=== PATIENT | female | born 1955 | race Caucasian/White ===

== ENCOUNTER 2017-05-24 12:16 | Emergency (ER) | payer MEDICARE, SELFPAY ==
[2017-05-24 12:18] VITALS: BP 151/58; PULSE 71; RESP 16; TEMP 36.2; O2SAT 100; BMI 34.4
--- NOTE | 2017-05-24 12:22 | RAD_ITS ---
STUDY: X-RAY - RIGHT HAND REASON FOR EXAM: Female, 62 years old. Pain and bruising following a fall. TECHNIQUE: 3 view(s) of the hand. COMPARISON: None. FINDINGS: Nondisplaced, comminuted fracture of the distal radial metaphysis with extension to the articular surface. Normal radiocarpal articulation. Normal distal radioulnar joint. Normal visualized carpal bones. Normal carpal articulations Normal carpometacarpal articulation of the thumb. Normal second through fifth carpometacarpal joints. Normal metacarpi. Normal metacarpophalangeal joint of the thumb. Normal interphalangeal joint of the thumb. Normal proximal and distal phalanges of the thumb. Normal metacarpophalangeal joints of the second through fifth fingers. Normal proximal and distal interphalangeal joints of the second through fifth fingers. Normal phalanges of the second through fifth fingers. Soft tissue swelling. RAD/Hand Min 3 Views IMPRESSION: Nondisplaced comminuted fracture of the distal radius with extension to the articular surface. Soft tissue swelling. Electronically Signed: Cristhian Arreaga MD at 12:45 EST Tel [phone], Service support ,
[2017-05-24 12:55] VITALS: BP 145/70; PULSE 80; RESP 14; O2SAT 99
--- NOTE | 2017-05-24 15:31 | CM.ED ---
CM consulted for home health consideration. Discussed home health, PT/OT with patient. Patient states that she cannot drive at this time. Zaid, from [facility] accepts patient with presumed start of care on 05/27/17. Demographics verified by patient. Patient is agreeable with this plan of care. [id number] completed and faxed to [facility]. Noreen delivered platform attachment for rolling walker. Zaid, from [facility], at bedside to discuss start of care for home health services with the patient.
--- NOTE | 2017-05-24 16:03 | ED.DCSUM_ITS ---
- ER Visit Summary Date of Service: 05/24/17 Chief Complaint: Injury right wrist unable to use cane History of Present Illness: The patient is a 62 F right-hand dominant. She fell yesterday injuring her right wrist. She recently had a total knee arthroplasty of her left knee by Dr. Eric St. She states she needs a cane to walk with. She has had difficulty because of the injury to her right wrist. She denies head trauma. She denies neck pain. She denies paresthesia, anesthesia moderates present time of the injury. She is on no anticoagulant. She denies any cardiac restaurant symptoms. She denies hematemesis, melena hematochezia. Physical Examination: Patient is obese with a BMI of 34.4. Head is atraumatic normocephalic. Pupils are equal round reactive. Extraocular muscles are intact. TMs are pearly white with landmarks noted. Nares patent with no drainage. Posterior pharynx without erythema or exudate. Uvula is midline. There is no dysphonia or dysphasia. Trachea is midline. There is no stridor with auscultation of the neck. Heart is regular without murmur, gallop or rub. S1 and S2 are normal. Lungs are clear to auscultation with good movement of air bilaterally. GCS is 15. Patient is alert and oriented ?3. Motor is 5/5. Sensation is intact. DTRs are symmetric without clonus or Babinski. Cranial nerves II through XII are intact. Finger to nose to finger was performed adequately. There is pain palpation of the right wrist over the distal radius. There is no pain the patient over the phalanges, metacarpal bones or carpal bones. There is no pain the patient over the medial lateral epicondyles, olecranon process or radial head. Radial pulses palpable. Test Results: Per nurse protocol hand x-ray was obtained since she has marked ecchymosis swelling over the dorsum of the hand. X-ray interpreted by me reveals a nondisplaced intra-articular fracture of the distal radius. This is nondisplaced. Emergency Department Course and Treatment: Per nursing protocol. Patient was placed in a plaster sugar tong splint for mobilization. Since this is her dominant hand physical therapy was consulted to assess ability to walk with a platform walker since she cannot apply any pressure using her right upper extremity. 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 Treatment Plan: Patient was successful in ambulating with platform walker and arrangements have been made for home visit. Therefore, patient will be discharged to home Disposition: Discharge to home Impression: Nondisplaced distal intra-articular radial fracture right wrist Recent left total knee arthroplasty History of type 2 diabetes History of lupus History of anemia This note was generated with [employer] dictation software. It may contain incorrect words, spelling, and punctuation that were not noted in review of the chart prior to signing ED Disposition - Plan for ED Patient: Disposition: Home or Assisted Living Chief Complaint: Fall Instructions: ED Fx Colles Wrist No Redu Requ Referrals: Steve Turcios MD [Primary Care Provider] - Eric St MD [STAFF PHYSICIAN] - 5-7 Days
[2017-05-24 16:09] VITALS: BP 112/73; PULSE 73; RESP 16; O2SAT 96
== END 2017-05-24 16:09 | disposition home or self-care (01) ==
PROVIDERS: Emergency Provider Emergency Medicine; Family Provider Family Medicine; PCP Family Medicine
DX: S52.571A Other intraarticular fracture of lower end of right radius, initial encounter for closed fracture (principal); M32.9 Systemic lupus erythematosus, unspecified; M06.9 Rheumatoid arthritis, unspecified; E11.9 Type 2 diabetes mellitus without complications; D64.9 Anemia, unspecified; E66.9 Obesity, unspecified; Z68.34 Body mass index [BMI] 34.0-34.9, adult; Z79.4 Long term (current) use of insulin; Z79.899 Other long term (current) drug therapy; Z96.652 Presence of left artificial knee joint
CPT/HCPCS: 29125; 73130; 99282

== ENCOUNTER 2017-06-14 12:11 | Day surgery (SDC) | payer MEDICARE, SELFPAY ==
[2017-06-14 12:39] VITALS: BP 125/66; PULSE 83; RESP 16; TEMP 36.6; O2SAT 96; BMI 35.8
[2017-06-14 13:11] LABS: Bedside Glucose 136 mg/dL (70-110)
--- NOTE | 2017-06-14 14:00 | RAD_ITS ---
STUDY: X-RAY - RIGHT WRIST REASON FOR EXAM: Female, 62 years old. Status post open reduction internal fixation. TECHNIQUE: 2 view(s) of the wrist were obtained. COMPARISON: None. FINDINGS: 2 views of the right wrist were obtained intraoperatively on a C-arm for open reduction internal fixation of fracture of the distal radius. There is a side plate and screws in the distal radius. The fluoroscopy time was 20.7 seconds. RAD/Wrist 2 Views IMPRESSION: Intraoperative exam as described above. Electronically Signed: Juan Ramon Reynaga MD at 11:08 EST Tel , Service support ,
[2017-06-14] MEDS: Cefazolin 2 GM in 0.9% Normal Saline 100 ML IV (14:06)
--- NOTE | 2017-06-14 15:24 | RAD_ITS ---
STUDY: X-RAY - RIGHT WRIST REASON FOR EXAM: Female, 62 years old. Foreign body assessment after surgery TECHNIQUE: One view of the RIGHT wrist was obtained. COMPARISON: Right hand images dated May 24, 2017 FINDINGS: Bones: Hardware is now present over the distal shaft of the right radius with anatomic alignment of the fracture. Joints: The visualized joints are unremarkable. Soft tissues: There is mild soft tissue swelling. Foreign body: None RAD/Wrist 2 Views IMPRESSION: There are postsurgical changes in the distal right radius. There is no retained sponge visualized. Electronically Signed: Elisa Reid MD at 16:18 EST Tel Direct: [phone], Service support ,
--- NOTE | 2017-06-14 15:24 | PCM.OPRPT ---
Report of Operation Date of Procedure: 06/14/17 Pre-Operative Diagnosis: Right intra-articular distal radius fracture 2 fragments Post-Operative Diagnosis: Right intra-articular distal radius fracture 2 fragments Surgery/Procedure Performed:: Open reduction internal fixation right distal radius fracture 2 fragments intra-articular Description of Surgical Findings:: well Reduced fracture, antiglide plate software test and validation engineer: Pietro Brooks Type of Anesthesia:: General/Regional Anesthesiologist: Aashish Molina Special Medications: 2 g Ancef Specimen's removed: None Estimated Blood Loss (mL): 10 mL Fluids Replaced: 1 L crystalloid Description of Procedure: The physician economist research assistant was vital throughout this case as an economist research assistant. He offered appropriate traction and visualization of soft tissues. He was important position the patient during the procedure and preoperatively. He was important in helping with traction during reduction of the fracture. Is also vital and closure of the wound and a my direct supervision. 32-year-old female who presented to my office 2-1/2 weeks ago initially with a nondisplaced intra-articular fracture on the ulnar side of the wrist in the lunate fossa. After 2 weeks in the cast she showed significant proximal migration of the fracture and at that time we elected to discuss open reduction internal fixation which was recommended by myself. Risks and benefits were discussed the patient including but not limited to blood loss, DVTs, PEs, neurovascular damage, infection and risks of general anesthesia including loss of life. We also discussed nonunion, malunion and failure of hardware. We also discussed risk of residual stiffness and loss of motion of the wrist. Patient demonstrated understanding was able signed informed consent. Surgery: On the date of the procedure patient's right wrist was marked in the preoperative area. Cast is cut off in the preoperative area. Patient was brought back to the operating room after receiving a block for operative pain control. He was transferred to the table in supine position. Anesthesia assumed control of the C-spine airway remained to control remainder of the procedure. Tourniquet was placed on the right upper arm. All bony prominences are identified well-padded in the right arm was prepped in a sterile fashion while the surgeon scrubbed. Upon reentering the room the right upper extremity was draped in a standard orthopedic fashion. Incision was marked out over the FCR. Esmarch bandage was used to examine at the extremity after timeout was called. During the timeout everyone agreed upon side, site, procedure to be performed, patient's identity and antibiotics given. After the tourniquet was placed up to 250 mmHg patient was taken through skin subcu tissue fat on the fascia. Superficial fascia of the FCR was incised in FCR was retracted ulnarly. The fascia was incised and FPL was retracted ulnarly. Pronator quadratus was identified and released from the radial aspect of the radius. Once this was taken down and retracted ulnarly we are able to identify the fracture in the distal ulnar portion of the distal radius. Fracture did have some early fracture callus which was removed and the fracture was re-created. At this time [id number] clamps were used to reduce the fracture bringing it distally and compressing it. Once this was completed, live fluoroscopy was used to verify the fracture reduction and under live fluoroscopy a K wire was placed across the fracture into the ulna to help maintain the reduction. Once this was done the fracture pointed reduction clamp could be removed and live x-ray verified that the fracture reduction was maintained. Once were happy with our fracture reduction a 2 hole 2.4 mm L plate from [employer] was selected. K wires were used to provisionally fix it. Live x-ray was used to verify the placement of the plate. Once we are happy with this the most proximal slotted screw was placed. This help reduce the fracture the distal plate was conformed to the bone with the plate benders. An additional cortex screw was placed proximally. Live x-ray was then used to verify the fracture reduction. Based on the reduction maneuver and technique of antiglide plate no further screws were needed. At this time the wound was copiously irrigated out normal saline. Wound was then closed in a layer bland fashion using 2-0 Vicryl for the subcuticular layer and final skin closure was done with nylon suture. Xeroform dressing was placed, compressive dressing was placed. Tourniquet was let down. At the time of closure 1 Ray-Chitra was not accounted for an x-ray was taken no Ray-chitra were in the wound. After the x-ray was taken we did identify the placement of the final Ray-Chitra which was on the back table. Her splint was placed. Patient was awakened by anesthesia and transferred to PACU for recovery. Operative plan: Patient is nonweightbearing for a total of 6 weeks. She will return to the office in 2 weeks for wound check, suture removal and to begin physical therapy with range of motion. Grafts/Implants Used: [employer] 2.4 mm 2 hole L plate - Complications none - Admit VTE Documentation VTE Present on Admission: No VTE Mechan Device Prophylaxis: SCD's VTE Pharm Prophylaxis ordered?: No Reason prophylaxis not ordered:: Treatment Not Indicated
--- NOTE | 2017-06-14 15:38 | OP.PCM_ITS ---
Report of Operation Date of Procedure: 06/14/17 Pre-Operative Diagnosis: Right intra-articular distal radius fracture 2 fragments Post-Operative Diagnosis: Right intra-articular distal radius fracture 2 fragments Surgery/Procedure Performed:: Open reduction internal fixation right distal radius fracture 2 fragments intra-articular Description of Surgical Findings:: well Reduced fracture, antiglide plate durable medical equipment repairer: Pietro Brooks Type of Anesthesia:: General/Regional Anesthesiologist: Aashish Molina Special Medications: 2 g Ancef Specimen's removed: None Estimated Blood Loss (mL): 10 mL Fluids Replaced: 1 L crystalloid Description of Procedure: The physician investment sales assistant was vital throughout this case as an investment sales assistant. He offered appropriate traction and visualization of soft tissues. He was important position the patient during the procedure and preoperatively. He was important in helping with traction during reduction of the fracture. Is also vital and closure of the wound and a my direct supervision. 32-year-old female who presented to my office 2-1/2 weeks ago initially with a nondisplaced intra-articular fracture on the ulnar side of the wrist in the lunate fossa. After 2 weeks in the cast she showed significant proximal migration of the fracture and at that time we elected to discuss open reduction internal fixation which was recommended by myself. Risks and benefits were discussed the patient including but not limited to blood loss, DVTs, PEs, neurovascular damage, infection and risks of general anesthesia including loss of life. We also discussed nonunion, malunion and failure of hardware. We also discussed risk of residual stiffness and loss of motion of the wrist. Patient demonstrated understanding was able signed informed consent. Surgery: On the date of the procedure patient's right wrist was marked in the preoperative area. Cast is cut off in the preoperative area. Patient was brought back to the operating room after receiving a block for operative pain control. He was transferred to the table in supine position. Anesthesia assumed control of the C-spine airway remained to control remainder of the procedure. Tourniquet was placed on the right upper arm. All bony prominences are identified well-padded in the right arm was prepped in a sterile fashion while the surgeon scrubbed. Upon reentering the room the right upper extremity was draped in a standard orthopedic fashion. Incision was marked out over the FCR. Esmarch bandage was used to examine at the extremity after timeout was called. During the timeout everyone agreed upon side, site, procedure to be performed, patient's identity and antibiotics given. After the tourniquet was placed up to 250 mmHg patient was taken through skin subcu tissue fat on the fascia. Superficial fascia of the FCR was incised in FCR was retracted ulnarly. The fascia was incised and FPL was retracted ulnarly. Pronator quadratus was identified and released from the radial aspect of the radius. Once this was taken down and retracted ulnarly we are able to identify the fracture in the distal ulnar portion of the distal radius. Fracture did have some early fracture callus which was removed and the fracture was re-created. At this time phsft-[id number] clamps were used to reduce the fracture bringing it distally and compressing it. Once this was completed, live fluoroscopy was used to verify the fracture reduction and under live fluoroscopy a K wire was placed across the fracture into the ulna to help maintain the reduction. Once this was done the fracture pointed reduction clamp could be removed and live x-ray verified that the fracture reduction was maintained. Once were happy with our fracture reduction a 2 hole 2.4 mm L plate from [employer] was selected. K wires were used to provisionally fix it. Live x-ray was used to verify the placement of the plate. Once we are happy with this the most proximal slotted screw was placed. This help reduce the fracture the distal plate was conformed to the bone with the plate benders. An additional cortex screw was placed proximally. Live x-ray was then used to verify the fracture reduction. Based on the reduction maneuver and technique of antiglide plate no further screws were needed. At this time the wound was copiously irrigated out normal saline. Wound was then closed in a layer bland fashion using 2-0 Vicryl for the subcuticular layer and final skin closure was done with nylon suture. Xeroform dressing was placed, compressive dressing was placed. Tourniquet was let down. At the time of closure 1 Ray-Chitra was not accounted for an x-ray was taken no Ray-chitra were in the wound. After the x-ray was taken we did identify the placement of the final Ray-Chitra which was on the back table. Her splint was placed. Patient was awakened by anesthesia and transferred to PACU for recovery. Operative plan: Patient is nonweightbearing for a total of 6 weeks. She will return to the office in 2 weeks for wound check, suture removal and to begin physical therapy with range of motion. Grafts/Implants Used: [employer]ynthes 2.4 mm 2 hole L plate - Complications none - Admit VTE Documentation VTE Present on Admission: No VTE Mechan Device Prophylaxis: SCD's VTE Pharm Prophylaxis ordered?: No Reason prophylaxis not ordered:: Treatment Not Indicated
[2017-06-14 15:43] VITALS: BP 125/66; BP 127/51; PULSE 79; RESP 16; O2SAT 94
[2017-06-14] MEDS: Ketorolac 30 MG/ML Syringe IV (15:55)
[2017-06-14 16:00] VITALS: BP 115/46; BP 125/66; PULSE 70; RESP 16; O2SAT 94
[2017-06-14 16:11] LABS: Bedside Glucose 120 mg/dL (70-110)
[2017-06-14 16:17] VITALS: BP 105/81; BP 125/66; PULSE 69; RESP 16; TEMP 36.4; O2SAT 97
[2017-06-14 16:52] VITALS: BP 125/66
== END 2017-06-14 17:05 | disposition home or self-care (01) ==
LOC: SDC 12:11 → AC 12:14
PROVIDERS: Family Provider Family Medicine; PCP Family Medicine; Visit Provider Specialist
PROC: (CPT 25608; principal; 2017-06-14 13:45)
DX: S52.571A Other intraarticular fracture of lower end of right radius, initial encounter for closed fracture (principal); W19.XXXA Unspecified fall, initial encounter; Y93.9 Activity, unspecified; Y92.9 Unspecified place or not applicable; Y99.9 Unspecified external cause status; E11.9 Type 2 diabetes mellitus without complications; M79.7 Fibromyalgia; E78.00 Pure hypercholesterolemia, unspecified; M51.36 Other intervertebral disc degeneration, lumbar region; M19.90 Unspecified osteoarthritis, unspecified site; G25.81 Restless legs syndrome; K21.9 Gastro-esophageal reflux disease without esophagitis; F32.9 Major depressive disorder, single episode, unspecified; F41.9 Anxiety disorder, unspecified; Z78.0 Asymptomatic menopausal state; Z79.4 Long term (current) use of insulin; Z79.891 Long term (current) use of opiate analgesic; Z79.899 Other long term (current) drug therapy; Z87.891 Personal history of nicotine dependence; Z86.2 Personal history of diseases of the blood and blood-forming organs and certain disorders involving the immune mechanism
CPT/HCPCS: 25608; 64417; 73100; 76000; 82962; J3010; J7120; J2405

== ENCOUNTER → 2017-09-16 15:57 | Outpatient (CLI) | payer MEDICARE, SELFPAY ==
--- NOTE | 2017-09-16 15:57 | DT_ITS ---
This patient was seen during an EMR downtime September 09, 2017 - September 16, 2017. This patient may have a combination of paper and electronic documentation or all paper documentation. All documentation is viewable within the e-chart portion of [facility] for each patient visit.
[2017-09-16 16:55] LABS: Amphetamine Urine VISTA NEGATIVE (<1000 ng/mL); Barbiturate Urine VISTA NEGATIVE (< 200 ng/mL); Benzodiazepine Urine VISTA NEGATIVE (< 200 ng/mL); Cocaine Urine VISTA NEGATIVE (< 300 ng/mL); Ecstacy Urine VISTA NEGATIVE (< 500 ng/mL); Methadone Urine VISTA NEGATIVE (< 300 ng/mL); PCP Urine VISTA NEGATIVE (< 25 ng/mL); THC Urine VISTA NEGATIVE (< 50 ng/mL); Vista UDS pH Range 7
== END ==
PROVIDERS: Family Provider Family Medicine; PCP Family Medicine; Visit Provider Anesthesiology Pain Medicine
DX: F11.20 Opioid dependence, uncomplicated (principal)
CPT/HCPCS: 80307

== ENCOUNTER → 2017-10-10 11:39 | Outpatient (CLI) | payer MEDICARE, SELFPAY ==
[2017-10-10 12:51] LABS: Absolute Neutrophil Count 5.1 X10^3/uL (2.0-7.7); Basophil# 0.03 X10^3/uL; Basophil% 0.4 % (0-1); Eosinophil# 0.61 X10^3/uL; Eosinophils% 7.8 % (0-5); Hematocrit 39.5 % (37-47); Hemoglobin 11.5 g/dl (12.0-15.0); Lymphocyte % 20.3 % (19-41); Mean Corp Hgb Conc 29.1 g/gl (32-36); Mean Corpuscular Hgb 26.4 pg (27.0-32.0); Mean Corpuscular Volume 90.8 fL (81-99); Mean Platelet Vol. 10.8 fl (6.2-12.0); Monocyte# 0.53 X10^3/uL; Monocyte% 6.7 % (0-10); Neutrophil # 5.08 X10^3/uL (2.7-7.7); Neutrophil % 64.5 % (47-70); Platelet Count 269 K/mm3 (150-450); RBC Distribution Width CV 19.7 % (11.6-14.6); RBC Distribution Width SD 64.6 fl (35.1-43.9); Red Blood Count 4.35 M/mm3 (4.2-5.4); White Blood Count 7.9 K/mm3 (4.4-11.0)
[2017-10-10 12:53] LABS: POSITIVE COUNT NO; POSITIVE DIFFERENTIAL NO; POSITIVE MORPHOLOGY NO
[2017-10-10 13:26] LABS: AST(SGOT) 31 U/L (15-37); Alanine Aminotransfer ALT/SGPT 32 U/L (13-56); Albumin, Serum 3.7 g/dL (3.2-5.0); Alkaline Phosphatase 177 U/L (45-117); Anion Gap 9 (5-15); BUN 14 mg/dL (7-18); BUN/Creat Ratio 19.1 RATIO (10-20); Bilirubin, Direct 0.14 mg/dL (0.00-0.30); Calcium,Total 8.9 mg/dL (8.5-10.1); Chloride 105 mmol/L (98-107); Cholesterol 176 mg/dL (200); Creatinine, Serum 0.73 mg/dL (0.55-1.02); EST Glomerular Filtration Rate 86 mL/min (>60); Est Glom Filt Rate - Afr Amer 104 mL/min (>60); Glucose 69 mg/dL (74-106); High Density Lipoprotein 48 mg/dL; Protein, Total 7.7 g/dL (6.4-8.2); Sodium Level 142 mmol/L (136-145); T4 Total, Thyroxin 12.5 ug/dL (4.8-13.9); Thyroid Stim Hormone (TSH) 1.08 uIU/mL (0.358-3.74); Triglycerides 162 mg/dL; Very Low Density Lipoprotein 32 mg/dL (5-40)
== END ==
PROVIDERS: Family Provider Family Medicine; PCP Family Medicine; Visit Provider Internal Medicine Cardiovascular Disease
DX: E11.9 Type 2 diabetes mellitus without complications (principal); R06.00 Dyspnea, unspecified; M32.9 Systemic lupus erythematosus, unspecified; I51.9 Heart disease, unspecified; I45.10 Unspecified right bundle-branch block; E78.5 Hyperlipidemia, unspecified; E66.01 Morbid (severe) obesity due to excess calories
CPT/HCPCS: 36415; 80048; 80061; 80076; 84436; 84443; 85025

== ENCOUNTER → 2017-10-24 13:25 | Outpatient (CLI) | payer MEDICARE, MEDICAID, SELFPAY ==
--- NOTE | 2017-10-24 13:27 | STE_ITS ---
Reason For Study: Dyspnea On Exertion; Chest Pain Stress Results Protocol: Dobutamine Stress Echo Maximum Predicted HR: 159 bpm Target HR: 135 bpm% Maximum Pre dicted HR: 84 % DurationHeart Rate Stage (mm:ss) (bpm) BPCom ment Baseline 71 169/68 No Chest Pain DSE 10 MCG 3:39 77 147/67No Chest Pain DSE 20 MCG 3:00 10 7 183/72No Chest Pain DSE 30 MCG 3:00 12 9 185/67No Chest Pain DSE 40 MCG 2:03 13 4 186/70No Chest Pain Recovery 100 153/7 4No Chest Pain Stress Duration: 11:42 mm:ss Maximum Stress HR: 134 bpmME TS: 1 Baseline Echocardiogram Findings The estimated ejection fraction is 65 %. Stress Echo Wall motion Data Resting WMIntermediate WMStress WM Resting Wall Motion Wall Motion Stress No regional wall motion No regional wall motion abnormalities noted. abnormalities noted. EKG Data Normal intervals are noted. The patient was titrated from 10 mcg to a maximum of 40 mcg of dobutamine during the stress. The maximum heart rate attained was 134 beats per minute. This was 84% of maximum predicted heart rate. During dobutamine infusion, there were no ST or T wave changes noted to suggest ischemia. No clinical angina was noted. Interpretation Summary The estimated ejection fraction is 65 %. Normal, adequate, dobutamine echocardiogram. Negative for ischemia by EKG and echocardiographic criteria. No anginal symptoms noted. Rare PACs and PVCs during dobutamine. Hypertensive blood pressure response to dobutamine. Final LVEF is 75%. No complications. Ordering Physician: Davey Ocampo Referring Physician: Davey Ocampo Performed By: Adenike Alonso RDCS
== END ==
PROVIDERS: Family Provider Family Medicine; PCP Family Medicine; Visit Provider Internal Medicine Cardiovascular Disease
DX: R06.09 Other forms of dyspnea (principal); I51.9 Heart disease, unspecified; I45.10 Unspecified right bundle-branch block; E66.01 Morbid (severe) obesity due to excess calories
CPT/HCPCS: 93017; 93350; J7030; A4216

== ENCOUNTER 2017-12-18 08:36 | Inpatient (IN) | payer MEDICARE, MEDICAID, SELFPAY ==
[2017-12-18] VITALS (14 sets, daily range): BP systolic 126–157; BP diastolic 47–76; PULSE 61–80; RESP 10–26; TEMP 36.7–37.8; O2SAT 92–99; BMI 38.2; BMI 38.9; BMI 39.0
--- NOTE | 2017-12-18 08:51 | EKG12_ITS ---
Test Reason : ADMIT EKG STIM OFF Blood Pressure : / mmHG Vent. Rate : 073 BPM Atrial Rate : 073 BPM P-R Int : 196 ms QRS Dur : 140 ms QT Int : 420 ms P-R-T Axes : 062 018 029 degrees QTc Int : 462 ms Normal sinus rhythm Right bundle branch block Abnormal ECG When compared with ECG of 26-MAR-2017 10:01, No significant change was found Confirmed by JEISON YIN, NIKKI ([id number]), purchasing expeditor EDI JONES ([id number]) on 12/23/2017 3:57:15 PM Referred By: DR RODRIGUEZ Confirmed By:NIKKI MCHUGH MD
--- NOTE | 2017-12-18 08:51 | RAD_ITS ---
STUDY: X-RAY CHEST REASON FOR EXAM: Female, 62 years old. Cough. TECHNIQUE: PA and lateral views of the chest. COMPARISON: Comparison is made with prior study dated November 26, 2016. FINDINGS: EKG electrodes are seen. Electrodes from a TENS unit are seen. The tip is at the T7-T8 level. There now is evidence of a consolidation in the right upper lobe and in the superior segment of the right lower lobe. Follow-up is recommended. There is no demonstrated pleural abnormality. Normal size heart. Normal mediastinum and robert. Normal visualized pulmonary arteries. There is atherosclerotic calcification of the aortic arch with tortuosity. Normal visualized thoracic spine. Normal visualized ribs, clavicles, and shoulders. There is no demonstrated abnormality of the visualized soft tissue structures of the upper abdomen. RAD/Chest PA and Lateral IMPRESSION: Consolidation in the right upper lobe and superior segment of the right lower lobe. Follow-up is recommended. Electronically Signed: Cristhian Arreaga MD at 10:30 EDT Tel [phone], Service support ,
--- NOTE | 2017-12-18 08:54 | ED.DCSUM_ITS ---
- ER Visit Summary Date of Service: 12/18/17 Chief Complaint: Cough History of Present Illness: The patient is a [address] Turcios and Dr. Sommers. She reports she has a cough began approximately 1 week ago. Is nonproductive. She has had subjective fever and chills. She reports that she has moderate to severe shortness of breath. This is worsened by exertion. She does not use an inhaler. She does not smoke. She reports she has chest pain with coughing only. Physical Examination: Vitals: Stable. Afebrile. General: Well-nourished and well-developed. Head: Normocephalic atraumatic. Neck: Supple, no lymphadenopathy. No JVD. Nontender. Cardiovascular: Regular rate and rhythm. No murmurs. Respiratory: Mild respiratory distress. Rhonchi bilaterally. Mild end expiratory wheezing with decreased air movement. Abdominal: Soft, nontender, nondistended, normal bowel sounds. No guarding, rebound, or peritoneal signs. Back: Nontender. Extremities: Nontender, no edema. Skin: Normal color, no rash. Neurologic: Alert and oriented ?3. Cranial nerves II through XII are intact. Normal strength and sensation. Psych: Normal affect. Test Results: CBC is remarkable for a white count of 15.7 with 87 neutrophils and 5 lymphocytes. Hemoglobin is 11.3. Chem-7 is more for BUN of 25, creatinine 1.34, glucose 144. Lactic acid is 2.3. Chest x-ray shows right upper and lower lobe infiltrates. Emergency Department Course and Treatment: Patient had an IV placed. She was given albuterol, Atrovent aerosols. She was given Solu-Medrol and morphine IV. Patient had blood cultures obtained. She was given Rocephin and Zithromax IV. Treatment Plan: Patient will be discussed with the hospitalist and admitted for further evaluation and treatment. Disposition: Admitted in improved condition. Impression: 1. Pneumonia, community-acquired. 2. Severe sepsis. 3. Acute renal insufficiency. 4. Critical care time 30 minutes. This note was generated with [employer] dictation software. It may contain incorrect words, spelling, and punctuation that were not noted in review of the chart prior to signing ED Disposition - Plan for ED Patient: Chief Complaint: Shortness of Breath Referrals: Steve Turcois MD [Primary Care Provider] -
[2017-12-18] MEDS: Morphine 4 MG/ML Syringe IV (09:01)
[2017-12-18] MEDS: MethylPREDNISolone 125 MG/2 ML Vial IV (09:01)
[2017-12-18 09:26] LABS: Absolute Lymphocyte Count 0.82 X10^3/ul (0.83-4.51); Absolute Neutrophil Count 13.8 X10^3/uL (2.0-7.7); Basophil# 0.02 X10^3/uL; Basophil% 0.1 % (0-1); Eosinophil# 0.59 X10^3/uL; Eosinophils% 3.8 % (0-5); Hematocrit 38.4 % (37-47); Hemoglobin 11.3 g/dl (12.0-15.0); Lymphocyte # 0.82 X10^3/ul (4.0); Lymphocyte % 5.2 % (19-41); Mean Corp Hgb Conc 29.4 g/gl (32-36); Mean Corpuscular Volume 91.9 fL (81-99); Monocyte# 0.41 X10^3/uL; Monocyte% 2.6 % (0-10); Neutrophil # 13.76 X10^3/uL (2.7-7.7); Platelet Count 235 K/mm3 (150-450); RBC Distribution Width CV 16.7 % (11.6-14.6); RBC Distribution Width SD 56.4 fl (35.1-43.9); Red Blood Count 4.18 M/mm3 (4.2-5.4); White Blood Count 15.7 K/mm3 (4.4-11.0)
[2017-12-18 09:27] LABS: POSITIVE COUNT NO; POSITIVE DIFFERENTIAL NO; POSITIVE MORPHOLOGY NO
[2017-12-18 09:37] LABS: Anion Gap 12 (5-15); BUN 25 mg/dL (7-18); BUN/Creat Ratio 18.7 RATIO (10-20); Calcium,Total 9.3 mg/dL (8.5-10.1); Chloride 103 mmol/L (98-107); Creatinine, Serum 1.34 mg/dL (0.55-1.02); EST Glomerular Filtration Rate 43 mL/min (>60); Est Glom Filt Rate - Afr Amer 52 mL/min (>60); Estimated Creatinine Clearance 39.67 ml/min; Glucose 144 mg/dL (74-106); Potassium 3.7 mmol/L (3.5-5.1); Sodium Level 140 mmol/L (136-145)
[2017-12-18 09:42] LABS: Lactic Acid 2.3 mmol/L (0.4-2.0)
--- NOTE | 2017-12-18 09:42 | ED.RN ---
lactic acid 2.[address] lab[address] lee aware
--- NOTE | 2017-12-18 10:45 | PCM.HP.STD ---
Problem List (1) Severe sepsis Status: Acute (2) CAP (community acquired pneumonia) Status: Acute (3) Dyspnea on exertion Status: Acute (4) Diastolic dysfunction Status: Chronic (5) Right bundle branch block Status: Chronic (6) Obesity, morbid, BMI 40.0-49.9 Status: Chronic (7) Lupus Status: Chronic (8) Hyperlipidemia Status: Chronic (9) Diabetes mellitus, type II Status: Chronic History of Present Illness Date of Admission: 12/18/17 Chief Complaint: Shortness of breath The patient is a 62 year old F past medical history significant for rheumatoid arthritis, SLE who presented with shortness of breath. Patient symptoms started about 10 days prior to her admission with a cough which has remained nonproductive. She did experience episodes of intermittent fever as well as chills. Patient also did not increasing fatigue. On the morning of her admission woke up with significant shortness of breath therefore presented to the emergency department. An assessment of severe sepsis secondary to community-acquired pneumonia was made antibiotics and fluids initiated to call and patient admitted to the stepdown unit for subsequent management Past Medical History Past Medical History (Chronic Problems): Chronic Problems (Last Updated 10/08/17 @ 13:30 by Mary Bustamante) Diastolic dysfunction (Chronic) Right bundle branch block (Chronic) Obesity, morbid, BMI 40.0-49.9 (Chronic) Lupus (Chronic) Hyperlipidemia (Chronic) Diabetes mellitus, type II (Chronic) Medical History: Medical History (Last Updated 10/08/17 @ 13:30 by Mary Bustamante) Diastolic dysfunction (Chronic) I51.9 Right bundle branch block (Chronic) I45.10 Obesity, morbid, BMI 40.0-49.9 (Chronic) E66.01 Lupus (Chronic) M32.9 Hyperlipidemia (Chronic) E78.5 Diabetes mellitus, type II (Chronic) E11.9 Anemia D64.9 Anxiety F41.9 Chronic pain G89.29 DDD (degenerative disc disease) Depression F32.9 Esophagitis K20.9 Fibromyalgia M79.7 GI bleed K92.2 Osteoarthritis M19.90 Peripheral neuropathy G62.9 Rheumatoid arteritis I00 Rheumatoid arthritis M06.9 Allergies No Known Allergies Allergy (Verified 12/18/17 08:38) Home Medications: Ambulatory Orders Medication Instructions Recorded Fluoxetine [Prozac] 60 mg PO DAILY 06/24/17 Furosemide [Lasix] 20 mg PO DAILY 09/29/16 Gabapentin [Neurontin] 300 mg PO TID 09/29/16 Hydroxychloroquine [Plaquenil] 200 mg PO DAILYCM 09/29/16 Insulin Glargine [Lantus SoloStar 64 units SC QHS 09/29/16 Pen] Insulin Lispro [Humalog KwikPen] 5 unit SQ TIDCM 09/29/16 Metformin HCl [Metformin HCl ER] 500 mg PO BID 09/29/16 Omeprazole [Prilosec] 40 mg PO DAILY 09/29/16 Pravastatin [Pravachol] 20 mg PO QHS 09/29/16 buPROPion XL [Wellbutrin Xl] 150 mg PO DAILY 09/29/16 Meloxicam 7.5 mg PO DAILY 03/26/17 cholecalciferol (vitamin D3) 50,000 unit PO QWEEK 10/07/17 50,000 unit capsule morphine ER 15 mg tablet,extended 15 mg PO Q12H tab 10/07/17 release tizanidine 4 mg capsule 4 mg PO BID cap 10/07/17 Surgical History: Surgical History (Last Reviewed 12/18/17 @ 11:31 by Bryan Bowers MD) H/O repair of right rotator cuff Z98.890 History of carpal tunnel surgery Z98.890 History of left heart catheterization Onset Date: 08/01/07 Z98.890 History of lumbar fusion Z98.1 History of open reduction and internal fixation (ORIF) procedure Z98.890 right ankle History of total knee replacement Z96.659 History of tubal ligation Z98.51 Hx of cholecystectomy Z90.49 S/P insertion of spinal cord stimulator Z98.890 Surgical History: cholecystectomy, - - Back surgery (fusion, rods) x 2, R ankle surgery, R shoulder surgery, BL wrist CT release. 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 FORM MAKER history Smoking Status: Former smoker - *Family History Maternal Family History: Family History (Last Reviewed 10/08/17 @ 13:23 by Mary Bustamnate) Father Cancer Mother Hypertension History Items: No pertinent history Review of Systems Constitutional: Reports: Anorexia, Chills, Fever, Fatigue HEENT: Denies: Head Aches, Sinus Congestion, Sinus Drainage Respiratory: Reports: Cough, Pleuritic Pain, Shortness of Breath Gastrointestinal: Denies: Abdominal Pain, Hematemesis, Hematochezia, Nausea, Melena, Vomiting Genitourinary: Denies: Dysuria, Frequency, Hematuria, Urgency Musculoskeletal: Denies: Joint Pain, Joint Tenderness Skin: Denies: Rash Neurological: Denies: Focal weakness, Numbness, Tingling Psychiatric: Denies: Homicidal Ideations, Suicidal Ideations Hematologic/ Lymphatic: Denies: Easy Bruising, Easy Bleeding VTE Information - Inpt Only VTE Present on Admission: No VTE Mechan Device Prophylaxis: Knee High NORAH Hose VTE Pharm Prophylaxis ordered?: Yes Patient Problems: Active and Suspected Problems (Last Updated 10/08/17 @ 13:30 by Mary Bustamante) Severe sepsis (Acute) CAP (community acquired pneumonia) (Acute) Objective: GENERAL: Child appears ill looking HEENT: Clear conjunctiva, NECK; supple, normal thyroid, CHEST: Diminished to auscultation bilaterally, HEART: Regular S1 S2, no audible murmurs ABDOMEN: soft, non-tender, normoactive bowel sounds, RECTAL: deferred EXTREMITIES: No edema, no clubbing, no cyanosis. 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 SKIN: No Rash - Physical Exam Vital Signs Temp Pulse Resp BP Pulse Ox 100.1 F H 78 12 153/64 H 94 12/18/17 08:37 12/18/17 09:07 12/18/17 09:07 12/18/17 08:37 12/18/17 08:37 Oxygen Flow Rate (L/min) 2 Oxygen Delivery Method Nasal Cannula Weight: 104.326 kg Body Mass Index (BMI) 38.2 Finger Stick Blood Glucose 216 Laboratory Tests Past 24 Hrs 12/18/17 12/18/17 12/18/17 09:07 09:07 09:07 WBC 15.7 H RBC 4.18 L Hgb 11.3 L Hct 38.4 MCV 91.9 MCH 27.0 MCHC 29.4 L RDW 16.7 H RDW Differential 56.4 H Plt Count 235 MPV 10.0 Immature Gran % (Auto) 0.300 Neut % (Auto) 88.0 H Lymph % (Auto) 5.2 L Oliver % (Auto) 2.6 Eos % (Auto) 3.8 Baso % (Auto) 0.1 Absolute Neuts (auto) 13.8 H Absolute Lymphs (auto) 0.82 L Total Counted Not Reportable Sodium 140 Potassium 3.7 Chloride 103 Carbon Dioxide 25.0 Anion Gap 12 BUN 25 H Creatinine 1.34 H Estim Creat Clear Calc 39.67 Est GFR (MDRD) Af Amer 52 L Est GFR (MDRD) Non-Af 43 L BUN/Creatinine Ratio 18.7 Glucose 144 H Lactic Acid 2.3 H Calcium 9.3 Assessment/Plan All Active Problems (Last Updated 10/08/17 @ 13:30 by Mary Bustamante) Severe sepsis (Acute) CAP (community acquired pneumonia) (Acute) Dyspnea on exertion (Acute) Patient is a 62-year-old lady with multiple comorbidities presented with shortness of breath; imaging studies on admission demonstrated Consolidation in the right upper lobe and superior segment of the right lower lobe. Assessment of severe sepsis secondary to community-acquired pneumonia made. Patient admitted to stepdown unit for subsequent management 1. Severe sepsis secondary to community-acquired pneumonia. Patient has been admitted to stepdown unit being managed per protocol with broad-spectrum antibiotic therapy with Rocephin as well as Levaquin, cultures have been obtained in the ED. Patient also did receive IV fluid resuscitation 2. Community-acquired pneumonia with suspected streptococcal pneumonia patient was started on Rocephin and Levaquin admitted to the stent dilated management as discussed above 3. Acute kidney injury secondary to suspected ATN from sepsis. On IV fluids with monitoring of electrolyte 4. Systemic lupus patient is on Plaquenil did continue 5. Diabetes mellitus type II: Placed on long acting insulin, Accu-Cheks a.c. and at bedtime and covered with sliding scale insulin 5. Rheumatoid arthritis 6. Chronic pain syndrome secondary to patient's underlying rheumatoid and lupus 7. Degenerative joint disease 8. Morbid obesity with BMI of 30.3 9. Dyslipidemia-patient is on statin therapy, continued at home dose 10. DVT prophylaxis SC Lovenox Clinical Impression(s) from Imaging Studies Chest X-Ray 12/18/17 08:51 IMPRESSION: Consolidation in the right upper lobe and superior segment of the right lower lobe. Follow-up is recommended. Electronically Signed: Cristhian Arreaga MD at 10:30 EDT Tel [phone], Service support , Code Visit Inpatient E&M: [id number] Subs Hosp L3
[2017-12-18] MEDS: Ceftriaxone 1 GM/50 ML BAG IV ×2 (10:56→21:58)
[2017-12-18] MEDS: 0.9% Normal Saline 1,000 ML 999 ML IV (10:57)
[2017-12-18] MEDS: Ipratropium/Albuterol Sulfate 3 ML AMPUL.NEB INHALATION ×3 (11:18→19:53)
[2017-12-18 12:10] LABS: Bedside Glucose 126 mg/dL (70-110)
[2017-12-18] MEDS: Gabapentin 300 MG Capsule PO ×2 (13:02→16:22)
[2017-12-18] MEDS: Insulin Lispro 100 UNIT/ML INSULN.PEN SC ×2 (13:03→16:22)
[2017-12-18 13:12] LABS: Reflex Lactate? Y
[2017-12-18 14:02] LABS: Color, Urine Yellow (Yellow); Glucose, Dipstick Normal (Normal); Ketone-Dipstick Negative (Negative); Leukocyte Esterase-Dipstick Negative /ul (Negative); Nitrite-Dipstick Negative (Negative); Occult Blood-Urine Negative /ul (Negative); Protein-Dipstick 15 mg/dl (Negative); Urine Bilirubin Dipstick Negative (Negative); Urine Clarity Clear (Clear); Urine Urobilinogen Normal (Normal); Urine pH 6.5 (5.0 - 8.0)
[2017-12-18 14:50] LABS: Lactic Acid 3.3 mmol/L (0.4-2.0)
[2017-12-18] MEDS: Insulin Lispro 100 UNIT/ML INSULN.PEN SQ ×2 (16:26→22:07)
[2017-12-18 16:31] LABS: Bedside Glucose 275 mg/dL (70-110)
[2017-12-18] MEDS: Pravastatin 20 MG Tablet PO (22:02)
[2017-12-18] MEDS: tiZANidine HCl 2 MG Tablet 4 MG PO (22:02)
[2017-12-18] MEDS: Docusate Sodium 100 MG Capsule PO (22:02)
[2017-12-18] MEDS: guaiFENesin 1,200 MG Tablet 1200 MG PO (22:03)
[2017-12-18] MEDS: morphine SR 15 MG Tablet PO (22:12)
[2017-12-18 22:56] LABS: Bedside Glucose 222 mg/dL (70-110)
[2017-12-19] VITALS (14 sets, daily range): BP systolic 106–147; BP diastolic 46–69; PULSE 54–72; RESP 16–20; TEMP 36.6–36.8; O2SAT 98–100
[2017-12-19] MEDS: Ipratropium/Albuterol Sulfate 3 ML AMPUL.NEB INHALATION ×4 (02:28→19:16)
[2017-12-19 05:31] LABS: Hematocrit 34.1 % (37-47); Hemoglobin 10.3 g/dl (12.0-15.0); Mean Corp Hgb Conc 30.2 g/gl (32-36); Mean Corpuscular Hgb 27.9 pg (27.0-32.0); Mean Corpuscular Volume 92.4 fL (81-99); Mean Platelet Vol. 10.5 fl (6.2-12.0); Platelet Count 221 K/mm3 (150-450); RBC Distribution Width CV 16.9 % (11.6-14.6); RBC Distribution Width SD 54.3 fl (35.1-43.9); Red Blood Count 3.69 M/mm3 (4.2-5.4); White Blood Count 22.2 K/mm3 (4.4-11.0)
[2017-12-19 05:33] LABS: Scan Indicated on CBC? Y/N NO
[2017-12-19 05:48] LABS: Anion Gap 9 (5-15); BUN 23 mg/dL (7-18); BUN/Creat Ratio 22.5 RATIO (10-20); Calcium,Total 8.9 mg/dL (8.5-10.1); Chloride 111 mmol/L (98-107); Creatinine, Serum 1.02 mg/dL (0.55-1.02); EST Glomerular Filtration Rate 58 mL/min (>60); Est Glom Filt Rate - Afr Amer 71 mL/min (>60); Estimated Creatinine Clearance 52.12 ml/min; Glucose 194 mg/dL (74-106); Potassium 4.5 mmol/L (3.5-5.1); Sodium Level 143 mmol/L (136-145)
[2017-12-19 07:01] LABS: Bedside Glucose 170 mg/dL (70-110)
[2017-12-19] MEDS: tiZANidine HCl 2 MG Tablet 4 MG PO ×2 (08:28→22:25)
[2017-12-19] MEDS: buPROPion (XL) 150 MG TABLET.XL PO (08:28)
[2017-12-19] MEDS: morphine SR 15 MG Tablet PO ×2 (08:28→22:24)
[2017-12-19] MEDS: Ceftriaxone 1 GM/50 ML BAG IV ×2 (08:28→22:28)
[2017-12-19] MEDS: Hydroxychloroquine 200 MG Tablet PO (08:29)
[2017-12-19] MEDS: Famotidine 20 MG Tablet PO (08:29)
[2017-12-19] MEDS: Insulin Lispro 100 UNIT/ML INSULN.PEN SC ×3 (08:29→17:02)
[2017-12-19] MEDS: Enoxaparin 40 MG/0.4 ML Syringe SC (08:29)
[2017-12-19] MEDS: guaiFENesin 1,200 MG Tablet 1200 MG PO ×2 (08:29→22:24)
[2017-12-19] MEDS: Gabapentin 300 MG Capsule PO ×3 (08:29→17:03)
[2017-12-19] MEDS: Insulin Lispro 100 UNIT/ML INSULN.PEN SQ ×2 (08:29→12:17)
[2017-12-19] MEDS: Pantoprazole Sodium 40 MG Tablet PO (08:29)
[2017-12-19] MEDS: Docusate Sodium 100 MG Capsule PO ×2 (08:29→22:21)
--- NOTE | 2017-12-19 10:21 | PCM.PN.HOSP ---
Patient Problems: Active and Suspected Problems (Last Updated 10/08/17 @ 13:30 by Mary Bustamante) Severe sepsis (Acute) CAP (community acquired pneumonia) (Acute) Subjective: Patient is a 62-year-old lady with multiple comorbidities presented with shortness of breath; imaging studies on admission demonstrated Consolidation in the right upper lobe and superior segment of the right lower lobe. Assessment of severe sepsis secondary to community-acquired pneumonia made. Patient admitted to stepdown unit for subsequent management 12/19/2017: Patient seen apparently treated with ambulation with oxygen level dropping to 83. Still has pleuritic chest pain as well as a nonproductive cough Objective: GENERAL: appears ill looking HEENT: Clear conjunctiva, NECK; supple, normal thyroid, CHEST: Diminished to auscultation bilaterally, HEART: Regular S1 S2, no audible murmurs ABDOMEN: soft, non-tender, normoactive bowel sounds, RECTAL: deferred EXTREMITIES: No edema, no clubbing, no cyanosis. 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 SKIN: No Rash Vitals/I&O's: Vital Signs Temp Pulse Resp BP Pulse Ox 98.3 F 56 L 18 123/46 H 98 12/19/17 03:35 12/19/17 07:33 12/19/17 06:46 12/19/17 03:35 12/19/17 06:46 Oxygen Flow Rate (L/min) 1 Oxygen Delivery Method Nasal Cannula Weight: 106.2 kg Body Mass Index (BMI) 38.9 Intake and Output for Last 24 Hours 12/17/17 12/18/17 12/19/17 23:59 23:59 23:59 Intake Total 1618 / 1618 120 / 120 Output Total 1999 / 1999 300 / 300 Balance -382 / -382 -180 / -180 Microbiology Past 72 Hours 12/18/17 13:50 Urine, Clean Catch Legionella Antigen - Final 12/18/17 13:50 Urine, Clean Catch Streptococcus pneumoniae Antigen (M - Final 12/18/17 12:50 Mucosa - Nose Influenza Types A,B Direct FA (BARBARA) - Final Laboratory Results 12/18/17 11:43: POC Glucose 126 H 12/18/17 13:47: Lactic Acid 3.3 H 12/18/17 13:50: Urine Color Yellow, Urine Clarity Clear, Urine pH 6.5, Ur Specific [place] 1.010, Urine Protein 15 H, Urine Glucose (UA) Normal, Urine Ketones Negative, Urine Occult Blood Negative, Urine Nitrite Negative, Urine Bilirubin Negative, Urine Urobilinogen Normal, Ur Leukocyte Esterase Negative 12/18/17 16:26: POC Glucose 275 H 12/18/17 22:06: POC Glucose 222 H 12/19/17 05:10: WBC 22.2 H, RBC 3.69 L, Hgb 10.3 L, Hct 34.1 L, MCV 92.4, MCH 27.9, MCHC 30.2 L, RDW 16.9 H, RDW Differential 54.3 H, Plt Count 221, MPV 10.5 12/19/17 05:10: Sodium 143, Potassium 4.5, Chloride 111 H, Carbon Dioxide 23.0, Anion Gap 9, BUN 23 H, Creatinine 1.02, Estim Creat Clear Calc 52.12, Est GFR (MDRD) Af Amer 71, Est GFR (MDRD) Non-Af 58 L, BUN/Creatinine Ratio 22.5 H, Glucose 194 H, Calcium 8.9 12/19/17 06:45: POC Glucose 170 H Current Medications Acetaminophen (Tylenol) 650 mg PO Q4H PRN PRN PRN Reason: FEVER Albuterol Sulfate (Ventolin Aerosols) 2.5 mg INHALATION Q2H PRN PRN PRN Reason: SHORTNESS OF BREATH Albuterol/Ipratropium (Duoneb) 3 ml INHALATION Q6H.RT [facility] Last Admin: 12/19/17 06:46 Dose: 3 ml Bupropion HCl (Wellbutrin Xl) 150 mg PO DAILY [facility] Last Admin: 12/19/17 08:28 Dose: 150 mg Dextrose (D50w Syringe) 0 gm IV X1 PRN; Protocol PRN Reason: Hypoglycemia Docusate Sodium (Colace) 100 mg PO BID [facility] Last Admin: 12/19/17 08:29 Dose: 100 mg Enoxaparin Sodium (Lovenox) 40 mg SC DAILY@1000 [facility] Last Admin: 12/19/17 08:29 Dose: 40 mg Famotidine (Pepcid) 20 mg PO DAILY [facility] Last Admin: 12/19/17 08:29 Dose: 20 mg Gabapentin (Neurontin) 300 mg PO TIDCM [facility] Last Admin: 12/19/17 08:29 Dose: 300 mg Glucagon () 1 mg IM .X1 PRN PRN Reason: Hypoglycemia Guaifenesin (Mucinex) 1,200 mg PO BID [facility] Last Admin: 12/19/17 08:29 Dose: 1,200 mg Hydroxychloroquine Sulfate (Plaquenil) 200 mg PO DAILYCM [facility] Last Admin: 12/19/17 08:29 Dose: 200 mg Sodium Chloride () 500 mls @ 999 mls/hr IV .Q31M ONE Last Admin: 12/18/17 09:01 Dose: 999 mls/hr Ceftriaxone Sodium (Rocephin) 1 gm in 50 mls @ 100 mls/hr IV Q12 [facility] Last Admin: 12/19/17 08:28 Dose: 100 mls/hr Potassium Chloride/Sodium Chloride () 1,000 mls @ 150 mls/hr IV .Q6H40M [facility] Stop: 12/20/17 00:39 Last Admin: 12/19/17 04:48 Dose: 150 mls/hr Insulin Glargine (Lantus (Bkc)) 64 units SC QHS [facility] Last Admin: 12/18/17 22:11 Dose: 64 u Insulin Human Lispro (Humalog Kwikpen (Bkc)) 5 unit SC TIDCM [facility] Last Admin: 12/19/17 08:29 Dose: 5 u Insulin Human Lispro (Humalog Kwikpen (Bkc)) 0 unit SQ ACHS [facility] PRN Reason: Protocol Last Admin: 12/19/17 08:29 Dose: 2 u Magnesium Hydroxide (Milk Of Magnesia) 30 ml PO DAILY PRN PRN PRN Reason: Constipation Morphine Sulfate () 2 - 4 mg IV Q3H PRN PRN PRN Reason: Severe Pain (pain scale 6-10) Morphine Sulfate (Ms Contin) 15 mg PO Q12 [facility] Last Admin: 12/19/17 08:28 Dose: 15 mg Morphine Sulfate () 2 - 4 mg IV Q3H PRN PRN PRN Reason: Severe Pain (pain scale 6-10) Oxycodone HCl (Oxyir) 5 mg PO Q4H PRN PRN PRN Reason: Moderate Pain (pain scale 4-5) Pantoprazole Sodium (Protonix) 40 mg PO DAILY [facility] Last Admin: 12/19/17 08:29 Dose: 40 mg Pravastatin Sodium (Pravachol) 20 mg PO QHS [facility] Last Admin: 12/18/17 22:02 Dose: 20 mg Psyllium Hydrophilic Mucilloid (Metamucil) 1 packet PO DAILY PRN PRN PRN Reason: Constipation Sodium Chloride () 5 - 30 ml IV UD PRN PRN Reason: SALINE FLUSH Tizanidine HCl (Zanaflex) 4 mg PO BID [facility] Last Admin: 12/19/17 08:28 Dose: 4 mg Zolpidem Tartrate (Ambien (Generic)) 5 mg PO QHS PRN PRN PRN Reason: SLEEP Medical Necessity - Tobacco Use Smoking Status: Former smoker Assessment/Plan All Active Problems (Last Updated 10/08/17 @ 13:30 by Mary Bustamante) Severe sepsis (Acute) CAP (community acquired pneumonia) (Acute) Dyspnea on exertion (Acute) Patient is a 62-year-old lady with multiple comorbidities presented with shortness of breath; imaging studies on admission demonstrated Consolidation in the right upper lobe and superior segment of the right lower lobe. Assessment of severe sepsis secondary to community-acquired pneumonia made. Patient admitted to stepdown unit for subsequent management 1. Severe sepsis secondary to community-acquired pneumonia. Patient has been admitted to stepdown unit being managed per protocol with broad-spectrum antibiotic therapy with Rocephin as well as Levaquin, cultures have been obtained in the ED. Patient also did receive IV fluid resuscitation 2. Community-acquired pneumonia with suspected streptococcal pneumonia patient was started on Rocephin and Levaquin admitted to the stent dilated management as discussed above 3. Acute kidney injury secondary to suspected ATN from sepsis. On IV fluids with monitoring of electrolyte 4. Systemic lupus patient is on Plaquenil did continue 5. Diabetes mellitus type II: Placed on long acting insulin, Accu-Cheks a.c. and at bedtime and covered with sliding scale insulin 5. Rheumatoid arthritis 6. Chronic pain syndrome secondary to patient's underlying rheumatoid and lupus 7. Degenerative joint disease 8. Morbid obesity with BMI of 30.3 9. Dyslipidemia-patient is on statin therapy, continued at home dose 10. DVT prophylaxis SC Lovenox Active Medications Acetaminophen (Tylenol) 650 mg PO Q4H PRN PRN PRN Reason: FEVER Albuterol Sulfate (Ventolin Aerosols) 2.5 mg INHALATION Q2H PRN PRN PRN Reason: SHORTNESS OF BREATH Albuterol/Ipratropium (Duoneb) 3 ml INHALATION Q6H.RT [facility] Last Admin: 12/19/17 06:46 Dose: 3 ml Bupropion HCl (Wellbutrin Xl) 150 mg PO DAILY [facility] Last Admin: 12/19/17 08:28 Dose: 150 mg Dextrose (D50w Syringe) 0 gm IV X1 PRN; Protocol PRN Reason: Hypoglycemia Docusate Sodium (Colace) 100 mg PO BID [facility] Last Admin: 12/19/17 08:29 Dose: 100 mg Enoxaparin Sodium (Lovenox) 40 mg SC DAILY@1000 [facility] Last Admin: 12/19/17 08:29 Dose: 40 mg Famotidine (Pepcid) 20 mg PO DAILY [facility] Last Admin: 12/19/17 08:29 Dose: 20 mg Gabapentin (Neurontin) 300 mg PO TIDCM [facility] Last Admin: 12/19/17 08:29 Dose: 300 mg Glucagon () 1 mg IM .X1 PRN PRN Reason: Hypoglycemia Guaifenesin (Mucinex) 1,200 mg PO BID [facility] Last Admin: 12/19/17 08:29 Dose: 1,200 mg Hydroxychloroquine Sulfate (Plaquenil) 200 mg PO DAILYCM [facility] Last Admin: 12/19/17 08:29 Dose: 200 mg Sodium Chloride () 500 mls @ 999 mls/hr IV .Q31M ONE Last Admin: 12/18/17 09:01 Dose: 999 mls/hr Ceftriaxone Sodium (Rocephin) 1 gm in 50 mls @ 100 mls/hr IV Q12 [facility] Last Admin: 12/19/17 08:28 Dose: 100 mls/hr Potassium Chloride/Sodium Chloride () 1,000 mls @ 150 mls/hr IV .Q6H40M [facility] Stop: 12/20/17 00:39 Last Admin: 12/19/17 04:48 Dose: 150 mls/hr Insulin Glargine (Lantus (Bkc)) 64 units SC QHS [facility] Last Admin: 12/18/17 22:11 Dose: 64 u Insulin Human Lispro (Humalog Kwikpen (Bkc)) 5 unit SC TIDCM [facility] Last Admin: 12/19/17 08:29 Dose: 5 u Insulin Human Lispro (Humalog Kwikpen (Bkc)) 0 unit SQ ACHS [facility] PRN Reason: Protocol Last Admin: 12/19/17 08:29 Dose: 2 u Magnesium Hydroxide (Milk Of Magnesia) 30 ml PO DAILY PRN PRN PRN Reason: Constipation Morphine Sulfate () 2 - 4 mg IV Q3H PRN PRN PRN Reason: Severe Pain (pain scale 6-10) Morphine Sulfate (Ms Contin) 15 mg PO Q12 [facility] Last Admin: 12/19/17 08:28 Dose: 15 mg Morphine Sulfate () 2 - 4 mg IV Q3H PRN PRN PRN Reason: Severe Pain (pain scale 6-10) Oxycodone HCl (Oxyir) 5 mg PO Q4H PRN PRN PRN Reason: Moderate Pain (pain scale 4-5) Pantoprazole Sodium (Protonix) 40 mg PO DAILY [facility] Last Admin: 12/19/17 08:29 Dose: 40 mg Pravastatin Sodium (Pravachol) 20 mg PO QHS [facility] Last Admin: 12/18/17 22:02 Dose: 20 mg Psyllium Hydrophilic Mucilloid (Metamucil) 1 packet PO DAILY PRN PRN PRN Reason: Constipation Sodium Chloride () 5 - 30 ml IV UD PRN PRN Reason: SALINE FLUSH Tizanidine HCl (Zanaflex) 4 mg PO BID [facility] Last Admin: 12/19/17 08:28 Dose: 4 mg Zolpidem Tartrate (Ambien (Generic)) 5 mg PO QHS PRN PRN PRN Reason: SLEEP Clinical Impression(s) from Imaging Studies Chest X-Ray 12/18/17 08:51 IMPRESSION: Consolidation in the right upper lobe and superior segment of the right lower lobe. Follow-up is recommended. Electronically Signed: Cristhian Arreaga MD at 10:30 EDT Tel [phone], Service support , Code Visit Inpatient E&M: [id number] [facility] Hosp L3
--- NOTE | 2017-12-19 10:26 | PN_ITS ---
Patient Problems: Active and Suspected Problems (Last Updated 10/08/17 @ 13:30 by Mary Bustamante) Severe sepsis (Acute) CAP (community acquired pneumonia) (Acute) Subjective: Patient is a 62-year-old lady with multiple comorbidities presented with shortness of breath; imaging studies on admission demonstrated Consolidation in the right upper lobe and superior segment of the right lower lobe. Assessment of severe sepsis secondary to community-acquired pneumonia made. Patient admitted to stepdown unit for subsequent management 12/19/2017: Patient seen apparently treated with ambulation with oxygen level dropping to 83. Still has pleuritic chest pain as well as a nonproductive cough Objective: GENERAL: appears ill looking HEENT: Clear conjunctiva, NECK; supple, normal thyroid, CHEST: Diminished to auscultation bilaterally, HEART: Regular S1 S2, no audible murmurs ABDOMEN: soft, non-tender, normoactive bowel sounds, RECTAL: deferred EXTREMITIES: No edema, no clubbing, no cyanosis. INSPECTOR PLATING: Awake; no lateralizing signs. SKIN: No Rash Vitals/I&O's: Vital Signs Temp Pulse Resp BP Pulse Ox 98.3 F 56 L 18 123/46 H 98 12/19/17 03:35 12/19/17 07:33 12/19/17 06:46 12/19/17 03:35 12/19/17 06:46 Oxygen Flow Rate (L/min) 1 Oxygen Delivery Method Nasal Cannula Weight: 106.2 kg Body Mass Index (BMI) 38.9 Intake and Output for Last 24 Hours 12/17/17 12/18/17 12/19/17 23:59 23:59 23:59 Intake Total 1618 / 1618 120 / 120 Output Total 1999 / 1999 300 / 300 Balance -382 / -382 -180 / -180 Microbiology Past 72 Hours 12/18/17 13:50 Urine, Clean Catch Legionella Antigen - Final 12/18/17 13:50 Urine, Clean Catch Streptococcus pneumoniae Antigen (M - Final 12/18/17 12:50 Mucosa - Nose Influenza Types A,B Direct FA (BARBARA) - Final Laboratory Results 12/18/17 11:43: POC Glucose 126 H 12/18/17 13:47: Lactic Acid 3.3 H 12/18/17 13:50: Urine Color Yellow, Urine Clarity Clear, Urine pH 6.5, Ur Specific [place] 1.010, Urine Protein 15 H, Urine Glucose (UA) Normal, Urine Ketones Negative, Urine Occult Blood Negative, Urine Nitrite Negative, Urine Bilirubin Negative, Urine Urobilinogen Normal, Ur Leukocyte Esterase Negative 12/18/17 16:26: POC Glucose 275 H 12/18/17 22:06: POC Glucose 222 H 12/19/17 05:10: WBC 22.2 H, RBC 3.69 L, Hgb 10.3 L, Hct 34.1 L, MCV 92.4, MCH 27.9, MCHC 30.2 L, RDW 16.9 H, RDW Differential 54.3 H, Plt Count 221, MPV 10.5 12/19/17 05:10: Sodium 143, Potassium 4.5, Chloride 111 H, Carbon Dioxide 23.0, Anion Gap 9, BUN 23 H, Creatinine 1.02, Estim Creat Clear Calc 52.12, Est GFR ( MDRD) Af Amer 71, Est GFR (MDRD) Non-Af 58 L, BUN/Creatinine Ratio 22.5 H, Glucose 194 H, Calcium 8.9 12/19/17 06:45: POC Glucose 170 H Current Medications Acetaminophen (Tylenol) 650 mg PO Q4H PRN PRN PRN Reason: FEVER Albuterol Sulfate (Ventolin Aerosols) 2.5 mg INHALATION Q2H PRN PRN PRN Reason: SHORTNESS OF BREATH Albuterol/Ipratropium (Duoneb) 3 ml INHALATION Q6H.RT [facility] Last Admin: 12/19/17 06:46 Dose: 3 ml Bupropion HCl (Wellbutrin Xl) 150 mg PO DAILY [facility] Last Admin: 12/19/17 08:28 Dose: 150 mg Dextrose (D50w Syringe) 0 gm IV X1 PRN; Protocol PRN Reason: Hypoglycemia Docusate Sodium (Colace) 100 mg PO BID [facility] Last Admin: 12/19/17 08:29 Dose: 100 mg Enoxaparin Sodium (Lovenox) 40 mg SC DAILY@1000 [facility] Last Admin: 12/19/17 08:29 Dose: 40 mg Famotidine (Pepcid) 20 mg PO DAILY [facility] Last Admin: 12/19/17 08:29 Dose: 20 mg Gabapentin (Neurontin) 300 mg PO TIDCM [facility] Last Admin: 12/19/17 08:29 Dose: 300 mg Glucagon () 1 mg IM .X1 PRN PRN Reason: Hypoglycemia Guaifenesin (Mucinex) 1,200 mg PO BID [facility] Last Admin: 12/19/17 08:29 Dose: 1,200 mg Hydroxychloroquine Sulfate (Plaquenil) 200 mg PO DAILYCM [facility] Last Admin: 12/19/17 08:29 Dose: 200 mg Sodium Chloride () 500 mls @ 999 mls/hr IV .Q31M ONE Last Admin: 12/18/17 09:01 Dose: 999 mls/hr Ceftriaxone Sodium (Rocephin) 1 gm in 50 mls @ 100 mls/hr IV Q12 [facility] Last Admin: 12/19/17 08:28 Dose: 100 mls/hr Potassium Chloride/Sodium Chloride () 1,000 mls @ 150 mls/hr IV .Q6H40M [facility] Stop: 12/20/17 00:39 Last Admin: 12/19/17 04:48 Dose: 150 mls/hr Insulin Glargine (Lantus (Bkc)) 64 units SC QHS [facility] Last Admin: 12/18/17 22:11 Dose: 64 u Insulin Human Lispro (Humalog Kwikpen (Bkc)) 5 unit SC TIDCM [facility] Last Admin: 12/19/17 08:29 Dose: 5 u Insulin Human Lispro (Humalog Kwikpen (Bkc)) 0 unit SQ ACHS [facility] PRN Reason: Protocol Last Admin: 12/19/17 08:29 Dose: 2 u Magnesium Hydroxide (Milk Of Magnesia) 30 ml PO DAILY PRN PRN PRN Reason: Constipation Morphine Sulfate () 2 - 4 mg IV Q3H PRN PRN PRN Reason: Severe Pain (pain scale 6-10) Morphine Sulfate (Ms Contin) 15 mg PO Q12 [facility] Last Admin: 12/19/17 08:28 Dose: 15 mg Morphine Sulfate () 2 - 4 mg IV Q3H PRN PRN PRN Reason: Severe Pain (pain scale 6-10) Oxycodone HCl (Oxyir) 5 mg PO Q4H PRN PRN PRN Reason: Moderate Pain (pain scale 4-5) Pantoprazole Sodium (Protonix) 40 mg PO DAILY [facility] Last Admin: 12/19/17 08:29 Dose: 40 mg Pravastatin Sodium (Pravachol) 20 mg PO QHS [facility] Last Admin: 12/18/17 22:02 Dose: 20 mg Psyllium Hydrophilic Mucilloid (Metamucil) 1 packet PO DAILY PRN PRN PRN Reason: Constipation Sodium Chloride () 5 - 30 ml IV UD PRN PRN Reason: SALINE FLUSH Tizanidine HCl (Zanaflex) 4 mg PO BID [facility] Last Admin: 12/19/17 08:28 Dose: 4 mg Zolpidem Tartrate (Ambien (Generic)) 5 mg PO QHS PRN PRN PRN Reason: SLEEP Medical Necessity - Tobacco Use Smoking Status: Former smoker Assessment/Plan All Active Problems (Last Updated 10/08/17 @ 13:30 by Mary Bustamante) Severe sepsis (Acute) CAP (community acquired pneumonia) (Acute) Dyspnea on exertion (Acute) Patient is a 62-year-old lady with multiple comorbidities presented with shortness of breath; imaging studies on admission demonstrated Consolidation in the right upper lobe and superior segment of the right lower lobe. Assessment of severe sepsis secondary to community-acquired pneumonia made. Patient admitted to stepdown unit for subsequent management 1. Severe sepsis secondary to community-acquired pneumonia. Patient has been admitted to stepdown unit being managed per protocol with broad-spectrum antibiotic therapy with Rocephin as well as Levaquin, cultures have been obtained in the ED. Patient also did receive IV fluid resuscitation 2. Community-acquired pneumonia with suspected streptococcal pneumonia patient was started on Rocephin and Levaquin admitted to the stent dilated management as discussed above 3. Acute kidney injury secondary to suspected ATN from sepsis. On IV fluids with monitoring of electrolyte 4. Systemic lupus patient is on Plaquenil did continue 5. Diabetes mellitus type II: Placed on long acting insulin, Accu-Cheks a.c. and at bedtime and covered with sliding scale insulin 5. Rheumatoid arthritis 6. Chronic pain syndrome secondary to patient's underlying rheumatoid and lupus 7. Degenerative joint disease 8. Morbid obesity with BMI of 30.3 9. Dyslipidemia-patient is on statin therapy, continued at home dose 10. DVT prophylaxis SC Lovenox Active Medications Acetaminophen (Tylenol) 650 mg PO Q4H PRN PRN PRN Reason: FEVER Albuterol Sulfate (Ventolin Aerosols) 2.5 mg INHALATION Q2H PRN PRN PRN Reason: SHORTNESS OF BREATH Albuterol/Ipratropium (Duoneb) 3 ml INHALATION Q6H.RT [facility] Last Admin: 12/19/17 06:46 Dose: 3 ml Bupropion HCl (Wellbutrin Xl) 150 mg PO DAILY [facility] Last Admin: 12/19/17 08:28 Dose: 150 mg Dextrose (D50w Syringe) 0 gm IV X1 PRN; Protocol PRN Reason: Hypoglycemia Docusate Sodium (Colace) 100 mg PO BID [facility] Last Admin: 12/19/17 08:29 Dose: 100 mg Enoxaparin Sodium (Lovenox) 40 mg SC DAILY@1000 [facility] Last Admin: 12/19/17 08:29 Dose: 40 mg Famotidine (Pepcid) 20 mg PO DAILY [facility] Last Admin: 12/19/17 08:29 Dose: 20 mg Gabapentin (Neurontin) 300 mg PO TIDCM [facility] Last Admin: 12/19/17 08:29 Dose: 300 mg Glucagon () 1 mg IM .X1 PRN PRN Reason: Hypoglycemia Guaifenesin (Mucinex) 1,200 mg PO BID [facility] Last Admin: 12/19/17 08:29 Dose: 1,200 mg Hydroxychloroquine Sulfate (Plaquenil) 200 mg PO DAILYCM [facility] Last Admin: 12/19/17 08:29 Dose: 200 mg Sodium Chloride () 500 mls @ 999 mls/hr IV .Q31M ONE Last Admin: 12/18/17 09:01 Dose: 999 mls/hr Ceftriaxone Sodium (Rocephin) 1 gm in 50 mls @ 100 mls/hr IV Q12 [facility] Last Admin: 12/19/17 08:28 Dose: 100 mls/hr Potassium Chloride/Sodium Chloride () 1,000 mls @ 150 mls/hr IV .Q6H40M [facility] Stop: 12/20/17 00:39 Last Admin: 12/19/17 04:48 Dose: 150 mls/hr Insulin Glargine (Lantus (Bkc)) 64 units SC QHS [facility] Last Admin: 12/18/17 22:11 Dose: 64 u Insulin Human Lispro (Humalog Kwikpen (Bkc)) 5 unit SC TIDCM [facility] Last Admin: 12/19/17 08:29 Dose: 5 u Insulin Human Lispro (Humalog Kwikpen (Bkc)) 0 unit SQ ACHS [facility] PRN Reason: Protocol Last Admin: 12/19/17 08:29 Dose: 2 u Magnesium Hydroxide (Milk Of Magnesia) 30 ml PO DAILY PRN PRN PRN Reason: Constipation Morphine Sulfate () 2 - 4 mg IV Q3H PRN PRN PRN Reason: Severe Pain (pain scale 6-10) Morphine Sulfate (Ms Contin) 15 mg PO Q12 [facility] Last Admin: 12/19/17 08:28 Dose: 15 mg Morphine Sulfate () 2 - 4 mg IV Q3H PRN PRN PRN Reason: Severe Pain (pain scale 6-10) Oxycodone HCl (Oxyir) 5 mg PO Q4H PRN PRN PRN Reason: Moderate Pain (pain scale 4-5) Pantoprazole Sodium (Protonix) 40 mg PO DAILY [facility] Last Admin: 12/19/17 08:29 Dose: 40 mg Pravastatin Sodium (Pravachol) 20 mg PO QHS [facility] Last Admin: 12/18/17 22:02 Dose: 20 mg Psyllium Hydrophilic Mucilloid (Metamucil) 1 packet PO DAILY PRN PRN PRN Reason: Constipation Sodium Chloride () 5 - 30 ml IV UD PRN PRN Reason: SALINE FLUSH Tizanidine HCl (Zanaflex) 4 mg PO BID [facility] Last Admin: 12/19/17 08:28 Dose: 4 mg Zolpidem Tartrate (Ambien (Generic)) 5 mg PO QHS PRN PRN PRN Reason: SLEEP Clinical Impression(s) from Imaging Studies Chest X-Ray 12/18/17 08:51 IMPRESSION: Consolidation in the right upper lobe and superior segment of the right lower lobe. Follow-up is recommended. Electronically Signed: Cristhian Arreaga MD at 10:30 EDT Tel [phone], Service support , Code Visit Inpatient E&M: 83796 [facility]
--- NOTE | 2017-12-19 11:00 | CASEMGMT ---
SW met with patient, introduced self and role at [facility]. Patient lives with her 83 yo mom. She uses her can or walker occasionally when she is feeling weak. Patient has no preference for home O2 company if she qualifies for it. She plans on returning home at d/c. Plan: At this time home is the plan. ALVIN/REN following. Guillermina VILLA MSW
[2017-12-19 12:06] LABS: Bedside Glucose 192 mg/dL (70-110)
[2017-12-19 16:50] LABS: Bedside Glucose 129 mg/dL (70-110)
[2017-12-19] MEDS: Pravastatin 20 MG Tablet PO (22:25)
[2017-12-20] VITALS (8 sets, daily range): BP systolic 113–131; BP diastolic 46–63; PULSE 60–78; RESP 16–18; TEMP 36.5–37; O2SAT 96–98
[2017-12-20 01:45] LABS: Bedside Glucose 113 mg/dL (70-110)
[2017-12-20 06:24] LABS: Hematocrit 33.9 % (37-47); Hemoglobin 10.1 g/dl (12.0-15.0); Mean Corp Hgb Conc 29.8 g/gl (32-36); Mean Corpuscular Hgb 27.8 pg (27.0-32.0); Mean Corpuscular Volume 93.4 fL (81-99); Mean Platelet Vol. 10.3 fl (6.2-12.0); Platelet Count 232 K/mm3 (150-450); RBC Distribution Width CV 16.9 % (11.6-14.6); RBC Distribution Width SD 55.4 fl (35.1-43.9); Red Blood Count 3.63 M/mm3 (4.2-5.4); White Blood Count 16.3 K/mm3 (4.4-11.0)
[2017-12-20 06:28] LABS: Scan Indicated on CBC? Y/N NO
[2017-12-20 06:39] LABS: Anion Gap 7 (5-15); BUN 22 mg/dL (7-18); BUN/Creat Ratio 24.7 RATIO (10-20); Chloride 113 mmol/L (98-107); Creatinine, Serum 0.89 mg/dL (0.55-1.02); EST Glomerular Filtration Rate 68 mL/min (>60); Est Glom Filt Rate - Afr Amer 83 mL/min (>60); Estimated Creatinine Clearance 59.73 ml/min; Glucose 89 mg/dL (74-106); Potassium 4.8 mmol/L (3.5-5.1); Sodium Level 143 mmol/L (136-145)
[2017-12-20] MEDS: Ipratropium/Albuterol Sulfate 3 ML AMPUL.NEB INHALATION (06:59)
[2017-12-20 07:42] LABS: Bedside Glucose 66 mg/dL (70-110)
[2017-12-20 07:42] LABS: Bedside Glucose 116 mg/dL (70-110)
[2017-12-20] MEDS: guaiFENesin 1,200 MG Tablet 1200 MG PO (08:32)
[2017-12-20] MEDS: Famotidine 20 MG Tablet PO (08:32)
[2017-12-20] MEDS: tiZANidine HCl 2 MG Tablet 4 MG PO (08:32)
[2017-12-20] MEDS: Pantoprazole Sodium 40 MG Tablet PO (08:32)
[2017-12-20] MEDS: buPROPion (XL) 150 MG TABLET.XL PO (08:32)
[2017-12-20] MEDS: morphine SR 15 MG Tablet PO (08:32)
[2017-12-20] MEDS: Enoxaparin 40 MG/0.4 ML Syringe SC (08:33)
[2017-12-20] MEDS: Gabapentin 300 MG Capsule PO ×2 (08:33→11:35)
[2017-12-20] MEDS: Hydroxychloroquine 200 MG Tablet PO (08:33)
[2017-12-20] MEDS: 0.9% NaCl Peripheral Flush Adult/Peds IV (09:05)
[2017-12-20] MEDS: Ceftriaxone 1 GM/50 ML BAG IV (09:05)
[2017-12-20 11:21] LABS: Bedside Glucose 169 mg/dL (70-110)
[2017-12-20] MEDS: Insulin Lispro 100 UNIT/ML INSULN.PEN SC (11:35)
[2017-12-20] MEDS: Insulin Lispro 100 UNIT/ML INSULN.PEN SQ (11:35)
--- NOTE | 2017-12-20 11:46 | DCINST_ITS ---
- Discharge Diagnoses Current Active Problems: Current Active and Chronic Problems (Last Updated 10/08/17 @ 13:30 by Mary Bustamante) Severe sepsis (Acute) CAP (community acquired pneumonia) (Acute) You will use the following diet at home:: Calorie/Carbohydrate Controlled ( specify 1200, 1400, etc) Discharge Activity: Return to Normal Activity Call your doctor if you observe: Fever of 101 or Higher, Shortness of breath, Dizziness, Fainting spells, Chest pain Allergies/Adverse Reactions: Allergies No Known Allergies Allergy (Verified 12/18/17 08:38) Medications to take at Discharge Fluoxetine [Prozac] 60 mg PO DAILY 09/29/16 Furosemide [Lasix] 20 mg PO DAILY 09/29/16 Gabapentin [Neurontin] 300 mg PO TID 09/29/16 Hydroxychloroquine [Plaquenil] 200 mg PO DAILYCM 09/29/16 Insulin Glargine [Lantus SoloStar Pen] 64 units SC QHS 09/29/16 Insulin Lispro [Humalog KwikPen] 5 unit SQ TIDCM 09/29/16 Metformin HCl [Metformin HCl ER] 500 mg PO BID 09/29/16 Omeprazole [Prilosec] 40 mg PO DAILY 09/29/16 Pravastatin [Pravachol] 20 mg PO QHS 09/29/16 buPROPion XL [Wellbutrin Xl] 150 mg PO DAILY 09/29/16 Meloxicam 7.5 mg PO DAILY 03/26/17 cholecalciferol (vitamin D3) 50,000 unit capsule 50,000 unit PO QWEEK 10/07/17 morphine ER 15 mg tablet,extended release 15 mg PO Q12H tab 10/07/17 tizanidine 4 mg capsule 4 mg PO BID cap 10/07/17 Levofloxacin [Levaquin] 750 mg PO DAILY #5 tab 12/20/17 The following prescriptions were given: Levofloxacin [Levaquin] 750 mg PO DAILY #5 tab Primary Care Physician: Steve Turcios MD [Primary Care Provider] - Please follow up with your Primary Care Physician in: 1 Week Test Results: Test results from this visit will be discussed in further detail at your follow- up appointment, if applicable. Please Follow Up With: Steve Turcios MD Proposed Discharge Date: 12/20/17
--- NOTE | 2017-12-20 12:00 | PCM.DC.SUM ---
<Leanna Issa - Last Filed: 12/20/17 12:19> Discharge Date and Diagnosis Date of Admission: 12/18/17 Date of Discharge: 12/20/17 - Primary Discharge Diagnosis Active and Suspected Problems (Last Updated 10/08/17 @ 13:30 by Mary Bustamante) 1. Severe sepsis secondary to community-acquired right lower lobe pneumonia with suspected streptococcal pneumonia 2. Acute hypoxia secondary to #1 3. Acute kidney injury suspected secondary to ATN from sepsis - Secondary Discharge Diagnosis Chronic Problems (Last Updated 10/08/17 @ 13:30 by Mary Bustamante) Diastolic dysfunction (Chronic) Right bundle branch block (Chronic) Obesity, morbid, BMI 40.0-49.9 (Chronic) Lupus (Chronic) Hyperlipidemia (Chronic) Diabetes mellitus, type II (Chronic) Hospital Course and Treatment Imaging Results: Diagnostic Data Chest X-Ray 12/18/17 08:51 IMPRESSION: Consolidation in the right upper lobe and superior segment of the right lower lobe. Follow-up is recommended. Electronically Signed: Cristhian Arreaga MD at 10:30 EDT Tel [phone], Service support , Operations: None Procedures: None Summary of Care Provided: The patient is a 62 year old F admitted 12/18/2017 due to shortness of breath. She has a past medical history of rheumatoid arthritis, SLE, hyperlipidemia, type 2 diabetes mellitus, diastolic dysfunction. Chest x-ray on admission demonstrated right upper lobe and superior segment of the right lower lobe consolidation. Patient treated with IV azithromycin and IV Rocephin. Severe sepsis secondary to acute community-acquired right lower lobe suspected streptococcal pneumonia. Patient noted to have acute hypoxia secondary to acute community-acquired pneumonia. She is also noted to have acute kidney injury secondary to suspected ATN from sepsis. Acute kidney injury resolved. Hypoxia resolved as well. Walking pulse ox completed prior to discharge and patient did not require further supplemental oxygen. She will be discharged on Levaquin 750 mg for 5 days. Denies further shortness of breath. Denies significant cough. Afebrile. Negative for influenza. Urine for strep and Legionella negative. Blood cultures show no growth in 48 hours. Patient is stable for discharge home on further oral antibiotic therapy. Follow-up with primary care physician in 1 week. Patient seen exam prior to discharge. Alert, oriented, no acute distress. Heart rate regular in rate, no murmur. Lungs clear, diminished. Abdomen soft, nontender, obese. Neuro grossly intact. Normal affect. Skin intact. Vital signs stable. This patient was seen by MICKY Mcconnell under the supervision of Dr. Cho. Discharge Diet: 1800 Calorie Control Diet, Carb Control Diet Discharge Activity: Return to Normal Activity Call your doctor if you observe: Fever of 101 or Higher, Shortness of breath, Dizziness, Fainting spells, Chest pain Home Medications: Medications to take at Discharge Fluoxetine [Prozac] 60 mg PO DAILY 09/29/16 Furosemide [Lasix] 20 mg PO DAILY 09/29/16 Gabapentin [Neurontin] 300 mg PO TID 09/29/16 Hydroxychloroquine [Plaquenil] 200 mg PO DAILYCM 09/29/16 Insulin Glargine [Lantus SoloStar Pen] 64 units SC QHS 09/29/16 Insulin Lispro [Humalog KwikPen] 5 unit SQ TIDCM 09/29/16 Metformin HCl [Metformin HCl ER] 500 mg PO BID 09/29/16 Omeprazole [Prilosec] 40 mg PO DAILY 09/29/16 Pravastatin [Pravachol] 20 mg PO QHS 09/29/16 buPROPion XL [Wellbutrin Xl] 150 mg PO DAILY 09/29/16 Meloxicam 7.5 mg PO DAILY 03/26/17 cholecalciferol (vitamin D3) 50,000 unit capsule 50,000 unit PO QWEEK 10/07/17 morphine ER 15 mg tablet,extended release 15 mg PO Q12H tab 10/07/17 tizanidine 4 mg capsule 4 mg PO BID cap 10/07/17 Levofloxacin [Levaquin] 750 mg PO DAILY #5 tab 12/20/17 Following Prescrptions Were Given to Patient: Levofloxacin [Levaquin] 750 mg PO DAILY #5 tab Primary Care Physician: Steve Turcios MD [Primary Care Provider] - Please follow up with your Primary Care Physician in: 1 Week Please Follow Up With: Steve Turcios MD Disposition: Home Minutes spent on discharge:: 35 Patient Condition:: Stable Medical Necessity - Tobacco Use Smoking Status: Former smoker Meaningful Use Info Meaningful Use Diagnoses (Choose all that apply): None applicable <Chris Cho - Last Filed: 12/20/17 16:04> Discharge Date and Diagnosis - Secondary Discharge Diagnosis Chronic Problems (Last Updated 10/08/17 @ 13:30 by Mary Bustamante) Diastolic dysfunction (Chronic) Right bundle branch block (Chronic) Obesity, morbid, BMI 40.0-49.9 (Chronic) Lupus (Chronic) Hyperlipidemia (Chronic) Diabetes mellitus, type II (Chronic) Hospital Course and Treatment Summary of Care Provided: This patient was seen in conjunction with DENTAL AMALGAM PROCESSORLeanna. I have independently interviewed and examined the patient and reviewed pertinent history, examination findings, laboratory and plan of management. I have reviewed the note and agree with the documented findings with the few additional points. In brief, patient is admitted for sepsis secondary to right lower lobe and right upper lobe, multifocal community-acquired pneumonia was probably streptococcal pneumonia. Patient also had acute kidney injury secondary to ATN from sepsis which was treated. The patient is discharged on Levaquin for 5 more days. I have discussed my assessment with Leanna LYNCH and orders have been reviewed. [] Discharge home medication reconciliation done. Discharge follow-up instructions completed. Total time spent, exact 35 minutes on discharge meds reconciliation, examination, review of imaging and blood test and discussion with the patient on follow-up instructions. Code Visit Inpatient E&M: 35992 [facility]
--- NOTE | 2017-12-20 12:13 | DS.PCM_ITS ---
<Leanna Issa - Last Filed: 12/20/17 12:19> Discharge Date and Diagnosis Date of Admission: 12/18/17 Date of Discharge: 12/20/17 - Primary Discharge Diagnosis Active and Suspected Problems (Last Updated 10/08/17 @ 13:30 by Mary Bustamante) 1. Severe sepsis secondary to community-acquired right lower lobe pneumonia with suspected streptococcal pneumonia 2. Acute hypoxia secondary to #1 3. Acute kidney injury suspected secondary to ATN from sepsis - Secondary Discharge Diagnosis Chronic Problems (Last Updated 10/08/17 @ 13:30 by Mary Bustamante) Diastolic dysfunction (Chronic) Right bundle branch block (Chronic) Obesity, morbid, BMI 40.0-49.9 (Chronic) Lupus (Chronic) Hyperlipidemia (Chronic) Diabetes mellitus, type II (Chronic) Hospital Course and Treatment Imaging Results: Diagnostic Data Chest X-Ray 12/18/17 08:51 IMPRESSION: Consolidation in the right upper lobe and superior segment of the right lower lobe. Follow-up is recommended. Electronically Signed: Cristhian Arreaga MD at 10:30 EDT Tel [phone], Service support , Operations: None Procedures: None Summary of Care Provided: The patient is a 62 year old F admitted 12/18/2017 due to shortness of breath. She has a past medical history of rheumatoid arthritis, SLE, hyperlipidemia, type 2 diabetes mellitus, diastolic dysfunction. Chest x-ray on admission demonstrated right upper lobe and superior segment of the right lower lobe consolidation. Patient treated with IV azithromycin and IV Rocephin. Severe sepsis secondary to acute community-acquired right lower lobe suspected streptococcal pneumonia. Patient noted to have acute hypoxia secondary to acute community-acquired pneumonia. She is also noted to have acute kidney injury secondary to suspected ATN from sepsis. Acute kidney injury resolved. Hypoxia resolved as well. Walking pulse ox completed prior to discharge and patient did not require further supplemental oxygen. She will be discharged on Levaquin 750 mg for 5 days. Denies further shortness of breath. Denies significant cough. Afebrile. Negative for influenza. Urine for strep and Legionella negative. Blood cultures show no growth in 48 hours. Patient is stable for discharge home on further oral antibiotic therapy. Follow-up with primary care physician in 1 week. Patient seen exam prior to discharge. Alert, oriented, no acute distress. Heart rate regular in rate, no murmur. Lungs clear, diminished. Abdomen soft, nontender, obese. Neuro grossly intact. Normal affect. Skin intact. Vital signs stable. This patient was seen by MICKY Mcconnell under the supervision of Dr. Cho. Discharge Diet: 1800 Calorie Control Diet, Carb Control Diet Discharge Activity: Return to Normal Activity Call your doctor if you observe: Fever of 101 or Higher, Shortness of breath, Dizziness, Fainting spells, Chest pain Home Medications: Medications to take at Discharge Fluoxetine [Prozac] 60 mg PO DAILY 09/29/16 Furosemide [Lasix] 20 mg PO DAILY 09/29/16 Gabapentin [Neurontin] 300 mg PO TID 09/29/16 Hydroxychloroquine [Plaquenil] 200 mg PO DAILYCM 09/29/16 Insulin Glargine [Lantus SoloStar Pen] 64 units SC QHS 09/29/16 Insulin Lispro [Humalog KwikPen] 5 unit SQ TIDCM 09/29/16 Metformin HCl [Metformin HCl ER] 500 mg PO BID 09/29/16 Omeprazole [Prilosec] 40 mg PO DAILY 09/29/16 Pravastatin [Pravachol] 20 mg PO QHS 09/29/16 buPROPion XL [Wellbutrin Xl] 150 mg PO DAILY 09/29/16 Meloxicam 7.5 mg PO DAILY 03/26/17 cholecalciferol (vitamin D3) 50,000 unit capsule 50,000 unit PO QWEEK 10/07/17 morphine ER 15 mg tablet,extended release 15 mg PO Q12H tab 10/07/17 tizanidine 4 mg capsule 4 mg PO BID cap 10/07/17 Levofloxacin [Levaquin] 750 mg PO DAILY #5 tab 12/20/17 Following Prescrptions Were Given to Patient: Levofloxacin [Levaquin] 750 mg PO DAILY #5 tab Primary Care Physician: Steve Turcios MD [Primary Care Provider] - Please follow up with your Primary Care Physician in: 1 Week Please Follow Up With: Steve Turcios MD Disposition: Home Minutes spent on discharge:: 35 Patient Condition:: Stable Medical Necessity - Tobacco Use Smoking Status: Former smoker Meaningful Use Info Meaningful Use Diagnoses (Choose all that apply): None applicable <Chris Cho - Last Filed: 12/20/17 16:04> Discharge Date and Diagnosis - Secondary Discharge Diagnosis Chronic Problems (Last Updated 10/08/17 @ 13:30 by Mary Bustamante) Diastolic dysfunction (Chronic) Right bundle branch block (Chronic) Obesity, morbid, BMI 40.0-49.9 (Chronic) Lupus (Chronic) Hyperlipidemia (Chronic) Diabetes mellitus, type II (Chronic) Hospital Course and Treatment Summary of Care Provided: This patient was seen in conjunction with BUSINESS MACHINE OPERATORLeanna. I have independently interviewed and examined the patient and reviewed pertinent history, examination findings, laboratory and plan of management. I have reviewed the note and agree with the documented findings with the few additional points. In brief, patient is admitted for sepsis secondary to right lower lobe and right upper lobe, multifocal community-acquired pneumonia was probably streptococcal pneumonia. Patient also had acute kidney injury secondary to ATN from sepsis which was treated. The patient is discharged on Levaquin for 5 more days. I have discussed my assessment with Leanna LYNCH and orders have been reviewed. [] Discharge home medication reconciliation done. Discharge follow-up instructions completed. Total time spent, exact 35 minutes on discharge meds reconciliation, examination , review of imaging and blood test and discussion with the patient on follow-up instructions. Code Visit Inpatient E&M: 49906 Disch Hosp
--- NOTE | 2017-12-25 14:22 | CASEMGMT ---
RN CM Discharge F/U Phone Call LACE: 10 Strata: 3 Discharge date: 12/20/17 Call date: 12/25/17 Call time: 1422 Attempted to reach pt without success at this time, message left for pt to call this RN CM back if able. SStaten RN CM Admission dx: Severe Sepsis
== END 2017-12-20 12:58 | disposition home or self-care (01) | DRG 871 ==
LOC: ED 08:54 → PCU 11:10
PROVIDERS: Admitting Provider Internal Medicine; Emergency Provider Emergency Medicine; Family Provider Family Medicine; PCP Family Medicine; Visit Provider Internal Medicine
DX: A41.9 Sepsis, unspecified organism (principal); J15.4 Pneumonia due to other streptococci; N17.0 Acute kidney failure with tubular necrosis; R65.20 Severe sepsis without septic shock; R09.02 Hypoxemia; M32.9 Systemic lupus erythematosus, unspecified; I45.10 Unspecified right bundle-branch block; E66.01 Morbid (severe) obesity due to excess calories; E78.5 Hyperlipidemia, unspecified; E11.9 Type 2 diabetes mellitus without complications; Z79.4 Long term (current) use of insulin; Z68.38 Body mass index [BMI] 38.0-38.9, adult; Z87.891 Personal history of nicotine dependence
CPT/HCPCS: 36415; 71046; 80048; 81002; 82962; 83605; 85025; 85027; 87040; 87086; 87449; 87804; 93005; 94640; 97116; 97162; 97530; 97802; 99284; J7030; J7040; A4216

== ENCOUNTER 2018-05-03 07:08 | Inpatient (IN) | payer MEDICARE, MEDICAID, SELFPAY ==
[2018-05-03] VITALS (9 sets, daily range): BP systolic 127–144; BP diastolic 53–74; PULSE 63–87; RESP 12–20; TEMP 36.9–38.6; O2SAT 96–100; BMI 36.0; BMI 35.6
--- NOTE | 2018-05-03 07:23 | EKG12_ITS ---
Test Reason : FALL Blood Pressure : / mmHG Vent. Rate : 079 BPM Atrial Rate : 070 BPM P-R Int : 000 ms QRS Dur : 136 ms QT Int : 402 ms P-R-T Axes : 000 070 039 degrees QTc Int : 460 ms Suspect unspecified pacemaker failure Normal sinus rhythm Right bundle branch block Abnormal ECG Confirmed by JEISON YIN, NIKKI ([id number]), non linear editor EDI JONES ([id number]) on 05/06/2018 2:12:59 PM Referred By: ZOHAIB Confirmed By:NIKKI MCHUGH MD
--- NOTE | 2018-05-03 07:23 | CT_ITS ---
STUDY: CT BRAIN WITHOUT CONTRAST REASON FOR EXAM: Female, 63 years old. Difficulty speaking, fall from bed, confusion RADIATION DOSAGE (If Supplied By Facility): CTDIvol = ( 44.99 ) mGy, DLP = ( 745.49 ) mGycm TECHNIQUE: Transaxial CT imaging of the brain was performed without administration of intravenous contrast material. Individualized dose optimization techniques were used for this CT. COMPARISON: None. FINDINGS: Normal soft tissue structures. Normal calvarium. Normal size ventricles and extra-axial spaces for the patient's age. Normal white matter tracts of the cerebral hemispheres. Normal basal ganglia and thalami. Normal brainstem. Normal cerebellum. There is atherosclerosis of the carotid siphons. There is no intracranial hemorrhage. There are no findings of an acute ischemic infarction. Normal visualized paranasal sinuses. CT/Brain/Head without Contrast IMPRESSION: No acute intracranial hemorrhage or mass effect. Electronically Signed: Gary Staples MD at 8:29 EST , Service support ,
--- NOTE | 2018-05-03 07:32 | ED.DCSUM_ITS ---
- ER Visit Summary Date of Service: 05/03/18 Chief Complaint: Fall, confusion History of Present Illness: The patient is a 63 F who reportedly fell getting out of bed this morning. She states she lost her balance. She reports not feeling well all week. She denies nausea, vomiting, or diarrhea. She does report mild cough. She has not noted a fever at home. There was some question about possible overdose. EMS was advised the family was concerned she may have taken too much of her morphine. Patient states she only took 2 tablets. Physical Examination: Blood pressure is 122/60, temperature 101.4, heart rate 81, respiratory rate 16, pulse ox 96% on room air. When I enter the room patient has been placed on nasal cannula as her O2 sats had dropped into the mid upper 80s on room air. Head and neck examination was no obvious sign of trauma. She has dry mucous membranes. Heart is regular rate and rhythm. Lungs sounds are slightly diminished bilaterally. Abdomen is soft and nontender. Extremity examination significant for ecchymoses to both shins. She has ecchymosis around the left knee. Neuro exam reveals patient to rest with her eyes closed but she will open eyes to voice and answer questions appropriately. Test Results: EKG is sinus at 79 with a right bundle branch block. No acute ST change. CBC was a white count of 10 with 88% neutrophils. Hemoglobin is 9.6. Chemistry studies reveal BUN of 28 and a creatinine of 1.35 which is worsened from baseline. LFTs significant only for an alk phos of 128. Urinalysis shows rare bacteria with 0 white cells. Lactate is 2.1. Influenza swab is negative. Blood cultures were obtained. Portable chest x-ray is read by radiology as no airspace consolidation. I have concerned that she is starting to develop early infiltrate in the right lung. CT head shows no acute hemorrhage or mass-effect. Left knee, left tib-fib, right tib-fib x-rays all revealed no fracture. Pelvis x-ray reveals no pelvis ring fracture or malalignment. Emergency Department Course and Treatment: Patient is given IV fluids and rectal Tylenol. Oxygen has been able to be turned down to 2 L nasal cannula and she is currently satting 99% on this. Patient is more awake and alert. Test results of been discussed with the patient as well as the daughter at bedside. There was initial question that her morphine had recently been increased by her pain management doctor and this was causing her falls. I spoke with the pharmacy at [facility] and she has been on the same dosing regimen for at least the last 3 months. I will speak with hospitalist regarding admission. I will give her an initial dose of Rocephin and Zithromax to cover possible lung pathology. Treatment Plan: [] Disposition: Admit Impression: 1. Fever 2. Multiple falls This note was generated with Everwise dictation software. It may contain incorrect words, spelling, and punctuation that were not noted in review of the chart prior to signing ED Disposition - Plan for ED Patient: Chief Complaint: Fall Referrals: Steve Turcios MD [Primary Care Provider] -
[2018-05-03 07:50] LABS: Absolute Neutrophil Count 8.8 X10^3/uL (2.0-7.7); Basophil# 0.02 X10^3/uL; Basophil% 0.2 % (0-1); Eosinophil# 0.15 X10^3/uL; Eosinophils% 1.5 % (0-5); Hemoglobin 9.6 g/dl (12.0-15.0); Mean Corp Hgb Conc 29.1 g/gl (32-36); Mean Corpuscular Hgb 25.9 pg (27.0-32.0); Mean Corpuscular Volume 88.9 fL (81-99); Mean Platelet Vol. 10.5 fl (6.2-12.0); Neutrophil # 8.81 X10^3/uL (2.7-7.7); Neutrophil % 87.9 % (47-70); Platelet Count 255 K/mm3 (150-450); RBC Distribution Width CV 15.6 % (11.6-14.6); RBC Distribution Width SD 50.1 fl (35.1-43.9); Red Blood Count 3.71 M/mm3 (4.2-5.4)
[2018-05-03 07:52] LABS: POSITIVE COUNT NO; POSITIVE DIFFERENTIAL NO; POSITIVE MORPHOLOGY NO
[2018-05-03 08:05] LABS: AST(SGOT) 16 U/L (15-37); Alanine Aminotransfer ALT/SGPT 22 U/L (13-56); Albumin, Serum 3.2 g/dL (3.2-5.0); Alkaline Phosphatase 128 U/L (45-117); Anion Gap 10 (5-15); BUN 28 mg/dL (7-18); BUN/Creat Ratio 20.7 RATIO (10-20); Bilirubin, Direct 0.14 mg/dL (0.00-0.30); Calcium,Total 8.6 mg/dL (8.5-10.1); Chloride 105 mmol/L (98-107); Creatinine, Serum 1.35 mg/dL (0.55-1.02); EST Glomerular Filtration Rate 42 mL/min (>60); Est Glom Filt Rate - Afr Amer 51 mL/min (>60); Estimated Creatinine Clearance 43.59 ml/min; Globulin 3.8 g/dL (2.2-4.2); Glucose 211 mg/dL (74-106); Potassium 4.2 mmol/L (3.5-5.1); Sodium Level 140 mmol/L (136-145)
--- NOTE | 2018-05-03 08:06 | RAD_ITS ---
STUDY: X-RAY CHEST REASON FOR EXAM: Female, 63 years old. Fever TECHNIQUE: AP COMPARISON: 12/18/2017 FINDINGS: Neurostimulator leads extending to the mid thoracic spine level. The lungs are clear but under expanded. The pulmonary infiltrates on the right side evident on the prior study have resolved. There is no demonstrated pleural abnormality. EKG leads project over the chest. Normal size heart. Normal mediastinum and robert. Normal visualized pulmonary arteries. Normal visualized aortic arch and descending thoracic aorta. No acute bony process. There is no demonstrated abnormality of the visualized soft tissue structures of the upper abdomen. RAD/Chest 1 View (Portable) IMPRESSION: 1. No airspace consolidation or pleural effusion. 2. Hypoinflation. Electronically Signed: Gary Staples MD at 8:46 EST , Service support ,
--- NOTE | 2018-05-03 08:11 | RAD_ITS ---
STUDY: X-RAY - LEFT KNEE REASON FOR EXAM: Female, 63 years old. Pain of the left knee after a fall TECHNIQUE: 4 view(s) of the knee. COMPARISON: 03/26/2017 FINDINGS: Normal visualized distal femur. Normal visualized proximal tibia and fibula. Normal proximal tibiofibular articulation. Knee replacement is in radiographic alignment. Small joint effusion although smaller since prior study. The soft tissue structures are unremarkable. RAD/Knee 4 or More Views IMPRESSION: No fracture or malalignment. Small joint effusion. Electronically Signed: Gary Staples MD at 8:45 EST , Service support ,
--- NOTE | 2018-05-03 08:16 | RAD_ITS ---
STUDY: X-RAY - PELVIS REASON FOR EXAM: Female, 63 years old. Pelvis pain following a fall TECHNIQUE: One view of the pelvis was obtained. COMPARISON: None. FINDINGS: There is a non-specific bowel gas pattern. Normal visualized soft tissue structures. Operative changes of the lumbar spine and neurostimulator device noted. Surgical remy project over the left iliac crest. Normal bilateral iliac wings, sacroiliac joints and visualized sacrum. Normal visualized bilateral superior and inferior pubic rami. Normal pubic symphysis. Normal ischial tuberosities. Normal visualized right femoral head. Normal right acetabulum. Normal right hip joint. Normal visualized left femoral head. Normal left acetabulum. Normal left hip joint. RAD/Pelvis 1 or 2 Views IMPRESSION: No pelvic ring fracture or malalignment. Electronically Signed: Gary Staples MD at 8:48 EST , Service support ,
--- NOTE | 2018-05-03 08:21 | RAD_ITS ---
STUDY: X-RAY - LEFT TIBIA AND FIBULA REASON FOR EXAM: Female, 63 years old. Pain of the left lower leg following a fall TECHNIQUE: AP and lateral view(s) of the tibia and fibula were obtained. COMPARISON: None. FINDINGS: Normal visualized tibia. Normal visualized fibula. Knee replacement is in radiographic alignment. The soft tissue structures are unremarkable. RAD/Tibia & Fibula 2 Views IMPRESSION: No fracture or malalignment. Electronically Signed: Gary Staples MD at 8:47 EST , Service support ,
--- NOTE | 2018-05-03 08:26 | RAD_ITS ---
STUDY: X-RAY - RIGHT TIBIA AND FIBULA REASON FOR EXAM: Female, 63 years old. Pain of the right lower leg after fall TECHNIQUE: AP and lateral view(s) of the tibia and fibula were obtained. COMPARISON: None. FINDINGS: Normal visualized tibia. Normal visualized fibula. The soft tissue structures are unremarkable. RAD/Tibia & Fibula 2 Views IMPRESSION: No fracture or malalignment. Electronically Signed: Gary Staples MD at 8:47 EST , Service support ,
[2018-05-03] MEDS: Acetaminophen 650 MG Suppository RECTAL (08:30)
[2018-05-03] MEDS: 0.9% Normal Saline 1,000 ML 150 ML IV (08:30)
[2018-05-03 08:34] LABS: Lactic Acid 2.1 mmol/L (0.4-2.0)
[2018-05-03 09:06] LABS: Mucous, Urine 0 SEEN /hpf (<or=2+); Red Blood Cells-Urine 0 SEEN /hpf (0-5); White Blood Cells 0 SEEN /hpf (0-5)
[2018-05-03 09:10] LABS: Color, Urine Yellow (Yellow); Glucose, Dipstick Normal (Normal); Ketone-Dipstick Negative (Negative); Leukocyte Esterase-Dipstick Negative /ul (Negative); Nitrite-Dipstick Negative (Negative); Occult Blood-Urine Negative /ul (Negative); Protein-Dipstick 30 mg/dl (Negative); Specific Gravity, Urine 1.015 (1.002-1.030); Urine Bilirubin Dipstick Negative (Negative); Urine Clarity Clear (Clear); Urine Urobilinogen Normal (Normal)
[2018-05-03 09:18] LABS: Squamous Epithelial Cells - UA 0-5 SEEN /hpf (5-10)
[2018-05-03 09:19] LABS: Bacteria RARE /hpf (None Seen); Hyaline Cast 5-10 SEEN /lpf (0-5)
--- NOTE | 2018-05-03 09:44 | NURSING ---
DR BERNABE FOR DR EDWARDS
--- NOTE | 2018-05-03 09:52 | NURSING ---
MED SURG CAP WITH SEPSIS SRINIVASA
--- NOTE | 2018-05-03 09:53 | PCM.HP.STD ---
Problem List (1) Sepsis Status: Acute (2) CAP (community acquired pneumonia) Status: Acute (3) Dyspnea on exertion Status: Acute (4) Obesity, morbid, BMI 40.0-49.9 Status: Chronic (5) Lupus Status: Chronic (6) Hyperlipidemia Status: Chronic (7) Diabetes mellitus, type II Status: Chronic History of Present Illness Date of Admission: 05/03/18 Chief Complaint: Weakness The patient is a 63 year old F with a PMH as below who presents from home after falling out of bed this morning. She says that she has been feeling weak all week as well as short of breath and a mild cough. She did have a fever at home. There was some concern from the daughter that this could possibly do be an overdose due to pain meds she is on at home. Also she has had an admission in December for community-acquired pneumonia that she was treated for. In the ER she was found to have a temperature of 101.4 with a respiratory rate of 20. Chest x-ray is hypoinflated and therefore not a great study to determine whether or not she has a consolidation. She does not have a leukocytosis but she does have a left shift as well as a lactate of 2.1 and a creatinine of 1.35 which is elevated for her. Also because of her fall she has had multiple imaging studies and her CT brain was negative and all of the x-rays were negative for fracture. She does appear somnolent and is difficult to get a detailed history from her, and the daughter was not at bedside so most of the history was obtained from chart review. Past Medical History Past Medical History (Chronic Problems): Chronic Problems (Last Updated 10/08/17 @ 13:30 by Mary Bustamante) Diastolic dysfunction (Chronic) Right bundle branch block (Chronic) Obesity, morbid, BMI 40.0-49.9 (Chronic) Lupus (Chronic) Hyperlipidemia (Chronic) Diabetes mellitus, type II (Chronic) Medical History: Medical History (Last Updated 10/08/17 @ 13:30 by Mary Bustamante) Diastolic dysfunction (Chronic) I51.9 Right bundle branch block (Chronic) I45.10 Obesity, morbid, BMI 40.0-49.9 (Chronic) E66.01 Lupus (Chronic) M32.9 Hyperlipidemia (Chronic) E78.5 Diabetes mellitus, type II (Chronic) E11.9 Anemia D64.9 Anxiety F41.9 Chronic pain G89.29 DDD (degenerative disc disease) Depression F32.9 Esophagitis K20.9 Fibromyalgia M79.7 GI bleed K92.2 Osteoarthritis M19.90 Peripheral neuropathy G62.9 Rheumatoid arteritis I00 Rheumatoid arthritis M06.9 Allergies No Known Allergies Allergy (Verified 05/03/18 07:09) Home Medications: Ambulatory Orders Medication Instructions Recorded Fluoxetine [Prozac] 60 mg PO DAILY 09/29/16 Furosemide [Lasix] 20 mg PO DAILY 09/29/16 Gabapentin [Neurontin] 300 mg PO TID 09/29/16 Hydroxychloroquine [Plaquenil] 200 mg PO DAILYCM 09/29/16 Insulin Glargine [Lantus SoloStar 64 units SC QHS 09/29/16 Pen] Insulin Lispro [Humalog KwikPen] 5 unit SQ TIDCM 09/29/16 Metformin HCl [Metformin HCl ER] 500 mg PO BID 09/29/16 Omeprazole [Prilosec] 40 mg PO DAILY 09/29/16 Pravastatin [Pravachol] 20 mg PO QHS 09/29/16 buPROPion XL [Wellbutrin Xl] 150 mg PO DAILY 09/29/16 Meloxicam 7.5 mg PO DAILY 03/26/17 cholecalciferol (vitamin D3) 50,000 unit PO QWEEK 10/07/17 50,000 unit capsule morphine ER 15 mg tablet,extended 15 mg PO Q12H tab 10/07/17 release tizanidine 4 mg capsule 4 mg PO BID cap 10/07/17 Albuterol Inhaler [Ventolin Hfa 2 puff INHALATION Q4H PRN PRN 05/03/18 (SP)] Benzonatate [Tessalon Perle] 100 mg PO TID PRN PRN 05/03/18 Surgical History: Surgical History (Last Reviewed 12/18/17 @ 11:31 by Bryan Bowers MD) H/O repair of right rotator cuff Z98.890 History of carpal tunnel surgery Z98.890 History of left heart catheterization Onset Date: 08/01/07 Z98.890 History of lumbar fusion Z98.1 History of open reduction and internal fixation (ORIF) procedure Z98.890 right ankle History of total knee replacement Z96.659 History of tubal ligation Z98.51 Hx of cholecystectomy Z90.49 S/P insertion of spinal cord stimulator Z98.890 Surgical History: cholecystectomy, - - Back surgery (fusion, rods) x 2, R ankle surgery, R shoulder surgery, BL wrist CT release. 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 Denies: Chills, Weight Change HEENT: Denies: Head Aches, Sinus Congestion, Sinus Drainage Cardiovascular: Denies: Chest Pain, Palpitations Respiratory: Reports: Shortness of Breath. Denies: Cough, Shortness of breath at rest, Sputum production Gastrointestinal: Denies: Abdominal Pain, Nausea, Vomiting Genitourinary: Denies: Dysuria Musculoskeletal: Denies: Joint Pain, Joint Tenderness Skin: Denies: Rash, Wounds Neurological: Denies: Numbness, Tingling, Focal weakness Psychiatric: Denies: Anxiety, Depression Hematologic/ Lymphatic: Denies: Easy Bruising, Easy Bleeding VTE Information - Inpt Only VTE Present on Admission: No Patient Problems: Active and Suspected Problems (Last Updated 10/08/17 @ 13:30 by Mary Bustamante) Sepsis (Acute) - Physical Exam General: Oriented x3, Cooperative, No apparent distress, - - Somnolent HEENT: Atraumatic, EOMI, Normocephalic Oral: Dry Mucosa Neck: Supple, No JVD, Trachea Midline Lungs: Clear to auscultation, Normal air movement, No rhonchi, No wheeze, No rales, Diminished Cardiovascular: Regular rate, Regular Rhythm, Normal S1, Normal S2, No murmurs, No rub noted, No Gallop Abdomen: Soft, Non Tender, Non-Distended, No Hepato-splenomegaly Extremities: No edema, Capillary Refill Less than 3 Seconds Skin: No rashes, No breakdown Neurological: Deep Tendon Reflexes 2+/4 and Symmetrical, Sensory exam intact to light touch and pain - Bilateral lower extremity neuropathy which is chronic, - - Bilateral upper and lower extremity is 3-4 out of 5. Psych/Mental Status: Flat Affect, - - Somnolent Vital Signs Temp Pulse Resp BP Pulse Ox 100.3 F H 74 18 127/74 H 98 05/03/18 09:44 05/03/18 09:44 05/03/18 09:44 05/03/18 09:44 05/03/18 09:44 Oxygen Flow Rate (L/min) 2 Oxygen Delivery Method Nasal Cannula Weight: 236 lb 15.951 oz Body Mass Index (BMI) 36.0 Finger Stick Blood Glucose 216 Microbiology Past 72 Hours 05/03/18 07:50 Influenza Types A,B Direct FA (BARBARA) - Final Mucosa - Nose Laboratory Tests Past 24 Hrs 05/03/18 05/03/18 05/03/18 07:35 07:35 07:35 WBC 10.0 RBC 3.71 L Hgb 9.6 L Hct 33.0 L MCV 88.9 MCH 25.9 L MCHC 29.1 L RDW 15.6 H RDW Differential 50.1 H Plt Count 255 MPV 10.5 Immature Gran % (Auto) 0.400 Neut % (Auto) 87.9 H Lymph % (Auto) 7.0 L Coffee % (Auto) 3.0 Eos % (Auto) 1.5 Baso % (Auto) 0.2 Absolute Neuts (auto) 8.8 H Absolute Lymphs (auto) 0.70 L Total Counted Not Reportable Sodium 140 Potassium 4.2 Chloride 105 Carbon Dioxide 25.0 Anion Gap 10 BUN 28 H Creatinine 1.35 H Estim Creat Clear Calc 43.59 Est GFR (MDRD) Af Amer 51 L Est GFR (MDRD) Non-Af 42 L BUN/Creatinine Ratio 20.7 H Glucose 211 H Lactic Acid 2.1 H Calcium 8.6 Total Bilirubin 0.40 Direct Bilirubin 0.14 AST 16 ALT 22 Alkaline Phosphatase 128 H Total Protein 7.0 Albumin 3.2 Globulin 3.8 Urine Color Urine Clarity Urine pH Ur Specific [place] Urine Protein Urine Glucose (UA) Urine Ketones Urine Occult Blood Urine Nitrite Urine Bilirubin Urine Urobilinogen Ur Leukocyte Esterase Urine RBC Urine WBC Ur Squamous Epith Cells Urine Bacteria Hyaline Casts Urine Mucus 05/03/18 09:00 WBC RBC Hgb Hct MCV MCH MCHC RDW RDW Differential Plt Count MPV Immature Gran % (Auto) Neut % (Auto) Lymph % (Auto) Coffee % (Auto) Eos % (Auto) Baso % (Auto) Absolute Neuts (auto) Absolute Lymphs (auto) Total Counted Sodium Potassium Chloride Carbon Dioxide Anion Gap BUN Creatinine Estim Creat Clear Calc Est GFR (MDRD) Af Amer Est GFR (MDRD) Non-Af BUN/Creatinine Ratio Glucose Lactic Acid Calcium Total Bilirubin Direct Bilirubin AST ALT Alkaline Phosphatase Total Protein Albumin Globulin Urine Color Yellow Urine Clarity Clear Urine pH 6.0 Ur Specific [place] 1.015 Urine Protein 30 H Urine Glucose (UA) Normal Urine Ketones Negative Urine Occult Blood Negative Urine Nitrite Negative Urine Bilirubin Negative Urine Urobilinogen Normal Ur Leukocyte Esterase Negative Urine RBC 0 SEEN Urine WBC 0 SEEN Ur Squamous Epith Cells 0-5 SEEN Urine Bacteria RARE Hyaline Casts 5-10 SEEN Urine Mucus 0 SEEN Assessment/Plan All Active Problems (Last Updated 10/08/17 @ 13:30 by Mary Bustamante) Sepsis (Acute) Severe sepsis (Acute) CAP (community acquired pneumonia) (Acute) Dyspnea on exertion (Acute) 1. Sepsis secondary to possible community-acquired pneumonia on the right/FRANSISCA -She was given a dose of Rocephin and is with her will transition to Unasyn and azithromycin -We will continue with IV fluids and recheck her lactate which on admission was 2.1 -Baseline creatinine is around 0.8, current creatinine is 1.35 will recheck in the morning -IVF at 100 cc/h -Given her somnolence and her poor effort on her chest x-ray we will check an ABG for possible initiation of BiPAP 2. DM 2 -We will start on sliding scale insulin -Hold metformin 3. RA/chronic pain syndrome/lupus -Stable -Continue with her Plaquenil, will hold her narcotics and Mobic given her hypoventilation and her AK I 4. Depression/anxiety -Stable -Continue with her Wellbutrin and her Prozac 5. HTN/HLD -Blood pressure stable -Hold her Lasix but can continue her statin 6. GERD -Stable -Continue with home PPI DVT: Lovenox Code Visit Inpatient E&M: 11347 Init Hosp L3
[2018-05-03] MEDS: Ceftriaxone 1 GM/50 ML BAG IV (10:40)
[2018-05-03 11:45] LABS: Reflex Lactate? Y
--- NOTE | 2018-05-03 11:45 | CASEMGMT ---
ALONA MCCLURE Face to Face with patient for initial transition planning/care coordination assessment. RN CM introduced self and role at [facility]. Patient lying in bed, alert and oriented, daughter at bedside. Patient willing to participate in assessment and is able to answer all questions appropriately. Care providers, pharmacy, and demographics verified. Patient states she is not sure where she wants to go at discharge. Patient states she's willing to go to SNF if needed. Will monitor PT/OT. SW updated regarding potential placement, patient states her first choice is [facility] Patient states he has no further needs or concerns at this time. CM to follow for discharge planning needs that may arise. PCP: Tam Specialists: Tootie, pain specialist. Preferred Pharmacy: [facility] Insurance: [employer] Prescription Benefit: Yes Living Will/HPOA: Yes, daughter Ludmila Albert LNOK: Mother, daughter Living Arrangements: Patient lives with mother and daughter lives across the street. Patient normally independent. Daughter reports patient is falling more frequently Transportation: self/daughter DME/HHC: Patient has cane and walker at home. [facility]. Has been to [facility] previously. Disposition Plan: TBD, pending PT/OT. Brinda FOLEY, RN, CM
[2018-05-03] MEDS: Insulin Lispro 100 UNIT/ML INSULN.PEN SQ (12:21)
[2018-05-03] MEDS: Insulin Lispro 100 UNIT/ML INSULN.PEN SC ×2 (12:21→17:11)
[2018-05-03] MEDS: Enoxaparin 40 MG/0.4 ML Syringe SC (12:22)
[2018-05-03 12:30] LABS: Bedside Glucose 177 mg/dL (70-110)
[2018-05-03 12:35] LABS: Lactic Acid 1.1 mmol/L (0.4-2.0)
[2018-05-03 14:10] LABS: Base Excess 0 mmol/L (-2 to +2); Bicarbonate 25.9 mmol/L (22-26); Blood Gas Specimen Type ART; O2 Delivery Device Nasal Can; PO2 104 mmHG (75-100); SITE R Radial; SO2 97 % (95-99); Time Given 1400; Total Carbon Dioxide 28 mmol/L; pCO2 52.4 mmHg (35-45)
[2018-05-03] MEDS: 0.9% Normal Saline 1,000 ML 100 ML IV (17:12)
[2018-05-03] MEDS: Gabapentin 300 MG Capsule PO (17:13)
[2018-05-03 17:21] LABS: Bedside Glucose 108 mg/dL (70-110)
[2018-05-03] MEDS: Pravastatin 20 MG Tablet PO (22:04)
[2018-05-03 22:11] LABS: Bedside Glucose 117 mg/dL (70-110)
[2018-05-04] VITALS (13 sets, daily range): BP systolic 128–154; BP diastolic 48–86; PULSE 63–75; RESP 12–18; TEMP 36.5–37.3; O2SAT 97–100
[2018-05-04] MEDS: 0.9% Normal Saline 1,000 ML 100 ML IV (03:39)
[2018-05-04 05:56] LABS: Absolute Lymphocyte Count 1.42 X10^3/ul (0.83-4.51); Absolute Neutrophil Count 6.8 X10^3/uL (2.0-7.7); Basophil# 0.03 X10^3/uL; Basophil% 0.3 % (0-1); Eosinophils% 2.2 % (0-5); Hematocrit 32.3 % (37-47); Hemoglobin 9.3 g/dl (12.0-15.0); Lymphocyte # 1.42 X10^3/ul (4.0); Lymphocyte % 15.8 % (19-41); Mean Corp Hgb Conc 28.8 g/gl (32-36); Mean Corpuscular Hgb 26.1 pg (27.0-32.0); Mean Corpuscular Volume 90.5 fL (81-99); Mean Platelet Vol. 10.6 fl (6.2-12.0); Monocyte# 0.59 X10^3/uL; Monocyte% 6.5 % (0-10); Neutrophil # 6.75 X10^3/uL (2.7-7.7); Platelet Count 225 K/mm3 (150-450); RBC Distribution Width CV 15.6 % (11.6-14.6); RBC Distribution Width SD 50.4 fl (35.1-43.9); Red Blood Count 3.57 M/mm3 (4.2-5.4)
[2018-05-04 06:06] LABS: POSITIVE COUNT NO; POSITIVE DIFFERENTIAL NO; POSITIVE MORPHOLOGY NO
[2018-05-04 06:37] LABS: Anion Gap 7 (5-15); BUN 13 mg/dL (7-18); BUN/Creat Ratio 17.6 RATIO (10-20); Calcium,Total 8.3 mg/dL (8.5-10.1); Chloride 113 mmol/L (98-107); Creatinine, Serum 0.74 mg/dL (0.55-1.02); EST Glomerular Filtration Rate 85 mL/min (>60); Est Glom Filt Rate - Afr Amer 103 mL/min (>60); Estimated Creatinine Clearance 73.79 ml/min; Glucose 128 mg/dL (74-106); Potassium 3.7 mmol/L (3.5-5.1); Sodium Level 145 mmol/L (136-145)
--- NOTE | 2018-05-04 08:12 | PCM.PN.HOSP ---
Patient Problems: Active and Suspected Problems (Last Updated 10/08/17 @ 13:30 by Mary Bustamante) Sepsis (Acute) Subjective: She is much more alert today and conversational. She denies any pain at the moment. Vitals/I&O's: Vital Signs Temp Pulse Resp BP Pulse Ox 99.1 F 70 18 154/67 H 98 05/04/18 03:36 05/04/18 04:15 05/04/18 03:36 05/04/18 03:36 05/04/18 07:32 Oxygen Flow Rate (L/min) 1 Oxygen Delivery Method Nasal Cannula Weight: 220 lb 10.923 oz Body Mass Index (BMI) 35.6 Finger Stick Blood Glucose 216 Intake and Output for Last 24 Hours 05/02/18 05/03/18 05/04/18 23:59 23:59 23:59 Intake Total 1675 / 1675 629 / 629 Output Total 875 / 875 800 / 800 Balance 800 / 800 -171 / -171 General: Alert, oriented x3, Cooperative, No apparent distress, HEENT: Atraumatic, EOMI, Normocephalic Oral: Dry Mucosa Neck: Supple, No JVD, Trachea Midline Lungs: Clear to auscultation, Normal air movement, No rhonchi, No wheeze, No rales, Diminished Cardiovascular: Regular rate, Regular Rhythm, Normal S1, Normal S2, No murmurs, No rub noted, No Gallop Abdomen: Soft, Non Tender, Non-Distended, No Hepato-splenomegaly Extremities: No edema, Capillary Refill Less than 3 Seconds Skin: No rashes, No breakdown Neurological: Deep Tendon Reflexes 2+/4 and Symmetrical, Sensory exam intact to light touch and pain - 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 Psych/Mental Status: Flat Affect, appropriate Microbiology Past 72 Hours 05/03/18 07:50 Mucosa - Nose Influenza Types A,B Direct FA (BARBARA) - Final Laboratory Results 05/03/18 07:35: Lactic Acid 2.1 H 05/03/18 09:00: Urine Color Yellow, Urine Clarity Clear, Urine pH 6.0, Ur Specific [place] 1.015, Urine Protein 30 H, Urine Glucose (UA) Normal, Urine Ketones Negative, Urine Occult Blood Negative, Urine Nitrite Negative, Urine Bilirubin Negative, Urine Urobilinogen Normal, Ur Leukocyte Esterase Negative, Urine RBC 0 SEEN, Urine WBC 0 SEEN, Ur Squamous Epith Cells 0-5 SEEN, Urine Bacteria RARE, Hyaline Casts 5-10 SEEN, Urine Mucus 0 SEEN 05/03/18 12:00: Lactic Acid 1.1 05/03/18 12:19: POC Glucose 177 H 05/03/18 14:04: Specimen Type ART, Sample Site R Radial, pH 7.30 L, Bicarbonate Actual 25.9, POC Total CO2 28, Base Excess 0, O2 Saturation 97, ABG pCO2 52.4 H, ABG pO2 104 H, Kenneth Test NA, O2 Delivery Device Nasal Can, Liter Flow 2.0, Blood Gas Notified Whom MARIAMA YIN, Blood Gas Notified Time 1400 05/03/18 17:10: POC Glucose 108 05/03/18 21:44: POC Glucose 117 H 05/04/18 05:30: WBC 9.0, RBC 3.57 L, Hgb 9.3 L, Hct 32.3 L, MCV 90.5, MCH 26.1 L, MCHC 28.8 L, RDW 15.6 H, RDW Differential 50.4 H, Plt Count 225, MPV 10.6, Immature Gran % (Auto) 0.200, Neut % (Auto) 75.0 H, Lymph % (Auto) 15.8 L, [place] % (Auto) 6.5, Eos % (Auto) 2.2, Baso % (Auto) 0.3, Absolute Neuts (auto) 6.8, Absolute Lymphs (auto) 1.42, Total Counted Not Reportable 05/04/18 05:30: Sodium 145, Potassium 3.7, Chloride 113 H, Carbon Dioxide 25.0, Anion Gap 7, BUN 13, Creatinine 0.74, Estim Creat Clear Calc 73.79, Est GFR (MDRD) Af Amer 103, Est GFR (MDRD) Non-Af 85, BUN/Creatinine Ratio 17.6, Glucose 128 H, Calcium 8.3 L Current Medications Albuterol Sulfate (Ventolin Aerosols) 2.5 mg INHALATION Q4H PRN PRN PRN Reason: wheezing/shortness of breath Benzonatate (Tessalon Perle) 100 mg PO TID PRN PRN PRN Reason: COUGH Bupropion HCl (Wellbutrin Xl) 150 mg PO DAILY [facility] Dextrose (D50w Syringe) 0 gm IV X1 PRN; Protocol PRN Reason: Hypoglycemia Enoxaparin Sodium (Lovenox) 40 mg SC DAILY@1000 [facility] Last Admin: 05/03/18 12:22 Dose: 40 mg Fluoxetine HCl (Prozac) 60 mg PO DAILY [facility] Gabapentin (Neurontin) 300 mg PO TIDCM [facility] Last Admin: 05/03/18 17:13 Dose: 300 mg Glucagon () 1 mg IM .X1 PRN PRN Reason: Hypoglycemia [facility] Ampicillin Sodium/Sulbactam (Sodium 3 gm/ Sodium Chloride) 112 mls @ 150 mls/hr IV Q8 [facility] Last Admin: 05/04/18 05:46 Dose: 150 mls/hr Azithromycin 500 mg/ Dextrose 255 mls @ 250 mls/hr IV Q24 [facility] Stop: 05/05/18 11:02 Sodium Chloride () 1,000 mls @ 75 mls/hr IV .[id number] [facility] Insulin Glargine (Lantus (Bkc)) 64 units SC QHS [facility] Last Admin: 05/03/18 22:05 Dose: Not Given Insulin Human Lispro (Humalog Kwikpen (Bkc)) 0 unit SQ ACHS [facility]; Protocol Last Admin: 05/03/18 22:04 Dose: Not Given Insulin Human Lispro (Humalog Kwikpen (Bkc)) 5 unit SC TIDCM [facility] Last Admin: 05/03/18 17:11 Dose: 5 unit Magnesium Hydroxide (Milk Of Magnesia) 30 ml PO DAILY PRN PRN PRN Reason: Constipation Pantoprazole Sodium (Protonix) 40 mg PO DAILY [facility] Pravastatin Sodium (Pravachol) 20 mg PO QHS [facility] Last Admin: 05/03/18 22:04 Dose: 20 mg Sodium Chloride () 5 - 15 ml IV UD PRN PRN Reason: SALINE FLUSH Medical Necessity - Tobacco Use Smoking Status: Never smoker Assessment/Plan All Active Problems (Last Updated 10/08/17 @ 13:30 by Mary Bustamante) Sepsis (Acute) Severe sepsis (Acute) CAP (community acquired pneumonia) (Acute) Dyspnea on exertion (Acute) 1. Sepsis secondary to possible community-acquired pneumonia on the right/FRANSISCA(resolved) -She was given a dose of Rocephin and is with her will transition to Unasyn and azithromycin -Elevation of her lactate to 2.1 has resolved -Baseline creatinine is around 0.8, and creatinine has returned to baseline -IVF at 75 cc/h -She did improve with BiPAP yesterday her PCO2 was 52 on her ABG 2. DM 2 -We will start on sliding scale insulin -Hold metformin 3. RA/chronic pain syndrome/lupus -Stable -Continue with her Plaquenil, will hold her narcotics given her hypoventilation -Can restart Mobic 4. Depression/anxiety -Stable -Continue with her Wellbutrin and her Prozac 5. HTN/HLD -Blood pressure stable -Continue to hold her Lasix, continue with statin 6. GERD -Stable -Continue with home PPI DVT: Lovenox Code Visit Inpatient E&M: 51594 Subs Hosp L2
--- NOTE | 2018-05-04 08:15 | PN_ITS ---
Patient Problems: Active and Suspected Problems (Last Updated 10/08/17 @ 13:30 by Mary Bustamante) Sepsis (Acute) Subjective: She is much more alert today and conversational. She denies any pain at the moment. Vitals/I&O's: Vital Signs Temp Pulse Resp BP Pulse Ox 99.1 F 70 18 154/67 H 98 05/04/18 03:36 05/04/18 04:15 05/04/18 03:36 05/04/18 03:36 05/04/18 07:32 Oxygen Flow Rate (L/min) 1 Oxygen Delivery Method Nasal Cannula Weight: 220 lb 10.923 oz Body Mass Index (BMI) 35.6 Finger Stick Blood Glucose 216 Intake and Output for Last 24 Hours 05/02/18 05/03/18 05/04/18 23:59 23:59 23:59 Intake Total 1675 / 1675 629 / 629 Output Total 875 / 875 800 / 800 Balance 800 / 800 -171 / -171 General: Alert, oriented x3, Cooperative, No apparent distress, HEENT: Atraumatic, EOMI, Normocephalic Oral: Dry Mucosa Neck: Supple, No JVD, Trachea Midline Lungs: Clear to auscultation, Normal air movement, No rhonchi, No wheeze, No rales, Diminished Cardiovascular: Regular rate, Regular Rhythm, Normal S1, Normal S2, No murmurs, No rub noted, No Gallop Abdomen: Soft, Non Tender, Non-Distended, No Hepato-splenomegaly Extremities: No edema, Capillary Refill Less than 3 Seconds Skin: No rashes, No breakdown Neurological: Deep Tendon Reflexes 2+/4 and Symmetrical, Sensory exam intact to light touch and pain - 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 Psych/Mental Status: Flat Affect, appropriate Microbiology Past 72 Hours 05/03/18 07:50 Mucosa - Nose Influenza Types A,B Direct FA (BARBARA) - Final Laboratory Results 05/03/18 07:35: Lactic Acid 2.1 H 05/03/18 09:00: Urine Color Yellow, Urine Clarity Clear, Urine pH 6.0, Ur Specific [place] 1.015, Urine Protein 30 H, Urine Glucose (UA) Normal, Urine Ketones Negative, Urine Occult Blood Negative, Urine Nitrite Negative, Urine Bilirubin Negative, Urine Urobilinogen Normal, Ur Leukocyte Esterase Negative, Urine RBC 0 SEEN, Urine WBC 0 SEEN, Ur Squamous Epith Cells 0-5 SEEN, Urine Bacteria RARE, Hyaline Casts 5-10 SEEN, Urine Mucus 0 SEEN 05/03/18 12:00: Lactic Acid 1.1 05/03/18 12:19: POC Glucose 177 H 05/03/18 14:04: Specimen Type ART, Sample Site R Radial, pH 7.30 L, Bicarbonate Actual 25.9, POC Total CO2 28, Base Excess 0, O2 Saturation 97, ABG pCO2 52.4 H, ABG pO2 104 H, Kenneth Test NA, O2 Delivery Device Nasal Can, Liter Flow 2.0, Blood Gas Notified Whom MARIAMA YIN, Blood Gas Notified Time 1400 05/03/18 17:10: POC Glucose 108 05/03/18 21:44: POC Glucose 117 H 05/04/18 05:30: WBC 9.0, RBC 3.57 L, Hgb 9.3 L, Hct 32.3 L, MCV 90.5, MCH 26.1 L , MCHC 28.8 L, RDW 15.6 H, RDW Differential 50.4 H, Plt Count 225, MPV 10.6, Immature Gran % (Auto) 0.200, Neut % (Auto) 75.0 H, Lymph % (Auto) 15.8 L, [place] % (Auto) 6.5, Eos % (Auto) 2.2, Baso % (Auto) 0.3, Absolute Neuts (auto) 6.8, Absolute Lymphs (auto) 1.42, Total Counted Not Reportable 05/04/18 05:30: Sodium 145, Potassium 3.7, Chloride 113 H, Carbon Dioxide 25.0, Anion Gap 7, BUN 13, Creatinine 0.74, Estim Creat Clear Calc 73.79, Est GFR (MDRD) Af Amer 103, Est GFR (MDRD) Non-Af 85, BUN/Creatinine Ratio 17.6, Glucose 128 H, Calcium 8.3 L Current Medications Albuterol Sulfate (Ventolin Aerosols) 2.5 mg INHALATION Q4H PRN PRN PRN Reason: wheezing/shortness of breath Benzonatate (Tessalon Perle) 100 mg PO TID PRN PRN PRN Reason: COUGH Bupropion HCl (Wellbutrin Xl) 150 mg PO DAILY [facility] Dextrose (D50w Syringe) 0 gm IV X1 PRN; Protocol PRN Reason: Hypoglycemia Enoxaparin Sodium (Lovenox) 40 mg SC DAILY@1000 [facility] Last Admin: 05/03/18 12:22 Dose: 40 mg Fluoxetine HCl (Prozac) 60 mg PO DAILY [facility] Gabapentin (Neurontin) 300 mg PO TIDCM [facility] Last Admin: 05/03/18 17:13 Dose: 300 mg Glucagon () 1 mg IM .X1 PRN PRN Reason: Hypoglycemia [facility] Ampicillin Sodium/Sulbactam (Sodium 3 gm/ Sodium Chloride) 112 mls @ 150 mls/hr IV Q8 [facility] Last Admin: 05/04/18 05:46 Dose: 150 mls/hr Azithromycin 500 mg/ Dextrose 255 mls @ 250 mls/hr IV Q24 [facility] Stop: 05/05/18 11:02 Sodium Chloride () 1,000 mls @ 75 mls/hr IV .[id number] [facility] Insulin Glargine (Lantus (Bkc)) 64 units SC QHS [facility] Last Admin: 05/03/18 22:05 Dose: Not Given Insulin Human Lispro (Humalog Kwikpen (Bkc)) 0 unit SQ ACHS [facility]; Protocol Last Admin: 05/03/18 22:04 Dose: Not Given Insulin Human Lispro (Humalog Kwikpen (Bkc)) 5 unit SC TIDCM [facility] Last Admin: 05/03/18 17:11 Dose: 5 unit Magnesium Hydroxide (Milk Of Magnesia) 30 ml PO DAILY PRN PRN PRN Reason: Constipation Pantoprazole Sodium (Protonix) 40 mg PO DAILY [facility] Pravastatin Sodium (Pravachol) 20 mg PO QHS [facility] Last Admin: 05/03/18 22:04 Dose: 20 mg Sodium Chloride () 5 - 15 ml IV UD PRN PRN Reason: SALINE FLUSH Medical Necessity - Tobacco Use Smoking Status: Never smoker Assessment/Plan All Active Problems (Last Updated 10/08/17 @ 13:30 by Mary Bustamante) Sepsis (Acute) Severe sepsis (Acute) CAP (community acquired pneumonia) (Acute) Dyspnea on exertion (Acute) 1. Sepsis secondary to possible community-acquired pneumonia on the right/FRANSISCA(resolved) -She was given a dose of Rocephin and is with her will transition to Unasyn and azithromycin -Elevation of her lactate to 2.1 has resolved -Baseline creatinine is around 0.8, and creatinine has returned to baseline -IVF at 75 cc/h -She did improve with BiPAP yesterday her PCO2 was 52 on her ABG 2. DM 2 -We will start on sliding scale insulin -Hold metformin 3. RA/chronic pain syndrome/lupus -Stable -Continue with her Plaquenil, will hold her narcotics given her hypoventilation -Can restart Mobic 4. Depression/anxiety -Stable -Continue with her Wellbutrin and her Prozac 5. HTN/HLD -Blood pressure stable -Continue to hold her Lasix, continue with statin 6. GERD -Stable -Continue with home PPI DVT: Lovenox Code Visit Inpatient E&M: 29465 Subs Hosp L2
[2018-05-04 08:16] LABS: Bedside Glucose 140 mg/dL (70-110)
[2018-05-04] MEDS: Enoxaparin 40 MG/0.4 ML Syringe SC (09:04)
[2018-05-04] MEDS: Pantoprazole Sodium 40 MG Tablet PO (09:04)
[2018-05-04] MEDS: buPROPion (XL) 150 MG TABLET.XL PO (09:04)
[2018-05-04] MEDS: Hydroxychloroquine 200 MG Tablet PO (09:04)
[2018-05-04] MEDS: FLUoxetine 20 MG Capsule 60 MG PO (09:04)
[2018-05-04] MEDS: Insulin Lispro 100 UNIT/ML INSULN.PEN SC ×3 (09:04→17:09)
[2018-05-04] MEDS: Gabapentin 300 MG Capsule PO ×3 (09:04→17:09)
[2018-05-04 12:26] LABS: Bedside Glucose 146 mg/dL (70-110)
[2018-05-04 15:14] LABS: Magnesium 1.9 mg/dL (1.6-2.6)
[2018-05-04] MEDS: 0.9% Normal Saline 1,000 ML 75 ML IV (17:10)
[2018-05-04 17:15] LABS: Bedside Glucose 124 mg/dL (70-110)
[2018-05-04] MEDS: Pravastatin 20 MG Tablet PO (21:59)
[2018-05-04 22:06] LABS: Bedside Glucose 106 mg/dL (70-110)
[2018-05-05] VITALS (10 sets, daily range): BP systolic 107–151; BP diastolic 47–85; PULSE 54–72; RESP 16–18; TEMP 36.6–37.3; O2SAT 96–100
[2018-05-05 07:32] LABS: Bedside Glucose 139 mg/dL (70-110)
[2018-05-05] MEDS: Hydroxychloroquine 200 MG Tablet PO (08:13)
[2018-05-05] MEDS: Insulin Lispro 100 UNIT/ML INSULN.PEN SC ×3 (08:13→17:34)
[2018-05-05] MEDS: Gabapentin 300 MG Capsule PO ×3 (08:13→16:54)
[2018-05-05] MEDS: 0.9% Normal Saline 1,000 ML 75 ML IV ×2 (08:16→22:09)
[2018-05-05] MEDS: FLUoxetine 20 MG Capsule 60 MG PO (09:25)
[2018-05-05] MEDS: buPROPion (XL) 150 MG TABLET.XL PO (09:25)
[2018-05-05] MEDS: Pantoprazole Sodium 40 MG Tablet PO (09:25)
[2018-05-05] MEDS: Enoxaparin 40 MG/0.4 ML Syringe SC (09:25)
--- NOTE | 2018-05-05 10:21 | PCM.PN.HOSP ---
Patient Problems: Active and Suspected Problems (Last Updated 10/08/17 @ 13:30 by Mary Bustamante) Sepsis (Acute) Subjective: Patient is a 63-year-old lady with multiple comorbidities admitted with fall with altered mental status Objective: GENERAL: cooperative HEENT: Atraumatic; moist oral mucosa EYES; Anicteric, Normal Conjunctiva NECK; supple, normal thyroid, no distended JVD. RESPIRATORY: Diminished to auscultation bilaterally, CARDIOVASCULAR: Regular S1 S2, no audible murmurs GI: soft, non-tender, normoactive bowel sounds, : No Renal angle tenderness; EXTREMITIES: No edema, no clubbing, no cyanosis. MUSCULOSKELETAL: No Joint Tenderness; no muscle waisting NEURO: Awake; no lateralizing signs. SKIN: No Rash PSYCH; flat affect Vitals/I&O's: Vital Signs Temp Pulse Resp BP Pulse Ox 98.2 F 61 16 107/85 H 100 05/05/18 07:55 05/05/18 07:55 05/05/18 07:55 05/05/18 07:55 05/05/18 07:55 Oxygen Flow Rate (L/min) 2 Oxygen Delivery Method Nasal Cannula Weight: 100.1 kg Body Mass Index (BMI) 35.6 Finger Stick Blood Glucose 216 Intake and Output for Last 24 Hours 05/03/18 05/04/18 05/05/18 23:59 23:59 23:59 Intake Total 1675 / 1675 2323 / 2323 958 / 958 Output Total 875 / 875 1600 / 1600 300 / 300 Balance 800 / 800 723 / 723 658 / 658 Microbiology Past 72 Hours 05/03/18 07:50 Mucosa - Nose Influenza Types A,B Direct FA (BARBARA) - Final Laboratory Results 05/04/18 12:05: POC Glucose 146 H 05/04/18 14:50: Magnesium 1.9 05/04/18 17:08: POC Glucose 124 H 05/04/18 21:55: POC Glucose 106 05/05/18 07:28: POC Glucose 139 H Current Medications Albuterol Sulfate (Ventolin Aerosols) 2.5 mg INHALATION Q4H PRN PRN PRN Reason: wheezing/shortness of breath Benzonatate (Tessalon Perle) 100 mg PO TID PRN PRN PRN Reason: COUGH Bupropion HCl (Wellbutrin Xl) 150 mg PO DAILY [facility] Last Admin: 05/05/18 09:25 Dose: 150 mg Dextrose (D50w Syringe) 0 gm IV X1 PRN; Protocol PRN Reason: Hypoglycemia Enoxaparin Sodium (Lovenox) 40 mg SC DAILY@1000 [facility] Last Admin: 05/05/18 09:25 Dose: 40 mg Fluoxetine HCl (Prozac) 60 mg PO DAILY [facility] Last Admin: 05/05/18 09:25 Dose: 60 mg Gabapentin (Neurontin) 300 mg PO TIDCM [facility] Last Admin: 05/05/18 08:13 Dose: 300 mg Glucagon () 1 mg IM .X1 PRN PRN Reason: Hypoglycemia Hydroxychloroquine Sulfate (Plaquenil) 200 mg PO DAILYCM [facility] Last Admin: 05/05/18 08:13 Dose: 200 mg Ampicillin Sodium/Sulbactam (Sodium 3 gm/ Sodium Chloride) 112 mls @ 150 mls/hr IV Q8 [facility] Last Admin: 05/05/18 05:52 Dose: 150 mls/hr Azithromycin 500 mg/ Dextrose 255 mls @ 250 mls/hr IV Q24 [facility] Stop: 05/05/18 11:02 Last Admin: 05/05/18 09:28 Dose: 250 mls/hr Sodium Chloride () 1,000 mls @ 75 mls/hr IV .[id number] [facility] Last Admin: 05/05/18 08:16 Dose: 75 mls/hr Insulin Glargine (Lantus (Bkc)) 50 units SC QHS [facility] Insulin Human Lispro (Humalog Kwikpen (Bkc)) 0 unit SQ ACHS [facility]; Protocol Last Admin: 05/05/18 08:11 Dose: Not Given Insulin Human Lispro (Humalog Kwikpen (Bkc)) 5 unit SC TIDCM [facility] Last Admin: 05/05/18 08:13 Dose: 5 unit Magnesium Hydroxide (Milk Of Magnesia) 30 ml PO DAILY PRN PRN PRN Reason: Constipation Pantoprazole Sodium (Protonix) 40 mg PO DAILY [facility] Last Admin: 05/05/18 09:25 Dose: 40 mg Pravastatin Sodium (Pravachol) 20 mg PO QHS [facility] Last Admin: 05/04/18 21:59 Dose: 20 mg Sodium Chloride () 5 - 15 ml IV UD PRN PRN Reason: SALINE FLUSH Medical Necessity - Tobacco Use Smoking Status: Never smoker Assessment/Plan All Active Problems (Last Updated 10/08/17 @ 13:30 by Mary Bustamante) Sepsis (Acute) Severe sepsis (Acute) CAP (community acquired pneumonia) (Acute) Dyspnea on exertion (Acute) Patient is a 63-year-old lady with multiple comorbidities admitted with fall with altered mental status 1. Acute metabolic encephalopathy secondary to acute kidney injury as well as hypercarbia 2. Severe sepsis secondary to community-acquired pneumonia with suspected aspiration managed with Unasyn as well as Zithromax to cover for atypicals. Patient was also placed on supplemental oxygen titrated to keep saturation greater than 90 3. Acute hypoxic respiratory failure present on admission patient was managed on BiPAP which has since been weaned off 4. Acute kidney injury secondary to suspected ATN from sepsis. On IV fluids with monitoring of electrolyte 5. Diabetes mellitus type II: Placed on long acting insulin, Accu-Cheks a.c. and at bedtime and covered with sliding scale insulin 5. Systemic lupus patient is on Plaquenil did continue 6. Rheumatoid arthritis 7. Degenerative joint disease 8. Chronic pain syndrome secondary to patient's underlying rheumatoid and lupus and Degenerative joint disease managed by Dr. Sommers as outpatient 9. Dyslipidemia-patient is on statin therapy, continued at home dose 10. Hypertension-blood pressure controlled, home medications continued with dose adjustment as needed 11. Morbid obesity with BMI of 35.6 12. GERD on PPI 13. Depression with anxiety 14. Restless leg syndrome patient started on Requip 15. DVT prophylaxis SC Lovenox Active Medications Albuterol Sulfate (Ventolin Aerosols) 2.5 mg INHALATION Q4H PRN PRN PRN Reason: wheezing/shortness of breath Benzonatate (Tessalon Perle) 100 mg PO TID PRN PRN PRN Reason: COUGH Bupropion HCl (Wellbutrin Xl) 150 mg PO DAILY [facility] Last Admin: 05/05/18 09:25 Dose: 150 mg Dextrose (D50w Syringe) 0 gm IV X1 PRN; Protocol PRN Reason: Hypoglycemia Enoxaparin Sodium (Lovenox) 40 mg SC DAILY@1000 [facility] Last Admin: 05/05/18 09:25 Dose: 40 mg Fluoxetine HCl (Prozac) 60 mg PO DAILY [facility] Last Admin: 05/05/18 09:25 Dose: 60 mg Gabapentin (Neurontin) 300 mg PO TIDCM [facility] Last Admin: 05/05/18 08:13 Dose: 300 mg Glucagon () 1 mg IM .X1 PRN PRN Reason: Hypoglycemia Hydroxychloroquine Sulfate (Plaquenil) 200 mg PO DAILYCM [facility] Last Admin: 05/05/18 08:13 Dose: 200 mg Ampicillin Sodium/Sulbactam (Sodium 3 gm/ Sodium Chloride) 112 mls @ 150 mls/hr IV Q8 [facility] Last Admin: 05/05/18 05:52 Dose: 150 mls/hr Azithromycin 500 mg/ Dextrose 255 mls @ 250 mls/hr IV Q24 [facility] Stop: 05/05/18 11:02 Last Admin: 05/05/18 09:28 Dose: 250 mls/hr Sodium Chloride () 1,000 mls @ 75 mls/hr IV .[id number] [facility] Last Admin: 05/05/18 08:16 Dose: 75 mls/hr Insulin Glargine (Lantus (Bkc)) 50 units SC QHS [facility] Insulin Human Lispro (Humalog Kwikpen (Bkc)) 0 unit SQ ACHS [facility]; Protocol Last Admin: 05/05/18 08:11 Dose: Not Given Insulin Human Lispro (Humalog Kwikpen (Bkc)) 5 unit SC TIDCM [facility] Last Admin: 05/05/18 08:13 Dose: 5 unit Magnesium Hydroxide (Milk Of Magnesia) 30 ml PO DAILY PRN PRN PRN Reason: Constipation Pantoprazole Sodium (Protonix) 40 mg PO DAILY [facility] Last Admin: 05/05/18 09:25 Dose: 40 mg Pravastatin Sodium (Pravachol) 20 mg PO QHS [facility] Last Admin: 05/04/18 21:59 Dose: 20 mg Sodium Chloride () 5 - 15 ml IV UD PRN PRN Reason: SALINE FLUSH Clinical Impression(s) from Imaging Studies Brain CT 05/03/18 07:23 IMPRESSION: No acute intracranial hemorrhage or mass effect. Electronically Signed: Gary Staples MD at 8:29 EST , Service support , Chest X-Ray 05/03/18 08:06 IMPRESSION: 1. No airspace consolidation or pleural effusion. 2. Hypoinflation. Electronically Signed: Gary Staples MD at 8:46 EST , Service support , Knee X-Ray 05/03/18 08:11 IMPRESSION: No fracture or malalignment. Small joint effusion. Electronically Signed: Gary Staples MD at 8:45 EST , Service support , Pelvis X-Ray 05/03/18 08:16 IMPRESSION: No pelvic ring fracture or malalignment. Electronically Signed: Gary Staples MD at 8:48 EST , Service support , Tibia/Fibula X-Ray 05/03/18 08:21 IMPRESSION: No fracture or malalignment. Electronically Signed: Gary Staples MD at 8:47 EST , Service support , Tibia/Fibula X-Ray 05/03/18 08:26 IMPRESSION: No fracture or malalignment. Electronically Signed: Gary Staples MD at 8:47 EST , Service support , Code Visit Inpatient E&M: 14841 Subs Hosp L3
[2018-05-05 11:15] LABS: Bedside Glucose 143 mg/dL (70-110)
[2018-05-05] MEDS: Pramipexole Di-HCl 0.125 MG Tablet PO ×2 (14:41→22:10)
[2018-05-05 17:01] LABS: Bedside Glucose 136 mg/dL (70-110)
[2018-05-05] MEDS: Pravastatin 20 MG Tablet PO (22:10)
[2018-05-05 23:01] LABS: Bedside Glucose 111 mg/dL (70-110)
[2018-05-06] VITALS (11 sets, daily range): BP systolic 142–156; BP diastolic 54–72; PULSE 53–78; RESP 16–18; TEMP 36.6–36.8; O2SAT 94–99
[2018-05-06] MEDS: Pramipexole Di-HCl 0.125 MG Tablet PO ×3 (06:00→21:01)
[2018-05-06 06:51] LABS: Bedside Glucose 131 mg/dL (70-110)
[2018-05-06 07:08] LABS: Hematocrit 31.4 % (37-47); Mean Corp Hgb Conc 28.7 g/gl (32-36); Mean Corpuscular Hgb 26.1 pg (27.0-32.0); Mean Platelet Vol. 10.8 fl (6.2-12.0); Platelet Count 223 K/mm3 (150-450); RBC Distribution Width CV 15.9 % (11.6-14.6); RBC Distribution Width SD 51.4 fl (35.1-43.9); Red Blood Count 3.45 M/mm3 (4.2-5.4); Scan Indicated on CBC? Y/N NO; White Blood Count 9.8 K/mm3 (4.4-11.0)
[2018-05-06 07:26] LABS: Anion Gap 10 (5-15); BUN 9 mg/dL (7-18); BUN/Creat Ratio 12.9 RATIO (10-20); Chloride 115 mmol/L (98-107); EST Glomerular Filtration Rate 91 mL/min (>60); Est Glom Filt Rate - Afr Amer 110 mL/min (>60); Estimated Creatinine Clearance 78.01 ml/min; Glucose 129 mg/dL (74-106); Magnesium 1.9 mg/dL (1.6-2.6); Potassium 3.9 mmol/L (3.5-5.1); Sodium Level 147 mmol/L (136-145)
[2018-05-06] MEDS: Insulin Lispro 100 UNIT/ML INSULN.PEN SC ×3 (08:14→17:09)
[2018-05-06] MEDS: Gabapentin 300 MG Capsule PO ×3 (08:14→17:08)
[2018-05-06] MEDS: Pantoprazole Sodium 40 MG Tablet PO (08:15)
[2018-05-06] MEDS: Enoxaparin 40 MG/0.4 ML Syringe SC (08:15)
[2018-05-06] MEDS: Hydroxychloroquine 200 MG Tablet PO (08:15)
[2018-05-06] MEDS: FLUoxetine 20 MG Capsule 60 MG PO (08:16)
[2018-05-06] MEDS: buPROPion (XL) 150 MG TABLET.XL PO (08:16)
--- NOTE | 2018-05-06 10:01 | PCM.PN.HOSP ---
Patient Problems: Active and Suspected Problems (Last Updated 10/08/17 @ 13:30 by Mary Bustamante) Sepsis (Acute) Subjective: Patient seen complains of profound weakness. Also reports 3 watery stools since last night. Stool for C. difficile ordered after patient was placed in isolation patient hemoglobin down to 9 Objective: GENERAL: cooperative HEENT: Atraumatic; moist oral mucosa EYES; Anicteric, Normal Conjunctiva NECK; supple, normal thyroid, no distended JVD. RESPIRATORY: Diminished to auscultation bilaterally, CARDIOVASCULAR: Regular S1 S2, no audible murmurs GI: soft, non-tender, normoactive bowel sounds, : No Renal angle tenderness; EXTREMITIES: No edema, no clubbing, no cyanosis. MUSCULOSKELETAL: No Joint Tenderness; no muscle waisting NEURO: Awake; no lateralizing signs. SKIN: No Rash PSYCH; flat affect Vitals/I&O's: Vital Signs Temp Pulse Resp BP Pulse Ox 97.8 F 60 18 156/63 H 99 05/06/18 08:30 05/06/18 08:30 05/06/18 08:30 05/06/18 08:30 05/06/18 08:30 Oxygen Flow Rate (L/min) 2 Oxygen Delivery Method Room Air Weight: 100.1 kg Body Mass Index (BMI) 35.6 Finger Stick Blood Glucose 216 Intake and Output for Last 24 Hours 05/04/18 05/05/18 05/06/18 23:59 23:59 23:59 Intake Total 2323 / 2323 958 / 958 2848 / 2848 Output Total 1600 / 1600 300 / 300 Balance 723 / 723 658 / 658 2848 / 2848 Microbiology Past 72 Hours 05/03/18 09:05 Blood Culture (Wb) - Anticubital Left Blood Culture - Preliminary No growth in 48 hours. 05/03/18 07:35 Blood Culture (Wb) - Anticubital Right Blood Culture - Preliminary No growth in 48 hours. 05/03/18 07:50 Mucosa - Nose Influenza Types A,B Direct FA (BARBARA) - Final Laboratory Results 05/05/18 11:12: POC Glucose 143 H 05/05/18 16:51: POC Glucose 136 H 05/05/18 22:14: POC Glucose 111 H 05/06/18 06:30: WBC 9.8, RBC 3.45 L, Hgb 9.0 L, Hct 31.4 L, MCV 91.0, MCH 26.1 L, MCHC 28.7 L, RDW 15.9 H, RDW Differential 51.4 H, Plt Count 223, MPV 10.8 05/06/18 06:30: Sodium 147 H, Potassium 3.9, Chloride 115 H, Carbon Dioxide 22.0, Anion Gap 10, BUN 9, Creatinine 0.70, Estim Creat Clear Calc 78.01, Est GFR (MDRD) Af Amer 110, Est GFR (MDRD) Non-Af 91, BUN/Creatinine Ratio 12.9, Glucose 129 H, Calcium 9.0, Magnesium 1.9 05/06/18 06:44: POC Glucose 131 H Current Medications Albuterol Sulfate (Ventolin Aerosols) 2.5 mg INHALATION Q4H PRN PRN PRN Reason: wheezing/shortness of breath Benzonatate (Tessalon Perle) 100 mg PO TID PRN PRN PRN Reason: COUGH Bupropion HCl (Wellbutrin Xl) 150 mg PO DAILY [facility] Last Admin: 05/06/18 08:16 Dose: 150 mg Dextrose (D50w Syringe) 0 gm IV X1 PRN; Protocol PRN Reason: Hypoglycemia Enoxaparin Sodium (Lovenox) 40 mg SC DAILY@1000 [facility] Last Admin: 05/06/18 08:15 Dose: 40 mg Fluoxetine HCl (Prozac) 60 mg PO DAILY [facility] Last Admin: 05/06/18 08:16 Dose: 60 mg Gabapentin (Neurontin) 300 mg PO TIDCM [facility] Last Admin: 05/06/18 08:14 Dose: 300 mg Glucagon () 1 mg IM .X1 PRN PRN Reason: Hypoglycemia Hydroxychloroquine Sulfate (Plaquenil) 200 mg PO DAILYCM [facility] Last Admin: 05/06/18 08:15 Dose: 200 mg Ampicillin Sodium/Sulbactam (Sodium 3 gm/ Sodium Chloride) 112 mls @ 150 mls/hr IV Q8 [facility] Last Admin: 05/06/18 06:00 Dose: 150 mls/hr Sodium Chloride () 1,000 mls @ 75 mls/hr IV .[id number] [facility] Last Admin: 05/05/18 22:09 Dose: 75 mls/hr Insulin Glargine (Lantus (Bkc)) 50 units SC QHS [facility] Last Admin: 05/05/18 22:15 Dose: Not Given Insulin Human Lispro (Humalog Kwikpen (Bk)) 0 unit SQ ACHS [facility]; Protocol Last Admin: 05/06/18 08:13 Dose: Not Given Insulin Human Lispro (Humalog Kwikpen (Bk)) 5 unit SC TIDCM [facility] Last Admin: 05/06/18 08:14 Dose: 5 unit Magnesium Hydroxide (Milk Of Magnesia) 30 ml PO DAILY PRN PRN PRN Reason: Constipation Pantoprazole Sodium (Protonix) 40 mg PO DAILY [facility] Last Admin: 05/06/18 08:15 Dose: 40 mg Pramipexole Dihydrochloride (Mirapex) 0.125 mg PO TID [facility] Last Admin: 05/06/18 06:00 Dose: 0.1248 mg Pravastatin Sodium (Pravachol) 20 mg PO QHS [facility] Last Admin: 05/05/18 22:10 Dose: 20 mg Sodium Chloride () 5 - 15 ml IV UD PRN PRN Reason: SALINE FLUSH Medical Necessity - Tobacco Use Smoking Status: Never smoker Assessment/Plan All Active Problems (Last Updated 10/08/17 @ 13:30 by Mary Bustamante) Sepsis (Acute) Severe sepsis (Acute) CAP (community acquired pneumonia) (Acute) Dyspnea on exertion (Acute) Patient is a 63-year-old lady with multiple comorbidities admitted with fall with altered mental status 1. Acute metabolic encephalopathy secondary to acute kidney injury as well as hypercarbia 2. Severe sepsis secondary to community-acquired pneumonia with suspected aspiration managed with Unasyn as well as Zithromax to cover for atypicals. Patient was also placed on supplemental oxygen titrated to keep saturation greater than 90 3. Acute hypoxic respiratory failure present on admission patient was managed on BiPAP which has since been weaned off 4. Acute kidney injury secondary to suspected ATN from sepsis. On IV fluids with monitoring of electrolyte 5. Diabetes mellitus type II: Placed on long acting insulin, Accu-Cheks a.c. and at bedtime and covered with sliding scale insulin 5. Systemic lupus patient is on Plaquenil did continue 6. Rheumatoid arthritis 7. Degenerative joint disease 8. Chronic pain syndrome secondary to patient's underlying rheumatoid and lupus and Degenerative joint disease managed by Dr. Sommers as outpatient 9. Dyslipidemia-patient is on statin therapy, continued at home dose 10. Hypertension-blood pressure controlled, home medications continued with dose adjustment as needed 11. Morbid obesity with BMI of 35.6 12. GERD on PPI 13. Depression with anxiety 14. Restless leg syndrome patient started on Requip 15. DVT prophylaxis SC Lovenox 16. Diarrhea possibly antibiotic related diarrhea however did send for stool to rule out C. difficile 17. Physical deconditioning requested for PT OT and social media sr strategy manager to assist with discharge planning 18. Anemia secondary to anemia of chronic disorder monitoring H&H with plans to transfuse if patient becomes symptomatic or hemoglobin falls below 7 Code Visit Inpatient E&M: 35358 Subs Hosp L3
[2018-05-06 11:31] LABS: Bedside Glucose 141 mg/dL (70-110)
[2018-05-06] MEDS: 0.9% Normal Saline 1,000 ML 75 ML IV (11:54)
[2018-05-06] MEDS: Glucerna Shake 120 ML LIQUID PO ×3 (14:40→21:00)
[2018-05-06] MEDS: Amox/Clavulanate 875 MG Tablet PO ×2 (14:45→21:01)
[2018-05-06] MEDS: Insulin Lispro 100 UNIT/ML INSULN.PEN SQ (17:09)
[2018-05-06 17:16] LABS: Bedside Glucose 157 mg/dL (70-110)
[2018-05-06] MEDS: Loperamide 2 MG Capsule 4 MG PO (19:41)
[2018-05-06 21:01] LABS: Bedside Glucose 140 mg/dL (70-110)
[2018-05-06] MEDS: Pravastatin 20 MG Tablet PO (21:01)
[2018-05-06] MEDS: morphine SR 15 MG Tablet PO (21:06)
--- NOTE | 2018-05-06 23:29 | CPS ---
pt refusing bipap for tonight
[2018-05-07 02:45] VITALS: BP 151/56; BP 151/86; PULSE 50; PULSE 56; RESP 18; TEMP 36.8; O2SAT 96
[2018-05-07 03:15] VITALS: PULSE 53
[2018-05-07] MEDS: Pramipexole Di-HCl 0.125 MG Tablet PO ×2 (05:46→08:05)
[2018-05-07 06:33] LABS: Hematocrit 31.4 % (37-47); Hemoglobin 9.1 g/dl (12.0-15.0); Mean Corpuscular Hgb 26.1 pg (27.0-32.0); Mean Corpuscular Volume 90.2 fL (81-99); Mean Platelet Vol. 10.4 fl (6.2-12.0); Platelet Count 234 K/mm3 (150-450); RBC Distribution Width SD 51.2 fl (35.1-43.9); Red Blood Count 3.48 M/mm3 (4.2-5.4); White Blood Count 11.8 K/mm3 (4.4-11.0)
[2018-05-07 06:47] LABS: Anion Gap 10 (5-15); BUN 10 mg/dL (7-18); BUN/Creat Ratio 15.2 RATIO (10-20); Calcium,Total 9.3 mg/dL (8.5-10.1); Chloride 114 mmol/L (98-107); Creatinine, Serum 0.66 mg/dL (0.55-1.02); EST Glomerular Filtration Rate 97 mL/min (>60); Est Glom Filt Rate - Afr Amer 117 mL/min (>60); Estimated Creatinine Clearance 82.74 ml/min; Glucose 124 mg/dL (74-106); Potassium 3.8 mmol/L (3.5-5.1); Scan Indicated on CBC? Y/N NO; Sodium Level 147 mmol/L (136-145)
[2018-05-07 06:51] LABS: Bedside Glucose 130 mg/dL (70-110)
[2018-05-07 07:14] VITALS: PULSE 50
[2018-05-07] MEDS: buPROPion (XL) 150 MG TABLET.XL PO (08:05)
[2018-05-07] MEDS: Gabapentin 300 MG Capsule PO (08:05)
[2018-05-07] MEDS: FLUoxetine 20 MG Capsule 60 MG PO (08:05)
[2018-05-07] MEDS: Insulin Lispro 100 UNIT/ML INSULN.PEN SC (08:06)
[2018-05-07] MEDS: Hydroxychloroquine 200 MG Tablet PO (08:06)
[2018-05-07] MEDS: Enoxaparin 40 MG/0.4 ML Syringe SC (08:07)
[2018-05-07] MEDS: Amox/Clavulanate 875 MG Tablet PO (08:10)
[2018-05-07] MEDS: Pantoprazole Sodium 40 MG Tablet PO (08:10)
[2018-05-07] MEDS: Meloxicam 7.5 MG Tablet PO (08:11)
[2018-05-07] MEDS: Furosemide 20 MG Tablet PO ×2 (08:11)
[2018-05-07] MEDS: morphine SR 15 MG Tablet PO (08:15)
[2018-05-07 08:18] VITALS: BP 129/51; PULSE 64; RESP 18; TEMP 36.7; O2SAT 95
--- NOTE | 2018-05-07 08:22 | DCINST_ITS ---
- Discharge Diagnoses Current Active Problems: Current Active and Chronic Problems (Last Updated 10/08/17 @ 13:30 by Mary Bustamante) Sepsis (Acute) You will use the following diet at home:: Calorie/Carbohydrate Controlled (specify 1200, 1400, etc) - 1800 Your food should be the consistency of: Regular Discharge Activity: Return to Normal Activity, May not drive while taking narcotic pain medications. Allergies/Adverse Reactions: Allergies No Known Allergies Allergy (Verified 05/03/18 07:09) Medications to take at Discharge Fluoxetine [Prozac] 60 mg PO DAILY 09/29/16 Furosemide [Lasix] 20 mg PO DAILY 09/29/16 Gabapentin [Neurontin] 300 mg PO TID 09/29/16 Hydroxychloroquine [Plaquenil] 200 mg PO DAILYCM 09/29/16 Insulin Glargine [Lantus SoloStar Pen] 64 units SC QHS 09/29/16 Insulin Lispro [Humalog KwikPen] 5 unit SQ TIDCM 09/29/16 Metformin HCl [Metformin HCl ER] 500 mg PO BID 09/29/16 Omeprazole [Prilosec] 40 mg PO DAILY 09/29/16 Pravastatin [Pravachol] 20 mg PO QHS 09/29/16 buPROPion XL [Wellbutrin Xl] 150 mg PO DAILY 09/29/16 Meloxicam 7.5 mg PO DAILY 03/26/17 cholecalciferol (vitamin D3) 50,000 unit capsule 50,000 unit PO QWEEK 10/07/17 morphine ER 15 mg tablet,extended release 15 mg PO Q12H tab 10/07/17 Albuterol Inhaler [Ventolin Hfa] 2 puff INHALATION Q4H PRN PRN 05/03/18 Benzonatate [Tessalon Perle] 100 mg PO TID PRN PRN 05/03/18 Amox/Clavulanate Tablet [Augmentin Tablet] 875 mg PO BID #14 tablet 05/07/18 The following prescriptions were given: Amox/Clavulanate Tablet [Augmentin Tablet] 875 mg PO BID #14 tablet Primary Care Physician: Steve Turcios MD [Primary Care Provider] - Please follow up with your Primary Care Physician in: in 5-7 days Test Results: Test results from this visit will be discussed in further detail at your follow- up appointment, if applicable. Proposed Discharge Date: 05/07/18
--- NOTE | 2018-05-07 08:25 | DS.PCM_ITS ---
Discharge Date and Diagnosis - Problem List Patient Problems: Active and Suspected Problems (Last Updated 10/08/17 @ 13:30 by Mary Bustamante) Sepsis (Acute) Date of Admission: 05/03/18 Date of Discharge: 05/07/18 - Primary Discharge Diagnosis Active and Suspected Problems (Last Updated 10/08/17 @ 13:30 by Mary Bsutamante) Sepsis (Acute) - Secondary Discharge Diagnosis Chronic Problems (Last Updated 10/08/17 @ 13:30 by Mary Bustamante) Diastolic dysfunction (Chronic) Right bundle branch block (Chronic) Obesity, morbid, BMI 40.0-49.9 (Chronic) Lupus (Chronic) Hyperlipidemia (Chronic) Diabetes mellitus, type II (Chronic) Hospital Course and Treatment Operations: None Summary of Care Provided: 1. Acute metabolic encephalopathy secondary to acute kidney injury as well as hypercarbia 2. Severe sepsis secondary to community-acquired pneumonia with suspected aspiration managed with Unasyn as well as Zithromax to cover for atypicals. Patient was also placed on supplemental oxygen titrated to keep saturation greater than 90 she was discharged home on Augmentin 3. Acute hypoxic respiratory failure present on admission patient was initially managed on BiPAP 4. Acute kidney injury secondary to suspected ATN from sepsis. On IV fluids with monitoring of electrolyte 5. Diabetes mellitus type II: Placed on long acting insulin, Accu-Cheks a.c. and at bedtime and covered with sliding scale insulin 5. Systemic lupus patient is on Plaquenil did continue 6. Rheumatoid arthritis 7. Degenerative joint disease 8. Chronic pain syndrome secondary to patient's underlying rheumatoid and lupus and Degenerative joint disease managed by Dr. Sommers as outpatient 9. Dyslipidemia-patient is on statin therapy, continued at home dose 10. Hypertension-blood pressure controlled, home medications continued with dose adjustment as needed 11. Morbid obesity with BMI of 35.6 12. GERD on PPI 13. Depression with anxiety 14. Restless leg syndrome patient started on Requip 15. DVT prophylaxis SC Lovenox 16. Diarrhea possibly antibiotic related diarrhea however did send for stool to rule out C. difficile; Stool for C. difficile came back negative 17. Physical deconditioning requested for PT OT and perinatal social worker to assist with discharge planning 18. Anemia secondary to anemia of chronic disorder monitored H&H patient not meeting criteria for blood transfusion Patient Problems: Active and Suspected Problems (Last Updated 10/08/17 @ 13:30 by Mary Bustamante) Sepsis (Acute) - Physical Exam General: Alert HEENT: Atraumatic Neck: Supple Lungs: Diminished Neurological: Neuro grossly intact Psych/Mental Status: Normal Affect Vital Signs Temp Pulse Resp BP Pulse Ox 98.1 F 64 18 129/51 H 95 05/07/18 08:18 05/07/18 08:18 05/07/18 08:18 05/07/18 08:18 05/07/18 08:18 Oxygen Flow Rate (L/min) 2 Oxygen Delivery Method Room Air Weight: 100.1 kg Body Mass Index (BMI) 35.6 Finger Stick Blood Glucose 216 Intake and Output for Last 24 Hours 05/05/18 05/06/18 05/07/18 23:59 23:59 23:59 Intake Total 958 / 958 4626 / 4626 680 / 680 Output Total 300 / 300 2 / 2 600 / 600 Balance 658 / 658 4624 / 4624 80 / 80 Microbiology Past 72 Hours 05/06/18 10:00 C. difficile DNA Amplification - Final Stool 05/03/18 09:05 Blood Culture - Preliminary Blood Culture (Wb) - Anticubital Left No growth in 48 hours. 05/03/18 07:35 Blood Culture - Preliminary Blood Culture (Wb) - Anticubital Right No growth in 48 hours. Laboratory Tests Past 24 Hrs 05/07/18 05/07/18 06:12 06:12 WBC 11.8 H RBC 3.48 L Hgb 9.1 L Hct 31.4 L MCV 90.2 MCH 26.1 L MCHC 29.0 L RDW 16.0 H RDW Differential 51.2 H Plt Count 234 MPV 10.4 Sodium 147 H Potassium 3.8 Chloride 114 H Carbon Dioxide 23.0 Anion Gap 10 BUN 10 Creatinine 0.66 Estim Creat Clear Calc 82.74 Est GFR (MDRD) Af Amer 117 Est GFR (MDRD) Non-Af 97 BUN/Creatinine Ratio 15.2 Glucose 124 H Calcium 9.3 POC Glucose 05/07/18 05/06/18 05/06/18 06:47 20:56 17:07 POC Glucose 130 H 140 H 157 H 05/06/18 11:22 POC Glucose 141 H Discharge Diet: 1800 Calorie Control Diet Discharge Activity: Return to Normal Activity, May not drive while taking narcotic pain medications. Home Medications: Medications to take at Discharge Fluoxetine [Prozac] 60 mg PO DAILY 09/29/16 Furosemide [Lasix] 20 mg PO DAILY 09/29/16 Gabapentin [Neurontin] 300 mg PO TID 09/29/16 Hydroxychloroquine [Plaquenil] 200 mg PO DAILYCM 09/29/16 Insulin Glargine [Lantus SoloStar Pen] 64 units SC QHS 09/29/16 Insulin Lispro [Humalog KwikPen] 5 unit SQ TIDCM 09/29/16 Metformin HCl [Metformin HCl ER] 500 mg PO BID 09/29/16 Omeprazole [Prilosec] 40 mg PO DAILY 09/29/16 Pravastatin [Pravachol] 20 mg PO QHS 09/29/16 buPROPion XL [Wellbutrin Xl] 150 mg PO DAILY 09/29/16 Meloxicam 7.5 mg PO DAILY 03/26/17 cholecalciferol (vitamin D3) 50,000 unit capsule 50,000 unit PO QWEEK 10/07/17 morphine ER 15 mg tablet,extended release 15 mg PO Q12H tab 10/07/17 Albuterol Inhaler [Ventolin Hfa] 2 puff INHALATION Q4H PRN PRN 05/03/18 Benzonatate [Tessalon Perle] 100 mg PO TID PRN PRN 05/03/18 Amox/Clavulanate Tablet [Augmentin Tablet] 875 mg PO BID #14 tablet 05/07/18 Following Prescrptions Were Given to Patient: Amox/Clavulanate Tablet [Augmentin Tablet] 875 mg PO BID #14 tablet Primary Care Physician: Steve Turcios MD [Primary Care Provider] - Please follow up with your Primary Care Physician in: in 5-7 days Disposition: Home Minutes spent on discharge:: 32 Medical Necessity - Tobacco Use Smoking Status: Never smoker Meaningful Use Info Meaningful Use Diagnoses (Choose all that apply): None applicable Code Visit Inpatient E&M: 45922 Disch Hosp
[2018-05-07 08:29] VITALS: O2SAT 95
--- NOTE | 2018-05-07 09:29 | CASEMGMT ---
ALONA MCCLURE discussed discharge plans with patient. Patient is agreeable to [facility] with 1st choice of [facility]. ALONA MCCLURE sent referral to [facility] for mcfp, PT/OT, and SW. Awaiting acceptance. ALONA MCCLURE will continue to follow this patient and plan for a safe discharge.
--- NOTE | 2018-05-07 09:32 | CASEMGMT ---
Social Work Note ALONA Wang updated this worker that pt's daughter is interested in this worker calling her to discuss community resources. ALVIN placed a call to pt's daughter Ludmila and informed her that this worker will include community resources including private duty aides, [facility], and Assisted Livings. ALVIN encouraged Ludmila to call assisted livings to determine costs and determine availability. ALVIN also informed Ludmila that HHC has been set up for pt via [facility] and ALONA MCCLURE is requesting a start date to be tomorrow or Saturday. Ludmila states understanding. Plan: [facility] Community services including private duty aides, [facility] and assisted living provided to pt's daughter via discharge paperwork. Brinda Nelson DESIGN TECH, BARREL STRAIGHTENER
--- NOTE | 2018-05-09 14:36 | CASEMGMT ---
ALONA CM DC PHONE CALL: DC Date: 05/07/18 DC Disposition: Home LACE/STRATA 19/07 Message left on pt's voicemail. Call back information given if questions re: f/u care, instructions or medications. Brendon NICOLEN RN ACM
== END 2018-05-07 10:45 | disposition home health service (06) | DRG 871 ==
LOC: ED 07:56 → MS3 17:58
PROVIDERS: Admitting Provider Family Medicine; Emergency Provider Emergency Medicine; Family Provider Family Medicine; PCP Family Medicine; Visit Provider Internal Medicine
DX: A41.9 Sepsis, unspecified organism (principal); J18.9 Pneumonia, unspecified organism; N17.0 Acute kidney failure with tubular necrosis; G93.41 Metabolic encephalopathy; J96.01 Acute respiratory failure with hypoxia; K52.1 Toxic gastroenteritis and colitis; R65.20 Severe sepsis without septic shock; K21.9 Gastro-esophageal reflux disease without esophagitis; E78.5 Hyperlipidemia, unspecified; I10 Essential (primary) hypertension; M32.9 Systemic lupus erythematosus, unspecified; M06.9 Rheumatoid arthritis, unspecified; G89.4 Chronic pain syndrome; E66.01 Morbid (severe) obesity due to excess calories; Z68.35 Body mass index [BMI] 35.0-35.9, adult; F41.8 Other specified anxiety disorders; G25.81 Restless legs syndrome; I45.10 Unspecified right bundle-branch block; M19.90 Unspecified osteoarthritis, unspecified site; E11.9 Type 2 diabetes mellitus without complications; T36.95XA Adverse effect of unspecified systemic antibiotic, initial encounter; Y92.239 Unspecified place in hospital as the place of occurrence of the external cause; D63.8 Anemia in other chronic diseases classified elsewhere; Z79.4 Long term (current) use of insulin; Z79.899 Other long term (current) drug therapy
CPT/HCPCS: 36415; 36600; 70450; 71045; 72170; 73564; 73590; 80048; 80076; 81001; 82803; 82962; 83605; 83735; 85025; 85027; 87040; 87493; 87506; 87804; 93005; 94002; 94003; 97110; 97116; 97162; 97166; 97530; 97535; 97802; 97803; 99285; J7030; A4216; J0295

== ENCOUNTER → 2018-06-04 10:23 | Outpatient (CLI) | payer MEDICARE, SELFPAY ==
[2018-05-16 13:33] VITALS: BMI 35.8
[2018-06-04 11:18] LABS: Amphetamine Urine VISTA NEGATIVE (<1000 ng/mL); Barbiturate Urine VISTA NEGATIVE (< 200 ng/mL); Benzodiazepine Urine VISTA NEGATIVE (< 200 ng/mL); Cocaine Urine VISTA NEGATIVE (< 300 ng/mL); Ecstacy Urine VISTA POSITIVE (< 500 ng/mL); Methadone Urine VISTA NEGATIVE (< 300 ng/mL); PCP Urine VISTA NEGATIVE (< 25 ng/mL); THC Urine VISTA NEGATIVE (< 50 ng/mL); Vista UDS pH Range 6
[2018-06-04 11:27] LABS: AST(SGOT) 26 U/L (15-37); Alanine Aminotransfer ALT/SGPT 38 U/L (13-56); Albumin, Serum 3.7 g/dL (3.2-5.0); Alkaline Phosphatase 186 U/L (45-117); Bilirubin, Direct 0.21 mg/dL (0.00-0.30); Cholesterol 156 mg/dL (200); High Density Lipoprotein 49 mg/dL; Protein, Total 7.7 g/dL (6.4-8.2); Triglycerides 210 mg/dL; Very Low Density Lipoprotein 42 mg/dL (5-40)
--- NOTE | 2018-06-04 14:48 | ECHOD_ITS ---
Reason For Study: MURMUR, EVAL FOR ENDOCARDITIS Procedure This was a 2D Doppler, Color Flow transthoracic echocardiogram. Exam performed in department. Left Ventricle Normal size and thickness. The estimated ejection fraction is 65 %. Normal diastology for age. No regional wall motion abnormalities noted. Right Ventricle Mildly dilated right ventricle. Normal systolic function. Atria Normal left atrium. Normal right atrium. Normal atrial septum. Mitral Valve The mitral valve is structurally normal. No prolapse or stenosis seen. Tricuspid Valve Normal tricuspid valve. Unable to estimate RV systolic pressure due to inadequate jet, pulmonary artery pressure probably normal. Aortic Valve Trisinus/trileaflet aortic valve. Mild diffuse aortic valve thickening. Mild focal aortic valve thickening. There is no aortic valvular vegetation. There is no aortic stenosis. Pulmonic Valve Normal pulmonic valve. Trivial pulmonic valve insufficiency. Great Vessels Normal aortic root. Normal arch. Normal inferior vena cava. Inferior vena cava collapse with sniff. Pericardium/Pleural No pericardial effusion. MMode/2D Measurements & Calculations LVIDd: 4.7 cm IVSd: 1.1 cm Ao root diam: 3.0 cm LVIDs: 3.1 cm LVPWd: 1.1 cm RVDd: 3.7 cm FS: 35.0 % LAV(MOD-bp): 47.7 ml LVAd ap4: 34.6 cm2 SV(MOD-sp4): 69.1 ml LAV(MOD-bp) Indexed: 23.5 ml/m2 EDV(MOD-sp4): 116.1 ml LAV(MOD-sp2): 43.8 ml EDV(sp4-el): 119.1 ml LAV(MOD-sp4): 48.9 ml LVAs ap4: 20.5 cm2 ESV(MOD-sp4): 47.0 ml ESV(sp4-el): 47.8 ml EF(MOD-sp4): 59.5 % EF(sp4-el): 59.9 % SV(sp4-el): 71.3 ml LA A4 area: 17.9 cm2 LA dimension(2D): 3.5 cm RA A4 area: 16.5 cm2 Time Measurements MV dec time: 0.27 sec Doppler Measurements & Calculations MV E max reggie: 112.0 cm/sec Lat Peak E' Reggie: 7.9 cm/sec Med Peak E' Reggie: 6.9 cm/sec MV A max reggie: 106.4 cm/sec E/E' lat: 14.2 E/E' med: 16.2 MV E/A: 1.1 Ao V2 max: 184.7 cm/sec LV V1 max: 114.9 cm/sec PA V2 max: 126.9 cm/sec Ao max P.6 mmHg LV V1 max P.3 mmHg Interpretation Summary The estimated ejection fraction is 65 %. Normal diastology for age. Mildly dilated right ventricle. Unable to estimate RV systolic pressure due to inadequate jet, pulmonary artery pressure probably normal. There is no aortic valvular vegetation. Compared to echo report dated 04/18/2013, LV function has remained the same. Pt now appears to have mild AV thickening. Ordering Physician: Davey Ocampo Referring Physician: JAKI VERDUGO Performed By: Adenike Alonso RDCS
== END ==
PROVIDERS: Family Provider Family Medicine; PCP Family Medicine; Referring Provider Internal Medicine Cardiovascular Disease; Visit Provider Internal Medicine Cardiovascular Disease
DX: A41.9 Sepsis, unspecified organism (principal); E11.9 Type 2 diabetes mellitus without complications; E78.5 Hyperlipidemia, unspecified; F11.20 Opioid dependence, uncomplicated
CPT/HCPCS: 80061; 80076; 80307; 93306

== ENCOUNTER 2019-03-27 14:49 | Emergency (ER) | payer MEDICARE, MEDICAID, SELFPAY ==
[2018-05-16 13:33] VITALS: BMI 35.8
[2019-03-27 14:51] VITALS: BP 99/49; PULSE 64; RESP 22; TEMP 36.3; O2SAT 92; BMI 36.6
[2019-03-27 15:36] VITALS: PULSE 88; RESP 20
[2019-03-27] MEDS: Ipratropium/Albuterol Sulfate 3 ML AMPUL.NEB INHALATION (15:36)
--- NOTE | 2019-03-27 15:46 | RAD_ITS ---
STUDY: X-RAY CHEST REASON FOR EXAM: Female, 64 years old. COUGH, SOB TECHNIQUE: PA and lateral COMPARISON: May 03, 2018 FINDINGS: Mild chronic interstitial changes more pronounced in the lower lobes. No acute infiltration.. There is no demonstrated pleural abnormality. Normal size heart. Normal mediastinum and robert. Normal visualized pulmonary arteries. Mildly calcified aortic arch and descending thoracic aorta. Spinal stimulator noted within the mid to upper thoracic canal. Normal visualized thoracic spine. Normal visualized ribs, clavicles, and shoulders. Postsurgical changes involving the lumbar spine There is no demonstrated abnormality of the visualized soft tissue structures of the upper abdomen. No significant change since prior exam RAD/Chest PA and Lateral IMPRESSION: Minor chronic interstitial changes. No acute cardiopulmonary pathology Electronically Signed: Raghu Castillo MD at 16:05 EST , Service support ,
--- NOTE | 2019-03-27 16:00 | ED.VISSUMM ---
- ER Visit Summary Date of Service: 03/27/19 Chief Complaint: Cough and shortness of breath History of Present Illness: The patient is a 64 F who presents with cough and shortness of breath that has been getting worse over the past 2 weeks. Patient states her cough and shortness of breath became acutely worse today. Patient denies any sputum production. Patient denies any fevers or chills. Patient denies any chest pain. Patient denies any sore throat, rhinorrhea, or ear pain. Patient states nothing makes her breathing better or worse. Physical Examination: Vital signs are stable. Patient is afebrile. Patient is in no acute distress. Oral mucosa is pink and moist. Neck is supple. Trachea is midline. There is no JVD. Heart was regular rate and rhythm. Lungs are clear and equal bilaterally. Abdomen is soft. Bowel sounds are normal. There is no tenderness. Cranial nerves II through XII are intact. There are no focal motor or sensory deficits noted. Extremities are intact. There is no calf tenderness or swelling. Test Results: PA and lateral chest x-ray was obtained. There are mild chronic changes but no acute cardiopulmonary process. These were interpreted by the radiologist and myself. Emergency Department Course and Treatment: Patient was given a DuoNeb aerosol here. Patient felt better on reevaluation. Patient was given an albuterol inhaler. Patient was instructed to follow-up with her primary care physician in 5 to 7 days. Patient understood and was agreeable with the plan. All questions were answered. Disposition: Discharge home Impression: 1. Acute bronchitis This note was generated with [email or web address] dictation software. It may contain incorrect words, spelling, and punctuation that were not noted in review of the chart prior to signing ED Disposition - Plan for ED Patient: Disposition: Home or Assisted Living Diagnosis: Acute bronchitis Instructions: BRONCHITIS, No Antibiotic (Adult) Prescriptions: Albuterol Inhaler [Ventolin Hfa] 1 - 2 puff INHALATION Q4H PRN PRN #1 inhaler PRN Reason: Wheezing Prescription Printed Referrals: Steve Turcios MD [Primary Care Provider] - 5-7 Days
[2019-03-27 16:06] VITALS: BP 127/47; PULSE 67; RESP 18; TEMP 36.4; O2SAT 97
== END 2019-03-27 16:28 | disposition home or self-care (01) ==
PROVIDERS: Emergency Provider Emergency Medicine; Family Provider Family Medicine; PCP Family Medicine
DX: J20.9 Acute bronchitis, unspecified (principal)
CPT/HCPCS: 71046; 94640; 99282

== ENCOUNTER 2019-03-29 12:22 | Inpatient (IN) | payer MEDICARE, SELFPAY ==
[2019-03-29] VITALS (16 sets, daily range): BP systolic 79–110; BP diastolic 52–91; PULSE 65–87; RESP 14–22; TEMP 36.8–37.6; O2SAT 91–98; BMI 38.5; BMI 37.8; BMI 37.9
--- NOTE | 2019-03-29 12:50 | RAD_ITS ---
STUDY: X-RAY CHEST REASON FOR EXAM: Female, 64 years old. WEAKNESS, SOB/ DYSPNEA TECHNIQUE: Single view of the chest was obtained COMPARISON: March 27, 2019 FINDINGS: Cardiac size is mildly enlarged. Mild pulmonary congestive changes. Patchy infiltrates in the right perihilar region noted. Spinal stenosis device is seen. IMPRESSION: Cardiomegaly with patchy reticulonodular infiltrates in the right perihilar region as well as the right upper lobe since previous examination Electronically Signed: Beau Yusuf, at 13:19 EST Tel , Service support , RAD/Chest 1 View (Portable)
[2019-03-29] MEDS: Ipratropium/Albuterol Sulfate 3 ML AMPUL.NEB INHALATION ×3 (12:58→22:33)
[2019-03-29] MEDS: 0.9% Normal Saline 1,000 ML 150 ML IV (13:13)
[2019-03-29 13:18] LABS: Bacteria 0 SEEN /hpf (None Seen); Mucous, Urine 0 SEEN /hpf (<or=2+); Red Blood Cells-Urine 0 SEEN /hpf (0-5); Squamous Epithelial Cells - UA 0 SEEN /hpf (5-10); White Blood Cells 0 SEEN /hpf (0-5)
[2019-03-29 13:20] LABS: Absolute Lymphocyte Count 0.61 X10^3/uL (0.83-4.51); Absolute Neutrophil Count 16.1 X10^3/uL (2.0-7.7); Basophil# 0.03 X10^3/uL; Basophil% 0.2 % (0-1); Eosinophil# 0.01 X10^3/uL; Eosinophils% 0.1 % (0-5); Hematocrit 35.1 % (37-47); Hemoglobin 10.7 g/dL (12.0-15.0); Lymphocyte # 0.61 X10^3/ul (4.0); Lymphocyte % 3.5 % (19-41); Mean Corp Hgb Conc 30.5 g/dL (32-36); Mean Corpuscular Hgb 29.2 pg (27.0-32.0); Mean Corpuscular Volume 95.6 fL (81-99); Mean Platelet Vol. 10.5 fl (6.2-12.0); Monocyte# 0.61 X10^3/uL; Monocyte% 3.5 % (0-10); NRBC Flagged by Analyzer 0 % (0-5); Neutrophil # 16.06 X10^3/uL (2.7-7.7); Neutrophil % 91.1 % (47-70); Platelet Count 195 K/mm3 (150-450); RBC Distribution Width CV 14.4 % (11.6-14.6); RBC Distribution Width SD 50.3 fl (35.1-43.9); Red Blood Count 3.67 M/mm3 (4.2-5.4); White Blood Count 17.6 K/mm3 (4.4-11.0)
[2019-03-29 13:23] LABS: Color, Urine Yellow (Yellow); Glucose, Dipstick Normal (Normal); Ketone-Dipstick Negative (Negative); Leukocyte Esterase-Dipstick Negative /ul (Negative); Nitrite-Dipstick Negative (Negative); Occult Blood-Urine Negative /ul (Negative); Protein-Dipstick 15 mg/dl (Negative); Urine Bilirubin Dipstick Negative (Negative); Urine Clarity Clear (Clear); Urine Urobilinogen Normal (Normal)
[2019-03-29 13:33] LABS: Anion Gap 5 (5-15); BUN 37 mg/dL (7-18); BUN/Creat Ratio 23.6 RATIO (10-20); Calcium,Total 8.3 mg/dL (8.5-10.1); Chloride 106 mmol/L (98-107); Creatinine, Serum 1.57 mg/dL (0.55-1.02); EST Glomerular Filtration Rate 35 mL/min (>60); Est Glom Filt Rate - Afr Amer 43 mL/min (>60); Glucose 189 mg/dL (74-106); Potassium 4.9 mmol/L (3.5-5.1); Sodium Level 134 mmol/L (136-145)
[2019-03-29 13:43] LABS: Lactic Acid 1.8 mmol/L (0.4-1.9)
[2019-03-29] MEDS: Ceftriaxone 1 GM/50 ML BAG IV (13:43)
--- NOTE | 2019-03-29 13:52 | ED.VISSUMM ---
- ER Visit Summary Date of Service: 03/29/19 Chief Complaint: [Generalized weakness] History of Present Illness: The patient is a 64 F [presents the emergency department generalized weakness for several days. Patient's had a cough for couple weeks. She was seen in the emergency department 2 days ago and had a chest x-ray and was diagnosed with a viral infection. Patient today had a mild fall where she had a fell onto her knees but really did not injure herself and then family could not get her back up. Patient was complaining felt short of breath. Patient's daughter states that she was somewhat confused this morning. Patient has history of diabetes, lupus, and depression.] Physical Examination: [HEENT-PERRLA, EOMI. Cranial nerves II through XII grossly intact. TMs clear. Mucous membranes moist. No adenopathy. No external evidence of trauma. No C-spine tenderness on palpation. Cardiovascular-regular rate and rhythm without murmur or ectopy Lungs-good aeration bilaterally. Patient has some faint expiratory wheezes. No excessive muscle use or retractions. No conversational dyspnea. Abdomen-normoactive bowel sounds, soft, nontender, no rebound or rigidity, no peritoneal signs. Extremities-intact ?4, normal range of motion, normal pulses, atraumatic] Test Results: [CBC with differential obtained showed a white count of 17.6, hemoglobin 10.7, hematocrit 35, platelets 195. Chemistries unremarkable. BUN was 37 and creatinine 1.57. Lactate was 1.8. Urinalysis was unremarkable. Chest x-ray obtained showed right upper lobe and right perihilar infiltrates which are new from 2 days ago.] Emergency Department Course and Treatment: [Patient had a liter normal same fluid bolus ordered. Patient was given Rocephin and Zithromax IV.] Treatment Plan: [Admit] Disposition: [Admit] Impression: [Community-acquired pneumonia Generalized weakness] This note was generated with [employer] dictation software. It may contain incorrect words, spelling, and punctuation that were not noted in review of the chart prior to signing ED Disposition - Plan for ED Patient: Referrals: Steve Turcios MD [Primary Care Provider] -
[2019-03-29] MEDS: 0.9% Normal Saline 1,000 ML 999 ML IV ×3 (13:56→15:52)
--- NOTE | 2019-03-29 14:03 | NURSING ---
DR IVETT JACOBSON
--- NOTE | 2019-03-29 14:04 | PCM.HP.STD ---
Problem List (1) Severe sepsis Status: Acute (2) CAP (community acquired pneumonia) Status: Acute (3) Dyspnea on exertion Status: Acute (4) Diastolic dysfunction Status: Chronic (5) Right bundle branch block Status: Chronic (6) Obesity, morbid, BMI 40.0-49.9 Status: Chronic (7) Lupus Status: Chronic (8) Hyperlipidemia Status: Chronic (9) Diabetes mellitus, type II Status: Chronic History of Present Illness Date of Admission: 03/29/19 Chief Complaint: Cough bronchitis-like symptoms for last 2 days along with shortness of breath The patient is a 64 year old F with history of diabetes mellitus type 2, dyslipidemia morbid obesity and lupus came to ER with worsening of cough, clear sputum along with shortness of breath for 2 days. Prior to that she came to ER on last Saturday for similar symptoms on 03/27 and was discharged home on albuterol inhaler. Patient also feels chest tightness/chest congestion on coughing. Denies fever or chills. As per the patient, for last 2 to 3 years she is frequently getting bronchitis and pneumonia, she was last admitted in May 07, 2018 for sepsis secondary to pneumonia. She worked in [employer] for more than 10 years and also history of intermittently smoking for about 5 to 7 years but less than 10 years. She quit completely 4 years ago. As per EMS note, she was also falling, weakness and struggling with walking. She denies fall to me. Clinically stroke was ruled out. In ED, her blood pressure was found low 82/61, 79/52, no tachycardia, low-grade fever 99.5, pulse ox 91% on room air, respiratory rate 22/min. Chest x-ray shows patchy reticulonodular infiltrate in right perihilar region as well as right upper lobe. Patient has been treated on severe sepsis with 3 L of normal saline bolus and antibiotics. Past Medical History Past Medical History (Chronic Problems): Chronic Problems (Last Reviewed 05/16/18 @ 13:33 by Carol Kennedy) Diastolic dysfunction (Chronic) Right bundle branch block (Chronic) Obesity, morbid, BMI 40.0-49.9 (Chronic) Lupus (Chronic) Hyperlipidemia (Chronic) Diabetes mellitus, type II (Chronic) Medical History: Medical History (Last Reviewed 05/16/18 @ 13:33 by Carol A Marcia) Diastolic dysfunction (Chronic) I51.9 Right bundle branch block (Chronic) I45.10 Obesity, morbid, BMI 40.0-49.9 (Chronic) E66.01 Lupus (Chronic) M32.9 Hyperlipidemia (Chronic) E78.5 Diabetes mellitus, type II (Chronic) E11.9 Anemia D64.9 Anxiety F41.9 Chronic pain G89.29 DDD (degenerative disc disease) Depression F32.9 Esophagitis K20.9 Fibromyalgia M79.7 GI bleed K92.2 Osteoarthritis M19.90 Peripheral neuropathy G62.9 Rheumatoid arteritis I00 Rheumatoid arthritis M06.9 Allergies No Known Allergies Allergy (Verified 03/29/19 12:26) Home Medications: Ambulatory Orders Medication Instructions Recorded Fluoxetine [Prozac] 60 mg PO DAILY 09/29/16 Furosemide [Lasix] 20 mg PO DAILY 09/29/16 Gabapentin [Neurontin] 300 mg PO TID 09/29/16 Hydroxychloroquine [Plaquenil] 200 mg PO DAILYCM 09/29/16 Insulin Glargine [Lantus SoloStar 64 units SC QHS 09/29/16 Pen] Insulin Lispro [Humalog KwikPen] 5 unit SQ TIDCM 09/29/16 Metformin HCl [Metformin HCl ER] 500 mg PO BID 09/29/16 Omeprazole [Prilosec] 40 mg PO DAILY 09/29/16 Pravastatin [Pravachol] 20 mg PO QHS 09/29/16 buPROPion XL [Wellbutrin Xl] 150 mg PO DAILY 09/29/16 Meloxicam 7.5 mg PO DAILY 03/26/17 cholecalciferol (vitamin D3) 50,000 unit PO QWEEK 10/07/17 50,000 unit capsule morphine 15 mg tablet,extended 15 mg PO TID tab 10/07/17 release Albuterol Inhaler [Ventolin Hfa] 1 - 2 puff INHALATION Q4H PRN PRN 03/27/19 #1 inhaler Tizanidine HCl [Zanaflex] 4 mg PO DAILY 03/29/19 Surgical History: Surgical History (Last Reviewed 05/16/18 @ 13:33 by Carol Kennedy) H/O repair of right rotator cuff Z98.890 History of carpal tunnel surgery Z98.890 History of left heart catheterization Onset Date: 08/01/07 Z98.890 History of lumbar fusion Z98.1 History of open reduction and internal fixation (ORIF) procedure Z98.890 right ankle History of total knee replacement Z96.659 History of tubal ligation Z98.51 Hx of cholecystectomy Z90.49 S/P insertion of spinal cord stimulator Z98.890 Surgical History: cholecystectomy, - - Back surgery (fusion, rods) x 2, R ankle surgery, R shoulder surgery, BL wrist CT release. 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 Denies: Head Aches Cardiovascular: Reports: Edema. Denies: Chest Pain, Palpitations Respiratory: Reports: Cough, Shortness of Breath, Sputum production, Wheezing. Denies: Shortness of breath at rest Gastrointestinal: Denies: Abdominal Pain, Nausea, Vomiting Genitourinary: Denies: Dysuria, Frequency, Hesitancy Musculoskeletal: Reports: Joint Pain. Denies: Joint Tenderness Skin: Denies: Rash, Wounds Neurological: Denies: Numbness, Tingling, Focal weakness Psychiatric: Denies: Anxiety, Depression, Homicidal Ideations, Suicidal Ideations Hematologic/ Lymphatic: Denies: Easy Bruising, Easy Bleeding VTE Information - Inpt Only VTE Present on Admission: No VTE Pharm Prophylaxis ordered?: Yes - Physical Exam Vitals/I&O's: Vital Signs Temp Pulse Resp BP Pulse Ox 99.4 F H 73 14 79/52 L 96 03/29/19 13:26 03/29/19 13:26 03/29/19 13:26 03/29/19 13:52 03/29/19 13:26 Oxygen Flow Rate (L/min) 2 Oxygen Delivery Method Nasal Cannula Weight: 231 lb 14.821 oz Body Mass Index (BMI) 38.5 Finger Stick Blood Glucose 216 Intake and Output for Last 24 Hours 03/27/19 03/28/19 03/29/19 23:59 23:59 23:59 Intake Total 2.5 / 2.5 Balance 2.5 / 2.5 General: Alert, Oriented x3, Cooperative HEENT: Atraumatic, PERRLA, EOMI, Normocephalic Oral: No Gingival or Mucosal Lesions/ Ulcerations, Dry Mucosa Neck: Supple, No JVD, Negative Carotid Bruits Lungs: Diminished - Air entry diminished in bilateral lung bases and and right chest anteriorly, Rhonchi, Short of Breath, Tachypneic Cardiovascular: Regular rate, Regular Rhythm, Normal S1, Normal S2, No murmurs Abdomen: Bowel Sounds Present, Soft, Non Tender, Non-Distended, No Hepato-splenomegaly Extremities: Capillary Refill Less than 3 Seconds, Edema Skin: No rashes, No breakdown Musculoskeletal: No Tenderness to Palpation of Joints or Extremities Neurological: Cranial nerves II-XII grossly intact, Deep Tendon Reflexes 2+/4 and Symmetrical, Neuro grossly intact Psych/Mental Status: Normal Affect, Appropriate Laboratory Results 03/29/19 12:55: Urine Color Yellow, Urine Clarity Clear, Urine pH 6.0, Ur Specific [place] 1.020, Urine Protein 15 H, Urine Glucose (UA) Normal, Urine Ketones Negative, Urine Occult Blood Negative, Urine Nitrite Negative, Urine Bilirubin Negative, Urine Urobilinogen Normal, Ur Leukocyte Esterase Negative, Urine RBC 0 SEEN, Urine WBC 0 SEEN, Ur Squamous Epith Cells 0 SEEN, Urine Bacteria 0 SEEN, Urine Mucus 0 SEEN 03/29/19 13:10: WBC 17.6 H, RBC 3.67 L, Hgb 10.7 L, Hct 35.1 L, MCV 95.6, MCH 29.2, MCHC 30.5 L, RDW Std Deviation 50.3 H, RDW Coeff of Vikram 14.4, Plt Count 195, MPV 10.5, Immature Gran % (Auto) 1.600 H, Neut % (Auto) 91.1 H, Lymph % (Auto) 3.5 L, [place] % (Auto) 3.5, Eos % (Auto) 0.1, Baso % (Auto) 0.2, Absolute Neuts (auto) 16.1 H, Absolute Lymphs (auto) 0.61 L, Nucleated RBC % 0 03/29/19 13:10: Sodium 134 L, Potassium 4.9, Chloride 106, Carbon Dioxide 23.0, Anion Gap 5, BUN 37 H, Creatinine 1.57 H, Estim Creat Clear Calc 33.00, Est GFR (MDRD) Af Amer 43 L, Est GFR (MDRD) Non-Af 35 L, BUN/Creatinine Ratio 23.6 H, Glucose 189 H, Calcium 8.3 L 03/29/19 13:10: Lactic Acid 1.8 Current Medications Sodium Chloride () 1,000 mls @ 150 mls/hr IV .Q6H40M SAMARA Last Infusion: 03/29/19 13:14 Dose: 150 mls/hr Documented by: Azithromycin 500 mg/ Dextrose 255 mls @ 250 mls/hr IV X1 ONE Stop: 03/29/19 14:23 Sodium Chloride () 1,000 mls @ 999 mls/hr IV .Q1H1M ONE Stop: 03/29/19 14:55 Last Admin: 03/29/19 13:56 Dose: 999 mls/hr Documented by: Assessment/Plan All Active Problems (Last Reviewed 05/16/18 @ 13:33 by Carol Kennedy) Severe sepsis (Acute) CAP (community acquired pneumonia) (Acute) Dyspnea on exertion (Acute) The patient is a 64 year old F with history of diabetes mellitus type 2, dyslipidemia morbid obesity and lupus came to ER with worsening of cough, clear sputum along with shortness of breath for 2 days. Prior to that she came to ER on last Saturday for similar symptoms on 03/27 and was discharged home on albuterol inhaler. Patient also feels chest tightness/chest congestion on coughing. Denies fever or chills. In ED, her blood pressure was found low 82/61, 79/52, no tachycardia, low-grade fever 99.5, pulse ox 91% on room air, respiratory rate 22/min. Chest x-ray shows patchy reticulonodular infiltrate in right perihilar region as well as right upper lobe. Patient has been treated on severe sepsis with 3 L of normal saline bolus and antibiotics. 1. Severe sepsis (blood pressure was found low 82/61, 79/52, no tachycardia, low-grade fever 99.5, pulse ox 91% on room air, respiratory rate 22/min leukocytosis 17.6 K) secondary to right perihilar/right upper lobe community-acquired pneumonia: Patient is being admitted and monitored bed. IV fluid normal saline at 30 mils per KG in 3 hours as per severe sepsis protocol. LFT PT/INR and PTT ordered. Lactic acid normal. Patient started on Rocephin and Zithromax in ER but because of severity, she has antibiotic to broad-spectrum vancomycin and Zosyn. Pneumonia work-up including urinary antigens, sputum culture, and MRSA nasal screen and blood cultures x2 ordered. 2. History of recurrent pneumonia and bronchitis with possible undiagnosed COPD/emphysema (history of exposure of SAND/FUMES and particulates): Bronchodilator DuoNeb every 4 hourly. Albuterol as needed. Pulmicort inhalation. Patient will need PFT as an outpatient. Currently does not seem patient has COPD severe exacerbation and hold off systemic Solu-Medrol as immunosuppression may worsen pneumonia. 3. Diabetes mellitus type 2: Accu-Chek decisions cover with Humalog sliding scale. Patient baseline long-acting insulin regimen. 4. Mild right-sided right-sided heart failure, right bundle branch block, hypertension, dyslipidemia: There is no EKG done in ER. EKG ordered. Echo in May 2018 reported as The estimated ejection fraction is 65 %. Normal diastology for age. Mildly dilated right ventricle. Unable to estimate RV systolic pressure due to inadequate jet, pulmonary artery pressure probably normal. There is no aortic valvular vegetation. Compared to echo report dated 04/18/2013, LV function has remained the same. Pt now appears to have mild AV thickening. Patient was seen by Dr. Ocampo in the office in May 2018 Lasix is on hold secondary to severe sepsis but can be resumed as she becomes euvolemic. 4. Other comorbidities include lupus, morbid obesity and others DVT prophylaxis: Lovenox 40 MG subcu daily Laboratory Results 03/29/19 12:55: Urine Color Yellow, Urine Clarity Clear, Urine pH 6.0, Ur Specific [place] 1.020, Urine Protein 15 H, Urine Glucose (UA) Normal, Urine Ketones Negative, Urine Occult Blood Negative, Urine Nitrite Negative, Urine Bilirubin Negative, Urine Urobilinogen Normal, Ur Leukocyte Esterase Negative, Urine RBC 0 SEEN, Urine WBC 0 SEEN, Ur Squamous Epith Cells 0 SEEN, Urine Bacteria 0 SEEN, Urine Mucus 0 SEEN 03/29/19 13:10: WBC 17.6 H, RBC 3.67 L, Hgb 10.7 L, Hct 35.1 L, MCV 95.6, MCH 29.2, MCHC 30.5 L, RDW Std Deviation 50.3 H, RDW Coeff of Vikram 14.4, Plt Count 195, MPV 10.5, Immature Gran % (Auto) 1.600 H, Neut % (Auto) 91.1 H, Lymph % (Auto) 3.5 L, [place] % (Auto) 3.5, Eos % (Auto) 0.1, Baso % (Auto) 0.2, Absolute Neuts (auto) 16.1 H, Absolute Lymphs (auto) 0.61 L, Nucleated RBC % 0 03/29/19 13:10: Sodium 134 L, Potassium 4.9, Chloride 106, Carbon Dioxide 23.0, Anion Gap 5, BUN 37 H, Creatinine 1.57 H, Estim Creat Clear Calc 33.00, Est GFR (MDRD) Af Amer 43 L, Est GFR (MDRD) Non-Af 35 L, BUN/Creatinine Ratio 23.6 H, Glucose 189 H, Calcium 8.3 L 03/29/19 13:10: Lactic Acid 1.8 Code Visit Inpatient E&M: 65846 Init Hosp L3
--- NOTE | 2019-03-29 14:20 | NURSING ---
PCU IVETT PNEUMONIA, SEPSIS
--- NOTE | 2019-03-29 15:08 | ED.RN ---
BARNETT PLACED, PT UNABLE TO GET OUT OF BED TO OBTAIN URINE SAMPLE, WEAK, DISORIENTED. DAUGHTER AT BEDSIDE, STATES PT WAS NOT ABLE TO STAND AT HOME. BARNETT PLACED TO OBTAIN URINE SAMPLE AND CONCERNS FOR SEPSIS. WILL NEED TO BE REMOVED IF PT IS NOT CRITICAL SEPSIS PT.
--- NOTE | 2019-03-29 15:17 | EKG12_ITS ---
Test Reason : Blood Pressure : / mmHG Vent. Rate : 069 BPM Atrial Rate : 069 BPM P-R Int : 240 ms QRS Dur : 146 ms QT Int : 446 ms P-R-T Axes : 060 014 015 degrees QTc Int : 477 ms Sinus rhythm with marked sinus arrhythmia with 1st degree A-V block Right bundle branch block Abnormal ECG No previous ECGs available Confirmed by RALPH YIN, CARLYLE ([id number]), editor in chief EDI JONES ([id number] on 04/03/2019 11:16:25 AM Referred By: Chris Cho Confirmed By:ARY ROSAS MD
[2019-03-29 16:08] LABS: Partial Thromboplast Time 31.8 Seconds (24.1-36.2)
[2019-03-29 16:29] LABS: AST(SGOT) 37 U/L (15-37); Alanine Aminotransfer ALT/SGPT 34 U/L (13-56); Albumin, Serum 2.9 g/dL (3.2-5.0); Alkaline Phosphatase 160 U/L (45-117); Bilirubin, Direct 0.23 mg/dL (0.00-0.30); Globulin 3.9 g/dL (2.2-4.2); Magnesium 2.2 mg/dL (1.6-2.6); Protein, Total 6.8 g/dL (6.4-8.2)
[2019-03-29 16:36] LABS: International Normalized Ratio 1.2; Prothrombin Time (Protime)PT. 15.3 SECONDS (11.7-14.9)
[2019-03-29] MEDS: Insulin Lispro 100 UNIT/ML INSULN.PEN SC ×2 (16:44→16:45)
[2019-03-29] MEDS: Enoxaparin 40 MG/0.4 ML Syringe SC (16:44)
[2019-03-29] MEDS: Lactated Ringers 1,000 ML 150 ML IV ×2 (16:49→23:15)
--- NOTE | 2019-03-29 16:51 | PCM.RX.CS ---
Consult Pharmacy has been consulted to manage selected antiobiotic: Vancomycin Type of Consult: New start Suspected Infection: Sepsis, Pneumonia Labs: Sodium 134 mmol/L (136-145) L 03/29/19 13:10 Potassium 4.9 mmol/L (3.5-5.1) 03/29/19 13:10 Chloride 106 mmol/L (98-107) 03/29/19 13:10 Carbon Dioxide 23.0 mmol/L (21.0-32.0) 03/29/19 13:10 Anion Gap 5 (5-15) 03/29/19 13:10 BUN 37 mg/dL (7-18) H 03/29/19 13:10 Creatinine 1.57 mg/dL (0.55-1.02) H 03/29/19 13:10 Est GFR (MDRD) Af Amer 43 mL/min (>60) L 03/29/19 13:10 Est GFR (MDRD) Non-Af 35 mL/min (>60) L 03/29/19 13:10 BUN/Creatinine Ratio 23.6 RATIO (10-20) H 03/29/19 13:10 Glucose 189 mg/dL (74-106) H 03/29/19 13:10 Microbiology: Microbiology 03/29/19 12:55 Urine, Clean Catch Streptococcus pneumoniae Antigen (M - Final 03/29/19 12:55 Urine, Clean Catch Legionella Antigen - Final Weight used for dosin.2 kg Estimated Creatinine Clearance: 43.7ML/MIN Goal Trough: 15-20 mcg/mL Pharmacy Plan for Drug Dosing: Give initial dose of 1500mg IV x1 as ordered, then continue with 750mg IV q12h. Will obtain a trough level before the 4th total dose. Pharmacy Service will continue to monitor and adjust dosing as required. Follow-Up Labs: Trough Vancomycin Labs to be done on [date and time ordered]: 03/31/19 03:30
[2019-03-29] MEDS: Gabapentin 300 MG Capsule PO (17:01)
[2019-03-29] MEDS: Glucerna Shake 120 ML LIQUID PO ×2 (17:01→22:03)
[2019-03-29 17:22] LABS: M R Staph aureus DNA By PCR Negative (Negative); Probe Check PASS; Specimen Processing Control PASS
[2019-03-29 17:30] LABS: Bedside Glucose 188 mg/dL (70-110)
--- NOTE | 2019-03-29 19:44 | CPS ---
pt refused starting bipap at this time
[2019-03-29] MEDS: morphine SR 15 MG Tablet PO (21:58)
[2019-03-29] MEDS: Pravastatin 20 MG Tablet PO (21:59)
[2019-03-29 22:10] LABS: Bedside Glucose 99 mg/dL (70-110)
[2019-03-29] MEDS: guaiFENesin 1,200 MG Tablet 1200 MG PO (23:12)
[2019-03-30] VITALS (13 sets, daily range): BP systolic 97–146; BP diastolic 56–63; PULSE 66–80; RESP 17–20; TEMP 36.9–37.6; O2SAT 94–99
[2019-03-30] MEDS: Ipratropium/Albuterol Sulfate 3 ML AMPUL.NEB INHALATION ×5 (03:20→23:49)
[2019-03-30] MEDS: Lactated Ringers 1,000 ML 150 ML IV ×2 (05:13→12:59)
[2019-03-30] MEDS: morphine SR 15 MG Tablet PO ×2 (05:16→14:05)
--- NOTE | 2019-03-30 05:55 | RAD_ITS ---
STUDY: X-RAY CHEST REASON FOR EXAM: Female, 64 years old. Weakness with cough and shortness of breath. TECHNIQUE: Frontal and lateral views of the chest. COMPARISON: March 29, 2019 FINDINGS: Mild diffuse interstitial pattern with new patchy opacity at the right base peripherally representing atelectasis or early/developing pneumonia. There is no demonstrated pleural abnormality. Stable cardiomegaly. Normal mediastinum and robert. Normal visualized pulmonary arteries. Normal visualized aortic arch and descending thoracic aorta. Normal visualized thoracic spine. Normal visualized ribs, clavicles, and shoulders. Epidural catheter present and unchanged. RAD/Chest PA and Lateral IMPRESSION: Cardiomegaly with diffuse interstitial pattern and new anterior opacity at right base peripherally representing atelectasis or early/developing pneumonia. Electronically Signed: Michael Moreno MD at 14:00 EST , Service support ,
[2019-03-30 06:40] LABS: Absolute Lymphocyte Count 0.92 X10^3/uL (0.83-4.51); Absolute Neutrophil Count 10.5 X10^3/uL (2.0-7.7); Basophil# 0.02 X10^3/uL; Basophil% 0.2 % (0-1); Eosinophil# 0.15 X10^3/uL; Eosinophils% 1.2 % (0-5); Hematocrit 33.8 % (37-47); Lymphocyte # 0.92 X10^3/ul (4.0); Lymphocyte % 7.5 % (19-41); Mean Corp Hgb Conc 29.6 g/dL (32-36); Mean Corpuscular Hgb 29.2 pg (27.0-32.0); Mean Corpuscular Volume 98.5 fL (81-99); Mean Platelet Vol. 10.7 fl (6.2-12.0); Monocyte# 0.62 X10^3/uL; NRBC Flagged by Analyzer 0 % (0-5); Neutrophil # 10.54 X10^3/uL (2.7-7.7); Neutrophil % 85.5 % (47-70); Platelet Count 175 K/mm3 (150-450); RBC Distribution Width CV 14.5 % (11.6-14.6); RBC Distribution Width SD 52.6 fl (35.1-43.9); Red Blood Count 3.43 M/mm3 (4.2-5.4); White Blood Count 12.3 K/mm3 (4.4-11.0)
[2019-03-30 07:10] LABS: Anion Gap 5 (5-15); BUN 27 mg/dL (7-18); BUN/Creat Ratio 24.5 RATIO (10-20); Chloride 111 mmol/L (98-107); EST Glomerular Filtration Rate 53 mL/min (>60); Est Glom Filt Rate - Afr Amer 65 mL/min (>60); Glucose 103 mg/dL (74-106); Potassium 3.8 mmol/L (3.5-5.1); Sodium Level 138 mmol/L (136-145); Thyroid Stim Hormone (TSH) 0.15 uIU/mL (0.358-3.74)
[2019-03-30 08:30] LABS: Bedside Glucose 96 mg/dL (70-110)
[2019-03-30] MEDS: Hydroxychloroquine 200 MG Tablet PO (09:12)
[2019-03-30] MEDS: Gabapentin 300 MG Capsule PO ×3 (09:13→17:24)
[2019-03-30] MEDS: Furosemide 20 MG Tablet PO (09:14)
[2019-03-30] MEDS: buPROPion (XL) 150 MG TABLET.XL PO (09:14)
[2019-03-30] MEDS: FLUoxetine 20 MG Capsule 60 MG PO (09:14)
[2019-03-30] MEDS: Glucerna Shake 120 ML LIQUID PO ×2 (09:14→12:58)
[2019-03-30] MEDS: Enoxaparin 40 MG/0.4 ML Syringe SC (09:15)
[2019-03-30] MEDS: tiZANidine HCl 2 MG Tablet 4 MG PO (09:15)
[2019-03-30] MEDS: Pantoprazole Sodium 40 MG Tablet PO (09:15)
[2019-03-30] MEDS: guaiFENesin 1,200 MG Tablet 1200 MG PO ×2 (10:46→21:16)
[2019-03-30] MEDS: levoFLOXacin 500 MG Tablet PO (10:46)
[2019-03-30 11:51] LABS: Bedside Glucose 111 mg/dL (70-110)
--- NOTE | 2019-03-30 13:30 | CASEMGMT ---
Addendum entered by Brunilda Hirsch 03/30/19 17:21: 1445: Call received from @ [facility]. She states they are able to accept pt. She was made aware anticipate discharge tomorrow 03/31. She states start of care will be 04/02. Original Note: RN CM FISH[employer] DIVISION CHIEF CM to room to meet with patient for initial transition planning/care coordination assessment. RN REN introduced self and role at [facility]. Pt voices understanding and consents to assessment at this time. Pt resting in bed in no distress at this time. Pt is A/O at this time and answers all questions appropriately. Care providers, pharmacy, and demographics verified/updated at this time. PCP: Tam Specialists: [facility], [place]--pain mgmt [facility] Pres[facility] Benefit: Living Will/HPOA: has both LW and HCPOA, who is her daughterLudmila. LNOK: daughter, Ludmial. Mother. Living Arrangements: Lives with her mother in a one-story home. Pt is independent with ADL's. Sponge bathes self. Mother and pt share home mgmt tasks. Daughter, Ludmila, lives nearby. Transportation: Pt's mother drives. States her mom will take her home @ discharge. Denies transportation concerns. DME: has the following DME: cane, walker. Glucometer--states it works well and she has all the needed supplies. Does not have home O2. Pt states no need for further DME at this time. HHC/SNF: Hx of SNF after knee surgery but does not remember the name of it. Hx of [facility]. PT/OT evals reviewed. PT recommending further therapy. Pt made aware. Pt wishes to return home and would like [facility] @ d/c. Given list of local [facility] agencies. Pt states prefers [facility]. CM to follow for home oxygen needs and any further discharge planning/needs. Pt voices no further concerns/needs at this time. Advised pt to ask for CM if any further questions/concerns/needs arise. Voices understanding. Call placed to @ [facility] and message left on her VM with referral. PLAN: Home w/[facility]. Angelo FOLEY RN, CM
[2019-03-30 16:06] LABS: Bedside Glucose 131 mg/dL (70-110)
--- NOTE | 2019-03-30 16:20 | NURSING ---
Patient was lowered to floor while ambulating with staff from bathroom to chair. Fall huddle was called. MD was notified.
[2019-03-30 17:35] LABS: Bedside Glucose 136 mg/dL (70-110)
--- NOTE | 2019-03-30 18:29 | PCM.PROGNOTE ---
Subjective: Patient was seen and examined today, her white blood cell count today is 12.3. Patient had an episode this afternoon where she slumped to the ground while trying to walk, she had no injury. Patient's maximal temperature today was 99.6. - Physical Exam Vitals/I&O's: Vital Signs Temp Pulse Resp BP Pulse Ox 98.7 F 78 18 146/57 H 99 03/30/19 16:00 03/30/19 16:00 03/30/19 16:00 03/30/19 16:00 03/30/19 16:00 Oxygen Flow Rate (L/min) 2 Oxygen Delivery Method Nasal Cannula Weight: 103.1 kg Body Mass Index (BMI) 37.8 Finger Stick Blood Glucose 216 Intake and Output for Last 24 Hours 03/28/19 03/29/19 03/30/19 23:59 23:59 23:59 Intake Total 6040.0 / 6040.0 2756.5 / 2756.5 Output Total 1100 / 1100 300 / 300 Balance 4940.0 / 4940.0 2456.5 / 2456.5 General: Alert, Oriented x3, Cooperative, No apparent distress, Well developed HEENT: Atraumatic, PERRLA, EOMI, Normocephalic Oral: Moist Mucosa Neck: Supple, Trachea Midline, Thyroid Normal Size and Texture Lungs: Clear to auscultation, Normal air movement, No rhonchi, No wheeze Cardiovascular: Regular rate, Regular Rhythm, Normal S1, Normal S2, No murmurs Abdomen: Bowel Sounds Present, Soft, Non Tender, Non-Distended, Obese Extremities: No clubbing, No cyanosis, No edema, Capillary Refill Less than 3 Seconds Skin: No rashes, No breakdown Musculoskeletal: No Tenderness to Palpation of Joints or Extremities Neurological: Cranial nerves II-XII grossly intact, Neuro grossly intact, Sensory exam intact to light touch and pain Psych/Mental Status: Normal Affect, Appropriate, Alert and oriented to time, place, person, mood and affect Microbiology Past 72 Hours 03/29/19 12:57 Mucosa - Nasopharyngeal Respiratory Panel (PCR) - Final 03/29/19 12:55 Urine, Clean Catch Streptococcus pneumoniae Antigen (M - Final 03/29/19 12:55 Urine, Clean Catch Legionella Antigen - Final Laboratory Results 03/29/19 19:08: Troponin I 0.112 H 03/29/19 21:57: Troponin I 0.093 H 03/29/19 22:00: POC Glucose 99 03/30/19 00:46: Troponin I 0.059 H 03/30/19 05:45: Sodium 138, Potassium 3.8, Chloride 111 H, Carbon Dioxide 22.0, Anion Gap 5, BUN 27 H, Creatinine 1.10 H, Estim Creat Clear Calc 47.10, Est GFR (MDRD) Af Amer 65, Est GFR (MDRD) Non-Af 53 L, BUN/Creatinine Ratio 24.5 H, Glucose 103, Calcium 8.0 L, TSH 0.15 L 03/30/19 05:45: WBC 12.3 H, RBC 3.43 L, Hgb 10.0 L, Hct 33.8 L, MCV 98.5, MCH 29.2, MCHC 29.6 L, RDW Std Deviation 52.6 H, RDW Coeff of Vikram 14.5, Plt Count 175, MPV 10.7, Immature Gran % (Auto) 0.600, Neut % (Auto) 85.5 H, Lymph % (Auto) 7.5 L, Noble % (Auto) 5.0, Eos % (Auto) 1.2, Baso % (Auto) 0.2, Absolute Neuts (auto) 10.5 H, Absolute Lymphs (auto) 0.92, Nucleated RBC % 0 03/30/19 08:08: POC Glucose 96 03/30/19 11:14: POC Glucose 111 H 03/30/19 15:58: POC Glucose 131 H 03/30/19 17:20: POC Glucose 136 H Current Medications Acetaminophen (Tylenol) 650 mg PO Q6H PRN PRN PRN Reason: Pain Score 1-3/Temp > 100.7 F Albuterol/Ipratropium (Duoneb) 3 ml INHALATION Q4H.RT [facility] Last Admin: 03/30/19 15:03 Dose: Not Given Documented by: Bupropion HCl (Wellbutrin Xl) 150 mg PO DAILY [facility] Last Admin: 03/30/19 09:14 Dose: 150 mg Documented by: Enoxaparin Sodium (Lovenox) 40 mg SC DAILY [facility] Last Admin: 03/30/19 09:15 Dose: 40 mg Documented by: Fluoxetine HCl (Prozac) 60 mg PO DAILY [facility] Last Admin: 03/30/19 09:14 Dose: 60 mg Documented by: Furosemide (Lasix) 20 mg PO DAILY [facility] Last Admin: 03/30/19 09:14 Dose: 20 mg Documented by: Gabapentin (Neurontin) 300 mg PO TIDCM [facility] Last Admin: 03/30/19 17:24 Dose: 300 mg Documented by: Glucagon () 1 mg IM .X1 PRN PRN Reason: Hypoglycemia Guaifenesin (Mucinex) 1,200 mg PO BID [facility] Last Admin: 03/30/19 10:46 Dose: 1,200 mg Documented by: Hydroxychloroquine Sulfate (Plaquenil) 200 mg PO DAILYCM [facility] Last Admin: 03/30/19 09:12 Dose: 200 mg Documented by: Dextrose (Dextrose 10%-Water) 250 mls @ 999 mls/hr IV .Q16M PRN; Protocol PRN Reason: HYPOGLYCEMIA Sodium Chloride () 250 mls @ 15 mls/hr IV .[id number] PRN PRN Reason: Saline Flush Sodium Chloride () 250 mls @ 15 mls/hr IV .[id number] PRN PRN Reason: Additional IVPB Infusion Last Infusion: 03/30/19 05:16 Dose: 0 mls/hr Documented by: Insulin Glargine (Lantus (Bkc)) 60 units SC QHS [facility] Last Admin: 03/29/19 22:13 Dose: Not Given Documented by: Insulin Human Lispro (Humalog Kwikpen (Bkc)) 0 unit SC ACHS [facility]; Protocol Last Admin: 03/30/19 17:22 Dose: Not Given Documented by: Insulin Human Lispro (Humalog Kwikpen (Bkc)) 5 unit SC TIDCM [facility] Last Admin: 03/30/19 17:24 Dose: Not Given Documented by: Levofloxacin (Levaquin Tablet) 500 mg PO DAILY@0600 [facility] Morphine Sulfate () 2 mg IV Q3H PRN PRN PRN Reason: Pain Score 6-10/10 Morphine Sulfate (Ms Contin) 15 mg PO TID [facility] Last Admin: 03/30/19 14:05 Dose: 15 mg Documented by: Nitroglycerin (Nitrostat) 0.4 mg SUBLINGUAL Q5M PRN PRN Reason: CARDIAC/CHEST PAIN Nutritional Formula (Lactose Free) (Rosalind Duron) 120 ml PO 4X/DAY [facility] Last Admin: 03/30/19 17:24 Dose: Not Given Documented by: Ondansetron HCl (Zofran) 4 mg IV Q8H PRN PRN PRN Reason: NAUSEA/VOMITING Oxycodone HCl (Oxyir) 5 mg PO Q4H PRN PRN PRN Reason: Pain Score 4-5/10 Pantoprazole Sodium (Protonix) 40 mg PO DAILY [facility] Last Admin: 03/30/19 09:15 Dose: 40 mg Documented by: Pravastatin Sodium (Pravachol) 20 mg PO QHS [facility] Last Admin: 03/29/19 21:59 Dose: 20 mg Documented by: Prochlorperazine Edisylate (Compazine Iv) 5 mg IV Q4H PRN PRN PRN Reason: Breakthrough Nausea/Vomiting Senna/Docusate Sodium (Senokot-S, Shaniqua-Colace) 2 tablet PO BID PRN PRN PRN Reason: Constipation Sodium Chloride () 10 - 40 ml IV UD PRN PRN Reason: SALINE FLUSH Tizanidine HCl (Zanaflex) 4 mg PO DAILY [facility] Last Admin: 03/30/19 09:15 Dose: 4 mg Documented by: Medical Necessity - Tobacco Use Smoking Status: Former smoker Assessment/Plan All Active Problems (Last Reviewed 05/16/18 @ 13:33 by Carol Kennedy) Severe sepsis (Acute) CAP (community acquired pneumonia) (Acute) Dyspnea on exertion (Acute) #1 severe sepsis secondary to community-acquired pneumonia-organism unknown #2 community-acquired pneumonia-organism unknown, continue present antibiotics, patient's urine antigens and respiratory panel were unremarkable, blood cultures are pending #3 hypoxia secondary to #2-continue to wean O2 if possible #4 acute debility secondary to severe sepsis-continue PT and OT #4 type 2 diabetes #5 troponin elevation-secondary to severe sepsis #6 dehydration-continue to monitor labs I do not think the patient presently has congestive heart failure or was admitted with congestive heart failure Code Visit Inpatient E&M: 53170 Subs Hosp L2
[2019-03-30] MEDS: Pravastatin 20 MG Tablet PO (21:16)
[2019-03-30 22:10] LABS: Bedside Glucose 121 mg/dL (70-110)
[2019-03-31] VITALS (14 sets, daily range): BP systolic 133–153; BP diastolic 48–68; PULSE 61–85; RESP 14–20; TEMP 36.7–37.1; O2SAT 95–98
[2019-03-31] MEDS: morphine SR 15 MG Tablet PO ×3 (05:36→21:13)
[2019-03-31] MEDS: levoFLOXacin 500 MG Tablet PO (05:37)
[2019-03-31] MEDS: Ipratropium/Albuterol Sulfate 3 ML AMPUL.NEB INHALATION ×5 (07:12→23:13)
[2019-03-31] MEDS: Gabapentin 300 MG Capsule PO ×3 (07:52→16:11)
[2019-03-31] MEDS: Furosemide 20 MG Tablet PO (07:53)
[2019-03-31] MEDS: Hydroxychloroquine 200 MG Tablet PO (07:53)
[2019-03-31] MEDS: Enoxaparin 40 MG/0.4 ML Syringe SC (07:53)
[2019-03-31] MEDS: Glucerna Shake 120 ML LIQUID PO ×2 (07:53→13:07)
[2019-03-31] MEDS: guaiFENesin 1,200 MG Tablet 1200 MG PO ×2 (07:54→21:12)
[2019-03-31] MEDS: Pantoprazole Sodium 40 MG Tablet PO (07:54)
[2019-03-31] MEDS: FLUoxetine 20 MG Capsule 60 MG PO (07:54)
[2019-03-31] MEDS: tiZANidine HCl 2 MG Tablet 4 MG PO (07:55)
[2019-03-31] MEDS: buPROPion (XL) 150 MG TABLET.XL PO (07:55)
[2019-03-31] MEDS: Insulin Lispro 100 UNIT/ML INSULN.PEN SC ×4 (07:59→16:11)
[2019-03-31 08:11] LABS: Bedside Glucose 121 mg/dL (70-110)
[2019-03-31 09:09] LABS: Absolute Lymphocyte Count 0.63 X10^3/uL (0.83-4.51); Absolute Neutrophil Count 8.2 X10^3/uL (2.0-7.7); Basophil# 0.03 X10^3/uL; Basophil% 0.3 % (0-1); Eosinophil# 0.17 X10^3/uL; Eosinophils% 1.7 % (0-5); Hematocrit 31.2 % (37-47); Hemoglobin 9.4 g/dL (12.0-15.0); Lymphocyte # 0.63 X10^3/ul (4.0); Lymphocyte % 6.4 % (19-41); Mean Corp Hgb Conc 30.1 g/dL (32-36); Mean Corpuscular Volume 96.3 fL (81-99); Mean Platelet Vol. 9.7 fl (6.2-12.0); Monocyte# 0.77 X10^3/uL; Monocyte% 7.8 % (0-10); NRBC Flagged by Analyzer 0 % (0-5); Neutrophil % 83.3 % (47-70); Platelet Count 181 K/mm3 (150-450); RBC Distribution Width CV 14.3 % (11.6-14.6); RBC Distribution Width SD 50.6 fl (35.1-43.9); Red Blood Count 3.24 M/mm3 (4.2-5.4); White Blood Count 9.9 K/mm3 (4.4-11.0)
--- NOTE | 2019-03-31 09:48 | CASEMGMT ---
global compensation analyst said that patient's daughter came in last night and said she would be more comfortable if patient went to a [facility]. SW spoke with patient, introduced self and role at [facility]. SW spoke with patient about going somewhere for rehab at discharge. She said she thinks she will be fine going home. She said if SW would have asked her yesterday she would have had a different answer. SW asked if therapy saw her yet today and she said they have not. SW told her we can see how she does and feels with therapy today. Guillermina VILLA DIETITIAN
[2019-03-31 11:25] LABS: Bedside Glucose 167 mg/dL (70-110)
--- NOTE | 2019-03-31 12:07 | CASEMGMT ---
Physician spoke with patient and she agreed to go to [facility] for rehab. SW called [facility] with referral and also faxed information. Plan: [facility] pending their acceptance. Guillermina VILLA MSW
--- NOTE | 2019-03-31 13:43 | CASEMGMT ---
[facility] can accept patient. [facility]VIN completed convalescent on [facility]. ALVIN called patient's daughter and let her know. She said she could transport as long as someone helps patient in and out of the car. ALVIN told her that the staff here will help and she can go inside at [facility] and let them know she needs assist getting her inside. ALVIN told her someone will call her when discharge is in the computer. Plan: [facility] under convalescent stay. Patient's daughter will transport. Guillermina VILLA MSW
[2019-03-31 16:16] LABS: Bedside Glucose 105 mg/dL (70-110)
--- NOTE | 2019-03-31 19:44 | PN_ITS ---
Subjective: Patient was seen and examined today, she appears lethargic but I was able to have a conversation with her this morning. She is agreed to go to a retirement facility short-term if she is accepted. Patient's white cell count today was 9.9, hemoglobin appears stable. Patient remains afebrile. - Physical Exam Vitals/I&O's: Vital Signs Temp Pulse Resp BP Pulse Ox 98.0 F 72 16 133/53 H 98 03/31/19 15:05 03/31/19 18:56 03/31/19 15:08 03/31/19 15:05 03/31/19 15:05 Oxygen Flow Rate (L/min) 2 Oxygen Delivery Method Room Air Weight: 103.8 kg Body Mass Index (BMI) 37.8 Finger Stick Blood Glucose 216 Intake and Output for Last 24 Hours 03/29/19 03/30/19 03/31/19 23:59 23:59 23:59 Intake Total 6040.0 / 6040.0 2876.5 / 2876.5 970 / 970 Output Total 1100 / 1100 300 / 300 Balance 4940.0 / 4940.0 2576.5 / 2576.5 970 / 970 General: Oriented x3, Cooperative, No apparent distress, Well developed, Lethargic HEENT: Atraumatic, PERRLA, EOMI, Normocephalic Oral: Moist Mucosa Neck: Supple, Trachea Midline, Thyroid Normal Size and Texture Lungs: Clear to auscultation, Normal air movement, No rhonchi, No wheeze, No rales Cardiovascular: Regular rate, Regular Rhythm, Normal S1, Normal S2, No murmurs, PMI Normal, No rub noted, No Gallop Abdomen: Bowel Sounds Present, Soft, Non Tender, Non-Distended, No hernias noted Extremities: No clubbing, No edema, Capillary Refill Less than 3 Seconds Skin: No rashes, No breakdown Musculoskeletal: No Tenderness to Palpation of Joints or Extremities Neurological: Cranial nerves II-XII grossly intact, Neuro grossly intact, Sensory exam intact to light touch and pain Psych/Mental Status: Flat Affect, - - Patient is somnolent but responds appropriately to questions Microbiology Past 72 Hours 03/29/19 13:10 Blood Culture (Wb) - Left Forearm Blood Culture - Preliminary No growth in 48 hours. 03/29/19 13:40 Blood Culture (Wb) - Venous Blood Culture - Preliminary No growth in 48 hours. 03/29/19 12:55 Urine, Clean Catch Urine Culture - Preliminary Culture exhibits no growth. 03/29/19 12:57 Mucosa - Nasopharyngeal Respiratory Panel (PCR) - Final 03/29/19 12:55 Urine, Clean Catch Streptococcus pneumoniae Antigen (M - Final 03/29/19 12:55 Urine, Clean Catch Legionella Antigen - Final Laboratory Results 03/30/19 21:15: POC Glucose 121 H 03/31/19 07:59: POC Glucose 121 H 03/31/19 09:02: WBC 9.9, RBC 3.24 L, Hgb 9.4 L, Hct 31.2 L, MCV 96.3, MCH 29.0, MCHC 30.1 L, RDW Std Deviation 50.6 H, RDW Coeff of Vikrma 14.3, Plt Count 181, MPV 9.7, Immature Gran % (Auto) 0.500, Neut % (Auto) 83.3 H, Lymph % (Auto) 6.4 L, [place]cho % (Auto) 7.8, Eos % (Auto) 1.7, Baso % (Auto) 0.3, Absolute Neuts (auto) 8.2 H, Absolute Lymphs (auto) 0.63 L, Nucleated RBC % 0 03/31/19 11:14: POC Glucose 167 H 03/31/19 16:10: POC Glucose 105 Current Medications Acetaminophen (Tylenol) 650 mg PO Q6H PRN PRN PRN Reason: Pain Score 1-3/Temp > 100.7 F Albuterol/Ipratropium (Duoneb) 3 ml INHALATION Q4H.RT [facility] Last Admin: 03/31/19 15:08 Dose: 3 ml Documented by: Bupropion HCl (Wellbutrin Xl) 150 mg PO DAILY [facility] Last Admin: 03/31/19 07:55 Dose: 150 mg Documented by: Enoxaparin Sodium (Lovenox) 40 mg SC DAILY [facility] Last Admin: 03/31/19 07:53 Dose: 40 mg Documented by: Fluoxetine HCl (Prozac) 60 mg PO DAILY [facility] Last Admin: 03/31/19 07:54 Dose: 60 mg Documented by: Furosemide (Lasix) 20 mg PO DAILY [facility] Last Admin: 03/31/19 07:53 Dose: 20 mg Documented by: Gabapentin (Neurontin) 300 mg PO TIDCM [facility] Last Admin: 03/31/19 16:11 Dose: 300 mg Documented by: Glucagon () 1 mg IM .X1 PRN PRN Reason: Hypoglycemia Guaifenesin (Mucinex) 1,200 mg PO BID [facility] Last Admin: 03/31/19 07:54 Dose: 1,200 mg Documented by: Hydroxychloroquine Sulfate (Plaquenil) 200 mg PO DAILYCM [facility] Last Admin: 03/31/19 07:53 Dose: 200 mg Documented by: Dextrose (Dextrose 10%-Water) 250 mls @ 999 mls/hr IV .Q16M PRN; Protocol PRN Reason: HYPOGLYCEMIA Sodium Chloride () 250 mls @ 15 mls/hr IV .[id number] PRN PRN Reason: Saline Flush Sodium Chloride () 250 mls @ 15 mls/hr IV .[id number] PRN PRN Reason: Additional IVPB Infusion Last Infusion: 03/30/19 05:16 Dose: 0 mls/hr Documented by: Insulin Glargine (Lantus (Bkc)) 60 units SC QHS [facility] Last Admin: 03/30/19 21:17 Dose: Not Given Documented by: Insulin Human Lispro (Humalog Kwikpen (Bkc)) 0 unit SC ACHS [facility]; Protocol Last Admin: 03/31/19 16:11 Dose: Not Given Documented by: Insulin Human Lispro (Humalog Kwikpen (Bkc)) 5 unit SC TIDCM [facility] Last Admin: 03/31/19 16:11 Dose: 5 u Documented by: Levofloxacin (Levaquin Tablet) 500 mg PO DAILY@0600 [facility] Last Admin: 03/31/19 05:37 Dose: 500 mg Documented by: Morphine Sulfate () 2 mg IV Q3H PRN PRN PRN Reason: Pain Score 6-10/10 Morphine Sulfate (Ms Contin) 15 mg PO TID [facility] Last Admin: 03/31/19 13:06 Dose: 15 mg Documented by: Nitroglycerin (Nitrostat) 0.4 mg SUBLINGUAL Q5M PRN PRN Reason: CARDIAC/CHEST PAIN Nutritional Formula (Lactose Free) (Glucerna Shake) 120 ml PO 4X/DAY [facility] Last Admin: 03/31/19 17:08 Dose: Not Given Documented by: Ondansetron HCl (Zofran) 4 mg IV Q8H PRN PRN PRN Reason: NAUSEA/VOMITING Oxycodone HCl (Oxyir) 5 mg PO Q4H PRN PRN PRN Reason: Pain Score 4-5/10 Pantoprazole Sodium (Protonix) 40 mg PO DAILY [facility] Last Admin: 03/31/19 07:54 Dose: 40 mg Documented by: Pravastatin Sodium (Pravachol) 20 mg PO QHS [facility] Last Admin: 03/30/19 21:16 Dose: 20 mg Documented by: Prochlorperazine Edisylate (Compazine Iv) 5 mg IV Q4H PRN PRN PRN Reason: Breakthrough Nausea/Vomiting Senna/Docusate Sodium (Senokot-S, Shaniqua-Colace) 2 tablet PO BID PRN PRN PRN Reason: Constipation Sodium Chloride () 10 - 40 ml IV UD PRN PRN Reason: SALINE FLUSH Tizanidine HCl (Zanaflex) 4 mg PO DAILY [facility] Last Admin: 03/31/19 07:55 Dose: 4 mg Documented by: Medical Necessity - Tobacco Use Smoking Status: Former smoker Assessment/Plan All Active Problems (Last Reviewed 05/16/18 @ 13:33 by Carol Kennedy) Severe sepsis (Acute) CAP (community acquired pneumonia) (Acute) Dyspnea on exertion (Acute) #1 severe sepsis secondary to community-acquired pneumonia-organism unknown, continue oral Levaquin #2 community-acquired pneumonia-organism unknown, continue present antibiotics, patient's urine antigens and respiratory panel were unremarkable, blood cultures are pending #3 hypoxia secondary to #2-this has resolved, patient is currently on room air #4 acute debility secondary to severe sepsis-continue PT and OT, patient will require temporary inpatient retirement to return home #4 type 2 diabetes #5 troponin elevation-secondary to severe sepsis #6 dehydration-continue to monitor labs #7 lethargy-etiology unclear, I have decided to adjust the patient's medications, her time-released morphine was increased to 3 times a day during her hospital stay, I have decided to decrease it to twice a day. I have also decided to stop her Zanaflex I do not think the patient presently has congestive heart failure or was admitted with congestive heart failure Code Visit Inpatient E&M: 88230 Subs Hosp L2
[2019-03-31] MEDS: Pravastatin 20 MG Tablet PO (21:12)
[2019-04-01 01:16] LABS: Bedside Glucose 103 mg/dL (70-110)
[2019-04-01 02:58] VITALS: BP 153/55; PULSE 71; RESP 14; TEMP 37.2; O2SAT 92
[2019-04-01 03:01] VITALS: PULSE 68
[2019-04-01] MEDS: levoFLOXacin 500 MG Tablet PO (05:06)
[2019-04-01 07:00] VITALS: PULSE 66
[2019-04-01 07:31] VITALS: PULSE 68; RESP 16; O2SAT 91
[2019-04-01] MEDS: Ipratropium/Albuterol Sulfate 3 ML AMPUL.NEB INHALATION ×2 (07:31→11:25)
[2019-04-01] MEDS: Insulin Lispro 100 UNIT/ML INSULN.PEN SC ×2 (07:56→12:04)
[2019-04-01] MEDS: Gabapentin 300 MG Capsule PO ×2 (07:56→12:04)
[2019-04-01] MEDS: Hydroxychloroquine 200 MG Tablet PO (07:56)
[2019-04-01 08:05] LABS: Bedside Glucose 125 mg/dL (70-110)
[2019-04-01 09:28] VITALS: BP 150/60; PULSE 76; RESP 18; TEMP 37.2; O2SAT 96
--- NOTE | 2019-04-01 09:31 | RAD_ITS ---
STUDY: X-RAY CHEST REASON FOR EXAM: Female, 64 years old. follow up pneumonia TECHNIQUE: Single AP portable view of the chest. COMPARISON: 30 March 2019 FINDINGS: There is continued patchy airspace disease within the right lung and mildly redistributed toward the upper lobes. There is no demonstrated pleural abnormality. Normal size heart. Normal mediastinum and robert. Normal visualized pulmonary arteries. Normal visualized aortic arch and descending thoracic aorta. Normal visualized thoracic spine. Normal visualized ribs, clavicles, and shoulders. There is no demonstrated abnormality of the visualized soft tissue structures of the upper abdomen. RAD/Chest 1 View IMPRESSION: Patchy airspace disease within the right lung concerning for continued infiltrate in the appropriate clinical setting. Electronically Signed: Rom Collado DO at 10:54 EST , Service support ,
[2019-04-01] MEDS: buPROPion (XL) 150 MG TABLET.XL PO (09:32)
[2019-04-01] MEDS: Enoxaparin 40 MG/0.4 ML Syringe SC (09:32)
[2019-04-01] MEDS: FLUoxetine 20 MG Capsule 60 MG PO (09:32)
[2019-04-01] MEDS: Furosemide 20 MG Tablet PO (09:32)
[2019-04-01] MEDS: Pantoprazole Sodium 40 MG Tablet PO (09:32)
[2019-04-01] MEDS: guaiFENesin 1,200 MG Tablet 1200 MG PO (09:32)
[2019-04-01] MEDS: morphine SR 15 MG Tablet PO (09:35)
--- NOTE | 2019-04-01 11:20 | PCM.TXEXTCAR ---
- Diet 03/29/19 15:09 Diet: Cardiac: Calorie-Controlled Food consistency:: Regular Liquid Consistency:: Regular/Thin How many daily calories?: 1800 calorie - Routine Orders/Code Status Routine Lab Work: - - FINGERSTICK BLOOD SUGARS ACQHS-COVER WITH SLIDING SCALE NOVOLOG R PER PROTOCOL: 200-250: 5 UNITS SQ, 251-300: 10 UNITS SQ, 301-350: 12 UNITS SQ, 351-400: 15 UNITS SQ - Wound(s) Right Knee Wound Type: Abrasion Right Second/Third Toes Wound Type: Abrasion - Therapies Weight Bearing: Full weight bearing Physical Therapy: Eval and Treat Occupational Therapy: Eval and Treat - Problem/Diagnosis (1) Chronic pain Status: Chronic Current Visit: Yes (2) Rheumatoid aortitis Status: Chronic Current Visit: Yes (3) Severe sepsis Status: Acute Current Visit: No (4) CAP (community acquired pneumonia) Status: Acute Comment: OEGANISM UNKNOWN Current Visit: No (5) Obesity, morbid, BMI 40.0-49.9 Status: Chronic Current Visit: No (6) Hyperlipidemia Status: Chronic Current Visit: No (7) Diabetes mellitus, type II Status: Chronic Current Visit: No - Allergies/Procedures Done in Hospital Allergies/Adverse Reactions: Allergies No Known Allergies Allergy (Verified 03/29/19 12:26) Procedures: None - Type of Care/Length of Stay Estimated LOS: Convalescent Care Less Than 30 days Type of Care Needed: Skilled Rehab Potential: Good Prognosis: Good - Additional Orders/Day of Discharge Additional Orders: CHEST X-RAY IN ONE WEEK H&P will serve as current which was dated: 03/29/19 Day of Discharge: 04/01/19 - Follow Up Care Primary Care Physician: Steve Turcios MD [Primary Care Provider] -
[2019-04-01 11:25] VITALS: PULSE 68; RESP 16
[2019-04-01 12:10] LABS: Bedside Glucose 135 mg/dL (70-110)
--- NOTE | 2019-04-02 17:57 | PCM.DC.SUM ---
Discharge Date and Diagnosis Date of Admission: 03/29/19 Date of Discharge: 04/01/19 - Primary Discharge Diagnosis #1 severe sepsis secondary to community-acquired pneumonia-organism unknown #2 community-acquired pneumonia-organism unknown #3 hypoxia secondary to #2 #4 acute debility secondary to severe sepsis #5 type 2 diabetes #6 troponin elevation-secondary to severe sepsis #7 dehydration No evidence for congestive heart failure - Secondary Discharge Diagnosis Chronic Problems (Last Reviewed 05/16/18 @ 13:33 by Carol Kennedy) Chronic pain (Chronic) Rheumatoid aortitis (Chronic) Diastolic dysfunction (Chronic) Right bundle branch block (Chronic) Obesity, morbid, BMI 40.0-49.9 (Chronic) Lupus (Chronic) Hyperlipidemia (Chronic) Diabetes mellitus, type II (Chronic) Hospital Course and Treatment Operations: None Procedures: None Summary of Care Provided: The patient is a 64 year old F who was seen in the emergency room at [facility] with a chief complaint of generalized weakness along with a cough. 2 days prior she had been seen in the emergency room and had a chest x-ray was diagnosed with a viral infection. Work-up in the emergency room included a CBC which showed a white blood cell count of 17.6, chemistries were unremarkable, BUN was 37, creatinine was 1.57, chest x-ray obtained showed a right upper lobe and right perihilar infiltrate. Patient's blood pressure was low and she was given IV fluids. Patient was admitted for severe sepsis secondary to community-acquired pneumonia, she received IV fluids and IV antibiotics. Due to generalized debility, it was felt that the patient would benefit from short-term placement in a group home facility for rehab services and the patient agreed. On 04/01/2019, patient was seen and examined: On examination she appeared in good health and spirits. Vital signs as documented. Skin warm and dry and without overt rashes. Neck without JVD. Lungs clear. Heart exam notable for regular rhythm, normal sounds and absence of murmurs, rubs or gallops. Abdomen unremarkable and without evidence of organomegaly, masses, or abdominal aortic enlargement. Extremities nonedematous. Neuro: Cranial nerves II through XII are grossly intact, no focal motor deficits were noted, sensation to light touch and pinprick is intact. Psych: Patient is alert and oriented x3, she does not appear anxious or depressed On 04/01/2019, patient was seen and examined felt to be in stable condition for transfer to an extended care facility for short-term rehab - Physical Exam Vitals/I&O's: Vital Signs Temp Pulse Resp BP Pulse Ox 99.0 F 68 16 150/60 H 96 04/01/19 09:28 04/01/19 11:25 04/01/19 11:25 04/01/19 09:28 04/01/19 09:28 Oxygen Flow Rate (L/min) 2 Oxygen Delivery Method Room Air Weight: 102.3 kg Body Mass Index (BMI) 37.8 Finger Stick Blood Glucose 216 Intake and Output for Last 24 Hours 03/31/19 04/01/19 04/02/19 23:59 23:59 23:59 Intake Total 1245 / 1245 0 / 0 Balance 1245 / 1245 0 / 0 Microbiology Past 72 Hours 03/29/19 12:55 Urine, Clean Catch Urine Culture - Final Culture exhibits no growth. 03/29/19 13:10 Blood Culture (Wb) - Left Forearm Blood Culture - Preliminary No growth in 48 hours. 03/29/19 13:40 Blood Culture (Wb) - Venous Blood Culture - Preliminary No growth in 48 hours. 03/29/19 12:57 Mucosa - Nasopharyngeal Respiratory Panel (PCR) - Final Home Medications: Medications to take at Discharge Fluoxetine [Prozac] 60 mg PO DAILY 09/29/16 Furosemide [Lasix] 20 mg PO DAILY 09/29/16 Gabapentin [Neurontin] 300 mg PO TID 09/29/16 Hydroxychloroquine [Plaquenil] 200 mg PO DAILYCM 09/29/16 Insulin Glargine [Lantus SoloStar Pen] 60 units SC QHS 09/29/16 Insulin Lispro [Humalog KwikPen] 5 unit SQ TIDCM 09/29/16 Metformin HCl [Metformin HCl ER] 500 mg PO BID 09/29/16 Omeprazole [Prilosec] 40 mg PO DAILY 09/29/16 Pravastatin [Pravachol] 20 mg PO QHS 09/29/16 buPROPion XL [Wellbutrin Xl] 150 mg PO DAILY 09/29/16 Meloxicam 7.5 mg PO DAILY 03/26/17 cholecalciferol (vitamin D3) 50,000 unit capsule 50,000 unit PO QWEEK 10/07/17 Acetaminophen [Tylenol Tablet] 650 mg PO Q6H PRN PRN tab 04/01/19 Gabapentin [Neurontin] 300 mg PO TIDCM 10 Days #30 cap 04/01/19 Hydroxychloroquine [Plaquenil] 200 mg PO DAILYCM tab 04/01/19 levoFLOXacin tablet [Levaquin tablet] 500 mg PO DAILY@0600 #3 tab 04/01/19 morphine SR tablet [Ms Contin] 15 mg PO BID 5 Days #10 tab 04/01/19 Following Prescrptions Were Given to Patient: levoFLOXacin tablet [Levaquin tablet] 500 mg PO DAILY@0600 #3 tab morphine SR tablet [Ms Contin] 15 mg PO BID 5 Days #10 tab Prescription Printed Gabapentin [Neurontin] 300 mg PO TIDCM 10 Days #30 cap Prescription Printed Primary Care Physician: Steve Turcios MD [Primary Care Provider] - [facility]position[facility] facility Minutes spent on discharge:: 32 Patient Condition:: Stable Medical Necessity - Tobacco Use Smoking Status: Former smoker Meaningful Use Info Meaningful Use Diagnoses (Choose all that apply): None applicable Code Visit Inpatient E&M: 77422 Disch Hosp
== END 2019-04-01 13:20 | disposition skilled nursing facility (03) | DRG 871 ==
LOC: ED 13:22 → PCU 14:46
PROVIDERS: Admitting Provider Internal Medicine; Emergency Provider Emergency Medicine; Family Provider Family Medicine; PCP Family Medicine; Referring Provider Internal Medicine; Visit Provider Internal Medicine
DX: A41.9 Sepsis, unspecified organism (principal); J18.9 Pneumonia, unspecified organism; R65.20 Severe sepsis without septic shock; E11.9 Type 2 diabetes mellitus without complications; E66.01 Morbid (severe) obesity due to excess calories; E86.0 Dehydration; R09.02 Hypoxemia; J20.9 Acute bronchitis, unspecified; I45.10 Unspecified right bundle-branch block; E78.5 Hyperlipidemia, unspecified; M32.9 Systemic lupus erythematosus, unspecified; G89.29 Other chronic pain; Z87.891 Personal history of nicotine dependence; Z68.37 Body mass index [BMI] 37.0-37.9, adult; I77.6 Arteritis, unspecified; Z23 Encounter for immunization; Z79.4 Long term (current) use of insulin
CPT/HCPCS: 36415; 71045; 71046; 80048; 80076; 81001; 82962; 83605; 83735; 84443; 84484; 85025; 85610; 85730; 87040; 87086; 87449; 87633; 87641; 93005; 94640; 94762; 97110; 97116; 97162; 97166; 97530; 97535; 97802; 99282; 99285; G0008; J7030; J7040; J7050; J7120; 90686; A4216

== ENCOUNTER 2019-04-17 12:39 | Inpatient (IN) | payer MEDICARE, MEDICAID, SELFPAY ==
[2019-03-29 15:23] VITALS: BMI 37.8
[2019-04-17] VITALS (7 sets, daily range): BP systolic 99–127; BP diastolic 45–105; PULSE 79–83; RESP 13–18; TEMP 36.6–37.1; O2SAT 88–99; BMI 36.7; BMI 36.8; BMI 36.4
--- NOTE | 2019-04-17 13:09 | EKG12_ITS ---
Test Reason : SOB Blood Pressure : / mmHG Vent. Rate : 080 BPM Atrial Rate : 076 BPM P-R Int : 000 ms QRS Dur : 098 ms QT Int : 452 ms P-R-T Axes : 000 009 041 degrees QTc Int : 521 ms Accelerated Junctional rhythm with occasional Premature ventricular complexes Incomplete right bundle branch block ST & T wave abnormality, consider anterior ischemia Prolonged QT Abnormal ECG Confirmed by JEISON YIN, NIKKI ([id number]), legal editor MINDI ADAME ([id number]) on 04/21/2019 10:01:36 AM Referred By: Darion Walsh Confirmed By:NIKKI MCHUGH MD
--- NOTE | 2019-04-17 13:10 | RAD_ITS ---
STUDY: X-RAY CHEST REASON FOR EXAM: Female, 64 years old. PRODUCTIVE COUGH, RECENTLY ADMITTED TO FOR PNEUMONIA TECHNIQUE: Single AP portable view of the chest. COMPARISON: Comparison is made with prior study dated April 01, 2019. FINDINGS: EKG electrodes are seen. Mild residual patchy infiltrates in the left upper lobe as well as in the right midlung and left lower lobes. There has been improvement as compared to prior study. There is no demonstrated pleural abnormality. There is borderline cardiomegaly. Normal mediastinum and robert. Normal visualized pulmonary arteries. Normal visualized aortic arch and descending thoracic aorta. Normal visualized thoracic spine. Normal visualized ribs, clavicles, and shoulders. Electrodes from a pain stimulator device are seen. The tip is at the T6-T7 level. There is no demonstrated abnormality of the visualized soft tissue structures of the upper abdomen. RAD/Chest 1 View (Portable) IMPRESSION: Mild residual bilateral infiltrates as described. Electronically Signed: Cristhian Arreaga, at 13:33 EST , Service support ,
--- NOTE | 2019-04-17 13:14 | ED.DCSUM_ITS ---
- ER Visit Summary Date of Service: 04/17/19 Chief Complaint: Weakness and cough History of Present Illness: The patient is a 64 F diabetes, anemia, chronic back pain and is under pain management on morphine. Reportedly was admitted to the [facility] recently for pneumonia was discharged to a halfway and is recently been home in the last week. She lives with her mother. Mother states that she is just been very weak at home and coughing again. They deny any nausea, vomiting, diarrhea or melena. No fever. Physical Examination: Older female no acute distress her pulse ox is only 89% on room air consistent with hypoxia. Blood pressure 126/65 and afebrile. H EENT exam dry mucous membranes. Appears clinically dehydrated. Head and face atraumatic. Neck nontender no lymphadenopathy. Lungs clear to auscultation bilaterally. But diminished in both bases. No rales or rhonchi. Heart regular rhythm rate about 80 no murmur. Abdomen soft nontender normal bowel sounds no peritoneal signs. Moving all 4 extremities. No edema. Nontender. Back nontender. Neurologically she is awake and alert. She seems like she is overutilizing her pain meds. But she does answer questions and follow commands. Test Results: White count elevated at 19,700. Hemoglobin 10 which is her baseline. Negative bands. Electrolytes CO2 18. BUN and creatinine 56 and 3.27. Which is significantly worse than previously were normal on her last admission and discharge. Gap 11. UA negative. Chest x-ray resolving infiltrates from her prior pneumonia. EKG has a lot of artifact from her myoclonic jerking. It appears to be an accelerated junctional rhythm. Very difficult to interpret due to the artifact. No signs of acute SC. Emergency Department Course and Treatment: Patient presents with generalized w eakness and hypoxia. With a recent pneumonia and recently placed in halfway after short hospitalization. Treatment Plan: Repeat exam she is doing well she had a liter of fluid and I ordered a second liter. I explained to her and her mother about all of her test results. I spoke to the hospitalist about admission. Disposition: Admission Impression: Acute generalized weakness Acute dehydration with acute kidney injury Leukocytosis Acute hypoxia Chronic pain management on home pain meds Status post recent pneumonia and hospitalization. This note was generated with [employer] dictation software. It may contain incorrect words, spelling, and punctuation that were not noted in review of the chart prior to signing ED Disposition - Plan for ED Patient: Referrals: Steve Turcios MD [Primary Care Provider] -
[2019-04-17] MEDS: 0.9% Normal Saline 1,000 ML 1000 ML IV (13:15)
[2019-04-17 13:44] LABS: Color, Urine Yellow (Yellow); Glucose, Dipstick Normal (Normal); Ketone-Dipstick Negative (Negative); Leukocyte Esterase-Dipstick Negative /ul (Negative); Nitrite-Dipstick Negative (Negative); Occult Blood-Urine Negative /ul (Negative); Protein-Dipstick Negative (Negative); Urine Bilirubin Dipstick Negative (Negative); Urine Clarity Clear (Clear); Urine Urobilinogen Normal (Normal)
[2019-04-17 13:59] LABS: Red Blood Cells-Urine 0-5 SEEN /hpf (0-5); Squamous Epithelial Cells - UA 0-5 SEEN /hpf (5-10); White Blood Cells 0-5 SEEN /hpf (0-5)
[2019-04-17 14:00] LABS: Bacteria RARE /hpf (None Seen); Hyaline Cast 0-5 SEEN /lpf (0-5); Mucous, Urine RARE /hpf (<or=2+)
[2019-04-17 14:16] LABS: Absolute Lymphocyte Count 0.71 X10^3/uL (0.83-4.51); Absolute Neutrophil Count 17.7 X10^3/uL (2.0-7.7); Basophil# 0.04 X10^3/uL; Basophil% 0.2 % (0-1); Eosinophil# 0.05 X10^3/uL; Eosinophils% 0.3 % (0-5); Hematocrit 36.1 % (37-47); Hemoglobin 10.7 g/dL (12.0-15.0); Lymphocyte # 0.71 X10^3/ul (4.0); Lymphocyte % 3.6 % (19-41); Mean Corp Hgb Conc 29.6 g/dL (32-36); Mean Corpuscular Hgb 28.5 pg (27.0-32.0); Mean Corpuscular Volume 96.3 fL (81-99); Mean Platelet Vol. 10.7 fl (6.2-12.0); Monocyte# 1.03 X10^3/uL; Monocyte% 5.2 % (0-10); NRBC Flagged by Analyzer 0.1 % (0-5); Neutrophil # 17.69 X10^3/uL (2.7-7.7); Platelet Count 325 K/mm3 (150-450); RBC Distribution Width CV 14.2 % (11.6-14.6); RBC Distribution Width SD 50.4 fl (35.1-43.9); Red Blood Count 3.75 M/mm3 (4.2-5.4); White Blood Count 19.7 K/mm3 (4.4-11.0)
[2019-04-17 14:27] LABS: Anion Gap 11 (5-15); BUN 56 mg/dL (7-18); BUN/Creat Ratio 17.1 RATIO (10-20); Calcium,Total 8.5 mg/dL (8.5-10.1); Chloride 105 mmol/L (98-107); Creatinine, Serum 3.27 mg/dL (0.55-1.02); EST Glomerular Filtration Rate 15 mL/min (>60); Est Glom Filt Rate - Afr Amer 18 mL/min (>60); Estimated Creatinine Clearance 15.85 ml/min; Glucose 115 mg/dL (74-106); Potassium 4.8 mmol/L (3.5-5.1); Sodium Level 134 mmol/L (136-145)
--- NOTE | 2019-04-17 15:52 | NURSING ---
MED SURG SUKUMAR DEHYDRATION, KIDNEY INJURY, SP PNEUMONIA
--- NOTE | 2019-04-17 15:58 | PCM.HP.STD ---
<Miguelito Crisostomo - Last Filed: 04/17/19 15:58> Problem List (1) FRANSISCA (acute kidney injury) Status: Acute (2) Acute metabolic encephalopathy Status: Acute (3) Chronic back pain Status: Chronic (4) Lupus Status: Chronic (5) Hyperlipidemia Status: Chronic (6) Diabetes mellitus, type II Status: Chronic History of Present Illness Date of Admission: 04/17/19 Chief Complaint: weakness The patient is a 64 year old F with pmhx of lupus, chronic back pain 2/2 DDD, presence of spinal stimulator, DMt2, depresson, HLD who presents to the ER with c/o weakness. She is also very confused and cannot currently answer any questions appropriately. Her mother is providing most of the history. The patient was admitted to the hospital with pneumonia in march. She was discharged to a group home for several weeks for rehab. She left the group home and was doing well at home. She normally takes care of herself, performs her own ADLs, can walk, and has no confusion. Starting yesterday, she was very week, unable to get out of bed, not eating or drinking, and having muscle spasms throughout her body. Today she was worse, and falling out of bed, although her mother caught her and prevented her from hitting the floor. In the ER she is A/Ox0. She has diffuse muscle spasms. She can make eye contact but not follow commands. Labs are c/w FRANSISCA. Her mother does not report any recent changes in medications, no other acute illness this week. [] Past Medical History Past Medical History (Chronic Problems): Chronic Problems (Last Reviewed 04/17/19 @ 16:18 by Darion Walsh DO) Chronic pain (Chronic) Rheumatoid aortitis (Chronic) Chronic back pain (Chronic) Diastolic dysfunction (Chronic) Right bundle branch block (Chronic) Obesity, morbid, BMI 40.0-49.9 (Chronic) Lupus (Chronic) Hyperlipidemia (Chronic) Diabetes mellitus, type II (Chronic) Medical History: Medical History (Last Reviewed 05/16/18 @ 13:33 by Carol Kennedy) Diastolic dysfunction (Chronic) I51.9 Right bundle branch block (Chronic) I45.10 Obesity, morbid, BMI 40.0-49.9 (Chronic) E66.01 Lupus (Chronic) M32.9 Hyperlipidemia (Chronic) E78.5 Diabetes mellitus, type II (Chronic) E11.9 Anemia D64.9 Anxiety F41.9 Chronic pain G89.29 DDD (degenerative disc disease) Depression F32.9 Esophagitis K20.9 Fibromyalgia M79.7 GI bleed K92.2 Osteoarthritis M19.90 Peripheral neuropathy G62.9 Rheumatoid arteritis I00 Rheumatoid arthritis M06.9 Allergies No Known Allergies Allergy (Verified 04/17/19 12:39) Home Medications: Ambulatory Orders Medication Instructions Recorded Bupropion HCl [Bupropion Xl] 150 mg PO DAILY 04/17/19 Cholecalciferol (Vitamin D3) 50,000 unit PO SA 04/17/19 [Vitamin D3] Fluoxetine [Prozac] 60 mg PO DAILY 04/17/19 Furosemide [Lasix] 20 mg PO DAILY 04/17/19 Gabapentin [Neurontin] 300 mg PO TID 04/17/19 Hydroxychloroquine [Plaquenil] 200 mg PO DAILYCM 04/17/19 Insulin Glargine,Hum.rec.anlog 60 unit SQ QHS 04/17/19 [Lantus Solostar] Insulin Lispro [Humalog KwikPen] 5 unit SQ TIDCM 04/17/19 Meloxicam [Mobic] 7.5 mg PO DAILY 04/17/19 Metformin HCl [Metformin HCl ER] 500 mg PO BIDCM 04/17/19 Morphine Sulfate 15 mg PO TID 04/17/19 Morphine Sulfate [Morphabond ER] 15 mg PO QHS 04/17/19 Morphine Sulfate [Morphabond ER] 30 mg PO DAILY 04/17/19 Omeprazole 40 mg PO DAILY 04/17/19 Pravastatin [Pravachol] 20 mg PO QHS 04/17/19 Tizanidine HCl [Zanaflex] 4 mg PO BID 04/17/19 Surgical History: Surgical History (Last Reviewed 05/16/18 @ 13:33 by Carol Kennedy) H/O repair of right rotator cuff Z98.890 History of carpal tunnel surgery Z98.890 History of left heart catheterization Onset Date: 08/01/07 Z98.890 History of lumbar fusion Z98.1 History of open reduction and internal fixation (ORIF) procedure Z98.890 right ankle History of total knee replacement Z96.659 History of tubal ligation Z98.51 Hx of cholecystectomy Z90.49 S/P insertion of spinal cord stimulator Z98.890 Surgical History: cholecystectomy, - - Back surgery (fusion, rods) x 2, R ankle surgery, R shoulder surgery, BL wrist CT release. Psychiatric History: Anxiety COASTAL TUG MATE History: No pertinent COASTAL TUG MATE history Lives: With Family Smoking Status: Former smoker Tobacco Use: Non-smoker Alcohol: None Drugs: None - *Family History Maternal Family History: Family History (Last Reviewed 04/17/19 @ 16:05 by ANAY Slaughter) Father Cancer Mother Hypertension History Items: No pertinent history Review of Systems Constitutional: Reports: Weakness Unable to obtain accurate/complete ROS d/t: pt A/Ox0 VTE Information - Inpt Only VTE Present on Admission: No VTE Mechan Device Prophylaxis: None VTE Pharm Prophylaxis ordered?: Yes Patient Problems: Active and Suspected Problems (Last Reviewed 04/17/19 @ 16:18 by Darion Walsh DO) Acute metabolic encephalopathy (Acute) FRANSISCA (acute kidney injury) (Acute) - Physical Exam Vitals/I&O's: Vital Signs Temp Pulse Resp BP Pulse Ox 98.4 F 80 14 125/85 H 98 04/17/19 15:22 04/17/19 15:22 04/17/19 15:22 04/17/19 15:22 04/17/19 15:22 Oxygen Flow Rate (L/min) 2 Oxygen Delivery Method Nasal Cannula Weight: 220 lb 14.451 oz Body Mass Index (BMI) 36.7 Finger Stick Blood Glucose 216 Intake and Output for Last 24 Hours 04/15/19 04/16/19 04/17/19 23:59 23:59 23:59 Intake Total 1000 / 1000 Balance 1000 / 1000 General: Alert, Confused, Disoriented, - - Oriented x0 HEENT: Atraumatic, PERRLA, EOMI, Normocephalic, - - erythematous cheeks Neck: Supple, No JVD, Negative Carotid Bruits Lungs: Clear to auscultation, Normal air movement Cardiovascular: Regular rate, No murmurs Abdomen: Bowel Sounds Present, Soft, Non Tender, Obese Extremities: No edema, Capillary Refill Less than 3 Seconds Skin: No rashes, No breakdown Musculoskeletal: No Tenderness to Palpation of Joints or Extremities Neurological: Cranial nerves II-XII grossly intact Laboratory Results 04/17/19 13:35: Urine Color Yellow, Urine Clarity Clear, Urine pH 5.0, Ur Specific [place] 1.020, Urine Protein Negative, Urine Glucose (UA) Normal, Urine Ketones Negative, Urine Occult Blood Negative, Urine Nitrite Negative, Urine Bilirubin Negative, Urine Urobilinogen Normal, Ur Leukocyte Esterase Negative, Urine RBC 0-5 SEEN, Urine WBC 0-5 SEEN, Ur Squamous Epith Cells 0-5 SEEN, Urine Bacteria RARE, Hyaline Casts 0-5 SEEN, Urine Mucus RARE 04/17/19 14:06: WBC 19.7 H, RBC 3.75 L, Hgb 10.7 L, Hct 36.1 L, MCV 96.3, MCH 28.5, MCHC 29.6 L, RDW Std Deviation 50.4 H, RDW Coeff of Vikram 14.2, Plt Count 325, MPV 10.7, Immature Gran % (Auto) 0.700, Neut % (Auto) 90.0 H, Lymph % (Auto) 3.6 L, [place] % (Auto) 5.2, Eos % (Auto) 0.3, Baso % (Auto) 0.2, Absolute Neuts (auto) 17.7 H, Absolute Lymphs (auto) 0.71 L, Nucleated RBC % 0.1 04/17/19 14:06: Sodium 134 L, Potassium 4.8, Chloride 105, Carbon Dioxide 18.0 L, Anion Gap 11, BUN 56 H, Creatinine 3.27 H, Estim Creat Clear Calc 15.85, Est GFR (MDRD) Af Amer 18 L, Est GFR (MDRD) Non-Af 15 L, BUN/Creatinine Ratio 17.1, Glucose 115 H, Calcium 8.5 Current Medications Sodium Chloride () 1,000 mls @ 999 mls/hr IV .Q1H1M ONE Stop: 04/17/19 16:45 Assessment/Plan All Active Problems (Last Reviewed 04/17/19 @ 16:18 by Darion Walsh DO) Acute metabolic encephalopathy (Acute) FRANSISCA (acute kidney injury) (Acute) Severe sepsis (Acute) CAP (community acquired pneumonia) (Acute) Dyspnea on exertion (Acute) 1. FRANSISCA - decreased PO intake over the last two days. Last Creatinine 0.78 today 3.27. Will hydrate with IV NS. Hold Mobic, lasix, metformin. 2. Acute metabolic vs toxic encephalopathy - confusion and tremor 2/2 to either chronic pain medications or FRANSISCA. Hold sedating medications. 3. Recent admission for pna - CXR improved. No significant cough, SOB, or hypoxia. No fever. There is leukocytosis however this may be reactive to dehydration/FRANSISCA 4. DMt2 with obesity - continue lantus, hold orals, continue TID humalog, add SSI. 5. Depression - wellbutrin, prozac 6. Chronic pain syndrome 2/2 back pain 2/2 DDD - spinal stimulator in place - hold zanaflex, morphine, neurontin, mobic. Follows Pain management with Dr. Sommers. 7. HLD - statin 8. GERD - ppi 9. Lupus and fibromyalgia - on plaquenil DVT ppx: heparin DC planning: PTOT evals, may need to go back to SNF depending how well she recovers. This patient was seen by Miguelito Crisostomo PA-C under the supervision of Dr. Walsh. <Darion Walsh - Last Filed: 04/17/19 16:24> History of Present Illness The patient is a 64 year old F presents with weakness. Patient just been progressively weak over the past few days. Patient was recently long-term facility and then eventually returned home. Patient yesterday was noted to be weak not getting out of bed not eating or drinking. Was also noted to have spasms at home. Presents to the emergency room where creatinine was 3. Did receive IV fluids. Asked the mother, as patient is confused, if patient has been taking any illicit substances or taking any of her medications appropriately and she denied that. [] Past Medical History Medical History: Medical History (Last Reviewed 04/17/19 @ 16:18 by Darion Walsh DO) Diastolic dysfunction (Chronic) I51.9 Right bundle branch block (Chronic) I45.10 Obesity, morbid, BMI 40.0-49.9 (Chronic) E66.01 Lupus (Chronic) M32.9 Hyperlipidemia (Chronic) E78.5 Diabetes mellitus, type II (Chronic) E11.9 Anemia D64.9 Anxiety F41.9 Chronic pain G89.29 DDD (degenerative disc disease) Depression F32.9 Esophagitis K20.9 Fibromyalgia M79.7 GI bleed K92.2 Osteoarthritis M19.90 Peripheral neuropathy G62.9 Rheumatoid arteritis I00 Rheumatoid arthritis M06.9 Allergies No Known Allergies Allergy (Verified 04/17/19 12:39) Surgical History: Surgical History (Last Reviewed 04/17/19 @ 16:18 by Darion Walsh DO) H/O repair of right rotator cuff Z98.890 History of carpal tunnel surgery Z98.890 History of left heart catheterization Onset Date: 08/01/07 Z98.890 History of lumbar fusion Z98.1 History of open reduction and internal fixation (ORIF) procedure Z98.890 right ankle History of total knee replacement Z96.659 History of tubal ligation Z98.51 Hx of cholecystectomy Z90.49 S/P insertion of spinal cord stimulator Z98.890 - *Family History Maternal Family History: Family History (Last Reviewed 04/17/19 @ 16:18 by Darion Walsh DO) Father Cancer Mother Hypertension Review of Systems Constitutional: Reports: Weakness Comment: Unable to obtain review of systems as patient is confused. VTE Information - Inpt Only VTE Present on Admission: No VTE Mechan Device Prophylaxis: None VTE Pharm Prophylaxis ordered?: Yes - Physical Exam Vitals/I&O's: Vital Signs Temp Pulse Resp BP Pulse Ox 36.9 C 80 14 125/85 H 98 04/17/19 15:22 04/17/19 15:22 04/17/19 15:22 04/17/19 15:22 04/17/19 15:22 Oxygen Flow Rate (L/min) 2 Oxygen Delivery Method Nasal Cannula Weight: 100.2 kg Body Mass Index (BMI) 36.7 Finger Stick Blood Glucose 216 Intake and Output for Last 24 Hours 04/15/19 04/16/19 04/17/19 23:59 23:59 23:59 Intake Total 1000 / 1000 Balance 1000 / 1000 General: Confused, Disoriented, - - Oriented to self and place. HEENT: Atraumatic, PERRLA, EOMI, Normocephalic Oral: No Gingival or Mucosal Lesions/ Ulcerations, Dry Mucosa Neck: No Nodes, Trachea Midline Lungs: Clear to auscultation, Normal air movement, No rhonchi, No wheeze Cardiovascular: Regular rate, Regular Rhythm, Normal S1, Normal S2, No murmurs Abdomen: Bowel Sounds Present, Soft, Non Tender, Obese Extremities: No edema, No Calf Tenderness Skin: No rashes, No breakdown Musculoskeletal: No Tenderness to Palpation of Joints or Extremities, No Muscle Wasting Neurological: Cranial nerves II-XII grossly intact, - - Noted mild clonus in the lower extremities and upper extremities. Patient is able to follow some commands but drifts off and either asked answers a question I did not ask or asked several questions previously Laboratory Results 04/17/19 13:35: Urine Color Yellow, Urine Clarity Clear, Urine pH 5.0, Ur Specific [place] 1.020, Urine Protein Negative, Urine Glucose (UA) Normal, Urine Ketones Negative, Urine Occult Blood Negative, Urine Nitrite Negative, Urine Bilirubin Negative, Urine Urobilinogen Normal, Ur Leukocyte Esterase Negative, Urine RBC 0-5 SEEN, Urine WBC 0-5 SEEN, Ur Squamous Epith Cells 0-5 SEEN, Urine Bacteria RARE, Hyaline Casts 0-5 SEEN, Urine Mucus RARE 04/17/19 14:06: WBC 19.7 H, RBC 3.75 L, Hgb 10.7 L, Hct 36.1 L, MCV 96.3, MCH 28.5, MCHC 29.6 L, RDW Std Deviation 50.4 H, RDW Coeff of Vikram 14.2, Plt Count 325, MPV 10.7, Immature Gran % (Auto) 0.700, Neut % (Auto) 90.0 H, Lymph % (Auto) 3.6 L, [place] % (Auto) 5.2, Eos % (Auto) 0.3, Baso % (Auto) 0.2, Absolute Neuts (auto) 17.7 H, Absolute Lymphs (auto) 0.71 L, Nucleated RBC % 0.1 04/17/19 14:06: Sodium 134 L, Potassium 4.8, Chloride 105, Carbon Dioxide 18.0 L, Anion Gap 11, BUN 56 H, Creatinine 3.27 H, Estim Creat Clear Calc 15.85, Est GFR (MDRD) Af Amer 18 L, Est GFR (MDRD) Non-Af 15 L, BUN/Creatinine Ratio 17.1, Glucose 115 H, Calcium 8.5 Clinical Impression(s) from Imaging Studies Chest X-Ray 04/17/19 13:10 IMPRESSION: Mild residual bilateral infiltrates as described. Electronically Signed: Cristhian Arreaga, at 13:33 EST , Service support , Current Medications Sodium Chloride () 1,000 mls @ 999 mls/hr IV .Q1H1M ONE Stop: 04/17/19 16:45 Assessment/Plan Patient seen and examined independently. Data reviewed. I agree with the above note by the physician assistant at surgery. 1. Acute kidney injury: Suspect prerenal. Hold furosemide. IV fluids. 2. Toxic encephalopathy: Suspect related with the renal failure and an adequate excretion of metabolites from her numerous medications, including morphine, gabapentin. Will hold any potentiating medications. I did review the patient's OAR[place] and patient had received a prescription for 15 mg of morphine sulfate twice daily on 02 April. But had a prescription filled for Morphabond 50 mg 3 times daily on the seventh. Patient on her med rec looks like she was taking both. Both of those will be held. 3. Mild clonus: Suspect related with toxic metabolites from her medications not being properly excreted with her renal failure. Hold those agents and continue with IV fluids 4. Debility: PT OT evaluate and treat. May require long-term facility again. Code Visit Inpatient E&M: 84107 Init Hosp L3
[2019-04-17] MEDS: 0.9% Normal Saline 1,000 ML 999 ML IV (17:26)
[2019-04-17 17:40] LABS: Bedside Glucose 98 mg/dL (70-110)
[2019-04-17] MEDS: 0.9% Normal Saline 1,000 ML 200 ML IV ×2 (18:39→21:58)
[2019-04-17 21:46] LABS: Bedside Glucose 95 mg/dL (70-110)
[2019-04-17] MEDS: Heparin Injection (Vial) 5,000 UNIT/ML VIAL 5000 UNIT SC (21:52)
[2019-04-17] MEDS: Pravastatin 20 MG Tablet PO (21:54)
[2019-04-18] VITALS (7 sets, daily range): BP systolic 114–139; BP diastolic 40–63; PULSE 74–92; RESP 15–18; TEMP 36.3–37.4; O2SAT 92–100
[2019-04-18] MEDS: 0.9% Normal Saline 1,000 ML 200 ML IV (01:29)
[2019-04-18] MEDS: Heparin Injection (Vial) 5,000 UNIT/ML VIAL 5000 UNIT SC ×3 (05:15→21:07)
[2019-04-18 06:55] LABS: Bedside Glucose 85 mg/dL (70-110)
[2019-04-18 07:59] LABS: Absolute Lymphocyte Count 0.54 X10^3/uL (0.83-4.51); Absolute Neutrophil Count 11.9 X10^3/uL (2.0-7.7); Basophil# 0.04 X10^3/uL; Basophil% 0.3 % (0-1); Eosinophil# 0.04 X10^3/uL; Eosinophils% 0.3 % (0-5); Hematocrit 34.1 % (37-47); Lymphocyte # 0.54 X10^3/ul (4.0); Mean Corp Hgb Conc 29.3 g/dL (32-36); Mean Corpuscular Hgb 27.8 pg (27.0-32.0); Mean Corpuscular Volume 94.7 fL (81-99); Mean Platelet Vol. 10.5 fl (6.2-12.0); Monocyte% 5.2 % (0-10); NRBC Flagged by Analyzer 0.2 % (0-5); Neutrophil % 89.2 % (47-70); POSITIVE DIFFERENTIAL YES; Platelet Count 314 K/mm3 (150-450); RBC Distribution Width CV 14.6 % (11.6-14.6); RBC Distribution Width SD 51.1 fl (35.1-43.9); White Blood Count 13.4 K/mm3 (4.4-11.0)
[2019-04-18 08:00] LABS: Differential Indicated SCAN CRITERIA MET
[2019-04-18 08:14] LABS: ALB/GLOB Ratio 0.6 RATIO (0.9-2.4); AST(SGOT) 45 U/L (15-37); Alanine Aminotransfer ALT/SGPT 63 U/L (13-56); Albumin, Serum 2.4 g/dL (3.2-5.0); Alkaline Phosphatase 337 U/L (45-117); Anion Gap 11 (5-15); BUN 54 mg/dL (7-18); BUN/Creat Ratio 21.3 RATIO (10-20); Calcium,Total 7.6 mg/dL (8.5-10.1); Chloride 112 mmol/L (98-107); Creatinine, Serum 2.53 mg/dL (0.55-1.02); EST Glomerular Filtration Rate 20 mL/min (>60); Est Glom Filt Rate - Afr Amer 25 mL/min (>60); Estimated Creatinine Clearance 20.48 ml/min; Glucose 90 mg/dL (74-106); Potassium 4.1 mmol/L (3.5-5.1); Protein, Total 6.4 g/dL (6.4-8.2); Sodium Level 139 mmol/L (136-145)
[2019-04-18] MEDS: Pantoprazole Sodium 40 MG Tablet PO (08:52)
[2019-04-18] MEDS: Hydroxychloroquine 200 MG Tablet PO (08:52)
[2019-04-18] MEDS: FLUoxetine 20 MG Capsule 60 MG PO (08:57)
[2019-04-18] MEDS: buPROPion (XL) 150 MG TABLET.XL PO (08:58)
[2019-04-18] MEDS: Insulin Lispro 100 UNIT/ML INSULN.PEN SC (09:03)
[2019-04-18 09:09] LABS: Urea Nitrogen, Urine 417 mg/dL (NO RANGE EST.)
[2019-04-18 09:36] LABS: Differential Comment SCANNED
[2019-04-18] MEDS: 0.9% Normal Saline 1,000 ML 100 ML IV ×2 (10:48→21:07)
[2019-04-18 11:36] LABS: Bedside Glucose 112 mg/dL (70-110)
[2019-04-18] MEDS: Albuterol 2.5 MG/3 ML VIAL.NEB. INHALATION ×2 (11:48→19:22)
--- NOTE | 2019-04-18 12:50 | PN_ITS ---
<Miguelito Crisostomo - Last Filed: 04/18/19 12:50> Patient Problems: Active and Suspected Problems (Last Reviewed 04/17/19 @ 16:18 by Darion Walsh DO) Acute metabolic encephalopathy (Acute) FRANSISCA (acute kidney injury) (Acute) Reason for Visit: altered mental status Subjective: Pt remains confused, minimally responsive. Today she opened her eyes and was able to tell me her name. She could not tell me her date of , or answer any other questions. She makes eye contact however does not follow commands. She has occasional muscle spasms. She has mucus secretions in her mouth that required suctioning and a productive cough. Vitals/I&O's: Vital Signs Temp Pulse Resp BP Pulse Ox 99.4 F H 91 16 134/63 H 94 04/18/19 11:31 04/18/19 11:31 04/18/19 11:31 04/18/19 11:31 04/18/19 11:31 Oxygen Flow Rate (L/min) 2 Oxygen Delivery Method Nasal Cannula Weight: 219 lb Body Mass Index (BMI) 36.4 Finger Stick Blood Glucose 216 Intake and Output for Last 24 Hours 04/16/19 04/17/19 04/18/19 23:59 23:59 23:59 Intake Total 2663.33 / 2663.33 1823.33 / 1823.33 Output Total 2059 / 2059 Balance 2663.33 / 2663.33 -236.67 / -236.67 General: Alert, Confused, Disoriented, - - A/Ox1 HEENT: Atraumatic, PERRLA, EOMI, Normocephalic Neck: Supple, No JVD, Negative Carotid Bruits Lungs: Clear to auscultation, Normal air movement Cardiovascular: Regular rate, No murmurs Abdomen: Bowel Sounds Present, Soft, Non Tender Extremities: No edema, Capillary Refill Less than 3 Seconds Skin: No rashes, No breakdown Musculoskeletal: No Tenderness to Palpation of Joints or Extremities Neurological: Cranial nerves II-XII grossly intact Psych/Mental Status: Restless Laboratory Results 04/17/19 13:35: Urine Color Yellow, Urine Clarity Clear, Urine pH 5.0, Ur Specific Brogue 1.020, Urine Protein Negative, Urine Glucose (UA) Normal, Urine Ketones Negative, Urine Occult Blood Negative, Urine Nitrite Negative, Urine Bilirubin Negative, Urine Urobilinogen Normal, Ur Leukocyte Esterase Negative, Urine RBC 0-5 SEEN, Urine WBC 0-5 SEEN, Ur Squamous Epith Cells 0-5 SEEN, Urine Bacteria RARE, Hyaline Casts 0-5 SEEN, Urine Mucus RARE 04/17/19 14:06: WBC 19.7 H, RBC 3.75 L, Hgb 10.7 L, Hct 36.1 L, MCV 96.3, MCH 28.5, MCHC 29.6 L, RDW Std Deviation 50.4 H, RDW Coeff of Vikram 14.2, Plt Count 325, MPV 10.7, Immature Gran % (Auto) 0.700, Neut % (Auto) 90.0 H, Lymph % (Auto) 3.6 L, [place] % (Auto) 5.2, Eos % (Auto) 0.3, Baso % (Auto) 0.2, Absolute Neuts (auto) 17.7 H, Absolute Lymphs (auto) 0.71 L, Nucleated RBC % 0.1 04/17/19 14:06: Sodium 134 L, Potassium 4.8, Chloride 105, Carbon Dioxide 18.0 L , Anion Gap 11, BUN 56 H, Creatinine 3.27 H, Estim Creat Clear Calc 15.85, Est GFR (MDRD) Af Amer 18 L, Est GFR (MDRD) Non-Af 15 L, BUN/Creatinine Ratio 17.1, Glucose 115 H, Calcium 8.5 04/17/19 17:07: Eos Smear Total Cells Pending 04/17/19 17:36: POC Glucose 98 04/17/19 21:39: POC Glucose 95 04/18/19 06:44: POC Glucose 85 04/18/19 07:32: WBC 13.4 H, RBC 3.60 L, Hgb 10.0 L, Hct 34.1 L, MCV 94.7, MCH 27.8, MCHC 29.3 L, RDW Std Deviation 51.1 H, RDW Coeff of Vikram 14.6, Plt Count 314, MPV 10.5, Immature Gran % (Auto) 1.000 H, Neut % (Auto) 89.2 H, Lymph % (Auto) 4.0 L, [place] % (Auto) 5.2, Eos % (Auto) 0.3, Baso % (Auto) 0.3, Absolute Neuts (auto) 11.9 H, Absolute Lymphs (auto) 0.54 L, Nucleated RBC % 0.2, Differential Comment SCANNED 04/18/19 07:32: Sodium 139, Potassium 4.1, Chloride 112 H, Carbon Dioxide 16.0 L , Anion Gap 11, BUN 54 H, Creatinine 2.53 H, Estim Creat Clear Calc 20.48, Est GFR (MDRD) Af Amer 25 L, Est GFR (MDRD) Non-Af 20 L, BUN/Creatinine Ratio 21.3 H , Glucose 90, Calcium 7.6 L, Total Bilirubin 0.50, AST 45 H, ALT 63 H, Alkaline Phosphatase 337 H, Total Protein 6.4, Albumin 2.4 L, Globulin 4.0, Albumin/Globulin Ratio 0.6 L 04/18/19 08:45: Urine Creatinine 54.10 04/18/19 08:45: Urine Urea Nitrogen 417 04/18/19 11:28: POC Glucose 112 H Current Medications Acetaminophen (Tylenol) 650 mg PO Q6H PRN PRN PRN Reason: Pain Score 1-3/Temp > 100.7 F Albuterol Sulfate (Ventolin Aerosols) 2.5 mg INHALATION Q6H.RT [facility] Last Admin: 04/18/19 11:48 Dose: 2.5 mg Documented by: Benzonatate (Tessalon Perle) 100 mg PO TID PRN PRN Reason: COUGH Dextrose (D50w Syringe) 0 gm IV X1 PRN; Protocol PRN Reason: Hypoglycemia Glucagon () 1 mg IM .X1 PRN PRN Reason: Hypoglycemia Heparin Sodium (Porcine) (Heparin Na) 5,000 unit SC Q8 [facility] Last Admin: 04/18/19 05:15 Dose: 5,000 unit Documented by: Hydroxychloroquine Sulfate (Plaquenil) 200 mg PO DAILYCM [facility] Last Admin: 04/18/19 08:52 Dose: 200 mg Documented by: Sodium Chloride () 1,000 mls @ 100 mls/hr IV .Q10H [facility] Last Admin: 04/18/19 10:48 Dose: 100 mls/hr Documented by: Piperacillin Sod/Tazobactam (Sod 3.375 gm/ Sodium Chloride) 50 mls @ 12.5 mls/hr IV Q8 [facility] Insulin Glargine (Lantus (Bkc)) 60 units SC QHS [facility] Last Admin: 04/17/19 21:52 Dose: Not Given Documented by: Insulin Human Lispro (Humalog Kwikpen (Bkc)) 5 unit SC TIDCM [facility] Last Admin: 04/18/19 11:34 Dose: Not Given Documented by: Insulin Human Lispro (Humalog Kwikpen (Bkc)) 0 unit SC TIDCM [facility]; Protocol Last Admin: 04/18/19 11:34 Dose: Not Given Documented by: Ondansetron HCl (Zofran) 4 mg IV Q8H PRN PRN PRN Reason: NAUSEA/VOMITING Pantoprazole Sodium (Protonix) 40 mg PO DAILY [facility] Last Admin: 04/18/19 08:52 Dose: 40 mg Documented by: Pravastatin Sodium (Pravachol) 20 mg PO QHS [facility] Last Admin: 04/17/19 21:54 Dose: 20 mg Documented by: Sodium Chloride () 10 - 40 ml IV UD PRN PRN Reason: SALINE FLUSH STROKE Vital Signs/Narrative: Vital Signs Temp Pulse Resp BP Pulse Ox 04/18/19 11:31 99.4 F H 91 16 134/63 H 94 04/18/19 09:06 99.1 F 92 18 115/40 L 92 Medical Necessity - Tobacco Use Smoking Status: Former smoker Tobacco Use: Non-smoker Assessment/Plan All Active Problems (Last Reviewed 04/17/19 @ 16:18 by Darion Walsh DO) Acute metabolic encephalopathy (Acute) FRANSISCA (acute kidney injury) (Acute) 1. FRANSISCA - decreased PO intake over the last two days. Improving with fluids Continue NS. Hold Mobic, lasix, metformin. 2. Acute metabolic vs toxic encephalopathy - confusion and tremor 2/2 to either chronic pain medications or FRANSISCA. Hold sedating medications. 3. Suspect aspiration pna - increased mucus secretions and cough. Start zosyn. Consult Speech therpay. Xray in AM. Leukocytosis, however this is improved, afebrile. 4. DMt2 with obesity - continue lantus, hold orals, continue TID humalog, add SSI. 5. Depression - wellbutrin, prozac held 6. Chronic pain syndrome 2/2 back pain 2/2 DDD - spinal stimulator in place - hold zanaflex, morphine, neurontin, mobic. Follows Pain management with Dr. Sommers. 7. HLD - statin 8. GERD - ppi 9. Lupus and fibromyalgia - on plaquenil DVT ppx: heparin DC planning: PTOT evals, may need to go back to SNF depending how well she recovers. This patient was seen by Miguelito Crisostomo PA-C under the supervision of Dr. Walsh <JillianJustus E - Last Filed: 04/18/19 14:03> Vitals/I&O's: Vital Signs Temp Pulse Resp BP Pulse Ox 99.4 F H 91 16 134/63 H 94 04/18/19 11:31 04/18/19 11:31 04/18/19 11:31 04/18/19 11:31 04/18/19 11:31 Oxygen Flow Rate (L/min) 2 Oxygen Delivery Method Nasal Cannula Weight: 219 lb Body Mass Index (BMI) 36.4 Finger Stick Blood Glucose 216 Intake and Output for Last 24 Hours 04/16/19 04/17/19 04/18/19 23:59 23:59 23:59 Intake Total 2663.33 / 2663.33 1823.33 / 1823.33 Output Total 2059 / 2059 Balance 2663.33 / 2663.33 -236.67 / -236.67 Laboratory Results 04/17/19 13:35: Urine Color Yellow, Urine Clarity Clear, Urine pH 5.0, Ur Specific [place] 1.020, Urine Protein Negative, Urine Glucose (UA) Normal, Urine Ketones Negative, Urine Occult Blood Negative, Urine Nitrite Negative, Urine Bilirubin Negative, Urine Urobilinogen Normal, Ur Leukocyte Esterase Negative, Urine RBC 0-5 SEEN, Urine WBC 0-5 SEEN, Ur Squamous Epith Cells 0-5 SEEN, Urine Bacteria RARE, Hyaline Casts 0-5 SEEN, Urine Mucus RARE 04/17/19 14:06: WBC 19.7 H, RBC 3.75 L, Hgb 10.7 L, Hct 36.1 L, MCV 96.3, MCH 28.5, MCHC 29.6 L, RDW Std Deviation 50.4 H, RDW Coeff of Vikram 14.2, Plt Count 325, MPV 10.7, Immature Gran % (Auto) 0.700, Neut % (Auto) 90.0 H, Lymph % (Auto) 3.6 L, [place] % (Auto) 5.2, Eos % (Auto) 0.3, Baso % (Auto) 0.2, Absolute Neuts (auto) 17.7 H, Absolute Lymphs (auto) 0.71 L, Nucleated RBC % 0.1 04/17/19 14:06: Sodium 134 L, Potassium 4.8, Chloride 105, Carbon Dioxide 18.0 L , Anion Gap 11, BUN 56 H, Creatinine 3.27 H, Estim Creat Clear Calc 15.85, Est GFR (MDRD) Af Amer 18 L, Est GFR (MDRD) Non-Af 15 L, BUN/Creatinine Ratio 17.1, Glucose 115 H, Calcium 8.5 04/17/19 17:07: Eos Smear Total Cells Pending 04/17/19 17:36: POC Glucose 98 04/17/19 21:39: POC Glucose 95 04/18/19 06:44: POC Glucose 85 04/18/19 07:32: WBC 13.4 H, RBC 3.60 L, Hgb 10.0 L, Hct 34.1 L, MCV 94.7, MCH 27.8, MCHC 29.3 L, RDW Std Deviation 51.1 H, RDW Coeff of Vikram 14.6, Plt Count 314, MPV 10.5, Immature Gran % (Auto) 1.000 H, Neut % (Auto) 89.2 H, Lymph % (Auto) 4.0 L, [place] % (Auto) 5.2, Eos % (Auto) 0.3, Baso % (Auto) 0.3, Absolute Neuts (auto) 11.9 H, Absolute Lymphs (auto) 0.54 L, Nucleated RBC % 0.2, Differential Comment SCANNED 04/18/19 07:32: Sodium 139, Potassium 4.1, Chloride 112 H, Carbon Dioxide 16.0 L , Anion Gap 11, BUN 54 H, Creatinine 2.53 H, Estim Creat Clear Calc 20.48, Est GFR (MDRD) Af Amer 25 L, Est GFR (MDRD) Non-Af 20 L, BUN/Creatinine Ratio 21.3 H , Glucose 90, Calcium 7.6 L, Total Bilirubin 0.50, AST 45 H, ALT 63 H, Alkaline Phosphatase 337 H, Total Protein 6.4, Albumin 2.4 L, Globulin 4.0, Albumin/Globulin Ratio 0.6 L 04/18/19 08:45: Urine Creatinine 54.10 04/18/19 08:45: Urine Urea Nitrogen 417 04/18/19 11:28: POC Glucose 112 H Current Medications Acetaminophen (Tylenol) 650 mg PO Q6H PRN PRN PRN Reason: Pain Score 1-3/Temp > 100.7 F Albuterol Sulfate (Ventolin Aerosols) 2.5 mg INHALATION Q6H.RT [facility] Last Admin: 04/18/19 11:48 Dose: 2.5 mg Documented by: Benzonatate (Tessalon Perle) 100 mg PO TID PRN PRN Reason: COUGH Dextrose (D50w Syringe) 0 gm IV X1 PRN; Protocol PRN Reason: Hypoglycemia Glucagon () 1 mg IM .X1 PRN PRN Reason: Hypoglycemia Heparin Sodium (Porcine) (Heparin Na) 5,000 unit SC Q8 [facility] Last Admin: 04/18/19 05:15 Dose: 5,000 unit Documented by: Hydroxychloroquine Sulfate (Plaquenil) 200 mg PO DAILYCM [facility] Last Admin: 04/18/19 08:52 Dose: 200 mg Documented by: Sodium Chloride () 1,000 mls @ 100 mls/hr IV .Q10H [facility] Last Admin: 04/18/19 10:48 Dose: 100 mls/hr Documented by: Piperacillin Sod/Tazobactam (Sod 3.375 gm/ Sodium Chloride) 50 mls @ 12.5 mls/hr IV Q8 [facility] Last Admin: 04/18/19 12:56 Dose: 12.5 mls/hr Documented by: Insulin Glargine (Lantus (Bkc)) 60 units SC QHS [facility] Last Admin: 04/17/19 21:52 Dose: Not Given Documented by: Insulin Human Lispro (Humalog Kwikpen (Bkc)) 0 unit SC TIDCM [facility]; Protocol Last Admin: 04/18/19 11:34 Dose: Not Given Documented by: Ondansetron HCl (Zofran) 4 mg IV Q8H PRN PRN PRN Reason: NAUSEA/VOMITING Pantoprazole Sodium (Protonix) 40 mg PO DAILY [facility] Last Admin: 04/18/19 08:52 Dose: 40 mg Documented by: Pravastatin Sodium (Pravachol) 20 mg PO QHS [facility] Last Admin: 04/17/19 21:54 Dose: 20 mg Documented by: Sodium Chloride () 10 - 40 ml IV UD PRN PRN Reason: SALINE FLUSH STROKE Vital Signs/Narrative: Vital Signs Temp Pulse Resp BP Pulse Ox 04/18/19 11:31 99.4 F H 91 16 134/63 H 94 Assessment/Plan Hospitalist note: I am seeing this patient in conjunction with Miguelito Crisostomo. I independently seen and examined the patient. Progress note above, laboratory data and imaging studies reviewed and I concur with the above treatment plan. Patient was alert but encephalopathic, lethargic and sleepy, was not able to communicate or answer any questions. She is short of breath with jerky body movements. She was admitted recently for pneumonia. [facility]. She is afebrile, blood pressure and heart rate maintained, pulse ox is 94% on 2 L. - Physical Exam General: Alert, lethargic, confused and disoriented, body tremors. HEENT: Atraumatic, PERRLA, EOMI. Neck: Supple, No JVD, Negative Carotid Bruits, Trachea Midline, Thyroid Normal. Lungs: Diminished breath sounds bilateral, otherwise clear, No rhonchi, No wheeze, No rales. Cardiovascular: Regular rate, Regular Rhythm, Normal S1, Normal S2, PMI Normal. Abdomen: Bowel Sounds Present, Soft, Non Tender, Non-Distended, No Hepato- splenomegaly, obese. Extremities: No clubbing, No cyanosis, No edema Skin: No rashes, No breakdown Neurological: Cranial nerves intact, moving all limbs, neuro grossly intact. Assessment and plan: #1 acute kidney injury: Attributed to dehydration, prerenal. She is on IV fl uids, baseline creatinine is normal. Admission creatinine was 3.27, it came down to 2.52 today, improving. Plan to avoid nephrotoxic drugs, continue IV fluids, aspiration precautions, repeat BMP tomorrow morning. #2 acute metabolic encephalopathy: Unclear etiology, could be medication side effects in the setting of acute kidney injury. She is lethargic, sleepy. Moving all limbs. Plan: CT scan brain, check serum ammonia, aspiration precautions. #3 suspected aspiration pneumonia: Started on IV Zosyn. She does have leukocytosis which is improving. She has been afebrile. Patient had a history of recent pneumonia. Chest x-ray revealed improving lung aeration. Plan to repeat chest x-ray tomorrow, continue IV Zosyn, speech therapy. #4 other chronic medical problems: Stable, continue current medications as above. This note was generated with [employer] dictation software. It may contain incorrect words, spelling, and punctuation that were not noted in checking the note before signing. Code Visit Inpatient E&M: 50854 Subs Hosp L3
--- NOTE | 2019-04-18 14:01 | CT_ITS ---
STUDY: CT ABDOMEN AND PELVIS WITHOUT CONTRAST REASON FOR EXAM: Female, 64 years old. ABNORMAL LFTS,The patient is a 64 year old F presents with weakness. RADIATION DOSAGE (If Supplied By Facility): CTDIvol = ( 31.85 ) mGy, DLP = ( 1631.46 ) mGycm TECHNIQUE: Transaxial images were obtained from the dome of the diaphragm to the symphysis pubis without oral contrast, and without intravenous contrast. Sagittal and coronal images were reconstructed. Individualized dose optimization techniques were used for this CT. COMPARISON: CT abdomen and pelvis from 09/29/2016 FINDINGS: The visualized lung bases demonstrate patchy lower lobe opacities The visualized portions of the heart are within normal limits. Normal liver. There are surgical clips in the gallbladder fossa consistent with a prior cholecystectomy. Normal spleen. Normal pancreas. Normal bilateral adrenal glands. Normal right kidney. Normal left kidney. Normal visualized stomach. Normal small intestine. Normal colon. There is a large amount of retained stool throughout the colon. Correlate for constipation. The appendix is visualized and appears normal. Normal abdominal aorta. Normal inferior vena cava. Normal retroperitoneum. The urinary bladder is drained with a Pierce catheter. There is a small umbilical hernia containing fat. There is posterior fixation of the lower lumbar spine. There is an implanted device with tip tracking in the lower thoracic spinal canal. CT/Abdomen/Pelvis without Cont IMPRESSION: Negative unenhanced CT of the abdomen and pelvis for acute intra-abdominal abnormality. Mild patchy lower lobe lung opacities that is nonspecific and may be due to underlying atelectasis, edema or infectious process not excluded. Electronically Signed: Aroldo Garcia, at 1:18 EST Tel , Service support ,
[2019-04-18 14:41] LABS: CPK Total, Creatine Kinase 33 U/L (26-192)
[2019-04-18 16:26] LABS: Bedside Glucose 118 mg/dL (70-110)
[2019-04-18 23:11] LABS: Bedside Glucose 135 mg/dL (70-110)
[2019-04-19] VITALS (10 sets, daily range): BP systolic 138–161; BP diastolic 55–84; PULSE 68–82; RESP 14–20; TEMP 36.3–37.1; O2SAT 92–95
[2019-04-19] MEDS: Albuterol 2.5 MG/3 ML VIAL.NEB. INHALATION ×4 (00:13→19:33)
[2019-04-19] MEDS: Heparin Injection (Vial) 5,000 UNIT/ML VIAL 5000 UNIT SC ×3 (04:57→21:27)
[2019-04-19] MEDS: Nystatin Powder 15gm Bottle 1 APPLIC TOPICAL ×3 (04:57→21:27)
--- NOTE | 2019-04-19 05:17 | RAD_ITS ---
STUDY: X-RAY CHEST REASON FOR EXAM: Female, 64 years old. SOB -- COUGH TECHNIQUE: PA and lateral views of the chest. COMPARISON: 04/17/2019 FINDINGS: Stable appearance of a neurostimulator catheter over the lower thoracic spine The expanded with worsening patchy opacifications probably in both upper lobes best seen on the lateral film. Follow-up recommended to ensure resolution There is no demonstrated pleural abnormality. Normal size heart. Normal mediastinum and robert. Normal visualized pulmonary arteries. Normal visualized aortic arch and descending thoracic aorta. Normal visualized thoracic spine. Normal visualized ribs, clavicles, and shoulders. There is no demonstrated abnormality of the visualized soft tissue structures of the upper abdomen. RAD/Chest PA and Lateral IMPRESSION: Worsening airspace opacifications in both lung angel since the previous study. Follow-up recommended to ensure resolution Electronically Signed: Noé Stauffer MD at 8:22 EST , Service support ,
[2019-04-19 06:14] LABS: Absolute Lymphocyte Count 0.48 X10^3/uL (0.83-4.51); Absolute Neutrophil Count 8.9 X10^3/uL (2.0-7.7); Basophil# 0.02 X10^3/uL; Basophil% 0.2 % (0-1); Eosinophil# 0.01 X10^3/uL; Eosinophils% 0.1 % (0-5); Hematocrit 32.9 % (37-47); Lymphocyte # 0.48 X10^3/ul (4.0); Lymphocyte % 4.7 % (19-41); Mean Corp Hgb Conc 30.4 g/dL (32-36); Mean Corpuscular Hgb 28.2 pg (27.0-32.0); Mean Corpuscular Volume 92.7 fL (81-99); Mean Platelet Vol. 10.5 fl (6.2-12.0); Monocyte# 0.67 X10^3/uL; Monocyte% 6.6 % (0-10); NRBC Flagged by Analyzer 0.2 % (0-5); Neutrophil # 8.92 X10^3/uL (2.7-7.7); Neutrophil % 87.7 % (47-70); POSITIVE DIFFERENTIAL YES; Platelet Count 328 K/mm3 (150-450); RBC Distribution Width CV 14.4 % (11.6-14.6); RBC Distribution Width SD 49.1 fl (35.1-43.9); Red Blood Count 3.55 M/mm3 (4.2-5.4); White Blood Count 10.2 K/mm3 (4.4-11.0)
[2019-04-19 06:21] LABS: Differential Indicated SCAN CRITERIA MET
[2019-04-19] MEDS: 0.9% Normal Saline 1,000 ML 100 ML IV (06:23)
[2019-04-19 06:31] LABS: Bedside Glucose 182 mg/dL (70-110)
[2019-04-19 06:46] LABS: ALB/GLOB Ratio 0.5 RATIO (0.9-2.4); AST(SGOT) 45 U/L (15-37); Alanine Aminotransfer ALT/SGPT 53 U/L (13-56); Albumin, Serum 2.2 g/dL (3.2-5.0); Alkaline Phosphatase 389 U/L (45-117); Anion Gap 10 (5-15); BUN 40 mg/dL (7-18); BUN/Creat Ratio 34.8 RATIO (10-20); Calcium,Total 8.6 mg/dL (8.5-10.1); Chloride 117 mmol/L (98-107); Creatinine, Serum 1.15 mg/dL (0.55-1.02); EST Glomerular Filtration Rate 51 mL/min (>60); Est Glom Filt Rate - Afr Amer 61 mL/min (>60); Estimated Creatinine Clearance 45.06 ml/min; Globulin 4.2 g/dL (2.2-4.2); Glucose 190 mg/dL (74-106); Potassium 3.3 mmol/L (3.5-5.1); Protein, Total 6.4 g/dL (6.4-8.2); Sodium Level 145 mmol/L (136-145)
[2019-04-19 06:55] LABS: Differential Comment SCANNED
--- NOTE | 2019-04-19 11:35 | PN_ITS ---
<Miguelito Crisostomo - Last Filed: 04/19/19 11:35> Patient Problems: Active and Suspected Problems (Last Reviewed 04/17/19 @ 16:18 by Darion Walsh DO) Acute metabolic encephalopathy (Acute) FRANSISCA (acute kidney injury) (Acute) Reason for Visit: AMS Subjective: more alert and talkative. A/Ox2 (person,place). No SOB or cough today. Denies fever/chills. No nausea/vomiting/diarrhea. Pt wants to eat. Does not normally have cath- voiding trial today. Pt eager for dc. Vitals/I&O's: Vital Signs Temp Pulse Resp BP Pulse Ox 97.3 F L 76 20 H 138/64 H 93 04/19/19 07:54 04/19/19 07:54 04/19/19 09:00 04/19/19 07:54 04/19/19 07:54 Oxygen Flow Rate (L/min) 2 Oxygen Delivery Method Room Air Weight: 218 lb 14.704 oz Body Mass Index (BMI) 36.4 Finger Stick Blood Glucose 216 Intake and Output for Last 24 Hours 04/17/19 04/18/19 04/19/19 23:59 23:59 23:59 Intake Total 2663.33 / 2663.33 2836.91 / 2836.91 986.92 / 986.92 Output Total 4060 / 4060 850 / 850 Balance 2663.33 / 2663.33 -1223.09 / -1223.09 136.92 / 136.92 General: Alert, Cooperative, - - A/Ox2 HEENT: Atraumatic, PERRLA, EOMI, Normocephalic Neck: Supple, No JVD, Negative Carotid Bruits Lungs: Normal air movement, Rales - faint rales BL bases Cardiovascular: Regular rate, No murmurs Abdomen: Bowel Sounds Present, Soft, Non Tender Extremities: No edema, Capillary Refill Less than 3 Seconds Skin: No rashes, No breakdown Musculoskeletal: No Tenderness to Palpation of Joints or Extremities Neurological: Cranial nerves II-XII grossly intact Psych/Mental Status: Normal Affect, Appropriate, Alert and oriented to time, place, person, mood and affect Laboratory Results 04/18/19 11:28: POC Glucose 112 H 04/18/19 14:15: Ammonia 32.0 04/18/19 14:15: Total Creatine Kinase 33 04/18/19 16:19: POC Glucose 118 H 04/18/19 21:12: POC Glucose 135 H 04/19/19 05:49: WBC 10.2, RBC 3.55 L, Hgb 10.0 L, Hct 32.9 L, MCV 92.7, MCH 28.2, MCHC 30.4 L, RDW Std Deviation 49.1 H, RDW Coeff of Vikram 14.4, Plt Count 328, MPV 10.5, Immature Gran % (Auto) 0.700, Neut % (Auto) 87.7 H, Lymph % (Auto) 4.7 L, [place] % (Auto) 6.6, Eos % (Auto) 0.1, Baso % (Auto) 0.2, Absolute Neuts (auto) 8.9 H, Absolute Lymphs (auto) 0.48 L, Nucleated RBC % 0.2, Differential Comment SCANNED 04/19/19 05:49: Sodium 145, Potassium 3.3 L, Chloride 117 H, Carbon Dioxide 18.0 L, Anion Gap 10, BUN 40 H, Creatinine 1.15 H, Estim Creat Clear Calc 45.06, Est GFR (MDRD) Af Amer 61, Est GFR (MDRD) Non-Af 51 L, BUN/Creatinine Ratio 34.8 H, Glucose 190 H, Calcium 8.6, Total Bilirubin 0.70, AST 45 H, ALT 53, Alkaline Phosphatase 389 H, Total Protein 6.4, Albumin 2.2 L, Globulin 4.2, Albumin/Globulin Ratio 0.5 L 04/19/19 06:23: POC Glucose 182 H Current Medications Albuterol Sulfate (Ventolin Aerosols) 2.5 mg INHALATION Q6H.RT [facility] Last Admin: 04/19/19 07:46 Dose: 2.5 mg Documented by: Benzonatate (Tessalon Perle) 100 mg PO TID PRN PRN Reason: COUGH Dextrose (D50w Syringe) 0 gm IV X1 PRN; Protocol PRN Reason: Hypoglycemia Glucagon () 1 mg IM .X1 PRN PRN Reason: Hypoglycemia Heparin Sodium (Porcine) (Heparin Na) 5,000 unit SC Q8 [facility] Last Admin: 04/19/19 04:57 Dose: 5,000 unit Documented by: Hydroxychloroquine Sulfate (Plaquenil) 200 mg PO DAILYCM [facility] Last Admin: 04/18/19 08:52 Dose: 200 mg Documented by: Sodium Chloride () 1,000 mls @ 100 mls/hr IV .Q10H [facility] Last Admin: 04/19/19 06:23 Dose: 100 mls/hr Documented by: Piperacillin Sod/Tazobactam (Sod 3.375 gm/ Sodium Chloride) 50 mls @ 12.5 mls/hr IV Q8 [facility] Last Infusion: 04/19/19 05:40 Dose: 12.5 mls/hr Documented by: Sodium Chloride () 250 mls @ 15 mls/hr IV .[id number] PRN PRN Reason: Saline Flush Last Infusion: 04/19/19 04:58 Dose: 0 mls/hr Documented by: Insulin Glargine (Lantus ([facility])) 60 units SC QHS [facility] Last Admin: 04/18/19 21:21 Dose: Not Given Documented by: Insulin Human Lispro (Humalog Kwikpen ([facility])) 0 unit SC TIDCM [facility]; Protocol Last Admin: 04/19/19 06:25 Dose: Not Given Documented by: Nystatin (Mycostatin Powder) 1 applic TOPICAL TID [facility]; Protocol Last Admin: 04/19/19 04:57 Dose: 1 applicatio Documented by: Ondansetron HCl (Zofran) 4 mg IV Q8H PRN PRN PRN Reason: NAUSEA/VOMITING Pantoprazole Sodium (Protonix) 40 mg PO DAILY [facility] Last Admin: 04/18/19 08:52 Dose: 40 mg Documented by: Pravastatin Sodium (Pravachol) 20 mg PO QHS [facility] Last Admin: 04/18/19 21:08 Dose: Not Given Documented by: Sodium Chloride () 10 - 40 ml IV UD PRN PRN Reason: SALINE FLUSH STROKE Vital Signs/Narrative: Vital Signs Temp Pulse Resp BP Pulse Ox 04/19/19 09:00 20 H 04/19/19 07:54 97.3 F L 76 18 138/64 H 93 04/19/19 07:46 72 18 93 Medical Necessity - Tobacco Use Smoking Status: Former smoker Tobacco Use: Non-smoker Assessment/Plan All Active Problems (Last Reviewed 04/17/19 @ 16:18 by Darion Walsh DO) Acute metabolic encephalopathy (Acute) FRANSISCA (acute kidney injury) (Acute) 1. FRANSISCA - decreased PO intake over the last two days. Improving with fluids Continue NS. Hold Mobic, lasix, metformin. 2. Acute metabolic vs toxic encephalopathy - confusion and tremor 2/2 to either chronic pain medications or FRANSISCA. Hold sedating medications. Ammonia neg. 3. Suspect aspiration pna - WBC improved, breathing improved. No fever. Continue empiric zosyn. Continue speech therapy. CXR with worsening opacities 4. DMt2 with obesity - continue lantus, hold orals, continue TID humalog, add SSI. 5. Depression - wellbutrin, prozac 6. Chronic pain syndrome 2/2 back pain 2/2 DDD - spinal stimulator in place - hold zanaflex, morphine, neurontin, mobic. Follows Pain management with Dr. Sommers. 7. HLD - statin 8. GERD - ppi 9. Lupus and fibromyalgia - on plaquenil DVT ppx: heparin DC planning: PTOT evals, may need to go back to SNF depending how well she recovers. This patient was seen by Miguelito Crisostomo PA-C under the supervision of Dr. Walsh <Justus Walsh E - Last Filed: 04/19/19 12:02> Vitals/I&O's: Vital Signs Temp Pulse Resp BP Pulse Ox 97.3 F L 76 20 H 138/64 H 93 04/19/19 07:54 04/19/19 07:54 04/19/19 09:00 04/19/19 07:54 04/19/19 07:54 Oxygen Flow Rate (L/min) 2 Oxygen Delivery Method Room Air Weight: 218 lb 14.704 oz Body Mass Index (BMI) 36.4 Finger Stick Blood Glucose 216 Intake and Output for Last 24 Hours 04/17/19 04/18/19 04/19/19 23:59 23:59 23:59 Intake Total 2663.33 / 2663.33 2836.91 / 2836.91 986.92 / 986.92 Output Total 4060 / 4060 850 / 850 Balance 2663.33 / 2663.33 -1223.09 / -1223.09 136.92 / 136.92 Laboratory Results 04/18/19 14:15: Ammonia 32.0 04/18/19 14:15: Total Creatine Kinase 33 04/18/19 16:19: POC Glucose 118 H 04/18/19 21:12: POC Glucose 135 H 04/19/19 05:49: WBC 10.2, RBC 3.55 L, Hgb 10.0 L, Hct 32.9 L, MCV 92.7, MCH 28.2, MCHC 30.4 L, RDW Std Deviation 49.1 H, RDW Coeff of Vikram 14.4, Plt Count 328, MPV 10.5, Immature Gran % (Auto) 0.700, Neut % (Auto) 87.7 H, Lymph % (Auto) 4.7 L, [place] % (Auto) 6.6, Eos % (Auto) 0.1, Baso % (Auto) 0.2, Absolute Neuts (auto) 8.9 H, Absolute Lymphs (auto) 0.48 L, Nucleated RBC % 0.2, Differential Comment SCANNED 04/19/19 05:49: Sodium 145, Potassium 3.3 L, Chloride 117 H, Carbon Dioxide 18.0 L, Anion Gap 10, BUN 40 H, Creatinine 1.15 H, Estim Creat Clear Calc 45.06, Est GFR (MDRD) Af Amer 61, Est GFR (MDRD) Non-Af 51 L, BUN/Creatinine Ratio 34.8 H, Glucose 190 H, Calcium 8.6, Total Bilirubin 0.70, AST 45 H, ALT 53, Alkaline Phosphatase 389 H, Total Protein 6.4, Albumin 2.2 L, Globulin 4.2, Albumin/Globulin Ratio 0.5 L 04/19/19 05:49: Phosphorus Pending, Magnesium Pending 04/19/19 06:23: POC Glucose 182 H Current Medications Albuterol Sulfate (Ventolin Aerosols) 2.5 mg INHALATION Q6H.RT [facility] Last Admin: 04/19/19 07:46 Dose: 2.5 mg Documented by: Benzonatate (Tessalon Perle) 100 mg PO TID PRN PRN Reason: COUGH Bupropion HCl (Wellbutrin Xl) 150 mg PO DAILY [facility] Dextrose (D50w Syringe) 0 gm IV X1 PRN; Protocol PRN Reason: Hypoglycemia Fluoxetine HCl (Prozac) 60 mg PO DAILY [facility] Glucagon () 1 mg IM .X1 PRN PRN Reason: Hypoglycemia Heparin Sodium (Porcine) (Heparin Na) 5,000 unit SC Q8 [facility] Last Admin: 04/19/19 04:57 Dose: 5,000 unit Documented by: Hydroxychloroquine Sulfate (Plaquenil) 200 mg PO DAILYCM [facility] Last Admin: 04/18/19 08:52 Dose: 200 mg Documented by: Piperacillin Sod/Tazobactam (Sod 3.375 gm/ Sodium Chloride) 50 mls @ 12.5 mls/hr IV Q8 [facility] Last Infusion: 04/19/19 05:40 Dose: 12.5 mls/hr Documented by: Sodium Chloride () 250 mls @ 15 mls/hr IV .[id number] PRN PRN Reason: Saline Flush Last Infusion: 04/19/19 04:58 Dose: 0 mls/hr Documented by: Insulin Glargine (Lantus ([facility])) 60 units SC QHS [facility] Last Admin: 04/18/19 21:21 Dose: Not Given Documented by: Insulin Human Lispro (Humalog Kwikpen ([facility])) 0 unit SC TIDCM [facility]; Protocol Last Admin: 04/19/19 06:25 Dose: Not Given Documented by: Nystatin (Mycostatin Powder) 1 applic TOPICAL TID [facility]; Protocol Last Admin: 04/19/19 04:57 Dose: 1 applicatio Documented by: Ondansetron HCl (Zofran) 4 mg IV Q8H PRN PRN PRN Reason: NAUSEA/VOMITING Pantoprazole Sodium (Protonix) 40 mg PO DAILY [facility] Last Admin: 04/18/19 08:52 Dose: 40 mg Documented by: Potassium Chloride (K-Dur) 40 meq PO X1 ONE Stop: 04/19/19 12:01 Pravastatin Sodium (Pravachol) 20 mg PO QHS [facility] Last Admin: 04/18/19 21:08 Dose: Not Given Documented by: Sodium Chloride () 10 - 40 ml IV UD PRN PRN Reason: SALINE FLUSH STROKE Vital Signs/Narrative: Vital Signs Resp 04/19/19 09:00 20 H Assessment/Plan Hospitalist note: I am seeing this patient in conjunction with Miguelito Crisostomo. I independently seen and examined the patient. Progress note above, laboratory data and imaging studies reviewed and I concur with the above treatment plan. Today, patient is alert, oriented x2. She is sitting on the chair and she was asking to go home today. She mentioned that her breathing is okay, no cough or sputum production. Her vital signs are stable. - Physical Exam General: Alert, oriented x2, cooperative, no distress. HEENT: Atraumatic, PERRLA, EOMI. Neck: Supple, No JVD, Negative Carotid Bruits, Trachea Midline, Thyroid Normal. Lungs: Diminished breath sounds bilateral, otherwise clear, No rhonchi, No wheeze, No rales. Cardiovascular: Regular rate, Regular Rhythm, Normal S1, Normal S2, PMI Normal. Abdomen: Bowel Sounds Present, Soft, Non Tender, Non-Distended, No Hepato- splenomegaly, obese. Extremities: No clubbing, No cyanosis, No edema Skin: No rashes, No breakdown Neurological: Cranial nerves intact, moving all limbs, neuro grossly intact. Assessment and plan: #1 acute kidney injury: Attributed to dehydration, prerenal. She is on IV fluids, baseline creatinine is normal. Admission creatinine was 3.27, it came down to 1.25, almost back to normal. Plan to avoid nephrotoxic drugs, continue IV fluids, aspiration precautions. #2 acute metabolic encephalopathy: Unclear etiology, could be medication side effects in the setting of acute kidney injury. Today, she is alert and oriented x3, significantly improved. #3 suspected aspiration pneumonia: She is on IV Zosyn. She has been afebrile, leukocytosis resolved.. She has been afebrile. Patient had a history of recent pneumonia. Chest x-ray done today and revealed worsening airspace opacification on both lung angel. Plan to continue IV Zosyn, speech therapy evaluation and treatment. #4 other chronic medical problems: Stable, continue current medications as above. This note was generated with [employer] dictation software. It may contain incorrect words, spelling, and punctuation that were not noted in checking the note before signing. Code Visit Inpatient E&M: 52776 Subs Hosp L2
[2019-04-19 12:13] LABS: Magnesium 2.4 mg/dL (1.6-2.6); Phosphorus 2.4 mg/dL (2.5-4.9)
[2019-04-19] MEDS: Hydroxychloroquine 200 MG Tablet PO (12:30)
[2019-04-19] MEDS: Pantoprazole Sodium 40 MG Tablet PO (12:30)
[2019-04-19 12:31] LABS: Bedside Glucose 228 mg/dL (70-110)
[2019-04-19] MEDS: Insulin Lispro 100 UNIT/ML INSULN.PEN SC ×2 (12:39→16:30)
[2019-04-19 16:11] LABS: Bedside Glucose 151 mg/dL (70-110)
[2019-04-19] MEDS: Benzonatate 100 MG Capsule PO (21:28)
[2019-04-19] MEDS: Pravastatin 20 MG Tablet PO (21:28)
[2019-04-19 21:56] LABS: Bedside Glucose 179 mg/dL (70-110)
[2019-04-20 00:05] VITALS: PULSE 60; RESP 16
[2019-04-20] MEDS: Albuterol 2.5 MG/3 ML VIAL.NEB. INHALATION ×2 (00:05→06:56)
[2019-04-20] MEDS: Gabapentin 100 MG Capsule 200 MG PO (01:01)
[2019-04-20] MEDS: MELATONIN 3 MG TABLET PO (01:01)
[2019-04-20 01:39] VITALS: BP 150/70; PULSE 63; RESP 16; TEMP 37.1; O2SAT 96
[2019-04-20] MEDS: Heparin Injection (Vial) 5,000 UNIT/ML VIAL 5000 UNIT SC ×2 (05:38→14:12)
[2019-04-20] MEDS: Nystatin Powder 15gm Bottle 1 APPLIC TOPICAL ×2 (05:38→14:12)
[2019-04-20 06:30] LABS: Anion Gap 7 (5-15); BUN 30 mg/dL (7-18); BUN/Creat Ratio 37.9 RATIO (10-20); Calcium,Total 9.3 mg/dL (8.5-10.1); Chloride 121 mmol/L (98-107); Creatinine, Serum 0.79 mg/dL (0.55-1.02); EST Glomerular Filtration Rate 78 mL/min (>60); Est Glom Filt Rate - Afr Amer 94 mL/min (>60); Estimated Creatinine Clearance 65.59 ml/min; Glucose 173 mg/dL (74-106); Potassium 3.4 mmol/L (3.5-5.1); Sodium Level 147 mmol/L (136-145)
[2019-04-20] MEDS: Insulin Lispro 100 UNIT/ML INSULN.PEN SC ×2 (06:30→11:08)
[2019-04-20 06:35] LABS: Bedside Glucose 159 mg/dL (70-110)
[2019-04-20 06:56] VITALS: PULSE 64; RESP 18; O2SAT 99
[2019-04-20 07:55] VITALS: BP 121/59; PULSE 62; RESP 12; TEMP 37.5; O2SAT 92
[2019-04-20] MEDS: Hydroxychloroquine 200 MG Tablet PO (08:09)
--- NOTE | 2019-04-20 10:31 | CASEMGMT ---
Social Work Note ALVIN received call from pt's daughter Ludmila stating she spoke with RN yesterday and SNF was discussed. Ludmila states she prefers pt to go to SNF and prefers [facility]. Ludmila states pt lives with her 85 year old mother. SW reviewed PT/OT pt walked 25ft and PT/OT are recommending home with [facility]. SW informed Ludmila that this worker will speak with pt about discharge planning. SW updated Ludmila that if pt is more alert and orientated and able to make decisions and if pt decides to return home then pt is able to return home and this worker can't force pt to go to SNF. ALVIN informed Ludmila that this worker will keep her updated. Ludmila states understanding. ALVIN spoke with PT/OT who states they will work with pt today and make recommendations. Physician updated this worker that pt was wanting to return home and medically pt is ready for discharge. Physician updated that this worker will speak with pt regarding discharge plans. SW will meet with pt once PT/OT works with pt today. If pt needs SNF pt can still discharge today as pt has had qualifying stay under Medicare. Plan: Home vs SNF Brinda Nelson EDUCATION TRAINER, LINK TRAINER TEACHER
[2019-04-20] MEDS: Na Biphos/Potassium Phosphate PACKET 1 PACKET PO ×2 (10:56→14:12)
[2019-04-20] MEDS: Pantoprazole Sodium 40 MG Tablet PO (10:57)
[2019-04-20] MEDS: buPROPion (XL) 150 MG TABLET.XL PO (10:59)
[2019-04-20] MEDS: FLUoxetine 20 MG Capsule 60 MG PO (10:59)
--- NOTE | 2019-04-20 11:36 | CASEMGMT ---
Addendum entered by Brinda Nelson 04/20/19 13:55: ALVIN faxed completed discharge paperwork to [facility] including transfer to extended care facility, signed medication list and any scripts. Original in SNF folder and copy on pt's chart. ALVIN completed convalescent 7000 in [facility]. Original in SNF folder and copy on pt's chart. Addendum entered by Brinda Nelson 04/20/19 13:02: SW received message from Mary at [facility] stating she is able to accept pt today. Physician updated. ALVIN placed a call to pt's daughter Ludmila and updated her that pt is agreeable to [facility] and pt has been accepted to [facility] and will be discharged today. Ludmila states she gets off work at 4:30pm and will come straight to [facility] to transport pt. RN updated. ALVIN placed a call to Mary at [facility] and left her a message that pt will be discharged today and pt's daughter will be transporting pt around 4:30pm. SW to fax completed discharge paperwork once completed. 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 ALVIN met with pt and introduced self and role at [facility]. Pt is alert and orientated x3. Pt states she prefers to return home. ALVIN updated pt that pt's daughter Ludmila called in today and was requesting pt go to [facility] for rehabilitation again. ALVIN informed pt that it is her choice though as to what she feels she needs at discharge. ALVIN did update pt that physician is going to discharge pt today. Pt asked where will I go at discharge. ALVIN provided pt with list of SNF that accept pt's insurance. ALVIN updated pt that she may be close to being in her copay days at SNF but her secondary insurance (medicaid) should olive picker the copays as long as she goes to SNF that accept medicaid. Pt states understanding, states that she is agreeable to returning to [facility]. ALVIN placed a call to [facility] and spoke with Mary. Mary states pt's name sounds familiar and they should be able to accept pt back but will review referral and discuss with her team and let this worker know. ALVIN updated Mary that pt is medically cleared for discharge today. Plan: W today pending acceptance Brinda Nelson PROGRAM PROPOSALS COORDINATOR, FACTORY PROCESS WORKERS
[2019-04-20] MEDS: hydrOXYzine PAM 25 MG Capsule 50 MG PO (12:12)
--- NOTE | 2019-04-20 12:37 | TREXTCA.CO_ITS ---
- Diet 04/19/19 11:40 Diet: Cardiac/Low Cholesterol Food consistency:: Puree Liquid Consistency:: Regular/Thin Is pt able to select menu?: No Diet Comments: DIRECT 1:1 SUPERVISION; ONLY FEED WHEN ALERT - Routine Orders/Code Status Suppository Type: Dulcolax 10mg Suppository Frequency: Daily PRN O2 Frequency: PRN Routine Lab Work: CBC - 5 days, BMP - 5 days Code Status: Full Code - Wound(s) R knee Wound Type: Abrasion rt 2nd toe Wound Type: Abrasion left 3rd toe Wound Type: Abrasion - Therapies Physical Therapy: Eval and Treat Occupational Therapy: Eval and Treat - Problem/Diagnosis (1) Aspiration pneumonia Status: Acute Current Visit: Yes (2) FRANSISCA (acute kidney injury) Status: Acute Current Visit: Yes (3) Toxic encephalopathy Status: Acute Current Visit: Yes (4) Acute metabolic encephalopathy Status: Acute Current Visit: Yes (5) Chronic back pain Status: Chronic Current Visit: Yes (6) Lupus Status: Chronic Current Visit: No (7) Hyperlipidemia Status: Chronic Current Visit: No (8) Diabetes mellitus, type II Status: Chronic Current Visit: No - Allergies/Procedures Done in Hospital Allergies/Adverse Reactions: Allergies No Known Allergies Allergy (Verified 04/17/19 12:39) Procedures: None - Type of Care/Length of Stay Estimated LOS: Convalescent Care Less Than 30 days Type of Care Needed: Skilled Rehab Potential: Fair Prognosis: Fair - Additional Orders/Day of Discharge Day of Discharge: 04/20/19 - Dietary and Speech Recommendations Dietitian Recommendations/Changes: If PO becomes indicated, suggest advance diet as tolerated to 1800 calorie/cardiac; consistency/texture as per [employer] CUT[employer] OFF. If PO remains contraindicated in 24-48 hours, suggest TF support for nutrition. - Follow Up Care Primary Care Physician: Steve Turcios MD [Primary Care Provider] - Please follow up with your Primary Care Physician in: 1-2 weeks Please Follow Up With: Мария Sommers MD When: 3-5 days
--- NOTE | 2019-04-20 12:41 | DS.PCM_ITS ---
<Miguelito Crisostomo - Last Filed: 04/20/19 12:41> Discharge Date and Diagnosis - Problem List Patient Problems: Active and Suspected Problems (Last Reviewed 04/17/19 @ 16:18 by Darion Walsh DO) Aspiration pneumonia (Acute) Toxic encephalopathy (Acute) Acute metabolic encephalopathy (Acute) FRANSISCA (acute kidney injury) (Acute) Date of Admission: 04/17/19 Date of Discharge: 04/20/19 - Primary Discharge Diagnosis Active and Suspected Problems (Last Reviewed 04/17/19 @ 16:18 by Darion Walsh DO) Toxic and metabolic encephalopathy 2/2 sedating medications and FRANSISCA FRANSISCA 2/2 decreased PO intake Aspiration pna 2/2 encephalopathy Chronic back pain Lupus fibromyalgia hypokalemia, hypophosphatemia depression HLD GERD - Secondary Discharge Diagnosis Chronic Problems (Last Reviewed 04/17/19 @ 16:18 by Darion Walsh DO) Rheumatoid aortitis (Chronic) Chronic back pain (Chronic) Diastolic dysfunction (Chronic) Right bundle branch block (Chronic) Obesity, morbid, BMI 40.0-49.9 (Chronic) Lupus (Chronic) Hyperlipidemia (Chronic) Diabetes mellitus, type II (Chronic) Hospital Course and Treatment Imaging Results: RAD/Chest 1 View (Portable) IMPRESSION: Mild residual bilateral infiltrates as described. CT/Abdomen/Pelvis without Cont IMPRESSION: Negative unenhanced CT of the abdomen and pelvis for acute intra-abdominal abnormality. Mild patchy lower lobe lung opacities that is nonspecific and may be due to underlying atelectasis, edema or infectious process not excluded. Operations: None Procedures: None Summary of Care Provided: Hospital Course: The patient is a 64 year old F with pmhx notable for chronic pain 2/2 back pain, lupus, and fibromyalgia in pain management on daily morphine, zanaflex, mobic, gabapentin, who presented to the ER with change in mental status. The patient had been very lethargic at home over two days, not very rousable, not able to get out of bed, and not eating or drinking. Her mother had her brought to the ER where she was A/O x 0. She had evidence of FRANSISCA. She was felt to have both toxic and metabolic encephalopathy 2/2 the above sedating medications and FRANSISCA. She was taken off of all meds and admitted to [facility]. Her nephrotoxic agents were also held and she was given IV fluids. The following day she had overt aspiration of mucus secretions and evidence of pna on CXR with leukocytosis and fever. She was started on zosyn for aspiration pna. She became more alert the following day and passed a speech eval with little difficulty. She remained very weak and SNF was recommended. After being off of her chronic pain meds for several days she did not have evidence of withdrawal and had minimal to no back pain. Her renal function has returned to baseline. At this time she may resume gabapentin, however she should stay off of zanaflex and morphine. She should also stay off of mobic for now with her renal failure. She will need to follow up with her pain management physician within a week to discuss her pain plan. She will also need routine follow up with her PCP in 1-2 weeks. She was transitioned to oral augmentin to complete 7 days total therapy for pna. She was discharged to SNF in stable condition. This patient was seen by Miguelito Crisostomo PA-C under the supervision of Dr. Walsh [] Patient Problems: Active and Suspected Problems (Last Reviewed 04/17/19 @ 16:18 by Darion Walsh DO) Aspiration pneumonia (Acute) Toxic encephalopathy (Acute) Acute metabolic encephalopathy (Acute) FRANSISCA (acute kidney injury) (Acute) - Physical Exam Vitals/I&O's: Vital Signs Temp Pulse Resp BP Pulse Ox 99.5 F H 62 12 121/59 H 92 04/20/19 07:55 04/20/19 07:55 04/20/19 07:55 04/20/19 07:55 04/20/19 07:55 Oxygen Flow Rate (L/min) 2.5 Oxygen Delivery Method Room Air Weight: 218 lb 14.704 oz Body Mass Index (BMI) 36.4 Finger Stick Blood Glucose 216 Intake and Output for Last 24 Hours 04/18/19 04/19/19 04/20/19 23:59 23:59 23:59 Intake Total 2836.91 / 2836.91 2234.42 / 2234.42 100 / 100 Output Total 4060 / 4060 1500 / 1500 Balance -1223.09 / -1223.09 734.42 / 734.42 100 / 100 General: Alert, Oriented x3, Cooperative HEENT: Atraumatic, PERRLA, EOMI, Normocephalic Neck: Supple, No JVD, Negative Carotid Bruits Lungs: Clear to auscultation, Normal air movement Cardiovascular: Regular rate, No murmurs Abdomen: Bowel Sounds Present, Soft, Non Tender Extremities: No edema, Capillary Refill Less than 3 Seconds Skin: No rashes, No breakdown Musculoskeletal: No Tenderness to Palpation of Joints or Extremities Neurological: Cranial nerves II-XII grossly intact Psych/Mental Status: Normal Affect, Appropriate, Alert and oriented to time, place, person, mood and affect Laboratory Results 04/19/19 16:07: POC Glucose 151 H 04/19/19 21:34: POC Glucose 179 H 04/20/19 05:20: Sodium 147 H, Potassium 3.4 L, Chloride 121 H, Carbon Dioxide 19.0 L, Anion Gap 7, BUN 30 H, Creatinine 0.79, Estim Creat Clear Calc 65.59, Est GFR (MDRD) Af Amer 94, Est GFR (MDRD) Non-Af 78, BUN/Creatinine Ratio 37.9 H , Glucose 173 H, Calcium 9.3 04/20/19 06:28: POC Glucose 159 H Current Medications Albuterol Sulfate (Ventolin Aerosols) 2.5 mg INHALATION Q6H.RT [facility] Last Admin: 04/20/19 12:39 Dose: Not Given Documented by: Benzonatate (Tessalon Perle) 100 mg PO TID PRN PRN Reason: COUGH Last Admin: 04/19/19 21:28 Dose: 100 mg Documented by: Bupropion HCl (Wellbutrin Xl) 150 mg PO DAILY [facility] Last Admin: 04/20/19 10:59 Dose: 150 mg Documented by: Dextrose (D50w Syringe) 0 gm IV X1 PRN; Protocol PRN Reason: Hypoglycemia Fluoxetine HCl (Prozac) 60 mg PO DAILY [facility] Last Admin: 04/20/19 10:59 Dose: 60 mg Documented by: Glucagon () 1 mg IM .X1 PRN PRN Reason: Hypoglycemia Heparin Sodium (Porcine) (Heparin Na) 5,000 unit SC Q8 [facility] Last Admin: 04/20/19 05:38 Dose: 5,000 unit Documented by: Hydroxychloroquine Sulfate (Plaquenil) 200 mg PO DAILYCM [facility] Last Admin: 04/20/19 08:09 Dose: 200 mg Documented by: Piperacillin Sod/Tazobactam (Sod 3.375 gm/ Sodium Chloride) 50 mls @ 12.5 mls/hr IV Q8 [facility] Last Infusion: 04/20/19 09:40 Dose: Infused Documented by: Sodium Chloride () 250 mls @ 15 mls/hr IV .[id number] PRN PRN Reason: Saline Flush Last Infusion: 04/20/19 01:26 Dose: 15 mls/hr Documented by: Insulin Glargine (Lantus (Bk)) 60 units SC QHS [facility] Last Admin: 04/19/19 21:47 Dose: 60 units Documented by: Insulin Human Lispro (Humalog Kwikpen ([facility])) 0 unit SC TIDCM [facility]; Protocol Last Admin: 04/20/19 11:08 Dose: 1 units Documented by: Melatonin (Melatonin) 3 mg PO QHS PRN PRN Reason: INSOMNIA Last Admin: 04/20/19 01:01 Dose: 3 mg Documented by: Nystatin (Mycostatin Powder) 1 applic TOPICAL TID [facility]; Protocol Last Admin: 04/20/19 05:38 Dose: 1 applicatio Documented by: Ondansetron HCl (Zofran) 4 mg IV Q8H PRN PRN PRN Reason: NAUSEA/VOMITING Pantoprazole Sodium (Protonix) 40 mg PO DAILY [facility] Last Admin: 04/20/19 10:57 Dose: 40 mg Documented by: Potassium Phos/Sodium Phos (Neutra-Phos Packet) 1 packet PO TID [facility] Last Admin: 04/20/19 10:56 Dose: 1 packet Documented by: Pravastatin Sodium (Pravachol) 20 mg PO QHS [facility] Last Admin: 04/19/19 21:28 Dose: 20 mg Documented by: Sodium Chloride () 10 - 40 ml IV UD PRN PRN Reason: SALINE FLUSH Discharge Diet: Low fat/ Low Cholesterol, 2000 mg Sodium Diet Discharge Activity: Return to Normal Activity Home Medications: Medications to take at Discharge Bupropion HCl [Bupropion Xl] 150 mg PO DAILY 04/17/19 Cholecalciferol (Vitamin D3) [Vitamin D3] 50,000 unit PO SA 04/17/19 Fluoxetine [Prozac] 60 mg PO DAILY 04/17/19 Furosemide [Lasix] 20 mg PO DAILY 04/17/19 Gabapentin [Neurontin] 300 mg PO TID 04/17/19 Hydroxychloroquine [Plaquenil] 200 mg PO DAILYCM 04/17/19 Insulin Glargine,Hum.rec.anlog [Lantus Solostar] 60 unit SQ QHS 04/17/19 Insulin Lispro [Humalog KwikPen] 5 unit SQ TIDCM 04/17/19 Metformin HCl [Metformin HCl ER] 500 mg PO BIDCM 04/17/19 Omeprazole 40 mg PO DAILY 04/17/19 Pravastatin [Pravachol] 20 mg PO QHS 04/17/19 Albuterol Aerosols [Ventolin Aerosols] 2.5 mg INHALATION Q6H.RT vial.neb. 04/20/19 Amoxicillin/Potassium Clav [Augmentin 875-125 Tablet] 1 ea PO BID #9 tab 04/20/19 Benzonatate [Tessalon Perle] 100 mg PO TID PRN cap 04/20/19 Melatonin 3 mg PO QHS PRN tab 04/20/19 Nystatin Powder [Mycostatin Powder] 1 applic TOPICAL TID bottle 04/20/19 Following Prescrptions Were Given to Patient: Amoxicillin/Potassium Clav [Augmentin 875-125 Tablet] 1 ea PO BID #9 tab Primary Care Physician: Steve Turcios MD [Primary Care Provider] - Please follow up with your Primary Care Physician in: 1-2 weeks Please Follow Up With: Мария Sommers MD When: 3-5 days Disposition: [facility] facility Minutes spent on discharge:: 35 Patient Condition:: Stable Medical Necessity - Tobacco Use Smoking Status: Former smoker Tobacco Use: Non-smoker Meaningful Use Info Meaningful Use Diagnoses (Choose all that apply): None applicable <Justus Walsh E - Last Filed: 04/20/19 13:24> Discharge Date and Diagnosis - Primary Discharge Diagnosis Active and Suspected Problems (Last Reviewed 04/17/19 @ 16:18 by Darion Walsh DO) Aspiration pneumonia (Acute) Toxic encephalopathy (Acute) Acute metabolic encephalopathy (Acute) FRANSISCA (acute kidney injury) (Acute) - Secondary Discharge Diagnosis Chronic Problems (Last Reviewed 04/17/19 @ 16:18 by Darion Walsh DO) Rheumatoid aortitis (Chronic) Chronic back pain (Chronic) Diastolic dysfunction (Chronic) Right bundle branch block (Chronic) Obesity, morbid, BMI 40.0-49.9 (Chronic) Lupus (Chronic) Hyperlipidemia (Chronic) Diabetes mellitus, type II (Chronic) Hospital Course and Treatment Summary of Care Provided: Hospitalist note: Discharge summary above reviewed and I concur with the above discharge and treatment plan. Patient presented to the emergency room because of weakness and lethargy and she was found to have acute kidney injury, acute encephalopathy as well as suspected aspiration pneumonia. On admission, patient was very lethargic, not responding appropriately and was difficult to arouse. She was found to have acute kidney injury due to poor oral intake and dehydration. Admission creatinine was 3.27 which was treated with IV fluids and it came down to 0.79 upon discharge. Her kidney function returned back to normal. Patient was very lethargic on the first day of admission, not able to respond to questions appropriately and this is attributed to medication side effects including morphine, Zanaflex, Mobic and gabapentin. Also could be due to suspected aspiration pneumonia. She had a recent history of pneumonia and a chest x-ray revealed residual bilateral infiltrate. Repeat chest x-ray done and revealed worsening airspace consolidation in both lung angel. CT scan abdomen and pelvis without contrast revealed no acute intra-abdominal pathology and revealed mild patchy lower lobe lung opacities consistent with pneumonia. Patient was treated with IV Zosyn for suspected aspiration pneumonia. Second day post admission, patient became alert and oriented x3. She was answering questions appropriately. She remained afebrile for more than 48 hours and leukocytosis resolved. She was seen and evaluated by speech therapy for probable aspiration and recommended pur?ed diet with regular thin liquids under supervision. Patient was evaluated by PT OT and was appropriate for placement to snf facility. Patient discharged to snf facility in a stable medical condition, discharged on Augmentin twice daily, ptosis of her bupropion, Prozac, Neurontin and morphine as well as Zanaflex adjusted to avoid oversedation as above, recommended to follow-up with a pain management doctor in 3 to 5 days, follow-up with PCP in 1 to 2 weeks. - Physical Exam General: Alert, oriented x3, cooperative, no distress. HEENT: Atraumatic, PERRLA, EOMI. Neck: Supple, No JVD, Negative Carotid Bruits, Trachea Midline, Thyroid Normal. Lungs: Diminished breath sounds bilateral, otherwise clear, No rhonchi, No wheeze, No rales. Cardiovascular: Regular rate, Regular Rhythm, Normal S1, Normal S2, PMI Normal. Abdomen: Bowel Sounds Present, Soft, Non Tender, Non-Distended, No Hepato- splenomegaly, obese. Extremities: No clubbing, No cyanosis, No edema Skin: No rashes, No breakdown Neurological: Cranial nerves intact, moving all limbs, neuro grossly intact. This note was generated with [employer] dictation software. It may contain incorrect words, spelling, and punctuation that were not noted in checking the note before signing. - Physical Exam Vitals/I&O's: Vital Signs Temp Pulse Resp BP Pulse Ox 99.5 F H 62 12 121/59 H 92 04/20/19 07:55 04/20/19 07:55 04/20/19 07:55 04/20/19 07:55 04/20/19 07:55 Oxygen Flow Rate (L/min) 2.5 Oxygen Delivery Method Room Air Weight: 218 lb 14.704 oz Body Mass Index (BMI) 36.4 Finger Stick Blood Glucose 216 Intake and Output for Last 24 Hours 04/18/19 04/19/19 04/20/19 23:59 23:59 23:59 Intake Total 2836.91 / 2836.91 2234.42 / 2234.42 100 / 100 Output Total 4060 / 4060 1500 / 1500 Balance -1223.09 / -1223.09 734.42 / 734.42 100 / 100 Laboratory Results 04/19/19 16:07: POC Glucose 151 H 04/19/19 21:34: POC Glucose 179 H 04/20/19 05:20: Sodium 147 H, Potassium 3.4 L, Chloride 121 H, Carbon Dioxide 19.0 L, Anion Gap 7, BUN 30 H, Creatinine 0.79, Estim Creat Clear Calc 65.59, Est GFR (MDRD) Af Amer 94, Est GFR (MDRD) Non-Af 78, BUN/Creatinine Ratio 37.9 H , Glucose 173 H, Calcium 9.3 04/20/19 06:28: POC Glucose 159 H Current Medications Albuterol Sulfate (Ventolin Aerosols) 2.5 mg INHALATION Q6H.RT [facility] Last Admin: 04/20/19 12:39 Dose: Not Given Documented by: Benzonatate (Tessalon Perle) 100 mg PO TID PRN PRN Reason: COUGH Last Admin: 04/19/19 21:28 Dose: 100 mg Documented by: Bupropion HCl (Wellbutrin Xl) 150 mg PO DAILY [facility] Last Admin: 04/20/19 10:59 Dose: 150 mg Documented by: Dextrose (D50w Syringe) 0 gm IV X1 PRN; Protocol PRN Reason: Hypoglycemia Fluoxetine HCl (Prozac) 60 mg PO DAILY [facility] Last Admin: 04/20/19 10:59 Dose: 60 mg Documented by: Glucagon () 1 mg IM .X1 PRN PRN Reason: Hypoglycemia Heparin Sodium (Porcine) (Heparin Na) 5,000 unit SC Q8 [facility] Last Admin: 04/20/19 05:38 Dose: 5,000 unit Documented by: Hydroxychloroquine Sulfate (Plaquenil) 200 mg PO DAILYCM [facility] Last Admin: 04/20/19 08:09 Dose: 200 mg Documented by: Piperacillin Sod/Tazobactam (Sod 3.375 gm/ Sodium Chloride) 50 mls @ 12.5 mls/hr IV Q8 [facility] Last Admin: 04/20/19 13:15 Dose: 12.5 mls/hr Documented by: Sodium Chloride () 250 mls @ 15 mls/hr IV .[id number] PRN PRN Reason: Saline Flush Last Infusion: 04/20/19 01:26 Dose: 15 mls/hr Documented by: Insulin Glargine (Lantus (Bkc)) 60 units SC QHS [facility] Last Admin: 04/19/19 21:47 Dose: 60 units Documented by: Insulin Human Lispro (Humalog Kwikpen (Bk)) 0 unit SC TIDCM [facility]; Protocol Last Admin: 04/20/19 11:08 Dose: 1 units Documented by: Melatonin (Melatonin) 3 mg PO QHS PRN PRN Reason: INSOMNIA Last Admin: 04/20/19 01:01 Dose: 3 mg Documented by: Nystatin (Mycostatin Powder) 1 applic TOPICAL TID [facility]; Protocol Last Admin: 04/20/19 05:38 Dose: 1 applicatio Documented by: Ondansetron HCl (Zofran) 4 mg IV Q8H PRN PRN PRN Reason: NAUSEA/VOMITING Pantoprazole Sodium (Protonix) 40 mg PO DAILY [facility] Last Admin: 04/20/19 10:57 Dose: 40 mg Documented by: Potassium Phos/Sodium Phos (Neutra-Phos Packet) 1 packet PO TID [facility] Last Admin: 04/20/19 10:56 Dose: 1 packet Documented by: Pravastatin Sodium (Pravachol) 20 mg PO QHS [facility] Last Admin: 04/19/19 21:28 Dose: 20 mg Documented by: Sodium Chloride () 10 - 40 ml IV UD PRN PRN Reason: SALINE FLUSH Disposition: [facility] facility Minutes spent on discharge:: 32 Patient Condition:: Stable Meaningful Use Info Meaningful Use Diagnoses (Choose all that apply): None applicable Code Visit Inpatient E&M: 52075 Disch Hosp
[2019-04-20 14:24] VITALS: BP 132/35; PULSE 59; RESP 20; TEMP 37.4; O2SAT 97
--- NOTE | 2019-04-20 15:37 | NURSING ---
Report called to Marsha MCGREGOR at [facility].
[2019-04-20 15:54] VITALS: BP 131/52; PULSE 100; RESP 20; TEMP 36.6
--- NOTE | 2019-04-20 16:40 | CHAPLAIN ---
Type of Pastoral Visit _x__ Initial Visit ___ Follow-up Visit ___ On-call Visit ___ General Patient Visit ___ Spiritual Assessment ___ Family Conference ___ Bereavement ___ Rapid Response ___ Code Blue ___ Other (describe below) Pastoral Care Referral From _x__ Patient ___ Family ___ Nurse ___ Physician ___ Group Leader [employer] ___ Transformer Molder ___ Other (describe below) Sacrament/Intervention _x__ Active listening ___ Anointing ___ Methodist ___ Bereavement ___ Communion ___ Nicki exploration ___ ___ Life review _x__ Prayer ___ Reconciliation ___ Sacrament of Sick _x__ Supportive presence ___ Wedding ___ Other (describe below) Pastoral Comments
[2019-04-20 16:41] LABS: Bedside Glucose 127 mg/dL (70-110)
[2019-04-20] MEDS: Gabapentin 300 MG Capsule PO (17:11)
--- NOTE | 2019-04-20 17:18 | NURSING ---
Daughter was notified pt was given one dose of Neurontin, and Amy [facility] does not desire to order morphine. Pt needs to follow up with Dr. Sommers this week.
[2019-04-20 17:40] LABS: Bedside Glucose 171 mg/dL (70-110)
[2019-04-21 10:34] LABS: Eosinophil Ct. Urine No Eosinophils Seen % (.)
== END 2019-04-20 17:20 | disposition skilled nursing facility (03) | DRG 682 ==
LOC: ED 13:24 → MS3 16:15
PROVIDERS: Physician Assistant; Emergency Provider Emergency Medicine; Family Provider Family Medicine; PCP Family Medicine; Visit Provider Hospitalist
DX: N17.9 Acute kidney failure, unspecified (principal); G92 Toxic encephalopathy; J69.0 Pneumonitis due to inhalation of food and vomit; R09.02 Hypoxemia; E86.0 Dehydration; E87.6 Hypokalemia; E83.39 Other disorders of phosphorus metabolism; E11.42 Type 2 diabetes mellitus with diabetic polyneuropathy; M32.9 Systemic lupus erythematosus, unspecified; M79.7 Fibromyalgia; M06.9 Rheumatoid arthritis, unspecified; E78.5 Hyperlipidemia, unspecified; G89.4 Chronic pain syndrome; M54.9 Dorsalgia, unspecified; K21.9 Gastro-esophageal reflux disease without esophagitis; F32.9 Major depressive disorder, single episode, unspecified; F41.9 Anxiety disorder, unspecified; E66.01 Morbid (severe) obesity due to excess calories; Z68.36 Body mass index [BMI] 36.0-36.9, adult; Z79.891 Long term (current) use of opiate analgesic; Z79.4 Long term (current) use of insulin; Z79.899 Other long term (current) drug therapy; Z87.01 Personal history of pneumonia (recurrent); Z87.891 Personal history of nicotine dependence
CPT/HCPCS: 36415; 71045; 71046; 74176; 80048; 80053; 81001; 82140; 82550; 82570; 82962; 83735; 84100; 84540; 85025; 87205; 92507; 92526; 92610; 93005; 94640; 94667; 94668; 97116; 97162; 97166; 97530; 97535; 99251; 99284; J7030; J7050; P9612; A4216; G0463

== ENCOUNTER → 2019-12-02 16:58 | Outpatient (CLI) | payer MEDICARE, MEDICAID, SELFPAY ==
[2019-04-17 17:11] VITALS: BMI 36.4
[2019-12-02 17:29] LABS: Amphetamine Urine VISTA NEGATIVE (<1000 ng/mL); Barbiturate Urine VISTA NEGATIVE (< 200 ng/mL); Benzodiazepine Urine VISTA NEGATIVE (< 200 ng/mL); Cocaine Urine VISTA NEGATIVE (< 300 ng/mL); Ecstacy Urine VISTA POSITIVE (< 500 ng/mL); Methadone Urine VISTA NEGATIVE (< 300 ng/mL); PCP Urine VISTA NEGATIVE (< 25 ng/mL); THC Urine VISTA NEGATIVE (< 50 ng/mL); Vista UDS pH Range 5
== END ==
PROVIDERS: PCP Family Medicine; Referring Provider Anesthesiology Pain Medicine; Visit Provider Anesthesiology Pain Medicine
DX: F11.20 Opioid dependence, uncomplicated (principal)
CPT/HCPCS: 80307

== ENCOUNTER → 2020-05-09 | Outpatient (CLI) | payer MEDICARE, MEDICAID, SELFPAY ==
[2019-04-17 17:11] VITALS: BMI 36.4
== END | disposition home or self-care (01) ==
PROVIDERS: PCP Family Medicine; Referring Provider Podiatrist Foot & Ankle Surgery; Visit Provider Podiatrist Foot & Ankle Surgery
DX: L97.512 Non-pressure chronic ulcer of other part of right foot with fat layer exposed (principal); L97.521 Non-pressure chronic ulcer of other part of left foot limited to breakdown of skin
CPT/HCPCS: 87070; 87075; 87077; 87186; 87205

== ENCOUNTER 2020-06-01 17:53 | Inpatient (IN) | payer MEDICARE, SELFPAY ==
[2019-04-17 17:11] VITALS: BMI 36.4
[2020-06-01] VITALS (8 sets, daily range): BP systolic 130–143; BP diastolic 58–67; PULSE 66–71; RESP 17–20; TEMP 35.4–36.7; O2SAT 98–100; BMI 38.7; BMI 37.1; BMI 37.2
[2020-06-01 19:41] LABS: Absolute Lymphocyte Count 1.54 X10^3/uL (0.83-4.51); Absolute Neutrophil Count 8.9 X10^3/uL (2.0-7.7); Basophil# 0.07 X10^3/uL; Basophil% 0.6 % (0-1); Eosinophil# 0.53 X10^3/uL; Eosinophils% 4.3 % (0-5); Hematocrit 27.9 % (37-47); Lymphocyte # 1.54 X10^3/ul (4.0); Lymphocyte % 12.5 % (19-41); Mean Corp Hgb Conc 28.7 g/dL (32-36); Mean Corpuscular Hgb 24.1 pg (27.0-32.0); Mean Platelet Vol. 9.3 fl (6.2-12.0); Monocyte# 0.86 X10^3/uL; Neutrophil # 8.87 X10^3/uL (2.7-7.7); Neutrophil % 71.6 % (47-70); Platelet Count 461 K/mm3 (150-450); RBC Distribution Width CV 18.1 % (11.6-14.6); RBC Distribution Width SD 54.5 fl (35.1-43.9); Red Blood Count 3.32 M/mm3 (4.2-5.4); White Blood Count 12.4 K/mm3 (4.4-11.0)
--- NOTE | 2020-06-01 19:42 | EKG12_ITS ---
Test Reason : BLAISE Blood Pressure : / mmHG Vent. Rate : 067 BPM Atrial Rate : 067 BPM P-R Int : 214 ms QRS Dur : 152 ms QT Int : 462 ms P-R-T Axes : 058 038 015 degrees QTc Int : 488 ms Sinus rhythm with 1st degree A-V block Right bundle branch block Abnormal ECG Confirmed by RALPH YIN, CARLYLE ([id number]), features editor BRYANT FELIZ ([id number]) on 06/06/2020 9:38:53 AM Referred By: KIDNEY Confirmed By:ARY ROSAS MD
[2020-06-01 19:49] LABS: Anion Gap 8 (5-15); BUN 48 mg/dL (7-18); BUN/Creat Ratio 28.7 RATIO (10-20); Chloride 111 mmol/L (98-107); Creatinine, Serum 1.67 mg/dL (0.55-1.02); EST Glomerular Filtration Rate 33 mL/min (>60); Est Glom Filt Rate - Afr Amer 40 mL/min (>60); Estimated Creatinine Clearance 30.62 ml/min; Glucose 68 mg/dL (74-106); Potassium 3.3 mmol/L (3.5-5.1); Sodium Level 139 mmol/L (136-145)
--- NOTE | 2020-06-01 19:50 | RAD_ITS ---
STUDY: X-RAY CHEST REASON FOR EXAM: Female, 65 years old. SOB TECHNIQUE: PA and lateral views of the chest. COMPARISON: 04/19/2019 FINDINGS: Cardiac silhouette enlarged. Pulmonary vascularity increased. Aorta unremarkable. Stimulator leads are seen over the midthoracic spine. No focal airspace opacities. No pleural effusions. Upper abdomen unremarkable. Osseous structures intact. No pneumothorax. RAD/Chest 1 View (Portable) IMPRESSION: Findings consistent with CHF/mild pulmonary edema as clinically indicated. Electronically Signed: Dwain Patrick MD at 20:26 EST Tel , Service support ,
[2020-06-01 20:17] LABS: AST(SGOT) 13 U/L (15-37); Alanine Aminotransfer ALT/SGPT 19 U/L (13-56); Alkaline Phosphatase 237 U/L (45-117); Bilirubin, Direct 0.07 mg/dL (0.00-0.30); Globulin 4.4 g/dL (2.2-4.2); Protein, Total 7.4 g/dL (6.4-8.2)
[2020-06-01 20:26] LABS: BNP,B-Type NATRIURETIC PEPTIDE 108.4 pg/mL (0-100)
--- NOTE | 2020-06-01 20:39 | ED.VISSUMM ---
- ER Visit Summary Date of Service: 06/01/20 Chief Complaint: Shortness of breath History of Present Illness: The patient is a [address] Turcios. She reports that she has shortness of breath off and on for quite some time. States that it is worse with exertion or laying down. However, she denies PND orthopnea. She reports a 10 pound weight gain over the past 11 days. Patient also reports she had decreased urine output for the past few days. She denies any dysuria or frequency. No fever or chills. No chest pain or cough. Physical Examination: Vitals: Stable. Afebrile. General: Well-nourished and well-developed. Head: Normocephalic atraumatic. Neck: Supple, no lymphadenopathy. No JVD. Nontender. Cardiovascular: Regular rate and rhythm. No murmurs. Respiratory: No respiratory distress. Clear to auscultation bilaterally. No crackles. Abdominal: Soft, nontender, nondistended, normal bowel sounds. No guarding, rebound, or peritoneal signs. Back: Nontender. Extremities: Nontender, no edema. Skin: Normal color, no rash. Neurologic: Alert and oriented ?3. Cranial nerves II through XII are intact. Normal strength and sensation. Psych: Normal affect. Test Results: EKG is sinus at 67 with right bundle branch block. Is unchanged from March 2019. Troponin is negative. BNP is 108.4. LFTs show an alk phos 237 and AST of 13. Chem-7 shows potassium 3.3, chloride 111, CO2 of 20, glucose of 68, BUN of 48, creatinine 1.67. CBC shows a white count of 12.4 with an H&H of 8.0 27.9, platelets of 461, segmented neutrophils of 72, lymphocytes of 13, immature granulocytes 4%. Clinical Impression(s) from Imaging Studies Chest X-Ray 06/01/20 19:50 IMPRESSION: Findings consistent with CHF/mild pulmonary edema as clinically indicated. Electronically Signed: Dwain Patrick MD at 20:26 EST Tel , Service support , Emergency Department Course and Treatment: Patient is resting comfortably without complaint. Chart review shows that her last hemoglobin on March 19 was 9.7. She ranged between 9.1 and 12 in 2019. Patient did have a type and screen sent. Patient denies any known blood loss. No nosebleeds or trauma. She reports she has had problems with this in the past and has had colonoscopies and they have never been able to find a source. She reports that she is now getting iron infusions and was supposed to get one tomorrow. Treatment Plan: Patient was discussed with Dr. Huynh. She will be admitted the hospital for further evaluation and treatment. Disposition: Admitted in stable condition. Impression: 1. Anemia. 2. Dyspnea. 3. CHF. 4. Renal insufficiency. This note was generated with [employer] dictation software. It may contain incorrect words, spelling, and punctuation that were not noted in review of the chart prior to signing ED Disposition - Plan for ED Patient: Referrals: Steve Turcios MD [Primary Care Provider] -
--- NOTE | 2020-06-01 21:17 | HP.PCM_ITS ---
Problem List (1) CHF (congestive heart failure) Status: Acute Qualifiers: Heart failure type: unspecified Heart failure chronicity: unspecified Qualified Code(s): I50.9 - Heart failure, unspecified (2) FRANSISCA (acute kidney injury) Status: Acute (3) Obesity (BMI 30-39.9) Status: Chronic (4) Rheumatoid aortitis Status: Chronic (5) Chronic back pain Status: Chronic Qualifiers: Back pain location: back pain in unspecified location Back pain laterality: unspecified Qualified Code(s): M54.9 - Dorsalgia, unspecified; G89.29 - Other chronic pain (6) Lupus Status: Chronic Qualifiers: Systemic lupus erythematosus type: unspecified Systemic lupus erythematosus organ involvement: unspecified Qualified Code(s): M32.9 - Systemic lupus erythematosus, unspecified (7) Hyperlipidemia Status: Chronic Qualifiers: Hyperlipidemia type: unspecified Qualified Code(s): E78.5 - Hyperlipidemia, unspecified (8) Diabetes mellitus, type II Status: Chronic Qualifiers: Diabetes mellitus [facility] insulin use: with [facility] use Diabetes mellitus complication status: with other specified complication Qualified Code(s): E11.69 - Type 2 diabetes mellitus with other specified complication; Z79.4 - terminal gauger (current) use of insulin History of Present Illness Date of Admission: 06/01/20 Chief Complaint: Abnormal labs, sent per PCP. The patient is a 65 y/o F w/ PMHx: Obesity, Anxiety and Depression, Diabetes mellitus type II with neuropathy, Rheumatoid arthritis/Lupus, HTN, HLD, Hx GI bleed with chronic anemia with prior upper and lower endoscopies with no source requiring iron transfusions with next planned infusion 06/02/2020 per her report who presents to the [facility] ED on 06/01/20 with history of ongoing intermittent dyspnea, worse with exertion and when laying down with no specific PND orthopnea with a weight gain of approximately 10 pounds over the last 11 days with increased lower extremity swelling as well as decreased urine output prompting referral to the ED for evaluation. She denies any chest pain associated with her dyspnea. Patient has had no bright red blood, dark or maroon stools. She denies any hematemesis. Work-up in the ED included T 97.4, heart rate 69, BP 143/62, respiratory rate 18, other percent on room air, CBC with WC 12.4, hemoglobin 8, platelet 461 with left shift, CMP with potassium 3.3, chloride 111, carbon oxide 20, BUN/creatinine 48/1.67, glucose 68, total bilirubin 0.20, direct bilirubin 0.07, AST/ALT 13/19, alk phos 237, troponin less than 0.015, BNP 108.4, rapid Covid antigen negative, type and screen pending per ED, chest x-ray with questionable vascular congestion, EKG with sinus rhythm with right bundle branch block unchanged from previous. Past Medical History Past Medical History (Chronic Problems): Chronic Problems (Last Reviewed 04/17/19 @ 16:[address] Darion Walsh DO) Obesity (BMI 30-39.9) (Chronic) Rheumatoid aortitis (Chronic) Chronic back pain (Chronic) Diastolic dysfunction (Chronic) Right bundle branch block (Chronic) Obesity, morbid, BMI 40.0-49.9 (Chronic) Lupus (Chronic) Hyperlipidemia (Chronic) Diabetes mellitus, type II (Chronic) Medical History: Medical History (Last Reviewed 04/17/19 @ 16:[address] Darion Walsh DO) Diastolic dysfunction (Chronic) I51.9 Right bundle branch block (Chronic) I45.10 Obesity, morbid, BMI 40.0-49.9 (Chronic) E66.01 Lupus (Chronic) M32.9 Hyperlipidemia (Chronic) E78.5 Diabetes mellitus, type II (Chronic) E11.9 Anemia D64.9 Anxiety F41.9 Chronic pain G89.29 DDD (degenerative disc disease) Depression F32.9 Esophagitis K20.9 Fibromyalgia M79.7 GI bleed K92.2 Osteoarthritis M19.90 Peripheral neuropathy G62.9 Rheumatoid arteritis I00 Rheumatoid arthritis M06.9 Allergies No Known Allergies Allergy (Verified 06/01/20 17:55) Home Medications: Ambulatory Orders Medication Instructions Recorded Bupropion HCl [Bupropion Xl] 150 mg PO DAILY 04/17/19 Cholecalciferol (Vitamin D3) 50,000 unit PO SA 04/17/19 [Vitamin D3] Fluoxetine [Prozac] 60 mg PO DAILY 04/17/19 Furosemide [Lasix] 20 mg PO DAILY 04/17/19 Gabapentin [Neurontin] 300 mg PO TID 04/17/19 Hydroxychloroquine [Plaquenil] 200 mg PO DAILYCM 04/17/19 Insulin Glargine,Hum.rec.anlog 60 unit SQ QHS 04/17/19 [Lantus Solostar] Metformin HCl [Metformin HCl ER] 500 mg PO BIDCM 04/17/19 Omeprazole 40 mg PO DAILY 04/17/19 Pravastatin [Pravachol] 20 mg PO QHS 04/17/19 Melatonin 3 mg PO QHS PRN tab 04/20/19 Nystatin Powder [Mycostatin Powder] 1 applic TOPICAL TID bottle 04/20/19 Oxycodone Myristate [Xtampza ER] 18 mg PO BID 06/01/20 Sucralfate 1 gm PO TID 06/01/20 Surgical History: Surgical History (Last Reviewed 04/17/19 @ 16:[address] Darion Walsh DO) H/O repair of right rotator cuff Z98.890 History of carpal tunnel surgery Z98.890 History of left heart catheterization Onset Date: 08/01/07 Z98.890 History of lumbar fusion Z98.1 History of open reduction and internal fixation (ORIF) procedure Z98.890 right ankle History of total knee replacement Z96.659 History of tubal ligation Z98.51 Hx of cholecystectomy Z90.49 S/P insertion of spinal cord stimulator Z98.890 Surgical History: cholecystectomy, - - Back surgery (fusion, rods) x 2, R ankle surgery, R shoulder surgery, BL wrist CT release, spinal cord stimulator, right rotator cuff repair, total knee replacement, bilateral tubal ligation. Psychiatric History: Anxiety, Depression HANDY MAN History: No pertinent HANDY MAN history Lives: With Family - She notes her mother lives with her whom she cares for. Smoking Status: Former smoker - Patient smoked for less than 1 year proximately 34 years prior to current presentation. Tobacco Use: Non-smoker Alcohol: None Drugs: None - *Family History Maternal Family History: Family History (Last Reviewed 04/17/19 @ 16:[address] Darion Walsh DO) Father Cancer Mother Hypertension History Items: Hypertension Paternal Family History: Family History (Last Reviewed 04/17/19 @ 16:[address] Darion Walsh DO) Father Cancer Mother Hypertension History Items: Cancer - Father with history of pancreatic cancer. Review of Systems Constitutional: Reports: Malaise, Weakness, Weight Change, Fatigue. Denies: Chills, Fever HEENT: Denies: Head Aches, Sinus Congestion, Sinus Drainage Cardiovascular: Reports: Edema. Denies: Chest Pain, Chest Pressure, Chest Tightness, Light Headedness, Palpitations, Paroxysmal Noc. Dyspnea Respiratory: Reports: Shortness of breath upon exertion. Denies: Cough, Shortness of Breath, Shortness of breath at rest, Sputum production Gastrointestinal: Denies: Abdominal Pain, Nausea, Vomiting Genitourinary: Denies: Dysuria Musculoskeletal: Reports: Back Pain, Joint Pain, Leg Pain. Denies: Joint Tenderness Skin: Denies: Rash, Wounds Neurological: Denies: Numbness, Tingling, Focal weakness Psychiatric: Reports: Anxiety, Depression. Denies: Homicidal Ideations, Rosalba cidal Ideations Hematologic/ Lymphatic: Reports: Anemia. Denies: Easy Bruising, Easy Bleeding VTE Information - Inpt Only VTE Present on Admission: No VTE Mechan Device Prophylaxis: SCD's VTE Pharm Prophylaxis ordered?: Yes Patient Problems: Active and Suspected Problems (Last Reviewed 04/17/19 @ 16:[address] Darion Walsh, DO) CHF (congestive heart failure) (Acute) FRANSISCA (acute kidney injury) (Acute) Subjective: Patient seated upright in the ED bed, mildly anxious regarding etiology for presentation, no acute distress from a pulmonary standpoint. Objective: Physical Examination: General: awake, alert, oriented x 3 and cooperative, seated upright in the ED bed, no obvious distress. Skin: normal color, turgor, no icterus, cyanosis except the PVD type changes to bilateral lower extremities. HEENT: AT/NC, EOMI, PERRLA, MMM, no carotid bruits, + JVD although mild. Lungs: Primarily diminished breath sounds, greater bases, decreased effort, no specific rales noted but extremely poor effort and diminished, no obvious rhonchi or wheezing. Heart: Regular rate and rhythm; no gallop, rub audible. Abdomen: soft, obese, NTTP, ND, distant normal BS, unable to discern HSM secondary to habitus. Extremities: no cyanosis or clubbing, bilateral lower extremity ankle to proximal heller edema although not markedly pitting but discomfort bilaterally with palpation and notes it feels tense. Neurological: patient awake, alert, oriented as noted; cognitive function intact; pupils equally reactive to light and accomodation; cranial nerves II-XII grossly normal, moving all 4 extremities, no focal deficits, strength moderately global decrease secondary to acute presentation. Psychiatric: affect appears mildly anxious otherwise normal, no acute evidence of depressive feelings. - Physical Exam Vitals/I&O's: Vital Signs Temp Pulse Resp BP Pulse Ox 97.4 F L 69 20 H 143/62 H 100 06/01/20 20:41 06/01/20 20:41 06/01/20 20:41 06/01/20 20:41 06/01/20 20:41 Oxygen Delivery Method Room Air Weight: 233 lb Body Mass Index (BMI) 38.7 Finger Stick Blood Glucose 216 Microbiology Past 72 Hours 06/01/20 20:25 Mucosa - Nasopharyngeal SARS-CoV-2 Antigen (Rapid) - Final Laboratory Results 06/01/20 19:28: WBC 12.4 H, RBC 3.32 L, Hgb 8.0 L, Hct 27.9 L, MCV 84.0, MCH 24.1 L, MCHC 28.7 L, RDW Std Deviation 54.5 H, RDW Coeff of Vikram 18.1 H, Plt Count 461 H, MPV 9.3, Immature Gran % (Auto) 4.000 H, Neut % (Auto) 71.6 H, Lymph % (Auto) 12.5 L, Hubbard % (Auto) 7.0, Eos % (Auto) 4.3, Baso % (Auto) 0.6, Absolute Neuts (auto) 8.9 H, Absolute Lymphs (auto) 1.54, Nucleated RBC % 1.0 06/01/20 19:28: Sodium 139, Potassium 3.3 L, Chloride 111 H, Carbon Dioxide 20.0 L, Anion Gap 8, BUN 48 H, Creatinine 1.67 H, Estim Creat Clear Calc 30.62, Est GFR (MDRD) Af Amer 40 L, Est GFR (MDRD) Non-Af 33 L, BUN/Creatinine Ratio 28.7 H , Glucose 68 L, Calcium 9.0 06/01/20 19:28: Total Bilirubin 0.20, Direct Bilirubin 0.07, AST 13 L, ALT 19, Alkaline Phosphatase 237 H, Troponin I < 0.015, Total Protein 7.4, Albumin 3.0 L , Globulin 4.4 H 06/01/20 19:28: B-Natriuretic Peptide 108.4 H 06/01/20 20:40: Blood Type Pending, Antibody Screen Pending Assessment/Plan All Active Problems (Last Reviewed 04/17/19 @ 16:[address] Darion Walsh, DO) Aspiration pneumonia (Acute) Toxic encephalopathy (Acute) CHF (congestive heart failure) (Acute) Acute metabolic encephalopathy (Acute) FRANSISCA (acute kidney injury) (Acute) The patient is a 65 y/o F w/ PMHx: Obesity, Anxiety and Depression, Diabetes mellitus type II with neuropathy, Rheumatoid arthritis/Lupus, HTN, HLD, Hx GI bleed with chronic anemia with prior upper and lower endoscopies with no source requiring iron transfusions with next planned infusion 06/02/2020 per her report who presents to the [facility] ED on 06/01/20 with history of ongoing intermittent dyspn ea, worse with exertion and when laying down with no specific PND orthopnea with a weight gain of approximately 10 pounds over the last 11 days with increased lower extremity swelling as well as decreased urine output. 1. Exertional dyspnea suspected secondary to ? Acute CHF, unclear type: BNP not markedly elevated, CXR with questionable congestion, reporting weight gain. Certainly if no marked findings consistent with CHF, may certainly be renal component, ? nephrotic syndrome and more investigation would be necessary. In interim to assure CHF evaluation, will admit to PCU, maintain on cardiac telemetry, obtain cardiac enzyme series, obtain serial EKGs, initiate IV lasix diuresis, monitor I/Os, continue medical therapy, obtain TSH and magnesium level. 06/04/2018 echocardiogram with EF 65%, normal diastolic fx for age, mildly dilated RV, no AV vegetation reported at that time, similar to 2014 with only noted mild AV thickening thus given timeline will repeat. May consider cardiology consultation and/or stress testing. Place CUONG wraps. 2. Acute on chronic normocytic anemia, iron deficient with history of GI bleed we will continue patient sucralfate, PPI regimen.: Admission hemoglobin 8, most recently noted prior 05/01/20192011 but prior to this baseline appears 9-10, will obtain guaiac, iron panel, ferritin, TIBC, vitamin B12 and folic acid levels, continue to trend CMP. Suspect likely with treatment of #1 may require PRBC administration, will initiate IV iron transfusion. 3. Acute kidney injury: Unclear etiology, possibly #1 and #2. Admission BUN/Cr 48/1.67, prior baseline creatinine noted to be 0.7-0.8, most recently 05/01/2019 0.96. Will defer hydration given #1 presentation as noted, cautiously using IV lasix as noted pending further cardiac evaluation, will obtain UA and FeNa. 4. Hypokalemia: Admission K+ 3.3, magnesium level requested, supplementation given, repeat level in AM. 5. Diabetes mellitus type II with Hypoglycemia with neuropathy: Admission inocencia bowman 68, will hold patient oral diabetic regimen, will continue monitor blood sugar and likely hold subcu regimen this evening but continue insulin the following evening if appropriate, will obtain HgbA1c, continue gabapentin regimen with alterations as needed pending further renal function assessment 6. Chronic pain syndrome: Patient with chronic back pain, prior surgery, post- stimulator, we will continue patient home chronic pain regimen although if renal function worsens will necessitate alteration. 7. Rheumatoid arthritis: We will continue patient home Plaquenil regimen. 8. Anxiety and depression: We will continue patient home fluoxetine regimen as well as bupropion. 9. Hyperlipidemia: Continue home statin regimen. AM FLP. 10. Hypertension: Continue home regimen including IV Lasix as noted given #1 but may alter once results return, PRN hydralazine. 11. Obesity: Weight loss and lifestyle changes encouraged, nutrition consulted. 12. DVT prophylaxis: SCDs, hold chemoprophylaxis given unclear specific etiology for acute on chronic anemia as noted. 13. CODE status: Patient FRANKLIN is her daughter Cari who is present and living will is currently in place. Discussed CODE status at length including difference between FULL code, DNR-CCA and DNR-CC status. Following discussions about the differences in these status, requested Full Code status. Advanced Care Planning Face to Face Time: 16 minutes. OBSV E&M: 78945 Initial observation care L3 Procedures: 87557 Advncd Care Plan 30 Min
--- NOTE | 2020-06-01 22:06 | ECHOD_ITS ---
Reason For Study: DYSPNEA Procedure This was a 2D Doppler, Color Flow transthoracic echocardiogram. Exam performed in department. Left Ventricle Normal LV size. The estimated ejection fraction is 70 %. Diastolic function is indeterminate. No regional wall motion abnormalities noted. Right Ventricle Normal RV size. Normal systolic function. Atria Normal left atrium. Normal right atrium. No doppler evidence for ASD. Mitral Valve There is no mitral valve stenosis. No mitral valve insufficiency. Tricuspid Valve There is no tricuspid stenosis. Unable to estimate RV systolic pressure due to insufficient tricuspid regurgitant envelope. Aortic Valve Trisinus/trileaflet aortic valve. Aortic sclerosis, no stenosis. No aortic valve insufficiency. Pulmonic Valve There is no pulmonic valvular stenosis. No pulmonic valve insufficiency. Great Vessels Normal aortic root. Pericardium/Pleural Small pericardial effusion. MMode/2D Measurements & Calculations LVIDd: 5.2 cm IVSd: 0.92 cm LVOT diam: 2.0 cm LVIDs: 3.8 cm LVPWd: 1.1 cm LVOT area: 3.0 cm2 RVDd: 3.6 cm FS: 26.1 % Ao root diam: 3.1 cm LAV(MOD-bp): 63.2 ml LA A4 area: 20.7 cm2 LAV(MOD-bp) Indexed: 30.1 ml/m2 LAV(MOD-sp2): 64.4 ml LAV(MOD-sp4): 61.1 ml LA dimension(2D): 4.0 cm RA A4 area: 16.0 cm2 Time Measurements MV dec time: 0.20 sec Doppler Measurements & Calculations MV E max reggie: 102.6 cm/sec Lat Peak E' Reggie: 5.9 cm/sec Med Peak E' Reggie: 8.8 cm/sec MV A max reggie: 108.3 cm/sec E/E' lat: 17.5 E/E' med: 11.7 MV E/A: 0.95 Ao V2 max: 195.7 cm/sec LV V1 max: 130.8 cm/sec SV(LVOT): 80.9 ml Ao max P.3 mmHg LV V1 max P.8 mmHg Ao V2 mean: 136.7 cm/sec LV V1 mean P.8 mmHg Ao mean P.2 mmHg LV V1 mean: 93.7 cm/sec Ao V2 VTI: 39.0 cm LV V1 VTI: 26.6 cm BELINDA(I,D): 2.1 cm2 BELINDA(V,D): 2.0 cm2 PA V2 max: 130.3 cm/sec Interpretation Summary The estimated ejection fraction is 70 %. Diastolic function is indeterminate. Small pericardial effusion. Aortic sclerosis, no stenosis. Ordering Physician: Melissa Huynh Referring Physician: Steve Turcios Performed By: Paula Chan, ANAI, RVT
--- NOTE | 2020-06-01 22:51 | NURSING ---
Pt. blood glucose 64 at this time. Accepting chicken noodle soup, applesauce, and diet sprite.
[2020-06-01 22:55] LABS: Ferritin 298 ng/mL (8-252); Iron 40 ug/dL (50-170); Iron Binding Capacity,Total 328 ug/dL (250-450); Magnesium 2.5 mg/dL (1.6-2.6); PERCENT IRON SATURATION 12.2 % (15.0-55.0)
[2020-06-01 22:56] LABS: Bedside Glucose 64 mg/dL (70-110)
[2020-06-01] MEDS: Sodium Ferric Gluconat 250 MG in 0.9% Normal Saline 250 ML 135 MG IV (23:19)
[2020-06-01] MEDS: 0.9% Saline Lock 10 ML Syringe IV (23:24)
[2020-06-01] MEDS: Gabapentin 300 MG Capsule PO (23:31)
[2020-06-01] MEDS: Pravastatin 20 MG Tablet PO (23:31)
[2020-06-01] MEDS: Potassium Chloride Oral Tablet 20 MEQ 40 MEQ PO (23:31)
[2020-06-01] MEDS: Sucralfate 1 GM Tablet PO (23:32)
[2020-06-01] MEDS: Nystatin Powder 15gm Bottle 1 APPLIC TOPICAL (23:32)
[2020-06-01] MEDS: Furosemide 40 MG/4 ML Vial IV (23:32)
[2020-06-01 23:54] LABS: Mucous, Urine 0 SEEN /hpf (<or=2+)
[2020-06-01 23:55] LABS: Color, Urine Yellow (Yellow); Glucose, Dipstick Normal (Normal); Ketone-Dipstick Negative (Negative); Leukocyte Esterase-Dipstick 500 /ul (Negative); Nitrite-Dipstick Positive (Negative); Occult Blood-Urine 10 /ul (Negative); Protein-Dipstick 15 mg/dl (Negative); Specific Gravity, Urine 1.015 (1.002-1.030); Urine Bilirubin Dipstick Negative (Negative); Urine Clarity Clear (Clear); Urine Urobilinogen Normal (Normal)
[2020-06-02] VITALS (10 sets, daily range): BP systolic 116–160; BP diastolic 51–90; PULSE 69–78; RESP 16–18; TEMP 36.4–37.2; O2SAT 96–99
[2020-06-02 00:03] LABS: Bacteria 3+ /hpf (None Seen); Red Blood Cells-Urine 0-5 SEEN /hpf (0-5); Squamous Epithelial Cells - UA 0-5 SEEN /hpf (5-10); White Blood Cells 10-25 SEEN /hpf (0-5)
[2020-06-02 00:05] LABS: Urine Sodium 35 mmol/L (Not Establ.)
[2020-06-02 02:22] LABS: Absolute Lymphocyte Count 1.57 X10^3/uL (0.83-4.51); Absolute Neutrophil Count 7.8 X10^3/uL (2.0-7.7); Basophil# 0.07 X10^3/uL; Basophil% 0.6 % (0-1); Eosinophils% 4.5 % (0-5); Hematocrit 25.7 % (37-47); Hemoglobin 7.5 g/dL (12.0-15.0); Lymphocyte # 1.57 X10^3/ul (4.0); Lymphocyte % 14.2 % (19-41); Mean Corp Hgb Conc 29.2 g/dL (32-36); Mean Corpuscular Hgb 24.1 pg (27.0-32.0); Mean Corpuscular Volume 82.6 fL (81-99); Mean Platelet Vol. 9.1 fl (6.2-12.0); Monocyte# 0.73 X10^3/uL; Monocyte% 6.6 % (0-10); NRBC Flagged by Analyzer 0.6 % (0-5); Neutrophil # 7.81 X10^3/uL (2.7-7.7); Neutrophil % 70.6 % (47-70); Platelet Count 422 K/mm3 (150-450); RBC Distribution Width CV 18.3 % (11.6-14.6); RBC Distribution Width SD 53.9 fl (35.1-43.9); Red Blood Count 3.11 M/mm3 (4.2-5.4); White Blood Count 11.1 K/mm3 (4.4-11.0)
[2020-06-02 02:47] LABS: ALB/GLOB Ratio 0.7 RATIO (0.9-2.4); AST(SGOT) 12 U/L (15-37); Alanine Aminotransfer ALT/SGPT 17 U/L (13-56); Albumin, Serum 2.8 g/dL (3.2-5.0); Alkaline Phosphatase 209 U/L (45-117); Anion Gap 10 (5-15); BUN 42 mg/dL (7-18); BUN/Creat Ratio 29.6 RATIO (10-20); Calcium,Total 8.3 mg/dL (8.5-10.1); Chloride 111 mmol/L (98-107); Cholesterol 98 mg/dL (200); Creatinine, Serum 1.42 mg/dL (0.55-1.02); EST Glomerular Filtration Rate 40 mL/min (>60); Est Glom Filt Rate - Afr Amer 48 mL/min (>60); Estimated Creatinine Clearance 37.47 ml/min; Glucose 107 mg/dL (74-106); High Density Lipoprotein 40 mg/dL; Potassium 2.8 mmol/L (3.5-5.1); Protein, Total 6.8 g/dL (6.4-8.2); Sodium Level 140 mmol/L (136-145); T4 Free Direct 0.77 ng/dL (0.76-1.46); Thyroid Stim Hormone (TSH) 0.87 uIU/mL (0.358-3.74); Triglycerides 124 mg/dL; Very Low Density Lipoprotein 25 mg/dL (5-40)
[2020-06-02] MEDS: Potassium Chloride Oral Tablet 20 MEQ 60 MEQ PO (04:24)
--- NOTE | 2020-06-02 05:55 | EKG12_ITS ---
Test Reason : AM EKG Blood Pressure : / mmHG Vent. Rate : 064 BPM Atrial Rate : 064 BPM P-R Int : 214 ms QRS Dur : 156 ms QT Int : 472 ms P-R-T Axes : 060 035 017 degrees QTc Int : 486 ms Sinus rhythm with 1st degree A-V block Right bundle branch block Abnormal ECG When compared with ECG of 01-JUN-2020 19:55, MANUAL COMPARISON REQUIRED, DATA IS UNCONFIRMED Confirmed by JEISON YIN, NIKKI ([id number]), manuscript editor BRYANT FELIZ ([id number]) on 06/07/2020 1:06:16 PM Referred By: DR RODRIGUEZ Confirmed By:NIKKI MCHUGH MD
[2020-06-02] MEDS: Sucralfate 1 GM Tablet PO ×3 (06:41→21:52)
[2020-06-02] MEDS: Gabapentin 300 MG Capsule PO ×3 (06:41→21:51)
[2020-06-02] MEDS: Acetaminophen 325 MG Tablet 650 MG PO ×2 (06:41→16:42)
[2020-06-02] MEDS: Nystatin Powder 15gm Bottle 1 APPLIC TOPICAL ×3 (06:43→21:51)
[2020-06-02 07:00] LABS: Bedside Glucose 85 mg/dL (70-110)
[2020-06-02 07:46] LABS: Hemoglobin A1c 5.7 % (3.8-5.6)
[2020-06-02] MEDS: Glucerna Shake 120 ML LIQUID PO (08:01)
[2020-06-02] MEDS: Hydroxychloroquine 200 MG Tablet PO (08:01)
[2020-06-02] MEDS: Pantoprazole Sodium 40 MG Tablet PO ×2 (10:05→21:52)
[2020-06-02] MEDS: FLUoxetine 20 MG Capsule 60 MG PO (10:06)
[2020-06-02] MEDS: buPROPion (XL) 150 MG TABLET.XL PO (10:07)
[2020-06-02] MEDS: Furosemide 40 MG/4 ML Vial IV ×2 (10:08→16:42)
[2020-06-02] MEDS: Ceftriaxone 1 GM/50 mL Premix Q24 IV (10:32)
--- NOTE | 2020-06-02 10:40 | PN_ITS ---
<Luis ManuelLeanna CARPET TILE LAYER - Last Filed: 06/02/20 11:33> Patient Problems: Active and Suspected Problems (Last Reviewed 04/17/19 @ 16:[address] Darion hull DO) CHF (congestive heart failure) (Acute) FRANSISCA (acute kidney injury) (Acute) Subjective: Patient seen and examined. Reports improvement in shortness of breath. Reports improvement in swelling as well. Hoping to return home soon. Denies other symptoms or complaints. - Physical Exam Vitals/I&O's: Vital Signs Temp Pulse Resp BP Pulse Ox 98.7 F 73 16 160/90 H 99 06/02/20 10:00 06/02/20 10:00 06/02/20 10:00 06/02/20 10:00 06/02/20 10:00 Oxygen Delivery Method Room Air Weight: 231 lb 14.821 oz Body Mass Index (BMI) 37.1 Finger Stick Blood Glucose 216 Intake and Output for Last 24 Hours 05/31/20 06/01/20 06/02/20 23:59 23:59 23:59 Intake Total 240 / 240 390 / 390 Output Total 600 / 600 1100 / 1100 Balance -360 / -360 -710 / -710 General: Alert, Oriented x3, Cooperative HEENT: Atraumatic, PERRLA, EOMI, Normocephalic Neck: Supple, No JVD, Negative Carotid Bruits Lungs: Clear to auscultation, Normal air movement Cardiovascular: Regular rate, No murmurs Abdomen: Bowel Sounds Present, Soft, Non Tender, Non-Distended Extremities: No clubbing, No cyanosis, Edema - Bilateral lower extremities, Yves wraps in place Skin: No rashes, No breakdown, - - L great toe diabetic ulcer- dressing intact Musculoskeletal: No Tenderness to Palpation of Joints or Extremities Lymphatic: No Cervical, Supraclavicular, or Inguinal Adenopathy Neurological: Cranial nerves II-XII grossly intact, Neuro grossly intact Psych/Mental Status: Normal Affect, Appropriate Microbiology Past 72 Hours 06/01/20 20:25 Mucosa - Nasopharyngeal SARS-CoV-2 Antigen (Rapid) - Final Laboratory Results 06/01/20 19:28: WBC 12.4 H, RBC 3.32 L, Hgb 8.0 L, Hct 27.9 L, MCV 84.0, MCH 24.1 L, MCHC 28.7 L, RDW Std Deviation 54.5 H, RDW Coeff of Vikram 18.1 H, Plt Count 461 H, MPV 9.3, Immature Gran % (Auto) 4.000 H, Neut % (Auto) 71.6 H, Lymph % (Auto) 12.5 L, Sunflower % (Auto) 7.0, Eos % (Auto) 4.3, Baso % (Auto) 0.6, Absolute Neuts (auto) 8.9 H, Absolute Lymphs (auto) 1.54, Nucleated RBC % 1.0 06/01/20 19:28: Sodium 139, Potassium 3.3 L, Chloride 111 H, Carbon Dioxide 20.0 L, Anion Gap 8, BUN 48 H, Creatinine 1.67 H, Estim Creat Clear Calc 30.62, Est GFR (MDRD) Af Amer 40 L, Est GFR (MDRD) Non-Af 33 L, BUN/Creatinine Ratio 28.7 H , Glucose 68 L, Calcium 9.0 06/01/20 19:28: Total Bilirubin 0.20, Direct Bilirubin 0.07, AST 13 L, ALT 19, Alkaline Phosphatase 237 H, Troponin I < 0.015, Total Protein 7.4, Albumin 3.0 L , Globulin 4.4 H 06/01/20 19:28: B-Natriuretic Peptide 108.4 H 06/01/20 19:28: Magnesium 2.5, Iron 40 L, TIBC 328, Iron Saturation 12.2 L, Ferritin 298 H, Folate 11.80 06/01/20 19:28: Vitamin B12 Pending 06/01/20 20:40: Blood Type O POSITIVE, Antibody Screen NEGATIVE 06/01/20 22:51: POC Glucose 64 L 06/01/20 22:54: Troponin I < 0.015 06/01/20 23:48: Urine Color Yellow, Urine Clarity Clear, Urine pH 6.0, Ur Specific Trevorton 1.015, Urine Protein 15 H, Urine Glucose (UA) Normal, Urine Ketones Negative, Urine Occult Blood 10 H, Urine Nitrite Positive H, Urine Bilirubin Negative, Urine Urobilinogen Normal, Ur Leukocyte Esterase 500 H, Urine RBC 0-5 SEEN, Urine WBC 10-25 SEEN, Ur Squamous Epith Cells 0-5 SEEN, Urine Bacteria 3+, Urine Mucus 0 SEEN 06/01/20 23:48: Ur Random Sodium 35, Urine Creatinine 42.40 06/02/20 02:15: WBC 11.1 H, RBC 3.11 L, Hgb 7.5 L, Hct 25.7 L, MCV 82.6, MCH 24.1 L, MCHC 29.2 L, RDW Std Deviation 53.9 H, RDW Coeff of Vikram 18.3 H, Plt Count 422, MPV 9.1, Immature Gran % (Auto) 3.500 H, Neut % (Auto) 70.6 H, Lymph % (Auto) 14.2 L, Sunflower % (Auto) 6.6, Eos % (Auto) 4.5, Baso % (Auto) 0.6, Absolute Neuts (auto) 7.8 H, Absolute Lymphs (auto) 1.57, Nucleated RBC % 0.6 06/02/20 02:15: Sodium 140, Potassium 2.8 L, Chloride 111 H, Carbon Dioxide 19.0 L, Anion Gap 10, BUN 42 H, Creatinine 1.42 H, Estim Creat Clear Calc 37.47, Est GFR (MDRD) Af Amer 48 L, Est GFR (MDRD) Non-Af 40 L, BUN/Creatinine Ratio 29.6 H , Glucose 107 H, Calcium 8.3 L, Total Bilirubin 0.30, AST 12 L, ALT 17, Alkaline Phosphatase 209 H, Total Protein 6.8, Albumin 2.8 L, Globulin 4.0, Albumin/Globulin Ratio 0.7 L, Triglycerides 124, Cholesterol 98, LDL Cholesterol 33, VLDL Cholesterol 25, HDL Cholesterol 40, TSH 0.87, Free T4 0.77 06/02/20 02:15: Hemoglobin A1c 5.7 H 06/02/20 02:15: Troponin I < 0.015 06/02/20 06:35: POC Glucose 85 Current Medications Acetaminophen (Acetaminophen 325 Mg Tablet) 650 mg PO Q6H PRN PRN PRN Reason: Pain Score 1-10/Temp > 100.7 F Last Admin: 06/02/20 06:41 Dose: 650 mg Documented by: Al Hydroxide/Mg Hydroxide (Mag Hydrox/Al Hydrox/Simeth 30 Ml Udc) 30 ml PO Q6H PRN PRN PRN Reason: Gastric Burning Albuterol Sulfate (Albuterol 2.5 Mg/3 Ml Vial.Neb.) 2.5 mg INHALATION Q2H PRN PRN PRN Reason: Dyspnea, wheezing Bupropion HCl (Bupropion (Xl) 150 Mg Tablet.Xl) 150 mg PO DAILY [facility] Last Admin: 06/02/20 10:07 Dose: 150 mg Documented by: Fluoxetine HCl (Fluoxetine 20 Mg Capsule) 60 mg PO DAILY [facility] Last Admin: 06/02/20 10:06 Dose: 60 mg Documented by: Furosemide (Furosemide 40 Mg/4 Ml Vial) 40 mg IV BID@1000,1800 [facility] Last Admin: 06/02/20 10:08 Dose: 40 mg Documented by: Gabapentin (Gabapentin 300 Mg Capsule) 300 mg PO TID [facility] Last Admin: 06/02/20 06:41 Dose: 300 mg Documented by: Guaifenesin (Guaifenesin 10 Ml Udc (200mg/10ml)) 20 ml PO Q4H PRN PRN PRN Reason: COUGH Hydralazine HCl (Hydralazine 20 Mg/Ml Vial) 10 mg IV Q4H PRN PRN PRN Reason: SBP > 160 Hydroxychloroquine Sulfate (Hydroxychloroquine 200 Mg Tablet) 200 mg PO DAILYCM [facility] Last Admin: 06/02/20 08:01 Dose: 200 mg Documented by: Ceftriaxone Sodium (Rocephin) 1 gm in 50 mls @ 100 mls/hr IV Q24 [facility] Last Admin: 06/02/20 10:32 Dose: 100 mls/hr Documented by: Insulin Glargine (Insulin Glargine 100 Units/Ml Pen) 60 units SC QHS [facility] Insulin Human Lispro (Insulin Lispro 100 Unit/Ml Insuln.Pen) 0 unit SC [facility]; Protocol Last Admin: 06/02/20 06:38 Dose: Not Given Documented by: Magnesium Hydroxide (Magnesium Hydroxide 30 Ml Udc) 30 ml PO DAILY PRN PRN PRN Reason: Constipation Melatonin (Melatonin 3 Mg Tablet) 3 mg PO QHS PRN PRN PRN Reason: INSOMNIA Nitroglycerin (Nitroglycerin (Inpatient Use) 0.4 Mg Tab.Subl) 0.4 mg SUBLINGUAL Q5M PRN PRN Reason: CARDIAC/CHEST PAIN Nutritional Formula (Lactose Free) (Glucerna Shake 120 Ml Liquid) 120 ml PO TIDCM [facility] Last Admin: 06/02/20 08:01 Dose: 120 ml Documented by: Nystatin (Nystatin Powder 15gm Bottle) 1 applic TOPICAL TID [facility]; Protocol Last Admin: 06/02/20 06:43 Dose: 1 applicatio Documented by: Ondansetron HCl (Ondansetron 4 Mg/2 Ml Vial) 4 mg IV Q8H PRN PRN PRN Reason: NAUSEA/VOMITING Oxycodone HCl (Oxycodone Cr 20 Mg Tablet) 20 mg PO BID [facility] Last Admin: 06/02/20 10:07 Dose: 20 mg Documented by: Pantoprazole Sodium (Pantoprazole Sodium 40 Mg Tablet) 40 mg PO DAILY [facility] Last Admin: 06/02/20 10:05 Dose: 40 mg Documented by: Pravastatin Sodium (Pravastatin 20 Mg Tablet) 20 mg PO QHS [facility] Last Admin: 06/01/20 23:31 Dose: 20 mg Documented by: Prochlorperazine Edisylate (Prochlorperazine 10 Mg/2 Ml Vial) 5 mg IV Q4H PRN PRN PRN Reason: Breakthrough Nausea/Vomiting Psyllium Hydrophilic Mucilloid (Psyllium 1 Packet) 1 packet PO DAILY PRN PRN PRN Reason: Constipation Senna/Docusate Sodium (Senna/Docusate Sodium 1 Tablet) 2 tablet PO BID PRN PRN PRN Reason: Constipation Sodium Chloride (0.9% Saline Lock 10 Ml Syringe) 10 - 40 ml IV UD PRN PRN Reason: SALINE FLUSH Last Admin: 06/01/20 23:24 Dose: 10 ml Documented by: Sucralfate (Sucralfate 1 Gm Tablet) 1 gm PO TID [facility] Last Admin: 06/02/20 06:41 Dose: 1 gm Documented by: Throat Lozenges (Benzocaine/Menthol 1 Lozenge) 1 lozenge MUCOUS MEM Q2H PRN PRN PRN Reason: SORE THROAT Medical Necessity - Tobacco Use Smoking Status: Former smoker - Patient smoked for less than 1 year proximately 34 years prior to current presentation. Tobacco Use: Non-smoker Assessment/Plan All Active Problems (Last Reviewed 04/17/19 @ 16:[address] Darion Walsh DO) Aspiration pneumonia (Acute) Toxic encephalopathy (Acute) CHF (congestive heart failure) (Acute) Acute metabolic encephalopathy (Acute) FRANSISCA (acute kidney injury) (Acute) 1. Presumed acute diastolic CHF- Previous Echocardiogram 06/04/20 demonstrated an EF of 65%. CXR consistent with CHF. BNP 108. Stress echo 2018 negative for ischemia. Troponin negative. IV lasix. Strict I&O. Yves wraps. 2. Acute on chronic anemia/iron deficiency, History of GI bleed- Received routine outpatient iron infusions. IV iron X1. Stool positive for occult blood. Increase PPI. PRBC for hgb <7. Previous endoscopies without source of bleed. 3. Acute kidney injury- improving with diuresis. Trend BMP. 4. Hypokalemia- Replace per protocol. Trend BMP. 5. Acute cystitis- IV rocephin pending cultures. 6. Type 2 Diabetes Mellitus- metformin on hold. Accucheks with SSI, continue lantus regimen. 7. Chronic pain syndrome- continue gabapentin, prn pain regimen. 8. Rheumatoid arthritis- on plaquenil. 9. Anxiety/Depression-on bupropion, fluoxetine. 10. Hypertension-on lasix. If BP remains above goal, consider additional agent. 11. Hyperlipidemia- continue statin. 12. Obesity- encouraged diet and lifestyle modifications. DVT Prophylaxis-SCDs, hold pharmacologic prophylaxis This patient was seen by MICKY Mcconnell under the supervision of Dr. Cho. <Chris Cho - Last Filed: 06/02/20 13:37> Subjective: Seen and examined. Patient has gradual onset of shortness of breath for last 6 months got worse in last 1 week. Patient has exertional dyspnea and orthopnea. Denies any chest pain or pressure. Denies any previous or chronic cardiopulmonary disorder. Bilateral lower extremity swelling/edema. BNP 108.4, nondiagnostic range. Patient is not a smoker. Physical exam General: Alert, Oriented x3, Cooperative, morbid obesity BMI 37.4 kg/m? HEENT: Atraumatic, PERRLA, EOMI, Normocephalic Oral: No Gingival or Mucosal Lesions/ Ulcerations Neck: Supple, No JVD, Negative Carotid Bruits Lungs: Air entry diminished in bilateral lung bases. No crepitation/rhonchi Cardiovascular: consulting actuary shows another rhythm, PVCs and bigeminy. Regular rate, Regular Rhythm, Normal S1, Normal S2, no murmur. Abdomen: Bowel Sounds Present, Soft, Non Tender, Non-Distended : No renal angle tenderness. No suprapubic tenderness. Extremities: Bilateral lower leg edema with Yves wrap bandage, Capillary Refill Less than 3 Seconds Skin: No rashes, No breakdown Musculoskeletal: No Tenderness to Palpation of Joints or Extremities Neurological: Cranial nerves II-XII grossly intact, Deep Tendon Reflexes 2+/4 and Symmetrical, Neuro grossly intact Psych/Mental Status: Normal Affect, Appropriate. - Physical Exam Vitals/I&O's: Vital Signs Temp Pulse Resp BP Pulse Ox 98.7 F 73 16 160/90 H 99 06/02/20 10:00 06/02/20 10:00 06/02/20 10:00 06/02/20 10:00 06/02/20 10:00 Oxygen Delivery Method Room Air Weight: 231 lb 14.821 oz Body Mass Index (BMI) 37.1 Finger Stick Blood Glucose 216 Intake and Output for Last 24 Hours 05/31/20 06/01/20 06/02/20 23:59 23:59 23:59 Intake Total 240 / 240 440 / 440 Output Total 600 / 600 1100 / 1100 Balance -360 / -360 -660 / -660 Microbiology Past 72 Hours 06/02/20 10:12 Stool Stool Occult Blood (BARBARA) - Final Occult Blood Positive 06/01/20 20:25 Mucosa - Nasopharyngeal SARS-CoV-2 Antigen (Rapid) - Final Laboratory Results 06/01/20 19:28: WBC 12.4 H, RBC 3.32 L, Hgb 8.0 L, Hct 27.9 L, MCV 84.0, MCH 24.1 L, MCHC 28.7 L, RDW Std Deviation 54.5 H, RDW Coeff of Vikram 18.1 H, Plt Count 461 H, MPV 9.3, Immature Gran % (Auto) 4.000 H, Neut % (Auto) 71.6 H, Lymph % (Auto) 12.5 L, Sunflower % (Auto) 7.0, Eos % (Auto) 4.3, Baso % (Auto) 0.6, Absolute Neuts (auto) 8.9 H, Absolute Lymphs (auto) 1.54, Nucleated RBC % 1.0 06/01/20 19:28: Sodium 139, Potassium 3.3 L, Chloride 111 H, Carbon Dioxide 20.0 L, Anion Gap 8, BUN 48 H, Creatinine 1.67 H, Estim Creat Clear Calc 30.62, Est GFR (MDRD) Af Amer 40 L, Est GFR (MDRD) Non-Af 33 L, BUN/Creatinine Ratio 28.7 H , Glucose 68 L, Calcium 9.0 06/01/20 19:28: Total Bilirubin 0.20, Direct Bilirubin 0.07, AST 13 L, ALT 19, Alkaline Phosphatase 237 H, Troponin I < 0.015, Total Protein 7.4, Albumin 3.0 L , Globulin 4.4 H 06/01/20 19:28: B-Natriuretic Peptide 108.4 H 06/01/20 19:28: Magnesium 2.5, Iron 40 L, TIBC 328, Iron Saturation 12.2 L, Ferritin 298 H, Folate 11.80 06/01/20 19:28: Vitamin B12 > 2000 H 06/01/20 20:40: Blood Type O POSITIVE, Antibody Screen NEGATIVE 06/01/20 22:51: POC Glucose 64 L 06/01/20 22:54: Troponin I < 0.015 06/01/20 23:48: Urine Color Yellow, Urine Clarity Clear, Urine pH 6.0, Ur Specific Trevorton 1.015, Urine Protein 15 H, Urine Glucose (UA) Normal, Urine Ketones Negative, Urine Occult Blood 10 H, Urine Nitrite Positive H, Urine Bilirubin Negative, Urine Urobilinogen Normal, Ur Leukocyte Esterase 500 H, Urine RBC 0-5 SEEN, Urine WBC 10-25 SEEN, Ur Squamous Epith Cells 0-5 SEEN, Urine Bacteria 3+, Urine Mucus 0 SEEN 06/01/20 23:48: Ur Random Sodium 35, Urine Creatinine 42.40 06/02/20 02:15: WBC 11.1 H, RBC 3.11 L, Hgb 7.5 L, Hct 25.7 L, MCV 82.6, MCH 24.1 L, MCHC 29.2 L, RDW Std Deviation 53.9 H, RDW Coeff of Vikram 18.3 H, Plt Count 422, MPV 9.1, Immature Gran % (Auto) 3.500 H, Neut % (Auto) 70.6 H, Lymph % (Auto) 14.2 L, Sunflower % (Auto) 6.6, Eos % (Auto) 4.5, Baso % (Auto) 0.6, Absolute Neuts (auto) 7.8 H, Absolute Lymphs (auto) 1.57, Nucleated RBC % 0.6 06/02/20 02:15: Sodium 140, Potassium 2.8 L, Chloride 111 H, Carbon Dioxide 19.0 L, Anion Gap 10, BUN 42 H, Creatinine 1.42 H, Estim Creat Clear Calc 37.47, Est GFR (MDRD) Af Amer 48 L, Est GFR (MDRD) Non-Af 40 L, BUN/Creatinine Ratio 29.6 H , Glucose 107 H, Calcium 8.3 L, Total Bilirubin 0.30, AST 12 L, ALT 17, Alkaline Phosphatase 209 H, Total Protein 6.8, Albumin 2.8 L, Globulin 4.0, Albumin/Globulin Ratio 0.7 L, Triglycerides 124, Cholesterol 98, LDL Cholesterol 33, VLDL Cholesterol 25, HDL Cholesterol 40, TSH 0.87, Free T4 0.77 06/02/20 02:15: Hemoglobin A1c 5.7 H 06/02/20 02:15: Troponin I < 0.015 06/02/20 06:35: POC Glucose 85 06/02/20 11:18: POC Glucose 136 H Current Medications Acetaminophen (Acetaminophen 325 Mg Tablet) 650 mg PO Q6H PRN PRN PRN Reason: Pain Score 1-10/Temp > 100.7 F Last Admin: 06/02/20 06:41 Dose: 650 mg Documented by: Al Hydroxide/Mg Hydroxide (Mag Hydrox/Al Hydrox/Simeth 30 Ml Udc) 30 ml PO Q6H PRN PRN PRN Reason: Gastric Burning Albuterol Sulfate (Albuterol 2.5 Mg/3 Ml Vial.Neb.) 2.5 mg INHALATION Q2H PRN P RN PRN Reason: Dyspnea, wheezing Bupropion HCl (Bupropion (Xl) 150 Mg Tablet.Xl) 150 mg PO DAILY [facility] Last Admin: 06/02/20 10:07 Dose: 150 mg Documented by: Fluoxetine HCl (Fluoxetine 20 Mg Capsule) 60 mg PO DAILY [facility] Last Admin: 06/02/20 10:06 Dose: 60 mg Documented by: Furosemide (Furosemide 40 Mg/4 Ml Vial) 40 mg IV BID@1000,1800 [facility] Last Admin: 06/02/20 10:08 Dose: 40 mg Documented by: Gabapentin (Gabapentin 300 Mg Capsule) 300 mg PO TID [facility] Last Admin: 06/02/20 06:41 Dose: 300 mg Documented by: Guaifenesin (Guaifenesin 10 Ml Udc (200mg/10ml)) 20 ml PO Q4H PRN PRN PRN Reason: COUGH Hydralazine HCl (Hydralazine 20 Mg/Ml Vial) 10 mg IV Q4H PRN PRN PRN Reason: SBP > 160 Hydroxychloroquine Sulfate ([facility] 200 Mg Tablet) [facility] Last Admin: 06/02/20 08:01 Dose: 200 mg Documented by: Ceftriaxone Sodium (Rocephin) 1 gm in 50 mls @ 100 mls/hr IV Q24 [facility] Last Infusion: 06/02/20 11:54 Dose: Infused Documented by: Insulin Glargine (Insulin Glargine 100 Units/Ml Pen) 60 units SC QHS [facility] Insulin Human Lispro (Insulin Lispro 100 Unit/Ml Insuln.Pen) 0 unit SC ACHS [facility]; Protocol Last Admin: 06/02/20 11:53 Dose: Not Given Documented by: Magnesium Hydroxide (Magnesium Hydroxide 30 Ml Udc) 30 ml PO DAILY PRN PRN PRN Reason: Constipation Melatonin (Melatonin 3 Mg Tablet) 3 mg PO QHS PRN PRN PRN Reason: INSOMNIA Nitroglycerin (Nitroglycerin (Inpatient Use) 0.4 Mg Tab.Subl) 0.4 mg SUBLINGUAL Q5M PRN PRN Reason: CARDIAC/CHEST PAIN Nystatin (Nystatin Powder 15gm Bottle) 1 applic TOPICAL TID [facility]; Protocol Last Admin: 06/02/20 06:43 Dose: 1 applicatio Documented by: Ondansetron HCl (Ondansetron 4 Mg/2 Ml Vial) 4 mg IV Q8H PRN PRN PRN Reason: NAUSEA/VOMITING Oxycodone HCl (Oxycodone Cr 20 Mg Tablet) 20 mg PO BID [facility] Last Admin: 06/02/20 10:07 Dose: 20 mg Documented by: Pantoprazole Sodium (Pantoprazole Sodium 40 Mg Tablet) 40 mg PO BID [facility] Potassium Chloride (Potassium Chloride Oral Tablet 20 Meq) [facility] Pravastatin Sodium (Pravastatin 20 Mg Tablet) 20 mg PO QHS [facility] Last Admin: 06/01/20 23:31 Dose: 20 mg Documented by: Prochlorperazine Edisylate (Prochlorperazine 10 Mg/2 Ml Vial) 5 mg IV Q4H PRN PRN PRN Reason: Breakthrough Nausea/Vomiting Psyllium Hydrophilic Mucilloid (Psyllium 1 Packet) 1 packet PO DAILY PRN PRN PRN Reason: Constipation Senna/Docusate Sodium (Senna/Docusate Sodium 1 Tablet) 2 tablet PO BID PRN PRN PRN Reason: Constipation Sodium Chloride (0.9% Saline Lock 10 Ml Syringe) 10 - 40 ml IV UD PRN PRN Reason: SALINE FLUSH Last Admin: 06/01/20 23:24 Dose: 10 ml Documented by: Sucralfate (Sucralfate 1 Gm Tablet) 1 gm PO TID [facility] Last Admin: 06/02/20 06:41 Dose: 1 gm Documented by: Throat Lozenges (Benzocaine/Menthol 1 Lozenge) 1 lozenge MUCOUS MEM Q2H PRN PRN PRN Reason: SORE THROAT Assessment/Plan This patient was seen in conjunction with CARPET TILE LAYERLeanna. I have independently interviewed and examined the patient and reviewed pertinent history, examination findings, laboratory and plan of management. I have reviewed the note and agree with the documented findings with the few additional points. In brief, the patient is 65-year-old female admitted for acute on chronic shortness of breath, exertional dyspnea and orthopnea, bilateral lower leg edema consistent with acute on chronic heart failure. 2D echo is done and consistent with acute on chronic diastolic heart failure/HFpEF Interpretation Summary The estimated ejection fraction is 70 %. Diastolic function is indeterminate. Small pericardial effusion. Aortic sclerosis, no stenosis. Patient has acute kidney injury possible due to CHF exacerbation: BUN/creatinine was normal in April 2019. Currently it is 42/1.42 improved with diuresis. Other comorbidities as mentioned above hypokalemia, acute cystitis, type 2 diabetes mellitus, chronic pain syndrome, RA, anxiety and depression, hypertension and dyslipidemia and morbid obesity: UA shows WBC 10-25 cells, 3+ bacteria, positive nitrite. Continue IV Rocephin. I have discussed my assessment with Leanna LYNCH and orders have been reviewed. Inpatient E&M: 91650 Subs Hosp L2
[2020-06-02 11:31] LABS: Bedside Glucose 136 mg/dL (70-110)
--- NOTE | 2020-06-02 11:39 | CASEMGMT ---
RN REN STITCHDOWN TOE FORMER CM to room to meet with patient for initial transition planning/care coordination assessment. ALONA MCCLURE introduced self and role at [facility]. Pt voices understanding and consents to assessment at this time. Pt resting in bed in no distress at this time. Pt is A/O at this time and answers all questions appropriately. Care providers, pharmacy, and demographics verified/updated at this time. PCP: Dr Turcios Specialists: Dr Sommers--pain mgmt. Has been to [facility] in the past, but does not have any f/u appts scheduled. [facility], Goes to in [place] [facility] for Lupus and arthritis, but pt does not remember name of MD. Preferred Pharmacy[facility] Insurance: [facility], [place]DA [facility] Prescription Benefit: Yes LNOK: DaughterLudmila. 2 sons: Melonie Living Arrangements: Lives w/her 86-yr-old mother. Pt is independent with ADL's. Dtr, Ludmila, helps w/medication mgmt and goes to some of her appts with her. Pt/mother share home mgt tasks. Transportation: Pt drives. Mother drives also. Denies transportation concerns. DME: [facility] has the following DME: built-in shower seat, rails/grab bars, hand held shower, quad cane, walker, glucometer Pt states no need for further DME at this time. HHC/SNF: [facility] after knee surgery. [facility] HHC. Pt declines need for HHC or OP therapy. Pt wishes to return home and states has no concerns with going home at time of discharge. Pt states does not smoke or drink ETOH. CM to follow for any further discharge planning/needs. Pt voices no concerns/needs at this time. Advised pt to ask for CM if any questions/concerns/needs arise. Voices understanding. PLAN: Home Angelo FOLEY RN, CM
[2020-06-02 13:13] LABS: Vitamin B12 > 2000 pg/mL (211-911)
[2020-06-02] MEDS: 0.9% Saline Lock 10 ML Syringe IV (16:42)
[2020-06-02] MEDS: Potassium Chloride Oral Tablet 20 MEQ 40 MEQ PO (16:42)
[2020-06-02 17:00] LABS: Bedside Glucose 127 mg/dL (70-110)
[2020-06-02] MEDS: Pravastatin 20 MG Tablet PO (21:53)
[2020-06-02 22:15] LABS: Bedside Glucose 148 mg/dL (70-110)
[2020-06-03 03:00] VITALS: PULSE 76
[2020-06-03] MEDS: Acetaminophen 325 MG Tablet 650 MG PO (03:29)
[2020-06-03 03:50] VITALS: BP 120/58; PULSE 81; RESP 17; TEMP 36.4; O2SAT 97
[2020-06-03] MEDS: Nystatin Powder 15gm Bottle 1 APPLIC TOPICAL (05:55)
[2020-06-03] MEDS: Gabapentin 300 MG Capsule PO (05:55)
[2020-06-03] MEDS: Sucralfate 1 GM Tablet PO (05:55)
[2020-06-03 06:13] LABS: Hematocrit 26.4 % (37-47); Hemoglobin 7.5 g/dL (12.0-15.0); Mean Corp Hgb Conc 28.4 g/dL (32-36); Mean Corpuscular Hgb 24.3 pg (27.0-32.0); Mean Corpuscular Volume 85.4 fL (81-99); Mean Platelet Vol. 9.4 fl (6.2-12.0); Platelet Count 428 K/mm3 (150-450); RBC Distribution Width CV 19.2 % (11.6-14.6); RBC Distribution Width SD 55.6 fl (35.1-43.9); Red Blood Count 3.09 M/mm3 (4.2-5.4)
[2020-06-03 06:43] LABS: Anion Gap 8 (5-15); BUN 32 mg/dL (7-18); BUN/Creat Ratio 23.7 RATIO (10-20); Chloride 111 mmol/L (98-107); Creatinine, Serum 1.35 mg/dL (0.55-1.02); EST Glomerular Filtration Rate 42 mL/min (>60); Est Glom Filt Rate - Afr Amer 51 mL/min (>60); Estimated Creatinine Clearance 39.41 ml/min; Glucose 140 mg/dL (74-106); Potassium 3.7 mmol/L (3.5-5.1); Sodium Level 141 mmol/L (136-145)
[2020-06-03 07:00] VITALS: PULSE 78
[2020-06-03 07:05] LABS: Bedside Glucose 147 mg/dL (70-110)
[2020-06-03 08:27] VITALS: BP 121/86; PULSE 83; RESP 18; TEMP 36.4; O2SAT 98
[2020-06-03] MEDS: Furosemide 40 MG/4 ML Vial IV (08:33)
[2020-06-03] MEDS: FLUoxetine 20 MG Capsule 60 MG PO (08:35)
[2020-06-03] MEDS: Potassium Chloride Oral Tablet 20 MEQ 40 MEQ PO (08:35)
[2020-06-03] MEDS: Hydroxychloroquine 200 MG Tablet PO (08:36)
[2020-06-03] MEDS: Pantoprazole Sodium 40 MG Tablet PO (08:36)
[2020-06-03] MEDS: Ceftriaxone 1 GM/50 mL Premix Q24 IV (08:36)
[2020-06-03] MEDS: buPROPion (XL) 150 MG TABLET.XL PO (08:37)
[2020-06-03 10:02] VITALS: O2SAT 98
--- NOTE | 2020-06-03 10:10 | DCINST_ITS ---
- Discharge Diagnoses Current Active Problems: Current Active and Chronic Problems (Last Reviewed 04/17/19 @ 16:[address] Darion Walsh, DO) CHF (congestive heart failure) (Acute) Obesity (BMI 30-39.9) (Chronic) Rheumatoid aortitis (Chronic) Chronic back pain (Chronic) FRANSISCA (acute kidney injury) (Acute) Lupus (Chronic) Hyperlipidemia (Chronic) Diabetes mellitus, type II (Chronic) You will use the following diet at home:: Cardiac Discharge Activity: Return to Normal Activity Call your doctor if you observe: Shortness of breath, Dizziness, Fainting spells, Chest pain Additional Instructions: Recommend repeat CBC by primary care provider in 3 to 5 days. Allergies/Adverse Reactions: Allergies No Known Allergies Allergy (Verified 06/01/20 17:55) Medications to take at Discharge Bupropion HCl [Bupropion Xl] 150 mg PO DAILY 04/17/19 Cholecalciferol (Vitamin D3) [Vitamin D3] 50,000 unit PO SA 04/17/19 Fluoxetine [Prozac] 60 mg PO DAILY 04/17/19 Gabapentin [Neurontin] 300 mg PO TID 04/17/19 Hydroxychloroquine [Plaquenil] 200 mg PO DAILYCM 04/17/19 Insulin Glargine,Hum.rec.anlog [Lantus Solostar] 60 unit SQ QHS 04/17/19 Metformin HCl [Metformin HCl ER] 500 mg PO BIDCM 04/17/19 Omeprazole 40 mg PO DAILY 04/17/19 Pravastatin [Pravachol] 20 mg PO QHS 04/17/19 Melatonin 3 mg PO QHS PRN tab 04/20/19 Nystatin Powder [Mycostatin Powder] 1 applic TOPICAL TID bottle 04/20/19 Oxycodone Myristate [Xtampza ER] 18 mg PO BID 06/01/20 Sucralfate 1 gm PO TID 06/01/20 Cefadroxil Hydrate [Duricef] 500 mg PO BID #12 cap 06/03/20 Furosemide [Lasix] 40 mg PO DAILY #60 tab 06/03/20 Potassium Chloride Oral Tablet [K-Dur] 20 meq PO BIDCM #30 tab 06/03/20 The following prescriptions were given: Cefadroxil Hydrate [Duricef] 500 mg PO BID #12 cap Transmission Status: Pending to [id number] Potassium Chloride Oral Tablet [K-Dur] 20 meq PO BIDCM #30 tab Transmission Status: Pending to [id number] Furosemide [Lasix] 40 mg PO DAILY #60 tab Transmission Status: Pending to [id number] Primary Care Physician: Steve Turcios MD [Primary Care Provider] - Please follow up with your Primary Care Physician in: Within 1 Week Test Results: Test results from this visit will be discussed in further detail at your follow- up appointment, if applicable. Proposed Discharge Date: 06/03/20
--- NOTE | 2020-06-03 10:15 | DS.PCM_ITS ---
<Leanna Issa DOWEL PIN MAN - Last Filed: 06/03/20 10:24> Discharge Date and Diagnosis - Problem List Patient Problems: Active and Suspected Problems (Last Reviewed 04/17/19 @ 16:[address] Darion Walsh DO) CHF (congestive heart failure) (Acute) FRANSISCA (acute kidney injury) (Acute) Date of Admission: 06/01/20 Date of Discharge: 06/03/20 - Primary Discharge Diagnosis Acute Problems: Active Problems (Last Reviewed 04/17/19 @ 16:[address] Darion Walsh DO) 1. Acute on chronic diastolic CHF 2. Acute on chronic anemia/iron deficiency, History of GI bleed 3. Acute kidney injury 4. Hypokalemia 5. Acute cystitis 6. Type 2 Diabetes Mellitus 7. Chronic pain syndrome 8. Rheumatoid arthritis 9. Anxiety/Depression 10. Hypertension 11. Hyperlipidemia 12. Obesity - Secondary Discharge Diagnosis Chronic Problems: Chronic Problems (Last Reviewed 04/17/19 @ 16:[address] Darion Walsh DO) Obesity (BMI 30-39.9) (Chronic) Rheumatoid aortitis (Chronic) Chronic back pain (Chronic) Diastolic dysfunction (Chronic) Right bundle branch block (Chronic) Obesity, morbid, BMI 40.0-49.9 (Chronic) Lupus (Chronic) Hyperlipidemia (Chronic) Diabetes mellitus, type II (Chronic) Hospital Course and Treatment Imaging Results: Diagnostic Data Chest X-Ray 06/01/20 19:50 IMPRESSION: Findings consistent with CHF/mild pulmonary edema as clinically indicated. Electronically Signed: Dwain Patrick MD at 20:26 EST Tel , Service support , Operations: None Procedures: 2-D Echocardiogram Summary of Care Provided: The patient is a 65 year old F admitted 06/01/2020 due to abnormal labs. 1. Acute on chronic diastolic CHF- Previous Echocardiogram 06/04/20 demonstrated an EF of 65%. CXR consistent with CHF. BNP 108. Stress echo 2018 negative for ischemia. Troponin negative. Repeat echocardiogram demonstrates an EF of 70%, small pericardial effusion. IV Lasix during admission. Increase home Lasix regimen to 40 mg daily at discharge. Follow-up with PCP within 1 week. 2. Acute on chronic anemia/iron deficiency, History of GI bleed- Received routine outpatient iron infusions. IV iron X1. Stool positive for occult blood. Previous endoscopies without source of bleed. Recommend continue home PPI, Carafate regimen. Patient did not require blood transfusion during admission. Recommend repeat CBC in 3 to 5 days by primary care provider. Consider referral to GI for further evaluation pending further outpatient follow-up. 3. Acute kidney injury-improved with diuresis. Recommend further outpatient BMP by PCP. 4. Hypokalemia-replaced per protocol. Potassium supplementation at discharge. 5. Acute cystitis- IV rocephin during admission, transition to renally dosed Duricef at discharge. 6. Type 2 Diabetes Mellitus-continue home oral and insulin regimen. 7. Chronic pain syndrome- continue gabapentin, prn pain regimen. 8. Rheumatoid arthritis- on plaquenil. 9. Anxiety/Depression-on bupropion, fluoxetine. 10. Hypertension-on lasix. 11. Hyperlipidemia- continue statin. 12. Obesity- encouraged diet and lifestyle modifications. General: Alert, Oriented x3, Cooperative HEENT: Atraumatic, PERRLA, EOMI, Normocephalic Neck: Supple, No JVD, Negative Carotid Bruits Lungs: Clear to auscultation, Normal air movement Cardiovascular: Regular rate, No murmurs Abdomen: Bowel Sounds Present, Soft, Non Tender, Non-Distended Extremities: No clubbing, No cyanosis, Edema - Bilateral lower extremities, Yves wraps in place Skin: No rashes, No breakdown, - - L great toe diabetic ulcer- dressing intact Musculoskeletal: No Tenderness to Palpation of Joints or Extremities Lymphatic: No Cervical, Supraclavicular, or Inguinal Adenopathy Neurological: Cranial nerves II-XII grossly intact, Neuro grossly intact Psych/Mental Status: Normal Affect, Appropriate Patient seen and examined prior to discharge. Physical assessment as noted above. Patient is stable for discharge with follow up recommendations as noted above. This patient was seen by MICKY Mcconnell under the supervision of Dr. Cho. Patient Problems: Active and Suspected Problems (Last Reviewed 04/17/19 @ 16:[address] Darion Walsh, DO) CHF (congestive heart failure) (Acute) FRANSISCA (acute kidney injury) (Acute) - Physical Exam Vitals/I&O's: Vital Signs Temp Pulse Resp BP Pulse Ox 97.5 F L 83 18 121/86 H 98 06/03/20 08:27 06/03/20 08:27 06/03/20 08:27 06/03/20 08:27 06/03/20 10:02 Oxygen Delivery Method Room Air Weight: 230 lb 9.656 oz Body Mass Index (BMI) 37.1 Finger Stick Blood Glucose 216 Intake and Output for Last 24 Hours 06/01/20 06/02/20 06/03/20 23:59 23:59 23:59 Intake Total 240 / 240 1390 / 1390 150 / 150 Output Total 600 / 600 2049 Balance -360 / -360 -660 / -660 150 / 150 Microbiology Past 72 Hours 06/02/20 10:12 Stool Stool Occult Blood (BARBARA) - Final Occult Blood Positive 06/01/20 20:25 Mucosa - Nasopharyngeal SARS-CoV-2 Antigen (Rapid) - Final Laboratory Results 06/01/20 19:28: Vitamin B12 > 2000 H 06/02/20 11:18: POC Glucose 136 H 06/02/20 16:32: POC Glucose 127 H 06/02/20 21:46: POC Glucose 148 H 06/03/20 05:25: WBC 13.0 H, RBC 3.09 L, Hgb 7.5 L, Hct 26.4 L, MCV 85.4, MCH 24.3 L, MCHC 28.4 L, RDW Std Deviation 55.6 H, RDW Coeff of Vikram 19.2 H, Plt Count 428, MPV 9.4 06/03/20 05:25: Sodium 141, Potassium 3.7, Chloride 111 H, Carbon Dioxide 22.0, Anion Gap 8, BUN 32 H, Creatinine 1.35 H, Estim Creat Clear Calc 39.41, Est GFR (MDRD) Af Amer 51 L, Est GFR (MDRD) Non-Af 42 L, BUN/Creatinine Ratio 23.7 H, Glucose 140 H, Calcium 9.0 06/03/20 07:01: POC Glucose 147 H Current Medications Acetaminophen (Acetaminophen 325 Mg Tablet) 650 mg PO Q6H PRN PRN PRN Reason: Pain Score 1-10/Temp > 100.7 F Last Admin: 06/03/20 03:29 Dose: 650 mg Documented by: Al Hydroxide/Mg Hydroxide (Mag Hydrox/Al Hydrox/Simeth 30 Ml Udc) 30 ml PO Q6H PRN PRN PRN Reason: Gastric Burning Albuterol Sulfate (Albuterol 2.5 Mg/3 Ml Vial.Neb.) 2.5 mg INHALATION Q2H PRN PRN PRN Reason: Dyspnea, wheezing Bupropion HCl (Bupropion (Xl) 150 Mg Tablet.Xl) 150 mg PO DAILY [facility] Last Admin: 06/03/20 08:37 Dose: 150 mg Documented by: Fluoxetine HCl (Fluoxetine 20 Mg Capsule) 60 mg PO DAILY [facility] Last Admin: 06/03/20 08:35 Dose: 60 mg Documented by: Furosemide (Furosemide 40 Mg/4 Ml Vial) 40 mg IV BID@1000,1800 [facility] Last Admin: 06/03/20 08:33 Dose: 40 mg Documented by: Gabapentin (Gabapentin 300 Mg Capsule) 300 mg PO TID [facility] Last Admin: 06/03/20 05:55 Dose: 300 mg Documented by: Guaifenesin (Guaifenesin 10 Ml Udc (200mg/10ml)) 20 ml PO Q4H PRN PRN PRN Reason: COUGH Hydralazine HCl (Hydralazine 20 Mg/Ml Vial) 10 mg IV Q4H PRN PRN PRN Reason: SBP > 160 Hydroxychloroquine Sulfate (Hydroxychloroquine 200 Mg Tablet) 200 mg PO DAILYCM [facility] Last Admin: 06/03/20 08:36 Dose: 200 mg Documented by: Ceftriaxone Sodium (Rocephin) 1 gm in 50 mls @ 100 mls/hr IV Q24 [facility] Last Infusion: 06/03/20 09:35 Dose: Infused Documented by: Insulin Glargine (Insulin Glargine 100 Units/Ml Pen) 60 units SC QHS [facility] Last Admin: 06/02/20 21:53 Dose: 60 u Documented by: Insulin Human Lispro (Insulin Lispro 100 Unit/Ml Insuln.Pen) 0 unit SC ACHS [facility]; Protocol Last Admin: 06/03/20 07:04 Dose: Not Given Documented by: Magnesium Hydroxide (Magnesium Hydroxide 30 Ml Udc) 30 ml PO DAILY PRN PRN PRN Reason: Constipation Melatonin (Melatonin 3 Mg Tablet) 3 mg PO QHS PRN PRN PRN Reason: INSOMNIA Nitroglycerin (Nitroglycerin (Inpatient Use) 0.4 Mg Tab.Subl) 0.4 mg SUBLINGUAL Q5M PRN PRN Reason: CARDIAC/CHEST PAIN Nystatin (Nystatin Powder 15gm Bottle) 1 applic TOPICAL TID [facility]; Protocol Last Admin: 06/03/20 05:55 Dose: 1 applicatio Documented by: Ondansetron HCl (Ondansetron 4 Mg/2 Ml Vial) 4 mg IV Q8H PRN PRN PRN Reason: NAUSEA/VOMITING Oxycodone HCl (Oxycodone Cr 20 Mg Tablet) 20 mg PO BID [facility] Last Admin: 06/03/20 08:39 Dose: 20 mg Documented by: Pantoprazole Sodium (Pantoprazole Sodium 40 Mg Tablet) 40 mg PO BID [facility] Last Admin: 06/03/20 08:36 Dose: 40 mg Documented by: Potassium Chloride (Potassium [facility]loride Oral Table[facility] 20 Meq) [facility] Last Admin: 06/03/20 08:35 Dose: 40 meq Documented by: Pravastatin Sodium (Pravastatin 20 Mg Tablet) 20 mg PO QHS [facility] Last Admin: 06/02/20 21:53 Dose: 20 mg Documented by: Prochlorperazine Edisylate (Prochlorperazine 10 Mg/2 Ml Vial) 5 mg IV Q4H PRN PRN PRN Reason: Breakthrough Nausea/Vomiting Psyllium Hydrophilic Mucilloid (Psyllium 1 Packet) 1 packet PO DAILY PRN PRN PRN Reason: Constipation Senna/Docusate Sodium (Senna/Docusate Sodium 1 Tablet) 2 tablet PO BID PRN PRN PRN Reason: Constipation Sodium Chloride (0.9% Saline Lock 10 Ml Syringe) 10 - 40 ml IV UD PRN PRN Reason: SALINE FLUSH Last Admin: 06/02/20 16:42 Dose: 10 ml Documented by: Sucralfate (Sucralfate 1 Gm Tablet) 1 gm PO TID [facility] Last Admin: 06/03/20 05:55 Dose: 1 gm Documented by: Throat Lozenges (Benzocaine/Menthol 1 Lozenge) 1 lozenge MUCOUS MEM Q2H PRN PRN PRN Reason: SORE THROAT Discharge Diet: Low fat/ Low Cholesterol, 8 Cup Fluid Restriciton, 2000 mg Sodium Diet Discharge Activity: Return to Normal Activity Call your doctor if you observe: Shortness of breath, Dizziness, Fainting spells, Chest pain Home Medications: Medications to take at Discharge Bupropion HCl [Bupropion Xl] 150 mg PO DAILY 04/17/19 Cholecalciferol (Vitamin D3) [Vitamin D3] 50,000 unit PO SA 04/17/19 Fluoxetine [Prozac] 60 mg PO DAILY 04/17/19 Gabapentin [Neurontin] 300 mg PO TID 04/17/19 Hydroxychloroquine [Plaquenil] 200 mg PO DAILYCM 04/17/19 Insulin Glargine,Hum.rec.anlog [Lantus Solostar] 60 unit SQ QHS 04/17/19 Metformin HCl [Metformin HCl ER] 500 mg PO BIDCM 04/17/19 Omeprazole 40 mg PO DAILY 04/17/19 Pravastatin [Pravachol] 20 mg PO QHS 04/17/19 Melatonin 3 mg PO QHS PRN tab 04/20/19 Nystatin Powder [Mycostatin Powder] 1 applic TOPICAL TID bottle 04/20/19 Oxycodone Myristate [Xtampza ER] 18 mg PO BID 06/01/20 Sucralfate 1 gm PO TID 06/01/20 Cefadroxil Hydrate [Duricef] 500 mg PO BID #12 cap 06/03/20 Furosemide [Lasix] 40 mg PO DAILY #60 tab 06/03/20 Potassium Chloride Oral Tablet [K-Dur] 20 meq PO BIDCM #30 tab 06/03/20 Following Prescriptions Were Given to Patient: Cefadroxil Hydrate [Duricef] 500 mg PO BID #12 cap Transmission Status: Received by [id number] Potassium Chloride Oral Tablet [K-Dur] 20 meq PO BIDCM #30 tab Transmission Status: Received by [id number] Furosemide [Lasix] 40 mg PO DAILY #60 tab Transmission Status: Received by [id number] Primary Care Physician: Steve Turcios MD [Primary Care Provider] - Please follow up with your Primary Care Physician in: Within 1 Week Disposition: Home Minutes spent on discharge:: 35 Patient Condition:: Stable Medical Necessity - Tobacco Use Smoking Status: Former smoker - Patient smoked for less than 1 year proximately 34 years prior to current presentation. Tobacco Use: Non-smoker Meaningful Use Info Meaningful Use Diagnoses (Choose all that apply): CHF - CHF YVES/ARB ordered at discharge?: No Reason YVES/ARB not ordered?: Worsening renal function Documented LVEF (%): 70 <Chris Cho - Last Filed: 06/03/20 17:14> Discharge Date and Diagnosis - Primary Discharge Diagnosis Acute Problems: Active Problems (Last Reviewed 04/17/19 @ 16:[address] Darion Walsh DO) CHF (congestive heart failure) (Acute) FRANSISCA (acute kidney injury) (Acute) - Secondary Discharge Diagnosis Chronic Problems: Chronic Problems (Last Reviewed 04/17/19 @ 16:[address] Darion Walsh DO) Obesity (BMI 30-39.9) (Chronic) Rheumatoid aortitis (Chronic) Chronic back pain (Chronic) Diastolic dysfunction (Chronic) Right bundle branch block (Chronic) Obesity, morbid, BMI 40.0-49.9 (Chronic) Lupus (Chronic) Hyperlipidemia (Chronic) Diabetes mellitus, type II (Chronic) Hospital Course and Treatment Summary of Care Provided: This patient was seen in conjunction with DOWEL PIN MAN, Leanna. I have independently interviewed and examined the patient and reviewed pertinent history, examination findings, laboratory and plan of management. I have reviewed the note and agree with the documented findings with the few additional points. In brief, the patient is 65-year-old female admitted for acute on chronic shortness of breath, exertional dyspnea and orthopnea, bilateral lower leg edema consistent with acute on chronic heart failure. 2D echo is done and consistent with acute on chronic diastolic heart failure/HFpEF. 2D echo finding discussed with the patient consistent with mild diastolic heart failure, mild hyperdynamic LV function. I think patient is mildly short of breath due to chronic rheumatological condition RA and lupus. Interpretation Summary The estimated ejection fraction is 70 %. Diastolic function is indeterminate. Small pericardial effusion. Aortic sclerosis, no stenosis. Patient has acute kidney injury possible due to CHF exacerbation: BUN/creatinine was normal in April 2019. Currently it is 42/1.42 improved with diuresis. K3.7. Improvement in BUN/creatinine, last 132/1.35. Stool for occult blood positive. Acute on chronic iron deficiency anemia: It seems patient has occult GI bleed/mid GI bleed. Patient had nondiagnostic EGD and colonoscopy but probably did not had capsule endoscopy. Stool for occult blood was positive. Decrease in hemoglobin from 8.0/7.5 but was stable for last 2 days. Patient requires regular IV iron infusion by tax technician, Dr. Duong. Other comorbidities as mentioned above hypokalemia, acute cystitis, type 2 diabetes mellitus, chronic pain syndrome, RA, anxiety and depression, hypertension and dyslipidemia and morbid obesity: UA shows WBC 10-25 cells, 3+ bacteria, positive nitrite. Continue IV Rocephin. Urine culture showed more than 100,000 E. coli. Patient discharged on cefadroxil. I have discussed my assessment with DOWEL PIN MAN, Leanna and orders have been reviewed.[] Objective: Seen and examined. Heart rate and blood pressure controlled. property assessment monitor shows sinus rhythm with occasional PVCs and bigeminy. Patient stated she has history of arthritis, rheumatoid arthritis and lupus and physical deconditioning. Physical exam General: Alert, Oriented x3, Cooperative, morbid obesity BMI 37.4 kg/m? HEENT: Atraumatic, PERRLA, EOMI, Normocephalic Oral: No Gingival or Mucosal Lesions/ Ulcerations Neck: Supple, No JVD, Negative Carotid Bruits Lungs: Air entry diminished in bilateral lung bases. No crepitation/rhonchi Cardiovascular: Regular rate, Regular Rhythm, Normal S1, Normal S2, no murmur. Abdomen: Bowel Sounds Present, Soft, Non Tender, Non-Distended : No renal angle tenderness. No suprapubic tenderness. Extremities: Leg edema improved. Capillary Refill Less than 3 Seconds Skin: No rashes, No breakdown Musculoskeletal: No Tenderness to Palpation of Joints or Extremities Neurological: Cranial nerves II-XII grossly intact, Deep Tendon Reflexes 2+/4 and Symmetrical, Neuro grossly intact Psych/Mental Status: Normal Affect, Appropriate. - Physical Exam Vitals/I&O's: Vital Signs Temp Pulse Resp BP Pulse Ox 97.5 F L 83 18 121/86 H 98 06/03/20 08:27 06/03/20 08:27 06/03/20 08:27 06/03/20 08:27 06/03/20 10:02 Oxygen Delivery Method Room Air Weight: 230 lb 9.656 oz Body Mass Index (BMI) 37.1 Finger Stick Blood Glucose 216 Intake and Output for Last 24 Hours 06/01/20 06/02/20 06/03/20 23:59 23:59 23:59 Intake Total 240 / 240 1390 / 1390 150 / 150 Output Total 600 / 600 2049 / 2049 Balance -360 / -360 -660 / -660 150 / 150 Microbiology Past 72 Hours 06/02/20 11:28 Urine, Clean Catch Urine Culture - Preliminary Presumptive E. coli 06/02/20 10:12 Stool Stool Occult Blood (BARBARA) - Final Occult Blood Positive 06/01/20 20:25 Mucosa - Nasopharyngeal SARS-CoV-2 Antigen (Rapid) - Final Laboratory Results 06/02/20 21:46: POC Glucose 148 H 06/03/20 05:25: WBC 13.0 H, RBC 3.09 L, Hgb 7.5 L, Hct 26.4 L, MCV 85.4, MCH 24.3 L, MCHC 28.4 L, RDW Std Deviation 55.6 H, RDW Coeff of Vikram 19.2 H, Plt Count 428, MPV 9.4 06/03/20 05:25: Sodium 141, Potassium 3.7, Chloride 111 H, Carbon Dioxide 22.0, Anion Gap 8, BUN 32 H, Creatinine 1.35 H, Estim Creat Clear Calc 39.41, Est GFR (MDRD) Af Amer 51 L, Est GFR (MDRD) Non-Af 42 L, BUN/Creatinine Ratio 23.7 H, Glucose 140 H, Calcium 9.0 06/03/20 07:01: POC Glucose 147 H Inpatient E&M: [id number] Disch Hosp
--- NOTE | 2020-06-03 10:28 | PHA.DC.MC ---
Pharmacy Service has performed discharge medication reconciliation and counseling for this patient. 1. CEFADROXIL 500MG PO BID X 6 DAYS 2. FUROSEMIDE 40MG PO DAILY 3. POTASSIUM CHLORIDE 20MEQ PO BIDCM The patient's discharge medication list was reviewed for discrepancies and discrepancies were resolved. Home Medications Bupropion HCl [Bupropion Xl] 150 mg PO DAILY 04/17/19 Cholecalciferol (Vitamin D3) [Vitamin D3] 50,000 unit PO SA 04/17/19 Fluoxetine [Prozac] 60 mg PO DAILY 04/17/19 Gabapentin [Neurontin] 300 mg PO TID 04/17/19 Hydroxychloroquine [Plaquenil] 200 mg PO DAILYCM 04/17/19 Insulin Glargine,Hum.rec.anlog [Lantus Solostar] 60 unit SQ QHS 04/17/19 Metformin HCl [Metformin HCl ER] 500 mg PO BIDCM 04/17/19 Omeprazole 40 mg PO DAILY 04/17/19 Pravastatin [Pravachol] 20 mg PO QHS 04/17/19 Melatonin 3 mg PO QHS PRN tab 04/20/19 Nystatin Powder [Mycostatin Powder] 1 applic TOPICAL TID bottle 04/20/19 Oxycodone Myristate [Xtampza ER] 18 mg PO BID 06/01/20 Sucralfate 1 gm PO TID 06/01/20 Cefadroxil Hydrate [Duricef] 500 mg PO BID #12 cap 06/03/20 Furosemide [Lasix] 40 mg PO DAILY #60 tab 06/03/20 Potassium Chloride Oral Tablet [K-Dur] 20 meq PO BIDCM #30 tab 06/03/20 The patient was counseled on the following discharge medications and changes in medications for homegoing were reviewed. The Reason for Use, instructions for use, and potential side effects were reviewed for all new medications. The patient's questions regarding all of their medications were answered. The patient was able to verbally demonstrate an understanding of their discharge medications. Patient counseled by pharmacy informatics specialist, Alannah.
== END 2020-06-03 12:20 | disposition home or self-care (01) | DRG 292 ==
LOC: ED 21:21 → PCU 21:37
PROVIDERS: Nurse Practitioner Family; Admitting Provider Family Medicine; Emergency Provider Emergency Medicine; PCP Family Medicine; Visit Provider Internal Medicine
DX: I11.0 Hypertensive heart disease with heart failure (principal); I50.33 Acute on chronic diastolic (congestive) heart failure; N17.9 Acute kidney failure, unspecified; N30.00 Acute cystitis without hematuria; E11.21 Type 2 diabetes mellitus with diabetic nephropathy; E11.40 Type 2 diabetes mellitus with diabetic neuropathy, unspecified; E11.649 Type 2 diabetes mellitus with hypoglycemia without coma; D50.9 Iron deficiency anemia, unspecified; M32.9 Systemic lupus erythematosus, unspecified; E87.6 Hypokalemia; M05.30 Rheumatoid heart disease with rheumatoid arthritis of unspecified site; G89.4 Chronic pain syndrome; Z20.822 Contact with and (suspected) exposure to COVID-19; E78.5 Hyperlipidemia, unspecified; M79.7 Fibromyalgia; F32.9 Major depressive disorder, single episode, unspecified; F41.9 Anxiety disorder, unspecified; E66.01 Morbid (severe) obesity due to excess calories; Z68.37 Body mass index [BMI] 37.0-37.9, adult; Z79.4 Long term (current) use of insulin; Z79.899 Other long term (current) drug therapy; Z87.891 Personal history of nicotine dependence
CPT/HCPCS: 36415; 71045; 80048; 80053; 80061; 80076; 81001; 82274; 82570; 82607; 82728; 82746; 82962; 83036; 83540; 83550; 83735; 83880; 84300; 84439; 84443; 84484; 85025; 85027; 86850; 86900; 86901; 87086; 87088; 87186; 87426; 93005; 93306; 97802; 99251; 99285; J7050; A4216; G0463; J1940; J2916

== ENCOUNTER 2020-06-10 17:20 | Inpatient (IN) | payer MEDICARE, MEDICAID, SELFPAY ==
[2020-06-01 22:09] VITALS: BMI 37.1
[2020-06-10] VITALS (7 sets, daily range): BP systolic 114–130; BP diastolic 47–53; PULSE 64–76; RESP 14–20; TEMP 35.6–37.1; O2SAT 95–100; BMI 39.6; BMI 39.0
--- NOTE | 2020-06-10 17:43 | EKG12_ITS ---
Test Reason : SOB Blood Pressure : / mmHG Vent. Rate : 066 BPM Atrial Rate : 066 BPM P-R Int : 194 ms QRS Dur : 150 ms QT Int : 450 ms P-R-T Axes : 051 019 006 degrees QTc Int : 471 ms Normal sinus rhythm Right bundle branch block Abnormal ECG Confirmed by DEMAR YIN, LAVELLE ([id number]), web content editor BRYANT FELIZ ([id number]) on 06/14/2020 12:30:37 PM Referred By: FAYE
--- NOTE | 2020-06-10 17:45 | ED.VISSUMM ---
- ER Visit Summary Date of Service: 06/10/20 Chief Complaint: Shortness of breath History of Present Illness: The patient is a 65 F presenting with shortness of breath. Patient was sent in by her primary care provider due to shortness of breath. She has been gaining weight and has gained 6 pounds in the past week. She has shortness of breath with exertion. She denies chest pain. She was recently admitted for CHF and anemia. She did not receive a blood transfusion at that time. She has a history of anemia and has been worked up with no known source of blood loss. She has lightheadedness with no syncope. She states they have increased her Lasix and she continues to worsen. She has had a nonproductive cough. She denies fever. Denies known exposure to Covid. Physical Examination: Vitals are stable. Patient is afebrile. Alert no acute distress. HEENT exam is unremarkable. Neck is supple. Lungs are wheezing bilaterally. Heart is regular rate and rhythm. Abdomen is soft nontender nondistended. No guarding or rebound Extremities symmetric edema Skin is warm and dry. No focal neurologic deficit. Remainder of exam is unremarkable. Emergency Department Course and Treatment: EKG shows sinus rhythm, right bundle branch block. Chest x-ray read by myself and radiology shows mild pulmonary vascular congestion. CBC shows hemoglobin 7.7. Chemistries show glucose 72, BUN 28, creatinine 1.25. Troponin is negative. BNP 135. Patient was given Lasix IV. She states she feels worse than when she was admitted on June 01. Discussed with hospitalist for admission. Disposition: Admission Impression: CHF exacerbation, anemia This note was generated with [employer] dictation software. It may contain incorrect words, spelling, and punctuation that were not noted in review of the chart prior to signing ED Disposition - Plan for ED Patient: Referrals: tSeve Turcios MD [Primary Care Provider] -
--- NOTE | 2020-06-10 18:04 | RAD_ITS ---
STUDY: X-RAY CHEST REASON FOR EXAM: Female, 65 years old. Shortness of breath TECHNIQUE: Frontal view of the chest COMPARISON: 06/01/20 FINDINGS: There are mild congestive changes noted. The lungs are otherwise clear. There are no pleural effusions. There is no pneumothorax. The heart is enlarged, but stable in size. The visualized osseous structures are within normal limits. RAD/Chest 1 View (Portable) IMPRESSION: Mild pulmonary vascular congestion. Electronically Signed: Nigel Escalante MD at 18:28 EST Tel , Service support ,
[2020-06-10 18:19] LABS: Absolute Lymphocyte Count 1.04 X10^3/uL (0.83-4.51); Absolute Neutrophil Count 7.4 X10^3/uL (2.0-7.7); Basophil# 0.05 X10^3/uL; Basophil% 0.5 % (0-1); Eosinophils% 5.2 % (0-5); Hematocrit 28.3 % (37-47); Hemoglobin 7.7 g/dL (12.0-15.0); Lymphocyte # 1.04 X10^3/ul (4.0); Lymphocyte % 10.8 % (19-41); Mean Corp Hgb Conc 27.2 g/dL (32-36); Mean Corpuscular Hgb 24.1 pg (27.0-32.0); Mean Corpuscular Volume 88.7 fL (81-99); Mean Platelet Vol. 9.7 fl (6.2-12.0); Monocyte# 0.51 X10^3/uL; Monocyte% 5.3 % (0-10); NRBC Flagged by Analyzer 0 % (0-5); Neutrophil # 7.42 X10^3/uL (2.7-7.7); Neutrophil % 77.5 % (47-70); Platelet Count 450 K/mm3 (150-450); RBC Distribution Width CV 19.9 % (11.6-14.6); RBC Distribution Width SD 64.6 fl (35.1-43.9); Red Blood Count 3.19 M/mm3 (4.2-5.4); White Blood Count 9.6 K/mm3 (4.4-11.0)
[2020-06-10 18:28] LABS: BNP,B-Type NATRIURETIC PEPTIDE 135.4 pg/mL (0-100)
[2020-06-10 18:32] LABS: Anion Gap 6 (5-15); BUN 28 mg/dL (7-18); BUN/Creat Ratio 22.4 RATIO (10-20); Calcium,Total 8.8 mg/dL (8.5-10.1); Chloride 112 mmol/L (98-107); Creatinine, Serum 1.25 mg/dL (0.55-1.02); EST Glomerular Filtration Rate 46 mL/min (>60); Est Glom Filt Rate - Afr Amer 55 mL/min (>60); Estimated Creatinine Clearance 40.91 ml/min; Glucose 72 mg/dL (74-106); Potassium 3.9 mmol/L (3.5-5.1); Sodium Level 140 mmol/L (136-145)
[2020-06-10] MEDS: Furosemide 40 MG/4 ML Vial IV (19:22)
--- NOTE | 2020-06-10 19:38 | PCM.HP.STD ---
Problem List (1) CHF (congestive heart failure) Status: Acute Qualifiers: Heart failure type: diastolic Heart failure chronicity: unspecified Qualified Code(s): I50.30 - Unspecified diastolic (congestive) heart failure (2) Obesity (BMI 30-39.9) Status: Chronic (3) Rheumatoid aortitis Status: Chronic (4) Chronic back pain Status: Chronic Qualifiers: Back pain location: back pain in unspecified location Back pain laterality: unspecified Qualified Code(s): M54.9 - Dorsalgia, unspecified; G89.29 - Other chronic pain (5) FRANSISCA (acute kidney injury) Status: Acute (6) Diastolic dysfunction Status: Chronic (7) Right bundle branch block Status: Chronic (8) Obesity, morbid, BMI 40.0-49.9 Status: Chronic (9) Lupus Status: Chronic Qualifiers: Systemic lupus erythematosus type: unspecified Systemic lupus erythematosus organ involvement: unspecified Qualified Code(s): M32.9 - Systemic lupus erythematosus, unspecified (10) Hyperlipidemia Status: Chronic Qualifiers: Hyperlipidemia type: unspecified Qualified Code(s): E78.5 - Hyperlipidemia, unspecified (11) Diabetes mellitus, type II Status: Chronic Qualifiers: Diabetes mellitus mcc insulin use: with mcc use Diabetes mellitus complication status: with other specified complication Qualified Code(s): E11.69 - Type 2 diabetes mellitus with other specified complication; Z79.4 - group home (current) use of insulin History of Present Illness Date of Admission: 06/10/20 Chief Complaint: Fluid retention The patient is a 65 year old F with a significant history of heart failure with preserved ejection fraction; chronic back pain; chronic iron deficiency anemia who presents emergency department with a feeling of fluid retention. Her symptoms started about 3 weeks ago Also patient reports a weight gain of about 6 pounds in the last week. Further she has shortness of breath that worsens with exertion. She reports a nonproductive cough. She was at a hospital on 06/01/2020 and discharged on 06/03/2020 for acute congestive heart failure and acute kidney injury. Reportedly she did not notice an improvement during previous hospitalization. At home Lasix was adjusted from once daily to twice daily without any real relief of his symptoms. She went to see her PCP on the same day of presentation and she was instructed come to the emergency department. Past Medical History Past Medical History (Chronic Problems): Chronic Problems (Last Reviewed 06/10/20 @ 20:[address] Vijay Garcia MD) Obesity (BMI 30-39.9) (Chronic) Rheumatoid aortitis (Chronic) Chronic back pain (Chronic) Diastolic dysfunction (Chronic) Right bundle branch block (Chronic) Obesity, morbid, BMI 40.0-49.9 (Chronic) Lupus (Chronic) Hyperlipidemia (Chronic) Diabetes mellitus, type II (Chronic) Medical History: Medical History (Last Reviewed 06/11/20 @ 01:[address] Vijay Garcia MD) Diastolic dysfunction (Chronic) I51.9 Right bundle branch block (Chronic) I45.10 Obesity, morbid, BMI 40.0-49.9 (Chronic) E66.01 Lupus (Chronic) M32.9 Hyperlipidemia (Chronic) E78.5 Diabetes mellitus, type II (Chronic) E11.9 Anemia D64.9 Anxiety F41.9 Chronic pain G89.29 DDD (degenerative disc disease) Depression F32.9 Esophagitis K20.9 Fibromyalgia M79.7 GI bleed K92.2 Osteoarthritis M19.90 Peripheral neuropathy G62.9 Rheumatoid arteritis I00 Rheumatoid arthritis M06.9 Allergies No Known Allergies Allergy (Verified 06/10/20 17:29) Home Medications: Ambulatory Orders Medication Instructions Recorded Bupropion HCl [Bupropion Xl] 150 mg PO DAILY 04/17/19 Fluoxetine [Prozac] 60 mg PO DAILY 04/17/19 Gabapentin [Neurontin] 300 mg PO TID 04/17/19 Hydroxychloroquine [Plaquenil] 200 mg PO DAILYCM 04/17/19 Insulin Glargine,Hum.rec.anlog 60 unit SQ QHS 04/17/19 [Lantus Solostar] Metformin HCl [Metformin HCl ER] 500 mg PO BIDCM 04/17/19 Omeprazole 40 mg PO DAILY 04/17/19 Pravastatin [Pravachol] 20 mg PO QHS 04/17/19 Nystatin Powder [Mycostatin Powder] 1 applic TOPICAL TID bottle 04/20/19 Oxycodone Myristate [Xtampza ER] 18 mg PO BID 06/01/20 Sucralfate 1 gm PO BID 06/01/20 Potassium Chloride Oral Tablet 20 meq PO BIDCM #30 tab 06/03/20 [K-Dur] Furosemide [Lasix] 40 mg PO BID 06/10/20 Surgical History: Surgical History (Last Reviewed 06/10/20 @ 20:[address] Vijay Garcia MD) H/O repair of right rotator cuff Z98.890 History of carpal tunnel surgery Z98.890 History of left heart catheterization Onset Date: 08/01/07 Z98.890 History of lumbar fusion Z98.1 History of open reduction and internal fixation (ORIF) procedure Z98.890 right ankle History of total knee replacement Z96.659 History of tubal ligation Z98.51 Hx of cholecystectomy Z90.49 S/P insertion of spinal cord stimulator Z98.890 Surgical History: cholecystectomy, - - Back surgery (fusion, rods) x 2, R ankle surgery, R shoulder surgery, BL wrist CT release, spinal cord stimulator, right rotator cuff repair, total knee replacement, bilateral tubal ligation. 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 Vijay Garcia MD) Father Cancer Mother Hypertension History Items: Hypertension Paternal Family History: Family History (Last Reviewed 06/10/20 @ 20:[address] Vijay Garcia MD) Father Cancer Mother Hypertension History Items: Cancer - Father with history of pancreatic cancer. Review of Systems Constitutional: Denies: Chills, Fever, Weight Change HEENT: Denies: Head Aches, Sinus Congestion, Sinus Drainage Cardiovascular: Denies: Chest Pain, Palpitations Respiratory: Reports: Cough, Shortness of breath at rest. Denies: Sputum production Gastrointestinal: Denies: Abdominal Pain, Nausea, Vomiting Genitourinary: Denies: Dysuria Musculoskeletal: Denies: Joint Pain, Joint Tenderness Skin: Denies: Rash, Wounds Neurological: Denies: Numbness, Tingling, Focal weakness Psychiatric: Denies: Anxiety, Depression, Homicidal Ideations, Suicidal Ideations Hematologic/ Lymphatic: Denies: Easy Bruising, Easy Bleeding VTE Information - Inpt Only VTE Present on Admission: No VTE Mechan Device Prophylaxis: None VTE Pharm Prophylaxis ordered?: Yes Patient Problems: Active and Suspected Problems (Last Reviewed 06/10/20 @ 20:[address] Vijay Garcia MD) CHF (congestive heart failure) (Acute) FRANSISCA (acute kidney injury) (Acute) - Physical Exam Vitals/I&O's: Vital Signs Temp Pulse Resp BP Pulse Ox 98.3 F 66 16 114/53 L 97 06/10/20 19:30 06/10/20 19:30 06/10/20 19:30 06/10/20 19:30 06/10/20 19:30 Oxygen Delivery Method Room Air Weight: 107.955 kg Body Mass Index (BMI) 39.6 Finger Stick Blood Glucose 216 General: Alert, Oriented x3, Cooperative HEENT: Atraumatic, PERRLA, EOMI, Normocephalic Neck: Supple, No JVD, Negative Carotid Bruits Lungs: Wheezes Cardiovascular: Normal S1, Normal S2, No murmurs Abdomen: Bowel Sounds Present, Soft, Non Tender Extremities: No edema, Capillary Refill Less than 3 Seconds Skin: No rashes, No breakdown Musculoskeletal: No Tenderness to Palpation of Joints or Extremities Neurological: Cranial nerves II-XII grossly intact Psych/Mental Status: Normal Affect, Appropriate Laboratory Results 06/10/20 18:00: WBC 9.6, RBC 3.19 L, Hgb 7.7 L, Hct 28.3 L, MCV 88.7, MCH 24.1 L, MCHC 27.2 L, RDW Std Deviation 64.6 H, RDW Coeff of Vikram 19.9 H, Plt Count 450, MPV 9.7, Immature Gran % (Auto) 0.700, Neut % (Auto) 77.5 H, Lymph % (Auto) 10.8 L, Calvert % (Auto) 5.3, Eos % (Auto) 5.2 H, Baso % (Auto) 0.5, Absolute Neuts (auto) 7.4, Absolute Lymphs (auto) 1.04, Nucleated RBC % 0 06/10/20 18:00: Sodium 140, Potassium 3.9, Chloride 112 H, Carbon Dioxide 22.0, Anion Gap 6, BUN 28 H, Creatinine 1.25 H, Estim Creat Clear Calc 40.91, Est GFR (MDRD) Af Amer 55 L, Est GFR (MDRD) Non-Af 46 L, BUN/Creatinine Ratio 22.4 H, Glucose 72 L, Calcium 8.8, Troponin I < 0.015 06/10/20 18:00: B-Natriuretic Peptide 135.4 H Assessment/Plan All Active Problems (Last Reviewed 06/10/20 @ 20:[address] Vijay Garcia MD) CHF (congestive heart failure) (Acute) FRANSISCA (acute kidney injury) (Acute) The patient is a 65 year old F with a significant history of heart failure with preserved ejection fraction; chronic back pain; chronic iron deficiency anemia who presents emergency department with a feeling of fluid retention; shortness of breath which increases with exertion; weight gain and anemia. Acute heart failure with preserved ejection fraction Echocardiogram on 06/01/2020 showed ejection fraction of 70%. Diastolic function was indeterminate. Right ventricle external pressure was unable to be determined. Place on monitored bed on PCU Weight on admission to the floor; and then daily Strict I&O's Radiologist impression of chest x-ray: Mild pulmonary vascular congestion. Actual chest x-ray was independently interpreted. I agree with the latest interpretation. Emergency department labs reviewed BNP of 135.4 and hypochloremia. Received Lasix 40 mg IV push at emergency department. Lasix 40 mg IV push twice daily ordered. Continue home potassium supplementation. Trend blood pressure Yves wrap to bilateral lower extremities Fluid restriction of 1500 mls daily Cardiac diet ordered Wheezing May be secondary to heart failure or COPD. For now will order Lasix only. If wheezing persists with IV Lasix consider albuterol .. Acute on chronic anemia Hemoglobin presentation was 7.7. Patient received IV iron outpatient on the same day of presentation Reportedly work-up has not shown etiology of her iron deficiency anemia. Trend CBC. FRANSISCA Creatinine presentation was 1.25 Review of old record shows a creatinine baseline of around 0.8. Likely secondary to cardiorenal syndrome IV Lasix as above. Avoid nephrotoxins. Decreased home dose of gabapentin Trend BMP. Hypoglycemia with history of diabetes. Patient with hyoglycemia with blood glucose of 72 on presentation Hold all home hypoglycemic regimen. Accu-Chek every 4 hours. Hypoglycemic regimen ordered Morbid Obesity BMI: 39.6. Complicates care. Lifestyle modification recommended. Depression/anxiety Bupropion continued Fluoxetine continued Chronic pain/fibromyalgia Home oxycodone continued Gabapentin continued but adjusted because of FRANSISCA Lupus Plaquenil continued Hyperlipidemia Pravastatin continued GERD Sucralfate continued DVT prophylaxis: Subcutaneous Lovenox Inpatient E&M: 35866 Init Hosp L3
[2020-06-10 20:51] LABS: Bedside Glucose 59 mg/dL (70-110)
[2020-06-10] MEDS: Pravastatin 20 MG Tablet PO (21:48)
[2020-06-10] MEDS: Gabapentin 100 MG Capsule 200 MG PO (21:48)
[2020-06-10] MEDS: oxyCODONE CR 15 MG Tablet PO (21:51)
[2020-06-10] MEDS: MENTHOL 226.8 GM JAR 1 APPLIC TP (22:36)
[2020-06-11] VITALS (19 sets, daily range): BP systolic 120–149; BP diastolic 48–83; PULSE 63–80; RESP 16–18; TEMP 36.9–37.3; O2SAT 93–97
[2020-06-11] MEDS: Ipratropium/Albuterol Sulfate 3 ML AMPUL.NEB INHALATION ×5 (00:36→19:53)
[2020-06-11] MEDS: Psyllium 1 PACKET PO ×3 (00:50→21:30)
[2020-06-11 01:01] LABS: Bedside Glucose 139 mg/dL (70-110)
[2020-06-11 03:51] LABS: Bedside Glucose 79 mg/dL (70-110)
[2020-06-11] MEDS: Sucralfate 1 GM Tablet PO ×2 (06:26→16:26)
[2020-06-11] MEDS: Gabapentin 100 MG Capsule 200 MG PO ×3 (06:26→21:31)
[2020-06-11] MEDS: Nystatin Powder 15gm Bottle 1 APPLIC TOPICAL ×3 (06:26→21:30)
[2020-06-11 08:04] LABS: Absolute Lymphocyte Count 0.93 X10^3/uL (0.83-4.51); Absolute Neutrophil Count 5.6 X10^3/uL (2.0-7.7); Basophil# 0.04 X10^3/uL; Basophil% 0.5 % (0-1); Eosinophils% 6.4 % (0-5); Hematocrit 26.2 % (37-47); Hemoglobin 7.2 g/dL (12.0-15.0); Lymphocyte # 0.93 X10^3/ul (4.0); Lymphocyte % 11.9 % (19-41); Mean Corp Hgb Conc 27.5 g/dL (32-36); Mean Corpuscular Volume 87.3 fL (81-99); Monocyte# 0.67 X10^3/uL; Monocyte% 8.6 % (0-10); NRBC Flagged by Analyzer 0 % (0-5); Neutrophil # 5.62 X10^3/uL (2.7-7.7); Platelet Count 424 K/mm3 (150-450); RBC Distribution Width CV 19.9 % (11.6-14.6); RBC Distribution Width SD 62.8 fl (35.1-43.9); White Blood Count 7.8 K/mm3 (4.4-11.0)
--- NOTE | 2020-06-11 08:15 | PCM.PROGNOTE ---
Patient Problems: Active and Suspected Problems (Last Updated 06/11/20 @ 07:[address] Justus Walsh MD) CHF (congestive heart failure) (Acute) Subjective: Chief complaint: Follow-up after admission for acute on chronic diastolic CHF and acute on chronic anemia. Patient seen and examined. No acute events overnight. Today, she mentioned that her breathing is getting better. Legs are still swollen. Denied chest pain. She is afebrile, blood pressure and heart rate are stable, pulse ox is 95% on room air. - Physical Exam Vitals/I&O's: Vital Signs Temp Pulse Resp BP Pulse Ox 98.5 F 64 16 122/83 H 95 06/11/20 08:13 06/11/20 08:13 06/11/20 08:13 06/11/20 08:13 06/11/20 08:13 Oxygen Delivery Method Room Air Weight: 233 lb 0.458 oz Body Mass Index (BMI) 39.0 Finger Stick Blood Glucose 216 Intake and Output for Last 24 Hours 06/09/20 06/10/20 06/11/20 23:59 23:59 23:59 Intake Total 250 / 250 200 / 200 Output Total 601 / 601 350 / 350 Balance -351 / -351 -150 / -150 General: Alert, Oriented x3, Cooperative, No apparent distress HEENT: Atraumatic, PERRLA, EOMI, Normocephalic Oral: Moist Mucosa, No Gingival or Mucosal Lesions/ Ulcerations Neck: Supple, No JVD, Negative Carotid Bruits, Trachea Midline, Thyroid Normal Size and Texture Lungs: Clear to auscultation, No rhonchi, No wheeze, No rales, Diminished Cardiovascular: Regular rate, Regular Rhythm, Normal S1, Normal S2, PMI Normal Abdomen: Bowel Sounds Present, Soft, Non Tender, Non-Distended, No Hepato-splenomegaly Extremities: No clubbing, No cyanosis, Edema Skin: No rashes, No breakdown Lymphatic: No Cervical, Supraclavicular, or Inguinal Adenopathy Neurological: Cranial nerves II-XII grossly intact, Neuro grossly intact Psych/Mental Status: Normal Affect, Appropriate, Alert and oriented to time, place, person, mood and affect Laboratory Results 06/10/20 18:00: WBC 9.6, RBC 3.19 L, Hgb 7.7 L, Hct 28.3 L, MCV 88.7, MCH 24.1 L, MCHC 27.2 L, RDW Std Deviation 64.6 H, RDW Coeff of Vikram 19.9 H, Plt Count 450, MPV 9.7, Immature Gran % (Auto) 0.700, Neut % (Auto) 77.5 H, Lymph % (Auto) 10.8 L, Stevens % (Auto) 5.3, Eos % (Auto) 5.2 H, Baso % (Auto) 0.5, Absolute Neuts (auto) 7.4, Absolute Lymphs (auto) 1.04, Nucleated RBC % 0 06/10/20 18:00: Sodium 140, Potassium 3.9, Chloride 112 H, Carbon Dioxide 22.0, Anion Gap 6, BUN 28 H, Creatinine 1.25 H, Estim Creat Clear Calc 40.91, Est GFR (MDRD) Af Amer 55 L, Est GFR (MDRD) Non-Af 46 L, BUN/Creatinine Ratio 22.4 H, Glucose 72 L, Calcium 8.8, Troponin I < 0.015 06/10/20 18:00: B-Natriuretic Peptide 135.4 H 06/10/20 20:41: POC Glucose 59 L 06/10/20 23:32: POC Glucose 139 H 06/11/20 03:44: POC Glucose 79 06/11/20 06:35: WBC 7.8, RBC 3.00 L, Hgb 7.2 L, Hct 26.2 L, MCV 87.3, MCH 24.0 L, MCHC 27.5 L, RDW Std Deviation 62.8 H, RDW Coeff of Vikram 19.9 H, Plt Count 424, MPV 10.0, Immature Gran % (Auto) 0.600, Neut % (Auto) 72.0 H, Lymph % (Auto) 11.9 L, Stevens % (Auto) 8.6, Eos % (Auto) 6.4 H, Baso % (Auto) 0.5, Absolute Neuts (auto) 5.6, Absolute Lymphs (auto) 0.93, Nucleated RBC % 0 06/11/20 06:35: Sodium Pending, Potassium Pending, Chloride Pending, Carbon Dioxide Pending, Anion Gap Pending, BUN Pending, Creatinine Pending, Est GFR (MDRD) Af Amer Pending, Est GFR (MDRD) Non-Af Pending, BUN/Creatinine Ratio Pending, Glucose Pending, Calcium Pending Clinical Impression(s) from Imaging Studies Chest X-Ray 06/10/20 18:04 IMPRESSION: Mild pulmonary vascular congestion. Electronically Signed: Nigel Escalante MD at 18:28 EST Tel , Service support , Current Medications Acetaminophen (Acetaminophen 325 Mg Tablet) 650 mg PO Q6H PRN PRN PRN Reason: Pain Score 1-10/Temp > 100.7 F Albuterol Sulfate (Albuterol 2.5 Mg/3 Ml Vial.Neb.) 2.5 mg INHALATION Q2H PRN PRN PRN Reason: SOB/WHEEZING Albuterol/Ipratropium (Ipratropium/Albuterol Sulfate 3 Ml Ampul.Neb) 3 ml INHALATION Q4HWA.RT SAMARA Last Admin: 06/11/20 07:08 Dose: 3 ml Documented by: Bupropion HCl (Bupropion (Xl) 150 Mg Tablet.Xl) 150 mg PO DAILY SAMARA Dextrose (Dextrose 50%-Water 25 Gm/50 Ml Disp.Syrin) 0 gm IV X1 PRN; Protocol PRN Reason: Hypoglycemia Enoxaparin Sodium (Enoxaparin 40 Mg/0.4 Ml Syringe) 40 mg SC DAILY SAMARA Fluoxetine HCl (Fluoxetine 20 Mg Capsule) 60 mg PO DAILY SAMARA Furosemide (Furosemide 40 Mg/4 Ml Vial) 40 mg IV BID@1000,1800 SAMARA Furosemide (Furosemide 20 Mg/2 Ml Vial) 20 mg IV X1 ONE Stop: 06/11/20 08:15 Gabapentin (Gabapentin 100 Mg Capsule) 200 mg PO TID SAMARA Last Admin: 06/11/20 06:26 Dose: 200 mg Documented by: Glucagon (Glucagon 1 Mg/Ml Syringe) 1 mg IM .X1 PRN PRN Reason: Hypoglycemia Hydroxychloroquine Sulfate (Hydroxychloroquine 200 Mg Tablet) 200 mg PO DAILYCM SAMARA Melatonin (Melatonin 3 Mg Tablet) 3 mg PO QHS PRN PRN PRN Reason: INSOMNIA Menthol (Menthol 226.8 Gm Jar) 1 applic TP 4X/DAY PRN PRN PRN Reason: leg pain Last Admin: 06/10/20 22:36 Dose: 1 applic Documented by: Nutritional Formula (Lactose Free) (Glucerna Shake 120 Ml Liquid) 120 ml PO TIDCM [facility] Nystatin (Nystatin Powder 15gm Bottle) 1 applic TOPICAL TID [facility]; Protocol Last Admin: 06/11/20 06:26 Dose: 1 applic Documented by: Ondansetron HCl (Ondansetron 4 Mg/2 Ml Vial) 4 mg IV Q8H PRN PRN PRN Reason: NAUSEA/VOMITING Oxycodone HCl (Oxycodone Cr 15 Mg Tablet) 15 mg PO BID [facility] Last Admin: 06/10/20 21:51 Dose: 15 mg Documented by: Pantoprazole Sodium (Pantoprazole Sodium 40 Mg Tablet) 40 mg PO DAILY [facility] Potassium Chloride (Potassium Chloride Oral Tablet 20 Meq) 20 meq PO BIDCM [facility] Pravastatin Sodium (Pravastatin 20 Mg Tablet) 20 mg PO QHS [facility] Last Admin: 06/10/20 21:48 Dose: 20 mg Documented by: Psyllium Hydrophilic Mucilloid (Psyllium 1 Packet) 1 packet PO BID [facility] Last Admin: 06/11/20 00:50 Dose: 1 packet Documented by: Sodium Chloride (0.9% Saline Lock 10 Ml Syringe) 10 - 40 ml IV UD PRN PRN Reason: SALINE FLUSH Sucralfate (Sucralfate 1 Gm Tablet) 1 gm PO BID@0700,1600 [facility] Last Admin: 06/11/20 06:26 Dose: 1 gm Documented by: Medical Necessity - Tobacco Use Smoking Status: Former smoker Tobacco Use: Non-smoker Assessment/Plan All Active Problems (Last Updated 06/11/20 @ 07:[address] Justus Walsh MD) CHF (congestive heart failure) (Acute) This is a 65 years old female patient presented to the emergency room because of weight gain, edema and shortness of breath, found to have acute on chronic diastolic CHF as well as acute on chronic anemia. #1 acute on chronic diastolic CHF: She is on IV Lasix. EKG revealed normal sinus rhythm with RBBB which is chronic, no acute changes. Troponin was negative. Today's potassium is 3.2, creatinine is 1.13, improving. She had 2D echocardiogram on May, that showed ejection fraction 70%, i indeterminate diastolic dysfunction. Plan: Continue IV diuresis, replace potassium, repeat CBC and BMP tomorrow morning. #2 acute on chronic anemia: Iron deficiency anemia. Her baseline hemoglobin has been around 9 to 11 g/dL. Today's hemoglobin is 7.2 g/dL. No active bleeding. Plan: Transfuse 1 unit of packed RBCs, start iron supplement, repeat CBC tomorrow morning. #3 renal insufficiency: Not sure if this is acute or chronic. Her care has been fluctuating, but was up to 3.2 on April, and then came down to 1.1 on the same month. It was 1.3-1.6 during her last admission which was around 10 days ago. Today's creatinine is 1.13, close to her baseline recently. Plan to continue IV diuresis, monitor kidney function. #4 type 2 diabetes mellitus: Blood sugar has been on the lower side. Currently, she is only on sliding scale and Accu-Cheks. At home, she has been on Lantus 6 units nightly and Metformin twice daily. Both of on hold at this time. #5 rheumatoid arthritis/chronic back pain: Stable, continue Neurontin, Plaquenil and OxyContin. #6 hyperlipidemia: Stable, continue statins. #7 depression: Continue Wellbutrin and Prozac. #8 DVT prophylaxis: Subcu Lovenox. This note was generated with [employer] dictation software. It may contain incorrect words, spelling, and punctuation that were not noted in checking the note before signing. Inpatient E&M: 81965 Subs Hosp L2
[2020-06-11] MEDS: Glucerna Shake 120 ML LIQUID PO ×2 (08:17→11:03)
[2020-06-11] MEDS: Potassium Chloride Oral Tablet 20 MEQ PO (08:17)
[2020-06-11] MEDS: Enoxaparin 40 MG/0.4 ML Syringe SC (08:17)
[2020-06-11] MEDS: FLUoxetine 20 MG Capsule 60 MG PO (08:17)
[2020-06-11 08:18] LABS: Anion Gap 8 (5-15); BUN 25 mg/dL (7-18); BUN/Creat Ratio 22.1 RATIO (10-20); Calcium,Total 8.4 mg/dL (8.5-10.1); Chloride 109 mmol/L (98-107); Creatinine, Serum 1.13 mg/dL (0.55-1.02); EST Glomerular Filtration Rate 52 mL/min (>60); Est Glom Filt Rate - Afr Amer 62 mL/min (>60); Estimated Creatinine Clearance 45.26 ml/min; Glucose 113 mg/dL (74-106); Potassium 3.2 mmol/L (3.5-5.1); Sodium Level 141 mmol/L (136-145)
[2020-06-11] MEDS: oxyCODONE CR 15 MG Tablet PO ×2 (08:18→21:30)
[2020-06-11] MEDS: Pantoprazole Sodium 40 MG Tablet PO (08:18)
[2020-06-11] MEDS: Furosemide 40 MG/4 ML Vial IV ×2 (08:18→16:27)
[2020-06-11] MEDS: buPROPion (XL) 150 MG TABLET.XL PO (08:20)
[2020-06-11] MEDS: Hydroxychloroquine 200 MG Tablet PO (08:21)
[2020-06-11 08:41] LABS: Bedside Glucose 96 mg/dL (70-110)
[2020-06-11 08:55] LABS: International Normalized Ratio 1.2; Prothrombin Time (Protime)PT. 14.9 SECONDS (11.7-14.9)
[2020-06-11] MEDS: Furosemide 20 MG/2 ML VIAL IV (10:39)
[2020-06-11] MEDS: Insulin Lispro 100 UNIT/ML INSULN.PEN SC ×2 (11:04→21:31)
[2020-06-11] MEDS: Ferrous Sulfate 325 MG Tablet PO ×2 (11:04→16:26)
[2020-06-11 11:11] LABS: Bedside Glucose 151 mg/dL (70-110)
--- NOTE | 2020-06-11 13:01 | CM.UR ---
RN CM Assessment Patient is in isolation so called her instead of assessing face to face. Introduced role of RN CM to patient.? Patient is alert, oriented and able?to participate in RN CM Assessment. ?Care providers, pharmacy, and demographics verified. Presentation: Shortness of breath Admit Dx: CHF exacerbation Re-Admit: No Barriers/Issues: none PCP: Dr. Turcios Specialists: Dr. Sommers for pain. Also sees a casting technician at [facility] but can't remember her new providers name. Preferred Pharmacy: [facility] Insurance: [facility] Rx Benefit:? Yes under the [facility] ?LNOK: Mother, Seema and daughter Ludmila LW/HPOA: Yes, daughter. Noted not on file. Living Arrangements:? Lives in mobile home with her mother. 3 steps into home w/railing. States she has to use the railing. ADL?s: States she is usually independent/modified independent. Walks independent at home but uses cane in community. Transportation: Self, mother or daughter DME: [employer] [facility] H[facility]: [facility] SNF: [facility] Goal: Home, denies needs. DC PLAN: Home, no needs anticipated. Alerted patient that case management will remain available should any needs arise. Verb understanding. Ginger De La Cruz RN, CCM.
[2020-06-11] MEDS: Potassium Chloride Oral Tablet 20 MEQ 40 MEQ PO (16:26)
[2020-06-11 16:31] LABS: Bedside Glucose 138 mg/dL (70-110)
[2020-06-11] MEDS: Pravastatin 20 MG Tablet PO (21:31)
[2020-06-11 21:40] LABS: Bedside Glucose 166 mg/dL (70-110)
[2020-06-12] VITALS (9 sets, daily range): BP systolic 126–146; BP diastolic 59–66; PULSE 63–72; RESP 16–20; TEMP 36.7–36.9; O2SAT 94–96
[2020-06-12] MEDS: Ipratropium/Albuterol Sulfate 3 ML AMPUL.NEB INHALATION ×3 (03:04→10:29)
[2020-06-12 05:27] LABS: Absolute Lymphocyte Count 1.19 X10^3/uL (0.83-4.51); Absolute Neutrophil Count 6.8 X10^3/uL (2.0-7.7); Basophil# 0.04 X10^3/uL; Basophil% 0.4 % (0-1); Eosinophil# 0.44 X10^3/uL; Eosinophils% 4.7 % (0-5); Hemoglobin 8.4 g/dL (12.0-15.0); Lymphocyte # 1.19 X10^3/ul (4.0); Lymphocyte % 12.8 % (19-41); Mean Corpuscular Hgb 25.1 pg (27.0-32.0); Mean Corpuscular Volume 86.8 fL (81-99); Mean Platelet Vol. 9.9 fl (6.2-12.0); Monocyte# 0.75 X10^3/uL; Monocyte% 8.1 % (0-10); NRBC Flagged by Analyzer 0 % (0-5); Neutrophil % 73.2 % (47-70); Platelet Count 422 K/mm3 (150-450); RBC Distribution Width CV 19.1 % (11.6-14.6); RBC Distribution Width SD 59.5 fl (35.1-43.9); Red Blood Count 3.34 M/mm3 (4.2-5.4); White Blood Count 9.3 K/mm3 (4.4-11.0)
[2020-06-12 06:11] LABS: Anion Gap 7 (5-15); BUN 21 mg/dL (7-18); BUN/Creat Ratio 17.6 RATIO (10-20); Calcium,Total 8.5 mg/dL (8.5-10.1); Chloride 110 mmol/L (98-107); Creatinine, Serum 1.19 mg/dL (0.55-1.02); EST Glomerular Filtration Rate 49 mL/min (>60); Est Glom Filt Rate - Afr Amer 59 mL/min (>60); Estimated Creatinine Clearance 42.98 ml/min; Glucose 134 mg/dL (74-106); Potassium 3.3 mmol/L (3.5-5.1); Sodium Level 142 mmol/L (136-145)
[2020-06-12] MEDS: Gabapentin 100 MG Capsule 200 MG PO (06:30)
[2020-06-12] MEDS: Sucralfate 1 GM Tablet PO (06:30)
[2020-06-12 06:36] LABS: Bedside Glucose 115 mg/dL (70-110)
[2020-06-12] MEDS: FLUoxetine 20 MG Capsule 60 MG PO (08:00)
[2020-06-12] MEDS: Psyllium 1 PACKET PO (08:00)
[2020-06-12] MEDS: Enoxaparin 40 MG/0.4 ML Syringe SC (08:00)
[2020-06-12] MEDS: buPROPion (XL) 150 MG TABLET.XL PO (08:01)
[2020-06-12] MEDS: oxyCODONE CR 15 MG Tablet PO (08:01)
[2020-06-12] MEDS: Potassium Chloride Oral Tablet 20 MEQ 60 MEQ PO (08:01)
[2020-06-12] MEDS: Pantoprazole Sodium 40 MG Tablet PO (08:01)
[2020-06-12] MEDS: Hydroxychloroquine 200 MG Tablet PO (08:01)
[2020-06-12] MEDS: Furosemide 40 MG/4 ML Vial IV (08:02)
--- NOTE | 2020-06-12 10:23 | DCINST_ITS ---
- Discharge Diagnoses Current Active Problems: Current Active and Chronic Problems (Last Updated 06/11/20 @ 07:[address] Justus Walsh MD) Chronic back pain (Chronic) CHF (congestive heart failure) (Acute) Obesity (BMI 30-39.9) (Chronic) Diastolic dysfunction (Chronic) Right bundle branch block (Chronic) Obesity, morbid, BMI 40.0-49.9 (Chronic) Lupus (Chronic) Hyperlipidemia (Chronic) Diabetes mellitus, type II (Chronic) You will use the following diet at home:: Calorie/Carbohydrate Controlled (specify 1200, 1400, etc) - 1800 kelly., Cardiac Your food should be the consistency of: Regular Discharge Activity: Return to Normal Activity Weight Bearing Status: Weight bearing as tolerated Call your doctor if you observe: Fever of 101 or Higher, Shortness of breath, Dizziness, Fainting spells, Swelling in the ankles, Increased palpitations (irregular heartbeat), Uncontrolled pain Instructions: Heart Failure, Heart Failure: Tracking Your Weight, Using a Blood Sugar Log, How to Check Your Blood Sugar Allergies/Adverse Reactions: Allergies No Known Allergies Allergy (Verified 06/10/20 20:34) Medications to take at Discharge Bupropion HCl [Bupropion Xl] 150 mg PO DAILY 04/17/19 Fluoxetine [Prozac] 60 mg PO DAILY 04/17/19 Gabapentin [Neurontin] 300 mg PO TID 04/17/19 Hydroxychloroquine [Plaquenil] 200 mg PO DAILYCM 04/17/19 Metformin HCl [Metformin HCl ER] 500 mg PO BIDCM 04/17/19 Omeprazole 40 mg PO DAILY 04/17/19 Pravastatin [Pravachol] 20 mg PO QHS 04/17/19 Nystatin Powder [Mycostatin Powder] 1 applic TOPICAL TID bottle 04/20/19 Oxycodone Myristate [Xtampza ER] 18 mg PO BID 06/01/20 Sucralfate 1 gm PO BID 06/01/20 Potassium Chloride Oral Tablet [K-Dur] 20 meq PO BIDCM #30 tab 06/03/20 Furosemide [Lasix] 40 mg PO BID 06/10/20 Albuterol IH (ProAir) [Proair Hfa] 2 puff INHALATION Q6H PRN PRN #2 inhaler 06/12/20 Ferrous Sulfate 325 mg PO 1200,1700 #90 tab 06/12/20 Insulin Glargine,Hum.rec.anlog [Lantus Solostar] 40 unit SQ QHS #1 06/12/20 The following prescriptions were given: Ferrous Sulfate 325 mg PO 1200,1700 #90 tab Transmission Status: Pending to [id number] Insulin Glargine,Hum.rec.anlog [Lantus Solostar] 40 unit SQ QHS #1 Albuterol IH (ProAir) [Proair Hfa] 2 puff INHALATION Q6H PRN PRN #2 inhaler PRN Reason: Wheezing, shortness of breath Transmission Status: Pending to [id number] Primary Care Physician: Steve Turcios MD [Primary Care Provider] - Please follow up with your Primary Care Physician in: 1 week. Test Results: Test results from this visit will be discussed in further detail at your follow- up appointment, if applicable.
--- NOTE | 2020-06-12 10:49 | PCM.DC.SUM ---
Discharge Date and Diagnosis - Problem List Patient Problems: Active and Suspected Problems (Last Updated 06/11/20 @ 07:[address] Justus Walsh MD) CHF (congestive heart failure) (Acute) Date of Admission: 06/10/20 Date of Discharge: 06/12/20 - Primary Discharge Diagnosis Acute Problems: Active Problems (Last Updated 06/11/20 @ 07:[address] Justus Walsh MD) #1 acute on chronic diastolic CHF. #2 acute on chronic anemia, required blood transfusion. #3 renal insufficiency, unspecified. - Secondary Discharge Diagnosis Chronic Problems: Chronic Problems (Last Updated 06/11/20 @ 07:[address] Justus Walsh MD) Rheumatoid arthritis (Chronic) Chronic back pain (Chronic) Obesity (BMI 30-39.9) (Chronic) Diastolic dysfunction (Chronic) Right bundle branch block (Chronic) Obesity, morbid, BMI 40.0-49.9 (Chronic) Lupus (Chronic) Hyperlipidemia (Chronic) Diabetes mellitus, type II (Chronic) Hospital Course and Treatment Imaging Results: Clinical Impression(s) from Imaging Studies Chest X-Ray 06/10/20 18:04 IMPRESSION: Mild pulmonary vascular congestion. Electronically Signed: Nigel Escalante MD at 18:28 EST Tel , Service support , Operations: None Procedures: None Summary of Care Provided: Patient seen and examined on the day of discharge and appeared to be stable to be discharged home. Shortness of breath improved as well as edema. She complains of mild wheezing. She denies history of asthma or COPD. All over, she is feeling better. Her vital signs are stable, has been on room air. The patient is a 65 year old F presented to the emergency room because of shortness of breath and she was found to have acute on chronic diastolic CHF as well as acute on chronic anemia. A chest x-ray revealed mild pulmonary vascular congestion. Patient was found to have significant bilateral leg edema. Her EKG revealed normal sinus rhythm without RBBB which is chronic, no acute ischemic changes. Her troponin was negative. She was treated with IV Lasix for diuresis. She was not on beta-blockers or CUONG inhibitor's because of chronic kidney disease. She had 2D echocardiogram on June 02, 2020 that showed ejection fraction of 70% and indeterminate diastolic dysfunction. With IV diuresis, patient lost about 7 pounds, symptoms improved including shortness of breath and edema. She does have history of renal insufficiency which is not clear if this is acute on chronic. Her creatinine has been fluctuating, it was up to 3.2 on April 2019, came down to 1.1 on the same month and before admission for about 10 days, it was 1.3-1.6. During this hospital stay, her kidney function remained stable in spite of IV diuresis with Lasix. She was found to have acute on chronic anemia, iron deficiency. Her hemoglobin came down to 7.2 g/dL and her baseline has been around 9 to 11 g/dL. There was no evidence of active bleeding. She received 1 unit of packed RBCs and discharge hemoglobin was 8.4 g/dL. During this hospital stay, her Lantus was held and she was kept only on sliding scale. Her sugar has been below 150 mg/dL throughout the hospital stay while she is only on sliding scale. Patient takes Lantus of 60 units nightly and she informed me that her PCP changed the dosage recently to 50 units nightly. Upon discharge, I will decrease her Lantus to 40 units nightly, instructed to check her blood sugar at least in the morning and after each meal, keep blood sugar log and follow-up with PCP. Patient discharged home in a stable condition, discharged on Lasix 40 mg p.o. twice daily, started on iron supplement with ferrous sulfate 325 mg p.o. twice daily, started on proair inhaler as she has been mild wheezing during this hospital stay without history of asthma or COPD, patient will probably need lung function test as outpatient, recommended follow-up with PCP in 1 week. Patient Problems: Active and Suspected Problems (Last Updated 06/11/20 @ 07:[address] Justus Walsh MD) CHF (congestive heart failure) (Acute) - Physical Exam Vitals/I&O's: Vital Signs Temp Pulse Resp BP Pulse Ox 98.0 F 64 20 H 146/59 H 96 06/12/20 07:55 06/12/20 07:55 06/12/20 10:30 06/12/20 07:55 06/12/20 07:55 Oxygen Delivery Method Room Air Weight: 231 lb 14.821 oz Body Mass Index (BMI) 39.0 Finger Stick Blood Glucose 216 Intake and Output for Last 24 Hours 06/10/20 06/11/20 06/12/20 23:59 23:59 23:59 Intake Total 250 / 250 1050 / 1050 100 / 100 Output Total 601 / 601 1700 / 1700 400 / 400 Balance -351 / -351 -650 / -650 -300 / -300 General: Alert, Oriented x3, Cooperative, No apparent distress HEENT: Atraumatic, PERRLA, EOMI, Normocephalic Oral: Moist Mucosa, No Gingival or Mucosal Lesions/ Ulcerations Neck: Supple, No JVD, Negative Carotid Bruits, Trachea Midline, Thyroid Normal Size and Texture Lungs: Clear to auscultation, Normal air movement, No rhonchi, No wheeze, No rales, Diminished Cardiovascular: Regular rate, Regular Rhythm, Normal S1, Normal S2, PMI Normal Abdomen: Bowel Sounds Present, Soft, Non Tender, Non-Distended, No Hepato-splenomegaly, Obese Extremities: No clubbing, No cyanosis, Edema - Trace edema. Skin: No rashes, No breakdown Lymphatic: No Cervical, Supraclavicular, or Inguinal Adenopathy Neurological: Cranial nerves II-XII grossly intact, Neuro grossly intact Psych/Mental Status: Normal Affect, Appropriate Microbiology Past 72 Hours 06/11/20 00:45 Stool Enteric Bacteriology - Final Laboratory Results 06/11/20 08:30: Blood Type O POSITIVE, Antibody Screen NEGATIVE, Crossmatch See Detail 06/11/20 10:59: POC Glucose 151 H 06/11/20 16:24: POC Glucose 138 H 06/11/20 21:29: POC Glucose 166 H 06/12/20 04:45: WBC 9.3, RBC 3.34 L, Hgb 8.4 L, Hct 29.0 L, MCV 86.8, MCH 25.1 L, MCHC 29.0 L D, RDW Std Deviation 59.5 H, RDW Coeff of Vikram 19.1 H, Plt Count 422, MPV 9.9, Immature Gran % (Auto) 0.800, Neut % (Auto) 73.2 H, Lymph % (Auto) 12.8 L, [place] % (Auto) 8.1, Eos % (Auto) 4.7, Baso % (Auto) 0.4, Absolute Neuts (auto) 6.8, Absolute Lymphs (auto) 1.19, Nucleated RBC % 0 06/12/20 04:45: Sodium 142, Potassium 3.3 L, Chloride 110 H, Carbon Dioxide 25.0, Anion Gap 7, BUN 21 H, Creatinine 1.19 H, Estim Creat Clear Calc 42.98, Est GFR (MDRD) Af Amer 59 L, Est GFR (MDRD) Non-Af 49 L, BUN/Creatinine Ratio 17.6, Glucose 134 H, Calcium 8.5 06/12/20 06:32: POC Glucose 115 H Current Medications Acetaminophen (Acetaminophen 325 Mg Tablet) 650 mg PO Q6H PRN PRN PRN Reason: Pain Score 1-10/Temp > 100.7 F Albuterol Sulfate (Albuterol 2.5 Mg/3 Ml Vial.Neb.) 2.5 mg INHALATION Q2H PRN PRN PRN Reason: SOB/WHEEZING Albuterol/Ipratropium (Ipratropium/Albuterol Sulfate 3 Ml Ampul.Neb) 3 ml INHALATION Q4HWA.RT [facility] Last Admin: 06/12/20 10:29 Dose: 3 ml Documented by: Bupropion HCl (Bupropion (Xl) 150 Mg Tablet.Xl) 150 mg PO DAILY [facility] Last Admin: 06/12/20 08:01 Dose: 150 mg Documented by: Dextrose (Dextrose 50%-Water 25 Gm/50 Ml Disp.Syrin) 0 gm IV X1 PRN; Protocol PRN Reason: Hypoglycemia Enoxaparin Sodium (Enoxaparin 40 Mg/0.4 Ml Syringe) 40 mg SC DAILY [facility] Last Admin: 06/12/20 08:00 Dose: 40 mg Documented by: Ferrous Sulfate (Ferrous Sulfate 325 Mg Tablet) 325 mg PO 1200,1700 [facility] Last Admin: 06/11/20 16:26 Dose: 325 mg Documented by: Fluoxetine HCl (Fluoxetine 20 Mg Capsule) 60 mg PO DAILY [facility] Last Admin: 06/12/20 08:00 Dose: 60 mg Documented by: Furosemide (Furosemide 40 Mg/4 Ml Vial) 40 mg IV BID@1000,1800 [facility] Last Admin: 06/12/20 08:02 Dose: 40 mg Documented by: Gabapentin (Gabapentin 100 Mg Capsule) 200 mg PO TID [facility] Last Admin: 06/12/20 06:30 Dose: 200 mg Documented by: Glucagon (Glucagon 1 Mg/Ml Syringe) 1 mg IM .X1 PRN PRN Reason: Hypoglycemia Hydroxychloroquine Sulfate (Hydroxychloroquine 200 Mg Tablet) 200 mg PO DAILYCM [facility] Last Admin: 06/12/20 08:01 Dose: 200 mg Documented by: Insulin Human Lispro (Insulin Lispro 100 Unit/Ml Insuln.Pen) 0 unit SC ACHS [facility]; Protocol Last Admin: 06/12/20 06:33 Dose: Not Given Documented by: Melatonin (Melatonin 3 Mg Tablet) 3 mg PO QHS PRN PRN PRN Reason: INSOMNIA Menthol (Menthol 226.8 Gm Jar) 1 applic TP 4X/DAY PRN PRN PRN Reason: leg pain Last Admin: 06/10/20 22:36 Dose: 1 applic Documented by: Nutritional Formula (Lactose Free) (Glucerna Shake 120 Ml Liquid) 120 ml PO TIDCM [facility] Last Admin: 06/12/20 08:02 Dose: Not Given Documented by: Nystatin (Nystatin Powder 15gm Bottle) 1 applic TOPICAL TID [facility]; Protocol Last Admin: 06/12/20 06:31 Dose: Not Given Documented by: Ondansetron HCl (Ondansetron 4 Mg/2 Ml Vial) 4 mg IV Q8H PRN PRN PRN Reason: NAUSEA/VOMITING Oxycodone HCl (Oxycodone Cr 15 Mg Tablet) 15 mg PO BID [facility] Last Admin: 06/12/20 08:01 Dose: 15 mg Documented by: Pantoprazole Sodium (Pantoprazole Sodium 40 Mg Tablet) 40 mg PO DAILY [facility] Last Admin: 06/12/20 08:01 Dose: 40 mg Documented by: Potassium Chloride (Potassium Chloride Oral Tablet 20 Meq) [facility] Admin: 06/11/20 16:26 Dose: 40 meq Documented by: Pravastatin Sodium (Pravastatin 20 Mg Tablet) 20 mg PO QHS [facility] Last Admin: 06/11/20 21:31 Dose: 20 mg Documented by: Psyllium Hydrophilic Mucilloid (Psyllium 1 Packet) 1 packet PO BID [facility] Last Admin: 06/12/20 08:00 Dose: 1 packet Documented by: Sodium Chloride (0.9% Saline Lock 10 Ml Syringe) 10 - 40 ml IV UD PRN PRN Reason: SALINE FLUSH Sucralfate (Sucralfate 1 Gm Tablet) 1 gm PO BID@0700,1600 [facility] Last Admin: 06/12/20 06:30 Dose: 1 gm Documented by: Discharge Activity: Return to Normal Activity Weight Bearing Status: Weight bearing as tolerated Call your doctor if you observe: Fever of 101 or Higher, Shortness of breath, Dizziness, Fainting spells, Swelling in the ankles, Increased palpitations (irregular heartbeat), Uncontrolled pain Home Medications: Medications to take at Discharge Bupropion HCl [Bupropion Xl] 150 mg PO DAILY 04/17/19 Fluoxetine [Prozac] 60 mg PO DAILY 04/17/19 Gabapentin [Neurontin] 300 mg PO TID 04/17/19 Hydroxychloroquine [Plaquenil] 200 mg PO DAILYCM 04/17/19 Metformin HCl [Metformin HCl ER] 500 mg PO BIDCM 04/17/19 Omeprazole 40 mg PO DAILY 04/17/19 Pravastatin [Pravachol] 20 mg PO QHS 04/17/19 Nystatin Powder [Mycostatin Powder] 1 applic TOPICAL TID bottle 04/20/19 Oxycodone Myristate [Xtampza ER] 18 mg PO BID 06/01/20 Sucralfate 1 gm PO BID 06/01/20 Potassium Chloride Oral Tablet [K-Dur] 20 meq PO BIDCM #30 tab 06/03/20 Furosemide [Lasix] 40 mg PO BID 06/10/20 Albuterol IH (ProAir) [Proair Hfa] 2 puff INHALATION Q6H PRN PRN #2 inhaler 06/12/20 Ferrous Sulfate 325 mg PO 1200,1700 #90 tab 06/12/20 Insulin Glargine,Hum.rec.anlog [Lantus Solostar] 40 unit SQ QHS #1 06/12/20 Following Prescriptions Were Given to Patient: Ferrous Sulfate 325 mg PO 1200,1700 #90 tab Transmission Status: [id number] Insulin Glargine,Hum.rec.anlog [Lantus Solostar] 40 unit SQ QHS #1 Albuterol IH (ProAir) [Proair Hfa] 2 puff INHALATION Q6H PRN PRN #2 inhaler PRN Reason: Wheezing, shortness of breath Transmission Status: Received by [facility] Primary Care Physician: Steve Turcios MD [Primary Care Provider] - Please follow up with your Primary Care Physician in: 1 week. Patient Instructions: Using a Blood Sugar Log, Heart Failure: Tracking Your Weight, How to Check Your Blood Sugar, Heart Failure Disposition: Home Minutes spent on discharge:: 32 Patient Condition:: Stable Medical Necessity - Tobacco Use Smoking Status: Former smoker Tobacco Use: Non-smoker Meaningful Use Info Meaningful Use Diagnoses (Choose all that apply): CHF - CHF CUONG/ARB ordered at discharge?: No Reason CUONG/ARB not ordered?: Worsening renal disease Documented LVEF (%): 70 Inpatient E&M: 34282 Disch Hosp
[2020-06-12] MEDS: Potassium Chloride Oral Tablet 20 MEQ 40 MEQ PO (11:28)
[2020-06-12] MEDS: Ferrous Sulfate 325 MG Tablet PO (11:29)
[2020-06-12] MEDS: Insulin Lispro 100 UNIT/ML INSULN.PEN SC (11:36)
[2020-06-12 11:41] LABS: Bedside Glucose 166 mg/dL (70-110)
--- NOTE | 2020-06-13 15:16 | CASEMGMT ---
RN CM Discharge F/U Phone Call LACE: 11 Strata: 3 Discharge date: 06/12/20 Call date: 06/13/20 Call time: 1516 Attempted to reach pt without success at this time, message left for pt to call this RN CM back if/when able. S[place]en RN CM Admission dx: Acute on chronic heart failure w/ preserved EF
== END 2020-06-12 12:11 | disposition home or self-care (01) | DRG 293 ==
LOC: ED 18:42 → PCU 20:23
PROVIDERS: Admitting Provider Hospitalist; Emergency Provider Emergency Medicine; PCP Family Medicine; Visit Provider Hospitalist
DX: I11.0 Hypertensive heart disease with heart failure (principal); I50.33 Acute on chronic diastolic (congestive) heart failure; N28.9 Disorder of kidney and ureter, unspecified; D50.9 Iron deficiency anemia, unspecified; E87.8 Other disorders of electrolyte and fluid balance, not elsewhere classified; E11.42 Type 2 diabetes mellitus with diabetic polyneuropathy; E11.649 Type 2 diabetes mellitus with hypoglycemia without coma; M32.9 Systemic lupus erythematosus, unspecified; E78.5 Hyperlipidemia, unspecified; M79.7 Fibromyalgia; M54.9 Dorsalgia, unspecified; G89.29 Other chronic pain; K21.9 Gastro-esophageal reflux disease without esophagitis; F32.9 Major depressive disorder, single episode, unspecified; F41.9 Anxiety disorder, unspecified; E66.01 Morbid (severe) obesity due to excess calories; Z68.39 Body mass index [BMI] 39.0-39.9, adult; Z79.4 Long term (current) use of insulin; Z79.899 Other long term (current) drug therapy; Z87.891 Personal history of nicotine dependence
CPT/HCPCS: 36415; 71045; 80048; 82962; 83880; 84484; 85025; 85610; 86850; 86900; 86901; 86920; 86922; 87506; 93005; 94640; 97802; 99284; J7040; P9016; A4216; J1940

== ENCOUNTER → 2020-08-03 17:04 | Outpatient (CLI) | payer MEDICARE, MEDICAID, SELFPAY ==
[2020-06-10 20:26] VITALS: BMI 39.0
[2020-08-03 17:43] LABS: Amphetamine Urine VISTA NEGATIVE (<1000 ng/mL); Barbiturate Urine VISTA POSITIVE (< 200 ng/mL); Benzodiazepine Urine VISTA NEGATIVE (< 200 ng/mL); Cocaine Urine VISTA NEGATIVE (< 300 ng/mL); Ecstacy Urine VISTA POSITIVE (< 500 ng/mL); Methadone Urine VISTA NEGATIVE (< 300 ng/mL); PCP Urine VISTA NEGATIVE (< 25 ng/mL); THC Urine VISTA NEGATIVE (< 50 ng/mL); Vista UDS pH Range 6
== END ==
PROVIDERS: PCP Family Medicine; Referring Provider Anesthesiology Pain Medicine; Visit Provider Anesthesiology Pain Medicine
DX: F11.20 Opioid dependence, uncomplicated (principal)
CPT/HCPCS: 80307

== ENCOUNTER → 2020-09-29 | Outpatient (CLI) | payer MEDICARE, MEDICAID, SELFPAY ==
[2020-06-10 20:26] VITALS: BMI 39.0
--- NOTE | 2020-09-29 | FLU_PTH ---
PATIENT: CORINNA DYE LOC: [facility] U#:[id number] AGE/SX: 65/F ROOM: RE09/29/[address]: Dr. Darion Snow MD : 1955 BED: DIS: 09/29/2020 SPEC #: [id number] RECD: 09/29/20 17:47 STATUS: NICKY REJaved #: [id number] NARDA: 09/29/20 00:[address]: Darion Snow DEPT: CYTOLOGY RECD BY: Chrissy Vázquez ENTERED: 09/30/20 09:00 SP TYPE: Fluid OTHR DR: Dr. Steve Turcios MD Tissues: Parotid gland, NOS Procedures: Special Stain Group II Surgery Specimen Level IV Cytospin Fluid HEADER OPERATION: Fine needle aspiration right parotid mass PRE-OP DIAGNOSIS: Right parotid mass TISSUE SUBMITTED: Right parotid mass FNA DIAGNOSIS CYTOLOGY Right parotid mass, FNA (cytospin and cell block): Consistent with pleomorphic adenoma. See comment. SJ:kevin 10/03/2020 COMMENT Correlation with clinical findings and appropriate follow up are necessary. CYTOLOGY STUDY Slides are reviewed. CYTOLOGY GROSS Received is 35 ml of light pink Cytolyt solution with particles labeled with the patient's name and and designated per the requisition as right parotid mass. Submitted for cytology preparation including cell block. / kevin 09/30/2020 TC:1 CPT: 81538, 78474
== END | disposition home or self-care (01) ==
LOC: LABSPEC 09-30 08:28
PROVIDERS: PCP Family Medicine; Referring Provider Otolaryngology; Visit Provider Otolaryngology
DX: R22.0 Localized swelling, mass and lump, head (principal)
CPT/HCPCS: 88108; 88305; 88313

== ENCOUNTER 2020-10-27 16:00 | Outpatient (RCR) | payer MEDICARE, MEDICAID, SELFPAY ==
[2020-06-10 20:26] VITALS: BMI 39.0
--- NOTE | 2020-10-06 18:12 | HP.PTEVAL ---
Patient's Visit Information CORINNA DYE is a 65 year old F referred to Physical Therapy by Dr. Мария Sommers MD with a diagnosis of BACK PAIN,LEG PAIN. Date of Evaluation: 10/06/20 Physical Therapist: Roby Plaza, PT, Cert MDT, OCS - Visit Plan Frequency: 2x /Week Duration: 4 Weeks Plan: PT INTERVETIONS AQUATIC THERAPY FOR GRADED LUMBAR ROM,DLS ,LE STRENGTHENING AND FLEXABLITY - Subjective This 65 y/o female presents to physical therapy with BACK PAIN AND LEG PAIN. This patient has had lumbar surgery fusion 15 years anterior approach then 2nd 1 month later posterior approach. Patient symptoms never got better with pain lumbar and weakness in legs L>R. Patient has had several epidural injections and spinal stimulator for pain . Aggravating factors walking, standing, unable to lift or bend. Affects ability to do any housework and ADLS' without pain. Alleviating factors rest and sitting. Patient has paresthesia in feet from being diabetic. Coughing/sneezing -> Bowel/bladder-. Patient use QC for balance and and pain unable to walk < 5mins and stand < 5 mins. Patient pain affects sleeping. Patient pain affects QOL and function with tasks around the home. MEDS: pain MEDS .Patient goals to decrease pain lumbar and weakness in legs thus get stronger. COMORBITIES: LEFT THR, lupus, anemia decrease iron, Anxiety ,CRI STAGE3, hyperlipidemia fibromyalgia. SOCAIL: . VOCATION: - Pain Bilateral Back Pain Intensity (Out of 10): 10 Pain Intensity Range: 10 - Objective POSTURE: mild forward posture ,hips/knees flexed. NEURO: c/o paresthesia/tingling due to DM, reflexes L3-4,L4-5,L5-S1 1/3. SYMMTRIES: align. GAIT: ambulates with SBQC 3 point antalgic gait mild forward posture. MMT: quads/hams 4-/5 ,hip flexion 3+/5, 4-/5 ankle. BALANCE: good - with QC - Special Tests L/S Slump test left side: Positive L/S Slump test right side: Positive L/S Left Straight Leg Raise: Positive L/S Right Straight Leg Raise: Negative - Goals Goal 1:: Patient to be I with Aquatic therapy Goal Time Frame: 4-6 Weeks Goal 2:: Patient improve quads/hams 4/5,hip strength 4-/5 to improve function and gait. Goal Time Frame: 4-6 Weeks Goal 3:: Patient to decrease LBP by 40 % r > to improve function Goal Time Frame: 4-6 Weeks Goal 4:: Tciv3rao to be able to walk or stand > 5min to improve ADLS' Goal Time Frame: 4-6 Weeks Goal 5:: Patient to improve LUMBAR ROM for function of recovery Goal Time Frame: 4-6 Weeks Goal 6:: Patient to improve back owestry score by 5 points or > to improve QOL. Goal Time Frame: 4-6 Weeks - Rehabilitation Potential Physical Therapy Diagnosis: This patient has symmetrical lumbar pain and weakness in legs with h/o lumbar fusion ~ 15 years ago x2 with decrease gait, balance and function and need QC thus will benefit from skilled PT Rehabilitation Potential: Fair - Anticipated Interventions Patient/Client Instruction: Educate patient on: Condition, Plan of Care For the Purpose of:: To decrease pain, To increase ROM, To improve muscle performance and motor function, To increase tolerance to activity/condition/position, To improve performance and independence with ADL's, To improve health of tissue, To decrease soft tissue restriction, To increase flexibility/ROM, To reduce risk of recurrence, To improve ability to perform tasks related to life management, To improve tolerance to ADL's Therapeutic Exercise to Include: Strength training, Endurance training, Balance training, Postural training, In an aquatic setting, Active ROM, Dynamic Lumbar Stabilization For the Purpose of:: To decrease pain, To increase ROM, To improve muscle performance and motor function, To improve ability to perform ADL's, To increase tolerance to activity/condition/position, To improve ability of physical actions for home/community/work/leisure, To improve gait and locomotor functions, To improve health of tissue, To decrease soft tissue restriction, To increase flexibility/ROM, To reduce risk of recurrence, To improve ability to perform tasks related to life management Thank you for the opportunity to evaluate your patient. For Medicare and Medicare HMO plans, please review the plan of care and approve it. It will need to be FAXED BACK to us at [phone] for Medicare purposes. For Medicare only, by signing this I certify the plan of care. Please let me know if there are questions or concerns regarding this plan of care. Physician Signature: Date:
--- NOTE | 2021-01-12 16:53 | HP.PT.NRP ---
CORINNA DYE was seen in my office for initial evaluation on 10/06/20. The following Plan of Care was established for this patient: Initial Frequency: 2x /Week Initial Duration: 4 Weeks Patient/Client Instruction: Educate patient on: Condition, Plan of Care For the Purpose of:: To decrease pain, To increase ROM, To improve muscle performance and motor function, To increase tolerance to activity/condition/position, To improve performance and independence with ADL's, To improve health of tissue, To decrease soft tissue restriction, To increase flexibility/ROM, To reduce risk of recurrence, To improve ability to perform tasks related to life management, To improve tolerance to ADL's Therapeutic Exercise to Include: Strength training, Endurance training, Balance training, Postural training, In an aquatic setting, Active ROM, Dynamic Lumbar Stabilization For the Purpose of:: To decrease pain, To increase ROM, To improve muscle performance and motor function, To improve ability to perform ADL's, To increase tolerance to activity/condition/position, To improve ability of physical actions for home/community/work/leisure, To improve gait and locomotor functions, To improve health of tissue, To decrease soft tissue restriction, To increase flexibility/ROM, To reduce risk of recurrence, To improve ability to perform tasks related to life management This patient was last seen in our office . Pertinent comments regarding their Physical therapy will appear below: This patient was seen for PT for Back pain. PT focused on Aquatic therapy At this point I will be discontinuing this patient from physical therapy. I would be happy to see this patient again in the future if found appropriate by the physician. Thank you! Roby Plaza, PT, Cert MDT, OCS Balance/Gait/Functional tests - Balance/Special Test Scores Oswestry Low Back Score: 10
== END 2020-10-27 19:00 | disposition home or self-care (01) ==
LOC: PT 16:00
PROVIDERS: PCP Family Medicine; Referring Provider Anesthesiology Pain Medicine; Visit Provider Anesthesiology Pain Medicine
DX: M54.9 Dorsalgia, unspecified (principal); M79.606 Pain in leg, unspecified
CPT/HCPCS: 97113; 97162

== ENCOUNTER 2020-11-04 12:55 | Observation (INO) | payer MEDICARE, SELFPAY ==
[2020-06-10 20:26] VITALS: BMI 39.0
--- NOTE | 2020-10-31 10:50 | EKG12_ITS ---
Test Reason : PRE-OP Blood Pressure : / mmHG Vent. Rate : 070 BPM Atrial Rate : 070 BPM P-R Int : 192 ms QRS Dur : 136 ms QT Int : 422 ms P-R-T Axes : 071 040 051 degrees QTc Int : 455 ms Normal sinus rhythm Right bundle branch block Abnormal ECG Confirmed by DEMAR YIN, LAVELLE ([id number]), editor school photograph BRYANT FELIZ ([id number]) on 11/01/2020 10:33:29 AM Referred By: Darion Snow Confirmed By:LAVELLE BENZ MD
[2020-10-31 12:21] LABS: Absolute Lymphocyte Count 1.43 X10^3/uL (0.83-4.51); Absolute Neutrophil Count 7.9 X10^3/uL (2.0-7.7); Basophil# 0.07 X10^3/uL; Basophil% 0.6 % (0-1); Eosinophils% 6.5 % (0-5); Hematocrit 35.1 % (37-47); Hemoglobin 10.3 g/dL (12.0-15.0); Lymphocyte # 1.43 X10^3/ul (0.83-4.51); Lymphocyte % 13.3 % (19-41); Mean Corp Hgb Conc 29.3 g/dL (32-36); Mean Corpuscular Hgb 26.3 pg (27.0-32.0); Mean Corpuscular Volume 89.5 fL (81-99); Mean Platelet Vol. 10.5 fl (6.2-12.0); Monocyte# 0.56 X10^3/uL; Monocyte% 5.2 % (0-10); NRBC Flagged by Analyzer 0 % (0-5); Neutrophil % 73.3 % (47-70); Platelet Count 280 K/mm3 (150-450); RBC Distribution Width CV 15.7 % (11.6-14.6); Red Blood Count 3.92 M/mm3 (4.2-5.4); White Blood Count 10.8 K/mm3 (4.4-11.0)
[2020-10-31 12:44] LABS: Hemoglobin A1c 5.5 % (3.8-5.6)
[2020-10-31 13:06] LABS: Anion Gap 9 (5-15); BUN 24 mg/dL (7-18); BUN/Creat Ratio 16.2 RATIO (10-20); Calcium,Total 9.2 mg/dL (8.5-10.1); Chloride 107 mmol/L (98-107); Creatinine, Serum 1.48 mg/dL (0.55-1.02); EST Glomerular Filtration Rate 38 mL/min (>60); Est Glom Filt Rate - Afr Amer 46 mL/min (>60); Glucose 72 mg/dL (74-106); Potassium 4.2 mmol/L (3.5-5.1); Sodium Level 139 mmol/L (136-145)
[2020-11-04] VITALS (8 sets, daily range): BP systolic 120–136; BP diastolic 44–56; PULSE 62–72; RESP 16–18; TEMP 35.5–37.1; O2SAT 91–98; BMI 35.0
--- NOTE | 2020-11-04 | PAR_PTH ---
PATIENT: CORINNA DYE LOC: [facility] U#:[id number] AGE/SX: 65/F ROOM: [facility] RE11/04/[address]: Dr. Darion Snow MD : 1955 BED: 1 DIS: 11/05/2020 SPEC #: [id number] RECD: 11/04/20 12:30 STATUS: NICKY REJaved #: [id number] NARDA: 11/04/20 00:[address]: Darion Snow DEPT: SURGICAL PATHOLOGY RECD BY: Sujey Garcia ENTERED: 11/04/20 13:30 SP TYPE: PAROTID OTHR DR: Dr. Steve Turcios MD Tissues: Parotid gland, NOS Procedures: Frozen Section (charge) Surgery Specimen Level IV HEADER OPERATION: Parotidectomy PRE-OP DIAGNOSIS: Benign neoplasm of right parotid gland TISSUE SUBMITTED: Right parotid, frozen section FROZEN SECTION DIAGNOSIS Right parotid, parotidectomy: Consistent with pleomorphic adenoma. AM:kevin 11/04/2020 MICROSCOPIC DIAGNOSIS Right Parotid gland, parotidectomy: Pleomorphic adenoma. Six out of six lymph nodes with no pathologic change. COMMENT Immunohistochemistry ([id number]) supports the diagnosis. Reference is made to the patient?s previous FNA of right parotid mass in which changes of pleomorphic adenoma were identified. Case has been reviewed in consultation with Dr. Maldonado who concurs with the above diagnosis. IDC:SJ MICROSCOPIC DESCRIPTION Slides are reviewed. GROSS DESCRIPTION Received fresh for frozen section consultation labeled with the patient's name is a specimen designated right parotid. The specimen consists of a parotid gland measuring 5.5 x 4 x 2 cm and weighing 17.2 gm. The specimen is inked and serially sectioned to reveal an ovoid gelatinous light martinez mass measuring 2.2 cm in greatest dimension. A district representative section of the mass is submitted for frozen section consultation (cassette 1). The remainder of the specimen is submitted in its entirety in cassettes 2-11. Cassettes 2-4 contain the mass. / AM:kevin 11/04/20 TC:1 CPT: 37322, 44906
--- NOTE | 2020-11-04 | IMM_PTH ---
PATIENT: CORINNA DYE LOC: [facility] U#:[id number] AGE/SX: 65/F ROOM: [facility] RE11/04/[address]: Dr. Darion Snow MD : 1955 BED: 1 DIS: 11/05/2020 SPEC #: [id number] RECD: 11/07/20 14:39 STATUS: SOUT REQ #: [id number] NARDA: 11/04/20 00:[address]: Darion Snow DEPT: IMMUNOHISTOCHEMISTRY RECD BY: Sujey Garcia ENTERED: 11/07/20 14:41 SP TYPE: IMMUNO OTHR DR: Dr. Steve Turcios MD Tissues: Parotid gland, NOS Procedures: SMA (add) CALPONIN-1 (add) CEA (add) CK5-6 (add) CK7 (add) ARTURO (add) KI-67 (add) MACRO (add) P53 (add) Vimentin (add) 34BE12 (add) SMM (add) Pankeratin (initial) GATA3 (add) S-100 (add) PHYSICIAN & [address] [address] SPECIMEN INFORMATION: Tissue Source: Right parotid Clinical Info: Benign neoplasm of right parotid gland Specimen Number: [id number] #2 CPT code: 64719, 44952 x14 METHODOLOGY: Deparaffinized sections of prefer/formalin-fixed tissue or PAP/DQ stained slides are incubated with monoclonal/polyclonal antibodies/oligonucleotide probes. Localization is made via biotin free immunoperoxidase method. Appropriate controls are performed and reacted as expected. Results on target cell population are indicated in the following table: RESULTS: ANTIBODY / CLONE RESULT Block 2 AE1-3 (AE1/AE3/PCK26) positive CK7 (OV-TL12/30) positive GATA3 (L50-823) negative Vimentin (V9) positive 34BE12 (34BE12) positive Calponin-1 (OH758E) positive Macro (HAM-56) negative Actin (1A4) positive Myosin (simms1) negative S-100 (4C4.9) positive CK5-6 (D5 & 1684) positive ARTURO (E29) positive, focal CEA (11-7/TF-3HB-1) negative P53 (DO-7) positive, rare Ki-67 (30-9) positive, low These tests were developed and their performance characteristics determined by [facility]. They may not have been cleared or approved by the U.S. Food and Drug Administration. The FDA has determined that such clearance or approval is not necessary. The above immunohistochemical/dualISH markers are ordered and reviewed by the Pathologist. INTERPRETATION: Right parotid, parotidectomy: Consistent with pleomorphic adenoma. AM:kevin 11/08/2020 Case has been reviewed in consultation with Dr. Maldonado who concurs with the above diagnosis. IDC:SJ
[2020-11-04] MEDS: Lactated Ringers 1,000 ML 100 ML IV ×2 (09:10→20:39)
[2020-11-04 09:55] LABS: Bedside Glucose 125 mg/dL (70-110)
[2020-11-04] MEDS: Lidocaine 1% /Epi 1:100 (50ml) 50 ML VIAL (10:33)
--- NOTE | 2020-11-04 12:50 | PCM.OPRPT ---
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 This was biopsied with findings consistent with pleomorphic adenoma. Excision was offered given the propensity for these lesions to continue to grow and become quite large in size as well as the potential for malignant transformation and she is agreeable to proceed. The risks, alternatives, potential complications, and benefits were discussed at length and any questions answered to the patient and/or caregiver's satisfaction. Witnessed informed consent was obtained in the office, and the patient and/or caregiver was agreeable to proceed. Procedure went as follows: The patient was identified in the preoperative holding and the right parotid lesion site marked in accordance with the patient's physical skin exam, office notes, and consent. The patient was then brought to the operating room, placed under general anesthesia and intubated. When appropriate anesthesia was obtained, the facial nerve monitoring electrodes were then placed in accordance with the manufacture's directions over the right side of the face and confirmed to be operational. The planned incision was then marked with a marking pen and injected with 1% lidocaine with 100,000 epinephrine for a total of 7 mL. After allowing for vasoconstriction, a standard parotidectomy incision was then made using a 15 blade scalpel through the skin and subcutaneous tissues. The subcutaneous tissue was then dissected and the greater auricular nerve identified with the branches along the posterior aspect of the incisional flap preserved. Dissection was then carried down along the sternocleidomastoid freeing the parotid attachments to this muscle. Dissection was then carried out along the tragal cartilage and the main trunk of the facial nerve identified. The gland was then resected following out along the facial nerve branches working inferiorly to superiorly and freeing the mass from the parotid gland sacrificing a cuff of normal-appearing parotid tissue. This was then sent for surgical specimen. Operative stimulation of the facial nerve branches confirmed preservation of function. The wound bed was then copiously irrigated with saline solution and a #7 flat AMARA drain placed and brought out through separate stab incision in the skin. The wound was then closed deeply with interrupted 3-0 Vicryl sutures followed by a running 5-0 Monocryl to the skin. The patient was then returned to anesthesia, was revived, and extubated without complication having tolerated the procedure well. Surgeon: Darion Snow Type of Anesthesia: General Anesthesiologist: Evaristo Murry Special Medications: none Specimen's removed: right parotid mass Drains: #7 flat AMARA Estimated Blood Loss (mL): 50 mL Fluids Replaced: 1200 mL Grafts/Implants Used: none Complications none Admit VTE Documentation VTE Present on Admission: No VTE Mechan Device Prophylaxis: SCD's VTE Pharm Prophylaxis ordered?: No
[2020-11-04 13:10] LABS: Bedside Glucose 126 mg/dL (70-110)
[2020-11-04] MEDS: Ibuprofen 400 MG Tablet PO (14:35)
[2020-11-04 16:01] LABS: Bedside Glucose 178 mg/dL (70-110)
[2020-11-04] MEDS: metFORMIN (XR) 500 MG Tablet PO (17:31)
[2020-11-04] MEDS: Furosemide 40 MG Tablet PO (17:32)
[2020-11-04] MEDS: Sucralfate 1 GM Tablet PO (17:32)
[2020-11-04] MEDS: Acetaminophen 325 MG Tablet 650 MG PO (17:32)
[2020-11-04] MEDS: Gabapentin 300 MG Capsule PO ×2 (17:32→21:14)
[2020-11-04] MEDS: oxyCODONE HCl Cr 10 MG Tablet 20 MG PO (21:13)
[2020-11-04] MEDS: Pravastatin 20 MG Tablet PO (21:14)
[2020-11-04 21:25] LABS: Bedside Glucose 217 mg/dL (70-110)
[2020-11-05 01:20] VITALS: BP 125/52; PULSE 59; RESP 16; TEMP 36.6; O2SAT 99
[2020-11-05] MEDS: Acetaminophen 325 MG Tablet 650 MG PO (01:27)
[2020-11-05 04:41] VITALS: BP 149/52; PULSE 61; RESP 16; TEMP 36.6; O2SAT 100
[2020-11-05] MEDS: Gabapentin 300 MG Capsule PO (05:27)
[2020-11-05] MEDS: Sucralfate 1 GM Tablet PO (05:28)
[2020-11-05 06:45] LABS: Bedside Glucose 118 mg/dL (70-110)
[2020-11-05] MEDS: metFORMIN (XR) 500 MG Tablet PO (08:18)
[2020-11-05] MEDS: Furosemide 40 MG Tablet PO (08:18)
[2020-11-05] MEDS: buPROPion (XL) 150 MG TABLET.XL PO (08:18)
[2020-11-05] MEDS: FLUoxetine 20 MG Capsule 60 MG PO ×2 (08:18)
[2020-11-05] MEDS: Hydroxychloroquine 200 MG Tablet PO (08:18)
[2020-11-05] MEDS: Pantoprazole Sodium 40 MG Tablet PO (08:23)
[2020-11-05 08:40] VITALS: BP 126/48; PULSE 66; RESP 18; TEMP 36.4; O2SAT 99
--- NOTE | 2020-11-05 09:17 | PCM.PN.SRG ---
Subjective Subjective The patient reports that she has done well overnight with no significant pain complaints. She denies any facial weakness. Objective Data Objective Data The patient is well-appearing at the bedside. The right neck incision is clean dry and intact. Drain output is minimal and serosanguineous. Facial movement is full and intact all branches bilaterally. Vital Signs: Vital Signs Temp Pulse Resp BP Pulse Ox 97.8 F 61 16 149/52 H 100 11/05/20 04:41 11/05/20 04:41 11/05/20 04:41 11/05/20 04:41 11/05/20 04:41 Oxygen Flow Rate (L/min) 2 Oxygen Delivery Method Room Air Weight: 95.6 kg Body Mass Index (BMI) 35.0 Intake & Output: Intake and Output for Last 24 Hours 11/03/20 11/04/20 11/05/20 23:59 23:59 23:59 Intake Total 2101.67 / 2101.67 564.75 / 564.75 Output Total 5 / Balance 2081.67 / 2081.67 559.75 / 559.75 Lab / Micro Data Result Diagrams: 10/31/20 11:34 10/31/20 11:34 Labs: Laboratory Results - last 24 hr 11/04/20 08:56: POC Glucose 125 H 11/04/20 13:04: POC Glucose 126 H 11/04/20 15:47: POC Glucose 178 H 11/04/20 21:11: POC Glucose 217 H 11/05/20 06:36: POC Glucose 118 H Micro: Microbiology 10/31/20 11:15 Interface Orders SARS-CoV-2 Antigen (Rapid) - Final Physical Exam Const alert and oriented x3 General Appearance: cooperative and comfortable Orientation / Consciousness: oriented to person HEENT normocephalic and head/scalp atraumatic Neck full ROM General: normal visual inspection and trachea midline Resp normal respiratory effort and normal air movement Cardio Rate: regular rate Rhythm: regular rhythm Assessment & Plan Assessment/Plan (1) Pleomorphic adenoma of parotid gland: PLAN: The patient is doing well postoperative day #1 status post excision of pleomorphic adenoma of the right parotid gland. The wound site is healing well and drain output has been minimal overnight. The drain is removed at the bedside we will plan for discharge to home today. She has had an uneventful postoperative course.
--- NOTE | 2020-11-05 09:20 | PCM.DC ---
Discharge Instructions Diet Discharge Diet: No restrictions and 2000 Calorie Control Diet Activity Discharge Activity: Return to Normal Activity Dressing / Incision Call your doctor if your incision/area has: Increased Pain/ Swelling, Foul Smelling Discharge and Swelling at the incision site Call your doctor if you observe: Fever of 101 or Higher and Uncontrolled pain Cleanse incision/area with: Soap & Water Follow Up Care Please Follow Up With: Darion Snow MD When: 2 weeks Test Results: Test results from this visit will be discussed in further detail at your follow-up appointment, if applicable. Discharge Plan Admission Admit Date/Time: 11/04/20 12:55 Primary Reason for Your Visit: Pleomorphic adenoma of right parotid gland Attending Provider: Darion Snow Primary Care Provider: Steve Turcios Discharge Orders/Prescriptions Prescriptions: New acetaminophen [Tylenol] 325 mg Tablet 650 mg PO Q6H PRN PRN (Reason: Pain Score 1-10/Temp > 100.7 F) Qty: 0 RF: 0 ibuprofen 400 mg Tablet 400 mg PO Q4H PRN PRN (Reason: Pain Score 1-10/Temp > 100.7 F) Qty: 0 RF: 0 Continued omeprazole 40 MG capsule,delayed release(DR/EC) 40 mg PO DAILY RF: 0 gabapentin 300 MG capsule 300 mg PO TID RF: 0 pravastatin 20 MG tablet 20 mg PO QHS RF: 0 hydroxychloroquine 200 MG tablet 200 mg PO DAILYCM RF: 0 fluoxetine 20 MG capsule 60 mg PO DAILY RF: 0 metformin 500 MG tablet extended release 24 hr 500 mg PO BIDCM RF: 0 bupropion HCl 150 MG tablet extended release 24 hr 150 mg PO DAILY RF: 0 oxycodone myristate 18 MG cap,sprinkl,ER12hr(DONT CRUSH) 18 mg PO BID RF: 0 sucralfate 1 GM tablet 1 gm PO BID RF: 0 furosemide 20 MG tablet 40 mg PO BID RF: 0 insulin glargine 100 UNIT/ML insulin pen 40 unit SQ QHS Qty: 1 RF: 0 Referrals / Follow Up: Steve Turcios MD [Primary Care Provider] - Disposition Disposition (needs filled in before D/C Order can be placed): Home, Self Care
[2020-11-05] MEDS: oxyCODONE HCl Cr 10 MG Tablet 20 MG PO (09:54)
[2020-11-05 10:06] VITALS: BP 126/48; PULSE 66; RESP 18; TEMP 36.4; O2SAT 99
== END 2020-11-05 10:14 | disposition home or self-care (01) ==
LOC: SDC 13:29 → MS3 13:29
PROVIDERS: Anesthesiology; Admitting Provider Otolaryngology; PCP Family Medicine; Referring Provider Otolaryngology; Visit Provider Otolaryngology
PROC: (CPT 42410; principal; 2020-11-04 09:45)
DX: D11.0 Benign neoplasm of parotid gland (principal); I45.10 Unspecified right bundle-branch block; E66.01 Morbid (severe) obesity due to excess calories; M32.9 Systemic lupus erythematosus, unspecified; F41.9 Anxiety disorder, unspecified; F32.9 Major depressive disorder, single episode, unspecified; M79.7 Fibromyalgia; K21.9 Gastro-esophageal reflux disease without esophagitis; M19.90 Unspecified osteoarthritis, unspecified site; G25.81 Restless legs syndrome; E78.5 Hyperlipidemia, unspecified; E11.42 Type 2 diabetes mellitus with diabetic polyneuropathy; Z79.899 Other long term (current) drug therapy; Z79.4 Long term (current) use of insulin
CPT/HCPCS: 00100; 42415; 36415; 80048; 82962; 83036; 85025; 87426; 88305; 88331; 88341; 88342; 93005; 96360; 96361; 99218; C9803; J7120; G0378; J2405

== ENCOUNTER → 2020-12-28 11:38 | Outpatient (CLI) | payer MEDICARE, MEDICAID, SELFPAY ==
[2020-12-28 13:27] LABS: Amphetamine Urine VISTA NEGATIVE (<1000 ng/mL); Barbiturate Urine VISTA NEGATIVE (< 200 ng/mL); Benzodiazepine Urine VISTA NEGATIVE (< 200 ng/mL); Cocaine Urine VISTA NEGATIVE (< 300 ng/mL); Ecstacy Urine VISTA POSITIVE (< 500 ng/mL); Methadone Urine VISTA NEGATIVE (< 300 ng/mL); PCP Urine VISTA NEGATIVE (< 25 ng/mL); THC Urine VISTA NEGATIVE (< 50 ng/mL); Vista UDS pH Range 6
== END ==
PROVIDERS: PCP Family Medicine; Visit Provider Anesthesiology Pain Medicine
DX: F11.20 Opioid dependence, uncomplicated (principal)
CPT/HCPCS: 80307

== ENCOUNTER → 2021-01-27 11:36 | Outpatient (CLI) | payer MEDICARE, MEDICAID, SELFPAY ==
[2021-01-27 13:25] LABS: Amphetamine Urine VISTA NEGATIVE (<1000 ng/mL); Barbiturate Urine VISTA NEGATIVE (< 200 ng/mL); Benzodiazepine Urine VISTA NEGATIVE (< 200 ng/mL); Cocaine Urine VISTA NEGATIVE (< 300 ng/mL); Ecstacy Urine VISTA POSITIVE (< 500 ng/mL); Methadone Urine VISTA NEGATIVE (< 300 ng/mL); PCP Urine VISTA NEGATIVE (< 25 ng/mL); THC Urine VISTA NEGATIVE (< 50 ng/mL); Vista UDS pH Range 5
== END ==
PROVIDERS: PCP Family Medicine; Visit Provider Anesthesiology Pain Medicine
DX: F11.20 Opioid dependence, uncomplicated (principal)
CPT/HCPCS: 80307

== ENCOUNTER → 2021-02-02 12:44 | Outpatient (CLI) | payer MEDICARE, MEDICAID, SELFPAY ==
[2021-02-02 14:08] LABS: Amphetamine Urine VISTA NEGATIVE (<1000 ng/mL); Barbiturate Urine VISTA NEGATIVE (< 200 ng/mL); Benzodiazepine Urine VISTA NEGATIVE (< 200 ng/mL); Cocaine Urine VISTA NEGATIVE (< 300 ng/mL); Ecstacy Urine VISTA POSITIVE (< 500 ng/mL); Methadone Urine VISTA NEGATIVE (< 300 ng/mL); PCP Urine VISTA NEGATIVE (< 25 ng/mL); THC Urine VISTA NEGATIVE (< 50 ng/mL); Vista UDS pH Range 6
== END ==
PROVIDERS: PCP Family Medicine; Referring Provider Anesthesiology Pain Medicine; Visit Provider Anesthesiology Pain Medicine
DX: F11.20 Opioid dependence, uncomplicated (principal)
CPT/HCPCS: 80307

== ENCOUNTER 2021-09-15 21:01 | Emergency (ER) | payer MEDICARE, MEDICAID, SELFPAY ==
[2021-09-15 21:02] VITALS: BP 145/48; PULSE 58; RESP 16; TEMP 36.6; O2SAT 97; BMI 37.9
--- NOTE | 2021-09-15 21:16 | RAD_ITS ---
STUDY: LEFT KNEE X-RAY SERIES OF 2126 HOURS ON 09/15/2021 REASON FOR EXAM: 66-year-old female with fall injury to left knee. Previous left knee prosthesis. TECHNIQUE: 4 view(s) of the knee. COMPARISON: None. FINDINGS: Complete left knee prosthesis. No adjacent fractures or dislocation. No evidence of loosening. Mild demineralization. Normal surrounding soft tissues. RAD/Knee 4 or More Views IMPRESSION: 1. Complete left knee prosthesis. 2. No adjacent fractures or dislocation. 3. No evidence of loosening of the prosthesis. 4. Mild demineralization Electronically Signed: Arie Singh MD at 21:37 EDT ,
--- NOTE | 2021-09-15 21:35 | RAD_ITS ---
INDICATION: Injury/Pain EXAMINATION/TECHNIQUE: X-RAY - LEFT XR Tibia/Fibula 2 Views 2 VIEWS COMPARISON: Left foot x-rays and left knee x-rays from the same evening. FINDINGS: SOFT TISSUES: No soft tissue swelling or gas. No radiopaque foreign body. Significant peripheral vascular calcifications are noted. BONES/JOINTS: No acute fracture or malalignment. Total knee arthroplasty hardware without evidence of complication. No sclerotic or destructive changes observed. RAD/Tibia & Fibula 2 Views IMPRESSION: No evidence of traumatic osseous or soft tissue injury. Peripheral vascular disease. Electronically Signed: Tobi Lai DO at 22:38 EDT ,
--- NOTE | 2021-09-15 21:35 | RAD_ITS ---
STUDY: LEFT FOOT X-RAY SERIES OF 2146 HOURS ON 09/15/2021 CLINICAL: 66-year-old female with injury to left foot and pain. TECHNIQUE: 3 view(s) of the left foot. COMPARISON: None. FINDINGS: Hammertoe deformities of the first through fifth toes. Mild valgus deformity of the first metatarsal-phalangeal joint. No fractures or dislocations. Small Achilles and calcaneal spurs. No significant arthritic or degenerative changes. Normal talus, calcaneus, and tarsal bones. Normal visualized subtalar, talonavicular, calcaneocuboid, tarsal and tarsometatarsal articulations. Normal metatarsi. Normal metatarsophalangeal joint of the great toe. Normal tibial and fibular sesamoid bones. Normal interphalangeal joint of the great toe. Normal phalanges of the great toe. Normal second through fifth metatarsophalangeal joints. Normal interphalangeal joints and phalanges of the lesser toes. The soft tissue structures are unremarkable. RAD/Foot min 3 Views IMPRESSION: 1. No fractures or dislocations. 2. Hammertoe deformities of the first through fifth toes. 3. Mild valgus deformity first metatarsophalangeal joint. 4. Small Achilles and calcaneal spurs. Electronically Signed: Arie Singh MD at 23:46 EDT ,
--- NOTE | 2021-09-15 21:37 | EDS_ITS ---
HPI History of Present Illness HPI Narrative: Patient presents with left knee and foot pain that began after a fall. Patient states she fell just a couple hours prior to arrival. Patient twisted her left foot and knee. Patient describes her pain as aching. Patient states her pain is worse with any movement. Patient denies any paresthesias or weakness. Patient denies any head injury or loss of consciousness. Patient denies any other injuries. Chief Complaint: Lower Extremity Injury Informant: patient Occured/Mechanism Mechanism/Context: Yes fall Onset/Context/Timing Onset: Today Context: Sudden Onset Timing: Continuous Quality of Pain: Aching Location: Left knee and left foot Worsened by: Movement Relieved by: Nothing Associated Symptoms Associated Symptoms: Negative for Parasthesia, Weakness and Loss of Funtion PFSH [facility] Medical History Ambulates with cane Anemia Anxiety DDD (degenerative disc disease) Depression Diabetes mellitus, type II Diastolic dysfunction Esophagitis Fibromyalgia Gastric reflux GI bleed History of echocardiogram History of wrist fracture Hyperlipidemia Leg cramps Low iron Lupus Obesity, morbid, BMI 40.0-49.9 Osteoarthritis Peripheral neuropathy Restless legs Rheumatoid arteritis Right bundle branch block Seizures Wears dentures Wears glasses Home Medications bupropion HCl 150 mg PO DAILY 04/17/19 [History Last Taken 06/10/20] fluoxetine 60 mg PO DAILY 04/17/19 [History Last Taken 06/10/20] gabapentin 300 mg PO TID 04/17/19 [History Last Taken 06/10/20] hydroxychloroquine 200 mg PO DAILYCM 04/17/19 [History Last Taken 06/10/20] metformin 500 mg PO BIDCM 04/17/19 [History Last Taken 06/10/20] omeprazole 40 mg PO DAILY 04/17/19 [History Last Taken 06/10/20] pravastatin 20 mg PO QHS 04/17/19 [History Last Taken 06/10/20] oxycodone myristate 18 mg PO BID 06/01/20 [History Last Taken 06/10/20] sucralfate 1 gm PO BID 06/01/20 [History Last Taken 06/10/20] furosemide 40 mg PO BID 06/10/20 [History Last Taken 06/10/20] insulin glargine 40 unit SQ QHS #1 06/12/20 [Rx Last Taken Unknown] acetaminophen [Tylenol] 650 mg PO Q6H PRN PRN #0 tab 11/05/20 [Rx Last Taken Unknown] ibuprofen 400 mg PO Q4H PRN PRN #0 tab 11/05/20 [Rx Last Taken Unknown] Allergy/AdvReac Type Severity Reaction Status Date / Time No Known Allergies Allergy Verified 10/28/20 10:59 Family History Father Cancer Mother Hypertension Surgical History H/O repair of right rotator cuff History of carpal tunnel surgery History of left heart catheterization (08/01/07) History of lumbar fusion History of open reduction and internal fixation (ORIF) procedure History of total knee replacement History of tubal ligation Hx of cholecystectomy S/P insertion of spinal cord stimulator Social History Smoking Status: Former smoker ROS ROS ED Constitutional Constitutional ED: Denies chills or fever(s) Eyes Eyes: Denies blurry vision or change in vision ENT ENT ED: Denies rhinorrhea or sore throat Cardiovascular Cardiovascular: Denies chest pain or palpitations Respiratory/Chest Respiratory/Chest: Denies cough or dyspnea Gastrointestinal Gastrointestinal: Denies nausea or vomiting Genitourinary Genitourinary ED: Denies dysuria or hematuria Musculoskeletal Musculoskeletal: Reports back pain; Denies neck pain Integumentary Denies abscess or rash Neurologic Neurologic: Denies headache(s) or weakness Allergic/Immunologic Allergic/Immunologic ED: Denies mouth swelling or urticaria EXAM Physical Exam Const Vital Signs: 09/15/21 21:02 Temperature 97.8 F Temperature Source Temporal Pulse Rate 58 L Respiratory Rate 16 Blood Pressure 145/48 H Blood Pressure Mean 80 Pulse Ox 97 Oxygen Delivery Method Room Air Positive well nourished and well developed General Appearance ED: well developed and NAD HEENT Reports moist mucous membranes Neck full ROM Extremity Extremity Narrative: There is tenderness, edema, and ecchymosis over the dorsum of the left foot, left proximal lower leg, and left knee. There are some abrasions over the lateral aspect of the left knee. Range of motion was limited in all motions of the left knee and left ankle secondary to pain. Sensation was intact to light touch in all digits. Pedal pulses are equal bilaterally. Capillary refill is less than 2 seconds in all digits. Strength is 5/5 bilaterally in the lower extremities. Neuro oriented x3, CN's II-XII intact bilaterally, moves all extremities and no sensory deficits noted Sensorium / Orientation: alert Motor Exam: strength 5/5 throughout Psych mental status grossly normal MDM MDM MDM Narrative Medical decision making narrative: X-rays of the left knee were obtained. There are 4 views. On my interpretation, there is no acute fracture or dislocation. The knee prosthesis is intact. There is no loosening noted. Radiologist also interpreted the x-rays and agrees. X-rays of the left tibia and fibula were obtained. There are 2 views. On my interpretation, there is no acute fracture or dislocation. Radiologist also interpreted the x-rays and agrees. X-rays of the left foot were obtained. There are 3 views. On my interpretation, there is no acute fracture or dislocation. There is some soft tissue swelling noted. Ra diologist also interpreted the x-ray and agrees. Patient was advised of her findings. Patient was instructed to ice and elevate the left lower extremity. Patient was instructed to take Tylenol or ibuprofen as needed for pain. Patient understood and was agreeable with the plan. All questions were answered. Radiography Diagnostic Testing: Clinical Impression(s) from Imaging Studies Knee X-Ray 09/15/21 21:16 IMPRESSION: 1. Complete left knee prosthesis. 2. No adjacent fractures or dislocation. 3. No evidence of loosening of the prosthesis. 4. Mild demineralization Electronically Signed: Arie Singh MD at 21:37 EDT , Tibia/Fibula X-Ray 09/15/21 21:35 IMPRESSION: No evidence of traumatic osseous or soft tissue injury. Peripheral vascular disease. Electronically Signed: Tobi Lai DO at 22:38 EDT , Discharge Plan Triage Chief Complaint: Lower Extremity Injury ED Provider: Darion Morse Dx/Rx/DC Orders Clinical Impression: Contusion of left knee and lower leg, Sprain of left foot Instructions: ED Contusion, Lower Extremity, ED Foot Sprain Prescriptions: No Action omeprazole 40 MG capsule,delayed release(DR/EC) 40 mg PO DAILY RF: 0 gabapentin 300 MG capsule 300 mg PO TID RF: 0 pravastatin 20 MG tablet 20 mg PO QHS RF: 0 hydroxychloroquine 200 MG tablet 200 mg PO DAILYCM RF: 0 fluoxetine 20 MG capsule 60 mg PO DAILY RF: 0 metformin 500 MG tablet extended release 24 hr 500 mg PO BIDCM RF: 0 bupropion HCl 150 MG tablet extended release 24 hr 150 mg PO DAILY RF: 0 oxycodone myristate 18 MG cap,sprinkl,ER12hr(DONT CRUSH) 18 mg PO BID RF: 0 sucralfate 1 GM tablet 1 gm PO BID RF: 0 furosemide 20 MG tablet 40 mg PO BID RF: 0 insulin glargine 100 UNIT/ML insulin pen 40 unit SQ QHS Qty: 1 RF: 0 acetaminophen [Tylenol] 325 mg Tablet 650 mg PO Q6H PRN PRN (Reason: Pain Score 1-10/Temp > 100.7 F) Qty: 0 RF: 0 ibuprofen 400 mg Tablet 400 mg PO Q4H PRN PRN (Reason: Pain Score 1-10/Temp > 100.7 F) Qty: 0 RF: 0 Primary Care Provider: Steve Turcios Referrals: Steve Turcios MD [Primary Care Provider] - 5-7 Days Disposition Disposition: Home, Self Care
--- NOTE | 2021-09-15 23:13 | ED.RN ---
called radiology to inquire about foot xray
== END 2021-09-15 23:55 | disposition home or self-care (01) ==
PROVIDERS: Emergency Provider Emergency Medicine; PCP Family Medicine; Visit Provider Emergency Medicine
DX: S93.602A Unspecified sprain of left foot, initial encounter (principal); M06.9 Rheumatoid arthritis, unspecified; E11.42 Type 2 diabetes mellitus with diabetic polyneuropathy; E66.01 Morbid (severe) obesity due to excess calories; Z79.4 Long term (current) use of insulin; S80.12XA Contusion of left lower leg, initial encounter; S80.02XA Contusion of left knee, initial encounter; W19.XXXA Unspecified fall, initial encounter; K21.9 Gastro-esophageal reflux disease without esophagitis; E78.5 Hyperlipidemia, unspecified; M79.7 Fibromyalgia; F41.9 Anxiety disorder, unspecified; Z79.899 Other long term (current) drug therapy; Z87.891 Personal history of nicotine dependence; Z96.652 Presence of left artificial knee joint
CPT/HCPCS: 73564; 73590; 73630; 99282

== ENCOUNTER → 2022-07-23 | Outpatient (CLI) | payer MEDICARE, MEDICAID, SELFPAY ==
--- NOTE | 2022-07-23 14:35 | CT_ITS ---
EXAM: CT RIGHT LOWER EXTREMITY WITH INTRAVENOUS CONTRAST, KNEE CLINICAL INDICATION: KNEE PAIN TECHNIQUE: Helically acquired images were obtained of the right knee with intravenous contrast. CTDIvol = ( 15.35 ) mGy, DLP = ( 553.33 ) mGycm This CT exam was performed using one or more of the following dose reduction techniques: automated exposure control, adjustment of the mA and/or kV according to patient size, and/or use of iterative reconstruction technique. This report was created using [employer] technology. CONTRAST: IV 100mL Isovue-300 COMPARISON: None. FINDINGS: BONES/JOINTS: Severe patellofemoral osteoarthrosis. Moderate osteoarthrosis of the medial greater than lateral femorotibial compartments. Preservation of the joint space. No acute or healing fracture or malalignment. No unusual lytic or sclerotic lesions of bone. SOFT TISSUES: Moderate joint effusion. Moderate-sized Melgar''s cyst with no evidence of inferior leakage or rupture. No soft tissue swelling or gas. No radiopaque foreign body. No additional soft tissue masses. VASCULATURE: Peripheral vascular calcifications are identified involving multiple vessels, more prominent below the knee. CT/Extremity Lower WITH Contrast IMPRESSION: 1. Tricompartmental osteoarthrosis with severe at the patellofemoral compartment. 2. Moderate suprapatellar joint effusion and moderate-size Melgar''s cyst without evidence of inferior leakage or rupture. Electronically Signed: Wiliam Arana MD at 3:49 EDT ,
[2022-07-23 17:55] LABS: CREATININE FINGERSTICK 1.3 mg/dL (0.55-1.02)
== END | disposition home or self-care (01) ==
LOC: CT 14:34
PROVIDERS: PCP Family Medicine; Referring Provider Physician Assistant; Visit Provider Physician Assistant
DX: S83.8X1D Sprain of other specified parts of right knee, subsequent encounter (principal); M17.11 Unilateral primary osteoarthritis, right knee
CPT/HCPCS: 73701; Q9967

== ENCOUNTER 2023-04-17 18:38 | Emergency (ER) | payer MEDICARE, MEDICAID, SELFPAY ==
[2023-04-17 18:40] VITALS: BP 117/66; PULSE 77; RESP 14; TEMP 36.3; O2SAT 100
[2023-04-17 21:19] VITALS: BMI 34.2
--- OUTSIDE RECORDS SUMMARY | 2023-04-17 21:27 | XMS RPT_ITS | CCD ---
Author Name Unknown Address [address] [place] [address] Organization [facility] Care Team Providers Care Publication Designer Name Role Phone PALLAVI MEJÍA Unavailable Unavailable STEVE VERDUGO Unavailable Unavailable ERIC JONES DR Unavailable Unavailable ERIC JONES DR Unavailable Unavailable ERIC JONES DR Unavailable Unavailable KARTIK, STEVE Unavailable Unavailable PROVIDER, UNKNOWN Unavailable Unavailable ERIC JONES DR Unavailable Unavailable ERIC JONES DR Unavailable Unavailable ERIC JONES DR Unavailable Unavailable STEVE VERDUGO Unavailable Unavailable PROVIDER, UNKNOWN Unavailable Unavailable ERIC JONES DR Unavailable Unavailable ERIC JONES DR Unavailable Unavailable STEVE VERDUGO Unavailable Unavailable ERIC JONES DR Unavailable Unavailable STEVE VERDUGO Unavailable Unavailable PROVIDER, UNKNOWN Unavailable Unavailable Steve Verdugo MD Primary Care Provider Steve Verdugo MD Primary Care Provider [phone] Ailyn Carson PA-C Primary Care Provider Ailyn Carson PA-C Primary Care Provider Steve Verdugo MD Primary Care Provider KAT RUSSO Referring Unavailable Ailyn CARSON Primary Care Unavailable EUGENIA VEE Admitting Unavailable EUGENIA VEE Attending Unavailable Alexis Duong DO Unavailable Ailyn CARSON Primary Care Unavailable NHUNG WALLIS Referring Unavailable Ailyn CARSON Primary Care Unavailable TYLER DIXON Attending Unavailable Ailyn CARSON Referring Unavailable Ailyn CARSON Primary Care Unavailable KAT RUSSO Attending Unavailable Ailyn CARSON Primary Care Unavailable Ailyn CARSON Referring Unavailable Ailyn CARSON Primary Care Unavailable ROBERTA LANZA Attending Unavailable Ailyn CARSON Primary Care Unavailable Ailyn CARSON Primary Care Unavailable NHUNG WALLIS Attending Unavailable CARSON, Ailyn ADELIA Primary Care Unavailable NHUNG WALLIS Attending Unavailable NHUNG WALLIS Referring Unavailable ALEXIS DUONG Referring Unavailable CASRON, Ailyn ADELIA Primary Care Unavailable CARSON, M ADELIA Attending Unavailable CARSON, M ADELIA Primary Care Unavailable CARSON, M ADELIA Primary Care Unavailable KAT RUSSO Attending Unavailable ACRSON, M ADELIA Referring Unavailable CARSON, M ADELIA Primary Care Unavailable CARSON, M ADELIA Primary Care Unavailable CARSON, M ADELIA Attending Unavailable CARSON, M ADELIA Primary Care Unavailable NHUNG WALLIS Referring Unavailable CARSON, M ADELIA Primary Care Unavailable CARSON, M ADELIA Primary Care Unavailable CARSON, M ADELIA Primary Care Unavailable CARSON, M ADELIA Primary Care Unavailable CARSON, M ADELIA Primary Care Unavailable CARY LOREDO Attending Unavailable Allergies Allergy Classification Reported Allergen(s) Allergy Type Date of Onset Reaction(s) Facility (1 source) NKDA - NO KNOWN DRUG ALLERGIES Drug allergy (disorder) [facility] Repository Medications Current Medications Medication Drug Class(es) Dates Sig (Normalized) Sig (Original) furosemide 20 mg oral tablet (20 sources) Loop Diuretic Start: 02-18-2023 End: 05-19-2023 furosemide (LASIX) 20 mg tablet Take 1 tablet by mouth two times a day. Patient may adjust from baseline 40 mg daily up to 40 mg twice daily based on weight gain greater than 3 pounds plus either increased shortness of breath or increased swelling. 90 tablet 1 02/18/2023 05/19/2023 Active Completed/Discontinued Medications Medication Drug Class(es) Dates Sig (Normalized) Sig (Original) acetaminophen 500 mg oral tablet (20 sources) End: 05-21-2022 take 2 tablets by mouth every eight hours as needed acetaminophen (TYLENOL) 500 mg tablet Take 1,000 mg by mouth every 8 hours as needed. 0 05/21/2022 Discontinued (Discontinued by Patient) Problems Active Problems Problem Classification Problem Date Documented Da te Episodic/Chronic Anxiety disorders (20 sources) Anxiety; Translations: [Anxiety disorder, unspecified] Onset: 0 11-15-2009 Chronic Cardiac dysrhythmias (2 sources) Bradycardia; Translations: [Bradycardia, unspecified] Episodic Chronic kidney disease (20 sources) Chronic kidney disease stage 3; Translations: [Chronic renal insufficiency, stage 3 (moderate)] Onset: 1 06-10-2020 Chronic Conduction disorders (20 sources) Right bundle branch block; Translations: [Unspecified right bundle-branch block] Onset: 3 06-07-2022 Chronic Congestive heart failure; nonhypertensive (20 sources) Acute on chronic diastolic heart failure; Translations: [Acute on chronic diastolic (congestive) heart failure] Onset: 3 Chronic Diabetes mellitus with complications (20 sources) Type 2 diabetes mellitus; Translations: [Type 2 diabetes mellitus with diabetic neuropathy, unspecified] Onset: 6 04-03-2021 Chronic Disorders of lipid metabolism (20 sources) Mixed hyperlipidemia; Translations: [Mixed hyperlipidemia] Onset: 6 06-23-2011 Chronic E Codes: Fall (1 source) Fall; Translations: [Unspecified fall, subsequent encounter] Episodic Esophageal disorders (20 sources) Gastroesophageal reflux disease without esophagitis; Translations: [Gastro-esophageal reflux disease without esophagitis] Onset: 3 Chronic Esophageal disorders (1 source) Esophageal disorders; Translations: [Gastroesophageal reflux disease with esophagitis without hemorrhage] Onset: 3 Malaise and fatigue (1 source) Fatigue; Translations: [Other fatigue] Episodic Miscellaneous mental health disorders (20 sources) Psychalgia; Translations: [Pain disorder with related psychological factors] Onset: 4 11-09-2013 Chronic Mood disorders (20 sources) Chronic depression; Translations: [Chronic depression] Onset: 6 06-23-2020 Chronic Nutritional deficiencies (20 sources) Vitamin D deficiency; Translations: [Vitamin D deficiency, unspecified] 06-19-2012 Chronic Osteoarthritis (20 sources) Osteoarthritis of left knee joint; Translations: [Unilateral primary osteoarthritis, left knee] Onset: 6 10-06-2015 Chronic Other aftercare (1 source) Drug therapy finding; Translations: [Other terminal operator (current) drug therapy] Episodic Other aftercare (2 sources) Marijuana user; Translations: [Other terminal operator (current) drug therapy] Episodic Other aftercare (1 source) Patient encounter status; Translations: [Other snf (current) drug therapy] Episodic Other and ill-defined heart disease (20 sources) Left ventricular diastolic dysfunction ; Translations: [Heart disease, unspecified] Onset: 8 09-30-2017 Chronic Other and ill-defined heart disease (20 sources) Diastolic dysfunction; Translations: [Other ill-defined heart diseases] Onset: 3 06-07-2022 Chronic Other and unspecified benign neoplasm (1 source) History of polyp of colon; Translations: [Personal history of colonic polyps] Episodic Other connective tissue disease (20 sources) Fibromyalgia; Translations: [Fibromyalgia] 11-19-2016 Episodic Other diseases of kidney and ureters (1 source) Renal impairment; Translations: [Disorder of kidney and ureter, unspecified] Episodic Other female genital disorders (1 source) Vaginal irritation; Translations: [Other specified noninflammatory disorders of vagina] Episodic Other gastrointestinal disorders (20 sources) Malabsorption - iron; Translations: [Intestinal malabsorption, unspecified] Onset: 5 12-30-2014 Chronic Other gastrointestinal disorders (1 source) Intestinal malabsorption, unspecified; Translations: [Malabsorption of iron] Onset: 5 Chronic Other nervous system disorders (20 sources) Metabolic encephalopathy; Translations: [Metabolic encephalopathy] Onset: 3 06-07-2022 Chronic Other nervous system disorders (3 sources) Tremor; Translations: [Tremor, unspecified] Episodic Other nutritional; endocrine; and metabolic disorders (20 sources) Obesity; Translations: [Obesity, unspecified] 06-23-2011 Chronic Other nutritional; endocrine; and metabolic disorders (1 source) Weight loss; Translations: [Abnormal weight loss] Episodic Residual codes; unclassified (2 sources) Obstructive sleep apnea syndrome; Translations: [Obstructive sleep apnea (adult) (pediatric)] Chronic Spondylosis; intervertebral disc disorders; other back problems (20 sources) Degeneration of lumbar intervertebral disc; Translations: [Other intervertebral disc degeneration, lumbar region] 06-05-2018 Chronic Systemic lupus erythematosus and connective tissue disorders (20 sources) Lupus erythematosus; Translations: [Systemic lupus erythematosus, unspecified] Onset: 3 Chronic Unclassified (1 source) Post Op Onset: 3 Past or Other Problems Problem Classification Problem Date Documented Da te Episodic/Chronic Deficiency and other anemia (20 sources) Iron deficiency anemia; Translations: [Iron deficiency anemia, unspecified] Onset: 6 04-03-2021 Episodic Deficiency and other anemia (20 sources) Anemia; Translations: [Anemia, unspecified] Onset: 8 09-13-2017 Episodic Deficiency and other anemia (1 source) Anemia, unspecified; Translations: [Anemia, unspecified type] Onset: 8 Episodic Esophageal disorders (20 sources) Esophagitis; Translations: [Esophagitis, unspecified] Onset: 0 02-01-2010 Episodic Gastrointestinal hemorrhage (20 sources) Blood-tinged feces; Translations: [Melena] Onset: 3 Episodic Nausea and vomiting (20 sources) Nausea; Translations: [Nausea] Onset: 3 Episodic Other aftercare (1 source) Other terminal operator (current) drug therapy; Translations: [Encounter for long-term (current) use of medications] Onset: 3 Episodic Other and unspecified benign neoplasm (1 source) Personal history of colonic polyps; Translations: [History of colonic polyps] Onset: 3 Episodic Other connective tissue disease (20 sources) Enthesopathy of ankle AND/OR tarsus; Translations: [Other enthesopathy of unspecified foot and ankle] Onset: 1 06-23-2011 Episodic Other connective tissue disease (1 source) Fibromyalgia; Translations: [Fibromyalgia] Onset: 7 Episodic Other female genital disorders (1 source) Other specified noninflammatory disorders of vagina; Translations: [Vaginal irritation] Onset: 3 Episodic Other gastrointestinal disorders (20 sources) Altered bowel function; Translations: [Other specified symptoms and signs involving the digestive system and abdomen] Onset: 3 Episodic Other gastrointestinal disorders (2 sources) Change in bowel habit; Translations: [Change in bowel habits] Onset: 3 Episodic Other gastrointestinal disorders (1 source) Other specified symptoms and signs involving the digestive system and abdomen; Translations: [Change in bowel function] Onset: 3 Episodic Other nervous system disorders (19 sources) H/O: brain disorder; Translations: [Personal history of other diseases of the nervous system and sense organs] Onset: 3 08-31-2022 Episodic Other nutritional; endocrine; and metabolic disorders (1 source) Abnormal weight loss; Translations: [Weight loss] Onset: 3 Episodic Other screening for suspected conditions (not mental disorders or infectious disease) (20 sources) Electrocardiogram abnormal; Translations: [Abnormal electrocardiogram [ECG] [EKG]] Onset: 8 06-05-2018 Episodic Spondylosis; intervertebral disc disorders; other back problems (20 sources) Thoracic and lumbosacral neuritis; Translations: [Thoracic or lumbosacral neuritis or radiculitis, unspecified] Onset: 8 12-11-2007 Episodic Results Test Name Value Interpretation Reference Range Facil ity Vital Signs Date Time Vital Sign Value Performing Clinician Aramis akhtar 12-11-2022 13:42-0400 Body temperature 97.39 [degF] Nhung Wallis APRN.CNP Work Phone: [facility] 12-11-2022 13:42-0400 Body weight 95.94 kg Nhung Wallis APRN.[employer]ORED CAR DRIVER Work Phone: [facility] 12-11-2022 13:42-0400 Diastolic blood pressure 69 mm[Hg] Nhung Wallis 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 Phone: [facility] 12-11-2022 13:42-0400 Heart rate 85 /min Nhung Wallis APRN.[employer]ORED [employer]IVER Work Phone: [facility] 12-11-2022 13:42-0400 SaO2% (BldA) [Mass fraction] 98 % Nhung Wallis 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 Phone: [facility] 12-11-2022 13:42-0400 Systolic blood pressure 106 mm[Hg] Nhung Wallis 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 Phone: [facility] 12-04-2022 14:01-0400 Body weight 97.34 kg Cary Loredo APRN.[employer]ORED CAR DRIVER Work Phone: [facility] 12-04-2022 14:01-0400 Diastolic blood pressure 48 mm[Hg] Cary Loredo 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 Phone: [facility] 12-04-2022 14:01-0400 Heart rate 74 /min Cary Loredo 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 Phone: [facility] 12-04-2022 14:01-0400 Systolic blood pressure 108 mm[Hg] Cary Loredo APRN.[employer]ORED CAR DRIVER Work Phone: [facility] 11-14-2022 10:35-0400 Body temperature 97.7 [degF] Treatment Wstr Work Phone: [facility] 11-14-2022 10:35-0400 Diastolic blood pressure 66 mm[Hg] Treatment Wstr Work Phone: [facility] 11-14-2022 10:35-0400 Heart rate 70 /min Treatment Wstr Work Phone: [facility] 11-14-2022 10:35-0400 Respiratory rate 16 /min Treatment Wstr Work Phone: [facility] 11-14-2022 10:35-0400 SaO2% (BldA) [Mass fraction] 100 % Treatment Wstr Work Phone: [facility] 11-14-2022 10:35-0400 Systolic blood pressure 103 mm[Hg] Treatment Wstr Work Phone: [facility] 11-12-2022 13:17-0400 Body temperature 96.8 [degF] Treatment Wstr Work Phone: [facility] 11-12-2022 13:17-0400 Diastolic blood pressure 58 mm[Hg] Treatment Wstr Work Phone: [facility] 11-12-2022 13:17-0400 Heart rate 73 /min Treatment Wstr Work Phone: [facility] 11-12-2022 13:17-0400 Systolic blood pressure 125 mm[Hg] Treatment Wstr Work Phone: [facility] 11-06-2022 14:36-0400 Body temperature 96.8 [degF] Treatment Wstr Work Phone: [facility] 11-06-2022 14:36-0400 Diastolic blood pressure 49 mm[Hg] Treatment Wstr Work Phone: [facility] 11-06-2022 14:36-0400 Heart rate 64 /min Treatment Wstr Work Phone: [facility] 11-06-2022 14:36-0400 SaO2% (BldA) [Mass fraction] 100 % Treatment Wstr Work Phone: [facility] 11-06-2022 14:36-0400 Systolic blood pressure 119 mm[Hg] Treatment Wstr Work Phone: [facility] 11-02-2022 13:00-0400 Body temperature 97.59 [degF] Treatment Wstr Work Phone: [facility] 11-02-2022 13:00-0400 Diastolic blood pressure 74 mm[Hg] Treatment Wstr Work Phone: [facility] 11-02-2022 13:00-0400 Heart rate 71 /min Treatment Wstr Work Phone: [facility] 11-02-2022 13:00-0400 Respiratory rate 18 /min Treatment Wstr Work Phone: [facility] 11-02-2022 13:00-0400 SaO2% (BldA) [Mass fraction] 97 % Treatment Wstr Work Phone: [facility] 11-02-2022 13:00-0400 Systolic blood pressure 122 mm[Hg] Treatment Wstr Work Phone: [facility] 06-07-2022 11:02-0500 Body height 162.6 cm Roberta [place] 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 Phone: [facility] 06-07-2022 11:02-0500 Body weight 93.17 kg Roberta [place] 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 Phone: [facility] 06-07-2022 11:02-0500 Diastolic blood pressure 58 mm[Hg] Roberta [place] 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 Phone: [facility] 06-07-2022 11:02-0500 Systolic blood pressure 110 mm[Hg] Roberta Tara 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 Phone: [facility] 06-07-2022 10:00-0500 Body height 165.1 cm Kat Kaden PA-C Work Phone: [facility] 06-07-2022 10:00-0500 Body temperature 98.29 [degF] Kat [place] PA-C Work Phone: [facility] 06-07-2022 10:00-0500 Body weight 93.71 kg Kat [place] PA-C Work Phone: [facility] 06-07-2022 10:00-0500 Diastolic blood pressure 60 mm[Hg] Kat [place] PA-C Work Phone: [facility] 06-07-2022 10:00-0500 Heart rate 107 /min Kat [place] PA-C Work Phone: [facility] 06-07-2022 10:00-0500 SaO2% (BldA) [Mass fraction] 99 % Kat Kaden PA-C Work Phone: [facility] 06-07-2022 10:00-0500 Systolic blood pressure 112 mm[Hg] Kat Kaden PA-C Work Phone: [facility] 05-21-2022 14:35-0500 Body weight 92.99 kg NA Carson PA-C Work Phone: [facility] 05-21-2022 14:35-0500 Diastolic blood pressure 60 mm[Hg] NA Carson PA-C Work Phone: [facility] 05-21-2022 14:35-0500 Heart rate 81 /min NA Carson PA-C Work Phone: [facility] 05-21-2022 14:35-0500 SaO2% (BldA) [Mass fraction] 97 % NA Carson PA-C Work Phone: [facility] 05-21-2022 14:35-0500 Systolic blood pressure 118 mm[Hg] NA Carson PA-C Work Phone: [facility] 03-07-2022 15:49-0500 Body weight 98.88 kg Cary Rajguru 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 Phone: [facility] 03-07-2022 15:49-0500 Diastolic blood pressure 58 mm[Hg] Cary Rajguru 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 Phone: [facility] 03-07-2022 15:49-0500 Heart rate 70 /min Cary Rajguru 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 Phone: [facility] 03-07-2022 15:49-0500 Systolic blood pressure 104 mm[Hg] Cary Rajguru 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 Phone: [facility] 02-21-2022 13:24-0500 Body height 163.8 cm Nhung Wallis 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 Phone: [facility] 02-21-2022 13:24-0500 Body temperature 97 [degF] Potomac Wallis 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 Phone: [facility] 02-21-2022 13:24-0500 Body weight 99.56 kg Nhung Wallis 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 Phone: [facility] 02-21-2022 13:24-0500 Diastolic blood pressure 65 mm[Hg] [place] Wallis 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 Phone: [facility] 02-21-2022 13:24-0500 Heart rate 68 /min Nhung Wallis 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 Phone: [facility] 02-21-2022 13:24-0500 Systolic blood pressure 119 mm[Hg] Nhung Wallis 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 Phone: [facility] 12-13-2021 15:32-0400 Body weight 99.79 kg Cary Rajguru 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 Phone: [facility] 12-13-2021 15:32-0400 Diastolic blood pressure 58 mm[Hg] Cary Rajguru 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 Phone: [facility] 12-13-2021 15:32-0400 Systolic blood pressure 112 mm[Hg] Cary Loredo 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 Phone: [facility] 09-29-2021 14:24-0400 Body weight 99.34 kg NA Carson PA-C Work Phone: [facility] 09-29-2021 14:24-0400 Diastolic blood pressure 60 mm[Hg] NA Carson PA-C Work Phone: [facility] 09-29-2021 14:24-0400 Heart rate 56 /min NA Carson PA-C Work Phone: [facility] 09-29-2021 14:24-0400 Respiratory rate 16 /min NA Carson PA-C Work Phone: [facility] 09-29-2021 14:24-0400 SaO2% (BldA) [Mass fraction] 98 % NA Carson PA-C Work Phone: [facility] 09-29-2021 14:24-0400 Systolic blood pressure 116 mm[Hg] NA Carson PA-C Work Phone: [facility] 09-22-2021 14:41-0400 Diastolic blood pressure 64 mm[Hg] Leelee Haagen 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 Phone: [facility] 09-22-2021 14:41-0400 Heart rate 53 /min Leelee Haagen 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 Phone: [facility] 09-22-2021 14:41-0400 Respiratory rate 18 /min Leelee Haagen 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 Phone: [facility] 09-22-2021 14:41-0400 SaO2% (BldA) [Mass fraction] 99 % Leelee Haagen 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 Phone: [facility] 09-22-2021 14:41-0400 Systolic blood pressure 110 mm[Hg] Leelee Haagen 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 Phone: [facility] 09-12-2021 14:14-0400 Body temperature 97.9 [degF] Treatment Wstr Work Phone: [facility] 09-12-2021 14:14-0400 Diastolic blood pressure 60 mm[Hg] Treatment Wstr Work Phone: [facility] 09-12-2021 14:14-0400 Heart rate 78 /min Treatment Wstr Work Phone: [facility] 09-12-2021 14:14-0400 Respiratory rate 18 /min Treatment Wstr Work Phone: [facility] 09-12-2021 14:14-0400 Systolic blood pressure 133 mm[Hg] Treatment Wstr Work Phone: [facility] 09-11-2021 14:12-0400 Body temperature 97.5 [degF] Treatment Wstr Work Phone: [facility] 09-11-2021 14:12-0400 Diastolic blood pressure 45 mm[Hg] Treatment Wstr Work Phone: [facility] 09-11-2021 14:12-0400 Heart rate 70 /min Treatment Wstr Work Phone: [facility] 09-11-2021 14:12-0400 Systolic blood pressure 103 mm[Hg] Treatment Wstr Work Phone: [facility] 08-30-2021 10:32-0400 Body temperature 97.3 [degF] Treatment Wstr Work Phone: [facility] 08-30-2021 10:32-0400 Diastolic blood pressure 61 mm[Hg] Treatment Wstr Work Phone: [facility] 08-30-2021 10:32-0400 Heart rate 70 /min Treatment Wstr Work Phone: [facility] 08-30-2021 10:32-0400 SaO2% (BldA) [Mass fraction] 99 % Treatment Wstr Work Phone: [facility] 08-30-2021 10:32-0400 Systolic blood pressure 137 mm[Hg] Treatment Wstr Work Phone: [facility] 08-28-2021 12:05-0400 Body temperature 97 [degF] Treatment Wstr Work Phone: [facility] 08-28-2021 12:05-0400 Diastolic blood pressure 55 mm[Hg] Treatment Wstr Work Phone: [facility] 08-28-2021 12:05-0400 Heart rate 66 /min Treatment Wstr Work Phone: [facility] 08-28-2021 12:05-0400 Respiratory rate 18 /min Treatment Wstr Work Phone: [facility] 08-28-2021 12:05-0400 SaO2% (BldA) [Mass fraction] 98 % Treatment Wstr Work Phone: [facility] 08-28-2021 12:05-0400 Systolic blood pressure 135 mm[Hg] Treatment Wstr Work Phone: [facility] 08-24-2021 16:05-0400 Diastolic blood pressure 51 mm[Hg] Treatment Wstr Work Phone: [facility] 08-24-2021 16:05-0400 Heart rate 79 /min Treatment Wstr Work Phone: [facility] 08-24-2021 16:05-0400 Systolic blood pressure 114 mm[Hg] Treatment Wstr Work Phone: [facility] 08-24-2021 15:37-0400 Body temperature 97.59 [degF] Treatment Wstr Work Phone: [facility] 08-24-2021 15:37-0400 SaO2% (BldA) [Mass fraction] 99 % Treatment Wstr Work Phone: [facility] 08-17-2021 15:49-0400 Body weight 101.61 kg NA Alli CUEVA-Juan Work Phone: [facility] 08-17-2021 15:49-0400 Diastolic blood pressure 60 mm[Hg] NA Alli PA-C Work Phone: [facility] 08-17-2021 15:49-0400 Heart rate 82 /min NA Carson PA-C Work Phone: [facility] 08-17-2021 15:49-0400 SaO2% (BldA) [Mass fraction] 96 % NA Carson PA-C Work Phone: [facility] 08-17-2021 15:49-0400 Systolic blood pressure 112 mm[Hg] NA Carson PA-C Work Phone: [facility] 08-15-2021 13:47-0400 Body temperature 98.49 [degF] Nhung Wallis 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 Phone: [facility] 08-15-2021 13:47-0400 Body weight 103.87 kg Nhung Wallis 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 Phone: [facility] 08-15-2021 13:47-0400 Diastolic blood pressure 50 mm[Hg] Nhung Wallis 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 Phone: [facility] 08-15-2021 13:47-0400 Heart rate 78 /min Nhung Wallis 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 Phone: [facility] 08-15-2021 13:47-0400 Systolic blood pressure 119 mm[Hg] Nhung Wallis 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 Phone: [facility] Encounters Encounter Date Encounter Type Care Provider Facility Start: 03-08-2023 Lu Oquendo on PA-C Work Phone: [facility] Procedures Date Procedure Procedure Detail Performing Clinician Start: 09-22-2021 Gluc bld gluc mntr d ev cleared fda spec home use Leelee Farrar 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 Phone: Start: 12-24-2019 Colonoscopy Steve Tapia MD Work Phone: Start: 06-12-2017 Mammography Steve Tapia MD Work Phone: Plan of Treatment Date Care Activity Detail Author Start: 12-23-2024 Colonoscopy COLONOSCOPY [facility] Start: 12-23-2024 COLORECTAL CANCER SCREENING COLORECTAL CANCER SCREENING [facility] Start: 12-23-2024 Screening for malign ant neoplasm of colon [facility] Start: 12-12-2023 Complete blood count Hemoglobin/Tone tocrit [facility] Start: 12-12-2023 HEM[facility] Start: 10-23-2023 HEMOGLOBIN/HEMATOCRIT HEMOGLOBIN/HEM [facility] Start: 09-01-2023 3 comp foot exam completed DIABETIC FOOT EXAM [facility] Start: 09-01-2023 ANNUAL PCP TEAM IGNITION MECHANIC JESSICA DISEASE VISIT ANNUAL PCP TEAM CHRONIC DISEASE VISIT [facility] Start: 09-01-2023 Diabetic foot examination Diabetic F oot Exam [facility] Start: 08-30-2023 Creatinine measurement Serum Creatin ine [facility] Start: 08-30-2023 Hepatitis B surface antibody level LDL CHOLESTEROL [facility] Start: 08-30-2023 SERUM CREATININE SERUM CREATININE [facility] Start: 08-16-2023 HEMOGLOBIN/HEMATOCRIT HEMOGLOBIN/HEM [facility] Start: 08-16-2023 SERUM CREATININE SERUM CREATININE Cl [facility] Start: 05-21-2023 ANNUAL PCP TEAM IGNITION MECHANIC JESSICA DISEASE VISIT ANNUAL PCP TEAM CHRONIC DISEASE VISIT [facility] Start: 05-18-2023 HEMOGLOBIN/HEMATOCRIT HEMOGLOBIN/HEM [facility] Start: 03-01-2023 Hemoglobin A1c measurement HbA1C [facility] Start: 03-01-2023 Hemoglobin A1c/Hemoglobin.total in Blood HBA1C [facility] Start: 02-21-2023 HEMOGLOBIN[facility]CR[facility] Start: 01-01-2023 ANNUAL PCP TEAM IGNITION MECHANIC JESSICA DISEASE VISIT ANNUAL PCP TEAM CHRONIC DISEASE VISIT [facility] Start: 01-01-2023 PNEUMOCOCCAL: 65+ (2 - PCV) PNEUMOCOCCAL: 65+ (2 - PCV) [facility] Immunizations Immunization Date Immunization Notes Care Provider Inderjit huggins 01-01-2022 COVID-19 booster vaccine, age 12+ yr, bivalent (PFIZER-BIONTdigedu) Nhung Wallis 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 Phone: [facility] 01-01-2022 influenza, high-dose , quadrivalent vaccine (FLUZONE HIGH DOSE QUADRIVALENT) Nhung Wallis 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 Phone: [facility] 01-01-2022 influenza virus vacc ine, unspecified formulation Cary Loredo 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 Phone: [facility] 03-30-2019 influenza, seasonal, injectable NA Carson PA-C Work Phone: [facility] 03-30-2019 influenza, seasonal, injectable, preservative free NA Carson PA-C Work Phone: [facility] 12-24-2016 influenza, injectabl e, quadrivalent, contains preservative Steve Verdugo MD Work Phone: [facility] Work Phone: 04-03-2016 influenza, injectabl e, quadrivalent, contains preservative Steve Verdugo MD Work Phone: [facility] Work Phone: 03-09-2015 influenza, injectabl e, quadrivalent, contains preservative Steve Verdugo MD Work Phone: [facility] 03-09-2015 influenza, seasonal, injectable NA Carson PA-C Work Phone: [facility] 01-25-2014 influenza, seasonal, injectable Steve Verdugo MD Work Phone: [facility] 03-25-2013 influenza, seasonal, injectable, preservative free NA Carson PA-C Work Phone: [facility] 03-23-2013 influenza virus vacc ine, unspecified formulation Steve Verdugo MD Work Phone: [facility] Work Phone: 09-24-2011 tetanus toxoid, redu alyx diphtheria toxoid, and acellular pertussis vaccine, adsorbed Steve Verdugo MD Work Phone: [facility] 07-21-2007 pneumococcal polysaccharide vaccine, 23 valent Steve Verdugo MD Work Phone: [facility] Work Phone: Payers Date Payer Category Payer Medicare [id number] 2013 Medicare MEDICARE MEDICAR E A AND B [id number] 2013-Present [id number] [place] [id number] Medicare [id number] 2013 Medicare MEDICARE MEDICAR E A AND B [id number] 2013-Present [phone] [place] [address] Medicare [id number] 2013 Medicare [id number] Medicare [id number] Social History Date Type Detail Facility Start: 11-25-2019 End: 01-01-2022 Tobacco smoking status NHIS Ex-smoker [facility] End: 04-05-1985 History of tobacco use Current smoker [facility] End: 04-05-1985 History of tobacco use Cigarette Smoker [facility] Start: 05-18-2021 End: 10-23-2022 Alcohol intake Current non-drinker of alcohol (finding) [facility] Start: 01-02-2012 End: 01-01-2022 Tobacco Comment Smoked for 6 months total. [facility] Start: 1955 Sex Assigned At Not on file [facility] Start: 1955 Sex Assigned At Female [facility] Start: 07-14-2021 End: 08-11-2021 Exposure to SARS-CoV-2 (event) Unable to assess [facility] Work Phone: Start: 09-02-2021 End: 03-07-2022 Exposure to SARS-CoV-2 (event) Not sure [facility] Work Phone: Start: 11-25-2019 End: 08-20-2022 Cigarettes smoked current (pack per day) - Reported 1 [facility] Start: 11-25-2019 End: 01-01-2022 Tobacco use and exposure Smokeless tobacco non-user [facility] Start: 08-20-2022 End: 10-23-2022 Tobacco use panel [facility] Adult Depression Screening Assessment 2 [facility] Start: 07-11-2021 Gender identity Identifies as female gender (finding) [facility] Start: 07-11-2021 Sexual orientation Heterosexual (jeanie mathews) [facility] Medical Equipment Procedure Code Equipment Code Equipment Origin al Text Equipment Identifier Dates Start: 04-27-2015 Goals Date Patient Goal Desired Activity /State Personal health goal Clinical Notes 04-08-2019 to 04-12-2023 Telephone Encounter - Ailyn Carson PA-C - 03/08/2023 4:36 PM ESTTelephone Encounter - Desirae Hernandez Ma - 03/08/2023 8:08 AM ESTTelephone Encounter - Stacie Higginbotham MA - 02/01/2023 8:04 AM EDT Note Date & Type Note Facility 04-12-2023 Note HNO ID: [id number] Author: ?, ?, ? Service: ? Author Type: ? Type: Progress Notes Filed: 04/12/2023 09:48 Note Text: Eye exam for Plaquenil toxicity received from [facility]. Exam date was 04/11/2023. Exam shows no signs of Plaquenil toxicity. Forms sent for scanning. [facility] 03-08-2023 Miscellaneous Notes Please schedule follow up and complete outstanding lab/ The following approved medication requests have been transmitted electronically. Requested Prescriptions Signed Prescriptions Disp Refills dulaglutide (TRULICITY) 3 mg/0.5 mL pen injector 12 Each 1 Sig: Inject 3 mg subcutaneously one time a week. Authorizing Provider: Ailyn CARSON PA-C Last office visit: 08/31/22 F/u scheduled: none Desirae Hernandez Ma documented in this encounter [facility] 02-18-2023 Miscellaneous Notes Patient has been identified by name and date of : Yes Requested Prescriptions Pending Prescriptions Disp Refills furosemide (LASIX) 20 mg tablet 90 tablet 1 Sig: Take 1 tablet by mouth two times a day. Patient may adjust from baseline 40 mg daily up to 40 mg twice daily based on weight gain greater than 3 pounds plus either increased shortness of breath or increased swelling. RX INSTRUCTIONS: Patient aware RX will be sent to pharmacy. No need to notify patient. Patient last office visit: 08/31/22 Patient next office visit: none scheduled Zuleyma Kern MA documented in this encounter [facility] 02-01-2023 Miscellaneous Notes Noted. documented in this encounter [facility] 02-01-2023 Miscellaneous Notes Patient has been identified by name and date of : Yes RX INSTRUCTIONS: Patient aware RX will be sent to pharmacy. No need to notify patient. Eye exam for Plaquenil toxicity received from [facility]. Exam date was 11/10/21. Exam shows no signs of Plaquenil toxicity. Patient is notified to have PLQ eye exam done JOURDAN and verbalized understanding. Fax results to [phone]. LAST APPOINTMENT: 06/11/2019 UPCOMING APPOINTMENT: Visit date not found LABS: Hemoglobin (g/dL) Date Value 12/11/2022 13.1 05/15/2021 11.1 Hematocrit (%) Date Value 12/11/2022 44.4 05/15/2021 37.7 WBC (k/uL) Date Value 12/11/2022 10.26 05/15/2021 11.79 Platelet Count (k/uL) Date Value 12/11/2022 265 05/15/2021 317 AST Date Value Ref Range Status 08/29/2022 21 13 - 35 U/L Final ALT Date Value Ref Range Status 08/29/2022 19 7 - 38 U/L Final Creatinine Date Value Ref Range Status 08/29/2022 1.85 (H) 0.58 - 0.96 mg/dL Final No results found for: URICACID Stacie Higginbotham MA documented in this encounter [facility] 12-11-2022 Note HNO ID: [id number] Author: Nhung Wallis APRN.TODD Service: ? Author Type: Nurse Practitioner Type: Progress Notes Filed: 12/12/2022 9:06 AM Note Text: Chief Complaint Patient presents with: Established Patient HPI: Nikki Carr is a 67 year old female who presents here today for follow up NETTA. Per Dr. Duong's previous note: H/o rheumatoid arthritis, lupus, hyperlipidemia, type 2 diabetes (neuropathy) and congestive heart failure. Received IV iron Dextran in 1998--former patient of Dr. Armijo. CBC in 2005 showed a hemoglobin of 10.8 g/dL , MCV was 65.2 platelet count of 433, ferritin low at 8.2, serum iron was low at 27. CBC and Rachel in 2007 was 9.4 g/dL MCV was 64.8, count 559. She underwent colonoscopy and EGD that showed colonic mucosa was entirely normal no bleeding sites were found. The body of the antrum appeared erythematous and changes consistent with chronic gastritis. She underwent repeat EGD February 01, 2010. There was mild erythema in the body and antrum of the stomach without ulcerations. Biopsy of duodenal mucosa showed no evidence of celiac disease. Hemoccult stools on February 14, 2010 were negative 3/3 specimens. Capsule endoscopy performed on March 22, 2010 showed no pathology in the small bowel. Minimally or edema in the prepyloric antrum was seen. She had been on oral iron for 2 years without any resolution in her anemia. She also she also had constipation and abdominal cramping from the oral iron. PREVIOUS THERAPY: 1) Iron dextran (2gm) 04/13/2010. Received iron sucrose infusions 06/2013, 03/2014 x8. EGD/Colonoscopy 07/2013-Dr. Xiong. F/u scopes in 3 years. Colonoscopy/EGD July 11, 2016. Next due in 5 years. Iron infusions-Early 2016. September 2017. Pt. received iron sucrose October 12-11/02/19. Last received iron sucrose November 2022. No new concerns today. Appetite: Ok. Wt. up 6# since last OV in August. Energy level: Not good. Denies fevers or recent illness. Resp:denies cough or sob Cardiac:denies chest pain/palpitations GI:denies abd pain, occ. nausea, denies vomiting, moving bowels regularly :denies dysuria/hematuria Extrem:chronic back pain-followed by CPM It's been a lot better. Neuro:+neuropathy to feet-stable Skin:denies rashes Heme:denies bleeding The ROS is otherwise negative. Past medical history, appointments, medications, allergies reviewed. No changes. EXAM: BP 106/69 Pulse 85 Temp 36.3 ?C (97.4 ?F) (Temporal) Wt 95.9 kg (211 lb 8 oz) LMP 12/07/2007 SpO2 98% BMI 35.67 kg/m? APPEARANCE Well appearing, alert, in no acute distress, well-hydrated, well nourished. HEART RRR with normal S1 and S2, no murmurs LUNG clear to auscultation LYMPH NODES No cervical lymphadenopathy, No supraclavicular lymphadenopathy, and No axillary lymphadenopathy. ABDOMEN bowel sounds normoactive, soft, non-tender EXTREMITIES No edema NEURO Awake, alert and oriented x 3, Normal gait, and No involuntary motions. SKIN Skin color, texture, turgor normal, no suspicious rashes or lesions LABS: Component Latest Ref Rng AND Units 05/18/2022 08/15/2022 10/22/2022 12/11/2022 WBC 3.70 - 11.00 k/uL 11.83 (H) 9.29 12.74 (H) 10.26 RBC 3.90 - 5.20 m/uL 5.07 4.90 4.58 4.94 Hemoglobin 11.5 - 15.5 g/dL 13.0 12.9 11.9 13.1 Hematocrit 36.0 - 46.0 % 43.8 41.6 39.6 44.4 MCV 80.0 - 100.0 fL 86.4 84.9 86.5 89.9 MCH 26.0 - 34.0 pg 25.6 (L) 26.3 26.0 26.5 MCHC 30.5 - 36.0 g/dL 29.7 (L) 31.0 30.1 (L) 29.5 (L) RDW-CV 11.5 - 15.0 % 16.8 (H) 17.2 (H) 15.9 (H) 17.1 (H) Platelet Count 150 - 400 k/uL 295 304 309 265 MPV 9.0 - 12.7 fL 10.4 9.9 10.1 10.2 Neut% % 74.7 71.1 68.3 70.9 Abs Neut (ANC) 1.45 - 7.50 k/uL 8.85 (H) 6.60 8.71 (H) 7.27 Lymph% % 19.1 18.2 20.3 17.3 Abs Lymph 1.00 - 4.00 k/uL 2.26 1.69 2.58 1.78 [place]% % 5.2 4.8 5.8 5.8 Abs [place] <0.87 k/uL 0.61 0.45 0.74 0.60 [place]% % 0.0 4.6 3.5 4.2 Abs Eosin <0.46 k/uL <0.03 0.43 0.44 0.43 Baso% % 0.3 0.5 0.5 0.6 Abs Baso <0.11 k/uL 0.03 0.05 0.06 0.06 Immature Gran % % 0.7 0.8 1.6 1.2 IMMATURE GRANS (ABS) <0.10 k/uL 0.08 0.07 0.21 (H) 0.12 (H) NRBC /100 WBC 0.0 0.0 0.0 0.0 Absolute nRBC <0.01 k/uL <0.01 <0.01 <0.01 <0.01 DTYPE Auto Auto Auto Auto Iron studies: Pending ASSESSMENT/PLAN: 1. Other iron deficiency anemia - ICD9: 280.8, ICD10: D50.[address] Duong's previous note 06/20/20: Assessment: -The patient is a 65-year-old female with a history of iron deficiency anemia. She has been through multiple endoscopies and capsule endoscopy with no particular evidence of significant GI bleed. She has received multiple parenteral courses of iron over the last 10 years. Most recently early June of this year. -Her ferritin was improved when last checked. She was since hospitalized for congestive heart failure. She has lost 21 pounds since of hospitalization through diuresis. -Still has mild anemia. -Incidentally, reviewed old CT images from [facility] (more content not included)... [facility] 12-11-2022 Miscellaneous Notes Scheduled with patient Check out comments: - Repeat CBC/iron studies as scheduled in February. - Move next OV out-Follow up in 6 months with CBC/iron studies-pending today's iron studies. - Pt. aware to call office with any questions/concerns. documented in this encounter [facility] 12-11-2022 History of Present illness Narrative Chief Complaint Patient presents with: Established Patient HPI: Nikki Carr is a 67 year old female who presents here today for follow up NETTA. Per Dr. Duong's previous note: H/o rheumatoid arthritis, lupus, hyperlipidemia, type 2 diabetes (neuropathy) and congestive heart failure. Received IV iron Dextran in 1998--former patient of Dr. Armijo. CBC in 2005 showed a hemoglobin of 10.8 g/dL , MCV was 65.2 platelet count of 433, ferritin low at 8.2, serum iron was low at 27. CBC and Rachel in 2007 was 9.4 g/dL MCV was 64.8, count 559. She underwent colonoscopy and EGD that showed colonic mucosa was entirely normal no bleeding sites were found. The body of the antrum appeared erythematous and changes consistent with chronic gastritis. She underwent repeat EGD February 01, 2010. There was mild erythema in the body and antrum of the stomach without ulcerations. Biopsy of duodenal mucosa showed no evidence of celiac disease. Hemoccult stools on February 14, 2010 were negative 3/3 specimens. Capsule endoscopy performed on March 22, 2010 showed no pathology in the small bowel. Minimally or edema in the prepyloric antrum was seen. She had been on oral iron for 2 years without any resolution in her anemia. She also she also had constipation and abdominal cramping from the oral iron. PREVIOUS THERAPY: 1) Iron dextran (2gm) 04/13/2010. Received iron sucrose infusions 06/2013, 03/2014 x8. EGD/Colonoscopy 07/2013-Dr. Xiong. F/u scopes in 3 years. Colonoscopy/EGD July 11, 2016. Next due in 5 years. Iron infusions-Early 2016. September 2017. Pt. received iron sucrose October 12-11/02/19. Last received iron sucrose November 2022. No new concerns today. Appetite: Ok. Wt. up 6# since last OV in August. Energy level: Not good. Denies fevers or recent illness. Resp:denies cough or sob Cardiac:denies chest pain/palpitations GI:denies abd pain, occ. nausea, denies vomiting, moving bowels regularly :denies dysuria/hematuria Extrem:chronic back pain-followed by CPM It's been a lot better. Neuro:+neuropathy to feet-stable Skin:denies rashes Heme:denies bleeding The ROS is otherwise negative. Past medical history, appointments, medications, allergies reviewed. No changes. EXAM: BP 106/69 Pulse 85 Temp 36.3 C (97.4 F) (Temporal) Wt 95.9 kg (211 lb 8 oz) LMP 12/07/2007 SpO2 98% BMI 35.67 kg/m APPEARANCE Well appearing, alert, in no acute distress, well-hydrated, well nourished. HEART RRR with normal S1 and S2, no murmurs LUNG clear to auscultation LYMPH NODES No cervical lymphadenopathy, No supraclavicular lymphadenopathy, and No axillary lymphadenopathy. ABDOMEN bowel sounds normoactive, soft, non-tender EXTREMITIES No edema NEURO Awake, alert and oriented x 3, Normal gait, and No involuntary motions. SKIN Skin color, texture, turgor normal, no suspicious rashes or lesions LABS: Component Latest Ref Rng & Units 05/18/2022 08/15/2022 10/22/2022 12/11/2022 WBC 3.70 - 11.00 k/uL 11.83 (H) 9.29 12.74 (H) 10.26 RBC 3.90 - 5.20 m/uL 5.07 4.90 4.58 4.94 Hemoglobin 11.5 - 15.5 g/dL 13.0 12.9 11.9 13.1 Hematocrit 36.0 - 46.0 % 43.8 41.6 39.6 44.4 MCV 80.0 - 100.0 fL 86.4 84.9 86.5 89.9 MCH 26.0 - 34.0 pg 25.6 (L) 26.3 26.0 26.5 MCHC 30.5 - 36.0 g/dL 29.7 (L) 31.0 30.1 (L) 29.5 (L) RDW-CV 11.5 - 15.0 % 16.8 (H) 17.2 (H) 15.9 (H) 17.1 (H) Platelet Count 150 - 400 k/uL 295 304 309 265 MPV 9.0 - 12.7 fL 10.4 9.9 10.1 10.2 Neut% % 74.7 71.1 68.3 70.9 Abs Neut (ANC) 1.45 - 7.50 k/uL 8.85 (H) 6.60 8.71 (H) 7.27 Lymph% % 19.1 18.2 20.3 17.3 Abs Lymph 1.00 - 4.00 k/uL 2.26 1.69 2.58 1.78 [place]% % 5.2 4.8 5.8 5.8 Abs [place] <0.87 k/uL 0.61 0.45 0.74 0.60 Eosin% % 0.0 4.6 3.5 4.2 Abs Eosin <0.46 k/uL <0.03 0.43 0.44 0.43 Baso% % 0.3 0.5 0.5 0.6 Abs Baso <0.11 k/uL 0.03 0.05 0.06 0.06 Immature Gran % % 0.7 0.8 1.6 1.2 IMMATURE GRANS (ABS) <0.10 k/uL 0.08 0.07 0.21 (H) 0.12 (H) NRBC /100 WBC 0.0 0.0 0.0 0.0 Absolute nRBC <0.01 k/uL <0.01 <0.01 <0.01 <0.01 DTYPE Auto Auto Auto Auto Iron studies: Pending ASSESSMENT/PLAN: 1. Other iron deficiency anemia - ICD9: 280.8, ICD10: D50.[address] Duong's previous note 06/20/20: Assessment: -The patient is a 65-year-old female with a history of iron deficiency anemia. She has been through multiple endoscopies and capsule endoscopy with no particular evidence of significant GI bleed. She has received multiple parenteral courses of iron over the last 10 years. Most recently early June of this year. -Her ferritin was improved when last checked. She was since hospitalized for congestive heart failure. She has lost 21 pounds since of hospitalization through diuresis. -Still has mild anemia. -Incidentally, reviewed old CT images from [facility]. 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 Calcified lesion that was stable in 2016 and April [address] imaging. I personally reviewed those 2 CT scans with 1 done in 2009. Was stable on CT imaging from 2016 to 2019. Plan: -Recheck of iron as well as other lab work to rule out other causes of anemia. -Repeat CBC/iron studies in 3 months. -Office visit in 6 months. - No new concerning findings on exam. - Longstanding NETTA. - Previously intolerant to oral iron. Responds with iron sucrose. - No bleeding issues. - Last received iron sucrose 2022. - Reviewed CBC with pt. - Repeat CBC/iron studies as scheduled in February. - Follow up in 6 months with CBC/iron studies-pending today's iron studies. - Pt. aware to call office with any questions/concerns. The patient indicates understanding of these issues and agrees with the plan. All documentation from previous visit of 08/20/22-Dr. Duong/myself was copied and pasted, documentation has been reviewed and edited as necessary for today's visit. Nhung Wallis APRN.CNP documented in this encounter [facility] 12-04-2022 Instructions Cary Loredo APRN.CNP - 12/04/2022 4:26 PM EDT Regan Jordan, It was good to talk with you today. Below is a summary of the plan that we discussed during your appointment for reference. Of course, if you have any questions or concerns do not hesitate to reach out to me via a message or call. Cary Powell APRN.CNP PLAN AND FOLLOW UP: YOU SHOULD SEEK IMMEDIATE MEDICAL ATTENTION AT THE NEAREST EMERGENCY DEPARTMENT OR BY CALLING 911, IF ANY OF THE FOLLOWING OCCURS: - New or worsening thoughts of harming yourself (suicidal thoughts) or others (homicidal thoughts) - Not feeling safe at home or worrying about your ability to remain safe at home If you are having thoughts of harming yourself or others, then you can: - Call the National Suicide Hotline at 8-321-AXXEBQP ( ) or 4-441-128-TALK (7781) - Text 4HOPE to 019546 Medication Update: Lamictal 25 mg - take 1 tablet once daily for 14 days, then take 2 tablets once daily for 14 days, then take 3 tablets once daily after that. Next appointment: January 08 at 1:30 pm in person. -- You may call the department appointment line at [phone] to schedule your appointment. -- Please call my nurse Vero at [phone] or send me a message in [employer] with any questions or concerns between appointments. documented in this encounter [facility] 12-04-2022 Note HNO ID: [id number] Author: Cary Loredo APRN.CNP Service: ? Author Type: Nurse Practitioner Type: Progress Notes Filed: 12/04/2022 4:30 PM Note Text: PSYC FOLLOW UP - PSYCHIATRIC PROGRESS NOTE DIAGNOSIS: MDD, recurrent, moderate Panic disorder with agoraphobia Chronic PTSD GAF: -60-51 Moderate symptoms or moderate difficulty in social, occupational or school functioning. TREATMENT PLAN: Restart Lamictal to address mood related symptoms. Follow up in 5 weeks. Medication Update: Lamictal 25 mg - take 1 tablet once daily for 14 days, then take 2 tablets once daily for 14 days, then take 3 tablets once daily after that. The effects and side effects of Lamictal were reviewed in detail with the patient. She is in agreement with the treatment plan and aware to reach out with any questions, concerns, or worsening of symptoms prior to the next appointment. Patient is aware of the rash side effect associated with Lamictal. CC: Follow up due to worsening depressive symptoms. I have communicated my name and active licensure. The patient's identity and physical location were verified at the time of this visit. Either the patient or their legal sales support representative has been informed of the risks and benefits of -- and alternatives to -- treatment through a remote evaluation and consents to proceed with the evaluation remotely. HPI: Nikki Carr is a 67 year old Female with a history of PTSD, MDD, panic disorder, and tremors presenting today for follow-up. Date of last visit: 03/07/2022 Plan from last visit: Continue Lamictal at the same dose. Encouraged patient to start individual psychotherapy with Dr. Ambrocio. Follow up in 3 months or sooner if needed Today Nikki shares that she was doing well but now I feel more depressed and sad . She stopped taking Lamictal around June. For a short time she did well. Then started noticed worsening of her mood. Couple months ago, her best friend of 20 years moved to [place] with her daughter. She misses doing things with the friend. She feel excluded from things in the family. Because of her health, she could not do things at the family reunion. Has stress of taking care of mother due to her health issues. Feels overwhelming. Continues to get iron infusions. Unsure if it is helpful for her fatigue. She continues to notice a worsening of her memory. Her pain has improved and she is no longer using medical marijuana. She does not need assistive devices to walk. Gets injections for nerve pain. She continues to be able to drive. 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 She is sleeping well at night. She has been eating appropriately and enjoys ice-cream. Interval Progress: Slightly worse Risks and benefits of the medication, including any black box warnings, were discussed with the patient. Social History: See HPI PATIENT DATA: Generalized Anxiety Disorder Scale (TUSHAR-7) TUSHAR - 7 SCORES 07/12/2021 08/30/2021 03/07/2022 TUSHAR-7 Score 9 8 12 (0-4) minimal anxiety, (5-9) mild anxiety, (10-14) moderate anxiety, (15-21) severe anxiety Patient Health Questionnaire (PHQ-9) PHQ-9 12/13/2021 03/07/2022 05/24/2022 Score 13 18 9 (0-4) minimal depression, (5-9) mild depression, (10-14) moderate depression, (15-19) moderately severe depression, (20-27) severe depression ROS: See HPI General: Negative for fever, malaise, unintentional weight loss HEENT: Negative for recent changes in vision or hearing, no nasal drainage Respiratory: Negative for cough, wheezing or SOB Cardiovascular: Negative for chest pain GI: Negative for nausea, vomiting, change in bowel habits MUSCULOSKELETAL: Negative for acute back or joint pain SKIN: Negative for rash NEURO: Negative for headaches, seizures, focal neurological deficits All other systems negative. VITAL SIGNS: BP (!) 108/48 (12/04/22 1401) Temp Pulse 74 (12/04/22 1401) Resp SpO2 MENTAL STATUS EXAMINATION: Appearance: Appropriately groomed, appears stated age Behavior: Appropriately engaged Psychomotor: No psychomotor agitation Cognition Level of Consciousness: Awake and alert. No fluctuation in wakefulness. Orientation: Grossly oriented Memory: Intact Attention/Concentration: Good Fund of Knowledge: Able to demonstrate an awareness of current events. Mood: Euthymic Affect: Congruent to mood Speech/Language: Appropriate tone, prosody, yen, phonetics, and syntax Thought Form: Goal-directed. No loosening of associations. Thought Content: No delusions noted or endorsed. Perceptual Disturbances: Did not appear to respond to auditory stimuli. Safety: Suicidal Ideations: No suicidal ideation, intent or plan. Homicidal Ideations: No homicidal ideation, intent or plan. Insight: Appropriate Judgment: Appropriate I spent a total of 28 minutes on the date of the service which included preparing to see the patient, [id number] patient care, (more content not included)... [facility] 12-04-2022 History of Present illness Narrative Images from the original note were not included. PSYC FOLLOW UP - PSYCHIATRIC PROGRESS NOTE DIAGNOSIS: MDD, recurrent, moderate Panic disorder with agoraphobia Chronic PTSD GAF: -60-51 Moderate symptoms or moderate difficulty in social, occupational or school functioning. TREATMENT PLAN: Restart Lamictal to address mood related symptoms. Follow up in 5 weeks. Medication Update: Lamictal 25 mg - take 1 tablet once daily for 14 days, then take 2 tablets once daily for 14 days, then take 3 tablets once daily after that. The effects and side effects of Lamictal were reviewed in detail with the patient. She is in agreement with the treatment plan and aware to reach out with any questions, concerns, or worsening of symptoms prior to the next appointment. Patient is aware of the rash side effect associated with Lamictal. CC: Follow up due to worsening depressive symptoms. I have communicated my name and active licensure. The patient's identity and physical location were verified at the time of this visit. Either the patient or their legal sales support representative has been informed of the risks and benefits of -- and alternatives to -- treatment through a remote evaluation and consents to proceed with the evaluation remotely. HPI: Nikki Carr is a 67 year old Female with a history of PTSD, MDD, panic disorder, and tremors presenting today for follow-up. Date of last visit: 03/07/2022 Plan from last visit: Continue Lamictal at the same dose. Encouraged patient to start individual psychotherapy with Dr. Ambrocio. Follow up in 3 months or sooner if needed Today Nikki shares that she was doing well but now I feel more depressed and sad . She stopped taking Lamictal around June. For a short time she did well. Then started noticed worsening of her mood. Couple months ago, her best friend of 20 years moved to [place] with her daughter. She misses doing things with the friend. She feel excluded from things in the family. Because of her health, she could not do things at the family reunion. Has stress of taking care of mother due to her health issues. Feels overwhelming. Continues to get iron infusions. Unsure if it is helpful for her fatigue. She continues to notice a worsening of her memory. Her pain has improved and she is no longer using medical marijuana. She does not need assistive devices to walk. Gets injections for nerve pain. She continues to be able to drive. 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 She is sleeping well at night. She has been eating appropriately and enjoys ice-cream. Interval Progress: Slightly worse Risks and benefits of the medication, including any black box warnings, were discussed with the patient. Social History: See HPI PATIENT DATA: Generalized Anxiety Disorder Scale (TUSHAR-7) TUSHAR - 7 SCORES 07/12/2021 08/30/2021 03/07/2022 TUSHAR-7 Score 9 8 12 (0-4) minimal anxiety, (5-9) mild anxiety, (10-14) moderate anxiety, (15-21) severe anxiety Patient Health Questionnaire (PHQ-9) PHQ-9 12/13/2021 03/07/2022 05/24/2022 Score 13 18 9 (0-4) minimal depression, (5-9) mild depression, (10-14) moderate depression, (15-19) moderately severe depression, (20-27) severe depression ROS: See HPI General: Negative for fever, malaise, unintentional weight loss HEENT: Negative for recent changes in vision or hearing, no nasal drainage Respiratory: Negative for cough, wheezing or SOB Cardiovascular: Negative for chest pain GI: Negative for nausea, vomiting, change in bowel habits MUSCULOSKELETAL: Negative for acute back or joint pain SKIN: Negative for rash NEURO: Negative for headaches, seizures, focal neurological deficits All other systems negative. VITAL SIGNS: BP (!) 108/48 (12/04/22 1401) Temp Pulse 74 (12/04/22 1401) Resp SpO2 MENTAL STATUS EXAMINATION: Appearance: Appropriately groomed, appears stated age Behavior: Appropriately engaged Psychomotor: No psychomotor agitation Cognition Level of Consciousness: Awake and alert. No fluctuation in wakefulness. Orientation: Grossly oriented Memory: Intact Attention/Concentration: Good Fund of Knowledge: Able to demonstrate an awareness of current events. Mood: Euthymic Affect: Congruent to mood Speech/Language: Appropriate tone, prosody, yen, phonetics, and syntax Thought Form: Goal-directed. No loosening of associations. Thought Content: No delusions noted or endorsed. Perceptual Disturbances: Did not appear to respond to auditory stimuli. Safety: Suicidal Ideations: No suicidal ideation, intent or plan. Homicidal Ideations: No homicidal ideation, intent or plan. Insight: Appropriate Judgment: Appropriate I spent a total of 28 minutes on the date of the service which included preparing to see the patient, [id number] patient care, completing clinical documentation, and counseling and educating the patient/family/caregiver, ordering medications/labs. Cary Loredo APRN.TODD December 04, 2022 2:09 PM This note was partially generated using [employer] voice recognition system. Note was reviewed for accuracy. There may be minor misspellings or grammar miscues with [employer] voice recognition. documented in this encounter [facility] 11-19-2022 Miscellaneous Notes Lm for patient to call to schedule FU then refills will be sent accordingly. documented in this encounter [facility] 10-28-2022 Miscellaneous Notes Called pt to reschedule iron treatment: LM and sent MC documented in this encounter [facility] 10-24-2022 Miscellaneous Notes Patient scheduled and Start email sent. TIBC increased with declining ferritin indicating evolving iron deficiency. Please schedule for 5 doses of iron sucrose. OV/CBC/iron studies with Nhung about 4 weeks after completing iron. Alexis Duong DO [facility] Care Coordination FOLLOW-UP NOTE iron deficiency anemia Last iron sucrose 09/2021 Patient called back. Patient stated for the past 1-2 weeks she has felt worn down and it took all I could do to walk in and walk back out yesterday for labs. Patient stated she rates fatigue 09/15, has SOB sometimes x 1 week. Patient denies chest pain/pressure, cough, irregular heartbeats, fever, chills, headache, urinary symptoms, or dizziness. Patient had a hard time stating how much fluid she drinks but thinks is 30-40+ ounces. Patient is asking for her recent labs to be evaluated to see if she needs iron sucrose. Care Coordination Plan: Will follow up after speaking to Dr. Rhoda Toro RN October 23, 2022 [facility] Care Coordination FOLLOW-UP NOTE Care Coordination Plan: Called patient, no answer, left a VM requesting a call back. Abiola Toro RN October 23, 2022 documented in this encounter [facility] 10-08-2022 Miscellaneous Notes Patient has been identified by name and date of : Yes Patient phones for refill(s): Requested Prescriptions Pending Prescriptions Disp Refills sucralfate (CARAFATE) 1 gram tablet 90 tablet 5 Sig: Take 1 tablet by mouth three times daily before meals. Date of last office visit in primary care: [facility] 08/31/22 NOV not scheduled Last 2 Encounter Wt Readings: Date: Wt: 08/31/2022 93 kg (205 lb) 08/20/2022 93 kg (205 lb) Please advise. Thank you. MACIEJ Sauceda documented in this encounter [facility] 09-20-2022 Miscellaneous Notes Patient last visit with PCP 08/31/22 Follow up appointment scheduled none Janine Campoverde Ma documented in this encounter [facility] 09-11-2022 Miscellaneous Notes Patient has been identified by name and date of : Yes Patient phones for refill(s): Requested Prescriptions Pending Prescriptions Disp Refills cholecalciferol, Vitamin D3, (VITAMIN D3) 1,250 mcg (50,000 unit) cap capsule 4 capsule 11 Sig: Take 1 capsule by mouth one time a week. Date of last office visit in primary care: [facility] 08/31/22 No appointment scheduled Last 2 Encounter Wt Readings: Date: Wt: 08/31/2022 93 kg (205 lb) 08/20/2022 93 kg (205 lb) Please advise. Thank you. MACIEJ Sauceda documented in this encounter [facility] 08-31-2022 Note HNO ID: [id number] Author: Ailyn Carson PA-C Service: ? Author Type: Physician Audit Specialist Type: Progress Notes Filed: 08/31/2022 12:45 PM Note Text: 67 year old female with c/o blood sugar, body weakness. Concerned about labs particularly cholesterol. Unsure about period with fractured arm and extended hospitalization: doesn't recall events. Feels may have not taken pravastatin during that period. Also thinks blood sugars are high so has been taking extra metformin. Still has a bad knee: 2 cortisone shots. Seeing [facility] Discussed gel shots. Hx of encephalopathy Chronic heart failure with preserved ejection fracture Diastolic dysfunction, left ventricle (primary encounter diagnosis) Mixed hyperlipidemia Cardiovascular interval hx: 09/22/2021 EKG: NSR, 1st degree AV block VR 63 06/04/2020 echo: EF 70%, small pericardial effusion 06/01/2020-06/03/2020 hospitalized acute SOB, 10lb weight gain dx acute on chronic CHF, FRANSISCA, RBBB 06/04/2018 echocardiogram [facility] Dr. Ocampo: LV size and thickness WNL, EF 65%, normal diastole, no regional wall motion defects. RV mildly dilated right ventricle, normal systolic function. Atria bilaterally normal. No significant valvular disease, no aortic valvular vegetation. No change from 04/18/2013. 10/24/2017 stress echo: ejection fraction 60%, negative for ischemia, no anginal symptoms, rare PACs and PVCs during dobutamine, normal response to blood pressure, final LVEF 75% 06/04/2018 echocardiogram [facility] Dr. Ocampo: LV size and thickness WNL, EF 65%, normal diastole, no regional wall motion defects. RV mildly dilated right ventricle, normal systolic function. Atria bilaterally normal. No significant valvular disease, no aortic valvular vegetation. No change from 04/18/2013. 10/24/2017 stress echo: ejection fraction 60%, negative for ischemia, no anginal symptoms, rare PACs and PVCs during dobutamine, normal response to blood pressure, final LVEF 75% Current meds: Pravachol 20mg daily HS Lasix 40mg daily Pravachol 20mg daily HS Use of NTG: n/a Chest pain, arm, jaw pain, neck, or upper back pain suggestive of angina: No. SOB: No Dyspnea with exertion: not active due to pain orthopnea: No racing or irregular heartbeats: No palpitations: No syncopal sx: No Unexplainable fatigue Yes Leg swelling: No Nausea: No diaphoresis: No Heartburn: No Claudication: No, about 25 steps and then pain, has to take breaks from standing more the a few minutes. Smoking: No Following Low cholesterol, high fiber diet? Yes If on statin: muscle aches? No If on statin: GI sx or diarrhea? No Additional history none. Component Latest Ref Rng AND Units 05/18/2022 08/15/2022 WBC 3.70 - 11.00 k/uL 11.83 (H) 9.29 RBC 3.90 - 5.20 m/uL 5.07 4.90 Hemoglobin 11.5 - 15.5 g/dL 13.0 12.9 Hematocrit 36.0 - 46.0 % 43.8 41.6 MCV 80.0 - 100.0 fL 86.4 84.9 MCH 26.0 - 34.0 pg 25.6 (L) 26.3 MCHC 30.5 - 36.0 g/dL 29.7 (L) 31.0 RDW-CV 11.5 - 15.0 % 16.8 (H) 17.2 (H) Platelet Count 150 - 400 k/uL 295 304 MPV 9.0 - 12.7 fL 10.4 9.9 Neut% % 74.7 71.1 Abs Neut (ANC) 1.45 - 7.50 k/uL 8.85 (H) 6.60 Lymph% % 19.1 18.2 Abs Lymph 1.00 - 4.00 k/uL 2.26 1.69 [place]% % 5.2 4.8 Abs [place] <0.87 k/uL 0.61 0.45 Eosin% % 0.0 4.6 Abs Eosin <0.46 k/uL <0.03 0.43 Baso% % 0.3 0.5 Abs Baso <0.11 k/uL 0.03 0.05 Immature Gran % % 0.7 0.8 IMMATURE GRANS (ABS) <0.10 k/uL 0.08 0.07 NRBC /100 WBC 0.0 0.0 Absolute nRBC <0.01 k/uL <0.01 <0.01 DTYPE Auto Auto Component Latest Ref Rng AND Units 04/14/2020 08/29/2022 Cholesterol, Total <200 mg/dL 135 220 (H) Triglyceride <150 mg/dL 141 285 (H) HDL Cholesterol >39 mg/dL 43 40 LDL Cholesterol <100 mg/dL 64 123 (H) Non HDL Cholesterol <130 mg/dL 92 180 (H) Fasting Time hrs Unknown 13 VLDL Cholesterol <30 mg/dL 28 57 (H) TC:HDL Ratio <5.10 3.14 5.50 (H) LDL:HDL Ratio <2.54 1.49 3.08 (H) Type 2 diabetes mellitus with diabetic neuropathy, with long-term current use of insulin (hcc) Renal insufficiency Current medications: Dulaglutide 1.5mg SC weekly Jardiance 10mg daily Metformin ER 1 tab twice a day with meals Taking medication as directed consistently? Yes Medical Issues / Complications: hypertension, hyperlipidemia, and cardiovascular disease Checking blood sugars at home? Off and on. Random blood sugars [phone] Watching diet? What diet? . Doesn't eat much. Physical Activity: Sedentary Hypoglycemic spells? No Any visual disturbance? No. 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 No New numbness, tingling or loss of sensation? No Any recent foot problems, sores or rashes? No Any recent or sudden weight loss? No Change in urination? No. If yes: Any recent illness? No Last eye exam: up to date Last foot exam: up to date Hemoglobin A1C Date Value 08/29/2022 6.1 % 10/03/2021 6.4 % 02/07/2021 5.5 % 10/31/2020 5.5 04/14/2020 5.8 % ) (more content not included)... [facility] 08-24-2022 Note HNO ID: [id number] Author: Kat Russo PA-C Service: ? Author Type: Physician Audit Specialist Type: Progress Notes Filed: 09/01/2022 12:51 PM Note Text: FOLLOW UP VISIT - ENDOSCOPY NAME: Nikki [facility] NO.: [id number] DATE OF SERVICE: 08/24/2022 : 1955 REFERRING PHYSICIAN: Ailyn Carson PA-C Nikki is a patient I am following for change in bowel habits, as well as GERD symptoms. Dr. Vee performed upper and lower endoscopy on 08/16/22 at [facility]. The patient was found to have mild gastritis, irregular Z-line, small hiatal hernia, hemorrhoids. Patient notes no new complaints since procedure, but does continue to note frequent acid reflux. Pathology report was delayed and was unfortunately unavailable for review. during time of patient's office visit. Apologized to patient for this delay and discussed that our office would reach out once results available. Lab was contacted by our office to inquire and expedite results release. Pathology report which became available in interim since patient visit demonstrated: FINAL DIAGNOSIS A. Stomach, antrum, biopsy: - Mild chronic inactive gastritis. - No morphologic evidence of Helicobacter pylori organisms. B. Esophagogastric junction, biopsy: - Esophageal squamous mucosa with mild chronic inflammation. - Gastric mucosa with focal acute inflammation. See comment. Diagnosis Comment B. A Helicobacter pylori immunostain performed on part B is negative. No charge for visit as results were not available to review with patient at time of her visit [facility] 08-20-2022 Note HNO ID: [id number] Author: Tyler Dixon APRN.TODD Service: ? 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 Author Type: Nurse Practitioner Type: Progress Notes Filed: 08/22/2022 2:31 PM Note Text: Chief Complaint Patient presents with: Established Patient HPI: Nikki Carr is a 67 year old female who presents here today for follow up anemia. Per Dr. Duong's previous note: H/o rheumatoid arthritis, lupus, hyperlipidemia, type 2 diabetes (neuropathy) and congestive heart failure. Received IV iron Dextran in 1998--former patient of Dr. Armijo. CBC in 2005 showed a hemoglobin of 10.8 g/dL , MCV was 65.2 platelet count of 433, ferritin low at 8.2, serum iron was low at 27. CBC and Rachel in 2007 was 9.4 g/dL MCV was 64.8, count 559. She underwent colonoscopy and EGD that showed colonic mucosa was entirely normal no bleeding sites were found. The body of the antrum appeared erythematous and changes consistent with chronic gastritis. She underwent repeat EGD February 01, 2010. There was mild erythema in the body and antrum of the stomach without ulcerations. Biopsy of duodenal mucosa showed no evidence of celiac disease. Hemoccult stools on February 14, 2010 were negative 3/3 specimens. Capsule endoscopy performed on March 22, 2010 showed no pathology in the small bowel. Minimally or edema in the prepyloric antrum was seen. She had been on oral iron for 2 years without any resolution in her anemia. She also she also had constipation and abdominal cramping from the oral iron. PREVIOUS THERAPY: 1) Iron dextran (2gm) 04/13/2010. Received iron sucrose infusions 06/2013, 03/2014 x8. EGD/Colonoscopy 07/2013-Dr. Xiong. F/u scopes in 3 years. Colonoscopy/EGD July 11, 2016. Next due in 5 years. Iron infusions-Early 2016. September 2017. Pt. received iron sucrose October 12-11/02/19. Last received iron sucrose September 2021. Scopes done last week by Dr. Vee. Path pending. Appetite: Ok. Wt. down 14# since She was started on trulicity. Energy level: Fair-Good. Denies fevers or recent illness. Resp:denies cough or sob Cardiac:denies chest pain/palpitations GI:denies abd pain, n/v, moving bowels regularly :denies dysuria/hematuria Extrem:chronic back pain-followed by CPM-using medical marijuana Neuro:+neuropathy to feet Skin:denies rashes Heme:denies bleeding The ROS is otherwise negative. Past medical history, appointments, medications, allergies reviewed. No changes. EXAM: BP 90/64 Pulse 87 Temp 36.6 ?C (97.9 ?F) Ht 164 cm (5' 4.57 ) Wt 93 kg (205 lb) LMP 12/07/2007 SpO2 96% BMI 34.57 kg/m? APPEARANCE Well appearing, alert, in no acute distress, well-hydrated, well nourished. HEART RRR with normal S1 and S2, no murmurs LUNG clear to auscultation LYMPH NODES No cervical lymphadenopathy, No supraclavicular lymphadenopathy, and No axillary lymphadenopathy. ABDOMEN bowel sounds normoactive, soft, non-tender EXTREMITIES No edema NEURO Awake, alert and oriented x 3, Normal gait, and No involuntary motions. SKIN Skin color, texture, turgor normal, no suspicious rashes or lesions LABS: Component Latest Ref Rng AND Units 08/15/2021 02/21/2022 05/18/2022 08/15/2022 WBC 3.70 - 11.00 k/uL 9.20 10.56 11.83 (H) 9.29 RBC 3.90 - 5.20 m/uL 3.75 (L) 4.51 5.07 4.90 Hemoglobin 11.5 - 15.5 g/dL 9.8 (L) 11.9 13.0 12.9 Hematocrit 36.0 - 46.0 % 32.5 (L) 38.9 43.8 41.6 MCV 80.0 - 100.0 fL 86.7 86.3 86.4 84.9 MCH 26.0 - 34.0 pg 26.1 26.4 25.6 (L) 26.3 MCHC 30.5 - 36.0 g/dL 30.2 (L) 30.6 29.7 (L) 31.0 RDW-CV 11.5 - 15.0 % 16.6 (H) 17.5 (H) 16.8 (H) 17.2 (H) Platelet Count 150 - 400 k/uL 243 287 295 304 MPV 9.0 - 12.7 fL 9.9 10.1 10.4 9.9 Neut% % 76.2 76.3 74.7 71.1 Abs Neut (ANC) 1.45 - 7.50 k/uL 7.01 8.06 (H) 8.85 (H) 6.60 Lymph% % 11.4 14.4 19.1 18.2 Abs Lymph 1.00 - 4.00 k/uL 1.05 1.52 2.26 1.69 [place]% % 4.9 4.1 5.2 4.8 Abs [place] <0.87 k/uL 0.45 0.43 0.61 0.45 Eosin% % 6.0 3.8 0.0 4.6 Abs Eosin <0.46 k/uL 0.55 (H) 0.40 <0.03 0.43 Baso% % 0.4 0.5 0.3 0.5 Abs Baso <0.11 k/uL 0.04 0.05 0.03 0.05 Immature Gran % % 1.1 0.9 0.7 0.8 IMMATURE GRANS (ABS) <0.10 k/uL 0.10 (H) 0.10 (H) 0.08 0.07 NRBC /100 WBC 0.0 0.0 0.0 0.0 Absolute nRBC <0.01 k/uL <0.01 <0.01 <0.01 <0.01 DTYPE Auto Auto Auto Auto Component Latest Ref Rng AND Units 08/15/2021 02/21/2022 05/18/2022 08/15/2022 Ferritin 14.7 - 205.1 ng/mL 78.2 106.0 98.6 94.5 Component Latest Ref Rng AND Units 08/15/2021 02/21/2022 05/18/2022 08/15/2022 Iron 41 - 186 ug/dL 39 (L) 51 62 43 TIBC 232 - 386 ug/dL 337 321 354 335 Transferrin Saturation 15.0 - 57.0 % 12 (L) 15.9 17.5 12.8 (L) ASSESSMENT/PLAN: 1. Other iron deficiency anemia - ICD9: 280.8, ICD10: D50.[address] Duong's previous note 06/20/20: Assessment: -The patient is a 65-year-old female with a history of iron deficiency anemia. She has been through multiple endoscopies and capsule endoscopy with no particular evidence of significant GI bleed. She has received multiple pa (more content not included)... [facility] 06-20-2022 Miscellaneous Notes PA approved 05/20/22-06/19/23 Faxed approval to pharmacy and patient left message on Janine Campoverde Ma Prior Authorization has been completed online at [employer] for [employer], will await response. ANDINO- [id number] Please keep encounter open until final decision has been received and documented from insurance company. 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 Author Type: Nurse Practitioner Type: Progress Notes Filed: 06/08/2022 12:16 PM Note Text: Nikki is a 67 year old who presents for an annual gynecologic exam with complaints, vaginal itching and vulvar irritation. Believes it may be a yeast infection. Started over a year ago, symptoms of itching and burning are constant aside from brief relief from OTC creams. Unsure about increase in discharge due to frequent vaginal cream use. Not sexually active, no concerns for STDs. Patient is Diabetic with blood sugars that are often high. Only takes Metformin when she feels like her sugars are high. Postmenopausal: Yes since 2007 HRT use: No. Last Pap: 11/07/2015 normal HPV: negative History of abnormal pap: No Last mammogram: Patient declines Mammograms History of abnormal mammogram: NA Sexually active: No History of STDS: None Time with current partner: No current partner Pain with intercourse: No Postcoital bleeding: No Hot flashes: No Night sweats: No Vaginal dryness: No Mood swings: No Insomnia: No Exercise: No Diet: regular Seatbelt use: Yes OB History T3 L3 SAB0 IAB0 Ectopic0 Multiple0 Live Births0 Home Health Care Coordinator History LMP: 12/07/2007, Postmenopausal Age at Menarche: Age at First : Age at Menopause: Home Health Care Coordinator History Comments: Sexual Activity: Not Currently; No partner data on record; Contraception: Tubal Ligation PAST MEDICAL HISTORY Diagnosis Date Aspiration pneumonia (HCC) 04/2019 [facility] DDD (degenerative disc disease) Depression Diabetes mellitus without mention of complication Fibromyalgia Hyperlipidemia Iron deficiency anemia, unspecified Dr Duong Lupus ([facility]) Obesity Vitamin D deficiency 2012 PAST SURGICAL HISTORY Procedure Laterality Date ARTHRP KNE CONDYLEANDPLATU MEDIALANDLAT COMPARTMENTS Left 02/25/2017 Dr. Eric Jones CARDIAC CATH 2007 no stenosis minimal plaque CARPAL TUNNEL bilateral CHOLECYSTECTOMY 1998 Cholecystectomy COLONOSCOPY AND POLYPECTOMY 07/27/2013 TA x 2, hyperplastic x 5. Repeat in 3y. COLONOSCOPY FLX DX W/COLLJ SPEC WHEN PFRMD 08/15/2007 Repeat in COLONOSCOPY FLX DX W/COLLJ SPEC WHEN PFRMD 07/11/2016 Colonoscopy COLONOSCOPY SCREENING 12/24/2019 EGD TRANSORAL BIOPSY SINGLE/MULTIPLE 08/15/2007 ESOPHAGOGASTRODUODENOSCOPY TRANSORAL DIAGNOSTIC 02/01/2010 EGD ESOPHAGOGASTRODUODENOSCOPY TRANSORAL DIAGNOSTIC 07/27/2013 gastritis ESOPHAGOGASTRODUODENOSCOPY TRANSORAL DIAGNOSTIC 07/11/2016 EGD ESOPHAGOGASTRODUODENOSCOPY TRANSORAL DIAGNOSTIC 12/24/2019 EGD LIG/TRNSXJ FLP TUBE ABDL/VAG APPR UNI/BI 1983 Tubal ligation LUMBAR DISCOGRAM OPEN REPAIR OF ROTATOR CUFF ACUTE 12/31/2008 Rotator cuff repair, right PAST SURGICAL HISTORY OF 2001 RIGHT ANKLE ORIF PAST SURGICAL HISTORY OF low back injections PAST SURGICAL HISTORY OF 04/30/2011 Anterior lumbar interbody fusion L4-5 L5-S1 PAST SURGICAL HISTORY OF 05/30/2011 Posterior lumbar fusion S SPINAL CORD STIM/IMPLANTN 01/2014 FAMILY HISTORY Problem Relation Age of Onset Hypertension Mother Hyperlipidemia Mother Cancer Father metastatic Diabetes Maternal Grandmother Heart Failure Maternal Grandfather Thyroid No Family History Factor 5 Leiden No Family History Stroke No Family History Blood Clots No Family History Auto-Immune Disorder No Family History Systemic Lupus Erythematosus No Family History Multiple Sclerosis No Family History Coronary Artery Disease No Family History Bipolar disorder No Family History Schizophrenia No Family History SOCIAL HISTORY Social History Tobacco Use Smoking status: Former Packs/day: 1.00 Years: 0.50 Pack years: 0.50 Types: Cigarettes Quit date: 04/05/1985 Years since quittin.1 Smokeless tobacco: Never Tobacco comments: Smoked for 6 months total. Vaping Use Vaping Use: Never used Substance Use Topics Alcohol use: No Drug use: No REVIEW OF SYSTEMS Abdomen: No abdominal pain, nausea, vomiting, diarrhea, or constipation. No bloating, early satiety, indigestion, or increased flatulence. Bladder: No dysuria, gross hematuria, urinary frequency, urinary urgency, or incontinence Breast: No breast lumps, nipple d/c, overlying skin changes, redness or skin retraction Allergies and current medication updated:Yes EXAM: Ht 5' 4 (1.63m) Wt 205 lb 6.4 oz (93.2kg) LMP 12/07/2007 BMI 35.24 kg/(m2). GENERAL: pleasant, female in no apparent distress HEENT: Normocephalic, atraumatic, mucus membranes moist, and no lesions NECK: Supple, full range of motion, no adenopathy, and thyroid normal DERMATOLOGY: Normal, without lesions, non-icteric, and non-hirsute BREAST: soft, non-tender, symmetric, no dominant mass, normal nipple-areolar complex, no lymphadenopathy, and no nipple discharge CHEST: Normal inspiratory effort (more content not included)... [facility] 06-07-2022 Note HNO ID: [id number] Author: Kat Russo PA-C Service: ? Author Type: Physician Audit Specialist Type: Progress Notes Filed: 06/19/2022 9:20 AM Note Text: HISTORY AND PHYSICAL Nikki Farooq Bruno 1955 REFERRING PHYSICIAN: Ailyn Carson PA-C CHIEF COMPLAINT: Consult (Colonoscopy consult) HPI: The patient is a 67 year old female referred for endoscopy. Nikki notes a recent change in bowel habits with increased straining and a decrease in caliber of stool Noted some bright red blood with BMs which has resolved. Patient denies any change in bowel habits, weight changes, black tarry stools or abdominal pain. Denies family history of colon issues. The patient NOTES issues with GERD despite taking PPI and carafate, and watching diet. Nikki has undergone prior endoscopy. Most recent colonoscopy and EGD 07/11/[address] Xiong. No concerning findings at that time. Repeat colonoscopy was recommended in 5 years based on a previous history of polyps. PAST MEDICAL HISTORY Diagnosis Date Aspiration pneumonia (HCC) 04/2019 [facility] DDD (degenerative disc disease) Depression Diabetes mellitus without mention of complication Fibromyalgia Hyperlipidemia Iron deficiency anemia, unspecified Dr Duong Lupus (HCC) Obesity Vitamin D deficiency 2012 PAST SURGICAL HISTORY Procedure Laterality Date ARTHRP KNE CONDYLEANDPLATU MEDIALANDLAT COMPARTMENTS Left 02/25/2017 Dr. Eric Jones CARDIAC CATH 2007 no stenosis minimal plaque CARPAL TUNNEL bilateral CHOLECYSTECTOMY 1997 Cholecystectomy COLONOSCOPY AND POLYPECTOMY 07/27/2013 TA x 2, hyperplastic x 5. Repeat in 3y. COLONOSCOPY FLX DX W/COLLJ SPEC WHEN PFRMD 08/15/2007 Repeat in COLONOSCOPY FLX DX W/COLLJ SPEC WHEN PFRMD 07/11/2016 Colonoscopy COLONOSCOPY SCREENING 12/24/2019 EGD TRANSORAL BIOPSY SINGLE/MULTIPLE 08/15/2007 ESOPHAGOGASTRODUODENOSCOPY TRANSORAL DIAGNOSTIC 02/01/2010 EGD ESOPHAGOGASTRODUODENOSCOPY TRANSORAL DIAGNOSTIC 07/27/2013 gastritis ESOPHAGOGASTRODUODENOSCOPY TRANSORAL DIAGNOSTIC 07/11/2016 EGD ESOPHAGOGASTRODUODENOSCOPY TRANSORAL DIAGNOSTIC 12/24/2019 EGD LIG/TRNSXJ FLP TUBE ABDL/VAG APPR UNI/BI 1982 Tubal ligation LUMBAR DISCOGRAM OPEN REPAIR OF ROTATOR CUFF ACUTE 12/31/2008 Rotator cuff repair, right PAST SURGICAL HISTORY OF 2001 RIGHT ANKLE ORIF PAST SURGICAL HISTORY OF low back injections PAST SURGICAL HISTORY OF 04/30/2011 Anterior lumbar interbody fusion L4-5 L5-S1 PAST SURGICAL HISTORY OF 05/30/2011 Posterior lumbar fusion S SPINAL CORD STIM/IMPLANTN 01/2014 Current Outpatient Medications Medication Sig [START ON 08/07/2022] pravastatin (PRAVACHOL) 20 mg tablet Take 1 tablet by mouth daily at bedtime. omeprazole (PRILOSEC) 40 mg capsule Take 1 capsule by mouth once daily. hydrOXYchloroQUINE (PLAQUENIL) 200 mg tablet Take 1 tablet by mouth once daily. empagliflozin (JARDIANCE) 10 mg tablet Take 1 tablet by mouth once daily. Take 1 tablet once daily in the morning sucralfate (CARAFATE) 1 gram tablet Take 1 tablet by mouth three times daily before meals. furosemide (LASIX) 20 mg tablet Take 1 tablet by mouth twice daily. Patient may adjust from baseline 40 mg daily up to 40 mg twice daily based on weight gain greater than 3 pounds plus either increased shortness of breath or increased swelling. lamoTRIgine (LAMICTAL) 100 mg tablet Take 1 tablet by mouth twice daily. dulaglutide (TRULICITY) 1.5 mg/0.5 mL pen injector Inject 1.5 mg subcutaneously one time a week. Inject once per week. Discard Pen After cholecalciferol, Vitamin D3, (VITAMIN D3) 1,250 mcg (50,000 unit) cap capsule Take 1 capsule by mouth one time a week. nystatin (MYCOSTATIN) powder Apply 1 application to affected area twice daily. metFORMIN ER (GLUCOPHAGE XR) 500 mg 24 hr tablet Take 1 tablet by mouth twice daily with meals. Currently on hold but may restart if needed (Patient taking differently: Take 500 mg by mouth twice daily with meals. PRN) Insulin [place], Disposable, (PEN NEEDLES) 31 gauge x 1/4 ndle Once a day for insulin usage. blood sugar diagnostic (BLOOD GLUCOSE TEST) test strip Test blood sugar(s) 3 times daily. Dx: Type 2 DM - Uncontrolled E11.65 Insulin: Yes blood sugar diagnostic (FREESTYLE LITE STRIPS) test strip Test blood sugar(s) 3 times daily. Dx: 250.02. Insulin: Yes gabapentin (NEURONTIN) 300 mg capsule Take 1 capsule by mouth three times daily. No current facility-administered medications for this visit. ALLERGIES: Patient has no known allergies. PERSONAL HISTORY: Social History Tobacco Use Smoking status: Former Packs/day: 1.00 Years: 0.50 Pack years: 0.50 Types: Cigarettes Quit date: 04/05/1985 Years since quittin.1 Smokeless tobacco: Never Tobacco comments: Smoked for 6 months total. Vaping Use Vaping Use: Never used Substance Use Topics Alcohol use: No Drug use: No FAMILY HISTORY: FA (more content not included)... [facility] 06-07-2022 Miscellaneous Notes Addended by: ROBERTA LANZA on: 06/07/2022 12:08 PM Modules accepted: Orders documented in this encounter [facility] 06-07-2022 History of Present illness Narrative Nikki is a 67 year old who presents for an annual gynecologic exam with complaints, vaginal itching and vulvar irritation. Believes it may be a yeast infection. Started over a year ago, symptoms of itching and burning are constant aside from brief relief from OTC creams. Unsure about increase in discharge due to frequent vaginal cream use. Not sexually active, no concerns for STDs. Patient is Diabetic with blood sugars that are often high. Only takes Metformin when she feels like her sugars are high. Postmenopausal: Yes since 2007 HRT use: No. Last Pap: 11/07/2015 normal HPV: negative History of abnormal pap: No Last mammogram: Patient declines Mammograms History of abnormal mammogram: NA Sexually active: No History of STDS: None Time with current partner: No current partner Pain with intercourse: No Postcoital bleeding: No Hot flashes: No Night sweats: No Vaginal dryness: No Mood swings: No Insomnia: No Exercise: No Diet: regular Seatbelt use: Yes OB History T3 L3 SAB0 IAB0 Ectopic0 Multiple0 Live Births0 Home Health Care Coordinator History LMP: 12/07/2007, Postmenopausal Age at Menarche: Age at First : Age at Menopause: Home Health Care Coordinator History Comments: Sexual Activity: Not Currently; No partner data on record; Contraception: Tubal Ligation PAST MEDICAL HISTORY Diagnosis Date Aspiration pneumonia (HCC) 04/2019 [facility] DDD (degenerative disc disease) Depression Diabetes mellitus without mention of complication Fibromyalgia Hyperlipidemia Iron deficiency anemia, unspecified Dr Duong Lupus (HCC) Obesity Vitamin D deficiency 2012 PAST SURGICAL HISTORY Procedure Laterality Date ARTHRP KNE CONDYLE&PLATU MEDIAL&LAT COMPARTMENTS Left 02/25/2017 Dr. Eric Jones CARDIAC CATH 2007 no stenosis minimal plaque CARPAL TUNNEL bilateral CHOLECYSTECTOMY 1998 Cholecystectomy COLONOSCOPY & POLYPECTOMY 07/27/2013 TA x 2, hyperplastic x 5. Repeat in 3y. COLONOSCOPY FLX DX W/COLLJ SPEC WHEN PFRMD 08/15/2007 Repeat in COLONOSCOPY FLX DX W/COLLJ SPEC WHEN PFRMD 07/11/2016 Colonoscopy COLONOSCOPY SCREENING 12/24/2019 EGD TRANSORAL BIOPSY SINGLE/MULTIPLE 08/15/2007 ESOPHAGOGASTRODUODENOSCOPY TRANSORAL DIAGNOSTIC 02/01/2010 EGD ESOPHAGOGASTRODUODENOSCOPY TRANSORAL DIAGNOSTIC 07/27/2013 gastritis ESOPHAGOGASTRODUODENOSCOPY TRANSORAL DIAGNOSTIC 07/11/2016 EGD ESOPHAGOGASTRODUODENOSCOPY TRANSORAL DIAGNOSTIC 12/24/2019 EGD LIG/TRNSXJ FLP TUBE ABDL/VAG APPR UNI/BI 1983 Tubal ligation LUMBAR DISCOGRAM OPEN REPAIR OF ROTATOR CUFF ACUTE 12/31/2008 Rotator cuff repair, right PAST SURGICAL HISTORY OF 2001 RIGHT ANKLE ORIF PAST SURGICAL HISTORY OF low back injections PAST SURGICAL HISTORY OF 04/30/2011 Anterior lumbar interbody fusion L4-5 L5-S1 PAST SURGICAL HISTORY OF 05/30/2011 Posterior lumbar fusion S SPINAL CORD STIM/IMPLANTN 01/2014 FAMILY HISTORY Problem Relation Age of Onset Hypertension Mother Hyperlipidemia Mother Cancer Father metastatic Diabetes Maternal Grandmother Heart Failure Maternal Grandfather Thyroid No Family History Factor 5 Leiden No Family History Stroke No Family History Blood Clots No Family History Auto-Immune Disorder No Family History Systemic Lupus Erythematosus No Family History Multiple Sclerosis No Family History Coronary Artery Disease No Family History Bipolar disorder No Family History Schizophrenia No Family History SOCIAL HISTORY Social History Tobacco Use Smoking status: Former Packs/day: 1.00 Years: 0.50 Pack years: 0.50 Types: Cigarettes Quit date: 04/05/1985 Years since quittin.1 Smokeless tobacco: Never Tobacco comments: Smoked for 6 months total. Vaping Use Vaping Use: Never used Substance Use Topics Alcohol use: No Drug use: No REVIEW OF SYSTEMS Abdomen: No abdominal pain, nausea, vomiting, diarrhea, or constipation. No bloating, early satiety, indigestion, or increased flatulence. Bladder: No dysuria, gross hematuria, urinary frequency, urinary urgency, or incontinence Breast: No breast lumps, nipple d/c, overlying skin changes, redness or skin retraction Allergies and current medication updated:Yes EXAM: Ht 5' 4 (1.63m) Wt 205 lb 6.4 oz (93.2kg) LMP 12/07/2007 BMI 35.24 kg/(m^2). GENERAL: pleasant, female in no apparent distress HEENT: Normocephalic, atraumatic, mucus membranes moist, and no lesions NECK: Supple, full range of motion, no adenopathy, and thyroid normal DERMATOLOGY: Normal, without lesions, non-icteric, and non-hirsute BREAST: soft, non-tender, symmetric, no dominant mass, normal nipple-areolar complex, no lymphadenopathy, and no nipple discharge CHEST: Normal inspiratory effort ABDOMEN: soft, non-tender, and no masses PELVIC: external genitalia normal, normal Bartholin's glands, urethra, [place]'s glands, no vulvar lesions, no cervical lesions, good vaginal support, physiologic discharge present, normal appearing perineal body and perianal region, inflammation noted along vaginal canal and along labial folds. BIMANUAL: uterus normal size, shape and consistency, no adnexal masses, non-tender, and no cervical motion tenderness RECTOVAGINAL: deferred. NEURO: alert and oriented x3,exam grossly non-focal EXTREMITIES: normal ASSESSMENT/PLAN: 1) Health maintenance: Pap done with HPV. Nutrition, exercise and routine health maintenance exams reviewed. 2) Follow up one year or sooner as needed 3) Bv/yeast ordered Discusses if culture were negative will consider vaginal estrogen Sangita Galeana CORPORATE PLANNING MANAGER student TEACHING PROVIDER (Physician/PA/ORDER PULLER) NOTE OF PERSONAL INVOLVEMENT IN CARE: I have personally seen and examined the patient and performed the medical decision-making components. I have reviewed the Advanced Practice Registered Nurse (ORDER PULLER) Student's documentation and verified the findings in the note as written. Any additions or changes are noted in bold/italics. Signature: Roberta Lanza Date: 06/07/2022 Time: 11:57 AM documented in this encounter [facility] 06-07-2022 Nurse Note REVIEW OF SYSTEMS: General: The patient NOTES fatigue, NOTES weight loss, denies weight gain, denies feeling hot, and denies feelings of cold. Eyes: The patient denies glaucoma, denies eye injury/surgery, wears glasses or contacts. Ear/Nose/Throat: The patient denies allergies, denies hayfever, denies ear infections, and denies bloody noses. Cardiovascular: The patient denies chest pain, denies heart disease, denies high blood pressure,denies cardiac stent, denies prior heart attack, denies irregular heart beat, NOTES high cholesterol, denies poor circulation, denies heart failure, other cardiac issues, denies claudication, NOTES cold feet, denies peripheral arterial stent. Respiratory: The patient denies tuberculosis, denies pneumonia, denies frequent cough, denies pulmonary embolism, NOTES shortness of breath, and denies coughing up blood. Gastrointestinal: The patient denies difficulty swallowing, denies acid reflux, denies ulcers, denies vomiting, denies jaundice/hepatitis, denies gallbladder problems, denies black or tarry stools, NOTES hemorrhoids, denies bleeding from rectum, denies diverticulitis, denies constipation, denies diarrhea, denies loss of stool control, and denies hernias. Kidney/Bladder: The patient denies kidney stones, denies urine infections, and denies bloody urine. Skin: The patient denies a history of skin cancer, denies bleeding/changing moles, and denies a history of skin rash. Neurologic: The patient denies a history of epilepsy/convulsions, denies headaches, denies head/spinal injuries, and denies stroke/TIA. Psychiatric: The patient denies psychiatric medications, NOTES depression, and denies voices, denies substance abuse. Endocrine: The patient denies thyroid disorders, NOTES diabetes, and denies hormonal problems. Hematologic: The patient denies a history of bruising, denies bleeding, and denies anemia, denies blood clots. Infections: The patient denies a history of measles and mumps, denies rheumatic fever, and denies sexually transmitted diseases. Musculoskeletal: The patient NOTES back pain/injury, NOTES back problems, denies sciatica, denies knee/foot trouble, NOTES arthritis, or denies gout. When was patient's last Mammogram screening? Unknown Last Colonoscopy: 07/11/2016 Comfort Horton RN documented in this encounter [facility] 06-07-2022 History of Present illness Narrative HISTORY AND PHYSICAL Nikki Farooq Bruno 1955 REFERRING PHYSICIAN: Ailyn Carson PA-C CHIEF COMPLAINT: Consult (Colonoscopy consult) HPI: The patient is a 67 year old female referred for endoscopy. Nikki notes a recent change in bowel habits with increased straining and a decrease in caliber of stool Noted some bright red blood with BMs which has resolved. Patient denies any change in bowel habits, weight changes, black tarry stools or abdominal pain. Denies family history of colon issues. The patient NOTES issues with GERD despite taking PPI and carafate, and watching diet. Nikki has undergone prior endoscopy. Most recent colonoscopy and EGD 07/11/[address] Xiong. No concerning findings at that time. Repeat colonoscopy was recommended in 5 years based on a previous history of polyps. PAST MEDICAL HISTORY Diagnosis Date Aspiration pneumonia (HCC) 04/2019 [facility] DDD (degenerative disc disease) Depression Diabetes mellitus without mention of complication Fibromyalgia Hyperlipidemia Iron deficiency anemia, unspecified Dr Duong Lupus (HCC) Obesity Vitamin D deficiency 2013 PAST SURGICAL HISTORY Procedure Laterality Date ARTHRP KNE CONDYLE&PLATU MEDIAL&LAT COMPARTMENTS Left 02/25/2017 Dr. Eric Jones CARDIAC CATH 2007 no stenosis minimal plaque CARPAL TUNNEL bilateral CHOLECYSTECTOMY 1997 Cholecystectomy COLONOSCOPY & POLYPECTOMY 07/27/2013 TA x 2, hyperplastic x 5. Repeat in 3y. COLONOSCOPY FLX DX W/COLLJ SPEC WHEN PFRMD 08/15/2007 Repeat in COLONOSCOPY FLX DX W/COLLJ SPEC WHEN PFRMD 07/11/2016 Colonoscopy COLONOSCOPY SCREENING 12/24/2019 EGD TRANSORAL BIOPSY SINGLE/MULTIPLE 08/15/2007 ESOPHAGOGASTRODUODENOSCOPY TRANSORAL DIAGNOSTIC 02/01/2010 EGD ESOPHAGOGASTRODUODENOSCOPY TRANSORAL DIAGNOSTIC 07/27/2013 gastritis ESOPHAGOGASTRODUODENOSCOPY TRANSORAL DIAGNOSTIC 07/11/2016 EGD ESOPHAGOGASTRODUODENOSCOPY TRANSORAL DIAGNOSTIC 12/24/2019 EGD LIG/TRNSXJ FLP TUBE ABDL/VAG APPR UNI/BI 1982 Tubal ligation LUMBAR DISCOGRAM OPEN REPAIR OF ROTATOR CUFF ACUTE 12/31/2008 Rotator cuff repair, right PAST SURGICAL HISTORY OF 2001 RIGHT ANKLE ORIF PAST SURGICAL HISTORY OF low back injections PAST SURGICAL HISTORY OF 04/30/2011 Anterior lumbar interbody fusion L4-5 L5-S1 PAST SURGICAL HISTORY OF 05/30/2011 Posterior lumbar fusion S SPINAL CORD STIM/IMPLANTN 01/2014 Current Outpatient Medications Medication Sig [START ON 08/07/2022] pravastatin (PRAVACHOL) 20 mg tablet Take 1 tablet by mouth daily at bedtime. omeprazole (PRILOSEC) 40 mg capsule Take 1 capsule by mouth once daily. hydrOXYchloroQUINE (PLAQUENIL) 200 mg tablet Take 1 tablet by mouth once daily. empagliflozin (JARDIANCE) 10 mg tablet Take 1 tablet by mouth once daily. Take 1 tablet once daily in the morning sucralfate (CARAFATE) 1 gram tablet Take 1 tablet by mouth three times daily before meals. furosemide (LASIX) 20 mg tablet Take 1 tablet by mouth twice daily. Patient may adjust from baseline 40 mg daily up to 40 mg twice daily based on weight gain greater than 3 pounds plus either increased shortness of breath or increased swelling. lamoTRIgine (LAMICTAL) 100 mg tablet Take 1 tablet by mouth twice daily. dulaglutide (TRULICITY) 1.5 mg/0.5 mL pen injector Inject 1.5 mg subcutaneously one time a week. Inject once per week. Discard Pen After cholecalciferol, Vitamin D3, (VITAMIN D3) 1,250 mcg (50,000 unit) cap capsule Take 1 capsule by mouth one time a week. nystatin (MYCOSTATIN) powder Apply 1 application to affected area twice daily. metFORMIN ER (GLUCOPHAGE XR) 500 mg 24 hr tablet Take 1 tablet by mouth twice daily with meals. Currently on hold but may restart if needed (Patient taking differently: Take 500 mg by mouth twice daily with meals. PRN) Insulin [place], Disposable, (PEN NEEDLES) 31 gauge x 1/4 ndle Once a day for insulin usage. blood sugar diagnostic (BLOOD GLUCOSE TEST) test strip Test blood sugar(s) 3 times daily. Dx: Type 2 DM - Uncontrolled E11.65 Insulin: Yes blood sugar diagnostic (FREESTYLE LITE STRIPS) test strip Test blood sugar(s) 3 times daily. Dx: 250.02. Insulin: Yes gabapentin (NEURONTIN) 300 mg capsule Take 1 capsule by mouth three times daily. No current facility-administered medications for this visit. ALLERGIES: Patient has no known allergies. PERSONAL HISTORY: Social History Tobacco Use Smoking status: Former Packs/day: 1.00 Years: 0.50 Pack years: 0.50 Types: Cigarettes Quit date: 04/05/1985 Years since quittin.1 Smokeless tobacco: Never Tobacco comments: Smoked for 6 months total. Vaping Use Vaping Use: Never used Substance Use Topics Alcohol use: No Drug use: No FAMILY HISTORY: FAMILY HISTORY Problem Relation Age of Onset Hypertension Mother Hyperlipidemia Mother Cancer Father metastatic Diabetes Maternal Grandmother Heart Failure Maternal Grandfather Thyroid No Family History Factor 5 Leiden No Family History Stroke No Family History Blood Clots No Family History Auto-Immune Disorder No Family History Systemic Lupus Erythematosus No Family History Multiple Sclerosis No Family History Coronary Artery Disease No Family History Bipolar disorder No Family History Schizophrenia No Family History REVIEW OF SYMPTOMS: The review of systems data was entered by the nurse and reviewed by ms Nursing Notes: Comfort Horton RN 06/07/2022 10:17 AM Signed REVIEW OF SYSTEMS: General: The patient NOTES fatigue, NOTES weight loss, denies weight gain, denies feeling hot, and denies feelings of cold. Eyes: The patient denies glaucoma, denies eye injury/surgery, wears glasses or contacts. Ear/Nose/Throat: The patient denies allergies, denies hayfever, denies ear infections, and denies bloody noses. Cardiovascular: The patient denies chest pain, denies heart disease, denies high blood pressure,denies cardiac stent, denies prior heart attack, denies irregular heart beat, NOTES high cholesterol, denies poor circulation, denies heart failure, other cardiac issues, denies claudication, NOTES cold feet, denies peripheral arterial stent. Respiratory: The patient denies tuberculosis, denies pneumonia, denies frequent cough, denies pulmonary embolism, NOTES shortness of breath, and denies coughing up blood. Gastrointestinal: The patient denies difficulty swallowing, denies acid reflux, denies ulcers, denies vomiting, denies jaundice/hepatitis, denies gallbladder problems, denies black or tarry stools, NOTES hemorrhoids, denies bleeding from rectum, denies diverticulitis, denies constipation, denies diarrhea, denies loss of stool control, and denies hernias. Kidney/Bladder: The patient denies kidney stones, denies urine infections, and denies bloody urine. Skin: The patient denies a history of skin cancer, denies bleeding/changing moles, and denies a history of skin rash. Neurologic: The patient denies a history of epilepsy/convulsions, denies headaches, denies head/spinal injuries, and denies stroke/TIA. Psychiatric: The patient denies psychiatric medications, NOTES depression, and denies voices, denies substance abuse. Endocrine: The patient denies thyroid disorders, NOTES diabetes, and denies hormonal problems. Hematologic: The patient denies a history of bruising, denies bleeding, and denies anemia, denies blood clots. Infections: The patient denies a history of measles and mumps, denies rheumatic fever, and denies sexually transmitted diseases. Musculoskeletal: The patient NOTES back pain/injury, NOTES back problems, denies sciatica, denies knee/foot trouble, NOTES arthritis, or denies gout. When was patient's last Mammogram screening? Unknown Last Colonoscopy: 07/11/2016 Comfort Horton RN I have confirmed and edited as necessary, the PFSH and ROS obtained by others. Kat Russo PA-C PHYSICAL EXAMINATION: General: The patient is 67 year old female, well nourished, well hydrated in no acute distress. The patient is oriented to time, place, and person. VITALS: Blood pressure 112/60, pulse 107, temperature 36.8 C (98.3 F), height 165.1 cm (5' 5 ), weight 93.7 kg (206 lb 9.6 oz), last menstrual period 12/07/2007, SpO2 99 %. Body mass index is 34.38 kg/m . HEENT: Normal cephalic, ataumatic, pupils are equally round, sclera are anicteric, mucous membranes are moist, oropharynx is clear. Neck has no masses, asymmetry or lymphadenopathy. Respiratory: Clear to auscultation and percussion. Normal respiratory excursion and pattern. Cardiac: Examination is regular rate and rhythm. Normal S1/S2 Abdominal exam: Soft, nontender, with no palpable masses. No hepatosplenomegaly. No palpable hernias. Extremities: no clubbing, cyanosis or edema. No adenopathy. LABORATORY VALUES: As Noted RADIOLOGIC STUDIES: As Noted Assessment IMPRESSION: change in bowel habits. GERD-recommend EGD in addition to colonoscopy PLAN: I have reviewed my findings with the surgeon. Will plan for upper and lower endoscopy. We discussed the risks and benefits of the planned endoscopy. I have informed the patient that complications can occur including failure to complete the endoscopy and perforation. The patient had the opportunity to ask questions concerning the planned endoscopy. My staff has also explained the procedure to the patient in understandable terms and has given the patient printed material concerning the procedure. The patient freely consents to surgery. The patient was offered a surgery/procedure at a [facility] facility. I have counseled the patient regarding the risk of exposure to and/or potential harm posed by the COVID-19 virus with having a surgery/procedure at this time versus the risk of delaying the surgery/procedure. It is not possible to know either the risk of delaying the surgery or procedure or chance of getting an infection with perfect accuracy, but a joint decision was made between the patient and myself to proceed at this time with endoscopy. I plan to use Miralax/Dulcolax bowel preparation We will plan for Monitored Anesthetic Care. Diagnoses: (R19.4) Change in bowel habits (primary encounter diagnosis) (Z86.010) History of colonic polyps (K92.1) Blood in stool (R11.0) Nausea (K21.9) Gastroesophageal reflux disease, unspecified whether esophagitis present Consultation requested by Francesco Carson PA-C for an opinion regarding change in bowel habits and need for endoscopy. My final recommendations will be communicated back to the requesting physician by way of shared Medical record or letter to requesting physician via US mail. Kat Russo PA-C documented in this encounter [facility] 05-24-2022 Note HNO ID: [id number] Author: Tyler Dixon APRN.ARMORED CAR DRIVER Service: ? Author Type: Nurse Practitioner Type: Progress Notes Filed: 05/24/2022 10:55 AM Note Text: HPI: To review, Nikki Carr is a 67 year old female - In , diagnosed with SLE (generalized pain, hair loss, facial erythema, fatigue and intermittent dry eyes/mouth with +NAIF 170 and +SSA 158) and fmg by Dr. Storm. Treated with HCQ. - In September, established care with Dr. Nichole. - In Dec, reported no lupus flares. - in 03/2020, reports feeling ok. Has a lot of back pain unrelated to SLE which she sees pain management for. Doing PT which hasn't helped. - Last plaquenil eye exam normal in August PAST MEDICAL HISTORY Diagnosis Date Aspiration pneumonia (HCC) 04/2019 [facility] DDD (degenerative disc disease) Depression Diabetes mellitus without mention of complication Fibromyalgia Hyperlipidemia Iron deficiency anemia, unspecified Dr Duong Lupus (HCC) Obesity Vitamin D deficiency 2012 PAST SURGICAL HISTORY Procedure Laterality Date ARTHRP KNE CONDYLEANDPLATU MEDIALANDLAT COMPARTMENTS Left 02/25/2017 Dr. Eric Jones CARDIAC CATH 2007 no stenosis minimal plaque CARPAL TUNNEL bilateral CHOLECYSTECTOMY 1997 Cholecystectomy COLONOSCOPY AND POLYPECTOMY 07/27/13 TA x 2, hyperplastic x 5. Repeat in 3y. COLONOSCOPY FLX DX W/COLLJ SPEC WHEN PFRMD 08/15/07 Repeat in COLONOSCOPY FLX DX W/COLLJ SPEC WHEN PFRMD 07/11/2016 Colonoscopy COLONOSCOPY FLX DX W/COLLJ SPEC WHEN PFRMD 12/24/2019 Colonoscopy EGD TRANSORAL BIOPSY SINGLE/MULTIPLE 08/15/07 ESOPHAGOGASTRODUODENOSCOPY TRANSORAL DIAGNOSTIC 02/01/2010 EGD ESOPHAGOGASTRODUODENOSCOPY TRANSORAL DIAGNOSTIC 07/27/13 gastritis ESOPHAGOGASTRODUODENOSCOPY TRANSORAL DIAGNOSTIC 07/11/2016 EGD ESOPHAGOGASTRODUODENOSCOPY TRANSORAL DIAGNOSTIC 12/24/2019 EGD LIG/TRNSXJ FLP TUBE ABDL/VAG APPR UNI/BI 1982 Tubal ligation LUMBAR DISCOGRAM OPEN REPAIR OF ROTATOR CUFF ACUTE 12/31/08 Rotator cuff repair, right PAST SURGICAL HISTORY OF 2001 RIGHT ANKLE ORIF PAST SURGICAL HISTORY OF low back injections PAST SURGICAL HISTORY OF 04/30/2011 Anterior lumbar interbody fusion L4-5 L5-S1 PAST SURGICAL HISTORY OF 05/30/11 Posterior lumbar fusion S SPINAL CORD STIM/IMPLANTN 01/2014 ALLERGIES No Known Allergies INTERVAL HISTORY This Team Access Model visit is a virtual encounter. It required patient-provider interaction for the medical decision making as documented below. The patient logged in 20 minutes late for the appointment. She is doing well overall. She states lupus has been stable. She is doing PT. She reports triggering to R middle finger. Sites of pain: low back, knees, pain rated 4/10 Joint swelling: none EMS: yes to back, lasting 15-20 minutes No recent infections. Tolerating meds. Answers submitted by the patient for this visit: Review of Systems Rheumatology (Submitted on 05/24/2022) Fever : No Recent Unintentional Weight Change: No Eye Pain: No Eye Redness: No Vision Disturbance: No Eye Dryness: Yes Nose Bleeds: No Sores in your Mouth: No Trouble Swallowing: No Dry Mouth: Yes Chest Pain: No Leg Swelling: No A Cough: No Shortness of Breath: No Pain with Breathing: No Heartburn: No Abdominal Pain: No Diarrhea: No Black Tarry Stools: No Blood in Urine: No Pain or Burning with Urination: No Joint Pain or Stiffness: Yes Muscle Weakness: Yes Muscle Aches: Yes Joint Swelling: No Morning Stiffness in Joints: Yes A Rash: No Skin Color Changes: No Hair Loss: Yes Nail Changes: No Headaches: No Numbness: No Memory Loss: Yes Swollen Glands: No Current Outpatient Medications Medication Sig [START ON 08/07/2022] pravastatin (PRAVACHOL) 20 mg tablet Take 1 tablet by mouth daily at bedtime. omeprazole (PRILOSEC) 40 mg capsule Take 1 capsule by mouth once daily. hydrOXYchloroQUINE (PLAQUENIL) 200 mg tablet Take 1 tablet by mouth once daily. empagliflozin (JARDIANCE) 10 mg tablet Take 1 tablet by mouth once daily. Take 1 tablet once daily in the morning sucralfate (CARAFATE) 1 gram tablet Take 1 tablet by mouth three times daily before meals. furosemide (LASIX) 20 mg tablet Take 1 tablet by mouth twice daily. Patient may adjust from baseline 40 mg daily up to 40 mg twice daily based on weight gain greater than 3 pounds plus either increased shortness of breath or increased swelling. lamoTRIgine (LAMICTAL) 100 mg tablet Take 1 tablet by mouth twice daily. dulaglutide (TRULICITY) 1.5 mg/0.5 mL pen injector Inject 1.5 mg subcutaneously one time a week. Inject once per week. Discard Pen After cholecalciferol, Vitamin D3, (VITAMIN D3) 1,250 mcg (50,000 unit) cap capsule Take 1 capsule by mouth one time a week. nystatin (MYCOSTATIN) powder Apply 1 application to affected area twice daily. metFORMIN ER (GLUCOPHAGE XR) 500 mg 24 hr tablet Take 1 tablet by (more content not included)... [facility] 05-24-2022 Miscellaneous Notes The patient did not log in for her virtual visit. I called her and left a message advising that she reschedule if she is not able to keep her appointment. Tyler Dixon APRN.CNP documented in this encounter [facility] 05-24-2022 History of Present illness Narrative HPI: To review, Nikki Carr is a 67 year old female - In , diagnosed with SLE (generalized pain, hair loss, facial erythema, fatigue and intermittent dry eyes/mouth with +NAIF 170 and +SSA 158) and fmg by Dr. Storm. Treated with HCQ. - In September, established care with Dr. Nichole. - In Dec, reported no lupus flares. - in 03/2020, reports feeling ok. Has a lot of back pain unrelated to SLE which she sees pain management for. Doing PT which hasn't helped. - Last plaquenil eye exam normal in August PAST MEDICAL HISTORY Diagnosis Date Aspiration pneumonia (HCC) 04/2019 [facility] DDD (degenerative disc disease) Depression Diabetes mellitus without mention of complication Fibromyalgia Hyperlipidemia Iron deficiency anemia, unspecified Dr Duong Lupus (HCC) Obesity Vitamin D deficiency 2012 PAST SURGICAL HISTORY Procedure Laterality Date ARTHRP KNE CONDYLE&PLATU MEDIAL&LAT COMPARTMENTS Left 02/25/2017 Dr. Eric Jones CARDIAC CATH 2007 no stenosis minimal plaque CARPAL TUNNEL bilateral CHOLECYSTECTOMY 1997 Cholecystectomy COLONOSCOPY & POLYPECTOMY 07/27/13 TA x 2, hyperplastic x 5. Repeat in 3y. COLONOSCOPY FLX DX W/COLLJ SPEC WHEN PFRMD 08/15/07 Repeat in COLONOSCOPY FLX DX W/COLLJ SPEC WHEN PFRMD 07/11/2016 Colonoscopy COLONOSCOPY FLX DX W/COLLJ SPEC WHEN PFRMD 12/24/2019 Colonoscopy EGD TRANSORAL BIOPSY SINGLE/MULTIPLE 08/15/07 ESOPHAGOGASTRODUODENOSCOPY TRANSORAL DIAGNOSTIC 02/01/2010 EGD ESOPHAGOGASTRODUODENOSCOPY TRANSORAL DIAGNOSTIC 07/27/13 gastritis ESOPHAGOGASTRODUODENOSCOPY TRANSORAL DIAGNOSTIC 07/11/2016 EGD ESOPHAGOGASTRODUODENOSCOPY TRANSORAL DIAGNOSTIC 12/24/2019 EGD LIG/TRNSXJ FLP TUBE ABDL/VAG APPR UNI/BI 1982 Tubal ligation LUMBAR DISCOGRAM OPEN REPAIR OF ROTATOR CUFF ACUTE 12/31/08 Rotator cuff repair, right PAST SURGICAL HISTORY OF 2001 RIGHT ANKLE ORIF PAST SURGICAL HISTORY OF low back injections PAST SURGICAL HISTORY OF 04/30/2011 Anterior lumbar interbody fusion L4-5 L5-S1 PAST SURGICAL HISTORY OF 05/30/11 Posterior lumbar fusion S SPINAL CORD STIM/IMPLANTN 01/2014 ALLERGIES No Known Allergies INTERVAL HISTORY This Team Access Model visit is a virtual encounter. It required patient-provider interaction for the medical decision making as documented below. The patient logged in 20 minutes late for the appointment. She is doing well overall. She states lupus has been stable. She is doing PT. She reports triggering to R middle finger. Sites of pain: low back, knees, pain rated 4/10 Joint swelling: none EMS: yes to back, lasting 15-20 minutes No recent infections. Tolerating meds. Answers submitted by the patient for this visit: Review of Systems Rheumatology (Submitted on 05/24/2022) Fever : No Recent Unintentional Weight Change: No Eye Pain: No Eye Redness: No Vision Disturbance: No Eye Dryness: Yes Nose Bleeds: No Sores in your Mouth: No Trouble Swallowing: No Dry Mouth: Yes Chest Pain: No Leg Swelling: No A Cough: No Shortness of Breath: No Pain with Breathing: No Heartburn: No Abdominal Pain: No Diarrhea: No Black Tarry Stools: No Blood in Urine: No Pain or Burning with Urination: No Joint Pain or Stiffness: Yes Muscle Weakness: Yes Muscle Aches: Yes Joint Swelling: No Morning Stiffness in Joints: Yes A Rash: No Skin Color Changes: No Hair Loss: Yes Nail Changes: No Headaches: No Numbness: No Memory Loss: Yes Swollen Glands: No Current Outpatient Medications Medication Sig [START ON 08/07/2022] pravastatin (PRAVACHOL) 20 mg tablet Take 1 tablet by mouth daily at bedtime. omeprazole (PRILOSEC) 40 mg capsule Take 1 capsule by mouth once daily. hydrOXYchloroQUINE (PLAQUENIL) 200 mg tablet Take 1 tablet by mouth once daily. empagliflozin (JARDIANCE) 10 mg tablet Take 1 tablet by mouth once daily. Take 1 tablet once daily in the morning sucralfate (CARAFATE) 1 gram tablet Take 1 tablet by mouth three times daily before meals. furosemide (LASIX) 20 mg tablet Take 1 tablet by mouth twice daily. Patient may adjust from baseline 40 mg daily up to 40 mg twice daily based on weight gain greater than 3 pounds plus either increased shortness of breath or increased swelling. lamoTRIgine (LAMICTAL) 100 mg tablet Take 1 tablet by mouth twice daily. dulaglutide (TRULICITY) 1.5 mg/0.5 mL pen injector Inject 1.5 mg subcutaneously one time a week. Inject once per week. Discard Pen After cholecalciferol, Vitamin D3, (VITAMIN D3) 1,250 mcg (50,000 unit) cap capsule Take 1 capsule by mouth one time a week. nystatin (MYCOSTATIN) powder Apply 1 application to affected area twice daily. metFORMIN ER (GLUCOPHAGE XR) 500 mg 24 hr tablet Take 1 tablet by mouth twice daily with meals. Currently on hold but may restart if needed (Patient not taking: Reported on 05/21/2022) Insulin [place], Disposable, (PEN NEEDLES) 31 gauge x 1/4 ndle Once a day for insulin usage. blood sugar diagnostic (BLOOD GLUCOSE TEST) test strip Test blood sugar(s) 3 times daily. Dx: Type 2 DM - Uncontrolled E11.65 Insulin: Yes blood sugar diagnostic (FREESTYLE LITE STRIPS) test strip Test blood sugar(s) 3 times daily. Dx: 250.02. Insulin: Yes gabapentin (NEURONTIN) 300 mg capsule Take 1 capsule by mouth three times daily. No current facility-administered medications for this visit. FAMILY HISTORY Problem Relation Age of Onset Hypertension Mother Hyperlipidemia Mother Cancer Father metastatic Diabetes Maternal Grandmother Heart Failure Maternal Grandfather Thyroid No Family History Factor 5 Leiden No Family History Stroke No Family History Blood Clots No Family History Auto-Immune Disorder No Family History Systemic Lupus Erythematosus No Family History Multiple Sclerosis No Family History Coronary Artery Disease No Family History Bipolar disorder No Family History Schizophrenia No Family History SOCIAL HISTORY: Lives in [place] Tobacco use: None Alcohol use: None PHYSICAL EXAM: CONSTITUTIONAL: Well-appearing, in NAD. EYES: No scleral icterus or conjunctivitis NEURO: Awake, alert and oriented Labs reviewed and discussed with the patient: Component Latest Ref Rng & Units 05/18/2022 WBC 3.70 - 11.00 k/uL 11.83 (H) RBC 3.90 - 5.20 m/uL 5.07 Hemoglobin 11.5 - 15.5 g/dL 13.0 Hematocrit 36.0 - 46.0 % 43.8 MCV 80.0 - 100.0 fL 86.4 MCH 26.0 - 34.0 pg 25.6 (L) MCHC 30.5 - 36.0 g/dL 29.7 (L) RDW-CV 11.5 - 15.0 % 16.8 (H) Platelet Count 150 - 400 k/uL 295 MPV 9.0 - 12.7 fL 10.4 Neut% % 74.7 Abs Neut (ANC) 1.45 - 7.50 k/uL 8.85 (H) Lymph% % 19.1 Abs Lymph 1.00 - 4.00 k/uL 2.26 [place]% % 5.2 Abs [place] <0.87 k/uL 0.61 Eosin% % 0.0 Abs Eosin <0.46 k/uL <0.03 Baso% % 0.3 Abs Baso <0.11 k/uL 0.03 Immature Gran % % 0.7 IMMATURE GRANS (ABS) <0.10 k/uL 0.08 NRBC /100 WBC 0.0 Absolute nRBC <0.01 k/uL <0.01 DTYPE Auto Iron 41 - 186 ug/dL 62 TIBC 232 - 386 ug/dL 354 Transferrin Saturation 15.0 - 57.0 % 17.5 Ferritin 14.7 - 205.1 ng/mL 98.6 Component Latest Ref Rng & Units 10/12/2021 Glucose 74 - 99 mg/dL 263 (H) BUN 7 - 21 mg/dL 22 (H) Creatinine 0.58 - 0.96 mg/dL 1.34 (H) Sodium 136 - 144 mmol/L 137 Potassium 3.7 - 5.1 mmol/L 4.1 Chloride 97 - 105 mmol/L 101 CO2 22 - 30 mmol/L 23 Anion Gap 9 - 18 mmol/L 13 Calcium 8.5 - 10.2 mg/dL 9.1 eGFR >=60 mL/min/1.73m 44 (L) Component Latest Ref Rng & Units 05/03/2021 Color Yellow Light Yellow (A) Clarity Clear Clear Glucose, Urine Negative mg/dL Negative Bilirubin, Urine Negative Negative Ketones, Urine Negative Negative Specific [place], Ur 1.005 - 1.030 1.011 Hemoglobin/Blood,Ur Negative Negative pH, Urine 5.0 - 8.0 6.0 Protein, Urine Negative Negative Urobilinogen Negative E.U./dL Negative Nitrites Negative Positive (A) Leukest Negative 2+ (A) Comment SEE COMMENT WBC, Urine 0 - 5 /HPF 6-10 (A) RBC, Urine 0 - 3 /HPF 0-3 Cast 0 /LPF SEE COMMENT (A) Epithelial Cells /HPF SEE COMMENT Urine Jimmy Comment SEE COMMENT Creatinine 0.58 - 0.96 mg/dL 1.37 (H) eGFR- 47 eGFR-All Other Races . 39 Protein, Urine Random 0 - 20 mg/dL 23 (H) Creatinine, Ur Random (UCRR) 20 - 300 mg/dL 70.7 Protein/Creat Ratio <0.2 0.3 (H) AST 13 - 35 U/L 22 ALT 7 - 38 U/L 20 Albumin 3.9 - 4.9 g/dL 4.4 WSR 0 - 20 mm/hr 26 (H) CRP <0.9 mg/dL 0.6 C3 86 - 166 mg/dL 115 C4 13 - 46 mg/dL 25 DNA Antibody <30 IU/mL 69 (H) Vitamin D 25 Hydroxy 31.0 - 80.0 ng/mL 73.3 Component Latest Ref Rng & Units 09/25/2012 Sm Antibody <1.0 AI <0.2 DIMPLING MACHINE OPERATOR Antibody <1.0 AI <0.2 SSA Antibody <1.0 AI <0.2 SSB Antibody <1.0 AI <0.2 Centromere Ab <1.0 AI <0.2 Scleroderma Ab, IgG <1.0 AI <0.2 Rupa 1 Antibody <1.0 AI <0.2 Ribosomal DIMPLING MACHINE OPERATOR <1.0 AI <0.2 Chromatin Antibody <1.0 AI <0.2 Hep B Core Ab, Total NEGAT Negative Hep C Antibody IA NEGAT Negative Hep B Surface Ag NEGAT Negative Hep B Surface Ab, Qual NEGAT Negative NAIF NEGAT Negative NAIF Titer NEGAT Negative NAIF Pattern Not applicable for negative result. DNA Antibody w/Confirmation <30 IU/mL <12 CCP Antibody, IgG <20 Units <15 Rheumatoid Factor <20 IU/mL <7 STUDIES: *Nov CXR- no acute changes *Dec MRI L knee- NO DISCRETE MENISCAL TEAR, DEGENERATIVE CHANGES IN THE PATELLOFEMORAL ARTICULATION. IMPRESSION and PLAN: 1. SLE: Diagnosed by Dr. Storm per generalized pain, hair loss, facial erythema, fatigue and intermittent dry eyes/mouth with +NAIF 170 and +SSA 158. Stable on HCQ. - Continue HCQ 200mg/day along with routine eye exams to monitor for potential retinal toxicity, last normal in 11/2021. She was reminded to schedule another exam for this year. -r/b/a of med discussed - Check labs. Notify of results via WSO2t 2. Osteoarthritis: L knee OA s/p L TKA - Continue ortho follow-up prn - Avoid NSAIDs PO given CKD 3. Fibromyalgia: - Continue gabapentin and pain management follow-up 4. Lumbar DDD: Per MRI with DDD And multilevel spondylosis - Continue pain management follow-up 5. CKD: - Renally dose medications, avoid NSAIDs PO 6. Tremor: Likely benign essential tremor. Explained that tremor would less likely be due to lupus especially as all the other manifestations are stable. - previously advised discussing with neurology including potential treatment to help with this 7. General health maintenance: - Advised to continue follow-up with PCP for routine health maintenance and malignancy screening -she has received both doses of the covid vaccine, 3rd dose in 12/2021. Follow-up in 5 months or sooner if needed. Patient was instructed to call if any questions or concerns. Thank you for allowing me to participate in the care of your patient. Visit time was 6 minutes Tyler Dixon APRN.CNP documented in this encounter [facility] 05-23-2022 Note Patient Outreach (IN TMMN) NIKKI CARR ([id number]) 1955 F Date Time Provider Department 05/23/22 Ailyn CARSON During your visit today, we recorded the following information about you: Allergies As of Date: 05/23/2022 (No Known Allergies) Date Reviewed: 03/07/2022 Reviewed by: Vero Rachel LPN - Fully Assessed Visit Diagnosis:Encounter for screening mammogram for breast cancer [Z12.31] Order(s):[facility] SCREENING [[id number]] Order #: [id number] FUTURE Prescriptions as of 05/28/2022 - pravastatin (PRAVACHOL) 20 mg tablet Take 1 tablet by mouth daily at bedtime. - omeprazole (PRILOSEC) 40 mg capsule Take 1 capsule by mouth once daily. - hydrOXYchloroQUINE (PLAQUENIL) 200 mg tablet Take 1 tablet by mouth once daily. - empagliflozin (JARDIANCE) 10 mg tablet Take 1 tablet by mouth once daily. Take 1 tablet once daily in the morning - sucralfate (CARAFATE) 1 gram tablet Take 1 tablet by mouth three times daily before meals. - furosemide (LASIX) 20 mg tablet Take 1 tablet by mouth twice daily. Patient may adjust from baseline 40 mg daily up to 40 mg twice daily based on weight gain greater than 3 pounds plus either increased shortness of breath or increased swelling. - lamoTRIgine (LAMICTAL) 100 mg tablet Take 1 tablet by mouth twice daily. - dulaglutide (TRULICITY) 1.5 mg/0.5 mL pen injector Inject 1.5 mg subcutaneously one time a week. Inject once per week. Discard Pen After - cholecalciferol, Vitamin D3, (VITAMIN D3) 1,250 mcg (50,000 unit) cap capsule Take 1 capsule by mouth one time a week. - nystatin (MYCOSTATIN) powder Apply 1 application to affected area twice daily. - metFORMIN ER (GLUCOPHAGE XR) 500 mg 24 hr tablet Take 1 tablet by mouth twice daily with meals. Currently on hold but may restart if needed - Insulin [place], Disposable, (PEN NEEDLES) 31 gauge x 1/4 ndle Once a day for insulin usage. - blood sugar diagnostic (BLOOD GLUCOSE TEST) test strip Test blood sugar(s) 3 times daily. Dx: Type 2 DM - Uncontrolled E11.65 Insulin: Yes - blood sugar diagnostic (FREESTYLE LITE STRIPS) test strip Test blood sugar(s) 3 times daily. Dx: 250.02. Insulin: Yes - gabapentin (NEURONTIN) 300 mg capsule Take 1 capsule by mouth three times daily. Problem List As Of Date 05/23/2022 Noted Resolved Diabetes mellitus (HCC) [E11.9] 01/23/2006 10/13/2015 Mixed hyperlipidemia [E78.2] 01/23/2006 Other malaise and fatigue [R53.81, R53.83] 01/23/2006 05/26/2019 Iron deficiency anemia [D50.9] 02/07/2006 Chronic depression [F32.A] 02/07/2006 05/08/2022 Acute gastritis with hemorrhage [K29.01] 08/20/2007 05/26/2019 PAIN BACK, LOW [M54.50] 12/09/2007 11/19/2016 Unspecified disorder of menstruation and other *12/09/2007 06/05/2018 Nausea with vomiting [R11.2] 12/09/2007 06/05/2018 Lumbosacral radiculopathy at L5 [M54.17] 12/11/2007 Generalized osteoarthrosis, unspecified site [M*10/01/2008 05/26/2019 PAIN JOINT, KNEE [M25.569] 10/01/2008 11/19/2016 Depression [F32.A] 10/06/2009 11/22/2009 Anxiety [F41.9] 11/15/2009 Anemia [D64.9] 06/12/2017 Esophagitis [K20.90] 02/01/2010 05/08/2022 Enthesopathy of ankle and tarsus, unspecified [*04/20/2010 Lower back pain [M54.50] 05/04/2011 11/19/2016 Lupus (HCC) [M32.9] Fibromyalgia [M79.7] DDD (degenerative disc disease), lumbar [M51.36] Obesity [E66.9] Peripheral neuropathy [G62.9] 06/23/2011 05/26/2019 Pressure ulcer [L89.90] 06/23/2011 11/19/2016 Vitamin d deficiency [E55.9] Arthritis of knee [M17.10] 02/24/2013 11/19/2016 Other pain disorders related to psychological f*11/09/2013 Malabsorption of iron [K90.9] 12/30/2014 Type 2 diabetes mellitus with diabetic neuropat*10/05/2015 Primary osteoarthritis of left knee [M17.12] 10/06/2015 Type 2 diabetes mellitus without complication, *10/13/2015 10/13/2015 Abnormal EKG [R94.31] 06/14/2017 Absolute anemia [D64.9] 09/13/2017 Diastolic dysfunction, left ventricle [I51.9] 09/30/2017 Aspiration pneumonia (HCC) [J69.0] 04/201910/26/2020 Chronic renal insufficiency, stage 3 (moderate)*06/10/2020 Moderate episode of recurrent major depressive *02/18/2021 Panic disorder with agoraphobia [F40.01] 02/18/2021 Chronic post-traumatic stress disorder (PTSD) [*02/18/2021 Type 2 diabetes mellitus with stage 3 chronic k*05/08/2022 Encounter Status:Closed by EPIC, PRODUSER on 05/28/22 [facility] 05-21-2022 Note HNO ID: [id number] Author: Ailyn Carson PA-C Service: ? Author Type: Physician Audit Specialist Type: Progress Notes Filed: 05/21/2022 6:41 PM Note Text: 67 year old female with c/o I need a colonoscopy . Change in stool: thinner over last couple months: goes in spurts, smaller stools, soft, thinner, bright red blood in water. Has some incontinence on wiping. Not straining. No pain with defecation. No heart burn or reflux Not using carafate. Taking omeprazole 40mg daily AC Feeling tired, weak, but feels she is not depressed. 16lb weight loss since 01/01/2022 but correlates with Trulicity started 11/20/2021. Component Latest Ref Rng AND Units 02/21/2022 05/18/2022 WBC 3.70 - 11.00 k/uL 10.56 11.83 (H) RBC 3.90 - 5.20 m/uL 4.51 5.07 Hemoglobin 11.5 - 15.5 g/dL 11.9 13.0 Hematocrit 36.0 - 46.0 % 38.9 43.8 MCV 80.0 - 100.0 fL 86.3 86.4 MCH 26.0 - 34.0 pg 26.4 25.6 (L) MCHC 30.5 - 36.0 g/dL 30.6 29.7 (L) RDW-CV 11.5 - 15.0 % 17.5 (H) 16.8 (H) Platelet Count 150 - 400 k/uL 287 295 MPV 9.0 - 12.7 fL 10.1 10.4 Neut% % 76.3 74.7 Abs Neut (ANC) 1.45 - 7.50 k/uL 8.06 (H) 8.85 (H) Lymph% % 14.4 19.1 Abs Lymph 1.00 - 4.00 k/uL 1.52 2.26 [place]% % 4.1 5.2 Abs [place] <0.87 k/uL 0.43 0.61 Eosin% % 3.8 0.0 Abs Eosin <0.46 k/uL 0.40 <0.03 Baso% % 0.5 0.3 Abs Baso <0.11 k/uL 0.05 0.03 Immature Gran % % 0.9 0.7 IMMATURE GRANS (ABS) <0.10 k/uL 0.10 (H) 0.08 NRBC /100 WBC 0.0 0.0 Absolute nRBC <0.01 k/uL <0.01 <0.01 DTYPE Auto Auto Iron 41 - 186 ug/dL 51 62 TIBC 232 - 386 ug/dL 321 354 Transferrin Saturation 15.0 - 57.0 % 15.9 17.5 Ferritin 14.7 - 205.1 ng/mL 106.0 98.6 Diabetes Mellitus Type 2: Current medications: Empaglifozin 10mg daily Dulaglutide 1.5mg SC weekly Taking medication as directed consistently? Yes Medication side effects: none-doing well Medical Issues / Complications: hyperlipidemia Checking blood sugars at home? Yes. 120-125 Watching diet? Yes Physical Activity: Regular Hypoglycemic spells? No Any visual disturbance? No Chest pain? No New numbness, tingling or loss of sensation? No Any recent foot problems, sores or rashes? No Any recent or sudden weight loss? No Change in urination? No. If yes: Any recent illness? No Last eye exam: up to date. Last foot exam: up to date. HBA1C: Hemoglobin A1C Date Value 10/03/2021 6.4 % 08/15/2021 6.4 % 02/07/2021 5.5 % 10/31/2020 5.5 04/14/2020 5.8 % ) CMP: Glucose 263 10/12/2021 BUN 22 10/12/2021 Creatinine 1.34 10/12/2021 Sodium 137 10/12/2021 Potassium 4.1 10/12/2021 Chloride 101 10/12/2021 CO2 23 10/12/2021 Protein, Total 7.0 02/07/2021 Albumin 4.4 05/03/2021 Calcium 9.1 10/12/2021 Alkaline Phosphatase 110 02/07/2021 Bilirubin, Total 0.2 02/07/2021 AST 22 05/03/2021 ALT 20 05/03/2021 Last 2 Encounter Wt Readings: Date: Wt: 05/21/2022 93 kg (205 lb) 03/07/2022 98.9 kg (218 lb) Hyperlipidemia: Current medication Pravastatin 20mg daily HS Taking medication consistently Yes Observing low cholesterol high fiber diet Yes Muscle aches No Stomach complaints/ diarrhea as above Last 2 Lipids: Component Latest Ref Rng AND Units 05/28/2019 04/14/2020 Cholesterol, Total <200 mg/dL 191 135 Triglyceride <150 mg/dL 348 (H) 141 HDL Cholesterol >39 mg/dL 49 43 LDL Cholesterol <100 mg/dL 72 64 Non HDL Cholesterol <130 mg/dL 142 (H) 92 Fasting Time hrs 1 Unknown VLDL Cholesterol <30 mg/dL 70 (H) 28 TC:HDL Ratio <5.10 3.90 3.14 LDL:HDL Ratio <2.54 1.47 1.49 HISTORIES FAMILY HISTORY Problem Relation Age of Onset Hypertension Mother Hyperlipidemia Mother Cancer Father metastatic Diabetes Maternal Grandmother Heart Failure Maternal Grandfather Thyroid No Family History Factor 5 Leiden No Family History Stroke No Family History Blood Clots No Family History Auto-Immune Disorder No Family History Systemic Lupus Erythematosus No Family History Multiple Sclerosis No Family History Coronary Artery Disease No Family History Bipolar disorder No Family History Schizophrenia No Family History PAST MEDICAL HISTORY Diagnosis Date Aspiration pneumonia (HCC) 04/2019 [facility] DDD (degenerative disc disease) Depression Diabetes mellitus without mention of complication Fibromyalgia Hyperlipidemia Iron deficiency anemia, unspecified Dr Duong Lupus (HCC) Obesity Vitamin D deficiency 2012 PAST SURGICAL HISTORY Procedure Laterality Date ARTHRP KNE CONDYLEANDPLATU MEDIALANDLAT COMPARTMENTS Left 02/25/2017 Dr. Eric Jones CARDIAC CATH 2007 no stenosis minimal plaque CARPAL TUNNEL bilateral CHOLECYSTECTOMY 1997 Cholecystectomy COLONOSCOPY AND POLYPECTOMY 07/27/13 TA x 2, hyperplastic x 5. Repeat in 3y. COLONOSCOPY FLX DX W/COLLJ SPEC WHEN PFRMD 08/15/07 Repeat in COLONOSCOPY FLX DX W/COLLJ SPEC WHEN PFRMD 07/11/2016 Colonoscopy COLONOSCOPY FLX DX W/COLLJ SPEC WHEN PFRMD 12/24/2019 Colonoscopy EGD ELLIOTT (more content not included)... [facility] 05-21-2022 History of Present illness Narrative 67 year old female with c/o I need a colonoscopy . Change in stool: thinner over last couple months: goes in spurts, smaller stools, soft, thinner, bright red blood in water. Has some incontinence on wiping. Not straining. No pain with defecation. No heart burn or reflux Not using carafate. Taking omeprazole 40mg daily AC Feeling tired, weak, but feels she is not depressed. 16lb weight loss since 01/01/2022 but correlates with Trulicity started 11/20/2021. Component Latest Ref Rng & Units 02/21/2022 05/18/2022 WBC 3.70 - 11.00 k/uL 10.56 11.83 (H) RBC 3.90 - 5.20 m/uL 4.51 5.07 Hemoglobin 11.5 - 15.5 g/dL 11.9 13.0 Hematocrit 36.0 - 46.0 % 38.9 43.8 MCV 80.0 - 100.0 fL 86.3 86.4 MCH 26.0 - 34.0 pg 26.4 25.6 (L) MCHC 30.5 - 36.0 g/dL 30.6 29.7 (L) RDW-CV 11.5 - 15.0 % 17.5 (H) 16.8 (H) Platelet Count 150 - 400 k/uL 287 295 MPV 9.0 - 12.7 fL 10.1 10.4 Neut% % 76.3 74.7 Abs Neut (ANC) 1.45 - 7.50 k/uL 8.06 (H) 8.85 (H) Lymph% % 14.4 19.1 Abs Lymph 1.00 - 4.00 k/uL 1.52 2.26 [place]% % 4.1 5.2 Abs [place] <0.87 k/uL 0.43 0.61 [place]% % 3.8 0.0 Abs Eosin <0.46 k/uL 0.40 <0.03 Baso% % 0.5 0.3 Abs Baso <0.11 k/uL 0.05 0.03 Immature Gran % % 0.9 0.7 IMMATURE GRANS (ABS) <0.10 k/uL 0.10 (H) 0.08 NRBC /100 WBC 0.0 0.0 Absolute nRBC <0.01 k/uL <0.01 <0.01 DTYPE Auto Auto Iron 41 - 186 ug/dL 51 62 TIBC 232 - 386 ug/dL 321 354 Transferrin Saturation 15.0 - 57.0 % 15.9 17.5 Ferritin 14.7 - 205.1 ng/mL 106.0 98.6 Diabetes Mellitus Type 2: Current medications: Empaglifozin 10mg daily Dulaglutide 1.5mg SC weekly Taking medication as directed consistently? Yes Medication side effects: none-doing well Medical Issues / Complications: hyperlipidemia Checking blood sugars at home? Yes. 120-125 Watching diet? Yes Physical Activity: Regular Hypoglycemic spells? No Any visual disturbance? No Chest pain? No New numbness, tingling or loss of sensation? No Any recent foot problems, sores or rashes? No Any recent or sudden weight loss? No Change in urination? No. If yes: Any recent illness? No Last eye exam: up to date. Last foot exam: up to date. HBA1C: Hemoglobin A1C Date Value 10/03/2021 6.4 % 08/15/2021 6.4 % 02/07/2021 5.5 % 10/31/2020 5.5 04/14/2020 5.8 % ) CMP: Glucose 263 10/12/2021 BUN 22 10/12/2021 Creatinine 1.34 10/12/2021 Sodium 137 10/12/2021 Potassium 4.1 10/12/2021 Chloride 101 10/12/2021 CO2 23 10/12/2021 Protein, Total 7.0 02/07/2021 Albumin 4.4 05/03/2021 Calcium 9.1 10/12/2021 Alkaline Phosphatase 110 02/07/2021 Bilirubin, Total 0.2 02/07/2021 AST 22 05/03/2021 ALT 20 05/03/2021 Last 2 Encounter Wt Readings: Date: Wt: 05/21/2022 93 kg (205 lb) 03/07/2022 98.9 kg (218 lb) Hyperlipidemia: Current medication Pravastatin 20mg daily HS Taking medication consistently Yes Observing low cholesterol high fiber diet Yes Muscle aches No Stomach complaints/ diarrhea as above Last 2 Lipids: Component Latest Ref Rng & Units 05/28/2019 04/14/2020 Cholesterol, Total <200 mg/dL 191 135 Triglyceride <150 mg/dL 348 (H) 141 HDL Cholesterol >39 mg/dL 49 43 LDL Cholesterol <100 mg/dL 72 64 Non HDL Cholesterol <130 mg/dL 142 (H) 92 Fasting Time hrs 1 Unknown VLDL Cholesterol <30 mg/dL 70 (H) 28 TC:HDL Ratio <5.10 3.90 3.14 LDL:HDL Ratio <2.54 1.47 1.49 HISTORIES FAMILY HISTORY Problem Relation Age of Onset Hypertension Mother Hyperlipidemia Mother Cancer Father metastatic Diabetes Maternal Grandmother Heart Failure Maternal Grandfather Thyroid No Family History Factor 5 Leiden No Family History Stroke No Family History Blood Clots No Family History Auto-Immune Disorder No Family History Systemic Lupus Erythematosus No Family History Multiple Sclerosis No Family History Coronary Artery Disease No Family History Bipolar disorder No Family History Schizophrenia No Family History PAST MEDICAL HISTORY Diagnosis Date Aspiration pneumonia (HCC) 04/2019 [facility] DDD (degenerative disc disease) Depression Diabetes mellitus without mention of complication Fibromyalgia Hyperlipidemia Iron deficiency anemia, unspecified Dr Duong Lupus (HCC) Obesity Vitamin D deficiency 2012 PAST SURGICAL HISTORY Procedure Laterality Date ARTHRP KNE CONDYLE&PLATU MEDIAL&LAT COMPARTMENTS Left 02/25/2017 Dr. Eric Jones CARDIAC CATH 2007 no stenosis minimal plaque CARPAL TUNNEL bilateral CHOLECYSTECTOMY 1997 Cholecystectomy COLONOSCOPY & POLYPECTOMY 07/27/13 TA x 2, hyperplastic x 5. Repeat in 3y. COLONOSCOPY FLX DX W/COLLJ SPEC WHEN PFRMD 08/15/07 Repeat in COLONOSCOPY FLX DX W/COLLJ SPEC WHEN PFRMD 07/11/2016 Colonoscopy COLONOSCOPY FLX DX W/COLLJ SPEC WHEN PFRMD 12/24/2019 Colonoscopy EGD TRANSORAL BIOPSY SINGLE/MULTIPLE 08/15/07 ESOPHAGOGASTRODUODENOSCOPY TRANSORAL DIAGNOSTIC 02/01/2010 EGD ESOPHAGOGASTRODUODENOSCOPY TRANSORAL DIAGNOSTIC 07/27/13 gastritis ESOPHAGOGASTRODUODENOSCOPY TRANSORAL DIAGNOSTIC 07/11/2016 EGD ESOPHAGOGASTRODUODENOSCOPY TRANSORAL DIAGNOSTIC 12/24/2019 EGD LIG/TRNSXJ FLP TUBE ABDL/VAG APPR UNI/BI 1983 Tubal ligation LUMBAR DISCOGRAM OPEN REPAIR OF ROTATOR CUFF ACUTE 12/31/08 Rotator cuff repair, right PAST SURGICAL HISTORY OF 2001 RIGHT ANKLE ORIF PAST SURGICAL HISTORY OF low back injections PAST SURGICAL HISTORY OF 04/30/2011 Anterior lumbar interbody fusion L4-5 L5-S1 PAST SURGICAL HISTORY OF 05/30/11 Posterior lumbar fusion S SPINAL CORD STIM/IMPLANTN 01/2014 Social History Tobacco Use Smoking status: Former Packs/day: 1.00 Years: 0.50 Pack years: 0.50 Types: Cigarettes Quit date: 04/05/1985 Years since quittin.1 Smokeless tobacco: Never Tobacco comments: Smoked for 6 months total. Vaping Use Vaping Use: Never used Substance Use Topics Alcohol use: No Drug use: No ACTIVE PROBLEM LIST Mixed Hyperlipidemia Iron Deficiency Anemia Lumbosacral Radiculopathy At L5 Anxiety Enthesopathy of Ankle and Tarsus, Unspecified Lupus ([facility]) Fibromyalgia Ddd (Degenerative Disc Disease), Lumbar Obesity Vitamin D Deficiency Other Pain Disorders Related to Psychological Factors Malabsorption of Iron Type 2 Diabetes Mellitus With Diabetic Neuropathy, Without Long-Term Current Use of Insulin ([facility]) Primary Osteoarthritis of Left Knee Abnormal Ekg Absolute Anemia Diastolic Dysfunction, Left Ventricle Chronic Renal Insufficiency, Stage 3 (Moderate) ([facility]) Moderate Episode of Recurrent Major Depressive Disorder ([facility]) Panic Disorder With Agoraphobia Chronic Post-Traumatic Stress Disorder (Ptsd) Type 2 Diabetes Mellitus With Stage 3 Chronic Kidney Disease, Without Long-Term Current Use of Insulin ([facility]) Current Outpatient Medications Medication Sig Dispense Refill hydrOXYchloroQUINE (PLAQUENIL) 200 mg tablet Take 1 tablet by mouth once daily. 90 tablet 1 empagliflozin (JARDIANCE) 10 mg tablet Take 1 tablet by mouth once daily. Take 1 tablet once daily in the morning 90 tablet 3 sucralfate (CARAFATE) 1 gram tablet Take 1 tablet by mouth three times daily before meals. 90 tablet 5 furosemide (LASIX) 20 mg tablet Take 1 tablet by mouth twice daily. Patient may adjust from baseline 40 mg daily up to 40 mg twice daily based on weight gain greater than 3 pounds plus either increased shortness of breath or increased swelling. 90 tablet 1 lamoTRIgine (LAMICTAL) 100 mg tablet Take 1 tablet by mouth twice daily. 180 tablet 0 Back Brace misc 1 Each once daily. M51.36 DDD (degenerative disc disease), lumbar (primary encounter diagnosis) M79.7 Fibromyalgia M54.17 Lumbosacral radiculopathy at L5 1 Each 0 omeprazole (PRILOSEC) 40 mg capsule Take 1 capsule by mouth once daily. 90 capsule 1 dulaglutide (TRULICITY) 1.5 mg/0.5 mL pen injector Inject 1.5 mg subcutaneously one time a week. Inject once per week. Discard Pen After 2 mL 11 cholecalciferol, Vitamin D3, (VITAMIN D3) 1,250 mcg (50,000 unit) cap capsule Take 1 capsule by mouth one time a week. 4 capsule 11 nystatin (MYCOSTATIN) powder Apply 1 application to affected area twice daily. 17 g 5 metFORMIN ER (GLUCOPHAGE XR) 500 mg 24 hr tablet Take 1 tablet by mouth twice daily with meals. Currently on hold but may restart if needed 180 tablet 3 pravastatin (PRAVACHOL) 20 mg tablet Take 1 tablet by mouth daily at bedtime. 90 tablet 3 acetaminophen (TYLENOL) 500 mg tablet Take 1,000 mg by mouth every 8 hours as needed. ibuprofen (MOTRIN) 200 mg tablet Take 600 mg by mouth twice daily as needed. acetaminophen 325 mg-caffeine 40 mg-butalbital 50 mg (FIORICET) per capsule Take 1 capsule by mouth every 6 hours as needed. 12 capsule 0 fluticasone (FLONASE) 50 mcg/actuation nasal spray Use 2 Sprays in each nostril once daily. Rinse mouth after use. 1 Bottle 11 Insulin [place], Disposable, (PEN NEEDLES) 31 gauge x 1/4 ndle Once a day for insulin usage. 100 Each 3 blood sugar diagnostic (BLOOD GLUCOSE TEST) test strip Test blood sugar(s) 3 times daily. Dx: Type 2 DM - Uncontrolled E11.65 Insulin: Yes 100 Strip 11 blood sugar diagnostic (FREESTYLE LITE STRIPS) test strip Test blood sugar(s) 3 times daily. Dx: 250.02. Insulin: Yes 100 Strip 3 gabapentin (NEURONTIN) 300 mg capsule Take 1 capsule by mouth three times daily. 0 No current facility-administered medications for this visit. MAMMOGRAM due on 06/12/2018 BONE DENSITY Never done LDL CHOLESTEROL due on 04/14/2021 HBA1C due on 04/04/2022 ADVANCE DIRECTIVE DISCUSSION due on 04/08/2022 EXAM: BP 118/60 Pulse 81 Wt 93 kg (205 lb) LMP 12/07/2007 SpO2 97% BMI 34.64 kg/m Pleasant overweight adult woman in no acute distress. Alert and oriented all spheres. Normal affect and cognition. Speech normal. No deficits to learning or comprehension. Skin warm, dry, pink to lips and nailbeds. Normal turgor. Respirations regular and unlabored. HEENT: NCAT. No scleral icterus or conjunctival injection. TM's clear. Nose and oropharynx free from injection or lesion. Oral membranes moist and pink. No cervical lymph nodes. Thyroid non-tender, no masses, or enlargement. Carotids pulses 2+/4+ without bruits. No JVD with HOB at 30 degrees. Chest is normal shape. Lungs are clear to all angel with good air exchange through out. HRRR without murmur or gallop. No lifts, heaves, or rubs. Abdomen: active bowel sounds throughout, soft, nontender, no masses or organomegaly. No CVAT. Extrem: no clubbing or cyanosis. Edema: none. Extremities are warm and pink with prompt capillary refill. Patient declined rectal exam. Offered female provider- declined ASSESSMENT/PLAN: 1. Change in bowel function - ICD9: 787.99, ICD10: R19.8 (primary diagnosis) - CONSULT TO GENERAL SURGERY - COMP METABOLIC PANEL 2. GERD without esophagitis - ICD9: 530.81, ICD10: K21.9 - controlled on medication - OMEPRAZOLE 40 MG CAPSULE,DELAYED RELEASE 3. Screening for colon cancer - ICD9: V76.51, ICD10: Z12.11 - CONSULT TO GENERAL SURGERY 4. Screening for cervical cancer - ICD9: V76.2, ICD10: Z12.4 - Completed pelvic and breast exam - Encouraged monthly BSE - Follow up for annual exam in one year. - CONSULT TO GYNECOLOGY 5. Type 2 diabetes mellitus with diabetic neuropathy, without long-term current use of insulin (HCC) - ICD9: 250.60, 357.2, ICD10: E11.40 Controlled. - Continue current medications - HGB A1C - BASIC METABOLIC PNL - LIPID PANEL BASIC 6. Mixed hyperlipidemia - ICD9: 272.2, ICD10: E78.2 - suboptimal control - Continue current medication. - Encouraged following a low fat, low cholesterol diet. - LIPID PANEL BASIC 7. Hematochezia - ICD9: 578.1, ICD10: K92.1 No NETTA. Discussed like site rectal. 8. Weight loss - ICD9: 783.21, ICD10: R63.4 Follows expected pattern with dulaglutide. No signs of wasting of malnutrition. - COMP METABOLIC PANEL Ailyn Carson PA-C documented in this encounter [facility] 05-14-2022 Miscellaneous Notes The following approved medication requests have been transmitted electronically. Requested Prescriptions Signed Prescriptions Disp Refills hydrOXYchloroQUINE (PLAQUENIL) 200 mg tablet 90 tablet 1 Sig: Take 1 tablet by mouth once daily. Authorizing Provider: TYLER DIXON APRN.TODD Patient has been identified by name and date of : Yes RX INSTRUCTIONS: Patient aware RX will be sent to pharmacy. No need to notify patient. Eye exam for Plaquenil toxicity received from [facility]. Exam date was 11/10/21. Exam shows no signs of Plaquenil toxicity. LAST APPOINTMENT: 04/28/2021 UPCOMING APPOINTMENT: 05/24/2022 LABS: Hemoglobin (g/dL) Date Value 02/21/2022 11.9 05/15/2021 11.1 Hematocrit (%) Date Value 02/21/2022 38.9 05/15/2021 37.7 WBC (k/uL) Date Value 02/21/2022 10.56 05/15/2021 11.79 Platelet Count (k/uL) Date Value 02/21/2022 287 05/15/2021 317 AST Date Value Ref Range Status 05/03/2021 22 13 - 35 U/L Final ALT Date Value Ref Range Status 05/03/2021 20 7 - 38 U/L Final Creatinine Date Value Ref Range Status 10/12/2021 1.34 (H) 0.58 - 0.96 mg/dL Final No results found for: URICACID Ilda Quintanilla MA documented in this encounter [facility] 05-12-2022 Miscellaneous Notes Patient has been identified by name and date of : Yes Requested Prescriptions Pending Prescriptions Disp Refills empagliflozin (JARDIANCE) 10 mg tablet 30 tablet 5 Sig: Take 1 tablet by mouth once daily. Take 1 tablet once daily in the morning RX INSTRUCTIONS: Patient aware RX will be sent to pharmacy. No need to notify patient. Kristal Jarrett Ma documented in this encounter [facility] 05-11-2022 Note HNO ID: [id number] Author: Lorene Sumner LPN Service: ? Author Type: ? Type: Progress Notes Filed: 05/11/2022 2:20 PM Note Text: Eye exam for Plaquenil toxicity received from [facility]. Exam date was 11/10/21. Exam shows no signs of Plaquenil toxicity. Forms sent for scanning. Thank you [facility] 04-27-2022 Miscellaneous Notes Agnes with [employer] calling and requested OV notes that include information regarding pt's spinal issues for medicare review purposes regarding pt's back brace. 01/01/22 OV note faxed as requested to FAX# [phone]. Sara Serna RN documented in this encounter [facility] 04-17-2022 Miscellaneous Notes Patient is notified of message below and verbalized understanding of instructions. Stacie Higginbotham MA Last HCQ eye exam was normal in 11/2021. Please remind the patient that she is due for follow up. The following approved medication requests have been transmitted electronically. Requested Prescriptions Signed Prescriptions Disp Refills hydrOXYchloroQUINE (PLAQUENIL) 200 mg tablet 90 tablet 0 Sig: Take 1 tablet by mouth once daily. Authorizing Provider: TYLER DIXON APRN.TODD Patient has been identified by name and date of : Yes RX INSTRUCTIONS: Patient aware RX will be sent to pharmacy. No need to notify patient. Eye exam for Plaquenil toxicity received from [facility]. Exam date was 09/16/2020. Exam shows no signs of Plaquenil toxicity. LAST APPOINTMENT: 04/28/2021 UPCOMING APPOINTMENT: Visit date not found LABS: Hemoglobin (g/dL) Date Value 02/21/2022 11.9 05/15/2021 11.1 Hematocrit (%) Date Value 02/21/2022 38.9 05/15/2021 37.7 WBC (k/uL) Date Value 02/21/2022 10.56 05/15/2021 11.79 Platelet Count (k/uL) Date Value 02/21/2022 287 05/15/2021 317 AST Date Value Ref Range Status 05/03/2021 22 13 - 35 U/L Final ALT Date Value Ref Range Status 05/03/2021 20 7 - 38 U/L Final Creatinine Date Value Ref Range Status 10/12/2021 1.34 (H) 0.58 - 0.96 mg/dL Final No results found for: URICACID Ilda Quintanilla MA documented in this encounter [facility] 03-31-2022 Miscellaneous Notes Patient has been identified by name and date of : Yes Requested Prescriptions Pending Prescriptions Disp Refills sucralfate (CARAFATE) 1 gram tablet 90 tablet 5 Sig: Take 1 tablet by mouth three times daily before meals. RX INSTRUCTIONS: Patient aware RX will be sent to pharmacy. No need to notify patient. Su Martinez LPN documented in this encounter [facility] 03-23-2022 Miscellaneous Notes Patient phones requesting refills as follows: Requested Prescriptions Pending Prescriptions Disp Refills furosemide (LASIX) 20 mg tablet 90 tablet 1 Sig: Take 1 tablet by mouth twice daily. Patient may adjust from baseline 40 mg daily up to 40 mg twice daily based on weight gain greater than 3 pounds plus either increased shortness of breath or increased swelling. JITENDRA 01/01/22 NOV 07/02/22 Please review and advise. James López LPN documented in this encounter [facility] 03-07-2022 History of Present illness Narrative Images from the original note were not included. PSYC FOLLOW UP - PSYCHIATRIC PROGRESS NOTE DIAGNOSIS: MDD, moderate, recurrent Panic disorder with agoraphobia Tremors (worsened with anxiety but more likely benign in nature) Chronic PTSD Medical Marijuana use GAF: -60-51 Moderate symptoms or moderate difficulty in social, occupational or school functioning. TREATMENT PLAN: Continue Lamictal at the same dose. Encouraged patient to start individual psychotherapy with Dr. Ambrocio. Follow up in 3 months or sooner if needed The effects and side effects of all the medications were reviewed in detail with the patient. They are aware of the rash side effect associated with Lamictal. She is in agreement with the treatment plan and will reach out with any questions, concerns, or worsening of symptoms prior to the next appointment. CC: tremors and anxiety HPI:Nikki Carr is a 66 year old Female with a history of MDD, panic disorder, tremors, and PTSD presenting today for follow-up. Date of last visit: 12/13/2021 Plan from last visit: Discontinue Propanolol due to decrease in blood pressure Continue taking Lamictal at prescribed dose Continue taking medical marijuana for pain. Appears to help with mood and anxiety also. Follow up in 3 months Today Nikki shares that in the last 4 months, 4 of her friends became widows and her ex who she was friends with . She was trying to be there for her friends. Her mother has broken her wrist but she has been able to get better and drive. She is independent. Nikki is worried about her mother's memory.She does not feel like decorating for [place] this year. She has decided to stop using medical marijuana as she did not think that it was helpful. She is also concerned about the cost. She has concerns about her pain. She spent Thanksgiving with her daughter. Sad that she didn't get to see all her children. Worries about her grand daughter and her mental health and behavior. She is sad that she does not have any money to spend for [place]. Misses her close friend who moved away. She is not sure if she will be returning back after [place]. We discussed starting therapy to help with her mood and situational loss. She is not interested due to her experience with therapy in the past. Interval Progress: Slightly worse Risks and benefits of the medication, including any black box warnings, were discussed with the patient. Social History: See HPI PATIENT DATA: Generalized Anxiety Disorder Scale (TUSHAR-7) TUHSAR - 7 SCORES 07/12/2021 08/30/2021 03/07/2022 TUSHAR-7 Score 9 8 12 (0-4) minimal anxiety, (5-9) mild anxiety, (10-14) moderate anxiety, (15-21) severe anxiety Patient Health Questionnaire (PHQ-9) PHQ-9 08/30/2021 12/13/2021 03/07/2022 Score 20 13 18 (0-4) minimal depression, (5-9) mild depression, (10-14) moderate depression, (15-19) moderately severe depression, (20-27) severe depression ROS: See HPI General: Negative for fever, malaise, unintentional weight loss HEENT: Negative for recent changes in vision or hearing, no nasal drainage Respiratory: Negative for cough, wheezing or SOB Cardiovascular: Negative for chest pain GI: Negative for nausea, vomiting, change in bowel habits MUSCULOSKELETAL: Negative for acute back or joint pain SKIN: Negative for rash NEURO: Negative for headaches, seizures, focal neurological deficits All other systems negative. VITAL SIGNS: BP 104/58 (03/07/22 1549) Temp Pulse 70 (03/07/22 1549) Resp SpO2 MENTAL STATUS EXAMINATION: Appearance: Appropriately groomed, appears stated age Behavior: Appropriately engaged Psychomotor: No psychomotor agitation Cognition Level of Consciousness: Awake and alert. No fluctuation in wakefulness. Orientation: Grossly oriented Memory: Intact Attention/Concentration: Good Fund of Knowledge: Able to demonstrate an awareness of current events. Mood: Sad Affect: Congruent to mood Speech/Language: Appropriate tone, prosody, yen, phonetics, and syntax Thought Form: Goal-directed. No loosening of associations. Thought Content: No delusions noted or endorsed. Perceptual Disturbances: Did not appear to respond to auditory stimuli. Safety: Suicidal Ideations: No suicidal ideation, intent or plan. Homicidal Ideations: No homicidal ideation, intent or plan. Insight: Appropriate Judgment: Appropriate I spent a total of 28 minutes on the date of the service which included preparing to see the patient, [id number] patient care, completing clinical documentation, and counseling and educating the patient/family/caregiver, ordering medications/labs. Cary Loredo APRN.[facility] March 07, 2022 3:53 PM This note was partially generated using Dragon voice recognition system. Note was reviewed for accuracy. There may be minor misspellings or grammar miscues with Vers[employer]on voice recognition. documented in this encounter [facility] 02-21-2022 History of Present illness Narrative Chief Complaint Patient presents with: Established Patient HPI: Nikki Carr is a 67 year old female who presents here today for follow up NETTA. Per Dr. Duong's previous note: H/o rheumatoid arthritis, lupus, hyperlipidemia, type 2 diabetes (neuropathy) and congestive heart failure. Received IV iron Dextran in 1998--former patient of Dr. Armijo. CBC in 2005 showed a hemoglobin of 10.8 g/dL , MCV was 65.2 platelet count of 433, ferritin low at 8.2, serum iron was low at 27. CBC and Rachel in 2007 was 9.4 g/dL MCV was 64.8, count 559. She underwent colonoscopy and EGD that showed colonic mucosa was entirely normal no bleeding sites were found. The body of the antrum appeared erythematous and changes consistent with chronic gastritis. She underwent repeat EGD February 01, 2010. There was mild erythema in the body and antrum of the stomach without ulcerations. Biopsy of duodenal mucosa showed no evidence of celiac disease. Hemoccult stools on February 14, 2010 were negative 3/3 specimens. Capsule endoscopy performed on March 22, 2010 showed no pathology in the small bowel. Minimally or edema in the prepyloric antrum was seen. She had been on oral iron for 2 years without any resolution in her anemia. She also she also had constipation and abdominal cramping from the oral iron. PREVIOUS THERAPY: 1) Iron dextran (2gm) 04/13/2010. Received iron sucrose infusions 06/2013, 03/2014 x8. EGD/Colonoscopy 07/2013-Dr. Xiong. F/u scopes in 3 years. Colonoscopy/EGD July 11, 2016. Next due in 5 years. Iron infusions-Early 2016. September 2017. Pt. received iron sucrose October 12-11/02/19. Last received iron sucrose September 2021. I'm depressed. Pt. is followed by a psychiatrist. Appetite: Off and on. Energy level: I have none. Denies fevers or recent illness. Resp:denies cough or sob Cardiac:denies chest pain/palpitations GI:denies abd pain, n/v, moving bowels regularly :denies dysuria/hematuria Extrem:chronic back pain-followed by CPM-using medical marijuana Neuro:+neuropathy to feet Skin:denies rashes Heme:denies bleeding The ROS is otherwise negative. Past medical history, appointments, medications, allergies reviewed. No changes. EXAM: BP 119/65 Pulse 68 Temp 36.1 C (97 F) (Temporal) Ht 163.8 cm (5' 4.5 ) Wt 99.6 kg (219 lb 8 oz) LMP 12/07/2007 BMI 37.10 kg/m APPEARANCE Well appearing, alert, in no acute distress, well-hydrated, well nourished. HEART RRR with normal S1 and S2, no murmurs LUNG clear to auscultation LYMPH NODES No cervical lymphadenopathy, No supraclavicular lymphadenopathy, and No axillary lymphadenopathy. ABDOMEN bowel sounds normoactive, soft, non-tender, non-distended EXTREMITIES No edema NEURO Awake, alert and oriented x 3, Normal gait, and No involuntary motions. SKIN Skin color, texture, turgor normal, no suspicious rashes or lesions LABS: Component Latest Ref Rng & Units 05/03/2021 05/15/2021 08/15/2021 02/21/2022 WBC 3.70 - 11.00 k/uL 12.71 (H) 11.79 (H) 9.20 10.56 RBC 3.90 - 5.20 m/uL 4.44 4.24 3.75 (L) 4.51 Hemoglobin 11.5 - 15.5 g/dL 11.5 11.1 (L) 9.8 (L) 11.9 Hematocrit 36.0 - 46.0 % 40.6 37.7 32.5 (L) 38.9 MCV 80.0 - 100.0 fL 91.4 88.9 86.7 86.3 MCH 26.0 - 34.0 pg 25.9 (L) 26.2 26.1 26.4 MCHC 30.5 - 36.0 g/dL 28.3 (L) 29.4 (L) 30.2 (L) 30.6 RDW-CV 11.5 - 15.0 % 15.4 (H) 15.2 (H) 16.6 (H) 17.5 (H) Platelet Count 150 - 400 k/uL 312 317 243 287 MPV 9.0 - 12.7 fL 11.0 9.8 9.9 10.1 Neut% % 76.0 75.7 76.2 76.3 Abs Neut (ANC) 1.45 - 7.50 k/uL 9.66 (H) 8.93 (H) 7.01 8.06 (H) Lymph% % 13.6 13.1 11.4 14.4 Abs Lymph 1.00 - 4.00 k/uL 1.73 1.54 1.05 1.52 [place]% % 5.2 6.1 4.9 4.1 Abs [place] <0.87 k/uL 0.66 0.72 0.45 0.43 Eosin% % 4.7 4.6 6.0 3.8 Abs Eosin <0.46 k/uL 0.60 (H) 0.54 (H) 0.55 (H) 0.40 Baso% % 0.5 0.5 0.4 0.5 Abs Baso <0.11 k/uL 0.06 0.06 0.04 0.05 Immature Gran % % 1.1 0.9 IMMATURE GRANS (ABS) <0.10 k/uL 0.10 (H) 0.10 (H) NRBC /100 WBC 0.0 0.0 Absolute nRBC <0.01 k/uL <0.01 <0.01 <0.01 <0.01 DTYPE Auto Auto Nucleated Reds 0 /100 WBC 0.0 0.0 Diff Type Auto Diff Auto Diff Iron studies: Pending ASSESSMENT/PLAN: 1. Other iron deficiency anemia - ICD9: 280.8, ICD10: D50.[address] Duong's previous note 06/20/20: Assessment: -The patient is a 65-year-old female with a history of iron deficiency anemia. She has been through multiple endoscopies and capsule endoscopy with no particular evidence of significant GI bleed. She has received multiple parenteral courses of iron over the last 10 years. Most recently early June of this year. -Her ferritin was improved when last checked. She was since hospitalized for congestive heart failure. She has lost 21 pounds since of hospitalization through diuresis. -Still has mild anemia. -Incidentally, reviewed old CT images from [facility]. 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 Calcified lesion that was stable in 2016 and April [address] imaging. I personally reviewed those 2 CT scans with 1 done in 2009. Was stable on CT imaging from 2016 to 2019. Plan: -Recheck of iron as well as other lab work to rule out other causes of anemia. -Repeat CBC/iron studies in 3 months. -Office visit in 6 months. - No new concerning findings on exam. - Longstanding NETTA. - Previously intolerant to oral iron. Responds with iron sucrose. - No bleeding issues. - Last received iron sucrose September 2021. - Reviewed CBC with pt. - Iron studies pending. - Continue follow up with pain mgmt. - Advised pt. to call her psychiatrist for appointment. - Follow up pending iron studies. - Pt. aware to call office with any questions/concerns. The patient indicates understanding of these issues and agrees with the plan. All documentation from previous visit of 08/15/21-Dr. Duong/myself was copied and pasted, documentation has been reviewed and edited as necessary for today's visit. Nhung Wallis APRN.[facility] documented in this encounter [facility] 12-13-2021 History of Present illness Narrative Images from the original note were not included. PSYC FOLLOW UP - PSYCHIATRIC PROGRESS NOTE DIAGNOSIS: MDD, moderate, recurrent Panic disorder with agoraphobia Tremors (worsened with anxiety but more likely benign in nature) Chronic PTSD Medical Marijuana use GAF: -60-51 Moderate symptoms or moderate difficulty in social, occupational or school functioning. TREATMENT PLAN: Discontinue Propanolol due to decrease in blood pressure Continue taking Lamictal at prescribed dose Continue taking medical marijuana for pain. Appears to help with mood and anxiety also. Follow up in 3 months CC: tremors and anxiety HPI:Nikki Carr is a 66 year old Female with a history of MDD, panic disorder, tremors, and PTSD presenting today for follow-up. Date of last visit: 09/01/21 Plan from last visit: Add Propranolol to help with the physical symptoms of anxiety and tremors. Continue Lamictal at the same dose. Discussed ways of managing her stress eating as patient is concerned about weight gain. Daughter will be present for the appointments moving forward as she assists patient with medications. Follow up in 4 to 5 weeks. Consider the functional movement disorders shared medical appointment if even after improvement in anxiety, patient continues to struggle with her tremors. Today Nikki reports her mood as okay Her mother has had recent fall and she has had to physically cares for her mother. We spoke with Cari (patient's daughter) over the phone for collateral. Her daughter reports that patient was not feeling well when taking the propranolol. The daughter reported that her blood pressure was low. Patient stated that she fell 3 times while on the propanolol. Daughter reports that patient has started medical marijuana on October 02. Daughter believes that this has helped with pain. The daughter states that the patient's depression has gotten better and that she has become more social. Per patient, her sleep has been off since running out of medical marijuana . She says her sleep is better on the marijuana. We discussed better planning options to promote medical marijuana compliance. She is having stressors regarding the supervision of her mother while she attempts to warp picker medication which has lead her to run out of medications for a couple of days before procuring more. She reports tremors when anxious. She is trimerous on assessment. The tremors improve when patient takes her medical marijuana per patient. She cannot resume craft activity like she used too but can hold objects again.She has stopped the propanolol in October. Denies any dizziness. Follow up in 3 months Interval Progress: Slightly improved Risks and benefits of the medication, including any black box warnings, were discussed with the patient. Social History: See HPI PATIENT DATA: Generalized Anxiety Disorder Scale (TUSHAR-7) TUSHAR - 7 SCORES 05/18/2021 07/12/2021 08/30/2021 TUSHAR-7 Score 10 9 8 (0-4) minimal anxiety, (5-9) mild anxiety, (10-14) moderate anxiety, (15-21) severe anxiety Patient Health Questionnaire (PHQ-9) PHQ-9 05/18/2021 07/12/2021 08/30/2021 Score 19 17 20 (0-4) minimal depression, (5-9) mild depression, (10-14) moderate depression, (15-19) moderately severe depression, (20-27) severe depression ROS: General: Negative for fever, malaise, unintentional weight loss HEENT: Negative for recent changes in vision or hearing, no nasal drainage Respiratory: Negative for cough, wheezing or SOB Cardiovascular: Negative for chest pain GI: Negative for nausea, vomiting, change in bowel habits MUSCULOSKELETAL: Negative for acute back or joint pain SKIN: Negative for rash NEURO: Negative for headaches, seizures, focal neurological deficits All other systems negative. VITAL SIGNS: BP Temp Pulse Resp SpO2 MENTAL STATUS EXAMINATION: Appearance: Appropriately groomed, appears stated age Behavior: Appropriately engaged Psychomotor: Tremors Cognition Level of Consciousness: Awake and alert. No fluctuation in wakefulness. Orientation: Grossly oriented Memory: Intact Attention/Concentration: Good Fund of Knowledge: Able to demonstrate an awareness of current events. Mood: Anxious Affect: Full Speech/Language: Appropriate tone, prosody, yen, phonetics, and syntax Thought Form: Goal-directed. No loosening of associations. Thought Content: No delusions noted or endorsed. Perceptual Disturbances: Did not appear to respond to auditory stimuli. Safety: Suicidal Ideations: No suicidal ideation, intent or plan. Homicidal Ideations: No homicidal ideation, intent or plan. Insight: Appropriate Judgment: Appropriate I spent a total of 35 minutes on the date of the service which included preparing to see the patient, [id number] patient care, completing clinical documentation, and counseling and educating the patient/family/caregiver, ordering medications/labs. Sandeep Tripp December 13, 2021 3:30 PM This note was partially generated using Domosite voice recognition system. Note was reviewed for accuracy. There may be minor misspellings or grammar miscues with Versafeon voice recognition. Associated attestation - Cary Loredo APRN.CNP - 12/18/2021 7:42 PM EDT Cary Orosco APRN.CNP, personally performed the services described in this documentation. All medical record entries made by the [employer] student were at my direction and in my presence. I have reviewed the chart and discharge instructions (if applicable) and agree that the record reflects my personal performance and is accurate and complete. Cary Loredo APRN.CNP December 18, 2021 7:42 PM documented in this encounter [facility] 12-07-2021 Miscellaneous Notes The patient did not log in for her virtual appointment. I called and left a message for her to call back and reschedule if needed. Thanks, Tyler Dixon APRN.CNP documented in this encounter [facility] 11-28-2021 Miscellaneous Notes Patient informed via VM (VM verified) and advised to call back with any questions or concerns. Lizzie Weinstein Remind she should not take other medication in the same hour as carafate as it can absorb them. The following approved medication requests have been transmitted electronically. Requested Prescriptions Signed Prescriptions Disp Refills sucralfate (CARAFATE) 1 gram tablet 90 tablet 5 Sig: Take 1 tablet by mouth three times daily before meals. Authorizing Provider: Ailyn CARSON PA-C Patient reports her refill request for sucralfate 1 gr 1 tab 3 x's day, was denied by pcp office. Patient does not understand why. Reports she has not taken it for 1-2 weeks and needs it. Reports she is feeling nauseous and cannot eat anything but crackers. Reports she is also losing weight. Asking provider to please send refill to pharmacy. Pended. Last ov: 09-29-21 documented in this encounter [facility] 11-27-2021 Miscellaneous Notes Patient phones requesting refills as follows: Requested Prescriptions Pending Prescriptions Disp Refills omeprazole (PRILOSEC) 40 mg capsule 90 capsule 1 Sig: Take 1 capsule by mouth once daily. JITENDRA 09/29/21 NOV 01/01/22 Please review and advise. James López LPN documented in this encounter [facility] 11-20-2021 Miscellaneous Notes Duplicate order. Emilia Ca MA documented in this encounter [facility] 11-20-2021 Miscellaneous Notes Patient has been identified by name and date of : Yes Requested Prescriptions Pending Prescriptions Disp Refills sucralfate (CARAFATE) 1 gram tablet [Pharmacy Med Name: Sucralfate 1 GM Oral Tablet] 42 tablet 0 Sig: TAKE 1 TABLET BY MOUTH THREE TIMES DAILY BEFORE MEAL(S) RX INSTRUCTIONS: Patient aware RX will be sent to pharmacy. No need to notify patient. Emilia Ca MA Jitendra: 09/2021 Nov: 12/2021 Last refill: 09/2021 documented in this encounter [facility] 11-06-2021 Miscellaneous Notes Last office visit: 09/29/21 F/u scheduled: 01/01/22 Desirae Hernandez Ma documented in this encounter [facility] 10-20-2021 Miscellaneous Notes Patient phones requesting refills as follows: Pending Prescriptions Disp Refills TRULICITY 0.75 MG/0.5 ML SUBCUTANEOUS PEN INJECTOR 4 Each 5 Sig: Inject 0.75 mg subcutaneously one time a week. Inject dose once per week. Discard Pen After JON: No *Rx was refilled on 09/29/21. Pt to contact pharmacy for refills. message to pt advising the same. Please review and advise. James López LPN documented in this encounter [facility] 10-05-2021 Miscellaneous Notes Duplicate request. Refused Prescriptions Disp Refills hydrOXYchloroQUINE (PLAQUENIL) 200 mg tablet 90 tablet 0 Sig: Take 1 tablet by mouth once daily. JON: No Refused By: TYLER DIXON Reason for Refusal: A Refill not appropriate Tyler Dixon APRN.[employer] Patient's request for medication needs to be refused. Duplicate request. Pending Prescriptions Disp Refills HYDROXYCHLOROQUINE 200 MG TABLET 90 tablet 0 Sig: Take 1 tablet by mouth once daily. JON: No Thanks, Stacie Higginbotham MA documented in this encounter [facility] 10-05-2021 Miscellaneous Notes Has labs ordered as discussed for02/17/2022 I will add a urine to follow protein [facility] Get Medical Advice on 10/04/21 ALBUMIN/CREAT RATIO RND UR Francesco Zamora PA-C See mychart message. Any other labs besides the BMP? Pt had A1c, urine/creat, and Magnesium labs done yesterday. Desirae Hernandez Ma documented in this encounter [facility] 10-04-2021 Miscellaneous Notes Left detailed message for patient. Please let her know Phoned lab client services, they are unable to add on bmp. Pt will need redrawn. James López LPN It looks like a repeat bmp was not ordered with labs done yesteray, (I think Francesco may have wanted it)-are we able to add Pt called in and reports she was waiting on Francesco CUEVA to call her after lab results to come back and let her know if she should start taking the Jardiance. Per Pt ok to sent her a [employer] message letting her know. Start Empaglifozin if lab shows creatinine clearance estimated > 45 Component Ref Range & Units 1 d ago (10/03/21) 1 mo ago (08/15/21) 5 mo ago (05/03/21) 1 yr ago (08/02/20) 1 yr ago (06/30/20) 1 yr ago (04/14/20) 1 yr ago (12/09/19) Creatinine, Ur Random (UCRR) 20.0 - 300.0 mg/dL 83.8 54.2 70.7 R 65.0 R 45.5 R 37.9 R 97.8 R Albumin, Urine Random mg/L 12.5 <12.0 Albumin/Creat Ratio <30 mg/g 15 Not calculated Please send Pt message to advise. documented in this encounter [facility] 09-29-2021 Miscellaneous Notes Pt. called and went over instructions by Francesco to get labs done before she starts the Jardiance. Ok to start the Trulicity. Esmer Santana LPN documented in this encounter [facility] 09-29-2021 Instructions M Adelia Carson PA-C - 09/29/2021 3:08 PM EDT Dulaglutide: Patient drug information Access [employer] for additional drug information, tools, and databases. Copyright [employer]. All rights reserved. (For additional information see Dulaglutide: Drug information ) Brand Names: [place] Trulicity Brand Names: Kartik Trulicity Warning Drugs like this one have been shown to cause thyroid cancer in some animals. It is not known if this drug may cause thyroid cancer in humans. Call your doctor right away if you have a neck mass, trouble breathing, trouble swallowing, or hoarseness that will not go away. Do not use this drug if you have a health problem called Multiple Endocrine Neoplasia syndrome type 2 (MEN 2), or if you or a family member have had thyroid cancer. What is this drug used for? It is used to lower blood sugar in patients with high blood sugar (diabetes). It is used to lower the chance of heart attack, stroke, and in some people. What do I need to tell my doctor BEFORE I take this drug? If you are allergic to this drug; any part of this drug; or any other drugs, foods, or substances. Tell your doctor about the allergy and what signs you had. If you have any of these health problems: Type 1 diabetes or stomach or bowel problems. If you have ever had pancreatitis. If the patient is a child. Do not give this drug to a child. This is not a list of all drugs or health problems that interact with this drug. Tell your doctor and pharmacist about all of your drugs (prescription or OTC, natural products, vitamins) and health problems. You must check to make sure that it is safe for you to take this drug with all of your drugs and health problems. Do not start, stop, or change the dose of any drug without checking with your doctor. What are some things I need to know or do while I take this drug? Tell all of your health care providers that you take this drug. This includes your doctors, nurses, pharmacists, and dentists. Follow the diet and workout plan that your doctor told you about. Wear disease medical alert ID (identification). Check your blood sugar as you have been told by your doctor. Have blood work checked as you have been told by the doctor. Talk with the doctor. Do not drive if your blood sugar has been low. There is a greater chance of you having a crash. It may be harder to control blood sugar during times of stress such as fever, infection, injury, or surgery. A change in physical activity, exercise, or diet may also affect blood sugar. Kidney problems have happened with drugs like this one. Sometimes, kidney problems have needed to be treated in the hospital. Dialysis has also been needed. Talk with your doctor. Tell your doctor if you have upset stomach, throwing up, diarrhea, or too much sweating. Losing too much fluid may raise your chance of kidney problems. If you are dehydrated, talk with your doctor. This drug may prevent other drugs taken by mouth from getting into the body. If you take other drugs by mouth, you may need to take them at some other time than this drug. Talk with your doctor. Do not share pen or cartridge devices with another person even if the needle has been changed. Sharing these devices may pass infections from one person to another. This includes infections you may not know you have. Tell your doctor if you are , plan on getting , or are breast-feeding. You will need to talk about the benefits and risks to you and the baby. What are some side effects that I need to call my doctor about right away? WARNING/CAUTION: Even though it may be rare, some people may have very bad and sometimes deadly side effects when taking a drug. Tell your doctor or get medical help right away if you have any of the following signs or symptoms that may be related to a very bad side effect: Signs of an allergic reaction, like rash; hives; itching; red, swollen, blistered, or peeling skin with or without fever; wheezing; tightness in the chest or throat; trouble breathing, swallowing, or talking; unusual hoarseness; or swelling of the mouth, face, lips, tongue, or throat. Signs of a pancreas problem (pancreatitis) like very bad stomach pain, very bad back pain, or very bad upset stomach or throwing up. Signs of kidney problems like unable to pass urine, change in how much urine is passed, blood in the urine, or a big weight gain. Change in eyesight. Low blood sugar can happen. The chance may be raised when this drug is used with other drugs for diabetes. Signs may be dizziness, headache, feeling sleepy or weak, shaking, fast heartbeat, confusion, hunger, or sweating. Call your doctor right away if you have any of these signs. Follow what you have been told to do for low blood sugar. This may include taking glucose tablets, liquid glucose, or some fruit juices. What are some other side effects of this drug? All drugs may cause side effects. However, many people have no side effects or only have minor side effects. Call your doctor or get medical help if any of these side effects or any other side effects bother you or do not go away: Not hungry. Feeling tired or weak. It is common to have diarrhea, upset stomach, throwing up, or stomach pain with this drug. Call your doctor if any of these side effects get very bad, bother you, or do not go away. These are not all of the side effects that may occur. If you have questions about side effects, call your doctor. Call your doctor for medical advice about side effects. You may report side effects to your national health agency. How is this drug best taken? Use this drug as ordered by your doctor. Read all information given to you. Follow all instructions closely. It is given as a shot into the fatty part of the skin on the top of the thigh, belly area, or upper arm. Take with or without food. Drink lots of noncaffeine liquids unless told to drink less liquid by your doctor. Take the same day each week. If you will be giving yourself the shot, your doctor or nurse will teach you how to give the shot. Do not use if the solution is cloudy, leaking, or has particles. Do not use if solution changes color. Wash your hands before and after use. Move site where you give the shot each time. If you are also using insulin, you may inject this drug and the insulin in the same area of the body but not right next to each other. Do not mix this drug in the same syringe with insulin. Keep taking this drug as you have been told by your doctor or other health care provider, even if you feel well. Throw away needles in a needle/sharp disposal box. Do not reuse needles or other items. When the box is full, follow all local rules for getting rid of it. Talk with a doctor or pharmacist if you have any questions. What do I do if I miss a dose? Take a missed dose as soon as you think about it. If it is less than 3 days (72 hours) until your next dose, skip the missed dose. Take your next dose on your normal day. Do not take 2 doses at the same time or extra doses. How do I store and/or throw out this drug? Store in a refrigerator. Do not freeze. Do not use if it has been frozen. If needed, you may store at room temperature for up to 14 days. Write down the date you take this drug out of the refrigerator. If stored at room temperature and not used within 14 days, throw this drug away. Store in the original container to protect from light. Protect from heat. Keep all drugs in a safe place. Keep all drugs out of the reach of children and pets. Throw away unused or drugs. Do not flush down a toilet or pour down a drain unless you are told to do so. Check with your pharmacist if you have questions about the best way to throw out drugs. There may be drug take-back programs in your area. General drug facts If your symptoms or health problems do not get better or if they become worse, call your doctor. Do not share your drugs with others and do not take anyone else's drugs. Some drugs may have another patient information leaflet. If you have any questions about this drug, please talk with your doctor, nurse, pharmacist, or other health care provider. If you think there has been an overdose, call your poison control center or get medical care right away. Be ready to tell or show what was taken, how much, and when it happened. Use of UpToDate is subject to the Subscription and License Agreement. Topic 82414 Version 65.0 Empagliflozin: Patient drug information Access [employer] Online for additional drug information, tools, and databases. Copyright 5432-6569 [employer]. All rights reserved. (For additional information see Empagliflozin: Drug information ) You must carefully read the Consumer Information Use and Disclaimer below in order to understand and correctly use this information. Brand Names: [place] Jardiance Brand Names: Kartik Jardiance What is this drug used for? It is used to lower blood sugar in patients with high blood sugar (diabetes). It is used to lower the chance of from heart disease in certain people. What do I need to tell my doctor BEFORE I take this drug? If you are allergic to this drug; any part of this drug; or any other drugs, foods, or substances. Tell your doctor about the allergy and what signs you had. If you have any of these health problems: Acidic blood problem or type 1 diabetes. If you have kidney disease. If you are dehydrated, talk with your doctor. If you are or may be . Do not take this drug if you are in the second or third trimester of . If you are breast-feeding. Do not breast-feed while you take this drug. This is not a list of all drugs or health problems that interact with this drug. Tell your doctor and pharmacist about all of your drugs (prescription or OTC, natural products, vitamins) and health problems. You must check to make sure that it is safe for you to take this drug with all of your drugs and health problems. Do not start, stop, or change the dose of any drug without checking with your doctor. What are some things I need to know or do while I take this drug? Tell all of your health care providers that you take this drug. This includes your doctors, nurses, pharmacists, and dentists. This drug may need to be stopped before certain types of surgery as your doctor has told you. If this drug is stopped, your doctor will tell you when to start taking this drug again after your surgery or procedure. Do not drive if your blood sugar has been low. There is a greater chance of you having a crash. To lower the chance of feeling dizzy or passing out, rise slowly if you have been sitting or lying down. Be careful going up and down stairs. Be careful in hot weather or while being active. Drink lots of fluids to stop fluid loss. If you are not able to eat or drink like normal, talk with your doctor. This includes if you are sick, fasting, or you are having certain procedures or surgery. If you cannot drink liquids by mouth or if you have upset stomach, throwing up, or diarrhea that does not go away; you need to avoid getting dehydrated. Contact your doctor to find out what to do. Dehydration may lead to new or worse kidney problems. High cholesterol has happened with this drug. If you have questions, talk with the doctor. Have blood work checked as you have been told by the doctor. Talk with the doctor. This drug may affect certain lab tests. Tell all of your health care providers and lab workers that you take this drug. It may be harder to control blood sugar during times of stress such as fever, infection, injury, or surgery. A change in physical activity, exercise, or diet may also affect blood sugar. Check your blood sugar as you have been told by your doctor. Talk with your doctor about which glucose tests are best to use. Too much acid in the blood or urine (ketoacidosis) and severe urinary tract infections (UTIs) have happened. Ketoacidosis can be deadly. Both of these may need to be treated in a hospital. Kidney problems have happened. Sometimes, these may need to be treated in the hospital or with dialysis. Follow the diet and workout plan that your doctor told you about. If you are on a low-salt or salt-free diet, talk with your doctor. Talk with your doctor before you drink alcohol. A rare but very bad infection has happened with drugs like this one. This infection may be deadly. Get medical help right away if your genitals or the area between your genitals and rectum becomes tender, red, or swollen, and you have a fever or do not feel well. If you are 65 or older, use this drug with care. You could have more side effects. This drug may cause harm to the unborn baby if you take it while you are . If you are or you get while taking this drug, call your doctor right away. What are some side effects that I need to call my doctor about right away? WARNING/CAUTION: Even though it may be rare, some people may have very bad and sometimes deadly side effects when taking a drug. Tell your doctor or get medical help right away if you have any of the following signs or symptoms that may be related to a very bad side effect: Signs of an allergic reaction, like rash; hives; itching; red, swollen, blistered, or peeling skin with or without fever; wheezing; tightness in the chest or throat; trouble breathing, swallowing, or talking; unusual hoarseness; or swelling of the mouth, face, lips, tongue, or throat. Signs of fluid and electrolyte problems like mood changes, confusion, muscle pain or weakness, a heartbeat that does not feel normal, very bad dizziness or passing out, fast heartbeat, more thirst, seizures, feeling very tired or weak, not hungry, unable to pass urine or change in the amount of urine produced, dry mouth, dry eyes, or very bad upset stomach or throwing up. Signs of kidney problems like unable to pass urine, change in how much urine is passed, blood in the urine, or a big weight gain. Signs of too much acid in the blood (acidosis) like confusion; fast breathing; fast heartbeat; a heartbeat that does not feel normal; very bad stomach pain, upset stomach, or throwing up; feeling very sleepy; shortness of breath; or feeling very tired or weak. Signs of a urinary tract infection (UTI) like blood in the urine, burning or pain when passing urine, feeling the need to pass urine often or right away, fever, lower stomach pain, or pelvic pain. Vaginal yeast infection. Report itching or discharge. Yeast infection of the penis. Report pain, swelling, rash, or discharge. Low blood sugar can happen. The chance may be raised when this drug is used with other drugs for diabetes. Signs may be dizziness, headache, feeling sleepy or weak, shaking, fast heartbeat, confusion, hunger, or sweating. Call your doctor right away if you have any of these signs. Follow what you have been told to do for low blood sugar. This may include taking glucose tablets, liquid glucose, or some fruit juices. What are some other side effects of this drug? All drugs may cause side effects. However, many people have no side effects or only have minor side effects. Call your doctor or get medical help if you have any side effects that bother you or do not go away. These are not all of the side effects that may occur. If you have questions about side effects, call your doctor. Call your doctor for medical advice about side effects. You may report side effects to your national health agency. How is this drug best taken? Use this drug as ordered by your doctor. Read all information given to you. Follow all instructions closely. Take with or without food. Take in the morning. Drink lots of noncaffeine liquids unless told to drink less liquid by your doctor. Keep taking this drug as you have been told by your doctor or other health care provider, even if you feel well. What do I do if I miss a dose? Take a missed dose as soon as you think about it. If it is close to the time for your next dose, skip the missed dose and go back to your normal time. Do not take 2 doses at the same time or extra doses. If you are not sure what to do if you miss a dose, call your doctor. How do I store and/or throw out this drug? Store at room temperature in a dry place. Do not store in a bathroom. Keep all drugs in a safe place. Keep all drugs out of the reach of children and pets. Throw away unused or drugs. Do not flush down a toilet or pour down a drain unless you are told to do so. Check with your pharmacist if you have questions about the best way to throw out drugs. There may be drug take-back programs in your area. General drug facts If your symptoms or health problems do not get better or if they become worse, call your doctor. Do not share your drugs with others and do not take anyone else's drugs. Some drugs may have another patient information leaflet. If you have any questions about this drug, please talk with your doctor, nurse, pharmacist, or other health care provider. If you think there has been an overdose, call your poison control center or get medical care right away. Be ready to tell or show what was taken, how much, and when it happened. Last Reviewed [id number] Consumer Information Use and Disclaimer This information should not be used to decide whether or not to take this medicine or any other medicine. Only the healthcare provider has the knowledge and training to decide which medicines are right for a specific patient. This information does not endorse any medicine as safe, effective, or approved for treating any patient or health condition. This is only a brief summary of general information about this medicine. It does NOT include all information about the possible uses, directions, warnings, precautions, interactions, adverse effects, or risks that may apply to this medicine. This information is not specific medical advice and does not replace information you receive from the healthcare provider. You must talk with the healthcare provider for complete information about the risks and benefits of using this medicine. The use of this information is governed by the [employer] End User License Agreement, available at https://www.Contratan.do.Wipit/en/ solutions/Meez/about/tea. 2020 [employer]. and its affiliates and/or licensors. All rights reserved. Use of [employer] is subject to the Subscription and License Agreement. Topic 91366 Version 70.0 Check blood sugars fasting a.m. and 2h after evening meal x 4 days/ week and report results to office by phone or MyChart. documented in this encounter [facility] 09-29-2021 History of Present illness Narrative 66 year old female with c/o here for follow up 2 weeks ago today fell and injured left foot. Was bruised quite a bit but feels a abrahan horse feeling in lateral knee to posterior calf. Diastolic dysfunction, left ventricle Acute on chronic diastolic congestive heart failure (hcc) Bradycardia Reinaldo (obstructive sleep apnea) Mixed hyperlipidemia Cardiovascular interval hx: 09/22/2021 EKG: NSR, 1st degree AV block VR 63 06/04/2020 echo: EF 70%, small pericardial effusion 06/01/2020-06/03/2020 hospitalized acute SOB, 10lb weight gain dx acute on chronic CHF, FRANSISCA, RBBB 06/04/[address] Ocampo: LV size and thickness WNL, EF 65%, normal diastole, no regional wall motion defects. RV mildly dilated right ventricle, normal systolic function. Atria bilaterally normal. No significant valvular disease, no aortic valvular vegetation. No change from 04/18/2013. 10/24/2017 stress echo ejection fraction 60%, negative for ischemia, no anginal symptoms, rare PACs and PVCs during dobutamine, normal response to blood pressure, final LVEF 75% Current meds: Propranolol 20 mg 1/2 tablet twice daily for anxiety Furosemide 20 mg twice daily up to 40 mg twice daily based on sx Pravachol 20 mg daily at bedtime Use of NTG: No Chest pain, arm, jaw pain, neck, or upper back pain suggestive of angina: No. SOB: No Dyspnea with exertion: No orthopnea: No racing or irregular heartbeats: No palpitations: No syncopal sx: No much Unexplainable fatigue Yes Leg swelling: No Nausea: No diaphoresis: No Heartburn: No Claudication: No Smoking: No Following Low cholesterol, high fiber diet? Yes If on statin: muscle aches? No If on statin: GI sx or diarrhea? No Additional history none. Component Latest Ref Rng & Units 05/28/2019 04/14/2020 Cholesterol, Total <200 mg/dL 191 135 Triglyceride <150 mg/dL 348 (H) 141 HDL Cholesterol >39 mg/dL 49 43 LDL Cholesterol <100 mg/dL 72 64 Non HDL Cholesterol <130 mg/dL 142 (H) 92 Fasting Time hrs 1 Unknown VLDL Cholesterol <30 mg/dL 70 (H) 28 TC:HDL Ratio <5.10 3.90 3.14 LDL:HDL Ratio <2.54 1.47 1.49 Component Latest Ref Rng & Units 06/30/2020 08/02/2020 WBC 3.70 - 11.00 k/uL 10.40 10.89 RBC 3.90 - 5.20 m/uL 4.83 4.85 Hemoglobin 11.5 - 15.5 g/dL 11.7 12.2 Hematocrit 36.0 - 46.0 % 41.1 41.7 MCV 80.0 - 100.0 fL 85.1 86.0 MCH 26.0 - 34.0 pG 24.2 (L) 25.2 (L) MCHC 30.5 - 36.0 g/dL 28.5 (L) 29.3 (L) RDW-CV 11.5 - 15.0 % 17.3 (H) 19.4 (H) Platelet Count 150 - 400 k/uL 462 (H) 341 MPV 9.0 - 12.7 fL 10.9 11.3 Absolute nRBC <0.01 k/uL <0.01 <0.01 Chronic renal insufficiency, stage 3 (moderate) (hcc) Component Latest Ref Rng & Units 12/11/2019 05/27/2020 Protein, Total 6.3 - 8.0 g/dL 6.6 6.0 (L) Albumin 3.9 - 4.9 g/dL 4.2 3.3 (L) Calcium 8.5 - 10.2 mg/dL 9.0 9.1 Bilirubin, Total 0.2 - 1.3 mg/dL <0.2 (L) 0.2 Alkaline Phosphatase 34 - 123 U/L 82 139 (H) AST 13 - 35 U/L 12 (L) 15 Glucose 74 - 99 mg/dL 73 (L) 136 (H) BUN 7 - 21 mg/dL 17 40 (H) Creatinine 0.58 - 0.96 mg/dL 1.45 (H) 1.86 (H) Sodium 136 - 144 mmol/L 143 132 (L) Potassium 3.7 - 5.1 mmol/L 4.2 4.5 Chloride 97 - 105 mmol/L 108 (H) 104 CO2 22 - 30 mmol/L 22 19 (L) Anion Gap 9 - 18 mmol/L 13 9 ALT 7 - 38 U/L 13 12 eGFR- 44 33 eGFR-All Other Races . 36 27 Type 2 diabetes mellitus with diabetic neuropathy, with long-term current use of insulin (hcc) Diabetes Mellitus Type 2: Current medications: Stopped insulin due to weight gain Resumed metformin but issues with renal- has noted a little weight loss Taking medication as directed consistently? As above Medical Issues / Complications: hypertension, hyperlipidemia and cardiovascular disease Checking blood sugars at home? Yes. Meter currently needs new battery: got one today Watching diet? Yes Physical Activity: Sedentary Hypoglycemic spells? No Any visual disturbance? No Chest pain? No New numbness, tingling or loss of sensation? No Any recent foot problems, sores or rashes? No Any recent or sudden weight loss? No Rashes? Yes. Under breasts and abdominal folds. Cream doesn't work: using rubbing alcohol. Change in urination? No. If yes: Any recent illness? No Last eye exam: due. Last foot exam: Up to date. HBA1C: Hemoglobin A1C Date Value 08/15/2021 6.4 % 02/07/2021 5.5 % 10/31/2020 5.5 04/14/2020 5.8 % ) CMP: Glucose 85 02/22/2021 BUN 26 02/22/2021 Creatinine 1.37 05/03/2021 Sodium 140 02/22/2021 Potassium 4.4 02/22/2021 Chloride 107 02/22/2021 CO2 20 02/22/2021 Protein, Total 7.0 02/07/2021 Albumin 4.4 05/03/2021 Calcium 9.5 02/22/2021 Alkaline Phosphatase 110 02/07/2021 Bilirubin, Total 0.2 02/07/2021 AST 22 05/03/2021 ALT 20 05/03/2021 Last 2 Encounter Wt Readings: Date: Wt: 08/17/2021 101.6 kg (224 lb) 08/15/2021 103.9 kg (229 lb) Lupus (hcc) Fibromyalgia Follows with rheumatology [place] CNP, Dr. Kalee Salazar Current medications: Hydroxychloroquine 200 mg once daily Panic disorder with agoraphobia Major depressive disorder, recurrent severe without psychotic features (hcc) Chronic post-traumatic stress disorder (ptsd) Interval history: Following with Cary oLredo CNP psychiatry Current medications: Propranolol 20 mg twice daily for anxiety/tremors which is helping Lamictal 100 mg daily Fluoxetine discontinued Esophagitis Current medication: Omeprazole 40 mg daily AC. Current symptoms: none. Last Mg level if on PPI chronically: none recent. Heartburn is controlled: none. Dysphagia: No. Bloody or black stools: No. Bowel changes: Diarrhea every now and then. . RLS Iron deficiency anemia Following with hematology Nhung Wallis CNP Current medications: Gabapentin 300 mg 3 times daily 09/12/2021 most recent iron infusion Component Latest Ref Rng & Units 05/15/2021 08/15/2021 WBC 3.70 - 11.00 k/uL 11.79 (H) 9.20 RBC 3.90 - 5.20 m/uL 4.24 3.75 (L) Hemoglobin 11.5 - 15.5 g/dL 11.1 (L) 9.8 (L) Hematocrit 36.0 - 46.0 % 37.7 32.5 (L) MCV 80.0 - 100.0 fL 88.9 86.7 MCH 26.0 - 34.0 pg 26.2 26.1 MCHC 30.5 - 36.0 g/dL 29.4 (L) 30.2 (L) RDW-CV 11.5 - 15.0 % 15.2 (H) 16.6 (H) Platelet Count 150 - 400 k/uL 317 243 MPV 9.0 - 12.7 fL 9.8 9.9 Neut% % 75.7 76.2 Abs Neut (ANC) 1.45 - 7.50 k/uL 8.93 (H) 7.01 Lymph% % 13.1 11.4 Abs Lymph 1.00 - 4.00 k/uL 1.54 1.05 [place]% % 6.1 4.9 Abs [place] <0.87 k/uL 0.72 0.45 [place]% % 4.6 6.0 Abs Eosin <0.46 k/uL 0.54 (H) 0.55 (H) Baso% % 0.5 0.4 Abs Baso <0.11 k/uL 0.06 0.04 Immature Gran % % 1.1 IMMATURE GRANS (ABS) <0.10 k/uL 0.10 (H) NRBC /100 WBC 0.0 Absolute nRBC <0.01 k/uL <0.01 <0.01 DTYPE Auto Nucleated Reds 0 /100 WBC 0.0 Diff Type Auto Diff Iron 41 - 186 ug/dL 38 (L) TIBC 232 - 386 ug/dL 320 Transferrin Saturation 15 - 57 % 12 (L) Ferritin 14.7 - 205.1 ng/mL 98.9 HISTORIES FAMILY HISTORY Problem Relation Age of Onset Hypertension Mother Hyperlipidemia Mother Cancer Father metastatic Diabetes Maternal Grandmother Heart Failure Maternal Grandfather Thyroid No Family History Factor 5 Leiden No Family History Stroke No Family History Blood Clots No Family History Auto-Immune Disorder No Family History Systemic Lupus Erythematosus No Family History Multiple Sclerosis No Family History Coronary Artery Disease No Family History Bipolar disorder No Family History Schizophrenia No Family History PAST MEDICAL HISTORY Diagnosis Date Aspiration pneumonia (HCC) 04/2019 [facility] DDD (degenerative disc disease) Depression Diabetes mellitus without mention of complication Fibromyalgia Hyperlipidemia Iron deficiency anemia, unspecified Dr Duong Lupus (HCC) Obesity Vitamin D deficiency 2012 PAST SURGICAL HISTORY Procedure Laterality Date ARTHRP KNE CONDYLE&PLATU MEDIAL&LAT COMPARTMENTS Left 02/25/2017 Dr. Eric Jones CARDIAC CATH 2007 no stenosis minimal plaque CARPAL TUNNEL bilateral CHOLECYSTECTOMY 1997 Cholecystectomy COLONOSCOPY & POLYPECTOMY 07/27/13 TA x 2, hyperplastic x 5. Repeat in 3y. COLONOSCOPY FLX DX W/COLLJ SPEC WHEN PFRMD 08/15/07 Repeat in COLONOSCOPY FLX DX W/COLLJ SPEC WHEN PFRMD 07/11/2016 Colonoscopy COLONOSCOPY FLX DX W/COLLJ SPEC WHEN PFRMD 12/24/2019 Colonoscopy EGD TRANSORAL BIOPSY SINGLE/MULTIPLE 08/15/07 ESOPHAGOGASTRODUODENOSCOPY TRANSORAL DIAGNOSTIC 02/01/2010 EGD ESOPHAGOGASTRODUODENOSCOPY TRANSORAL DIAGNOSTIC 07/27/13 gastritis ESOPHAGOGASTRODUODENOSCOPY TRANSORAL DIAGNOSTIC 07/11/2016 EGD ESOPHAGOGASTRODUODENOSCOPY TRANSORAL DIAGNOSTIC 12/24/2019 EGD LIG/TRNSXJ FLP TUBE ABDL/VAG APPR UNI/BI 1982 Tubal ligation LUMBAR DISCOGRAM OPEN REPAIR OF ROTATOR CUFF ACUTE 12/31/08 Rotator cuff repair, right PAST SURGICAL HISTORY OF 2001 RIGHT ANKLE ORIF PAST SURGICAL HISTORY OF low back injections PAST SURGICAL HISTORY OF 04/30/2011 Anterior lumbar interbody fusion L4-5 L5-S1 PAST SURGICAL HISTORY OF 05/30/11 Posterior lumbar fusion S SPINAL CORD STIM/IMPLANTN 01/2014 Social History Tobacco Use Smoking status: Former Smoker Packs/day: 1.00 Years: 0.50 Pack years: 0.50 Types: Cigarettes Quit date: 04/05/1985 Years since quittin.5 Smokeless tobacco: Never Used Tobacco comment: Smoked for 6 months total. Vaping Use Vaping Use: Never used Substance Use Topics Alcohol use: No Drug use: No ACTIVE PROBLEM LIST Mixed Hyperlipidemia Iron Deficiency Anemia Chronic Depression Thoracic Or Lumbosacral Neuritis Or Radiculitis, Unspecified Anxiety Esophagitis Enthesopathy of Ankle and Tarsus, Unspecified Lupus (HCC) Fibromyalgia Ddd (Degenerative Disc Disease), Lumbar Obesity Vitamin D Deficiency Other Pain Disorders Related to Psychological Factors Malabsorption of Iron Type 2 Diabetes Mellitus With Diabetic Neuropathy, With Long-Term Current Use of Insulin ([facility]) Primary Osteoarthritis of Left Knee Abnormal Ekg Absolute Anemia Diastolic Dysfunction, Left Ventricle Chronic Renal Insufficiency, Stage 3 (Moderate) ([facility]) Major Depressive Disorder, Recurrent Severe Without Psychotic Features ([facility]) Panic Disorder With Agoraphobia Chronic Post-Traumatic Stress Disorder (Ptsd) Current Outpatient Medications Medication Sig Dispense Refill propranolol (INDERAL) 20 mg tablet Take 0.5 tablets by mouth twice daily. 60 tablet 1 sucralfate (CARAFATE) 1 gram tablet Take 1 tablet by mouth three times daily before meals. 42 tablet 2 lamoTRIgine (LAMICTAL) 100 mg tablet Take 1 tablet by mouth twice daily. 60 tablet 1 cholecalciferol, Vitamin D3, (VITAMIN D3) 1,250 mcg (50,000 unit) cap capsule Take 1 capsule by mouth once a week 4 capsule 0 furosemide (LASIX) 20 mg tablet Take 1 tablet by mouth twice daily. Patient may adjust from baseline 40 mg daily up to 40 mg twice daily based on weight gain greater than 3 pounds plus either increased shortness of breath or increased swelling. 90 tablet 1 metFORMIN ER (GLUCOPHAGE XR) 500 mg 24 hr tablet Take 1 tablet by mouth twice daily with meals. Currently on hold but may restart if needed 180 tablet 3 pravastatin (PRAVACHOL) 20 mg tablet Take 1 tablet by mouth daily at bedtime. 90 tablet 3 hydrOXYchloroQUINE (PLAQUENIL) 200 mg tablet Take 1 tablet by mouth once daily. 90 tablet 0 insulin glargine (LANTUS SOLOSTAR U-100 INSULIN) 100 unit/mL (3 mL) Inject 60 Units subcutaneously daily at bedtime. 5 Pen 11 omeprazole (PRILOSEC) 40 mg capsule Take 1 capsule by mouth once daily. 90 capsule 1 acetaminophen (TYLENOL EXTRA STRENGTH) 500 mg tablet Take 1,000 mg by mouth every 8 hours as needed. ibuprofen (ADVIL) 200 mg tablet Take 600 mg by mouth twice daily as needed. acetaminophen 325 mg-caffeine 40 mg-butalbital 50 mg (FIORICET) per capsule Take 1 capsule by mouth every 6 hours as needed. 12 capsule 0 fluticasone (FLONASE) 50 mcg/actuation nasal spray Use 2 Sprays in each nostril once daily. Rinse mouth after use. 1 Bottle 11 Insulin [place], Disposable, (PEN NEEDLES) 31 gauge x 1/4 ndle Once a day for insulin usage. 100 Each 3 blood sugar diagnostic (BLOOD GLUCOSE TEST) test strip Test blood sugar(s) 3 times daily. Dx: Type 2 DM - Uncontrolled E11.65 Insulin: Yes 100 Strip 11 blood sugar diagnostic (FREESTYLE LITE STRIPS) test strip Test blood sugar(s) 3 times daily. Dx: 250.02. Insulin: Yes 100 Strip 3 gabapentin (NEURONTIN) 300 mg capsule Take 1 capsule by mouth three times daily. 0 No current facility-administered medications for this visit. HIV SCREENING Never done PNEUMOCOCCAL: 66+(2 - PCV) due on 07/20/2008 MAMMOGRAM due on 06/12/2018 BONE DENSITY Never done COVID-19 VACCINE(3 - Moderna risk series) due on 02/08/2021 ADVANCE DIRECTIVE DISCUSSION Never done LDL CHOLESTEROL due on 04/14/2021 URINE ALBUMIN:CREATININE RATIO due on 06/30/2021 DILATED RETINAL EXAM due on 09/16/2021 DTAP,TDAP,TD(2 - Td or Tdap) due on 09/23/2021 EXAM: BP 116/60 Pulse (!) 56 Resp 16 Wt 99.3 kg (219 lb) LMP 12/07/2007 SpO2 98% BMI 35.35 kg/m Pleasant adult woman using a walker in the office in no acute distress. Alert and oriented all spheres. Normal affect and cognition. Speech normal. No deficits to learning or comprehension. Skin warm, dry, pink to lips and nailbeds. Normal turgor. Has red moist rash under breasts and abdominal folds. Respirations regular and unlabored. HEENT: NCAT. No scleral icterus or conjunctival injection. TM's clear. Nose and oropharynx free from injection or lesion. Oral membranes moist and pink. No cervical lymph nodes. Thyroid non-tender, no masses, or enlargement. Carotids pulses 2+/4+ without bruits. No JVD with HOB at 30 degrees. Chest is normal shape. Lungs are clear to all angel with good air exchange through out. HRRR without murmur or gallop. No lifts, heaves, or rubs. VR 52 Extrem: no clubbing or cyanosis. Edema: none. Extremities are warm and pink with prompt capillary refill. ASSESSMENT/PLAN: 1. Diastolic dysfunction, left ventricle - ICD9: 429.9, ICD10: I51.9 2. Acute on chronic diastolic congestive heart failure (HCC) - ICD9: 428.33, 428.0, ICD10: I50.33 Currently stable. Reviewed use of furosemide: patient is to increase ONLY per parameters and return to 20mg twice a day once weight and swelling or OSB improves. 3. Bradycardia - ICD9: 427.89, ICD10: R00.1 From beta-blockade, better on lower dose. I don't think she needs repeat EKG. 4. REINALDO (obstructive sleep apnea) - ICD9: 327.23, ICD10: G47.33 Stable use 5. Mixed hyperlipidemia - ICD9: 272.2, ICD10: E78.2 - good control - Encouraged following a low fat, low cholesterol diet. - Discussed the benefits of regular aerobic exercise and weight loss. 6. Chronic renal insufficiency, stage 3 (moderate) (HCC) - ICD9: 585.3, ICD10: N18.30 needs recheck 7. Type 2 diabetes mellitus with diabetic neuropathy, with long-term current use of insulin (HCC) - ICD9: 250.60, 357.2, V58.67, ICD10: E11.40, Z79.4 Over controlled: discussed rec to avoid tight glycemic control this age group due to renal issues. . Goal a1c < 8% Stop metformin due to renal Start dulaglutide 0.75% SC weekly Start Empaglifozin if lab shows creatinine clearance estimated > 45 Check blood sugars fasting a.m. and 2h after largest meal x 3 days and report results to office by phone or MyChart. 20 minutes dedicated education and counseling on diabetes, hyperglycemia, medication changes only after discussion with provider, new meds 8. Lupus (HCC) - ICD9: 710.0, ICD10: M32.9 9. Fibromyalgia - ICD9: 729.1, ICD10: M79.7 Follows with rheum 10. Panic disorder with agoraphobia - ICD9: 300.21, ICD10: F40.01 11. Major depressive disorder, recurrent severe without psychotic features (HCC) - ICD9: 296.33, ICD10: F33.2 12. Chronic post-traumatic stress disorder (PTSD) - ICD9: 309.81, ICD10: F43.12 Stable, following with psych 13. Esophagitis - ICD9: 530.10, ICD10: K20.90 Controlled on medicaiton 14. Current use of proton pump inhibitor - ICD9: V58.69, ICD10: Z79.899 - MAGNESIUM BLD Ailyn Carson PA-C documented in this encounter [facility] 09-22-2021 Instructions Leelee Farrar APRN.CNP - 09/22/2021 3:23 PM EDT 1. Decrease the propranolol to 1/2 tab twice daily. 2. Get a new battery for your glucometer. 3. Recheck in 1 week. documented in this encounter [facility] 09-22-2021 History of Present illness Narrative This is a 66 year old female who presents today with: No chief complaint on file. HISTORY OF PRESENT ILLNESS: Nikki Carr is a 66 year old female. No chief complaint on file. Refers that she was in the ER on 09/15/21. Refers that she had a fall. Twisted her left foot and knee. She had x-rays completed of the left knee, left tibia and fibula, and left foot. Although his x-ray showed no acute fractures or dislocations. Knee hardware was stable. She was advised to rest, ice, and elevate the lower extremity. She was advised to take Tylenol or ibuprofen as needed for pain. She still does have some soreness and bruising, but it is improving. She also reports that she has not been feeling well. I feel like I'm in [place] land. Like I'm in slow motion. She admits that she was restarted on metformin approximately a month ago. However she self stopped her Lantus 1 to 2 weeks ago. She is unsure what her sugars are running because her glucometer needs a new battery. She does not feel that her sugars are running high. Glucose done today was 125 here in the office. She was noted to be bradycardic today in the office. Chart review shows that she recently started propranolol for her anxiety. PAST MEDICAL HISTORY: PAST MEDICAL HISTORY Diagnosis Date Aspiration pneumonia (HCC) 04/2019 [facility] DDD (degenerative disc disease) Depression Diabetes mellitus without mention of complication Fibromyalgia Hyperlipidemia Iron deficiency anemia, unspecified Dr Duong Lupus (HCC) Obesity Vitamin D deficiency 2012 PAST SURGICAL HISTORY Procedure Laterality Date ARTHRP KNE CONDYLE&PLATU MEDIAL&LAT COMPARTMENTS Left 02/25/2017 Dr. Eric Jones CARDIAC CATH 2007 no stenosis minimal plaque CARPAL TUNNEL bilateral CHOLECYSTECTOMY 1998 Cholecystectomy COLONOSCOPY & POLYPECTOMY 07/27/13 TA x 2, hyperplastic x 5. Repeat in 3y. COLONOSCOPY FLX DX W/COLLJ SPEC WHEN PFRMD 08/15/07 Repeat in COLONOSCOPY FLX DX W/COLLJ SPEC WHEN PFRMD 07/11/2016 Colonoscopy COLONOSCOPY FLX DX W/COLLJ SPEC WHEN PFRMD 12/24/2019 Colonoscopy EGD TRANSORAL BIOPSY SINGLE/MULTIPLE 08/15/07 ESOPHAGOGASTRODUODENOSCOPY TRANSORAL DIAGNOSTIC 02/01/2010 EGD ESOPHAGOGASTRODUODENOSCOPY TRANSORAL DIAGNOSTIC 07/27/13 gastritis ESOPHAGOGASTRODUODENOSCOPY TRANSORAL DIAGNOSTIC 07/11/2016 EGD ESOPHAGOGASTRODUODENOSCOPY TRANSORAL DIAGNOSTIC 12/24/2019 EGD LIG/TRNSXJ FLP TUBE ABDL/VAG APPR UNI/BI 1982 Tubal ligation LUMBAR DISCOGRAM OPEN REPAIR OF ROTATOR CUFF ACUTE 12/31/08 Rotator cuff repair, right PAST SURGICAL HISTORY OF 2001 RIGHT ANKLE ORIF PAST SURGICAL HISTORY OF low back injections PAST SURGICAL HISTORY OF 04/30/2011 Anterior lumbar interbody fusion L4-5 L5-S1 PAST SURGICAL HISTORY OF 05/30/11 Posterior lumbar fusion S SPINAL CORD STIM/IMPLANTN 01/2014 ALLERGIES Patient has no known allergies. MEDICATIONS Current Outpatient Medications Medication Sig sucralfate (CARAFATE) 1 gram tablet Take 1 tablet by mouth three times daily before meals. lamoTRIgine (LAMICTAL) 100 mg tablet Take 1 tablet by mouth twice daily. propranolol (INDERAL) 20 mg tablet Take 1 tablet by mouth twice daily. cholecalciferol, Vitamin D3, (VITAMIN D3) 1,250 mcg (50,000 unit) cap capsule Take 1 capsule by mouth once a week furosemide (LASIX) 20 mg tablet Take 1 tablet by mouth twice daily. Patient may adjust from baseline 40 mg daily up to 40 mg twice daily based on weight gain greater than 3 pounds plus either increased shortness of breath or increased swelling. metFORMIN ER (GLUCOPHAGE XR) 500 mg 24 hr tablet Take 1 tablet by mouth twice daily with meals. Currently on hold but may restart if needed pravastatin (PRAVACHOL) 20 mg tablet Take 1 tablet by mouth daily at bedtime. hydrOXYchloroQUINE (PLAQUENIL) 200 mg tablet Take 1 tablet by mouth once daily. insulin glargine (LANTUS SOLOSTAR U-100 INSULIN) 100 unit/mL (3 mL) Inject 60 Units subcutaneously daily at bedtime. omeprazole (PRILOSEC) 40 mg capsule Take 1 capsule by mouth once daily. acetaminophen (TYLENOL EXTRA STRENGTH) 500 mg tablet Take 1,000 mg by mouth every 8 hours as needed. ibuprofen (ADVIL) 200 mg tablet Take 600 mg by mouth twice daily as needed. acetaminophen 325 mg-caffeine 40 mg-butalbital 50 mg (FIORICET) per capsule Take 1 capsule by mouth every 6 hours as needed. fluticasone (FLONASE) 50 mcg/actuation nasal spray Use 2 Sprays in each nostril once daily. Rinse mouth after use. Insulin [place], Disposable, (PEN NEEDLES) 31 gauge x 1/4 ndle Once a day for insulin usage. blood sugar diagnostic (BLOOD GLUCOSE TEST) test strip Test blood sugar(s) 3 times daily. Dx: Type 2 DM - Uncontrolled E11.65 Insulin: Yes blood sugar diagnostic (FREESTYLE LITE STRIPS) test strip Test blood sugar(s) 3 times daily. Dx: 250.02. Insulin: Yes gabapentin (NEURONTIN) 300 mg capsule Take 1 capsule by mouth three times daily. No current facility-administered medications for this visit. FAMILY HISTORY Problem Relation Age of Onset Hypertension Mother Hyperlipidemia Mother Cancer Father metastatic Diabetes Maternal Grandmother Heart Failure Maternal Grandfather Thyroid No Family History Factor 5 Leiden No Family History Stroke No Family History Blood Clots No Family History Auto-Immune Disorder No Family History Systemic Lupus Erythematosus No Family History Multiple Sclerosis No Family History Coronary Artery Disease No Family History Bipolar disorder No Family History Schizophrenia No Family History Social History Tobacco Use Smoking status: Former Smoker Packs/day: 1.00 Years: 0.50 Pack years: 0.50 Types: Cigarettes Quit date: 04/05/1985 Years since quittin.4 Smokeless tobacco: Never Used Tobacco comment: Smoked for 6 months total. Vaping Use Vaping Use: Never used Substance Use Topics Alcohol use: No Drug use: No EXAM: BP 110/64 Pulse (!) 53 Resp 18 LMP 12/07/2007 SpO2 99% PHYSICAL EXAM: General Appearance: Well appearing, alert, in no acute distress, well-hydrated, well nourished.. Skin: Skin color, texture, turgor normal, no suspicious rashes or lesions. Head: Normocephalic, no masses, lesions, tenderness or abnormalities. Eyes: Anicteric sclera. Extraocular movements are intact. . Lungs: Lungs clear to auscultation. No wheezing, rhonchi, rales.. Heart: RRR without murmur, gallop, or rubs. No ectopy. Extremities: No deformities, edema, clubbing or cyanosis. Good capillary refill. Multi-colored bruising noted of the left foot and the right inner knee. She has some scabbed areas noted on the left anterior heller and left lateral knee. ASSESSMENT/PLAN: 1. Fall, subsequent encounter - ICD9: V58.89, E888.9, ICD10: W19.XXXD (primary diagnosis) Leg improving. Negative xrays at the ER. Continue to monitor. 2. Type 2 diabetes mellitus with diabetic neuropathy, with long-term current use of insulin (HCC) - ICD9: 250.60, 357.2, V58.67, ICD10: E11.40, Z79.4 Encouraged to check home blood sugars. She stopped her lantus. Glucose today was 125. - GLUCOSE, BLOOD (POC) 3. Bradycardia - ICD9: 427.89, ICD10: R00.1 Found to be bradycardic today. Question if this is why she is feeling sluggish. Will decrease back to 10 mg twice daily. Will cc chart to psychiatry so they are aware. Patient to follow-up for recheck in 1 month. - ECG COMPLETE - SR with marked SA and 1st degree AV block. - PROPRANOLOL 20 MG TABLET Discussed treatment plan and patient voices understanding. Patient's questions answered appropriately. Medications and potential side effects were discussed and patient voices understanding. Return to the office as scheduled or as needed for worsening/no improvement. Leelee Farrar APRN.TODD documented in this encounter [facility] 09-01-2021 Instructions Cary Loredo APRN.TODD - 09/01/2021 11:48 AM EDT Regan Jordan, It was good to talk with you today. Below is a summary of the plan that we discussed during your appointment for reference. Of course, if you have any questions or concerns do not hesitate to reach out to me via a message or call. Best, Cary Loredo APRN.CNP PLAN AND FOLLOW UP: YOU SHOULD SEEK IMMEDIATE MEDICAL ATTENTION AT THE NEAREST EMERGENCY DEPARTMENT OR BY CALLING 911, IF ANY OF THE FOLLOWING OCCURS: - New or worsening thoughts of harming yourself (suicidal thoughts) or others (homicidal thoughts) - Not feeling safe at home or worrying about your ability to remain safe at home If you are having thoughts of harming yourself or others, then you can: - Call the National Suicide Hotline at 7-799-XSOKGNC ( ) or 9-176-057-TALK (3863) - Text [employer]HOPE to 274164 Medication Update: 1. Propranolol (Inderal) 20 mg - take 1 tablet twice daily. 2. Lamictal (Lamotrigine) 100 mg - take 1 tablet once daily. Next appointment: --Schedule in 4 to 5 weeks or sooner if needed -- You may call the department appointment line at [phone] to schedule your appointment. -- Please call my nurse Vero at [phone] or send me a message in [employer] with any questions or concerns between appointments. documented in this encounter [facility] 09-01-2021 History of Present illness Narrative Images from the original note were not included. PSYC FOLLOW UP - PSYCHIATRIC PROGRESS NOTE DIAGNOSIS: 1. MDD, moderate, recurrent 2. Panic disorder with agoraphobia 3. Tremors (worsened with anxiety but more likely benign in nature) 4. Chronic PTSD GAF: -60-51 Moderate symptoms or moderate difficulty in social, occupational or school functioning. TREATMENT PLAN: 1. Add Propranolol to help with the physical symptoms of anxiety and tremors. 2. Continue Lamictal at the same dose. 3. Discussed ways of managing her stress eating as patient is concerned about weight gain. 4. Daughter will be present for the appointments moving forward as she assists patient with medications. 5. Follow up in 4 to 5 weeks. 6. Consider the functional movement disorders shared medical appointment if even after improvement in anxiety, patient continues to struggle with her tremors. Medication Update: 1. Propranolol (Inderal) 20 mg - take 1 tablet twice daily. 2. Lamictal (Lamotrigine) 100 mg - take 1 tablet once daily. The effects and side effects of all the medications were reviewed in detail with the patient and her daughter Cari. They are aware of the rash side effect associated with Lamictal. They will monitor patient's blood pressure every 3 days after she starts the propranolol. They are in agreement with the treatment plan and will reach out with any questions, concerns, or worsening of symptoms prior to the next appointment. CC: Follow up regarding mood and anxiety With the patient consent, visit was performed virtually. HPI: Nikki Carr is a 66 year old Female with a history of MDD, panic disorder, tremors, and PTSD presenting today for follow-up. Date of last visit: 07/12/2021 Plan from last visit: 1. Increase Lamictal to address her depressive symptoms. 2. Discontinue Prozac as patient already discontinued the medication due to miscommunication. 3. Obtain collateral information from patient's daughter. Asked the patient's daughter to be a part of the appointments due to patient's concerns with worsening memory and daughter helping the patient manage her medications. 4. Consider neuropsychological testing if depression improves but cognitive concerns are still present. 5. Follow-up with this provider in 4 weeks. Nikki was present for this appointment along with her daughter Cari. She reports that her mood is low. Shares that the tremors are less but are still present. Nikki shares that she is more stressed due to her younger son being in the police custody due to a serious felony charge. She feels that she has been engaged in a lot of comfort eating to deal with anxiety. Patient and daughter mostly described her anxiety manifestations to be somatic in nature. We discussed utilizing propranolol to manage the symptoms. Nikki denies episodes of dizziness. Her iron level is low and she is going to get two more infusions. Gabapentin has been helpful for her restless leg symptoms. Interval Progress: Slightly improved Risks and benefits of the medication, including any black box warnings, were discussed with the patient. Social History: No change PATIENT DATA: Generalized Anxiety Disorder Scale (TUSHAR-7) TUSHAR - 7 SCORES 05/18/2021 07/12/2021 08/30/2021 TUSHAR-7 Score 10 9 8 (0-4) minimal anxiety, (5-9) mild anxiety, (10-14) moderate anxiety, (15-21) severe anxiety Patient Health Questionnaire (PHQ-9) PHQ-9 05/18/2021 07/12/2021 08/30/2021 Score 19 17 20 (0-4) minimal depression, (5-9) mild depression, (10-14) moderate depression, (15-19) moderately severe depression, (20-27) severe depression ROS: General: Negative for fever, malaise, unintentional weight loss HEENT: Negative for recent changes in vision or hearing, no nasal drainage Respiratory: Negative for cough, wheezing or SOB Cardiovascular: Negative for chest pain GI: Negative for nausea, vomiting, change in bowel habits MUSCULOSKELETAL: Negative for acute back or joint pain SKIN: Negative for rash NEURO: Negative for headaches, seizures, focal neurological deficits All other systems negative. VITAL SIGNS: None obtained due to virtual visit. BP Temp Pulse Resp SpO2 MENTAL STATUS EXAMINATION: Appearance: Appropriately groomed, appears stated age Behavior: Appropriately engaged Psychomotor: No psychomotor agitation Cognition Level of Consciousness: Awake and alert. No fluctuation in wakefulness. Orientation: Grossly oriented Memory: Intact Attention/Concentration: Good Fund of Knowledge: Able to demonstrate an awareness of current events. Mood: Euthymic Affect: Full and appropriate to topic Speech/Language: Appropriate tone, prosody, yen, phonetics, and syntax Thought Form: Goal-directed. No loosening of associations. Thought Content: No delusions noted or endorsed. Perceptual Disturbances: Did not appear to respond to auditory stimuli. Safety: Suicidal Ideations: No suicidal ideation, intent or plan. Homicidal Ideations: No homicidal ideation, intent or plan. Insight: Appropriate Judgment: Appropriate I spent a total of 28 minutes on the date of the service which included preparing to see the patient, [id number] patient care, completing clinical documentation, and counseling and educating the patient/family/caregiver, ordering medications/labs. Cary Loredo APRN.[employer]ED [employer]IVER September 01, 2021 10:31 AM documented in this encounter [facility] 08-23-2021 Miscellaneous Notes Patient phones requesting refills as follows: Pending Prescriptions Disp Refills CHOLECALCIFEROL (VITAMIN D3) 1,250 MCG (50,000 UNIT) CAPSULE 4 capsule 0 Sig: Take 1 capsule by mouth once a week JON: Yes JITENDRA-08/17/21 labs-08/15/21 NOV-none med filled 07/24/21 Please review and advise. Yin Da Silva LPN documented in this encounter [facility] 08-17-2021 History of Present illness Narrative 66 year old female with c/o here for routine follow-up Diastolic dysfunction left ventricle 10/24/2017 stress echo ejection fraction 60%, negative for ischemia, no anginal symptoms, rare PACs and PVCs during dobutamine, normal response to blood pressure, final LVEF 75% 06/04/[address] Ocampo: LV size and thickness WNL, EF 65%, normal diastole, no regional wall motion defects. RV mildly dilated right ventricle, normal systolic function. Atria bilaterally normal. No significant valvular disease, no aortic valvular vegetation. No change from 04/18/2013. Type 2 diabetes mellitus with diabetic neuropathy, with long-term current use of insulin ([facility]) (primary encounter diagnosis) Current medications: Stopped metformin Insulin Lantus 60u SC Taking medication as directed consistently? Yes Medical Issues / Complications: hypertension, hyperlipidemia and peripheral neuropathy Checking blood sugars at home? Checks a little: running lowest 130-highest 160. Watching diet? Last 2 days on water diet. I need iron so chewing ice. Seeing Nhung Wallis who is to be setting up infusions. Physical Activity: Regular Hypoglycemic spells? No Any visual disturbance? No Chest pain? No New numbness, tingling or loss of sensation? none Any recent foot problems, sores or rashes? Yes seeing [facility] Any recent or sudden weight loss? Last 6 weeks gained from 1`20 to 131lbs- improved with water pills. SPB on laying down Change in urination? No. If yes: Any recent illness? No Last eye exam: [facility]. Last foot exam: due. HBA1C: Hemoglobin A1C Date Value 08/15/2021 6.4 % 02/07/2021 5.5 % 10/31/2020 5.5 04/14/2020 5.8 % ) CMP: Glucose 85 02/22/2021 BUN 26 02/22/2021 Creatinine 1.37 05/03/2021 Sodium 140 02/22/2021 Potassium 4.4 02/22/2021 Chloride 107 02/22/2021 CO2 20 02/22/2021 Protein, Total 7.0 02/07/2021 Albumin 4.4 05/03/2021 Calcium 9.5 02/22/2021 Alkaline Phosphatase 110 02/07/2021 Bilirubin, Total 0.2 02/07/2021 AST 22 05/03/2021 ALT 20 05/03/2021 Last 2 Encounter Wt Readings: Date: Wt: 08/17/2021 101.6 kg (224 lb) 08/15/2021 103.9 kg (229 lb) Mixed hyperlipidemia Current medication Pravastatin 20 mg at bedtime Taking medication consistently Yes Observing low cholesterol high fiber diet Yes Muscle aches No Stomach complaints/ diarrhea No Last 2 Lipids: Component Latest Ref Rng & Units 05/28/2019 12/11/2019 04/14/2020 05/27/2020 Protein, Total 6.3 - 8.0 g/dL 6.6 6.0 (L) Albumin 3.9 - 4.9 g/dL 4.2 3.3 (L) Calcium 8.5 - 10.2 mg/dL 9.0 9.1 Bilirubin, Total 0.2 - 1.3 mg/dL <0.2 (L) 0.2 Alkaline Phosphatase 34 - 123 U/L 82 139 (H) AST 13 - 35 U/L 12 (L) 15 Glucose 74 - 99 mg/dL 73 (L) 136 (H) BUN 7 - 21 mg/dL 17 40 (H) Creatinine 0.58 - 0.96 mg/dL 1.45 (H) 1.86 (H) Sodium 136 - 144 mmol/L 143 132 (L) Potassium 3.7 - 5.1 mmol/L 4.2 4.5 Chloride 97 - 105 mmol/L 108 (H) 104 CO2 22 - 30 mmol/L 22 19 (L) Anion Gap 9 - 18 mmol/L 13 9 ALT 7 - 38 U/L 13 12 eGFR- 44 33 eGFR-All Other Races . 36 27 Cholesterol, Total <200 mg/dL 191 135 Triglyceride <150 mg/dL 348 (H) 141 HDL Cholesterol >39 mg/dL 49 43 LDL Cholesterol <100 mg/dL 72 64 Non HDL Cholesterol <130 mg/dL 142 (H) 92 Fasting Time hrs 1 Unknown VLDL Cholesterol <30 mg/dL 70 (H) 28 TC:HDL Ratio <5.10 3.90 3.14 LDL:HDL Ratio <2.54 1.47 1.49 Renal insufficiency Component Latest Ref Rng & Units 08/02/2020 02/07/2021 02/22/2021 05/03/2021 08/15/2021 Protein, Total 6.3 - 8.0 g/dL 7.0 Albumin 3.9 - 4.9 g/dL 4.2 Calcium 8.5 - 10.2 mg/dL 10.0 9.5 Bilirubin, Total 0.2 - 1.3 mg/dL 0.2 Alkaline Phosphatase 34 - 123 U/L 110 AST 13 - 35 U/L 12 (L) Glucose 74 - 99 mg/dL 118 (H) 85 BUN 7 - 21 mg/dL 31 (H) 26 (H) Creatinine 0.58 - 0.96 mg/dL 1.63 (H) 1.49 (H) Sodium 136 - 144 mmol/L 139 140 Potassium 3.7 - 5.1 mmol/L 3.9 4.4 Chloride 97 - 105 mmol/L 108 (H) 107 (H) CO2 22 - 30 mmol/L 16 (L) 20 (L) Anion Gap 9 - 18 mmol/L 15 13 ALT 7 - 38 U/L 10 eGFR- 38 42 eGFR-All Other Races . 32 35 Protein, Urine Random 0 - 20 mg/dL 17 23 (H) 17 Creatinine, Ur Random (UCRR) 20.0 - 300.0 mg/dL 65.0 70.7 54.2 Protein/Creat Ratio <0.2 0.3 (H) 0.3 (H) 0.3 (H) Fatigue, unspecified type Chronic depression Seeing Cary Loredo On Lamotrigine 150mg riri Has helped with shaking. Seems to be worse with stress. Lupus (hcc) Follows with [facility] rheumatology: Current medication: Hydroxychloroquine 20 mg daily Identifies that she is in pain continuously, primary site affected her knees, identifies generalized pain, fatigue, intermittent dry mouth, intermittent dry eyes, significant back pain which she is also following in pain management. Last eye exam 09/16/2020 Dr. Dean Abraham, no retinopathy detected Reinaldo (obstructive sleep apnea) No treatment Chronic pain. Seeing Dr. Sommers sent to spine surgeon in [place] Talked about a morphine pump. Has spinal stimulator and patient states pain management was upset with this HISTORIES FAMILY HISTORY Problem Relation Age of Onset Hypertension Mother Hyperlipidemia Mother Cancer Father metastatic Diabetes Maternal Grandmother Heart Failure Maternal Grandfather Thyroid No Family History Factor 5 Leiden No Family History Stroke No Family History Blood Clots No Family History Auto-Immune Disorder No Family History Systemic Lupus Erythematosus No Family History Multiple Sclerosis No Family History Coronary Artery Disease No Family History Bipolar disorder No Family History Schizophrenia No Family History PAST MEDICAL HISTORY Diagnosis Date Aspiration pneumonia (HCC) 04/2019 [facility] DDD (degenerative disc disease) Depression Diabetes mellitus without mention of complication Fibromyalgia Hyperlipidemia Iron deficiency anemia, unspecified Dr Duong Lupus ([facility]) Obesity Vitamin D deficiency 2012 PAST SURGICAL HISTORY Procedure Laterality Date ARTHRP KNE CONDYLE&PLATU MEDIAL&LAT COMPARTMENTS Left 02/25/2017 Dr. Eric Jones CARDIAC CATH 2007 no stenosis minimal plaque CARPAL TUNNEL bilateral CHOLECYSTECTOMY 1998 Cholecystectomy COLONOSCOPY & POLYPECTOMY 07/27/13 TA x 2, hyperplastic x 5. Repeat in 3y. COLONOSCOPY FLX DX W/COLLJ SPEC WHEN PFRMD 08/15/07 Repeat in COLONOSCOPY FLX DX W/COLLJ SPEC WHEN PFRMD 07/11/2016 Colonoscopy COLONOSCOPY FLX DX W/COLLJ SPEC WHEN PFRMD 12/24/2019 Colonoscopy EGD TRANSORAL BIOPSY SINGLE/MULTIPLE 08/15/07 ESOPHAGOGASTRODUODENOSCOPY TRANSORAL DIAGNOSTIC 02/01/2010 EGD ESOPHAGOGASTRODUODENOSCOPY TRANSORAL DIAGNOSTIC 07/27/13 gastritis ESOPHAGOGASTRODUODENOSCOPY TRANSORAL DIAGNOSTIC 07/11/2016 EGD ESOPHAGOGASTRODUODENOSCOPY TRANSORAL DIAGNOSTIC 12/24/2019 EGD LIG/TRNSXJ FLP TUBE ABDL/VAG APPR UNI/BI 1983 Tubal ligation LUMBAR DISCOGRAM OPEN REPAIR OF ROTATOR CUFF ACUTE 12/31/08 Rotator cuff repair, right PAST SURGICAL HISTORY OF 2001 RIGHT ANKLE ORIF PAST SURGICAL HISTORY OF low back injections PAST SURGICAL HISTORY OF 04/30/2011 Anterior lumbar interbody fusion L4-5 L5-S1 PAST SURGICAL HISTORY OF 05/30/11 Posterior lumbar fusion S SPINAL CORD STIM/IMPLANTN 01/2014 Social History Tobacco Use Smoking status: Former Smoker Packs/day: 1.00 Years: 0.50 Pack years: 0.50 Types: Cigarettes Quit date: 04/05/1985 Years since quittin.3 Smokeless tobacco: Never Used Tobacco comment: Smoked for 6 months total. Vaping Use Vaping Use: Never used Substance Use Topics Alcohol use: No Drug use: No ACTIVE PROBLEM LIST Mixed Hyperlipidemia Iron Deficiency Anemia Chronic Depression Thoracic Or Lumbosacral Neuritis Or Radiculitis, Unspecified Anxiety Esophagitis, Unspecified Enthesopathy of Ankle and Tarsus, Unspecified Fibromyalgia Ddd (Degenerative Disc Disease), Lumbar Obesity Vitamin D Deficiency Other Pain Disorders Related to Psychological Factors Malabsorption of Iron Type 2 Diabetes Mellitus With Diabetic Neuropathy, With Long-Term Current Use of Insulin ([facility]) Primary Osteoarthritis of Left Knee Abnormal Ekg Absolute Anemia Diastolic Dysfunction, Left Ventricle Chronic Renal Insufficiency, Stage 3 (Moderate) ([facility]) Major Depressive Disorder, Recurrent Severe Without Psychotic Features ([facility]) Panic Disorder With Agoraphobia Chronic Post-Traumatic Stress Disorder (Ptsd) Current Outpatient Medications Medication Sig Dispense Refill furosemide (LASIX) 20 mg tablet Take 1 tablet by mouth twice daily. Patient may adjust from baseline 40 mg daily up to 40 mg twice daily based on weight gain greater than 3 pounds plus either increased shortness of breath or increased swelling. 30 tablet 0 pravastatin (PRAVACHOL) 20 mg tablet Take 1 tablet by mouth daily at bedtime. 90 tablet 3 cholecalciferol, Vitamin D3, (VITAMIN D3) 1,250 mcg (50,000 unit) cap capsule Take 1 capsule by mouth one time a week. 4 capsule 0 lamoTRIgine (LAMICTAL) 100 mg tablet Take 1 tablet by mouth twice daily. 60 tablet 1 sucralfate (CARAFATE) 1 gram tablet Take 1 tablet by mouth three times daily before meals. 42 tablet 2 hydrOXYchloroQUINE (PLAQUENIL) 200 mg tablet Take 1 tablet by mouth once daily. 90 tablet 0 insulin glargine (LANTUS SOLOSTAR U-100 INSULIN) 100 unit/mL (3 mL) Inject 60 Units subcutaneously daily at bedtime. 5 Pen 11 omeprazole (PRILOSEC) 40 mg capsule Take 1 capsule by mouth once daily. 90 capsule 1 acetaminophen (TYLENOL EXTRA STRENGTH) 500 mg tablet Take 1,000 mg by mouth every 8 hours as needed. ibuprofen (ADVIL) 200 mg tablet Take 600 mg by mouth twice daily as needed. metFORMIN ER (GLUCOPHAGE XR) 500 mg 24 hr tablet Take 1 tablet by mouth twice daily with meals. 180 tablet 3 acetaminophen 325 mg-caffeine 40 mg-butalbital 50 mg (FIORICET) per capsule Take 1 capsule by mouth every 6 hours as needed. 12 capsule 0 fluticasone (FLONASE) 50 mcg/actuation nasal spray Use 2 Sprays in each nostril once daily. Rinse mouth after use. 1 Bottle 11 Insulin [place], Disposable, (PEN NEEDLES) 31 gauge x 1/4 ndle Once a day for insulin usage. 100 Each 3 blood sugar diagnostic (BLOOD GLUCOSE TEST) test strip Test blood sugar(s) 3 times daily. Dx: Type 2 DM - Uncontrolled E11.65 Insulin: Yes 100 Strip 11 blood sugar diagnostic (FREESTYLE LITE STRIPS) test strip Test blood sugar(s) 3 times daily. Dx: 250.02. Insulin: Yes 100 Strip 3 gabapentin (NEURONTIN) 300 mg capsule Take 1 capsule by mouth three times daily. 0 No current facility-administered medications for this visit. HIV SCREENING Never done MAMMOGRAM due on 06/12/2018 DIABETIC FOOT EXAM due on 06/05/2019 BONE DENSITY Never done PNEUMOVAX AGE 65 AND OVER WITH 5YR LOOKBACK(1) due on 01/30/2021 COVID-19 VACCINE(3 - Moderna risk series) due on 02/08/2021 ADVANCE DIRECTIVE DISCUSSION Never done LDL CHOLESTEROL due on 04/14/2021 URINE ALBUMIN:CREATININE RATIO due on 06/30/2021 DILATED RETINAL EXAM due on 09/16/2021 EXAM: BP 112/60 Pulse 82 Wt 101.6 kg (224 lb) LMP 12/07/2007 SpO2 96% BMI 36.15 kg/m Pleasant overweight adult woman in no acute distress. Alert and oriented all spheres. Normal affect and cognition. Speech normal. No deficits to learning or comprehension. Skin warm, dry, pink to lips and nailbeds. Normal turgor. Respirations regular and unlabored. HEENT: NCAT. No scleral icterus or conjunctival injection. TM's clear. Nose and oropharynx free from injection or lesion. Oral membranes moist and pink. No cervical lymph nodes. Thyroid non-tender, no masses, or enlargement. Carotids pulses 2+/4+ without bruits. No JVD with HOB at 30 degrees. Chest is normal shape. Lungs are clear to all angel with good air exchange through out. HRRR without murmur or gallop. No lifts, heaves, or rubs. Extrem: no clubbing, cyanosis, edema. Distal pulses 2+/4, prompt capillary refill. Extrem: no clubbing or cyanosis. Edema: none. Extremities are warm and pink with prompt capillary refill. Feet:Shoes and socks removed, No deformities, ulcers, calluses, normal distal pulses, sensitive to 10 gm monofilament with patchy areas of none sensitivity on the right lateral foot fourth and fifth toes and lateral side of the foot. Had sensation in the right great toe second and third toes close to attachment to the foot but not distally. Left foot sensation was intact. And calluses noted bilaterally. No breakdown. ASSESSMENT/PLAN: 1. Type 2 diabetes mellitus with diabetic neuropathy, with long-term current use of insulin (HCC) - ICD9: 250.60, 357.2, V58.67, ICD10: E11.40, Z79.4 (primary diagnosis) Controlled. - Continue current medications - ALBUMIN/CREAT RATIO RND UR - METFORMIN ER 500 MG TABLET,EXTENDED RELEASE 24 HR - HGB A1C - COMP METABOLIC PANEL 2. Mixed hyperlipidemia - ICD9: 272.2, ICD10: E78.2 - good control - Continue current medication. - COMP METABOLIC PANEL - LIPID PANEL BASIC 3. Renal insufficiency - ICD9: 593.9, ICD10: N28.9 Last check with worsening control: recheck - COMP METABOLIC PANEL 4. Fatigue, unspecified type - ICD9: 780.79, ICD10: R53.83 - CBC 5. Chronic depression - ICD9: 311, ICD10: F32.A Following with psych 6. Lupus (HCC) - ICD9: 710.0, ICD10: M32.9 Following with rheum 7. REINALDO (obstructive sleep apnea) - ICD9: 327.23, ICD10: G47.33 No treatment: discussed complications untreated REINALDO. 8. Fibromyalgia - ICD9: 729.1, ICD10: M79.7 9. Esophagitis - ICD9: 530.10, ICD10: K20.90 Sx controlled 10. Malabsorption of iron - ICD9: 579.8, ICD10: K90.9 Awaiting contact from [facility] regarding iron infusions. 11. DDD (degenerative disc disease), lumbar - ICD9: 722.52, ICD10: M51.36 Following pain management and neurosurgery. 12. Anemia, unspecified type - ICD9: 285.9, ICD10: D64.9 As above 13. Diastolic dysfunction, left ventricle - ICD9: 429.9, ICD10: I51.9 No current signs CHF Follows with [place] cardiology 14. Chronic renal insufficiency, stage 3 (moderate) (HCC) - ICD9: 585.3, ICD10: N18.30 Needs recheck, labs above. 15. Major depressive disorder, recurrent severe without psychotic features ([facility]) - ICD9: 296.33, ICD10: F33.2 Following with psych, relatively stable. 16. Panic disorder with agoraphobia - ICD9: 300.21, ICD10: F40.01 As above. Follow-up 6 months and as needed. Ailyn Carson PA-C documented in this encounter [facility] 08-17-2021 Miscellaneous Notes Message left for patient to contact office. First iron scheduled. Please confirm with patient, document and close encounter. Patient called to schedule iron treatment can be reached at [phone] Carol [place] Per Nhung in a separate phone note: Please inform pt. that her iron studies are low. Iron as ordered yesterday. CBC/iron studies in 2-3 months. OV/CBC/iron studies in 6 months. Thank you. Nhung Wallis APRN.[employer]ED CAR [employer]IVER Left message for patient to return call to schedule above. Alannah Bella Patient returned office and would like someone to call her back to schedule. Thank you Left message for patient to return call. When patient calls, please schedule 5 iron sucrose infusions, document and close this note. Alannah Bella documented in this encounter [facility] 08-16-2021 Miscellaneous Notes See other phone note dated today's date (08/16/21). Alannah Bella Please inform pt. that her iron studies are low. Iron as ordered yesterday. CBC/iron studies in 2-3 months. OV/CBC/iron studies in 6 months. Thank you. Nhung Wallis APRN.[employer]ORED CAR [employer]IVER documented in this encounter [facility] 08-15-2021 History of Present illness Narrative Chief Complaint Patient presents with: Established Patient HPI: Nikki Carr is a 66 year old female who presents here today for follow up anemia. Per Dr. Duong's previous note: H/o rheumatoid arthritis, lupus, hyperlipidemia, type 2 diabetes (neuropathy) and congestive heart failure. Received IV iron Dextran in 1998--former patient of Dr. Armijo. CBC in 2005 showed a hemoglobin of 10.8 g/dL , MCV was 65.2 platelet count of 433, ferritin low at 8.2, serum iron was low at 27. CBC and Rachel in 2007 was 9.4 g/dL MCV was 64.8, count 559. She underwent colonoscopy and EGD that showed colonic mucosa was entirely normal no bleeding sites were found. The body of the antrum appeared erythematous and changes consistent with chronic gastritis. She underwent repeat EGD February 01, 2010. There was mild erythema in the body and antrum of the stomach without ulcerations. Biopsy of duodenal mucosa showed no evidence of celiac disease. Hemoccult stools on February 14, 2010 were negative 3/3 specimens. Capsule endoscopy performed on March 22, 2010 showed no pathology in the small bowel. Minimally or edema in the prepyloric antrum was seen. She had been on oral iron for 2 years without any resolution in her anemia. She also she also had constipation and abdominal cramping from the oral iron. PREVIOUS THERAPY: 1) Iron dextran (2gm) 04/13/2010. Received iron sucrose infusions 06/2013, 03/2014 x8. EGD/Colonoscopy 07/2013-Dr. Xiong. F/u scopes in 3 years. Colonoscopy/EGD July 11, 2016. Next due in 5 years. Iron infusions-Early 2016. September 2017. Pt. received iron sucrose October 12-11/02/19. Last received iron sucrose 2020. Today isn't a good day. Appetite: I can go most of the day and not eat but once I start I can't stop. Energy level: None. Once in awhile I have a good day. Denies fevers or recent illness. Resp:denies cough or sob Cardiac:denies chest pain/palpitations GI:denies abd pain, n/v, moving bowels regularly :denies dysuria/hematuria Extrem:chronic back pain-followed by [facility]-applying for medical marijuana Neuro:+neuropathy to feet Skin:denies rashes Heme:denies bleeding The ROS is otherwise negative. Past medical history, appointments, medications, allergies reviewed. No changes. EXAM: BP 119/50 Pulse 78 Temp 36.9 C (98.5 F) (Temporal) Wt 103.9 kg (229 lb) LMP 12/07/2007 BMI 36.96 kg/m APPEARANCE Well appearing, alert, in no acute distress, well-hydrated, well nourished. HEART RRR with normal S1 and S2, no murmurs LUNG clear to auscultation LYMPH NODES No cervical lymphadenopathy, No supraclavicular lymphadenopathy and No axillary lymphadenopathy. ABDOMEN bowel sounds normoactive, soft, non-tender, non-distended, without organomegaly or palpable masses EXTREMITIES No edema NEURO Awake, alert and oriented x 3, using walker today and No involuntary motions. SKIN Skin color, texture, turgor normal, no suspicious rashes or lesions LABS: Component Latest Ref Rng & Units 05/03/2021 05/15/2021 08/15/2021 WBC 3.70 - 11.00 k/uL 12.71 (H) 11.79 (H) 9.20 RBC 3.90 - 5.20 m/uL 4.44 4.24 3.75 (L) Hemoglobin 11.5 - 15.5 g/dL 11.5 11.1 (L) 9.8 (L) Hematocrit 36.0 - 46.0 % 40.6 37.7 32.5 (L) MCV 80.0 - 100.0 fL 91.4 88.9 86.7 MCH 26.0 - 34.0 pg 25.9 (L) 26.2 26.1 MCHC 30.5 - 36.0 g/dL 28.3 (L) 29.4 (L) 30.2 (L) RDW-CV 11.5 - 15.0 % 15.4 (H) 15.2 (H) 16.6 (H) Platelet Count 150 - 400 k/uL 312 317 243 MPV 9.0 - 12.7 fL 11.0 9.8 9.9 Neut% % 76.0 75.7 76.2 Abs Neut (ANC) 1.45 - 7.50 k/uL 9.66 (H) 8.93 (H) 7.01 Lymph% % 13.6 13.1 11.4 Abs Lymph 1.00 - 4.00 k/uL 1.73 1.54 1.05 [place]% % 5.2 6.1 4.9 Abs [place] <0.87 k/uL 0.66 0.72 0.45 [place]% % 4.7 4.6 6.0 Abs Eosin <0.46 k/uL 0.60 (H) 0.54 (H) 0.55 (H) Baso% % 0.5 0.5 0.4 Abs Baso <0.11 k/uL 0.06 0.06 0.04 Immature Gran % % 1.1 IMMATURE GRANS (ABS) <0.10 k/uL 0.10 (H) NRBC /100 WBC 0.0 Absolute nRBC <0.01 k/uL <0.01 <0.01 <0.01 DTYPE Auto Nucleated Reds 0 /100 WBC 0.0 0.0 Diff Type Auto Diff Auto Diff Iron studies: Pending ASSESSMENT/PLAN: 1. Other iron deficiency anemia - ICD9: 280.8, ICD10: D50.8 (primary diagnosis) 2. Anemia, unspecified type - ICD9: 285.9, ICD10: D64.[address] Duong's previous note 06/20/20: Assessment: -The patient is a 65-year-old female with a history of iron deficiency anemia. She has been through multiple endoscopies and capsule endoscopy with no particular evidence of significant GI bleed. She has received multiple parenteral courses of iron over the last 10 years. Most recently early June of this year. -Her ferritin was improved when last checked. She was since hospitalized for congestive heart failure. She has lost 21 pounds since of hospitalization through diuresis. -Still has mild anemia. -Incidentally, reviewed old CT images from [facility]. 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 Calcified lesion that was stable in 2016 and April [address] imaging. I personally reviewed those 2 CT scans with 1 done in 2009. Was stable on CT imaging from 2016 to 2019. Plan: -Recheck of iron as well as other lab work to rule out other causes of anemia. -Repeat CBC/iron studies in 3 months. -Office visit in 6 months. - No new concerning findings on exam. - Reviewed CBC with pt. Hgb down. Last received iron 12/2020. - Iron studies pending. - Please schedule iron sucrose x5 doses. - Follow up pending iron studies. - Pt. aware to call office with any questions/concerns. The patient indicates understanding of these issues and agrees with the plan. All documentation from previous visit of 02/07/21-Dr. Duong/myself was copied and pasted, documentation has been reviewed and edited as necessary for today's visit. Nhung Wallis APRN.[employer]ED [employer]IVER documented in this encounter [facility] 08-14-[address] new orders for Ferritin, Iron +TIBC, and CBC + DIFF. Orders released inappropriately during check in. documented in this encounter [facility] 08-14-2021 Miscellaneous Notes Please file order documented in this encounter [facility] 08-11-2021 Miscellaneous Notes jitendra-- 02/08/21 Next office visit 08/17/21 Last refill-- 08/04/21 30 with 0 refills Last labs-- 08/01/21 documented in this encounter [facility] 08-07-2021 Miscellaneous Notes Patient has been identified by name and date of : Yes Patient phones for refill(s): Pending Prescriptions Disp Refills PRAVASTATIN 20 MG TABLET 90 tablet 3 Sig: Take 1 tablet by mouth daily at bedtime. JON: No Date of last office visit in primary care: VV 02/08/2021 JITENDRA 09/14/2020 Appointment scheduled 08/17/2021 Last 2 Encounter Wt Readings: Date: Wt: 07/12/2021 102.5 kg (226 lb) 05/18/2021 98 kg (216 lb) Please advise. Thank you. THU Sauceda documented in this encounter [facility] 08-04-2021 Miscellaneous Notes Patient phones requesting refills as follows: Pending Prescriptions Disp Refills FUROSEMIDE 20 MG TABLET 30 tablet 0 Sig: Take 1 tablet by mouth twice daily. Patient may adjust from baseline 40 mg daily up to 40 mg twice daily based on weight gain greater than 3 pounds plus either increased shortness of breath or increased swelling. JON: No JITENDRA-02/08/21 Labs-05/15/21 NOV-08/17/21 Please review and advise. Yin Da Silva LPN documented in this encounter [facility] 07-11-2021 Miscellaneous Notes The following approved medication requests have been transmitted electronically. Signed Prescriptions Disp Refills hydrOXYchloroQUINE (PLAQUENIL) 200 mg tablet 90 tablet 0 Sig: Take 1 tablet by mouth once daily. JON: No Authorizing Provider: TYLER DIXON APRN.TODD Patient has been identified by name and date of : Yes RX INSTRUCTIONS: Patient aware RX will be sent to pharmacy. No need to notify patient. Eye exam for Plaquenil toxicity received from [facility]. Exam date was 09/16/2020. Exam shows no signs of Plaquenil toxicity. LAST APPOINTMENT: 04/28/2021 UPCOMING APPOINTMENT: Visit date not found LABS: Hemoglobin (g/dL) Date Value 05/15/2021 11.1 Hematocrit (%) Date Value 05/15/2021 37.7 WBC (k/uL) Date Value 05/15/2021 11.79 Platelet Count (k/uL) Date Value 05/15/2021 317 AST Date Value Ref Range Status 05/03/2021 22 13 - 35 U/L Final ALT Date Value Ref Range Status 05/03/2021 20 7 - 38 U/L Final Creatinine Date Value Ref Range Status 05/03/2021 1.37 (H) 0.58 - 0.96 mg/dL Final No results found for: URICACID Ilda Quintanilla MA documented in this encounter [facility] 07-11-2021 Miscellaneous Notes Patient has been identified by name and date of : Yes Pending Prescriptions Disp Refills SUCRALFATE 1 GRAM TABLET 42 tablet 2 Sig: Take 1 tablet by mouth three times daily before meals. JON: No RX INSTRUCTIONS: Patient aware RX will be sent to pharmacy. No need to notify patient. Emilia Ca MA Jitendra: 02/2021 No appointment scheduled Last refill; 04/29 documented in this encounter [facility] 07-10-2021 Miscellaneous Notes Patient phones requesting refills as follows: Pending Prescriptions Disp Refills LANTUS SOLOSTAR U-100 INSULIN 100 UNIT/ML (3 ML) SUBCUTANEOUS PEN 5 Pen 11 Sig: Inject 60 Units subcutaneously daily at bedtime. JON: No JITENDRA-02/08/21 Labs-05/15/21 NOV-none med filled 06/15/20 Please review and advise. Yin Da Silva LPN documented in this encounter [facility] documented as of this encounter (statuses as of 07/10/2021) [facility] History of Past illness Narrative* Problem Noted Date Resolved Date Aspiration pneumonia 04/08/2019 10/26/2020 Overview: [facility] Type 2 diabetes mellitus wit hout complication, with long-term current use of insulin 10/13/2015 10/13/2015 Overview: Insulin dependent 2010 Arthritis of knee 02/24/2013 11/19/2016 Peripheral neuropathy 06/23/2011 05/26/2019 Overview: Right great toe. Radicular vs diabetic. Pressure ulcer 06/23/2011 11/19/2016 Lower back pain 05/04/2011 11/19/2016 Depression 10/06/2009 11/22/2009 Generalized osteoarthrosis, unspecified site 05/26/2019 PAIN JOINT, KNEE 10/01/2008 11/19/2016 PAIN BACK, LOW 12/09/2007 11/19/2016 Unspecified disorder of mens truation and other abnormal bleeding from female genital tract 12/09/2007 06/05/2018 Nausea with vomiting 12/09/2007 06/05/2018 Acute gastritis with hemorrhage 08/20/2007 05/26/2019 Diabetes mellitus 01/23/2006 10/13/2015 Overview: Insulin dependent 2010 Other malaise and fatigue 01/23/20062019 Anemia 06/12/2017 Lupus 10/26/2020 documented as of this encounter (statuses as of 07/11/2021) [facility] History of Past illness Narrative* Problem Noted Date Resolved Date Aspiration pneumonia 04/08/2019 10/26/2020 Overview: [facility] Type 2 diabetes mellitus wit hout complication, with long-term current use of insulin 10/13/2015 10/13/2015 Overview: Insulin dependent 2010 Arthritis of knee 02/24/2013 11/19/2016 Peripheral neuropathy 06/23/2011 05/26/2019 Overview: Right great toe. Radicular vs diabetic. Pressure ulcer 06/23/2011 11/19/2016 Lower back pain 05/04/2011 11/19/2016 Depression 10/06/2009 11/22/2009 Generalized osteoarthrosis, unspecified site 05/26/2019 PAIN JOINT, KNEE 10/01/2008 11/19/2016 PAIN BACK, LOW 12/09/2007 11/19/2016 Unspecified disorder of mens truation and other abnormal bleeding from female genital tract 12/09/2007 06/05/2018 Nausea with vomiting 12/09/2007 06/05/2018 Acute gastritis with hemorrhage 08/20/2007 05/26/2019 Diabetes mellitus 01/23/2006 10/13/2015 Overview: Insulin dependent 2010 Other malaise and fatigue 01/23/20062019 Anemia 06/12/2017 Lupus 10/26/2020 documented as of this encounter (statuses as of 07/11/2021) [facility] History of Past illness Narrative* Problem Noted Date Resolved Date Aspiration pneumonia 04/08/2019 10/26/2020 Overview: [facility] Type 2 diabetes mellitus wit hout complication, with long-term current use of insulin 10/13/2015 10/13/2015 Overview: Insulin dependent 2010 Arthritis of knee 02/24/2013 11/19/2016 Peripheral neuropathy 06/23/2011 05/26/2019 Overview: Right great toe. Radicular vs diabetic. Pressure ulcer 06/23/2011 11/19/2016 Lower back pain 05/04/2011 11/19/2016 Depression 10/06/2009 11/22/2009 Generalized osteoarthrosis, unspecified site 05/26/2019 PAIN JOINT, KNEE 10/01/2008 11/19/2016 PAIN BACK, LOW 12/09/2007 11/19/2016 Unspecified disorder of mens truation and other abnormal bleeding from female genital tract 12/09/2007 06/05/2018 Nausea with vomiting 12/09/2007 06/05/2018 Acute gastritis with hemorrhage 08/20/2007 05/26/2019 Diabetes mellitus 01/23/2006 10/13/2015 Overview: Insulin dependent 2010 Other malaise and fatigue 01/23/20062019 Anemia 06/12/2017 Lupus 10/26/2020 documented as of this encounter (statuses as of 08/04/2021) [facility] History of Past illness Narrative* Problem Noted Date Resolved Date Aspiration pneumonia 04/08/2019 10/26/2020 Overview: [facility] Type 2 diabetes mellitus wit hout complication, with long-term current use of insulin 10/13/2015 10/13/2015 Overview: Insulin dependent 2010 Arthritis of knee 02/24/2013 11/19/2016 Peripheral neuropathy 06/23/2011 05/26/2019 Overview: Right great toe. Radicular vs diabetic. Pressure ulcer 06/23/2011 11/19/2016 Lower back pain 05/04/2011 11/19/2016 Depression 10/06/2009 11/22/2009 Generalized osteoarthrosis, unspecified site 05/26/2019 PAIN JOINT, KNEE 10/01/2008 11/19/2016 PAIN BACK, LOW 12/09/2007 11/19/2016 Unspecified disorder of mens truation and other abnormal bleeding from female genital tract 12/09/2007 06/05/2018 Nausea with vomiting 12/09/2007 06/05/2018 Acute gastritis with hemorrhage 08/20/2007 05/26/2019 Diabetes mellitus 01/23/2006 10/13/2015 Overview: Insulin dependent 2010 Other malaise and fatigue 01/23/20062019 Anemia 06/12/2017 Lupus 10/26/2020 documented as of this encounter (statuses as of 08/04/2021) [facility] History of Past illness Narrative* Problem Noted Date Resolved Date Aspiration pneumonia 04/08/2019 10/26/2020 Overview: [facility] Type 2 diabetes mellitus wit hout complication, with long-term current use of insulin 10/13/2015 10/13/2015 Overview: Insulin dependent 2010 Arthritis of knee 02/24/2013 11/19/2016 Peripheral neuropathy 06/23/2011 05/26/2019 Overview: Right great toe. Radicular vs diabetic. Pressure ulcer 06/23/2011 11/19/2016 Lower back pain 05/04/2011 11/19/2016 Depression 10/06/2009 11/22/2009 Generalized osteoarthrosis, unspecified site 05/26/2019 PAIN JOINT, KNEE 10/01/2008 11/19/2016 PAIN BACK, LOW 12/09/2007 11/19/2016 Unspecified disorder of mens truation and other abnormal bleeding from female genital tract 12/09/2007 06/05/2018 Nausea with vomiting 12/09/2007 06/05/2018 Acute gastritis with hemorrhage 08/20/2007 05/26/2019 Diabetes mellitus 01/23/2006 10/13/2015 Overview: Insulin dependent 2010 Other malaise and fatigue 01/23/20062019 Anemia 06/12/2017 Lupus 10/26/2020 documented as of this encounter (statuses as of 08/07/2021) [facility]01-01-2020 History of Past illness Narrative* Problem Noted Date Resolved Date Aspiration pneumonia 04/08/2019 10/26/2020 Overview: [facility] Type 2 diabetes mellitus wit hout complication, with long-term current use of insulin 10/13/2015 10/13/2015 Overview: Insulin dependent 2010 Arthritis of knee 02/24/2013 11/19/2016 Peripheral neuropathy 06/23/2011 05/26/2019 Overview: Right great toe. Radicular vs diabetic. Pressure ulcer 06/23/2011 11/19/2016 Lower back pain 05/04/2011 11/19/2016 Depression 10/06/2009 11/22/2009 Generalized osteoarthrosis, unspecified site 05/26/2019 PAIN JOINT, KNEE 10/01/2008 11/19/2016 PAIN BACK, LOW 12/09/2007 11/19/2016 Unspecified disorder of mens truation and other abnormal bleeding from female genital tract 12/09/2007 06/05/2018 Nausea with vomiting 12/09/2007 06/05/2018 Acute gastritis with hemorrhage 08/20/2007 05/26/2019 Diabetes mellitus 01/23/2006 10/13/2015 Overview: Insulin dependent 2010 Other malaise and fatigue 01/23/20062019 Anemia 06/12/2017 Lupus 10/26/2020 documented as of this encounter (statuses as of 08/11/2021) [facility]01-01-2020 History of Past illness Narrative* Problem Noted Date Resolved Date Aspiration pneumonia 04/08/2019 10/26/2020 Overview: [facility] Type 2 diabetes mellitus wit hout complication, with long-term current use of insulin 10/13/2015 10/13/2015 Overview: Insulin dependent 2010 Arthritis of knee 02/24/2013 11/19/2016 Peripheral neuropathy 06/23/2011 05/26/2019 Overview: Right great toe. Radicular vs diabetic. Pressure ulcer 06/23/2011 11/19/2016 Lower back pain 05/04/2011 11/19/2016 Depression 10/06/2009 11/22/2009 Generalized osteoarthrosis, unspecified site 05/26/2019 PAIN JOINT, KNEE 10/01/2008 11/19/2016 PAIN BACK, LOW 12/09/2007 11/19/2016 Unspecified disorder of mens truation and other abnormal bleeding from female genital tract 12/09/2007 06/05/2018 Nausea with vomiting 12/09/2007 06/05/2018 Acute gastritis with hemorrhage 08/20/2007 05/26/2019 Diabetes mellitus 01/23/2006 10/13/2015 Overview: Insulin dependent 2010 Other malaise and fatigue 01/23/20062019 Anemia 06/12/2017 Lupus 10/26/2020 documented as of this encounter (statuses as of 08/14/2021) [facility]01-[facility]2020 History of Past illness Narrative* Problem Noted Date Resolved Date Aspiration pneumonia 04/08/2019 10/26/2020 Overview: [facility] Type 2 diabetes mellitus wit hout complication, with long-term current use of insulin 10/13/2015 10/13/2015 Overview: Insulin dependent 2010 Arthritis of knee 02/24/2013 11/19/2016 Peripheral neuropathy 06/23/2011 05/26/2019 Overview: Right great toe. Radicular vs diabetic. Pressure ulcer 06/23/2011 11/19/2016 Lower back pain 05/04/2011 11/19/2016 Depression 10/06/2009 11/22/2009 Generalized osteoarthrosis, unspecified site 05/26/2019 PAIN JOINT, KNEE 10/01/2008 11/19/2016 PAIN BACK, LOW 12/09/2007 11/19/2016 Unspecified disorder of mens truation and other abnormal bleeding from female genital tract 12/09/2007 06/05/2018 Nausea with vomiting 12/09/2007 06/05/2018 Acute gastritis with hemorrhage 08/20/2007 05/26/2019 Diabetes mellitus 01/23/2006 10/13/2015 Overview: Insulin dependent 2010 Other malaise and fatigue 01/23/20062019 Anemia 06/12/2017 Lupus 10/26/2020 documented as of this encounter (statuses as of 08/14/2021) [facility]2020 History of Past illness Narrative* Problem Noted Date Resolved Date Aspiration pneumonia 04/08/2019 10/26/2020 Overview: [facility] Type 2 diabetes mellitus wit hout complication, with long-term current use of insulin 10/13/2015 10/13/2015 Overview: Insulin dependent 2010 Arthritis of knee 02/24/2013 11/19/2016 Peripheral neuropathy 06/23/2011 05/26/2019 Overview: Right great toe. Radicular vs diabetic. Pressure ulcer 06/23/2011 11/19/2016 Lower back pain 05/04/2011 11/19/2016 Depression 10/06/2009 11/22/2009 Generalized osteoarthrosis, unspecified site 05/26/2019 PAIN JOINT, KNEE 10/01/2008 11/19/2016 PAIN BACK, LOW 12/09/2007 11/19/2016 Unspecified disorder of mens truation and other abnormal bleeding from female genital tract 12/09/2007 06/05/2018 Nausea with vomiting 12/09/2007 06/05/2018 Acute gastritis with hemorrhage 08/20/2007 05/26/2019 Diabetes mellitus 01/23/2006 10/13/2015 Overview: Insulin dependent 2010 Other malaise and fatigue 01/23/20062019 Anemia 06/12/2017 Lupus 10/26/2020 documented as of this encounter (statuses as of 08/16/2021) [facility]2020 History of Past illness Narrative* Problem Noted Date Resolved Date Aspiration pneumonia 04/08/2019 10/26/2020 Overview: [facility] Type 2 diabetes mellitus wit hout complication, with long-term current use of insulin 10/13/2015 10/13/2015 Overview: Insulin dependent 2010 Arthritis of knee 02/24/2013 11/19/2016 Peripheral neuropathy 06/23/2011 05/26/2019 Overview: Right great toe. Radicular vs diabetic. Pressure ulcer 06/23/2011 11/19/2016 Lower back pain 05/04/2011 11/19/2016 Depression 10/06/2009 11/22/2009 Generalized osteoarthrosis, unspecified site 05/26/2019 PAIN JOINT, KNEE 10/01/2008 11/19/2016 PAIN BACK, LOW 12/09/2007 11/19/2016 Unspecified disorder of mens truation and other abnormal bleeding from female genital tract 12/09/2007 06/05/2018 Nausea with vomiting 12/09/2007 06/05/2018 Acute gastritis with hemorrhage 08/20/2007 05/26/2019 Diabetes mellitus 01/23/2006 10/13/2015 Overview: Insulin dependent 2010 Other malaise and fatigue 01/23/20062019 Anemia 06/12/2017 Lupus 10/26/2020 documented as of this encounter (statuses as of 08/16/2021) [facility]01-01[facility]2020 History of Past illness Narrative* Problem Noted Date Resolved Date Aspiration pneumonia 04/08/2019 10/26/2020 Overview: [facility] Type 2 diabetes mellitus wit hout complication, with long-term current use of insulin 10/13/2015 10/13/2015 Overview: Insulin dependent 2010 Arthritis of knee 02/24/2013 11/19/2016 Peripheral neuropathy 06/23/2011 05/26/2019 Overview: Right great toe. Radicular vs diabetic. Pressure ulcer 06/23/2011 11/19/2016 Lower back pain 05/04/2011 11/19/2016 Depression 10/06/2009 11/22/2009 Generalized osteoarthrosis, unspecified site 05/26/2019 PAIN JOINT, KNEE 10/01/2008 11/19/2016 PAIN BACK, LOW 12/09/2007 11/19/2016 Unspecified disorder of mens truation and other abnormal bleeding from female genital tract 12/09/2007 06/05/2018 Nausea with vomiting 12/09/2007 06/05/2018 Acute gastritis with hemorrhage 08/20/2007 05/26/2019 Diabetes mellitus 01/23/2006 10/13/2015 Overview: Insulin dependent 2010 Other malaise and fatigue 01/23/20062019 Anemia 06/12/2017 documented as of this encounter (statuses as of 08/18/2021) [facility]01-01-2020 History of Past illness Narrative* Problem Noted Date Resolved Date Aspiration pneumonia 04/08/2019 10/26/2020 Overview: [facility] Type 2 diabetes mellitus wit hout complication, with long-term current use of insulin 10/13/2015 10/13/2015 Overview: Insulin dependent 2010 Arthritis of knee 02/24/2013 11/19/2016 Peripheral neuropathy 06/23/2011 05/26/2019 Overview: Right great toe. Radicular vs diabetic. Pressure ulcer 06/23/2011 11/19/2016 Lower back pain 05/04/2011 11/19/2016 Depression 10/06/2009 11/22/2009 Generalized osteoarthrosis, unspecified site 05/26/2019 PAIN JOINT, KNEE 10/01/2008 11/19/2016 PAIN BACK, LOW 12/09/2007 11/19/2016 Unspecified disorder of mens truation and other abnormal bleeding from female genital tract 12/09/2007 06/05/2018 Nausea with vomiting 12/09/2007 06/05/2018 Acute gastritis with hemorrhage 08/20/2007 05/26/2019 Diabetes mellitus 01/23/2006 10/13/2015 Overview: Insulin dependent 2010 Other malaise and fatigue 01/23/20062019 Anemia 06/12/2017 documented as of this encounter (statuses as of 08/23/2021) [facility]01-[facility]2020 History of Past illness Narrative* Problem Noted Date Resolved Date Aspiration pneumonia 04/08/2019 10/26/2020 Overview: [facility] Type 2 diabetes mellitus wit hout complication, with long-term current use of insulin 10/13/2015 10/13/2015 Overview: Insulin dependent 2010 Arthritis of knee 02/24/2013 11/19/2016 Peripheral neuropathy 06/23/2011 05/26/2019 Overview: Right great toe. Radicular vs diabetic. Pressure ulcer 06/23/2011 11/19/2016 Lower back pain 05/04/2011 11/19/2016 Depression 10/06/2009 11/22/2009 Generalized osteoarthrosis, unspecified site 05/26/2019 PAIN JOINT, KNEE 10/01/2008 11/19/2016 PAIN BACK, LOW 12/09/2007 11/19/2016 Unspecified disorder of mens truation and other abnormal bleeding from female genital tract 12/09/2007 06/05/2018 Nausea with vomiting 12/09/2007 06/05/2018 Acute gastritis with hemorrhage 08/20/2007 05/26/2019 Diabetes mellitus 01/23/2006 10/13/2015 Overview: Insulin dependent 2010 Other malaise and fatigue 01/23/20062019 Anemia 06/12/2017 documented as of this encounter (statuses as of 08/24/2021) [facility]01-01-2020 History of Past illness Narrative* Problem Noted Date Resolved Date Aspiration pneumonia 04/08/2019 10/26/2020 Overview: [facility] Type 2 diabetes mellitus wit hout complication, with long-term current use of insulin 10/13/2015 10/13/2015 Overview: Insulin dependent 2010 Arthritis of knee 02/24/2013 11/19/2016 Peripheral neuropathy 06/23/2011 05/26/2019 Overview: Right great toe. Radicular vs diabetic. Pressure ulcer 06/23/2011 11/19/2016 Lower back pain 05/04/2011 11/19/2016 Depression 10/06/2009 11/22/2009 Generalized osteoarthrosis, unspecified site 05/26/2019 PAIN JOINT, KNEE 10/01/2008 11/19/2016 PAIN BACK, LOW 12/09/2007 11/19/2016 Unspecified disorder of mens truation and other abnormal bleeding from female genital tract 12/09/2007 06/05/2018 Nausea with vomiting 12/09/2007 06/05/2018 Acute gastritis with hemorrhage 08/20/2007 05/26/2019 Diabetes mellitus 01/23/2006 10/13/2015 Overview: Insulin dependent 2010 Other malaise and fatigue 01/23/20062019 Anemia 06/12/2017 documented as of this encounter (statuses as of 08/28/2021) [facility]01-01[facility]2020 History of Past illness Narrative* Problem Noted Date Resolved Date Aspiration pneumonia 04/08/2019 10/26/2020 Overview: [facility] Type 2 diabetes mellitus wit hout complication, with long-term current use of insulin 10/13/2015 10/13/2015 Overview: Insulin dependent 2010 Arthritis of knee 02/24/2013 11/19/2016 Peripheral neuropathy 06/23/2011 05/26/2019 Overview: Right great toe. Radicular vs diabetic. Pressure ulcer 06/23/2011 11/19/2016 Lower back pain 05/04/2011 11/19/2016 Depression 10/06/2009 11/22/2009 Generalized osteoarthrosis, unspecified site 05/26/2019 PAIN JOINT, KNEE 10/01/2008 11/19/2016 PAIN BACK, LOW 12/09/2007 11/19/2016 Unspecified disorder of mens truation and other abnormal bleeding from female genital tract 12/09/2007 06/05/2018 Nausea with vomiting 12/09/2007 06/05/2018 Acute gastritis with hemorrhage 08/20/2007 05/26/2019 Diabetes mellitus 01/23/2006 10/13/2015 Overview: Insulin dependent 2010 Other malaise and fatigue 01/23/20062019 Anemia 06/12/2017 documented as of this encounter (statuses as of 08/30/2021) [facility]01-01[facility]2020 History of Past illness Narrative* Problem Noted Date Resolved Date Aspiration pneumonia 04/08/2019 10/26/2020 Overview: [facility] Type 2 diabetes mellitus wit hout complication, with long-term current use of insulin 10/13/2015 10/13/2015 Overview: Insulin dependent 2010 Arthritis of knee 02/24/2013 11/19/2016 Peripheral neuropathy 06/23/2011 05/26/2019 Overview: Right great toe. Radicular vs diabetic. Pressure ulcer 06/23/2011 11/19/2016 Lower back pain 05/04/2011 11/19/2016 Depression 10/06/2009 11/22/2009 Generalized osteoarthrosis, unspecified site 05/26/2019 PAIN JOINT, KNEE 10/01/2008 11/19/2016 PAIN BACK, LOW 12/09/2007 11/19/2016 Unspecified disorder of mens truation and other abnormal bleeding from female genital tract 12/09/2007 06/05/2018 Nausea with vomiting 12/09/2007 06/05/2018 Acute gastritis with hemorrhage 08/20/2007 05/26/2019 Diabetes mellitus 01/23/2006 10/13/2015 Overview: Insulin dependent 2010 Other malaise and fatigue 01/23/20062019 Anemia 06/12/2017 documented as of this encounter (statuses as of 09/01/2021) [facility]01[facility]2020 History of Past illness Narrative* Problem Noted Date Resolved Date Aspiration pneumonia 04/08/2019 10/26/2020 Overview: [facility] Type 2 diabetes mellitus wit hout complication, with long-term current use of insulin 10/13/2015 10/13/2015 Overview: Insulin dependent 2010 Arthritis of knee 02/24/2013 11/19/2016 Peripheral neuropathy 06/23/2011 05/26/2019 Overview: Right great toe. Radicular vs diabetic. Pressure ulcer 06/23/2011 11/19/2016 Lower back pain 05/04/2011 11/19/2016 Depression 10/06/2009 11/22/2009 Generalized osteoarthrosis, unspecified site 05/26/2019 PAIN JOINT, KNEE 10/01/2008 11/19/2016 PAIN BACK, LOW 12/09/2007 11/19/2016 Unspecified disorder of mens truation and other abnormal bleeding from female genital tract 12/09/2007 06/05/2018 Nausea with vomiting 12/09/2007 06/05/2018 Acute gastritis with hemorrhage 08/20/2007 05/26/2019 Diabetes mellitus 01/23/2006 10/13/2015 Overview: Insulin dependent 2010 Other malaise and fatigue 01/23/20062019 Anemia 06/12/2017 documented as of this encounter (statuses as of 09/01/2021) [facility]01[facility]2020 History of Past illness Narrative* Problem Noted Date Resolved Date Aspiration pneumonia 04/08/2019 10/26/2020 Overview: [facility] Type 2 diabetes mellitus wit hout complication, with long-term current use of insulin 10/13/2015 10/13/2015 Overview: Insulin dependent 2010 Arthritis of knee 02/24/2013 11/19/2016 Peripheral neuropathy 06/23/2011 05/26/2019 Overview: Right great toe. Radicular vs diabetic. Pressure ulcer 06/23/2011 11/19/2016 Lower back pain 05/04/2011 11/19/2016 Depression 10/06/2009 11/22/2009 Generalized osteoarthrosis, unspecified site 05/26/2019 PAIN JOINT, KNEE 10/01/2008 11/19/2016 PAIN BACK, LOW 12/09/2007 11/19/2016 Unspecified disorder of mens truation and other abnormal bleeding from female genital tract 12/09/2007 06/05/2018 Nausea with vomiting 12/09/2007 06/05/2018 Acute gastritis with hemorrhage 08/20/2007 05/26/2019 Diabetes mellitus 01/23/2006 10/13/2015 Overview: Insulin dependent 2010 Other malaise and fatigue 01/23/20062019 Anemia 06/12/2017 documented as of this encounter (statuses as of 09/11/2021) [facility]01-01[facility]2020 History of Past illness Narrative* Problem Noted Date Resolved Date Aspiration pneumonia 04/08/2019 10/26/2020 Overview: [facility] Type 2 diabetes mellitus wit hout complication, with long-term current use of insulin 10/13/2015 10/13/2015 Overview: Insulin dependent 2010 Arthritis of knee 02/24/2013 11/19/2016 Peripheral neuropathy 06/23/2011 05/26/2019 Overview: Right great toe. Radicular vs diabetic. Pressure ulcer 06/23/2011 11/19/2016 Lower back pain 05/04/2011 11/19/2016 Depression 10/06/2009 11/22/2009 Generalized osteoarthrosis, unspecified site 05/26/2019 PAIN JOINT, KNEE 10/01/2008 11/19/2016 PAIN BACK, LOW 12/09/2007 11/19/2016 Unspecified disorder of mens truation and other abnormal bleeding from female genital tract 12/09/2007 06/05/2018 Nausea with vomiting 12/09/2007 06/05/2018 Acute gastritis with hemorrhage 08/20/2007 05/26/2019 Diabetes mellitus 01/23/2006 10/13/2015 Overview: Insulin dependent 2010 Other malaise and fatigue 01/23/20062019 Anemia 06/12/2017 documented as of this encounter (statuses as of 09/12/2021) [facility]01[facility]2020 History of Past illness Narrative* Problem Noted Date Resolved Date Aspiration pneumonia 04/08/2019 10/26/2020 Overview: [facility] Type 2 diabetes mellitus wit hout complication, with long-term current use of insulin 10/13/2015 10/13/2015 Overview: Insulin dependent 2010 Arthritis of knee 02/24/2013 11/19/2016 Peripheral neuropathy 06/23/2011 05/26/2019 Overview: Right great toe. Radicular vs diabetic. Pressure ulcer 06/23/2011 11/19/2016 Lower back pain 05/04/2011 11/19/2016 Depression 10/06/2009 11/22/2009 Generalized osteoarthrosis, unspecified site 05/26/2019 PAIN JOINT, KNEE 10/01/2008 11/19/2016 PAIN BACK, LOW 12/09/2007 11/19/2016 Unspecified disorder of mens truation and other abnormal bleeding from female genital tract 12/09/2007 06/05/2018 Nausea with vomiting 12/09/2007 06/05/2018 Acute gastritis with hemorrhage 08/20/2007 05/26/2019 Diabetes mellitus 01/23/2006 10/13/2015 Overview: Insulin dependent 2010 Other malaise and fatigue 01/23/20062019 Anemia 06/12/2017 documented as of this encounter (statuses as of 09/22/2021) [facility]2020 History of Past illness Narrative* Problem Noted Date Resolved Date Aspiration pneumonia 04/08/2019 10/26/2020 Overview: [facility] Type 2 diabetes mellitus wit hout complication, with long-term current use of insulin 10/13/2015 10/13/2015 Overview: Insulin dependent 2010 Arthritis of knee 02/24/2013 11/19/2016 Peripheral neuropathy 06/23/2011 05/26/2019 Overview: Right great toe. Radicular vs diabetic. Pressure ulcer 06/23/2011 11/19/2016 Lower back pain 05/04/2011 11/19/2016 Depression 10/06/2009 11/22/2009 Generalized osteoarthrosis, unspecified site 05/26/2019 PAIN JOINT, KNEE 10/01/2008 11/19/2016 PAIN BACK, LOW 12/09/2007 11/19/2016 Unspecified disorder of mens truation and other abnormal bleeding from female genital tract 12/09/2007 06/05/2018 Nausea with vomiting 12/09/2007 06/05/2018 Acute gastritis with hemorrhage 08/20/2007 05/26/2019 Diabetes mellitus 01/23/2006 10/13/2015 Overview: Insulin dependent 2010 Other malaise and fatigue 01/23/20062019 Anemia 06/12/2017 documented as of this encounter (statuses as of 09/29/2021) [facility]2020 History of Past illness Narrative* Problem Noted Date Resolved Date Aspiration pneumonia 04/08/2019 10/26/2020 Overview: [facility] Type 2 diabetes mellitus wit hout complication, with long-term current use of insulin 10/13/2015 10/13/2015 Overview: Insulin dependent 2010 Arthritis of knee 02/24/2013 11/19/2016 Peripheral neuropathy 06/23/2011 05/26/2019 Overview: Right great toe. Radicular vs diabetic. Pressure ulcer 06/23/2011 11/19/2016 Lower back pain 05/04/2011 11/19/2016 Depression 10/06/2009 11/22/2009 Generalized osteoarthrosis, unspecified site 05/26/2019 PAIN JOINT, KNEE 10/01/2008 11/19/2016 PAIN BACK, LOW 12/09/2007 11/19/2016 Unspecified disorder of mens truation and other abnormal bleeding from female genital tract 12/09/2007 06/05/2018 Nausea with vomiting 12/09/2007 06/05/2018 Acute gastritis with hemorrhage 08/20/2007 05/26/2019 Diabetes mellitus 01/23/2006 10/13/2015 Overview: Insulin dependent 2010 Other malaise and fatigue 01/23/20062019 Anemia 06/12/2017 documented as of this encounter (statuses as of 09/30/2021) [facility]2020 History of Past illness Narrative* Problem Noted Date Resolved Date Aspiration pneumonia 04/08/2019 10/26/2020 Overview: [facility] Type 2 diabetes mellitus wit hout complication, with long-term current use of insulin 10/13/2015 10/13/2015 Overview: Insulin dependent 2010 Arthritis of knee 02/24/2013 11/19/2016 Peripheral neuropathy 06/23/2011 05/26/2019 Overview: Right great toe. Radicular vs diabetic. Pressure ulcer 06/23/2011 11/19/2016 Lower back pain 05/04/2011 11/19/2016 Depression 10/06/2009 11/22/2009 Generalized osteoarthrosis, unspecified site 05/26/2019 PAIN JOINT, KNEE 10/01/2008 11/19/2016 PAIN BACK, LOW 12/09/2007 11/19/2016 Unspecified disorder of mens truation and other abnormal bleeding from female genital tract 12/09/2007 06/05/2018 Nausea with vomiting 12/09/2007 06/05/2018 Acute gastritis with hemorrhage 08/20/2007 05/26/2019 Diabetes mellitus 01/23/2006 10/13/2015 Overview: Insulin dependent 2010 Other malaise and fatigue 01/23/20062019 Anemia 06/12/2017 documented as of this encounter (statuses as of 10/02/2021) [facility] History of Past illness Narrative* Problem Noted Date Resolved Date Aspiration pneumonia 04/08/2019 10/26/2020 Overview: [facility] Type 2 diabetes mellitus wit hout complication, with long-term current use of insulin 10/13/2015 10/13/2015 Overview: Insulin dependent 2010 Arthritis of knee 02/24/2013 11/19/2016 Peripheral neuropathy 06/23/2011 05/26/2019 Overview: Right great toe. Radicular vs diabetic. Pressure ulcer 06/23/2011 11/19/2016 Lower back pain 05/04/2011 11/19/2016 Depression 10/06/2009 11/22/2009 Generalized osteoarthrosis, unspecified site 05/26/2019 PAIN JOINT, KNEE 10/01/2008 11/19/2016 PAIN BACK, LOW 12/09/2007 11/19/2016 Unspecified disorder of mens truation and other abnormal bleeding from female genital tract 12/09/2007 06/05/2018 Nausea with vomiting 12/09/2007 06/05/2018 Acute gastritis with hemorrhage 08/20/2007 05/26/2019 Diabetes mellitus 01/23/2006 10/13/2015 Overview: Insulin dependent 2010 Other malaise and fatigue 01/23/20062019 Anemia 06/12/2017 documented as of this encounter (statuses as of 10/04/2021) [facility]2020 History of Past illness Narrative* Problem Noted Date Resolved Date Aspiration pneumonia 04/08/2019 10/26/2020 Overview: [facility] Type 2 diabetes mellitus wit hout complication, with long-term current use of insulin 10/13/2015 10/13/2015 Overview: Insulin dependent 2010 Arthritis of knee 02/24/2013 11/19/2016 Peripheral neuropathy 06/23/2011 05/26/2019 Overview: Right great toe. Radicular vs diabetic. Pressure ulcer 06/23/2011 11/19/2016 Lower back pain 05/04/2011 11/19/2016 Depression 10/06/2009 11/22/2009 Generalized osteoarthrosis, unspecified site 05/26/2019 PAIN JOINT, KNEE 10/01/2008 11/19/2016 PAIN BACK, LOW 12/09/2007 11/19/2016 Unspecified disorder of mens truation and other abnormal bleeding from female genital tract 12/09/2007 06/05/2018 Nausea with vomiting 12/09/2007 06/05/2018 Acute gastritis with hemorrhage 08/20/2007 05/26/2019 Diabetes mellitus 01/23/2006 10/13/2015 Overview: Insulin dependent 2010 Other malaise and fatigue 01/23/20062019 Anemia 06/12/2017 documented as of this encounter (statuses as of 10/05/2021) [facility] History of Past illness Narrative* Problem Noted Date Resolved Date Aspiration pneumonia 04/08/2019 10/26/2020 Overview: [facility] Type 2 diabetes mellitus wit hout complication, with long-term current use of insulin 10/13/2015 10/13/2015 Overview: Insulin dependent 2010 Arthritis of knee 02/24/2013 11/19/2016 Peripheral neuropathy 06/23/2011 05/26/2019 Overview: Right great toe. Radicular vs diabetic. Pressure ulcer 06/23/2011 11/19/2016 Lower back pain 05/04/2011 11/19/2016 Depression 10/06/2009 11/22/2009 Generalized osteoarthrosis, unspecified site 05/26/2019 PAIN JOINT, KNEE 10/01/2008 11/19/2016 PAIN BACK, LOW 12/09/2007 11/19/2016 Unspecified disorder of mens truation and other abnormal bleeding from female genital tract 12/09/2007 06/05/2018 Nausea with vomiting 12/09/2007 06/05/2018 Acute gastritis with hemorrhage 08/20/2007 05/26/2019 Diabetes mellitus 01/23/2006 10/13/2015 Overview: Insulin dependent 2010 Other malaise and fatigue 01/23/20062019 Anemia 06/12/2017 documented as of this encounter (statuses as of 10/05/2021) [facility] History of Past illness Narrative* Problem Noted Date Resolved Date Aspiration pneumonia 04/08/2019 10/26/2020 Overview: [facility] Type 2 diabetes mellitus wit hout complication, with long-term current use of insulin 10/13/2015 10/13/2015 Overview: Insulin dependent 2010 Arthritis of knee 02/24/2013 11/19/2016 Peripheral neuropathy 06/23/2011 05/26/2019 Overview: Right great toe. Radicular vs diabetic. Pressure ulcer 06/23/2011 11/19/2016 Lower back pain 05/04/2011 11/19/2016 Depression 10/06/2009 11/22/2009 Generalized osteoarthrosis, unspecified site 05/26/2019 PAIN JOINT, KNEE 10/01/2008 11/19/2016 PAIN BACK, LOW 12/09/2007 11/19/2016 Unspecified disorder of mens truation and other abnormal bleeding from female genital tract 12/09/2007 06/05/2018 Nausea with vomiting 12/09/2007 06/05/2018 Acute gastritis with hemorrhage 08/20/2007 05/26/2019 Diabetes mellitus 01/23/2006 10/13/2015 Overview: Insulin dependent 2010 Other malaise and fatigue 01/23/20062019 Anemia 06/12/2017 documented as of this encounter (statuses as of 10/20/2021) [facility]01-01-2020 History of Past illness Narrative* Problem Noted Date Resolved Date Aspiration pneumonia 04/08/2019 10/26/2020 Overview: [facility] Type 2 diabetes mellitus wit hout complication, with long-term current use of insulin 10/13/2015 10/13/2015 Overview: Insulin dependent 2010 Arthritis of knee 02/24/2013 11/19/2016 Peripheral neuropathy 06/23/2011 05/26/2019 Overview: Right great toe. Radicular vs diabetic. Pressure ulcer 06/23/2011 11/19/2016 Lower back pain 05/04/2011 11/19/2016 Depression 10/06/2009 11/22/2009 Generalized osteoarthrosis, unspecified site 05/26/2019 PAIN JOINT, KNEE 10/01/2008 11/19/2016 PAIN BACK, LOW 12/09/2007 11/19/2016 Unspecified disorder of mens truation and other abnormal bleeding from female genital tract 12/09/2007 06/05/2018 Nausea with vomiting 12/09/2007 06/05/2018 Acute gastritis with hemorrhage 08/20/2007 05/26/2019 Diabetes mellitus 01/23/2006 10/13/2015 Overview: Insulin dependent 2010 Other malaise and fatigue 01/23/20062019 Anemia 06/12/2017 documented as of this encounter (statuses as of 11/06/2021) [facility]01-01-2020 History of Past illness Narrative* Problem Noted Date Resolved Date Aspiration pneumonia 04/08/2019 10/26/2020 Overview: [facility] Type 2 diabetes mellitus wit hout complication, with long-term current use of insulin 10/13/2015 10/13/2015 Overview: Insulin dependent 2010 Arthritis of knee 02/24/2013 11/19/2016 Peripheral neuropathy 06/23/2011 05/26/2019 Overview: Right great toe. Radicular vs diabetic. Pressure ulcer 06/23/2011 11/19/2016 Lower back pain 05/04/2011 11/19/2016 Depression 10/06/2009 11/22/2009 Generalized osteoarthrosis, unspecified site 05/26/2019 PAIN JOINT, KNEE 10/01/2008 11/19/2016 PAIN BACK, LOW 12/09/2007 11/19/2016 Unspecified disorder of mens truation and other abnormal bleeding from female genital tract 12/09/2007 06/05/2018 Nausea with vomiting 12/09/2007 06/05/2018 Acute gastritis with hemorrhage 08/20/2007 05/26/2019 Diabetes mellitus 01/23/2006 10/13/2015 Overview: Insulin dependent 2010 Other malaise and fatigue 01/23/20062019 Anemia 06/12/2017 documented as of this encounter (statuses as of 11/06/2021) [facility]01-01-2020 History of Past illness Narrative* Problem Noted Date Resolved Date Aspiration pneumonia 04/08/2019 10/26/2020 Overview: [facility] Type 2 diabetes mellitus wit hout complication, with long-term current use of insulin 10/13/2015 10/13/2015 Overview: Insulin dependent 2010 Arthritis of knee 02/24/2013 11/19/2016 Peripheral neuropathy 06/23/2011 05/26/2019 Overview: Right great toe. Radicular vs diabetic. Pressure ulcer 06/23/2011 11/19/2016 Lower back pain 05/04/2011 11/19/2016 Depression 10/06/2009 11/22/2009 Generalized osteoarthrosis, unspecified site 05/26/2019 PAIN JOINT, KNEE 10/01/2008 11/19/2016 PAIN BACK, LOW 12/09/2007 11/19/2016 Unspecified disorder of mens truation and other abnormal bleeding from female genital tract 12/09/2007 06/05/2018 Nausea with vomiting 12/09/2007 06/05/2018 Acute gastritis with hemorrhage 08/20/2007 05/26/2019 Diabetes mellitus 01/23/2006 10/13/2015 Overview: Insulin dependent 2010 Other malaise and fatigue 01/23/20062019 Anemia 06/12/2017 documented as of this encounter (statuses as of 11/20/2021) [facility]01-[facility]2020 History of Past illness Narrative* Problem Noted Date Resolved Date Aspiration pneumonia 04/08/2019 10/26/2020 Overview: [facility] Type 2 diabetes mellitus wit hout complication, with long-term current use of insulin 10/13/2015 10/13/2015 Overview: Insulin dependent 2010 Arthritis of knee 02/24/2013 11/19/2016 Peripheral neuropathy 06/23/2011 05/26/2019 Overview: Right great toe. Radicular vs diabetic. Pressure ulcer 06/23/2011 11/19/2016 Lower back pain 05/04/2011 11/19/2016 Depression 10/06/2009 11/22/2009 Generalized osteoarthrosis, unspecified site 05/26/2019 PAIN JOINT, KNEE 10/01/2008 11/19/2016 PAIN BACK, LOW 12/09/2007 11/19/2016 Unspecified disorder of mens truation and other abnormal bleeding from female genital tract 12/09/2007 06/05/2018 Nausea with vomiting 12/09/2007 06/05/2018 Acute gastritis with hemorrhage 08/20/2007 05/26/2019 Diabetes mellitus 01/23/2006 10/13/2015 Overview: Insulin dependent 2010 Other malaise and fatigue 01/23/20062019 Anemia 06/12/2017 documented as of this encounter (statuses as of 11/20/2021) [facility]01-01[facility]2020 History of Past illness Narrative* Problem Noted Date Resolved Date Aspiration pneumonia 04/08/2019 10/26/2020 Overview: [facility] Type 2 diabetes mellitus wit hout complication, with long-term current use of insulin 10/13/2015 10/13/2015 Overview: Insulin dependent 2010 Arthritis of knee 02/24/2013 11/19/2016 Peripheral neuropathy 06/23/2011 05/26/2019 Overview: Right great toe. Radicular vs diabetic. Pressure ulcer 06/23/2011 11/19/2016 Lower back pain 05/04/2011 11/19/2016 Depression 10/06/2009 11/22/2009 Generalized osteoarthrosis, unspecified site 05/26/2019 PAIN JOINT, KNEE 10/01/2008 11/19/2016 PAIN BACK, LOW 12/09/2007 11/19/2016 Unspecified disorder of mens truation and other abnormal bleeding from female genital tract 12/09/2007 06/05/2018 Nausea with vomiting 12/09/2007 06/05/2018 Acute gastritis with hemorrhage 08/20/2007 05/26/2019 Diabetes mellitus 01/23/2006 10/13/2015 Overview: Insulin dependent 2010 Other malaise and fatigue 01/23/20062019 Anemia 06/12/2017 documented as of this encounter (statuses as of 11/27/2021) [facility]01-01[facility]2020 History of Past illness Narrative* Problem Noted Date Resolved Date Aspiration pneumonia 04/08/2019 10/26/2020 Overview: [facility] Type 2 diabetes mellitus wit hout complication, with long-term current use of insulin 10/13/2015 10/13/2015 Overview: Insulin dependent 2010 Arthritis of knee 02/24/2013 11/19/2016 Peripheral neuropathy 06/23/2011 05/26/2019 Overview: Right great toe. Radicular vs diabetic. Pressure ulcer 06/23/2011 11/19/2016 Lower back pain 05/04/2011 11/19/2016 Depression 10/06/2009 11/22/2009 Generalized osteoarthrosis, unspecified site 05/26/2019 PAIN JOINT, KNEE 10/01/2008 11/19/2016 PAIN BACK, LOW 12/09/2007 11/19/2016 Unspecified disorder of mens truation and other abnormal bleeding from female genital tract 12/09/2007 06/05/2018 Nausea with vomiting 12/09/2007 06/05/2018 Acute gastritis with hemorrhage 08/20/2007 05/26/2019 Diabetes mellitus 01/23/2006 10/13/2015 Overview: Insulin dependent 2010 Other malaise and fatigue 01/23/20062019 Anemia 06/12/2017 documented as of this encounter (statuses as of 11/28/2021) [facility]01-01[facility]2020 History of Past illness Narrative* Problem Noted Date Resolved Date Aspiration pneumonia 04/08/2019 10/26/2020 Overview: [facility] Type 2 diabetes mellitus wit hout complication, with long-term current use of insulin 10/13/2015 10/13/2015 Overview: Insulin dependent 2010 Arthritis of knee 02/24/2013 11/19/2016 Peripheral neuropathy 06/23/2011 05/26/2019 Overview: Right great toe. Radicular vs diabetic. Pressure ulcer 06/23/2011 11/19/2016 Lower back pain 05/04/2011 11/19/2016 Depression 10/06/2009 11/22/2009 Generalized osteoarthrosis, unspecified site 05/26/2019 PAIN JOINT, KNEE 10/01/2008 11/19/2016 PAIN BACK, LOW 12/09/2007 11/19/2016 Unspecified disorder of mens truation and other abnormal bleeding from female genital tract 12/09/2007 06/05/2018 Nausea with vomiting 12/09/2007 06/05/2018 Acute gastritis with hemorrhage 08/20/2007 05/26/2019 Diabetes mellitus 01/23/2006 10/13/2015 Overview: Insulin dependent 2010 Other malaise and fatigue 01/23/20062019 Anemia 06/12/2017 documented as of this encounter (statuses as of 12/07/2021) [facility]01[facility]2020 History of Past illness Narrative* Problem Noted Date Resolved Date Aspiration pneumonia 04/08/2019 10/26/2020 Overview: [facility] Type 2 diabetes mellitus wit hout complication, with long-term current use of insulin 10/13/2015 10/13/2015 Overview: Insulin dependent 2010 Arthritis of knee 02/24/2013 11/19/2016 Peripheral neuropathy 06/23/2011 05/26/2019 Overview: Right great toe. Radicular vs diabetic. Pressure ulcer 06/23/2011 11/19/2016 Lower back pain 05/04/2011 11/19/2016 Depression 10/06/2009 11/22/2009 Generalized osteoarthrosis, unspecified site 05/26/2019 PAIN JOINT, KNEE 10/01/2008 11/19/2016 PAIN BACK, LOW 12/09/2007 11/19/2016 Unspecified disorder of mens truation and other abnormal bleeding from female genital tract 12/09/2007 06/05/2018 Nausea with vomiting 12/09/2007 06/05/2018 Acute gastritis with hemorrhage 08/20/2007 05/26/2019 Diabetes mellitus 01/23/2006 10/13/2015 Overview: Insulin dependent 2010 Other malaise and fatigue 01/23/20062019 Anemia 06/12/2017 documented as of this encounter (statuses as of 12/07/2021) [facility]01-01[facility]2020 History of Past illness Narrative* Problem Noted Date Resolved Date Aspiration pneumonia 04/08/2019 10/26/2020 Overview: [facility] Type 2 diabetes mellitus wit hout complication, with long-term current use of insulin 10/13/2015 10/13/2015 Overview: Insulin dependent 2010 Arthritis of knee 02/24/2013 11/19/2016 Peripheral neuropathy 06/23/2011 05/26/2019 Overview: Right great toe. Radicular vs diabetic. Pressure ulcer 06/23/2011 11/19/2016 Lower back pain 05/04/2011 11/19/2016 Depression 10/06/2009 11/22/2009 Generalized osteoarthrosis, unspecified site 05/26/2019 PAIN JOINT, KNEE 10/01/2008 11/19/2016 PAIN BACK, LOW 12/09/2007 11/19/2016 Unspecified disorder of mens truation and other abnormal bleeding from female genital tract 12/09/2007 06/05/2018 Nausea with vomiting 12/09/2007 06/05/2018 Acute gastritis with hemorrhage 08/20/2007 05/26/2019 Diabetes mellitus 01/23/2006 10/13/2015 Overview: Insulin dependent 2010 Other malaise and fatigue 01/23/20062019 Anemia 06/12/2017 documented as of this encounter (statuses as of 12/18/2021) [facility]01-01[facility]2020 History of Past illness Narrative* Problem Noted Date Resolved Date Aspiration pneumonia 04/08/2019 10/26/2020 Overview: [facility] Type 2 diabetes mellitus wit hout complication, with long-term current use of insulin 10/13/2015 10/13/2015 Overview: Insulin dependent 2010 Arthritis of knee 02/24/2013 11/19/2016 Peripheral neuropathy 06/23/2011 05/26/2019 Overview: Right great toe. Radicular vs diabetic. Pressure ulcer 06/23/2011 11/19/2016 Lower back pain 05/04/2011 11/19/2016 Depression 10/06/2009 11/22/2009 Generalized osteoarthrosis, unspecified site 05/26/2019 PAIN JOINT, KNEE 10/01/2008 11/19/2016 PAIN BACK, LOW 12/09/2007 11/19/2016 Unspecified disorder of mens truation and other abnormal bleeding from female genital tract 12/09/2007 06/05/2018 Nausea with vomiting 12/09/2007 06/05/2018 Acute gastritis with hemorrhage 08/20/2007 05/26/2019 Diabetes mellitus 01/23/2006 10/13/2015 Overview: Insulin dependent 2010 Other malaise and fatigue 01/23/20062019 Anemia 06/12/2017 documented as of this encounter (statuses as of 02/20/2022) [facility]01-01[facility]2020 History of Past illness Narrative* Problem Noted Date Resolved Date Aspiration pneumonia 04/08/2019 10/26/2020 Overview: [facility] Type 2 diabetes mellitus wit hout complication, with long-term current use of insulin 10/13/2015 10/13/2015 Overview: Insulin dependent 2010 Arthritis of knee 02/24/2013 11/19/2016 Peripheral neuropathy 06/23/2011 05/26/2019 Overview: Right great toe. Radicular vs diabetic. Pressure ulcer 06/23/2011 11/19/2016 Lower back pain 05/04/2011 11/19/2016 Depression 10/06/2009 11/22/2009 Generalized osteoarthrosis, unspecified site 05/26/2019 PAIN JOINT, KNEE 10/01/2008 11/19/2016 PAIN BACK, LOW 12/09/2007 11/19/2016 Unspecified disorder of mens truation and other abnormal bleeding from female genital tract 12/09/2007 06/05/2018 Nausea with vomiting 12/09/2007 06/05/2018 Acute gastritis with hemorrhage 08/20/2007 05/26/2019 Diabetes mellitus 01/23/2006 10/13/2015 Overview: Insulin dependent 2010 Other malaise and fatigue 01/23/20062019 Anemia 06/12/2017 documented as of this encounter (statuses as of 02/23/2022) [facility] History of Past illness Narrative* Problem Noted Date Resolved Date Aspiration pneumonia 04/08/2019 10/26/2020 Overview: [facility] Type 2 diabetes mellitus wit hout complication, with long-term current use of insulin 10/13/2015 10/13/2015 Overview: Insulin dependent 2010 Arthritis of knee 02/24/2013 11/19/2016 Peripheral neuropathy 06/23/2011 05/26/2019 Overview: Right great toe. Radicular vs diabetic. Pressure ulcer 06/23/2011 11/19/2016 Lower back pain 05/04/2011 11/19/2016 Depression 10/06/2009 11/22/2009 Generalized osteoarthrosis, unspecified site 05/26/2019 PAIN JOINT, KNEE 10/01/2008 11/19/2016 PAIN BACK, LOW 12/09/2007 11/19/2016 Unspecified disorder of mens truation and other abnormal bleeding from female genital tract 12/09/2007 06/05/2018 Nausea with vomiting 12/09/2007 06/05/2018 Acute gastritis with hemorrhage 08/20/2007 05/26/2019 Diabetes mellitus 01/23/2006 10/13/2015 Overview: Insulin dependent 2010 Other malaise and fatigue 01/23/20062019 Anemia 06/12/2017 documented as of this encounter (statuses as of 03/14/2022) [facility]01[facility]2020 History of Past illness Narrative* Problem Noted Date Resolved Date Aspiration pneumonia 04/08/2019 10/26/2020 Overview: [facility] Type 2 diabetes mellitus wit hout complication, with long-term current use of insulin 10/13/2015 10/13/2015 Overview: Insulin dependent 2010 Arthritis of knee 02/24/2013 11/19/2016 Peripheral neuropathy 06/23/2011 05/26/2019 Overview: Right great toe. Radicular vs diabetic. Pressure ulcer 06/23/2011 11/19/2016 Lower back pain 05/04/2011 11/19/2016 Depression 10/06/2009 11/22/2009 Generalized osteoarthrosis, unspecified site 05/26/2019 PAIN JOINT, KNEE 10/01/2008 11/19/2016 PAIN BACK, LOW 12/09/2007 11/19/2016 Unspecified disorder of mens truation and other abnormal bleeding from female genital tract 12/09/2007 06/05/2018 Nausea with vomiting 12/09/2007 06/05/2018 Acute gastritis with hemorrhage 08/20/2007 05/26/2019 Diabetes mellitus 01/23/2006 10/13/2015 Overview: Insulin dependent 2010 Other malaise and fatigue 01/23/20062019 Anemia 06/12/2017 documented as of this encounter (statuses as of 03/23/2022) [facility]01[facility]2020 History of Past illness Narrative* Problem Noted Date Resolved Date Aspiration pneumonia 04/08/2019 10/26/2020 Overview: [facility] Type 2 diabetes mellitus wit hout complication, with long-term current use of insulin 10/13/2015 10/13/2015 Overview: Insulin dependent 2010 Arthritis of knee 02/24/2013 11/19/2016 Peripheral neuropathy 06/23/2011 05/26/2019 Overview: Right great toe. Radicular vs diabetic. Pressure ulcer 06/23/2011 11/19/2016 Lower back pain 05/04/2011 11/19/2016 Depression 10/06/2009 11/22/2009 Generalized osteoarthrosis, unspecified site 05/26/2019 PAIN JOINT, KNEE 10/01/2008 11/19/2016 PAIN BACK, LOW 12/09/2007 11/19/2016 Unspecified disorder of mens truation and other abnormal bleeding from female genital tract 12/09/2007 06/05/2018 Nausea with vomiting 12/09/2007 06/05/2018 Acute gastritis with hemorrhage 08/20/2007 05/26/2019 Diabetes mellitus 01/23/2006 10/13/2015 Overview: Insulin dependent 2010 Other malaise and fatigue 01/23/20062019 Anemia 06/12/2017 documented as of this encounter (statuses as of 04/06/2022) [facility]01[facility]2020 History of Past illness Narrative* Problem Noted Date Resolved Date Aspiration pneumonia 04/08/2019 10/26/2020 [facility]: [facility] diabetes mellitus wit hout complication, with long-term current use of insulin 10/13/2015 10/13/2015 Overview: Insulin dependent 2010 Arthritis of knee 02/24/2013 11/19/2016 Peripheral neuropathy 06/23/2011 05/26/2019 Overview: Right great toe. Radicular vs diabetic. Pressure ulcer 06/23/2011 11/19/2016 Lower back pain 05/04/2011 11/19/2016 Depression 10/06/2009 11/22/2009 Generalized osteoarthrosis, unspecified site 05/26/2019 PAIN JOINT, KNEE 10/01/2008 11/19/2016 PAIN BACK, LOW 12/09/2007 11/19/2016 Unspecified disorder of mens truation and other abnormal bleeding from female genital tract 12/09/2007 06/05/2018 Nausea with vomiting 12/09/2007 06/05/2018 Acute gastritis with hemorrhage 08/20/2007 05/26/2019 Diabetes mellitus 01/23/2006 10/13/2015 Overview: Insulin dependent 2010 Other malaise and fatigue 01/23/20062019 Anemia 06/12/2017 documented as of this encounter (statuses as of 04/17/2022) [facility] History of Past illness Narrative* Problem Noted Date Resolved Date Aspiration pneumonia 04/08/2019 10/26/2020 Overview: [facility] Type 2 diabetes mellitus wit hout complication, with long-term current use of insulin 10/13/2015 10/13/2015 Overview: Insulin dependent 2010 Arthritis of knee 02/24/2013 11/19/2016 Peripheral neuropathy 06/23/2011 05/26/2019 Overview: Right great toe. Radicular vs diabetic. Pressure ulcer 06/23/2011 11/19/2016 Lower back pain 05/04/2011 11/19/2016 Depression 10/06/2009 11/22/2009 Generalized osteoarthrosis, unspecified site 05/26/2019 PAIN JOINT, KNEE 10/01/2008 11/19/2016 PAIN BACK, LOW 12/09/2007 11/19/2016 Unspecified disorder of mens truation and other abnormal bleeding from female genital tract 12/09/2007 06/05/2018 Nausea with vomiting 12/09/2007 06/05/2018 Acute gastritis with hemorrhage 08/20/2007 05/26/2019 Diabetes mellitus 01/23/2006 10/13/2015 Overview: Insulin dependent 2010 Other malaise and fatigue 01/23/20062019 Anemia 06/12/2017 documented as of this encounter (statuses as of 04/27/2022) [facility] History of Past illness Narrative* Problem Noted Date Resolved Date Aspiration pneumonia 04/08/2019 10/26/2020 Overview: [facility] Type 2 diabetes mellitus wit hout complication, with long-term current use of insulin 10/13/2015 10/13/2015 Overview: Insulin dependent 2010 Arthritis of knee 02/24/2013 11/19/2016 Peripheral neuropathy 06/23/2011 05/26/2019 Overview: Right great toe. Radicular vs diabetic. Pressure ulcer 06/23/2011 11/19/2016 Lower back pain 05/04/2011 11/19/2016 Esophagitis 02/01/2010 05/08/2022 Overview: 12/24/[address] Vee: A. stomach antrum: reactive gastropathy, focal granulation tissue, - H. Pylori 07/11/2016 EGD/ colonoscopy normal stomach, duodenum. Entire colon WNL. Path: A. Duodenum, distal WNL; B. stomach antrum Mild chronic inactive gastritis. - H. Pylori Depression 10/06/2009 11/22/2009 Generalized osteoarthrosis, unspecified site 05/26/2019 PAIN JOINT, KNEE 10/01/2008 11/19/2016 PAIN BACK, LOW 12/09/2007 11/19/2016 Unspecified disorder of mens truation and other abnormal bleeding from female genital tract 12/09/2007 06/05/2018 Nausea with vomiting 12/09/2007 06/05/2018 Acute gastritis with hemorrhage 08/20/2007 05/26/2019 Chronic depression 02/07/2006 05/08/2022 Diabetes mellitus 01/23/2006 10/13/2015 Overview: Insulin dependent 2010 Other malaise and fatigue 01/23/20062019 Anemia 06/12/2017 documented as of this encounter (statuses as of 05/14/2022) [facility] History of Past illness Narrative* Problem Noted Date Resolved Date Aspiration pneumonia 04/08/2019 10/26/2020 Overview: [facility] Type 2 diabetes mellitus wit hout complication, with long-term current use of insulin 10/13/2015 10/13/2015 Overview: Insulin dependent 2010 Arthritis of knee 02/24/2013 11/19/2016 Peripheral neuropathy 06/23/2011 05/26/2019 Overview: Right great toe. Radicular vs diabetic. Pressure ulcer 06/23/2011 11/19/2016 Lower back pain 05/04/2011 11/19/2016 Esophagitis 02/01/2010 05/08/2022 Overview: 12/24/[address] Vee: A. stomach antrum: reactive gastropathy, focal granulation tissue, - H. Pylori 07/11/2016 EGD/ colonoscopy normal stomach, duodenum. Entire colon WNL. Path: A. Duodenum, distal WNL; B. stomach antrum Mild chronic inactive gastritis. - H. Pylori Depression 10/06/2009 11/22/2009 Generalized osteoarthrosis, unspecified site 05/26/2019 PAIN JOINT, KNEE 10/01/2008 11/19/2016 PAIN BACK, LOW 12/09/2007 11/19/2016 Unspecified disorder of mens truation and other abnormal bleeding from female genital tract 12/09/2007 06/05/2018 Nausea with vomiting 12/09/2007 06/05/2018 Acute gastritis with hemorrhage 08/20/2007 05/26/2019 Chronic depression 02/07/2006 05/08/2022 Diabetes mellitus 01/23/2006 10/13/2015 Overview: Insulin dependent 2010 Other malaise and fatigue 01/23/20062019 Anemia 06/12/2017 documented as of this encounter (statuses as of 05/14/2022) [facility] History of Past illness Narrative* Problem Noted Date Resolved Date Aspiration pneumonia 04/08/2019 10/26/2020 Overview: [facility] Type 2 diabetes mellitus wit hout complication, with long-term current use of insulin 10/13/2015 10/13/2015 Overview: Insulin dependent 2010 Arthritis of knee 02/24/2013 11/19/2016 Peripheral neuropathy 06/23/2011 05/26/2019 Overview: Right great toe. Radicular vs diabetic. Pressure ulcer 06/23/2011 11/19/2016 Lower back pain 05/04/2011 11/19/2016 Esophagitis 02/01/2010 05/08/2022 Overview: 12/24/[address] Vee: A. stomach antrum: reactive gastropathy, focal granulation tissue, - H. Pylori 07/11/2016 EGD/ colonoscopy normal stomach, duodenum. Entire colon WNL. Path: A. Duodenum, distal WNL; B. stomach antrum Mild chronic inactive gastritis. - H. Pylori Depression 10/06/2009 11/22/2009 Generalized osteoarthrosis, unspecified site 05/26/2019 PAIN JOINT, KNEE 10/01/2008 11/19/2016 PAIN BACK, LOW 12/09/2007 11/19/2016 Unspecified disorder of mens truation and other abnormal bleeding from female genital tract 12/09/2007 06/05/2018 Nausea with vomiting 12/09/2007 06/05/2018 Acute gastritis with hemorrhage 08/20/2007 05/26/2019 Chronic depression 02/07/2006 05/08/2022 Diabetes mellitus 01/23/2006 10/13/2015 Overview: Insulin dependent 2010 Other malaise and fatigue 01/23/20062019 Anemia 06/12/2017 documented as of this encounter (statuses as of 05/22/2022) [facility] History of Past illness Narrative* Problem Noted Date Resolved Date Aspiration pneumonia 04/08/2019 10/26/2020 Overview: [facility] Type 2 diabetes mellitus wit hout complication, with long-term current use of insulin 10/13/2015 10/13/2015 Overview: Insulin dependent 2010 Arthritis of knee 02/24/2013 11/19/2016 Peripheral neuropathy 06/23/2011 05/26/2019 Overview: Right great toe. Radicular vs diabetic. Pressure ulcer 06/23/2011 11/19/2016 Lower back pain 05/04/2011 11/19/2016 Esophagitis 02/01/2010 05/08/2022 Overview: 12/24/[address] Vee: A. stomach antrum: reactive gastropathy, focal granulation tissue, - H. Pylori 07/11/2016 EGD/ colonoscopy normal stomach, duodenum. Entire colon WNL. Path: A. Duodenum, distal WNL; B. stomach antrum Mild chronic inactive gastritis. - H. Pylori Depression 10/06/2009 11/22/2009 Generalized osteoarthrosis, unspecified site 05/26/2019 PAIN JOINT, KNEE 10/01/2008 11/19/2016 PAIN BACK, LOW 12/09/2007 11/19/2016 Unspecified disorder of mens truation and other abnormal bleeding from female genital tract 12/09/2007 06/05/2018 Nausea with vomiting 12/09/2007 06/05/2018 Acute gastritis with hemorrhage 08/20/2007 05/26/2019 Chronic depression 02/07/2006 05/08/2022 Diabetes mellitus 01/23/2006 10/13/2015 Overview: Insulin dependent 2010 Other malaise and fatigue 01/23/20062019 Anemia 06/12/2017 documented as of this encounter (statuses as of 05/24/2022) [facility]01-01-2020 History of Past illness Narrative* Problem Noted Date Resolved Date Aspiration pneumonia 04/08/2019 10/26/2020 Overview: [facility] Type 2 diabetes mellitus wit hout complication, with long-term current use of insulin 10/13/2015 10/13/2015 Overview: Insulin dependent 2010 Arthritis of knee 02/24/2013 11/19/2016 Peripheral neuropathy 06/23/2011 05/26/2019 Overview: Right great toe. Radicular vs diabetic. Pressure ulcer 06/23/2011 11/19/2016 Lower back pain 05/04/2011 11/19/2016 Esophagitis 02/01/2010 05/08/2022 Overview: 12/24/[address] Vee: A. stomach antrum: reactive gastropathy, focal granulation tissue, - H. Pylori 07/11/2016 EGD/ colonoscopy normal stomach, duodenum. Entire colon WNL. Path: A. Duodenum, distal WNL; B. stomach antrum Mild chronic inactive gastritis. - H. Pylori Depression 10/06/2009 11/22/2009 Generalized osteoarthrosis, unspecified site 05/26/2019 PAIN JOINT, KNEE 10/01/2008 11/19/2016 PAIN BACK, LOW 12/09/2007 11/19/2016 Unspecified disorder of mens truation and other abnormal bleeding from female genital tract 12/09/2007 06/05/2018 Nausea with vomiting 12/09/2007 06/05/2018 Acute gastritis with hemorrhage 08/20/2007 05/26/2019 Chronic depression 02/07/2006 05/08/2022 Diabetes mellitus 01/23/2006 10/13/2015 Overview: Insulin dependent 2010 Other malaise and fatigue 01/23/20062019 Anemia 06/12/2017 documented as of this encounter (statuses as of 05/24/2022) [facility]01-01[facility]2020 History of Past illness Narrative* Problem Noted Date Resolved Date Aspiration pneumonia 04/08/2019 10/26/2020 Overview: [facility] Type 2 diabetes mellitus wit hout complication, with long-term current use of insulin 10/13/2015 10/13/2015 Overview: Insulin dependent 2010 Arthritis of knee 02/24/2013 11/19/2016 Peripheral neuropathy 06/23/2011 05/26/2019 Overview: Right great toe. Radicular vs diabetic. Pressure ulcer 06/23/2011 11/19/2016 Lower back pain 05/04/2011 11/19/2016 Esophagitis 02/01/2010 05/08/2022 Overview: 12/24/[address] Vee: A. stomach antrum: reactive gastropathy, focal granulation tissue, - H. Pylori 07/11/2016 EGD/ colonoscopy normal stomach, duodenum. Entire colon WNL. Path: A. Duodenum, distal WNL; B. stomach antrum Mild chronic inactive gastritis. - H. Pylori Depression 10/06/2009 11/22/2009 Generalized osteoarthrosis, unspecified site 05/26/2019 PAIN JOINT, KNEE 10/01/2008 11/19/2016 PAIN BACK, LOW 12/09/2007 11/19/2016 Unspecified disorder of mens truation and other abnormal bleeding from female genital tract 12/09/2007 06/05/2018 Nausea with vomiting 12/09/2007 06/05/2018 Acute gastritis with hemorrhage 08/20/2007 05/26/2019 Chronic depression 02/07/2006 05/08/2022 Diabetes mellitus 01/23/2006 10/13/2015 Overview: Insulin dependent 2010 Other malaise and fatigue 01/23/20062019 Anemia 06/12/2017 documented as of this encounter (statuses as of 05/28/2022) [facility]01-[facility]2020 History of Past illness Narrative* Problem Noted Date Resolved Date Aspiration pneumonia 04/08/2019 10/26/2020 Overview: [facility] Type 2 diabetes mellitus wit hout complication, with long-term current use of insulin 10/13/2015 10/13/2015 Overview: Insulin dependent 2010 Arthritis of knee 02/24/2013 11/19/2016 Peripheral neuropathy 06/23/2011 05/26/2019 Overview: Right great toe. Radicular vs diabetic. Pressure ulcer 06/23/2011 11/19/2016 Lower back pain 05/04/2011 11/19/2016 Esophagitis 02/01/2010 05/08/2022 Overview: 12/24/[address] Vee: A. stomach antrum: reactive gastropathy, focal granulation tissue, - H. Pylori 07/11/2016 EGD/ colonoscopy normal stomach, duodenum. Entire colon WNL. Path: A. Duodenum, distal WNL; B. stomach antrum Mild chronic inactive gastritis. - H. Pylori Depression 10/06/2009 11/22/2009 Generalized osteoarthrosis, unspecified site 05/26/2019 PAIN JOINT, KNEE 10/01/2008 11/19/2016 PAIN BACK, LOW 12/09/2007 11/19/2016 Unspecified disorder of mens truation and other abnormal bleeding from female genital tract 12/09/2007 06/05/2018 Nausea with vomiting 12/09/2007 06/05/2018 Acute gastritis with hemorrhage 08/20/2007 05/26/2019 Chronic depression 02/07/2006 05/08/2022 Diabetes mellitus 01/23/2006 10/13/2015 Overview: Insulin dependent 2010 Other malaise and fatigue 01/23/20062019 Anemia 06/12/2017 documented as of this encounter (statuses as of 06/07/2022) [facility]01-01[facility]2020 History of Past illness Narrative* Problem Noted Date Resolved Date Aspiration pneumonia 04/08/2019 10/26/2020 Overview: [facility] Type 2 diabetes mellitus wit hout complication, with long-term current use of insulin 10/13/2015 10/13/2015 Overview: Insulin dependent 2010 Arthritis of knee 02/24/2013 11/19/2016 Peripheral neuropathy 06/23/2011 05/26/2019 Overview: Right great toe. Radicular vs diabetic. Pressure ulcer 06/23/2011 11/19/2016 Lower back pain 05/04/2011 11/19/2016 Esophagitis 02/01/2010 05/08/2022 Overview: 12/24/[address] Vee: A. stomach antrum: reactive gastropathy, focal granulation tissue, - H. Pylori 07/11/2016 EGD/ colonoscopy normal stomach, duodenum. Entire colon WNL. Path: A. Duodenum, distal WNL; B. stomach antrum Mild chronic inactive gastritis. - H. Pylori Depression 10/06/2009 11/22/2009 Generalized osteoarthrosis, unspecified site 05/26/2019 PAIN JOINT, KNEE 10/01/2008 11/19/2016 PAIN BACK, LOW 12/09/2007 11/19/2016 Unspecified disorder of mens truation and other abnormal bleeding from female genital tract 12/09/2007 06/05/2018 Nausea with vomiting 12/09/2007 06/05/2018 Acute gastritis with hemorrhage 08/20/2007 05/26/2019 Chronic depression 02/07/2006 05/08/2022 Diabetes mellitus 01/23/2006 10/13/2015 Overview: Insulin dependent 2010 Other malaise and fatigue 01/23/20062019 Anemia 06/12/2017 documented as of this encounter (statuses as of 06/19/2022) [facility]01-[facility]2020 History of Past illness Narrative* Problem Noted Date Resolved Date Aspiration pneumonia 04/08/2019 10/26/2020 Overview: [facility] Type 2 diabetes mellitus wit hout complication, with long-term current use of insulin 10/13/2015 10/13/2015 Overview: Insulin dependent 2010 Arthritis of knee 02/24/2013 11/19/2016 Peripheral neuropathy 06/23/2011 05/26/2019 Overview: Right great toe. Radicular vs diabetic. Pressure ulcer 06/23/2011 11/19/2016 Lower back pain 05/04/2011 11/19/2016 Esophagitis 02/01/2010 05/08/2022 Overview: 12/24/[address] Vee: A. stomach antrum: reactive gastropathy, focal granulation tissue, - H. Pylori 07/11/2016 EGD/ colonoscopy normal stomach, duodenum. Entire colon WNL. Path: A. Duodenum, distal WNL; B. stomach antrum Mild chronic inactive gastritis. - H. Pylori Depression 10/06/2009 11/22/2009 Generalized osteoarthrosis, unspecified site 05/26/2019 PAIN JOINT, KNEE 10/01/2008 11/19/2016 PAIN BACK, LOW 12/09/2007 11/19/2016 Unspecified disorder of mens truation and other abnormal bleeding from female genital tract 12/09/2007 06/05/2018 Nausea with vomiting 12/09/2007 06/05/2018 Acute gastritis with hemorrhage 08/20/2007 05/26/2019 Chronic depression 02/07/2006 05/08/2022 Diabetes mellitus 01/23/2006 10/13/2015 Overview: Insulin dependent 2010 Other malaise and fatigue 01/23/20062019 Anemia 06/12/2017 documented as of this encounter (statuses as of 06/21/2022) [facility]01-01[facility]2020 History of Past illness Narrative* Problem Noted Date Resolved Date Aspiration pneumonia 04/08/2019 10/26/2020 Overview: [facility] Type 2 diabetes mellitus wit hout complication, with long-term current use of insulin 10/13/2015 10/13/2015 Overview: Insulin dependent 2010 Arthritis of knee 02/24/2013 11/19/2016 Peripheral neuropathy 06/23/2011 05/26/2019 Overview: Right great toe. Radicular vs diabetic. Pressure ulcer 06/23/2011 11/19/2016 Lower back pain 05/04/2011 11/19/2016 Esophagitis 02/01/2010 05/08/2022 Overview: 12/24/[address] Vee: A. stomach antrum: reactive gastropathy, focal granulation tissue, - H. Pylori 07/11/2016 EGD/ colonoscopy normal stomach, duodenum. Entire colon WNL. Path: A. Duodenum, distal WNL; B. stomach antrum Mild chronic inactive gastritis. - H. Pylori Depression 10/06/2009 11/22/2009 Generalized osteoarthrosis, unspecified site 05/26/2019 PAIN JOINT, KNEE 10/01/2008 11/19/2016 PAIN BACK, LOW 12/09/2007 11/19/2016 Unspecified disorder of mens truation and other abnormal bleeding from female genital tract 12/09/2007 06/05/2018 Nausea with vomiting 12/09/2007 06/05/2018 Acute gastritis with hemorrhage 08/20/2007 05/26/2019 Chronic depression 02/07/2006 05/08/2022 Diabetes mellitus 01/23/2006 10/13/2015 Overview: Insulin dependent 2010 Other malaise and fatigue 01/23/20062019 Anemia 06/12/2017 documented as of this encounter (statuses as of 07/26/2022) [facility]01-[facility]2020 History of Past illness Narrative* Problem Noted Date Resolved Date Aspiration pneumonia 04/08/2019 10/26/2020 Overview: [facility] Type 2 diabetes mellitus wit hout complication, with long-term current use of insulin 10/13/2015 10/13/2015 Overview: Insulin dependent 2010 Arthritis of knee 02/24/2013 11/19/2016 Peripheral neuropathy 06/23/2011 05/26/2019 Overview: Right great toe. Radicular vs diabetic. Pressure ulcer 06/23/2011 11/19/2016 Lower back pain 05/04/2011 11/19/2016 Esophagitis 02/01/2010 05/08/2022 Overview: 12/24/[address] Vee: A. stomach antrum: reactive gastropathy, focal granulation tissue, - H. Pylori 07/11/2016 EGD/ colonoscopy normal stomach, duodenum. Entire colon WNL. Path: A. Duodenum, distal WNL; B. stomach antrum Mild chronic inactive gastritis. - H. Pylori Depression 10/06/2009 11/22/2009 Generalized osteoarthrosis, unspecified site 05/26/2019 PAIN JOINT, KNEE 10/01/2008 11/19/2016 PAIN BACK, LOW 12/09/2007 11/19/2016 Unspecified disorder of mens truation and other abnormal bleeding from female genital tract 12/09/2007 06/05/2018 Nausea with vomiting 12/09/2007 06/05/2018 Acute gastritis with hemorrhage 08/20/2007 05/26/2019 Chronic depression 02/07/2006 05/08/2022 Diabetes mellitus 01/23/2006 10/13/2015 Overview: Insulin dependent 2010 Other malaise and fatigue 01/23/20062019 Anemia 06/12/2017 documented as of this encounter (statuses as of 08/13/2022) [facility]01-01[facility]2020 History of Past illness Narrative* Problem Noted Date Resolved Date Aspiration pneumonia 04/08/2019 10/26/2020 Overview: [facility] Type 2 diabetes mellitus wit hout complication, with long-term current use of insulin 10/13/2015 10/13/2015 Overview: Insulin dependent 2010 Arthritis of knee 02/24/2013 11/19/2016 Peripheral neuropathy 06/23/2011 05/26/2019 Overview: Right great toe. Radicular vs diabetic. Pressure ulcer 06/23/2011 11/19/2016 Lower back pain 05/04/2011 11/19/2016 Esophagitis 02/01/2010 05/08/2022 Overview: 12/24/[address] Vee: A. stomach antrum: reactive gastropathy, focal granulation tissue, - H. Pylori 07/11/2016 EGD/ colonoscopy normal stomach, duodenum. Entire colon WNL. Path: A. Duodenum, distal WNL; B. stomach antrum Mild chronic inactive gastritis. - H. Pylori Depression 10/06/2009 11/22/2009 Generalized osteoarthrosis, unspecified site 05/26/2019 PAIN JOINT, KNEE 10/01/2008 11/19/2016 PAIN BACK, LOW 12/09/2007 11/19/2016 Unspecified disorder of mens truation and other abnormal bleeding from female genital tract 12/09/2007 06/05/2018 Nausea with vomiting 12/09/2007 06/05/2018 Acute gastritis with hemorrhage 08/20/2007 05/26/2019 Chronic depression 02/07/2006 05/08/2022 Diabetes mellitus 01/23/2006 10/13/2015 Overview: Insulin dependent 2010 Other malaise and fatigue 01/23/20062019 Anemia 06/12/2017 documented as of this encounter (statuses as of 08/21/2022) [facility]01[facility]2020 History of Past illness Narrative* Problem Noted Date Resolved Date Aspiration pneumonia 04/08/2019 10/26/2020 Overview: [facility] Type 2 diabetes mellitus wit hout complication, with long-term current use of insulin 10/13/2015 10/13/2015 Overview: Insulin dependent 2010 Arthritis of knee 02/24/2013 11/19/2016 Peripheral neuropathy 06/23/2011 05/26/2019 Overview: Right great toe. Radicular vs diabetic. Pressure ulcer 06/23/2011 11/19/2016 Lower back pain 05/04/2011 11/19/2016 Esophagitis 02/01/2010 05/08/2022 Overview: 12/24/[address] Vee: A. stomach antrum: reactive gastropathy, focal granulation tissue, - H. Pylori 07/11/2016 EGD/ colonoscopy normal stomach, duodenum. Entire colon WNL. Path: A. Duodenum, distal WNL; B. stomach antrum Mild chronic inactive gastritis. - H. Pylori Depression 10/06/2009 11/22/2009 Generalized osteoarthrosis, unspecified site 05/26/2019 PAIN JOINT, KNEE 10/01/2008 11/19/2016 PAIN BACK, LOW 12/09/2007 11/19/2016 Unspecified disorder of mens truation and other abnormal bleeding from female genital tract 12/09/2007 06/05/2018 Nausea with vomiting 12/09/2007 06/05/2018 Acute gastritis with hemorrhage 08/20/2007 05/26/2019 Chronic depression 02/07/2006 05/08/2022 Diabetes mellitus 01/23/2006 10/13/2015 Overview: Insulin dependent 2010 Other malaise and fatigue 01/23/20062019 Anemia 06/12/2017 documented as of this encounter (statuses as of 09/11/2022) [facility]01[facility]2020 History of Past illness Narrative* Problem Noted Date Resolved Date Aspiration pneumonia 04/08/2019 10/26/2020 Overview: [facility] Type 2 diabetes mellitus wit hout complication, with long-term current use of insulin 10/13/2015 10/13/2015 Overview: Insulin dependent 2010 Arthritis of knee 02/24/2013 11/19/2016 Peripheral neuropathy 06/23/2011 05/26/2019 Overview: Right great toe. Radicular vs diabetic. Pressure ulcer 06/23/2011 11/19/2016 Lower back pain 05/04/2011 11/19/2016 Esophagitis 02/01/2010 05/08/2022 Overview: 12/24/[address] Vee: A. stomach antrum: reactive gastropathy, focal granulation tissue, - H. Pylori 07/11/2016 EGD/ colonoscopy normal stomach, duodenum. Entire colon WNL. Path: A. Duodenum, distal WNL; B. stomach antrum Mild chronic inactive gastritis. - H. Pylori Depression 10/06/2009 11/22/2009 Generalized osteoarthrosis, unspecified site 05/26/2019 PAIN JOINT, KNEE 10/01/2008 11/19/2016 PAIN BACK, LOW 12/09/2007 11/19/2016 Unspecified disorder of mens truation and other abnormal bleeding from female genital tract 12/09/2007 06/05/2018 Nausea with vomiting 12/09/2007 06/05/2018 Acute gastritis with hemorrhage 08/20/2007 05/26/2019 Chronic depression 02/07/2006 05/08/2022 Diabetes mellitus 01/23/2006 10/13/2015 Overview: Insulin dependent 2010 Other malaise and fatigue 01/23/20062019 Anemia 06/12/2017 documented as of this encounter (statuses as of 09/21/2022) [facility]01[facility]2020 History of Past illness Narrative* Problem Noted Date Resolved Date Aspiration pneumonia 04/08/2019 10/26/2020 Overview: [facility] Type 2 diabetes mellitus wit hout complication, with long-term current use of insulin 10/13/2015 10/13/2015 Overview: Insulin dependent 2010 Arthritis of knee 02/24/2013 11/19/2016 Peripheral neuropathy 06/23/2011 05/26/2019 Overview: Right great toe. Radicular vs diabetic. Pressure ulcer 06/23/2011 11/19/2016 Lower back pain 05/04/2011 11/19/2016 Esophagitis 02/01/2010 05/08/2022 Overview: 12/24/[address] Vee: A. stomach antrum: reactive gastropathy, focal granulation tissue, - H. Pylori 07/11/2016 EGD/ colonoscopy normal stomach, duodenum. Entire colon WNL. Path: A. Duodenum, distal WNL; B. stomach antrum Mild chronic inactive gastritis. - H. Pylori Depression 10/06/2009 11/22/2009 Generalized osteoarthrosis, unspecified site 05/26/2019 PAIN JOINT, KNEE 10/01/2008 11/19/2016 PAIN BACK, LOW 12/09/2007 11/19/2016 Unspecified disorder of mens truation and other abnormal bleeding from female genital tract 12/09/2007 06/05/2018 Nausea with vomiting 12/09/2007 06/05/2018 Acute gastritis with hemorrhage 08/20/2007 05/26/2019 Chronic depression 02/07/2006 05/08/2022 Diabetes mellitus 01/23/2006 10/13/2015 Overview: Insulin dependent 2010 Other malaise and fatigue 01/23/20062019 Anemia 06/12/2017 documented as of this encounter (statuses as of 10/08/2022) [facility]2020 History of Past illness Narrative* Problem Noted Date Diagnosed Date Resolved Date Aspiration pneumonia 04/08/2019 021 Overview: [facility] Type 2 diabetes mellitus wit hout complication, with long-term current use of insulin 10/13/2015 10/13/2015 Overview: Insulin dependent 2010 Arthritis of knee 02/24/2013 11/19/2016 Peripheral neuropathy 06/23/20112019 Overview: Right great toe. Radicular vs diabetic. Pressure ulcer 06/23/2011 11/19/2016 Lower back pain 05/04/2011 11/19/2016 Esophagitis 02/01/2010 05/08/2022 Overview: 12/24/[address] Vee: A. stomach antrum: reactive gastropathy, focal granulation tissue, - H. Pylori 07/11/2016 EGD/ colonoscopy normal stomach, duodenum. Entire colon WNL. Path: A. Duodenum, distal WNL; B. stomach antrum Mild chronic inactive gastritis. - H. Pylori Depression 10/06/2009 11/22/2009 Generalized osteoarthrosis, unspecified site 9 05/26/2019 PAIN JOINT, KNEE 10/01/2008 11/19/2016 PAIN BACK, LOW 12/09/2007 11/19/2016 Unspecified disorder of mens truation and other abnormal bleeding from female genital tract 12/09/2007 06/05/2018 Nausea with vomiting 12/09/2007 019 Acute gastritis with hemorrhage 08/20/2007 05/26/2019 Chronic depression 02/07/2006 3 Diabetes mellitus 01/23/2006 10/13/2015 Overview: Insulin dependent 2010 Other malaise and fatigue 01/23/2006 Anemia 06/12/2017 documented as of this encounter (statuses as of 10/25/2022) [facility]2020 History of Past illness Narrative* Problem Noted Date Diagnosed Date Resolved Date Aspiration pneumonia 04/08/2019 021 Overview: [facility] Type 2 diabetes mellitus wit hout complication, with long-term current use of insulin 10/13/2015 10/13/2015 Overview: Insulin dependent 2010 Arthritis of knee 02/24/2013 11/19/2016 Peripheral neuropathy 06/23/20112019 Overview: Right great toe. Radicular vs diabetic. Pressure ulcer 06/23/2011 11/19/2016 Lower back pain 05/04/2011 11/19/2016 Esophagitis 02/01/2010 05/08/2022 Overview: 12/24/[address] Vee: A. stomach antrum: reactive gastropathy, focal granulation tissue, - H. Pylori 07/11/2016 EGD/ colonoscopy normal stomach, duodenum. Entire colon WNL. Path: A. Duodenum, distal WNL; B. stomach antrum Mild chronic inactive gastritis. - H. Pylori Depression 10/06/2009 11/22/2009 Generalized osteoarthrosis, unspecified site 9 05/26/2019 PAIN JOINT, KNEE 10/01/2008 11/19/2016 PAIN BACK, LOW 12/09/2007 11/19/2016 Unspecified disorder of mens truation and other abnormal bleeding from female genital tract 12/09/2007 06/05/2018 Nausea with vomiting 12/09/2007 019 Acute gastritis with hemorrhage 08/20/2007 05/26/2019 Chronic depression 02/07/2006 3 Diabetes mellitus 01/23/2006 10/13/2015 Overview: Insulin dependent 2010 Other malaise and fatigue 01/23/2006 Anemia 06/12/2017 documented as of this encounter (statuses as of 10/25/2022) [facility] History of Past illness Narrative* Problem Noted Date Diagnosed Date Resolved Date Aspiration pneumonia 04/08/2019 021 Overview: [facility] Type 2 diabetes mellitus wit hout complication, with long-term current use of insulin 10/13/2015 10/13/2015 Overview: Insulin dependent 2010 Arthritis of knee 02/24/2013 11/19/2016 Peripheral neuropathy 06/23/20112019 Overview: Right great toe. Radicular vs diabetic. Pressure ulcer 06/23/2011 11/19/2016 Lower back pain 05/04/2011 11/19/2016 Esophagitis 02/01/2010 05/08/2022 Overview: 12/24/[address] Vee: A. stomach antrum: reactive gastropathy, focal granulation tissue, - H. Pylori 07/11/2016 EGD/ colonoscopy normal stomach, duodenum. Entire colon WNL. Path: A. Duodenum, distal WNL; B. stomach antrum Mild chronic inactive gastritis. - H. Pylori Depression 10/06/2009 11/22/2009 Generalized osteoarthrosis, unspecified site 9 05/26/2019 PAIN JOINT, KNEE 10/01/2008 11/19/2016 PAIN BACK, LOW 12/09/2007 11/19/2016 Unspecified disorder of mens truation and other abnormal bleeding from female genital tract 12/09/2007 06/05/2018 Nausea with vomiting 12/09/2007 019 Acute gastritis with hemorrhage 08/20/2007 05/26/2019 Chronic depression 02/07/2006 3 Diabetes mellitus 01/23/2006 10/13/2015 Overview: Insulin dependent 2010 Other malaise and fatigue 01/23/2006 Anemia 06/12/2017 documented as of this encounter (statuses as of 10/29/2022) [facility] History of Past illness Narrative* Problem Noted Date Diagnosed Date Resolved Date Aspiration pneumonia 04/08/2019 021 Overview: [facility] Type 2 diabetes mellitus wit hout complication, with long-term current use of insulin 10/13/2015 10/13/2015 Overview: Insulin dependent 2010 Arthritis of knee 02/24/2013 11/19/2016 Peripheral neuropathy 06/23/20112019 Overview: Right great toe. Radicular vs diabetic. Pressure ulcer 06/23/2011 11/19/2016 Lower back pain 05/04/2011 11/19/2016 Esophagitis 02/01/2010 05/08/2022 Overview: 12/24/[address] Vee: A. stomach antrum: reactive gastropathy, focal granulation tissue, - H. Pylori 07/11/2016 EGD/ colonoscopy normal stomach, duodenum. Entire colon WNL. Path: A. Duodenum, distal WNL; B. stomach antrum Mild chronic inactive gastritis. - H. Pylori Depression 10/06/2009 11/22/2009 Generalized osteoarthrosis, unspecified site 9 05/26/2019 PAIN JOINT, KNEE 10/01/2008 11/19/2016 PAIN BACK, LOW 12/09/2007 11/19/2016 Unspecified disorder of mens truation and other abnormal bleeding from female genital tract 12/09/2007 06/05/2018 Nausea with vomiting 12/09/2007 019 Acute gastritis with hemorrhage 08/20/2007 05/26/2019 Chronic depression 02/07/2006 3 Diabetes mellitus 01/23/2006 10/13/2015 Overview: Insulin dependent 2010 Other malaise and fatigue 01/23/2006 Anemia 06/12/2017 documented as of this encounter (statuses as of 11/02/2022) [facility] History of Past illness Narrative* Problem Noted Date Diagnosed Date Resolved Date Aspiration pneumonia 04/08/2019 021 Overview: [facility] Type 2 diabetes mellitus wit hout complication, with long-term current use of insulin 10/13/2015 10/13/2015 Overview: Insulin dependent 2010 Arthritis of knee 02/24/2013 11/19/2016 Peripheral neuropathy 06/23/20112019 Overview: Right great toe. Radicular vs diabetic. Pressure ulcer 06/23/2011 11/19/2016 Lower back pain 05/04/2011 11/19/2016 Esophagitis 02/01/2010 05/08/2022 Overview: 12/24/[address] Vee: A. stomach antrum: reactive gastropathy, focal granulation tissue, - H. Pylori 07/11/2016 EGD/ colonoscopy normal stomach, duodenum. Entire colon WNL. Path: A. Duodenum, distal WNL; B. stomach antrum Mild chronic inactive gastritis. - H. Pylori Depression 10/06/2009 11/22/2009 Generalized osteoarthrosis, unspecified site 9 05/26/2019 PAIN JOINT, KNEE 10/01/2008 11/19/2016 PAIN BACK, LOW 12/09/2007 11/19/2016 Unspecified disorder of mens truation and other abnormal bleeding from female genital tract 12/09/2007 06/05/2018 Nausea with vomiting 12/09/2007 019 Acute gastritis with hemorrhage 08/20/2007 05/26/2019 Chronic depression 02/07/2006 3 Diabetes mellitus 01/23/2006 10/13/2015 Overview: Insulin dependent 2010 Other malaise and fatigue 01/23/2006 Anemia 06/12/2017 documented as of this encounter (statuses as of 11/07/2022) [facility] History of Past illness Narrative* Problem Noted Date Diagnosed Date Resolved Date Aspiration pneumonia 04/08/2019 021 Overview: [facility] Type 2 diabetes mellitus wit hout complication, with long-term current use of insulin 10/13/2015 10/13/2015 Overview: Insulin dependent 2010 Arthritis of knee 02/24/2013 11/19/2016 Peripheral neuropathy 06/23/20112019 Overview: Right great toe. Radicular vs diabetic. Pressure ulcer 06/23/2011 11/19/2016 Lower back pain 05/04/2011 11/19/2016 Esophagitis 02/01/2010 05/08/2022 Overview: 12/24/[address] Vee: A. stomach antrum: reactive gastropathy, focal granulation tissue, - H. Pylori 07/11/2016 EGD/ colonoscopy normal stomach, duodenum. Entire colon WNL. Path: A. Duodenum, distal WNL; B. stomach antrum Mild chronic inactive gastritis. - H. Pylori Depression 10/06/2009 11/22/2009 Generalized osteoarthrosis, unspecified site 9 05/26/2019 PAIN JOINT, KNEE 10/01/2008 11/19/2016 PAIN BACK, LOW 12/09/2007 11/19/2016 Unspecified disorder of mens truation and other abnormal bleeding from female genital tract 12/09/2007 06/05/2018 Nausea with vomiting 12/09/2007 019 Acute gastritis with hemorrhage 08/20/2007 05/26/2019 Chronic depression 02/07/2006 3 Diabetes mellitus 01/23/2006 10/13/2015 Overview: Insulin dependent 2010 Other malaise and fatigue 01/23/2006 Anemia 06/12/2017 documented as of this encounter (statuses as of 11/12/2022) [facility]01-01-2020 History of Past illness Narrative* Problem Noted Date Diagnosed Date Resolved Date Aspiration pneumonia 04/08/2019 021 Overview: [facility] Type 2 diabetes mellitus wit hout complication, with long-term current use of insulin 10/13/2015 10/13/2015 Overview: Insulin dependent 2010 Arthritis of knee 02/24/2013 11/19/2016 Peripheral neuropathy 06/23/20112019 Overview: Right great toe. Radicular vs diabetic. Pressure ulcer 06/23/2011 11/19/2016 Lower back pain 05/04/2011 11/19/2016 Esophagitis 02/01/2010 05/08/2022 Overview: 12/24/[address] Vee: A. stomach antrum: reactive gastropathy, focal granulation tissue, - H. Pylori 07/11/2016 EGD/ colonoscopy normal stomach, duodenum. Entire colon WNL. Path: A. Duodenum, distal WNL; B. stomach antrum Mild chronic inactive gastritis. - H. Pylori Depression 10/06/2009 11/22/2009 Generalized osteoarthrosis, unspecified site 9 05/26/2019 PAIN JOINT, KNEE 10/01/2008 11/19/2016 PAIN BACK, LOW 12/09/2007 11/19/2016 Unspecified disorder of mens truation and other abnormal bleeding from female genital tract 12/09/2007 06/05/2018 Nausea with vomiting 12/09/2007 019 Acute gastritis with hemorrhage 08/20/2007 05/26/2019 Chronic depression 02/07/2006 3 Diabetes mellitus 01/23/2006 10/13/2015 Overview: Insulin dependent 2010 Other malaise and fatigue 01/23/2006 Anemia 06/12/2017 documented as of this encounter (statuses as of 11/14/2022) [facility] History of Past illness Narrative* Problem Noted Date Diagnosed Date Resolved Date Aspiration pneumonia 04/08/2019 021 Overview: [facility] Type 2 diabetes mellitus wit hout complication, with long-term current use of insulin 10/13/2015 10/13/2015 Overview: Insulin dependent 2010 Arthritis of knee 02/24/2013 11/19/2016 Peripheral neuropathy 06/23/20112019 Overview: Right great toe. Radicular vs diabetic. Pressure ulcer 06/23/2011 11/19/2016 Lower back pain 05/04/2011 11/19/2016 Esophagitis 02/01/2010 05/08/2022 Overview: 12/24/[address] Vee: A. stomach antrum: reactive gastropathy, focal granulation tissue, - H. Pylori 07/11/2016 EGD/ colonoscopy normal stomach, duodenum. Entire colon WNL. Path: A. Duodenum, distal WNL; B. stomach antrum Mild chronic inactive gastritis. - H. Pylori Depression 10/06/2009 11/22/2009 Generalized osteoarthrosis, unspecified site 9 05/26/2019 PAIN JOINT, KNEE 10/01/2008 11/19/2016 PAIN BACK, LOW 12/09/2007 11/19/2016 Unspecified disorder of mens truation and other abnormal bleeding from female genital tract 12/09/2007 06/05/2018 Nausea with vomiting 12/09/2007 019 Acute gastritis with hemorrhage 08/20/2007 05/26/2019 Chronic depression 02/07/2006 3 Diabetes mellitus 01/23/2006 10/13/2015 Overview: Insulin dependent 2010 Other malaise and fatigue 01/23/2006 Anemia 06/12/2017 documented as of this encounter (statuses as of 11/19/2022) [facility] History of Past illness Narrative* Problem Noted Date Diagnosed Date Resolved Date Aspiration pneumonia 04/08/2019 021 Overview: [facility] Type 2 diabetes mellitus wit hout complication, with long-term current use of insulin 10/13/2015 10/13/2015 Overview: Insulin dependent 2010 Arthritis of knee 02/24/2013 11/19/2016 Peripheral neuropathy 06/23/20112019 Overview: Right great toe. Radicular vs diabetic. Pressure ulcer 06/23/2011 11/19/2016 Lower back pain 05/04/2011 11/19/2016 Esophagitis 02/01/2010 05/08/2022 Overview: 12/24/[address] Vee: A. stomach antrum: reactive gastropathy, focal granulation tissue, - H. Pylori 07/11/2016 EGD/ colonoscopy normal stomach, duodenum. Entire colon WNL. Path: A. Duodenum, distal WNL; B. stomach antrum Mild chronic inactive gastritis. - H. Pylori Depression 10/06/2009 11/22/2009 Generalized osteoarthrosis, unspecified site 9 05/26/2019 PAIN JOINT, KNEE 10/01/2008 11/19/2016 PAIN BACK, LOW 12/09/2007 11/19/2016 Unspecified disorder of mens truation and other abnormal bleeding from female genital tract 12/09/2007 06/05/2018 Nausea with vomiting 12/09/2007 019 Acute gastritis with hemorrhage 08/20/2007 05/26/2019 Chronic depression 02/07/2006 3 Diabetes mellitus 01/23/2006 10/13/2015 Overview: Insulin dependent 2010 Other malaise and fatigue 01/23/2006 Anemia 06/12/2017 documented as of this encounter (statuses as of 12/05/2022) [facility] History of Past illness Narrative* Problem Noted Date Diagnosed Date Resolved Date Aspiration pneumonia 04/08/2019 021 Overview: [facility] Type 2 diabetes mellitus wit hout complication, with long-term current use of insulin 10/13/2015 10/13/2015 Overview: Insulin dependent 2010 Arthritis of knee 02/24/2013 11/19/2016 Peripheral neuropathy 06/23/20112019 Overview: Right great toe. Radicular vs diabetic. Pressure ulcer 06/23/2011 11/19/2016 Lower back pain 05/04/2011 11/19/2016 Esophagitis 02/01/2010 05/08/2022 Overview: 12/24/[address] Vee: A. stomach antrum: reactive gastropathy, focal granulation tissue, - H. Pylori 07/11/2016 EGD/ colonoscopy normal stomach, duodenum. Entire colon WNL. Path: A. Duodenum, distal WNL; B. stomach antrum Mild chronic inactive gastritis. - H. Pylori Depression 10/06/2009 11/22/2009 Generalized osteoarthrosis, unspecified site 9 05/26/2019 PAIN JOINT, KNEE 10/01/2008 11/19/2016 PAIN BACK, LOW 12/09/2007 11/19/2016 Unspecified disorder of mens truation and other abnormal bleeding from female genital tract 12/09/2007 06/05/2018 Nausea with vomiting 12/09/2007 019 Acute gastritis with hemorrhage 08/20/2007 05/26/2019 Chronic depression 02/07/2006 3 Diabetes mellitus 01/23/2006 10/13/2015 Overview: Insulin dependent 2010 Other malaise and fatigue 01/23/2006 Anemia 06/12/2017 documented as of this encounter (statuses as of 12/12/2022) [facility] History of Past illness Narrative* Problem Noted Date Diagnosed Date Resolved Date Aspiration pneumonia 04/08/2019 021 Overview: [facility] Type 2 diabetes mellitus wit hout complication, with long-term current use of insulin 10/13/2015 10/13/2015 Overview: Insulin dependent 2010 Arthritis of knee 02/24/2013 11/19/2016 Peripheral neuropathy 06/23/20112019 Overview: Right great toe. Radicular vs diabetic. Pressure ulcer 06/23/2011 11/19/2016 Lower back pain 05/04/2011 11/19/2016 Esophagitis 02/01/2010 05/08/2022 Overview: 12/24/[address] Vee: A. stomach antrum: reactive gastropathy, focal granulation tissue, - H. Pylori 07/11/2016 EGD/ colonoscopy normal stomach, duodenum. Entire colon WNL. Path: A. Duodenum, distal WNL; B. stomach antrum Mild chronic inactive gastritis. - H. Pylori Depression 10/06/2009 11/22/2009 Generalized osteoarthrosis, unspecified site 9 05/26/2019 PAIN JOINT, KNEE 10/01/2008 11/19/2016 PAIN BACK, LOW 12/09/2007 11/19/2016 Unspecified disorder of mens truation and other abnormal bleeding from female genital tract 12/09/2007 06/05/2018 Nausea with vomiting 12/09/2007 019 Acute gastritis with hemorrhage 08/20/2007 05/26/2019 Chronic depression 02/07/2006 3 Diabetes mellitus 01/23/2006 10/13/2015 Overview: Insulin dependent 2010 Other malaise and fatigue 01/23/2006 Anemia 06/12/2017 documented as of this encounter (statuses as of 12/12/2022) [facility] History of Past illness Narrative* Problem Noted Date Diagnosed Date Resolved Date Aspiration pneumonia 04/08/2019 07/21/2 021 Overview: [facility] Type 2 diabetes mellitus wit hout complication, with long-term current use of insulin 10/13/2015 10/13/2015 Overview: Insulin dependent 2010 Arthritis of knee 02/24/2013 11/19/2016 Peripheral neuropathy 06/23/20112019 Overview: Right great toe. Radicular vs diabetic. Pressure ulcer 06/23/2011 11/19/2016 Lower back pain 05/04/2011 11/19/2016 Esophagitis 02/01/2010 05/08/2022 Overview: 12/24/[address] Vee: A. stomach antrum: reactive gastropathy, focal granulation tissue, - H. Pylori 07/11/2016 EGD/ colonoscopy normal stomach, duodenum. Entire colon WNL. Path: A. Duodenum, distal WNL; B. stomach antrum Mild chronic inactive gastritis. - H. Pylori Depression 10/06/2009 11/22/2009 Generalized osteoarthrosis, unspecified site 9 05/26/2019 PAIN JOINT, KNEE 10/01/2008 11/19/2016 PAIN BACK, LOW 12/09/2007 11/19/2016 Unspecified disorder of mens truation and other abnormal bleeding from female genital tract 12/09/2007 06/05/2018 Nausea with vomiting 12/09/2007 019 Acute gastritis with hemorrhage 08/20/2007 05/26/2019 Chronic depression 02/07/2006 3 Diabetes mellitus 01/23/2006 10/13/2015 Overview: Insulin dependent 2010 Other malaise and fatigue 01/23/2006 Anemia 06/12/2017 documented as of this encounter (statuses as of 02/01/2023) [facility] History of Past illness Narrative* Problem Noted Date Diagnosed Date Resolved Date Aspiration pneumonia 04/08/2019 021 Overview: [facility] Type 2 diabetes mellitus wit hout complication, with long-term current use of insulin 10/13/2015 10/13/2015 Overview: Insulin dependent 2010 Arthritis of knee 02/24/2013 11/19/2016 Peripheral neuropathy 06/23/20112019 Overview: Right great toe. Radicular vs diabetic. Pressure ulcer 06/23/2011 11/19/2016 Lower back pain 05/04/2011 11/19/2016 Esophagitis 02/01/2010 05/08/2022 Overview: 12/24/[address] Vee: A. stomach antrum: reactive gastropathy, focal granulation tissue, - H. Pylori 07/11/2016 EGD/ colonoscopy normal stomach, duodenum. Entire colon WNL. Path: A. Duodenum, distal WNL; B. stomach antrum Mild chronic inactive gastritis. - H. Pylori Depression 10/06/2009 11/22/2009 Generalized osteoarthrosis, unspecified site 9 05/26/2019 PAIN JOINT, KNEE 10/01/2008 11/19/2016 PAIN BACK, LOW 12/09/2007 11/19/2016 Unspecified disorder of mens truation and other abnormal bleeding from female genital tract 12/09/2007 06/05/2018 Nausea with vomiting 12/09/2007 019 Acute gastritis with hemorrhage 08/20/2007 05/26/2019 Chronic depression 02/07/2006 3 Diabetes mellitus 01/23/2006 10/13/2015 Overview: Insulin dependent 2010 Other malaise and fatigue 01/23/2006 Anemia 06/12/2017 documented as of this encounter (statuses as of 02/01/2023) [facility] History of Past illness Narrative* Problem Noted Date Diagnosed Date Resolved Date Aspiration pneumonia 04/08/2019 021 Overview: [facility] Type 2 diabetes mellitus wit hout complication, with long-term current use of insulin 10/13/2015 10/13/2015 Overview: Insulin dependent 2010 Arthritis of knee 02/24/2013 11/19/2016 Peripheral neuropathy 06/23/20112019 Overview: Right great toe. Radicular vs diabetic. Pressure ulcer 06/23/2011 11/19/2016 Lower back pain 05/04/2011 11/19/2016 Esophagitis 02/01/2010 05/08/2022 Overview: 12/24/[address] Vee: A. stomach antrum: reactive gastropathy, focal granulation tissue, - H. Pylori 07/11/2016 EGD/ colonoscopy normal stomach, duodenum. Entire colon WNL. Path: A. Duodenum, distal WNL; B. stomach antrum Mild chronic inactive gastritis. - H. Pylori Depression 10/06/2009 11/22/2009 Generalized osteoarthrosis, unspecified site 9 05/26/2019 PAIN JOINT, KNEE 10/01/2008 11/19/2016 PAIN BACK, LOW 12/09/2007 11/19/2016 Unspecified disorder of mens truation and other abnormal bleeding from female genital tract 12/09/2007 06/05/2018 Nausea with vomiting 12/09/2007 019 Acute gastritis with hemorrhage 08/20/2007 05/26/2019 Chronic depression 02/07/2006 3 Diabetes mellitus 01/23/2006 10/13/2015 Overview: Insulin dependent 2010 Other malaise and fatigue 01/23/2006 Anemia 06/12/2017 documented as of this encounter (statuses as of 02/18/2023) [facility] History of Past illness Narrative* Problem Noted Date Diagnosed Date Resolved Date Aspiration pneumonia 04/08/2019 021 Overview: [facility] Type 2 diabetes mellitus wit hout complication, with long-term current use of insulin 10/13/2015 10/13/2015 Overview: Insulin dependent 2010 Arthritis of knee 02/24/2013 11/19/2016 Peripheral neuropathy 06/23/20112019 Overview: Right great toe. Radicular vs diabetic. Pressure ulcer 06/23/2011 11/19/2016 Lower back pain 05/04/2011 11/19/2016 Esophagitis 02/01/2010 05/08/2022 Overview: 12/24/[address] Vee: A. stomach antrum: reactive gastropathy, focal granulation tissue, - H. Pylori 07/11/2016 EGD/ colonoscopy normal stomach, duodenum. Entire colon WNL. Path: A. Duodenum, distal WNL; B. stomach antrum Mild chronic inactive gastritis. - H. Pylori Depression 10/06/2009 11/22/2009 Generalized osteoarthrosis, unspecified site 9 05/26/2019 PAIN JOINT, KNEE 10/01/2008 11/19/2016 PAIN BACK, LOW 12/09/2007 11/19/2016 Unspecified disorder of mens truation and other abnormal bleeding from female genital tract 12/09/2007 06/05/2018 Nausea with vomiting 12/09/2007 019 Acute gastritis with hemorrhage 08/20/2007 05/26/2019 Chronic depression 02/07/2006 3 Diabetes mellitus 01/23/2006 10/13/2015 Overview: Insulin dependent 2010 Other malaise and fatigue 01/23/2006 Anemia 06/12/2017 documented as of this encounter (statuses as of 03/09/2023) [facility] History of Past illness Narrative* Problem Noted Date Diagnosed Date Resolved Date Aspiration pneumonia 04/08/2019 021 Overview: [facility] Type 2 diabetes mellitus wit hout complication, with long-term current use of insulin 10/13/2015 10/13/2015 Overview: Insulin dependent 2010 Arthritis of knee 02/24/2013 11/19/2016 Peripheral neuropathy 06/23/20112019 Overview: Right great toe. Radicular vs diabetic. Pressure ulcer 06/23/2011 11/19/2016 Lower back pain 05/04/2011 11/19/2016 Esophagitis 02/01/2010 05/08/2022 Overview: 12/24/[address] Vee: A. stomach antrum: reactive gastropathy, focal granulation tissue, - H. Pylori 07/11/2016 EGD/ colonoscopy normal stomach, duodenum. Entire colon WNL. Path: A. Duodenum, distal WNL; B. stomach antrum Mild chronic inactive gastritis. - H. Pylori Depression 10/06/2009 11/22/2009 Generalized osteoarthrosis, unspecified site 9 05/26/2019 PAIN JOINT, KNEE 10/01/2008 11/19/2016 PAIN BACK, LOW 12/09/2007 11/19/2016 Unspecified disorder of mens truation and other abnormal bleeding from female genital tract 12/09/2007 06/05/2018 Nausea with vomiting 12/09/2007 019 Acute gastritis with hemorrhage 08/20/2007 05/26/2019 Chronic depression 02/07/2006 3 Diabetes mellitus 01/23/2006 10/13/2015 Overview: Insulin dependent 2011 Other malaise and fatigue 01/23/2006 Anemia 06/12/2017 documented as of this encounter (statuses as of 03/20/2023) [facility] Diagnosis Type 2 diabetes mellitus with diabetic neuropathy, with long-term current use of insulin ([facility]) Mixed hyperlipidemia [facility] this [facility]* Diagnosis Type 2 diabetes mellitus with diabetic neuropathy, with long-term current use of insulin ([facility])- Primary Iron deficiency anemia, unspecified iron deficiency anemia type Systemic lupus erythematosus, unspecified SLE type, unspecified organ involvement status ([facility]) Encounter for long-term (current) use of medications Encounter for long-term (current) use of other medications Type 2 diabetes mellitus with diabetic neuropathy, with long-term current use of insulin ([facility]) [facility]* Diagnosis Other iron deficiency anemia- Primary Anemia, unspecified type [facility] Diagnosis Type 2 diabetes mellitus with diabetic neuropathy, with long-term current use of insulin ([facility])- Primary Mixed hyperlipidemia Renal insufficiency Unspecified disorder of kidney and ureter Fatigue, unspecified type Chronic depression Depressive disorder, not elsewhere classified Lupus (HCC) Systemic lupus erythematosus REINALDO (obstructive sleep apnea) Obstructive sleep apnea (adult) (pediatric) Fibromyalgia Mylagia and myositis, unspecified Esophagitis Esophagitis, unspecified Malabsorption of iron Other specified intestinal malabsorption DDD (degenerative disc disease), lumbar Degeneration of lumbar or lumbosacral intervertebral disc Anemia, unspecified type Diastolic dysfunction, left ventricle Heart disease, unspecified Chronic renal insufficiency, stage 3 (moderate) (HCC) Major depressive disorder, recurrent severe without psychotic features (HCC) Major depressive disorder, recurrent episode, severe, without mention of psychotic behavior Panic disorder with agoraphobia Agoraphobia with panic disorder [facility] Diagnosis Vitamin D deficiency Unspecified vitamin D deficiency [facility] Diagnosis Other iron deficiency anemia- Primary [facility] Diagnosis Other iron deficiency anemia- Primary [facility] Diagnosis Other iron deficiency anemia- Primary [facility]* Diagnosis Major depressive disorder, recurrent episode, moderate (HCC)- Primary Major depressive disorder, recurrent episode, moderate Panic disorder with agoraphobia Agoraphobia with panic disorder Tremors of nervous system Abnormal involuntary movements Chronic post-traumatic stress disorder (PTSD) [facility] Other iron deficiency anemia- Primary [facility] Fall, subsequent encounter- Primary Type 2 diabetes mellitus with diabetic neuropathy, with long-term current use of insulin ([facility]) Bradycardia Other specified cardiac dysrhythmias [facility] Diagnosis Diastolic dysfunction, left ventricle- Primary Heart disease, unspecified Acute on chronic diastolic congestive heart failure (HCC) Acute on chronic diastolic heart failure Bradycardia Other specified cardiac dysrhythmias REINALDO (obstructive sleep apnea) Obstructive sleep apnea (adult) (pediatric) Mixed hyperlipidemia Chronic renal insufficiency, stage 3 (moderate) ([facility]) Type 2 diabetes mellitus with diabetic neuropathy, with long-term current use of insulin (HCC) Lupus (HCC) Systemic lupus erythematosus Fibromyalgia Mylagia and myositis, unspecified 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, recurrent severe without psychotic features (HCC) Major depressive disorder, recurrent episode, severe, without mention of psychotic behavior Chronic post-traumatic stress disorder (PTSD) Esophagitis Esophagitis, unspecified Current use of proton pump inhibitor Encounter for long-term (current) use of other medications [facility] Diagnosis Chronic renal insufficiency, stage 3 (moderate) (HCC)- Primary [facility]* Diagnosis Type 2 diabetes mellitus with diabetic neuropathy, with long-term current use of insulin (HCC)- Primary [facility]* Diagnosis GERD without esophagitis Esophageal reflux [facility] this [facility]* Diagnosis Major depressive disorder, recurrent episode, moderate (HCC)- Primary Major depressive disorder, recurrent episode, moderate Panic disorder with agoraphobia Agoraphobia with panic disorder Tremors of nervous system Abnormal involuntary movements Chronic post-traumatic stress disorder (PTSD) Medical marijuana use Encounter for long-term (current) use of other medications [facility] this encounter [facility] Diagnosis Other iron deficiency anemia- Primary [facility]* Diagnosis Panic disorder with agoraphobia- Primary Agoraphobia with panic disorder Major depressive disorder, recurrent episode, moderate (HCC) Major depressive disorder, recurrent episode, moderate Tremors of nervous system Abnormal involuntary movements Medical marijuana use Encounter for long-term (current) use of other medications Chronic post-traumatic stress disorder (PTSD) [facility] Diagnosis Change in bowel function- Primary Other symptoms involving digestive system GERD without esophagitis Esophageal reflux Screening for colon cancer Special screening for malignant neoplasms, colon Screening for cervical cancer Screening for malignant neoplasm of the cervix Type 2 diabetes mellitus with diabetic neuropathy, without long-term current use of insulin ([facility]) Mixed hyperlipidemia Hematochezia Blood in stool Weight loss Loss of weight [facility] this encounter [facility]* Diagnosis Systemic lupus erythematosus, unspecified SLE type, unspecified organ involvement status ([facility])- Primary Fibromyalgia Mylagia and myositis, unspecified Encounter for long-term (current) use of medications Encounter for long-term (current) use of other medications Chronic kidney disease, unspecified CKD stage [facility] this encounter [facility] Diagnosis Encounter for screening mammogram for breast cancer Screening for cervical cancer Screening for malignant neoplasm of the cervix [facility] Diagnosis Encounter for gynecological examination (general) (routine) without abnormal findings- Primary Pap smear for cervical cancer screening Screening for malignant neoplasm of the cervix Encounter for screening mammogram for breast cancer Vaginal irritation Unspecified noninflammatory disorder of vagina [facility] this [facility]* Diagnosis Change in bowel habits- Primary Other symptoms involving digestive system History of colonic polyps Personal history of colonic polyps Blood in stool Nausea Nausea alone Gastroesophageal reflux disease, unspecified whether esophagitis present [facility] Diagnosis Systemic lupus erythematosus, unspecified SLE type, unspecified organ involvement status (HCC)- Primary [facility] Diagnosis Iron malabsorption Other specified intestinal malabsorption [facility] Diagnosis Other iron deficiency anemia- Primary Iron malabsorption Other specified intestinal malabsorption [facility] Diagnosis Other iron deficiency anemia- Primary Iron malabsorption Other specified intestinal malabsorption [facility]* Diagnosis Other iron deficiency anemia- Primary Iron malabsorption Other specified intestinal malabsorption documented in this encounter [facility] note* Diagnosis Chronic post-traumatic stress disorder (PTSD)- Primary Moderate episode of recurrent major depressive disorder (HCC) Panic disorder with agoraphobia Agoraphobia with panic disorder documented [facility]* Diagnosis Other iron deficiency anemia- Primary documented in this encounter [facility] note* Diagnosis Type 2 diabetes mellitus with diabetic neuropathy, without long-term current use of insulin (HCC) [facility] Outpatient Procedure (Routine) - Closed Specialty Diagnoses / Procedures Referred By Contac t Referred To [facility] Diagnoses Bradycardia Procedures ECG COMPLETE ECG ROUTINE ECG W/LEAST 12 LDS W/I&R Leelee Farrar APRN.CNP [address] [place] [address] [facility] [address] [place] [address] Referral ID Status Reason Start Date Expiration Date V isits Requested Visits Authorized [id number] Closed Auto-Generate d Referral 09/22/2021 09/22/2022 1 1 [facility] for referral (narrative)* Diagnostic Procedure Only (Routine) - Pending Review Specialty Diagnoses / Procedures Referred By Contac t Referred To Contact [facility] Diagnoses Encounter for screening mammogram for breast cancer Procedures CINDI SCREENING SCREENING MAMMOGRAPHY BI 2-VIEW BREAST INC CAD Ailyn Carson PA-C [address] [place] [address] [facility] [address] [place] [address] Referral ID Status Reason Start Date Expiration Date Visits Requested Visits Authorized [id number] Pending Review Auto-Generat ed Referral 05/23/2022 06/22/2023 1 [facility] Diagnostic Procedure Only (Routine) - Pending Review Specialty Diagnoses / Procedures Referred By Conthenrry t Referred To Contact [facility] Diagnoses Encounter for screening mammogram for breast cancer Procedures CINDI SCREENING SCREENING MAMMOGRAPHY BI 2-VIEW BREAST INC CAD Roberta Lanza, TARAH [address] [place] [address] [facility] [address] [place] [address] Referral ID Status Reason Start Date Expiration Date Visits Requested Visits Authorized [id number] Pending Review Auto-Generat ed Referral 06/07/2022 07/07/2023 1 1 [facility] Summary Purpose Family History No Family History Records FoundNo Family History Records FoundNo Family History Records FoundNo Family History Records FoundNo Family History Records FoundNo Family History Records Found Advance Directives No Advanced Directives Records FoundDocuments on File Type Date Recorded Patient Financial Institution President Expl anation Advance Directive(s) 05/04/2020 3:47 PM Advance Directive(s) 12/24/2019 8:06 AM Advance Directive(s) 07/11/2016 8:32 AM Advance Directive(s) 07/11/2016 8:55 AM Advance Directive(s) 07/06/2016 11:01 AM Documents on File Type Date Recorded Patient Financial Institution President Expl anation Advance Directive(s) 05/04/2020 3:47 PM Advance Directive(s) 12/24/2019 8:06 AM Advance Directive(s) 07/11/2016 8:32 AM Advance Directive(s) 07/11/2016 8:55 AM Advance Directive(s) 07/06/2016 11:01 AM Documents on File Type Date Recorded Patient Financial Institution President Expl anation Advance Directive(s) 07/11/2016 8:55 AM Documents on File Type Date Recorded Patient Financial Institution President Expl anation Advance Directive(s) 07/11/2016 8:55 AM Medications Administered Section Inactive Administered Medications - up to 3 most recent administrations Medication Order MAR Action Action Date Dose Rate Site iron sucrose 200 mg in NaCl 0.9% 100ml (VENOFER) 200 mg, INTRAVENOUS, at 400 mL/hr, Administer over 15 Minutes, ONCE, 1 dose, On Sat08/24/21 at 1600, Please conduct a 30 minute post dose observation. New Bag/Syringe/Bottle 08/24/2021 3:44 PM EDT 200 mg 400 mL/hr Inactive Administered Medications - up to 3 most recent administrations Medication Order MAR Action Action Date Dose Rate Site iron sucrose 200 mg in NaCl 0.9% 100ml (VENOFER) 200 mg, INTRAVENOUS, at 400 mL/hr, Administer over 15 Minutes, ONCE, 1 dose, On Sat08/28/21 at 1230, Please conduct a 30 minute post dose observation. New Bag/Syringe/Bottle 08/28/2021 12:18 PM EDT 200 mg 400 mL/hr Inactive Administered Medications - up to 3 most recent administrations Medication Order MAR Action Action Date Dose Rate Site iron sucrose 200 mg in NaCl 0.9% 100ml (VENOFER) 200 mg, INTRAVENOUS, at 400 mL/hr, Administer over 15 Minutes, ONCE, 1 dose, On Sat08/30/21 at 1100, Please conduct a 30 minute post dose observation. New Bag/Syringe/Bottle 08/30/2021 10:52 AM EDT 200 mg 400 mL/hr Inactive Administered Medications - up to 3 most recent administrations Medication Order MAR Action Action Date Dose Rate Site iron sucrose 200 mg in NaCl 0.9% 100ml (VENOFER) 200 mg, INTRAVENOUS, at 400 mL/hr, Administer over 15 Minutes, ONCE, 1 dose, On Sat09/11/21 at 1430, Please conduct a 30 minute post dose observation. New Bag/Syringe/Bottle 09/11/2021 2:22 PM EDT 200 mg 400 mL/hr Inactive Administered Medications - up to 3 most recent administrations Medication Order MAR Action Action Date Dose Rate Site iron sucrose 200 mg in NaCl 0.9% 100ml (VENOFER) 200 mg, INTRAVENOUS, at 400 mL/hr, Administer over 15 Minutes, ONCE, 1 dose, On Sat09/12/21 at 1430, Please conduct a 30 minute post dose observation. New Bag/Syringe/Bottle 09/12/2021 2:24 PM EDT 200 mg 400 mL/hr Inactive Administered Medications - up to 3 most recent administrations Medication Order MAR Action Action Date Dose Rate Site iron sucrose 200 mg in NaCl 0.9% 100ml (VENOFER) 200 mg, INTRAVENOUS, at 400 mL/hr, Administer over 15 Minutes, ONCE, 1 dose, On Sat11/02/22 at 1400, Please conduct a 30 minute post dose observation. New Bag/Syringe/Bottle 11/02/2022 1:46 PM EDT 200 mg 400 mL/hr Inactive Administered Medications - up to 3 most recent administrations Medication Order MAR Action Action Date Dose Rate Site iron sucrose 200 mg in NaCl 0.9% 100ml (VENOFER) 200 mg, INTRAVENOUS, at 400 mL/hr, Administer over 15 Minutes, ONCE, 1 dose, On Sat11/06/22 at 1500, Please conduct a 30 minute post dose observation. New Bag/Syringe/Bottle 11/06/2022 2:44 PM EDT 200 mg 400 mL/hr Inactive Administered Medications - up to 3 most recent administrations Medication Order MAR Action Action Date Dose Rate Site iron sucrose 200 mg in NaCl 0.9% 100ml (VENOFER) 200 mg, INTRAVENOUS, at 400 mL/hr, Administer over 15 Minutes, ONCE, 1 dose, On Sat11/12/22 at 1330, Please conduct a 30 minute post dose observation. New Bag/Syringe/Bottle 11/12/2022 1:24 PM EDT 200 mg 400 mL/hr Inactive Administered Medications - up to 3 most recent administrations Medication Order MAR Action Action Date Dose Rate Site iron sucrose 200 mg in NaCl 0.9% 100ml (VENOFER) 200 mg, INTRAVENOUS, at 400 mL/hr, Administer over 15 Minutes, ONCE, 1 dose, On Sat11/14/22 at 1100, Please conduct a 30 minute post dose observation. New Bag/Syringe/Bottle 11/14/2022 11:07 AM EDT 200 mg 400 mL/hr Reason for Referral Specialty Diagnoses / Procedures Referred By Contac t Referred To Contact Psychology Diagnoses Panic disorder with agoraphobia Major depressive disorder, recurrent episode, moderate (HCC) Tremors of nervous system Medical marijuana use Procedures CONSULT TO PSYCHOLOGY OFFICE/OUTPATIENT [facility] 60-74 MINUTES Cary Loredo, ORDER [employer] [address] [place] [address] Referral ID Status Reason Start Date Expiration Date Visits Requested Visits Authorized [id number] Pending Review PCP Requested Referral 2 03/07/2023 1 1 Specialty Diagnoses / Procedures Referred By Contac t Referred To Contact Tyler Dixon, [employer] [address] [place] [address] Referral ID Status Reason Start Date Expiration Date V isits Requested Visits Authorized [id number] Authorized 04/14/2022 05/14/2023 1 1 Specialty Diagnoses / Procedures Referred By Contac t Referred To Contact Gynecology Diagnoses Screening for cervical cancer Procedures CONSULT TO GYNECOLOGY OFFICE/OUTPATIENT [facility] 60-74 MINUTES Ailyn Carson PA-C [address] [place] [address] Referral ID Status Reason Start Date Expiration Date Visits Requested Visits Authorized [id number] Authorized PCP Requested Referral Auto-Generate d Referral 05/21/2022 05/21/2023 1 1 Specialty Diagnoses / Procedures Referred By Contac t Referred To Contact General Surgery Diagnoses Change in bowel function Screening for colon cancer Procedures CONSULT TO GENERAL SURGERY OFFICE/OUTPATIENT [facility] 60-74 MINUTES Ailyn Carson PA-C [address] [place] [address] Referral ID Status Reason Start Date Expiration Date Visits Requested Visits Authorized [id number] Authorized PCP Requested Referral 05/21/2022 05/21/2023 1 1 Additional Source Comments INFORMATION SOURCE (unrecogn ized section and content) DATE CREATED AUTHOR AUTHOR'S ORGANIZ ATION 10/01/2017 [facility] DATE CREATED AUTHOR AUTHOR'S ORGANIZ ATION 03/01/2020 [facility] DATE CREATED AUTHOR AUTHOR'S ORGANIZ ATION 05/05/2020 [facility] DATE CREATED AUTHOR AUTHOR'S ORGANIZ ATION 08/17/2022 [facility] DATE CREATED AUTHOR AUTHOR'S ORGANIZ ATION 04/13/2023 [facility] Source Comments (unrecognize d section and content) In the event this informatio n is protected by the Federal Confidentiality of Alcohol and Drug Abuse Patient Records regulations: The Federal rules restrict any use of the information to criminally investigate or prosecute any alcohol or drug abuse patient.[facility] the event this information is protected by the Federal Confidentiality of Alcohol and Drug Abuse Patient Records regulations: The Federal rules restrict any use of the information to criminally investigate or prosecute any alcohol or drug abuse patient.[facility] the event this information is protected by the Federal Confidentiality of Alcohol and Drug Abuse Patient Records regulations: The Federal rules restrict any use of the information to criminally investigate or prosecute any alcohol or drug abuse patient.[facility] the event this information is protected by the Federal Confidentiality of Alcohol and Drug Abuse Patient Records regulations: The Federal rules restrict any use of the information to criminally investigate or prosecute any alcohol or drug abuse patient.[facility] the event this information is protected by the Federal Confidentiality of Alcohol and Drug Abuse Patient Records regulations: The Federal rules restrict any use of the information to criminally investigate or prosecute any alcohol or drug abuse patient.[facility] the event this information is protected by the Federal Confidentiality of Alcohol and Drug Abuse Patient Records regulations: The Federal rules restrict any use of the information to criminally investigate or prosecute any alcohol or drug abuse patient.[facility]In the event this information is protected by the Federal Confidentiality of Alcohol and Drug Abuse Patient Records regulations: The Federal rules restrict any use of the information to criminally investigate or prosecute any alcohol or drug abuse patient.[facility] the event this information is protected by the Federal Confidentiality of Alcohol and Drug Abuse Patient Records regulations: The Federal rules restrict any use of the information to criminally investigate or prosecute any alcohol or drug abuse patient.[facility]In the event this information is protected by the Federal Confidentiality of Alcohol and Drug Abuse Patient Records regulations: The Federal rules restrict any use of the information to criminally investigate or prosecute any alcohol or drug abuse patient.[facility]In the event this information is protected by the Federal Confidentiality of Alcohol and Drug Abuse Patient Records regulations: The Federal rules restrict any use of the information to criminally investigate or prosecute any alcohol or drug abuse patient.[facility]In the event this information is protected by the Federal Confidentiality of Alcohol and Drug Abuse Patient Records regulations: The Federal rules restrict any use of the information to criminally investigate or prosecute any alcohol or drug abuse patient.[facility] HospitalIn the event this information is protected by the Federal Confidentiality of Alcohol and Drug Abuse Patient Records regulations: The Federal rules restrict any use of the information to criminally investigate or prosecute any alcohol or drug abuse patient.[facility] HospitalIn the event this information is protected by the Federal Confidentiality of Alcohol and Drug Abuse Patient Records regulations: The Federal rules restrict any use of the information to criminally investigate or prosecute any alcohol or drug abuse patient.[facility] HospitalIn the event this information is protected by the Federal Confidentiality of Alcohol and Drug Abuse Patient Records regulations: The Federal rules restrict any use of the information to criminally investigate or prosecute any alcohol or drug abuse patient.[facility] HospitalIn the event this information is protected by the Federal Confidentiality of Alcohol and Drug Abuse Patient Records regulations: The Federal rules restrict any use of the information to criminally investigate or prosecute any alcohol or drug abuse patient.[facility] HospitalIn the event this information is protected by the Federal Confidentiality of Alcohol and Drug Abuse Patient Records regulations: The Federal rules restrict any use of the information to criminally investigate or prosecute any alcohol or drug abuse patient.[facility] HospitalIn the event this information is protected by the Federal Confidentiality of Alcohol and Drug Abuse Patient Records regulations: The Federal rules restrict any use of the information to criminally investigate or prosecute any alcohol or drug abuse patient.[facility] HospitalIn the event this information is protected by the Federal Confidentiality of Alcohol and Drug Abuse Patient Records regulations: The Federal rules restrict any use of the information to criminally investigate or prosecute any alcohol or drug abuse patient.[facility] HospitalIn the event this information is protected by the Federal Confidentiality of Alcohol and Drug Abuse Patient Records regulations: The Federal rules restrict any use of the information to criminally investigate or prosecute any alcohol or drug abuse patient.[facility] HospitalIn the event this information is protected by the Federal Confidentiality of Alcohol and Drug Abuse Patient Records regulations: The Federal rules restrict any use of the information to criminally investigate or prosecute any alcohol or drug abuse patient.[facility] HospitalIn the event this information is protected by the Federal Confidentiality of Alcohol and Drug Abuse Patient Records regulations: The Federal rules restrict any use of the information to criminally investigate or prosecute any alcohol or drug abuse patient.[facility] HospitalIn the event this information is protected by the Federal Confidentiality of Alcohol and Drug Abuse Patient Records regulations: The Federal rules restrict any use of the information to criminally investigate or prosecute any alcohol or drug abuse patient.[facility] HospitalIn the event this information is protected by the Federal Confidentiality of Alcohol and Drug Abuse Patient Records regulations: The Federal rules restrict any use of the information to criminally investigate or prosecute any alcohol or drug abuse patient.[facility] HospitalIn the event this information is protected by the Federal Confidentiality of Alcohol and Drug Abuse Patient Records regulations: The Federal rules restrict any use of the information to criminally investigate or prosecute any alcohol or drug abuse patient.[facility] HospitalIn the event this information is protected by the Federal Confidentiality of Alcohol and Drug Abuse Patient Records regulations: The Federal rules restrict any use of the information to criminally investigate or prosecute any alcohol or drug abuse patient.[facility] HospitalIn the event this information is protected by the Federal Confidentiality of Alcohol and Drug Abuse Patient Records regulations: The Federal rules restrict any use of the information to criminally investigate or prosecute any alcohol or drug abuse patient.[facility] HospitalIn the event this information is protected by the Federal Confidentiality of Alcohol and Drug Abuse Patient Records regulations: The Federal rules restrict any use of the information to criminally investigate or prosecute any alcohol or drug abuse patient.[facility] HospitalIn the event this information is protected by the Federal Confidentiality of Alcohol and Drug Abuse Patient Records regulations: The Federal rules restrict any use of the information to criminally investigate or prosecute any alcohol or drug abuse patient.[facility]In the event this information is protected by the Federal Confidentiality of Alcohol and Drug Abuse Patient Records regulations: The Federal rules restrict any use of the information to criminally investigate or prosecute any alcohol or drug abuse patient.[facility] HospitalIn the event this information is protected by the Federal Confidentiality of Alcohol and Drug Abuse Patient Records regulations: The Federal rules restrict any use of the information to criminally investigate or prosecute any alcohol or drug abuse patient.[facility] HospitalIn the event this information is protected by the Federal Confidentiality of Alcohol and Drug Abuse Patient Records regulations: The Federal rules restrict any use of the information to criminally investigate or prosecute any alcohol or drug abuse patient.[facility] HospitalIn the event this information is protected by the Federal Confidentiality of Alcohol and Drug Abuse Patient Records regulations: The Federal rules restrict any use of the information to criminally investigate or prosecute any alcohol or drug abuse patient.[facility] HospitalIn the event this information is protected by the Federal Confidentiality of Alcohol and Drug Abuse Patient Records regulations: The Federal rules restrict any use of the information to criminally investigate or prosecute any alcohol or drug abuse patient.[facility] HospitalIn the event this information is protected by the Federal Confidentiality of Alcohol and Drug Abuse Patient Records regulations: The Federal rules restrict any use of the information to criminally investigate or prosecute any alcohol or drug abuse patient.[facility] HospitalIn the event this information is protected by the Federal Confidentiality of Alcohol and Drug Abuse Patient Records regulations: The Federal rules restrict any use of the information to criminally investigate or prosecute any alcohol or drug abuse patient.[facility] HospitalIn the event this information is protected by the Federal Confidentiality of Alcohol and Drug Abuse Patient Records regulations: The Federal rules restrict any use of the information to criminally investigate or prosecute any alcohol or drug abuse patient.[facility] HospitalIn the event this information is protected by the Federal Confidentiality of Alcohol and Drug Abuse Patient Records regulations: The Federal rules restrict any use of the information to criminally investigate or prosecute any alcohol or drug abuse patient.[facility] HospitalIn the event this information is protected by the Federal Confidentiality of Alcohol and Drug Abuse Patient Records regulations: The Federal rules restrict any use of the information to criminally investigate or prosecute any alcohol or drug abuse patient.[facility] HospitalIn the event this information is protected by the Federal Confidentiality of Alcohol and Drug Abuse Patient Records regulations: The Federal rules restrict any use of the information to criminally investigate or prosecute any alcohol or drug abuse patient.[facility] HospitalIn the event this information is protected by the Federal Confidentiality of Alcohol and Drug Abuse Patient Records regulations: The Federal rules restrict any use of the information to criminally investigate or prosecute any alcohol or drug abuse patient.[facility] HospitalIn the event this information is protected by the Federal Confidentiality of Alcohol and Drug Abuse Patient Records regulations: The Federal rules restrict any use of the information to criminally investigate or prosecute any alcohol or drug abuse patient.[facility] HospitalIn the event this information is protected by the Federal Confidentiality of Alcohol and Drug Abuse Patient Records regulations: The Federal rules restrict any use of the information to criminally investigate or prosecute any alcohol or drug abuse patient.[facility] HospitalIn the event this information is protected by the Federal Confidentiality of Alcohol and Drug Abuse Patient Records regulations: The Federal rules restrict any use of the information to criminally investigate or prosecute any alcohol or drug abuse patient.[facility] HospitalIn the event this information is protected by the Federal Confidentiality of Alcohol and Drug Abuse Patient Records regulations: The Federal rules restrict any use of the information to criminally investigate or prosecute any alcohol or drug abuse patient.[facility] HospitalIn the event this information is protected by the Federal Confidentiality of Alcohol and Drug Abuse Patient Records regulations: The Federal rules restrict any use of the information to criminally investigate or prosecute any alcohol or drug abuse patient.[facility] HospitalIn the event this information is protected by the Federal Confidentiality of Alcohol and Drug Abuse Patient Records regulations: The Federal rules restrict any use of the information to criminally investigate or prosecute any alcohol or drug abuse patient.[facility] HospitalIn the event this information is protected by the Federal Confidentiality of Alcohol and Drug Abuse Patient Records regulations: The Federal rules restrict any use of the information to criminally investigate or prosecute any alcohol or drug abuse patient.[facility] HospitalIn the event this information is protected by the Federal Confidentiality of Alcohol and Drug Abuse Patient Records regulations: The Federal rules restrict any use of the information to criminally investigate or prosecute any alcohol or drug abuse patient.[facility] HospitalIn the event this information is protected by the Federal Confidentiality of Alcohol and Drug Abuse Patient Records regulations: The Federal rules restrict any use of the information to criminally investigate or prosecute any alcohol or drug abuse patient.[facility] HospitalIn the event this information is protected by the Federal Confidentiality of Alcohol and Drug Abuse Patient Records regulations: The Federal rules restrict any use of the information to criminally investigate or prosecute any alcohol or drug abuse patient.[facility] HospitalIn the event this information is protected by the Federal Confidentiality of Alcohol and Drug Abuse Patient Records regulations: The Federal rules restrict any use of the information to criminally investigate or prosecute any alcohol or drug abuse patient.[facility] HospitalIn the event this information is protected by the Federal Confidentiality of Alcohol and Drug Abuse Patient Records regulations: The Federal rules restrict any use of the information to criminally investigate or prosecute any alcohol or drug abuse patient.[facility] HospitalIn the event this information is protected by the Federal Confidentiality of Alcohol and Drug Abuse Patient Records regulations: The Federal rules restrict any use of the information to criminally investigate or prosecute any alcohol or drug abuse patient.[facility] HospitalIn the event this information is protected by the Federal Confidentiality of Alcohol and Drug Abuse Patient Records regulations: The Federal rules restrict any use of the information to criminally investigate or prosecute any alcohol or drug abuse patient.[facility] HospitalIn the event this information is protected by the Federal Confidentiality of Alcohol and Drug Abuse Patient Records regulations: The Federal rules restrict any use of the information to criminally investigate or prosecute any alcohol or drug abuse patient.[facility] HospitalIn the event this information is protected by the Federal Confidentiality of Alcohol and Drug Abuse Patient Records regulations: The Federal rules restrict any use of the information to criminally investigate or prosecute any alcohol or drug abuse patient.[facility] HospitalIn the event this information is protected by the Federal Confidentiality of Alcohol and Drug Abuse Patient Records regulations: The Federal rules restrict any use of the information to criminally investigate or prosecute any alcohol or drug abuse patient.[facility] HospitalIn the event this information is protected by the Federal Confidentiality of Alcohol and Drug Abuse Patient Records regulations: The Federal rules restrict any use of the information to criminally investigate or prosecute any alcohol or drug abuse patient.[facility] HospitalIn the event this information is protected by the Federal Confidentiality of Alcohol and Drug Abuse Patient Records regulations: The Federal rules restrict any use of the information to criminally investigate or prosecute any alcohol or drug abuse patient.[facility] HospitalIn the event this information is protected by the Federal Confidentiality of Alcohol and Drug Abuse Patient Records regulations: The Federal rules restrict any use of the information to criminally investigate or prosecute any alcohol or drug abuse patient.[facility] HospitalIn the event this information is protected by the Federal Confidentiality of Alcohol and Drug Abuse Patient Records regulations: The Federal rules restrict any use of the information to criminally investigate or prosecute any alcohol or drug abuse patient.[facility] HospitalIn the event this information is protected by the Federal Confidentiality of Alcohol and Drug Abuse Patient Records regulations: The Federal rules restrict any use of the information to criminally investigate or prosecute any alcohol or drug abuse patient.[facility] HospitalIn the event this information is protected by the Federal Confidentiality of Alcohol and Drug Abuse Patient Records regulations: The Federal rules restrict any use of the information to criminally investigate or prosecute any alcohol or drug abuse patient.[facility] HospitalIn the event this information is protected by the Federal Confidentiality of Alcohol and Drug Abuse Patient Records regulations: The Federal rules restrict any use of the information to criminally investigate or prosecute any alcohol or drug abuse patient.[facility] HospitalIn the event this information is protected by the Federal Confidentiality of Alcohol and Drug Abuse Patient Records regulations: The Federal rules restrict any use of the information to criminally investigate or prosecute any alcohol or drug abuse patient.[facility] HospitalIn the event this information is protected by the Federal Confidentiality of Alcohol and Drug Abuse Patient Records regulations: The Federal rules restrict any use of the information to criminally investigate or prosecute any alcohol or drug abuse patient.[facility] HospitalIn the event this information is protected by the Federal Confidentiality of Alcohol and Drug Abuse Patient Records regulations: The Federal rules restrict any use of the information to criminally investigate or prosecute any alcohol or drug abuse patient.[facility] HospitalIn the event this information is protected by the Federal Confidentiality of Alcohol and Drug Abuse Patient Records regulations: The Federal rules restrict any use of the information to criminally investigate or prosecute any alcohol or drug abuse patient.[facility] HospitalIn the event this information is protected by the Federal Confidentiality of Alcohol and Drug Abuse Patient Records regulations: The Federal rules restrict any use of the information to criminally investigate or prosecute any alcohol or drug abuse patient.[facility] HospitalIn the event this information is protected by the Federal Confidentiality of Alcohol and Drug Abuse Patient Records regulations: The Federal rules restrict any use of the information to criminally investigate or prosecute any alcohol or drug abuse patient.[facility] HospitalIn the event this information is protected by the Federal Confidentiality of Alcohol and Drug Abuse Patient Records regulations: The Federal rules restrict any use of the information to criminally investigate or prosecute any alcohol or drug abuse patient.[facility] HospitalIn the event this information is protected by the Federal Confidentiality of Alcohol and Drug Abuse Patient Records regulations: The Federal rules restrict any use of the information to criminally investigate or prosecute any alcohol or drug abuse patient.[facility] HospitalIn the event this information is protected by the Federal Confidentiality of Alcohol and Drug Abuse Patient Records regulations: The Federal rules restrict any use of the information to criminally investigate or prosecute any alcohol or drug abuse patient.[facility] HospitalIn the event this information is protected by the Federal Confidentiality of Alcohol and Drug Abuse Patient Records regulations: The Federal rules restrict any use of the information to criminally investigate or prosecute any alcohol or drug abuse patient.[facility] HospitalIn the event this information is protected by the Federal Confidentiality of Alcohol and Drug Abuse Patient Records regulations: The Federal rules restrict any use of the information to criminally investigate or prosecute any alcohol or drug abuse patient.[facility] HospitalIn the event this information is protected by the Federal Confidentiality of Alcohol and Drug Abuse Patient Records regulations: The Federal rules restrict any use of the information to criminally investigate or prosecute any alcohol or drug abuse patient.[facility] Reason for Visit (unrecogniz ed section and content) Specialty Diagnoses / Procedures Referred By Contac t Referred To Contact Diagnoses Other iron deficiency anemia Nhung Wallis, [employer] [address] [place] [address] [facility] [address] [place] [address] Referral ID Status Reason Start Date Expiration Date V isits Requested Visits Authorized [id number] Authorized 12/15/2020 03/15/2021 99 99 Reason Onset Date Comments Refill Request 07/07/2021 Reason Onset Date Comments Refill Request 07/11/2021 Reason Onset Date Comments Refill Request 08/04/2021 Reason Onset Date Comments Refill Request 08/05/2021 Reason Onset Date Comments Refill Request 08/11/2021 Reason Comments Orders Reason Comments Established Patient Reason Comments Results Reason Comments Follow Up over a year since la st seen Reason Comments Refill Request Reason Comments Infusion Reason Comments Depression Follow Up Anxiety Tremor Reason Comments Future Appointment Reason Comments Bradycardia medication follow up Diabetes stopped Lantus, akilah rted metformin Leg Pain left calf pain after fall Reason Onset Date Comments Refill Request 09/30/2021 Reason Comments Medication Question Reason Onset Date Comments Refill Request 10/04/2021 Reason Onset Date Comments Refill Request 10/20/2021 Reason Onset Date Comments Refill Request 11/06/2021 Reason Onset Date Comments Refill Request 11/19/2021 Reason Onset Date Comments Refill Request 11/24/2021 Reason Comments Medication question Reason Comments Appointment Reason Comments Follow Up Reason Comments Follow Up Reason Onset Date Comments Refill Request 03/23/2022 Reason Onset Date Comments Refill Request 03/30/2022 Reason Onset Date Comments Refill Request 04/16/2022 Reason Comments Patient Request Reason Onset Date Comments Refill Request 05/11/2022 Reason Comments Rectal Problem Reason Comments SLE Reason Comments Yearly Exam Specialty Diagnoses / Procedures Referred By Syd t Referred To Contact Gynecology Diagnoses Screening for cervical cancer Procedures CONSULT TO GYNECOLOGY OFFICE/OUTPATIENT NEW HIGH MDM 60-74 MINUTES Ailyn Carson PA-C [address] [place] [address] Referral ID Status Reason Start Date Expiration Date V isits Requested Visits Authorized [id number] Closed PCP Requested Referral Auto-Generated Referral 05/21/2022 05/21/2023 1 1 Reason Comments Consult Colonoscopy consult Reason Comments Insurance Authorization Trulicity Reason Comments Question Reason Onset Date Comments Refill Request 08/12/2022 Reason Onset Date Comments Refill Request 09/10/2022 Reason Onset Date Comments Refill Request 09/20/2022 Reason Onset Date Comments Refill Request 10/06/2022 Reason Onset Date Comments Refill Request 10/26/2022 Specialty Diagnoses / Procedures Referred By Syd t Referred To Contact Diagnoses Other iron deficiency anemia Iron malabsorption Alexis Duong, DO [address] [place] [address] [facility] [address] [place] [address] Referral ID Status Reason Start Date Expiration Date V isits Requested Visits Authorized [id number] Authorized 10/23/2022 01/21/2023 99 99 Reason Onset Date Comments Refill Request 11/19/2022 Reason Comments AVS 12/11/22 Reason Onset Date Comments Refill Request 2023 Reason Onset Date Comments Refill Request 02/15/2023 Reason Onset Date Comments Refill Request 03/08/2023 Care Teams (unrecognized sec tion and content) Publication Designer Relationship Specialty Start Date End Date Steve Verdugo MD [address] [place], [place] [id number] PCP - General Family Practice 03/09/15 Publication Designer Relationship Specialty Start Date End Date Steve Verdugo MD [address] [place], [place] [id number] PCP - General Family Practice 03/09/15 Publication Designer Relationship Specialty Start Date End Date Steve Verdugo MD [address] [place], [place] [id number] PCP - General Family Practice 03/09/15 Publication Designer Relationship Specialty Start Date End Date Steve Verdugo MD [address] [place] [address] PCP - General Family Practice 03/09/15 Publication Designer Relationship Specialty Start Date End Date Steve Verdugo MD [address] [facility] [place] [place] [address] PCP - General Family Practice 03/09/15 Publication Designer Relationship Specialty Start Date End Date Steve Verdugo MD [address] [facility] [place] [place] [address] PCP - General Family Practice 03/09/15 Publication Designer Relationship Specialty Start Date End Date Steve Verdugo MD [address] [facility] [place] [place] [address] PCP - General Family Practice 03/09/15 Publication Designer Relationship Specialty Start Date End Date Steve Verdugo MD [address] [facility] [place] [place] [address] PCP - General Family Practice 03/09/15 Publication Designer Relationship Specialty Start Date End Date Steve Verdugo MD [address] [facility] [place] [place] [address] PCP - General Family Practice 03/09/15 Publication Designer Relationship Specialty Start Date End Date Steve Verdugo MD [address] [facility] [place] [place] [address] PCP - General Family Practice 03/09/15 Publication Designer Relationship Specialty Start Date End Date Steve Verdugo MD [address] [facility] [place] [place] [address] PCP - General Family Practice 03/09/15 Publication Designer Relationship Specialty Start Date End Date Steve Verdugo MD [address] [facility] [place] [place] [address] PCP - General Family Practice 03/09/15 Publication Designer Relationship Specialty Start Date End Date Steve Verdugo MD [address] [facility] [place] [place] [address] PCP - General Family Practice 03/09/15 Publication Designer Relationship Specialty Start Date End Date Steve Verdugo MD [address] [facility] [place] [place] [address] PCP - General Family Practice 03/09/15 Publication Designer Relationship Specialty Start Date End Date Steve Verdugo MD [address] [facility] [place] [place] [address] PCP - General Family Practice 03/09/15 Publication Designer Relationship Specialty Start Date End Date Steve Verdugo MD [address] [facility] [place] [place] [address] PCP - General Family Practice 03/09/15 Publication Designer Relationship Specialty Start Date End Date Steve Verdugo MD [address] [facility] [place] [place] [address] PCP - General Family Practice 03/09/15 Publication Designer Relationship Specialty Start Date End Date Steve Verdugo MD [address] [facility] [place] [place] [address] PCP - General Family Practice 03/09/15 Publication Designer Relationship Specialty Start Date End Date Ailyn Carson PA-C [address] [facility] [place] [place] [address] PCP - General Family Medicine 01/01/22 Publication Designer Relationship Specialty Start Date End Date Ailyn Carson PA-C [address] [facility] [place] [place] [address] PCP - General Family Medicine 01/01/22 Publication Designer Relationship Specialty Start Date End Date Ailyn Carson PA-C [address] [facility] [place] [place] [address] PCP - General Family Medicine 01/01/22 Publication Designer Relationship Specialty Start Date End Date Ailyn Carson PA-C [address] [place] [address] PCP - General Family Medicine 01/01/22 Publication Designer Relationship Specialty Start Date End Date Ailyn Carson PA-C [address] [place] [address] PCP - General Family Medicine 01/01/22 Publication Designer Relationship Specialty Start Date End Date Ailyn Carson PA-C [address] [facility] [place] [address] PCP - General Family Medicine 01/01/22 Publication Designer Relationship Specialty Start Date End Date Ailyn Carson PA-C [address] [facility] [place] [address] PCP - General Family Medicine 01/01/22 Publication Designer Relationship Specialty Start Date End Date Ailyn Carson PA-C [address] [facility] [place] [address] PCP - General Family Medicine 01/01/22 Publication Designer Relationship Specialty Start Date End Date Ailyn Carson PA-C [address] [facility] [place] [address] PCP - General Family Medicine 01/01/22 Publication Designer Relationship Specialty Start Date End Date Ailyn Carson PA-C [address] [facility] [place] [address] PCP - General Family Medicine 01/01/22 Publication Designer Relationship Specialty Start Date End Date Ailyn Carson PA-C [address] [facility] [place] [address] PCP - General Family Medicine 01/01/22 Publication Designer Relationship Specialty Start Date End Date Ailyn Carson PA-C [address] [facility] [place] [address] PCP - General Family Medicine 01/01/22 Publication Designer Relationship Specialty Start Date End Date Ailyn Carson PA-C [address] [facility] [place] [place] [address] PCP - General Family Medicine 01/01/22 Publication Designer Relationship Specialty Start Date End Date Ailyn Carson PA-C [address] [facility] [place] [place] [address] PCP - General Family Medicine 01/01/22 Publication Designer Relationship Specialty Start Date End Date Steve Verdugo MD [address] [place] [address] PCP - General Family Medicine 03/09/15 12/31/21 Ailyn Carson PA-C [address] [place] [address] PCP - General Family Medicine 01/01/22 Publication Designer Relationship Specialty Start Date End Date Ailyn Carson PA-C [address] [place] [address] PCP - General Family Medicine 01/01/22 Publication Designer Relationship Specialty Start Date End Date Ailyn Carson PA-C [address] [place] [address] PCP - General Family Medicine 01/01/22 Publication Designer Relationship Specialty Start Date End Date Ailyn Carson PA-C [address] [place] [address] PCP - General Family Medicine 01/01/22 Publication Designer Relationship Specialty Start Date End Date Ailyn Carson PA-C [address] [place] [address] PCP - General Family Medicine 01/01/22 Alexis Duong DO [address] [facility] [place] [address] Hematology/Oncology 10/28/22 Publication Designer Relationship Specialty Start Date End Date Ailyn Carson PA-C [address] [place] [address] PCP - General Family Medicine 01/01/22 Alexis Duong DO [address] [place] [address] Hematology/Oncology 10/28/22 Publication Designer Relationship Specialty Start Date End Date Ailyn Carson PA-C [address] [place] [address] PCP - General Family Medicine 01/01/22 Alexis Duong DO [address] [place] [address] Hematology/Oncology 10/28/22 Publication Designer Relationship Specialty Start Date End Date Ailyn Carson PA-C [address] [place] [address] PCP - General Family Medicine 01/01/22 Alexis Duong DO [address] [place] [address] Hematology/Oncology 10/28/22 Publication Designer Relationship Specialty Start Date End Date Ailyn Carson PA-C [address] [place] [address] PCP - General Family Medicine 01/01/22 Alexis Duong DO [address] [place] [address] Hematology/Oncology 10/28/22 Publication Designer Relationship Specialty Start Date End Date Ailyn Carson PA-C [address] [place], [place] [address] PCP - General Family Medicine 01/01/22 Alexis Duong DO [address] [place] [address] Hematology/Oncology 10/28/22 Publication Designer Relationship Specialty Start Date End Date Ailyn Carson PA-C [address] [place], [place] [address] PCP - General Family Medicine 01/01/22 Alexis Duong DO [address] [place] [address] Hematology/Oncology 10/28/22 Publication Designer Relationship Specialty Start Date End Date Ailyn Carson PA-C [address] [place], [place] [address] PCP - General Family Medicine 01/01/22 Alexis Duong DO [address] [place], [place] [address] [phone] Hematology/Oncology 10/28/22 FOR RECORDS PERTAINING TO PATIENTS WHO ARE OR HAVE BEEN ENROLLED IN A CHEMICAL DEPENDENCY/SUBSTANCEABUSE PROGRAM, SOME INFORMATION MAY BE OMITTED. This clinical summary was aggregated from multiple sources. Caution should be exercised in using it in the provision of clinical care. This summary normalizes information from multiple sources, and as a consequence, information in this document may materially change the coding, format and clinical context of patient data. In addition, data may be omitted in some cases. CLINICAL DECISIONS SHOULD BE BASED ON THE PRIMARY CLINICAL RECORDS. [facility] [employer] [facility]. provides no warranty or guarantee of the accuracy or completeness of information in this document.
[2023-04-17] MEDS: Orphenadrine 60 MG/2 ML Ampul IM (22:16)
[2023-04-17] MEDS: Morphine 4 MG/ML Syringe IM (22:16)
--- NOTE | 2023-04-17 22:17 | EDS_ITS ---
HPI History of Present Illness Chief Complaint: Back Informant: patient Onset/Context/Timing Onset: Today Context: Sudden Onset Chronic pain exacerbated by: Prolonged car ride Timing: Continuous Quality: Aching Location: Lumbar and Buttock (Right) Worsened by: improves with Movement Relieved by: Remaining Still Associated Symptoms Associated Symptoms: Negative for Numbness, Tingling, Radiation to Right Leg, Radiation to Left Leg, Fever, Abdominal Pain, Dysuria, Unable to Ambulate, Unable to Transfer, Urinary Retention, Urinary Incontinence, Constipation or Fecal Incontinence Narrative Narrative: Patient presents with back pain that began today. Patient states it began rather suddenly. Patient states she was in a car over the past couple days for 6 hours. Patient states that she got home today and laid down. Patient states that when she tried to get back up she developed pain in her low back. Patient states it feels like a spasm. Patient states it is constant. Patient describes it as aching. Patient states it is over the lower lumbar area and radiates into her right buttock. Patient states it is worse with movement. Patient states it is better when she is able to lay still. Patient admits to some tingling in her right buttock. Patient denies any fevers or chills. Patient denies any direct trauma or injury. Patient denies any bowel or bladder changes. Patient denies any saddle anesthesia. [facility] Medical History Ambulates with cane Anemia Anxiety DDD (degenerative disc disease) Depression Diabetes mellitus, type II Diastolic dysfunction Esophagitis Fibromyalgia Gastric reflux GI bleed History of echocardiogram History of wrist fracture Hyperlipidemia Leg cramps Low iron Lupus Obesity, morbid, BMI 40.0-49.9 Osteoarthritis Peripheral neuropathy Restless legs Rheumatoid arteritis Right bundle branch block Seizures Wears dentures Wears glasses Home Medications bupropion HCl 150 mg 24 hr tablet, extended release 150 mg PO DAILY depression 04/17/19 [History Last Taken 06/10/20] fluoxetine 20 mg capsule 60 mg PO DAILY mood 04/17/19 [History Last Taken 06/10/20] gabapentin 300 mg capsule 300 mg PO TID nerve pain 04/17/19 [History Last Taken 06/10/20] hydroxychloroquine 200 mg tablet 200 mg PO DAILYCM arthritis 04/17/19 [History Last Taken 06/10/20] metformin 500 mg tablet,extended release 24 hr 500 mg PO BIDCM dm 04/17/19 [History Last Taken 06/10/20] omeprazole 40 mg capsule,delayed release 40 mg PO DAILY gerd 04/17/19 [History Last Taken 06/10/20] pravastatin 20 mg tablet 20 mg PO QHS cholesterol 04/17/19 [History Last Taken 06/10/20] oxycodone myristate 18 mg capsule sprinkle extended release 12hr(DON'T CRUSH) 18 mg PO BID pain 06/01/20 [History Last Taken 06/10/20] sucralfate 1 gram tablet 1 gm PO BID upset stomach 06/01/20 [History Last Taken 06/10/20] furosemide 20 mg tablet 40 mg PO BID water pill 06/10/20 [History Last Taken 06/10/20] insulin glargine 100 unit/mL (3 mL) subcutaneous pen 40 unit (0.4 mL) SQ QHS dm ##1 06/12/20 [Rx Last Taken Unknown] acetaminophen 325 mg tablet (Tylenol) 650 mg (2 x 325 mg) PO Q6H PRN PRN Pain Score 1-10/Temp > 100.7 F #0 tabs 11/05/20 [Rx Last Taken Unknown] ibuprofen 400 mg tablet 400 mg PO Q4H PRN PRN Pain Score 1-10/Temp > 100.7 F #0 tabs 11/05/20 [Rx Last Taken Unknown] Allergy/AdvReac Type Severity Reaction Status Date / Time No Known Allergies Allergy Verified 04/17/23 18:39 Family History Father Cancer Mother Hypertension Surgical History H/O repair of right rotator cuff History of carpal tunnel surgery History of left heart catheterization (08/01/07) History of lumbar fusion History of open reduction and internal fixation (ORIF) procedure History of total knee replacement History of tubal ligation Hx of cholecystectomy S/P insertion of spinal cord stimulator Social History Smoking Status: Former smoker ROS ROS ED Constitutional Constitutional ED: Denies chills or fever(s) Eyes Eyes: Denies blurry vision or change in vision ENT ENT ED: Denies rhinorrhea or sore throat Cardiovascular Cardiovascular: Denies chest pain or palpitations Respiratory/Chest Respiratory/Chest: Denies cough or dyspnea Gastrointestinal Gastrointestinal: Denies nausea or vomiting Genitourinary Genitourinary ED: Denies dysuria or hematuria Musculoskeletal Musculoskeletal: Reports back pain; Denies neck pain Integumentary Denies abscess or rash Neurologic Neurologic: Reports headache(s); Denies weakness Allergic/Immunologic Allergic/Immunologic ED: Denies mouth swelling or urticaria EXAM Physical Exam Const Vital Signs: 04/17/23 18:40 Temperature 97.4 F L Temperature Source Temporal Pulse Rate 77 Respiratory Rate 14 Blood Pressure 117/66 Blood Pressure Mean 83 Pulse Ox 100 Oxygen Delivery Method Room Air Positive well nourished, well developed and obese General Appearance ED: well developed and NAD Nutritional Appearance: obese HEENT Reports moist mucous membranes Neck supple and no JVD GI non-tender and non-distended Palpation: soft Back/Spine Back/Spine Narrative: There is tenderness and spasm of the lumbar paraspinal muscles. There is some mild midline tenderness. There is no bony crepitance or step-off noted. Range of motion was limited in all motions of the lumbar spine secondary to pain. Straight leg raises were negative bilaterally. Strength is 5/5 bilaterally in the lower extremities. There are no sensory deficits noted. Lumbar Spine / Lower Back: ROM limited and straight leg raise negative bilater ally Extremity normal to inspection General Extremety ED: Negative for edema or tenderness General Extremity: Negative for edema Neuro oriented x3, CN's II-XII intact bilaterally and no sensory deficits noted Sensorium / Orientation: alert Motor Exam: strength 5/5 throughout Psych mental status grossly normal MDM MDM MDM Narrative Medical decision making narrative: Patient was advised that this is most likely muscle strain and spasm. Patient was given injections of morphine and Norflex here. Patient was instructed to follow-up with her pain management physician in 3 to 5 days. Patient was instructed to continue her chronic pain medications as previously prescribed. Patient was instructed to return if worse in any way. Patient understood and was agreeable with the plan. All questions were answered. Discharge Plan Triage Chief Complaint: Back ED Provider: Darion Morse Dx/Rx/DC Orders Clinical Impression: Chronic back pain, Acute lumbosacral myofascial strain Instructions: ED Back Sprain/Strain, ED Chronic Pain Prescriptions: No Action omeprazole 40 MG capsule,delayed release(DR/EC) 40 mg PO DAILY gabapentin 300 MG capsule 300 mg PO TID pravastatin 20 MG tablet 20 mg PO QHS hydroxychloroquine 200 MG tablet 200 mg PO DAILYCM fluoxetine 20 MG capsule 60 mg PO DAILY metformin 500 MG tablet extended release 24 hr 500 mg PO BIDCM bupropion HCl 150 MG tablet extended release 24 hr 150 mg PO DAILY oxycodone myristate 18 MG cap,sprinkl,ER12hr(DONT CRUSH) 18 mg PO BID sucralfate 1 GM tablet 1 gm PO BID furosemide 20 MG tablet 40 mg PO BID insulin glargine 100 UNIT/ML insulin pen 40 unit SQ QHS Qty: 1 0RF acetaminophen [Tylenol] 325 mg Tablet 650 mg PO Q6H PRN PRN (Reason: Pain Score 1-10/Temp > 100.7 F) Qty: 0 0RF ibuprofen 400 mg Tablet 400 mg PO Q4H PRN PRN (Reason: Pain Score 1-10/Temp > 100.7 F) Qty: 0 0RF Primary Care Provider: Steve Turcios Referrals: Мария Sommers MD [Med Staff - Active Staff] - 3-5 Days Steve Turcios MD [Primary Care Provider] - 5-7 Days Disposition Disposition: Home, Self Care
[2023-04-17 22:56] VITALS: BP 118/60; PULSE 75; RESP 18
== END 2023-04-17 22:59 | disposition home or self-care (01) ==
PROVIDERS: Emergency Provider Emergency Medicine; PCP Family Medicine; Visit Provider Emergency Medicine
DX: S39.012A Strain of muscle, fascia and tendon of lower back, initial encounter (principal); E11.9 Type 2 diabetes mellitus without complications; Z79.4 Long term (current) use of insulin; X58.XXXA Exposure to other specified factors, initial encounter; G89.29 Other chronic pain; K21.00 Gastro-esophageal reflux disease with esophagitis, without bleeding; Z79.84 Long term (current) use of oral hypoglycemic drugs; Z79.899 Other long term (current) drug therapy; M62.830 Muscle spasm of back; Z87.891 Personal history of nicotine dependence
CPT/HCPCS: 96372; 99282

== ENCOUNTER 2024-05-06 14:41 | Inpatient (IN) | payer MEDICARE, SELFPAY ==
[2024-05-06] VITALS (7 sets, daily range): BP systolic 108–173; BP diastolic 59–111; PULSE 58–78; RESP 12–26; TEMP 36.2–36.9; O2SAT 93–98; BMI 30.5; BMI 31.8
--- NOTE | 2024-05-06 15:28 | EKG12_ITS ---
Test Reason : SYNCOPE Blood Pressure : */* mmHG Vent. Rate : 74 BPM Atrial Rate : 74 BPM P-R Int : 246 ms QRS Dur : 128 ms QT Int : 434 ms P-R-T Axes : 70 -16 24 degrees QTcB Int : 481 ms Sinus rhythm with 1st degree A-V block Right bundle branch block Abnormal ECG Confirmed by RALPH YIN, CARLYLE ([id number]), technical writer and editor POLLO FLORES ([id number]) on 05/07/2024 1:24:39 PM Referred By: Confirmed By: CARLYLE ROSAS MD
--- NOTE | 2024-05-06 15:30 | EDS_ITS ---
HPI HPI - Fall History of Present Illness Chief Complaint: Fall Informant: patient and family Narrative Narrative: 69-year-old female presenting to the emergency room with falls. Patient notes over the past month she has been experiencing progressively worsening episodes where she gets weak like she is going to pass out but typically can make it to a chair. This morning however she fell twice. She believes she lost consciousness for just a second. During the fall she notes an injury to the right lower ankle but states both knees hurt below the knees down. She notes that she was transition to Wellbutrin about a month and a half ago. Family notes about a 20 pound weight loss with the past couple months. She states that she has been eating and drinking. She has been urinating and defecating without difficulty. Family made an appointment with primary care for today but did not make it because of the episodes today. Preceding the falls she feels lightheaded but is not experiencing sweating nausea chest pain palpitations or shortness of breath. [facility] Medical History History of wrist fracture Wears glasses Wears dentures Ambulates with cane Low iron Restless legs Seizures Gastric reflux Leg cramps History of echocardiogram Diastolic dysfunction Peripheral neuropathy DDD (degenerative disc disease) Anxiety Esophagitis GI bleed Right bundle branch block Osteoarthritis Depression Anemia Fibromyalgia Rheumatoid arteritis Obesity, morbid, BMI 40.0-49.9 Lupus Hyperlipidemia Diabetes mellitus, type II Home Medications ?Medication ?Instructions ?Recorded ?Last Taken ?Type bupropion HCl 150 mg 24 hr tablet, 150 mg PO DAILY depression 04/17/19 06/10/20 History extended release fluoxetine 20 mg capsule 60 mg PO DAILY mood 04/17/19 06/10/20 History gabapentin 300 mg capsule 300 mg PO TID nerve pain 04/17/19 06/10/20 History hydroxychloroquine 200 mg tablet 200 mg PO DAILYCM arthritis 04/17/19 06/10/20 History metformin 500 mg tablet,extended 500 mg PO BIDCM dm 04/17/19 06/10/20 History release 24 hr omeprazole 40 mg capsule,delayed 40 mg PO DAILY gerd 04/17/19 06/10/20 History release pravastatin 20 mg tablet 20 mg PO QHS cholesterol 04/17/19 06/10/20 History oxycodone myristate 18 mg capsule 18 mg PO BID pain 06/01/20 06/10/20 History sprinkle extended release 12hr(DON'T CRUSH) sucralfate 1 gram tablet 1 gm PO BID upset stomach 06/01/20 06/10/20 History furosemide 20 mg tablet 40 mg PO BID water pill 06/10/20 06/10/20 History insulin glargine 100 unit/mL (3 40 unit (0.4 mL) SQ QHS dm ##1 06/12/20 Unknown Rx mL) subcutaneous pen acetaminophen 325 mg tablet 650 mg (2 x 325 mg) PO Q6H PRN PRN 11/05/20 Unknown Rx (Tylenol) Pain Score 1-10/Temp > 100.7 F #0 tabs ibuprofen 400 mg tablet 400 mg PO Q4H PRN PRN Pain Score 11/05/20 Unknown Rx 1-10/Temp > 100.7 F #0 tabs Allergy/AdvReac Type Severity Reaction Status Date / Time No Known Allergies Allergy Verified 05/06/24 14:49 Family History Father Cancer Mother Hypertension Surgical History History of total knee replacement H/O repair of right rotator cuff S/P insertion of spinal cord stimulator Hx of cholecystectomy History of lumbar fusion History of open reduction and internal fixation (ORIF) procedure History of tubal ligation History of carpal tunnel surgery History of left heart catheterization (08/01/07) Social History Smoking Status: Former smoker ROS ROS ED ROS Narrative Intermittent episodes of weakness Constitutional Constitutional ED: Reports weight loss; Denies chills Eyes Eyes: Denies change in vision or diplopia ENT ENT ED: Denies ear pain, rhinorrhea or sore throat Cardiovascular Cardiovascular: Reports other Details: Syncope ; Denies chest pain, orthopnea, palpitations or racing heartbeat Respiratory/Chest Respiratory/Chest: Denies cough, dyspnea or orthopnea Gastrointestinal Gastrointestinal: Denies abdominal pain, diarrhea, nausea or vomiting Genitourinary Genitourinary ED: Denies dysuria, hematuria or urinary frequency Musculoskeletal Musculoskeletal: Reports other Details: Bilateral leg pain right ankle worse with swelling ; Denies arthralgias or myalgias Integumentary Reports other Details: Left forearm skin tear ; Denies abscess or rash Neurologic Neurologic: Denies headache(s) or weakness Psychiatric Psychiatric: Denies anxiety, depression, suicidal ideation or suicidal thoughts Endocrine Endocrinology: Denies polydipsia, polyphagia or polyuria Allergic/Immunologic Allergic/Immunologic ED: Denies mouth swelling, tongue swelling or urticaria EXAM Physical Exam Const Vital Signs: 05/06/24 14:42 05/06/24 14:47 05/06/24 16:41 Temperature 98.5 F Temperature Source Oral Pulse Rate 58 L 78 Respiratory Rate 16 22 H Respiratory Effort Normal Non-Labored Respiratory Depth Normal Respiratory Pattern Normal Blood Pressure 173/111 H 118/65 Blood Pressure Mean 131 82 Pulse Ox 95 95 96 Oxygen Delivery Method Room Air Room Air Room Air Positive well nourished, well developed and obese General Appearance ED: well developed and NAD Nutritional Appearance: obese HEENT Reports normocephalic, head/scalp atraumatic and moist mucous membranes Eyes PERRL and EOMs intact bilaterally Neck full ROM, no lymphadenopathy, supple and no JVD Resp normal respiratory effort and clear to auscultation bilaterally Cardio regular rate, regular rhythm and no murmurs GI normal to inspection, nondistended, normoactive bowel sounds and non-tender Palpation: soft Back/Spine no CVA tenderness and normal ROM Extremity Extremity Narrative: Right ankle shows lateral palpation. No fibular head tenderness. No fifth metatarsal pain. General Extremety ED: Negative for edema General Extremity: Negative for edema Neuro oriented x3 and CN's II-XII intact bilaterally Sensorium / Orientation: alert Motor Exam: strength 5/5 throughout Psych mental status grossly normal Mood & Affect: Negative for depressed or tearful Skin no rashes or lesions noted Skin Narrative: Superficial 1 cm skin tear to the medial left distal forearm MDM MDM MDM Narrative Medical decision making narrative: Differential diagnosis includes but not limited to anemia dehydration electrolyte abnormalities acute kidney injury ankle fracture cardiac dysrhythmia congestive heart failure acute coronary syndrome My independent interpretation the chest x-ray is no acute process. My independent interpretation of the right ankle is a nondisplaced lateral malleolus fracture. My independent interpretation of plain films of the left ankle is no acute fracture. Patient was plated to stay in a boot orthosis. Patient blood work was obtained shows a white count of 10.1 hemoglobin of 12 platelet count 224 sodium potassium magnesium within normal limits troponin is 6 BMP is 16.4 creatinine is elevated off her baseline now at 2.03 with a BUN of 26 CO2 of 22. Patient received a liter of IV fluids. We are still awaiting her to give us a urine specimen. She received [place] for pain. I have not seen any events on the monitor. Given that she has been increasingly falling over the past month and today having a reported syncopal episode with no apparent prodrome and the fact that she is already a fall risk and now has a broken ankle I think it is reasonable that we observe her in the hospital from a cardiac standpoint as well as from a PT standpoint to evaluate her safety to return home. Family is comfortable with that plan History & Record Review Discussion w/independent historian: Patient and Family Lab Data Attestation: I reviewed the patient's lab results. Labs: Laboratory Results - last 24 hr 05/06/24 15:32 WBC 10.1 RBC 4.52 Hgb 12.0 Hct 39.1 MCV 86.5 MCH 26.5 L MCHC 30.7 L RDW Std Deviation 47.2 H RDW Coeff of Vikram 14.8 H Plt Count 224 MPV 10.5 Immature Gran % (Auto) 0.800 Neut % (Auto) 75.4 H Lymph % (Auto) 14.3 L [place] % (Auto) 6.4 Eos % (Auto) 2.6 Baso % (Auto) 0.5 Absolute Neuts (auto) 7.6 Absolute Lymphs (auto) 1.44 Nucleated RBC % 0 Sodium 139 Potassium 3.8 Chloride 107 Carbon Dioxide 22.0 Anion Gap 10 BUN 26 H Creatinine 2.03 H Estim Creat Clear Calc 28.27 Est GFR (MDRD) Af Amer 31 L Est GFR (MDRD) Non-Af 26 L BUN/Creatinine Ratio 12.8 Glucose 147 H Calcium 8.8 Magnesium 1.7 Total Bilirubin 0.50 Direct Bilirubin 0.18 AST 25 ALT 25 Alkaline Phosphatase 128 H Troponin I High Sens 6 B-Natriuretic Peptide 16.4 Total Protein 6.0 L Albumin 2.9 L Globulin 3.1 Radiography Diagnostic Testing: Clinical Impression(s) from Imaging Studies Ankle X-Ray 05/06/24 15:36 IMPRESSION: On the lateral view, an ankle joint effusion is noted. Normal contour of the Achilles tendon is seen. Mild posterior and at least moderate inferior calcaneal spurring is seen. A minimally displaced intra-articular FRACTURE of the distal right fibula is seen involving portions of the lateral malleolus. No tibial fracture is identified at this time. Reading Location: [id number] Ankle X-Ray 05/06/24 16:35 IMPRESSION: Degenerative changes with no acute osseous abnormality. Reading [facility] Initial EKG: Attestation: I personally reviewed and interpreted this EKG as follows: Comments: Sinus rhythm with first-degree AV block ventricular rate of 74 bpm. Right bundle branch block noted (this is an old finding) Management Discussion w/another healthcare provider: Hospitalist (Dr Nayak) Discharge Plan Dx/Rx/DC Orders Clinical Impression: Syncope, Near syncope, Fracture of distal end of fibula Disposition Disposition: Acute Care Hospital [facility]
[2024-05-06] MEDS: 0.9% Normal Saline (1000mL) 1,000 ML 1000 ML IV (15:32)
--- NOTE | 2024-05-06 15:36 | RAD_ITS ---
PROCEDURE: ANKLE MIN 3 VIEWS REASON FOR EXAM: Injury. TECHNIQUE: 3 views of the right ankle COMPARISON: None. RAD/Ankle min 3 Views IMPRESSION: On the lateral view, an ankle joint effusion is noted. Normal contour of the Achilles tendon is seen. Mild posterior and at least moderate inferior calcaneal spurring is seen. A minimally displaced intra-articular FRACTURE of the distal right fibula is se en involving portions of the lateral malleolus. No tibial fracture is identified at this time. Reading Location: [id number]
--- NOTE | 2024-05-06 15:36 | RAD_ITS ---
PROCEDURE: CHEST 1 VIEW (PORTABLE) TECHNIQUE: Frontal and lateral views of the chest. COMPARISON: None. FINDINGS: The heart size is normal. The mediastinal contour is unremarkable. The lungs are clear. The bones are unremarkable. RAD/Chest 1 View (Portable) IMPRESSION: No radiographic evidence of acute cardiopulmonary disease Reading [facility]
[2024-05-06 15:40] LABS: Absolute Lymphocyte Count 1.44 X10^3/uL (0.83-4.51); Absolute Neutrophil Count 7.6 X10^3/uL (2.0-7.7); Basophil# 0.05 X10^3/uL; Basophil% 0.5 % (0-1); Eosinophil# 0.26 X10^3/uL; Eosinophils% 2.6 % (0-5); Hematocrit 39.1 % (37-47); Lymphocyte # 1.44 X10^3/ul (0.83-4.51); Lymphocyte % 14.3 % (19-41); Mean Corp Hgb Conc 30.7 g/dL (32-36); Mean Corpuscular Hgb 26.5 pg (27.0-32.0); Mean Corpuscular Volume 86.5 fL (81-99); Mean Platelet Vol. 10.5 fl (6.2-12.0); Monocyte# 0.64 X10^3/uL; Monocyte% 6.4 % (0-10); NRBC Flagged by Analyzer 0 % (0-5); Neutrophil # 7.59 X10^3/uL (2.7-7.7); Neutrophil % 75.4 % (47-70); Platelet Count 224 K/mm3 (150-450); RBC Distribution Width CV 14.8 % (11.6-14.6); RBC Distribution Width SD 47.2 fl (35.1-43.9); Red Blood Count 4.52 M/mm3 (4.2-5.4); White Blood Count 10.1 K/mm3 (4.4-11.0)
[2024-05-06] MEDS: HYDROcodone Bitartrate/Apap 5/325 Tablet PO (16:27)
[2024-05-06 16:30] LABS: AST(SGOT) 25 U/L (15-37); Alanine Aminotransfer ALT/SGPT 25 U/L (13-56); Albumin, Serum 2.9 g/dL (3.2-5.0); Alkaline Phosphatase 128 U/L (45-117); Anion Gap 10 (5-15); BUN 26 mg/dL (7-18); BUN/Creat Ratio 12.8 RATIO (10-20); Bilirubin, Direct 0.18 mg/dL (0.00-0.30); Calcium,Total 8.8 mg/dL (8.5-10.1); Chloride 107 mmol/L (98-107); Creatinine, Serum 2.03 mg/dL (0.55-1.02); EST Glomerular Filtration Rate 26 mL/min (>60); Est Glom Filt Rate - Afr Amer 31 mL/min (>60); Estimated Creatinine Clearance 28.27 ml/min; Globulin 3.1 g/dL (2.2-4.2); Glucose 147 mg/dL (74-106); Magnesium 1.7 mg/dL (1.6-2.6); Potassium 3.8 mmol/L (3.5-5.1); Sodium Level 139 mmol/L (136-145); Troponin-I HS 6 pg/mL (3.0-54.0)
--- NOTE | 2024-05-06 16:35 | RAD_ITS ---
PROCEDURE: ANKLE MIN 3 VIEWS REASON FOR EXAM: Injury TECHNIQUE: 3 views of the left ankle COMPARISON: None FINDINGS: No visible fracture. No suspicious bone lesion. Normal alignment. Mortise appears intact. No effusion. Soft tissues are unremarkable. Dorsal and plantar calcaneal spurs RAD/Ankle min 3 Views IMPRESSION: Degenerative changes with no acute osseous abnormality. Reading Location: [facility]
[2024-05-06 16:55] LABS: BNP,B-Type NATRIURETIC PEPTIDE 16.4 pg/mL (0-100)
[2024-05-06] MEDS: 0.9% Normal Saline (1000mL) 1,000 ML 999 ML IV (16:59)
--- NOTE | 2024-05-06 17:27 | PCM.HP.STD ---
[facility] - General General Date of Admission: 05/06/24 Date of Service: 05/06/24 Chief Complaint: Presyncopal symptoms with falls and right ankle pain HPI Narrative CORINNA DYE, is a 69 F who presented to [facility] ED on 05/06/2024 with presyncopal symptoms with falls at home and right ankle pain. Patient lives at home with her mother who is 90 years old. Patient has some difficulty with ambulation but is typically able to care for herself without significant issue. Her history is significant for HFpEF, chronic back pain and depression. She has been on the same medications for heart failure for the past few years. She was started on low-dose sertraline and Wellbutrin by her psychiatrist about 3 months ago. She was also started on tramadol for chronic back pain in December. Patient does not check her blood pressures at home. Notes that she has felt some lightheadedness and dizziness especially with going from sitting to standing over the past few months now. However, today was the first time she had a fall associated with this. Her daughter was there to witness this event and saw the patient become quite pale prior to the fall. Did not appear to have a true syncopal event. In the ED patient was borderline hypotensive but otherwise hemodynamically stable on room air. Labs notable for creatinine 2.03 (baseline unclear), BUN 26. Right ankle x-ray showed a minimally displaced intra-articular fracture of the right distal fibula along with an ankle joint effusion. Given these findings, hospitalist was contacted for admission. I saw the patient at bedside in the ED, daughter was present. Patient was mildly fatigued. But otherwise sitting up comfortably in bed, conversing normally, in no acute distress. Her right foot was in a walking boot up to the mid heller. Patient denied any right foot or ankle pain at rest currently. Denied any other pain or discomfort. She and daughter are concerned about going home given that she does not have help at home and has been having frequent presyncopal symptoms. Will be admitted for further management. [facility] Medical History History of wrist fracture Wears glasses Wears dentures Ambulates with cane Low iron Restless legs Seizures Gastric reflux Leg cramps History of echocardiogram Diastolic dysfunction Peripheral neuropathy DDD (degenerative disc disease) Anxiety Esophagitis GI bleed Right bundle branch block Osteoarthritis Depression Anemia Fibromyalgia Rheumatoid arteritis Obesity, morbid, BMI 40.0-49.9 Lupus Hyperlipidemia Diabetes mellitus, type II Home Medications ?Medication ?Instructions ?Recorded ?Last Taken ?Type bupropion HCl 150 mg 24 hr tablet, 150 mg PO DAILY depression 04/17/19 06/10/20 History extended release gabapentin 300 mg capsule 300 mg PO BID nerve pain 04/17/19 06/10/20 History hydroxychloroquine 200 mg tablet 200 mg PO DAILY arthritis 04/17/19 06/10/20 History metformin 500 mg tablet,extended 500 mg PO BID dm 04/17/19 06/10/20 History release 24 hr omeprazole 40 mg capsule,delayed 40 mg PO DAILY gerd 04/17/19 06/10/20 History release pravastatin 20 mg tablet 20 mg PO QHS cholesterol 04/17/19 06/10/20 History sucralfate 1 gram tablet 1 g PO TID upset stomach 06/01/20 06/10/20 History furosemide 20 mg tablet 20 mg PO DAILY water pill 06/10/20 06/10/20 History cholecalciferol (vitamin D3) 1,250 1,250 mcg PO QWEEK 05/06/24 Unknown History mcg (50,000 unit) capsule dulaglutide 3 mg/0.5 mL 3 mg subcut QWEEK 05/06/24 Unknown History subcutaneous pen injector (Trulicity) empagliflozin 10 mg tablet 10 mg PO DAILY 05/06/24 Unknown History (Jardiance) gabapentin 300 mg capsule 600 mg PO QHS 05/06/24 Unknown History hydroxyzine HCl 25 mg tablet 25 mg PO TID PRN PRN anxiety 05/06/24 Unknown History potassium chloride 10 mEq 10 meq PO DAILY 05/06/24 Unknown History tablet,extended release sertraline 25 mg tablet 12.5 mg PO DAILY 05/06/24 Unknown History tramadol 50 mg tablet 50 mg PO TID PRN pain 05/06/24 Unknown History Allergy/AdvReac Type Severity Reaction Status Date / Time No Known Allergies Allergy Verified 05/06/24 14:49 Family History Father Cancer Mother Hypertension Surgical History History of total knee replacement H/O repair of right rotator cuff S/P insertion of spinal cord stimulator Hx of cholecystectomy History of lumbar fusion History of open reduction and internal fixation (ORIF) procedure History of tubal ligation History of carpal tunnel surgery History of left heart catheterization (08/01/07) Social History Smoking Status: Former smoker ROS Constitutional Constitutional: Reports fatigue; Denies chills, fever(s) or weakness Eyes Eyes: Denies change in vision Cardiovascular Cardiovascular: Reports lightheadedness; Denies chest pain, edema, orthopnea or palpitations Respiratory/Chest Respiratory/Chest: Denies cough or shortness of breath at rest Gastrointestinal Gastrointestinal: Denies abdominal pain, constipation, diarrhea, nausea or vomiting Genitourinary Genitourinary: Denies dysuria Musculoskeletal Musculoskeletal: Reports back pain; Denies arthralgias or myalgias Neurologic Neurologic: Denies confusion, dizziness, focal weakness or headache(s) Vital Signs Vital Signs Vital Signs: 05/06/24 14:42 05/06/24 14:47 05/06/24 16:41 Temperature 98.5 F Temperature Source Oral Pulse Rate 58 L 78 Respiratory Rate 16 22 H Respiratory Effort Normal Non-Labored Respiratory Depth Normal Respiratory Pattern Normal Blood Pressure 173/111 H 118/65 Blood Pressure Mean 131 82 Pulse Ox 95 95 96 Oxygen Delivery Method Room Air Room Air Room Air Weight Weight: 83.3 kg Body Mass Index (BMI) 30.5 Physical Exam Const alert, oriented x3 and no apparent distress Constitutional Narrative: Upper middle-aged female, appears older than stated age, class I obesity, mildly fatigued appearing, otherwise sitting back comfortably in bed, conversing normally, in no acute distress. General Appearance: cooperative and comfortable HEENT normocephalic, head/scalp atraumatic, hearing grossly normal bilaterally and nasal mucous membranes and turbinates normal HEENT Narrative: Dry mucous membranes. Eyes PERRL, EOMs intact bilaterally and conjunctivae normal Neck full ROM Chest inspection of chest normal Resp normal respiratory effort, normal air movement, no use of accessory muscles and clear to auscultation bilaterally Cardio regular rate, regular rhythm, no murmurs and peripheral pulses 2+ throughout GI normal to inspection, nondistended, normoactive bowel sounds, soft to palpation, non-tender and non-distended Back/Spine normal ROM Skin no rashes or lesions noted Neuro moves all extremities and no focal motor deficits Speech: speech normal Motor Exam: strength 5/5 throughout Psych mental status grossly normal Results Lab / Micro Data 05/06/24 15:32 05/06/24 15:32 Labs: Laboratory Results - last 24 hr 05/06/24 15:32: WBC 10.1, RBC 4.52, Hgb 12.0, Hct 39.1, MCV 86.5, MCH 26.5 L, MCHC 30.7 L, RDW Std Deviation 47.2 H, RDW Coeff of Vikram 14.8 H, Plt Count 224, MPV 10.5, Immature Gran % (Auto) 0.800, Neut % (Auto) 75.4 H, Lymph % (Auto) 14.3 L, [place] % (Auto) 6.4, Eos % (Auto) 2.6, Baso % (Auto) 0.5, Absolute Neuts (auto) 7.6, Absolute Lymphs (auto) 1.44, Nucleated RBC % 0, Sodium 139, Potassium 3.8, Chloride 107, Carbon Dioxide 22.0, Anion Gap 10, BUN 26 H, Creatinine 2.03 H, Estim Creat Clear Calc 28.27, Est GFR (MDRD) Af Amer 31 L, Est GFR (MDRD) Non-Af 26 L, BUN/Creatinine Ratio 12.8, Glucose 147 H, Calcium 8.8, Magnesium 1.7, Total Bilirubin 0.50, Direct Bilirubin 0.18, AST 25, ALT 25, Alkaline Phosphatase 128 H, Troponin I High Sens 6, B-Natriuretic Peptide 16.4, Total Protein 6.0 L, Albumin 2.9 L, Globulin 3.1 Imaging Radiology Impression Ankle X-Ray 05/06/24 15:36 IMPRESSION: On the lateral view, an ankle joint effusion is noted. Normal contour of the Achilles tendon is seen. Mild posterior and at least moderate inferior calcaneal spurring is seen. A minimally displaced intra-articular FRACTURE of the distal right fibula is seen involving portions of the lateral malleolus. No tibial fracture is identified at this time. Reading Location: [address] Ankle X-Ray 05/06/24 16:35 IMPRESSION: Degenerative changes with no acute osseous abnormality. Reading Location: [facility] Assessment & Plan Assessment/Plan (1) Near syncope: (2) Fracture of distal end of fibula: PLAN: Plan Patient is a 69-year-old female who presented [facility] ED on 05/06/2024 with presyncopal symptoms and falls with right ankle pain. 1. Presyncopal symptoms ? Admit under observation status to PCU. High suspicion is for presyncopal symptoms secondary to orthostatic hypotension from overmedication for heart failure. Lower suspicion for seizure activity while on both tramadol and bupropion but cannot rule out. Orthostatic vital signs ordered. Treatment as below. Continue cardiac monitoring. 2. Mechanical falls with right ankle fracture, acute on chronic debility ? PT/OT/case management consulted. Right ankle x-ray showed a minimally displaced intra-articular fracture of the right distal fibula along with an ankle joint effusion. Placed in walking boot in the ED, will continue this. Pain control with scheduled Tylenol and oxycodone as needed. Lives at home with her mother and has minimal help, will likely need either home with home health care or SNF placement on discharge. 3. Chronic back pain ? Was prescribed tramadol 3 times daily as needed in December. Has been taking doses of tramadol most days. Given that tramadol and bupropion together can lower the seizure threshold, will switch to oxycodone every 6 hours as needed for both back pain and right ankle pain. 4. Anxiety/depression ? Reportedly follows with a psychiatrist and was started on low-dose sertraline and bupropion within the last several months. Has had some improvement in symptoms on both of these medications. Will continue these at home dosage at this time. 5. HFpEF ? Last echo in 2020 showed EF 70%, diastolic function indeterminate, no other abnormalities. Home regimen of Lasix and empagliflozin. Will hold these medications for now and it may be reasonable to discontinue Lasix on discharge. 6. FRANSISCA versus progression of CKD ? Creatinine 2.03 on admit. Last creatinine values were 1.2-1.4 back in 2020. Given IV fluids in the ED, follow-up a.m. BMP and monitor urine output. Chronic medical conditions: ? Class I obesity: BMI 31 on admit. Complicates hospital course, care and prognosis. ? GERD: Continue home PPI. ? Rheumatoid arthritis: Stable. Continue home hydroxychloroquine. ? Type 2 diabetes mellitus: Blood glucose 147 on admit. Last A1c values from 2020 were around 6, repeat A1c ordered. Hold home oral medications and will start sliding scale insulin with meals while inpatient. DVT prophylaxis: Heparin subcu CODE STATUS: Full code, verified Expected disposition: TBD Total clinical time spent by myself addressing the patient's medical issues, reviewing all the data, and collaborating with patient's care team: 75 minutes. Charges/Coding Visit Charges Inpatient E&M: 05202 Init Hosp L3
[2024-05-06] MEDS: Heparin Injection (Vial) 5,000 UNIT/ML VIAL 5000 UNIT SC (21:30)
[2024-05-06] MEDS: Pravastatin 20 MG Tablet PO (21:31)
[2024-05-06] MEDS: Senna Tablet 1 TABLET PO (21:32)
[2024-05-06] MEDS: Acetaminophen 500 MG Tablet 1000 MG PO (21:32)
[2024-05-06] MEDS: Gabapentin 300 MG Capsule 600 MG PO (21:41)
[2024-05-06] MEDS: 0.9% Saline Lock 10 ML Syringe IV (21:47)
[2024-05-06 23:18] LABS: Bedside Glucose 118 mg/dL (74-106)
[2024-05-07] VITALS (12 sets, daily range): BP systolic 64–129; BP diastolic 44–71; PULSE 76–92; RESP 15–18; TEMP 36.8–37; O2SAT 92–97
[2024-05-07] MEDS: Acetaminophen 500 MG Tablet 1000 MG PO ×3 (06:18→23:03)
[2024-05-07] MEDS: Heparin Injection (Vial) 5,000 UNIT/ML VIAL 5000 UNIT SC ×3 (06:18→22:52)
[2024-05-07 07:01] LABS: Bedside Glucose 100 mg/dL (74-106)
[2024-05-07 07:34] LABS: Hematocrit 38.1 % (37-47); Hemoglobin 11.9 g/dL (12.0-15.0); Mean Corp Hgb Conc 31.2 g/dL (32-36); Mean Corpuscular Hgb 26.7 pg (27.0-32.0); Mean Corpuscular Volume 85.6 fL (81-99); Mean Platelet Vol. 11.2 fl (6.2-12.0); Platelet Count 237 K/mm3 (150-450); RBC Distribution Width SD 47.1 fl (35.1-43.9); Red Blood Count 4.45 M/mm3 (4.2-5.4)
[2024-05-07 07:55] LABS: Anion Gap 8 (5-15); BUN 31 mg/dL (7-18); BUN/Creat Ratio 12.5 RATIO (10-20); Chloride 109 mmol/L (98-107); Creatinine, Serum 2.48 mg/dL (0.55-1.02); EST Glomerular Filtration Rate 21 mL/min (>60); Est Glom Filt Rate - Afr Amer 25 mL/min (>60); Estimated Creatinine Clearance 23.65 ml/min; Glucose 101 mg/dL (74-106); Potassium 3.8 mmol/L (3.5-5.1); Sodium Level 139 mmol/L (136-145)
[2024-05-07] MEDS: oxyCODONE 5 MG Tablet PO ×2 (08:25→14:45)
[2024-05-07] MEDS: 0.9% Saline Lock 10 ML Syringe IV (08:26)
[2024-05-07] MEDS: Gabapentin 300 MG Capsule PO ×2 (08:26→14:09)
[2024-05-07] MEDS: Pantoprazole Sodium 40 MG Tablet PO (08:26)
[2024-05-07] MEDS: Sertraline 50 MG Tablet 12.5 MG PO (08:26)
[2024-05-07] MEDS: buPROPion (XL) 150 MG TABLET.XL PO (08:26)
[2024-05-07] MEDS: Hydroxychloroquine 200 MG Tablet PO (08:26)
--- NOTE | 2024-05-07 10:56 | CASEMGMT ---
Per therapy patient feels she needs to go to a correction facility. SW met with patient. Introduced self and role at [facility]. Patient confirmed she needs to go to a longterm. SW provided patient with a list of correction facility providers including quality and resource use data and consistent with patient?s preferred geographic region, medical needs, and insurance network were provided from the [employer] Guide. SW asked patient to pick 3-4 preferences and SW will take care of checking with facilities on availability. Patient asked for a writing utensil. SW provided patient with a pencil. SW to check back. Plan: SNF pending choices, accepting facility, and insurance approval. Guillermina Barndon INTERVENTIONAL TECHNOLOGIST DAISY
--- NOTE | 2024-05-07 12:15 | CASEMGMT ---
SW checked back with patient to see if she picked any preferences. Patient stated her two choices would be [facility] and [facility]. Patient said either one would be fine. SW told patient SW will work on referrals. SW asked Carol to please send a referral to both facilities. Plan: SNF pending accepting facility and insurance approval. Guillermina VILLA
[2024-05-07 12:20] LABS: Hemoglobin A1c 5.7 % (3.8-5.6)
[2024-05-07 12:27] LABS: Bedside Glucose 111 mg/dL (74-106)
--- NOTE | 2024-05-07 12:41 | CASEMGMT ---
Addendum entered by Carol Kelsey 05/07/24 16:41: [facility] has accepted. Requested that precert be submitted. Pt will need covid test at discharge. Carol Kelsey DC Planning Asst. Addendum entered by Carol Kelsey 05/07/24 14:02: Both have declined d/t no bed availability. Referral sent to [facility]. Carol Kelsey DC Planning Asst. Original Note: Referral [facility] to [facility] declined d/t no bed availability. Carol eKlsey DC Planning Asst.
--- NOTE | 2024-05-07 13:51 | CASEMGMT ---
ALVIN met with patient and let her know [facility] full. Patient said either of the facilities in [place] would be okay. ALVIN asked Carol to send referrals to both [facility]. Per [facility] until next week. Therefore, a referral will not be made to [facility]. Guillermina Brandon RETAIL PRODUCT ADVISOR DAISY
[2024-05-07] MEDS: Ondansetron 4 MG/2 ML Vial IV (14:45)
--- NOTE | 2024-05-07 15:58 | CASEMGMT ---
ALVIN met with patient and let her know that we are still waiting to hear from [facility] and that [facility] is full. ALVIN will check back with her tomorrow. Guillermina VILLA
[2024-05-07 16:38] LABS: Bedside Glucose 106 mg/dL (74-106)
[2024-05-07] MEDS: 0.9% Normal Saline (1000mL) 1,000 ML 100 ML IV (17:30)
[2024-05-07 17:47] LABS: Color, Urine Yellow (Yellow); Glucose, Dipstick 250 mg/dl (Normal); Ketone-Dipstick Negative (Negative); Leukocyte Esterase-Dipstick 500 /ul (Negative); Nitrite-Dipstick Negative (Negative); Occult Blood-Urine 25 /ul (Negative); Protein-Dipstick 30 mg/dl (Negative); Specific Gravity, Urine 1.015 (1.002-1.030); Urine Clarity Cloudy (Clear); Urine Urobilinogen 1 mg/dl (Normal)
[2024-05-07 18:32] LABS: Urine Bilirubin Dipstick 1 mg/dL (Negative)
[2024-05-07 18:35] LABS: White Blood Cells 50-100 SEEN /hpf (0-5)
[2024-05-07 18:36] LABS: Bacteria 3+ /hpf (None Seen); Mucous, Urine 1+ /hpf (<or=2+); Red Blood Cells-Urine 0-5 SEEN /hpf (0-5); Renal Epithelial Cells 0-5 SEEN /hpf (0-5); Squamous Epithelial Cells - UA 0-5 SEEN /hpf (5-10); Transitional Epithelial - Ur 0-5 SEEN /hpf (0-5); White Cell Cast 0-5 SEEN /lpf (None Seen)
--- NOTE | 2024-05-07 19:25 | PN.HOSP_ITS ---
Reason for Visit Reason for Visit: Diagnoses Syncope and collapse (05/07/24) Other fracture of upper and lower end of unspecified fibula, initial encounter for closed fracture (05/07/24) Subjective Subjective Patient was seen and examined today, she is had orthostatic hypotension today I have elected to place her on fluids and change her status to a full admission. Patient will be seen by podiatry to ensure she has follow-up care regarding her right fibular fracture. It appears that she will have to go to an extended care facility for short-term rehab services. Objective Data Objective Data Vital Signs: Vital Signs Temp Pulse Resp BP Pulse Ox O2 Del Method 98.2 F 91 18 129/59 H 94 Room Air 05/07/24 16:16 05/07/24 16:16 05/07/24 16:16 05/07/24 16:16 05/07/24 16:16 05/07/24 16:16 Oxygen Delivery Method Room Air Weight: 87 kg Body Mass Index (BMI) 31.8 Intake & Output: Intake and Output for Last 24 Hours 05/05/24 05/06/24 05/07/24 23:59 23:59 23:59 Intake Total 1999 840 / 840 Balance 1999 840 / 840 Lab / Micro Data 05/07/24 04:35 05/07/24 04:35 Labs: Laboratory Results - last 24 hr 05/06/24 21:38: POC Glucose 118 H 05/07/24 04:35: WBC 9.0, RBC 4.45, Hgb 11.9 L, Hct 38.1, MCV 85.6, MCH 26.7 L, M CHC 31.2 L, RDW Std Deviation 47.1 H, RDW Coeff of Vikram 15.0 H, Plt Count 237, MPV 11.2, Sodium 139, Potassium 3.8, Chloride 109 H, Carbon Dioxide 22.0, Anion Gap 8, BUN 31 H, Creatinine 2.48 H, Estim Creat Clear Calc 23.65, Est GFR (MDRD) Af Amer 25 L, Est GFR (MDRD) Non-Af 21 L, BUN/Creatinine Ratio 12.5, Glucose 101, Hemoglobin A1c 5.7 H, Calcium 9.0 05/07/24 06:21: POC Glucose 100 05/07/24 12:03: POC Glucose 111 H 05/07/24 16:18: POC Glucose 106 05/07/24 17:20: Urine Color Yellow, Urine Clarity Cloudy, Urine pH 6.0, Ur Specific [place] 1.015, Urine Protein 30 H, Urine Glucose (UA) 250 H, Urine Ketones Negative, Urine Occult Blood 25 H, Urine Nitrite Negative, Urine Bilirubin 1 H, Urine Urobilinogen 1 H, Ur Leukocyte Esterase 500 H, Urine RBC 0- 5 SEEN, Urine WBC 50-100 SEEN, Ur Squamous Epith Cells 0-5 SEEN, Ur Transition Epith Cell 0-5 SEEN, Ur Renal Epithelial Cell 0-5 SEEN, Urine Bacteria 3+, WBC Casts 0-5 SEEN, Urine Mucus 1+ Physical Exam Const alert, oriented x3, no apparent distress and average body habitus General Appearance: cooperative, well kempt and well developed Orientation / Consciousness: awake, oriented to person, oriented to place and oriented to time HEENT normocephalic, head/scalp atraumatic and moist oral mucous membranes Eyes PERRL, EOMs intact bilaterally and conjunctivae normal Neck supple, no JVD, thyroid normal and no carotid bruits General: trachea midline Resp normal respiratory effort, no retractions, no use of accessory muscles and clear to auscultation bilaterally Auscultation: Negative for rales, rhonchi or wheezes Cardio regular rate, regular rhythm, S1 normal heart sound, S2 normal heart sound, no murmurs, no rub and no gallops GI normal to inspection, nondistended, normoactive bowel sounds, soft to palpation, non-tender and non-distended Extremity Extremity Narrative: Patient's right lower extremity has a walking boot in place, this was not removed for examination of the area Skin no rashes or lesions noted General Skin Exam: no breakdown Neuro oriented x3, CN's II-XII intact bilaterally, moves all extremities, no focal motor deficits and no sensory deficits noted Sensorium / Orientation: awake and alert Speech: speech normal Psych affect normal Assessment & Plan Assessment/Plan (1) Fracture of distal end of fibula: PLAN: Plan 1. Acute debility secondary to acute right distal fibular fracture-patient will be seen by PT and OT, I will have podiatry see the patient #2 orthostatic hypotension-etiology unclear, patient was on furosemide as an outpatient, this is being held here, patient will be given IV fluids and reassess tomorrow #3 type 2 diabetes-patient's blood sugars will be monitored, sliding scale insulin will be administered as needed #4 hyperlipidemia-patient is on pravastatin Total clinical time spent by myself addressing the patient's medical issues, reviewing all of her data, and collaborating with patient's care team: 35 minutes Charges/Coding Visit Charges Inpatient E&M: 12046 Subs Hosp L2
[2024-05-07] MEDS: Pravastatin 20 MG Tablet PO (22:52)
[2024-05-07] MEDS: Gabapentin 300 MG Capsule 600 MG PO (22:53)
[2024-05-07] MEDS: 0.9% Normal Saline (1000mL) 1,000 ML 999 ML IV (23:00)
[2024-05-07] MEDS: Nystatin Powder 15gm Bottle 1 APPLIC TOPICAL (23:03)
[2024-05-07 23:39] LABS: Bedside Glucose 115 mg/dL (74-106)
[2024-05-08] VITALS (8 sets, daily range): BP systolic 90–144; BP diastolic 46–105; PULSE 71–87; RESP 15–18; TEMP 35.9–36.7; O2SAT 94–96
[2024-05-08] MEDS: 0.9% Normal Saline (1000mL) 1,000 ML 100 ML IV (03:32)
[2024-05-08] MEDS: Heparin Injection (Vial) 5,000 UNIT/ML VIAL 5000 UNIT SC ×3 (06:34→21:40)
[2024-05-08] MEDS: Acetaminophen 500 MG Tablet 1000 MG PO ×3 (06:34→21:49)
[2024-05-08 06:47] LABS: Bedside Glucose 104 mg/dL (74-106)
--- NOTE | 2024-05-08 09:30 | CASEMGMT ---
ALVIN notified patient that [facility] said they can take her. ALVIN explained she will stay here until her insurance approves her. Plan: d/c to [facility] pending pre-cert. Guillermina VILLA
[2024-05-08] MEDS: buPROPion (XL) 150 MG TABLET.XL PO (10:22)
[2024-05-08] MEDS: Sertraline 50 MG Tablet 12.5 MG PO (10:22)
[2024-05-08] MEDS: Gabapentin 300 MG Capsule PO ×2 (10:22→15:22)
[2024-05-08] MEDS: Pantoprazole Sodium 40 MG Tablet PO ×2 (10:23→10:33)
[2024-05-08] MEDS: Hydroxychloroquine 200 MG Tablet PO (10:23)
[2024-05-08] MEDS: Nystatin Powder 15gm Bottle 1 APPLIC TOPICAL ×2 (10:33→21:40)
[2024-05-08 12:04] LABS: Bedside Glucose 127 mg/dL (74-106)
--- NOTE | 2024-05-08 13:55 | CASEMGMT ---
Patient's insurance is intending to deny without a peer to peer. SW notified physician. Guillermina Brandon GLYCERIN SUPERVISOR FABRICATION MANAGER
--- NOTE | 2024-05-08 15:01 | PN.HOSP_ITS ---
Reason for Visit Reason for Visit: Diagnoses Syncope and collapse (05/07/24) Other fracture of upper and lower end of unspecified fibula, initial encounter for closed fracture (05/07/24) Subjective Subjective Patient was seen and examined today, her blood pressure has been low at times, I have elected to place her on midodrine. I understand from social security benefits interviewer that her insurance carrier was to have a peer to peer with me, I have reached out to them but have not heard back from them at this time, if I do not hear back from them today it will be Saturday before they are available. I talked to podiatry today, podiatry did not feel they needed see the patient in house and they recommended that she follow-up and continue to wear the walking boot and do weightbearing as tolerated with a walking boot. Objective Data Objective Data Vital Signs: Vital Signs Temp Pulse Resp BP Pulse Ox O2 Del Method 97.9 F 72 15 90/46 L 94 Room Air 05/08/24 10:30 05/08/24 10:30 05/08/24 10:30 05/08/24 10:30 05/08/24 10:30 05/08/24 10:30 Oxygen Delivery Method Room Air Weight: 87 kg Body Mass Index (BMI) 31.8 Intake & Output: Intake and Output for Last 24 Hours 05/06/24 05/07/24 05/08/24 23:59 23:59 23:59 Intake Total 1999 840 / 840 1999 Output Total 500 / 500 Balance 1999 840 / 340 1500 / 1500 Lab / Micro Data 05/07/24 04:35 05/07/24 04:35 Labs: Laboratory Results - last 24 hr 05/07/24 16:18: POC Glucose 106 05/07/24 17:20: Urine Color Yellow, Urine Clarity Cloudy, Urine pH 6.0, Ur Specific [place] 1.015, Urine Protein 30 H, Urine Glucose (UA) 250 H, Urine Ketones Negative, Urine Occult Blood 25 H, Urine Nitrite Negative, Urine Bilirubin 1 H, Urine Urobilinogen 1 H, Ur Leukocyte Esterase 500 H, Urine RBC 0- 5 SEEN, Urine WBC 50-100 SEEN, Ur Squamous Epith Cells 0-5 SEEN, Ur Transition Epith Cell 0-5 SEEN, Ur Renal Epithelial Cell 0-5 SEEN, Urine Bacteria 3+, WBC Casts 0-5 SEEN, Urine Mucus 1+ 05/07/24 22:33: POC Glucose 115 H 05/08/24 06:30: POC Glucose 104 05/08/24 11:39: POC Glucose 127 H Physical Exam Narrative alert, oriented x3, no apparent distress and average body habitus General Appearance: cooperative, well kempt and well developed Orientation / Consciousness: awake, oriented to person, oriented to place and oriented to time HEENT normocephalic, head/scalp atraumatic and moist oral mucous membranes Eyes PERRL, EOMs intact bilaterally and conjunctivae normal Neck supple, no JVD, thyroid normal and no carotid bruits General: trachea midline Resp normal respiratory effort, no retractions, no use of accessory muscles and clear to auscultation bilaterally Auscultation: Negative for rales, rhonchi or wheezes Cardio regular rate, regular rhythm, S1 normal heart sound, S2 normal heart sound, no murmurs, no rub and no gallops GI normal to inspection, nondistended, normoactive bowel sounds, soft to palpation, non-tender and non-distended Extremity Extremity Narrative: Patient's right lower extremity has a walking boot in place, this was not removed for examination of the area Skin no rashes or lesions noted General Skin Exam: no breakdown Neuro oriented x3, CN's II-XII intact bilaterally, moves all extremities, no focal motor deficits and no sensory deficits noted Sensorium / Orientation: awake and alert Speech: speech normal Psych affect normal Assessment & Plan Assessment/Plan (1) Fracture of distal end of fibula: PLAN: Plan 1. Acute debility secondary to acute right distal fibular fracture-patient will be seen by PT and OT, I will have podiatry see the patient #2 orthostatic hypotension-etiology unclear, patient was on furosemide as an outpatient, this is being held here, patient was given IV fluids, I will start the patient on midodrine and attempt to elevate her blood pressure. #3 type 2 diabetes-patient's blood sugars will be monitored, sliding scale insulin will be administered as needed #4 hyperlipidemia-patient is on pravastatin Total clinical time spent by myself addressing the patient's medical issues, reviewing all of her data, and collaborating with patient's care team: 35 minutes Charges/Coding Visit Charges Inpatient E&M: 09742 Subs Hosp L2
--- NOTE | 2024-05-08 16:59 | PN.HOSP_ITS ---
Hospitalist Note The patient's case number is currently [id number] for peer to peer discussion. The peer to peer phone number is , push option 1, then option 2.
--- NOTE | 2024-05-08 16:59 | PCM.HOSP.N ---
Hospitalist Note The patient's case number is currently [id number] for peer to peer discussion. The peer to peer phone number is , push option 1, then option 2.
[2024-05-08] MEDS: Midodrine HCl 5 MG Tablet 10 MG PO (17:33)
[2024-05-08] MEDS: Pravastatin 20 MG Tablet PO (21:37)
[2024-05-08] MEDS: Gabapentin 300 MG Capsule 600 MG PO (21:37)
[2024-05-08 23:09] LABS: Bedside Glucose 96 mg/dL (74-106)
[2024-05-09 04:00] VITALS: BP 119/52; PULSE 60; RESP 18; TEMP 36.2; O2SAT 95
[2024-05-09] MEDS: Heparin Injection (Vial) 5,000 UNIT/ML VIAL 5000 UNIT SC ×3 (06:08→21:48)
[2024-05-09] MEDS: Acetaminophen 500 MG Tablet 1000 MG PO ×3 (06:08→21:48)
[2024-05-09 07:03] LABS: Bedside Glucose 92 mg/dL (74-106)
[2024-05-09] MEDS: oxyCODONE 5 MG Tablet PO ×2 (08:58→21:48)
[2024-05-09] MEDS: Hydroxychloroquine 200 MG Tablet PO (08:59)
[2024-05-09] MEDS: buPROPion (XL) 150 MG TABLET.XL PO (08:59)
[2024-05-09] MEDS: Gabapentin 300 MG Capsule PO ×2 (09:00→13:27)
[2024-05-09] MEDS: Midodrine HCl 5 MG Tablet 10 MG PO ×3 (09:00→16:44)
[2024-05-09] MEDS: Nystatin Powder 15gm Bottle 1 APPLIC TOPICAL ×2 (09:00→21:48)
[2024-05-09] MEDS: Sertraline 50 MG Tablet 12.5 MG PO (09:01)
[2024-05-09 10:00] VITALS: BP 112/71; PULSE 66; RESP 16; TEMP 36.7; O2SAT 97
--- NOTE | 2024-05-09 11:30 | PCM.PN.HOSP ---
Reason for Visit Reason for Visit: Diagnoses Syncope and collapse (05/07/24) Other fracture of upper and lower end of unspecified fibula, initial encounter for closed fracture (05/07/24) Subjective Subjective Patient was seen and examined today, her insurance is refusing to approve the patient for a long term facility at this time, a peer to peer will need to be performed on Saturday Objective Data Objective Data Vital Signs: Vital Signs Temp Pulse Resp BP Pulse Ox O2 Del Method 97.1 F L 60 18 119/52 L 95 Room Air 05/09/24 04:00 05/09/24 04:00 05/09/24 04:00 05/09/24 04:00 05/09/24 04:00 05/09/24 08:01 Oxygen Delivery Method Room Air Weight: 87 kg Body Mass Index (BMI) 31.8 Intake & Output: Intake and Output for Last 24 Hours 05/07/24 05/08/24 05/09/24 23:59 23:59 23:59 Intake Total 840 / 840 3480 / 3880 640 / 640 Output Total 1300 / 2300 1200 / 1200 Balance 840 / 340 2180 / 1580 -560 / -560 Lab / Micro Data 05/07/24 04:35 05/07/24 04:35 Labs: Laboratory Results - last 24 hr 05/08/24 11:39: POC Glucose 127 H 05/08/24 21:40: POC Glucose 96 05/09/24 06:07: POC Glucose 92 Physical Exam Narrative alert, oriented x3, no apparent distress and average body habitus General Appearance: cooperative, well kempt and well developed Orientation / Consciousness: awake, oriented to person, oriented to place and oriented to time HEENT normocephalic, head/scalp atraumatic and moist oral mucous membranes Eyes PERRL, EOMs intact bilaterally and conjunctivae normal Neck supple, no JVD, thyroid normal and no carotid bruits General: trachea midline Resp normal respiratory effort, no retractions, no use of accessory muscles and clear to auscultation bilaterally Auscultation: Negative for rales, rhonchi or wheezes Cardio regular rate, regular rhythm, S1 normal heart sound, S2 normal heart sound, no murmurs, no rub and no gallops GI normal to inspection, nondistended, normoactive bowel sounds, soft to palpation, non-tender and non-distended Extremity Extremity Narrative: Patient's right lower extremity has a walking boot in place, this was not removed for examination of the area Skin no rashes or lesions noted General Skin Exam: no breakdown Neuro oriented x3, CN's II-XII intact bilaterally, moves all extremities, no focal motor deficits and no sensory deficits noted Sensorium / Orientation: awake and alert Speech: speech normal Psych affect normal Assessment & Plan Assessment/Plan (1) Fracture of distal end of fibula: PLAN: Plan 1. Acute debility secondary to acute right distal fibular fracture-patient will be seen by PT and OT, podiatry will follow-up with the patient as an outpatient (Dr. 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
[2024-05-09 12:42] LABS: Bedside Glucose 147 mg/dL (74-106)
[2024-05-09 16:00] VITALS: BP 114/52; PULSE 60; RESP 16; TEMP 36.7; O2SAT 97
[2024-05-09 18:07] LABS: Bedside Glucose 95 mg/dL (74-106)
[2024-05-09 21:41] VITALS: BP 145/56; PULSE 51; RESP 16; TEMP 36.2; O2SAT 95
[2024-05-09] MEDS: Gabapentin 300 MG Capsule 600 MG PO (21:47)
[2024-05-09] MEDS: Pravastatin 20 MG Tablet PO (21:50)
[2024-05-09 22:41] LABS: Bedside Glucose 116 mg/dL (74-106)
[2024-05-10] MEDS: oxyCODONE 5 MG Tablet PO ×3 (03:16→21:21)
[2024-05-10 03:40] VITALS: BP 132/57; PULSE 54; RESP 18; TEMP 36.3; O2SAT 97
[2024-05-10] MEDS: Heparin Injection (Vial) 5,000 UNIT/ML VIAL 5000 UNIT SC ×3 (06:02→21:21)
[2024-05-10] MEDS: Acetaminophen 500 MG Tablet 1000 MG PO ×3 (06:03→21:21)
[2024-05-10 06:48] LABS: Bedside Glucose 84 mg/dL (74-106)
[2024-05-10 08:07] VITALS: BP 100/57; PULSE 58; RESP 15; TEMP 36.7; O2SAT 97
[2024-05-10] MEDS: Gabapentin 300 MG Capsule PO ×2 (08:41→11:22)
[2024-05-10] MEDS: Hydroxychloroquine 200 MG Tablet PO (08:43)
[2024-05-10] MEDS: Midodrine HCl 5 MG Tablet 10 MG PO ×3 (08:43→16:12)
[2024-05-10] MEDS: Sertraline 50 MG Tablet 12.5 MG PO (08:43)
[2024-05-10] MEDS: buPROPion (XL) 150 MG TABLET.XL PO (08:43)
[2024-05-10] MEDS: Pantoprazole Sodium 40 MG Tablet PO (08:43)
[2024-05-10] MEDS: Nystatin Powder 15gm Bottle 1 APPLIC TOPICAL ×2 (08:44→21:22)
[2024-05-10 11:32] LABS: Bedside Glucose 127 mg/dL (74-106)
--- NOTE | 2024-05-10 12:50 | PCM.PN.HOSP ---
Reason for Visit Reason for Visit: Diagnoses Syncope and collapse (05/07/24) Other fracture of upper and lower end of unspecified fibula, initial encounter for closed fracture (05/07/24) Subjective Subjective Patient was seen and examined today, she voices no complaints to this examiner except for generalized weakness. Again patient's insurance carrier would like a peer to peer before they approve the patient to go to an extended care facility. Objective Data Objective Data Vital Signs: Vital Signs Temp Pulse Resp BP Pulse Ox O2 Del Method 98.0 F 58 L 15 100/57 L 97 Room Air 05/10/24 08:07 05/10/24 08:07 05/10/24 08:07 05/10/24 08:07 05/10/24 08:07 05/10/24 08:07 Oxygen Delivery Method Room Air Weight: 87 kg Body Mass Index (BMI) 31.8 Intake & Output: Intake and Output for Last 24 Hours 05/08/24 05/09/24 05/10/24 23:59 23:59 23:59 Intake Total 3480 / 3880 1120 / 1120 490 / 490 Output Total 1300 / 2300 1200 / 1600 750 / 750 Balance 2180 / 1580 -80 / -480 -260 / -260 Lab / Micro Data 05/07/24 04:35 05/07/24 04:35 Labs: Laboratory Results - last 24 hr 05/09/24 16:42: POC Glucose 95 05/09/24 21:44: POC Glucose 116 H 05/10/24 05:56: POC Glucose 84 05/10/24 11:13: POC Glucose 127 H Physical Exam Narrative alert, oriented x3, no apparent distress and average body habitus General Appearance: cooperative, well kempt and well developed Orientation / Consciousness: awake, oriented to person, oriented to place and oriented to time HEENT normocephalic, head/scalp atraumatic and moist oral mucous membranes Eyes PERRL, EOMs intact bilaterally and conjunctivae normal Neck supple, no JVD, thyroid normal and no carotid bruits General: trachea midline Resp normal respiratory effort, no retractions, no use of accessory muscles and clear to auscultation bilaterally Auscultation: Negative for rales, rhonchi or wheezes Cardio regular rate, regular rhythm, S1 normal heart sound, S2 normal heart sound, no murmurs, no rub and no gallops GI normal to inspection, nondistended, normoactive bowel sounds, soft to palpation, non-tender and non-distended Extremity Extremity Narrative: Patient's right lower extremity has a walking boot in place, this was not removed for examination of the area Skin no rashes or lesions noted General Skin Exam: no breakdown Neuro oriented x3, CN's II-XII intact bilaterally, moves all extremities, no focal motor deficits and no sensory deficits noted Sensorium / Orientation: awake and alert Speech: speech normal Psych affect normal Assessment & Plan Assessment/Plan (1) Fracture of distal end of fibula: PLAN: Plan 1. Acute debility secondary to acute right distal fibular fracture-patient will be seen by PT and OT, podiatry will follow-up with the patient as an outpatient (Dr. Brooks), a peer to peer will need to be performed with the patient's insurance carrier tomorrow (05/11/2024)-contact information was included in a note on 05/08/2024. 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
[2024-05-10 14:00] VITALS: BP 122/47; PULSE 58; RESP 17; TEMP 36.8; O2SAT 98
[2024-05-10 16:31] LABS: Bedside Glucose 107 mg/dL (74-106)
[2024-05-10] MEDS: Gabapentin 300 MG Capsule 600 MG PO (21:20)
[2024-05-10] MEDS: Pravastatin 20 MG Tablet PO (21:21)
[2024-05-10] MEDS: 0.9% Saline Lock 10 ML Syringe IV (21:21)
[2024-05-10 21:23] VITALS: BP 144/37; PULSE 55; RESP 18; TEMP 36.2; O2SAT 97
[2024-05-10 22:08] LABS: Bedside Glucose 114 mg/dL (74-106)
[2024-05-11 03:40] VITALS: BP 121/82; PULSE 55; RESP 18; TEMP 36.1; O2SAT 95
[2024-05-11] MEDS: Heparin Injection (Vial) 5,000 UNIT/ML VIAL 5000 UNIT SC ×3 (06:08→22:19)
[2024-05-11] MEDS: Acetaminophen 500 MG Tablet 1000 MG PO ×3 (06:08→22:20)
[2024-05-11 06:34] LABS: Bedside Glucose 100 mg/dL (74-106)
[2024-05-11 07:53] VITALS: BP 124/62; PULSE 97; RESP 17; TEMP 36.6; O2SAT 95
[2024-05-11] MEDS: Gabapentin 300 MG Capsule PO ×2 (07:57→11:00)
[2024-05-11] MEDS: Nystatin Powder 15gm Bottle 1 APPLIC TOPICAL ×2 (07:58→22:20)
[2024-05-11] MEDS: Midodrine HCl 5 MG Tablet 10 MG PO ×3 (07:58→16:39)
[2024-05-11] MEDS: buPROPion (XL) 150 MG TABLET.XL PO (08:00)
[2024-05-11] MEDS: Hydroxychloroquine 200 MG Tablet PO (08:00)
[2024-05-11] MEDS: Senna Tablet 1 TABLET PO (08:00)
[2024-05-11] MEDS: Pantoprazole Sodium 40 MG Tablet PO (08:00)
[2024-05-11] MEDS: Sertraline 50 MG Tablet 12.5 MG PO (08:00)
[2024-05-11 11:07] LABS: Absolute Lymphocyte Count 1.36 X10^3/uL (0.83-4.51); Absolute Neutrophil Count 4.8 X10^3/uL (2.0-7.7); Basophil# 0.06 X10^3/uL; Basophil% 0.8 % (0-1); Eosinophil# 0.45 X10^3/uL; Eosinophils% 6.3 % (0-5); Hematocrit 37.3 % (37-47); Hemoglobin 11.4 g/dL (12.0-15.0); Lymphocyte # 1.36 X10^3/ul (0.83-4.51); Lymphocyte % 18.9 % (19-41); Mean Corp Hgb Conc 30.6 g/dL (32-36); Mean Corpuscular Hgb 26.6 pg (27.0-32.0); Mean Corpuscular Volume 86.9 fL (81-99); Mean Platelet Vol. 10.4 fl (6.2-12.0); Monocyte# 0.44 X10^3/uL; Monocyte% 6.1 % (0-10); NRBC Flagged by Analyzer 0 % (0-5); Neutrophil # 4.82 X10^3/uL (2.7-7.7); Neutrophil % 66.9 % (47-70); Platelet Count 260 K/mm3 (150-450); RBC Distribution Width CV 15.5 % (11.6-14.6); RBC Distribution Width SD 49.2 fl (35.1-43.9); Red Blood Count 4.29 M/mm3 (4.2-5.4); White Blood Count 7.2 K/mm3 (4.4-11.0)
[2024-05-11 11:25] LABS: Bedside Glucose 173 mg/dL (74-106)
[2024-05-11 12:07] LABS: Anion Gap 6 (5-15); BUN 18 mg/dL (7-18); BUN/Creat Ratio 15.3 RATIO (10-20); Calcium,Total 9.8 mg/dL (8.5-10.1); Chloride 112 mmol/L (98-107); Creatinine, Serum 1.18 mg/dL (0.55-1.02); EST Glomerular Filtration Rate 48 mL/min (>60); Est Glom Filt Rate - Afr Amer 59 mL/min (>60); Glucose 187 mg/dL (74-106); Potassium 4.4 mmol/L (3.5-5.1); Sodium Level 140 mmol/L (136-145)
--- NOTE | 2024-05-11 12:56 | CASEMGMT ---
ALVIN sent updated PT/OT notes to [place] via [facility]. Guillermina Brandon MOLD OPERATOR DAISY
--- NOTE | 2024-05-11 14:11 | PN_ITS ---
Subjective Subjective Patient seen and examined. Her granddaughter in law was by her bedside. Patient had no active complaints and denied any fever, chills, cough, chest pain, palpitations, dizziness, nausea, vomiting or any other systems. Review of systems is otehrewise negative. She has remained hemodynamically stable. Objective Data Objective Data Vital Signs: Vital Signs Temp Pulse Resp BP Pulse Ox O2 Del Method 97.9 F 97 17 124/62 H 95 Room Air 05/11/24 07:53 05/11/24 07:53 05/11/24 07:53 05/11/24 07:53 05/11/24 07:53 05/11/24 07:53 Oxygen Delivery Method Room Air Weight: 191 lb 12.835 oz Body Mass Index (BMI) 31.8 Intake & Output: Intake and Output for Last 24 Hours 05/09/24 05/10/24 05/11/24 23:59 23:59 23:59 Intake Total 1120 / 1120 860 / 860 120 / 120 Output Total 1200 / 1600 1075 / 1075 450 / 450 Balance -80 / -480 -215 / -215 -330 / -330 Lab / Micro Data 05/11/24 10:57 05/11/24 10:57 Labs: Laboratory Results - last 24 hr 05/10/24 16:11: POC Glucose 107 H 05/10/24 21:18: POC Glucose 114 H 05/11/24 06:06: POC Glucose 100 05/11/24 10:57: WBC 7.2, RBC 4.29, Hgb 11.4 L, Hct 37.3, MCV 86.9, MCH 26.6 L, M CHC 30.6 L, RDW Std Deviation 49.2 H, RDW Coeff of Vikram 15.5 H, Plt Count 260, MPV 10.4, Immature Gran % (Auto) 1.000 H, Neut % (Auto) 66.9, Lymph % (Auto) 18.9 L, [place] % (Auto) 6.1, Eos % (Auto) 6.3 H, Baso % (Auto) 0.8, Absolute Neuts (auto) 4.8, Absolute Lymphs (auto) 1.36, Nucleated RBC % 0, Sodium 140, Potassium 4.4, Chloride 112 H, Carbon Dioxide 23.0, Anion Gap 6, BUN 18, C reatinine 1.18 H, Estim Creat Clear Calc 49.70, Est GFR (MDRD) Af Amer 59 L, Est GFR (MDRD) Non-Af 48 L, BUN/Creatinine Ratio 15.3, Glucose 187 H, Calcium 9.8 05/11/24 11:02: POC Glucose 173 H Physical Exam Const alert, oriented x3, no apparent distress and well nourished General Appearance: cooperative and well developed HEENT normocephalic, head/scalp atraumatic, moist oral mucous membranes and oropharynx normal Eyes PERRL and EOMs intact bilaterally Neck no lymphadenopathy and supple Lymph Lymphatic: no lymphadenopathy noted and no lymphedema noted Resp normal respiratory effort, normal air movement and clear to auscultation bilaterally Cardio regular rate, regular rhythm, S1 normal heart sound, S2 normal heart sound and no murmurs GI normal to inspection, nondistended, normoactive bowel sounds, soft to palpation, non-tender and non-distended Extremity Extremity Narrative: right foot wrapped in bandage, and in right orthopedic walking boot. Skin Skin Narrative: as under extremity Neuro CN's II-XII intact bilaterally, no focal motor deficits and no sensory deficits noted Coordination / Balance: [id number] test normal Motor Exam: general weakness Psych thought process normal, cooperative and affect normal Appearance: appropriate Assessment & Plan Assessment/Plan (1) Fracture of distal end of fibula: PLAN: Plan #Debility due to RLE distal fibular fracture * PT/OT on board. Fall precautions * podiatry to follow up on outpatient basis. * PO tylenol and pO oxycodone prn for pain * #orthostatic hypotension: lasix on hold. hydrated with IVF. NOw on midodrine #Type 2 diabetes mellitus * On insulin sliding scale. Accu-Cheks ACHS. Metformin on hold #Probable UTI * Urinalysis on admission showed 3+ bacteria. She also had 50-100 WBC * it does not seem she was initiated on treatment for this * will get urine cultures and place on IV ceftriaxone * she does have urinary symptoms and does have a ruiz catheter in situ. * will attempt voiding trial as well today * #Urinary retention * has ruiz catheter in situ * will attempt voiding trial and if unsuccessful, patient wants to try the Purewick catheter instead of have another Ruiz catheter inserted. * #Chronic back pain: * on oxycodone prn. was on tramadol at home but this was stopped as she was also on bupropion and the synergistic effect can lower the seizure threshold. 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 Benign. Will monitor. #Anxiety and depression: on sertraline and bupropion #HFpEF: has known EF of 70% from echo in 2020. Not in exacarbation. On on lasix which is now held due to orthostatic hypotension FRANSISCA: Resolved. Creatinine was 2.03 on admission and peaked at 2.48. Now down to 1.18. #GERD: On PPI #Rheumatoid arthritis: On hydroxychloroquine DVT prophylaxis: Lovenox Disposition: * Patient wanting placement. Peer to peer was attempted today ([phone]) and voicemail let with patient's member ID and reference number as requested for them to call me back. youth support worker Guillermina also informed and also tried calling to set up the peer to peer and also left a voicemail. Charges/Coding Visit Charges Inpatient E&M: 69482 Subs Hosp L2
--- NOTE | 2024-05-11 14:36 | CASEMGMT ---
Physician called peer to peer line and had to leave a voice mail with her information. Physician asked if SW could call and arrange the peer to peer. SW called and was on hold. However, there is an option to leave the physician's name and phone number. SW left Dr Lance's name, phone number, credentials, 3 separate times she is available, patient's name, date of , ID number, and the reference number. Guillermina Brandon MSW DAISY
[2024-05-11 15:18] VITALS: BP 123/68; PULSE 61; RESP 17; TEMP 36.9; O2SAT 96
[2024-05-11] MEDS: Ceftriaxone 1 GM/50 ML BAG IV (15:49)
[2024-05-11] MEDS: 0.9% Saline Lock 10 ML Syringe IV (15:50)
[2024-05-11 16:57] LABS: Bedside Glucose 119 mg/dL (74-106)
[2024-05-11] MEDS: 0.9% Normal Saline (1000mL) 1,000 ML 125 ML IV (17:36)
[2024-05-11 21:18] VITALS: BP 147/58; PULSE 64; RESP 16; TEMP 36.8; O2SAT 95
[2024-05-11] MEDS: Pravastatin 20 MG Tablet PO (22:20)
[2024-05-11] MEDS: Gabapentin 300 MG Capsule 600 MG PO (22:20)
[2024-05-11 22:45] LABS: Bedside Glucose 144 mg/dL (74-106)
[2024-05-12 02:17] VITALS: BP 124/54; PULSE 60; RESP 16; TEMP 36.6; O2SAT 98
[2024-05-12] MEDS: 0.9% Normal Saline (1000mL) 1,000 ML 125 ML IV (02:21)
[2024-05-12] MEDS: oxyCODONE 5 MG Tablet PO ×2 (02:21→09:21)
[2024-05-12] MEDS: Acetaminophen 500 MG Tablet 1000 MG PO ×3 (06:32→21:31)
[2024-05-12] MEDS: Heparin Injection (Vial) 5,000 UNIT/ML VIAL 5000 UNIT SC ×3 (06:32→21:30)
[2024-05-12] MEDS: 0.9% Saline Lock 10 ML Syringe IV ×2 (06:33→21:32)
[2024-05-12 06:54] LABS: Bedside Glucose 114 mg/dL (74-106)
[2024-05-12 08:00] LABS: Absolute Lymphocyte Count 1.76 X10^3/uL (0.83-4.51); Absolute Neutrophil Count 4.7 X10^3/uL (2.0-7.7); Basophil# 0.06 X10^3/uL; Basophil% 0.8 % (0-1); Eosinophil# 0.42 X10^3/uL; Eosinophils% 5.5 % (0-5); Hematocrit 35.5 % (37-47); Hemoglobin 10.6 g/dL (12.0-15.0); Lymphocyte # 1.76 X10^3/ul (0.83-4.51); Lymphocyte % 23.1 % (19-41); Mean Corp Hgb Conc 29.9 g/dL (32-36); Mean Corpuscular Hgb 26.2 pg (27.0-32.0); Mean Corpuscular Volume 87.7 fL (81-99); Mean Platelet Vol. 10.8 fl (6.2-12.0); Monocyte# 0.57 X10^3/uL; Monocyte% 7.5 % (0-10); NRBC Flagged by Analyzer 0 % (0-5); Neutrophil # 4.69 X10^3/uL (2.7-7.7); Neutrophil % 61.7 % (47-70); Platelet Count 251 K/mm3 (150-450); RBC Distribution Width CV 15.5 % (11.6-14.6); RBC Distribution Width SD 49.7 fl (35.1-43.9); Red Blood Count 4.05 M/mm3 (4.2-5.4); White Blood Count 7.6 K/mm3 (4.4-11.0)
[2024-05-12 08:15] VITALS: BP 124/54; BP 129/54; PULSE 55; PULSE 60; RESP 16; RESP 17; TEMP 36.6; TEMP 36.7; O2SAT 98
[2024-05-12] MEDS: Sertraline 50 MG Tablet 12.5 MG PO (08:42)
[2024-05-12] MEDS: Gabapentin 300 MG Capsule PO ×2 (08:43→11:45)
[2024-05-12] MEDS: Pantoprazole Sodium 40 MG Tablet PO (08:43)
[2024-05-12] MEDS: buPROPion (XL) 150 MG TABLET.XL PO (08:43)
[2024-05-12] MEDS: Hydroxychloroquine 200 MG Tablet PO (08:43)
[2024-05-12] MEDS: Midodrine HCl 5 MG Tablet 10 MG PO ×3 (08:43→16:23)
[2024-05-12] MEDS: Ceftriaxone 1 GM/50 ML BAG IV (08:44)
[2024-05-12] MEDS: Nystatin Powder 15gm Bottle 1 APPLIC TOPICAL ×2 (08:44→21:31)
[2024-05-12 08:59] LABS: Anion Gap 8 (5-15); BUN 17 mg/dL (7-18); BUN/Creat Ratio 16.3 RATIO (10-20); Calcium,Total 9.3 mg/dL (8.5-10.1); Chloride 112 mmol/L (98-107); Creatinine, Serum 1.04 mg/dL (0.55-1.02); EST Glomerular Filtration Rate 56 mL/min (>60); Est Glom Filt Rate - Afr Amer 68 mL/min (>60); Estimated Creatinine Clearance 56.39 ml/min; Glucose 116 mg/dL (74-106); Potassium 4.1 mmol/L (3.5-5.1); Sodium Level 140 mmol/L (136-145)
[2024-05-12 12:03] LABS: Bedside Glucose 136 mg/dL (74-106)
--- NOTE | 2024-05-12 13:48 | CASEMGMT ---
SW nor physician have heard anything from insurance despite 2 messages being left yesterday. ALVIN spoke with Director of Case management and she will check into it. SW met with patient. SW explained how the insurance approval process works and what a peer to peer is. SW explained where we currently are with her particular case. Patient thanked ALVIN for checking in with her and updating her. Guillermina VILLA
[2024-05-12 14:00] VITALS: BP 142/70; PULSE 54; RESP 17; TEMP 36.7; O2SAT 98
--- NOTE | 2024-05-12 14:08 | PN_ITS ---
Subjective Subjective Patient seen and examined. She had no active complaints. She had an uneventful night. Review of systems otherwise negative. I informed dad that I did attempt to do the peer to peer yesterday but was unsuccessful and had to leave a message with insurance company. The social media marketer also called and left a message with both still awaiting callback. Objective Data Objective Data Vital Signs: Vital Signs Temp Pulse Resp BP Pulse Ox O2 Del Method 97.8 F 60 16 124/54 H 98 Room Air 05/12/24 08:15 05/12/24 08:15 05/12/24 08:15 05/12/24 08:15 05/12/24 08:15 05/12/24 08:15 Oxygen Delivery Method Room Air Weight: 191 lb 12.835 oz Body Mass Index (BMI) 31.8 Intake & Output: Intake and Output for Last 24 Hours 05/10/24 05/11/24 05/12/24 23:59 23:59 23:59 Intake Total 860 / 860 830 / 830 2410 / 2410 Output Total 1075 / 1075 750 / 1050 750 / 750 Balance -215 / -215 80 / -220 1660 / 1660 Lab / Micro Data 05/12/24 07:02 05/12/24 07:02 Labs: Laboratory Results - last 24 hr 05/11/24 16:38: POC Glucose 119 H 05/11/24 22:16: POC Glucose 144 H 05/12/24 06:30: POC Glucose 114 H 05/12/24 07:02: WBC 7.6, RBC 4.05 L, Hgb 10.6 L, Hct 35.5 L, MCV 87.7, MCH 26.2 L, MCHC 29.9 L, RDW Std Deviation 49.7 H, RDW Coeff of Vikram 15.5 H, Plt Count 251, MPV 10.8, Immature Gran % (Auto) 1.400 H, Neut % (Auto) 61.7, Lymph % (Auto) 23.1, [place] % (Auto) 7.5, Eos % (Auto) 5.5 H, Baso % (Auto) 0.8, Absolute Neuts (auto) 4.7, Absolute Lymphs (auto) 1.76, Nucleated RBC % 0, Sodium 140, Potassium 4.1, Chloride 112 H, Carbon Dioxide 20.0 L, Anion Gap 8, BUN 17, C reatinine 1.04 H, Estim Creat Clear Calc 56.39, Est GFR (MDRD) Af Amer 68, Est GFR (MDRD) Non-Af 56 L, BUN/Creatinine Ratio 16.3, Glucose 116 H, Calcium 9.3 05/12/24 11:42: POC Glucose 136 H Micro: Microbiology 05/11/24 18:17 Urine, Random Urine Culture - Preliminary GNR lactose computer support analyst Physical Exam Const alert, oriented x3, no apparent distress, average body habitus and well nourished General Appearance: cooperative and comfortable Orientation / Consciousness: awake, oriented to person, oriented to place and oriented to time HEENT normocephalic, head/scalp atraumatic, hearing grossly normal bilaterally, nasal mucous membranes and turbinates normal, moist oral mucous membranes and oropharynx normal Eyes PERRL, EOMs intact bilaterally and conjunctivae normal Neck full ROM, no lymphadenopathy, supple, no JVD, thyroid normal and no carotid bruits General: trachea midline Lymph Lymphatic: no lymphadenopathy noted and no lymphedema noted Chest inspection of chest normal Resp normal respiratory effort, normal air movement, no retractions, no use of accessory muscles and clear to auscultation bilaterally Resp Narrative: on room air. Auscultation: Negative for rales, rhonchi or wheezes Cardio regular rate, regular rhythm, S1 normal heart sound, S2 normal heart sound, no murmurs, no rub, no gallops and peripheral pulses 2+ throughout GI normal to inspection, nondistended, normoactive bowel sounds, soft to palpation, non-tender and non-distended Back/Spine normal ROM Extremity Extremity Narrative: right foot wrapped in bandage, and in right orthopedic walking boot. Skin no rashes or lesions noted Skin Narrative: as under extremity General Skin Exam: no breakdown Neuro oriented x3, CN's II-XII intact bilaterally, moves all extremities, no focal motor deficits and no sensory deficits noted Sensorium / Orientation: awake and alert Coordination / Balance: [id number] test normal Speech: speech normal Motor Exam: strength 5/5 throughout and general weakness Psych mental status grossly normal, thought process normal, cooperative and affect normal Appearance: appropriate Assessment & Plan Assessment/Plan (1) Fracture of distal end of fibula: PLAN: Plan #Debility due to RLE distal fibular fracture * PT/OT on board. Fall precautions * podiatry to follow up on outpatient basis. * PO tylenol and pO oxycodone prn for pain * #orthostatic hypotension: lasix on hold. hydrated with IVF. NOw on midodrine #Type 2 diabetes mellitus * On insulin sliding scale. Accu-Cheks ACHS. Metformin on hold #Probable UTI * Urinalysis on admission showed 3+ bacteria. She also had 50-100 WBC * it does not seem she was initiated on treatment for this * will get urine cultures and place on IV ceftriaxone * Urine cultures growing gram-negative kobi lactose computer support analyst presumably E. coli. Will await speciation. Continue ceftriaxone for now. * #Urinary retention * Pierce catheter was removed yesterday and patient had a successful voiding trial. * will monitor * #Chronic back pain: * on oxycodone prn. was on tramadol at home but this was stopped as she was also on bupropion and the synergistic effect can lower the seizure threshold. 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 Benign. Will monitor. #Anxiety and depression: on sertraline and bupropion #HFpEF: has known EF of 70% from echo in 2020. Not in exacerbation. On on lasix which is now held due to orthostatic hypotension FRANSICSA: Resolved. #GERD: On PPI #Rheumatoid arthritis: On hydroxychloroquine DVT prophylaxis: Lovenox Disposition: * Patient wanting placement. Peer to peer was attempted yesterday. ([phone]) and voicemail let with patient's member ID and reference number as requested for them to call me back. progress worker Guillermina also informed and also tried calling to set up the peer to peer and also left a voicemail. We are still awaiting callback from the insurance company. process worker informed today and she said her division merchandise manager will follow-up on this and escalate this afternoon. Charges/Coding Visit Charges Inpatient E&M: 53299 Subs Hosp L2
--- NOTE | 2024-05-12 14:36 | CASEMGMT ---
ALVIN called [facility] to leave another message. An individual picked up. ALVIN explained situation. Apparently they had Dr Lance's number off by one number. They had left a message, but it was the wrong number. It was arranged for physician to do peer to peer today at [phone]. ALVIN notified physician and gave her all of the necessary numbers she will need to call for peer to peer. ALVIN then updated patient as well. Guillermina Brandon CASH REGISTER BALANCER DAISY
--- NOTE | 2024-05-12 16:15 | CASEMGMT ---
Physician was unable to call [facility] [facility] at 330 for peer to peer. Physician did try at 4p, but the physicians at the insurance company all left for the day and this was the last day for peer to peer. SW will talk with patient about going home or if she and her family would want to do an appeal. Guillermian Brandon DIRECTOR OF OPERATIONS FOR THERAPY DAISY
[2024-05-12 16:45] LABS: Bedside Glucose 128 mg/dL (74-106)
[2024-05-12 21:15] VITALS: BP 140/57; PULSE 53; RESP 16; TEMP 36.6; O2SAT 97
[2024-05-12] MEDS: Gabapentin 300 MG Capsule 600 MG PO (21:31)
[2024-05-12] MEDS: Pravastatin 20 MG Tablet PO (21:31)
[2024-05-12] MEDS: MELATONIN 3 MG TABLET PO (21:37)
[2024-05-12 21:55] LABS: Bedside Glucose 120 mg/dL (74-106)
[2024-05-13 03:14] VITALS: BP 111/51; PULSE 52; RESP 16; TEMP 36.4; O2SAT 97
[2024-05-13 04:59] LABS: Absolute Lymphocyte Count 1.83 X10^3/uL (0.83-4.51); Absolute Neutrophil Count 4.8 X10^3/uL (2.0-7.7); Basophil# 0.06 X10^3/uL; Basophil% 0.8 % (0-1); Eosinophil# 0.45 X10^3/uL; Eosinophils% 5.8 % (0-5); Hematocrit 36.6 % (37-47); Hemoglobin 10.8 g/dL (12.0-15.0); Lymphocyte # 1.83 X10^3/ul (0.83-4.51); Lymphocyte % 23.6 % (19-41); Mean Corp Hgb Conc 29.5 g/dL (32-36); Mean Corpuscular Hgb 26.2 pg (27.0-32.0); Mean Corpuscular Volume 88.8 fL (81-99); Mean Platelet Vol. 10.4 fl (6.2-12.0); Monocyte# 0.51 X10^3/uL; Monocyte% 6.6 % (0-10); NRBC Flagged by Analyzer 0 % (0-5); Neutrophil # 4.78 X10^3/uL (2.7-7.7); Neutrophil % 61.5 % (47-70); Platelet Count 272 K/mm3 (150-450); RBC Distribution Width CV 15.7 % (11.6-14.6); RBC Distribution Width SD 50.4 fl (35.1-43.9); Red Blood Count 4.12 M/mm3 (4.2-5.4); White Blood Count 7.8 K/mm3 (4.4-11.0)
[2024-05-13 05:27] LABS: Anion Gap 7 (5-15); BUN 17 mg/dL (7-18); Calcium,Total 9.5 mg/dL (8.5-10.1); Chloride 113 mmol/L (98-107); Creatinine, Serum 1.21 mg/dL (0.55-1.02); EST Glomerular Filtration Rate 47 mL/min (>60); Est Glom Filt Rate - Afr Amer 57 mL/min (>60); Estimated Creatinine Clearance 48.47 ml/min; Glucose 143 mg/dL (74-106); Potassium 4.5 mmol/L (3.5-5.1); Sodium Level 142 mmol/L (136-145)
[2024-05-13] MEDS: Acetaminophen 500 MG Tablet 1000 MG PO ×3 (06:37→21:11)
[2024-05-13] MEDS: Heparin Injection (Vial) 5,000 UNIT/ML VIAL 5000 UNIT SC ×3 (06:37→21:10)
[2024-05-13 07:00] LABS: Bedside Glucose 126 mg/dL (74-106)
[2024-05-13 08:36] VITALS: BP 124/71; PULSE 88; RESP 16; TEMP 36.6; O2SAT 98
[2024-05-13] MEDS: Gabapentin 300 MG Capsule PO ×2 (08:38→13:02)
[2024-05-13] MEDS: Midodrine HCl 5 MG Tablet 10 MG PO ×2 (08:38→13:02)
[2024-05-13] MEDS: Hydroxychloroquine 200 MG Tablet PO (08:38)
[2024-05-13] MEDS: Sertraline 50 MG Tablet 12.5 MG PO (08:39)
[2024-05-13] MEDS: buPROPion (XL) 150 MG TABLET.XL PO (08:39)
[2024-05-13] MEDS: Pantoprazole Sodium 40 MG Tablet PO (08:39)
[2024-05-13] MEDS: Nystatin Powder 15gm Bottle 1 APPLIC TOPICAL ×2 (08:40→21:11)
--- NOTE | 2024-05-13 09:41 | CASEMGMT ---
[employer] sent a message that patient has been denied. ALVIN was told to call opt 1 and then opt 2 to do an appeal. ALVIN called this number and spoke with Sandhya. Sandhya told SW in order to do a fast appeal SW needs to send clinicals to [phone] and make sure it is written on fax sheet that it is a fast appeal request. ALVIN faxed all clinicals to the fax number given and made sure to write in several places that it is a fast appeal request. ALVIN spoke with patient. She already spoke with physician so she is aware the peer to peer was not done. ALVIN notified patient that SW just faxed clinicals for a fast appeal. Patient thanked ALVIN for updating her and for everything that [facility] has done to help her. Guillermina VILLA
[2024-05-13] MEDS: 0.9% Saline Lock 10 ML Syringe IV (10:34)
[2024-05-13] MEDS: oxyCODONE 5 MG Tablet PO ×3 (10:34→23:12)
[2024-05-13] MEDS: Ceftriaxone 1 GM/50 ML BAG IV (10:35)
[2024-05-13 10:38] VITALS: BP 105/58
--- NOTE | 2024-05-13 12:13 | CASEMGMT ---
SW received a voice mailfrom M[employer] and they said the fast appeal request is invalid as SW needs to have patient sign an authorized rep form giving SW permission to do the appeal for patient. SW went to patient's room and went over the authorized rep form. Patient and SW signed it. SW re-faxed clinicals and the authorized rep form to MMO. Guillermina VILLA
[2024-05-13 13:11] VITALS: BP 135/57; PULSE 60; RESP 16; TEMP 36.3; O2SAT 97
[2024-05-13 13:49] LABS: Bedside Glucose 116 mg/dL (74-106)
--- NOTE | 2024-05-13 15:10 | PN_ITS ---
Subjective Subjective Patient seen and examined. She had no complaints. Review systems otherwise negative. She has remained hemodynamically stable. She is awaiting placement. Objective Data Objective Data Vital Signs: Vital Signs Temp Pulse Resp BP Pulse Ox O2 Del Method 97.3 F L 60 16 135/57 H 97 Room Air 05/13/24 13:11 05/13/24 13:11 05/13/24 13:11 05/13/24 13:11 05/13/24 13:11 05/13/24 13:30 Oxygen Delivery Method Room Air Weight: 191 lb 12.835 oz Body Mass Index (BMI) 31.8 Intake & Output: Intake and Output for Last 24 Hours 05/11/24 05/12/24 05/13/24 23:59 23:59 23:59 Intake Total 830 / 830 2530 / 2530 50 / 50 Output Total 750 / 1050 750 / 750 750 / 750 Balance 80 / -220 1780 / 1780 -700 / -700 Lab / Micro Data 05/13/24 04:09 05/13/24 04:09 Labs: Laboratory Results - last 24 hr 05/12/24 16:22: POC Glucose 128 H 05/12/24 21:24: POC Glucose 120 H 05/13/24 04:09: WBC 7.8, RBC 4.12 L, Hgb 10.8 L, Hct 36.6 L, MCV 88.8, MCH 26.2 L, MCHC 29.5 L, RDW Std Deviation 50.4 H, RDW Coeff of Vikram 15.7 H, Plt Count 272, MPV 10.4, Immature Gran % (Auto) 1.700 H, Neut % (Auto) 61.5, Lymph % (Auto) 23.6, Ashe % (Auto) 6.6, Eos % (Auto) 5.8 H, Baso % (Auto) 0.8, Absolute Neuts (auto) 4.8, Absolute Lymphs (auto) 1.83, Nucleated RBC % 0, Sodium 142, Potassium 4.5, Chloride 113 H, Carbon Dioxide 22.0, Anion Gap 7, BUN 17, C reatinine 1.21 H, Estim Creat Clear Calc 48.47, Est GFR (MDRD) Af Amer 57 L, Est GFR (MDRD) Non-Af 47 L, BUN/Creatinine Ratio 14.0, Glucose 143 H, Calcium 9.5 05/13/24 06:35: POC Glucose 126 H 05/13/24 13:08: POC Glucose 116 H Micro: Microbiology 05/11/24 18:17 Urine, Random Urine Culture - Final Escherichia coli Physical Exam Const alert, oriented x3, no apparent distress and well nourished General Appearance: cooperative, comfortable, well kempt and well developed Orientation / Consciousness: awake, oriented to person, oriented to place and oriented to time HEENT normocephalic, head/scalp atraumatic, hearing grossly normal bilaterally, nasal mucous membranes and turbinates normal, moist oral mucous membranes and oropharynx normal Eyes PERRL, EOMs intact bilaterally and conjunctivae normal Neck full ROM, no lymphadenopathy, supple, no JVD, thyroid normal and no carotid bruits General: trachea midline Lymph Lymphatic: no lymphadenopathy noted and no lymphedema noted Chest inspection of chest normal Resp normal respiratory effort, normal air movement, no retractions, no use of accessory muscles and clear to auscultation bilaterally Resp Narrative: on room air. Cardio regular rate, regular rhythm, S1 normal heart sound and S2 normal heart sound GI normal to inspection, nondistended, normoactive bowel sounds, soft to palpation, non-tender and non-distended Back/Spine no CVA tenderness, normal ROM and normal to inspection Extremity Extremity Narrative: right foot wrapped in bandage, and in right orthopedic walking boot. Skin no rashes or lesions noted Skin Narrative: as under extremity General Skin Exam: no breakdown Neuro oriented x3, CN's II-XII intact bilaterally, moves all extremities, no focal motor deficits and no sensory deficits noted Sensorium / Orientation: awake and alert Coordination / Balance: [id number]-[id number]-[id number] test normal Speech: speech normal Motor Exam: strength 5/5 throughout and general weakness Psych mental status grossly normal, thought process normal, cooperative and affect normal Appearance: appropriate Assessment & Plan Assessment/Plan (1) Fracture of distal end of fibula: PLAN: Plan #Debility due to RLE distal fibular fracture * PT/OT on board. Fall precautions * podiatry to follow up on outpatient basis. * PO tylenol and pO oxycodone prn for pain * #orthostatic hypotension: lasix on hold. hydrated with IVF. NOw on midodrine #Type 2 diabetes mellitus * On insulin sliding scale. Accu-Cheks ACHS. Metformin on hold #Probable UTI * Urinalysis on admission showed 3+ bacteria. She also had 50-100 WBC * it does not seem she was initiated on treatment for this * will get urine cultures and place on IV ceftriaxone * Urine cultures growing gram-negative kobi lactose treating and pumping supervisor presumably E. coli. Will await speciation. Continue ceftriaxone for now. * #Urinary retention * Pierce catheter was removed yesterday and patient had a successful voiding trial. * will monitor * #Chronic back pain: * on oxycodone prn. was on tramadol at home but this was stopped as she was also on bupropion and the synergistic effect can lower the seizure threshold. 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 Benign. Will monitor. #Anxiety and depression: on sertraline and bupropion #HFpEF: has known EF of 70% from echo in 2020. Not in exacerbation. On on lasix which is now held due to orthostatic hypotension FRANSISCA: Resolved. #GERD: On PPI #Rheumatoid arthritis: On hydroxychloroquine DVT prophylaxis: Lovenox Disposition: * Awaiting placement. Charges/Coding Visit Charges Inpatient E&M: 61424 Subs Hosp L2
[2024-05-13 17:00] VITALS: BP 156/55; PULSE 64; RESP 18; TEMP 37.2; O2SAT 95
[2024-05-13 19:08] LABS: Bedside Glucose 120 mg/dL (74-106)
[2024-05-13] MEDS: Gabapentin 300 MG Capsule 600 MG PO (21:11)
[2024-05-13] MEDS: Pravastatin 20 MG Tablet PO (21:12)
[2024-05-13 23:00] VITALS: BP 129/61; PULSE 61; RESP 14; TEMP 36.9; O2SAT 96
[2024-05-14] VITALS (11 sets, daily range): BP systolic 118–136; BP diastolic 46–57; PULSE 58–87; RESP 16–18; TEMP 36.4–36.9; O2SAT 96–99
[2024-05-14] MEDS: Acetaminophen 500 MG Tablet 1000 MG PO ×3 (05:36→21:59)
[2024-05-14] MEDS: Heparin Injection (Vial) 5,000 UNIT/ML VIAL 5000 UNIT SC ×3 (05:37→21:59)
[2024-05-14 06:03] LABS: Bedside Glucose 108 mg/dL (74-106)
[2024-05-14 07:43] LABS: Absolute Lymphocyte Count 1.79 X10^3/uL (0.83-4.51); Absolute Neutrophil Count 5.2 X10^3/uL (2.0-7.7); Basophil# 0.05 X10^3/uL; Basophil% 0.6 % (0-1); Eosinophil# 0.38 X10^3/uL; Eosinophils% 4.6 % (0-5); Hematocrit 35.5 % (37-47); Hemoglobin 10.5 g/dL (12.0-15.0); Lymphocyte # 1.79 X10^3/ul (0.83-4.51); Lymphocyte % 21.9 % (19-41); Mean Corp Hgb Conc 29.6 g/dL (32-36); Mean Corpuscular Hgb 25.8 pg (27.0-32.0); Mean Corpuscular Volume 87.2 fL (81-99); Monocyte# 0.61 X10^3/uL; Monocyte% 7.5 % (0-10); NRBC Flagged by Analyzer 0 % (0-5); Neutrophil % 63.6 % (47-70); Platelet Count 291 K/mm3 (150-450); RBC Distribution Width CV 15.7 % (11.6-14.6); RBC Distribution Width SD 49.4 fl (35.1-43.9); Red Blood Count 4.07 M/mm3 (4.2-5.4); White Blood Count 8.2 K/mm3 (4.4-11.0)
[2024-05-14 08:03] LABS: Anion Gap 7 (5-15); BUN 17 mg/dL (7-18); Calcium,Total 9.7 mg/dL (8.5-10.1); Chloride 112 mmol/L (98-107); Creatinine, Serum 1.13 mg/dL (0.55-1.02); EST Glomerular Filtration Rate 51 mL/min (>60); Est Glom Filt Rate - Afr Amer 62 mL/min (>60); Glucose 119 mg/dL (74-106); Potassium 4.3 mmol/L (3.5-5.1); Sodium Level 140 mmol/L (136-145)
[2024-05-14] MEDS: Midodrine HCl 5 MG Tablet 10 MG PO ×3 (09:09→16:23)
[2024-05-14] MEDS: Gabapentin 300 MG Capsule PO ×2 (09:09→11:45)
[2024-05-14] MEDS: Nystatin Powder 15gm Bottle 1 APPLIC TOPICAL ×2 (09:10→22:11)
[2024-05-14] MEDS: Hydroxychloroquine 200 MG Tablet PO (09:10)
[2024-05-14] MEDS: Sertraline 50 MG Tablet 12.5 MG PO (09:11)
[2024-05-14] MEDS: Pantoprazole Sodium 40 MG Tablet PO (09:12)
[2024-05-14] MEDS: Ceftriaxone 1 GM/50 ML BAG IV (09:12)
[2024-05-14] MEDS: buPROPion (XL) 150 MG TABLET.XL PO (09:12)
[2024-05-14] MEDS: 0.9% Saline Lock 10 ML Syringe IV (09:16)
[2024-05-14] MEDS: Insulin Lispro 100 UNIT/ML INSULN.PEN SC ×3 (12:20→22:07)
[2024-05-14 12:45] LABS: Bedside Glucose 181 mg/dL (74-106)
--- NOTE | 2024-05-14 12:47 | PN_ITS ---
Subjective Subjective Patient seen and examined. She had no active complaints. Review of symptoms otherwise negative. She is still awaiting placement. She has filed an appeal with insurance company. Objective Data Objective Data Vital Signs: Vital Signs Temp Pulse Resp BP Pulse Ox O2 Del Method 97.6 F L 87 16 132/46 H 96 Room Air 05/14/24 08:00 05/14/24 08:00 05/14/24 08:00 05/14/24 11:45 05/14/24 08:00 05/14/24 10:00 Oxygen Delivery Method Room Air Weight: 191 lb 12.835 oz Body Mass Index (BMI) 31.8 Intake & Output: Intake and Output for Last 24 Hours 05/12/24 05/13/24 05/14/24 23:59 23:59 23:59 Intake Total 2530 / 2530 350 / 350 570 / 570 Output Total 750 / 750 750 / 750 Balance 1780 / 1780 -400 / -400 570 / 570 Lab / Micro Data 05/14/24 07:15 05/14/24 07:15 Labs: Laboratory Results - last 24 hr 05/13/24 13:08: POC Glucose 116 H 05/13/24 17:05: POC Glucose 120 H 05/14/24 05:42: POC Glucose 108 H 05/14/24 07:15: WBC 8.2, RBC 4.07 L, Hgb 10.5 L, Hct 35.5 L, MCV 87.2, MCH 25.8 L, MCHC 29.6 L, RDW Std Deviation 49.4 H, RDW Coeff of Vikram 15.7 H, Plt Count 291, MPV 10.0, Immature Gran % (Auto) 1.800 H, Neut % (Auto) 63.6, Lymph % (Auto) 21.9, [place] % (Auto) 7.5, Eos % (Auto) 4.6, Baso % (Auto) 0.6, Absolute Neuts (auto) 5.2, Absolute Lymphs (auto) 1.79, Nucleated RBC % 0, Sodium 140, Potassium 4.3, Chloride 112 H, Carbon Dioxide 21.0, Anion Gap 7, BUN 17, C reatinine 1.13 H, Estim Creat Clear Calc 51.90, Est GFR (MDRD) Af Amer 62, Est GFR (MDRD) Non-Af 51 L, BUN/Creatinine Ratio 15.0, Glucose 119 H, Calcium 9.7 05/14/24 11:48: POC Glucose 181 H Micro: Microbiology 05/11/24 18:17 Urine, Random Urine Culture - Final Escherichia coli Physical Exam Const alert, oriented x3 and no apparent distress General Appearance: cooperative and comfortable Orientation / Consciousness: awake, oriented to person, oriented to place and oriented to time HEENT normocephalic, head/scalp atraumatic, hearing grossly normal bilaterally, nasal mucous membranes and turbinates normal, moist oral mucous membranes and oropharynx normal Eyes PERRL, EOMs intact bilaterally and conjunctivae normal Neck full ROM, no lymphadenopathy, supple, no JVD, thyroid normal and no carotid bruits General: trachea midline Lymph Lymphatic: no lymphadenopathy noted and no lymphedema noted Chest inspection of chest normal Resp normal respiratory effort, normal air movement, no retractions, no use of accessory muscles and clear to auscultation bilaterally Auscultation: Negative for rales, rhonchi or wheezes Cardio regular rate, regular rhythm, S1 normal heart sound, S2 normal heart sound, no murmurs, no rub, no gallops and peripheral pulses 2+ throughout GI normal to inspection, nondistended, normoactive bowel sounds, soft to palpation, non-tender and non-distended Back/Spine no CVA tenderness, normal ROM and normal to inspection Extremity normal capillary refill, no clubbing, cyanosis or edema and no calf tenderness Extremity Narrative: right foot wrapped in bandage, and in right orthopedic walking boot. Skin no rashes or lesions noted Skin Narrative: as under extremity General Skin Exam: no breakdown Neuro oriented x3, CN's II-XII intact bilaterally, moves all extremities, no focal motor deficits and no sensory deficits noted Sensorium / Orientation: awake and alert Coordination / Balance: [id number] test normal Speech: speech normal Motor Exam: strength 5/5 throughout and general weakness Psych mental status grossly normal, thought process normal, cooperative and affect normal Appearance: appropriate Assessment & Plan Assessment/Plan (1) Fracture of distal end of fibula: PLAN: Plan #Debility due to RLE distal fibular fracture * PT/OT on board. Fall precautions * podiatry to follow up on outpatient basis. * PO tylenol and pO oxycodone prn for pain * #orthostatic hypotension: lasix on hold. hydrated with IVF. NOw on midodrine #Type 2 diabetes mellitus * On insulin sliding scale. Accu-Cheks ACHS. Metformin on hold #Probable UTI * Urinalysis on admission showed 3+ bacteria. She also had 50-100 WBC * it does not seem she was initiated on treatment for this * will get urine cultures and place on IV ceftriaxone * Urine cultures growing E. coli. Will stop IV ceftriaxone and switch to p.o. cefdinir. * #Urinary retention * Pierce catheter was removed and patient had a successful voiding trial. * will monitor * #Chronic back pain: * on oxycodone prn. 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 Benign. Will monitor. #Anxiety and depression: on sertraline and bupropion #HFpEF: has known EF of 70% from echo in 2020. Not in exacerbation. On on lasix which is now held due to orthostatic hypotension FRANSISCA: Resolved. #GERD: On PPI #Rheumatoid arthritis: On hydroxychloroquine DVT prophylaxis: Lovenox Disposition: * Awaiting placement. Insurance denied rehab placement so patient has filed an appeal. Charges/Coding Visit Charges Inpatient E&M: 60491 Subs Hosp L2
[2024-05-14] MEDS: oxyCODONE 5 MG Tablet PO ×2 (14:02→20:17)
--- NOTE | 2024-05-14 16:00 | CASEMGMT ---
Social Work Phone call to [facility] to follow up on Expediated appeal for SNF admission and spoke with Guillermina. Guillermina states appeal has been opened and it is under clinician review. Guillermina states they will have a determination by 05/15 at 1:51pm. MMO is to call this SW with determination. NIGEL Nix
[2024-05-14 18:14] LABS: Bedside Glucose 150 mg/dL (74-106)
[2024-05-14] MEDS: Pravastatin 20 MG Tablet PO (21:58)
[2024-05-14] MEDS: Senna Tablet 1 TABLET PO (21:58)
[2024-05-14] MEDS: Gabapentin 300 MG Capsule 600 MG PO (21:59)
[2024-05-14 22:31] LABS: Bedside Glucose 175 mg/dL (74-106)
[2024-05-15] VITALS (7 sets, daily range): BP systolic 114–130; BP diastolic 48–57; PULSE 57–63; RESP 12–16; TEMP 36.6–36.8; O2SAT 97–99
[2024-05-15] MEDS: 0.9% Saline Lock 10 ML Syringe IV ×2 (05:16→08:50)
[2024-05-15] MEDS: Acetaminophen 500 MG Tablet 1000 MG PO ×2 (05:16→14:48)
[2024-05-15] MEDS: Heparin Injection (Vial) 5,000 UNIT/ML VIAL 5000 UNIT SC (05:16)
[2024-05-15 05:20] LABS: Absolute Lymphocyte Count 2.27 X10^3/uL (0.83-4.51); Basophil# 0.08 X10^3/uL; Basophil% 0.8 % (0-1); Eosinophils% 5.1 % (0-5); Hematocrit 36.8 % (37-47); Hemoglobin 11.1 g/dL (12.0-15.0); Lymphocyte # 2.27 X10^3/ul (0.83-4.51); Lymphocyte % 23.2 % (19-41); Mean Corp Hgb Conc 30.2 g/dL (32-36); Mean Corpuscular Hgb 26.2 pg (27.0-32.0); Mean Platelet Vol. 10.3 fl (6.2-12.0); Monocyte# 0.67 X10^3/uL; Monocyte% 6.8 % (0-10); NRBC Flagged by Analyzer 0 % (0-5); Neutrophil # 5.99 X10^3/uL (2.7-7.7); Neutrophil % 61.2 % (47-70); Platelet Count 334 K/mm3 (150-450); RBC Distribution Width CV 15.8 % (11.6-14.6); RBC Distribution Width SD 49.4 fl (35.1-43.9); Red Blood Count 4.23 M/mm3 (4.2-5.4); White Blood Count 9.8 K/mm3 (4.4-11.0)
[2024-05-15 05:46] LABS: Anion Gap 6 (5-15); BUN 17 mg/dL (7-18); BUN/Creat Ratio 14.2 RATIO (10-20); Calcium,Total 9.8 mg/dL (8.5-10.1); Chloride 110 mmol/L (98-107); EST Glomerular Filtration Rate 47 mL/min (>60); Est Glom Filt Rate - Afr Amer 57 mL/min (>60); Estimated Creatinine Clearance 48.88 ml/min; Glucose 148 mg/dL (74-106); Potassium 4.4 mmol/L (3.5-5.1); Sodium Level 139 mmol/L (136-145)
[2024-05-15] MEDS: Insulin Lispro 100 UNIT/ML INSULN.PEN SC (06:54)
[2024-05-15 07:15] LABS: Bedside Glucose 162 mg/dL (74-106)
[2024-05-15] MEDS: Ceftriaxone 1 GM/50 ML BAG IV (08:50)
[2024-05-15] MEDS: Midodrine HCl 5 MG Tablet 10 MG PO ×2 (08:50→11:36)
[2024-05-15] MEDS: Gabapentin 300 MG Capsule PO ×2 (08:50→11:36)
--- NOTE | 2024-05-15 08:50 | CASEMGMT ---
ALVIN received a call from [employer] and they upheld the denial and case was sent to [facility] for further review. ALVIN notified ALVIN Dickinson covering PCU. Guillermina VILLA
[2024-05-15] MEDS: Sertraline 50 MG Tablet 12.5 MG PO (08:51)
[2024-05-15] MEDS: Pantoprazole Sodium 40 MG Tablet PO (08:51)
[2024-05-15] MEDS: Hydroxychloroquine 200 MG Tablet PO (08:51)
[2024-05-15] MEDS: buPROPion (XL) 150 MG TABLET.XL PO (08:51)
[2024-05-15] MEDS: Nystatin Powder 15gm Bottle 1 APPLIC TOPICAL (08:52)
--- NOTE | 2024-05-15 08:53 | CASEMGMT ---
Addendum entered by Teena Tom 05/15/24 10:52: Social Work SW met with pt and a list of [facility] providers including quality and resource use data and consistent with the patient?s preferred geographic region, medical needs, and insurance network were provided from the [employer] Guide. Pt preferred provider is [facility]. Referral to [facility] for PT/OT and they are able to accept with SOC on Friday 05/19. Pt updated and agreeable to this SOC. Pt states she has a walker at home and family will provide transportation. No additional needs. [facility] notified to cancel referral. Plan: Home with [facility] PT/OT NIGEL Nix Original Note: Social Work Insurance has upheld denial of SNF approval. ALVIN met with pt and informed that insurance will not pay for SNF placement. Pt has options of going to SNF private pay, returning home with [facility] or issuing another appeal. Pt states she feels she can return home at this time and is agreeable to home health. SW will arrange for home health care. Physician notified of updated discharge plan. NIGEL Nix
--- NOTE | 2024-05-15 09:12 | CASEMGMT ---
Discharge Planning A list of?HH providers including quality and resource use data and consistent with the patient's preferred geographic region, medical needs, and insurance network was created in [employer] Guide.? This list was provided to the SW. Carol Kelsey, Discharge Planning Asst
[2024-05-15 12:09] LABS: Bedside Glucose 143 mg/dL (74-106)
--- NOTE | 2024-05-15 12:35 | PCM.DC ---
Discharge Instructions Diet Discharge Diet: Low fat / Low cholesterol DC O2, CPAP, BIPAP needs Home O2 Discharge instructions: No Dressing / Incision Discharge Activity: Return to Normal Activity Weight Bearing Status: Weight bearing as tolerated Dressing / Incision Call your doctor if you observe: Fever of 101 or Higher, Dizziness, Swelling in the ankles, Chest pain and Uncontrolled pain Follow Up Care Test Results: Test results from this visit will be discussed in further detail at your follow-up appointment, if applicable. Discharge Plan Admission Admit Date/Time: 05/07/24 16:43 Primary Reason for Your Visit: fracture of distal right tibia Attending Provider: Brigida Lance Primary Care Provider: Zuleyma Edgar Consulting Providers: Claude Nayak; Desirae Chen; Dustin Osborne Instructions Patient Instructions: ED Leg Fracture Discharge Orders/Prescriptions Prescriptions: New midodrine 5 mg Tablet 10 mg PO TIDCM Qty: 90 2RF oxycodone 5 mg tablet 5 mg PO Q6H PRN (Reason: pain) 3 Days Qty: 12 0RF Continued omeprazole 40 MG capsule,delayed release(DR/EC) 40 mg PO DAILY gabapentin 300 MG capsule 300 mg PO BID pravastatin 20 MG tablet 20 mg PO QHS hydroxychloroquine 200 MG tablet 200 mg PO DAILY metformin 500 MG tablet extended release 24 hr 500 mg PO BID bupropion HCl 150 MG tablet extended release 24 hr 150 mg PO DAILY sucralfate 1 GM tablet 1 g PO TID gabapentin 300 mg capsule 600 mg PO QHS hydroxyzine HCl 25 mg tablet 25 mg PO TID PRN PRN (Reason: anxiety) Jardiance 10 mg tablet 10 mg PO DAILY potassium chloride 10 mEq tablet extended release 10 meq PO DAILY sertraline 25 mg tablet 12.5 mg PO DAILY Trulicity 3 mg/0.5 mL pen injector 3 mg subcut QWEEK cholecalciferol (vitamin D3) 1,250 mcg (50,000 unit) capsule 1,250 mcg PO QWEEK Discontinued furosemide 20 MG tablet 20 mg PO DAILY tramadol 50 mg tablet 50 mg PO TID PRN Referrals / Follow Up: Raghu Ellis DPM [Med Staff - Active Staff] - Within 1 Week Steve Turcios MD [Non-Staff] - Within 1 Week Zuleyma Edgar PRINCIPAL ARCHITECT-C [Primary Care Provider] - Disposition Disposition (needs filled in before D/C Order can be placed): Home Health Service
--- NOTE | 2024-05-15 12:37 | PCM.DC.SUM ---
Providers Date of Admission: 05/07/24 Date of Discharge: 05/15/24 Primary Care Physician: Zuleyma Edgar, CRIS-C Reason For Visit: FALLS W/ RIGHT ANKLE FRACTURE, CONCERN FOR SYNCOPE Diagnosis Discharge Diagnosis (1) Fracture of distal end of fibula: Status: Acute Code(s): S82.839A - Other fracture of upper and lower end of unspecified fibula, initial encounter for closed fracture Plan #Debility due to RLE distal fibular fracture PT/OT on board. Fall precautions podiatry to follow up on outpatient basis. PO tylenol and pO oxycodone prn for pain #orthostatic hypotension: lasix on hold. hydrated with IVF. NOw on midodrine #Type 2 diabetes mellitus On insulin sliding scale. Accu-Cheks ACHS. Metformin on hold #Probable UTI Urinalysis on admission showed 3+ bacteria. She also had 50-100 WBC it does not seem she was initiated on treatment for this will get urine cultures and place on IV ceftriaxone Urine cultures growing E. coli. Will stop IV ceftriaxone and switch to p.o. cefdinir. #Urinary retention Pierce catheter was removed and patient had a successful voiding trial. will monitor #Chronic back pain: on oxycodone prn. 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 Benign. Will monitor. #Anxiety and depression: on sertraline and bupropion #HFpEF: has known EF of 70% from echo in 2020. Not in exacerbation. On on lasix which is now held due to orthostatic hypotension FRANSISCA: Resolved. #GERD: On PPI #Rheumatoid arthritis: On hydroxychloroquine DVT prophylaxis: Lovenox Disposition: Awaiting placement. Insurance denied rehab placement so patient has filed an appeal. Medications at Discharge Home Medications bupropion HCl 150 mg 24 hr tablet, extended release 150 mg PO DAILY depression 04/17/19 gabapentin 300 mg capsule 300 mg PO BID nerve pain 04/17/19 hydroxychloroquine 200 mg tablet 200 mg PO DAILY arthritis 04/17/19 metformin 500 mg tablet,extended release 24 hr 500 mg PO BID dm 04/17/19 omeprazole 40 mg capsule,delayed release 40 mg PO DAILY gerd 04/17/19 pravastatin 20 mg tablet 20 mg PO QHS cholesterol 04/17/19 sucralfate 1 gram tablet 1 g PO TID upset stomach 06/01/20 cholecalciferol (vitamin D3) 1,250 mcg (50,000 unit) capsule 1,250 mcg PO QWEEK 05/06/24 dulaglutide 3 mg/0.5 mL subcutaneous pen injector (Trulicity) 3 mg subcut QWEEK 05/06/24 empagliflozin 10 mg tablet (Jardiance) 10 mg PO DAILY 05/06/24 gabapentin 300 mg capsule 600 mg PO QHS 05/06/24 hydroxyzine HCl 25 mg tablet 25 mg PO TID PRN PRN anxiety 05/06/24 potassium chloride 10 mEq tablet,extended release 10 meq PO DAILY 05/06/24 sertraline 25 mg tablet 12.5 mg PO DAILY 05/06/24 midodrine 5 mg tablet 10 mg (2 x 5 mg) PO TIDCM #90 tabs 05/15/24 oxycodone 5 mg tablet 5 mg PO Q6H PRN pain 3 days #12 tabs 05/15/24 Hospital Course Operations None Procedures None Summary of Care Provided Minutes Spent on Discharge: 42 Hospital Course: Patient is a 69-year-old female with past medical history as outlined was admitted through the ED on 05/06/2024 with complaint of presyncope. She had been having mechanical falls at home and also had right ankle pain. She had been having difficulty ambulating. She says she had not been checking her blood pressure at home but admitted to feeling dizzy and lightheaded at home for the past few months prior to admission. She sustained a fall on the day of admission to that she did not appear to have really passed out. No admission in the ED her blood pressure was on the lower side of normal and creatinine was elevated at 2.03. X-ray of the right ankle showed a minimally displaced intra-articular fracture of the right distal fibula along with an ankle joint effusion. The leg was placed in a podiatry boot and she was admitted to be managed for debility and weakness due to mechanical fall with resultant right distal fibula fracture. Orthostatics were checked and were positive. Her furosemide was discontinued and she was hydrated with IV fluids. PT OT was consulted. Patient had opted for placement in acute rehab facility. [id number] was attempted but physician was unsuccessful. Patient therefore appealed her denial but denial was upheld by the insurance company. Patient was therefore discharged home on 05/15/2024. Of note hospital course was complicated by UTI for which she received 5 days of IV ceftriaxone. Urine cultures grew E. coli. As stated she completed 5 days of antibiotics. She was discharged home with home health on 05/15/2024. She was discharged with a prescription for p.o. oxycodone 5 mg every 6 hours as needed for total of 12 tablets for 3 days. She was also discharged with a prescription for midodrine 10 mg 3 times daily. She is to follow-up with her primary care doctor within 1 to 2 weeks and also was referred to podiatry on outpatient basis within 1 to 2 weeks. Lasix was discontinued on admission due to the hypotension. Patient seen and examined prior to discharge. She had no active complaints. Review of systems otherwise negative. Labs and vitals reviewed. Home medication reviewed and reconciled. Physical Exam Const alert, oriented x3, no apparent distress, average body habitus and well nourished General Appearance: cooperative, comfortable, well kempt and well developed Orientation / Consciousness: awake, oriented to person, oriented to place and oriented to time HEENT normocephalic, head/scalp atraumatic, hearing grossly normal bilaterally, nasal mucous membranes and turbinates normal, moist oral mucous membranes and oropharynx normal Eyes PERRL, EOMs intact bilaterally and conjunctivae normal Neck full ROM, no lymphadenopathy, supple, no JVD, thyroid normal and no carotid bruits General: trachea midline Lymph Lymphatic: no lymphadenopathy noted and no lymphedema noted Chest inspection of chest normal Resp normal respiratory effort, normal air movement, no retractions, no use of accessory muscles and clear to auscultation bilaterally Resp Narrative: on room air. Auscultation: Negative for rales, rhonchi or wheezes Cardio regular rate, regular rhythm, S1 normal heart sound, S2 normal heart sound, no murmurs, no rub, no gallops and peripheral pulses 2+ throughout GI normal to inspection, nondistended, normoactive bowel sounds, soft to palpation, non-tender and non-distended Back/Spine no CVA tenderness, normal ROM and normal to inspection Extremity normal capillary refill, no clubbing, cyanosis or edema and no calf tenderness Extremity Narrative: right foot wrapped in bandage, and in right orthopedic walking boot. Skin no rashes or lesions noted Skin Narrative: as under extremity General Skin Exam: no breakdown Neuro oriented x3, CN's II-XII intact bilaterally, moves all extremities, no focal motor deficits and no sensory deficits noted Sensorium / Orientation: awake and alert Coordination / Balance: [id number] test normal Speech: speech normal Motor Exam: strength 5/5 throughout and general weakness Psych mental status grossly normal, thought process normal, cooperative and affect normal Appearance: appropriate Weight / BMI Weight Weight: 191 lb 12.835 oz Body Mass Index (BMI) 31.8 ABG / Lab / Microbiology Data 05/15/24 04:33 05/15/24 04:33 Laboratory: Laboratory Results - last 24 hr 05/14/24 16:23: POC Glucose 150 H 05/14/24 22:06: POC Glucose 175 H 05/15/24 04:33: WBC 9.8, RBC 4.23, Hgb 11.1 L, Hct 36.8 L, MCV 87.0, MCH 26.2 L, MCHC 30.2 L, RDW Std Deviation 49.4 H, RDW Coeff of Vikram 15.8 H, Plt Count 334, MPV 10.3, Immature Gran % (Auto) 2.900 H, Neut % (Auto) 61.2, Lymph % (Auto) 23.2, [place] % (Auto) 6.8, Eos % (Auto) 5.1 H, Baso % (Auto) 0.8, Absolute Neuts (auto) 6.0, Absolute Lymphs (auto) 2.27, Nucleated RBC % 0, Sodium 139, Potassium 4.4, Chloride 110 H, Carbon Dioxide 23.0, Anion Gap 6, BUN 17, Creatinine 1.20 H, Estim Creat Clear Calc 48.88, Est GFR (MDRD) Af Amer 57 L, Est GFR (MDRD) Non-Af 47 L, BUN/Creatinine Ratio 14.2, Glucose 148 H, Calcium 9.8 05/15/24 06:52: POC Glucose 162 H 05/15/24 11:35: POC Glucose 143 H Microbiology: Microbiology 05/11/24 18:17 Urine, Random Urine Culture - Final Escherichia coli D/C Instructions Discharge Diet: Low fat / Low cholesterol Weight Bearing Status: Weight bearing as tolerated Call your doctor if you observe: Fever of 101 or Higher, Dizziness, Swelling in the ankles, Chest pain and Uncontrolled pain DC O2, CPAP, BIPAP Needs Home O2 Discharge instructions: No DC home with Oxygen: No Meaningful Use Info Meaningful Use Meaningful Use Diagnoses (Choose all that apply): None applicable Ischemic Stroke Statin Dosing Therapy Reference: STATIN DOSE THERAPY REFERENCE: * Patients > 75 years receive moderate or high dose statin therapy. * Patients 75 years or YOUNGER should receive HIGH intensity statin dose unless contraindicated. You will be required to document reason for non-treatment if statin daily dose does not meet guidelines. HIGH DOSE STATIN THERAPY DAILY Atorvastatin > than or = to 40 mg Rosuvastatin > than or = to 20 mg Amlodipine + Atorvastatin > than or = to 2.5/40 mg Ezetimibe + Simvastatin 10/80 mg Simvastatin 80mg Discharge Plan Admission Admit Date/Time: 05/07/24 16:43 Primary Reason for Your Visit: fracture of distal right tibia Attending Provider: Brigida Lance Primary Care Provider: Zuleyma Edgar Consulting Providers: Claude Nayak; Desirae Chen; Dustin Osborne Instructions Patient Instructions: ED Leg Fracture Discharge Orders/Prescriptions Prescriptions: New midodrine 5 mg Tablet 10 mg PO TIDCM Qty: 90 2RF oxycodone 5 mg tablet 5 mg PO Q6H PRN (Reason: pain) 3 Days Qty: 12 0RF Continued omeprazole 40 MG capsule,delayed release(DR/EC) 40 mg PO DAILY gabapentin 300 MG capsule 300 mg PO BID pravastatin 20 MG tablet 20 mg PO QHS hydroxychloroquine 200 MG tablet 200 mg PO DAILY metformin 500 MG tablet extended release 24 hr 500 mg PO BID bupropion HCl 150 MG tablet extended release 24 hr 150 mg PO DAILY sucralfate 1 GM tablet 1 g PO TID gabapentin 300 mg capsule 600 mg PO QHS hydroxyzine HCl 25 mg tablet 25 mg PO TID PRN PRN (Reason: anxiety) Jardiance 10 mg tablet 10 mg PO DAILY potassium chloride 10 mEq tablet extended release 10 meq PO DAILY sertraline 25 mg tablet 12.5 mg PO DAILY Trulicity 3 mg/0.5 mL pen injector 3 mg subcut QWEEK cholecalciferol (vitamin D3) 1,250 mcg (50,000 unit) capsule 1,250 mcg PO QWEEK Discontinued furosemide 20 MG tablet 20 mg PO DAILY tramadol 50 mg tablet 50 mg PO TID PRN Referrals / Follow Up: Raghu Ellis DPM [Med Staff - Active Staff] - Within 1 Week Disposition Disposition (needs filled in before D/C Order can be placed): Home Health Service Charges/Coding Visit Charges Inpatient E&M: 75922 Disch Hosp >30min
[2024-05-15] MEDS: oxyCODONE 5 MG Tablet PO (14:48)
== END 2024-05-15 16:53 | disposition home or self-care (01) | DRG 312 ==
LOC: ED 16:43 → PCU 18:50
PROVIDERS: Internal Medicine; Admitting Provider Hospitalist; Emergency Provider Emergency Medicine; PCP Registered Nurse; Visit Provider Student in an Organized Health Care Education/Training Program
DX: I95.1 Orthostatic hypotension (principal); N17.9 Acute kidney failure, unspecified; I50.32 Chronic diastolic (congestive) heart failure; N39.0 Urinary tract infection, site not specified; S82.61XA Displaced fracture of lateral malleolus of right fibula, initial encounter for closed fracture; E11.42 Type 2 diabetes mellitus with diabetic polyneuropathy; E66.811 Obesity, class 1; B96.20 Unspecified Escherichia coli [E. coli] as the cause of diseases classified elsewhere; M06.9 Rheumatoid arthritis, unspecified; F32.A Depression, unspecified; E78.5 Hyperlipidemia, unspecified; M79.7 Fibromyalgia; M54.9 Dorsalgia, unspecified; S82.64XA Nondisplaced fracture of lateral malleolus of right fibula, initial encounter for closed fracture; W19.XXXA Unspecified fall, initial encounter; F41.9 Anxiety disorder, unspecified; I49.8 Other specified cardiac arrhythmias; G89.29 Other chronic pain; R53.81 Other malaise; Z68.31 Body mass index [BMI] 31.0-31.9, adult; Z79.84 Long term (current) use of oral hypoglycemic drugs; Z79.85 Long-term (current) use of injectable non-insulin antidiabetic drugs; Z79.899 Other long term (current) drug therapy; Z87.891 Personal history of nicotine dependence
CPT/HCPCS: 36415; 71045; 73610; 80048; 80076; 81001; 82962; 83036; 83735; 83880; 84484; 85025; 85027; 87077; 87086; 87088; 87186; 93005; 94668; 97110; 97116; 97162; 97166; 97530; 97535; 99285; A4216; J2405

== ENCOUNTER → 2024-09-01 | Outpatient (CLI) | payer MEDICARE, SELFPAY ==
[2024-09-01 15:24] LABS: Absolute Lymphocyte Count 1.76 X10^3/uL (0.83-4.51); Absolute Neutrophil Count 7.2 X10^3/uL (2.0-7.7); Basophil# 0.09 X10^3/uL; Basophil% 0.8 % (0-1); Eosinophil# 1.11 X10^3/uL; Eosinophils% 10.3 % (0-5); Hemoglobin 12.6 g/dL (12.0-15.0); Lymphocyte # 1.76 X10^3/ul (0.83-4.51); Lymphocyte % 16.3 % (19-41); Mean Corpuscular Volume 89.9 fL (81-99); Mean Platelet Vol. 10.9 fl (6.2-12.0); Monocyte# 0.54 X10^3/uL; NRBC Flagged by Analyzer 0 % (0-5); Neutrophil % 66.6 % (47-70); Platelet Count 313 K/mm3 (150-450); RBC Distribution Width CV 16.3 % (11.6-14.6); RBC Distribution Width SD 53.4 fl (35.1-43.9); Red Blood Count 4.67 M/mm3 (4.2-5.4); White Blood Count 10.8 K/mm3 (4.4-11.0)
[2024-09-01 15:46] LABS: Microalbumin,Random Urine 48.4 mg/L (NO RANGE EST.); Microalbumin:Creatinine Ratio 537.8 mg/g CRE
[2024-09-01 15:51] LABS: Color, Urine Yellow (Yellow); Glucose, Dipstick 1000 mg/dl (Normal); Ketone-Dipstick Negative (Negative); Leukocyte Esterase-Dipstick 25 /ul (Negative); Nitrite-Dipstick Negative (Negative); Occult Blood-Urine Negative /ul (Negative); Protein-Dipstick 30 mg/dl (Negative); Specific Gravity, Urine 1.015 (1.002-1.030); Urine Bilirubin Dipstick Negative (Negative); Urine Clarity Clear (Clear); Urine Urobilinogen Normal (Normal)
[2024-09-01 16:04] LABS: Hemoglobin A1c 5.9 % (<=5.6)
[2024-09-01 16:16] LABS: ALB/GLOB Ratio 1.4 RATIO (0.9-2.4); AST(SGOT) 36 U/L (<=31); Alanine Aminotransfer ALT/SGPT 42 U/L (<=34); Albumin, Serum 4.2 g/dL (3.4-4.8); Alkaline Phosphatase 201 U/L (35-104); Anion Gap 12 (5-15); BUN 25 mg/dL (4-19); BUN/Creat Ratio 18.9 RATIO (10-20); Calcium,Total 9.9 mg/dL (7.6-11.0); Carbon Dioxide 20.8 mmol/L (21.0-32.0); Chloride 106 mmol/L (98-108); Cholesterol 210 mg/dL (<=200); Creatinine, Serum 1.33 mg/dL (0.70-1.20); EST Glomerular Filtration Rate 44 (>60); Ferritin 120 ng/mL (22-378); Globulin 2.9 g/dL (2.2-4.2); Glucose 138 mg/dL (70-99); High Density Lipoprotein 47 mg/dL; Low Density Lipoprotein Calc. 121 mg/dL; Potassium 4.7 mmol/L (3.3-5.1); Sodium Level 138 mmol/L (133-145); Thyroid Stim Hormone (TSH) 0.772 uIU/mL (0.300-4.200); Total Bilirubin 0.31 mg/dL (0.00-1.30); Triglycerides 214 mg/dL; Very Low Density Lipoprotein 43 mg/dL (5-40); Vitamin B12 582 pg/mL (180-914); Vitamin D,25 Hydroxy 94.5 ng/mL (30-100); cholesterol:hdl ratio screen 4.51
[2024-09-01 16:33] LABS: Amylase 49 U/L (28-100); Iron 59 ug/dL (50-170); Lipase 43 U/L (13-75); Magnesium 2.1 mg/dL (1.5-2.2)
== END | disposition home or self-care (01) ==
LOC: MTLAB 13:21
PROVIDERS: PCP Registered Nurse; Referring Provider Registered Nurse; Visit Provider Registered Nurse
DX: R11.2 Nausea with vomiting, unspecified (principal); M06.9 Rheumatoid arthritis, unspecified; N18.4 Chronic kidney disease, stage 4 (severe); I50.32 Chronic diastolic (congestive) heart failure; E11.22 Type 2 diabetes mellitus with diabetic chronic kidney disease; R63.4 Abnormal weight loss; R25.1 Tremor, unspecified; R29.818 Other symptoms and signs involving the nervous system; R26.89 Other abnormalities of gait and mobility; K90.9 Intestinal malabsorption, unspecified; M79.7 Fibromyalgia; E78.5 Hyperlipidemia, unspecified; E55.9 Vitamin D deficiency, unspecified; D50.9 Iron deficiency anemia, unspecified; G89.29 Other chronic pain
CPT/HCPCS: 36415; 80053; 80061; 81002; 82043; 82150; 82306; 82570; 82607; 82728; 83036; 83540; 83690; 83735; 84443; 85025; 87086

== ENCOUNTER 2024-10-15 13:00 | Outpatient (RCR) | payer MEDICARE, MEDICAID, SELFPAY ==
--- NOTE | 2024-09-01 14:11 | HP.PTEVAL ---
Patient's Visit Information Visit Information Visit Information: CORINNA DYE is a 69 year old F referred to Physical Therapy by Dr. Hiram Tafoya MD with a diagnosis of IMBALANCE. Date of Evaluation: 09/01/24 Physical Therapist: JORGE L Sanchez Visit Plan Frequency: 2x /Week Duration: 3 Months Plan: 2X/ week for 8-12 weeks for LE strength, gait training, balance activities, endurance activities with HEP HEP: Bridges, LTR, and seated horizontal head turns Subjective Subjective: Pt had some low BP episodes and causes her to pass out and then she broke her ankle. Her tremors got worse after breaking her ankle. She saw a neurologist and was put on something and the tremors have stopped. Pt is having a bad day. She was lightheaded when she got up this morning and is still and this made her off balance. She was using a walker up until started taking the medicine for the tremors and did not feel she needed it until today. She does not get the lightheaded often but today is not a good day. She took her BP today and it was fine. She feels weak all over and that has been going on for a little while. She needs to get stronger. She does not do a whole lot and sits or lays down a lot. She has back pain but that has been there for years. She has a ramp into the trailers with railings. She has a walk in shower. She gets dizzy when she is in the shower or when she walks and turns her head. She goes back to see him next month. She does not sleep well. She wakes up wide away. Her balance is not that great. She tends to hold onto things. Pain back pain: Pain Intensity (Out of 10): 6 shoulder pain: Pain Intensity (Out of 10): 3 Objective Objective: LE MMT: R hip flex 8.7 and L 8.4 R knee ext 17.4 and L 10 R knee flex 10 and L 7.1 Supine hip abd R 5.7 and L 6.5 Bridge: 1/4 normal ROM Sit to stand: needs B UE to get up from the chair and has trouble weight shifting FW Gait: walks with shorter strides, decrease heel to toe, no trunk rotation, increase veering and guarding. Standing with EC pt began to bounce and was difficult to walk after that. Standing turning head to R and to the L she would get dizzy. Sitting and turning her head R and L she did get dizzy after turning her head X 1 to each side FGA 4 Balance/Special Test Scores Functional Gait Assessment Score: 4 % Disability: 86.6700 Lower Extremity Functional Score: 16 Goals Goal 1:: I HEP Goal Time Frame: 6-8 Weeks Goal 2:: Be able to walk with a rollator 1 lap with occ head turns with CGA with min SOB Goal Time Frame: 6-8 Weeks Goal 3:: Increase LE strength (at the time of the eval: R hip flex 8.7 and L 8.4 R knee ext 17.4 and L 10 R knee flex 10 and L 7.1 Supine hip abd R 5.7 and L 6.5 Bridge: 1/4 normal ROM). Goal Time Frame: 6-8 Weeks Goal 4:: Be able to complete 30 seconds horizontal head turns and vertical head turns in sitting with no dizziness Goal Time Frame: 6-8 Weeks Rehabilitation Potential Rehabilitation Potential: Good Anticipated Interventions Patient/Client Instruction: Educate patient on: Condition and Plan of Care For the Purpose of:: To decrease pain, To improve muscle performance and motor function, To improve ability to perform ADL's, To increase tolerance to activity/condition/position, To improve performance and independence with ADL's, To improve ability of physical actions for home/community/work/leisure, To improve gait and locomotor functions, To improve health of tissue, To increase flexibility/ROM, To improve endurance, To improve balance and To improve safety with gait Therapeutic Exercise to Include: Strength training, Endurance training, Balance training, Postural training, Flexibilty training, Gait and locomotor training, Neuromotor development, Active ROM and Dynamic Lumbar Stabilization For the Purpose of:: To improve muscle performance and motor function, To improve ability to perform ADL's, To increase tolerance to activity/condition/position, To improve performance and independence with ADL's, To decrease level of supervision to perform tasks, To improve ability of physical actions for home/community/work/leisure, To improve gait and locomotor functions, To improve health of tissue, To improve endurance, To improve balance and To improve safety with gait Functional Training to Include: Gait training For the Purpose of:: To improve gait and locomotor functions and To improve safety with gait Text: Thank you for the opportunity to evaluate your patient. For Medicare and Medicare HMO plans, please review the plan of care and approve it. It will need to be FAXED BACK to us at [phone] for Medicare purposes. For Medicare only, by signing this I certify the plan of care. Please let me know if there are questions or concerns regarding this plan of care. Physician Signature: Date:
--- NOTE | 2025-01-05 08:48 | HP.PT.NRP ---
Patient Information Patient Information: CORINNA DYE was seen in my office for initial evaluation on 09/01/24. The following Plan of Care was established for this patient: POC Established Initial Frequency: 2x /Week Initial Duration: 3 Months Anticipated Interventions Patient/Client Instruction: Educate patient on: Condition and Plan of Care For the Purpose of:: To decrease pain, To improve muscle performance and motor function, To improve ability to perform ADL's, To increase tolerance to activity/condition/position, To improve performance and independence with ADL's, To improve ability of physical actions for home/community/work/leisure, To improve gait and locomotor functions, To improve health of tissue, To increase flexibility/ROM, To improve endurance, To improve balance and To improve safety with gait Therapeutic Exercise to Include: Strength training, Endurance training, Balance training, Postural training, Flexibilty training, Gait and locomotor training, Neuromotor development, Active ROM and Dynamic Lumbar Stabilization For the Purpose of:: To improve muscle performance and motor function, To improve ability to perform ADL's, To increase tolerance to activity/condition/position, To improve performance and independence with ADL's, To decrease level of supervision to perform tasks, To improve ability of physical actions for home/community/work/leisure, To improve gait and locomotor functions, To improve health of tissue, To improve endurance, To improve balance and To improve safety with gait Functional Training to Include: Gait training For the Purpose of:: To improve gait and locomotor functions and To improve safety with gait Last Seen Last Seen: This patient was last seen in our office 10/15/24. Pertinent comments regarding their Physical therapy will appear below: SANDRA PT At this point I will be discontinuing this patient from physical therapy. I would be happy to see this patient again in the future if found appropriate by the physician. Thank you! Hailey Real, JORGE L Balance/Gait/Functional tests Balance/Special Test Scores Functional Gait Assessment Score: 4 % Disability: 86.6700 Lower Extremity Functional Score: 16
== END 2024-10-15 19:00 | disposition home or self-care (01) ==
LOC: PT 13:00
PROVIDERS: PCP Registered Nurse; Referring Provider Psychiatry & Neurology Neurology; Visit Provider Psychiatry & Neurology Neurology
DX: R26.89 Other abnormalities of gait and mobility (principal)
CPT/HCPCS: 97110; 97162

== ENCOUNTER → 2025-02-18 | Outpatient (CLI) | payer MEDICARE, MEDICAID, SELFPAY ==
[2025-02-18 11:05] LABS: Hematocrit 43.1 % (37-47); Hemoglobin 13.1 g/dL (12.0-15.0); Mean Corp Hgb Conc 30.4 g/dL (32-36); Mean Corpuscular Volume 90.0 fL (81-99); Mean Platelet Vol. 10.3 fl (6.2-12.0); Platelet Count 230 K/mm3 (150-450); RBC Distribution Width CV 17.0 % (11.6-14.6); RBC Distribution Width SD 56.9 fl (35.1-43.9); Red Blood Count 4.79 M/mm3 (4.2-5.4); White Blood Count 7.0 K/mm3 (4.4-11.0)
[2025-02-18 11:34] LABS: AST(SGOT) 44 U/L (<=31); Alanine Aminotransfer ALT/SGPT 67 U/L (<=34); Albumin, Serum 3.9 g/dL (3.4-4.8); Alkaline Phosphatase 205 U/L (35-104); Anion Gap 10 (5-15); BUN 24 mg/dL (4-19); BUN/Creat Ratio 20.3 RATIO (10-20); Calcium,Total 9.5 mg/dL (7.6-11.0); Carbon Dioxide 23.7 mmol/L (21.0-32.0); Chloride 104 mmol/L (98-108); Globulin 3.0 g/dL (2.2-4.2); Glucose 146 mg/dL (70-99); Potassium 5.0 mmol/L (3.3-5.1)
== END | disposition home or self-care (01) ==
LOC: LAB 10:09
PROVIDERS: PCP Registered Nurse; Referring Provider Internal Medicine Cardiovascular Disease; Visit Provider Internal Medicine Cardiovascular Disease
DX: I51.89 Other ill-defined heart diseases (principal); I50.9 Heart failure, unspecified; E11.69 Type 2 diabetes mellitus with other specified complication; Z79.4 Long term (current) use of insulin
CPT/HCPCS: 36415; 80053; 84443; 85027

== ENCOUNTER → 2025-02-19 | Outpatient (CLI) | payer MEDICARE, MEDICAID, SELFPAY ==
--- NOTE | 2025-02-19 17:00 | CT_ITS ---
PROCEDURE: SOFT TISSUE NECK WITH CONTRAST 02/19/2025 REASON FOR EXAM: NECK MASS Prior surgical intervention. TECHNIQUE: Procedure Code: CTNEW Modality: CT Procedure: SOFT TISSUE NECK WITH CONTRAST CONTRAST: Isovue 370 VOLUME: 100 mL One or more dose reduction techniques were used (e.g., Automated exposure control, adjustment of the mA and/or kV according to patient size, use of iterative reconstruction technique). RADIATION DOSE SUMMARY: CTDlvol: 18.34 mGy DLP: 540.63 mGycm COMPARISON: None FINDINGS: Airway: Midline and patent. Salivary glands: Fatty replacement of the parotid glands. Lymph nodes: There is a 23.7 mm by 50 mm by 19.1 mm soft tissue mass in the anterior right cervical triangle deep to the right sternocleidomastoid muscle. This abuts the vascular structures although there is no evidence of invasion. A neoplastic process should be ruled out. Thyroid: Unremarkable. Vasculature: Carotid arteries and internal jugular veins are unremarkable. Orbits: Unremarkable at visualized levels. Paranasal sinuses and mastoids: Grossly clear at visualized levels. Lung apices: Clear. Upper mediastinum: Visualized mediastinum is unremarkable. Bones: Multilevel degenerative changes of the spine. Other: CT/Soft Tissue Neck WITH Contrast IMPRESSION: 23.7 mm x 15 mm x 19.1 mm soft tissue mass in the anterior right cervical trian gle deep to the right sternocleidomastoid muscle. This abuts the vascular structures although there is no evidence of invasion. Reading Location: [facility]
[2025-02-19 17:28] LABS: CREATININE FINGERSTICK 1.1 mg/dL (0.55-1.02); EGFR FINGERSTICK 52.0000 mL/min (>60)
== END | disposition home or self-care (01) ==
LOC: CT 16:46
PROVIDERS: PCP Registered Nurse; Referring Provider Registered Nurse; Visit Provider Registered Nurse
DX: R22.1 Localized swelling, mass and lump, neck (principal); E11.9 Type 2 diabetes mellitus without complications
CPT/HCPCS: 70491; Q9967

== ENCOUNTER → 2025-04-06 | Outpatient (CLI) | payer MEDICARE, MEDICAID, SELFPAY ==
--- OUTSIDE RECORDS SUMMARY | 2025-04-06 07:38 | XMS RPT_ITS | CCD ---
Author Organization [facility] Providers Care Director Of Industrial Relations Name Role Phone PALLAVI MEJÍA Unavailable Unavailable JAKI VERDUGO Unavailable Unavailable ERIC ST DR Unavailable Unavailable ERIC ST DR Unavailable Unavailable ERIC ST DR Unavailable Unavailable KARTIK, JAKI Unavailable Unavailable PROVIDER, UNKNOWN Unavailable Unavailable ERIC ST DR Unavailable Unavailable ERIC ST DR Unavailable Unavailable ERIC ST DR Unavailable Unavailable KARTIK, JAKI Unavailable Unavailable PROVIDER, UNKNOWN Unavailable Unavailable ERIC ST DR Unavailable Unavailable ERIC ST DR Unavailable Unavailable KARTIK, JAKI Unavailable Unavailable ERIC ST DR Unavailable Unavailable KARTIK, JAKI Unavailable Unavailable PROVIDER, UNKNOWN Unavailable Unavailable Jaki Verdugo MD Primary Care Provider Jaki Verdugo MD Primary Care Provider Ailyn Carson PA-C Primary Care Provider Ailyn Carson PA-C Primary Care Provider Jaki Verdugo MD Primary Care Provider BRYANT RUSSO Referring Unavailable Ailyn CARSON Primary Care Unavailable EUGENIA VEE Admitting Unavailable EUGENIA VEE Attending Unavailable Lavelle Duong DO Unavailable Ailyn Carson PA-C Primary Care Provider Jaki Verdugo MD Primary Care Provider Yoko Erazo CNP Primary Care Provider Randall Carson PA-C Primary Care Provider Unavailable Dr. Davey Egan DO Emergency Provider Yoko Gonzalez Primary Care Provider Dr. Claude Nayak DO Admit Provider Dr. Claude Nayak DO Other Provider Gustavo AUGUSTIN, Dr. Merrill Other Provider Casi YIN, Dr. Brigida Alex Attending Provider India AUGUSTIN, Dr. Chan Other Provider India AUGUSTIN, Dr. Chan Attending Provider Casi YIN, Dr. Brigida Alex Other Provider Michelet YIN, Dr. Gandhi Attending Provider Unavailab cassandra Tafoya MD, Dr. Gandhi Referring Provider Unavailab le Erazo SHOW HOST OR HOSTESS-C, Yoko Attending Provider Erazo SHOW HOST OR HOSTESS-C, Yoko Referring Provider ERAZO RADIOLOGY CLERK, [place] Primary Care Physician ERAZO RADIOLOGY CLERK, YOKO Primary Care Unavailable VENKATA YIN, GABE Paul Attending Unavail able TYLER DIXON Referring Unavailable ERAZO, YOKO Primary Care Unavailable TYLER DIXON Referring Unavailable ERAZO, YOKO Primary Care Unavailable WALLIS, SAIGE Referring Unavailable ERAZO, YOKO Primary Care Unavailable WALLIS, SAIGE Referring Unavailable ERAZO, YOKO Primary Care Unavailable WALLIS, SAIGE Referring Unavailable ERAZO, YOKO Primary Care Unavailable MONET NEGRON Attending Unavailable DIXON, TYLER Referring Unavailable ERAZO, YOKO Primary Care Unavailable CARSONRANDALL Referring Unavailable ERAZO, YOKO Primary Care Unavailable WALLIS, SAIGE Referring Unavailable ERAZO, YOKO Primary Care Unavailable WALILS, SAIGE Referring Unavailable ERAZO, YOKO Primary Care Unavailable ERAZO, YOKO Primary Care Unavailable ERAZO, YOKO Primary Care Unavailable WALLIS, SAIGE Attending Unavailable ERAZO, YOKO Primary Care Unavailable TYLER DIXON Attending Unavailable ERAZO, YOKO Primary Care Unavailable WALLIS, SAIGE Attending Unavailable ERAZO, YOKO Primary Care Unavailable TYLER DIXON Attending Unavailable RANDALL CARSON Primary Care Unavailable DIXON, TYLER Referring Unavailable ERAZO, YOKO Primary Care Unavailable WALLIS, SAIGE Referring Unavailable ERAZO, YOKO Primary Care Unavailable Erazo SHOW HOST OR HOSTESS-C, [place] Primary Care Physician Dr. Hiram Tafoya MD Attending Physician Unavailholley Tafoya MD, Dr. Gandhi Referring Provider Unavailab le Erazo SHOW HOST OR HOSTESS-C, Yoko Referring Provider Rasheeda YIN, Dr. Garcia Attending Physician [phone] Erazo SHOW HOST OR HOSTESS-C, Yoko Attending Physician [phone] Erazo, Yoko Primary Care Unavailable Tereletsky, Randall Attending Unavailable Claude Nayak Admitting Unavailable Claude Nayak Consulting Unavailable Gustavo, Desirae Consulting Unavailable Tereletsky, Randall Consulting Unavailable Erazo, Yoko Primary Care Unavailable Erazo, Yoko Attending Unavailable Erazo, Yoko Referring Unavailable Erazo, Yoko Primary Care Unavailable Erazo, Yoko Attending Unavailable Erazo, Yoko Referring Unavailable Erazo, Yoko Primary Care Unavailable Erazo, Yoko Attending Unavailable Erazo, Yoko Primary Care Unavailable Tereletsky, Randall Attending Unavailable Claude Nayak Admitting Unavailable Nael Claude Consulting Unavailable Gustavo, Desirae Consulting Unavailable Erazo, Yoko Referring Unavailable Erazo, Yoko Primary Care Unavailable Erazo, Yoko Attending Unavailable Koram, Brigida Abi Attending Unavailable Erazo, Yoko Primary Care Unavailable Claude Nayak Admitting Unavailable Nael Claude Consulting Unavailable Gustavo, Desirae Consulting Unavailable Tereletsky, Randall Consulting Unavailable Koram, Brigida Abi Attending Unavailable Koram, Brigida Abi Consulting Unavailable Erazo, Yoko Referring Unavailable Erazo, Yoko Attending Unavailable Erazo, Yoko Primary Care Unavailable Erazo, Yoko Referring Unavailable Erazo, Yoko Primary Care Unavailable Erazo, Yoko Attending Unavailable Erazo, Yoko Primary Care Unavailable Michelet, Hiram Attending Unavailable Michelet, Hiram Referring Unavailable Erazo, Yoko Referring Unavailable Erazo, Yoko Attending Unavailable Erazo, Yoko Primary Care Unavailable Erazo, Yoko Referring Unavailable Erazo, Yoko Primary Care Unavailable Jose Vanessa Attending Unavailable Erazo, Yoko Primary Care Unavailable Claude Nayak Attending Unavailable Nael Claude Admitting Unavailable Nael Claude Consulting Unavailable Allergies Allergy Classification Reported Allergen(s) Allergy Type Date of Onset Reaction(s) Facility (1 source) NKDA - NO KNOWN DRUG ALLERGIES Drug allergy (disorder) [facility] Repository Medications Current Medications Medication Drug Class(es) Dates Sig (Normalized) Sig (Original) acetaminophen 325 mg / HYDROcodone bitartrate 5 mg oral tablet (17 sources) Opioid Agonist Start: 06-20-2024 take 1 tablet by mouth every eight hours as needed HYDROcodone-acetam inophen (NORCO) 5-325 mg per tablet Take 1 tablet by mouth every 8 hours as needed. 06/20/2024 Active acetaminophen 325 mg / oxyCODONE hydrochloride 5 mg oral tablet (1 source) Opioid Agonist Start: 08-30-2017 take 1-2 tablets by mouth every six hours as needed for pain zzzacetaminophen-O XYcodone 325-5 mg tablet TAKE 1 TO 2 TABLETS BY MOUTH EVERY 6 HOURS NEEDED FOR PAIN Start Date: 08/30/17 Status: Ordered Medication Dispense Status: Completed Total Allowed Fills: 1 Fills Dispensed: 0 alendronic acid 70 mg oral tablet (9 sources) Bisphosphonate take 1 tablet by mouth every week alendronate (FOSAMAX) 70 mg tablet Take 70 mg by mouth one time a week. Active 24 hr buPROPion hydrochloride 150 mg extended release oral tablet (20 sources) Aminoketone Start: 04-17-2019 End: 06-10-2020 take 1 tablet by mouth once daily Start: 08-30-2017 take 1 tablet by [facility] every hour, then take 1 tablet by mouth every twenty-four hours Wellbutrin XL 150 mg/24 hours oral tablet, extended release Dose : 150 mg = 1 tab(s), Oral, q24h, # 90 tab(s), 0 Refill(s) Start Date: 08/30/17 Status: Ordered Medication Dispense Status: Completed Quantity: 90.0 Unit: tab(s) Total Allowed Fills: 1 Fills Dispensed: 0 cholecalciferol 1.25 mg oral capsule (20 sources) Vitamin D Start: 05-06-2024 take 1 capsule by [facility] every week Start: 09-16-2023 take 1 capsule by [facility] every week cholecalciferol, Vitamin D3, (VITAMIN D3) 1,250 mcg (50,000 unit) cap capsule Indications: Vitamin D deficiency Take 1 capsule by mouth one time a week. 4 capsule 09/16/2023 Active Start: 10-02-2021 End: 09-14-2023 take 1 capsule by mouth every week cholecalciferol, Vitamin D3, (VITAMIN D3) 1,250 mcg (50,000 unit) cap capsule Indications: Vitamin D deficiency Take 1 capsule by mouth one time a week. 4 capsule 11 09/11/2022 09/14/2023 Discontinued Start: 07-24-2021 End: 09-30-2021 take 1 capsule by mouth every week cholecalciferol, Vitamin D3, (VITAMIN D3) 1,250 mcg (50,000 unit) cap capsule Indications: Vitamin D deficiency Take 1 capsule by mouth once a week 4 capsule 0 08/23/2021 09/30/2021 Discontinued Start: 06-24-2021 take 1 capsule by mo ut every week cholecalciferol, Vitamin D3, (VITAMIN D3) 1,250 mcg (50,000 unit) cap capsule Indications: vitamin D deficiency Take 1 capsule by mouth one time a week. 4 capsule 0 06/24/2021 Active Start: 12-17-2018 End: 06-23-2020 take 1 capsule by mouth every week cholecalciferol, Vitamin D3, (VITAMIN D3) 50,000 unit cap capsule Indications: vitamin D deficiency Take 1 capsule by mouth one time a week. 8 capsule 2 12/17/2018 06/23/2020 Discontinued Comment on above: Take 1 capsule by mo [facility] one time a week. Take 1 capsule by mo ut once a week doxycycline hyclate 100 mg oral tablet (3 sources) Tetracycline-class Drug Start: 07-27-2023 End: 08-03-2023 take 1 tablet by mouth twice daily doxycycline (VIBRA-TABS) 100 mg tablet Take 1 tablet by mouth two times a day for 7 days. 14 tablet 0 07/27/2023 08/03/2023 Active Comment on above: Take 1 tablet by [facility] two times a day for 7 days. Dulaglutide (20 sources) GLP-1 Receptor Agonist Start: 05-06-2024 Start: 05-06-2024 Dulaglutide (T rulicity) 3 mg/0.5 mL pen injector Active 3 mg SC EVERY WEEK May 06, 2024 1:00am Start: 11-20-2021 End: 12-11-2022 dulaglutide (TRULICITY) 1.5 mg/0.5 mL pen injector Inject 1.5 mg subcutaneously one time a week. Inject once per week. Discard Pen After 2 mL 11/20/2021 12/11/2022 Discontinued Start: 09-29-2021 End: 11-20-2021 inject 0.75 mg by subcutaneous injection every week dulaglutide (TRULICITY) 0.75 mg/0.5 mL pen injector Inject 0.75 mg subcutaneously one time a week. Inject dose once per week. Discard Pen After 4 Each 5 09/29/2021 11/20/2021 Discontinued Comment on above: Inject 0.75 mg subcu taneously one time a week. Inject dose once per week. Discard Pen After Inject 1.5 mg subcut aneously one time a week. Inject once per week. Discard Pen After dulaglutide (TRULICITY) 3 mg/0.5 mL pen injector (20 sources) Start: inject 3 mg by subcutaneous injection every week dulaglutide (TRULICITY) 3 mg/0.5 mL pen injector Indications: Type 2 diabetes mellitus with diabetic neuropathy, without long-term current use of insulin (HCC) Inject 3 mg subcutaneously one time a week. 12 Each 1 08/23/2023 Active Start: 03-08-2023 End: 08-23-2023 inject 3 mg by subcutaneous injection every week dulaglutide (TRULICITY) 3 mg/0.5 mL pen injector Indications: Type 2 diabetes mellitus with diabetic neuropathy, without long-term current use of insulin (HCC) Inject 3 mg subcutaneously one time a week. 12 Each 1 03/08/2023 08/23/2023 Discontinued Start: 03-08-2023 inject 3 mg by subcu taneous injection every week dulaglutide (TRULICITY) 3 mg/0.5 mL pen injector Indications: Type 2 diabetes mellitus with diabetic neuropathy, without long-term current use of insulin (HCC) Inject 3 mg subcutaneously one time a week. 12 Each 1 03/08/2023 Active Start: 08-31-2022 End: 03-08-2023 inject 3 mg by subcutaneous injection every week dulaglutide (TRULICITY) 3 mg/0.5 mL pen injector Indications: Type 2 diabetes mellitus with diabetic neuropathy, without long-term current use of insulin (HCC) Inject 3 mg subcutaneously one time a week. 12 Each 1 08/31/2022 03/08/2023 Discontinued Start: 08-31-2022 inject 3 mg by subcu taneous injection every week dulaglutide (TRULICITY) 3 mg/0.5 mL pen injector Indications: Type 2 diabetes mellitus with diabetic neuropathy, without long-term current use of insulin (HCC) Inject 3 mg subcutaneously one time a week. 12 Each 1 08/31/2022 Active Comment on above: Inject 3 mg subcutan eously one time a week. empagliflozin 10 mg oral tablet (20 sources) Sodium-Glucose Cotransporter 2 Inhibitor Start: 07-14-2023 take 1 tablet by mouth once daily Start: 09-29-2021 End: 07-12-2023 take 1 tablet by mouth once daily, then take 1 tablet by mouth once daily in the morning empagliflozin (JARDIANCE) 10 mg tablet Take 1 tablet by mouth once daily. Take 1 tablet once daily in the morning 30 tablet 5 11/06/2021 Active Comment on above: Take 1 tablet by deyvi th once daily. Take 1 tablet once daily in the morning gabapentin 300 mg oral capsule (20 sources) Anti-epileptic Agent Start: 05-06-2024 take 2 capsules by mouth at bedtime Start: 08-30-2017 take 1 capsule by mo [facility] twice daily Start: 01-13-2013 End: 04-11-2019 take 1 capsule by mouth three times daily at mealtime Gabapentin 300 MG capsule Discontinued 300 mg PO 3 TIMES DAILY WITH MEALS 30 10 0 April 01, 2019 1:00am April 10, 2019 1:00am April 11, 2019 1:09am Fibromyalgia Chronic pain Peripheral neuropathy Other chronic pain Polyneuropathy, unspecified Comment on above: Take 1 capsule by mo ut three times daily. hydroxychloroquine sulfate 200 mg oral tablet (20 sources) Antimalarial, Antirheumatic Agent Start: 2024 End: 2024 take 1 tablet by mouth once daily hydrOXYchloroQUINE (PLAQUENIL) 200 mg tablet Take 1 tablet by mouth once daily. 90 tablet 1 09/30/2024 Active Start: 08-30-2017 End: 07-06-2024 take 1 tablet by mouth once daily hydrOXYchloroQUINE (PLAQUENIL) 200 mg tablet Take 1 tablet by mouth once daily 30 tablet 07/06/2024 Active Comment on above: Take 1 tablet by deyvi th once daily Take 1 tablet by deyvi th once daily. hydrOXYzine hydrochloride 25 mg oral tablet (11 sources) Antihistamine Start: 05-06-19 take 1 tablet by mouth three times daily as needed for anxiety insulin lispro 100 unt/ml injectable solution (1 source) Insulin Analog Start: 08-31-19 HumaLOG 100 units/mL injectable solution Dose : 5 unit(s) =, Subcutaneous, TIDAC Start Date: 08/30/17 Status: Ordered Medication Dispense Status: Completed Total Allowed Fills: 1 Fills Dispensed: 0 midodrine hydrochloride 5 mg oral tablet (19 sources) alpha-Adrenergic Agonist Start: 05-15-19 take 2 tablets by mouth three times daily at mealtime omeprazole 40 mg delayed release oral capsule (20 sources) Proton Pump Inhibitor Start: 08-31-19 End: 01-21-20 take 1 capsule by mouth once daily Comment on above: Take 1 capsule by [facility] once daily. ondansetron 4 mg oral tablet (9 sources) Serotonin-3 Receptor Antagonist take 1-2 tablets by mouth every eight hours as needed for nausea ondansetron (ZOFRAN) 4 mg tablet TAKE 1 TO 2 TABLETS BY MOUTH EVERY 8 HOURS NEEDED FOR NAUSEA FOR 5 DAYS Active oxyCODONE hydrochloride 5 mg oral tablet (13 sources) Opioid Agonist Start: 05-15-19 take 1 tablet by mouth every six hours as needed for pain Start: 06-01-2020 End: 05-06-2024 take 1 capsule by mouth twice daily Oxycodone Myristate 18 MG cap,sprinkl,ER12hr(DONT CRUSH) Discontinued 18 mg PO TWICE A DAY June 01, 2020 1:00am May 06, 2024 6:37pm pain Start: 06-14-2017 End: 10-07-2017 take 5-10 mg by mouth every four hours as needed for pain Oxycodone 5 MG tablet Discontinued 5 - 1 0 mg PO EVERY 4 HOURS NEEDED as needed for Pain 60 5 0 June 14, 2017 1:00am October 07, 2017 8:53am Other acute postprocedural pain potassium chloride 10 meq extended release oral tablet (6 sources) Start: 12-10-2023 End: 06-30-2024 take 1 tablet by mouth once daily pravastatin sodium 20 mg oral tablet (20 sources) HMG-CoA Reductase Inhibitor Start: 08-07-2022 End: 08-30-2023 take 1 tablet by mouth once daily at bedtime pravastatin (PRAVACHOL) 20 mg tablet Take 1 tablet by mouth daily at bedtime. 90 tablet 3 08/30/2023 Active Start: 08-07-2022 take 1 tablet by deyvi th once daily at bedtime pravastatin (PRAVACHOL) 20 mg tablet Take 1 tablet by mouth daily at bedtime. 90 tablet 3 08/07/2022 Active Start: 08-07-2022 take 1 tablet by deyvi th once daily at bedtime pravastatin (PRAVACHOL) 20 mg tablet Take 1 tablet by mouth daily at bedtime. 90 tablet 3 08/07/2022 Active Start: 08-07-2022 take 1 tablet by deyvi th once daily at bedtime pravastatin (PRAVACHOL) 20 mg tablet Take 1 tablet by mouth daily at bedtime. 90 tablet 3 08/07/2022 Active Start: 08-07-2022 take 1 tablet by deyvi th once daily at bedtime pravastatin (PRAVACHOL) 20 mg tablet Take 1 tablet by mouth daily at bedtime. 90 tablet 3 08/07/2022 Active Start: 08-07-2022 take 1 tablet by deyvi th once daily at bedtime pravastatin (PRAVACHOL) 20 mg tablet Take 1 tablet by mouth daily at bedtime. 90 tablet 3 08/07/2022 Active Start: 08-07-2022 take 1 tablet by deyvi th once daily at bedtime pravastatin (PRAVACHOL) 20 mg tablet Take 1 tablet by mouth daily at bedtime. 90 tablet 3 08/07/2022 Active Start: 08-07-2022 take 1 tablet by deyvi th once daily at bedtime pravastatin (PRAVACHOL) 20 mg tablet Take 1 tablet by mouth daily at bedtime. 90 tablet 3 08/07/2022 Active Start: 08-30-2017 End: 05-21-2022 take 1 tablet by mouth at bedtime Comment on above: Take 1 tablet by deyvi th daily at bedtime. predniSONE 10 mg oral tablet (2 sources) Start: 09-17-2023 End: 09-26-2023 predniSONE (DELTASONE) 10 mg tablet Indications: Viral bronchitis Take 4 tabs daily for 3 days, then 2 tabs daily for 3 days, then 1 tab daily for 3 days with food. 21 tablet 0 09/17/2023 09/26/2023 Active sertraline 25 mg oral tablet (2 sources) Serotonin Reuptake Inhibitor Start: 05-06-2024 sucralfate 1000 mg oral tablet (20 sources) Aluminum Complex Start: 09-03-2024 take 1 tablet by mouth three times daily sucralfate (CARAFATE) 1 gram tablet Take 1 g by mouth three times a day. 09/03/2024 Active Start: 10-08-2022 End: 05-16-2024 take 1 tablet by mouth three times daily before mealtime sucralfate (CARAFATE) 1 gram tablet Take 1 tablet by mouth three times a day before meals. 90 tablet 5 11/18/2023 05/16/2024 Active Start: 06-01-2020 take 1 g by mouth twice daily Sucralfate Active 1 GM PO TWICE A DAY June 01, 2020 12:00am Start: 05-03-2020 End: 09-29-2022 take 1 tablet by mouth three times daily before mealtime sucralfate (CARAFATE) 1 gram tablet Take 1 tablet by mouth three times daily before meals. 90 tablet 5 11/28/2021 05/27/2022 Active Comment on above: Take 1 tablet by deyvi th three times daily before meals. Take 1 tablet by deyvi th three times a day before meals. tirzepatide (MOUNJARO SQ) (3 sources) tirzepatide (MOUNJARO SQ) Inject subcutaneously. Active triazolam 0.125 mg oral tablet (1 source) Benzodiazepine Start: 08-31-19 take 1 dose by mouth once daily at bedtime Halcion Dose : 0.125 mg =, Oral, qHS Start Date: 08/30/17 Status: Ordered Medication Dispense Status: Completed Total Allowed Fills: 1 Fills Dispensed: 0 Completed/Discontinued Medications Medication Drug Class(es) Dates Sig (Normalized) Sig (Original) acetaminophen 325 mg oral tablet (20 sources) Start: 11-05-2020 End: 05-06-2024 Acetaminophen (Tylenol) 325 mg Tablet Discontinued 650 mg PO EVERY 6 HOURS NEEDED as needed for Pain Score 1-10/Temp > 100.7 F 0 0 November 05, 2020 12:00am May 06, 2024 6:37pm Start: 04-01-2019 End: 06-30-2024 acetaminophen (TYLENOL) 325 mg tablet Take 650 mg by mouth. 04/01/2019 06/30/2024 Discontinued End: 05-21-2022 take 2 tablets by mouth every eight hours as needed acetaminophen (TYLENOL) 500 mg tablet Take 1,000 mg by mouth every 8 hours as needed. 0 05/21/2022 Discontinued (Discontinued by Patient) Comment on above: Take 1,000 mg by deyvi every 8 hours as needed. acetaminophen 325 mg / butalbital 50 mg / caffeine 40 mg oral capsule (20 sources) Barbiturate, Central Nervous System Stimulant, Methylxanthine Start: 021 End: 023 take 1 capsule by mouth every six hours as needed acetaminophen 325 mg-caffeine 40 mg-butalbital 50 mg (FIORICET) per capsule Indications: Type 2 diabetes mellitus with diabetic neuropathy, with long-term current use of insulin (HCC) Take 1 capsule by mouth every 6 hours as needed. 12 capsule 0 06/23/2020 05/21/2022 Discontinued (Discontinued by Patient) Comment on above: Take 1 capsule by mo [facility] every 6 hours as needed. [id number] 200 actuat albuterol 0.09 mg/actuat metered dose inhaler (16 sources) beta2-Adrenergic Agonist Start: 024 End: 025 take 2 puff(s) by inhalation every four hours as needed for wheezing albuterol HFA (PROVENTIL HFA, VENTOLIN HFA) 90 mcg/actuation inhaler Indications: Viral bronchitis Inhale 2 Puffs as instructed every 4 hours as needed for wheezing/shortness of breath. 1 Each 09/17/2023 06/30/2024 Discontinued (Other) Start: 03-27-2019 End: 04-01-2019 Albuterol Sulfate 1 INHALER inhaler Discontinued 1 - 2 NMA inhalation EVERY 4 HOURS NEEDED as needed for Wheezing 1 0 March 27, 2019 1:00am April 01, 2019 12:15pm Start: 03-27-2019 End: 04-01-2019 take 1 puff(s) by inhalation every four hours as needed Albuterol Sulfate Discontinued 1 - 2 PUFF inhalation EVERY 4 HOURS NEEDED March 27, 2019 12:00am April 01, 2019 11:15am Back Brace [facility] (11 sources) Start: 01-07-2022 End: 05-21-2022 Back Brace misc Indications: DDD (degenerative disc disease), lumbar , Fibromyalgia , Lumbosacral radiculopathy at L5 1 Each once daily. M51.36 DDD (degenerative disc disease), lumbar (primary encounter diagnosis) M79.7 Fibromyalgia M54.17 Lumbosacral radiculopathy at L5 1 Each 0 01/07/2022 05/21/2022 Discontinued (Discontinued by Patient) Start: 01-07-2022 Back Brace mis c Indications: DDD (degenerative disc disease), lumbar , Fibromyalgia , Lumbosacral radiculopathy at L5 1 Each once daily. M51.36 DDD (degenerative disc disease), lumbar (primary encounter diagnosis) M79.7 Fibromyalgia M54.17 Lumbosacral radiculopathy at L5 1 Each 0 01/07/2022 Active Comment on above: 1 Each once daily. M 51.36 DDD (degenerative disc disease), lumbar (primary encounter diagnosis) M79.7 Fibromyalgia M54.17 Lumbosacral radiculopathy at L5 benzonatate 100 mg oral capsule (18 sources) Non-narcotic Antitussive Start: 2023 End: 2023 take 2 capsules by mouth every eight hours as needed benzonatate (TESSALON PERLES) 100 mg capsule Take 2 capsules by mouth three times a day as needed. 30 capsule 07/27/2023 09/23/2023 Discontinued Comment on above: Take 2 capsules by m outh three times a day as needed. chondroitin sulfates 400 mg / glucosamine sulfate 500 mg / methylsulfonylmethane 167 mg oral tablet (5 sources) Start: 2013 End: 2013 take 1 tablet by mouth once daily Glucosamine Jtd-Yqryexgbtk-Nuk 1 EACH tablet Discontinued 1 NMA PO DAILY April 17, 2013 1:00am April 18, 2013 4:22pm Start: 04-17-2013 End: 04-18-2013 Glucosamine Hlp-Vwraqlgdqa-D sm Discontinued 1 EACH PO DAILY April 17, 2013 12:00am April 18, 2013 3:22pm ergocalciferol 1.25 mg oral capsule (5 sources) Provitamin D2 Compound Start: 04-17-2013 End: 04-18-2013 Ergocalciferol (Vitamin D2) (Vitamin D) 50,000 UNIT capsule Discontinued 38907 U PO Q7D April 17, 2013 1:00am April 18, 2013 4:22pm ferrous sulfate 325 mg oral tablet (18 sources) Start: 09-12-2023 End: 12-04-2023 take 1 tablet by mouth twice daily at mealtime ferrous sulfate 325 mg (65 mg iron) tablet Take 1 tablet by mouth two times a day with meals. 90 tablet 1 09/12/2023 12/04/2023 Discontinued (Other) FLUoxetine 20 mg oral capsule (14 sources) Serotonin Reuptake Inhibitor Start: 04-17-2019 take 60 mg by mouth once daily Fluoxetine Active 60 MG PO DAILY April 17, 2019 12:00am Start: 08-30-2017 PROzac 20 mg o ral capsule Dose : 20 mg = 1 cap(s), Oral, qDay, # 30 cap(s), 0 Refill(s) Start Date: 08/30/17 Status: Ordered Medication Dispense Status: Completed Quantity: 30.0 Unit: cap(s) Total Allowed Fills: 1 Fills Dispensed: 0 Start: 09-29-2016 End: 06-30-2024 take 3 capsules by mouth once daily Fluoxetine 20 MG capsule Discontinued 60 mg PO DAILY April 17, 2019 1:00am May 06, 2024 6:37pm mood Comment on above: Take 3 capsules by m out once daily. fluticasone propionate 0.05 mg/actuat metered dose nasal spray (20 sources) Corticosteroid Start: 9 End: 3 take 2 spray(s) by mouth once daily fluticasone (FLONASE) 50 mcg/actuation nasal spray Indications: Cough Use 2 Sprays in each nostril once daily. Rinse mouth after use. 1 Bottle 11 11/15/2018 05/21/2022 Discontinued (Discontinued by Patient) Comment on above: Use 2 Sprays in each nostril once daily. Rinse mouth after use. furosemide 20 mg oral tablet (20 sources) Loop Diuretic Start: 4 End: 5 furosemide (LASIX) 20 mg tablet Take 1 tablet by mouth two times a day. Patient may adjust from baseline 40 mg daily up to 40 mg twice daily based on weight gain greater than 3 pounds plus either increased shortness of breath or increased swelling. 90 tablet 1 09/16/2023 06/30/2024 Discontinued (Other) Start: 02-18-2023 End: 09-14-2023 furosemide (LASIX) 20 mg tab let Take 1 tablet by mouth two times a day. Patient may adjust from baseline 40 mg daily up to 40 mg twice daily based on weight gain greater than 3 pounds plus either increased shortness of breath or increased swelling. 90 tablet 1 02/18/2023 09/14/2023 Discontinued Start: 06-24-2021 End: 12-19-2022 furosemide (LASIX) 20 mg tab let Take 1 tablet by mouth twice daily. Patient may adjust from baseline 40 mg daily up to 40 mg twice daily based on weight gain greater than 3 pounds plus either increased shortness of breath or increased swelling. 90 tablet 1 11/06/2021 Active Start: 06-10-2020 take 40 mg by mouth twice riri y Furosemide Active 40 MG PO TWICE A DAY June 10, 2020 7:28pm Start: 06-03-2020 End: 06-10-2020 take 2 tablets by mouth once daily Furosemide 20 MG tablet Discontinued 40 mg PO DAILY 60 June 03, 2020 11:09am June 10, 2020 8:28pm Start: 06-03-2020 End: 06-10-2020 take 40 mg by mouth once daily Furosemide Discontinued 40 MG PO DAILY 60 June 03, 2020 10:09am June 10, 2020 7:28pm Start: 08-30-2017 End: 05-15-2024 take 1 tablet by mouth once daily Furosemide 20 MG tablet Discontinued 20 mg PO DAILY June 10, 2020 8:28pm May 15, 2024 1:30pm water pill Start: 04-18-2013 End: 10-13-2015 take 1 tablet by mouth once daily Furosemide 40 MG tablet Discontinued 40 mg PO DAILY 14 0 April 18, 2013 1:00am October 13, 2015 2:31pm Comment on above: Take 1 tablet by deyvi th twice daily. Patient may adjust from baseline 40 mg daily up to 40 mg twice daily based on weight gain greater than 3 pounds plus either increased shortness of breath or increased swelling. Take 1 tablet by deyvi th two times a day. Patient may adjust from baseline 40 mg daily up to 40 mg twice daily based on weight gain greater than 3 pounds plus either increased shortness of breath or increased swelling. ibuprofen 400 mg oral tablet (20 sources) Nonsteroidal Anti-inflammatory Drug Start: 11-05-2020 End: 05-06-2024 Ibuprofen 400 mg Tablet Discontinued 400 mg PO EVERY 4 HOURS NEEDED as needed for Pain Score 1-10/Temp > 100.7 F 0 0 November 05, 2020 12:00am May 06, 2024 6:37pm Start: 11-05-2020 take 400 mg by mouth every four hours as needed Ibuprofen Active 400 MG PO EVERY 4 HOURS NEEDED 0 November 04, 2020 11:00pm Start: 09-29-2016 ibuprofen (MOT RIN) 400 mg tablet Take 600 mg by mouth every 8 hours as needed for pain. 09/29/2016 Active End: 05-21-2022 take 3 tablets by mouth every twelve hours as needed ibuprofen (MOTRIN) 200 mg tablet Take 600 mg by mouth twice daily as needed. 0 05/21/2022 Discontinued (Discontinued by Patient) Comment on above: Take 600 mg by mouth twice daily as needed. Inhalational Spacing Device (1 source) Start: 09-17-2023 End: 09-17-2023 Inhalational Spacing Device 1 Device one time only for 1 dose. 1 Each 0 09/17/2023 09/17/2023 3 ml insulin glargine 100 unt/ml pen injector (20 sources) Insulin Analog Start: 07-10-2021 insulin glargine (LANTUS SOLOSTAR U-100 INSULIN) 100 unit/mL (3 mL) Inject 60 Units subcutaneously daily at bedtime. 5 Pen 11 07/10/2021 Active Start: 06-12-2020 End: 05-06-2024 inject 40 [IU] by subcutaneous injection at bedtime Insulin Glargine 100 UNIT/ML insulin pen Discontinued 40 U SQ AT BEDTIME 1 0 June 12, 2020 11:24am May 06, 2024 6:37pm dm Start: 05-18-2019 End: 07-07-2021 insulin glargine (LANTUS STEPHANIE OSTAR U-100 INSULIN) 100 unit/mL (3 mL) Inject 60 Units subcutaneously daily at bedtime. 5 Pen 11 06/15/2020 07/07/2021 Discontinued Start: 04-17-2019 End: 06-12-2020 inject 60 [IU] by subcutaneous injection at bedtime Insulin Glargine 100 UNIT/ML insulin pen Discontinued 60 U SQ AT BEDTIME April 17, 2019 1:00am June 12, 2020 11:24am dm Start: 08-30-2017 inject 1 dose by sub cutaneous injection once daily at bedtime Lantus Solostar Pen 100 units/mL 3 mL Pen (NF) Dose : 64 unit(s) =, Subcutaneous, qHS Start Date: 08/30/17 Status: Ordered Medication Dispense Status: Completed Total Allowed Fills: 1 Fills Dispensed: 0 Comment on above: Inject 60 Units subc utaneously daily at bedtime. 10 ml iron sucrose 20 mg/ml injection (5 sources) Parenteral Iron Replacement Start: 12-17-2024 End: 12-17-2024 200 mg, INTRAVENOUS, ONCE, 1 dose, On Ligia 12/17/24 at 1430 Start: 12-15-2024 End: 12-15-2024 200 mg, INTRAVENOUS, ONCE, 1 dose, On Sat12/15/24 at 1400 Start: 12-01-2024 End: 12-01-2024 200 mg, INTRAVENOUS, ONCE, 1 dose, On e 12/01/24 at 1500 Start: 11-26-2024 End: 11-26-2024 200 mg, INTRAVENOUS, ONCE, 1 dose, On Ligia 11/26/24 at 1000 Start: 11-24-2024 End: 11-24-2024 200 mg, INTRAVENOUS, ONCE, 1 dose, On Sat11/24/24 at 1500 lamoTRIgine 25 mg oral tablet (20 sources) Mood Stabilizer, Anti-epileptic Agent Start: 12-30-2023 End: 06-30-2024 take 1 tablet by mouth in the evening, then take 2 tablets by mouth in the evening lamoTRIgine (LAMICTAL) 25 mg tablet TAKE 1 TABLET BY MOUTH IN THE EVENING FOR 14 DAYS, THEN INCREASE TO 2 TABLETS IN THE EVENING 12/30/2023 06/30/2024 Discontinued (Patient chooses alternative therapy) Start: 12-04-2022 End: 06-19-2023 take 1 tablet by mouth once daily, then take 2 tablets by mouth once daily, then take 3 tablets by mouth once daily lamoTRIgine (LAMICTAL) 25 mg tablet Take 1 tablet by mouth once daily for 14 days, THEN 2 tablets once daily for 14 days, THEN 3 tablets once daily for 14 days. 84 tablet 0 12/04/2022 06/19/2023 Discontinued (Other) Start: 11-09-2021 End: 12-04-2022 take 1 tablet by mouth twice daily lamoTRIgine (LAMICTAL) 100 mg tablet Take 1 tablet by mouth twice daily. 180 tablet 0 12/13/2021 03/13/2022 Active Start: 07-12-2021 End: 10-01-2021 take 1 tablet by mouth twice daily lamoTRIgine (LAMICTAL) 100 mg tablet Take 1 tablet by mouth twice daily. 60 tablet 1 09/01/2021 Active Start: 05-18-2021 End: 07-17-2021 take 1 tablet by mouth once daily in the evening lamoTRIgine (LAMICTAL) 150 mg tablet Take 1 tablet by mouth every evening. 30 tablet 1 05/18/2021 07/17/2021 Active Comment on above: Take 1 tablet by deyvi th every evening. Take 1 tablet by deyvi th twice daily. Take 1 tablet by deyvi th once daily for 14 days, THEN 2 tablets once daily for 14 days, THEN 3 tablets once daily for 14 days. lidocaine 0.05 mg/mg medicated patch (20 sources) Antiarrhythmic, Amide Local Anesthetic Start: 05-22-19 End: 06-19-19 lidocaine (LIDODERM) 5 % as needed. 0 05/22/2022 06/19/2023 Discontinued (Other) Comment on above: as needed. meloxicam 7.5 mg oral tablet (6 sources) Nonsteroidal Anti-inflammatory Drug Start: 08-31-19 End: 04-20-19 take 1 tablet by mouth once daily Meloxicam 7.5 MG tablet Discontinued 7.5 mg PO DAILY April 17, 2019 1:00am April 20, 2019 1:34pm pain 24 hr metFORMIN hydrochloride 750 mg extended release oral tablet (20 sources) Biguanide Start: 09-12-19 End: 07-01-19 take 1 tablet by mouth once daily at breakfast metFORMIN ER (GLUCOPHAGE XR) 750 mg 24 hr tablet Indications: Type 2 diabetes mellitus with diabetic neuropathy, without long-term current use of insulin (HCC) Take 1 tablet by mouth daily with breakfast. 90 tablet 1 09/12/2023 06/30/2024 Discontinued (Discontinued by another Health Care Provider) Start: 04-17-2019 End: 08-17-2021 take 1 tablet by mouth twice daily Start: 08-30-2017 metFORMIN 500 mg oral tablet Dose : 500 mg = 1 tab(s), Oral, BID Start Date: 08/30/17 Status: Ordered Medication Dispense Status: Completed Total Allowed Fills: 1 Fills Dispensed: 0 Start: 04-17-2013 End: 04-18-2013 take 1 tablet by mouth twice daily Metformin 500 MG tablet Discontinued 500 mg PO TWICE A DAY April 17, 2013 1:00am April 18, 2013 4:22pm Comment on above: Take 1 tablet by deyvi th twice daily with meals. Take 1 tablet by deyvi th twice daily with meals. Currently on hold but may restart if needed morphine sulfate 15 mg oral tablet (20 sources) Opioid Agonist Start: 04-17-2019 End: 04-20-2019 take 1 tablet by mouth three times daily Morphine 15 MG tablet Discontinued 15 mg PO THREE TIMES A DAY April 17, 2019 1:00am April 20, 2019 1:34pm pain Start: 04-17-2019 End: 04-20-2019 take 15 mg by mouth at bedtime Morphine Discontinued 1 5 MG PO AT BEDTIME April 17, 2019 12:00am April 20, 2019 12:34pm Start: 04-17-2019 End: 04-20-2019 take 30 mg by mouth once daily Morphine Discontinued 3 0 MG PO DAILY April 17, 2019 12:00am April 20, 2019 12:34pm Start: 04-17-2019 End: 04-20-2019 take 30 mg by mouth once daily Morphine Discontinued 3 0 MG PO DAILY April 17, 2019 1:53pm April 20, 2019 1:34pm Start: 04-17-2019 End: 04-20-2019 take 15 mg by mouth at bedtime Morphine Discontinued 1 5 MG PO AT BEDTIME April 17, 2019 1:53pm April 20, 2019 1:34pm Start: 04-01-2019 End: 04-06-2019 take 1 tablet by mouth twice daily Morphine 15 MG tablet Discontinued 15 mg PO TWICE A DAY 10 5 0 April 01, 2019 April 05, 2019 1:00am April 06, 2019 1:08am Rheumatoid arteritis Fibromyalgia Chronic pain Rheumatic fever without heart involvement Other chronic pain Start: 03-29-2019 End: 04-01-2019 take 2 tablets by mouth twice daily in the morning, then take 1 tablet by mouth once daily at bedtime Morphine Discontinued 15 MG PO TWICE A DAY March 29, 2019 12:00am April 01, 2019 11:16am 2 tab in am, 1 tab QHS Start: 03-29-2019 End: 04-01-2019 take 2 tablets by mouth twice daily in the morning, then take 1 tablet by mouth once daily at bedtime Morphine Discontinued 15 MG PO TWICE A DAY March 29, 2019 4:23pm April 01, 2019 12:16pm 2 tab in am, 1 tab QHS Start: 08-30-2017 take 1 tablet by deyvi th every hour in the morning, then take 2 tablets by mouth once daily in the evening morphine 15 mg/8 hr oral tablet, extended release TAKE 1 TABLET IN THE MORNING AND 2 TABLETS IN THE IN THE EVENING DAILY Start Date: 08/30/17 Status: Ordered Medication Dispense Status: Completed Total Allowed Fills: 1 Fills Dispensed: 0 Start: 05-24-2017 End: 04-01-2019 take 1 tablet by mouth three times daily Morphine 15 mg tablet extended release Discontinued 15 mg PO THREE TIMES A DAY October 07, 2017 8:52am April 01, 2019 12:10pm pain Morphine 15 MG tablet,oral only,ext.rel.12 hr (6 sources) Start: 04-17-2019 End: 04-20-2019 Morphine 15 MG tablet,oral only,ext.rel.12 hr Discontinued 30 mg PO DAILY April 17, 2019 1:00am April 20, 2019 1:34pm pain Start: 04-17-2019 End: 04-20-2019 take 1 tablet by mouth every hour at bedtime Morphine 15 MG tablet,oral only,ext.rel.12 hr Discontinued 15 mg PO AT BEDTIME April 17, 2019 1:00am April 20, 2019 1:34pm pain Start: 04-17-2019 End: 04-20-2019 Morphine 15 MG tablet,oral only,ext.rel.12 hr Discontinued 30 mg PO DAILY April 17, 2019 1:00am April 20, 2019 1:34pm Start: 04-17-2019 End: 04-20-2019 take 1 tablet by mouth every hour at bedtime Morphine 15 MG tablet,oral only,ext.rel.12 hr Discontinued 15 mg PO AT BEDTIME April 17, 2019 1:00am April 20, 2019 1:34pm Start: 03-29-2019 End: 04-01-2019 take 2 tablets by mouth twice daily in the morning, then take 1 tablet by mouth once daily at bedtime Morphine 15 MG tablet,oral only,ext.rel.12 hr Discontinued 15 mg PO TWICE A DAY March 29, 2019 1:00am April 01, 2019 12:16pm pain 2 tab in am, 1 tab QHS Start: 03-29-2019 End: 04-01-2019 take 2 tablets by mouth twice daily in the morning, then take 1 tablet by mouth once daily at bedtime Morphine 15 MG tablet,oral only,ext.rel.12 hr Discontinued 15 mg PO TWICE A DAY March 29, 2019 1:00am April 01, 2019 12:16pm 2 tab in am, 1 tab QHS nystatin 100 unt/mg topical powder (20 sources) Polyene Antifungal Start: 09-29-2021 End: 06-19-2023 nystatin (MYCOSTATIN) powder Apply 1 application to affected area twice daily. 17 g 5 09/29/2021 06/19/2023 Discontinued (Other) Comment on above: Apply 1 application to affected area twice daily. Plexus Slim (5 sources) Start: 04-17-2013 End: 04-18-2013 Plexus Slim Discontinued April 17, 2013 3:21pm April 18, 2013 4:23pm Start: 04-17-2013 End: 04-18-2013 Plexus Slim Discontinued Apr 12:00am April 18, 2013 3:23pm Start: 04-17-2013 End: 04-18-2013 Plexus Slim Discontinued Apr 1:00am April 18, 2013 4:23pm polyethylene glycol [id number] [id number] mg / potassium chloride 2970 mg / sodium bicarbonate 6740 mg / sodium chloride 5860 mg / sodium sulfate 20592 mg powder for oral solution (1 source) Osmotic Laxative Start: 12-01-2019 End: 09-27-2020 GAVILYTE-G 236-22.74-6.74 -5.86 gram suspension as directed. 12/01/2019 09/27/2020 Discontinued propranolol hydrochloride 20 mg oral tablet (20 sources) beta-Adrenergic Clau Start: 09-22-2021 End: 12-13-2021 take 0.5 tablet by mouth twice daily propranolol (INDERAL) 20 mg tablet Indications: Bradycardia Take 0.5 tablets by mouth twice daily. 60 tablet 1 09/22/2021 12/13/2021 Discontinued (Side Effects) Start: 09-01-2021 End: 10-31-2021 take 1 tablet by mouth twice daily propranolol (INDERAL) 20 mg tablet Take 1 tablet by mouth twice daily. 60 tablet 1 09/01/2021 09/22/2021 Discontinued Comment on above: Take 1 tablet by deyvi th twice daily. Take 0.5 tablets by mouth twice daily. tiZANidine 4 mg oral capsule (15 sources) Central alpha-2 Adrenergic Agonist Start: 0 End: 0 take 1 capsule by mouth twice daily Tizanidine 4 MG capsule Discontinued 4 mg PO TWICE A DAY April 17, 2019 1:00am April 20, 2019 1:34pm spasms Start: 03-29-2019 End: 04-01-2019 take 1 capsule by mouth once daily Tizanidine 4 MG capsule Discontinued 4 mg PO DAILY March 29, 2019 1:00am April 01, 2019 12:16pm back pain Start: 10-07-2017 End: 05-07-2018 take 1 capsule by mouth twice daily Tizanidine 4 mg capsule Discontinued 4 mg PO TWICE A DAY October 07, 2017 12:00am May 07, 2018 9:19am spasms traMADol hydrochloride 50 mg oral tablet (6 sources) Opioid Agonist Start: 05-06-2024 End: 05-15-2024 take 1 tablet by mouth three times daily as needed Tramadol 50 mg tablet Discontinued 50 mg PO 3 TIMES DAILY NEEDED May 06, 2024 1:00am May 15, 2024 1:33pm pain Start: 01-13-2024 End: 06-30-2024 take 1 tablet by mouth every twelve hours traMADol (ULTRAM) 50 mg tablet Take 1 tablet by mouth every 12 hours. 01/13/2024 06/30/2024 Discontinued Problems Active Problems Problem Classification Problem Date Documented Da te Episodic/Chronic Acute bronchitis (1 source) Viral bronchitis; Translations: [Acute bronchitis due to other specified organisms] 09-17-2023 Episodic Anxiety disorders (20 sources) Anxiety; Translations: [Anxiety disorder, unspecified] Onset: 0 11-15-2009 Chronic Cardiac dysrhythmias (2 sources) Bradycardia; Translations: [Bradycardia, unspecified] Episodic Chronic kidney disease (20 sources) Chronic kidney disease stage 3; Translations: [Chronic renal insufficiency, stage 3 (moderate)] Onset: 1 06-10-2020 Chronic Chronic kidney disease (1 source) Chronic kidney disease; Translations: [Chronic kidney disease, stage 3 unspecified] Onset: 5 Chronic obstructive pulmonary disease and bronchiectasis (1 source) Bronchitis; Translations: [Bronchitis, not specified as acute or chronic] 09-23-2023 Episodic Conditions associated with dizziness or vertigo (1 source) Dizziness and giddiness; Translations: [Dizziness and giddiness] Onset: 5 Episodic Conduction disorders (20 sources) Right bundle branch block; Translations: [Unspecified right bundle-branch block] Onset: 3 06-07-2022 Chronic Congestive heart failure; nonhypertensive (20 sources) Congestive heart failure; Translations: [Heart failure, unspecified] Onset: 3 Chronic Deficiency and other anemia (20 sources) Iron deficiency anemia; Translations: [Iron deficiency anemia, unspecified] Onset: 6 04-03-2021 Episodic Deficiency and other anemia (2 sources) Iron deficiency anemia, unspecified; Translations: [Iron deficiency anemia, unspecified iron deficiency anemia type] Onset: 1 Episodic Diabetes mellitus with complications (20 sources) Type 2 diabetes mellitus; Translations: [Type 2 diabetes mellitus with diabetic neuropathy, unspecified] Onset: 6 Resolved: 6 04-03-2021 Chronic Diabetes mellitus without complication (1 source) Diabetes mellitus without complication; Translations: [Type 2 diabetes mellitus with stage 3b chronic kidney disease, without long-term current use of insulin (HCC)] Onset: 3 Disorders of lipid metabolism (20 sources) Mixed hyperlipidemia; Translations: [Mixed hyperlipidemia] Onset: 6 06-23-2011 Chronic Comment on above: on meds E Codes: Fall (1 source) Fall; Translations: [Unspecified fall, subsequent encounter] Episodic Esophageal disorders (20 sources) Gastroesophageal reflux disease without esophagitis; Translations: [Gastro-esophageal reflux disease without esophagitis] Onset: 3 Chronic Esophageal disorders (1 source) Esophageal disorders; Translations: [Gastroesophageal reflux disease with esophagitis without hemorrhage] Onset: 3 Hypertension with complications and secondary hypertension (1 source) Hypertensive heart and chronic kidney disease with heart failure and stage 1 through stage 4 chronic kidney disease, or unspecified chronic kidney disease; Translations: [Hypertensive heart and chronic kidney disease with heart failure and stage 1 through stage 4 chronic kidney disease, or unspecified chronic kidney disease] Onset: 5 Chronic Malaise and fatigue (20 sources) Fatigue; Translations: [Other fatigue] Onset: 6 Resolved: 0 Episodic Miscellaneous mental health disorders (20 sources) Psychalgia; Translations: [Pain disorder with related psychological factors] Onset: 4 11-09-2013 Chronic Mood disorders (20 sources) Chronic depression; Translations: [Chronic depression] Onset: 6 Resolved: 3 06-23-2020 Chronic Nutritional deficiencies (20 sources) Vitamin D deficiency; Translations: [Vitamin D deficiency, unspecified] Onset: 5 06-19-2012 Chronic Osteoarthritis (20 sources) Osteoarthritis of left knee joint; Translations: [Unilateral primary osteoarthritis, left knee] Onset: 9 Resolved: 0 10-06-2015 Chronic Other acquired deformities (1 source) Postural kyphosis; Translations: [Postural kyphosis, site unspecified] 01-01-2022 Chronic Other aftercare (3 sources) Drug therapy finding; Translations: [Other care home (current) drug therapy] Episodic Other aftercare (2 sources) Marijuana user; Translations: [Other care home (current) drug therapy] Episodic Other aftercare (2 sources) Patient encounter status; Translations: [Other care home (current) drug therapy] Episodic Other aftercare (2 sources) Long-term current use of drug therapy; Translations: [Other terminal computer operator (current) drug therapy] 01-17-2024 Episodic Other aftercare (1 source) Other terminal computer operator (current) drug therapy; Translations: [Encounter for long-term (current) use of medications] Onset: 5 Episodic Other and ill-defined heart disease (20 sources) Left ventricular diastolic dysfunction ; Translations: [Heart disease, unspecified] Onset: 8 09-30-2017 Chronic Other and ill-defined heart disease (20 sources) Diastolic dysfunction; Translations: [Other ill-defined heart diseases] Onset: 3 06-07-2022 Chronic Other and unspecified benign neoplasm (5 sources) Pleomorphic adenoma of parotid gland; Translations: [Benign neoplasm of parotid gland] 11-13-2020 Episodic Other and unspecified benign neoplasm (1 source) History of polyp of colon; Translations: [Personal history of colonic polyps] Episodic Other and unspecified benign neoplasm (1 source) Tubular adenoma of colon; Translations: [Benign neoplasm of colon, unspecified] 08-01-2023 Episodic Other circulatory disease (1 source) History of cerebrovascular disease; Translations: [Personal history of other diseases of the circulatory system] Onset: 5 Episodic Other circulatory disease (1 source) Personal history of other diseases of the circulatory system; Translations: [Personal history of other diseases of the circulatory system] Onset: 5 Episodic Other circulatory disease (1 source) Orthostatic hypotension; Translations: [Orthostatic hypotension] Onset: 5 Episodic Other connective tissue disease (20 sources) [...] Onset: 5 12-30-2014 Chronic Other gastrointestinal disorders (3 sources) Intestinal malabsorption, unspecified; Translations: [Iron malabsorption (HCC)] Onset: 3 Chronic Other gastrointestinal disorders (1 source) Change in bowel habit; Translations: [Change in bowel habits] Onset: 3 Episodic Other lower respiratory disease (4 sources) Cough; Translations: [Acute cough] 09-17-2023 Episodic Other nervous system disorders (20 sources) Metabolic encephalopathy; Translations: [Metabolic encephalopathy] Onset: 3 06-07-2022 Chronic Other nervous system disorders (1 source) Neuropathy 08-30-2017 Chronic Other nervous system disorders (1 source) Other chronic pain; Translations: [Chronic bilateral low back pain without sciatica] Onset: 5 Chronic Other nervous system disorders (3 sources) Tremor; Translations: [Tremor, unspecified] Episodic Other nervous system disorders (1 source) Other abnormalities of gait and mobility; Translations: [Other abnormalities of gait and mobility] Onset: 5 Episodic Other nutritional; endocrine; and metabolic disorders (20 sources) Obesity; Translations: [Obesity, unspecified] 06-23-2011 Chronic Other nutritional; endocrine; and metabolic disorders (5 sources) Body mass index 40+ - severely obese; Translations: [Morbid (severe) obesity due to excess calories] 05-03-2018 Chronic Other nutritional; endocrine; and metabolic disorders (5 sources) Body mass index 30+ - obesity; Translations: [Obesity, unspecified] 06-10-2020 Chronic Other nutritional; endocrine; and metabolic disorders (1 source) Weight loss; Translations: [Abnormal weight loss] Episodic Other skin disorders (1 source) Localized swelling, mass and lump, neck; Translations: [Localized swelling, mass and lump, neck] Onset: 5 Episodic Other upper respiratory infections (1 source) Chronic sinusitis; Translations: [Chronic sinusitis, unspecified] 07-27-2023 Chronic Residual codes; unclassified (2 sources) Obstructive sleep apnea syndrome; Translations: [Obstructive sleep apnea (adult) (pediatric)] Chronic Residual codes; unclassified (2 sources) Menopause present; Translations: [Asymptomatic menopausal state] 08-01-2023 Episodic Residual codes; unclassified (1 source) Chronic back pain 08-30-2017 Episodic Rheumatoid arthritis and related disease (5 sources) Rheumatoid arthritis; Translations: [Rheumatoid arthritis, unspecified] 06-11-2020 Chronic Spondylosis; intervertebral disc disorders; other back problems (20 sources) Degeneration of lumbar intervertebral disc; Translations: [Other intervertebral disc degeneration, lumbar region] Onset: 5 06-05-2018 Chronic Spondylosis; intervertebral disc disorders; other back problems (20 sources) Thoracic and lumbosacral neuritis; Translations: [Thoracic or lumbosacral neuritis or radiculitis, unspecified] Onset: 8 Resolved: 7 12-11-2007 Episodic Sprains and strains (8 sources) Sprain of foot; Translations: [Unspecified sprain of left foot, initial encounter] 09-23-2021 Episodic Superficial injury; contusion (5 sources) Contusion, knee and lower leg; Translations: [Contusion of left knee, initial encounter] 09-23-2021 Episodic Systemic lupus erythematosus and connective tissue disorders (20 sources) Lupus erythematosus; Translations: [Systemic lupus erythematosus, unspecified] Onset: 5 Chronic Unclassified (1 source) Chronic bilateral low back pain without sciatica; Translations: [Chronic bilateral low back pain without sciatica] Onset: 5 Unclassified (1 source) Low back pain, unspecified back pain laterality, unspecified chronicity, unspecified whether sciatica present; Translations: [Low back pain, unspecified back pain laterality, unspecified chronicity, unspecified whether sciatica present] Onset: 5 Past or Other Problems Problem Classification Problem Date Documented Da te Episodic/Chronic Aspiration pneumonitis; food/vomitus (20 sources) Aspiration pneumonia; Translations: [Pneumonitis due to inhalation of food and vomit] Onset: 0 Resolved: 1 10-26-2020 Episodic Chronic ulcer of skin (20 sources) Pressure ulcer of unspecified site, unspecified stage; Translations: [Pressure ulcer, unspecified site] Onset: 2 Resolved: 7 11-19-2016 Chronic Deficiency and other anemia (20 sources) Anemia; Translations: [Anemia, unspecified] Onset: 8 Resolved: 8 09-13-2017 Episodic Deficiency and other anemia (1 source) Other iron deficiency anemias; Translations: [Other iron deficiency anemia] Onset: 8 Episodic Diabetes mellitus without complication (20 sources) Diabetes mellitus; Translations: [Type 2 diabetes mellitus without complications] Onset: 6 Resolved: 6 04-03-2021 Chronic Esophageal disorders (20 sources) Esophagitis; Translations: [Esophagitis, unspecified] Onset: 0 Resolved: 3 02-01-2010 Episodic Fracture of lower limb (4 sources) Fracture of distal end of fibula; Translations: [Other fracture of upper and lower end of unspecified fibula, initial encounter for closed fracture] Onset: 5 05-23-2024 Episodic Gastritis and duodenitis (20 sources) Acute hemorrhagic gastritis; Translations: [Acute gastritis with bleeding] Onset: 8 Resolved: 0 05-26-2019 Episodic Gastrointestinal hemorrhage (20 sources) Blood-tinged feces; Translations: [Melena] Onset: 3 Episodic Menstrual disorders (20 sources) Disorder of female genital organs; Translations: [Irregular menstruation, unspecified] Onset: 8 Resolved: 9 06-05-2018 Chronic Nausea and vomiting (20 sources) Nausea; Translations: [Nausea] Onset: 8 Resolved: 9 Episodic Other connective tissue disease (20 sources) Enthesopathy of ankle AND/OR tarsus; Translations: [Other enthesopathy of unspecified foot and ankle] Onset: 1 06-23-2011 Episodic Other connective tissue disease (1 source) Fibromyalgia; Translations: [Fibromyalgia] Onset: 7 Episodic Other gastrointestinal disorders (20 sources) Altered bowel function; Translations: [Other specified symptoms and signs involving the digestive system and abdomen] Onset: 3 Episodic Other nervous system disorders (20 sources) Peripheral nerve disease ; Translations: [Polyneuropathy, unspecified] Onset: 2 Resolved: 0 04-03-2021 Chronic Other nervous system disorders (20 sources) H/O: brain disorder; Translations: [Personal history of other diseases of the nervous system and sense organs] Onset: 3 08-31-2022 Episodic Other non-traumatic joint disorders (20 sources) Pain in lower limb; Translations: [Pain in unspecified knee] Onset: 9 Resolved: 7 11-19-2016 Episodic Other screening for suspected conditions (not mental disorders or infectious disease) (20 sources) Electrocardiogram abnormal; Translations: [Abnormal electrocardiogram [ECG] [EKG]] Onset: 8 06-05-2018 Episodic Syncope (8 sources) Syncope; Translations: [Syncope and collapse] Onset: 5 09-23-2023 Episodic Results Test Name Value Interpretation Reference Range Facility [facility] 12-14-2024 CNOV Office Visit (PAINST ) MARNIECORINNA ([id number]) 1955 F Date Time Provider Department 12/14/24 10:45 AM MONET NEGRON During your visit today, we recorded the following information about you: Weight Height 90.7 kg 1.651 m Monet Negron APRN.CNP 12/14/2024 11:11 AM Signed History and Physical Assessment Patient Name: Corinna Carr MR #: [id number] Age: [age] year old Date:December 14, 2024 Referred by: Dr. Tyler Dixon Chief Complaint: This patient is a 69 year old female who presents today with complaints of LBP . Patient Entered Questionnaires PROMIS Score Percentiles 08/30/2021 05/24/2022 07/25/2023 PROMIS Global Health Scale Physical Health Percentile 4 15 7 Mental Health Percentile 5 26* 05/24/2022 Physical Health Physical Function Percentile 4 Pain Interference Percentile 8 Percentiles provide an indication of how the patient's score ranks in relation to the general population. Higher percentile rankings indicate better function/quality of life. 50th percentile is the average of the general population and indicates half of respondents had a worse score. > 31st percentile is within normal limits or better * < 31st percentile is at least ? SD worse than population, which may be clinically relevant < 16th percentile is at least 1 SD worse than population and warrants attention This Episode: Date of Onset for this episode: years ago Pattern: Constant. Character: Sharp. Severity: VAS Pain: 5/10 Current; 10/10 Worst; 4/10 Best. Location: LBP Radiation: non-radiating. Exacerbating Factors: Movement and sitting for too long. Alleviating Factors: Nothing makes my pain better. Associated Signs/Symptoms: Sleep disturbance; awakens during night due to pain. Sensory/Motor Changes: None. Progressive Weakness?: Yes. AM Stiffness?: Yes. Duration: 10 -15 minutes. Changes in Bowel/Bladder Control?: No. Location of Joint Swelling: Not Applicable. Location of Joint Pain: Not Applicable. PAST MEDICAL HISTORY Diagnosis Date Aspiration pneumonia ([facility]) 04/2019 [facility] DDD (degenerative disc disease) Depression Diabetes mellitus without mention of complication Fibromyalgia Hyperlipidemia Iron deficiency anemia, unspecified Dr Duong Iron malabsorption ([facility]) 10/23/2022 Lupus Obesity Vitamin D deficiency 2012 PAST SURGICAL HISTORY Procedure Laterality Date ARTHRP KNE CONDYLEANDPLATU MEDIALANDLAT COMPARTMENTS Left 02/25/[address] CARDIAC CATH 2007 no stenosis minimal plaque [...] lumbar fusion S SPINAL CORD STIM/IMPLANTN 01/2014 SOCIAL HISTORY[1] FAMILY HISTORY Problem Relation Age of Onset [...] No Family History Schizophrenia No Family History [address] Allergies: ALLERGIES No Known Allergies Current Outpatient Medications: tirzepatide (MOUNJARO SQ) Inject subcutaneously. sucralfate (CARAFATE) 1 gram tablet Take 1 g by mouth three times a day. hydrOXYzine HCl (ATARAX) 25 mg tablet 25 mg. alendronate (FOSAMAX) 70 mg tablet Take 70 mg by mouth one time a week. ondansetron (ZOFRAN) 4 mg tablet TAKE 1 TO 2 TABLETS BY MOUTH EVERY 8 HOURS NEEDED FOR NAUSEA FOR 5 DAYS ferrous sulfate (IRON, FERROUS SULFATE,) 325 mg (65 mg iron) tablet INFUSION hydrOXYchloroQUINE (PLAQUENIL) 200 mg tablet Take 1 tablet by mouth once daily. buPROPion XL (WELLBUTRIN XL) 150 mg 24 hr ta (more content not included)... Normal [facility] Prot/Creat Uron 11-24-2024 Protein/Creatinine (U) [Mass ratio] 0.53 mg/mg High <0.15 [facility] Comment on above: Order Comment: Speci men Type: URINE SPECIMENOrdering Facility: [facility] Address: [address] [place] [address] Result Comment: Adul t Proteinuria Categories: <0.15 mg/mg is considered normal to mildly increased 0.15 - 0.50 mg/mg is considered moderately increased >0.50 mg/mg is considered severely increased KDIGO. (2013). KDIGO 2012 Clinical Practice Guideline for the Evaluation and Management of Chronic Kidney Disease. Official Journal of the International Society of Nephrology, 3(1), 1-150. Performed By: #### 2 890-2 ####[facility] LABCLIA [id number] [place] [address] [place] Protein/Creatinine (U) [Mass ratio]on 11-24-2024 Creatinine (U) [Mass/Vol] 97.9 mg/dL Normal 20.0-300.0 [facility] Comment on above: Order Comment: Speci men Type: URINE SPECIMENOrdering Facility: [facility] Address: [address] [place] [address] Performed By: #### 2 890-2 ####[facility] LABCLIA [id number] [address], [facility] [place] Protein (U) [Mass/Vol] 52 mg/dL High 0-20 Cl [facility] Comment on above: Order Comment: Speci men Type: URINE SPECIMENOrdering Facility: [facility] Address: [address] [place] [address] Performed By: #### 2 890-2 ####[facility] LABIA [id number] [place] [address] [place] URINALYSIS, DIPSTICK ONLYon 11-24-2024 Bilirubin Ql (U) Negative Normal Negative [facility] Comment on above: Order Comment: Speci men Type: URINE SPECIMENOrdering Facility: [facility] Address: [address] [place] [address] Performed By: #### U A ####[facility] LABIA [id number] [place] [address] [place] Clarity (Unsp spec) Clear Normal Clear [facility] Comment on above: Order Comment: Speci men Type: URINE SPECIMENOrdering Facility: [facility] Address: [address] [place] [address] Performed By: #### U A ####[facility] LABIA [id number] [address], [facility] [place] Color (U) Yellow Normal Yellow [facility] Comment on above: Order Comment: Speci men Type: URINE SPECIMENOrdering Facility: [facility] Address: [address] [place] [address] Performed By: #### U A ####[facility] LABCLIA [id number] [address], [facility] [place] Glucose Test strip (U) [Mass/Vol] 2+ Abnormal Negative [facility] Comment on above: Order Comment: Speci men Type: URINE SPECIMENOrdering Facility: [facility] Address: [address] [place] [address] Performed By: #### U A ####[facility] LABCLIA [id number] [place] [address] [place] Hemoglobin Ql (U) Negative Normal Negative [facility] Comment on above: Order Comment: Speci men Type: URINE SPECIMENOrdering Facility: [facility] Address: [address] [place] [address] Performed By: #### U A ####[facility] LABCLIA [id number] [place] [address] [place] Ketones Ql (U) Negative Normal Negative [facility] Comment on above: Order Comment: Speci men Type: URINE SPECIMENOrdering Facility: [facility] Address: [address] [place] [address] Performed By: #### U A ####[facility] LABCLIA [id number] [place] [address] [place] Leukocyte esterase Test strip Ql (U) Trace Abnormal Negative [facility] Comment on above: Order Comment: Speci men Type: URINE SPECIMENOrdering Facility: [facility] Address: [address] [place] [address] Performed By: #### U A ####[facility] LABCLIA [id number] [facility] [place] [id number] [place] Nitrite Ql (U) Negative Normal Negative [facility] Comment on above: Order Comment: Speci men Type: URINE SPECIMENOrdering Facility: [facility] Address: [address] [place] [address] Performed By: #### U A ####[facility] LABCLIA [id number] [place] [id number] [place] pH (U) 6.5 [pH] Normal 5.0-8.0 [facility] Comment on above: Order Comment: Speci men Type: URINE SPECIMENOrdering Facility: [facility] Address: [address] [place] [address] Performed By: #### U A ####[facility] LABIA [id number] [place] [address] [place] Protein (U) [Mass/Vol] 1+ Abnormal Negative Cl [facility] Comment on above: Order Comment: Speci men Type: URINE SPECIMENOrdering Facility: [facility] Address: [address] [place] [address] Performed By: #### U A ####[facility] LABIA [id number] [place] [address] [place] Specific gravity (U) [Rel density] 1.022 Normal 1.005-1.03 0 [facility] Comment on above: Order Comment: Speci men Type: URINE SPECIMENOrdering Facility: [facility] Address: [address] [place] [address] Performed By: #### U A ####[facility] [id number] [address] [place] Urobilinogen Ql (U) 0.2 EU/dL Normal 0.2-1.0 EU/dL [facility] Comment on above: Order Comment: Speci men Type: URINE SPECIMENOrdering Facility: [facility] Address: [address] [place] [address] Performed By: #### U A ####[facility] LABIA [id number] [place] [address] [place] ALT SerPl-cCncon 11-20-2024 ALT [Catalytic activity/Vol] 20 U/L Normal 7-38 [facility] Comment on above: Order Comment: Speci men Type: BLOOD SPECIMENOrdering Facility: [facility] Address: [address] [place] [address] Performed By: #### 1 742-6, 8, 2, 4484-12, 1987-08 ####[facility] LABCLIA [id number] [address] [address] [place] AST SerPl-cCncon 11-20-2024 AST [Catalytic activity/Vol] 21 U/L Normal 13-35 [facility] Comment on above: Order Comment: Speci men Type: BLOOD SPECIMENOrdering Facility: [facility] Address: [address] [place], [place] [id number] Performed By: #### 1 742-6, 1919-11, 2, 4484-12, 1987-08 ####[facility] LABCLIA [id number] [place] [id number] [place] C3 SerPl-mCncon 11-20-2024 Complement C3 [Mass/Vol] 126 mg/dL Normal 86-166 [facility] Comment on above: Order Comment: Speci men Type: BLOOD SPECIMENOrdering Facility: [facility] Address: [address] [place], [place] [address] Performed By: #### 1 742-6, 1919-11, 4497-05, 4484-12, 1987-08 ####[facility] LABIA [id number] [place] [id number] [place] C4 SerPl-mCncon 11-20-2024 Complement C4 [Mass/Vol] 18 mg/dL Normal 13-46 [facility] Comment on above: Order Comment: Speci men Type: BLOOD SPECIMENOrdering Facility: [facility] Address: [address] [place], [place] [address] Performed By: #### 1 742-6, 1919-11, 4497-05, 4484-12, 1987-08 ####[facility] LABIA [id number] [address] [address] [place] CNOVon 11-20-2024 CNOV Office Visit (RHEUST ) CORINNA CARR ([id number]) 1955 F Date Time Provider Department 11/20/24 1:30 PM TYLER DIXON During your visit today, we recorded the following information about you: Temperature Pulse Blood pressure Weight 97.8 degrees 51/minute 140/83 88.9 kg Height 1.651 m Tyler Dixon APRN.RADIOLOGY CLERK 11/20/2024 2:40 PM Signed HPI: To review, Corinna Carr is a 69 year old female - In , diagnosed [...] PAST MEDICAL HISTORY Diagnosis Date Aspiration pneumonia ([facility]) 04/2019 [facility] DDD (degenerative disc disease) Depression Diabetes mellitus without mention of complication Fibromyalgia Hyperlipidemia Iron deficiency anemia, unspecified Dr Duong Iron malabsorption ([facility]) 10/23/2022 Lupus Obesity Vitamin D deficiency 2012 PAST SURGICAL HISTORY Procedure Laterality Date ARTHRP KNE CONDYLEANDPLATU MEDIALANDLAT COMPARTMENTS Left 02/25/[address] CARDIAC CATH 2007 no stenosis minimal plaque CARPAL TUNNEL bilateral CHOLECYSTECTOMY 1997 Cholecystectomy COLONOSCOPY AND POLYPECTOMY 07/27/2013 TA x 2, hyperplastic x 5. Repeat in 3y. COLONOSCOPY FLX DX W/COLLJ SPEC WHEN PFRMD 08/15/2007 Repeat in -2017 COLONOSCOPY FLX DX W/COLLJ SPEC WHEN PFRMD [...] 01/2014 ALLERGIES No Known Allergies INTERVAL HISTORY She is here for follow up. She reports erythema to face. She is taking norco for pain, per pcp. Sites of pain: low back, pain rated 7/10 Joint swelling: intermittent to ankles EMS: yes to back, lasting 10 minutes No recent infections. Tolerating meds. REVIEW OF SYSTEMS GENERAL: No fevers HEENT: no frequent headaches RESPIRATORY: Negative for cough, hemoptysis, wheezing, or shortness of breath CARDIOVASCULAR: Negative for chest pain GI: + nausea, no vomiting or diarrhea : No history of dysuria SKIN: Negative for lesions, rash No gross hematuria or blood in stool No mouth, + intermittent nasal sores +hair loss +fatigue Photosensitivity- eyes are sensitive, erythema to face Current Outpatient Medications Medication Sig hydrOXYchloroQUINE (PLAQUENIL) 200 mg tablet Take 1 tablet by mouth once daily. buPROPion XL (WELLBUTRIN XL) 150 mg 24 hr tablet Take 150 mg by mouth once daily. TAKE 1 TABLET BY MOUTH ONCE DAILY IN THE MORNING HYDROcodone-acetaminophen (NORCO) 5-325 mg per tablet Take 1 tablet by mouth every 8 hours as needed. midodrine (PROAMITINE) 5 mg tablet Take 10 mg by mouth three times a day with meals. ibuprofen (MOTRIN) 400 mg tablet Take 600 mg by mouth every 8 hours as needed for pain. omeprazole (PRILOSEC) 40 mg capsule Take 1 capsule by mouth once daily. cholecalciferol, Vitamin D3, (VITAMIN D3) 1,250 mcg (50,000 unit) cap capsule Take 1 capsule by mouth one time a week. pravastatin (PRAVACHOL) 20 mg tablet Take 1 tablet by mouth daily at bedtime. empagliflozin (JARDIANCE) 10 mg tablet Take 1 tablet by mouth once daily. Take 1 tablet once daily in the morning blood sugar diagnostic (BLOOD GLUCOSE TEST) test [...] Heart Failure Maternal Grandfather Thyroid No Family Hi (more content not included)... Normal [facility] CRP SerPl-mCncon 11-20-2024 CRP [Mass/Vol] 0.6 mg/dL Normal <0.9 [facility] Comment on above: Order Comment: Tito james Type: BLOOD SPECIMENOrdering Facility: [facility] Address: [address] [place] [address] Performed By: #### 1 742-6, 192-8, 4498-2, 4485-9, 1987-08 ####[facility] LABCLIA [id number] [place] [address] [place] Creatinine and Glomerular fi ltration rate.predicted panel (S/P/Bld)on 11-20-2024 Creatinine [Mass/Vol] 1.45 mg/dL High 0.58-0.96 [facility] Comment on above: Order Comment: Tito james Type: BLOOD SPECIMEN Ordering Facility: [facility] Address: [address] [place] [address] Performed By: #### 4 5066-8 #### [facility] CLIA [id number] [address] [place], [place] [address] [address] [place] eGFRcr SerPlBld CKD-EPI 2020 39 mL/min/1.73m??? Low >=60 [facility] Comment on above: Order Comment: Speci men Type: BLOOD SPECIMEN [facility]ing [facility]: [facility] Address: [address] [place] [address] Result Comment: Kristan mated Glomerular Filtration Rate (eGFR) is calculated using the 2020 CKD-EPI creatinine equation. This equation utilizes serum creatinine, sex, and age as parameters. The creatinine assay has traceable calibration to isotope dilution-mass spectrometry. Refer to KDIGO guidelines for clinical interpretation. In patients with unstable renal function, e.g. those with acute kidney injury, the eGFR may not accurately reflect actual GFR. Performed By: #### 4 5066-8 #### [facility] CLIA [id number] [address] [place] [address] [place] DNA ANTIBODY DS BLDon 2024 DNA ANTIBODY 699 IU/mL High <=200 [facility] Comment on above: Order Comment: Speci men Type: URINE SPECIMEN [facility]ing Facility: [facility] Address: [address] [place] [address] Result Comment: Nega tive: <200 IU/mL Equivocal: 201-300 IU/mL Moderate Positive: 301-800 IU/mL Strong Positive: >801 IU/mL Performed By: #### U A #### [facility] CLIA [id number] [address] [place] [address] [place] DNA ANTIBODY QUALITATIVE INTERPRETATION Positive Abnormal Negative [facility] Comment on above: Order Comment: Speci men Type: URINE SPECIMEN [facility] Address: [address] [place] [address] Performed By: #### U A #### [facility] CLIA [id number] [address] [place] [address] [place] ESR Westergren method (Bld) [Velocity]on 11-20-2024 ESR (Bld) [Velocity] 15 mm/h Normal 0-20 [facility] Comment on above: Order Comment: Speci men Type: URINE SPECIMEN [facility] Address: [address] [place] [address] Performed By: #### U A #### [facility] CLIA [id number] [address] [place] [address] [place] XR LUMBAR 3V AP/LAT/L5-S1on 11-20-2024 XR LUMBAR 3V AP/LAT/L5-S1 * * *Final Report* * * DATE OF EXAM: Nov 20 2024 2:23PM STX 5228 - XR LUMBAR 3V AP/LAT/L5-S1 / PROCEDURE REASON: Low back pain, unspecified back pain laterality, unspecified chronicity, unspeci * * * * Physician Interpretation * * * * EXAM: XR LUMBAR 3V AP/LAT/L5-S1 HISTORY: Low back pain, unspecified back pain laterality, unspecified chronicity, unspecified whether sciatica present . CHRONIC PAIN IN LOWER BACK TECHNIQUE: XR LUMBAR 3V AP/LAT/L5-S1 Number of different views (projections): 3 COMPARISON: 11/30/2019. RESULT: COUNTING: Lumbosacral junction. For the purposes of this report, L4-5 is considered the level of the iliac crest and assume there are 5 lumbar-type vertebrae. Anatomic variant: None. HARDWARE: Posterior spinal fusion and decompression with posterior pedicle screws and rods L3-S1 with interbody grafts. There is posterior decompression with laminectomies extending from at least L3 through the superior aspect of L5. No hardware fracture or perihardware lucency. There is a right-sided spinal stimulator with 2 leads which enter the posterior spinal canal at T10-T11 and ascending cranially ALIGNMENT: Appropriate lumbar lordosis present without spondylolisthesis. VERTEBRAE: Vertebral body heights are maintained. DISK SPACES: Severe disc space height loss at L2-L3 with marginal osteophytes anteriorly and posteriorly. SOFT TISSUES: Mild scattered calcific atherosclerosis of the abdominal aorta. IMPRESSION: 1. Posterior spinal fusion and decompression L3-S1 similar to the previous exam. 2. Severe degenerative disc disease at L2-L3 above the fusion, progressed since prior exam. Hose Suspender Cutter: PSCB Transcribe Date/Time: Nov 22 2024 1:46P Dictated by : LAVELLE GREENWOOD MD This examination was interpreted and the report reviewed and electronically signed by: LAVELLE GREENWOOD MD on Nov 22 2024 1:50PM EST [id number] Normal [facility] CNPNon 11-13-2024 TODDN Telephone (HEMAWS) CORINNA CARR ([id number]) 1955 F Date Time Provider Department 11/13/24 SAIGE WALLIS During your visit today, we recorded the following information about you: Saige Wallis APRN.RADIOLOGY CLERK 11/13/2024 9:40 AM Signed Please inform pt. that she needs some iron. Please schedule for iron sucrose x5. CBC/iron studies in 3 months. OV/CBC/iron studies in 6 months. Thank you. Saige Wallis APRN.Hailey Simon 11/13/2024 11:44 AM Signed Lvm for patient to return the call to schedule Ava Rivas 11/17/2024 11:26 AM Signed Spoke w pt and this is scheduled as directed. Start emal sent. Ava Dye Allergies As of Date: 11/13/2024 (No Known Allergies) Date Reviewed: 11/12/2024 Reviewed by: Saige Wallis APRN.RADIOLOGY CLERK - Fully Assessed Prescriptions as of 11/17/2024 - hydrOXYchloroQUINE (PLAQUENIL) 200 mg tablet Take 1 tablet by mouth once daily. - buPROPion XL (WELLBUTRIN XL) 150 mg 24 hr tablet Take 150 mg by mouth once daily. TAKE 1 TABLET BY MOUTH ONCE DAILY IN THE MORNING - HYDROcodone-acetaminophen (NORCO) 5-325 mg per tablet Take 1 tablet by mouth every 8 hours as needed. - midodrine (PROAMITINE) 5 mg tablet Take 10 mg by mouth three times a day with meals. - ibuprofen (MOTRIN) 400 mg tablet Take 600 mg by mouth every 8 hours as needed for pain. - omeprazole (PRILOSEC) 40 mg capsule Take 1 capsule by mouth once daily. - cholecalciferol, Vitamin D3, (VITAMIN D3) 1,250 mcg (50,000 unit) cap capsule Take 1 capsule by mouth one time a week. - pravastatin (PRAVACHOL) 20 mg tablet Take 1 tablet by mouth daily at bedtime. - empagliflozin (JARDIANCE) 10 mg tablet Take 1 tablet by mouth once daily. Take 1 tablet once daily in the morning - blood sugar diagnostic (BLOOD GLUCOSE TEST) test strip Test blood sugar(s) 3 times daily. Dx: Type 2 DM - Uncontrolled E11.65 Insulin: Yes - blood sugar diagnostic (FREESTYLE LITE STRIPS) test strip Test blood sugar(s) 3 times daily. Dx: 250.02. Insulin: Yes - gabapentin (NEURONTIN) 300 mg capsule Take 1 capsule by mouth three times daily. Problem List As Of Date 11/13/2024 Noted Resolved Diabetes mellitus (HCC) [E11.9] 01/23/2006 [...] back pain [M54.50] 05/04/2011 11/19/2016 Lupus (HCC) [ICM2602] Fibromyalgia [M79.7] DDD (degenerative disc disease), lumbar [M51.36* Obesity [E66.9] Peripheral neuropathy [G62.9] 06/23/2011 05/26/2019 [...] diabetes mellitus with stage 3 chronic k*05/08/2022 Congestive heart failure (HCC) [I50.9] 06/07/2022 Right bundle branch block [I45.10] 06/07/2022 Diastolic dysfunction [I51.89] 06/07/2022 Metabolic encephalopathy [G93.41] 06/07/2022 Blood in stool [K92.1] 08/16/2022 Change in bowel habits [R19.4] 08/16/2022 Nausea [R11.0] 08/16/2022 Gastroesophageal reflux disease with esophagiti*08/16/2022 CKD (chronic kidney disease) stage 4, GFR 15-29*08/22/2022 Hx of encephalopathy [Z86.69] 08/31/2022 Iron malabsorption [K90.9] 10/23/2022 Encounter Status:Closed by AVA DYE on 11/17/24 Normal [facility] CBC W Auto Differential pane l (Bld)on 11-12-2024 Basophils (Bld) [#/Vol] 0.06 10*3/uL Normal <0.11 [facility] Comment on above: Order Comment: Speci men Type: BLOOD SPECIMENOrdering Facility: [facility] Address: [address] [place] [address] Performed By: #### 5 7021-8 ####[facility] MILLWNCLIA [id number] [place] [address] [place] Basophils/100 WBC (Bld) 0.6 % Normal [facility] Comment on above: Order Comment: Speci men Type: BLOOD SPECIMENOrdering Facility: [facility] Address: [address] [place] [address] Performed By: #### 5 7021-8 ####[facility]GENCYA [id number] [place] [address] [place] Differential cell count method Nom (Bld) Auto Normal [facility] Comment on above: Order Comment: Speci men Type: BLOOD SPECIMENOrdering Facility: [facility] Address: [address] [place] [address] Performed By: #### 5 7021-8 ####[facility]ITALLIA [id number] [place] [address] [place] Eosinophils (Bld) [#/Vol] 0.74 10*3/uL High <0.46 [facility] Comment on above: Order Comment: Speci men Type: BLOOD SPECIMENOrdering Facility: [facility] Address: [address] [place] [address] Performed By: #### 5 7021-8 ####[facility]ALLIA [id number] [place] [address] [place] Eosinophils/100 WBC (Bld) 7.0 % Normal [facility] Comment on above: Order Comment: Speci men Type: BLOOD SPECIMENOrdering Facility: [facility] Address: [address] [place] [address] Performed By: #### 5 7021-8 ####[facility] PORFIRIONCANDREA [id number] [place] [address] [place] Erythrocyte distribution width (RBC) [Ratio] 15.5 % High 11.5-15.0 [facility] Comment on above: Order Comment: Speci men Type: BLOOD SPECIMENOrdering Facility: [facility] Address: [address] [place] [address] Performed By: #### 5 7021-8 ####[facility] DEDRAVINTONNCLIA [id number] [place] [address] [place] Hematocrit (Bld) [Volume fraction] 36.9 % Normal 36.0-46.0 [facility] Comment on above: Order Comment: Speci men Type: BLOOD SPECIMENOrdering Facility: [facility] Address: [address] [place] [address] Performed By: #### 5 7021-8 ####[facility] DEDRAVINTONNCLIA [id number] [place] [address] [place] Hemoglobin (Bld) [Mass/Vol] 11.1 g/dL Low 11.5-15.5 [facility] Comment on above: Order Comment: Speci men Type: BLOOD SPECIMENOrdering Facility: [facility] Address: [address] [place] [address] Performed By: #### 5 7021-8 ####[facility] H[facility]ITALNCLIA [id number] [place] [address] [place] Immature granulocytes (Bld) [#/Vol] 0.13 10*3/uL High <0.10 [facility] Comment on above: Order Comment: Speci men Type: BLOOD SPECIMENOrdering Facility: [facility] Address: [address] [place] [address] Performed By: #### 5 7021-8 ####[facility] MILLWNCLIA [id number] [place] [address] [place] Immature granulocytes/100 WBC (Bld) 1.2 % Normal [facility] Comment on above: Order Comment: Speci men Type: BLOOD SPECIMENOrdering Facility: [facility] Address: [address] [place] [address] Performed By: #### 5 7021-8 ####[facility] HOSPITALELIZABETHLIA [id number] [place] [address] [place] Lymphocytes (Bld) [#/Vol] 2.67 10*3/uL Normal 1.00-4.00 [facility] Comment on above: Order Comment: Speci men Type: BLOOD SPECIMENOrdering Facility: [facility] Address: [address] [place] [address] Performed By: #### 5 7021-8 ####[facility] [id number] [place] [address] [place] Lymphocytes/100 WBC (Bld) 25.3 % Normal [facility] Comment on above: Order Comment: Speci men Type: BLOOD SPECIMENOrdering Facility: [facility] Address: [address] [place] [address] Performed By: #### 5 7021-8 ####[facility] HOSPITALELIZABETHLIA [id number] [place] [address] [place] MCH (RBC) [Entitic mass] 26.2 pg Normal 26.0-34.0 [facility] Comment on above: Order Comment: Speci men Type: BLOOD SPECIMENOrdering Facility: [facility] Address: [address] [place] [address] Performed By: #### 5 7021-8 ####[facility]ITALNCST[facility] [id number] [place] [id number] [place] MCHC (RBC) [Mass/Vol] 30.1 g/dL Low 30.5-36.0 [facility] Comment on above: Order Comment: Speci men Type: BLOOD SPECIMENOrdering Facility: [facility] Address: [address] [place] [address] Performed By: #### 5 7021-8 ####[facility] DEDRAVINTONSINAIA [id number] [place] [address] [place] MCV (RBC) [Entitic vol] 87.0 fL Normal 80.0-100.0 [facility] Comment on above: Order Comment: Speci men Type: BLOOD SPECIMENOrdering Facility: [facility] Address: [address] [place] [address] Performed By: #### 5 7021-8 ####[facility] HOSPITALNAVJOT [id number] [place] [address] [place] Monocytes (Bld) [#/Vol] 0.65 10*3/uL Normal <0.87 [facility] Comment on above: Order Comment: Speci men Type: BLOOD SPECIMENOrdering Facility: [facility] Address: [address] [place] [address] Performed By: #### 5 7021-8 ####[facility] HOSPITALSINAIA [id number] [place] [address] [place] Monocytes/100 WBC (Bld) 6.2 % Normal [facility] Comment on above: Order Comment: Speci men Type: BLOOD SPECIMENOrdering Facility: [facility] Address: [address] [place] [address] Performed By: #### 5 7021-8 ####[facility] HOSPITALNCLIA [id number] [place] [address] [place] Neutrophils (Bld) [#/Vol] 6.30 10*3/uL Normal 1.45-7.50 [facility] Comment on above: Order Comment: Speci men Type: BLOOD SPECIMENOrdering Facility: [facility] Address: [address] [place] [address] Performed By: #### 5 7021-8 ####[facility] DEDRACADENCE [id number] [place] [address] [place] Neutrophils/100 WBC (Bld) 59.7 % Normal [facility] Comment on above: Order Comment: Speci men Type: BLOOD SPECIMENOrdering Facility: [facility] Address: [address] [place] [address] Performed By: #### 5 7021-8 ####[facility]ITALNCST[facility] [id number] [place] [address] [place] Nucleated RBC (Bld) [#/Vol] 10*3/uL Normal <0.01 [facility] Comment on above: Order Comment: Speci men Type: BLOOD SPECIMENOrdering Facility: [facility] Address: [address] [place] [address] Performed By: #### 5 7021-8 ####[facility]ITALNCST[facility] [id number] [place] [address] [place] Nucleated RBC/100 WBC (Bld) [Ratio] 0.0 /100 WBC Normal [facility] Comment on above: Order Comment: Speci men Type: BLOOD SPECIMENOrdering Facility: [facility] Address: [address] [place] [address] Performed By: #### 5 7021-8 ####[facility] [id number] [place] [address] [place] Platelet mean volume (Bld) [Entitic vol] 9.7 fL Normal 9.0-12.7 [facility] Comment on above: Order Comment: Speci men Type: BLOOD SPECIMENOrdering Facility: [facility] Address: [address] [place] [address] Performed By: #### 5 7021-8 ####[facility] ELVINWNCLIA [id number] [place] [address] [place] Platelets (Bld) [#/Vol] 271 10*3/uL Normal 150-400 [facility] Comment on above: Order Comment: Speci men Type: BLOOD SPECIMENOrdering Facility: [facility] Address: [address] [place] [address] Performed By: #### 5 7021-8 ####[facility] HOSPITALNCLIA [id number] [place] [address] [place] [facility] [place] RBC (Bld) [#/Vol] 4.24 10*6/uL Normal 3.90-5.20 [facility] Comment on above: Order Comment: Speci men Type: BLOOD SPECIMENOrdering Facility: [facility] Address: [address] [place] [address] Performed By: #### 5 7021-8 ####[facility] HOSPITALNCLIA [id number] [place] [address] [place] WBC (Bld) [#/Vol] 10.55 10*3/uL Normal 3.70-11.00 [facility] Comment on above: Order Comment: Speci men Type: BLOOD SPECIMENOrdering Facility: [facility] Address: [address] [place] [address] Performed By: #### 5 7021-8 ####[facility] HOSPITALNCLIA [id number] [place] [address] [place] CNOVSPon 11-12-2024 CNOVSP Visit (SP[facility] CORINNA CARR ([id number]) 1955 F Date Time Provider Department 11/12/24 11:00 AM SAIGE WALLIS During your visit today, we recorded the following information about you: Temperature Pulse Respiration Blood pressure 97 degrees 56/minute 14/minute 110/60 Saige Wallis APRN.RADIOLOGY CLERK 11/12/2024 11:13 AM Signed Chief Complaint Patient presents with: Follow Up HPI: Corinna Carr is a 69 year old female who presents here today [...] 12-11/02/19. Last received iron sucrose November 2022. I've been tired. Appetite:Not really but I eat. I've gained back the weight that I lost. Pt. declined wt. today. Energy level:Poor. Denies fevers or recent illness. 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 Past medical history, appointments, medications, allergies reviewed. No changes. EXAM: BP 110/60 Pulse (!) 56 Temp 36.1 ?C (97 ?F) (Temporal) Resp 14 LMP 12/07/2007 SpO2 99% APPEARANCE Well appearing, alert, in no acute distress, well-hydrated, well nourished. HEART RRR with normal S1 and S2, no murmurs LUNG clear to auscultation LYMPH NODES No cervical lymphadenopathy, No supraclavicular lymphadenopathy ABDOMEN bowel sounds normoactive, soft, non-tender EXTREMITIES No edema NEURO Awake, alert and oriented x 3, using wheeled walker and No involuntary motions. SKIN Skin color, texture, turgor normal, no suspicious rashes or lesions LABS: Latest Ref Rng 03/17/2024 06/30/2024 11/12/2024 WBC 3.70 - 11.00 k/uL 10.70 9.90 10.55 RBC 3.90 - 5.20 m/uL 5.04 5.21 (H) 4.24 Hemoglobin 11.5 - 15.5 g/dL 13.4 13.6 11.1 (L) Hematocrit 36.0 - 46.0 % 44.0 45.9 36.9 MCV 80.0 - 100.0 fL 87.3 88.1 87.0 MCH 26.0 - 34.0 pg 26.6 26.1 26.2 MCHC 30.5 - 36.0 g/dL 30.5 29.6 (L) 30.1 (L) RDW-CV 11.5 - 15.0 % 14.6 16.3 (H) 15.5 (H) Platelet Count 150 - 400 k/uL 290 320 271 MPV 9.0 - 12.7 fL 10.9 10.4 9.7 Neut% % 78.6 55.6 59.7 Abs Neut (ANC) 1.45 - 7.50 k/uL 8.41 (H) 5.51 6.30 Lymph% % 12.7 29.4 25.3 Abs Lymph 1.00 - 4.00 k/uL 1.36 2.91 2.67 Barren% % 5.5 6.6 6.2 Abs Barren <0.87 k/uL 0.59 0.65 0.65 Eosin% % 2.2 6.8 7.0 Abs Eosin <0.46 k/uL 0.24 0.67 (H) 0.74 (H) Baso% % 0.5 0.9 0.6 Abs Baso <0.11 k/uL 0.05 0.09 0.06 Immature Gran % % 0.5 0.7 1.2 IMMATURE GRANS (ABS) <0.10 k/uL 0.05 0.07 0.13 (H) NRBC /100 WBC 0.0 0.0 0.0 Absolute nRBC <0.01 k/uL <0.01 <0.01 <0.01 DTYPE Auto Auto Auto Iron studies: Pending ASSESSMENT/PLAN: [...] diuresis. -Still has mild anemia. -Incidentally, reviewed (more content not included)... Normal [facility] Ferritin SerPl-[facility] UPMCon 2024 Ferritin [Mass/Vol] 68.3 ng/mL Normal 14.7-205.1 [facility] Comment on above: Order Comment: Speci men Type: BLOOD SPECIMENOrdering Facility: [facility] Address: [address] [place] [address] [place] [address] Performed By: #### 2 276-4, 35393-3 ####[facility] LABCLIA [id number] [address] [address] [place] Iron and Iron binding capaci ty panelon 11-12-2024 Iron [Mass/Vol] 51 ug/dL Normal 41-186 [facility] Comment on above: Order Comment: Speci men Type: BLOOD SPECIMENOrdering Facility: [facility] Address: [address] [place] [address] Performed By: #### 2 276-4, 04179-4 ####[facility] LABIA [id number] [place] [id number] [place] Iron binding capacity [Mass/Vol] 343 ug/dL Normal 232-386 [facility] Comment on above: Order Comment: Speci men Type: BLOOD SPECIMENOrdering Facility: [facility] Address: [address] [place] [address] Performed By: #### 2 276-4, 81478-8 ####[facility] LABIA [id number] [place] [id number] [place] Iron/TIBC [Molar ratio] 14.9 % Low 15.0-57.0 [facility] Comment on above: Order Comment: Speci men Type: BLOOD SPECIMENOrdering Facility: [facility] Address: [address] [place] [address] Performed By: #### 2 276-4, 89560-0 ####[facility] LABIA [id number] [address] [address] [place] Microalb:Creat Ratio,Random URon 09-29-2024 MALB:CREAT 53.8 mg/g CRE Normal [facility] Comment on above: Result Comment: AMENDED REPORT 09/29/24 1059 MALB:CREAT previously reported as: 537.8 mg/g CRE Performed By: #### L 100.0100, L500.2500 #### [facility] [address] [place], [place], [id number] Urine Cultureon 09-02-2024 URC Culture exhibits no growth. Normal [facility] Comment on above: Performed By: #### L 400.0001 #### [facility] [address] [place], [place], [id number] Absolute lymphocyte countOrd ered By: Yoko Erazo on 09-01-2024 Lymphocytes Auto (Unsp spec) [#/Vol] 1.76 10*3/uL 0.83-4.51 [facility] Absolute neutrophil countOrd ered By: Yoko Erazo on 09-01-2024 Neutrophils (Bld) [#/Vol] 7.2 10*3/uL 2.0-7.7 [facility] Amylaseon 09-01-2024 NICOLAS 49 U/L Normal 28-100 [facility] Comment on above: Performed By: #### L 100.0100, L500.2500 #### [facility] [address] [place], [place], [id number] Anion gap in Serum or Plasma Ordered By: Yoko Erazo on 09-01-2024 Anion gap [Moles/Vol] 12 mmol/L 5-15 [facility] Automated lymphocyte count a s percentage of total leukocytesOrdered By: Yoko Erazo on 09-01-2024 Lymphocytes/100 WBC Auto (Unsp spec) 16.3 % Low 19-41 [facility] BUN/creatinine ratioOrdered By: Yoko Erazo on 09-01-2024 Urea nitrogen/Creatinine [Mass ratio] 18.9 mg/mg 10-20 [facility] Basophil percentageOrdered B y: Yoko Erazo on 09-01-2024 Basophils/100 WBC (Bld) 0.8 % 0-1 [facility] Bilirubin Test strip Ql (U)O rdered By: Yoko Erazo on 09-01-2024 Bilirubin Ql (U) Negative Negative [facility] Bilirubin, totalOrdered By: Yoko Erazo on 09-01-2024 Bilirubin [Mass/Vol] 0.31 mg/dL 0.00-1.30 [facility] CBC W/Diff, Automatedon - Absolute Lymph 1.76 X10 3/uL Normal 0.83-4.51 [facility] Comment on above: Performed By: #### L 100.0100, L500.2500 #### [facility] [address] [place], [address] Absolute Neut 7.2 X10 3/uL Normal 2.0-7.7 [facility] Comment on above: Performed By: #### L 100.0100, L500.2500 #### [facility] [address] [place], [address] Basophils/100 WBC (Bld) 0.8 % Normal 0-1 [facility] Comment on above: Performed By: #### L 100.0100, L500.2500 #### [facility] [address] [place], [address] Eosinophils/100 WBC (Bld) 10.3 % High 0-5 [facility] Comment on above: Performed By: #### L 100.0100, L500.2500 #### [facility] [address] [place], [address] Erythrocyte distribution width (RBC) [Ratio] 16.3 % High 11.6-14.6 [facility] Comment on above: Performed By: #### L 100.0100, L500.2500 #### [facility] [address] [place], [address] Hematocrit (Bld) [Volume fraction] 42.0 % Normal 37-47 [facility] Comment on above: Performed By: #### L 100.0100, L500.2500 #### [facility] [address] [place], [address] Hemoglobin (Bld) [Mass/Vol] 12.6 g/dL Normal 12.0-15.0 [facility] Comment on above: Performed By: #### L 100.0100, L500.2500 #### [facility] [address] [place], [address] IG% 1.000 High 0.0-0.9 [facility] Comment on above: Result Comment: IG% - Immature Granulocytes (promyelocytes, myelocytes and metamyelocytes) > 1% indicates that a LEFT SHIFT is Present. Performed By: #### L 100.0100, L500.2500 #### [facility] [address] [place], [address] Lymphocytes/100 WBC (Bld) 16.3 % Low 19-41 [facility] Comment on above: Performed By: #### L 100.0100, L500.2500 #### [facility] [address] [place], [address] MCH (RBC) [Entitic mass] 27.0 pg Normal 27.0-32.0 [facility] Comment on above: Performed By: #### L 100.0100, L500.2500 #### [facility] [address] [place], [address] MCHC (RBC) [Mass/Vol] 30.0 g/dL Low 32-36 [facility] Comment on above: Performed By: #### L 100.0100, L500.2500 #### [facility] [address] [place], [address] MCV (RBC) [Entitic vol] 89.9 fL Normal 81-99 [facility] Comment on above: Performed By: #### L 100.0100, L500.2500 #### [facility] [address] [place], [address] Monocytes/100 WBC (Bld) 5.0 % Normal 0-10 [facility] Comment on above: Performed By: #### L 100.0100, L500.2500 #### [facility] [address] [place], [address] Neutrophils/100 WBC (Bld) 66.6 % Normal 47-70 [facility] Comment on above: Performed By: #### L 100.0100, L500.2500 #### [facility] [address] [place], [address] Nucleated RBC (Bld) [#/Vol] 0 10*3/uL Normal 0-5 [facility] Comment on above: Performed By: #### L 100.0100, L500.2500 #### [facility] [address] [place], [address] Platelet mean volume (Bld) [Entitic vol] 10.9 fL Normal 6.2-12.0 [facility] Comment on above: Performed By: #### L 100.0100, L500.2500 #### [facility] [address] [place], [address] Platelets (Bld) [#/Vol] 313 10*3/uL Normal 150-450 [facility] Comment on above: Performed By: #### L 100.0100, L500.2500 #### [facility] [address] [place], [address] RBC (Bld) [#/Vol] 4.67 10*6/uL Normal 4.2-5.4 [facility] Comment on above: Performed By: #### L 100.0100, L500.2500 #### [facility] [address] [place], [address] RDW SD 53.4 fl High 35.1-43.9 [facility] Comment on above: Performed By: #### L 100.0100, L500.2500 #### [facility] [address] [place], [address] WBC (Bld) [#/Vol] 10.8 10*3/uL Normal 4.4-11.0 [facility] Comment on above: Performed By: #### L 100.0100, L500.2500 #### [facility] [address] [place], [address] Calculated very low density lipoprotein (VLDL) cholesterol measurementOrdered By: Yoko Erazo on 09-01-2024 Calculated very low density lipoprotein (VLDL) cholesterol measurement 43 mg/dL High 5-40 [facility] Carbon dioxide, total [Moles /volume] in Central venous bloodOrdered By: Yoko Erazo on 09-01-2024 CO2 [Moles/Vol] 20.8 mmol/L Low 21.0-32.0 [facility] Chloride assayOrdered By: Ra niko Erazo on 09-01-2024 Chloride [Moles/Vol] 106 mmol/L 98-108 [facility] Comprehensive Metabolic Prof ilon 09-01-2024 Albumin [Mass/Vol] 4.2 g/dL Normal 3.4-4.8 [facility] Comment on above: Performed By: #### L 100.0100, L500.2500 #### [facility] [address] [place], [address] Albumin/Globulin [Mass ratio] 1.4 {ratio} Normal 0.9-2.4 [facility] Comment on above: Performed By: #### L 100.0100, L500.2500 #### [facility] [address] [place], [address] ALK PHOS 201 U/L High 35-104 [facility] Comment on above: Performed By: #### L 100.0100, L500.2500 #### [facility] [address] [place], [address] ALT [Catalytic activity/Vol] 42 U/L High <=34 [facility] Comment on above: Performed By: #### L 100.0100, L500.2500 #### [facility] [address] [place], [address] AST [Catalytic activity/Vol] 36 U/L High <=31 [facility] Comment on above: Performed By: #### L 100.0100, L500.2500 #### [facility] [address] [place], [address] Bilirubin [Mass/Vol] 0.31 mg/dL Normal 0.00-1.30 [facility] Comment on above: Performed By: #### L 100.0100, L500.2500 #### [facility] [address] [place], [address] BUN/CRE 18.9 RATIO Normal 10-20 [facility] Comment on above: Performed By: #### L 100.0100, L500.2500 #### [facility] [address] [place], [address] Calcium [Mass/Vol] 9.9 mg/dL Normal 7.6-11.0 [facility] Comment on above: Performed By: #### L 100.0100, L500.2500 #### [facility] [address] [place], [address] Chloride [Moles/Vol] 106 mmol/L Normal 98-108 [facility] Comment on above: Performed By: #### L 100.0100, L500.2500 #### [facility] [address] [place], [address] CO2 [Moles/Vol] 20.8 mmol/L Low 21.0-32.0 [facility] Comment on above: Performed By: #### L 100.0100, L500.2500 #### [facility] [address] [place], [address] Creatinine [Mass/Vol] 1.33 mg/dL High 0.70-1.20 [facility] Comment on above: Performed By: #### L 100.0100, L500.2500 #### [facility] [address] [place], [address] GAP 12 Normal 5-15 [facility] Comment on above: Performed By: #### L 100.0100, L500.2500 #### [facility] [address] [place], [address] GFR/1.73 sq M.predicted among non-blacks MDRD (S/P/Bld) [Vol rate/Area] 44 mL/min/{1.73_m2} Low >60 [facility] Comment on above: Result Comment: mL/m in/1.73m2 CKD-EPI Creatinine Equation (2020) Performed By: #### L 100.0100, L500.2500 #### [facility] [address] [place], [address] Globulin (S) [Mass/Vol] 2.9 g/dL Normal 2.2-4.2 [facility] Comment on above: Performed By: #### L 100.0100, L500.2500 #### [facility] [address] [place], [address] Glucose [Mass/Vol] 138 mg/dL High 70-99 [facility] Comment on above: Performed By: #### L 100.0100, L500.2500 #### [facility] [address] [place], [address] Potassium [Moles/Vol] 4.7 mmol/L Normal 3.3-5.1 [facility] Comment on above: Performed By: #### L 100.0100, L500.2500 #### [facility] [address] [place], [address] Sodium [Moles/Vol] 138 mmol/L Normal 133-145 [facility] Comment on above: Performed By: #### L 100.0100, L500.2500 #### [facility] [address] [place], [address] T PROT 7.0 g/dL Normal 5.9-8.4 [facility] Comment on above: Performed By: #### L 100.0100, L500.2500 #### [facility] [address] [place], [place], [id number] Urea nitrogen [Mass/Vol] 25 mg/dL High 4-19 [facility] Comment on above: Performed By: #### L 100.0100, L500.2500 #### [facility] [address] [place], [place], [id number] Eosinophil percentageOrdered By: Yoko Erazo on 09-01-2024 Eosinophils/100 WBC (Bld) 10.3 % High 0-5 [facility] Erythrocyte distribution wid th ratioOrdered By: Yoko Erazo on 09-01-2024 Erythrocyte distribution width (RBC) [Ratio] 16.3 % High 11.6-14.6 [facility] Erythrocyte distribution wid th standard deviationOrdered By: Yoko Erazo on 09-01-2024 Erythrocyte distribution width (RBC) [Ratio] 53.4 fl High 35.1-43.9 [facility] Ferritinon 09-01-2024 Ferritin [Mass/Vol] 120 ng/mL Normal 22-378 [facility] Comment on above: Performed By: #### L 100.0100, L500.2500 #### [facility] [address] [place], [place], [id number] Glomerular filtration rate ( GFR) estimation/1.73 sq m using serum, plasma, or whole bOrdered By: Yoko Erazo on 09-01-2024 GFR/1.73 sq M.predicted among non-blacks MDRD (S/P/Bld) [Vol rate/Area] 44 mL/min/{1.73_m2} Low >60 [facility] Comment on above: mL/min/1.73m2 CKD-EP I Creatinine Equation (2020) Hematocrit Auto (Bld) [Volum e fraction]Ordered By: Yoko Erazo on 09-01-2024 Hematocrit (Bld) [Volume fraction] 42.0 % 37-47 [facility] Hemoglobin A1con 09-01-2024 HbA1c (Bld) [Mass fraction] 5.9 % High <=5.6 [facility] Comment on above: Result Comment: Norm al < 5.7 % Prediabetic 5.7 - 6.4 % Diabetic >or= 6.5 % Please note range changes. Performed By: #### L 100.0100, L500.2500 #### [facility] [address] [place], [place], [id number] Hemoglobin A1c percentageOrd ered By: Yoko Erazo on 09-01-2024 HbA1c (Bld) [Mass fraction] 5.9 % High <5.7 [facility] Comment on above: Normal < 5.7 % Predi abetic 5.7 - 6.4 % Diabetic >or= 6.5 % Please note range changes. Hemoglobin measurementOrdere d By: Yoko Erazo on 09-01-2024 Hemoglobin (Bld) [Mass/Vol] 12.6 g/dL 12.0-15.0 [facility] Immature granulocytes/100 WB C Auto (Bld)Ordered By: Yoko Erazo on 09-01-2024 Immature granulocytes/100 WBC (Bld) 1.000 % High 0.0-0.9 [facility] Comment on above: IG% - Immature Granu locytes (promyelocytes, myelocytes and metamyelocytes) > 1% indicates that a LEFT SHIFT is Present. Inital Evaluation (1) - PTon 09-01-2024 Inital Evaluation (1) - PT [facility] [address] [place] [address] [address] [place] [address] / REHABILITATION SERVICES INITIAL EVALUATION MR#: [id number] Acct: [id number] Name: CORINNA CARR Rep #: [id number] : [id number] 69 From: Hailey COATS Referring Dr.: Dr. Hiram Tafoya MD Status: REG RCR Insurance: [employer]MO MEDICARE SELF PAY INSURANCE Patient's Visit Information Visit Information Visit Information: CORINNA CARR is a 69 year old F referred to Physical Therapy by Dr. Hiram Tafoya MD with a diagnosis of IMBALANCE. Date of Evaluation: 09/01/24 Physical Therapist: JORGE L Sanchez Visit Plan Frequency: 2x /Week Duration: 3 Months Plan: 2X/ week for 8-12 weeks for LE strength, gait training, balance activities, endurance activities with HEP HEP: Bridges, LTR, and seated horizontal head turns Subjective Subjective: Pt had some low BP episodes and causes her to pass out and then she broke her ankle. Her tremors got worse after breaking her ankle. She saw a neurologist and was put on something and the tremors have stopped. Pt is having a bad day. She was lightheaded when she got up this morning and is still and this made her off balance. She was using a walker up until started taking the medicine for the tremors and did not feel she needed it until today. She does not get the lightheaded often but today is not a good day. She took her BP today and it was fine. She feels weak all over and that has been going on for a little while. She needs to get stronger. She does not do a whole lot and sits or lays down a lot. She has back pain but that has been there for years. She has a ramp into the trailers with railings. She has a walk in shower. She gets dizzy when she is in the shower or when she walks and turns her head. She goes back to see him next month. She does not sleep well. She wakes up wide away. Her balance is not that great. She tends to hold onto things. Pain back pain: Pain Intensity (Out of 10): 6 shoulder pain: Pain Intensity (Out of 10): 3 Objective Objective: LE MMT: R hip flex 8.7 and L 8.4 R knee ext 17.4 and L 10 R knee flex 10 and L 7.1 Supine hip abd R 5.7 and L 6.5 Bridge: 1/4 normal ROM Sit to stand: needs B UE to get up from the chair and has trouble weight shifting FW Gait: walks with shorter strides, decrease heel to toe, no trunk rotation, increase veering and guarding. Standing with EC pt began to bounce and was difficult to walk after that. Standing turning head to R and to the L she would get dizzy. Sitting and turning her head R and L she did get dizzy after turning her head X 1 to each side FGA 4 Balance/Special Test Scores Functional Gait Assessment Score: 4 % Disability: 86.6700 Lower Extremity Functional Score: 16 Goals Goal 1:: I HEP Goal Time Frame: 6-8 Weeks Goal 2:: Be able to walk with a rollator 1 lap with occ head turns with CGA with min SOB Goal Time Frame: 6-8 Weeks Goal 3:: Increase LE strength (at the time of the eval: R hip flex 8.7 and L 8.4 R knee ext 17.4 and L 10 R knee flex 10 and L 7.1 Supine hip abd R 5.7 and L 6.5 Bridge: 1/4 normal ROM). Goal Time Frame: 6-8 Weeks Goal 4:: Be able to complete 30 seconds horizontal head turns and vertical head turns in sitting with no dizziness Goal Time Frame: 6-8 Weeks Rehabilitation Potential Rehabilitation Potential: Good Anticipated Interventions Patient/Client Instruction: Educate patient on: Condition and Plan of Care For the Purpose of:: To decrease pain, To improve muscle performance and motor function, To improve ability to perform ADL's, To increase tolerance to activity/condition/position , To improve performance and independence with ADL's, To improve ability of physical actions for home/community/work/leisure , To improve gait and locomotor functions, To improve health of tissue, To increase flexibility/ROM, To improve endurance, To improve balance and To improve safety with gait Therapeutic Exercise to Include: Strength training, Endurance training, Balance training, Postural training, Flexibilty training, Gait and locomotor training, Neuromotor development, Active ROM and Dynamic Lumbar Stabilization For the Purpose of:: To improve muscle performance and motor function, To improve ability to perform ADL's, To increase tolerance to activity/condition/position , To improve performance and independence with ADL's, To decrease level of supervision to perform tasks, To improve ability of physical actions for home/community/work/leisure , To improve gait and locomotor functions, To improve health of tissue, To improve endurance, To improve balance and To improve safety with gait Functional Training to Include: Gait training For the Purpose of:: To improve gait and locomotor functions and To improve safety with gait Text: Thank you for the opportunity to (more content not included)... Normal [facility] Ironon 09-01-2024 Iron [Mass/Vol] 59 ug/dL Normal 50-170 [facility] Comment on above: Performed By: #### L 400.0001 #### [facility] [address] [place], [address] Iron measurement (mass/mass) Ordered By: Yoko Erazo on 09-01-2024 Iron (Unsp spec) [Mass/Mass] 59 ug/dL 50-170 [facility] Ketones Test strip Ql (U)Ord ered By: Yoko Erazo on 09-01-2024 Ketones Ql (U) Negative Negative [facility] LDL calc ser/plasOrdered By: Yoko Erazo on 09-01-2024 Cholesterol in LDL [Mass/Vol] 121 mg/dL [facility] Comment on above: Vypmivruwc=781-820 m g/dL & Higher Gted=351 mg/dL or greater Laboratory - Chemistry and C hemistry - challengeOrdered By: Yoko Erazo on 09-01-2024 AST [Catalytic activity/Vol] 36 U/L High <32 [facility] Lipaseon 09-01-2024 Lipase [Catalytic activity/Vol] 43 U/L Normal 13-75 [facility] Comment on above: Result Comment: Carmita armenta note: LIPASE revised reference range effective 22. New Lipase methodology. Expected to produce lower values than the previous assay method. NEW Reference Range: 13 - 75 U/L Performed By: #### L 100.0100, L500.2500 #### [facility] [address] [place], [address] Lipase measurementOrdered By : Yoko Erazo on 09-01-2024 Lipase [Catalytic activity/Vol] 43 U/L 13-75 [facility] Comment on above: Please note:LIPASE r evised reference range effective 22. New Lipase methodology. Expected to produce lower values than the previous assay method. NEW Reference Range: 13 - 75 U/L Lipid Profileon 09-01-2024 CHOL:HDL 4.51 Normal [facility] Comment on above: Performed By: #### L 100.0100, L500.2500 #### [facility] [address] [place], [address] Cholesterol [Mass/Vol] 210 mg/dL High <=200 [facility] Comment on above: Result Comment: Chol esterol level, Desirable <200 mg/dL Borderline high cholesterol 200-239 mg/dL High cholesterol >=240 mg/dL Recommendations of the NCEP Adult Treatment Panel for the following risk-cutoff thresholds for the [place] population. Performed By: #### L 100.0100, L500.2500 #### [facility] [address] [place], [address] Cholesterol in HDL [Mass/Vol] 47 mg/dL Normal [facility] Comment on above: Result Comment: Lorin onal Cholesterol Education Program (NCEP) guidelines: <40 mg/dL: Low HDL-cholesterol (major risk factor for CHD) >= 60 mg/dL: High HDL-cholesterol (negative risk factor for CHD) HDL-cholesterol is affected by a number of factors, e.g. smoking, exercise, hormones, sex and age. Performed By: #### L 100.0100, L500.2500 #### [facility] [address] [place], [address] Cholesterol in LDL [Mass/Vol] 121 mg/dL Normal [facility] Comment on above: Result Comment: Bord elznxq=985-602 mg/dL Higher Ulql=541 mg/dL or greater Performed By: #### L 100.0100, L500.2500 #### [facility] [address] [place], [address] Cholesterol in VLDL [Mass/Vol] 43 mg/dL High 5-40 [facility] Comment on above: Performed By: #### L 100.0100, L500.2500 #### [facility] [address] [place], [address] Triglyceride [Mass/Vol] 214 mg/dL High [facility] Comment on above: Result Comment: The drugs N-Acetylcysteine and Metamizole may falsely depress this assay. Normal range: <150 mg/dL Borderline High: 150-199 mg/dL High: 200-499 mg/dL Very High: >500 mg/dL Performed By: #### L 100.0100, L500.2500 #### [facility] [address] [place], [place], [id number] MCV (mean corpuscular volume ) determinationOrdered By: Yoko Erazo on 09-01-2024 MCV (RBC) [Entitic vol] 89.9 fL 81-99 [facility] Magnesiumon 09-01-2024 Magnesium [Mass/Vol] 2.1 mg/dL Normal 1.5-2.2 [facility] Comment on above: Performed By: #### L 400.0001 #### [facility] [address] [place], [place], [phone] Magnesium measurement (mass/ volume)Ordered By: Yoko Erazo on 09-01-2024 Magnesium (Unsp spec) [Mass/Vol] 2.1 mg/dL 1.5-2.2 [facility] Mean corpuscular hemoglobin (MCH) determinationOrdered By: Yoko Erazo on 09-01-2024 MCH (RBC) [Entitic mass] 27.0 pg 27.0-32.0 [facility] Mean corpuscular hemoglobin concentration (MCHC) determinationOrdered By: Yoko Erazo on 09-01-2024 MCHC (RBC) [Mass/Vol] 30.0 g/dL Low 32-36 [facility] Mean platelet volume determi nationOrdered By: Yoko Erazo on 09-01-2024 Platelet mean volume (Bld) [Entitic vol] 10.9 fL 6.2-12.0 [facility] Monocyte percentageOrdered B y: Yoko Erazo on 09-01-2024 Monocytes/100 WBC (Bld) 5.0 % 0-10 [facility] Neutrophil percentageOrdered By: Yoko Erazo on 09-01-2024 Neutrophils/100 WBC (Bld) 66.6 % 47-70 [facility] Nitrite Test strip Ql (U)Ord ered By: Yoko Erazo on 09-01-2024 Nitrite Ql (U) Negative Negative [facility] Nucleated red blood cell per centageOrdered By: Yoko Erazo on 09-01-2024 Nucleated RBC/100 WBC (Bld) [Ratio] 0 % 0-5 [facility] Platelet countOrdered By: Ra niko Erazo on 09-01-2024 Platelets (Bld) [#/Vol] 313 10*3/uL 150-450 [facility] Potassium measurement (mass/ volume)Ordered By: Yoko Erazo on 09-01-2024 Potassium (Unsp spec) [Mass/Vol] 4.7 mmol/L 3.3-5.1 [facility] Protein Test strip Ql (U)Ord ered By: Yoko Erazo on 09-01-2024 Protein Ql (U) 30 mg/dl High Negative [facility] RBC Auto (Bld) [#/Vol]Ordere d By: Yoko Erazo on 09-01-2024 RBC (Bld) [#/Vol] 4.67 10*6/uL 4.2-5.4 [facility] Random urine creatinine luna urement (mass/volume)Ordered By: Yoko Erazo on 09-01-2024 Creatinine Unsp time (U) [Mass/Vol] 90.00 mg/dL 28.00-217. 00 [facility] Screening total cholesterol/ high density lipoprotein (HDL) cholesterol ratioOrdered By: Yoko Erazo on 09-01-2024 Cholesterol.total/Chol esterol in HDL [Mass ratio] 4.51 {ratio} [facility] Serum creatinine measurement (mass/volume)Ordered By: Yoko Erazo on 09-01-2024 Creatinine [Mass/Vol] 1.33 mg/dL High 0.70-1.20 [facility] Serum globulin measurementOr dered By: Yoko Erazo on 09-01-2024 Globulin (S) [Mass/Vol] 2.9 g/dL 2.2-4.2 [facility] Serum glucose measurement (m ass/volume)Ordered By: Yoko Erazo on 09-01-2024 Glucose [Mass/Vol] 138 mg/dL High 70-99 [facility] Serum or plasma alanine bhagat otransferase (ALT) measurementOrdered By: Yoko Erazo on 09-01-2024 ALT [Catalytic activity/Vol] 42 U/L High <35 [facility] Serum or plasma albumin luna urement (mass/volume)Ordered By: Yoko Erazo on 09-01-2024 Albumin [Mass/Vol] 4.2 g/dL 3.4-4.8 [facility] Serum or plasma albumin/glob ulin mass ratioOrdered By: Yoko Erazo on 09-01-2024 Albumin/Globulin [Mass ratio] 1.4 {ratio} 0.9-2.4 [facility] Serum or plasma alkaline nile sphatase measurementOrdered By: Yoko Erazo on 09-01-2024 ALP [Catalytic activity/Vol] 201 U/L High 35-104 [facility] Serum or plasma amylase luna urement (enzymatic activity/volume)Ordered By: Yoko Erazo on 09-01-2024 Amylase [Catalytic activity/Vol] 49 U/L 28-100 [facility] Serum or plasma calcium luna urement (mass/volume)Ordered By: Yoko Erazo on 09-01-2024 Calcium [Mass/Vol] 9.9 mg/dL 7.6-11.0 [facility] Serum or plasma cholesterol in HDL measurement (mass/volume)Ordered By: Yoko Erazo on 09-01-2024 Cholesterol in HDL [Mass/Vol] 47 mg/dL >40 [facility] Comment on above: National Cholesterol Education Program (NCEP) guidelines:<40 mg/dL: Low HDL-cholesterol (major risk factor for CHD)>= 60 mg/dL: High HDL-cholesterol (negative risk factor for CHD)HDL-cholesterol is affected by a number of factors, e.g. smoking, exercise, hormones, sex and age. Serum or plasma cholesterol measurement (mass/volume)Ordered By: Yoko Erazo on 09-01-2024 Cholesterol [Mass/Vol] 210 mg/dL High <201 [facility] Comment on above: Cholesterol level, D esirable <200 mg/dLBorderline high cholesterol 200-239 mg/dLHigh cholesterol >=240 mg/dLRecommendations of the NCEP Adult Treatment Panel for the following risk-cutoff thresholds for the [place] population. Serum or plasma ferritin lenore surement (mass/volume)Ordered By: Yoko Erazo on 09-01-2024 Ferritin [Mass/Vol] 120 ng/mL 22-378 [facility] Serum or plasma urea nitroge n measurement (mass/volume)Ordered By: Yoko Erazo 09-01-2024 Urea nitrogen [Mass/Vol] 25 mg/dL High 4-19 [facility] Sodium levelOrdered By: Jody el on 09-01-2024 Sodium [Moles/Vol] 138 mmol/L 133-145 [facility] TSH DL <= 0.005 mIU/L QnOrde red By: Yookemmanuel Erazo on 09-01-2024 TSH Qn 0.772 uIU/mL 0.300-4.20 0 [facility] Thyroid Stim Hormone (TSH)on 09-01-2024 TSH 0.772 uIU/mL Normal 0.300-4.20 0 [facility] Comment on above: Performed By: #### L 100.0100, L500.2500 #### [facility] [address] [place], [address] Total proteinOrdered By: Aspen benitez on 09-01-2024 Protein [Mass/Vol] 7.0 g/dL 5.9-8.4 [facility] Triglycerides measurementOrd ered By: Yoko on 09-01-2024 Triglyceride [Mass/Vol] 214 mg/dL High <199 [facility] Comment on above: The drugs N-Acetylcy steine and Metamizole may falsely depress this assay. Normal range: <150 mg/dLBorderline High: 150-199 mg/dLHigh: 200-499 mg/dLVery High: >500 mg/dL Urinalysis, Routine (Dipstic k)on 09-01-2024 BILIRUBIN URINE Negative Normal Negative [facility] Comment on above: Order Comment: CLEAN CATCH Performed By: #### L 100.0100, L500.2500 #### [facility] [address] [place], [address] Clarity (U) Clear Normal Clear [facility] Comment on above: Order Comment: CLEAN CATCH Performed By: #### L 100.0100, L500.2500 #### [facility] [address] [place], [address] Color (U) Yellow Normal Yellow [facility] Comment on above: Order Comment: CLEAN CATCH Performed By: #### L 100.0100, L500.2500 #### [facility] [address] [place], [address] GLUCOSE, UR 1000 mg/dl Abnormal Normal [facility] Comment on above: Order Comment: CLEAN CATCH Performed By: #### L 100.0100, L500.2500 #### [facility] [address] [place], [address] KETONE UR Negative Normal Negative [facility] Comment on above: Order Comment: CLEAN CATCH Performed By: #### L 100.0100, L500.2500 #### [facility] [address] [place], [address] LEUK ESTERASE 25 /ul Abnormal Negative [facility] Comment on above: Order Comment: CLEAN CATCH Performed By: #### L 100.0100, L500.2500 #### [facility] [address] [place], [address] Nitrite Ql (U) Negative Normal Negative [facility] Comment on above: Order Comment: CLEAN CATCH Performed By: #### L 100.0100, L500.2500 #### [facility] [address] [place], [address] OCCULT BLOOD-UR Negative Normal Negative [facility] Comment on above: Order Comment: CLEAN CATCH Performed By: #### L 100.0100, L500.2500 #### [facility] [address] [place], [address] pH UR 6.0 Normal 5.0 - 8.0 [facility] Comment on above: Order Comment: CLEAN CATCH Performed By: #### L 100.0100, L500.2500 #### [facility] [address] [place], [address] PROT DIPSTX 30 mg/dl Abnormal Negative [facility] Comment on above: Order Comment: CLEAN CATCH Performed By: #### L 100.0100, L500.2500 #### [facility] [address] [place], [address] SP.GR. DIPSTX 1.015 Normal 1.002-1.03 0 [facility] Comment on above: Order Comment: CLEAN CATCH Performed By: #### L 100.0100, L500.2500 #### [facility] [address] [place], [address] UROBILI Normal Normal Normal [facility] Comment on above: Order Comment: CLEAN CATCH Performed By: #### L 100.0100, L500.2500 #### [facility] [address] [place], [address] Urine albumin measurement wi detection limit of 20 mg/L or less (mass/volume)Ordered By: Yoko Erazo on 09-01-2024 Albumin DL <= 20 mg/L (U) [Mass/Vol] 48.4 mg/L NO RANGE EST. [facility] Urine clarityOrdered By: Aspen Erazo on 09-01-2024 Clarity (U) Clear Clear [facility] Urine color determinationOrd ered By: Yoko Erazo on 09-01-2024 Color (U) Yellow Yellow [facility] Urine cultureOrdered By: Aspen Erazo on 09-01-2024 Bacteria identified Cx Nom (U) Culture exhibits no growth. [facility] Urine glucose detectionOrder ed By: Yoko Erazo on 09-01-2024 Glucose Ql (U) 1000 mg/dl High Normal [facility] Urine leukocyte esterase det ection by dipstickOrdered By: Yoko Erazo on 09-01-2024 Leukocyte esterase Test strip Ql (U) 25 /ul High Negative [facility] Urine pHOrdered By: Yoko hammond on 09-01-2024 pH (U) 6.0 [pH] 5.0 - 8.0 [facility] Urine specific gravity measu rementOrdered By: Yoko Erazo on 09-01-2024 Specific gravity (U) [Rel density] 1.015 1.002-1.03 0 [facility] Urine urobilinogen measureme ntOrdered By: Yoko Erazo on 09-01-2024 Urobilinogen Ql (U) Normal mg/dl Normal [facility] Vitamin B12on 09-01-2024 Cobalamin (Vitamin B12) [Mass/Vol] 582 pg/mL Normal 180-914 [facility] Comment on above: Performed By: #### L 100.0100, L500.2500 #### [facility] [address] [place], [place], [address] Vitamin B12 ser/plasOrdered By: Yoko Erazo on 09-01-2024 Cobalamin (Vitamin B12) [Mass/Vol] 582 pg/mL 180-914 [facility] Vitamin D,25 Hydroxyon 09-01 Vitamin D 25-OH 94.5 ng/mL Normal 30-100 [facility] Comment on above: Result Comment: Mohini min D Status Deficiency: <20 ng/mL (50nmol/L) Insufficiency: 20-30 ng/mL (50-75 nmol/L) Sufficiency: 30-100 ng/mL (75-250 nmol/L) Toxicity: >100 ng/mL (>250 nmol/L) Performed By: #### L 100.0100, L500.2500 #### [facility] [address] [place], [address] White blood cell (WBC) count Ordered By: Yoko Erazo on 09-01-2024 WBC (Bld) [#/Vol] 10.8 10*3/uL 4.4-11.0 [facility] CNPNon 07-27-2024 CNPN Telephone (GSTNOR) CORINNA CARR ([id number]) 1955 F Date Time Provider Department 07/27/24 BRI VENTURA During your visit today, we recorded the following information about you: Ryan Hercules 07/27/2024 10:13 AM Signed Our office received a referral from [facility] from Yoko Erazo for a diagnoses of Nausea, Vomiting, and Unintentional weight loss. Insurance is added, just some minor registration needs completed. Left message Allergies As of Date: 07/27/2024 (No Known Allergies) Date Reviewed: 06/30/2024 Reviewed by: Saige Wallis APRN.RADIOLOGY CLERK - Fully Assessed Reason for Visit: Appointment [[id number]] Prescriptions as of 07/31/2024 - hydrOXYchloroQUINE (PLAQUENIL) 200 mg tablet Take 1 tablet by mouth once daily - buPROPion XL (WELLBUTRIN XL) 150 mg 24 hr tablet Take 150 mg by mouth once daily. TAKE 1 TABLET BY MOUTH ONCE DAILY IN THE MORNING - HYDROcodone-acetaminophen (NORCO) 5-325 mg per tablet Take 1 tablet by mouth every 8 hours as needed. - midodrine (PROAMITINE) 5 mg tablet Take 10 mg by mouth three times a day with meals. - ibuprofen (MOTRIN) 400 mg tablet Take 600 mg by mouth. - omeprazole (PRILOSEC) 40 mg capsule Take 1 capsule by mouth once daily. - cholecalciferol, Vitamin D3, (VITAMIN D3) 1,250 mcg (50,000 unit) cap capsule Take 1 capsule by mouth one time a week. - pravastatin (PRAVACHOL) 20 mg tablet Take 1 tablet by mouth daily at bedtime. - dulaglutide (TRULICITY) 3 mg/0.5 mL pen injector Inject 3 mg subcutaneously one time a week. - empagliflozin (JARDIANCE) 10 mg tablet Take 1 tablet by mouth once daily. Take 1 tablet once daily in the morning - blood sugar diagnostic (BLOOD GLUCOSE TEST) test strip Test blood sugar(s) 3 times daily. Dx: Type 2 DM - Uncontrolled E11.65 Insulin: Yes - blood sugar diagnostic (FREESTYLE LITE STRIPS) test strip Test blood sugar(s) 3 times daily. Dx: 250.02. Insulin: Yes - gabapentin (NEURONTIN) 300 mg capsule Take 1 capsule by mouth three times daily. Problem List As Of Date 07/27/2024 Noted Resolved Diabetes mellitus (HCC) [E11.9] 01/23/2006 [...] back pain [M54.50] 05/04/2011 11/19/2016 Lupus (HCC) [[id number]] Fibromyalgia [M79.7] DDD (degenerative disc disease), lumbar [M51.36* Obesity [E66.9] Peripheral neuropathy [G62.9] 06/23/2011 05/26/2019 [...] diabetes mellitus with stage 3 chronic k*05/08/2022 Congestive heart failure (HCC) [I50.9] 06/07/2022 Right bundle branch block [I45.10] 06/07/2022 Diastolic dysfunction [I51.89] 06/07/2022 Metabolic encephalopathy [G93.41] 06/07/2022 Blood in stool [K92.1] 08/16/2022 Change in bowel habits [R19.4] 08/16/2022 Nausea [R11.0] 08/16/2022 Gastroesophageal reflux disease with esophagiti*08/16/2022 CKD (chronic kidney disease) stage 4, GFR 15-29*08/22/2022 Hx of encephalopathy [Z86.69] 08/31/2022 Iron malabsorption [K90.9] 10/23/2022 Encounter Status:Closed by RYAN HERCULES on 07/31/24 [facility] 07-22-2024 [facility] Telephone (GSTNOR) CORINNA CARR ([id number]) 1955 F Date Time Provider Department 07/22/24 BRI VENTURA During your visit today, we recorded the following information about you: Ryan Hercules 07/22/2024 10:09 AM Signed This patient's doctor office called in and requested that we call the patient for an appointment. This patient needs to be seen for Nausea, Vomiting, an Unintentional weight loss. Allergies As of Date: 07/22/2024 (No Known Allergies) Date Reviewed: 06/30/2024 Reviewed by: Saige Wallis APRN.RADIOLOGY CLERK - Fully Assessed Reason for Visit: Appointment [186] Prescriptions as of 07/28/2024 - hydrOXYchloroQUINE (PLAQUENIL) 200 mg tablet Take 1 tablet by mouth once daily - buPROPion XL (WELLBUTRIN XL) 150 mg 24 hr tablet Take 150 mg by mouth once daily. TAKE 1 TABLET BY MOUTH ONCE DAILY IN THE MORNING - HYDROcodone-acetaminophen (NORCO) 5-325 mg per tablet Take 1 tablet by mouth every 8 hours as needed. - midodrine (PROAMITINE) 5 mg tablet Take 10 mg by mouth three times a day with meals. - ibuprofen (MOTRIN) 400 mg tablet Take 600 mg by mouth. - omeprazole (PRILOSEC) 40 mg capsule Take 1 capsule by mouth once daily. - cholecalciferol, Vitamin D3, (VITAMIN D3) 1,250 mcg (50,000 unit) cap capsule Take 1 capsule by mouth one time a week. - pravastatin (PRAVACHOL) 20 mg tablet Take 1 tablet by mouth daily at bedtime. - dulaglutide (TRULICITY) 3 mg/0.5 mL pen injector Inject 3 mg subcutaneously one time a week. - empagliflozin (JARDIANCE) 10 mg tablet Take 1 tablet by mouth once daily. Take 1 tablet once daily in the morning - blood sugar diagnostic (BLOOD GLUCOSE TEST) test strip Test blood sugar(s) 3 times daily. Dx: Type 2 DM - Uncontrolled E11.65 Insulin: Yes - blood sugar diagnostic (FREESTYLE LITE STRIPS) test strip Test blood sugar(s) 3 times daily. Dx: 250.02. Insulin: Yes - gabapentin (NEURONTIN) 300 mg capsule Take 1 capsule by mouth three times daily. Problem List As Of Date 07/22/2024 Noted Resolved Diabetes mellitus (HCC) [E11.9] 01/23/2006 [...] back pain [M54.50] 05/04/2011 11/19/2016 Lupus (HCC) [[id number]] Fibromyalgia [M79.7] DDD (degenerative disc disease), lumbar [M51.36* Obesity [E66.9] Peripheral neuropathy [G62.9] 06/23/2011 05/26/2019 [...] diabetes mellitus with stage 3 chronic k*05/08/2022 Congestive heart failure (HCC) [I50.9] 06/07/2022 Right bundle branch block [I45.10] 06/07/2022 Diastolic dysfunction [I51.89] 06/07/2022 Metabolic encephalopathy [G93.41] 06/07/2022 Blood in stool [K92.1] 08/16/2022 Change in bowel habits [R19.4] 08/16/2022 Nausea [R11.0] 08/16/2022 Gastroesophageal reflux disease with esophagiti*08/16/2022 CKD (chronic kidney disease) stage 4, GFR 15-29*08/22/2022 Hx of encephalopathy [Z86.69] 08/31/2022 Iron malabsorption [K90.9] 10/23/2022 Encounter Status:Closed by RYAN HERCULES on 07/28/24 [facility] 07-06-2024 [facility] Telephone (RHECINDY) CORINNA CARR ([id number]) 1955 F Date Time Provider Department 07/06/24 TYLER DIXON During your visit today, we recorded the following information about you: Madeline Alatorre 07/06/2024 3:28 PM Signed Patient has an appointment on 08/04/24 at 2:00 pm for her Plaquenil check.. This is the soonest she can get in to her eye provider, and they will fax the results to Tyler Dixon. Ilda Luna MA 07/06/2024 3:35 PM Addendum Noted, forwarding to provider. WARREN Quinn Deshawn, APRN.TODD 07/06/2024 4:00 PM Signed Noted. Tyler Zamora APRN.TODD Allergies As of Date: 07/06/2024 (No Known Allergies) Date Reviewed: 06/30/2024 Reviewed by: Saige Wallis APRN.TODD - Fully Assessed Reason for Visit: Appointment [186] Prescriptions as of 07/06/2024 - hydrOXYchloroQUINE (PLAQUENIL) 200 mg tablet Take 1 tablet by mouth once daily - buPROPion XL (WELLBUTRIN XL) 150 mg 24 hr tablet Take 150 mg by mouth once daily. TAKE 1 TABLET BY MOUTH ONCE DAILY IN THE MORNING - HYDROcodone-acetaminophen (NORCO) 5-325 mg per tablet Take 1 tablet by mouth every 8 hours as needed. - midodrine (PROAMITINE) 5 mg tablet Take 10 mg by mouth three times a day with meals. - ibuprofen (MOTRIN) 400 mg tablet Take 600 mg by mouth. - omeprazole (PRILOSEC) 40 mg capsule Take 1 capsule by mouth once daily. - cholecalciferol, Vitamin D3, (VITAMIN D3) 1,250 mcg (50,000 unit) cap capsule Take 1 capsule by mouth one time a week. - pravastatin (PRAVACHOL) 20 mg tablet Take 1 tablet by mouth daily at bedtime. - dulaglutide (TRULICITY) 3 mg/0.5 mL pen injector Inject 3 mg subcutaneously one time a week. - empagliflozin (JARDIANCE) 10 mg tablet Take 1 tablet by mouth once daily. Take 1 tablet once daily in the morning - blood sugar diagnostic (BLOOD GLUCOSE TEST) test strip Test blood sugar(s) 3 times daily. Dx: Type 2 DM - Uncontrolled E11.65 Insulin: Yes - blood sugar diagnostic (FREESTYLE LITE STRIPS) test strip Test blood sugar(s) 3 times daily. Dx: 250.02. Insulin: Yes - gabapentin (NEURONTIN) 300 mg capsule Take 1 capsule by mouth three times daily. Problem List As Of Date 07/06/2024 Noted Resolved Diabetes mellitus (HCC) [E11.9] 01/23/2006 [...] back pain [M54.50] 05/04/2011 11/19/2016 Lupus (HCC) [[id number]] Fibromyalgia [M79.7] DDD (degenerative disc disease), lumbar [M51.36* Obesity [E66.9] Peripheral neuropathy [G62.9] 06/23/2011 05/26/2019 [...] diabetes mellitus with stage 3 chronic k*05/08/2022 Congestive heart failure (HCC) [I50.9] 06/07/2022 Right bundle branch block [I45.10] 06/07/2022 Diastolic dysfunction [I51.89] 06/07/2022 Metabolic encephalopathy [G93.41] 06/07/2022 Blood in stool [K92.1] 08/16/2022 Change in bowel habits [R19.4] 08/16/2022 Nausea [R11.0] 08/16/2022 Gastroesophageal reflux disease with esophagiti*08/16/2022 CKD (chronic kidney disease) stage 4, GFR 15-29*08/22/2022 Hx of encephalopathy [Z86.69] 08/31/2022 Iron malabsorption [K90.9] 10/23/2022 Encounter Status:Closed by ILDA LUNA on 07/06/24 Normal [facility] CBC W Auto Differential pane l (Bld)on 06-30-2024 Basophils (Bld) [#/Vol] 0.09 10*3/uL Normal <0.11 [facility] Comment on above: Order Comment: Speci men Type: BLOOD SPECIMENOrdering Facility: [facility] Address: [address] [place] [address] Performed By: #### 5 7021-8 ####[facility] AMAYA COLMENARESST. MARY MEDICAL CENTERSAL [id number] [place] [address] [place] Basophils/100 WBC (Bld) 0.9 % Normal [facility] Comment on above: Order Comment: Speci men Type: BLOOD SPECIMENOrdering Facility: [facility] Address: [address] [place] [address] Performed By: #### 5 7021-8 ####[facility] DEDRAGIALIA [id number] [place] [address] [place] Differential cell count method Nom (Bld) Auto Normal [facility] Comment on above: Order Comment: Speci men Type: BLOOD SPECIMENOrdering Facility: [facility] Address: [address] [place] [address] Performed By: #### 5 7021-8 ####[facility] DEDRAVINTONNCLIA [id number] [place] [address] [place] Eosinophils (Bld) [#/Vol] 0.67 10*3/uL High <0.46 [facility] Comment on above: Order Comment: Speci men Type: BLOOD SPECIMENOrdering Facility: [facility] Address: [address] [place] [address] Performed By: #### 5 7021-8 ####[facility]ITALNCLIA [id number] [place] [address] [place] Eosinophils/100 WBC (Bld) 6.8 % Normal [facility] Comment on above: Order Comment: Speci men Type: BLOOD SPECIMENOrdering Facility: [facility] Address: [address] [place] [address] Performed By: #### 5 7021-8 ####[facility]ITALNCLIA [id number] [place] [address] [place] Erythrocyte distribution width (RBC) [Ratio] 16.3 % High 11.5-15.0 [facility] Comment on above: Order Comment: Speci men Type: BLOOD SPECIMENOrdering Facility: [facility] Address: [address] [place] [address] Performed By: #### 5 7021-8 ####[facility]ITALNCLIA [id number] [place] [address] [place] Hematocrit (Bld) [Volume fraction] 45.9 % Normal 36.0-46.0 [facility] Comment on above: Order Comment: Speci men Type: BLOOD SPECIMENOrdering Facility: [facility] Address: [address] [place] [address] Performed By: #### 5 7021-8 ####[facility] [id number] [place] [address] [place] Hemoglobin (Bld) [Mass/Vol] 13.6 g/dL Normal 11.5-15.5 [facility] Comment on above: Order Comment: Speci men Type: BLOOD SPECIMENOrdering Facility: [facility] Address: [address] [place] [address] Performed By: #### 5 7021-8 ####[facility] [id number] [place] [address] [place] Immature granulocytes (Bld) [#/Vol] 0.07 10*3/uL Normal <0.10 [facility] Comment on above: Order Comment: Speci men Type: BLOOD SPECIMENOrdering Facility: [facility] Address: [address] [place] [address] Performed By: #### 5 7021-8 ####[facility] [id number] [place] [address] [place] Immature granulocytes/100 WBC (Bld) 0.7 % Normal [facility] Comment on above: Order Comment: Speci men Type: BLOOD SPECIMENOrdering Facility: [facility] Address: [address] [place] [address] Performed By: #### 5 7021-8 ####[facility]ITALNCLIA [id number] [place] [address] [place] Lymphocytes (Bld) [#/Vol] 2.91 10*3/uL Normal 1.00-4.00 [facility] Comment on above: Order Comment: Speci men Type: BLOOD SPECIMENOrdering Facility: [facility] Address: [address] [place] [address] Performed By: #### 5 7021-8 ####[facility] [id number] [place] [address] [place] Lymphocytes/100 WBC (Bld) 29.4 % Normal [facility] Comment on above: Order Comment: Speci men Type: BLOOD SPECIMENOrdering Facility: [facility] Address: [address] [place] [address] Performed By: #### 5 7021-8 ####[facility]ITALNCST[facility] [id number] [place] [address] [place] MCH (RBC) [Entitic mass] 26.1 pg Normal 26.0-34.0 [facility] Comment on above: Order Comment: Speci men Type: BLOOD SPECIMENOrdering Facility: [facility] Address: [address] [place] [address] Performed By: #### 5 7021-8 ####[facility] [id number] [place] [address] [place] MCHC (RBC) [Mass/Vol] 29.6 g/dL Low 30.5-36.0 [facility] Comment on above: Order Comment: Speci men Type: BLOOD SPECIMENOrdering Facility: [facility] Address: [address] [place] [address] Performed By: #### 5 7021-8 ####[facility] [id number] [address] [place] MCV (RBC) [Entitic vol] 88.1 fL Normal 80.0-100.0 [facility] Comment on above: Order Comment: Speci men Type: BLOOD SPECIMENOrdering Facility: [facility] Address: [address] [place] [address] Performed By: #### 5 7021-8 ####[facility] MILLTOWNCLIA [id number] [place] [address] [place] Monocytes (Bld) [#/Vol] 0.65 10*3/uL Normal <0.87 [facility] Comment on above: Order Comment: Speci men Type: BLOOD SPECIMENOrdering Facility: [facility] Address: [address] [place] [address] Performed By: #### 5 7021-8 ####[facility] MILLWNCLIA [id number] [place] [address] [place] Monocytes/100 WBC (Bld) 6.6 % Normal [facility] Comment on above: Order Comment: Speci men Type: BLOOD SPECIMENOrdering Facility: [facility] Address: [address] [place] [address] Performed By: #### 5 7021-8 ####[facility]ITALNCLIA [id number] [place] [address] [place] Neutrophils (Bld) [#/Vol] 5.51 10*3/uL Normal 1.45-7.50 [facility] Comment on above: Order Comment: Speci men Type: BLOOD SPECIMENOrdering Facility: [facility] Address: [address] [place] [address] Performed By: #### 5 7021-8 ####[facility] MILLTOWNCLIA [id number] [place] [address] [place] Neutrophils/100 WBC (Bld) 55.6 % Normal [facility] Comment on above: Order Comment: Speci men Type: BLOOD SPECIMENOrdering Facility: [facility] Address: [address] [place] [address] Performed By: #### 5 7021-8 ####[facility] MILLWNCLIA [id number] [place] [address] [place] Nucleated RBC (Bld) [#/Vol] 10*3/uL Normal <0.01 [facility] Comment on above: Order Comment: Speci men Type: BLOOD SPECIMENOrdering Facility: [facility] Address: [address] [place] [address] Performed By: #### 5 7021-8 ####[facility] [id number] [place] [address] [place] Nucleated RBC/100 WBC (Bld) [Ratio] 0.0 /100 WBC Normal [facility] Comment on above: Order Comment: Speci men Type: BLOOD SPECIMENOrdering Facility: [facility] Address: [address] [place] [address] Performed By: #### 5 7021-8 ####[facility]ITALNCST[facility] [id number] [place] [address] [place] Platelet mean volume (Bld) [Entitic vol] 10.4 fL Normal 9.0-12.7 [facility] Comment on above: Order Comment: Speci men Type: BLOOD SPECIMENOrdering Facility: [facility] Address: [address] [place] [address] Performed By: #### 5 7021-8 ####[facility] HOSPITALNCANDREA [id number] [place] [address] [place] Platelets (Bld) [#/Vol] 320 10*3/uL Normal 150-400 [facility] Comment on above: Order Comment: Speci men Type: BLOOD SPECIMENOrdering Facility: [facility] Address: [address] [place] [address] Performed By: #### 5 7021-8 ####[facility]ITALNCLIA [id number] [place] [address] [place] RBC (Bld) [#/Vol] 5.21 10*6/uL High 3.90-5.20 [facility] Comment on above: Order Comment: Speci men Type: BLOOD SPECIMENOrdering Facility: [facility] Address: [address] [place] [address] Performed By: #### 5 7021-8 ####[facility]ITALNCLIA [id number] [place] [address] [place] WBC (Bld) [#/Vol] 9.90 10*3/uL Normal 3.70-11.00 [facility] Comment on above: Order Comment: Speci men Type: BLOOD SPECIMENOrdering Facility: [facility] Address: [address] [place] [address] Performed By: #### 5 7021-8 ####[facility]ITALNCST[facility] [id number] [address] [place] CNOVSPon 06-30-2024 CNOVSP Visit (SP) Office (H EMAWS) CORINNA CARR ([id number]) 1955 F Date Time Provider Department 06/30/24 11:30 AM SAIGE WALLIS During your visit today, we recorded the following information about you: Temperature Pulse Blood pressure Weight 97.6 degrees 80/minute 128/84 78.8 kg Saige Wallis APRN.RADIOLOGY CLERK 06/30/2024 12:42 PM Signed Chief Complaint Patient presents with: Established Patient HPI: Corinna Carr is a 69 year old female who presents here today [...] sucrose November 2022. No new concerns today. Appetite:Not really. Wt. down #35 since November. Energy level:Not really. Denies fevers or recent illness. Resp:denies cough or sob Cardiac:denies chest pain/palpitations GI:denies abd pain, occ. 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 Past medical history, appointments, medications, allergies reviewed. No changes. EXAM: BP 128/84 Pulse 80 Temp 36.4 ?C (97.6 ?F) Wt 78.8 kg (173 lb 11.6 oz) LMP 12/07/2007 SpO2 99% BMI 29.36 kg/m? APPEARANCE Well appearing, alert, in no acute distress, well-hydrated, well nourished. HEART RRR with normal S1 and S2, no murmurs LUNG clear to auscultation LYMPH NODES No cervical lymphadenopathy, No supraclavicular lymphadenopathy, and No axillary lymphadenopathy. ABDOMEN bowel sounds normoactive, soft, non-tender EXTREMITIES No edema NEURO Awake, alert and oriented x 3, using wheeled walker, and No involuntary motions. SKIN Skin color, texture, turgor normal, no suspicious rashes or lesions LABS: Latest Ref Rng 01/21/2024 03/17/2024 06/30/2024 WBC 3.70 - 11.00 k/uL 10.01 10.70 9.90 RBC 3.90 - 5.20 m/uL 4.94 5.04 5.21 (H) Hemoglobin 11.5 - 15.5 g/dL 13.5 13.4 13.6 Hematocrit 36.0 - 46.0 % 45.0 44.0 45.9 MCV 80.0 - 100.0 fL 91.1 87.3 88.1 MCH 26.0 - 34.0 pg 27.3 26.6 26.1 MCHC 30.5 - 36.0 g/dL 30.0 (L) 30.5 29.6 (L) RDW-CV 11.5 - 15.0 % 15.4 (H) 14.6 16.3 (H) Platelet Count 150 - 400 k/uL 290 290 320 MPV 9.0 - 12.7 fL 11.0 10.9 10.4 Neut% % 64.8 78.6 55.6 Abs Neut (ANC) 1.45 - 7.50 k/uL 6.49 8.41 (H) 5.51 Lymph% % 23.4 12.7 29.4 Abs Lymph 1.00 - 4.00 k/uL 2.34 1.36 2.91 Barren% % 5.3 5.5 6.6 Abs Barren <0.87 k/uL 0.53 0.59 0.65 Eosin% % 4.0 2.2 6.8 Abs Eosin <0.46 k/uL 0.40 0.24 0.67 (H) Baso% % 0.6 0.5 0.9 Abs Baso <0.11 k/uL 0.06 0.05 0.09 Immature Gran % % 1.9 0.5 0.7 IMMATURE GRANS (ABS) <0.10 k/uL 0.19 (H) 0.05 0.07 NRBC /100 WBC 0.2 0.0 0.0 Absolute nRBC <0.01 k/uL 0.02 (H) <0.01 <0.01 DTYPE Auto Auto Auto Iron studies: Pending ASSESSMENT/PLAN: [...] of hospitalization through diuresis. -Still has mild a (more content not included)... Normal [facility] Ferritin SerPl-ncon 2024 Ferritin [Mass/Vol] 254.0 ng/mL High 14.7-205.1 [facility] Comment on above: Order Comment: Tito james Type: BLOOD SPECIMENOrdering Facility: [facility] Address: [address] [place] [address] Performed By: #### 5 0190-8, 2275- ####[facility] LABIA [id number] [place] [address] [place] Iron and Iron binding capaci panelon 06-30-2024 Iron [Mass/Vol] 57 ug/dL Normal 41-186 [facility] Comment on above: Order Comment: Tito james Type: BLOOD SPECIMENOrdering Facility: [facility] Address: [address] [place] [address] Performed By: #### 5 0190-8, 6- ####[facility] LABCLIA [id number] [place] [address] [place] Iron binding capacity [Mass/Vol] 313 ug/dL Normal 232-386 [facility] Comment on above: Order Comment: Speci men Type: BLOOD SPECIMENOrdering Facility: [facility] Address: [address] [place] [address] Performed By: #### 5 0190-8, 6-4 ####[facility] LABCLIA [id number] [place] [address] [place] Iron/TIBC [Molar ratio] 18.2 % Normal 15.0-57.0 [facility] Comment on above: Order Comment: Speci men Type: BLOOD SPECIMENOrdering Facility: [facility] Address: [address] [place] [address] Performed By: #### 5 0190-8, 2275-07 ####[facility] LABCLIA [id number] [place] [address] [place] Basic Metabolic Profile (BMP )on 05-19-2024 BUN Normal 7-18 [facility] Comment on above: Result Comment: Canc elled via OM: Order cancelled - Patient discharged Performed By: #### L 400.0001 #### [facility] [address] [facility] [address] BUN/CRE Normal 10-20 [facility] Comment on above: Result Comment: Canc elled via OM: Order cancelled - Patient discharged Performed By: #### L 400.0001 #### [facility] [address] [place], [address] CA,Total Normal 8.5-10.1 [facility] Comment on above: Result Comment: Canc elled via OM: Order cancelled - Patient discharged Performed By: #### L 400.0001 #### [facility] [address] [facility] [address] CL Normal 98-107 [facility] Comment on above: Result Comment: Canc elled via OM: Order cancelled - Patient discharged Performed By: #### L 400.0001 #### [facility] [address] [place], [address] CO2 Normal 21.0-32.0 [facility] Comment on above: Result Comment: Canc elled via OM: Order cancelled - Patient discharged Performed By: #### L 400.0001 #### [facility] [address] [place], [address] CREAT,SERUM Normal 0.55-1.02 [facility] Comment on above: Result Comment: Canc elled via OM: Order cancelled - Patient discharged Performed By: #### L 400.0001 #### [facility] [address] [place], [address] EST GFR Normal >60 [facility] Comment on above: Result Comment: Canc elled via OM: Order cancelled - Patient discharged Performed By: #### L 400.0001 #### [facility] [address] [place], [address] EST GFR - AA Normal >60 [facility] Comment on above: Result Comment: Canc elled via OM: Order cancelled - Patient discharged Performed By: #### L 400.0001 #### [facility] [address] [place], [address] GAP Normal 5-15 [facility] Comment on above: Result Comment: Canc elled via OM: Order cancelled - Patient discharged Performed By: #### L 400.0001 #### [facility] [address] [place], [address] GLU Normal 74-106 [facility] Comment on above: Result Comment: Canc elled via OM: Order cancelled - Patient discharged Performed By: #### L 400.0001 #### [facility] [address] [place], [address] Potassium Normal 3.5-5.1 [facility] Comment on above: Result Comment: Canc elled via OM: Order cancelled - Patient discharged Performed By: #### L 400.0001 #### [facility] [address] [place], [address] Basic Metabolic Profile (BMP) Normal 136-145 [facility] Comment on above: Result Comment: Canc elled via OM: Order cancelled - Patient discharged Performed By: #### L 400.0001 #### [facility] [address] [place], [address] CBC W/Diff, Automatedon 05-09 Absolute Neut Normal 2.0-7.7 [facility] Comment on above: Result Comment: Canc elled via OM: Order cancelled - Patient discharged Performed By: #### L 400.0001 #### [facility] [address] [place], [address] HCT Normal 37-47 [facility] Comment on above: Result Comment: Canc elled via OM: Order cancelled - Patient discharged Performed By: #### L 400.0001 #### [facility] [address] [place], [address] HGB Normal 12.0-15.0 [facility] Comment on above: Result Comment: Canc elled via OM: Order cancelled - Patient discharged Performed By: #### L 400.0001 #### [facility] [address] [place], [address] MCH Normal 27.0-32.0 [facility] Comment on above: Result Comment: Canc elled via OM: Order cancelled - Patient discharged Performed By: #### L 400.0001 #### [facility] [address] [place], [address] MCHC Normal 32-36 [facility] Comment on above: Result Comment: Canc elled via OM: Order cancelled - Patient discharged Performed By: #### L 400.0001 #### [facility] [address] [place], [address] MCV Normal 81-99 [facility] Comment on above: Result Comment: Canc elled via OM: Order cancelled - Patient discharged Performed By: #### L 400.0001 #### [facility] [address] [place], [address] NEUT% Normal 47-70 [facility] Comment on above: Result Comment: Canc elled via OM: Order cancelled - Patient discharged Performed By: #### L 400.0001 #### [facility] [address] [place], [address] PLT Normal 150-450 [facility] Comment on above: Result Comment: Canc elled via OM: Order cancelled - Patient discharged Performed By: #### L 400.0001 #### [facility] [address] [place], [address] RBC Normal 4.2-5.4 [facility] Comment on above: Result Comment: Canc elled via OM: Order cancelled - Patient discharged Performed By: #### L 400.0001 #### [facility] [address] [place], [address] RDW CV Normal 11.6-14.6 [facility] Comment on above: Result Comment: Canc elled via OM: Order cancelled - Patient discharged Performed By: #### L 400.0001 #### [facility] [address] [place], [address] RDW SD Normal 35.1-43.9 [facility] Comment on above: Result Comment: Canc elled via OM: Order cancelled - Patient discharged Performed By: #### L 400.0001 #### [facility] [address] [place], [address] WBC Normal 4.4-11.0 [facility] Comment on above: Result Comment: Canc elled via OM: Order cancelled - Patient discharged Performed By: #### L 400.0001 #### [facility] [address] [place], [address] Basic Metabolic Profile (BMP )on 05-18-2024 BUN Normal 7-18 [facility] Comment on above: Result Comment: Canc elled via OM: Order cancelled - Patient discharged Performed By: #### L 100.0100, L500.2500 #### [facility] [address] [place], [address] BUN/CRE Normal 10-20 [facility] Comment on above: Result Comment: Canc elled via OM: Order cancelled - Patient discharged Performed By: #### L 100.0100, L500.2500 #### [facility] [address] [place], [address] CA,Total Normal 8.5-10.1 [facility] Comment on above: Result Comment: Canc elled via OM: Order cancelled - Patient discharged Performed By: #### L 100.0100, L500.2500 #### [facility] [address] [place], [address] CL Normal 98-107 [facility] Comment on above: Result Comment: Canc elled via OM: Order cancelled - Patient discharged Performed By: #### L 100.0100, L500.2500 #### [facility] [address] [place], [address] CO2 Normal 21.0-32.0 [facility] Comment on above: Result Comment: Canc elled via OM: Order cancelled - Patient discharged Performed By: #### L 100.0100, L500.2500 #### [facility] [address] [place], [address] CREAT,SERUM Normal 0.55-1.02 [facility] Comment on above: Result Comment: Canc elled via OM: Order cancelled - Patient discharged Performed By: #### L 100.0100, L500.2500 #### [facility] [address] [place], [address] EST GFR Normal >60 [facility] Comment on above: Result Comment: Canc elled via OM: Order cancelled - Patient discharged Performed By: #### L 100.0100, L500.2500 #### [facility] [address] [place], [address] EST GFR - AA Normal >60 [facility] Comment on above: Result Comment: Canc elled via OM: Order cancelled - Patient discharged Performed By: #### L 100.0100, L500.2500 #### [facility] [address] [place], [address] GAP Normal 5-15 [facility] Comment on above: Result Comment: Canc elled via OM: Order cancelled - Patient discharged Performed By: #### L 100.0100, L500.2500 #### [facility] [address] [place], [address] GLU Normal 74-106 [facility] Comment on above: Result Comment: Canc elled via OM: Order cancelled - Patient discharged Performed By: #### L 100.0100, L500.2500 #### [facility] [address] [place], [address] Potassium Normal 3.5-5.1 [facility] Comment on above: Result Comment: Canc elled via OM: Order cancelled - Patient discharged Performed By: #### L 100.0100, L500.2500 #### [facility] [address] [place], [address] Basic Metabolic Profile (BMP) Normal 136-145 [facility] Comment on above: Result Comment: Canc elled via OM: Order cancelled - Patient discharged Performed By: #### L 100.0100, L500.2500 #### [facility] [address] [place], [address] CBC W/Diff, Automatedon 02- 0 Absolute Neut Normal 2.0-7.7 [facility] Comment on above: Result Comment: Canc elled via OM: Order cancelled - Patient discharged Performed By: #### L 100.0100, L500.2500 #### [facility] [address] [place], [address] HCT Normal 37-47 [facility] Comment on above: Result Comment: Canc elled via OM: Order cancelled - Patient discharged Performed By: #### L 100.0100, L500.2500 #### [facility] [address] [place], [address] HGB Normal 12.0-15.0 [facility] Comment on above: Result Comment: Canc elled via OM: Order cancelled - Patient discharged Performed By: #### L 100.0100, L500.2500 #### [facility] [address] [place], [address] MCH Normal 27.0-32.0 [facility] Comment on above: Result Comment: Canc elled via OM: Order cancelled - Patient discharged Performed By: #### L 100.0100, L500.2500 #### [facility] [address] [place], [address] MCHC Normal 32-36 [facility] Comment on above: Result Comment: Canc elled via OM: Order cancelled - Patient discharged Performed By: #### L 100.0100, L500.2500 #### [facility] [address] [place], [address] MCV Normal 81-99 [facility] Comment on above: Result Comment: Canc elled via OM: Order cancelled - Patient discharged Performed By: #### L 100.0100, L500.2500 #### [facility] [address] [place], [address] NEUT% Normal 47-70 [facility] Comment on above: Result Comment: Canc elled via OM: Order cancelled - Patient discharged Performed By: #### L 100.0100, L500.2500 #### [facility] [address] [place], [address] PLT Normal 150-450 [facility] Comment on above: Result Comment: Canc elled via OM: Order cancelled - Patient discharged Performed By: #### L 100.0100, L500.2500 #### [facility] [address] [place], [address] RBC Normal 4.2-5.4 [facility] Comment on above: Result Comment: Canc elled via OM: Order cancelled - Patient discharged Performed By: #### L 100.0100, L500.2500 #### [facility] [address] [place], [address] RDW CV Normal 11.6-14.6 [facility] Comment on above: Result Comment: Canc elled via OM: Order cancelled - Patient discharged Performed By: #### L 100.0100, L500.2500 #### [facility] [address] [place], [address] RDW SD Normal 35.1-43.9 [facility] Comment on above: Result Comment: Canc elled via OM: Order cancelled - Patient discharged Performed By: #### L 100.0100, L500.2500 #### [facility] [address] [place], [address] WBC Normal 4.4-11.0 [facility] Comment on above: Result Comment: Canc elled via OM: Order cancelled - Patient discharged Performed By: #### L 100.0100, L500.2500 #### [facility] [address] [place], [address] Basic Metabolic Profile (BMP )on 05-17-2024 BUN Normal 7-18 [facility] Comment on above: Result Comment: Canc elled via OM: Order cancelled - Patient discharged Performed By: #### L 100.0100, L500.2500 #### [facility] [address] [place], [address] BUN/CRE Normal 10-20 [facility] Comment on above: Result Comment: Canc elled via OM: Order cancelled - Patient discharged Performed By: #### L 100.0100, L500.2500 #### [facility] [address] [place], [address] CA,Total Normal 8.5-10.1 [facility] Comment on above: Result Comment: Canc elled via OM: Order cancelled - Patient discharged Performed By: #### L 100.0100, L500.2500 #### [facility] [address] [place], [address] CL Normal 98-107 [facility] Comment on above: Result Comment: Canc elled via OM: Order cancelled - Patient discharged Performed By: #### L 100.0100, L500.2500 #### [facility] [address] [place], [address] CO2 Normal 21.0-32.0 [facility] Comment on above: Result Comment: Canc elled via OM: Order cancelled - Patient discharged Performed By: #### L 100.0100, L500.2500 #### [facility] [address] [place], [address] CREAT,SERUM Normal 0.55-1.02 [facility] Comment on above: Result Comment: Canc elled via OM: Order cancelled - Patient discharged Performed By: #### L 100.0100, L500.2500 #### [facility] [address] [place], [address] EST GFR Normal >60 [facility] Comment on above: Result Comment: Canc elled via OM: Order cancelled - Patient discharged Performed By: #### L 100.0100, L500.2500 #### [facility] [address] [place], [address] EST GFR - AA Normal >60 [facility] Comment on above: Result Comment: Canc elled via OM: Order cancelled - Patient discharged Performed By: #### L 100.0100, L500.2500 #### [facility] [address] [place], [address] GAP Normal 5-15 [facility] Comment on above: Result Comment: Canc elled via OM: Order cancelled - Patient discharged Performed By: #### L 100.0100, L500.2500 #### [facility] [address] [place], [address] GLU Normal 74-106 [facility] Comment on above: Result Comment: Canc elled via OM: Order cancelled - Patient discharged Performed By: #### L 100.0100, L500.2500 #### [facility] [address] [place], [address] Potassium Normal 3.5-5.1 [facility] Comment on above: Result Comment: Canc elled via OM: Order cancelled - Patient discharged Performed By: #### L 100.0100, L500.2500 #### [facility] [address] [place], [address] Basic Metabolic Profile (BMP) Normal 136-145 [facility] Comment on above: Result Comment: Canc elled via OM: Order cancelled - Patient discharged Performed By: #### L 100.0100, L500.2500 #### [facility] [address] [place], [address] CBC W/Diff, Automatedon 02-0 Absolute Neut Normal 2.0-7.7 [facility] Comment on above: Result Comment: Canc elled via OM: Order cancelled - Patient discharged Performed By: #### L 100.0100, L500.2500 #### [facility] [address] [place], [address] HCT Normal 37-47 [facility] Comment on above: Result Comment: Canc elled via OM: Order cancelled - Patient discharged Performed By: #### L 100.0100, L500.2500 #### [facility] [address] [place], [address] HGB Normal 12.0-15.0 [facility] Comment on above: Result Comment: Canc elled via OM: Order cancelled - Patient discharged Performed By: #### L 100.0100, L500.2500 #### [facility] [address] [place], [address] MCH Normal 27.0-32.0 [facility] Comment on above: Result Comment: Canc elled via OM: Order cancelled - Patient discharged Performed By: #### L 100.0100, L500.2500 #### [facility] [address] [place], [address] MCHC Normal 32-36 [facility] Comment on above: Result Comment: Canc elled via OM: Order cancelled - Patient discharged Performed By: #### L 100.0100, L500.2500 #### [facility] [address] [place], [address] MCV Normal 81-99 [facility] Comment on above: Result Comment: Canc elled via OM: Order cancelled - Patient discharged Performed By: #### L 100.0100, L500.2500 #### [facility] [address] [place], [address] NEUT% Normal 47-70 [facility] Comment on above: Result Comment: Canc elled via OM: Order cancelled - Patient discharged Performed By: #### L 100.0100, L500.2500 #### [facility] [address] [place], [address] PLT Normal 150-450 [facility] Comment on above: Result Comment: Canc elled via OM: Order cancelled - Patient discharged Performed By: #### L 100.0100, L500.2500 #### [facility] [address] [place], [address] RBC Normal 4.2-5.4 [facility] Comment on above: Result Comment: Canc elled via OM: Order cancelled - Patient discharged Performed By: #### L 100.0100, L500.2500 #### [facility] [address] [place], [address] RDW CV Normal 11.6-14.6 [facility] Comment on above: Result Comment: Canc elled via OM: Order cancelled - Patient discharged Performed By: #### L 100.0100, L500.2500 #### [facility] [address] [place], [address] RDW SD Normal 35.1-43.9 [facility] Comment on above: Result Comment: Canc elled via OM: Order cancelled - Patient discharged Performed By: #### L 100.0100, L500.2500 #### [facility] [address] [place], [address] WBC Normal 4.4-11.0 [facility] Comment on above: Result Comment: Canc elled via OM: Order cancelled - Patient discharged Performed By: #### L 100.0100, L500.2500 #### [facility] [address] [place], [address] Basic Metabolic Profile (BMP )on 05-16-2024 BUN Normal 7-18 [facility] Comment on above: Result Comment: Canc elled via OM: Order cancelled - Patient discharged Performed By: #### L 100.0100, L500.2500 #### [facility] [address] [place], [address] BUN/CRE Normal 10-20 [facility] Comment on above: Result Comment: Canc elled via OM: Order cancelled - Patient discharged Performed By: #### L 100.0100, L500.2500 #### [facility] [address] [place], [address] CA,Total Normal 8.5-10.1 [facility] Comment on above: Result Comment: Canc elled via OM: Order cancelled - Patient discharged Performed By: #### L 100.0100, L500.2500 #### [facility] [address] [place], [address] CL Normal 98-107 [facility] Comment on above: Result Comment: Canc elled via OM: Order cancelled - Patient discharged Performed By: #### L 100.0100, L500.2500 #### [facility] [address] [place], [address] CO2 Normal 21.0-32.0 [facility] Comment on above: Result Comment: Canc elled via OM: Order cancelled - Patient discharged Performed By: #### L 100.0100, L500.2500 #### [facility] [address] [place], [address] CREAT,SERUM Normal 0.55-1.02 [facility] Comment on above: Result Comment: Canc elled via OM: Order cancelled - Patient discharged Performed By: #### L 100.0100, L500.2500 #### [facility] [address] [place], [address] EST GFR Normal >60 [facility] Comment on above: Result Comment: Canc elled via OM: Order cancelled - Patient discharged Performed By: #### L 100.0100, L500.2500 #### [facility] [address] [place], [address] EST GFR - AA Normal >60 [facility] Comment on above: Result Comment: Canc elled via OM: Order cancelled - Patient discharged Performed By: #### L 100.0100, L500.2500 #### [facility] [address] [place], [address] GAP Normal 5-15 [facility] Comment on above: Result Comment: Canc elled via OM: Order cancelled - Patient discharged Performed By: #### L 100.0100, L500.2500 #### [facility] [address] [place], [address] GLU Normal 74-106 [facility] Comment on above: Result Comment: Canc elled via OM: Order cancelled - Patient discharged Performed By: #### L 100.0100, L500.2500 #### [facility] [address] [place], [address] Potassium Normal 3.5-5.1 [facility] Comment on above: Result Comment: Canc elled via OM: Order cancelled - Patient discharged Performed By: #### L 100.0100, L500.2500 #### [facility] [address] [place], [address] Basic Metabolic Profile (BMP) Normal 136-145 [facility] Comment on above: Result Comment: Canc elled via OM: Order cancelled - Patient discharged Performed By: #### L 100.0100, L500.2500 #### [facility] [address] [place], [address] CBC W/Diff, Automatedon 02-0 Absolute Neut Normal 2.0-7.7 [facility] Comment on above: Result Comment: Canc elled via OM: Order cancelled - Patient discharged Performed By: #### L 100.0100, L500.2500 #### [facility] [address] [place], [address] HCT Normal 37-47 [facility] Comment on above: Result Comment: Canc elled via OM: Order cancelled - Patient discharged Performed By: #### L 100.0100, L500.2500 #### [facility] [address] [place], [address] HGB Normal 12.0-15.0 [facility] Comment on above: Result Comment: Canc elled via OM: Order cancelled - Patient discharged Performed By: #### L 100.0100, L500.2500 #### [facility] [address] [place], [address] MCH Normal 27.0-32.0 [facility] Comment on above: Result Comment: Canc elled via OM: Order cancelled - Patient discharged Performed By: #### L 100.0100, L500.2500 #### [facility] [address] [place], [address] MCHC Normal 32-36 [facility] Comment on above: Result Comment: Canc elled via OM: Order cancelled - Patient discharged Performed By: #### L 100.0100, L500.2500 #### [facility] [address] [place], [address] MCV Normal 81-99 [facility] Comment on above: Result Comment: Canc elled via OM: Order cancelled - Patient discharged Performed By: #### L 100.0100, L500.2500 #### [facility] [address] [place], [address] NEUT% Normal 47-70 [facility] Comment on above: Result Comment: Canc elled via OM: Order cancelled - Patient discharged Performed By: #### L 100.0100, L500.2500 #### [facility] [address] [place], [address] PLT Normal 150-450 [facility] Comment on above: Result Comment: Canc elled via OM: Order cancelled - Patient discharged Performed By: #### L 100.0100, L500.2500 #### [facility] [address] [place], [address] RBC Normal 4.2-5.4 [facility] Comment on above: Result Comment: Canc elled via OM: Order cancelled - Patient discharged Performed By: #### L 100.0100, L500.2500 #### [facility] [address] [place], [address] RDW CV Normal 11.6-14.6 [facility] Comment on above: Result Comment: Canc elled via OM: Order cancelled - Patient discharged Performed By: #### L 100.0100, L500.2500 #### [facility] [address] [place], [address] RDW SD Normal 35.1-43.9 [facility] Comment on above: Result Comment: Canc elled via OM: Order cancelled - Patient discharged Performed By: #### L 100.0100, L500.2500 #### [facility] [address] [place], [address] WBC Normal 4.4-11.0 [facility] Comment on above: Result Comment: Canc elled via OM: Order cancelled - Patient discharged Performed By: #### L 100.0100, L500.2500 #### [facility] [address] [place], [address] Absolute lymphocyte countOrd ered By: Brigida Lance on 05-15-2024 Lymphocytes Auto (Unsp spec) [#/Vol] 2.27 10*3/uL 0.83-4.51 [facility] Absolute neutrophil countOrd ered By: Brigida Lance on 05-15-2024 Neutrophils (Bld) [#/Vol] 6.0 10*3/uL 2.0-7.7 [facility] Automated lymphocyte count a s percentage of total leukocytesOrdered By: Brigida Lance on 05-15-2024 Lymphocytes/100 WBC Auto (Unsp spec) 23.2 % 19-41 [facility] Basic Metabolic Profile (BMP )on 05-15-2024 BUN/CRE 14.2 RATIO Normal 10-20 [facility] Comment on above: Performed By: #### L 100.0100, L500.2500 #### [facility] [address] [place], [address] CA,Total 9.8 mg/dL Normal 8.5-10.1 [facility] Comment on above: Performed By: #### L 100.0100, L500.2500 #### [facility] [address] [place], [address] Chloride [Moles/Vol] 110 mmol/L High 98-107 [facility] Comment on above: Performed By: #### L 100.0100, L500.2500 #### [facility] [address] [place], [address] CO2 [Moles/Vol] 23.0 mmol/L Normal 21.0-32.0 [facility] Comment on above: Performed By: #### L 100.0100, L500.2500 #### [facility] [address] [place], [address] Creatinine [Mass/Vol] 1.20 mg/dL High 0.55-1.02 [facility] Comment on above: Result Comment: The validity of the calculated GFR GFRAA in patients over 70 years has not been determined. Clinical correlation is essential. Performed By: #### L 100.0100, L500.2500 #### [facility] [address] [place], [address] ECRCL 48.88 ml/min Normal [facility] Comment on above: Performed By: #### L 100.0100, L500.2500 #### [facility] [address] [place], [address] EST GFR - AA 57 mL/min Low >60 [facility] Comment on above: Result Comment: Afri can Angolan GFR Calc Performed By: #### L 100.0100, L500.2500 #### [facility] [address] [place], [address] GAP 6 Normal 5-15 [facility] Comment on above: Performed By: #### L 100.0100, L500.2500 #### [facility] [address] [place], [address] GFR/1.73 sq M.predicted among non-blacks MDRD (S/P/Bld) [Vol rate/Area] 47 mL/min/{1.73_m2} Low >60 [facility] Comment on above: Result Comment: Non- GFR Calc Performed By: #### L 100.0100, L500.2500 #### [facility] [address] [place], [address] Glucose [Mass/Vol] 148 mg/dL High 74-106 [facility] Comment on above: Result Comment: Fast ing Glucose result greater than or equal to 126 mg/dL suggests DIABETES MELLITUS per A.D.A. criteria. Performed By: #### L 100.0100, L500.2500 #### [facility] [address] [place], [address] Potassium [Moles/Vol] 4.4 mmol/L Normal 3.5-5.1 [facility] Comment on above: Performed By: #### L 100.0100, L500.2500 #### [facility] [address] [place], [address] Sodium [Moles/Vol] 139 mmol/L Normal 136-145 [facility] Comment on above: Performed By: #### L 100.0100, L500.2500 #### [facility] [address] [place], [address] Urea nitrogen [Mass/Vol] 17 mg/dL Normal 7-18 [facility] Comment on above: Performed By: #### L 100.0100, L500.2500 #### [facility] [address] [place], [address] Basophil percentageOrdered B y: Brigida Lance on 05-15-2024 Basophils/100 WBC (Bld) 0.8 % 0-1 [facility] Bedside Glucoseon 05-15-2024 FINGERSTICK GLU 143 mg/dL High 74-106 [facility] Comment on above: Result Comment: ANKUSH OROZCOENT OF PATIENT CARE PER NURSING PROTOCOL Performed By: #### L 501.080 #### [facility] [address] [place], [address] FINGERSTICK GLU 162 mg/dL High 74-106 [facility] Comment on above: Result Comment: ANKUSH OROZCOENT OF PATIENT CARE PER NURSING PROTOCOL Performed By: #### L 400.0001 #### [facility] [address] [place], [address] Blood urea nitrogen (BUN)/cr eatinine ratioOrdered By: Brigida Lance on 05-15-2024 Urea nitrogen/Creatinine [Mass ratio] 14.2 mg/mg 10-20 [facility] CBC W/Diff, Automatedon Absolute Lymph 2.27 X10 3/uL Normal 0.83-4.51 [facility] Comment on above: Performed By: #### L 100.0100, L500.2500 #### [facility] [address] [place], [address] Absolute Neut 6.0 X10 3/uL Normal 2.0-7.7 [facility] Comment on above: Performed By: #### L 100.0100, L500.2500 #### [facility] [address] [place], [address] Basophils/100 WBC (Bld) 0.8 % Normal 0-1 [facility] Comment on above: Performed By: #### L 100.0100, L500.2500 #### [facility] [address] [place], [address] Eosinophils/100 WBC (Bld) 5.1 % High 0-5 [facility] Comment on above: Performed By: #### L 100.0100, L500.2500 #### [facility] [address] [place], [address] Erythrocyte distribution width (RBC) [Ratio] 15.8 % High 11.6-14.6 [facility] Comment on above: Performed By: #### L 100.0100, L500.2500 #### [facility] [address] [place], [address] Hematocrit (Bld) [Volume fraction] 36.8 % Low 37-47 [facility] Comment on above: Performed By: #### L 100.0100, L500.2500 #### [facility] [address] [place], [address] Hemoglobin (Bld) [Mass/Vol] 11.1 g/dL Low 12.0-15.0 [facility] Comment on above: Performed By: #### L 100.0100, L500.2500 #### [facility] [address] [place], [address] IG% 2.900 High 0.0-0.9 [facility] Comment on above: Result Comment: IG% - Immature Granulocytes (promyelocytes, myelocytes and metamyelocytes) > 1% indicates that a LEFT SHIFT is Present. Performed By: #### L 100.0100, L500.2500 #### [facility] [address] [place], [address] Lymphocytes/100 WBC (Bld) 23.2 % Normal 19-41 [facility] Comment on above: Performed By: #### L 100.0100, L500.2500 #### [facility] [address] [place], [address] MCH (RBC) [Entitic mass] 26.2 pg Low 27.0-32.0 [facility] Comment on above: Performed By: #### L 100.0100, L500.2500 #### [facility] [address] [place], [address] MCHC (RBC) [Mass/Vol] 30.2 g/dL Low 32-36 [facility] Comment on above: Performed By: #### L 100.0100, L500.2500 #### [facility] [address] [place], [address] MCV (RBC) [Entitic vol] 87.0 fL Normal 81-99 [facility] Comment on above: Performed By: #### L 100.0100, L500.2500 #### [facility] [address] [place], [address] Monocytes/100 WBC (Bld) 6.8 % Normal 0-10 [facility] Comment on above: Performed By: #### L 100.0100, L500.2500 #### [facility] [address] [place], [address] Neutrophils/100 WBC (Bld) 61.2 % Normal 47-70 [facility] Comment on above: Performed By: #### L 100.0100, L500.2500 #### [facility] [address] [place], [address] Nucleated RBC (Bld) [#/Vol] 0 10*3/uL Normal 0-5 [facility] Comment on above: Performed By: #### L 100.0100, L500.2500 #### [facility] [address] [place], [address] Platelet mean volume (Bld) [Entitic vol] 10.3 fL Normal 6.2-12.0 [facility] Comment on above: Performed By: #### L 100.0100, L500.2500 #### [facility] [address] [place], [address] Platelets (Bld) [#/Vol] 334 10*3/uL Normal 150-450 [facility] Comment on above: Performed By: #### L 100.0100, L500.2500 #### [facility] [address] [place], [address] RBC (Bld) [#/Vol] 4.23 10*6/uL Normal 4.2-5.4 [facility] Comment on above: Performed By: #### L 100.0100, L500.2500 #### [facility] [address] [place], [address] RDW SD 49.4 fl High 35.1-43.9 [facility] Comment on above: Performed By: #### L 100.0100, L500.2500 #### [facility] [address] [place], [address] WBC (Bld) [#/Vol] 9.8 10*3/uL Normal 4.4-11.0 [facility] Comment on above: Performed By: #### L 100.0100, L500.2500 #### [facility] [address] [place], [address] Carbon dioxide measurementOr dered By: Brigida Lance on 05-15-2024 CO2 [Moles/Vol] 23.0 mmol/L 21.0-32.0 [facility] Chloride measurementOrdered By: Brigida Lance on 05-15-2024 Chloride [Moles/Vol] 110 mmol/L High 98-107 [facility] Discharge Instructionon Discharge Instruction [facility] Medical Records Department [address] [place] [address] Instructions for Home/Discharge Instructions 05/15/24 1235 MR#: [id number] Acct: [id number] Name: CORINNA CARR Rep #: [id number] : [id number] From: Brigida Lance MD PCP: MICKY Guaman Status:ADM IN Discharge Instructions Diet Discharge Diet: Low fat / Low cholesterol DC O2, CPAP, BIPAP needs Home O2 Discharge instructions: No Dressing / Incision Discharge Activity: Return to Normal Activity Weight Bearing Status: Weight bearing as tolerated Dressing / Incision Call your doctor if you observe: Fever of 101 or Higher, Dizziness, Swelling in the ankles, Chest pain and Uncontrolled pain Follow Up Care Test Results: Test results from this visit will be discussed in further detail at your follow-up appointment, if applicable. Discharge Plan Admission Admit Date/Time: 05/07/24 16:43 Primary Reason for Your Visit: fracture of distal right tibia Attending Provider: Brigida Lance Primary Care Provider: Yoko Erazo Consulting Providers: Claude Nayak; Desirae Chen; Randall Osborne Instructions Patient Instructions: ED Leg Fracture Discharge Orders/Prescriptions Prescriptions: New midodrine 5 mg Tablet 10 mg PO TIDCM Qty: 90 2RF oxycodone 5 mg tablet 5 mg PO Q6H PRN (Reason: pain) 3 Days Qty: 12 0RF Continued omeprazole 40 MG capsule,delayed release(DR/EC) 40 mg PO DAILY gabapentin 300 MG capsule 300 mg PO BID pravastatin 20 MG tablet 20 mg PO QHS hydroxychloroquine 200 MG tablet 200 mg PO DAILY metformin 500 MG tablet extended release 24 hr 500 mg PO BID bupropion HCl 150 MG tablet extended release 24 hr 150 mg PO DAILY sucralfate 1 GM tablet 1 g PO TID gabapentin 300 mg capsule 600 mg PO QHS hydroxyzine HCl 25 mg tablet 25 mg PO TID PRN PRN (Reason: anxiety) Jardiance 10 mg tablet 10 mg PO DAILY potassium chloride 10 mEq tablet extended release 10 meq PO DAILY sertraline 25 mg tablet 12.5 mg PO DAILY Trulicity 3 mg/0.5 mL pen injector 3 mg subcut QWEEK cholecalciferol (vitamin D3) 1,250 mcg (50,000 unit) capsule 1,250 mcg PO QWEEK Discontinued furosemide 20 MG tablet 20 mg PO DAILY tramadol 50 mg tablet 50 mg PO TID PRN Referrals / Follow Up: Raghu Ellis DPM [Med Staff - Active Staff] - Within 1 Week Jaki Verdugo MD [Non-Staff] - Within 1 Week Erazo,Yoko, SHOW HOST OR HOSTESS-C [Primary Care Provider] - Disposition Disposition (needs filled in before D/C Order can be placed): Home Health Service 05/15/24 1237 Brigida Lance MD CC: CRIS-Juan Erazo; Dr. Claude Nayak, DO; Dr. Desirae Chen, DO; Dr. Randall Osborne, DO Signed Normal [facility] Eosinophil percentageOrdered By: Brigida Lance on 05-15-2024 Eosinophils/100 WBC (Bld) 5.1 % High 0-5 [facility] Erythrocyte distribution wid th ratioOrdered By: Brigida Lance on 05-15-2024 Erythrocyte distribution width (RBC) [Ratio] 15.8 % High 11.6-14.6 [facility] Erythrocyte distribution wid th standard deviationOrdered By: Brigida Lance on 05-15-2024 Erythrocyte distribution width (RBC) [Ratio] 49.4 fl High 35.1-43.9 [facility] Glomerular filtration rate ( GFR) estimationOrdered By: Brigida Lance on 05-15-2024 GFR/1.73 sq M.predicted among non-blacks MDRD (S/P/Bld) [Vol rate/Area] 47 mL/min/{1.73_m2} Low >60 [facility] Comment on above: Non- GFR Calc Glucose measurementOrdered B y: Brigida Lance on 05-15-2024 Glucose [Mass/Vol] 148 mg/dL High 74-106 [facility] Comment on above: Fasting Glucose resu lt greater than or equal to 126 mg/dL suggests DIABETES MELLITUS per A.D.A. criteria. Glucose measurement at bedsi deOrdered By: Brigida Lance on 05-15-2024 Glucose [Mass/Vol] 143 mg/dL High 74-106 [facility] Comment on above: MANAGEMENT OF PATIEN T CARE PER NURSING PROTOCOL Hematocrit Auto (Bld) [Volum e fraction]Ordered By: Brigida Lance on 05-15-2024 Hematocrit (Bld) [Volume fraction] 36.8 % Low 37-47 [facility] Hemoglobin measurementOrdere d By: Brigida Lance on 05-15-2024 Hemoglobin (Bld) [Mass/Vol] 11.1 g/dL Low 12.0-15.0 [facility] Immature granulocytes/100 WB C Auto (Bld)Ordered By: Brigida Lance on 05-15-2024 Immature granulocytes/100 WBC (Bld) 2.900 % High 0.0-0.9 [facility] Comment on above: IG% - Immature Granu locytes (promyelocytes, myelocytes and metamyelocytes) > 1% indicates that a LEFT SHIFT is Present. MCV (mean corpuscular volume ) determinationOrdered By: Brigida Lance on 05-15-2024 MCV (RBC) [Entitic vol] 87.0 fL 81-99 [facility] Mean corpuscular hemoglobin (MCH) determinationOrdered By: Brigida Lance on 05-15-2024 MCH (RBC) [Entitic mass] 26.2 pg Low 27.0-32.0 [facility] Mean corpuscular hemoglobin concentration (MCHC) determinationOrdered By: Brigida Lance on 05-15-2024 MCHC (RBC) [Mass/Vol] 30.2 g/dL Low 32-36 [facility] Mean platelet volume determi nationOrdered By: Brigida Lance on 05-15-2024 Platelet mean volume (Bld) [Entitic vol] 10.3 fL 6.2-12.0 [facility] Monocyte percentageOrdered B y: Brigida Lance on 05-15-2024 Monocytes/100 WBC (Bld) 6.8 % 0-10 [facility] Neutrophil percentageOrdered By: Brigida Lance on 05-15-2024 Neutrophils/100 WBC (Bld) 61.2 % 47-70 [facility] Nucleated red blood cell per centageOrdered By: Brigida Lance on 05-15-2024 Nucleated RBC/100 WBC (Bld) [Ratio] 0 % 0-5 [facility] Platelet countOrdered By: Na noemi Lance on 05-15-2024 Platelets (Bld) [#/Vol] 334 10*3/uL 150-450 [facility] Potassium measurementOrdered By: Brigida Lance on 05-15-2024 Potassium [Moles/Vol] 4.4 mmol/L 3.5-5.1 [facility] RBC Auto (Bld) [#/Vol]Ordere d By: Brigida Lance on 05-15-2024 RBC (Bld) [#/Vol] 4.23 10*6/uL 4.2-5.4 [facility] Serum anion gap measurementO rdered By: Brigida Lance on 05-15-2024 Anion gap [Moles/Vol] 6 mmol/L 5-15 [facility] Serum or plasma calcium luna urement (mass/volume)Ordered By: Brigida Lance on 05-15-2024 Calcium [Mass/Vol] 9.8 mg/dL 8.5-10.1 [facility] Serum or plasma creatinine m easurement (mass/volume)Ordered By: Brigida Lance on 05-15-2024 Creatinine [Mass/Vol] 1.20 mg/dL High 0.55-1.02 [facility] Comment on above: The validity of the calculated GFR & GFRAA in patients over 70 years has not been determined. Clinical correlation is essential. Serum or plasma urea nitroge n measurement (mass/volume)Ordered By: Brigida Lacne on 05-15-2024 Urea nitrogen [Mass/Vol] 17 mg/dL 7-18 [facility] Sodium levelOrdered By: Brigida Lance on 05-15-2024 Sodium [Moles/Vol] 139 mmol/L 136-145 [facility] White blood cell (WBC) count Ordered By: Brigida Lance on 05-15-2024 WBC (Bld) [#/Vol] 9.8 10*3/uL 4.4-11.0 [facility] Basic Metabolic Profile (BMP )on 05-14-2024 BUN/CRE 15.0 RATIO Normal 10-20 [facility] Comment on above: Performed By: #### L 100.0100, L500.2500 #### [facility] [address] [place], [address] CA,Total 9.7 mg/dL Normal 8.5-10.1 [facility] Comment on above: Performed By: #### L 100.0100, L500.2500 #### [facility] [address] [place], [address] Chloride [Moles/Vol] 112 mmol/L High 98-107 [facility] Comment on above: Performed By: #### L 100.0100, L500.2500 #### [facility] [address] [place], [address] CO2 [Moles/Vol] 21.0 mmol/L Normal 21.0-32.0 [facility] Comment on above: Performed By: #### L 100.0100, L500.2500 #### [facility] [address] [place], [address] Creatinine [Mass/Vol] 1.13 mg/dL High 0.55-1.02 [facility] Comment on above: Result Comment: The validity of the calculated GFR GFRAA in patients over 70 years has not been determined. Clinical correlation is essential. Performed By: #### L 100.0100, L500.2500 #### [facility] [address] [place], [address] ECRCL 51.90 ml/min Normal [facility] Comment on above: Performed By: #### L 100.0100, L500.2500 #### [facility] [address] [place], [address] EST GFR - AA 62 mL/min Normal >60 [facility] Comment on above: Result Comment: Afri can Angolan GFR Calc Performed By: #### L 100.0100, L500.2500 #### [facility] [address] [place], [address] GAP 7 Normal 5-15 [facility] Comment on above: Performed By: #### L 100.0100, L500.2500 #### [facility] [address] [place], [address] GFR/1.73 sq M.predicted among non-blacks MDRD (S/P/Bld) [Vol rate/Area] 51 mL/min/{1.73_m2} Low >60 [facility] Comment on above: Result Comment: Non- GFR Calc Performed By: #### L 100.0100, L500.2500 #### [facility] [address] [place], [address] Glucose [Mass/Vol] 119 mg/dL High 74-106 [facility] Comment on above: Result Comment: Fast ing Glucose result from 100 to 125 mg/dL suggests IMPAIRED HOMEOSTASIS per A.D.A. criteria. Performed By: #### L 100.0100, L500.2500 #### [facility] [address] [place], [address] Potassium [Moles/Vol] 4.3 mmol/L Normal 3.5-5.1 [facility] Comment on above: Performed By: #### L 100.0100, L500.2500 #### [facility] [address] [place], [address] Sodium [Moles/Vol] 140 mmol/L Normal 136-145 [facility] Comment on above: Performed By: #### L 100.0100, L500.2500 #### [facility] [address] [place], [address] Urea nitrogen [Mass/Vol] 17 mg/dL Normal 7-18 [facility] Comment on above: Performed By: #### L 100.0100, L500.2500 #### [facility] [address] [place], [address] Bedside Glucoseon 05-14-2024 FINGERSTICK GLU 175 mg/dL High 74-106 [facility] Comment on above: Result Comment: ANKUSH GEMENT OF PATIENT CARE PER NURSING PROTOCOL Performed By: #### L 501.080 #### [facility] [address] [place], [address] FINGERSTICK GLU 150 mg/dL High 74-106 [facility] Comment on above: Result Comment: ANKUSH GEMENT OF PATIENT CARE PER NURSING PROTOCOL Performed By: #### L 100.0100, L500.2500 #### [facility] [address] [place], [address] FINGERSTICK GLU 181 mg/dL High 74-106 [facility] Comment on above: Result Comment: ANKUSH GEMENT OF PATIENT CARE PER NURSING PROTOCOL Performed By: #### L 100.0100, L500.2500 #### [facility] [address] [place], [address] FINGERSTICK GLU 108 mg/dL High 74-106 [facility] Comment on above: Result Comment: ANKUSH GEMENT OF PATIENT CARE PER NURSING PROTOCOL Performed By: #### L 100.0100, L500.2500 #### [facility] [address] [place], [address] CBC W/Diff, Automatedon 02-0 6-2024 Absolute Lymph 1.79 X10 3/uL Normal 0.83-4.51 [facility] Comment on above: Performed By: #### L 100.0100, L500.2500 #### [facility] [address] [place], [address] Absolute Neut 5.2 X10 3/uL Normal 2.0-7.7 [facility] Comment on above: Performed By: #### L 100.0100, L500.2500 #### [facility] [address] [place], [address] Basophils/100 WBC (Bld) 0.6 % Normal 0-1 [facility] Comment on above: Performed By: #### L 100.0100, L500.2500 #### [facility] [address] [place], [address] Eosinophils/100 WBC (Bld) 4.6 % Normal 0-5 [facility] Comment on above: Performed By: #### L 100.0100, L500.2500 #### [facility] [address] [place], [address] Erythrocyte distribution width (RBC) [Ratio] 15.7 % High 11.6-14.6 [facility] Comment on above: Performed By: #### L 100.0100, L500.2500 #### [facility] [address] [place], [address] Hematocrit (Bld) [Volume fraction] 35.5 % Low 37-47 [facility] Comment on above: Performed By: #### L 100.0100, L500.2500 #### [facility] [address] [place], [address] Hemoglobin (Bld) [Mass/Vol] 10.5 g/dL Low 12.0-15.0 [facility] Comment on above: Performed By: #### L 100.0100, L500.2500 #### [facility] [address] [place], [address] IG% 1.800 High 0.0-0.9 [facility] Comment on above: Result Comment: IG% - Immature Granulocytes (promyelocytes, myelocytes and metamyelocytes) > 1% indicates that a LEFT SHIFT is Present. Performed By: #### L 100.0100, L500.2500 #### [facility] [address] [place], [address] Lymphocytes/100 WBC (Bld) 21.9 % Normal 19-41 [facility] Comment on above: Performed By: #### L 100.0100, L500.2500 #### [facility] [address] [place], [address] MCH (RBC) [Entitic mass] 25.8 pg Low 27.0-32.0 [facility] Comment on above: Performed By: #### L 100.0100, L500.2500 #### [facility] [address] [place], [address] MCHC (RBC) [Mass/Vol] 29.6 g/dL Low 32-36 [facility] Comment on above: Performed By: #### L 100.0100, L500.2500 #### [facility] [address] [place], [address] MCV (RBC) [Entitic vol] 87.2 fL Normal 81-99 [facility] Comment on above: Performed By: #### L 100.0100, L500.2500 #### [facility] [address] [place], [address] Monocytes/100 WBC (Bld) 7.5 % Normal 0-10 [facility] Comment on above: Performed By: #### L 100.0100, L500.2500 #### [facility] [address] [place], [address] Neutrophils/100 WBC (Bld) 63.6 % Normal 47-70 [facility] Comment on above: Performed By: #### L 100.0100, L500.2500 #### [facility] [address] [place], [address] Nucleated RBC (Bld) [#/Vol] 0 10*3/uL Normal 0-5 [facility] Comment on above: Performed By: #### L 100.0100, L500.2500 #### [facility] [address] [place], [address] Platelet mean volume (Bld) [Entitic vol] 10.0 fL Normal 6.2-12.0 [facility] Comment on above: Performed By: #### L 100.0100, L500.2500 #### [facility] [address] [place], [address] Platelets (Bld) [#/Vol] 291 10*3/uL Normal 150-450 [facility] Comment on above: Performed By: #### L 100.0100, L500.2500 #### [facility] [address] [place], [address] RBC (Bld) [#/Vol] 4.07 10*6/uL Low 4.2-5.4 [facility] Comment on above: Performed By: #### L 100.0100, L500.2500 #### [facility] [address] [place], [address] RDW SD 49.4 fl High 35.1-43.9 [facility] Comment on above: Performed By: #### L 100.0100, L500.2500 #### [facility] [address] [place], [address] WBC (Bld) [#/Vol] 8.2 10*3/uL Normal 4.4-11.0 [facility] Comment on above: Performed By: #### L 100.0100, L500.2500 #### [facility] [address] [place], [address] Basic Metabolic Profile (BMP )on 05-13-2024 BUN/CRE 14.0 RATIO Normal 10-20 [facility] Comment on above: Performed By: #### L 100.0100, L500.2500 #### [facility] [address] [place], [address] CA,Total 9.5 mg/dL Normal 8.5-10.1 [facility] Comment on above: Performed By: #### L 100.0100, L500.2500 #### [facility] [address] [place], [address] Chloride [Moles/Vol] 113 mmol/L High 98-107 [facility] Comment on above: Performed By: #### L 100.0100, L500.2500 #### [facility] [address] [place], [address] CO2 [Moles/Vol] 22.0 mmol/L Normal 21.0-32.0 [facility] Comment on above: Performed By: #### L 100.0100, L500.2500 #### [facility] [address] [place], [address] Creatinine [Mass/Vol] 1.21 mg/dL High 0.55-1.02 [facility] Comment on above: Result Comment: The validity of the calculated GFR GFRAA in patients over 70 years has not been determined. Clinical correlation is essential. Performed By: #### L 100.0100, L500.2500 #### [facility] [address] [place], [address] ECRCL 48.47 ml/min Normal [facility] Comment on above: Performed By: #### L 100.0100, L500.2500 #### [facility] [address] [place], [address] EST GFR - AA 57 mL/min Low >60 [facility] Comment on above: Result Comment: Afri can Angolan GFR Calc Performed By: #### L 100.0100, L500.2500 #### [facility] [address] [place], [address] GAP 7 Normal 5-15 [facility] Comment on above: Performed By: #### L 100.0100, L500.2500 #### [facility] [address] [place], [address] GFR/1.73 sq M.predicted among non-blacks MDRD (S/P/Bld) [Vol rate/Area] 47 mL/min/{1.73_m2} Low >60 [facility] Comment on above: Result Comment: Non- GFR Calc Performed By: #### L 100.0100, L500.2500 #### [facility] [address] [place], [address] Glucose [Mass/Vol] 143 mg/dL High 74-106 [facility] Comment on above: Result Comment: Fast ing Glucose result greater than or equal to 126 mg/dL suggests DIABETES MELLITUS per A.D.A. criteria. Performed By: #### L 100.0100, L500.2500 #### [facility] [address] [place], [address] Potassium [Moles/Vol] 4.5 mmol/L Normal 3.5-5.1 [facility] Comment on above: Performed By: #### L 100.0100, L500.2500 #### [facility] [address] [place], [address] Sodium [Moles/Vol] 142 mmol/L Normal 136-145 [facility] Comment on above: Performed By: #### L 100.0100, L500.2500 #### [facility] [address] [place], [address] Urea nitrogen [Mass/Vol] 17 mg/dL Normal 7-18 [facility] Comment on above: Performed By: #### L 100.0100, L500.2500 #### [facility] [address] [place], [address] Bedside Glucoseon 05-13-2024 FINGERSTICK GLU 120 mg/dL High 74-106 [facility] Comment on above: Result Comment: ANKUSH GEMENT OF PATIENT CARE PER NURSING PROTOCOL Performed By: #### L 501.080 #### [facility] [address] [place], [address] FINGERSTICK GLU 116 mg/dL High 74-106 [facility] Comment on above: Result Comment: ANKUSH GEMENT OF PATIENT CARE PER NURSING PROTOCOL Performed By: #### L 501.080 #### [facility] [address] [place], [address] FINGERSTICK GLU 126 mg/dL High 74-106 [facility] Comment on above: Result Comment: ANKUSH GEMENT OF PATIENT CARE PER NURSING PROTOCOL Performed By: #### L 501.080 #### [facility] [address] [place], [address] CBC W/Diff, Automatedon 02-0 5-2024 Absolute Lymph 1.83 X10 3/uL Normal 0.83-4.51 [facility] Comment on above: Performed By: #### L 100.0100, L500.2500 #### [facility] [address] [place], [address] Absolute Neut 4.8 X10 3/uL Normal 2.0-7.7 [facility] Comment on above: Performed By: #### L 100.0100, L500.2500 #### [facility] [address] [place], [address] Basophils/100 WBC (Bld) 0.8 % Normal 0-1 [facility] Comment on above: Performed By: #### L 100.0100, L500.2500 #### [facility] [address] [place], [address] Eosinophils/100 WBC (Bld) 5.8 % High 0-5 [facility] Comment on above: Performed By: #### L 100.0100, L500.2500 #### [facility] [address] [place], [address] Erythrocyte distribution width (RBC) [Ratio] 15.7 % High 11.6-14.6 [facility] Comment on above: Performed By: #### L 100.0100, L500.2500 #### [facility] [address] [place], [address] Hematocrit (Bld) [Volume fraction] 36.6 % Low 37-47 [facility] Comment on above: Performed By: #### L 100.0100, L500.2500 #### [facility] [address] [place], [address] Hemoglobin (Bld) [Mass/Vol] 10.8 g/dL Low 12.0-15.0 [facility] Comment on above: Performed By: #### L 100.0100, L500.2500 #### [facility] [address] [place], [address] IG% 1.700 High 0.0-0.9 [facility] Comment on above: Result Comment: IG% - Immature Granulocytes (promyelocytes, myelocytes and metamyelocytes) > 1% indicates that a LEFT SHIFT is Present. Performed By: #### L 100.0100, L500.2500 #### [facility] [address] [place], [address] Lymphocytes/100 WBC (Bld) 23.6 % Normal 19-41 [facility] Comment on above: Performed By: #### L 100.0100, L500.2500 #### [facility] [address] [place], [address] MCH (RBC) [Entitic mass] 26.2 pg Low 27.0-32.0 [facility] Comment on above: Performed By: #### L 100.0100, L500.2500 #### [facility] [address] [place], [address] MCHC (RBC) [Mass/Vol] 29.5 g/dL Low 32-36 [facility] Comment on above: Performed By: #### L 100.0100, L500.2500 #### [facility] [address] [place], [address] MCV (RBC) [Entitic vol] 88.8 fL Normal 81-99 [facility] Comment on above: Performed By: #### L 100.0100, L500.2500 #### [facility] [address] [place], [address] Monocytes/100 WBC (Bld) 6.6 % Normal 0-10 [facility] Comment on above: Performed By: #### L 100.0100, L500.2500 #### [facility] [address] [place], [address] Neutrophils/100 WBC (Bld) 61.5 % Normal 47-70 [facility] Comment on above: Performed By: #### L 100.0100, L500.2500 #### [facility] [address] [place], [address] Nucleated RBC (Bld) [#/Vol] 0 10*3/uL Normal 0-5 [facility] Comment on above: Performed By: #### L 100.0100, L500.2500 #### [facility] [address] [place], [address] Platelet mean volume (Bld) [Entitic vol] 10.4 fL Normal 6.2-12.0 [facility] Comment on above: Performed By: #### L 100.0100, L500.2500 #### [facility] [address] [place], [address] Platelets (Bld) [#/Vol] 272 10*3/uL Normal 150-450 [facility] Comment on above: Performed By: #### L 100.0100, L500.2500 #### [facility] [address] [place], [address] RBC (Bld) [#/Vol] 4.12 10*6/uL Low 4.2-5.4 [facility] Comment on above: Performed By: #### L 100.0100, L500.2500 #### [facility] [address] [place], [address] RDW SD 50.4 fl High 35.1-43.9 [facility] Comment on above: Performed By: #### L 100.0100, L500.2500 #### [facility] [address] [place], [address] WBC (Bld) [#/Vol] 7.8 10*3/uL Normal 4.4-11.0 [facility] Comment on above: Performed By: #### L 100.0100, L500.2500 #### [facility] [address] [place], [address] Urine Cultureon 05-13-2024 URC Escherichia coli [place] Count 25,000-50,000 Escherichia coli: REACTION Ampicillin Islt BARBARA 8 Ampicillin+Sulbac Islt BARBARA 4 S Cefepime Islt BARBARA <=0.12 S cefTRIAXone Islt BARBARA <=0.25 S Ciprofloxacin Islt BARBARA <=0.06 S B-Lactamase Extended Susc Islt NEG Gentamicin Islt BARBARA <=1 S levoFLOXacin Islt BARBARA <=0.12 S Meropenem Islt BARBARA <=0.25 S Nitrofurantoin Islt BARBARA <=16 S Pip+Tazo Islt BARBARA <=4 S TMP SMX Islt BARBARA <=20 S Normal [facility] Comment on above: Performed By: #### L 501.080 #### [facility] [address] [place], [address] Basic Metabolic Profile (BMP )on 05-12-2024 BUN/CRE 16.3 RATIO Normal 10-20 [facility] Comment on above: Performed By: #### L 501.080 #### [facility] [address] [place], [address] CA,Total 9.3 mg/dL Normal 8.5-10.1 [facility] Comment on above: Performed By: #### L 501.080 #### [facility] [address] [place], [address] Chloride [Moles/Vol] 112 mmol/L High 98-107 [facility] Comment on above: Performed By: #### L 501.080 #### [facility] [address] [place], [address] CO2 [Moles/Vol] 20.0 mmol/L Low 21.0-32.0 [facility] Comment on above: Performed By: #### L 501.080 #### [facility] [address] [place], [address] Creatinine [Mass/Vol] 1.04 mg/dL High 0.55-1.02 [facility] Comment on above: Result Comment: The validity of the calculated GFR GFRAA in patients over 70 years has not been determined. Clinical correlation is essential. Performed By: #### L 501.080 #### [facility] [address] [place], [address] ECRCL 56.39 ml/min Normal [facility] Comment on above: Performed By: #### L 501.080 #### [facility] [address] [place], [address] EST GFR - AA 68 mL/min Normal >60 [facility] Comment on above: Result Comment: Afri can Angolan GFR Calc Performed By: #### L 501.080 #### [facility] [address] [place], [address] GAP 8 Normal 5-15 [facility] Comment on above: Performed By: #### L 501.080 #### [facility] [address] [place], [address] GFR/1.73 sq M.predicted among non-blacks MDRD (S/P/Bld) [Vol rate/Area] 56 mL/min/{1.73_m2} Low >60 [facility] Comment on above: Result Comment: Non- GFR Calc Performed By: #### L 501.080 #### [facility] [address] [place], [address] Glucose [Mass/Vol] 116 mg/dL High 74-106 [facility] Comment on above: Result Comment: Fast ing Glucose result from 100 to 125 mg/dL suggests IMPAIRED HOMEOSTASIS per A.D.A. criteria. Performed By: #### L 501.080 #### [facility] [address] [place], [address] Potassium [Moles/Vol] 4.1 mmol/L Normal 3.5-5.1 [facility] Comment on above: Performed By: #### L 501.080 #### [facility] [address] [place], [address] Sodium [Moles/Vol] 140 mmol/L Normal 136-145 [facility] Comment on above: Performed By: #### L 501.080 #### [facility] [address] [place], [address] Urea nitrogen [Mass/Vol] 17 mg/dL Normal 7-18 [facility] Comment on above: Performed By: #### L 501.080 #### [facility] [address] [place], [address] Bedside Glucoseon 05-12-2024 FINGERSTICK GLU 120 mg/dL High 74-106 [facility] Comment on above: Result Comment: ANKUSH GEMENT OF PATIENT CARE PER NURSING PROTOCOL Performed By: #### L 501.080 #### [facility] [address] [place], [address] FINGERSTICK GLU 128 mg/dL High 74-106 [facility] Comment on above: Result Comment: ANKUSH GEMENT OF PATIENT CARE PER NURSING PROTOCOL Performed By: #### L 501.080 #### [facility] [address] [place], [address] FINGERSTICK GLU 136 mg/dL High 74-106 [facility] Comment on above: Result Comment: ANKUSH GEMENT OF PATIENT CARE PER NURSING PROTOCOL Performed By: #### L 501.080 #### [facility] [address] [place], [address] FINGERSTICK GLU 114 mg/dL High 74-106 [facility] Comment on above: Result Comment: ANKUSH GEMENT OF PATIENT CARE PER NURSING PROTOCOL Performed By: #### L 100.0100, L500.2500 #### [facility] [address] [place], [address] CBC W/Diff, Automatedon 02-0 Absolute Lymph 1.76 X10 3/uL Normal 0.83-4.51 [facility] Comment on above: Performed By: #### L 501.080 #### [facility] [address] [place], [address] Absolute Neut 4.7 X10 3/uL Normal 2.0-7.7 [facility] Comment on above: Performed By: #### L 501.080 #### [facility] [address] [place], [address] Basophils/100 WBC (Bld) 0.8 % Normal 0-1 [facility] Comment on above: Performed By: #### L 501.080 #### [facility] [address] [place], [address] Eosinophils/100 WBC (Bld) 5.5 % High 0-5 [facility] Comment on above: Performed By: #### L 501.080 #### [facility] [address] [place], [address] Erythrocyte distribution width (RBC) [Ratio] 15.5 % High 11.6-14.6 [facility] Comment on above: Performed By: #### L 501.080 #### [facility] [address] [place], [address] Hematocrit (Bld) [Volume fraction] 35.5 % Low 37-47 [facility] Comment on above: Performed By: #### L 501.080 #### [facility] [address] [place], [address] Hemoglobin (Bld) [Mass/Vol] 10.6 g/dL Low 12.0-15.0 [facility] Comment on above: Performed By: #### L 501.080 #### [facility] [address] [place], [address] IG% 1.400 High 0.0-0.9 [facility] Comment on above: Result Comment: IG% - Immature Granulocytes (promyelocytes, myelocytes and metamyelocytes) > 1% indicates that a LEFT SHIFT is Present. Performed By: #### L 501.080 #### [facility] [address] [place], [address] Lymphocytes/100 WBC (Bld) 23.1 % Normal 19-41 [facility] Comment on above: Performed By: #### L 501.080 #### [facility] [address] [place], [address] MCH (RBC) [Entitic mass] 26.2 pg Low 27.0-32.0 [facility] Comment on above: Performed By: #### L 501.080 #### [facility] [address] [place], [address] MCHC (RBC) [Mass/Vol] 29.9 g/dL Low 32-36 [facility] Comment on above: Performed By: #### L 501.080 #### [facility] [address] [place], [address] MCV (RBC) [Entitic vol] 87.7 fL Normal 81-99 [facility] Comment on above: Performed By: #### L 501.080 #### [facility] [address] [place], [address] Monocytes/100 WBC (Bld) 7.5 % Normal 0-10 [facility] Comment on above: Performed By: #### L 501.080 #### [facility] [address] [place], [address] Neutrophils/100 WBC (Bld) 61.7 % Normal 47-70 [facility] Comment on above: Performed By: #### L 501.080 #### [facility] [address] [place], [address] Nucleated RBC (Bld) [#/Vol] 0 10*3/uL Normal 0-5 [facility] Comment on above: Performed By: #### L 501.080 #### [facility] [address] [place], [address] Platelet mean volume (Bld) [Entitic vol] 10.8 fL Normal 6.2-12.0 [facility] Comment on above: Performed By: #### L 501.080 #### [facility] [address] [place], [address] Platelets (Bld) [#/Vol] 251 10*3/uL Normal 150-450 [facility] Comment on above: Performed By: #### L 501.080 #### [facility] [address] [place], [address] RBC (Bld) [#/Vol] 4.05 10*6/uL Low 4.2-5.4 [facility] Comment on above: Performed By: #### L 501.080 #### [facility] [address] [place], [address] RDW SD 49.7 fl High 35.1-43.9 [facility] Comment on above: Performed By: #### L 501.080 #### [facility] [address] [place], [address] WBC (Bld) [#/Vol] 7.6 10*3/uL Normal 4.4-11.0 [facility] Comment on above: Performed By: #### L 501.080 #### [facility] [address] [place], [address] Basic Metabolic Profile (BMP )on 05-11-2024 BUN/CRE 15.3 RATIO Normal 10-20 [facility] Comment on above: Performed By: #### L 100.0100, L500.2500 #### [facility] [address] [place], [address] CA,Total 9.8 mg/dL Normal 8.5-10.1 [facility] Comment on above: Performed By: #### L 100.0100, L500.2500 #### [facility] [address] [place], [address] Chloride [Moles/Vol] 112 mmol/L High 98-107 [facility] Comment on above: Performed By: #### L 100.0100, L500.2500 #### [facility] [address] [place], [address] CO2 [Moles/Vol] 23.0 mmol/L Normal 21.0-32.0 [facility] Comment on above: Performed By: #### L 100.0100, L500.2500 #### [facility] [address] [place], [address] Creatinine [Mass/Vol] 1.18 mg/dL High 0.55-1.02 [facility] Comment on above: Result Comment: The validity of the calculated GFR GFRAA in patients over 70 years has not been determined. Clinical correlation is essential. Performed By: #### L 100.0100, L500.2500 #### [facility] [address] [place], [address] ECRCL 49.70 ml/min Normal [facility] Comment on above: Performed By: #### L 100.0100, L500.2500 #### [facility] [address] [place], [address] EST GFR - AA 59 mL/min Low >60 [facility] Comment on above: Result Comment: Afri can Angolan GFR Calc Performed By: #### L 100.0100, L500.2500 #### [facility] [address] [place], [address] GAP 6 Normal 5-15 [facility] Comment on above: Performed By: #### L 100.0100, L500.2500 #### [facility] [address] [place], [address] GFR/1.73 sq M.predicted among non-blacks MDRD (S/P/Bld) [Vol rate/Area] 48 mL/min/{1.73_m2} Low >60 [facility] Comment on above: Result Comment: Non- GFR Calc Performed By: #### L 100.0100, L500.2500 #### [facility] [address] [place], [address] Glucose [Mass/Vol] 187 mg/dL High 74-106 [facility] Comment on above: Result Comment: Fast ing Glucose result greater than or equal to 126 mg/dL suggests DIABETES MELLITUS per A.D.A. criteria. Performed By: #### L 100.0100, L500.2500 #### [facility] [address] [place], [address] Potassium [Moles/Vol] 4.4 mmol/L Normal 3.5-5.1 [facility] Comment on above: Performed By: #### L 100.0100, L500.2500 #### [facility] [address] [place], [address] Sodium [Moles/Vol] 140 mmol/L Normal 136-145 [facility] Comment on above: Performed By: #### L 100.0100, L500.2500 #### [facility] [address] [place], [address] Urea nitrogen [Mass/Vol] 18 mg/dL Normal 7-18 [facility] Comment on above: Performed By: #### L 100.0100, L500.2500 #### [facility] [address] [place], [address] Bedside Glucoseon 05-11-2024 FINGERSTICK GLU 144 mg/dL High 74-106 [facility] Comment on above: Result Comment: ANKUSH GEMENT OF PATIENT CARE PER NURSING PROTOCOL Performed By: #### L 100.0100, L500.2500 #### [facility] [address] [place], [address] FINGERSTICK GLU 119 mg/dL High 74-106 [facility] Comment on above: Result Comment: ANKUSH GEMENT OF PATIENT CARE PER NURSING PROTOCOL Performed By: #### L 501.080 #### [facility] [address] [place], [address] FINGERSTICK GLU 173 mg/dL High 74-106 [facility] Comment on above: Result Comment: ANKUSH GEMENT OF PATIENT CARE PER NURSING PROTOCOL Performed By: #### L 501.080 #### [facility] [address] [place], [address] FINGERSTICK GLU 100 mg/dL Normal 74-106 [facility] Comment on above: Result Comment: ANKUSH GEMENT OF PATIENT CARE PER NURSING PROTOCOL Performed By: #### L 100.0100, L500.2500 #### [facility] [address] [place], [address] CBC W/Diff, Automatedon 02-0 Absolute Lymph 1.36 X10 3/uL Normal 0.83-4.51 [facility] Comment on above: Performed By: #### L 100.0100, L500.2500 #### [facility] [address] [place], [address] Absolute Neut 4.8 X10 3/uL Normal 2.0-7.7 [facility] Comment on above: Performed By: #### L 100.0100, L500.2500 #### [facility] [address] [place], [address] Basophils/100 WBC (Bld) 0.8 % Normal 0-1 [facility] Comment on above: Performed By: #### L 100.0100, L500.2500 #### [facility] [address] [place], [address] Eosinophils/100 WBC (Bld) 6.3 % High 0-5 [facility] Comment on above: Performed By: #### L 100.0100, L500.2500 #### [facility] [address] [place], [address] Erythrocyte distribution width (RBC) [Ratio] 15.5 % High 11.6-14.6 [facility] Comment on above: Performed By: #### L 100.0100, L500.2500 #### [facility] [address] [place], [address] Hematocrit (Bld) [Volume fraction] 37.3 % Normal 37-47 [facility] Comment on above: Performed By: #### L 100.0100, L500.2500 #### [facility] [address] [place], [address] Hemoglobin (Bld) [Mass/Vol] 11.4 g/dL Low 12.0-15.0 [facility] Comment on above: Performed By: #### L 100.0100, L500.2500 #### [facility] [address] [place], [address] IG% 1.000 High 0.0-0.9 [facility] Comment on above: Result Comment: IG% - Immature Granulocytes (promyelocytes, myelocytes and metamyelocytes) > 1% indicates that a LEFT SHIFT is Present. Performed By: #### L 100.0100, L500.2500 #### [facility] [address] [place], [address] Lymphocytes/100 WBC (Bld) 18.9 % Low 19-41 [facility] Comment on above: Performed By: #### L 100.0100, L500.2500 #### [facility] [address] [place], [address] MCH (RBC) [Entitic mass] 26.6 pg Low 27.0-32.0 [facility] Comment on above: Performed By: #### L 100.0100, L500.2500 #### [facility] [address] [place], [address] MCHC (RBC) [Mass/Vol] 30.6 g/dL Low 32-36 [facility] Comment on above: Performed By: #### L 100.0100, L500.2500 #### [facility] [address] [place], [address] MCV (RBC) [Entitic vol] 86.9 fL Normal 81-99 [facility] Comment on above: Performed By: #### L 100.0100, L500.2500 #### [facility] [address] [place], [address] Monocytes/100 WBC (Bld) 6.1 % Normal 0-10 [facility] Comment on above: Performed By: #### L 100.0100, L500.2500 #### [facility] [address] [place], [address] Neutrophils/100 WBC (Bld) 66.9 % Normal 47-70 [facility] Comment on above: Performed By: #### L 100.0100, L500.2500 #### [facility] [address] [place], [address] Nucleated RBC (Bld) [#/Vol] 0 10*3/uL Normal 0-5 [facility] Comment on above: Performed By: #### L 100.0100, L500.2500 #### [facility] [address] [place], [address] Platelet mean volume (Bld) [Entitic vol] 10.4 fL Normal 6.2-12.0 [facility] Comment on above: Performed By: #### L 100.0100, L500.2500 #### [facility] [address] [place], [address] Platelets (Bld) [#/Vol] 260 10*3/uL Normal 150-450 [facility] Comment on above: Performed By: #### L 100.0100, L500.2500 #### [facility] [address] [place], [address] RBC (Bld) [#/Vol] 4.29 10*6/uL Normal 4.2-5.4 [facility] Comment on above: Performed By: #### L 100.0100, L500.2500 #### [facility] [address] [place], [address] RDW SD 49.2 fl High 35.1-43.9 [facility] Comment on above: Performed By: #### L 100.0100, L500.2500 #### [facility] [address] [place], [address] WBC (Bld) [#/Vol] 7.2 10*3/uL Normal 4.4-11.0 [facility] Comment on above: Performed By: #### L 100.0100, L500.2500 #### [facility] [address] [place], [address] Urine cultureOrdered By: Carmen Lance on 05-11-2024 Bacteria identified Cx Nom (U) Escherichia coli Abnormal [facility] Bedside Glucoseon 05-10-2024 FINGERSTICK GLU 114 mg/dL High 74-106 [facility] Comment on above: Result Comment: ANKUSH NESS OF PATIENT CARE PER NURSING PROTOCOL Performed By: #### L 100.0100, L500.2500 #### [facility] [address] [place], [address] FINGERSTICK GLU 107 mg/dL High 74-106 [facility] Comment on above: Result Comment: ANKUSH GEMENT OF PATIENT CARE PER NURSING PROTOCOL Performed By: #### L 100.0100, L500.2500 #### [facility] [address] [place], [address] FINGERSTICK GLU 127 mg/dL High 74-106 [facility] Comment on above: Result Comment: ANKUSH GEMENT OF PATIENT CARE PER NURSING PROTOCOL Performed By: #### L 100.0100, L500.2500 #### [facility] [address] [place], [address] FINGERSTICK GLU 84 mg/dL Normal 74-106 [facility] Comment on above: Result Comment: ANKUSH GEMENT OF PATIENT CARE PER NURSING PROTOCOL Performed By: #### L 100.0100, L500.2500 #### [facility] [address] [place], [address] Bedside Glucoseon 05-09-2024 FINGERSTICK GLU 116 mg/dL High 74-106 [facility] Comment on above: Result Comment: ANKUSH GEMENT OF PATIENT CARE PER NURSING PROTOCOL Performed By: #### L 100.0100, L500.2500 #### [facility] [address] [place], [address] FINGERSTICK GLU 95 mg/dL Normal 74-106 [facility] Comment on above: Result Comment: ANKUSH GEMENT OF PATIENT CARE PER NURSING PROTOCOL Performed By: #### L 100.0100, L500.2500 #### [facility] [address] [place], [address] FINGERSTICK GLU 147 mg/dL High 74-106 [facility] Comment on above: Result Comment: ANKUSH GEMENT OF PATIENT CARE PER NURSING PROTOCOL Performed By: #### L 100.0100, L500.2500 #### [facility] [address] [place], [address] FINGERSTICK GLU 92 mg/dL Normal 74-106 [facility] Comment on above: Result Comment: ANKUSH GEMENT OF PATIENT CARE PER NURSING PROTOCOL Performed By: #### L 100.0100, L500.2500 #### [facility] [address] [place], [address] Bedside Glucoseon 05-08-2024 FINGERSTICK GLU 96 mg/dL Normal 74-106 [facility] Comment on above: Result Comment: ANKUSH GEMENT OF PATIENT CARE PER NURSING PROTOCOL Performed By: #### L 501.080 #### [facility] [address] [place], [address] FINGERSTICK GLU 127 mg/dL High 74-106 [facility] Comment on above: Result Comment: ANKUSH GEMENT OF PATIENT CARE PER NURSING PROTOCOL Performed By: #### L 501.080 #### [facility] [address] [place], [address] FINGERSTICK GLU 104 mg/dL Normal 74-106 [facility] Comment on above: Result Comment: ANKUSH GEMENT OF PATIENT CARE PER NURSING PROTOCOL Performed By: #### L 501.080 #### [facility] [address] [place], [address] Basic Metabolic Profile (BMP )on 05-07-2024 BUN/CRE 12.5 RATIO Normal 10-20 [facility] Comment on above: Performed By: #### L 500.2500, L100.0500 #### [facility] [address] [place], [address] CA,Total 9.0 mg/dL Normal 8.5-10.1 [facility] Comment on above: Performed By: #### L 500.2500, L100.0500 #### [facility] [address] [place], [address] Chloride [Moles/Vol] 109 mmol/L High 98-107 [facility] Comment on above: Performed By: #### L 500.2500, L100.0500 #### [facility] [address] [place], [address] CO2 [Moles/Vol] 22.0 mmol/L Normal 21.0-32.0 [facility] Comment on above: Performed By: #### L 500.2500, L100.0500 #### [facility] [address] [place], [address] Creatinine [Mass/Vol] 2.48 mg/dL High 0.55-1.02 [facility] Comment on above: Result Comment: The validity of the calculated GFR GFRAA in patients over 70 years has not been determined. Clinical correlation is essential. Performed By: #### L 500.2500, L100.0500 #### [facility] [address] [place], [address] ECRCL 23.65 ml/min Normal [facility] Comment on above: Performed By: #### L 500.2500, L100.0500 #### [facility] [address] [place], [address] EST GFR - AA 25 mL/min Low >60 [facility] Comment on above: Result Comment: Afri can Angolan GFR Calc Performed By: #### L 500.2500, L100.0500 #### [facility] [address] [place], [address] GAP 8 Normal 5-15 [facility] Comment on above: Performed By: #### L 500.2500, L100.0500 #### [facility] [address] [place], [address] GFR/1.73 sq M.predicted among non-blacks MDRD (S/P/Bld) [Vol rate/Area] 21 mL/min/{1.73_m2} Low >60 [facility] Comment on above: Result Comment: Non- GFR Calc Performed By: #### L 500.2500, L100.0500 #### [facility] [address] [place], [address] Glucose [Mass/Vol] 101 mg/dL Normal 74-106 [facility] Comment on above: Result Comment: Fast ing Glucose result from 100 to 125 mg/dL suggests IMPAIRED HOMEOSTASIS per A.D.A. criteria. Performed By: #### L 500.2500, L100.0500 #### [facility] [address] [place], [address] Potassium [Moles/Vol] 3.8 mmol/L Normal 3.5-5.1 [facility] Comment on above: Performed By: #### L 500.2500, L100.0500 #### [facility] [address] [place], [address] Sodium [Moles/Vol] 139 mmol/L Normal 136-145 [facility] Comment on above: Performed By: #### L 500.2500, L100.0500 #### [facility] [address] [place], [address] Urea nitrogen [Mass/Vol] 31 mg/dL High 7-18 [facility] Comment on above: Performed By: #### L 500.2500, L100.0500 #### [facility] [address] [place], [address] Bedside Glucoseon 05-07-2024 FINGERSTICK GLU 115 mg/dL High 74-106 [facility] Comment on above: Result Comment: ANKUSH GEMENT OF PATIENT CARE PER NURSING PROTOCOL Performed By: #### L 501.080 #### [facility] [address] [place], [address] FINGERSTICK GLU 106 mg/dL Normal 74-106 [facility] Comment on above: Result Comment: ANKUSH GEMENT OF PATIENT CARE PER NURSING PROTOCOL Performed By: #### L 501.080 #### [facility] [address] [place], [address] FINGERSTICK GLU 111 mg/dL High 74-106 [facility] Comment on above: Result Comment: ANKUSH GEMENT OF PATIENT CARE PER NURSING PROTOCOL Performed By: #### L 100.0100, L500.2500 #### [facility] [address] [place], [address] FINGERSTICK GLU 100 mg/dL Normal 74-106 [facility] Comment on above: Result Comment: ANKUSH GEMENT OF PATIENT CARE PER NURSING PROTOCOL Performed By: #### L 501.080 #### [facility] [address] [place], [address] Bilirubin Test strip Ql (U)O rdered By: Davey Egan on 05-07-2024 Bilirubin Ql (U) 1 mg/dL High Negative [facility] Comment on above: COLOR OF URINE MAY A FFECT DIPSTICK RESULTS. CBC-Complete Blood Cnt No Di ffon 05-07-2024 Erythrocyte distribution width (RBC) [Ratio] 15.0 % High 11.6-14.6 [facility] Comment on above: Performed By: #### L 501.080 #### [facility] [address] [place], [address] Hematocrit (Bld) [Volume fraction] 38.1 % Normal 37-47 [facility] Comment on above: Performed By: #### L 501.080 #### [facility] [address] [place], [address] Hemoglobin (Bld) [Mass/Vol] 11.9 g/dL Low 12.0-15.0 [facility] Comment on above: Performed By: #### L 501.080 #### [facility] [address] [place], [address] MCH (RBC) [Entitic mass] 26.7 pg Low 27.0-32.0 [facility] Comment on above: Performed By: #### L 501.080 #### [facility] [address] [place], [address] MCHC (RBC) [Mass/Vol] 31.2 g/dL Low 32-36 [facility] Comment on above: Performed By: #### L 501.080 #### [facility] [address] [place], [address] MCV (RBC) [Entitic vol] 85.6 fL Normal 81-99 [facility] Comment on above: Performed By: #### L 501.080 #### [facility] [address] [place], [address] Platelet mean volume (Bld) [Entitic vol] 11.2 fL Normal 6.2-12.0 [facility] Comment on above: Performed By: #### L 501.080 #### [facility] [address] [place], [address] Platelets (Bld) [#/Vol] 237 10*3/uL Normal 150-450 [facility] Comment on above: Performed By: #### L 501.080 #### [facility] [address] [place], [address] RBC (Bld) [#/Vol] 4.45 10*6/uL Normal 4.2-5.4 [facility] Comment on above: Performed By: #### L 501.080 #### [facility] [address] [place], [address] RDW SD 47.1 fl High 35.1-43.9 [facility] Comment on above: Performed By: #### L 501.080 #### [facility] [address] [place], [address] WBC (Bld) [#/Vol] 9.0 10*3/uL Normal 4.4-11.0 [facility] Comment on above: Performed By: #### L 501.080 #### [facility] [address] [facility] [place], [place], [address] Hemoglobin A1con 05-07-2024 HbA1c (Bld) [Mass fraction] 5.7 % High 3.8-5.6 [facility] Comment on above: Result Comment: Norm al < 5.7 % Prediabetic 5.7 - 6.4 % Diabetic >or= 6.5 % Please note range changes. Performed By: #### L 100.0100, L500.2500 #### [facility] [address] [facility] [place], [place], [address] Hemoglobin A1c percentageOrd ered By: Claude Nayak on 05-07-2024 HbA1c (Bld) [Mass fraction] 5.7 % High 3.8-5.6 [facility] Comment on above: Normal < 5.7 % Predi abetic 5.7 - 6.4 % Diabetic >or= 6.5 % Please note range changes. Ketones Test strip Ql (U)Ord ered By: Davey Egan on 05-07-2024 Ketones Ql (U) Negative Negative [facility] Microscopic analysis of urin e for red blood cells (RBC)Ordered By: Davey Egan on 05-07-2024 Microscopic analysis of urine for red blood cells (RBC) 0-5 SEEN /hpf 0-5 [facility] Mucus LM Ql (Urine sed)Order ed By: Davey Egan on 05-07-2024 Mucus Ql (Urine sed) 1+ /hpf [facility] Nitrite Test strip Ql (U)Ord ered By: Davey Eagn on 05-07-2024 Nitrite Ql (U) Negative Negative [facility] Protein Test strip Ql (U)Ord ered By: Davey Egan on 05-07-2024 Protein Ql (U) 30 mg/dl High Negative [facility] Squamous epithelial cells de tection in urine sediment by light microscopyOrdered By: Davey Egan on 05-07-2024 Epithelial cells.squamous LM Ql (Urine sed) 0-5 SEEN /hpf 5-10 [facility] Transitional cells detection in urine sediment by light microscopyOrdered By: Davey Egan on 05-07-2024 Transitional cells LM Ql (Urine sed) 0-5 SEEN /hpf 0-5 [facility] Urinalysis, Completeon 05-07 BACTERIA 3+ /hpf Normal None Seen [facility] Comment on above: Order Comment: CLEAN CATCH Performed By: #### L 400.0001 #### [facility] [address] [place], [address] CAST,WBC 0-5 SEEN Normal None Seen [facility] Comment on above: Order Comment: CLEAN CATCH Performed By: #### L 400.0001 #### [facility] [address] [place], [address] EPI,RENAL 0-5 SEEN Normal 0-5 [facility] Comment on above: Order Comment: CLEAN CATCH Performed By: #### L 400.0001 #### [facility] [address] [place], [address] EPI,SQUAMOUS 0-5 SEEN Normal 5-10 [facility] Comment on above: Order Comment: CLEAN CATCH Performed By: #### L 400.0001 #### [facility] [address] [place], [address] EPI,TRANSITION 0-5 SEEN Normal 0-5 [facility] Comment on above: Order Comment: CLEAN CATCH Performed By: #### L 400.0001 #### [facility] [address] [place], [address] Mucus Ql (Urine sed) 1+ /hpf Normal [facility] Comment on above: Order Comment: CLEAN CATCH Performed By: #### L 400.0001 #### [facility] [address] [place], [address] RBC 0-5 SEEN Normal 0-5 [facility] Comment on above: Order Comment: CLEAN CATCH Performed By: #### L 400.0001 #### [facility] [address] [place], [address] WBC 50-100 SEEN Normal 0-5 [facility] Comment on above: Order Comment: CLEAN CATCH Performed By: #### L 400.0001 #### [facility] [address] [place], [address] Urine clarityOrdered By: Ramon Egan on 05-07-2024 Clarity (U) Cloudy Clear [facility] Urine color determinationOrd ered By: Davey Egan on 05-07-2024 Color (U) Yellow Yellow [facility] Urine glucose detectionOrder ed By: Davey Egan on 05-07-2024 Glucose Ql (U) 250 mg/dl High Normal [facility] Urine leukocyte esterase det ection by dipstickOrdered By: Davey Egan on 05-07-2024 Leukocyte esterase Test strip Ql (U) 500 /ul High Negative [facility] Urine pHOrdered By: Davey gabriel on 05-07-2024 pH (U) 6.0 [pH] 5.0 - 8.0 [facility] Urine sediment bacteria coun t by microscopy (number/high power field)Ordered By: Davey Egan on 05-07-2024 Bacteria LM.HPF (Urine sed) [#/Area] 3 /[HPF] None Seen [facility] Urine sediment leukocyte ap t count by microscopy (number/low power field)Ordered By: Davey Egan on 05-07-2024 WBC casts LM.LPF (Urine sed) [#/Area] 0-5 SEEN /lpf None Seen [facility] Urine sediment renal epithel ial cell count by microscopy (number/high power field)Ordered By: Davey Egan on 05-07-2024 Epithelial cells.renal LM.HPF (Urine sed) [#/Area] 0 /[HPF] 0-5 [facility] Urine specific gravity measu rementOrdered By: Davey Egan on 05-07-2024 Specific gravity (U) [Rel density] 1.015 1.002-1.03 0 [facility] Urine urobilinogen measureme ntOrdered By: Davey Egan on 05-07-2024 Urobilinogen Ql (U) 1 mg/dl High Normal [facility] White blood cell countOrdere d By: Davey Egan on 05-07-2024 White blood cell count 50-100 SEEN /hpf 0-5 [facility] 12 Lead EKGon 05-06-2024 12 Lead EKG [facility] Cardiovascular Services [address] [place] [address] 12 Lead EKG 05/06/24 1545 MR#: [id number] Acct: [id number] Name: CORINNA CARR Rep #: [id number] : [id number] 69 From: Zena Land MD Attending Dr: Dr. Randall Osborne DO Status: A DM TAMIR Ordering Dr: Davey Egan DO Date: 05/06/24 Location: [facility] Sex: F C Admitted: 05/06/24 Test Reason : SYNCOPE Blood Pressure : */* mmHG Vent. Rate : 74 BPM Atrial Rate : 74 BPM P-R Int : 246 ms QRS Dur : 128 ms QT Int : 434 ms P-R-T Axes : 70 -16 24 degrees QTcB Int : 481 ms Sinus rhythm with 1st degree A-V block Right bundle branch block Abnormal ECG Confirmed by RALPH YIN, CARLYLE ([id number]), multimedia editor ILDA FLORES ([id number]) on 05/07/2024 1:24:39 PM Referred By: Confirmed By: CARLYLE LAND MD 05/07/24 1324 Date Zena Land MD CC: MICKY Erazo; Dr. Davey Egan DO; Dr. Randall Osborne DO Signed Normal [facility] Ankle min 3 Viewson 05-06-19 25 Ankle min 3 Views [facility] Imaging Services [address] [address] Ankle min 3 Views MR#: [id number] Acct: [id number] Name: CORINNA CARR Rep #: [id number] : 1955 69 From: Lavelle Rcik MD PCP: MICKY Guaman Status: REG ER Study: Ankle min 3 Views Date of Exam: 05/06/24 Exam# [id number] Ordering Dr: Davey Egan DO PROCEDURE: ANKLE MIN 3 VIEWS REASON FOR EXAM: Injury TECHNIQUE: 3 views of the left ankle COMPARISON: None FINDINGS: No visible fracture. No suspicious bone lesion. Normal alignment. Mortise appears intact. No effusion. Soft tissues are unremarkable. Dorsal and plantar calcaneal spurs RAD/Ankle min 3 Views IMPRESSION: Degenerative changes with no acute osseous abnormality. Reading Location: [facility] CC: SHOW HOST OR HOSTESS-C Yoko Erazo; Dr. Davey Egan DO Hose Suspender Cutter: Signed Normal [facility] Ankle min 3 Views [facility] [address] [place] [id number] Ankle min 3 Views MR#: [id number] Acct: [id number] Name: CORINNA CARR Rep #: [id number] : 1955 F 69 From: Bryan Tuttle PCP: MICKY Guaman Status: REG ER Study: Ankle min 3 Views Date of Exam: 05/06/24 Exam# [id number] Ordering Dr: Davey Egan DO PROCEDURE: ANKLE MIN 3 VIEWS REASON FOR EXAM: Injury. TECHNIQUE: 3 views of the right ankle COMPARISON: None. RAD/Ankle min 3 Views IMPRESSION: On the lateral view, an ankle joint effusion is noted. Normal contour of the Achilles tendon is seen. Mild posterior and at least moderate inferior calcaneal spurring is seen. A minimally displaced intra-articular FRACTURE of the distal right fibula is seen involving portions of the lateral malleolus. No tibial fracture is identified at this time. Reading Location: [id number] CC: SHOW HOST OR HOSTESS-C Yoko Erazo; Dr. Davey Egan, DO Hose Suspender Cutter: Signed Normal [facility] BNP (brain natriuretic pepti de measurement)Ordered By: Davey Egan on 05-06-2024 Natriuretic peptide B (Bld) [Mass/Vol] 16.4 pg/mL 0-100 [facility] BNP,B-Type NATRIURETIC PEPTI Cristhian 05-06-2024 Natriuretic peptide B (Bld) [Mass/Vol] 16.4 pg/mL Normal 0-100 [facility] Comment on above: Performed By: #### L 100.0100, L500.2500 #### [facility] [address] [place], [address] Basic Metabolic Profile (BMP )on 05-06-2024 BUN/CRE 12.8 RATIO Normal 10-20 [facility] Comment on above: Order Comment: 'TROP ' Serial specimen #1, #2 or #3: 1 Performed By: #### L 501.080 #### [facility] [address] [place], [address] CA,Total 8.8 mg/dL Normal 8.5-10.1 [facility] Comment on above: Order Comment: 'TROP ' Serial specimen #1, #2 or #3: 1 Performed By: #### L 501.080 #### [facility] [address] [place], [address] Chloride [Moles/Vol] 107 mmol/L Normal 98-107 [facility] Comment on above: Order Comment: 'TROP ' Serial specimen #1, #2 or #3: 1 Performed By: #### L 501.080 #### [facility] [address] [place], [address] CO2 [Moles/Vol] 22.0 mmol/L Normal 21.0-32.0 [facility] Comment on above: Order Comment: 'TROP ' Serial specimen #1, #2 or #3: 1 Performed By: #### L 501.080 #### [facility] [address] [place], [address] Creatinine [Mass/Vol] 2.03 mg/dL High 0.55-1.02 [facility] Comment on above: Order Comment: 'TROP ' Serial specimen #1, #2 or #3: 1 Result Comment: The validity of the calculated GFR GFRAA in patients over 70 years has not been determined. Clinical correlation is essential. Performed By: #### L 501.080 #### [facility] [address] [place], [address] ECRCL 28.27 ml/min Normal [facility] Comment on above: Order Comment: 'TROP ' Serial specimen #1, #2 or #3: 1 Performed By: #### L 501.080 #### [facility] [address] [place], [address] EST GFR - AA 31 mL/min Low >60 [facility] Comment on above: Order Comment: 'TROP ' Serial specimen #1, #2 or #3: 1 Result Comment: Afri can Angolan GFR Calc Performed By: #### L 501.080 #### [facility] [address] [place], [address] GAP 10 Normal 5-15 [facility] Comment on above: Order Comment: 'TROP ' Serial specimen #1, #2 or #3: 1 Performed By: #### L 501.080 #### [facility] [address] [place], [address] GFR/1.73 sq M.predicted among non-blacks MDRD (S/P/Bld) [Vol rate/Area] 26 mL/min/{1.73_m2} Low >60 [facility] Comment on above: Order Comment: 'TROP ' Serial specimen #1, #2 or #3: 1 Result Comment: Non- GFR Calc Performed By: #### L 501.080 #### [facility] [address] [place], [address] Glucose [Mass/Vol] 147 mg/dL High 74-106 [facility] Comment on above: Order Comment: 'TROP ' Serial specimen #1, #2 or #3: 1 Result Comment: Fast ing Glucose result greater than or equal to 126 mg/dL suggests DIABETES MELLITUS per A.D.A. criteria. Performed By: #### L 501.080 #### [facility] [address] [place], [address] Potassium [Moles/Vol] 3.8 mmol/L Normal 3.5-5.1 [facility] Comment on above: Order Comment: 'TROP ' Serial specimen #1, #2 or #3: 1 Performed By: #### L 501.080 #### [facility] [address] [place], [address] Sodium [Moles/Vol] 139 mmol/L Normal 136-145 [facility] Comment on above: Order Comment: 'TROP ' Serial specimen #1, #2 or #3: 1 Performed By: #### L 501.080 #### [facility] [address] [place], [address] Urea nitrogen [Mass/Vol] 26 mg/dL High 7-18 [facility] Comment on above: Order Comment: 'TROP ' Serial specimen #1, #2 or #3: 1 Performed By: #### L 501.080 #### [facility] [address] [place], [address] Bedside Glucoseon 05-06-2024 FINGERSTICK GLU 118 mg/dL High 74-106 [facility] Comment on above: Result Comment: ANKUSH NESS OF PATIENT CARE PER NURSING PROTOCOL Performed By: #### L 100.0100, L500.2500 #### [facility] [address] [place], [address] Bilirubin directOrdered By: Davey Egan on 05-06-2024 Bilirubin.direct [Mass/Vol] 0.18 mg/dL 0.00-0.30 [facility] Bilirubin, totalOrdered By: Davey Egan on 05-06-2024 Bilirubin [Mass/Vol] 0.50 mg/dL 0.20-1.00 [facility] Comment on above: For patients on eltr ombopag therapy, use of Dimension [place] TBIL is not recommended. CBC W/Diff, Automatedon 04-09 Absolute Lymph 1.44 X10 3/uL Normal 0.83-4.51 [facility] Comment on above: Performed By: #### L 501.080 #### [facility] [address] [place], [address] Absolute Neut 7.6 X10 3/uL Normal 2.0-7.7 [facility] Comment on above: Performed By: #### L 501.080 #### [facility] [address] [place], [address] Basophils/100 WBC (Bld) 0.5 % Normal 0-1 [facility] Comment on above: Performed By: #### L 501.080 #### [facility] [address] [place], [address] Eosinophils/100 WBC (Bld) 2.6 % Normal 0-5 [facility] Comment on above: Performed By: #### L 501.080 #### [facility] [address] [place], [address] Erythrocyte distribution width (RBC) [Ratio] 14.8 % High 11.6-14.6 [facility] Comment on above: Performed By: #### L 501.080 #### [facility] [address] [place], [address] Hematocrit (Bld) [Volume fraction] 39.1 % Normal 37-47 [facility] Comment on above: Performed By: #### L 501.080 #### [facility] [address] [place], [address] Hemoglobin (Bld) [Mass/Vol] 12.0 g/dL Normal 12.0-15.0 [facility] Comment on above: Performed By: #### L 501.080 #### [facility] [address] [place], [address] IG% 0.800 Normal 0.0-0.9 [facility] Comment on above: Result Comment: IG% - Immature Granulocytes (promyelocytes, myelocytes and metamyelocytes) > 1% indicates that a LEFT SHIFT is Present. Performed By: #### L 501.080 #### [facility] [address] [place], [address] Lymphocytes/100 WBC (Bld) 14.3 % Low 19-41 [facility] Comment on above: Performed By: #### L 501.080 #### [facility] [address] [place], [address] MCH (RBC) [Entitic mass] 26.5 pg Low 27.0-32.0 [facility] Comment on above: Performed By: #### L 501.080 #### [facility] [address] [place], [address] MCHC (RBC) [Mass/Vol] 30.7 g/dL Low 32-36 [facility] Comment on above: Performed By: #### L 501.080 #### [facility] [address] [place], [address] MCV (RBC) [Entitic vol] 86.5 fL Normal 81-99 [facility] Comment on above: Performed By: #### L 501.080 #### [facility] [address] [place], [address] Monocytes/100 WBC (Bld) 6.4 % Normal 0-10 [facility] Comment on above: Performed By: #### L 501.080 #### [facility] [address] [place], [address] Neutrophils/100 WBC (Bld) 75.4 % High 47-70 [facility] Comment on above: Performed By: #### L 501.080 #### [facility] [address] [place], [address] Nucleated RBC (Bld) [#/Vol] 0 10*3/uL Normal 0-5 [facility] Comment on above: Performed By: #### L 501.080 #### [facility] [address] [place], [address] Platelet mean volume (Bld) [Entitic vol] 10.5 fL Normal 6.2-12.0 [facility] Comment on above: Performed By: #### L 501.080 #### [facility] [address] [place], [address] Platelets (Bld) [#/Vol] 224 10*3/uL Normal 150-450 [facility] Comment on above: Performed By: #### L 501.080 #### [facility] [address] [place], [address] RBC (Bld) [#/Vol] 4.52 10*6/uL Normal 4.2-5.4 [facility] Comment on above: Performed By: #### L 501.080 #### [facility] [address] [place], [address] RDW SD 47.2 fl High 35.1-43.9 [facility] Comment on above: Performed By: #### L 501.080 #### [facility] [address] [place], [address] WBC (Bld) [#/Vol] 10.1 10*3/uL Normal 4.4-11.0 [facility] Comment on above: Performed By: #### L 501.080 #### [facility] [address] [place], [address] Chest 1 View (Portable)on Chest 1 View (Portable) [facility] Imaging Services [address] [place] [address] Chest 1 View (Portable) MR#: [id number] Acct: [id number] Name: CORINNA CARR Rep #: [id number] : 1955 F 69 From: Lavelle Rick MD PCP: MICKY Guaman Status: REG ER Study: Chest 1 View (Portable) Date of Exam: 05/06/24 Exam# [id number] Ordering Dr: Davey Egan DO PROCEDURE: CHEST 1 VIEW (PORTABLE) TECHNIQUE: Frontal and lateral views of the chest. COMPARISON: None. FINDINGS: The heart size is normal. The mediastinal contour is unremarkable. The lungs are clear. The bones are unremarkable. RAD/Chest 1 View (Portable) IMPRESSION: No radiographic evidence of acute cardiopulmonary disease Reading Location: [facility] CC: SHOW HOST OR HOSTESS-C Yoko Erazo; Dr. Davey Egan DO Hose Suspender Cutter: Signed Normal [facility] Emergency Department Summary on 05-06-2024 Emergency Department Summary [facility] Medical Records Department [address] [place] [address] Emergency Department Summary 05/06/24 MR#: [id number] Acct: [id number] Name: CORINNA CARR Rep #: [id number] : 1955 69 From: Davey Egan DO PCP: MICKY Guaman Status:ADM TAMIR Location: [place] [address] HPI HPI - Fall History of Present Illness Chief Complaint: Fall Informant: patient and family Narrative Narrative: 69-year-old female presenting to the emergency room with falls. Patient notes over the past month she has been experiencing progressively worsening episodes where she gets weak like she is going to pass out but typically can make it to a chair. This morning however she fell twice. She believes she lost consciousness for just a second. During the fall she notes an injury to the right lower ankle but states both knees hurt below the knees down. She notes that she was transition to Wellbutrin about a month and a half ago. Family notes about a 20 pound weight loss with the past couple months. She states that she has been eating and drinking. She has been urinating and defecating without difficulty. Family made an appointment with primary care for today but did not make it because of the episodes today. Preceding the falls she feels lightheaded but is not experiencing sweating nausea chest pain palpitations or shortness of breath. [facility] Medical History History of wrist fracture Wears glasses Wears dentures Ambulates with cane Low iron Restless legs Seizures Gastric reflux Leg cramps History of echocardiogram Diastolic dysfunction Peripheral neuropathy DDD (degenerative disc disease) Anxiety Esophagitis GI bleed Right bundle branch block Osteoarthritis Depression Anemia Fibromyalgia Rheumatoid arteritis Obesity, morbid, BMI 40.0-49.9 Lupus Hyperlipidemia Diabetes mellitus, type II Home Medications ???Medication ???Instructions ???Recorded ???Last Taken ???Type bupropion HCl 150 mg 24 hr tablet, 150 mg PO DAILY depression 04/17/19 06/10/20 History extended release fluoxetine 20 mg capsule 60 mg PO DAILY mood 04/17/19 06/10/20 History gabapentin 300 mg capsule 300 mg PO TID nerve pain 04/17/19 06/10/20 History hydroxychloroquine 200 mg tablet 200 mg PO DAILYCM arthritis 04/17/19 06/10/20 History metformin 500 mg tablet,extended 500 mg PO BIDCM dm 04/17/19 06/10/20 History release 24 hr omeprazole 40 mg capsule,delayed 40 mg PO DAILY gerd 04/17/19 06/10/20 History release pravastatin 20 mg tablet 20 mg PO QHS cholesterol 04/17/19 06/10/20 History oxycodone myristate 18 mg capsule 18 mg PO BID pain 06/01/20 06/10/20 History sprinkle extended release 12hr(DON'T CRUSH) sucralfate 1 gram tablet 1 gm PO BID upset stomach 06/01/20 06/10/20 History furosemide 20 mg tablet 40 mg PO BID water pill 06/10/20 06/10/20 History insulin glargine 100 unit/mL (3 40 unit (0.4 mL) SQ QHS dm ##1 06/12/20 Unknown Rx mL) subcutaneous pen acetaminophen 325 mg tablet 650 mg (2 x 325 mg) PO Q6H PRN PRN 11/05/20 Unknown Rx (Tylenol) Pain Score 1-10/Temp > 100.7 F #0 tabs ibuprofen 400 mg tablet 400 mg PO Q4H PRN PRN Pain Score 11/05/20 Unknown Rx 1-10/Temp > 100.7 F #0 tabs Allergy/AdvReac Type Severity Reaction Status Date / Time No Known Allergies Allergy Verified 05/06/24 14:49 Family History Father Cancer Mother Hypertension Surgical History History of total knee replacement H/O repair of right rotator cuff S/P insertion of spinal cord stimulator Hx of cholecystectomy History of lumbar fusion History of open reduction and internal fixation (ORIF) procedure History of tubal ligation History of carpal tunnel surgery History of left heart catheterization (08/01/07) Social History Smoking Status: Former smoker ROS ROS ED ROS Narrative Intermittent episodes of weakness Constitutional Constitutional ED: Reports weight loss; Denies chills Eyes Eyes: Denies change in vision or diplopia ENT ENT ED: Denies ear pain, rhinorrhea or sore throat Cardiovascular Cardiovascular: Reports other Details: Syncope ; Denies chest pain, orthopnea, palpitations or racing heartbeat Respiratory/Chest Respiratory/Chest: Denies cough, dyspnea or orthopnea Gastrointestinal Gastrointestinal: Denies abdominal pain, diarrhea, nausea or vomiting Genitourinary Genitourinary ED: Denies dysuria, hematuria or urinary frequency Musculoskeletal Musculoskeletal: Reports other Details: Bilateral leg pain right ankle worse with swelling ; Denies arthralgias or myalgias Integumentary Reports other Det (more content not included)... Normal [facility] H AND P Exam - Hospitaliston 05-06-2024 H&P Exam - Hospitalist [facility] Medical Records Department [address] [place] [address] H P Exam - Hospitalist 05/06/24 1727 MR#: [id number] Acct: [id number] Name: CORINNA CARR Rep #: [id number] : 1955 69 From: Claude Nayak DO PCP: MICKY Guaman Status:ADM TAMIR Location: [place] [address] HPI - General General Date of Admission: 05/06/24 Date of Service: 05/06/24 Chief Complaint: Presyncopal symptoms with falls and right ankle pain HPI Narrative CORINNA CARR, is a 69 F who presented to [facility] ED on 05/06/2024 with presyncopal symptoms with falls at home and right ankle pain. Patient lives at home with her mother who is 90 years old. Patient has some difficulty with ambulation but is typically able to care for herself without significant issue. Her history is significant for HFpEF, chronic back pain and depression. She has been on the same medications for heart failure for the past few years. She was started on low-dose sertraline and Wellbutrin by her psychiatrist about 3 months ago. She was also started on tramadol for chronic back pain in December. Patient does not check her blood pressures at home. Notes that she has felt some lightheadedness and dizziness especially with going from sitting to standing over the past few months now. However, today was the first time she had a fall associated with this. Her daughter was there to witness this event and saw the patient become quite pale prior to the fall. Did not appear to have a true syncopal event. In the ED patient was borderline hypotensive but otherwise hemodynamically stable on room air. Labs notable for creatinine 2.03 (baseline unclear), BUN 26. Right ankle x-ray showed a minimally displaced intra-articular fracture of the right distal fibula along with an ankle joint effusion. Given these findings, hospitalist was contacted for admission. I saw the patient at bedside in the ED, daughter was present. Patient was mildly fatigued. But otherwise sitting up comfortably in bed, conversing normally, in no acute distress. Her right foot was in a walking boot up to the mid heller. Patient denied any right foot or ankle pain at rest currently. Denied any other pain or discomfort. She and daughter are concerned about going home given that she does not have help at home and has been having frequent presyncopal symptoms. Will be admitted for further management. [facility] Medical History History of wrist fracture Wears glasses Wears dentures Ambulates with cane Low iron Restless legs Seizures Gastric reflux Leg cramps History of echocardiogram Diastolic dysfunction Peripheral neuropathy DDD (degenerative disc disease) Anxiety Esophagitis GI bleed Right bundle branch block Osteoarthritis Depression Anemia Fibromyalgia Rheumatoid arteritis Obesity, morbid, BMI 40.0-49.9 Lupus Hyperlipidemia Diabetes mellitus, type II Home Medications ???Medication ???Instructions ???Recorded ???Last Taken ???Type bupropion HCl 150 mg 24 hr tablet, 150 mg PO DAILY depression 04/17/19 06/10/20 History extended release gabapentin 300 mg capsule 300 mg PO BID nerve pain 04/17/19 06/10/20 History hydroxychloroquine 200 mg tablet 200 mg PO DAILY arthritis 04/17/19 06/10/20 History metformin 500 mg tablet,extended 500 mg PO BID dm 04/17/19 06/10/20 History release 24 hr omeprazole 40 mg capsule,delayed 40 mg PO DAILY gerd 04/17/19 06/10/20 History release pravastatin 20 mg tablet 20 mg PO QHS cholesterol 04/17/19 06/10/20 History sucralfate 1 gram tablet 1 g PO TID upset stomach 06/01/20 06/10/20 History furosemide 20 mg tablet 20 mg PO DAILY water pill 06/10/20 06/10/20 History cholecalciferol (vitamin D3) 1,250 1,250 mcg PO QWEEK 05/06/24 Unknown History mcg (50,000 unit) capsule dulaglutide 3 mg/0.5 mL 3 mg subcut QWEEK 05/06/24 Unknown History subcutaneous pen injector (Trulicity) empagliflozin 10 mg tablet 10 mg PO DAILY 05/06/24 Unknown History (Jardiance) gabapentin 300 mg capsule 600 mg PO QHS 05/06/24 Unknown History hydroxyzine HCl 25 mg tablet 25 mg PO TID PRN PRN anxiety 05/06/24 Unknown History potassium chloride 10 mEq 10 meq PO DAILY 05/06/24 Unknown History tablet,extended release sertraline 25 mg tablet 12.5 mg PO DAILY 05/06/24 Unknown History tramadol 50 mg tablet 50 mg PO TID PRN pain 05/06/24 Unknown History Allergy/AdvReac Type Severity Reaction Status Date / Time No Known Allergies Allergy Verified 05/06/24 14:49 Family History Father Cancer Mother Hypertension Surgical History History of total knee replacement H/O repair of right rotator cuff S/P insertion of spinal (more content not included)... Normal [facility] L501.4020on 05-06-2024 TROPONIN-I HS 6 pg/mL Normal 3.0-54.0 [facility] Comment on above: Order Comment: 'TROP ' Serial specimen #1, #2 or #3: 1 Result Comment: Carmita armenta Note: New Test Units and Gender Specific Reference Ranges. For more information see Policy Stat Procedure [place] High Sensitivity Troponin (TNIH) and attachments. Performed By: #### L 501.080 #### [facility] [address] [place], [address] Laboratory - Chemistry and C hemistry - challengeOrdered By: Davey Egan on 05-06-2024 AST [Catalytic activity/Vol] 25 U/L 15-37 [facility] Liver Profileon 05-06-2024 Albumin [Mass/Vol] 2.9 g/dL Low 3.2-5.0 [facility] Comment on above: Order Comment: 'TROP ' Serial specimen #1, #2 or #3: 1 Performed By: #### L 501.080 #### [facility] [address] [place], [address] ALK P 128 U/L High 45-117 [facility] Comment on above: Order Comment: 'TROP ' Serial specimen #1, #2 or #3: 1 Performed By: #### L 501.080 #### [facility] [address] [place], [address] ALT [Catalytic activity/Vol] 25 U/L Normal 13-56 [facility] Comment on above: Order Comment: 'TROP ' Serial specimen #1, #2 or #3: 1 Performed By: #### L 501.080 #### [facility] [address] [place], [address] AST [Catalytic activity/Vol] 25 U/L Normal 15-37 [facility] Comment on above: Order Comment: 'TROP ' Serial specimen #1, #2 or #3: 1 Performed By: #### L 501.080 #### [facility] [address] [place], [address] Bilirubin [Mass/Vol] 0.50 mg/dL Normal 0.20-1.00 [facility] Comment on above: Order Comment: 'TROP ' Serial specimen #1, #2 or #3: 1 Result Comment: For patients on eltrombopag therapy, use of Dimension [place] TBIL is not recommended. Performed By: #### L 501.080 #### [facility] [address] [place], [address] Bilirubin.direct [Mass/Vol] 0.18 mg/dL Normal 0.00-0.30 [facility] Comment on above: Order Comment: 'TROP ' Serial specimen #1, #2 or #3: 1 Performed By: #### L 501.080 #### [facility] [address] [place], [address] Globulin (S) [Mass/Vol] 3.1 g/dL Normal 2.2-4.2 [facility] Comment on above: Order Comment: 'TROP ' Serial specimen #1, #2 or #3: 1 Performed By: #### L 501.080 #### [facility] [address] [place], [address] T PROT 6.0 g/dL Low 6.4-8.2 [facility] Comment on above: Order Comment: 'TROP ' Serial specimen #1, #2 or #3: 1 Performed By: #### L 501.080 #### [facility] [address] [place], [place], [address] Magnesiumon 05-06-2024 Magnesium [Mass/Vol] 1.7 mg/dL Normal 1.6-2.6 [facility] Comment on above: Order Comment: 'TROP ' Serial specimen #1, #2 or #3: 1 Performed By: #### L 501.080 #### [facility] [address] [place], [place], [address] Magnesium measurementOrdered By: Davey Egan on 05-06-2024 Magnesium [Mass/Vol] 1.7 mg/dL 1.6-2.6 [facility] Serum globulin measurementOr dered By: Davey Egan on 05-06-2024 Globulin (S) [Mass/Vol] 3.1 g/dL 2.2-4.2 [facility] Serum or plasma alanine bhagat otransferase (ALT) measurementOrdered By: Davey Egan on 05-06-2024 ALT [Catalytic activity/Vol] 25 U/L 13-56 [facility] Serum or plasma albumin luna urement (mass/volume)Ordered By: Davey Egan on 05-06-2024 Albumin [Mass/Vol] 2.9 g/dL Low 3.2-5.0 [facility] Serum or plasma alkaline nile sphatase measurementOrdered By: Davey Egan on 05-06-2024 ALP [Catalytic activity/Vol] 128 U/L High 45-117 [facility] Total proteinOrdered By: Ramon Egan on 05-06-2024 Protein [Mass/Vol] 6.0 g/dL Low 6.4-8.2 [facility] Troponin IOrdered By: Davey Egan on 05-06-2024 Troponin I 6 pg/mL 3.0-54.0 [facility] Comment on above: Please Note: New Rachell t Units and Gender Specific Reference Ranges. For more information see Policy Stat Procedure [place] High Sensitivity Troponin (TNIH) and attachments. CBC W Auto Differential pane l (Bld)on 03-17-2024 Basophils (Bld) [#/Vol] 0.05 10*3/uL Normal <0.11 [facility] Comment on above: Order Comment: Speci men Type: BLOOD SPECIMENOrdering Facility: [facility] Address: [address] [place] [address] Performed By: #### 5 7021-8 ####[facility]ITALELIZABETHLIA [id number] [place] [address] [place] Basophils/100 WBC (Bld) 0.5 % Normal [facility] Comment on above: Order Comment: Speci men Type: BLOOD SPECIMENOrdering Facility: [facility] Address: [address] [place] [address] Performed By: #### 5 7021-8 ####[facility] [id number] [place] [address] [place] Differential cell count method Nom (Bld) Auto Normal [facility] Comment on above: Order Comment: Speci men Type: BLOOD SPECIMENOrdering Facility: [facility] Address: [address] [place] [address] Performed By: #### 5 7021-8 ####[facility] [id number] [place] [address] [place] Eosinophils (Bld) [#/Vol] 0.24 10*3/uL Normal <0.46 [facility] Comment on above: Order Comment: Speci men Type: BLOOD SPECIMENOrdering Facility: [facility] Address: [address] [place] [address] Performed By: #### 5 7021-8 ####[facility]ITALNCLIA [id number] [place] [address] [place] Eosinophils/100 WBC (Bld) 2.2 % Normal [facility] Comment on above: Order Comment: Speci men Type: BLOOD SPECIMENOrdering Facility: [facility] Address: [address] [place] [address] Performed By: #### 5 7021-8 ####[facility] DEDRAWELIZABETHLIA [id number] [place] [address] [place] Erythrocyte distribution width (RBC) [Ratio] 14.6 % Normal 11.5-15.0 [facility] Comment on above: Order Comment: Speci men Type: BLOOD SPECIMENOrdering Facility: [facility] Address: [address] [place] [address] Performed By: #### 5 7021-8 ####[facility]ITALELIZABETHLIA [id number] [place] [address] [place] Hematocrit (Bld) [Volume fraction] 44.0 % Normal 36.0-46.0 [facility] Comment on above: Order Comment: Speci men Type: BLOOD SPECIMENOrdering Facility: [facility] Address: [address] [place] [address] Performed By: #### 5 7021-8 ####[facility]REA [id number] [place] [address] [place] Hemoglobin (Bld) [Mass/Vol] 13.4 g/dL Normal 11.5-15.5 [facility] Comment on above: Order Comment: Speci men Type: BLOOD SPECIMENOrdering Facility: [facility] Address: [address] [place] [address] Performed By: #### 5 7021-8 ####[facility]ITALELIZABETHLIA [id number] [place] [address] [place] Immature granulocytes (Bld) [#/Vol] 0.05 10*3/uL Normal <0.10 [facility] Comment on above: Order Comment: Speci men Type: BLOOD SPECIMENOrdering Facility: [facility] Address: [address] [place] [address] Performed By: #### 5 7021-8 ####[facility]ITALNCSAL [id number] [place] [id number] [place] Immature granulocytes/100 WBC (Bld) 0.5 % Normal [facility] Comment on above: Order Comment: Speci men Type: BLOOD SPECIMENOrdering Facility: [facility] Address: [address] [place] [address] Performed By: #### 5 7021-8 ####[facility]ITALNCLIA [id number] [place] [address] [place] Lymphocytes (Bld) [#/Vol] 1.36 10*3/uL Normal 1.00-4.00 [facility] Comment on above: Order Comment: Speci men Type: BLOOD SPECIMENOrdering Facility: [facility] Address: [address] [place] [address] Performed By: #### 5 7021-8 ####[facility] [id number] [place] [address] [place] Lymphocytes/100 WBC (Bld) 12.7 % Normal [facility] Comment on above: Order Comment: Speci men Type: BLOOD SPECIMENOrdering Facility: [facility] Address: [address] [place] [address] Performed By: #### 5 7021-8 ####[facility]ITALNCLIA [id number] [place] [address] [place] MCH (RBC) [Entitic mass] 26.6 pg Normal 26.0-34.0 [facility] Comment on above: Order Comment: Speci men Type: BLOOD SPECIMENOrdering Facility: [facility] Address: [address] [place] [address] Performed By: #### 5 7021-8 ####[facility] HOSPITALNCA [id number] [place] [address] [place] MCHC (RBC) [Mass/Vol] 30.5 g/dL Normal 30.5-36.0 [facility] Comment on above: Order Comment: Speci men Type: BLOOD SPECIMENOrdering Facility: [facility] Address: [address] [place] [address] Performed By: #### 5 7021-8 ####[facility] [facility] [id number] [place] [address] [place] MCV (RBC) [Entitic vol] 87.3 fL Normal 80.0-100.0 [facility] Comment on above: Order Comment: Speci men Type: BLOOD SPECIMENOrdering Facility: [facility] Address: [address] [place] [address] Performed By: #### 5 7021-8 ####[facility]CS[facility] [id number] [place] [address] [place] Monocytes (Bld) [#/Vol] 0.59 10*3/uL Normal <0.87 [facility] Comment on above: Order Comment: Speci men Type: BLOOD SPECIMENOrdering Facility: [facility] Address: [address] [place] [address] Performed By: #### 5 7021-8 ####[facility]ITALNCA [id number] [place] [address] [place] Monocytes/100 WBC (Bld) 5.5 % Normal [facility] Comment on above: Order Comment: Speci men Type: BLOOD SPECIMENOrdering Facility: [facility] Address: [address] [place] [address] Performed By: #### 5 7021-8 ####[facility]ITALNCLIA [id number] [place] [address] [place] Neutrophils (Bld) [#/Vol] 8.41 10*3/uL High 1.45-7.50 [facility] Comment on above: Order Comment: Speci men Type: BLOOD SPECIMENOrdering Facility: [facility] Address: [address] [place] [address] Performed By: #### 5 7021-8 ####[facility] MILLWNCLIA [id number] [place] [address] [place] Neutrophils/100 WBC (Bld) 78.6 % Normal [facility] Comment on above: Order Comment: Speci men Type: BLOOD SPECIMENOrdering Facility: [facility] Address: [address] [place] [address] Performed By: #### 5 7021-8 ####[facility] [id number] [place] [address] [place] Nucleated RBC (Bld) [#/Vol] 10*3/uL Normal <0.01 [facility] Comment on above: Order Comment: Speci men Type: BLOOD SPECIMENOrdering Facility: [facility] Address: [address] [place] [address] Performed By: #### 5 7021-8 ####[facility] [id number] [place] [address] [place] Nucleated RBC/100 WBC (Bld) [Ratio] 0.0 /100 WBC Normal [facility] Comment on above: Order Comment: Speci men Type: BLOOD SPECIMENOrdering Facility: [facility] Address: [address] [place] [address] Performed By: #### 5 7021-8 ####[facility] [id number] [place] [address] [place] Platelet mean volume (Bld) [Entitic vol] 10.9 fL Normal 9.0-12.7 [facility] Comment on above: Order Comment: Speci men Type: BLOOD SPECIMENOrdering Facility: [facility] Address: [address] [place] [address] Performed By: #### 5 7021-8 ####[facility]ITALNCLI [id number] [place] [address] [place] Platelets (Bld) [#/Vol] 290 10*3/uL Normal 150-400 [facility] Comment on above: Order Comment: Speci men Type: BLOOD SPECIMENOrdering Facility: [facility] Address: [address] [place] [address] Performed By: #### 5 7021-8 ####[facility]ITALNCLIA [id number] [place] [address] [place] RBC (Bld) [#/Vol] 5.04 10*6/uL Normal 3.90-5.20 [facility] Comment on above: Order Comment: Speci men Type: BLOOD SPECIMENOrdering Facility: [facility] Address: [address] [place] [address] Performed By: #### 5 7021-8 ####[facility]ITALNCLIA [id number] [place] [address] [place] WBC (Bld) [#/Vol] 10.70 10*3/uL Normal 3.70-11.00 [facility] Comment on above: Order Comment: Speci men Type: BLOOD SPECIMENOrdering Facility: [facility] Address: [address] [place] [address] Performed By: #### 5 7021-8 ####[facility]ITALNCLIA [id number] [place] [address] [place] Ferritin SerPl-mCncon 2023 Ferritin [Mass/Vol] 231.0 ng/mL High 14.7-205.1 [facility] Comment on above: Order Comment: Speci men Type: BLOOD SPECIMENOrdering Facility: [facility] Address: [address] [place] [address] Performed By: #### 5 0190-8, 2276-4 ####[facility] LABCLIA [id number] [place] [address] [place] Iron and Iron binding capaci ty panelon 03-17-2024 Iron [Mass/Vol] 35 ug/dL Low 41-186 [facility] Comment on above: Order Comment: Speci men Type: BLOOD SPECIMENOrdering Facility: [facility] Address: [address] [place] [address] Performed By: #### 5 0190-8, 6-4 ####[facility] LABCLIA [id number] [address] Iron binding capacity [Mass/Vol] 306 ug/dL Normal 232-386 [facility] Comment on above: Order Comment: Speci men Type: BLOOD SPECIMENOrdering Facility: [facility] Address: [address] [place] [address] Performed By: #### 5 0190-8, 2275-4 ####[facility] LABCLIA [id number] [address] STATES [facility] Iron/TIBC [Molar ratio] 11.4 % Low 15.0-57.0 [facility] Comment on above: Order Comment: Speci men Type: BLOOD SPECIMENOrdering Facility: [facility] Address: [address] [place] [address] Performed By: #### 5 0190-8, 2275-4 ####[facility] LABIA [id number] [address] [place] CNPDominique 01-22-2024 CNPN Telephone (FAMPWS) CORINNA CARR ([id number]) 1955 F Date Time Provider Department 01/22/24 [facility] During your visit today, we recorded the following information about you: Jaki Verdugo MD 01/22/2024 8:06 AM Signed Had labs drawn by Francesco. Sugars stable but slightly high. Blood counts and iron are ok. It is listed that she has a new pcp? If so, can we forward the results on to them. Lizzie Weinstein MA 01/22/2024 8:54 AM Signed No answer. VM verified. Left detailed message with results. Advised her I'd send results to pcp. Advised her to call back with any questions or concerns. Lizzie Weinstein MA Allergies As of Date: 01/22/2024 (No Known Allergies) Date Reviewed: 01/21/2024 Reviewed by: Tyler Dixon APRN.RADIOLOGY CLERK - Fully Assessed Reason for Visit: Results [95] Prescriptions as of 01/22/2024 - acetaminophen (TYLENOL) 325 mg tablet Take 650 mg by mouth. - FLUoxetine (PROZAC) 20 mg capsule Take 60 mg by mouth. - ibuprofen (MOTRIN) 400 mg tablet Take 600 mg by mouth. - lamoTRIgine (LAMICTAL) 25 mg tablet TAKE 1 TABLET BY MOUTH IN THE EVENING FOR 14 DAYS, THEN INCREASE TO 2 TABLETS IN THE EVENING - potassium chloride (K-TAB) 10 mEq tablet Take 1 tablet by mouth every afternoon. - traMADol (ULTRAM) 50 mg tablet Take 1 tablet by mouth every 12 hours. - hydrOXYchloroQUINE (PLAQUENIL) 200 mg tablet Take 1 tablet by mouth once daily - sucralfate (CARAFATE) 1 gram tablet Take 1 tablet by mouth three times a day before meals. - omeprazole (PRILOSEC) 40 mg capsule Take 1 capsule by mouth once daily. - albuterol HFA (PROVENTIL HFA, VENTOLIN HFA) 90 mcg/actuation inhaler Inhale 2 Puffs as instructed every 4 hours as needed for wheezing/shortness of breath. - furosemide (LASIX) 20 mg tablet Take 1 tablet by mouth two times a day. Patient may adjust from baseline 40 mg daily up to 40 mg twice daily based on weight gain greater than 3 pounds plus either increased shortness of breath or increased swelling. - cholecalciferol, Vitamin D3, (VITAMIN D3) 1,250 mcg (50,000 unit) cap capsule Take 1 capsule by mouth one time a week. - metFORMIN ER (GLUCOPHAGE XR) 750 mg 24 hr tablet Take 1 tablet by mouth daily with breakfast. - pravastatin (PRAVACHOL) 20 mg tablet Take 1 tablet by mouth daily at bedtime. - dulaglutide (TRULICITY) 3 mg/0.5 mL pen injector Inject 3 mg subcutaneously one time a week. - empagliflozin (JARDIANCE) 10 mg tablet Take 1 tablet by mouth once daily. Take 1 tablet once daily in the morning - blood sugar diagnostic (BLOOD GLUCOSE TEST) test strip Test blood sugar(s) 3 times daily. Dx: Type 2 DM - Uncontrolled E11.65 Insulin: Yes - blood sugar diagnostic (FREESTYLE LITE STRIPS) test strip Test blood sugar(s) 3 times daily. Dx: 250.02. Insulin: Yes - gabapentin (NEURONTIN) 300 mg capsule Take 1 capsule by mouth three times daily. Problem List As Of Date 01/22/2024 Noted Resolved Diabetes mellitus (HCC) [E11.9] 01/23/2006 [...] back pain [M54.50] 05/04/2011 11/19/2016 Lupus (HCC) [[id number]] Fibromyalgia [M79.7] DDD (degenerative disc disease), lumbar [M51.36* Obesity [E66.9] Peripheral neuropathy [G62.9] 06/23/2011 05/26/2019 [...] [F40.01] 02/18/2021 Chronic post-traumatic stress disorder (PTSD) [*11 (more content not included)... Normal [facility] ALT SerPl-cCncon 01-21-2024 ALT [Catalytic activity/Vol] 20 U/L Normal 7-38 [facility] Comment on above: Order Comment: Speci men Type: URINE SPECIMEN [facility] Address: [address] [place] [address] Performed By: #### U A #### [facility] CLIA [id number] [address] [place] [address] [place] AST SerPl-cCncon 01-21-2024 AST [Catalytic activity/Vol] 21 U/L Normal 13-35 [facility] Comment on above: Order Comment: Speci men Type: URINE SPECIMEN [facility] Address: [address] [place] [address] Performed By: #### U A #### [facility] CLIA [id number] [address] [place] [address] [place] Albumin SerPl-mCncon 024 Albumin [Mass/Vol] 4.3 g/dL Normal 3.9-4.9 [facility] Comment on above: Order Comment: Speci men Type: URINE SPECIMEN [facility] Address: [address] [place] [address] Performed By: #### U A #### [facility] CLIA [id number] [address] [place] [address] [place] C3 SerPl-mCncon 01-21-2024 Complement C3 [Mass/Vol] 135 mg/dL Normal 86-166 [facility] Comment on above: Order Comment: Speci men Type: URINE SPECIMEN [facility] Address: [address] [place] [address] Performed By: #### U A #### [facility] CLIA [id number] [address] [place] [address] [place] C4 SerPl-mCncon 01-21-2024 Complement C4 [Mass/Vol] 25 mg/dL Normal 13-46 [facility] Comment on above: Order Comment: Speci men Type: BLOOD SPECIMENOrdering Facility: [facility] Address: [address] [place] [address] Performed By: #### 4 498-2, CRET1 ####[facility] LABIA [id number] [place] [address] [place] CBC W Auto Differential pane l (Bld)on 01-21-2024 Basophils (Bld) [#/Vol] 0.06 10*3/uL Normal <0.11 [facility] Comment on above: Order Comment: Speci men Type: URINE SPECIMEN [facility] Address: [address] [place] [address] Performed By: #### U A #### [facility] CLIA [id number] [address] [place] [address] [place] Basophils/100 WBC (Bld) 0.6 % Normal [facility] Comment on above: Order Comment: Speci men Type: URINE SPECIMEN [facility] Address: [address] [place] [address] Performed By: #### U A #### [facility] CLIA [id number] [address] [place] [address] [place] Differential cell count method Nom (Bld) Auto Normal [facility] Comment on above: Order Comment: Speci men Type: URINE SPECIMEN [facility] Address: [address] [place] [address] Performed By: #### U A #### [facility] CLIA [id number] [address] [place] [address] [place] Eosinophils (Bld) [#/Vol] 0.40 10*3/uL Normal <0.46 [facility] Comment on above: Order Comment: Speci men Type: URINE SPECIMEN [facility] Address: [address] [place] [address] Performed By: #### U A #### [facility] CLIA [id number] [address] [place] [address] [place] Eosinophils/100 WBC (Bld) 4.0 % Normal [facility] Comment on above: Order Comment: Speci men Type: URINE SPECIMEN [facility] Address: [address] [place] [address] Performed By: #### U A #### [facility] CLIA [id number] [address] [place] [address] [place] Erythrocyte distribution width (RBC) [Ratio] 15.4 % High 11.5-15.0 [facility] Comment on above: Order Comment: Speci men Type: URINE SPECIMEN [facility] Address: [address] [place] [address] Performed By: #### U A #### [facility] CLIA [id number] [address] [place] [address] [place] Hematocrit (Bld) [Volume fraction] 45.0 % Normal 36.0-46.0 [facility] Comment on above: Order Comment: Speci men Type: URINE SPECIMEN [facility] Address: [address] [place] [address] Performed By: #### U A #### [facility] CLIA [id number] [address] [place] [address] [place] Hemoglobin (Bld) [Mass/Vol] 13.5 g/dL Normal 11.5-15.5 [facility] Comment on above: Order Comment: Speci men Type: URINE SPECIMEN [facility] Address: [address] [place] [address] Performed By: #### U A #### [facility] CLIA [id number] [address] [place] [address] [place] Immature granulocytes (Bld) [#/Vol] 0.19 10*3/uL High <0.10 [facility] Comment on above: Order Comment: Speci men Type: URINE SPECIMEN [facility] Address: [address] [place] [address] Performed By: #### U A #### [facility] CLIA [id number] [address] [place] [address] [place] Immature granulocytes/100 WBC (Bld) 1.9 % Normal [facility] Comment on above: Order Comment: Speci men Type: URINE SPECIMEN [facility] Address: [address] [place] [address] Performed By: #### U A #### [facility] CLIA [id number] [address] [place] [address] [place] Lymphocytes (Bld) [#/Vol] 2.34 10*3/uL Normal 1.00-4.00 [facility] Comment on above: Order Comment: Speci men Type: URINE SPECIMEN [facility] Address: [address] [place] [address] Performed By: #### U A #### [facility] CLIA [id number] [address] [place] [address] [place] Lymphocytes/100 WBC (Bld) 23.4 % Normal [facility] Comment on above: Order Comment: Speci men Type: URINE SPECIMEN [facility] Address: [address] [place] [address] Performed By: #### U A #### [facility] CLIA [id number] [address] [place] [address] [place] MCH (RBC) [Entitic mass] 27.3 pg Normal 26.0-34.0 [facility] Comment on above: Order Comment: Speci men Type: URINE SPECIMEN [facility] Address: [address] [place] [address] Performed By: #### U A #### [facility] CLIA [id number] [address] [place] [address] [place] MCHC (RBC) [Mass/Vol] 30.0 g/dL Low 30.5-36.0 [facility] Comment on above: Order Comment: Speci men Type: URINE SPECIMEN [facility] Address: [address] [place] [address] Performed By: #### U A #### [facility] CLIA [id number] [address] [place] [address] [place] MCV (RBC) [Entitic vol] 91.1 fL Normal 80.0-100.0 [facility] Comment on above: Order Comment: Speci men Type: URINE SPECIMEN [facility] Address: [address] [place] [address] Performed By: #### U A #### [facility] CLIA [id number] [address] [place] [address] [place] Monocytes (Bld) [#/Vol] 0.53 10*3/uL Normal <0.87 [facility] Comment on above: Order Comment: Speci men Type: URINE SPECIMEN [facility] Address: [address] [place] [address] Performed By: #### U A #### [facility] CLIA [id number] [address] [place] [address] [place] Monocytes/100 WBC (Bld) 5.3 % Normal [facility] Comment on above: Order Comment: Speci men Type: URINE SPECIMEN [facility] Address: [address] [place] [address] Performed By: #### U A #### [facility] CLIA [id number] [address] [place] [address] [place] Neutrophils (Bld) [#/Vol] 6.49 10*3/uL Normal 1.45-7.50 [facility] Comment on above: Order Comment: Speci men Type: URINE SPECIMEN [facility] Address: [address] [place] [address] Performed By: #### U A #### [facility] CLIA [id number] [address] [place] [address] [place] Neutrophils/100 WBC (Bld) 64.8 % Normal [facility] Comment on above: Order Comment: Speci men Type: URINE SPECIMEN [facility] Address: [address] [place] [address] Performed By: #### U A #### [facility] CLIA [id number] [address] [place] [address] [place] Nucleated RBC (Bld) [#/Vol] 0.02 10*3/uL High <0.01 [facility] Comment on above: Order Comment: Speci men Type: URINE SPECIMEN [facility] Address: [address] [place] [address] Performed By: #### U A #### [facility] CLIA [id number] [address] [place] [address] [place] Nucleated RBC/100 WBC (Bld) [Ratio] 0.2 /100 WBC Normal [facility] Comment on above: Order Comment: Speci men Type: URINE SPECIMEN [facility] Address: [address] [place] [address] Performed By: #### U A #### [facility] CLIA [id number] [address] [place] [address] [place] Platelet mean volume (Bld) [Entitic vol] 11.0 fL Normal 9.0-12.7 [facility] Comment on above: Order Comment: Speci men Type: URINE SPECIMEN [facility] Address: [address] [place] [address] Performed By: #### U A #### [facility] CLIA [id number] [address] [place] [address] [place] Platelets (Bld) [#/Vol] 290 10*3/uL Normal 150-400 [facility] Comment on above: Order Comment: Speci men Type: URINE SPECIMEN [facility] Address: [address] [place] [address] Performed By: #### U A #### [facility] CLIA [id number] [address] [place] [address] [place] RBC (Bld) [#/Vol] 4.94 10*6/uL Normal 3.90-5.20 [facility] Comment on above: Order Comment: Speci men Type: URINE SPECIMEN [facility] Address: [address] [place] [address] Performed By: #### U A #### [facility] CLIA [id number] [address] [place] [address] [place] WBC (Bld) [#/Vol] 10.01 10*3/uL Normal 3.70-11.00 [facility] Comment on above: Order Comment: Speci men Type: URINE SPECIMEN [facility] Address: [address] [place] [address] Performed By: #### U A #### [facility] CLIA [id number] [address] [place] [address] [place] CNOVon 01-21-2024 CNOV Office Visit (RHEUST ) CORINNA CARR ([id number]) 1955 F Date Time Provider Department 01/21/24 1:30 PM TYLER DIXON During your visit today, we recorded the following information about you: Temperature Pulse Blood pressure Weight 97.9 degrees 67/minute 109/73 92.5 kg Height 1.638 m Tyler Dixon APRN.TODD 01/21/2024 1:17 PM Signed Please schedule Plaquenil eye exam for 04/2024 Tyler Dixon APRN.CNP 01/21/2024 1:42 PM Signed HPI: To review, Corinna Carr is a 68 year old female - In , diagnosed [...] HISTORY Diagnosis Date Aspiration pneumonia (HCC) 04/2019 [facility] DDD (degenerative disc disease) Depression Diabetes mellitus without mention of complication Fibromyalgia Hyperlipidemia Iron deficiency anemia, unspecified Dr Duong Iron malabsorption 10/23/2022 Lupus (HCC) Obesity Vitamin D deficiency 2012 PAST SURGICAL HISTORY Procedure Laterality Date ARTHRP KNE CONDYLEANDPLATU MEDIALANDLAT COMPARTMENTS Left 02/25/[address] CARDIAC CATH 2007 no stenosis minimal plaque [...] 01/2014 ALLERGIES No Known Allergies INTERVAL HISTORY She is here for follow up. ADRIANA was in 05/2022. She is doing well overall. She states lupus has been stable. She takes tramadol for pain. Sites of pain: low back, pain rated 5/10 Joint swelling: none EMS: yes to back, lasting 15-20 minutes No recent infections. Tolerating meds. REVIEW OF SYSTEMS GENERAL: No fevers HEENT: +headaches RESPIRATORY: Negative for cough, hemoptysis, wheezing, or shortness of breath CARDIOVASCULAR: Negative for chest pain or palpitations GI: + nausea, no vomiting, + diarrhea : No history of dysuria SKIN: Negative for lesions, rash No gross hematuria or blood in stool No mouth or nasal sores +hair loss +fatigue Photosensitivity- eyes are sensitive, erythema to face Current Outpatient Medications Medication Sig hydrOXYchloroQUINE (PLAQUENIL) 200 mg tablet Take 1 tablet by mouth once daily sucralfate (CARAFATE) 1 gram tablet Take 1 tablet by mouth three times a day before meals. omeprazole (PRILOSEC) 40 mg capsule Take 1 capsule by mouth once daily. albuterol HFA (PROVENTIL HFA, VENTOLIN HFA) 90 mcg/actuation inhaler Inhale 2 Puffs as instructed every 4 hours as needed for wheezing/shortness of breath. furosemide (LASIX) 20 mg tablet Take 1 tablet by mouth two times a day. Patient may adjust from baseline 40 mg daily up to 40 mg twice daily based on weight gain greater than 3 pounds plus either increased shortness of breath or increased swelling. cholecalciferol, Vitamin D3, (VITAMIN D3) 1,250 mcg (50,000 unit) cap capsule Take 1 capsule by mouth one time a week. metFORMIN ER (GLUCOPHAGE XR) 750 mg 24 hr tablet Take 1 tablet by mouth daily with breakfast. pravastatin (PRAVACHOL) 20 mg tablet Take 1 tablet by mouth daily at bedtime. dulaglutide (TRULICITY) 3 mg/0.5 mL pen injector Inject 3 mg subcutaneously one time a week. empagliflozin (JARDIANCE) 10 mg tablet Take 1 tablet by mouth once daily. Take 1 tablet once daily in the morning blood sugar diagnostic (BLOOD GLUCOSE TEST) test strip Test blood sugar(s) 3 times daily. Dx: Type 2 DM - Uncontrolled E11.65 Insulin: Yes blood sugar diagnostic (FREESTYLE LITE STRIPS) test strip Test blood sugar(s) 3 (more content not included)... Normal [facility] CREATININE [facility] 01-21-2024 Creatinine [Mass/Vol] 1.42 mg/dL High 0.58-0.96 [facility] Comment on above: Order Comment: Speci men Type: BLOOD SPECIMENOrdering Facility: [facility] Address: [address] [place], [place] [address] [address] Performed By: #### 4 498-2, CRET1 ####[facility]CLIA [id number] [place] [address] [place] Creatinine and Glomerular filtration rate.predicted panel (S/P/Bld) 41 mL/min/1.73m??? Low >=60 [facility] Comment on above: Order Comment: Speci men Type: BLOOD SPECIMENOrdering Facility: [facility] Address: [address] [place] [address] Result Comment: Kristan mated Glomerular Filtration Rate (eGFR) is calculated using the 2020 CKD-EPI creatinine equation. This equation utilizes serum creatinine, sex, and age as parameters. The creatinine assay has traceable calibration to isotope dilution-mass spectrometry. Refer to KDIGO guidelines for clinical interpretation. In patients with unstable renal function, e.g. those with acute kidney injury, the eGFR may not accurately reflect actual GFR. Performed By: #### 4 498-2, CRET1 ####[facility]IA [id number] [place] [address] [place] CRP SerPl-mCgaon 01-21-2024 CRP [Mass/Vol] 1.1 mg/dL High <0.9 [facility] Comment on above: Order Comment: Speci men Type: URINE SPECIMEN Ordering Facility: [facility] Address: [address] [place] [address] Performed By: #### U A #### [facility] CLIA [id number] [address] [place] [address] [place] DNA ANTIBODY DS BLDon 2023 DNA ANTIBODY 1071 IU/mL High <=200 [facility] Comment on above: Order Comment: Speci men Type: BLOOD SPECIMENOrdering Facility: [facility] Address: [address] [place] [address] Result Comment: Nega tive: <200 IU/mL Equivocal: 201-300 IU/mL Moderate Positive: 301-800 IU/mL Strong Positive: >801 IU/mL Performed By: #### D NAAB ####[facility] [id number] [place] [address] [place] DNA ANTIBODY QUALITATIVE INTERPRETATION Positive Abnormal Negative [facility] Comment on above: Order Comment: Speci men Type: BLOOD SPECIMENOrdering Facility: [facility] Address: [address] [place] [address] Performed By: #### D NAAB ####[facility] [id number] [place] [address] [place] ESR Westergren method (Bld) [Velocity]on 01-21-2024 ESR (Bld) [Velocity] 29 mm/h High 0-20 [facility] Comment on above: Order Comment: Speci men Type: BLOOD SPECIMENOrdering Facility: [facility] Address: [address] [place] [address] Performed By: #### 4 537-7 ####[facility] [id number] [place] [address] [place] Ferritin SerPl-mCncon 2023 Ferritin [Mass/Vol] 204.0 ng/mL Normal 14.7-205.1 [facility] Comment on above: Order Comment: Speci men Type: BLOOD SPECIMENOrdering Facility: [facility] Address: [address] [place] [address] Performed By: #### 5 0190-8, 2276-4 ####[facility] [id number] [place] [address] [place] HbA1c (Bld)on 01-21-2024 Average glucose Estimated from glycated hemoglobin (Bld) [Mass/Vol] 163 mg/dL Normal [facility] Comment on above: Order Comment: Speci men Type: BLOOD SPECIMENOrdering Facility: [facility] Address: [address] [place] [address] Result Comment: eAG: (Estimated average glucose) is a calculated value from HgbA1c and is business banking representative of the average blood glucose level in the last 2-3 month period. Performed By: #### 5 5454-3 ####[facility] [id number] [place] [address] [place] HbA1c (Bld) [Mass fraction] 7.3 % High 4.3-5.6 [facility] Comment on above: Order Comment: Speci men Type: BLOOD SPECIMENOrdering Facility: [facility] Address: [address] [place] [address] Result Comment: Amer ican Diabetes Association guidelines indicate that patients with HgbA1c in the range 5.7-6.4% are at increased risk for development of diabetes, and intervention by lifestyle modification may be beneficial. HgbA1c greater or equal to 6.5% is considered diagnostic of diabetes. Performed By: #### 5 5454-3 ####[facility] [id number] [place] [address] [place] Iron and Iron binding capaci ty panelon 01-21-2024 Iron [Mass/Vol] 48 ug/dL Normal 41-186 [facility] Comment on above: Order Comment: Speci men Type: BLOOD SPECIMENOrdering Facility: [facility] Address: [address] [place] [address] Performed By: #### 5 0190-8, 6-4 ####[facility] [id number] [place] [address] [place] Iron binding capacity [Mass/Vol] 321 ug/dL Normal 232-386 [facility] Comment on above: Order Comment: Speci men Type: BLOOD SPECIMENOrdering Facility: [facility] Address: [address] [place] [address] Performed By: #### 5 0190-8, 6-4 ####[facility] [id number] [place] [address] [place] Iron/TIBC [Molar ratio] 15.0 % Normal 15.0-57.0 [facility] Comment on above: Order Comment: Speci men Type: BLOOD SPECIMENOrdering Facility: [facility] Address: [address] [place] [address] Performed By: #### 5 0190-8, 2276-4 ####[facility] [id number] [place] [address] [place] Prot/Creat Uron 01-21-2024 Protein/Creatinine (U) [Mass ratio] 0.40 mg/mg High <0.15 [facility] Comment on above: Order Comment: Speci men Type: URINE SPECIMENOrdering Facility: [facility] Address: [address] [place] [address] Result Comment: Adul t Proteinuria Categories: <0.15 mg/mg is considered normal to mildly increased 0.15 - 0.50 mg/mg is considered moderately increased >0.50 mg/mg is considered severely increased KDIGO. (2013). KDIGO 2012 Clinical Practice Guideline for the Evaluation and Management of Chronic Kidney Disease. Official Journal of the International Society of Nephrology, 3(1), 1-150. Performed By: #### 2 890-2 ####[facility] LABIA [id number] [place] [address] [place] Protein/Creatinine (U) [Mass ratio]on 01-21-2024 Creatinine (U) [Mass/Vol] 42.2 mg/dL Normal 20.0-300.0 [facility] Comment on above: Order Comment: Speci men Type: URINE SPECIMENOrdering Facility: [facility] Address: [address] [place] [address] Performed By: #### 2 890-2 ####[facility] [id number] [place] [address] [place] Protein (U) [Mass/Vol] 17 mg/dL Normal 0-20 [facility] Comment on above: Order Comment: Speci men Type: URINE SPECIMENOrdering Facility: [facility] Address: [address] [place] [address] Performed By: #### 2 890-2 ####[facility]IA [id number] [place] [address] [place] URINALYSIS, DIPSTICK ONLYon 01-21-2024 Bilirubin Ql (U) Negative Normal Negative [facility] Comment on above: Order Comment: Speci men Type: URINE SPECIMEN Ordering Facility: [facility] Address: [address] [place] [address] Performed By: #### U A #### [facility] CLIA [id number] [address] [place] [address] [place] Clarity (Unsp spec) Clear Normal Clear [facility] Comment on above: Order Comment: Speci men Type: URINE SPECIMEN Ordering Facility: [facility] Address: [address] [place] [address] Performed By: #### U A #### [facility] CLIA [id number] [address] [place] [address] [place] Color (U) Yellow Normal Yellow [facility] Comment on above: Order Comment: Speci men Type: URINE SPECIMEN Ordering Facility: [facility] Address: [address] [place] [address] Performed By: #### U A #### [facility] CLIA [id number] [address] [place] [address] [place] Glucose Test strip (U) [Mass/Vol] 3+ Abnormal Negative [facility] Comment on above: Order Comment: Speci men Type: URINE SPECIMEN Ordering Facility: [facility] Address: [address] [place] [address] Performed By: #### U A #### [facility] CLIA [id number] [address] [place] [address] [place] Hemoglobin Ql (U) Negative Normal Negative [facility] Comment on above: Order Comment: Speci men Type: URINE SPECIMEN Ordering Facility: [facility] Address: [address] [place] [address] Performed By: #### U A #### [facility] CLIA [id number] [address] [place] [address] [place] Ketones Ql (U) Negative Normal Negative [facility] Comment on above: Order Comment: Speci men Type: URINE SPECIMEN Ordering Facility: [facility] Address: [address] [place] [address] Performed By: #### U A #### [facility] CLIA [id number] [address] [place] [address] [place] Leukocyte esterase Test strip Ql (U) 2+ Abnormal Negative [facility] Comment on above: Order Comment: Speci men Type: URINE SPECIMEN Ordering Facility: [facility] Address: [address] [place] [address] Performed By: #### U A #### [facility] CLIA [id number] [address] [place] [address] [place] Nitrite Ql (U) Positive Abnormal Negative [facility] Comment on above: Order Comment: Speci men Type: URINE SPECIMEN Ordering Facility: [facility] Address: [address] [place] [address] Performed By: #### U A #### [facility] CLIA [id number] [address] [place] [address] [place] pH (U) 6.0 [pH] Normal <8.5 [facility] Comment on above: Order Comment: Speci men Type: URINE SPECIMEN Ordering Facility: [facility] Address: [address] [place] [address] Performed By: #### U A #### [facility] CLIA [id number] [address] [place] [address] [place] Protein (U) [Mass/Vol] Trace Abnormal Negative [facility] Comment on above: Order Comment: Speci men Type: URINE SPECIMEN Ordering Facility: [facility] Address: [address] [place] [address] Performed By: #### U A #### [facility] CLIA [id number] [address] [place] [address] [place] Specific gravity (U) [Rel density] 1.015 Normal 1.005-1.03 0 [facility] Comment on above: Order Comment: Speci men Type: URINE SPECIMEN Ordering Facility: [facility] Address: [address] [place] [address] Performed By: #### U A #### [facility] CLIA [id number] [address] [place] [address] [place] Urobilinogen Ql (U) 0.2 EU/dL Normal 0.2-1.0 EU/dL [facility] Comment on above: Order Comment: Speci men Type: URINE SPECIMEN Ordering Facility: [facility] Address: [address] [place] [address] Performed By: #### U A #### [facility] CLIA [id number] [address] [place] [address] [place] FERRITINon 10-24-2023 Ferritin [Mass/Vol] 132.0 ng/mL 14.7 - 205.1 ng/mL [facility] Ferritin [Mass/Vol]on 2023 Interpretation and review of laboratory results Normal [facility] Iron and Iron binding capaci ty panelon 10-24-2023 Interpretation and review of laboratory results Normal [facility] Iron [Mass/Vol] 52 ug/dL 41 - 186 ug/dL [facility] Iron binding capacity [Mass/Vol] 311 ug/dL 232 - 386 ug/dL [facility] Iron/TIBC [Molar ratio] 16.7 % 15.0 - 57.0 % [facility] CBC W Auto Differential pane l (Bld)on 10-23-2023 Basophils (Bld) [#/Vol] 0.05 10*3/uL NINF [facility] Basophils/100 WBC (Bld) 0.5 % [facility] Differential cell count method Nom (Bld) Auto [facility] Eosinophils (Bld) [#/Vol] 0.38 10*3/uL [facility] Eosinophils/100 WBC (Bld) 4.0 % [facility] Erythrocyte distribution width (RBC) [Ratio] 14.8 % 11.5 - 15.0 % [facility] Hematocrit (Bld) [Volume fraction] 43.1 % 36.0 - 46.0 % [facility] Hemoglobin (Bld) [Mass/Vol] 12.9 g/dL 11.5 - 15.5 g/dL [facility] Immature granulocytes (Bld) [#/Vol] 0.10 10*3/uL High [facility] Immature granulocytes/100 WBC (Bld) 1.0 % [facility] Interpretation and review of laboratory results Abnormal [facility] Lymphocytes (Bld) [#/Vol] 2.02 10*3/uL [facility] Lymphocytes/100 WBC (Bld) 21.2 % [facility] MCH (RBC) [Entitic mass] 27.6 pg 26.0 - 34.0 pg [facility] MCHC (RBC) [Mass/Vol] 29.9 g/dL Low 30.5 - 36.0 g/dL [facility] MCV (RBC) [Entitic vol] 92.3 fL 80.0 - 100.0 fL [facility] Monocytes (Bld) [#/Vol] 0.51 10*3/uL [facility] Monocytes/100 WBC (Bld) 5.4 % [facility] Neutrophils (Bld) [#/Vol] 6.47 10*3/uL [facility] Neutrophils/100 WBC (Bld) 67.9 % [facility] Nucleated RBC (Bld) [#/Vol] [facility] Nucleated RBC/100 WBC (Bld) [Ratio] 0.0 % /100 WBC [facility] Platelet mean volume (Bld) [Entitic vol] 9.9 fL 9.0 - 12.7 fL [facility] Platelets (Bld) [#/Vol] 259 10*3/uL [facility] RBC (Bld) [#/Vol] 4.67 10*6/uL 3.90 - 5.20 m/uL [facility] WBC (Bld) [#/Vol] 9.53 10*3/uL [facility] XR Chest PA and Lateralon IMPRESSION: No acute radiographic abnormality. Hose Suspender Cutter: ARABELLA Transcribe Date/Time: Sep 17 2023 3:19P Dictated by : SULTANA SANDHU MD This examination was interpreted and the report reviewed and electronically signed by: SULTANA SANDHU MD on Sep 17 2023 3:20PM [facility] DIVISION OF RADIOLOGY * * *Final Report* * * DATE OF EXAM: Sep 17 2023 3:19PM WOX [id number] - XR CHEST 2V FRONTAL/LAT / PROCEDURE REASON: Acute cough * * * * Physician Interpretation * * * * EXAMINATION: CHEST RADIOGRAPH (2 VIEW FRONTAL & LATERAL) CLINICAL HISTORY: Acute cough MQ: XC2_6 EXAM DATE/TIME: 09/17/2023 3:19 PM COMPARISON: Chest x-ray on 07/27/2023 RESULT: Lines, tubes, and devices: None. Lungs and pleura: No consolidation. No lung mass. No pleural effusion. No pneumothorax. Cardiomediastinal silhouette: Normal cardiomediastinal silhouette. Bones and soft tissues: Stable spinal cord stimulator leads. The spine shows degenerative changes. DIVISION OF RADIOLOGY Provider, [facility] - 09/17/2023 * * *Final Report* * * DATE OF EXAM: Sep 17 2023 3:19PM WOX [id number] - XR CHEST 2V FRONTAL/LAT / PROCEDURE REASON: Acute cough * * * * Physician Interpretation * * * * EXAMINATION: CHEST RADIOGRAPH (2 VIEW FRONTAL & LATERAL) CLINICAL HISTORY: Acute cough MQ: XC2_6 EXAM DATE/TIME: 09/17/2023 3:19 PM COMPARISON: Chest x-ray on 07/27/2023 RESULT: Lines, tubes, and devices: None. Lungs and pleura: No consolidation. No lung mass. No pleural effusion. No pneumothorax. Cardiomediastinal silhouette: Normal cardiomediastinal silhouette. Bones and soft tissues: Stable spinal cord stimulator leads. The spine shows degenerative changes. IMPRESSION IMPRESSION: No acute radiographic abnormality. Hose Suspender Cutter: ARABELLA Transcribe Date/Time: Sep 17 2023 3:19P Dictated by : SULTANA SANDHU MD This examination was interpreted and the report reviewed and electronically signed by: SULTANA SANDHU MD on Sep 17 2023 3:20PM [facility] Radiology Study observation (narrative) [facility] XR Chest PA and LateralOrder ed By: [facility] Provider on 09-17-2023 [facility] XR Chest PA and Lateralon IMPRESSION: No acute radiographic abnormality. Hose Suspender Cutter: ARABELLA Transcribe Date/Time: Jul 27 2023 12:08P Dictated by : MIKAYLA FELICIANO DO This examination was interpreted and the report reviewed and electronically signed by: MIKAYLA FELICIANO DO on Jul 27 2023 12:08PM [facility] DIVISION OF RADIOLOGY * * *Final Report* * * DATE OF EXAM: Jul 27 2023 11:31AM WOX 5291 - XR CHEST 2V FRONTAL/LAT / PROCEDURE REASON: Acute cough * * * * Physician Interpretation * * * * EXAMINATION: CHEST RADIOGRAPH (2 VIEW FRONTAL & LATERAL) CLINICAL HISTORY: Acute cough MQ: XC2_6 EXAM DATE/TIME: 07/27/2023 11:31 AM COMPARISON: 06/10/2020 RESULT: Lines, tubes, and devices: Neuro stimulating leads are again noted projecting over the posterior aspect of the canal at the mid thoracic region. Lungs and pleura: No consolidation. No lung mass. No pleural effusion. No pneumothorax. Cardiomediastinal silhouette: Normal cardiomediastinal silhouette. Bones and soft tissues: Unremarkable. DIVISION OF RADIOLOGY Provider, [facility] - 07/27/2023 * * *Final Report* * * DATE OF EXAM: Jul 27 2023 11:31AM WOX 5291 - XR CHEST 2V FRONTAL/LAT / PROCEDURE REASON: Acute cough * * * * Physician Interpretation * * * * EXAMINATION: CHEST RADIOGRAPH (2 VIEW FRONTAL & LATERAL) CLINICAL HISTORY: Acute cough MQ: XC2_6 EXAM DATE/TIME: 07/27/2023 11:31 AM COMPARISON: 06/10/2020 RESULT: Lines, tubes, and devices: Neuro stimulating leads are again noted projecting over the posterior aspect of the canal at the mid thoracic region. Lungs and pleura: No consolidation. No lung mass. No pleural effusion. No pneumothorax. Cardiomediastinal silhouette: Normal cardiomediastinal silhouette. Bones and soft tissues: Unremarkable. IMPRESSION IMPRESSION: No acute radiographic abnormality. Hose Suspender Cutter: PSCB Transcribe Date/Time: Jul 27 2023 12:08P Dictated by : MIKAYLA FELICIANO DO This examination was interpreted and the report reviewed and electronically signed by: MIKAYLA FELICIANO DO on Jul 27 2023 12:08PM EST [facility] Radiology Study observation (narrative) [facility] XR Chest PA and LateralOrder ed By: [facility] Provider on 07-27-2023 [facility] ANES POSTPROC EVALon 023 ANES POSTPROC EVAL HNO ID: [id number] Author: Lavelle Vickers APRN.SLOOP CAPTAIN Service: ? Author Type: Nurse Grader Patrol Type: Anesthesia Postprocedure Evaluation Filed: 08/16/2022 12:08 PM Note Text: POST ANESTHESIA EVALUATION NOTE : 1955 Procedure Summary Date: 08/16/22 Room / Location: [facility] Anesthesia Start: 1128 Anesthesia Stop: Procedures: COLONOSCOPY DIAGNOSTIC EGD DIAGNOSTIC Diagnosis: Gastroesophageal reflux disease with esophagitis without hemorrhage Nausea Change in bowel habits Blood in stool Gastroesophageal reflux disease with esophagitis without hemorrhage Nausea Change in bowel habits Blood in stool Scheduled Providers: Eugenia Vee MD; Lavelle Vickers APRN.SLOOP CAPTAIN Responsible Provider: Lavelle Vickers APRN.SLOOP CAPTAIN Anesthesia Type: MAC ASA Status: 3 Anesthesia Type: MAC Last Vitals Vitals Value Taken Time BP 109/49 08/16/22 1207 Temp 97.8 08/16/22 1207 Pulse 85 08/16/22 1207 Resp 14 08/16/22 1207 SpO2 96 08/16/22 1207 Post Anesthesia Patient Status Patient Evaluation: PACU. Anticipated Disposition: phase 2 then home. Neurological Status: aware and responsive. Pulmonary Status: breathing comfortably on room air Airway Control: returned to baseline unsupported. Cardiovascular Status: stable. Pain Management: clinically adequate Postoperative Hydration: acceptable. Intraoperative Events: no significant anesthesia events Post Operative Nausea/Vomiting Status: no significant post operative nausea or vomiting Recommendation: continue current plan of care. Anesthesia Observations No Documentation SIGNATURE: Lavelle Vickers APRN.SLOOP CAPTAIN PATIENT NAME: Corinna Carr DATE: August 16, 2022 TIME: 12:07 PM CSN: [id number] Normal [facility] ANES PRE-OPon 08-16-2022 ANES PRE-OP HNO ID: [id number] Author: Lavelle Vickers APRN.SLOOP CAPTAIN Service: ? Author Type: Nurse Grader Patrol Type: Anesthesia Preprocedure Evaluation Filed: 08/16/2022 11:19 AM Note Text: ANESTHESIOLOGY DAY OF SURGERY NOTE : 1955 Procedure Information Date/Time: 08/16/22 1145 Scheduled providers: Eugenia Vee MD; Lavelle Vickers APRN.SLOOP CAPTAIN Procedures: COLONOSCOPY DIAGNOSTIC EGD DIAGNOSTIC Location: [facility] Estimated body mass index is 35.02 kg/m? as calculated from the following: Height as of 08/10/22: 162.6 cm (5' 4). Weight as of 08/10/22: 92.5 kg (204 lb). Most recent hematocrit and potassium results: Hematocrit 41.6 08/15/2022 Potassium 4.1 10/12/2021 Relevant Problems CARDIO (+) Congestive heart failure (HCC) (+) Right bundle branch block ENDO (+) Type 2 diabetes mellitus with diabetic neuropathy, without long-term current use of insulin (HCC) (+) Type 2 diabetes mellitus with stage 3 chronic kidney disease, without long-term current use of insulin (HCC) GI (+) Gastroesophageal reflux disease with esophagitis without hemorrhage -RENAL (+) Chronic renal insufficiency, stage 3 (moderate) (HCC) I - PHYSICAL EVALUATION AIRWAY Patient intubated: No. Tracheostomy tube not present Mallampati: II. TM distance: >3 FB. Neck ROM: full ROM without neurological symptoms. Mouth opening: adequate. Short neck: no. Thick neck: no DENTAL Dental findings: edentulous. II - ANESTHESIA PLAN ASA Score: 3 Anesthetic Plan: MAC The patient is not a current smoker. NPO Status: adequate Beta Clau Monitoring Plan Monitoring plan: standard ASA. Post Procedure Analgesic Plan Postoperative analgesic plan: parenteral or oral opioids. Informed Consent Anesthetic risks, benefits, alternatives, personnel and consent discussed: yes. Patient / Surrogate agrees to blood products: blood products not planned Vitals Value Taken Time BP 149/65 08/16/22 1048 Pulse Resp 20 08/16/22 1048 Temp 36.1 ?C (96.9 ?F) 08/16/22 1048 SpO2 97 % 08/16/22 1048 Facility-Administered Medications as of 08/16/2022 Medication Dose Route Frequency - lidocaine (PF) 10 mg/mL (1 %) 1-2 mg injection (XYLOCAINE) 0.1-0.2 mL INTRADERMAL PRN - lactated ringers iv infusion 75 mL/hr INTRAVENOUS CONTINUOUS Outpatient Medications as of 08/16/2022 Medication Sig - lidocaine (LIDODERM) 5 % - pravastatin (PRAVACHOL) 20 mg tablet Take [...] by mouth twice daily with meals. PRN) - Insulin [place], Disposable, (PEN NEEDLES) 31 gauge x 1/4 [...] 1 capsule by mouth three times daily. I have interviewed and examined the patient. I have reviewed the medical record and/or the pre-anesthesia evaluation, pertinent labs, and test results. This contains updated information obtained within 48 hours of Surgery/Procedure. SIGNATURE: Lavelle Vickers APRN.CRNA PATIENT NAME: Corinna Carr DATE: August 16, 2022 TIME: 11:15 AM CSN: [id number] [facility] BRIEF OP NOTon 08-16-2022 BRIEF OP NOT HNO ID: [id number] Author: Eugenia Vee MD Service: General Surgery Author Type: Physician Type: Brief Op Note Filed: 08/16/2022 4:28 PM Note Text: BRIEF OPERATIVE NOTE SURGERY DATE: 08/16/2022 Incision/Procedure Start Time: 11:32 cecal intubation time: 11:48 Incision Close/Procedure End Time: 12:02 Surgeon(s)/Proceduralist(s) and Surveyor Geophysical Prospecting(s): sarkis Procedures: EGD with biopsies Screening (high risk) colonoscopy Anesthesia: MAC Findings: mild gastritis, very small hiatal hernia with irregular z line Estimated Blood Loss: minimal Specimens: mucosal biopsies of antrum of stomach/GE junction Complications: None Closure Technique: NA Preop Diagnosis: acid reflux, history of colon polyps last found tubular adenoma 2013, last colonoscopy 2016 - no polyps found Postop Diagnosis: acid reflux - mild gastritis, irregular z line, history of colon polyps, hemorrhoids SIGNATURE: Eugenia Vee MD PATIENT NAME: Corinna Carr DATE: August 16, 2022 TIME: 12:05 PM Acct: [id number] [facility] HISTORY PHYSICALon HISTORY PHYSICAL HNO ID: [id number] Author: Eugenia Vee MD Service: General Surgery Author Type: Physician Type: HANDP Filed: 08/16/2022 10:23 AM Note Text: HISTORY AND PHYSICAL Corinna Carr 1955 REFERRING PHYSICIAN: Ailyn Carson PA-C CHIEF COMPLAINT: Consult (Colonoscopy consult) HPI: The patient is a 67 year old female referred for endoscopy. Corinna notes a recent change in bowel habits with increased straining and a decrease in caliber of stool Noted some bright red blood with BMs which has resolved. Patient denies any change in bowel habits, weight changes, black tarry stools or abdominal pain. Denies family history of colon issues. The patient NOTES issues with GERD despite taking PPI and carafate, and watching diet. Corinna has undergone prior endoscopy. Most recent colonoscopy and EGD 07/11/[address] Xiong. No concerning findings at that time. Repeat colonoscopy was recommended in 5 years based on a previous history of polyps. PAST MEDICAL HISTORY PAST MEDICAL HISTORY Diagnosis Date Aspiration pneumonia (HCC) 04/2019 [facility] DDD (degenerative disc disease) Depression Diabetes mellitus without mention of complication Fibromyalgia Hyperlipidemia Iron deficiency anemia, unspecified Dr Duong Lupus (HCC) Obesity Vitamin D deficiency 2012 PAST SURGICAL HISTORY PAST SURGICAL HISTORY Procedure Laterality Date ARTHRP KNE CONDYLEANDPLATU MEDIALANDLAT COMPARTMENTS Left 02/25/[address] CARDIAC CATH 2007 no stenosis minimal plaque [...] lumbar fusion S SPINAL CORD STIM/IMPLANTN 01/2014 CURRENT MEDICATIONS Current Outpatient Medications Medication Sig [START ON [...] mouth twice daily with meals. PRN) Insulin [place], Disposable, (PEN NEEDLES) 31 gauge x 1/4 [...] Patient has no known allergies. PERSONAL HISTORY: SOCIAL HISTORY Social History Tobacco Use Smoking status: Former Packs/day: 1.00 Years: 0.50 Pack years: 0.50 Types: Cigarettes Quit date: 04/05/1985 Years since quittin.1 Smokeless tobacco: Never Tobacco comments: Smoked for 6 months total. Vaping Use Vaping Use: [place] (more content not included)... Normal [facility] NURSING PROGon 08-16-2022 NURSING PROG HNO ID: [id number] Author: Heather Mcmillan RN Service: Nursing Author Type: Registered Nurse Type: Nursing Progress Note Filed: 08/16/2022 10:55 AM Note Text: Other: Patient ready for procedure. Patient education completed and patient verbalizes understanding of instructions given. [facility] OPERATIVE NOon 08-16-2022 OPERATIVE NO HNO ID: [id number] Author: Eugenia Vee MD Service: General Surgery Author Type: Physician Type: Operative Report Filed: 08/17/2022 7:33 AM Note Text: [facility] - Operative Report - CORINNA Means : 1955 AGE: 67. SEX: F PATIENT TYPE: O HOSP SV: [facility] LOCATION: [facility] ATTENDING PHYSICIAN: Eugenia Vee MD CSN NUMBER: [id number] DATE OF SURGERY/PROCEDURE: 08/16/2022 INCISION/PROCEDURE START TIME: 1132 INCISION CLOSE/PROCEDURE END TIME: 1202 PREOPERATIVE DIAGNOSIS: Acid reflux; history of colon polyps. POSTOPERATIVE DIAGNOSIS: Mild gastritis, irregular Z-line, very small hiatal hernia and hemorrhoids. SURGEON: Eugenia Vee MD LINE MECHANIC: No Additional Staff SURGERY/PROCEDURE: Esophagogastroduodenoscopy with biopsies and bringing colonoscopy for high-risk patient. ANESTHESIA: Monitored anesthesia care. INDICATIONS: Corinna Carr is a 67-year-old white female. She was found to have a tubular adenoma that was less than 1 cm in size in 2013. Her last colonoscopy was in 2017 and there was no polyps found. She presents for followup surveillance colonoscopy for history of colon polyps. She also notes gastroesophageal reflux symptoms despite PPI use and therefore presents for esophagogastroduodenoscopy. She has been counseled as to the risks of both procedure including, but not limited to infection, bleeding, perforation of GI tract, inability to complete procedures, etc. The patient understands and agrees to proceed. DESCRIPTION OF PROCEDURE: After informed consent was given, patient was brought to the endoscopy suite. Appropriate time-out protocol was done in preprocedure area as well as in the endoscopy suite. The patient's posterior pharynx was sprayed with local anesthetic. A bite block was placed. Patient was given IV anesthesia by the anesthesia provider. The patient was placed in left lateral decubitus position. The endoscope was lubricated and carefully inserted in patient's mouth and advanced into the esophagus. It was then advanced into the stomach, past the pylorus into the first and then the second portion of the duodenum. No masses, polyps, lesions were noted in the 1st or 2nd portion of the duodenum. The endoscope was retracted back in the stomach. There was retained bile in the stomach. Mucosal biopsies of the antrum of stomach were taken using cold grasper forceps. Patient had very mild radial erythematous streaking of the antrum. The retroflexed view into the fundus of the body of stomach revealed no masses, polyps, or lesions. The patient was noted to have a very small hiatal hernia. The endoscope was retracted back into the esophagus. The GE junction appeared very minimally irregular. Because of the patient's complaint, mucosal biopsies were taken using cold grasper forceps of the GE junction. The remainder of the esophagus appeared normal. The endoscope was removed intact. The patient tolerated this portion of the procedure well. The colonoscopy was performed next. The colonoscope was lubricated and carefully inserted in the patient's anus and advanced into the rectum. It was then advanced into the sigmoid colon, then the left colon, past splenic flexure into transverse colon, past hepatic flexure down the right colon to the cecum. The colon cleansing was suboptimal, however, with increased lavage and aspiration of the retained fecal contents, the colonic peck could be visualized, however, this took some time. There was no evidence of any masses, polyps, lesions in the right colon. There was no evidence of any masses, polyps, lesions in the transverse colon. There was no evidence of any masses, polyps, or lesions in the left colon. There was no evidence of any masses, polyps, lesions in the sigmoid colon. There was no evidence of any masses or polyps in the rectum. Retroflexed view in the rectum revealed hemorrhoidal changes, but no active inflammation or bleeding. The endoscope was removed intact. Digital examination revealed no palpable masses. The patient tolerated the procedure well, was brought to recovery room in stable condition. ESTIMATED BLOOD LOSS: Minimal. SPECIMENS: Mucosal biopsies of antrum, stomach, and GE junction. COMPLICATIONS: None. RECOMMENDATIONS: screening colonoscopy in 10 years Eugenia Vee MD LW:[id number] Normal [facility] Basophil percentageOrdered B y: Michael Lackey on 07-23-2022 Creatinine [Mass/Vol] 1.3 mg/dL 0.55-1.02 [facility] Laboratory - Chemistry and C hemistry - challengeOrdered By: Michael Lantiguakim on 07-23-2022 GFR/1.73 sq M.predicted among non-blacks MDRD (S/P/Bld) [Vol rate/Area] 44.0000 mL/min/{1.73_m2} >60 [facility] XR Thoracic spine AP and Lat eral and Swimmerson 01-02-2022 IMPRESSION: No acute bony finding. Degenerative disc disease. Post surgical/post surgical changes. Hose Suspender Cutter: PSCB Transcribe Date/Time: Jan 02 2022 1:35P Dictated by : RANDALL BECKER MD This examination was interpreted and the report reviewed and electronically signed by: RANDALL BECKER MD on Jan 02 2022 1:39PM [facility] DIVISION OF RADIOLOGY * * *Final Report* * * DATE OF EXAM: Jan 01 2022 2:55PM WOX 5261 - XR THORACIC 3V AP/LAT/SWIMMERS / PROCEDURE REASON: Postural kyphosis, unspecified spinal region * * * * Physician Interpretation * * * * Thoracic spine HISTORY: 66 years old Clinical information: Postural kyphosis, unspecified spinal region thoracic spine pain, hx of back surgery 10+ years ago TECHNIQUE: Images: XR THORACIC 3V AP/LAT/SWIMMERS Comparison: None. RESULT: Findings: Epidural stimulator leads extend superiorly with upper aspect at the level of T8 vertebral body. Vertebral bodies intact. Multilevel endplate spurring and mild disc space narrowing. No paraspinal widening. Lumbar posterior fusion hardware is incompletely imaged DIVISION OF RADIOLOGY Provider, [facility]22 * * *Final Report* * * DATE OF EXAM: Jan 01 2022 2:55PM WOX 5261 - XR THORACIC 3V AP/LAT/SWIMMERS / PROCEDURE REASON: Postural kyphosis, unspecified spinal region * * * * Physician Interpretation * * * * Thoracic spine HISTORY: 66 years old Clinical information: Postural kyphosis, unspecified spinal region thoracic spine pain, hx of back surgery 10+ years ago TECHNIQUE: Images: XR THORACIC 3V AP/LAT/SWIMMERS Comparison: None. RESULT: Findings: Epidural stimulator leads extend superiorly with upper aspect at the level of T8 vertebral body. Vertebral bodies intact. Multilevel endplate spurring and mild disc space narrowing. No paraspinal widening. Lumbar posterior fusion hardware is incompletely imaged IMPRESSION IMPRESSION: No acute bony finding. Degenerative disc disease. Post surgical/post surgical changes. Hose Suspender Cutter: PSCB Transcribe Date/Time: Jan 02 2022 1:35P Dictated by : RANDALL BECKER MD This examination was interpreted and the report reviewed and electronically signed by: RANDALL BECKER MD on Jan 02 2022 1:39PM EST [facility] [place] [facility] XR Thoracic spine AP and Lat eral and SwimmersOrdered By: Ccf Provider on 01-02-2022 [facility] [place] [facility] XR Thoracic spine AP and Lat eral and Swimmerson 01-01-2022 Radiology Study observation (narrative) [facility] [place] [facility] GLUCOSE, BLOOD (POC)on 09-22 Glucose [Mass/Vol] 125 mg/dL Abnormal 74 - 99 mg/dL [facility] [place] [facility] Coronavirus 2019on COVID 19 Result SHOW HOST OR HOSTESS Negative Normal Negative for COVID19 (SARS CoV2) by PCR. [facility] Comment on above: Result Comment: This test was developed and its performance characteristics determined by [facility] [place] [facility]'s [facility] [place]. This test has been authorized by FDA under an Emergency Use Authorization (EUA). This test has been validated in accordance with the FDA's Guidance Document Policy for Diagnostics Testing in Laboratories Certified to Perform High Complexity Testing under CLIA prior to Emergency use Authorization for Coronavirus Disease 2019 during the Public Health Emergency issued on June 06, 2019. Performed By: #### C OVID #### [facility] Laboratory [address] [facility] [phone] [facility] [address] [place], [place] [address] COVID 19 Source SHOW HOST OR HOSTESS Nasopharyngeal Swab Normal [facility] Comment on above: Performed By: #### C OVID #### [facility] Laboratory [address] [facility] [phone] [facility] [address] [place], [place] [address] ED NOTEon 01-27-2021 ED NOTE HNO ID: [id number] Author: Charlotte (Rn) Kenisha RN Service: Nursing Author Type: Registered Nurse Type: ED Notes Filed: 05/04/2020 4:55 PM Note Text: Discharge instructions d/w pt at bedside. Stated understanding with no further questions for this nurse. Encouraged f/u with PCP and referring doctors given. Stated understanding. Prescription(S) were given X0. [facility] ED NOTE HNO ID: [id number] Author: Sherly Lockhart (Rn) ALONA Bertrand Service: Nursing Author Type: Registered Nurse Type: ED Notes Filed: 05/04/2020 4:24 PM Note Text: RA pulse Ox with ambulation and coughing 92-93%. [facility] ED NOTE HNO ID: [id number] Author: Elisa HeRn) ALONA Sabillon Service: ? Author Type: Registered Nurse Type: ED Notes Filed: 05/04/2020 3:37 PM Note Text: Seen at [facility] today - did chest xray and told her to come here to get a covid test [facility] ED PROV NOTEon 05-04-2020 ED PROV NOTE HNO ID: [id number] Author: Jhoan Shay) Ceci Service: ? Author Type: Physician Surveyor [employer] Type: ED Provider Notes Filed: 05/04/2020 5:30 PM Note Text: ED Provider Note Patient Name: Corinna Carr SERVICE DATE: 05/04/20 History Patient presents with: Covid19 Concern 65-year-old female presents emergency department after being seen in urgent care in [place]. They did a chest x-ray at the urgent care which patient states was negative but told her to come here for Covid test. She also had a transient episode of a pulse ox reading in the high 80s. Patient here is 100% on room air. Patient states that she has been coughing for the past several days but denies any history of asthma or COPD. Denies any oxygen required in the past. Denies any fever or chills. Denies any known sick contacts. History provided by: Patient dredge hand used: No PAST MEDICAL HISTORY Diagnosis Date - Aspiration pneumonia (HCC) 04/2019 [facility] - DDD (degenerative disc disease) - Depression - Diabetes mellitus without mention of complication - Fibromyalgia Dx by Dr Storm - Hyperlipidemia - Iron deficiency anemia, unspecified Dr Duong - Lupus (HCC) - Obesity - Vitamin D deficiency 2012 PAST SURGICAL HISTORY Procedure Laterality Date - CARDIAC CATH 2007 no stenosis minimal plaque - CARPAL TUNNEL bilateral - COLONOSCOP W/ OR W/O BRSH SPEC 08/15/07 Repeat in -2017 - COLONOSCOP W/ OR W/O BRS SPEC 07/11/2016 Colonoscopy - COLONOSCOP W/ OR W/O [facility] SPEC 12/24/2019 Colonoscopy - COLONOSCOPY AND POLYPECTOMY 07/27/13 TA x 2, hyperplastic x 5. Repeat in 3y. - EGD W/O BRSH SPECIMEN W/BX 08/15/07 - EGD W/O OR W/BRUSH/WASH 02/01/2010 EGD - EGD W/O OR W/BRUSH/WASH 07/27/13 gastritis - EGD W/O OR W/BRUSH/WASH 07/11/2016 EGD - EGD W/O OR W/BRUSH/WASH 12/24/2019 EGD - LIGATE FALLOPIAN TUBE 1983 Tubal ligation - LUMBAR DISCOGRAM - PAST SURGICAL HISTORY OF 2001 RIGHT ANKLE ORIF - PAST SURGICAL HISTORY OF low back injections - PAST SURGICAL HISTORY OF 04/30/2011 Anterior lumbar interbody fusion L4-5 L5-S1 - PAST SURGICAL HISTORY OF 05/30/11 Posterior lumbar fusion - REMOVAL GALLBLADDER 1997 Cholecystectomy - REPAIR ROTATOR CUFF,ACUTE 12/31/08 Rotator cuff repair, right - S SPINAL CORD STIM/IMPLANTN 01/2014 - TOTAL KNEE REPLACEMENT Left 02/25/[address] FAMILY HISTORY Problem Relation Age of Onset - Cancer Father metastatic - Hypertension Mother - Diabetes Maternal Grandmother - Heart Maternal Grandfather Social History Tobacco Use - Smoking status: Former Smoker Packs/day: 1.00 Years: 0.50 Pack years: 0.50 Types: Cigarettes Quit date: 04/05/1985 Years since quittin.1 - Smokeless tobacco: Never Used - Tobacco comment: Smoked for 6 months total. Substance and Sexual Activity - Alcohol use: No - Drug use: No - Sexual activity: Never control/protection: Tubal Ligation Comment: ALLERGIES No Known Allergies Review of Systems Constitutional: Negative. HENT: Negative. Respiratory: Positive for cough. Negative for shortness of breath and wheezing. Cardiovascular: Negative. Gastrointestinal: Negative. Genitourinary: Negative. Musculoskeletal: Negative for back pain and neck pain. Skin: Negative for rash and wound. Neurological: Negative for dizziness, syncope, weakness and light-headedness. Psychiatric/Behavioral: Negative. Physical Exam BP 126/37 Pulse 79 Temp (Src) 97.2 (Temporal) Resp 18 Ht 5' 5 (1.65m) Wt 226 lb (102.5kg) SpO2 97% LMP 12/07/2007 BMI 37.61 kg/(m2). O2 Therapy: Room Air Physical Exam Vitals and nursing note reviewed. Constitutional: General: She is not in acute distress. Appearance: Normal appearance. She is normal weight. She is not ill-appearing or toxic-appearing. HENT: Head: Atraumatic. Nose: Nose normal. Cardiovascular: Rate and Rhythm: Normal rate. Pulmonary: Effort: Pulmonary effort is normal. No respiratory distress. Breath sounds: No wheezing. Comments: Dry persistent cough on exam. Lung angel clear. No respiratory distress or accessory muscle use. Musculoskeletal: General: No swelling or tenderness. Normal range of motion. Skin: General: Skin is warm. Capillary Refill: Capillary refill takes less than 2 seconds. Neurological: General: No focal deficit present. Mental Status: She is alert and oriented to person, place, and time. Psychiatric: Mood and Affect: Mood normal. Behavior: Behavior normal. Thought Content: Thought content normal. Judgment: Judgment normal. Diagnostic Testing ED Labs Ordered and Reviewed - No data to display Procedures ED Course / Clinical Impression Clinical Impressions as of May 04 1728 Advice given about COVID-19 virus infection Suspected COVID-19 virus infection MDM / Disposition / Plan MDM Clinically and hemodynamically stable at time of discharge. With ambulation patient's pulse ox ranged from 93-95. Patient will be discharged home with recommendations for a pulse ox monitor. Patient states she has a pulse ox monitor at home and will monitor her pulse ox particularly with activity. Advised continue taking xdey-gsr-ydxywif medications to help with symptoms and to return here immediately if symptoms change or worsen. At this time patient is not in respiratory distress and does not require further evaluation, testing or admission to the hospital. Clinically patient does not have a PE. Patient is not having any chest pain, is afebrile, has a pulse of 79 and a pulse ox at rest ranging from 97-100 and with activity 92-95. Advised to return here if pulse ox drops below 90 for any extended period of time. The patient was DISCHARGED: Counseled patient regarding suspected diagnosis AND need for follow-up. Discharged home with verbal and written instructions. They were instructed to return as needed for persistent or worsening symptoms or any new concerns. Condition at time of disposition: stable SIGNATURE: JJ Perez (Pa) 05/04/20 1730 Normal [facility] XR Chest PA and Lateralon IMPRESSION: No acute radiographic abnormality. Hose Suspender Cutter: PSCYojana Transcribe Date/Time: May 04 2020 12:58P Dictated by : ISH TAYLOR MD This examination was interpreted and the report reviewed and electronically signed by: ISH TAYLOR MD on May 04 2020 1:00PM [facility] DIVISION OF RADIOLOGY * * *Final Report* * * DATE OF EXAM: May 04 2020 12:47PM WOX 5291 - XR CHEST 2V FRONTAL/LAT / PROCEDURE REASON: Cough * * * * Physician Interpretation * * * * EXAMINATION: CHEST RADIOGRAPH (2 VIEW FRONTAL & LATERAL) CLINICAL HISTORY: Cough MQ: XC2_6 EXAM DATE/TIME: 05/04/2020 12:47 PM COMPARISON: 11/10/2019 RESULT: Lines, tubes, and devices: None. Lungs and pleura: No consolidation. No lung mass. No pleural effusion. No pneumothorax. Cardiomediastinal silhouette: Stable cardiomediastinal silhouette. Bones and soft tissues: Unremarkable. Neurostimulator wires overlie the mid dorsal region Partially visualized lumbar pedicle plate and screw device DIVISION OF RADIOLOGY Provider, [facility] - 05/04/2020 * * *Final Report* * * DATE OF EXAM: May 04 2020 12:47PM WOX 5291 - XR CHEST 2V FRONTAL/LAT / PROCEDURE REASON: Cough * * * * Physician Interpretation * * * * EXAMINATION: CHEST RADIOGRAPH (2 VIEW FRONTAL & LATERAL) CLINICAL HISTORY: Cough MQ: XC2_6 EXAM DATE/TIME: 05/04/2020 12:47 PM COMPARISON: 11/10/2019 RESULT: Lines, tubes, and devices: None. Lungs and pleura: No consolidation. No lung mass. No pleural effusion. No pneumothorax. Cardiomediastinal silhouette: Stable cardiomediastinal silhouette. Bones and soft tissues: Unremarkable. Neurostimulator wires overlie the mid dorsal region Partially visualized lumbar pedicle plate and screw device IMPRESSION IMPRESSION: No acute radiographic abnormality. Hose Suspender Cutter: ARABELLA Transcribe Date/Time: May 04 2020 12:58P Dictated by : ISH TAYLOR MD This examination was interpreted and the report reviewed and electronically signed by: ISH TAYLOR MD on May 04 2020 1:00PM EST [facility] [place] [facility] Radiology Study observation (narrative) [facility] [place] [facility] XR Chest PA and LateralOrder ed By: Ccf Provider on 05-04-2020 [facility] [place] [facility] Glucose M[place]on 12-24-2019 Glucose [Mass/Vol] 119 mg/dL High 70-99 [facility] Comment on above: Result Comment: ALONA Rhodes OTIFIED [place] [address] Performed By: #### L GLMT #### [place] [address] Surgical Tissue Examon 12-23 Surgical Tissue Exam Test performed at [place] [address] NAME: CORINNA CARR REQUESTING: EUGENIA VEE MD FINAL DIAGNOSIS: STOMACH, ANTRUM, BIOPSY - REACTIVE GASTROPATHY, CHRONIC GASTRITIS, FOCAL GRANULATION TISSUE, AND MILD ACTIVITY. ALSO PRESENT ARE FRAGMENTS OF ACUTELY INFLAMED SQUAMOUS TISSUE. IMMUNOHISTOCHEMICAL STAIN FOR HELICOBACTER PYLORI IS NEGATIVE FOR MICROORGANISMS. SEE COMMENT. COMMENT: An immunostain for keratin is negative for an infiltrate and PAX 5 stain highlights few small B cells, favor reactive. Dr. Hailey Davidson reviewed the case and agrees with the diagnosis. Laboratory Developed Test (LDT) Disclaimer: Positive and negative controls stain appropriately. Performance characteristics of immunohistochemical tests have been determined by [facility]'s Department of Pathology and Laboratory Medicine in a manner consistent with CLIA requirements. One or more of these tests have not been cleared or approved by the FDA. [facility] is regulated under CLIA as qualified to perform high-complexity testing. These tests are useful for clinical purposes. They should not be regarded as investigational or for research. OPERATIVE PROCEDURE: EGD with biopsy CLINICAL INFORMATION: Anemia GROSS DESCRIPTION: Antrum Received in formalin labeled antrum are multiple irregular martinez soft tissue fragments aggregating to 0.3 x 0.2 x 0.1 cm. The specimen is submitted entirely in cassette A. CHRISTIAN/lidia QURESHI M.D. PATHOLOGIST (Electronic signature on file) Signed out: 12/28/2019 16:56 PRINTED: 12/28/2019 Page 1 of 1 Normal [facility] Comment on above: Performed By: #### S URG #### [place] [address] Coronavirus 0 COVID 19 Result SHOW HOST OR HOSTESS Negative Normal [facility] Comment on above: Result Comment: Nega tive for COVID19 (SARS CoV2) by PCR. This test was developed and its performance characteristics determined by [facility] Pathology and Laboratory Medicine [place]. This test has been authorized by [facility] under an Emergency Use Authorization (EUA). This test has been validated in accordance with the FDA's Guidance Document Policy for Diagnostics Testing in Laboratories Certified to Perform High Complexity Testing under CLIA prior to Emergency use Authorization for Coronavirus Disease 2019 during the Public Health Emergency issued on June 06, 2019. Performing Laboratory: [facility] [place] [facility] [employer] [place] [id number] Performed By: #### C D19X #### [place] [address] Coronavirus 0 COVID 19 Result SHOW HOST OR HOSTESS Negative Normal [facility] Comment on above: Result Comment: Nega tive for COVID19 (SARS CoV2) by PCR. This test was developed and its performance characteristics determined by [facility] Pathology and Laboratory Medicine [place]. This test has been authorized by FDA under an Emergency Use Authorization (EUA). This test has been validated in accordance with the FDA's Guidance Document Policy for Diagnostics Testing in Laboratories Certified to Perform High Complexity Testing under CLIA prior to Emergency use Authorization for Coronavirus Disease 2019 during the Public Health Emergency issued on June 06, 2019. Performing Laboratory: [facility] [place] [facility] [employer] [address] [place] [id number] Performed By: #### C D19X #### [facility] [address] [place], [place] [address] .Auto Diffon 08-30-2017 Basophils Auto #/vol (Bld) 0.00 10 3/mcL Normal 0.00-0.19 [facility] ([place]) Comment on above: Performed By: #### C BC, ADIFF, ANEU, GFR, BMP ####[address] [place], [place] [address] Basophils/100 WBC Auto (Bld) 0.4 % Normal 0.0-2.5 [facility] ([place]) Comment on above: Performed By: #### C BC, ADIFF, ANEU, GFR, BMP ####[address] [place], [place] [address] Eosinophils 0.80 10 3/mcL High 0.00-0.40 [facility] ([place]) Comment on above: Performed By: #### C BC, ADIFF, ANEU, GFR, BMP ####[address] [place], [place] [address] Eosinophils/100 leukocytes 6.5 % Normal 0.0-7.0 [facility] ([place]) Comment on above: Performed By: #### C BC, ADIFF, ANEU, GFR, BMP ####[address] [place], [place] [address] Lymphocytes 1.80 10 3/mcL Normal 0.77-3.85 [facility] ([place] Comment on above: Performed By: #### C BC, ADIFF, ANEU, GFR, BMP ####[address] [place], [place] [id number] Lymphocytes/100 leukocytes 13.8 % Normal 10.0-50.0 [facility] ([place]) Comment on above: Performed By: #### C BC, ADIFF, ANEU, GFR, BMP ####Chris [address] [place], [place] [address] Monocytes 0.70 10 3/mcL Normal 0.15-1.00 [facility] ([place]) Comment on above: Performed By: #### C BC, ADIFF, ANEU, GFR, BMP ####Chris [address] [place], [place] [address] Monocytes/100 leukocytes 5.5 % Normal 1.7-13.0 [facility] ([place] Comment on above: Performed By: #### C BCSWAPNA ANEU, GFR, BMP ####Chris [address] [place], [place] [address] Neutrophils/100 WBC Auto (Bld) 73.8 % Normal 37.0-80.0 [facility] ([place] Comment on above: Performed By: #### C BC, ADSARATH, ANEU, GFR, BMP ####Chris [address] [place], [place] [address] .GFRon 08-30-2017 eGFR (non-black) mL/min/{1.73_m2} Normal [facility] ([place]) Comment on above: Result Comment: GFR Population mean for , Non- Americans Ages 20-29 = 116 mL/min/1.73 sq.m. Ages 30-39 = 107 mL/min/1.73 sq.m. Ages 40-49 = 99 mL/min/1.73 sq.m. Ages 50-59 = 93 mL/min/1.73 sq.m. Ages 60-69 = 85 mL/min/1.73 sq.m. Ages 70+ = 75 mL/min/1.73 sq.m.Chronic Kidney Disease: Less than 60 mL/min/1.73 square metersEnd Stage Renal Disease: Less than 15 mL/min/1.73 square meters Performed By: #### C BC, SWAPNA, ANEU, GFR, BMP ####Chris [address] [place], [place] [address] eGFR (non-black) 98 ml/min/1.73sqm Normal [facility] ([place]) Comment on above: Result Comment: GFR Population mean for , Non- Americans Ages 20-29 = 116 mL/min/1.73 sq.m. Ages 30-39 = 107 mL/min/1.73 sq.m. Ages 40-49 = 99 mL/min/1.73 sq.m. Ages 50-59 = 93 mL/min/1.73 sq.m. Ages 60-69 = 85 mL/min/1.73 sq.m. Ages 70+ = 75 mL/min/1.73 sq.m.Chronic Kidney Disease: Less than 60 mL/min/1.73 square metersEnd Stage Renal Disease: Less than 15 mL/min/1.73 square meters Performed By: #### C BC, ADIFF, ANEU, GFR, BMP ####Chris [address] [place], [place] [address] .NEUABSon 08-30-2017 Neutrophils 9.50 10 3/mcL High 2.85-6.16 [facility] ([place] Comment on above: Performed By: #### C BC, ADIFF, ANEU, GFR, BMP ####Chris [address] [place], [place] [address] BMPon 08-30-2017 Electrolyte Balance 9.0 mEq/L Normal [facility] ([place] Comment on above: Performed By: #### C BC, ADIFF, ANEU, GFR, BMP ####Chris [address] [place] [address]87 Sodium 141 mmol/L Normal 136-146 [facility] ([place] Comment on above: Performed By: #### C BC, ADIFF, ANEU, GFR, BMP ####Chris [address] [place], [place] [address] BUN/Creatinine Ratio 15 ratio Normal 7-27 [facility] ([place] Comment on above: Performed By: #### C BC, ADIFF, ANEU, GFR, BMP ####Chris [address] [place], [place] [address] Calcium 9.3 mg/dL Normal 8.4-10.2 [facility] [place] Comment on above: Performed By: #### C BC, ADIFF, ANEU, GFR, BMP ####Chris [address] [place], [place] [address] Chloride 106 mmol/L Normal 98-107 [facility] ([place] Comment on above: Performed By: #### C BC, ADIFF, ANEU, GFR, BMP ####Chris [address] [place], [place] [address] CO2 26 mmol/L Normal 23-31 [facility] ([place] Comment on above: Performed By: #### C BC, ADIFF, ANEU, GFR, BMP ####Chris [address] [place], [place] [address] Creatinine 0.7 mg/dL Normal 0.6-1.2 [facility] [place] Comment on above: Performed By: #### C BC, ADIFF, ANEU, GFR, BMP ####Chris [address] [place], [place] [address] Glucose mass conc 91 mg/dL Normal 80-115 [facility] [place] Comment on above: Performed By: #### C BC, ADIFF, ANEU, GFR, BMP ####Chris [address] [place], [place] [address] Potassium molar conc 3.4 mmol/L Low 3.5-5.1 [facility] ([place] Comment on above: Performed By: #### C BC, ADIFF, ANEU, GFR, BMP ####Chris [address] [place], [place] [address] Urea nitrogen 10.6 mg/dL Normal 7.0-18.0 [facility] ([place] Comment on above: Performed By: #### C BC, ADIFF, ANEU, GFR, BMP ####Chris [address] [place], [place] [address] CBCon 08-30-2017 Erythrocyte distribution width Auto Ratio (RBC) 17.6 % High 11.5-14.5 [facility] [place] Comment on above: Performed By: #### C BC, ADIFF, ANEU, GFR, BMP ####Chris [address] [place], [place] [address] Erythrocytes (RBC) 3.94 10 6/mcL Low 4.20-5.40 [facility] ([place]) Comment on above: Performed By: #### C BC, ADIFF, ANEU, GFR, BMP ####Chris [address] [place], [place] [address] Hematocrit (HCT) 31.5 % Low 37.0-47.0 [facility] ([place] Comment on above: Performed By: #### C BC, ADIFF, ANEU, GFR, BMP ####Chris [address] [place], [place] [address] Hemoglobin mass conc (Bld) 9.7 G/dL Low 12.0-16.0 [facility] ([place] Comment on above: Performed By: #### C BC, ADIFF, ANEU, GFR, BMP ####Chris [address] [place], [place] [address] MCH 24.7 pg Low 27.0-31.2 [facility] [place] Comment on above: Performed By: #### C BC, ADIFF, ANEU, GFR, BMP ####Chris [address] [place], [place] [address] MCHC mass conc (RBC) 31.0 G/dL Low 33.0-37.0 [facility] ([place] Comment on above: Performed By: #### C BC, ADIFF, ANEU, GFR, BMP ####Chris [address] [place] [id number] MCV 79.7 fL Low 80.0-94.0 [facility] [place] Comment on above: Performed By: #### C BC, ADIFF, ANEU, GFR, BMP ####Chris [address] [place] [address] Platelet mean volume (PMV) 7.5 fL Normal 7.4-10.4 [facility] [place] Comment on above: Performed By: #### C BC, ADIFF, ANEU, GFR, BMP ####Chris [address] [place], [place] [address] Platelets 339 10 3/mcL Normal 130-400 [facility] [place] Comment on above: Performed By: #### C BC, ADIFF, ANEU, GFR, BMP ####Chris [address] [place], [place] [address] WBC (Leukocytes) 12.80 10 3/mcL High 4.60-10.80 [facility] ([place] Comment on above: Performed By: #### C BC, ADIFF, ANEU, GFR, BMP ####Chris [address] Emergency Room Note on 05-25-2018 [facility] Note Normal [facility] [place] Pat Eduon 08-30-2017 Pat Edu Normal [facility] [place] Patient Summary Documentson 08-30-2017 Patient Summary Documents Normal [facility] [place] DISCHARGE SUMMARYon 03-12-20 DISCHARGE SUMMARY [facility] CASEY JOY SUMMARY NAME NUMBER SEX AGE ADMIT DISC TYPE MED.RECORD# MARNIE JORDAN [id number] F 62 02/25/17 02/28/17 I/P [id number] ROOM:310 DATE OF :1955 PHYSICIAN NO.:[id number] PHYSICIAN NAME:E-SIGN DR. ERIC ST M.D. PHYSICIAN:KARTIK POLLACK MD ADMITTING DIAGNOSIS: (1) Left knee primary osteoarthritis. (2) Diabetes mellitus. (3) Low iron. (4) Hypercholesterolemia. (5) Lupus. (6) Degenerative disk disease. (7) Fibromyalgia. (8) Depression. (9) Bleeding in stomach. FINAL DIAGNOSIS: (1) Left knee primary osteoarthritis. (2) Diabetes mellitus. (3) Low iron. (4) Hypercholesterolemia. (5) Lupus. (6) Degenerative disk disease. (7) Fibromyalgia. (8) Depression. (9) Bleeding in stomach. (10) Status post left total knee arthroplasty. HOSPITAL COURSE: The patient had an ongoing history of left knee pain. After failing conservative measures, the patient opted to proceed with left total knee arthroplasty and underwent the above stated procedure on 02/25/2017. She did receive perioperative antibiotics. Intraoperative course was uneventful. For details, please dictated operative report. The patient was placed in knee-high TEDs and bilateral SCDs. She remained stable in recovery and was admitted to the third floor at [facility] and participated in physical therapy and did very well. Pain was well managed with the use of IV and p.o. pain medications. She began receiving Xarelto therapy postop day #1 for DVT prophylaxis. Medicine was consulted for postoperative medical management. For detail of these interactions, please refer to documents contained with the electronic medical record. Her stay was uneventful. She remained stable. She was discharged on postoperative day #2 to assisted facility in stable condition. DISPOSITION/MEDICATIONS ON DISCHARGE/DISCHARGE INSTRUCTIONS/ PLAN: She will continue with physical therapy. She will continue with Valium 2 mg one p.o. q.12h., aspirin 325 mg one p.o. b.i.d. for DVT prophylaxis, Percocet 5/325 one to two p.o. q4h p.r.n. pain and Oramorph 15 mg one p.o. b.i.d. for long-acting pain control. Follow up in the office in one week for reassessment of the left knee. D: Jose Farr PA-C TD: 09:22 JOB #: [id number] Electronically signed by: Not Currently Signed Transcribed by: tristan 03/12/2017 06:03 DISCHARGE SUMMARY MARNIE JORDAN 1 Normal [facility] HISTORY AND PHYSICALon 03-11 HISTORY AND PHYSICAL [facility] H ISTORY & PHYSICAL NAME NUMBER SEX AGE DISCADMIT TYPE MED.RECORD# CORINNA CARR [id number] F [id number] ROOM: DATE OF :1955 PHYSICIAN NO.: PHYSICIAN NAME: PHYSICIAN:JOSE FARR PA-C HISTORY This is Jose Farr PA-C, dictating a preoperative history and physical examination per Dr. Eric St. PRIMARY CARE PROVIDER: Jaki Verdugo MD PROCEDURE TYPE: Left total knee arthroplasty. PROCEDURE DATE: February 25, 2017 ATTENDING PHYSICIAN: Eric St MD CHIEF COMPLAINT/HISTORY OF PRESENT ILLNESS: This is a 62-year-old female. Chief complaint of left knee pain that has been ongoing and progressive worsening over the past 8-10 years. She has been seeing Dr. Haq. Was scheduled for a left total knee replacement in September of 2016, but, due to an upcoming dental procedure/surgery, it was postponed and cancelled. The patient had a full dental extraction October 11 getting dentures. The left knee pain is constant, worse with stairs and walking any distance, sitting for an extended period of time, and driving. Sitting, resting, and elevating the leg can help. She has difficulty with bathing, showering, housework, shopping, leisure activities like taking walks, difficulty driving. Generally takes short trips. Used to love taking long walks, but she is very restricted due to the pain. She stumbled. She is using a cane occasionally for stability and balance. She feels unsafe on walks, going to her grandchildren's sporting events, or school programs. Conservative measures have included rest, ice, heat, elevation. She has had somewhere between 5-6 cortisone injections through [facility], [facility] over the last 6-7 years that only provided minimal relief at best. She has attempted weight loss. Has lost approximately 10 pounds. She did physical therapy over the past summer of 2016. She continues to work on home exercises without any appreciable improvement. She had 2 series of 3 gel injections through the [facility] [place] [facility] without any significant improvement. She has tried qlol-eje-zyavquh oral pain medications. She has not had any previous surgeries on this knee. She is becoming increasingly frustrated with the persistence of the pain and feels very debilitated. After failing conservative measures, discussing and reviewing all treatment options with Dr. Eric St, the patient does wish to proceed with a left total knee arthroplasty at this time. PAST MEDICAL HISTORY: Significant for: (1) Arthritis. (2) Diabetes mellitus. (3) Low iron. (4) Hypercholesterolemia. (5) Lupus. (6) Degenerative disk disease. (7) Fibromyalgia. (8) Depression. (9) Bleeding in stomach. PAST SURGICAL HISTORY: (1) Cholecystectomy in 1989 at [facility]. (2) Tubal ligation in 1982, Serafin. (3) Carpal tunnel release in 1988 and 1989, Serafin. (4) Right acromioplasty with rotator cuff repair December of 2008, Dr. Roby Preston. (5) Anterior lumbar interbody fusion, Dr. Jose Hartley, [facility], April of 2011. (6) Posterior lumbar interbody fusion May of 2011, Dr. Jose Hartley, [facility]. (7) Open reduction internal fixation right ankle. (8) Right ankle hardware removal. (9) Spinal cord stimulator. ASSISTIVE DEVICES: Patient admits to glasses, full dentures, upper and lower plates. Denies hearing aids. MEDICATIONS: Current medications include: (1) Bupropion HCl 150 mg 1 p.o. daily. (2) Fluoxetine 20 mg 1 p.o. daily. (3) Gabapentin 300 mg 1 p.o. 3 times a day. (4) Glucosamine/chondroitin 1 p.o. b.i.d. (5) Humalog KwikPen 100 units per mL, inject 5 units subcutaneously t.i.d. with meals. (6) Iron IV infusion 1-2 times per year. (7) Lantus SoloSTAR 100 units per mL, inject 64 units subcutaneously nightly. (8) Meloxicam 7.5 mg 1 p.o. daily. (9) Metformin HCl 500 mg 1 p.o. b.i.d. (10) Omeprazole 40 mg 1 p.o. daily. (11) Plexus BioCleanse 1 p.o. daily. (12) Pravastatin sodium 20 mg 1 p.o. daily. (13) Turmeric curcumin 500 mg 1 p.o. daily. (14) Vitamin D3 1000 units 1 p.o. daily. ALLERGIES: No known drug allergies. HISTORY & PHYSICAL CORINNA CARR [address] [place] [address] HISTORY & PHYSICAL NAME NUMBER SEX AGE ADMIT DISC TYPE MED.RECORD# CORINNA CARR [id number] F [id number] ROOM: DATE OF :1955 PHYSICIAN NO.: PHYSICIAN NAME: PHYSICIAN:JOSE FARR PA-C SOCIAL HISTORY: Patient is a former smoker. Denies alcohol use. Denies illicit drug use. REVIEW OF SYSTEMS: Documented in the [facility] medical history sheet. Please refer to attached document. PHYSICAL EXAMINATION GENERAL APPEARANCE: Patient is alert and oriented x3, in no acute distress at rest, breathing easily without respiratory distress. VITAL SIGNS: Height 65 inches, weight 223 pounds, BMI 37.1, blood pressure 140/68, pulse 88, respirations 16, temperature 98.6. HEENT: Head: Normocephalic, atraumatic. Eyes: PERRLA, EOMI, sclerae anicteric, conjunctivae without injection. Ears: Auditory acuity grossly intact bilaterally. Nose: Bilateral patent nares without tenderness or drainage. Throat: Pharynx clear without erythema or exudate. Tongue and uvula midline. Buccal mucosa pink and moist. NECK: Supple without adenopathy, JVD, carotid bruit, masses, or tenderness. CHEST: Symmetrical, nontender to palpation, AP diameter within normal limits. LUNGS: Clear to auscultation bilaterally without wheezes, rales, or rhonchi. HEART: Regular rate and rhythm without murmurs, rubs, or gallops appreciated at this time. ABDOMEN: Soft, nondistended, normoactive bowel sounds x4 without tenderness. EXTREMITIES/MUSCULOSKELETAL : She is able to stand and walk with a limp with pain coming from the left knee. Left knee has severe patellofemoral pain and crepitus. Left knee has motion 0-115 degrees. Left knee is ligamentously stable. She has joint line tenderness medial and lateral left knee. Small effusion of the left knee. No calf pain or swelling. Negative Homans sign. Distal pulses and sensation are normal. Grade 5 strength at the knee. No hip pain with rotation. No pain with axial loading of the hips. No pain of the lumbar spine. No severe pain with Franc or Jaylen testing. NEUROLOGICAL: Cranial nerves 2-12 grossly intact without any focal, sensory, or motor deficits noted. DIAGNOSTIC DATA: X-rays of the left knee from the [facility] [place] [facility] dated October 10, 2016, are with medial lateral bone spurring, medial and lateral joint space fairly preserved, severe patellofemoral arthritis, complete loss of lateral joint space, lrdk-hh-aqhm contact, sclerosis of the femur, and patella bone spurring. IMPRESSION: 1. Left knee primary osteoarthritis, most severe at the patellofemoral joint. 2. Overweight. 3. Diabetes mellitus. 4. Low iron. 5. Hypercholesterolemia. 6. Lupus. 7. Degenerative disk disease. 8. Fibromyalgia. 9. Depression. HISTORY & PHYSICAL CORINNA CARR [address] [place] [address] HISTORY & PHYSICAL NAME NUMBER SEX AGE DISCADMIT TYPE MED.RECORD# CORINNA CARR [id number] F [id number] ROOM: DATE OF :1955 PHYSICIAN NO.: PHYSICIAN NAME: PHYSICIAN:JOSE FARR PA-C 10. Bleeding in stomach. PLAN: Dr. Eric St did discuss and review with the patient all treatment options including surgical versus nonsurgical. At this time, the patient does wish to proceed with a left total knee arthroplasty. Potential risks, benefits, and complications of this procedure were reviewed in detail including, but not limited to, , infection, nerve and blood vessel damage, persistent pain, numbness, tingling, paresthesias, blood clot, pulmonary embolism, and the requirement of possible further surgery. The patient expressed full understanding and has no further questions for the doctor, does agree to proceed with the above-stated procedure, and signed the appropriate surgery consent form. D: JOSE FARR PA-C TD: 02/11/2017 10:29:12 JOB #: [id number] E-sign Jose CUEVA Orthopedics 03/11/17 09:[address] ERIC ST M.D. Orthopedics Cosigned on 03/11/17 at 10:01 Transcribed by: NMT 02/11/2017 10:29:12 Copy for: YORDAN DODSON via fax Copy for: KAREN CHE DR via fax Copy for: KARTIK POLLACK MD Update to H&P: [] No Changes: I have examined the patient and reviewed the H&P and there are no changes. [] As previously dictated with the following changes: PHYSICIAN SIGNATURE: TIME: DATE: HISTORY & PHYSICAL SHORTCORINNA 3 Normal [facility] PROGRESS NOTESon 03-11-2017 PROGRESS NOTES [facility] [place] OGRESS NOTES NAME NUMBER SEX AGE DISCADMIT TYPE MED.RECORD# SHORT, CORINNA [id number] F 62 02/25/2017 I/P [id number] ROOM:310 DATE OF :1955 PHYSICIAN NO.:[id number] PHYSICIAN NAME: PHYSICIAN:JOSE FARR PA-C DATE OF SERVICE: 02/27/2017 ATTENDING PHYSICIAN: Dr. Eric St. SUBJECTIVE: The patient is resting comfortably in bed during the exam. No adverse events overnight. She admits that yesterday she had some cramping/spasming in the operative left extremity, but it seems to be much better this morning. The pain has been somewhat controlled, but she still persists with pain. She does have a history of chronic low back pain with chronic narcotic use. She denies chest pain, shortness of breath, dizziness, or calf pain. She has been doing well overall. She is hoping to be discharged to a assisted facility. She has received insurance approval. OBJECTIVE: Vitals: Pulse 81, respirations 16, blood pressure 140/66, temperature 98.1, SpO2 of 94% room air. Patient is alert and oriented x3 in no acute distress at rest, breathing easily without respiratory distress. Inspection of left knee reveals a dressing that is clean, dry, and intact. Negative Aurelio bilaterally without signs of DVT. Sensation intact to light touch bilateral lower extremities. Patient is able to actively plantar and dorsiflex bilateral feet against resistance. Neurovascularly intact. Pedal pulses present and equal bilaterally. DIAGNOSTIC DATA: White blood cell count 13.1, hemoglobin 9.7, hematocrit 30.3, platelet count 202,000. ASSESSMENT/PLAN: 1. Status post left total knee arthroplasty, postoperative day #2. 2. Continue Percocet and Oramorph as prescribed for pain. 3. Deep venous thrombosis prophylaxis: Bilateral TEDs, SCDs, continue Xarelto therapy while inpatient and transition to aspirin 325 mg 1 p.o. b.i.d. as an outpatient. 4. Continue PT/OT, weightbearing as tolerated right lower extremity with a walker. 5. Continue to hold all rheumatologic medications in the postoperative period as long as okay with flight agent. 6. Drop in hemoglobin and hematocrit, asymptomatic without indication for transfusion. 7. Leukocytosis, afebrile, improved from yesterday without acute signs of infection, likely resulting from pre and postoperative Decadron versus acute stress response. 8. Encourage incentive spirometry. 9. Continue postoperative medical management per hospitalist group. 10. Patient is orthopaedically stable and okay for discharge to assisted facility when she is cleared medically and with insurance approval. Followup in the office in 1 week for reassessment. D: JOSE FARR PA-C TD: 02/27/2017 09:10:56 JOB #: [id number] E-sign Jose CUEVA PROGRESS NOTES CORINNA CARR 1 [facility] PROGRESS NOTES NAME NUMBER SEX AGE ADMITDISC TYPE MED.RECORD# CORINNA CARR [id number] F 62 02/25/2017 I/P [id number] ROOM:310 DATE OF :1955 PHYSICIAN NO.:[id number] PHYSICIAN NAME: PHYSICIAN:JOSE FARR PA-C Orthopedics 03/11/17 09:[address] ERIC ST M.D. Orthopedics Cosigned on 03/11/17 at 10:03 Transcribed by: MELLISSA 02/27/2017 09:10:56 Copy for: YORDAN DODSON via fax Copy for: KAREN CHE DR via fax Copy for: KARTIK POLLACK MD PROGRESS NOTES CORINNA CARR 2 [facility] OPERATIVE PROCEDURESon 03-04 OPERATIVE PROCEDURES [facility] O PERATIVE REPORT NAME NUMBER SEX AGE ADMIT DISC TYPE MED.RECORD# CORINNA CARR [id number] F 62 02/25/2017 I/P [id number] ROOM:310 DATE OF :1955 PHYSICIAN NO.:[id number] PHYSICIAN NAME: PHYSICIAN:ERIC ST DATE OF SURGERY: 02/25/2017 SURGEON: Eric St MD LINE MECHANIC: Jose Farr PA-C and ANALISA Ortega ANESTHESIOLOGIST: Eliud Borjas MD ANESTHETIC: Duramorph spinal. PREOPERATIVE DIAGNOSIS: Left knee severe primary osteoarthritis. POSTOPERATIVE DIAGNOSIS: Left knee severe primary osteoarthritis. OPERATION PERFORMED: Left total knee replacement, custom cemented ConforMIS knee. COMPLICATIONS: None. ESTIMATED BLOOD LOSS: FINDINGS: Intraoperative findings were consistent with her history, physical, radiographic examination. She had severe arthritis of the knee. She underwent standard custom ConforMIS total knee replacement. We used her premade tibia and femoral components, cemented on. We used a 6A insert for the polyethylene and a 32 x 6 symmetric patellar component. This reproduced her knee anatomy nicely. We did do a lateral release. Patella tracked nicely. Surgical 1st cosmetic sales assistant, physician cosmetic sales assistant, was critical throughout the entire procedure. She helped with patient positioning, holding of the limb, holding of retractors. She helped with exposure throughout. She helped with positioning and alignment of our cutting guides as well as components with rotation and sizing as well, wound closure, bandage application, and patient transfer. Without surgical 1st cosmetic sales assistant, physician cosmetic sales assistant, surgical time would have been increased. Surgical time could have been less optimal. INDICATIONS: The patient is a 62-year-old female with a longstanding history of left knee pain. Due to failed conservative measures and x-ray findings consistent with significant arthritis, she did wish to have a total knee replacement. Appropriate informed consent was obtained and signed. DESCRIPTION OF OPERATION: The patient was taken to the operating room and transferred to the OR table in a supine position. Head was controlled by Anesthesia. Duramorph spinal had previously been given. A Pierce catheter was placed. Appropriate time-outs were performed. Right lower extremity had a NORAH hose and SCD on throughout. Left lower extremity had a well-padded tourniquet to the left upper thigh. Left lower extremity was examined and found to be ligamentously stable. Left lower extremity was prepped, padded, and draped in the usual orthopaedic sterile fashion for the procedure. We began by injecting our pain-relieving solution of Duramorph, epinephrine, and ropivacaine at the anterior superior knee. The limb was exsanguinated. Tourniquet was applied to 300 mmHg. A midline incision was carried out through skin and subcutaneous tissue, bringing us down the extensor mechanism. Medial parapatellar arthrotomy was carried out. Straw-colored joint fluid was evacuated. We raised a sleeve of tissue off the upper medial tibia. We resected part of the infrapatellar fat pad. We resected degenerative medial and lateral menisci as well as ACL. PCL was preserved. Collateral ligaments were preserved. We took tissue off the anterior aspect of distal femur. We removed bone spurs OPERATIVE REPORT CORINNA CARR 1 [facility] OPERATIVE REPORT NAME NUMBER SEX AGE ADMIT DISC TYPE MED.RECORD# MARNIE CORINNA [id number] F 62 02/25/2017 I/P [id number] ROOM:310 DATE OF :1955 PHYSICIAN NO.:[id number] PHYSICIAN NAME: PHYSICIAN:ERIC ST about the patella. There was severe arthritis of the patellofemoral joint with sclerosis and complete loss of cartilage along the lateral part of the femur as well. At this point, we used the cutting guides for the femoral side under standard technique. With the help of the assistants, these were placed, and cuts were carried out ultimately with the anterior, posterior, and chamfer cuts. We then went to the tibial side. PCL retractor was placed by the surgeon. Collateral ligament protector was placed by the surgeon and held by the cosmetic sales assistant. Knee was flexed. We used the tibial external alignment guide and premade cutting blocks on the tibia. Cut was carried out. We went down another 2 mm to get adequate bony resection. We then placed our femoral trial and our tibial tray, and we were happy with our construct. We did remove bone spurs posteromedial and posterolateral aspects of the femur. We now placed our femoral trial. We allowed our tibial trial to free float with external alignment guide. Ultimately pinned that in place. We used the drill and the punch on the upper tibia. Some sclerotic bone was freshened with a pin. We everted the patella, measured it, and did a patellar resection leaving us about a 14-mm thick patella. Three drill holes were placed through the trial, and that was removed. We decided on a 32 x 6 patella. That was placed and removed. Wound was thoroughly irrigated, cleaned, and dried. We mixed 2 batches of bone cement. We controlled bleeding at the back of the knee with the Bovie. We injected the back of the knee with some of our pain-relieving cocktail. When the cement was of the appropriate texture and all the bony surfaces were cleaned and dried, we cemented on the tibia, followed by the femur, followed by the patella. We hammered the femur and tibia in place. We clamped the patella in place. Inserts were placed. Knee was held in full extension while the cement hardened. Excess bone cement was removed. We used the remainder of our pain-relieving solution carefully injected throughout the soft tissues of the knee while the cement was hardening. Once the cement was hardening, tourniquet was let down at 51 minutes. Bleeding controlled with the Bovie. The patella, as it had been previously, was wanting to be laterally translated. We did a lateral release which corrected that. This was done from an inside-out technique. No undue bleeding was noted. At this point, we reexamined the knee. We were happy with our 6A inserts. They were removed. Knee was thoroughly irrigated and replaced with the actual 6A inserts. Wound was again thoroughly irrigated, cleaned, and dried. We repaired the arthrotomy with a #1 Vicryl. Knee was flexed and extended. Patella tracked very nicely. We also did a running #2 Stratafix. We did a mid layer of 0 Vicryl and then inverted 2-0 Vicryl. We then used a ZipLine bandage wound closure on the skin under standard technique with the rep present. At this point, we then placed 4x4s, ABDs, Kerlix, Yves wrap, NORAH hose. She was awoken from her anesthetic, transferred back to her own bed in the recovery room in satisfactory condition. Electronically reviewed and signed by: D: ERIC TS TD: 02/25/2017 09:45:05 JOB #: [id number] E-SIGN DR. ERIC ST M.D. Orthopedics 03/04/17 09:14 Transcribed by: MELLISSA OPERATIVE REPORT CORINNA CARR 2 [facility] OPERATIVE REPORT NAME NUMBER SEX AGE ADMIT DISC TYPE MED.RECORD# CORINNA CARR [id number] F 62 02/25/2017 I/P [id number] ROOM:310 DATE OF :1955 PHYSICIAN NO.:[id number] PHYSICIAN NAME: PHYSICIAN:ERIC ST 02/25/2017 09:45:05 Copy for: KAREN CHE DR via fax Copy for: KARTIK POLLACK MD OPERATIVE REPORT CORINNA CARR 3 [facility] PROGRESS NOTESon 03-04-2017 PROGRESS NOTES [facility] [place] OGRESS NOTES NAME NUMBER SEX AGE ADMIT DISC TYPE MED.RECORD# CORINNA CARR [id number] F 62 02/25/2017 I/P [id number] ROOM: DATE OF :1955 PHYSICIAN NO.:[id number] PHYSICIAN NAME: PHYSICIAN:ERIC ST DATE OF SERVICE: 02/26/2017 CHIEF COMPLAINT: Left knee replacement. SUBJECTIVE: Patient is postoperative day #1 from left total knee replacement. Denies chest pain or shortness of breath. Denies productive cough. She was able to get some sleep. She is considering possible discharge to home tomorrow. She is concerned. She does not have much help at home. PHYSICAL EXAMINATION: T-max was 99.1, TC is 98.0, pulse oximetry is 100% on room air. Nursing 24-hour summary sheet was reviewed. We do have her on Xarelto for DVT prevention as well as typical narcotics for postoperative pain. On physical examination, her left knee bandage is on, clean, and dry. Left knee motion is 0-40 degrees. No calf pain or swelling bilaterally. Negative Homans sign bilaterally. Legs are neurovascularly intact with good active motion toes and ankles. Bandage is dry. No pain at the right side. DIAGNOSTIC DATA: X-rays from recovery room, AP and lateral, shows a cemented total knee replacement in good position without obvious loosening, failure, or fracture. Laboratory work shows a white count of 15.7, hemoglobin 9.7, platelet count 201. Chemistry panel reviewed showing a glucose of 158. Highest blood sugar is 158. ASSESSMENT/PLAN: Left total knee replacement, postoperative day 1. Continue with Xarelto, incentive spirometer use therapy, ice, knee motion exercises. Were going to hold her anti rheumatoid medications and she is aware of that. 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 Continue her on pain medication appropriate for her surgery. Possible discharge to home this evening or tomorrow depending upon how she responds to therapy. All of her questions were answered. Continue to monitor her glucose and continue on the consult to the medical service. D: ERIC ST TD: 02/26/2017 07:36:46 JOB #: [id number] E-SIGN DR. ERIC ST M.D. Orthopedics 03/04/17 09:14 Transcribed by: NMGomez 02/26/2017 07:36:46 Copy for: KAREN CHE DR via fax Copy for: KARTIK POLLACK MD PROGRESS NOTES MARNIEMAYON 1 Normal [facility] CBCon 02-28-2017 Basophils Auto #/vol (Bld) 0.00 x10EE3/UL Normal 0.00 - 0.10 [facility] Comment on above: Performed By: #### 2 95490 ####[facility],[address] [place] [address]395 Basophils/100 WBC Auto (Bld) 0.4 % Normal 0.0 - 2.0 [facility] Comment on above: Performed By: #### 2 33687 ####[facility],[address] [place] [address] 15491 Blood morphology N/A Normal [facility] Comment on above: Result Comment: {CD] Performed By: #### 2 42414 ####[facility],[address] [place] [address] CBC Normal [facility] Comment on above: Result Comment: CBC- COMPLETE BLOOD COUNT Performed By: #### 2 25943 ####[facility],[address] [place] [address] 52992 Eosinophils 0.50 x10EE3/UL Normal 0.00 - 0.50 [facility] Comment on above: Performed By: #### 2 60758 ####[facility],[address] [place] [address] 24683 Eosinophils/100 leukocytes 4.1 % Normal 0.0 - 7.0 [facility] Comment on above: Performed By: #### 2 84366 ####[facility],[address] [place] [address] 02447 Erythrocyte distribution width Auto Ratio (RBC) 18.2 % High 12.0 - 15.6 [facility] Comment on above: Performed By: #### 2 62532 ####[facility],[address] [place] [address] 72755 Erythrocytes (RBC) 3.33 x 10EE6/UL Low 4.10 - 5.30 [facility] Comment on above: Performed By: #### 2 44204 ####[facility],[address] [place] [address] 86061 Hematocrit (HCT) 28.7 % Low 34.0 - 46.0 [facility] Comment on above: Performed By: #### 2 83967 ####[facility],[address] [place] [address] Hemoglobin mass conc (Bld) 9.2 g/dL Low 12.0 - 16.0 [facility] Comment on above: Performed By: #### 2 46433 ####[facility],[address] [place] [address] Lymphocytes 1.80 x10EE3/UL Normal 0.80 - 2.80 [facility] Comment on above: Performed By: #### 2 05740 ####[facility],[address] [place] [address] Lymphocytes/100 leukocytes 13.4 % Low 20.0 - 45.0 [facility] Comment on above: Performed By: #### 2 33144 ####[facility],[address] [place] [address] MANUAL DIFF N/A Normal [facility] Comment on above: Performed By: #### 2 07411 ####[facility],[address] [place] [address] MCH 28 pg Normal 27 - 33 [facility] Comment on above: Performed By: #### 2 62292 ####[facility],[address] [place] [address] MCHC mass conc (RBC) 32 X10 3 Normal 32 - 36 [facility] Comment on above: Performed By: #### 2 88213 ####[facility],[address] [place] [address] MCV 86 fL Normal 80 - 99 [facility] Comment on above: Performed By: #### 2 71225 ####[facility],[address] [place] [address] Monocytes 0.90 x10EE3/UL Normal 0.20 - 1.00 [facility] Comment on above: Performed By: #### 2 50508 ####[facility],[address] [place] [address] 79831 MONOS % 7.0 % Normal 0.0 - 10.0 [facility] Comment on above: Performed By: #### 2 63879 ####[facility],[address] [place] [address] 55404 Neutrophils 10.20 x10EE3/UL High 1.50 - 7.10 [facility] Comment on above: Performed By: #### 2 65161 ####[facility],[address] [place] [address] 13566 Neutrophils/100 WBC Auto (Bld) 75.1 % Normal 46.0 - 76.0 [facility] Comment on above: Performed By: #### 2 65500 ####[address] [address] Platelet mean volume (PMV) 9.1 fL Normal 6.6 - 10.5 [facility] Comment on above: Result Comment: AUTO MATED DIFFERENTIAL Performed By: #### 2 08827 ####[address] [address] Platelets 198 x10EE3/UL Normal 150 - 450 [facility] Comment on above: Performed By: #### 2 51405 ####[facility],[address] [place] [address]805 WBC (Leukocytes) 13.6 x 10EE3/UL High 4.5 - 10.8 [facility] Comment on above: Performed By: #### 2 03485 ####[address] [address] GLUCOSE BEDSIDEon 02-28-2017 GLU BEDSIDE 97 mg/dl Normal 60 - 100 [facility] Comment on above: Performed By: #### 2 10338 ####[address] [address] Glucose mass conc Normal [facility] Comment on above: Result Comment: POIN T OF CARE GLUCOSE TEST Performed By: #### 2 20334 ####[facility],[address] [place], [place] [address] GLU BEDSIDE 142 mg/dl High 60 - 100 [facility] Comment on above: Performed By: #### 2 58135 ####[facility],[address] [place] [address] Glucose mass conc Normal [facility] Comment on above: Result Comment: POIN T OF CARE GLUCOSE TEST Performed By: #### 2 08714 ####[facility],[address] [place] [address] CBCon 02-27-2017 Basophils Auto #/vol (Bld) 0.00 x10EE3/UL Normal 0.00 - 0.10 [facility] Comment on above: Performed By: #### 2 41977 ####[facility],[address] [place], [place] [address] Basophils/100 WBC Auto (Bld) 0.2 % Normal 0.0 - 2.0 [facility] Comment on above: Performed By: #### 2 84431 ####[facility],[address] [place] [address] Blood morphology N/A Normal [facility] Comment on above: Result Comment: {CD] Performed By: #### 2 73227 ####[facility],[address] [place] [address] CBC Normal [facility] Comment on above: Result Comment: CBC- COMPLETE BLOOD COUNT Performed By: #### 2 83661 ####[facility],[address] [place], [place] [address] Eosinophils 0.60 x10EE3/UL High 0.00 - 0.50 [facility] Comment on above: Performed By: #### 2 43500 ####[facility],[address] [place], [place] [address] Eosinophils/100 leukocytes 4.3 % Normal 0.0 - 7.0 [facility] Comment on above: Performed By: #### 2 36694 ####[facility],[address] [place] [address] Erythrocyte distribution width Auto Ratio (RBC) 18.4 % High 12.0 - 15.6 [facility] Comment on above: Performed By: #### 2 78042 ####[facility],[address] [place] [address] Erythrocytes (RBC) 3.51 x 10EE6/UL Low 4.10 - 5.30 [facility] Comment on above: Performed By: #### 2 81432 ####[facility],[address] [place] [address] Hematocrit (HCT) 30.3 % Low 34.0 - 46.0 [facility] Comment on above: Performed By: #### 2 08335 ####[facility],[address] [place] [address] Hemoglobin mass conc (Bld) 9.7 g/dL Low 12.0 - 16.0 [facility] Comment on above: Performed By: #### 2 20858 ####[facility],[address] [place] [address] Lymphocytes 1.80 x10EE3/UL Normal 0.80 - 2.80 [facility] Comment on above: Performed By: #### 2 16110 ####[facility],[address] [place], [place] [address] Lymphocytes/100 leukocytes 13.6 % Low 20.0 - 45.0 [facility] Comment on above: Performed By: #### 2 29942 ####[facility],[address] [place] [address] MANUAL DIFF N/A Normal [facility] Comment on above: Performed By: #### 2 88528 ####[facility],[address] [place] [address] MCH 28 pg Normal 27 - 33 [facility] Comment on above: Performed By: #### 2 44469 ####[facility],[address] [place] [address] MCHC mass conc (RBC) 32 X10 3 Normal 32 - 36 [facility] Comment on above: Performed By: #### 2 03213 ####[facility],[address] [place] [address] MCV 86 fL Normal 80 - 99 [facility] Comment on above: Performed By: #### 2 92944 ####[facility],[address] [place] [address] Monocytes 1.10 x10EE3/UL High 0.20 - 1.00 [facility] Comment on above: Performed By: #### 2 34438 ####[facility],[address] [place] [address] MONOS % 8.6 % Normal 0.0 - 10.0 [facility] Comment on above: Performed By: #### 2 03832 ####[facility],[address] [place], [place] [address] Neutrophils 9.60 x10EE3/UL High 1.50 - 7.10 [facility] Comment on above: Performed By: #### 2 47123 ####[facility],[address] [place], [place] [address] Neutrophils/100 WBC Auto (Bld) 73.3 % Normal 46.0 - 76.0 [facility] Comment on above: Performed By: #### 2 26887 ####[facility],[address] [place] [address] Platelet mean volume (PMV) 9.2 fL Normal 6.6 - 10.5 [facility] Comment on above: Result Comment: AUTO MATED DIFFERENTIAL Performed By: #### 2 15466 ####[facility],[address] [place] [address] Platelets 202 x10EE3/UL Normal 150 - 450 [facility] Comment on above: Performed By: #### 2 90941 ####[facility],[address] [place] [address]70 WBC (Leukocytes) 13.1 x 10EE3/UL High 4.5 - 10.8 [facility] Comment on above: Performed By: #### 2 16057 ####[facility],[address] [place] [address] 49873 CV VENOUS LEG LTon 7 CV VENOUS LEG LT [facility] [address] [address] Patient: CORINNA CARR Phone#: : 1955 Age: 62 Gender: F Pt. Type: In Account: [id number] Location: 010 Ordering: FER STOUT Exam Date: 02/27/2017/10:16 Family Phys: JAKI VERDUGO Charge Code: [id number] Physician: [place] Order #: [id number] DLP Dose#: PROCEDURE: VENOUS DOPPLER LT LEG COMPARISON: None. INDICATIONS: Pain TECHNIQUE: Color duplex Doppler ultrasound evaluation analysis was performed in the usual manner. BODS DEVELOPER: TIARRA RISK FACTORS FOR VENOUS DISEASE: Recent surgery Knee surgery 02/25/17 Other Pain EXAMINATION: RIGHT +Present -Reduced o Absent LEFT SPONT PHASIC AUG REFLUX COMP SPONT PHASIC AUG REFLUX COMP CFV + + + o + SFJ + FV (prox) + + + o + FV (mid) + FV (dist) + POP V + + + o + T/P TRUNK + + + o + PTV + + + o + PERONEAL V + + + o + GSV + GASTROC Continued Report - Page 2 of 2 Patient: CORINNA CARR Phone#: : 1955 Age: 62 Gender: F Pt. Type: In Account: [id number] Location: 010 Ordering: FER STOUT Exam Date: 02/27/2017/10:16 Family Phys: JAKI VERDUGO Charge Code: 778142 Physician: [place] Order #: [id number] DLP Dose#: SOLEAL V BODS DEVELOPER'S NOTES: Preliminary report given to ALONA Orlando at 10:35. FINDINGS: THROMBI: None visible. COMPRESSIBILITY: Normal. OTHER: Negative. CONCLUSION: 1. There is no evidence of superficial or deep vein thrombus. Dictated by: Brooklyn Kim MD on 02/27/2017 at 11:14 Approved by: Brooklyn Kim MD on 02/27/2017 at 11:14 [facility] Final Surgical Pathology Rep [facility] 02-27-2017 Final Surgical Pathology Report . Pathology ReportsAccession: Collected Date/Time: Received Date/Time: Pathologist:[id number] 02/25/2017 06:52 EST 02/26/2017 06:52 MD AMOS BURNS Final Surgical Pathology ReportDIAGNOSIS:BONE, LEFT KNEE, REPLACEMENT: - OSTEOARTHRITIS WITH IRREGULAR PITTED ARTICULAR CARTILAGE AND EBURNATION. - NEGATIVE FOR INFLAMMATION OR NEOPLASIA.COMMENT:[facility] - A# [id number] INFORMATION:LEFT KNEE PRIMARY OSTEOARTHRITISSPECIMEN:A JOINT, RESEC - BONE LEFT KNEEGROSS DESCRIPTION:_Received in formalin labeled with the patient's name are multiple convex and concave fragmented portions of martinez-yellow bone and soft tissue aggregating 8 x 8 x 3.5 cm. The articular surfaces are focally eburnated and the cartilage is focally nodular. The underlying bone is yellow and dense to trabecular. Converter Skimmer section(s) are submitted following decalcification in one cassette.Dictated by PAO CUEVA ([facility])MICROSCOPIC DESCRIPTION:Slides reviewed.Electronically Signed byPathology Report verified by [facility] Hospital[facility]ronically signed by AMOS HUBER MDSign out Date: 02/27/2017 12:42Performing Lab: [facility], [address] [place] [address] ([place]) Comment on above: Performed By: #### S PFR ####[facility] [place] [address] GLUCOSE BEDSIDEon 02-27-2017 GLU BEDSIDE 121 mg/dl High 60 - 100 [facility] Comment on above: Performed By: #### 2 70847 ####[facility],[address] [place] [address] Glucose mass conc Normal [facility] Comment on above: Result Comment: POIN T OF CARE GLUCOSE TEST Performed By: #### 2 98314 ####[facility],[address] [place] [address] GLU BEDSIDE 117 mg/dl High 60 - 100 [facility] Comment on above: Performed By: #### 2 92113 ####[facility],[address] [place] [address]1638 Glucose mass conc Normal [facility] Comment on above: Result Comment: POIN T OF CARE GLUCOSE TEST Performed By: #### 2 27565 ####[facility],[address] [place] [address] GLU BEDSIDE 143 mg/dl High 60 - 100 [facility] Comment on above: Performed By: #### 2 47321 ####[facility],[address] [place] [address] GLU BEDSIDE 97 mg/dl Normal 60 - 100 [facility] Comment on above: Performed By: #### 2 55663 ####[facility],[address] [place] [address]8064 Glucose mass conc Normal [facility] Comment on above: Result Comment: POIN T OF CARE GLUCOSE TEST Performed By: #### 2 48441 ####[facility],[address] [place] [address] [place] [address] GLU BEDSIDE 160 mg/dl High 60 - 100 [facility] Comment on above: Performed By: #### 2 27612 ####[facility],[address] [place] [address] [place] [address] GLU BEDSIDE 164 mg/dl High 60 - 100 [facility] Comment on above: Performed By: #### 2 36016 ####[facility],[address] [place] [address]39 Glucose mass conc Normal [facility] Comment on above: Result Comment: POIN T OF CARE GLUCOSE TEST Performed By: #### 2 69803 ####[facility],[address] [facility],[place] [address] GLU BEDSIDE 195 mg/dl High 60 - 100 [facility] Comment on above: Performed By: #### 2 27419 ####[facility],[address] [facility],[place] [address] GLU BEDSIDE 150 mg/dl High 60 - 100 [facility] Comment on above: Performed By: #### 2 74380 ####[facility],[address] [place] [address],[place] [address] GLU BEDSIDE 223 mg/dl High 60 - 100 [facility] Comment on above: Performed By: #### 2 56781 ####[facility],[address] [place] [address],[facility] [address] Glucose mass conc Normal [facility] Comment on above: Result Comment: POIN T OF CARE GLUCOSE TEST Performed By: #### 2 32335 ####[facility],[address] [place] [address],[facility] [address] PROGRESS NOTESon 02-27-2017 PROGRESS NOTES [facility] [place] OGRESS NOTES NAME NUMBER SEX AGE ADMIT DISC TYPE MED.RECORD# CORINNA CARR [id number] F 62 02/26/2017 I/P [id number] ROOM:[facility] DATE OF :1955 PHYSICIAN NO.:[id number] PHYSICIAN NAME: PHYSICIAN:LUIS ARMANDO DHILLON M.D. Shared split visit with Fer Stout CNP. DATE OF SERVICE: 02/26/2017 SUBJECTIVE: She is sitting up in bed. She is comfortable. Pain is under control with medication. OBJECTIVE: Vital signs are stable. The patient's lungs are clear. Her heart has a regular rate and rhythm. Extremities do not reveal edema. ASSESSMENT/PLAN: Corinna Carr is being placed in a rehabilitation program. Her discharge day will be as she will need time to recover from the surgery and participate with the inpatient physical therapy service. No complications are noted postoperatively. D: LUIS ARMANDO DHILLON M.D. TD: 02/27/2017 09:28:32 JOB #: [id number] Kendal Dhillon M.D. Internal Medicine 02/27/17 14:39 Transcribed by: MELLISSA 02/27/2017 09:28:32 Copy for: KAREN CHE DR via fax Copy for: KARTIK POLLACK MD PROGRESS NOTES MARNIE, CORINNA 1 Normal [facility] BMP with eGFRon 02-26-2017 Age 62 years Normal [facility] Comment on above: Performed By: #### 2 91319 ####[facility],[address] [place] [address] Anion gap 10 mmol/L Normal 10 - 20 [facility] Comment on above: Performed By: #### 2 52367 ####[facility],[address] [place] [address] Calcium 8.9 mg/dL Normal 8.6 - 10.2 [facility] Comment on above: Performed By: #### 2 30741 ####[facility],[address] [place] [address] Chloride 105 mmol/L Normal 98 - 107 [facility] Comment on above: Performed By: #### 2 35906 ####[facility],[address] [place], [place] [id number] CO2 26.5 mmol/L Normal 21.0 - 31.0 [facility] Comment on above: Performed By: #### 2 92907 ####[facility],[address] [place], [place] [id number] Creatinine 0.8 mg/dL Normal 0.6 - 1.2 [facility] Comment on above: Performed By: #### 2 89227 ####[facility],[address] [place], [place] [id number] eGFR (non-black) mL/min/{1.73_m2} Normal 60 - 999 [facility] Comment on above: Result Comment: ACCO RDING TO THE NATIONAL KIDNEY DISEASE EDUCATION PROGRAM(NKDE), A NORMAL eGFRIS A VALUE GREATER THAN OR EQUAL TO 60 ML/MIN/1.73 SQ METERS.CHRONIC KIDNEY DISEASE: <60mL/MIN/1.73 SQ METERSKIDNEY FAILURE: <15mL/MIN/1.73 SQ METERSTHIS TEST SHOULD ONLY BE USED FOR PATIENTS 18 YEARS OF AGE AND OLDER. Performed By: #### 2 66116 ####[facility],[address] [place], [place] [id number] eGFR (non-black) Normal [facility] Comment on above: Result Comment: BASI C METABOLIC PANEL Performed By: #### 2 42071 ####[facility],[address] [place] [address] Glucose mass conc 158 mg/dL High 74 - 106 [facility] Comment on above: Performed By: #### 2 37855 ####[facility],[address] [place], [place] [id number] Potassium molar conc 4.2 mmol/L Normal 3.5 - 5.1 [facility] Comment on above: Performed By: #### 2 34354 ####[facility],[address] [place] [address] Sodium 137 mmol/L Normal 136 - 145 [facility] Comment on above: Performed By: #### 2 32281 ####[facility],[address] [place] [address]47 Urea nitrogen 15 mg/dL Normal 6 - 20 [facility] Comment on above: Performed By: #### 2 79642 ####[facility],[address] [place] [address]805 CBCon 02-26-2017 Basophils Auto #/vol (Bld) 0.10 x10EE3/UL Normal 0.00 - 0.10 [facility] Comment on above: Performed By: #### 2 88578 ####[facility],[address] [place] [address]884 Basophils/100 WBC Auto (Bld) 0.4 % Normal 0.0 - 2.0 [facility] Comment on above: Performed By: #### 2 53366 ####[facility],[address] [place], [place] [address] Blood morphology REVIEWED Normal [facility] Comment on above: Result Comment: {CD] Performed By: #### 2 38840 ####[facility],[address] [place], [place] [address] CBC Normal [facility] Comment on above: Result Comment: CBC- COMPLETE BLOOD COUNT Performed By: #### 2 76325 ####[facility],[address] [place], [place] [address] Eosinophils 0.10 x10EE3/UL Normal 0.00 - 0.50 [facility] Comment on above: Performed By: #### 2 02635 ####[facility],[address] [place] [address] Eosinophils/100 leukocytes 0.7 % Normal 0.0 - 7.0 [facility] Comment on above: Performed By: #### 2 01967 ####[facility],[address] [place] [address] Erythrocyte distribution width Auto Ratio (RBC) 18.1 % High 12.0 - 15.6 [facility] Comment on above: Performed By: #### 2 63569 ####[facility],[address] [place], [place] [address] Erythrocytes (RBC) 3.51 x 10EE6/UL Low 4.10 - 5.30 [facility] Comment on above: Performed By: #### 2 30967 ####[facility],[address] [place], [place] [address] Hematocrit (HCT) 30.2 % Low 34.0 - 46.0 [facility] Comment on above: Performed By: #### 2 20187 ####[facility],[address] [place], [place] [address] Hemoglobin mass conc (Bld) 9.7 g/dL Low 12.0 - 16.0 [facility] Comment on above: Performed By: #### 2 04198 ####[facility],[address] [place] [address]289 Lymphocytes 1.80 x10EE3/UL Normal 0.80 - 2.80 [facility] Comment on above: Performed By: #### 2 96988 ####[facility],[address] [place] [address]9864 Lymphocytes/100 leukocytes 11.3 % Low 20.0 - 45.0 [facility] Comment on above: Performed By: #### 2 62566 ####[facility],[address] [place] [address]15 MANUAL DIFF REVIEWED Normal [facility] Comment on above: Performed By: #### 2 61583 ####[facility],[address] [place], [place] [address] MCH 28 pg Normal 27 - 33 [facility] Comment on above: Performed By: #### 2 19698 ####[facility],[address] [place] [address]185 MCHC mass conc (RBC) 32 X10 3 Normal 32 - 36 [facility] Comment on above: Performed By: #### 2 58830 ####[facility],[address] [place] [address] 98529 MCV 86 fL Normal 80 - 99 [facility] Comment on above: Performed By: #### 2 79111 ####[facility],[address] [place] [address]7772 Monocytes 0.90 x10EE3/UL Normal 0.20 - 1.00 [facility] Comment on above: Performed By: #### 2 02991 ####[facility],[address] [place] [address]56 MONOS % 5.6 % Normal 0.0 - 10.0 [facility] Comment on above: Performed By: #### 2 40942 ####[facility],[address] [place] [address] 48748 Neutrophils 12.90 x10EE3/UL High 1.50 - 7.10 [facility] Comment on above: Performed By: #### 2 46870 ####[address] [address] Neutrophils/100 WBC Auto (Bld) 82.0 % High 46.0 - 76.0 [facility] Comment on above: Performed By: #### 2 32053 ####[address] [address] Platelet mean volume (PMV) 8.6 fL Normal 6.6 - 10.5 [facility] Comment on above: Result Comment: AUTO MATED DIFFERENTIAL Performed By: #### 2 95487 ####[address] [address] Platelets 201 x10EE3/UL Normal 150 - 450 [facility] Comment on above: Performed By: #### 2 14239 ####[address] [address] WBC (Leukocytes) 15.7 x 10EE3/UL High 4.5 - 10.8 [facility] Comment on above: Performed By: #### 2 16572 ####[address] [address] HGB A1Con 02-26-2017 Hemoglobin A1c/Hemoglobin.total mass fraction (Bld) 5.8 % Normal 4.4 - 6.4 [facility] Comment on above: Result Comment: {HB] {A1] Performed By: #### 2 18648 ####[address] [address] GLUCOSE BEDSIDEon 02-25-2017 GLU BEDSIDE 157 mg/dl High 60 - 100 [facility] Comment on above: Performed By: #### 2 15620 ####[address] [address] Glucose mass conc Normal [facility] Comment on above: Result Comment: POIN T OF CARE GLUCOSE TEST Performed By: #### 2 81135 ####[facility],[address] [place] [address] GLU BEDSIDE 100 mg/dl Normal 60 - 100 [facility] Comment on above: Performed By: #### 2 95587 ####[facility],[address] [place] [address] Glucose mass conc Normal [facility] Comment on above: Result Comment: POIN T OF CARE GLUCOSE TEST Performed By: #### 2 73922 ####[facility],[address] [place] [address] 23907 KNEE 2 VIEWS LTon 02-25-2017 KNEE 2 VIEWS [facility] [address] [place] [address] Patient: CORINNA CARR Phone#: : 1955 Age: 62 Gender: F Pt. Type: In Account: [id number] Location: [facility] Ordering: [address] Exam Date: 02/25/2017/10:02 Family Phys: JAKI VERDUGO Charge Code: [id number] Physician: [place] Order #: [id number] DLP Dose#: PROCEDURE: X-RAY KNEE LT 2 VIEWS COMPARISON: None. INDICATIONS: Post operative FINDINGS: BONES: Postoperative changes of left knee arthroplasty with femoral and tibial hardware components. Changes to the undersurface of the patella consistent with patellar button. SOFT TISSUES: There is expected postoperative air in the soft tissues. EFFUSION: There is a small suprapatellar joint effusion. OTHER: Negative. CONCLUSION: 1. Expected postoperative changes of left knee arthroplasty. Dictated by: Elida Saxena MD on 02/25/2017 at 10:28 Approved by: Elida Saxena MD on 02/25/2017 at 10:28 Normal [facility] HGB A1Con 02-07-2017 Hemoglobin A1c/Hemoglobin.total mass fraction (Bld) 6.2 % Normal 4.4 - 6.4 [facility] Comment on above: Result Comment: {HB] {A1] Performed By: #### 2 01618 ####[facility],[address] [place] [address] BMP with eGFRon 02-06-2017 Age 62 years Normal [facility] Comment on above: Performed By: #### 2 19333 ####[facility],[address] [place] [address] Anion gap 14 mmol/L Normal 10 - 20 [facility] Comment on above: Performed By: #### 2 32596 ####[facility],[address] [place] [address]351 Calcium 9.3 mg/dL Normal 8.6 - 10.2 [facility] Comment on above: Performed By: #### 2 78615 ####[facility],[address] [place] [address]229 Chloride 102 mmol/L Normal 98 - 107 [facility] Comment on above: Performed By: #### 2 33313 ####[facility],[address] [place], [place] [address] CO2 26.5 mmol/L Normal 21.0 - 31.0 [facility] Comment on above: Performed By: #### 2 23785 ####[facility],[address] [place] [address]80 Creatinine 0.9 mg/dL Normal 0.6 - 1.2 [facility] Comment on above: Performed By: #### 2 75008 ####[facility],[address] [place] [address] 89025 eGFR (non-black) Normal [facility] Comment on above: Result Comment: BASI C METABOLIC PANEL Performed By: #### 2 42019 ####[facility],[address] [place] [address] 21291 eGFR (non-black) mL/min/{1.73_m2} Normal 60 - 999 [facility] Comment on above: Performed By: #### 2 54441 ####[facility],[address] [place] [address] Result Comment: ACCO RDING TO THE NATIONAL KIDNEY DISEASE EDUCATION PROGRAM(NKDE), A NORMAL eGFRIS A VALUE GREATER THAN OR EQUAL TO 60 ML/MIN/1.73 SQ METERS.CHRONIC KIDNEY DISEASE: <60mL/MIN/1.73 SQ METERSKIDNEY FAILURE: <15mL/MIN/1.73 SQ METERSTHIS TEST SHOULD ONLY BE USED FOR PATIENTS 18 YEARS OF AGE AND OLDER. Glucose mass conc 66 mg/dL Low 74 - 106 [facility] Comment on above: Performed By: #### 2 73007 ####[facility],[address] [place] [address] Potassium molar conc 4.0 mmol/L Normal 3.5 - 5.1 [facility] Comment on above: Performed By: #### 2 15080 ####[place] [address] Sodium 138 mmol/L Normal 136 - 145 [facility] Comment on above: Performed By: #### 2 63327 ####[place] [address] Urea nitrogen 17 mg/dL Normal 6 - 20 [facility] Comment on above: Performed By: #### 2 97267 ####[address] [address] CBCon 02-06-2017 Basophils Auto #/vol (Bld) 0.10 x10EE3/UL Normal 0.00 - 0.10 [facility] Comment on above: Performed By: #### 2 14752 ####[address] [address] Basophils/100 WBC Auto (Bld) 0.6 % Normal 0.0 - 2.0 [facility] Comment on above: Performed By: #### 2 19103 ####[place] [id number] Blood morphology N/A Normal [facility] Comment on above: Result Comment: {CD] Performed By: #### 2 52281 ####[facility],[address] [place], [place] [address] CBC Normal [facility] Comment on above: Result Comment: CBC- COMPLETE BLOOD COUNT Performed By: #### 2 86215 ####[facility],[address] [place] [address] Eosinophils 0.70 x10EE3/UL High 0.00 - 0.50 [facility] Comment on above: Performed By: #### 2 51691 ####[facility],[address] [place] [address] Eosinophils/100 leukocytes 5.4 % Normal 0.0 - 7.0 [facility] Comment on above: Performed By: #### 2 11163 ####[facility],[address] [place], [place] [address] Erythrocyte distribution width Auto Ratio (RBC) 16.7 % High 12.0 - 15.6 [facility] Comment on above: Performed By: #### 2 85543 ####[facility],[address] [place] [address] Erythrocytes (RBC) 4.19 x 10EE6/UL Normal 4.10 - 5.30 [facility] Comment on above: Performed By: #### 2 97346 ####[facility],[address] [place] [address]22 Hematocrit (HCT) 35.1 % Normal 34.0 - 46.0 [facility] Comment on above: Performed By: #### 2 34280 ####[facility],[address] [place] [address]22 Hemoglobin mass conc (Bld) 11.2 g/dL Low 12.0 - 16.0 [facility] Comment on above: Performed By: #### 2 60317 ####[facility],[address] [place] [address]8029 Lymphocytes 2.20 x10EE3/UL Normal 0.80 - 2.80 [facility] Comment on above: Performed By: #### 2 17405 ####[facility],[address] [place], [place] [address] Lymphocytes/100 leukocytes 17.6 % Low 20.0 - 45.0 [facility] Comment on above: Performed By: #### 2 39626 ####[facility],[address] [place] [address] MANUAL DIFF N/A Normal [facility] Comment on above: Performed By: #### 2 98021 ####[facility],[address] [place] [address] MCH 27 pg Normal 27 - 33 [facility] Comment on above: Performed By: #### 2 84968 ####[facility],[address] [place] [address] MCHC mass conc (RBC) 32 X10 3 Normal 32 - 36 [facility] Comment on above: Performed By: #### 2 01311 ####[facility],[address] [place], [place] [address] MCV 84 fL Normal 80 - 99 [facility] Comment on above: Performed By: #### 2 33146 ####[facility],[address] [place], [place] [address] Monocytes 0.70 x10EE3/UL Normal 0.20 - 1.00 [facility] Comment on above: Performed By: #### 2 45948 ####[facility],[address] [place] [address]26 MONOS % 5.8 % Normal 0.0 - 10.0 [facility] Comment on above: Performed By: #### 2 01312 ####[facility],[address] [place], [place] [address] Neutrophils 8.70 x10EE3/UL High 1.50 - 7.10 [facility] Comment on above: Performed By: #### 2 91006 ####[facility],[address] [place] [address] Neutrophils/100 WBC Auto (Bld) 70.6 % Normal 46.0 - 76.0 [facility] Comment on above: Performed By: #### 2 62319 ####[facility],[address] [place] [address]69[address] Platelet mean volume (PMV) 8.8 fL Normal 6.6 - 10.5 [facility] Comment on above: Result Comment: AUTO MATED DIFFERENTIAL Performed By: #### 2 21933 ####[facility],[address] [place] [address]5586 Platelets 360 x10EE3/UL Normal 150 - 450 [facility] Comment on above: Performed By: #### 2 19402 ####[facility],[address] [place] [address]36 WBC (Leukocytes) 12.3 x 10EE3/UL High 4.5 - 10.8 [facility] Comment on above: Performed By: #### 2 26945 ####[facility],[address] [place] [address] LOWER EXTREMITY LT WOon 1 CT LOWER EXTREMITY LT [address] [address] Patient: CORINNA CARR Phone#: : 1955 Age: 61 Gender: F Pt. Type: Out Account: [id number] Location: Ordering: ERIC ST Exam Date: 01/14/2017/14:09 Family Phys: JAKI VERDUGO Charge Code: [id number] Physician: [place] Order #: [id number] DLP Dose#: PROCEDURE: CT LOWER EXTREMITY LT WO CONTRAST COMPARISON: None. INDICATIONS: Conformis TECHNIQUE: Multi-planar CT images were created without intravenous contrast. All CT scans at this facility use dose modulation, iterative reconstruction, and/or weight based dosing when appropriate to reduce radiation dose to as low as reasonably achievable. IV CONTRAST: No IV contrast used,ml TOTAL DOSE: 52.6 CTDIvol(mGy) FINDINGS: BONES: Masses there are degenerative changes are present. There is narrowing of the medial compartment and patellofemoral joint. The medial patellofemoral joint is severely narrowed. Osteophytes are present extending from the anterior femoral condyle and posterior patella. There osteophytes projecting medially and laterally from the femoral condyles and from the lateral tibial plateau. There is a loose with several calcific nidus as per nurses a grouping of loose bodies in the anterior joint. Total involved area is 8 x 3 x 8 mm. SOFT TISSUES: Negative. No visible soft tissue swelling. EFFUSION: None visible. OTHER: Negative. CONCLUSION: Continued Report - Page 2 of 2 Patient: CORINNA CARR Phone#: : 1955 Age: 61 Gender: F Pt. Type: Out Account: [id number] Location: Ordering: ERIC ST Exam Date: 01/14/2017/14:09 Family Phys: JAKI VERDUGO Charge Code: [id number] Physician: [place] Order #: [id number] DLP Dose#: 1. Severe degenerative changes of the knee are present most marked involving the patellofemoral joint. Dictated by: Brooklyn Kim MD on 01/14/2017 at 15:01 Approved by: Brooklyn Kim MD on 01/14/2017 at 15:01 Normal [facility] Vital Signs Date Time Vital Sign Value Performing Clinician Facility 12-17-2024 14:040 Body temperature 97.5 [degF] Treatment Wstr Work Phone: [facility] 12-17-2024 14:26-040 Diastolic blood pressure 88 mm[Hg] Treatment Wstr Work Phone: [facility] 12-17-2024 14:-0400 Heart rate 71 /min Treatment Wstr Work Phone: [facility] 12-17-2024 14:26-040 Respiratory rate 18 /min Treatment Wstr Work Phone: [facility] 12-17-2024 14:26-0400 SaO2% (BldA) [Mass fraction] 98 % Treatment Wstr Work Phone: [facility] 12-17-2024 14:26-0400 Systolic blood pressure 137 mm[Hg] Treatment Wstr Work Phone: [facility] 12-15-2024 13:00-0400 Body temperature 97.7 [degF] Treatment Wstr Work Phone: [facility] 12-15-2024 13:00-0400 Diastolic blood pressure 72 mm[Hg] Treatment Wstr Work Phone: [facility] 12-15-2024 13:00-0400 Heart rate 79 /min Treatment Wstr Work Phone: [facility] 12-15-2024 13:00-0400 Respiratory rate 18 /min Treatment Wstr Work Phone: [facility] 12-15-2024 13:00-0400 Systolic blood pressure 150 mm[Hg] Treatment Wstr Work Phone: [facility] 12-14-2024 10:26-0400 Body height 165.1 cm Monet Negron PHOTOGRAPHER'S MODEL.RADIOLOGY CLERK Work Phone: [facility] 12-14-2024 10:26-0400 Body mass index (BMI) [Ratio] 33.28 kg/m2 Monet Negron PHOTOGRAPHER'S MODEL.RADIOLOGY CLERK Work Phone: [facility] 12-14-2024 10:26-0400 Body weight 90.72 kg Monet Negron APRN.RADIOLOGY CLERK Work Phone: [facility] 12-01-2024 15:00-0400 Body temperature 97.59 [degF] Treatment Wstr Work Phone: [facility] 12-01-2024 15:00-0400 Diastolic blood pressure 72 mm[Hg] Treatment Wstr Work Phone: [facility] 12-01-2024 15:00-0400 Heart rate 54 /min Treatment Wstr Work Phone: [facility] 12-01-2024 15:00-0400 Respiratory rate 18 /min Treatment Wstr Work Phone: [facility] 12-01-2024 15:00-0400 SaO2% (BldA) [Mass fraction] 100 % Treatment Wstr Work Phone: [facility] 12-01-2024 15:00-0400 Systolic blood pressure 145 mm[Hg] Treatment Wstr Work Phone: [facility] 11-26-2024 09:55-0400 Body temperature 97 [degF] Treatment Wstr Work Phone: [facility] 11-26-2024 09:55-0400 Diastolic blood pressure 56 mm[Hg] Treatment Wstr Work Phone: [facility] 11-26-2024 09:55-0400 Heart rate 61 /min Treatment Wstr Work Phone: [facility] 11-26-2024 09:55-0400 SaO2% (BldA) [Mass fraction] 99 % Treatment Wstr Work Phone: [facility] 11-26-2024 09:55-0400 Systolic blood pressure 144 mm[Hg] Treatment Wstr Work Phone: [facility] 11-24-2024 15:00-0400 Body temperature 98.01 [degF] Treatment Wstr Work Phone: [facility] 11-24-2024 15:00-0400 Diastolic blood pressure 71 mm[Hg] Treatment Wstr Work Phone: [facility] 11-24-2024 15:00-0400 Heart rate 72 /min Treatment Wstr Work Phone: [facility] 11-24-2024 15:00-0400 Respiratory rate 18 /min Treatment Wstr Work Phone: [facility] 11-24-2024 15:00-0400 SaO2% (BldA) [Mass fraction] 95 % Treatment Wstr Work Phone: [facility] 11-24-2024 15:00-0400 Systolic blood pressure 148 mm[Hg] Treatment Wstr Work Phone: [facility] 11-20-2024 13:52-0400 Heart rate 51 /min Tyler Dixon PHOTOGRAPHER'S MODEL.RADIOLOGY CLERK Work Phone: [facility] 11-20-2024 13:40-0400 Diastolic blood pressure 83 mm[Hg] Tyler Dixon PHOTOGRAPHER'S MODEL.RADIOLOGY CLERK Work Phone: [facility] 11-20-2024 13:40-0400 Systolic blood pressure 140 mm[Hg] Tyler Dixon PHOTOGRAPHER'S MODEL.RADIOLOGY CLERK Work Phone: [facility] 11-20-2024 13:38-0400 Body height 165.1 cm Tyler Dixon PHOTOGRAPHER'S MODEL.RADIOLOGY CLERK Work Phone: [facility] 11-20-2024 13:38-0400 Body mass index (BMI) [Ratio] 32.62 kg/m2 Tyler Dixon PHOTOGRAPHER'S MODEL.RADIOLOGY CLERK Work Phone: [facility] 11-20-2024 13:38-0400 Body temperature 97.81 [degF] Tyler Dixon PHOTOGRAPHER'S MODEL.RADIOLOGY CLERK Work Phone: [facility] 11-20-2024 13:38-0400 Body weight 88.91 kg Tyler Dixon PHOTOGRAPHER'S MODEL.RADIOLOGY CLERK Work Phone: [facility] 06-30-2024 11:11-0400 Body mass index (BMI) [Ratio] 29.36 kg/m2 Saige Wallis PHOTOGRAPHER'S MODEL.RADIOLOGY CLERK Work Phone: [facility] 06-30-2024 11:11-0400 Body temperature 97.59 [degF] Saige Wallis PHOTOGRAPHER'S MODEL.RADIOLOGY CLERK Work Phone: [facility] 06-30-2024 11:11-0400 Body weight 78.8 kg Saige Wallis PHOTOGRAPHER'S MODEL.RADIOLOGY CLERK Work Phone: [facility] 06-30-2024 11:11-0400 Diastolic blood pressure 84 mm[Hg] Saige Wallis PHOTOGRAPHER'S MODEL.RADIOLOGY CLERK Work Phone: [facility] 06-30-2024 11:11-0400 Heart rate 80 /min Saige Wallis PHOTOGRAPHER'S MODEL.RADIOLOGY CLERK Work Phone: [facility] 06-30-2024 11:11-0400 SaO2% (BldA) [Mass fraction] 99 % Saige Wallis PHOTOGRAPHER'S MODEL.RADIOLOGY CLERK Work Phone: [facility] 06-30-2024 11:11-0400 Systolic blood pressure 128 mm[Hg] Saige Wallis PHOTOGRAPHER'S MODEL.RADIOLOGY CLERK Work Phone: [facility] 05-15-2024 14:46-0500 Body temperature 97.8 [degF] Dr. Davey Egan DO Work Phone: [facility] 05-15-2024 14:46-0500 Diastolic blood pressure 51 mm[Hg] Dr. Davey Egan DO Work Phone: [facility] 05-15-2024 14:46-0500 Heart rate 57 /min Dr. aDvey Egan DO Work Phone: [facility] 05-15-2024 14:46-0500 Respiratory rate 16 /min Dr. Davey Egan DO Work Phone: [facility] 05-15-2024 14:46-0500 SaO2% (BldA) [Mass fraction] 97 % Dr. Davey Egan DO Work Phone: [facility] 05-15-2024 14:46-0500 Systolic blood pressure 130 mm[Hg] Dr. Davey Egan DO Work Phone: [facility] 05-11-2024 14:33-0500 Body height 165.[address] Davey Egan DO Work Phone: [facility] 05-11-2024 14:33-0500 Body weight [address] Davey Egan DO Work Phone: [phone] [place] [address] 05-06-2024 18:55-0500 Body mass index (BMI) [Ratio] 31.8 kg/m2 Dr. Davey Egan DO Work Phone: [facility] 01-21-2024 13:18-0400 Body height 163.8 cm Tyler Dixon PHOTOGRAPHER'S MODEL.RADIOLOGY CLERK Work Phone: [facility] 01-21-2024 13:18-0400 Body mass index (BMI) [Ratio] 34.48 kg/m2 Tyler Dixon PHOTOGRAPHER'S MODEL.RADIOLOGY CLERK Work Phone: [facility] 01-21-2024 13:18-0400 Body temperature 97.9 [degF] Tyler Dixon PHOTOGRAPHER'S MODEL.RADIOLOGY CLERK Work Phone: [facility] 01-21-2024 13:18-0400 Body weight 92.53 kg Tyler Dixon PHOTOGRAPHER'S MODEL.RADIOLOGY CLERK Work Phone: [facility] 01-21-2024 13:18-0400 Diastolic blood pressure 73 mm[Hg] Tyler Dixon PHOTOGRAPHER'S MODEL.RADIOLOGY CLERK Work Phone: [facility] 01-21-2024 13:18-0400 Heart rate 67 /min Tyler Dixon PHOTOGRAPHER'S MODEL.RADIOLOGY CLERK Work Phone: [facility] 01-21-2024 13:18-0400 Systolic blood pressure 109 mm[Hg] Tyler Dixon PHOTOGRAPHER'S MODEL.RADIOLOGY CLERK Work Phone: [facility] 12-04-2023 13:18-0400 Body mass index (BMI) [Ratio] 35.1 kg/m2 Saige Wallis PHOTOGRAPHER'S MODEL.RADIOLOGY CLERK Work Phone: [facility] 12-04-2023 13:18-0400 Body temperature 97.39 [degF] Saige Wallis PHOTOGRAPHER'S MODEL.RADIOLOGY CLERK Work Phone: [facility] 12-04-2023 13:18-0400 Body weight 94.4 kg Saige Wallis PHOTOGRAPHER'S MODEL.RADIOLOGY CLERK Work Phone: [facility] 12-04-2023 13:18-0400 Diastolic blood pressure 77 mm[Hg] Saige Wallis PHOTOGRAPHER'S MODEL.RADIOLOGY CLERK Work Phone: [facility] 12-04-2023 13:18-0400 Heart rate 96 /min Saige Wallis PHOTOGRAPHER'S MODEL.RADIOLOGY CLERK Work Phone: [facility] 12-04-2023 13:18-0400 SaO2% (BldA) [Mass fraction] 99 % Saige Wallis PHOTOGRAPHER'S MODEL.RADIOLOGY CLERK Work Phone: [facility] 12-04-2023 13:18-0400 Systolic blood pressure 126 mm[Hg] Saige Wallis PHOTOGRAPHER'S MODEL.RADIOLOGY CLERK Work Phone: [facility] 09-23-2023 19:22-0400 Body mass index (BMI) [Ratio] 35.69 kg/m2 Kishan Bucio MD Work Phone: [facility] 09-23-2023 19:22-0400 Body temperature 98.4 [degF] Kishan Bucio MD Work Phone: [facility] 09-23-2023 19:22-0400 Body weight 96 kg Kishan Bucio MD Work Phone: [facility] 09-23-2023 19:22-0400 Diastolic blood pressure 70 mm[Hg] Kishan Bucio MD Work Phone: [facility] 09-23-2023 19:22-0400 Heart rate 60 /min Kishan Bucio MD Work Phone: [facility] 09-23-2023 19:22-0400 Respiratory rate 16 /min Kishan Bucio MD Work Phone: [facility] 09-23-2023 19:22-0400 SaO2% (BldA) [Mass fraction] 96 % Kishan Bucio MD Work Phone: [facility] 09-23-2023 19:22-0400 Systolic blood pressure 138 mm[Hg] Kishan Bucio MD Work Phone: [facility] 09-17-2023 14:57-0400 Body mass index (BMI) [Ratio] 35.69 kg/m2 Harmony Spence PHOTOGRAPHER'S MODEL.RADIOLOGY CLERK Work Phone: [facility] 09-17-2023 14:57-0400 Body temperature 98.1 [degF] Harmony Spence PHOTOGRAPHER'S MODEL.RADIOLOGY CLERK Work Phone: [facility] 09-17-2023 14:57-0400 Body weight 96 kg Harmony Praisler-Wood PHOTOGRAPHER'S MODEL.RADIOLOGY CLERK Work Phone: [facility] 09-17-2023 14:57-0400 Diastolic blood pressure 58 mm[Hg] Harmony Praisler-Wood PHOTOGRAPHER'S MODEL.RADIOLOGY CLERK Work Phone: [facility] 09-17-2023 14:57-0400 Heart rate 87 /min Harmony Praisler-Wood PHOTOGRAPHER'S MODEL.RADIOLOGY CLERK Work Phone: [facility] 09-17-2023 14:57-0400 Respiratory rate 18 /min Harmony Praisler-Wood PHOTOGRAPHER'S MODEL.RADIOLOGY CLERK Work Phone: [facility] 09-17-2023 14:57-0400 SaO2% (BldA) [Mass fraction] 94 % Harmony Praisler-Wood PHOTOGRAPHER'S MODEL.RADIOLOGY CLERK Work Phone: [facility] 09-17-2023 14:57-0400 Systolic blood pressure 96 mm[Hg] Harmony Praisler-Wood PHOTOGRAPHER'S MODEL.RADIOLOGY CLERK Work Phone: [facility] 08-01-2023 11:05-0400 Body mass index (BMI) [Ratio] 35.42 kg/m2 NA Carson PA-C Work Phone: [facility] 08-01-2023 11:05-0400 Body weight 95.25 kg NA Carson PA-C Work Phone: [facility] 08-01-2023 11:05-0400 Diastolic blood pressure 68 mm[Hg] NA Carson PA-C Work Phone: [facility] 08-01-2023 11:05-0400 Heart rate 57 /min NA Carson PA-C Work Phone: [facility] 08-01-2023 11:05-0400 Respiratory rate 18 /min NA Carson PA-C Work Phone: [facility] 08-01-2023 11:05-0400 SaO2% (BldA) [Mass fraction] 97 % NA Carson PA-C Work Phone: [facility] 08-01-2023 11:05-0400 Systolic blood pressure 102 mm[Hg] NOEMI Carson PA-C Work Phone: [facility] 07-27-2023 12:29-0400 Diastolic blood pressure 58 mm[Hg] Shona Athy PA-C Work Phone: [facility] 07-27-2023 12:29-0400 Systolic blood pressure 98 mm[Hg] Shona Athy PA-C Work Phone: [facility] 07-27-2023 11:12-0400 Body temperature 96.4 [degF] Shona Athy PA-C Work Phone: [facility] 07-27-2023 11:12-0400 Body weight 94 kg Shona Athy PA-C Work Phone: [facility] 07-27-2023 11:12-0400 Heart rate 66 /min Shona Athy PA-C Work Phone: [facility] 07-27-2023 11:12-0400 Respiratory rate 18 /min Shona Athy PA-C Work Phone: [facility] 07-27-2023 11:12-0400 SaO2% (BldA) [Mass fraction] 97 % Shona Athy PA-C Work Phone: [facility] 06-19-2023 13:32-0400 Body temperature 97.39 [degF] Saige Wallis PHOTOGRAPHER'S MODEL.RADIOLOGY CLERK Work Phone: [facility] 06-19-2023 13:32-0400 Body weight 95.21 kg Saige Wallis PHOTOGRAPHER'S MODEL.RADIOLOGY CLERK Work Phone: [facility] 06-19-2023 13:32-0400 Diastolic blood pressure 74 mm[Hg] Saige Wallis PHOTOGRAPHER'S MODEL.RADIOLOGY CLERK Work Phone: [facility] 06-19-2023 13:32-0400 Heart rate 70 /min Ethel Wallis PHOTOGRAPHER'S MODEL.RADIOLOGY CLERK Work Phone: [facility] 06-19-2023 13:32-0400 SaO2% (BldA) [Mass fraction] 97 % Saige Wallis PHOTOGRAPHER'S MODEL.RADIOLOGY CLERK Work Phone: [facility] 06-19-2023 13:32-0400 Systolic blood pressure 116 mm[Hg] Saige Wallis PHOTOGRAPHER'S MODEL.RADIOLOGY CLERK Work Phone: [facility] 04-17-2023 22:56-0500 Diastolic blood pressure 60 mm[Hg] [facility] 04-17-2023 22:56-0500 Heart rate 75 /min [facility] 04-17-2023 22:56-0500 Respiratory rate 18 /min [facility] 04-17-2023 22:56-0500 Systolic blood pressure 118 mm[Hg] [facility] 04-17-2023 21:19-0500 Body mass index (BMI) [Ratio] 34.2 kg/m2 [facility] 04-17-2023 21:19-0500 Body weight 96.[address] [facility] 04-17-2023 18:40-0500 Body height 167.[address] [facility] 04-17-2023 18:40-0500 Body temperature 97.4 [degF] [facility] 04-17-2023 18:40-0500 SaO2% (BldA) [Mass fraction] 100 % [facility] 12-11-2022 13:42-0400 Body temperature 97.39 [degF] Ethel Wallis PHOTOGRAPHER'S MODEL.RADIOLOGY CLERK Work Phone: [facility] 12-11-2022 13:42-0400 Body weight 95.94 kg Ethel Wallis PHOTOGRAPHER'S MODEL.RADIOLOGY CLERK Work Phone: [facility] 12-11-2022 13:42-0400 Diastolic blood pressure 69 mm[Hg] Saige Wallis PHOTOGRAPHER'S MODEL.RADIOLOGY CLERK Work Phone: [facility] 12-11-2022 13:42-0400 Heart rate 85 /min Saige Wallis PHOTOGRAPHER'S MODEL.RADIOLOGY CLERK Work Phone: [facility] 12-11-2022 13:42-0400 SaO2% (BldA) [Mass fraction] 98 % Saige Wallis PHOTOGRAPHER'S MODEL.RADIOLOGY CLERK Work Phone: [facility] 12-11-2022 13:42-0400 Systolic blood pressure 106 mm[Hg] Saige Wallis PHOTOGRAPHER'S MODEL.RADIOLOGY CLERK Work Phone: [facility] 12-04-2022 14:01-0400 Body weight 97.34 kg Cary Loredo PHOTOGRAPHER'S MODEL.RADIOLOGY CLERK Work Phone: [facility] 12-04-2022 14:01-0400 Diastolic blood pressure 48 mm[Hg] Cary Loredo PHOTOGRAPHER'S MODEL.RADIOLOGY CLERK Work Phone: [facility] 12-04-2022 14:01-0400 Heart rate 74 /min Cary Loredo PHOTOGRAPHER'S MODEL.RADIOLOGY CLERK Work Phone: [facility] 12-04-2022 14:01-0400 Systolic blood pressure 108 mm[Hg] Cary Loredo PHOTOGRAPHER'S MODEL.RADIOLOGY CLERK Work Phone: [facility] 11-14-2022 10:35-0400 Body temperature 97.7 [degF] Treatment Wstr Work Phone: [facility] 11-14-2022 10:35-0400 Diastolic blood pressure 66 mm[Hg] Treatment [facility]str Work Phone: [facility] 11-14-2022 10:35-0400 Heart rate 70 /min Treatment [facility]str Work Phone: [facility] 11-14-2022 10:35-0400 Respiratory rate 16 /min Treatment [facility]str Work Phone: [facility] 11-14-2022 10:35-0400 SaO2% (BldA) [Mass fraction] 100 % Treatment [facility] Work Phone: [facility] 11-14-2022 10:35-0400 Systolic blood pressure 103 mm[Hg] Treatment Wstr Work Phone: [facility] 11-12-2022 13:17-0400 Body temperature 96.8 [degF] Treatment Wstr Work Phone: [facility] 11-12-2022 13:17-0400 Diastolic blood pressure 58 mm[Hg] Treatment Wstr Work Phone: [facility] 11-12-2022 13:17-0400 Heart rate 73 /min Treatment [facility]str Work Phone: [facility] 11-12-2022 13:17-0400 Systolic blood pressure 125 mm[Hg] Treatment Wstr Work Phone: [facility] 11-06-2022 14:36-0400 Body temperature 96.8 [degF] Treatment Wstr Work Phone: [facility] 11-06-2022 14:36-0400 Diastolic blood pressure 49 mm[Hg] Treatment Wstr Work Phone: [facility] 11-06-2022 14:36-0400 Heart rate 64 /min Treatment Wstr Work Phone: [facility] 11-06-2022 14:36-0400 SaO2% (BldA) [Mass fraction] 100 % Treatment [facility]str Work Phone: [facility] 11-06-2022 14:36-0400 Systolic blood pressure 119 mm[Hg] Treatment Wstr Work Phone: [facility] 11-02-2022 13:00-0400 Body temperature 97.59 [degF] Treatment Wstr Work Phone: [facility] 11-02-2022 13:00-0400 Diastolic blood pressure 74 mm[Hg] Treatment Wstr Work Phone: [facility] 11-02-2022 13:00-0400 Heart rate 71 /min Treatment Wstr Work Phone: [facility] 11-02-2022 13:00-0400 Respiratory rate 18 /min Treatment [facility]str Work Phone: [facility] 11-02-2022 13:00-0400 SaO2% (BldA) [Mass fraction] 97 % Treatment [facility]str Work Phone: [facility] 11-02-2022 13:00-0400 Systolic blood pressure 122 mm[Hg] Treatment Wstr Work Phone: [facility] 06-07-2022 11:02-0500 Body height 162.6 cm Roberta Copenhagen PHOTOGRAPHER'S MODEL.RADIOLOGY CLERK Work Phone: [facility] 06-07-2022 11:02-0500 Body weight 93.17 kg Roberta Tara PHOTOGRAPHER'S MODEL.RADIOLOGY CLERK Work Phone: [facility] 06-07-2022 11:02-0500 Diastolic blood pressure 58 mm[Hg] Roberta Copenhagen PHOTOGRAPHER'S MODEL.RADIOLOGY CLERK Work Phone: [facility] 06-07-2022 11:02-0500 Systolic blood pressure 110 mm[Hg] Roberta Tara PHOTOGRAPHER'S MODEL.RADIOLOGY CLERK Work Phone: [facility] 06-07-2022 10:00-0500 Body height 165.1 cm Bryant Kaden PA-C Work Phone: [facility] 06-07-2022 10:00-0500 Body temperature 98.29 [degF] Bryant Kaden PA-C Work Phone: [facility] 06-07-2022 10:00-0500 Body weight 93.71 kg Bryant Kaden PA-C Work Phone: [facility] 06-07-2022 10:00-0500 Diastolic blood pressure 60 mm[Hg] Bryant Kaden PA-C Work Phone: [facility] 06-07-2022 10:00-0500 Heart rate 107 /min Bryant Kaden PA-C Work Phone: [facility] 06-07-2022 10:00-0500 SaO2% (BldA) [Mass fraction] 99 % Bryant Peekskill PA-C Work Phone: [facility] 06-07-2022 10:00-0500 Systolic blood pressure 112 mm[Hg] Bryant Peekskill PA-C Work Phone: [facility] 05-21-2022 14:35-0500 Body weight 92.99 kg NOEMI Carson PA-C Work Phone: [facility] 05-21-2022 14:35-0500 Diastolic blood pressure 60 mm[Hg] NA Carson PA-C Work Phone: [facility] 05-21-2022 14:35-0500 Heart rate 81 /min NA Carson PA-C Work Phone: [facility] 05-21-2022 14:35-0500 SaO2% (BldA) [Mass fraction] 97 % NA Carson PA-C Work Phone: [facility] 05-21-2022 14:35-0500 Systolic blood pressure 118 mm[Hg] NA Carson PA-C Work Phone: [facility] 03-07-2022 15:49-0500 Body weight 98.88 kg Cary Rajguru PHOTOGRAPHER'S MODEL.RADIOLOGY CLERK Work Phone: [facility] 03-07-2022 15:49-0500 Diastolic blood pressure 58 mm[Hg] Cary Rajguru PHOTOGRAPHER'S MODEL.RADIOLOGY CLERK Work Phone: [facility] 03-07-2022 15:49-0500 Heart rate 70 /min Cary Rajguru PHOTOGRAPHER'S MODEL.RADIOLOGY CLERK Work Phone: [facility] 03-07-2022 15:49-0500 Systolic blood pressure 104 mm[Hg] Cary Rajguru PHOTOGRAPHER'S MODEL.RADIOLOGY CLERK Work Phone: [facility] 02-21-2022 13:24-0500 Body height 163.8 cm Saige Wallis PHOTOGRAPHER'S MODEL.RADIOLOGY CLERK Work Phone: [facility] 02-21-2022 13:24-0500 Body temperature 97 [degF] Ethel Wallis PHOTOGRAPHER'S MODEL.RADIOLOGY CLERK Work Phone: [facility] 02-21-2022 13:24-0500 Body weight 99.56 kg Saige Wallis PHOTOGRAPHER'S MODEL.RADIOLOGY CLERK Work Phone: [facility] 02-21-2022 13:24-0500 Diastolic blood pressure 65 mm[Hg] Saige Wallis PHOTOGRAPHER'S MODEL.RADIOLOGY CLERK Work Phone: [facility] 02-21-2022 13:24-0500 Heart rate 68 /min Saige Mikeenter PHOTOGRAPHER'S MODEL.RADIOLOGY CLERK Work Phone: [facility] 02-21-2022 13:24-0500 Systolic blood pressure 119 mm[Hg] Saige Wallis PHOTOGRAPHER'S MODEL.RADIOLOGY CLERK Work Phone: [facility] 12-13-2021 15:32-0400 Body weight 99.79 kg Cary Cordobaru PHOTOGRAPHER'S MODEL.RADIOLOGY CLERK Work Phone: [facility] 12-13-2021 15:32-0400 Diastolic blood pressure 58 mm[Hg] Cary Rajguru PHOTOGRAPHER'S MODEL.RADIOLOGY CLERK Work Phone: [facility] 12-13-2021 15:32-0400 Systolic blood pressure 112 mm[Hg] Cary Rajguru PHOTOGRAPHER'S MODEL.RADIOLOGY CLERK Work Phone: [facility] 09-29-2021 14:24-0400 Body weight 99.34 kg NA Carson PA-C Work Phone: [facility] 09-29-2021 14:24-0400 Diastolic blood pressure 60 mm[Hg] NA Carson PA-C Work Phone: [facility] 09-29-2021 14:24-0400 Heart rate 56 /min NA Carson PA-C Work Phone: [facility] 09-29-2021 14:24-0400 Respiratory rate 16 /min NA Carson PA-C Work Phone: [facility] 09-29-2021 14:24-0400 SaO2% (BldA) [Mass fraction] 98 % NA Carson PA-C Work Phone: [facility] 09-29-2021 14:24-0400 Systolic blood pressure 116 mm[Hg] NA Carson PA-C Work Phone: [facility] 09-22-2021 14:41-0400 Diastolic blood pressure 64 mm[Hg] Leelee Farrar PHOTOGRAPHER'S MODEL.RADIOLOGY CLERK Work Phone: [facility] 09-22-2021 14:41-0400 Heart rate 53 /min Leelee Farrar PHOTOGRAPHER'S MODEL.RADIOLOGY CLERK Work Phone: [facility] 09-22-2021 14:41-0400 Respiratory rate 18 /min Leelee Farrar PHOTOGRAPHER'S MODEL.RADIOLOGY CLERK Work Phone: [facility] 09-22-2021 14:41-0400 SaO2% (BldA) [Mass fraction] 99 % Leelee Farrar PHOTOGRAPHER'S MODEL.RADIOLOGY CLERK Work Phone: [facility] 09-22-2021 14:41-0400 Systolic blood pressure 110 mm[Hg] Leelee Farrar PHOTOGRAPHER'S MODEL.RADIOLOGY CLERK Work Phone: [facility] 09-15-2021 21:02-0400 Body height 165.[address] [facility] Work Phone: 09-15-2021 21:02-0400 Body mass index (BMI) [Ratio] 37.9 kg/m2 [facility] Work Phone: 09-15-2021 21:02-0400 Body temperature 97.8 [degF] [facility] Work Phone: 09-15-2021 21:02-0400 Body weight 103.[address] [facility] Work Phone: 09-15-2021 21:02-0400 Diastolic blood pressure 48 mm[Hg] [facility] Work Phone: 09-15-2021 21:02-0400 Heart rate 58 /min [facility] Work Phone: 09-15-2021 21:02-0400 Respiratory rate 16 /min [facility] Work Phone: 09-15-2021 21:02-0400 SaO2% (BldA) [Mass fraction] 97 % [facility] Work Phone: 09-15-2021 21:02-0400 Systolic blood pressure 145 mm[Hg] [facility] Work Phone: 09-12-2021 14:14-0400 Body temperature 97.9 [degF] Treatment [facility]str Work Phone: [facility] 09-12-2021 14:14-0400 Diastolic blood pressure 60 mm[Hg] Treatment [facility]str Work Phone: [facility] 09-12-2021 14:14-0400 Heart rate 78 /min Treatment [facility]str Work Phone: [facility] 09-12-2021 14:14-0400 Respiratory rate 18 /min Treatment [facility]str Work Phone: [facility] 09-12-2021 14:14-0400 Systolic blood pressure 133 mm[Hg] Treatment [facility]str Work Phone: [facility] 09-11-2021 14:12-0400 Body temperature 97.5 [degF] Treatment [facility]str Work Phone: [facility] 09-11-2021 14:12-0400 Diastolic blood pressure 45 mm[Hg] Treatment [facility]str Work Phone: [facility] 09-11-2021 14:12-0400 Heart rate 70 /min Treatment [facility]str Work Phone: [facility] 09-11-2021 14:12-0400 Systolic blood pressure 103 mm[Hg] Treatment Wstr Work Phone: [facility] 08-30-2021 10:32-0400 Body temperature 97.3 [degF] Treatment [facility]str Work Phone: [facility] 08-30-2021 10:32-0400 Diastolic blood pressure 61 mm[Hg] Treatment [facility]str Work Phone: [facility] 08-30-2021 10:32-0400 Heart rate 70 /min Treatment [facility]str Work Phone: [facility] 08-30-2021 10:32-0400 SaO2% (BldA) [Mass fraction] 99 % Treatment [facility] Work Phone: [facility] 08-30-2021 10:32-0400 Systolic blood pressure 137 mm[Hg] Treatment [facility]str Work Phone: [facility] 08-28-2021 12:05-0400 Body temperature 97 [degF] Treatment [facility]str Work Phone: [facility] 08-28-2021 12:05-0400 Diastolic blood pressure 55 mm[Hg] Treatment [facility]str Work Phone: [facility] 08-28-2021 12:05-0400 Heart rate 66 /min Treatment [facility]str Work Phone: [facility] 08-28-2021 12:05-0400 Respiratory rate 18 /min Treatment [facility]str Work Phone: [facility] 08-28-2021 12:05-0400 SaO2% (BldA) [Mass fraction] 98 % [facility] Work Phone: [facility] 08-28-2021 12:05-0400 Systolic blood pressure 135 mm[Hg] Treatment [facility]str Work Phone: [facility] 08-24-2021 16:05-0400 Diastolic blood pressure 51 mm[Hg] Treatment [facility]str Work Phone: [facility] 08-24-2021 16:05-0400 Heart rate 79 /min Treatment [facility]str Work Phone: [facility] 08-24-2021 16:05-0400 Systolic blood pressure 114 mm[Hg] Treatment [facility]str Work Phone: [facility] 08-24-2021 15:37-0400 Body temperature 97.59 [degF] Treatment [facility]str Work Phone: [facility] 08-24-2021 15:37-0400 SaO2% (BldA) [Mass fraction] 99 % [facility] Work Phone: [facility] 08-17-2021 15:49-0400 Body weight 101.61 kg NA Carson PA-C Work Phone: [facility] 08-17-2021 15:49-0400 Diastolic blood pressure 60 mm[Hg] NA Carson PA-C Work Phone: [facility] 08-17-2021 15:49-0400 Heart rate 82 /min NA Carson PA-C Work Phone: [facility] 08-17-2021 15:49-0400 SaO2% (BldA) [Mass fraction] 96 % NA Carson PA-C Work Phone: [facility] 08-17-2021 15:49-0400 Systolic blood pressure 112 mm[Hg] NA Carson PA-C Work Phone: [facility] 08-15-2021 13:47-0400 Body temperature 98.49 [degF] Ethel Wallis PHOTOGRAPHER'S MODEL.RADIOLOGY CLERK Work Phone: [facility] 08-15-2021 13:47-0400 Body weight 103.87 kg Saige Wallis PHOTOGRAPHER'S MODEL.RADIOLOGY CLERK Work Phone: [facility] 08-15-2021 13:47-0400 Diastolic blood pressure 50 mm[Hg] Ethel Wallis PHOTOGRAPHER'S MODEL.RADIOLOGY CLERK Work Phone: [facility] 08-15-2021 13:47-0400 Heart rate 78 /min Saige Wallis PHOTOGRAPHER'S MODEL.RADIOLOGY CLERK Work Phone: [facility] 08-15-2021 13:47-0400 Systolic blood pressure 119 mm[Hg] Saige Wallis PHOTOGRAPHER'S MODEL.RADIOLOGY CLERK Work Phone: [facility] Encounters Encounter Date Encounter Type Care Provider Facility Start: 02-19-2025 ambulatory [facility] Facility: [facility] Start: 01-20-2025 ambulatory [facility] Facility: [facility] Start: 12-31-2024 ambulatory [facility] Facility: [facility] Start: 12-17-2024 End: 12-17-2024 ambulatory [facility] Facility:[facility] Comment on above: Other iron deficienc y anemia (Primary Dx); Iron malabsorption (HCC) Start: 12-15-2024 End: 12-15-2024 ambulatory Treatment Rm [facility] Work Phone: Hematology/Oncology Comment on above: Other iron deficienc y anemia (Primary Dx); Iron malabsorption (HCC) Start: 12-14-2024 End: 12-14-2024 Patient encounter procedure Monet Hanzel TARAH Work Phone: Pain Management Comment on above: Postlaminectomy synd shanique (Primary Dx); Chronic bilateral low back pain without sciatica Start: 12-14-2024 End: 12-14-2024 ambulatory MONET NEGRON Facility:[facility] Start: 12-08-2024 End: 12-08-2024 E-mail encounter from caregiver Monet Negron APRBESS Work Phone: Pain Management Start: 12-08-2024 End: 12-08-2024 Patient encounter procedure Monet Negron APRN.RADIOLOGY CLERK Work Phone: Pain Management Comment on above: appointment message Start: 12-01-2024 End: 12-01-2024 ambulatory Treatment Rm 15 [facility] Work Phone: Hematology/Oncology Comment on above: Other iron deficienc y anemia (Primary Dx); Iron malabsorption (HCC) Start: 11-30-2024 Registered Referred Yoko Erazo SHOW HOST OR HOSTESS -C -Cardiovascular Services Work Phone: Start: 11-30-2024 ambulatory Yoko Eddington Facility: [facility] Start: 11-30-2024 Non-patient / Non-visit Dr. Garcia Of yanet YIN -[facility] Work Phone: Start: 11-26-2024 End: 11-26-2024 ambulatory Treatment Rm 14 [facility] Work Phone: Hematology/Oncology Comment on above: Other iron deficienc y anemia (Primary Dx); Iron malabsorption (HCC) Start: 11-24-2024 End: 11-24-2024 ambulatory Treatment Rm 14 [facility] Work Phone: Hematology/Oncology Comment on above: Other iron deficienc y anemia (Primary Dx); Iron malabsorption (HCC) Start: 11-23-2024 ambulatory [facility] Facility: [facility] Start: 11-22-2024 End: 11-22-2024 Emergency department patient visit GABE HASTINGS MD [facility] Start: 11-20-2024 End: 11-20-2024 Subsequent hospital visit by physician Xr [facility] Work Phone: Radiology Comment on above: Low back pain, unspe cified back pain laterality, unspecified chronicity, unspecified whether sciatica present [M54.50] Start: 11-20-2024 End: 11-20-2024 Patient encounter procedure Tyler Dixon APRN.CNP Work Phone: Rheumatology Comment on above: Systemic lupus eryth ematosus, unspecified SLE type, unspecified organ involvement status (HCC) (Primary Dx); Fibromyalgia; Encounter for long-term (current) use of medications; Low back pain, unspecified back pain laterality, unspecified chronicity, unspecified whether sciatica present Start: 11-20-2024 End: 11-20-2024 ambulatory TYLER DIXON Facility:[facility] Start: 11-13-2024 End: 11-17-2024 Telephone encounter Saige Wallis APRN.CNP Work Phone: Hematology/Oncology Start: 11-12-2024 End: 11-12-2024 ambulatory YOKO ERAZO Facility:[facility] Start: 10-15-2024 End: 10-15-2024 ambulatory Yoko Erazo SHOW HOST OR HOSTESS-C Work Phone: -Physical Therapy Start: 10-15-2024 End: 10-15-[address] Hiram Tafoya MD -Physical Therapy Work Phone: Start: 09-30-2024 End: 09-30-2024 Refill Tyler Dixon APRN.CNP Work Phone: Rheumatology Comment on above: Refill Request Start: 09-02-2024 End: 09-02-2024 Chart abstracting Tyler Dixon APRN.CNP Work Phone: Rheumatology Comment on above: Abstract (PLQ eye ex am) Start: 09-02-2024 End: 09-02-2024 Refill Tyler Dixon APRN.CNP Work Phone: Rheumatology Comment on above: Refill Request Start: 09-01-2024 End: 09-01-[address] Davey Egan DO Work Phone: [facility] Work Phone: Start: 09-01-2024 End: 09-01-2024 Patient encounter procedure Yoko Erazo SHOW HOST OR HOSTESS-C -[facility] [place] Work Phone: Start: 09-01-[address] Hiram Tafoya MD -Physical Therapy Work Phone: Start: 09-01-2024 End: 09-01-2024 ambulatory Yoko Erazo Facility:[facility] Start: 08-21-2024 ambulatory [facility] Facility: [facility] Start: 07-22-2024 End: 07-28-2024 Telephone encounter Bri Ventura PA-C [facility] Comment on above: Appointment Start: 07-06-2024 End: 07-06-2024 Telephone encounter Tyler Dixon APRNMichaelRADIOLOGY CLERK Work Phone: Rheumatology Comment on above: Appointment Start: 07-05-2024 End: 07-06-2024 Refill Tyler Dixon PHOTOGRAPHER'S MODEL.RADIOLOGY CLERK Work Phone: Rheumatology Comment on above: Refill Request Start: 06-30-2024 End: 06-30-2024 Patient encounter procedure Saige Wallis PHOTOGRAPHER'S MODEL.RADIOLOGY CLERK Work Phone: Hematology/Oncology Start: 06-30-2024 End: 06-30-2024 ambulatory Saige Wallis PHOTOGRAPHER'S MODEL.RADIOLOGY CLERK Work Phone: Hematology/Oncology Comment on above: Other iron deficienc y anemia (Primary Dx) Start: 05-15-2024 Non-patient / Non-visit Dr. Noemi Lance MD -[facility] Work Phone: Start: 05-14-2024 Non-patient / Non-visit Dr. Noemi Lance MD -[facility] Work Phone: Start: 05-13-2024 Non-patient / Non-visit Dr. Noemi Lance MD -[facility] Work Phone: Start: 05-12-2024 Non-patient / Non-visit Dr. Noemi Lance MD -[facility] Work Phone: Start: 05-11-2024 Non-patient / Non-visit Dr. Noemi Lance MD -[facility] Work Phone: Start: 05-10-2024 Non-patient / Non-visit Dr. Warren Osborne [facility] Work Phone: Start: 05-09-2024 Non-patient / Non-visit Dr. Warren Osborne [facility] Work Phone: Start: 05-07-2024 ambulatory Yoko Erazo Facility: [facility] Start: 05-07-2024 End: 05-15-2024 Evaluation and management of inpatient Dr. Brigida Lacne MD -[facility] Work Phone: Start: 05-06-2024 End: 05-07-2024 Evaluation and management of inpatient Yoko Eddington Facility:[facility] Start: 05-06-2024 ambulatory [facility] Facility: [facility] Start: 04-10-2024 End: 04-10-2024 Refill Tyler Dixon APRN.RADIOLOGY CLERK Work Phone: Rheumatology Comment on above: Refill Request Start: 03-17-2024 End: 03-17-2024 ambulatory [facility] Facility:[facility] Start: 01-22-2024 End: 01-22-2024 Telephone encounter Jaki Verdugo MD Work Phone: [facility] Comment on above: Results Start: 01-21-2024 End: 01-21-2024 ambulatory TYLER DIXON Facility:[facility] Start: 01-21-2024 End: 01-21-2024 Patient encounter procedure Tyler Dixon PHOTOGRAPHER'S MODEL.RADIOLOGY CLERK Work Phone: Rheumatology Comment on above: Systemic lupus eryth ematosus, unspecified SLE type, unspecified organ involvement status (HCC) (Primary Dx); Fibromyalgia; Encounter for long-term (current) use of medications; Chronic kidney disease, unspecified CKD stage Start: 01-21-2024 End: 01-21-2024 ambulatory RANDALL CARSON Facility:[facility] Start: 12-05-2023 End: 12-10-2023 Telephone encounter Saige Wallis APRN.RADIOLOGY CLERK Work Phone: Hematology/Oncology Start: 12-04-2023 End: 12-04-2023 ambulatory Saige Wallis PHOTOGRAPHER'S MODEL.RADIOLOGY CLERK Work Phone: Hematology/Oncology Comment on above: Other iron deficienc y anemia (Primary Dx) Start: 12-04-2023 End: 12-04-2023 Patient encounter procedure Saige Wallis PHOTOGRAPHER'S MODEL.RADIOLOGY CLERK Work Phone: Hematology/Oncology Start: 11-17-2023 ambulatory Jaki Verdugo MD Work Phone: [facility] [place] Comment on above: Sucralfate 1GM Tab N OS Start: 10-23-2023 Refill Veda alejandro PHOTOGRAPHER'S MODEL.RADIOLOGY CLERK Work Phone: Family Medicine [place] Comment on above: Refill Request Start: 10-17-2023 End: 04-06-2024 Telephone encounter Saige Wallis APRN.RADIOLOGY CLERK Work Phone: Hematology/Oncology Comment on above: exhaustion Start: 09-23-2023 End: 09-23-2023 Patient encounter procedure Kishan Bucio MD Work Phone: [facility] Comment on above: Bronchitis (Primary Dx); Syncope, unspecified syncope type Start: 09-17-2023 End: 09-17-2023 Subsequent hospital visit by physician [facility] Work Phone: Radiology Comment on above: Acute cough [R05.1] Start: 09-17-2023 End: 09-17-2023 Patient encounter procedure Harmony Spence APRN.RADIOLOGY CLERK Work Phone: [facility] Comment on above: Acute cough (Primary Dx); Viral bronchitis Start: 09-14-2023 Refill Ailyn ellison PA-C Work Phone: [facility] Comment on above: Refill Request Start: 09-11-2023 ambulatory Ailyn Oquendo on PA-C Work Phone: [facility] Comment on above: Diabetic medication Start: 08-30-2023 Refill Ailyn Oquendo on PA-C Work Phone: [facility] Comment on above: Refill Request Start: 08-29-2023 Telephone encounter Veda Ambriz PHOTOGRAPHER'S MODEL.HOTEL MAINTENANCE WORKER Work Phone: [facility] Comment on above: Medication Problem Start: 08-23-2023 End: 08-23-2023 Refill Ailyn Carson PA-C Work Phone: [facility] Comment on above: Refill Request Asymptomatic [place] mc state [Z78.0] Start: 08-15-2023 Refill Veda alejandro PHOTOGRAPHER'S MODEL.HOTEL MAINTENANCE WORKER Work Phone: [facility] Comment on above: Refill Request Start: 08-01-2023 End: 08-01-2023 Patient encounter procedure Ailyn Carson PA-C Work Phone: [facility] Comment on above: Encounter for immuni zation (Primary Dx); Screening for diabetic retinopathy; Type 2 diabetes mellitus with stage 3b chronic kidney disease, without long-term current use of insulin ([facility]); Hx of encephalopathy; Chronic heart failure with preserved ejection fraction (HCC); Diastolic dysfunction, left ventricle; Mixed hyperlipidemia; Type 2 diabetes mellitus with diabetic neuropathy, without long-term current use of insulin (HCC); Stage 3 chronic renal impairment associated with type 2 diabetes mellitus (HCC); Chronic renal failure, stage 3b ([facility]); Panic disorder with agoraphobia; Fatigue, unspecified type; Severe recurrent major depression without psychotic features ([facility]); Chronic post-traumatic stress disorder (PTSD); Esophagitis; Current use of proton pump inhibitor; Tubular adenoma of colon; Malabsorption of iron; Vitamin D deficiency; Asymptomatic menopausal state Start: 07-28-2023 Refill Ailyn Oqunedo on PA-C Work Phone: [facility] Comment on above: Refill Request Start: 07-27-2023 End: 07-27-2023 Subsequent hospital visit by physician X[facility] Work Phone: Radiology Comment on above: Acute cough [R05.1] Start: 07-27-2023 End: 07-27-2023 Patient encounter procedure Shona Tucker PA-C Work Phone: [facility] Comment on above: Sinobronchitis (Prim suraj Dx) Start: 07-12-2023 Refill Ailyn Oquendo on PA-C Work Phone: [facility] Comment on above: Refill Request Start: 06-20-2023 Telephone encounter Saige melo APRN.RADIOLOGY CLERK Work Phone: Hematology/Oncology Start: 06-19-2023 End: 06-19-2023 ambulatory Saige Wallis PHOTOGRAPHER'S MODEL.RADIOLOGY CLERK Work Phone: Hematology/Oncology Comment on above: Other iron deficienc y anemia (Primary Dx) Start: 06-19-2023 End: 06-19-2023 Patient encounter procedure Saige Wallis PHOTOGRAPHER'S MODEL.RADIOLOGY CLERK Work Phone: [facility] Start: 05-15-2023 ambulatory Ailyn Oquendo on PA-C Work Phone: Internal Medicine [facility] Start: 04-17-2023 End: 04-17-2023 Emergency department patient visit [facility] Work Phone: Start: 03-08-2023 Refill Ailyn Oquendo on PA-C Work Phone: [facility] Comment on above: Refill Request Start: 02-15-2023 Refill Jaki Verdugo MD Work Phone: [facility] Comment on above: Refill Request Start: 2023 Refill Tyler Dixon PHOTOGRAPHER'S MODEL.RADIOLOGY CLERK Work Phone: Rheumatology Comment on above: Refill Request Start: 01-22-2023 ambulatory Cary joyner PHOTOGRAPHER'S MODEL.RADIOLOGY CLERK Work Phone: Psychiatry Comment on above: My prescription Start: 12-11-2022 End: 12-11-2022 ambulatory Saige Wallis PHOTOGRAPHER'S MODEL.RADIOLOGY CLERK Work Phone: Hematology/Oncology Comment on above: Other iron deficienc y anemia (Primary Dx) Start: 12-11-2022 End: 12-11-2022 Patient encounter procedure Saige Wallis PHOTOGRAPHER'S MODEL.RADIOLOGY CLERK Work Phone: [facility] Start: 12-11-2022 Telephone encounter Saige melo PHOTOGRAPHER'S MODEL.RADIOLOGY CLERK Work Phone: Hematology/Oncology Comment on above: AVS 12/11/22 Start: 12-04-2022 End: 12-04-2022 Patient encounter procedure Cary Loredo PHOTOGRAPHER'S MODEL.RADIOLOGY CLERK Work Phone: Psychiatry Comment on above: Chronic post-traumat ic stress disorder (PTSD) (Primary Dx); Moderate episode of recurrent major depressive disorder (HCC); Panic disorder with agoraphobia Start: 11-19-2022 Refill Cary joyner PHOTOGRAPHER'S MODEL.RADIOLOGY CLERK Work Phone: Psychiatry Comment on above: Refill Request Start: 11-14-2022 End: 11-14-2022 [facility] Work Phone: H[facility]ology/Oncology Comment on above: Other iron deficienc y anemia (Primary Dx); Iron malabsorption Start: 11-12-2022 End: 11-12-2022 ambulatory Treatment Rm 13 [facility] [employer] Work Phone: Hematology/Oncology Comment on above: Other iron deficienc y anemia (Primary Dx); Iron malabsorption Start: 11-06-2022 End: 11-06-2022 ambulatory Treatment Rm 13 [facility] [employer] Work Phone: Hematology/Oncology Comment on above: Other iron deficienc y anemia (Primary Dx); Iron malabsorption Start: 11-02-2022 End: 11-02-2022 ambulatory Treatment Rm 13 [facility] Work Phone: Hematology/Oncology Comment on above: Other iron deficienc y anemia (Primary Dx); Iron malabsorption Start: 10-28-2022 Telephone encounter Lavelle schneider DO Work Phone: Hematology/Oncology Comment on above: Appointment Start: 10-26-2022 Refill Jaki Verdugo MD Work Phone: [facility] Comment on above: Refill Request Start: 10-24-2022 ambulatory Ailyn Oquendo on PA-C Work Phone: [facility] Comment on above: Depression med Start: 10-23-2022 ambulatory Saige holliday PHOTOGRAPHER'S MODEL.RADIOLOGY CLERK Work Phone: Hematology/Oncology Comment on above: Test results Start: 10-06-2022 Refill Aiyln Oquendo on PA-C Work Phone: [facility] Comment on above: Refill Request Start: 09-20-2022 Refill Ailyn Oquendo on PA-C Work Phone: [facility] Comment on above: Refill Request Start: 09-10-2022 Refill Jaki Verdugo MD Work Phone: [facility] Comment on above: Refill Request Start: 08-20-2022 Orders Only Tyler Dixon PHOTOGRAPHER'S MODEL.RADIOLOGY CLERK Work Phone: Rheumatology Comment on above: Systemic lupus eryth ematosus, unspecified SLE type, unspecified organ involvement status (HCC) (Primary Dx) Start: 08-16-2022 End: 08-16-2022 ambulatory [facility] Facility:[facility] Start: 08-12-2022 Refill Ailyn Oquendo on PA-C Work Phone: [facility] Comment on above: Refill Request Start: 07-23-2022 End: 07-23-2022 ambulatory [facility] Work Phone: Start: 07-23-2022 End: 07-23-2022 Patient encounter procedure [facility] Start: 06-19-2022 Telephone encounter Ailyn Oquendoon PA-C Work Phone: [facility] Comment on above: Insurance Authorizat ion (Trulicity ) Start: 06-07-2022 End: 06-07-2022 Patient encounter status Roberta Lanza TARAH Work Phone: OB/Gynecology Start: 06-07-2022 End: 06-07-2022 Patient encounter procedure Roebrta Lanza CHLOE.TODD Work Phone: OB/Gynecology Comment on above: Encounter for gyneco logical examination (general) (routine) without abnormal findings (Primary Dx); Pap smear for cervical cancer screening; Encounter for screening mammogram for breast cancer; Vaginal irritation Change in bowel habi ts (Primary Dx); History of colonic polyps; Blood in stool; Nausea; Gastroesophageal reflux disease, unspecified whether esophagitis present Start: 05-24-2022 Telephone encounter Tyler sylvester APRN.CNP Work Phone: Rheumatology Comment on above: Appointment Start: 05-24-2022 End: 05-24-2022 ambulatory Tyler Dixon APRN.CNP Work Phone: Rheumatology Comment on above: Systemic lupus eryth ematosus, unspecified SLE type, unspecified organ involvement status (HCC) (Primary Dx); Fibromyalgia; Encounter for long-term (current) use of medications; Chronic kidney disease, unspecified CKD stage Start: 05-24-2022 End: 05-24-2022 Telemedicine consultation with patient Tyler Dixon TARAH Work Phone: [facility] Start: 05-23-2022 ambulatory Ailyn ellison PA-C Work Phone: Internal Medicine [facility] Start: 05-21-2022 End: 05-21-2022 Patient encounter procedure Ailyn Carson PA-C Work Phone: [facility] [place] Comment on above: Change in bowel func tion (Primary Dx); GERD without esophagitis; Screening for colon cancer; Screening for cervical cancer; Type 2 diabetes mellitus with diabetic neuropathy, without long-term current use of insulin (HCC); Mixed hyperlipidemia; Hematochezia; Weight loss Start: 05-11-2022 ambulatory Ailyn ellison PA-C Work Phone: [facility] [place] Comment on above: Jardiance Refill Request Start: 04-27-2022 Telephone encounter Ailyn Koffi Carson PA-C Work Phone: [facility] Comment on above: Patient Request Start: 04-16-2022 Refill Tyler Dixon APRN.RADIOLOGY CLERK Work Phone: Rheumatology Comment on above: Refill Request Start: 03-30-2022 Refill Ailyn Rain Jere ellison PA-C Work Phone: [facility] Comment on above: Refill Request Start: 03-23-2022 Refill Jaki Verdugo MD Work Phone: [facility] Comment on above: Refill Request Start: 03-07-2022 End: 03-07-2022 Patient encounter procedure Cary Loredo APRN.RADIOLOGY CLERK Work Phone: Psychiatry Comment on above: Panic disorder with agoraphobia (Primary Dx); Major depressive disorder, recurrent episode, moderate (HCC); Tremors of nervous system; Medical marijuana use; Chronic post-traumatic stress disorder (PTSD) Start: 02-22-2022 ambulatory Saige Martini r PHOTOGRAPHER'S MODEL.RADIOLOGY CLERK Work Phone: Hematology/Oncology Comment on above: Psycho doc Start: 02-21-2022 End: 02-21-2022 ambulatory Saige Wallis PHOTOGRAPHER'S MODEL.RADIOLOGY CLERK Work Phone: Hematology/Oncology Comment on above: Other iron deficienc y anemia (Primary Dx) Start: 02-21-2022 End: 02-21-2022 Patient encounter procedure Saige Wallis APRN.RADIOLOGY CLERK Work Phone: [facility] Start: 02-20-2022 Orders Only Saige Martini r PHOTOGRAPHER'S MODEL.RADIOLOGY CLERK Work Phone: Hematology/Oncology Start: 01-01-2022 End: 01-01-2022 Subsequent hospital visit by physician [facility] Work Phone: Radiology Comment on above: Postural kyphosis, u nspecified spinal region [M40.00] Start: 12-13-2021 End: 12-13-2021 Patient encounter procedure Cary Loreod APRN.RADIOLOGY CLERK Work Phone: Psychiatry Comment on above: Major depressive dis order, recurrent episode, moderate (HCC) (Primary Dx); Panic disorder with agoraphobia; Tremors of nervous system; Chronic post-traumatic stress disorder (PTSD); Medical marijuana use Start: 12-07-2021 ambulatory Tyler Dixon PHOTOGRAPHER'S MODEL.RADIOLOGY CLERK Work Phone: Rheumatology Comment on above: Video Chat Start: 12-07-2021 Telephone encounter Tyler sylvester PHOTOGRAPHER'S MODEL.RADIOLOGY CLERK Work Phone: Rheumatology Comment on above: Appointment Start: 11-28-2021 Telephone encounter Jaki Verdugo MD Work Phone: [facility] [place] Comment on above: Medication question Start: 11-24-2021 Refill Jaki Verdugo MD Work Phone: [facility] [place] Comment on above: Refill Request Start: 11-19-2021 Refill Chasity Gamboa APRN.RADIOLOGY CLERK Work Phone: General Surgery Comment on above: Refill Request Start: 11-19-2021 Refill Chasity Gamboa PHOTOGRAPHER'S MODEL.RADIOLOGY CLERK Work Phone: General Surgery Comment on above: Refill Request Start: 11-11-2021 ambulatory Jaki Verdugo MD Work Phone: Family [facility] [place] Comment on above: Blood sugar Start: 11-06-2021 ambulatory Ailyn Oquendo on PA-C Work Phone: Family Medicine [place] Comment on above: Jardiance Refill Request Start: 10-20-2021 Refill Ailyn Oquendo on PA-C Work Phone: [facility] [place] Comment on above: Refill Request Start: 10-04-2021 ambulatory Ailyn Oquendo on PA-C Work Phone: [facility] [place] Comment on above: Lab work Start: 10-04-2021 Telephone encounter Jaki Verdugo MD Work Phone: Family [facility] [place] Comment on above: Medication Question Refill Request Start: 09-30-2021 Refill Chasity Gamboa APRN.RADIOLOGY CLERK Work Phone: [facility] Comment on above: Refill Request Start: 09-29-2021 End: 09-29-2021 Patient encounter procedure Ailyn Koffi Carson PA-C Work Phone: [facility] Comment on above: Diastolic dysfunctio n, left ventricle (Primary Dx); Acute on chronic diastolic congestive heart failure (HCC); Bradycardia; REINALDO (obstructive sleep apnea); Mixed hyperlipidemia; Chronic renal insufficiency, stage 3 (moderate) (HCC); Type 2 diabetes mellitus with diabetic neuropathy, with long-term current use of insulin (HCC); Lupus (HCC); Fibromyalgia; Panic disorder with agoraphobia; Major depressive disorder, recurrent severe without psychotic features (HCC); Chronic post-traumatic stress disorder (PTSD); Esophagitis; Current use of proton pump inhibitor Start: 09-29-2021 ambulatory Ailyn Koffi CUEVA-C Work Phone: [facility] Comment on above: Metformin Start: 09-29-2021 Telephone encounter Jaki Verdugo MD Work Phone: [facility] Comment on above: Question Start: 09-22-2021 End: 09-22-2021 Office outpatient visit 25 minutes Leelee Farrar APRN.RADIOLOGY CLERK Work Phone: [facility] Comment on above: Fall, subsequent enc ounter (Primary Dx); Type 2 diabetes mellitus with diabetic neuropathy, with long-term current use of insulin ([facility]); Bradycardia Start: 09-15-2021 End: 09-15-2021 Emergency department patient visit [facility]gency [facility] Start: 09-12-2021 End: 09-12-2021 ambulatory Treatment Rm 5 [facility] Work Phone: Hematology/Oncology Comment on above: Other iron deficienc y anemia (Primary Dx) Start: 09-11-2021 End: 09-11-2021 ambulatory Treatment Rm 4 [facility] Work Phone: Hematology/Oncology Comment on above: Other iron deficienc y anemia (Primary Dx) Start: 09-01-2021 End: 09-01-2021 [facility] Cary Loredo APRN.RADIOLOGY CLERK Work Phone: Psychiatry Comment on above: Major depressive dis order, recurrent episode, moderate (HCC) (Primary Dx); Panic disorder with agoraphobia; Tremors of nervous system; Chronic post-traumatic stress disorder (PTSD) Start: 08-30-2021 End: 08-30-2021 ambulatory Treatment Rm 12 [facility] Work Phone: Hematology/Oncology Comment on above: Other iron deficienc y anemia (Primary Dx) Start: 08-28-2021 End: 08-28-2021 ambulatory Treatment Rm 12 [facility] Work Phone: Hematology/Oncology Comment on above: Other iron deficienc y anemia (Primary Dx) Start: 08-24-2021 End: 08-24-2021 ambulatory Treatment Rm 8 [facility] Work Phone: Hematology/Oncology Comment on above: Other iron deficienc y anemia (Primary Dx) Start: 08-22-2021 Refill Chasity Gamboa APRN.CNP Work Phone: [facility] Comment on above: Refill Request Start: 08-17-2021 End: 08-17-[address] Carson PA-C Work Phone: [facility] Comment on above: Type 2 diabetes marisabel itus with diabetic neuropathy, with long- term current use of insulin (HCC) (Primary Dx); Mixed hyperlipidemia; Renal insufficiency; Fatigue, unspecified type; Chronic depression; Lupus (HCC); REINALDO (obstructive sleep apnea); Fibromyalgia; Esophagitis; Malabsorption of iron; DDD (degenerative disc disease), lumbar; Anemia, unspecified type; Diastolic dysfunction, left ventricle; Chronic renal insufficiency, stage 3 (moderate) (HCC); Major depressive disorder, recurrent severe without psychotic features (HCC); Panic disorder with agoraphobia Start: 08-16-2021 Telephone encounter Saige melo APRN.RADIOLOGY CLERK Work Phone: Hematology/Oncology Comment on above: Results Future Appointment Start: 08-15-2021 End: 08-15-2021 ambulatory Saige Wallis APRN.RADIOLOGY CLERK Work Phone: Hematology/Oncology Comment on above: Other iron deficienc y anemia (Primary Dx); Anemia, unspecified type Start: 08-15-2021 End: 08-15-2021 Patient encounter procedure Saige Wallis PHOTOGRAPHER'S MODEL.RADIOLOGY CLERK Work Phone: [place] [facility] Start: 08-14-2021 Telephone encounter Saige melo PHOTOGRAPHER'S MODEL.RADIOLOGY CLERK Work Phone: Radiology Comment on above: Orders Start: 08-11-2021 Refill Jaki Verdugo MD Work Phone: Family Medicine [place] Comment on above: Refill Request Start: 08-05-2021 Refill Jaki Verdugo MD Work Phone: [facility] [place] Comment on above: Refill Request Start: 08-04-2021 Refill Chasity Gamboa PHOTOGRAPHER'S MODEL.RADIOLOGY CLERK Work Phone: [facility] [place] Comment on above: Refill Request Start: 08-01-2021 ambulatory Jaki Verdugo MD Work Phone: Internal Medicine [facility] Start: 07-11-2021 Refill [facility] Provider Rose gy Comment on above: Refill Request Start: 07-07-2021 Refill Jaki Verdugo MD Work Phone: [facility] [place] Comment on above: Refill Request Start: 05-04-2020 End: 05-04-2020 Subsequent hospital visit by physician Xr [facility] [place] Work Phone: Radiology Comment on above: Cough [R05] Start: 08-30-2017 End: 08-30-2017 Emergency department patient visit PALLAVI ALFONZO Facility:B Start: 02-25-2017 End: 02-28-2017 Evaluation and management of inpatient ERIC [facility] Start: 02-06-2017 End: 02-06-2017 Ambulatory [facility]IC [facility] Start: 01-14-2017 End: 01-14-[address] [facility] Procedures Date Procedure Procedure Detail Performing Clinician Start: 09-01-[address] Sridhar Egan DO Work Phone: Start: 09-01-2024 Urine microalbumin/creatinine ratio measurement Dr. Davey Egan DO Work Phone: Start: 09-01-2024 Urnls dip stick/tabl et reagent auto microscopy Dr. Davey Egan DO Work Phone: Start: 09-01-2024 Vitamin D, 25-hydrox y measurement Dr. Davey Egan DO Work Phone: Comment on above: Vitamin D StatusDefi ciency: <20 ng/mL (50nmol/L)Insufficiency: 20-30 ng/mL (50-75 nmol/L)Sufficiency: 30-100 ng/mL (75-250 nmol/L)Toxicity: >100 ng/mL (>250 nmol/L) Start: 05-15-[address] Davey Egan DO Work Phone: Start: 05-15-2024 Measurement of renal function Dr. Davey Egan DO Work Phone: Comment on above: GFR Calc Start: 05-11-[address] Sridhar Egan DO Work Phone: Start: 05-07-2024 Urnls dip stick/tabl et reagent auto microscopy Dr. Davey Egan DO Work Phone: Start: 05-06-2024 Plain chest X-ray Dr. Parag Egan DO Work Phone: Start: 05-06-2024 End: 05-06-2024 X-ray of ankle, three or more views Dr. Davey Egan DO Work Phone: Start: 09-17-2023 Radiologic exam ches t 2 views Harmony Spence APRN.CNP Work Phone: Start: 07-27-2023 Radiologic exam ches t 2 views Shona Tucker PA-C Work Phone: Start: 07-23-2022 CT of lower limb wit h contrast Start: 01-01-2022 Radex spine thoracic 3 views Ailyn Carson PA-C Work Phone: Start: 09-22-2021 Gluc bld gluc mntr d ev cleared fda spec home use Leelee Farrar APRN.RADIOLOGY CLERK Work Phone: Start: 09-15-2021 Plain X-ray of tibia and fibula Start: 09-15-2021 X-ray of both feet Start: 09-15-2021 Radiologic examinati on of knee Start: 05-04-2020 Radiologic exam ches t 2 views Kishan Bucio MD Work Phone: Start: 12-24-2019 Colonoscopy Jaki Tapia MD Work Phone: Start: 06-12-2017 Mammography Jaki Tapia MD Work Phone: Arthroplasty of knee GABE FROST MD Comment on above: left Decompression of med tanika nerve GABE HASTINGS MD Comment on above: bilateral Lumbar (qualifier value) PRABHU HASTINGS MD Comment on above: fusion Miscellaneous operations PRABHU HASTINGS MD Comment on above: spinal stimulator Open reduction of fr acture with internal fixation GABE HASTINGS MD Comment on above: right wrist right ankle with rem oval of hardware Plan of Treatment Date Care Activity Detail Author Start: 11-20-2025 Creatinine measurement Serum Creatinine [facility] Start: 11-12-2025 Complete blood count Hemoglobin/Hematocrit [facility] Start: 09-22-2025 End: 09-22-2025 Follow-up encounter 09/22/2025 12:30 PM EDT [facility] [address] [place] [address] Tyler Dixon APRN.RADIOLOGY CLERK [address] [place] [address] 10 mo follow up Rheumatology Comment on above: 10 mo follow up Start: 08-04-2025 Glaucoma screening Dilated Retinal Exam [facility] Start: 08-02-2025 End: 08-02-2025 Patient encounter procedure 08/02/2025 4:00 PM EDT Office Visit Rheumatology [address] [place] [address] Rachna Salazar MD [address] [place] [address] 5mo follow up Rheumatology Comment on above: 5mo follow up Start: 06-30-2025 Complete blood count Hemoglobin/Hematocrit [facility] Start: 05-20-2025 End: 05-20-2025 ambulatory 05/20/2025 10:00 AM EST Visit (SP) Office Hematology/Oncology [address] [place] [address] Saige Wallis APRN.RADIOLOGY CLERK [address] [place] [address] 6 MO OV/LAB EARLY* Hematology/Oncology Comment on above: 6 MO OV/LAB EARLY* Start: 05-13-2025 End: 05-13-2025 ambulatory 05/13/2025 10:00 AM EST Results Only [place] [facility] [address] [place] [address] CBC/IRON STUDIES* [place] [facility] Comment on above: CBC/IRON STUDIES* Start: 03-17-2025 Complete blood count Hemoglobin/Hematocrit [facility] Start: 02-17-2025 End: 02-17-2025 ambulatory 02/17/2025 10:00 AM EST Results Only [place] [facility] [address] [place] [address] CBC/IRON STUDIES* [place] Gannwn [facility] Comment on above: CBC/IRON STUDIES* Start: 01-20-2025 Complete blood count Hemoglobin/Hematocrit [facility] Start: 01-20-2025 Creatinine measurement Serum Creatinine [facility] Start: 12-23-2024 Colonoscopy COLONOSCOPY [facility] Start: 12-23-2024 COLORECTAL CANCER SCREENING COLORECTAL CANCER SCREENING [facility] Start: 12-23-2024 Screening for malignant neoplasm of colon [facility] Start: 12-17-2024 End: 12-17-2024 ambulatory 12/17/2024 2:30 PM EDT Infusion Center Hematology/Oncology [address] [place] [address] 2ND FLOOR Hematology/Oncology Comment on above: 2ND FLOOR Start: 12-15-2024 End: 12-15-2024 ambulatory 12/15/2024 2:00 PM EDT Infusion Center Hematology/Oncology [address] [place] [address] 2ND FLOOR Hematology/Oncology Comment on above: 2ND FLOOR Start: 12-14-2024 End: 12-14-2024 Patient encounter procedure 12/14/2024 10:45 AM EDT Office Visit Pain Management [address] [place] [address] Monet Negron APRN.RADIOLOGY CLERK [address] [place] [address] Low back pain, unspecified back pain laterality, unspecified chronicity, unspecified whether sciatica present [M54.50] Pain Management Comment on above: Low back pain, unspecified back pain lat erality, unspecified chronicity, unspecified whether sciatica present [M54.50] Start: 12-08-2024 End: 12-08-2024 ambulatory 12/08/2024 3:00 PM EDT Infusion Center Hematology/Oncology [address] [place] [address] 2ND FLOOR Hematology/Oncology Comment on above: 2ND FLOOR Start: 12-07-2024 Influenza vaccination [facility] Start: 12-03-2024 End: 12-03-2024 ambulatory 12/03/2024 3:30 PM EDT Infusion Center Hematology/Oncology [address] [place] [address] 2ND FLOOR Hematology/Oncology Comment on above: 2ND FLOOR Start: 12-03-2024 Complete blood count Hemoglobin/Hematocrit [facility] Start: 12-01-2024 End: 12-01-2024 ambulatory 12/01/2024 3:00 PM EDT Infusion Center Hematology/Oncology [address] [place] [address] 2ND FLOOR Hematology/Oncology Comment on above: 2ND FLOOR Start: 11-26-2024 End: 11-26-2024 ambulatory 11/26/2024 10:00 AM [facility] Hematology/Oncology [address] [place] [address] 2ND FLOOR Hematology/Oncology Comment on above: 2ND FLOOR Start: 11-24-2024 End: 11-24-2024 ambulatory 11/24/2024 3:30 PM [facility] Hematology/Oncology [address] [place] [address] 2ND FLOOR Hematology/Oncology Comment on above: 2ND FLOOR Start: 11-20-2024 End: 11-19-2025 Alanine aminotransferase [Enzymatic activity/volume] in Serum or Plasma [facility] Comment on above: Expected: 11/20/2024 (Approximate), Expi res: 11/19/2025 Start: 11-20-2024 End: 11-19-2025 Aspartate aminotransferase [Enzymatic activity/volume] in Serum or Plasma [facility] Work Phone: Comment on above: Expected: 11/20/2024 (Approximate), Expi res: 11/19/2025 Start: 11-20-2024 End: 11-19-2025 C reactive protein [Mass/volume] in Serum or Plasma [facility] Comment on above: Expected: 11/20/2024 (Approximate), Expi res: 11/19/2025 Start: 11-20-2024 End: 11-19-2025 Complement C3 [Mass/volume] in Serum or Plasma [facility] Comment on above: Expected: 11/20/2024 (Approximate), Expi res: 11/19/2025 Start: 11-20-2024 End: 11-19-2025 Complement C4 [Mass/volume] in Serum or Plasma [facility] Comment on above: Expected: 11/20/2024 (Approximate), Expi res: 11/19/2025 Start: 11-20-2024 End: 11-19-2025 Creatinine and Glomerular filtration rate.predicted panel - Serum, Plasma or Blood [facility] Comment on above: Expected: 11/20/2024 (Approximate), Expi res: 11/19/2025 Start: 11-20-2024 End: 11-19-2025 DNA ANTIBODY DS BLD [facility] Comment on above: Expected: 11/20/2024 (Approximate), Expi res: 11/19/2025 Start: 11-20-2024 End: 11-19-2025 Erythrocyte sedimentation rate [facility] Comment on above: Expected: 11/20/2024 (Approximate), Expi res: 11/19/2025 Start: 11-20-2024 End: 11-19-2025 Protein/Creatinine [Mass Ratio] in Urine PROTEIN / CREATININE RATIO Lab Routine Systemic lupus erythematosus, unspecified SLE type, unspecified organ involvement status (HCC) Encounter for long-term (current) use of medications Expected: 11/20/2024 (Approximate), Expires: 11/19/2025 [facility] Comment on above: Expected: 11/20/2024 (Approximate), Expi res: 11/19/2025 Start: 11-20-2024 End: 11-19-2025 URINALYSIS, DIPSTICK ONLY URINALYSIS, DIPSTICK ONLY Lab Routine Systemic lupus erythematosus, unspecified SLE type, unspecified organ involvement status (HCC) Encounter for long-term (current) use of medications Expected: 11/20/2024 (Approximate), Expires: 11/19/2025 [facility] Comment on above: Expected: 11/20/2024 (Approximate), Expi res: 11/19/2025 Start: 11-20-2024 End: 11-20-2024 Patient encounter procedure 11/20/2024 1:30 PM EDT Office Visit Rheumatology [address] [place] [address] Tyler Dixon, CHLOE.RADIOLOGY CLERK [address] [place] [address] 10mo follow up Rheumatology Comment on above: 10mo follow up Start: 10-22-2024 Complete blood count Hemoglobin/Hematocrit [facility] Start: 09-22-2024 End: 09-22-2024 Patient encounter procedure 09/22/2024 2:15 PM EDT Office Visit Gastroenterology [place] [address] [place] [id number] Concepción Philip, PHOTOGRAPHER'S MODEL.RADIOLOGY CLERK [address] [place] [address] New patient Gastroenterology [place] Comment on above: New patient Start: 09-09-2024 Complete blood count Hemoglobin/Hematocrit [facility] Start: 08-18-2024 Complete blood count Hemoglobin/Hematocrit [facility] Start: 08-18-2024 Creatinine measurement Serum Creatinine [facility] Start: 08-18-2024 Hepatitis B screening Urine Albumin:Creatinine Ratio [facility] Start: 08-18-2024 Hepatitis B surface antibody level LDL Cholesterol [facility] Start: 07-31-2024 Annual PCP Team Chronic Disease Visit Annual PCP Team Chronic Disease Visit [facility] Start: 07-31-2024 Diabetic foot examination Diabetic Foot Exam [facility] Start: 07-22-2024 Complete blood count Hemoglobin/Hematocrit [facility] Start: 07-22-2024 Creatinine measurement Serum Creatinine [facility] Start: 07-22-2024 Hepatitis B surface antibody level LDL Cholesterol [facility] Start: 07-21-2024 Hemoglobin A1c measurement HbA1C [facility] Start: 07-08-2024 End: 07-08-2024 Follow-up encounter 07/08/2024 10:30 AM EDT [facility] Rheumatology [address] [place] [address] Tyler Dixon, PHOTOGRAPHER'S MODEL.RADIOLOGY CLERK [address] [place] [address] 5mth Lupus follow up Rheumatology Comment on above: 5mth Lupus follow up Start: 06-30-2024 End: 06-30-2024 Patient encounter procedure 06/30/2024 1:00 PM EDT Office Visit Rheumatology [address] [place] [address] Tyler Dixon, PHOTOGRAPHER'S MODEL.RADIOLOGY CLERK [address] [place] [address] 5mo follow up Rheumatology Comment on above: 5mo follow up Start: 06-18-2024 Complete blood count Hemoglobin/Hematocrit [facility] Start: 06-03-2024 End: 06-03-2024 Follow-up encounter 06/03/2024 2:00 PM EST Visit (SP) Office Hematology/Oncology [address] [place] [address] Saige WallisCHLOE.RADIOLOGY CLERK [address] [place] [address] 6 mo follow up Hematology/Oncology Comment on above: 6 mo follow up Start: 06-03-2024 End: 06-03-2024 ambulatory 06/03/2024 1:30 PM EST Results Only [place] [facility] [address] [place] [address] 6 mo CBC/iron studies for Saige Wallis [place] [facility] Comment on above: 6 mo CBC/iron studies for Saige holliday Start: 05-15-2024 Patient discharge [facility] Start: 05-15-2024 Referral to service [facility] Start: 05-11-2024 Introduction of urinary catheter [facility] Start: 05-07-2024 Introduction of urinary catheter [facility] Start: 05-07-2024 End: 05-07-2024 [facility] Start: 05-07-2024 Admission procedure [facility] Start: 05-06-2024 Following clinical pathway protocol [facility] Start: 05-06-2024 Ambulation without limitation [facility] Start: 05-06-2024 Assessment of risk of venous thromboembolism [facility] Start: 05-06-2024 Cardiac monitoring [facility] Start: 05-06-2024 Care regimes management [facility] Start: 05-06-2024 Insertion of catheter into peripheral vein [facility] Start: 05-06-2024 Notification of physician [facility] Start: 05-06-2024 Providing care according to standard [facility] Start: 05-06-2024 Referral to occupational therapist [facility] Start: 05-06-2024 Referral to service [facility] Start: 05-06-2024 End: 05-06-2024 [facility] Start: 05-06-2024 Admission procedure [facility] Start: 04-08-2024 Advance Directive Discussion Advance Directive Discussion [facility] Start: 04-08-2024 Medicare Advantage Annual Wellness Visit Medicare [facility] Annual Wellness Visit [facility] Start: 03-11-2024 Hemoglobin A1c measurement HbA1C [facility] Start: 03-09-2024 End: 03-09-2024 Results Only 03/09/2024 1:00 PM EST Results Only [facility] [address] [place] [address] CBC/Iron studies ordered by [employer] 3 mo labs [facility] Comment on above: CBC/Iron studies ordered by [employer] [facility] 3 mo labs Start: 02-29-2024 Shingrix Vaccine (2 of 2) Shingrix Vaccine (2 of 2) [facility] Start: 02-04-2024 End: 02-04-2024 Results Only 02/04/2024 1:00 PM EDT Results Only [facility] [address] [place] [address] CBC/Iron studies ordered by [employer] 3 mo labs [facility] Comment on above: CBC/Iron studies ordered by [employer] [facility] 3 mo labs Start: 02-03-2024 End: 02-03-2024 Patient encounter procedure 02/03/2024 1:00 PM EDT Office Visit Family Medicine [place] [address] [place] [address] Ailyn Carson PA-C [address] [place] [address] Medicare Well Exam [facility] [place] Comment on above: Medicare Well Exam Start: 01-22-2024 End: 01-22-2024 Patient encounter procedure 01/22/2024 2:30 PM EDT Office Visit Psychiatry [address] [place] [address] Cary Loredo, PHOTOGRAPHER'S MODEL.RADIOLOGY CLERK [address] [place] [id number] 1 yr F/U + Med Refill Psychiatry Comment on above: 1 yr F/U + Med Refill Start: 01-21-2024 End: 01-16-2025 Alanine aminotransferase [Enzymatic activity/volume] in Serum or Plasma [facility] Comment on above: Expected: 01/21/2024 (Approximate), Expi res: 01/16/2025 Start: 01-21-2024 End: 01-16-2025 Albumin [Mass/volume] in Serum or Plasma [facility] Comment on above: Expected: 01/21/2024 (Approximate), Expi res: 01/16/2025 Start: 01-21-2024 End: 01-16-2025 Aspartate aminotransferase [Enzymatic activity/volume] in Serum or Plasma [facility] Work Phone: Comment on above: Expected: 01/21/2024 (Approximate), Expi res: 01/16/2025 Start: 01-21-2024 End: 01-16-2025 C reactive protein [Mass/volume] in Serum or Plasma [facility] Comment on above: Expected: 01/21/2024 (Approximate), Expi res: 01/16/2025 Start: 01-21-2024 End: 01-16-2025 Complement C3 [Mass/volume] in Serum or Plasma [facility] Comment on above: Expected: 01/21/2024 (Approximate), Expi res: 01/16/2025 Start: 01-21-2024 End: 01-16-2025 Complement C4 [Mass/volume] in Serum or Plasma [facility] Comment on above: Expected: 01/21/2024 (Approximate), Expi res: 01/16/2025 Start: 01-21-2024 End: 01-16-2025 CREATININE [facility] Comment on above: Expected: 01/21/2024 (Approximate), Expi res: 01/16/2025 Start: 01-21-2024 End: 01-16-2025 DNA ANTIBODY DS [facility] Comment on above: Expected: 01/21/2024 (Approximate), Expi res: 01/16/2025 Start: 01-21-2024 End: 01-16-2025 Erythrocyte sedimentation rate [facility] Comment on above: Expected: 01/21/2024 (Approximate), Expi res: 01/16/2025 Start: 01-21-2024 End: 01-16-2025 Protein/Creatinine [Mass Ratio] in Urine [facility] Comment on above: Expected: 01/21/2024 (Approximate), Expi res: 01/16/2025 Start: 01-21-2024 End: 01-16-2025 URINALYSIS, DIPSTICK ONLY [facility] Comment on above: Expected: 01/21/2024 (Approximate), Expi res: 01/16/2025 Start: 12-13-2023 End: 03-13-2024 CBC W Auto Differential panel - Blood COMPLETE BLOOD COUNT AND DIFFERENTIAL Lab Routine Iron deficiency anemia, unspecified iron deficiency anemia type Expected: 12/13/2023, Expires: 03/13/2024 [facility] Work Phone: Comment on above: Expected: 12/13/2023, Expires: 4 Start: 12-13-2023 End: 03-13-2024 Ferritin [Mass/volume] in Serum or Plasma FERRITIN Lab Routine Iron deficiency anemia, unspecified iron deficiency anemia type Expected: 12/13/2023, Expires: 03/13/2024 [facility] Comment on above: Expected: 12/13/2023, Expires: 4 Start: 12-13-2023 End: 03-13-2024 Iron and Iron binding capacity panel - Serum or Plasma IRON AND TIBC Lab Routine Iron deficiency anemia, unspecified iron deficiency anemia type Expected: 12/13/2023, Expires: 03/13/2024 [facility] Comment on above: Expected: 12/13/2023, Expires: 4 Start: 12-12-2023 Complete blood count Hemoglobin/Hematocrit [facility] Start: 12-12-2023 HEMOGLOBIN/HEMATOCRIT HEMOGLOBIN/HEMATOCRIT [facility] Start: 12-08-2023 Covid-19 Vaccine () Covid-19 Vaccine () [facility] Start: 12-08-2023 Covid-19 Vaccine () Covid-19 Vaccine () [facility] Start: 12-08-2023 Influenza vaccination [facility] Start: 12-04-2023 End: 12-04-2023 [facility] Comment on above: CBC/iron studies* 6 MO OV/LAB * Start: 10-31-2023 End: 01-30-2024 Hemoglobin A1c in Blood HEMOGLOBIN A1C Lab Routine Type 2 diabetes mellitus with stage 3b chronic kidney disease, without long-term current use of insulin (HCC) Type 2 diabetes mellitus with diabetic neuropathy, without long-term current use of insulin (HCC) Expected: 10/31/2023, Expires: 01/30/2024 [facility] Comment on above: Expected: 10/31/2023, Expires: Start: 10-23-2023 HEMOGLOBIN/HEMATOCRIT HEMOGLOBIN/HEMATOCRIT [facility] Start: 10-13-2023 End: 01-12-2024 Hemoglobin A1c in Blood HGB A1C Lab Routine Type 2 diabetes mellitus with diabetic neuropathy, without long-term current use of insulin (HCC) Type 2 diabetes mellitus with stage 3a chronic kidney disease, without long-term current use of insulin (HCC) Expected: 10/13/2023, Expires: 01/12/2024 [facility] Work Phone: Comment on above: Expected: 10/13/2023, Expires: Start: 09-11-2023 End: 09-11-2023 ambulatory 09/11/2023 1:00 PM EDT Results Only [place] G[facility]wn [facility] [address] [place] [address] CBC[facility]iron studies* [facility] Comment on above: CBC/iron studies* Start: 09-01-2023 3 comp foot exam completed DIABETIC FOOT EXAM [facility] Start: 09-01-2023 ANNUAL PCP TEAM CHRONIC DISEASE VISIT ANNUAL PCP TEAM CHRONIC DISEASE VISIT [facility] Start: 09-01-2023 Diabetic foot examination Diabetic Foot Exam [facility] Start: 08-30-2023 Creatinine measurement Serum Creatinine [facility] Start: 08-30-2023 Hepatitis B surface antibody level LDL CHOLESTEROL [facility] Start: 08-30-2023 SERUM CREATININE SERUM CREATININE [facility] Start: 08-16-2023 HEMOGLOBIN/HEMATOCRIT HEMOGLOBIN/HEMATOCRIT [facility] Start: 08-16-2023 SERUM CREATININE SERUM CREATININE [facility] Start: 08-05-2023 End: 08-05-2023 Patient encounter procedure 08/05/2023 1:40 PM EDT Appointment Radiology [address] [place] [id number] Asymptomatic menopausal state [Z78.0] Radiology Comment on above: Asymptomatic menopausal state [Z78.0] Start: 08-01-2023 End: 10-31-2023 25-hydroxyvitamin D3 [Mass/volume] in Serum or Plasma VITAMIN D 25 HYDROXY Lab Routine Fatigue, unspecified type Vitamin D deficiency Expected: 08/01/2023, Expires: 10/31/2023 [facility] Comment on above: Expected: 08/01/2023, Expires: Start: 08-01-2023 End: 10-31-2023 CBC W Auto Differential panel - Blood COMPLETE BLOOD COUNT AND DIFFERENTIAL Lab Routine Type 2 diabetes mellitus with stage 3b chronic kidney disease, without long-term current use of insulin (HCC) Type 2 diabetes mellitus with diabetic neuropathy, without long-term current use of insulin (HCC) Panic disorder with agoraphobia Fatigue, unspecified type Severe recurrent major depression without psychotic features (HCC) Esophagitis Expected: 08/01/2023, Expires: 10/31/2023 [facility] Comment on above: Expected: 08/01/2023, Expires: Start: 08-01-2023 End: 10-31-2023 Comprehensive metabolic 2000 panel - Serum or Plasma COMPREHENSIVE METABOLIC PANEL Lab Routine Type 2 diabetes mellitus with stage 3b chronic kidney disease, without long-term current use of insulin (HCC) Mixed hyperlipidemia Type 2 diabetes mellitus with diabetic neuropathy, without long-term current use of insulin (HCC) Stage 3 chronic renal impairment associated with type 2 diabetes mellitus (HCC) Chronic renal failure, stage 3b (HCC) Panic disorder with agoraphobia Fatigue, unspecified type Severe recurrent major depression without psychotic features (HCC) Esophagitis Current use of proton pump inhibitor Expected: 08/01/2023, Expires: 10/31/2023 [facility] Comment on above: Expected: 08/01/2023, Expires: 4 Start: 08-01-2023 End: 10-31-2023 Ferritin [Mass/volume] in Serum or Plasma FERRITIN Lab Routine Malabsorption of iron Expected: 08/01/2023, Expires: 10/31/2023 [facility] Comment on above: Expected: 08/01/2023, Expires: Start: 08-01-2023 End: 10-31-2023 Iron and Iron binding capacity panel - Serum or Plasma IRON AND TIBC Lab Routine Malabsorption of iron Expected: 08/01/2023, Expires: 10/31/2023 [facility] Comment on above: Expected: 08/01/2023, Expires: Start: 08-01-2023 End: 10-31-2023 Lipid 1996 panel - Serum or Plasma LIPID PANEL BASIC Lab Routine Type 2 diabetes mellitus with stage 3b chronic kidney disease, without long-term current use of insulin ([facility]) Mixed hyperlipidemia Type 2 diabetes mellitus with diabetic neuropathy, without long-term current use of insulin ([facility]) Fatigue, unspecified type Expected: 08/01/2023, Expires: 10/31/2023 [facility] Comment on above: Expected: 08/01/2023, Expires: Start: 08-01-2023 End: 10-31-2023 Magnesium [Mass/volume] in Serum or Plasma MAGNESIUM Lab Routine Current use of proton pump inhibitor Expected: 08/01/2023, Expires: 10/31/2023 [facility] Comment on above: Expected: 08/01/2023, Expires: Start: 08-01-2023 End: 10-31-2023 Microalbumin/Creatinine [Mass Ratio] in Urine ALBUMIN/CREATININE RATIO, URINE Lab Routine Type 2 diabetes mellitus with stage 3b chronic kidney disease, without long-term current use of insulin ([facility]) Expected: 08/01/2023, Expires: 10/31/2023 [facility] Work Phone: Comment on above: Expected: 08/01/2023, Expires: Start: 08-01-2023 End: 08-01-2023 Patient encounter procedure 08/01/2023 10:40 AM EDT Office Visit Family [facility] [place] [address] [place] [address] Ailyn Carson PA-C [address] [place] [address] med check [facility] Comment on above: med check Start: 07-14-2023 End: 10-13-2023 CBC W Auto Differential panel - Blood CBC + DIFF Lab Routine Other iron deficiency anemia CKD (chronic kidney disease) stage 4, GFR 15-29 ml/min (HCC) Type 2 diabetes mellitus with diabetic neuropathy, without long-term current use of insulin (HCC) Type 2 diabetes mellitus with stage 3a chronic kidney disease, without long-term current use of insulin ([facility]) Expected: 07/14/2023, Expires: 10/13/2023 [facility] Work Phone: Comment on above: Expected: 07/14/2023, Expires: Start: 07-14-2023 End: 10-13-2023 Comprehensive metabolic 2000 panel - Serum or Plasma COMP METABOLIC PANEL Lab Routine Mixed hyperlipidemia CKD (chronic kidney disease) stage 4, GFR 15-29 ml/min (HCC) Type 2 diabetes mellitus with diabetic neuropathy, without long-term current use of insulin (HCC) Type 2 diabetes mellitus with stage 3a chronic kidney disease, without long-term current use of insulin ([facility]) Expected: 07/14/2023, Expires: 10/13/2023 [facility] Work Phone: Comment on above: Expected: 07/14/2023, Expires: Start: 07-14-2023 End: 10-13-2023 Lipid 1996 panel - Serum or Plasma LIPID PANEL BASIC Lab Routine Mixed hyperlipidemia Type 2 diabetes mellitus with diabetic neuropathy, without long-term current use of insulin (HCC) Type 2 diabetes mellitus with stage 3a chronic kidney disease, without long-term current use of insulin ([facility]) Expected: 07/14/2023, Expires: 10/13/2023 [facility] Work Phone: Comment on above: Expected: 07/14/2023, Expires: Start: 07-14-2023 End: 10-13-2023 Magnesium [Mass/volume] in Serum or Plasma MAGNESIUM BLD Lab Routine Current use of proton pump inhibitor Expected: 07/14/2023, Expires: 10/13/2023 [facility] Work Phone: Comment on above: Expected: 07/14/2023, Expires: Start: 06-08-2023 Screening for malignant neoplasm of cervix Cervical Cancer Screening [facility] Start: 05-21-2023 ANNUAL PCP TEAM CHRONIC DISEASE VISIT ANNUAL PCP TEAM CHRONIC DISEASE VISIT [facility] Start: 05-18-2023 HEMOGLOBIN/HEMATOCRIT HEMOGLOBIN/HEMATOCRIT [facility] Start: 04-17-2023 [facility] Start: 04-08-2023 Advance Directive Discussion Advance Directive Discussion [facility] Start: 03-01-2023 Hemoglobin A1c measurement HbA1C [facility] Start: 03-01-2023 Hemoglobin A1c/Hemoglobin.total in Blood HBA1C [facility] Start: 02-21-2023 HEMOGLOBIN/HEMATOCRIT HEMOGLOBIN/HEMATOCRIT [facility] Start: 01-01-2023 ANNUAL PCP TEAM CHRONIC DISEASE VISIT ANNUAL PCP TEAM CHRONIC DISEASE VISIT [facility] Start: 01-01-2023 PNEUMOCOCCAL: 65+ (2 - PCV) PNEUMOCOCCAL: 65+ (2 - PCV) [facility] Comment on above: Postponed from 07/20/2008 (Declined at t his time) Start: 01-01-2023 Urine microalbumin profile DTAP,TDAP,TD (2 - Td or Tdap) [facility] Comment on above: Postponed from 09/23/2021 (Insurance Cov erage) Start: 12-07-2022 Covid-19 Vaccine ( season) Covid-19 Vaccine () [facility] Start: 12-07-2022 Influenza vaccination [facility] Start: 11-10-2022 Glaucoma screening Dilated Retinal Exam [facility] Start: 11-10-2022 Hepatitis C antibody, confirmatory test DILATED RETINAL EXAM [facility] Start: 10-12-2022 SERUM CREATININE SERUM CREATININE [facility] Start: 10-03-2022 Hepatitis B screening URINE ALBUMIN:CREATININE RATIO [facility] Start: 09-29-2022 ANNUAL PCP TEAM CHRONIC DISEASE VISIT ANNUAL PCP TEAM CHRONIC DISEASE VISIT [facility] Start: 09-22-2022 ANNUAL PCP TEAM CHRONIC DISEASE VISIT ANNUAL PCP TEAM CHRONIC DISEASE VISIT [facility] Start: 08-20-2022 End: 10-20-2022 Protein/Creatinine [Mass Ratio] in Urine PROTEIN CREATININE RATIO Lab Routine Systemic lupus erythematosus, unspecified SLE type, unspecified organ involvement status (HCC) Expected: 08/20/2022 (Approximate), Expires: 10/20/2022 [facility] Work Phone: Comment on above: Expected: 08/20/2022 (Approximate), Expi res: 10/20/2022 Start: 08-20-2022 End: 10-20-2022 URINALYSIS, DIPSTICK ONLY URINALYSIS, DIPSTICK ONLY Lab Routine Systemic lupus erythematosus, unspecified SLE type, unspecified organ involvement status (HCC) Expected: 08/20/2022 (Approximate), Expires: 10/20/2022 [facility] Work Phone: Comment on above: Expected: 08/20/2022 (Approximate), Expi res: 10/20/2022 Start: 08-17-2022 3 comp foot exam completed DIABETIC FOOT EXAM [facility] Start: 08-17-2022 ANNUAL PCP TEAM CHRONIC DISEASE VISIT ANNUAL PCP TEAM CHRONIC DISEASE VISIT [facility] Start: 08-17-2022 SHINGRIX VACCINE (1 of 2) SHINGRIX VACCINE (1 of 2) [facility] Comment on above: Postponed from 01/30/2006 (Insurance Cov erage) Postponed from 01/30 (Insurance Coverage) Start: 08-15-2022 HEMOGLOBIN/HEMATOCRIT HEMOGLOBIN/HEMATOCRIT [facility] Start: 05-24-2022 End: 05-23-2023 Alanine aminotransferase [Enzymatic activity/volume] in Serum or Plasma ALT/SGPT Lab Routine Systemic lupus erythematosus, unspecified SLE type, unspecified organ involvement status (HCC) Encounter for long-term (current) use of medications Expected: 05/24/2022 (Approximate), Expires: 05/23/2023 [facility] Work Phone: Comment on above: Expected: 05/24/2022 (Approximate), Expi res: 05/23/2023 Start: 05-24-2022 End: 05-23-2023 Albumin [Mass/volume] in Serum or Plasma ALBUMIN BLD Lab Routine Systemic lupus erythematosus, unspecified SLE type, unspecified organ involvement status (HCC) Encounter for long-term (current) use of medications Expected: 05/24/2022 (Approximate), Expires: 05/23/2023 [facility] Work Phone: Comment on above: Expected: 05/24/2022 (Approximate), Expi res: 05/23/2023 Start: 05-24-2022 End: 05-23-2023 Aspartate aminotransferase [Enzymatic activity/volume] in Serum or Plasma AST/SGOT BLD Lab Routine Systemic lupus erythematosus, unspecified SLE type, unspecified organ involvement status (HCC) Encounter for long-term (current) use of medications Expected: 05/24/2022 (Approximate), Expires: 05/23/2023 [facility] Work Phone: Comment on above: Expected: 05/24/2022 (Approximate), Expi res: 05/23/2023 Start: 05-24-2022 End: 05-23-2023 C reactive protein [Mass/volume] in Serum or Plasma C-REACTIVE PROTEIN (CRP) Lab Routine Systemic lupus erythematosus, unspecified SLE type, unspecified organ involvement status (HCC) Encounter for long-term (current) use of medications Expected: 05/24/2022 (Approximate), Expires: 05/23/2023 [facility] Work Phone: Comment on above: Expected: 05/24/2022 (Approximate), Expi res: 05/23/2023 Start: 05-24-2022 End: 05-23-2023 Complement C3 [Mass/volume] in Serum or Plasma C3 COMPLEMENT BLD Lab Routine Systemic lupus erythematosus, unspecified SLE type, unspecified organ involvement status (HCC) Encounter for long-term (current) use of medications Expected: 05/24/2022 (Approximate), Expires: 05/23/2023 [facility] Work Phone: Comment on above: Expected: 05/24/2022 (Approximate), Expi res: 05/23/2023 Start: 05-24-2022 End: 05-23-2023 Complement C4 [Mass/volume] in Serum or Plasma C4 COMPLEMENT BLD Lab Routine Systemic lupus erythematosus, unspecified SLE type, unspecified organ involvement status (HCC) Encounter for long-term (current) use of medications Expected: 05/24/2022 (Approximate), Expires: 05/23/2023 [facility] Work Phone: Comment on above: Expected: 05/24/2022 (Approximate), Expi res: 05/23/2023 Start: 05-24-2022 End: 05-23-2023 CREATININE BLD CREATININE BLD Lab Routine Systemic lupus erythematosus, unspecified SLE type, unspecified organ involvement status (HCC) Encounter for long-term (current) use of medications Expected: 05/24/2022 (Approximate), Expires: 05/23/2023 [facility] Work Phone: Comment on above: Expected: 05/24/2022 (Approximate), Expi res: 05/23/2023 Start: 05-24-2022 End: 05-23-2023 DNA ANTIBODY DS BLD DNA ANTIBODY DS BLD Lab Routine Systemic lupus erythematosus, unspecified SLE type, unspecified organ involvement status (HCC) Encounter for long-term (current) use of medications Expected: 05/24/2022 (Approximate), Expires: 05/23/2023 [facility] Work Phone: Comment on above: Expected: 05/24/2022 (Approximate), Expi res: 05/23/2023 Start: 05-24-2022 End: 05-23-2023 Erythrocyte sedimentation rate SED RATE WESTERGREN Lab Routine Systemic lupus erythematosus, unspecified SLE type, unspecified organ involvement status (HCC) Encounter for long-term (current) use of medications Expected: 05/24/2022 (Approximate), Expires: 05/23/2023 [facility] Work Phone: Comment on above: Expected: 05/24/2022 (Approximate), Expi res: 05/23/2023 Start: 05-24-2022 End: 05-23-2023 Protein/Creatinine [Mass Ratio] in Urine PROTEIN CREATININE RATIO Lab Routine Systemic lupus erythematosus, unspecified SLE type, unspecified organ involvement status (HCC) Encounter for long-term (current) use of medications Expected: 05/24/2022 (Approximate), Expires: 05/23/2023 [facility] Work Phone: Comment on above: Expected: 05/24/2022 (Approximate), Expi res: 05/23/2023 Start: 05-24-2022 End: 05-23-2023 URINALYSIS, DIPSTICK ONLY URINALYSIS, DIPSTICK ONLY Lab Routine Systemic lupus erythematosus, unspecified SLE type, unspecified organ involvement status (HCC) Encounter for long-term (current) use of medications Expected: 05/24/2022 (Approximate), Expires: 05/23/2023 [facility] Work Phone: Comment on above: Expected: 05/24/2022 (Approximate), Expi res: 05/23/2023 Start: 05-21-2022 End: 08-18-2022 Basic metabolic 2000 panel - Serum or Plasma BASIC METABOLIC PNL Lab Routine Type 2 diabetes mellitus with diabetic neuropathy, without long-term current use of insulin (HCC) Expected: 05/21/2022, Expires: 08/18/2022 [facility] Work Phone: Comment on above: Expected: 05/21/2022, Expires: 3 Start: 05-21-2022 End: 10-20-2022 Comprehensive metabolic 2000 panel - Serum or Plasma COMP METABOLIC PANEL Lab Routine Change in bowel function Type 2 diabetes mellitus with diabetic neuropathy, without long-term current use of insulin (HCC) Mixed hyperlipidemia Weight loss Expected: 05/21/2022, Expires: 10/20/2022 [facility] Work Phone: Comment on above: Expected: 05/21/2022, Expires: 3 Start: 05-21-2022 End: 10-18-2022 Hemoglobin A1c in Blood HGB A1C Lab Routine Screening for cervical cancer Type 2 diabetes mellitus with diabetic neuropathy, without long-term current use of insulin (HCC) Expected: 05/21/2022, Expires: 10/18/2022 [facility] Work Phone: Comment on above: Expected: 05/21/2022, Expires: 3 Start: 05-21-2022 End: 10-18-2022 Lipid 1996 panel - Serum or Plasma LIPID PANEL BASIC Lab Routine Type 2 diabetes mellitus with diabetic neuropathy, without long-term current use of insulin (HCC) Mixed hyperlipidemia Expected: 05/21/2022, Expires: 10/18/2022 [facility] Work Phone: Comment on above: Expected: 05/21/2022, Expires: 3 Start: 05-15-2022 HEMOGLOBIN/HEMATOCRIT HEMOGLOBIN/HEMATOCRIT [facility] Start: 05-03-2022 COVID-19 VACCINE (4 - Moderna series) COVID-19 VACCINE (4 - Moderna series) [facility] Start: 05-03-2022 SERUM CREATININE SERUM CREATININE [facility] Start: 04-08-2022 ADVANCE DIRECTIVE DISCUSSION ADVANCE DIRECTIVE DISCUSSION [facility] Start: 04-04-2022 Hemoglobin A1c/Hemoglobin.total in Blood HBA1C [facility] Start: 02-26-2022 COVID-19 VACCINE (4 - Booster) COVID-19 VACCINE (4 - Booster) [facility] Start: 02-17-2022 End: 04-19-2022 ALBUMIN/CREAT RATIO RND UR ALBUMIN/CREAT RATIO RND UR Lab Routine Type 2 diabetes mellitus with diabetic neuropathy, with long-term current use of insulin (HCC) Expected: 02/17/2022, Expires: 04/19/2022 [facility] Work Phone: Comment on above: Expected: 02/17/2022, Expires: 3 Start: 02-17-2022 End: 04-19-2022 CBC panel - Blood by Automated count CBC Lab Routine Fatigue, unspecified type Expected: 02/17/2022, Expires: 04/19/2022 [facility] Work Phone: Comment on above: Expected: 02/17/2022, Expires: 3 Start: 02-17-2022 End: 04-19-2022 Comprehensive metabolic 2000 panel - Serum or Plasma COMP METABOLIC PANEL Lab Routine Type 2 diabetes mellitus with diabetic neuropathy, with long-term current use of insulin (HCC) Mixed hyperlipidemia Renal insufficiency Expected: 02/17/2022, Expires: 04/19/2022 [facility] Work Phone: Comment on above: Expected: 02/17/2022, Expires: 3 Start: 02-17-2022 End: 04-19-2022 Hemoglobin A1c/Hemoglobin.total in Blood HGB A1C Lab Routine Type 2 diabetes mellitus with diabetic neuropathy, with long-term current use of insulin (HCC) Expected: 02/17/2022, Expires: 04/19/2022 [facility] Work Phone: Comment on above: Expected: 02/17/2022, Expires: 3 Start: 02-17-2022 End: 04-19-2022 LIPID PANEL BASIC LIPID PANEL BASIC Lab Routine Mixed hyperlipidemia Expected: 02/17/2022, Expires: 04/19/2022 [facility] Work Phone: Comment on above: Expected: 02/17/2022, Expires: 3 Start: 02-15-2022 Hemoglobin A1c/Hemoglobin.total in Blood HBA1C [facility] Start: 02-08-2022 ANNUAL PCP TEAM CHRONIC DISEASE VISIT ANNUAL PCP TEAM CHRONIC DISEASE VISIT [facility] Start: 12-07-2021 Influenza vaccination [facility] Start: 10-04-2021 End: 12-04-2021 Basic metabolic 2000 panel - Serum or Plasma BASIC METABOLIC PNL Lab Routine Chronic renal insufficiency, stage 3 (moderate) (HCC) Expected: 10/04/2021, Expires: 12/04/2021 [facility] Work Phone: Comment on above: Expected: 10/04/2021, Expires: 2 Start: 09-29-2021 End: 11-29-2021 Magnesium [Mass/volume] in Serum or Plasma MAGNESIUM BLD Lab Routine Current use of proton pump inhibitor Expected: 09/29/2021, Expires: 11/29/2021 [facility] Work Phone: Comment on above: Expected: 09/29/2021, Expires: 2 Start: 09-23-2021 Urine microalbumin profile [facility] Start: 09-16-2021 Hepatitis C antibody, confirmatory test DILATED RETINAL EXAM [facility] Start: 08-17-2021 End: 10-17-2021 ALBUMIN/CREAT RATIO RND UR ALBUMIN/CREAT RATIO RND UR Lab Routine Type 2 diabetes mellitus with diabetic neuropathy, with long-term current use of insulin (HCC) Expected: 08/17/2021, Expires: 10/17/2021 [facility] Work Phone: Comment on above: Expected: 08/17/2021, Expires: 2 Start: 08-14-2021 End: 10-14-2021 Hemoglobin A1c/Hemoglobin.total in Blood HGB A1C Lab Routine Type 2 diabetes mellitus with diabetic neuropathy, with long-term current use of insulin ([facility]) Expected: 08/14/2021, Expires: 10/14/2021 [facility] Work Phone: Comment on above: Expected: 08/14/2021, Expires: 2 Start: 08-07-2021 Hemoglobin A1c/Hemoglobin.total in Blood HBA1C [facility] Start: 08-01-2021 End: 10-01-2021 Hemoglobin A1c/Hemoglobin.total in Blood HGB A1C Lab Routine Type 2 diabetes mellitus with diabetic neuropathy, with long-term current use of insulin ([facility]) Expected: 08/01/2021, Expires: 10/01/2021 [facility] Work Phone: Comment on above: Expected: 08/01/2021, Expires: 2 Start: 08-01-2021 End: 10-01-2021 LIPID PANEL BASIC LIPID PANEL BASIC Lab Routine Mixed hyperlipidemia Expected: 08/01/2021, Expires: 10/01/2021 [facility] Work Phone: Comment on above: Expected: 08/01/2021, Expires: 2 Start: 08-01-2021 End: 10-01-2021 SCHEDULE LAB TESTING SCHEDULE LAB TESTING Lab Routine Expected: 08/01/2021, Expires: 10/01/2021 [facility] Work Phone: Comment on above: Expected: 08/01/2021, Expires: 2 Start: 06-30-2021 Hepatitis B screening URINE ALBUMIN:CREATININE RATIO [facility] Start: 04-14-2021 Hepatitis B surface antibody level LDL CHOLESTEROL [facility] Start: 04-08-2021 ADVANCE DIRECTIVE DISCUSSION ADVANCE DIRECTIVE DISCUSSION [facility] Start: 02-08-2021 COVID-19 VACCINE (3 - Moderna risk 4-dose series) COVID-19 VACCINE (3 - Moderna risk 4-dose series) [facility] Start: 02-08-2021 COVID-19 VACCINE (3 - Moderna risk series) COVID-19 VACCINE (3 - Moderna risk series) [facility] Start: 01-30-2021 BONE DENSITY BONE DENSITY [facility] Start: 01-30-2021 Bone Density Screening Bone Density Screening [facility] Start: 01-30-2021 PNEUMOVAX AGE 65 AND OVER WITH 5YR LOOKBACK (#1) PNEUMOVAX AGE 65 AND OVER WITH 5YR LOOKBACK (#1) [facility] Start: 01-30-2021 Screening for osteoporosis Bone Density Screening [facility] Start: 06-05-2019 3 comp foot exam completed DIABETIC FOOT EXAM [facility] Start: 06-12-2018 Mammography [facility] Start: 06-12-2018 Screening for malignant neoplasm of breast Mammogram Screening [facility] Start: 2016 Hepatitis B Vaccine (1 of 3 - Risk 3-dose series) Hepatitis B Vaccine (1 of 3 - Risk 3-dose series) [facility] Start: 2016 RSV Vaccine (1 - 1-dose 60+ series) RSV Vaccine (1 - 1-dose 60+ series) [facility] Start: 2016 RSV Vaccine (1 - Risk 60-74 years 1-dose series) RSV Vaccine (1 - Risk 60-74 years 1-dose series) [facility] Start: 07-20-2008 Pneumococcal Vaccine: 65+ (2 - PCV) Pneumococcal Vaccine: 65+ (2 - PCV) [facility] Start: 07-20-2008 Pneumococcal Vaccine: 65+ (2 of 2 - PCV) Pneumococcal Vaccine: 65+ (2 of 2 - PCV) [facility] Start: 07-20-2008 PNEUMOCOCCAL: 65+ (2 - PCV) PNEUMOCOCCAL: 65+ (2 - PCV) [facility] Start: 01-30-2006 SHINGRIX VACCINE (1 of 2) SHINGRIX VACCINE (1 of 2) [facility] Start: 01-30-2001 COLOGUARD (FIT-DNA) COLOGUARD (FIT-DNA) [facility] Start: 01-30-[address] COLONOGRAPHY [facility] Start: 01-30-2001 FECAL OCCULT BLOOD FECAL OCCULT BLOOD [facility] Start: 01-30-2001 Screening for malignant neoplasm of colon [facility] Start: 01-30-2001 SIGMOIDOSCOPY SIGMOIDOSCOPY [facility] Start: 01-30-1974 HIV SCREENING HIV SCREENING [facility] BACTERIAL VAGINOSIS AMPLIFICATION BACTERIAL VAGINOSIS AMPLIFICATION Lab Routine Vaginal irritation 06/07/2022 12:09 PM EST [facility] Work Phone: End: 08-30-2024 BD DXA TRABECULAR BONE SCORE (TBS) BD DXA TRABECULAR BONE SCORE (TBS) Radiology Routine Asymptomatic menopausal state 1 Occurrences starting 08/01/2023 until 08/30/2024 [facility] Comment on above: 1 Occurrences starting 08/01/2023 until 08/30/2024 DEMETRIS / TRICHOMONA S AMPLIFICATION DEMETRIS / TRICHOMONAS AMPLIFICATION Microbiology Routine Vaginal irritation 06/07/2022 12:09 PM EST [facility] Work Phone: DXA Skeletal system.axial Views for bone density DXA-AXIAL SKELETON Radiology Routine Asymptomatic menopausal state 08/23/2023 1:58 PM EDT [facility] Work Phone: End: 09-22-2022 ECG COMPLETE ECG COMPLETE ECG Routine Bradycardia 1 Occurrences starting 09/22/2021 until 09/22/2022 [facility] Work Phone: Comment on above: 1 Occurrences starting 09/22/2021 until 09/22/2022 End: 06-22-2023 CINDI SCREENING CINDI SCREENING Radiology Routine Encounter for screening mammogram for breast cancer 1 Occurrences starting 05/23/2022 until 06/22/2023 [facility] Work Phone: Comment on above: 1 Occurrences starting 05/23/2022 until 06/22/2023 End: 07-07-2023 CINDI SCREENING CINDI SCREENING Radiology Routine Encounter for screening mammogram for breast cancer 1 Occurrences starting 06/07/2022 until 07/07/2023 [facility] Work Phone: Comment on above: 1 Occurrences starting 06/07/2022 until 07/07/2023 End: 06-13-2024 MG Breast Screening CINDI SCREENING Radiology Routine Encounter for screening mammogram for breast cancer 1 Occurrences starting 05/15/2023 until 06/13/2024 [facility] Work Phone: Comment on above: 1 Occurrences starting 05/15/2023 until 06/13/2024 PAP FLUID CERVICAL SCREENING PAP FLUID CERVICAL SCREENING Lab Routine Pap smear for cervical cancer screening 06/07/2022 12:05 PM EST [facility] Work Phone: Patient Education [facility] Work Phone: Patient referral [facility] Work Phone: End: 12-20-2025 XR Lumbar spine 3 Views XR LUMBAR GENERAL 3V AP/LAT/L5-S1 Radiology Routine Low back pain, unspecified back pain laterality, unspecified chronicity, unspecified whether sciatica present 1 Occurrences starting 11/20/2024 until 12/20/2025 [facility] Comment on above: 1 Occurrences starting 11/20/2024 until 12/20/2025 XR Lumbar spine 3 Views XR LUMBA R GENERAL 3V AP/LAT/L5-S1 Radiology Routine Low back pain, unspecified back pain laterality, unspecified chronicity, unspecified whether sciatica present 11/20/2024 2:23 PM EDT [facility] Immunizations Immunization Date Immunization Notes Care Provider Inderjit huggins 08-01-2023 pneumococcal conjuga te (PCV20) vaccine, 20 valent (PREVNAR 20) NA Carson PA-C Work Phone: [facility] 08-01-2023 pneumococcal Conjuga te, unspecified formulation NA Carson PA-C Work Phone: [facility] 01-01-2022 COVID-19 booster vaccine, age 12+ yr, bivalent (PFIZER-BIONTECH) Saige Wallis PHOTOGRAPHER'S MODEL.RADIOLOGY CLERK Work Phone: [facility] 01-01-2022 influenza, high-dose , quadrivalent vaccine (FLUZONE HIGH DOSE QUADRIVALENT) Saige Wallis PHOTOGRAPHER'S MODEL.RADIOLOGY CLERK Work Phone: [facility] 01-01-2022 influenza virus vacc ine, unspecified formulation Cary Loredo PHOTOGRAPHER'S MODEL.RADIOLOGY CLERK Work Phone: [facility] 03-30-2019 influenza, injectabl e, quadrivalent, preservative free [facility] 03-30-2019 influenza, seasonal, injectable [facility] 03-30-2019 influenza, seasonal, injectable, preservative free NA Carson PA-C Work Phone: [facility] 12-24-2016 influenza, injectabl e, quadrivalent, contains preservative Jaki Verdugo MD Work Phone: [facility] Work Phone: 04-03-2016 influenza, injectabl e, quadrivalent, contains preservative Jaki Verdugo MD Work Phone: [facility] Work Phone: 03-09-2015 influenza, injectabl e, quadrivalent, contains preservative Jaki Verdugo MD Work Phone: [facility] 03-09-2015 influenza, seasonal, injectable NA Carson PA-C Work Phone: [facility] 01-25-2014 influenza, seasonal, injectable Jaki Verdugo MD Work Phone: [facility] 03-25-2013 Influenza virus vaccine [facility] 03-25-2013 influenza, seasonal, injectable, preservative free NA Carson PA-C Work Phone: [facility] 03-23-2013 influenza virus vacc ine, unspecified formulation Jaki Verdugo MD Work Phone: [facility] Work Phone: 09-24-2011 tetanus toxoid, redu alyx diphtheria toxoid, and acellular pertussis vaccine, adsorbed Jaki Verdugo MD Work Phone: [facility] 07-21-2007 pneumococcal polysaccharide vaccine, 23 valent Jaki Verdugo MD Work Phone: [facility] Work Phone: Payers Date Payer Category Payer Private Health Insurance [id number] 2024 Medicaid [employer] [id number] 2024 Medicare [id number] 2024 Medicaid [id number] 2024 Self-pay [id number] 2023 Medicare (Managed Care) 1.2. [id number] 2023 Unknown [id number] 2017 Medicare [id number] 2013 Medicare MEDICARE MEDICAR E A AND B [id number] 2013-Present [phone] [place] [address] Medicare [id number] 2013 Medicare [id number] 2013 Medicare [id number] 1956 Unknown [id number] 2.16.840.1.385797.3.579.2. 627 Medicare [id number] Unknown [id number] 2.16.840.1.335809.3.579.2. 462 Unknown [id number] 2.16.840.1.207874.3.579.2. 462 Unknown [id number] 2.16.840.1.048523.3.579.2. 462 Unknown [id number] 2.16.840.1.420936.3.579.2. 462 Unknown [id number] 2.16.840.1.151914.3.579.2. 462 Unknown [id number] 2.16.840.1.290340.3.579.2. 462 Unknown [id number] 2.16.840.1.895499.3.579.2. 462 Unknown [id number] 2.16.840.1.188469.3.579.2. 462 Unknown [id number] 2.16.840.1.091583.3.579.2. 462 Unknown [id number] 2.16.840.1.661619.3.579.2. 462 Unknown [id number] 2.16.840.1.968547.3.579.2. 462 Unknown [id number] 2.16.840.1.756625.3.579.2. 462 Unknown [id number] 2.16.840.1.690484.3.579.2. 462 Unknown [id number] 2.16.840.1.401341.3.579.2. 462 Unknown [id number] 2.16.840.1.836858.3.579.2. 462 Unknown [id number] 2.16.840.1.275480.3.579.2. 462 Unknown [id number] 2.16.840.1.288234.3.579.2. 462 Unknown [id number] 2.16.840.1.469972.3.579.2. 462 Unknown [id number] 2.16.840.1.546718.3.579.2. 462 Unknown [id number] 2.16.840.1.019426.3.579.2. 462 Unknown [id number] 2.16.840.1.959124.3.579.2. 462 Social History Date Type Detail Facility Start: 11-25-2019 End: 05-06-2024 Tobacco smoking status WYIS Ex-smoker [facility] Start: 10-05-1984 End: 04-05-1985 History of tobacco use Current smoker [facility] Start: 10-05-1984 End: 04-05-1985 History of tobacco use Cigarette Smoker [facility] Start: 05-18-2021 End: 06-30-2024 Alcohol intake Current non-drinker of alcohol (finding) [facility] Start: 01-02-2012 End: 01-01-2022 Tobacco Comment Smoked for 6 months total. [facility] Start: 1955 Sex Assigned At Not on file [facility] Start: 1955 Sex Assigned At Female [facility] Start: 07-14-2021 End: 08-11-2021 Exposure to SARS-CoV-2 (event) Unable to assess [facility] Work Phone: Start: 04-04-2020 End: 03-07-2022 Exposure to SARS-CoV-2 (event) Not sure [facility] Work Phone: Start: 09-15-2021 End: 04-17-2023 Tobacco smoking status WYIS Unknown if ever smoked [facility] Start: 06-01-2020 None [facility] Start: 08-03-2020 Homeless [facility] Start: 06-10-2020 Non-smoker [facility] Start: 11-25-2019 End: 08-20-2022 Cigarettes smoked current (pack per day) - Reported 1 [facility] Start: 11-25-2019 End: 11-12-2024 Tobacco use and exposure Smokeless tobacco non-user [facility] Start: 08-20-2022 End: 10-23-2022 Tobacco use panel [facility] Start: 03-09-2012 Adult Depression Screening Assessment 2 [facility] Start: 07-11-2021 Gender identity Identifies as female gender (finding) [facility] Start: 07-11-2021 Sexual orientation Heterosexual (finding) [facility] Has the [employer], or [employer] threatened to shut off services in your home in past 12Mo No [facility] Do you belong to any clubs or organizations such as restorationist groups, unions, fraternal or athletic groups, or school groups? Yes [facility] Are you now , , , , never or living with a partner? [facility] How often to you hav e a drink containing alcohol? Never [facility] How hard is it for y ou to pay for the very basics like food, housing, medical care, and heating Hard [facility] Do you feel stress - tense, restless, nervous, or anxious, or unable to sleep at night because your mind is troubled all the time - these days [OSQ] Only a little [facility] (I/We) worried wheth er (my/our) food would run out before (I/we) got money to buy more. Never true [facility] Start: 11-12-2024 End: 12-14-2024 Alcoholic beverage intake [facility] Procedure Code Equipment Code Equipment Origin al Text Equipment Identifier Dates [id number], [id number], [id number] Start: 04-27-2015 End: 06-19-2023 Comment on above: Test blood sugar(s) 3 times daily. Dx: Type 2 DM - Uncontrolled E11.65 Insulin: Yes Test blood sugar(s) 3 times daily. Dx: 250.02. Insulin: Yes Once a day for insul in usage. 1.25MM JOSE WIRES FDA Start: 06-14-2017 1.25MM JOSE WIRES FDA Start: 06-14-2017 1.8MM DRILL BIT FDA Start: 06-14-2017 2.4MM CORTEX SCR EW SELF TAP FDA Start: 06-14-2017 2.4MM CORTEX SCREWS SELF TAP FDA Start: 06-14-2017 L-PLATE 90 DEG FDA Start: 06-14-2017 1.25MM JOSE WIRES FDA Start: 06-14-2017 1.25MM JOSE WIRES FDA Start: 06-14-2017 1.8MM DRILL BIT FDA Start: 06-14-2017 2.4MM CORTEX SCR EW SELF TAP FDA Start: 06-14-2017 2.4MM CORTEX SCREWS SELF TAP FDA Start: 06-14-2017 L-PLATE 90 DEG FDA Start: 06-14-2017 1.25MM JOSE WIRES FDA Start: 06-14-2017 1.25MM JOSE WIRES FDA Start: 06-14-2017 1.8MM DRILL BIT FDA Start: 06-14-2017 2.4MM CORTEX SCR EW SELF TAP FDA Start: 06-14-2017 2.4MM CORTEX SCREWS SELF TAP FDA Start: 06-14-2017 L-PLATE 90 DEG FDA Start: 06-14-2017 1.25MM JOSE WIRES FDA Start: 06-14-2017 1.25MM JOSE WIRES FDA Start: 06-14-2017 1.8MM DRILL BIT FDA Start: 06-14-2017 2.4MM CORTEX SCR EW SELF TAP FDA Start: 06-14-2017 2.4MM CORTEX SCREWS SELF TAP FDA Start: 06-14-2017 L-PLATE 90 DEG FDA Start: 06-14-2017 spinal cord stimulator FDA Start: 02-05-2014 1.25MM JOSE WIRES FDA Start: 06-14-2017 1.25MM JOSE WIRES FDA Start: 06-14-2017 1.8MM DRILL BIT FDA Start: 06-14-2017 2.4MM CORTEX SCR EW SELF TAP FDA Start: 06-14-2017 2.4MM CORTEX SCREWS SELF TAP FDA Start: 06-14-2017 L-PLATE 90 DEG FDA Start: 06-14-2017 Goals Date Patient Goal Desired Activity /State Personal health goal Functional Status Date Assessment Result Facility 05-15-2024 Functional status Ambulates [facility] Work Phone: 10-20-2014 Are you deaf, or do you have serious difficulty hearing No 10/20/2014 10:59 AM EDT [facility] 10-20-2014 Are you blind, or do you have serious difficulty seeing, even when wearing glasses No 10/20/2014 10:59 AM EDT Eloy Kayleen [facility] 10-20-2014 Do you have serious difficulty walking or climbing stairs No 10/20/2014 10:59 AM EDT [facility] 10-20-2014 Do you have difficul ty dressing or bathing No 10/20/2014 10:59 AM T [facility] 10-20-2014 Because of a physica l, mental, or emotional condition, do you have difficulty doing errands alone such as visiting a physician's office or shopping No 10/20/2014 10:59 AM T [facility] Mental Status Date Assessment Result Facility 05-15-2024 Cognitive function Voice/Name [facility] Work Phone: 10-20-2014 Because of a physica l, mental, or emotional condition, do you have serious difficulty concentrating, remembering, or making decisions No 10/20/2014 10:59 AM [facility] Clinical Notes 04-08-2019 to 01-05-2025 Note Date & Type Note Facility 01-05-2025 Discharge summary Note Date/Time January 05, 2025 8:48am [facility] Physical Therapy [facility] [address] [place] [address] [address] [place] [address] / REHABILITATION SERVICES DISCHARGE SUMMARY MR#: [id number] Acct: [id number] Name: CORINNA CARR Rep #: [id number] : 1955 69 From: Hailey Davison Referring Dr.: Dr. Hiram Tafoya MD Status: REG RCR Insurance: [facility] Patient Information Patient Information: CORINNA CARR was seen in my office for initial evaluation on 09/01/24. The following Plan of Care was established for this patient: POC Established Initial Frequency: 2x /Week Initial Duration: 3 Months Anticipated Interventions Patient/Client Instruction: Educate patient on: Condition and Plan of Care For the Purpose of:: To decrease pain, To improve muscle performance and motor function, To improve ability to perform ADL's, To increase tolerance to activity/condition/position, To improve performance and independence with ADL's,To improve ability of physical actions for home/community/work/leisure, To improve gait and locomotor functions, To improve health of tissue, To increase flexibility/ROM, To improve endurance, To improve balance and To improve safety with gait Therapeutic Exercise to Include: Strength training, Endurance training, Balance training, Postural training, Flexibilty training, Gait and locomotor training, Neuromotor development, Active ROM and Dynamic Lumbar Stabilization For the Purpose of:: To improve muscle performance and motor function, To improve ability to perform ADL's, To increase tolerance to activity/condition/position, To improve performance and independence with ADL's,To decrease level of supervision to perform tasks, To improve ability of physical actions for home/community/work/leisure, To improve gait and locomotor functions, To improve health of tissue, To improve endurance, To improve balanceand To improve safety with gait Functional Training to Include: Gait training For the Purpose of:: To improve gait and locomotor functions and To improve safety with gait Last Seen Last Seen: This patient was last seen in our office 10/15/24. Pertinent comments regardingtheir Physical therapy will appear below: DC PT At this point I will be discontinuing this patient from physical therapy. I would be happy to see this patient again in the future if found appropriate by the physician. Thank you! JORGE L Sanchez Balance/Gait/Functional tests Balance/Special Test Scores Functional Gait Assessment Score: 4 % Disability: 86.6700 Lower Extremity Functional Score: 16 <Electronically signed by Hailey Real MPT> 01/05/25 0848 CC: MICKY Erazo; Dr. Hiram Tafoya MD ~ Signed [facility] Work Phone: 1(417) 895-918609-30-2025 Discharge summary [facility] Physical Therapy [address] [place] [address] / REHABILITATION SERVICES DISCHARGE SUMMARY MR#: [id number] Acct: [id number] Name: CORINNA CARR Rep #: [id number] : 1955 69 From: Hailey Davison Referring Dr.: Dr. Hirma Tafoya MD Status: REG R Insurance: [facility] Patient Information Patient Information: CORINNA CARR was seen in my office for initial evaluation on 09/01/24. The following Plan of Care was established for this patient: POC Established Initial Frequency: 2x /Week Initial Duration: 3 Months Anticipated Interventions Patient/Client Instruction: Educate patient on: Condition and Plan of Care For the Purpose of:: To decrease pain, To improve muscle performance and motor function, To improveability to perform ADL's, To increase tolerance to activity/condition/position, To improve performance and independence with ADL's,To improve ability of physical actions for home/community/work/leisure, To improve gait and locomotor functions, To improve health of tissue, To increase flexibility/ROM, To improve endurance, To improve balance and To improve safety with gait Therapeutic Exercise to Include: Strength training, Endurance training, Balance training, Postural training, Flexibilty training, Gait and locomotor training, Neuromotor development, Active ROM and Dynamic Lumbar Stabilization For the Purpose of:: To improve muscle performance and motor function, To improve ability to perform ADL's, To increase tolerance to activity/condition/position, To improve performance and independence with ADL's,To decrease level of supervision to perform tasks, To improve ability of physical actions for home/community/work/leisure, To improve gait and locomotor functions, To improve health of tissue, To improve endurance, To improve balanceand To improve safety with gait Functional Training to Include: Gait training For the Purpose of:: To improve gait and locomotor functions and To improve safety with gait Last Seen Last Seen: This patient was last seen in our office 10/15/24. Pertinent comments regardingtheir Physical therapy will appear below: SANDRA PT At this point I will be discontinuing this patient from physical therapy. I would be happy to see this patient again in the future if found appropriate by the physician. Thank you! Hailey Real, JORGE L Balance/Gait/Functional tests Balance/Special Test Scores Functional Gait Assessment Score: 4 % Disability: 86.6700 Lower Extremity Functional Score: 16 01/05/25 0848 CC: MICKY Erazo; Dr. Hiram Tafoya MD ~ Signed [facility]09-08-2025 Instructions* Patient Instructions* Monet Negron APRN.CNP - 12/14/2024 10:50 AM EDT Plan: 1) Continue with current medications per other providers 2) Continue with home exercises and stretches. 3) Recommend heat, moist is best, as tolerated as needed 4) recommend follow up with [facility] rep to check settings/adjust as needed 5) Consider chronic pain rehab program - consideration ketamine infusions Please watch for the following red flag symptoms: -weight loss, fevers -chills, night time awakening of pain - bowel bladder incontinence (difficulty holding your urine or stool) -saddle anesthesia (numbness and tingling in your groin area) - progressive numbness or weakness. If these symptoms should arise you should seek emergency treatment. Monet Negron APRN.CNP December 14, 2024 [facility] History of Present illness Narrative* Monet Negron APRN.CNP - 12/14/2024 10:45 AM EDT History and Physical Assessment Patient Name: Corinna Carr MR #: [id number] Age: [age] year old Date:December 14, 2024 Referred by: Dr. Tyler Dixon Chief Complaint: This patient is a 69 year old female who presents today with complaints of LBP . Patient Entered Questionnaires PROMIS Score Percentiles 08/30/2021 05/24/2022 07/25/2023 PROMIS Global Health Scale Physical Health Percentile 4 15 7 Mental Health Percentile 5 26* 05/24/2022 Physical Health Physical Function Percentile 4 Pain Interference Percentile 8 Percentiles provide an indication of how the patient's score ranks in relation to the general population. Higher percentile rankings indicate better function/quality of life. 50th percentile is the average of the general population and indicates half of respondents had a worse score. > 31st percentile is within normal limits or better * < 31st percentile is at least SD worse than population, which may be clinically relevant < 16th percentile is at least 1 SD worse than population and warrants attention This Episode: Date of Onset for this episode: years ago Pattern: Constant. Character: Sharp. Severity: VAS Pain: 5/10 Current; 10/10 Worst; 4/10 Best. Location: LBP Radiation: non-radiating. Exacerbating Factors: Movement and sitting for too long. Alleviating Factors: Nothing makes my pain better. Associated Signs/Symptoms: Sleep disturbance; awakens during night due to pain. Sensory/Motor Changes: None. Progressive Weakness?: Yes. AM Stiffness?: Yes. Duration: 10 -15 minutes. Changes in Bowel/Bladder Control?: No. Location of Joint Swelling: Not Applicable. Location of Joint Pain: Not Applicable. PAST MEDICAL HISTORY Diagnosis Date Aspiration pneumonia (HCC) 04/2019 [facility] DDD (degenerative disc disease) Depression Diabetes mellitus without mention of complication Fibromyalgia Hyperlipidemia Iron deficiency anemia, unspecified Dr Duong Iron malabsorption ([facility]) 10/23/2022 Lupus Obesity Vitamin D deficiency 2012 PAST SURGICAL HISTORY Procedure Laterality Date ARTHRP KNE CONDYLE&PLATU MEDIAL&LAT COMPARTMENTS Left 02/25/[address] CARDIAC CATH 2007 no stenosis minimal plaque [...] lumbar fusion S SPINAL CORD STIM/IMPLANTN 01/2014 SOCIAL HISTORY[1] FAMILY HISTORY Problem Relation Age of Onset [...] No Family History Schizophrenia No Family History [id number] Allergies: ALLERGIES No Known Allergies Current Outpatient Medications: tirzepatide (MOUNJARO SQ) Inject subcutaneously. sucralfate (CARAFATE) 1 gram tablet Take 1 g by mouth three times a day. hydrOXYzine HCl (ATARAX) 25 mg tablet 25 mg. alendronate (FOSAMAX) 70 mg tablet Take 70 mg by mouth one time a week. ondansetron (ZOFRAN) 4 mg tablet TAKE 1 TO 2 TABLETS BY MOUTH EVERY 8 HOURS NEEDED FOR NAUSEA FOR 5 DAYS ferrous sulfate (IRON, FERROUS SULFATE,) 325 mg (65 mg iron) tablet INFUSION hydrOXYchloroQUINE (PLAQUENIL) 200 mg tablet Take 1 tablet by mouth once daily. buPROPion XL (WELLBUTRIN XL) 150 mg 24 hr tablet Take 150 mg by mouth once daily. TAKE 1 TABLET BY MOUTH ONCE DAILY IN THE MORNING HYDROcodone-acetaminophen (NORCO) 5-325 mg per tablet Take 1 tablet by mouth every 8 hours as needed. ibuprofen (MOTRIN) 400 mg tablet Take 600 mg by mouth every 8 hours as needed for pain. omeprazole (PRILOSEC) 40 mg capsule Take 1 capsule by mouth once daily. cholecalciferol, Vitamin D3, (VITAMIN D3) 1,250 mcg (50,000 unit) cap capsule Take 1 capsule by mouth one time a week. pravastatin (PRAVACHOL) 20 mg tablet Take 1 tablet by mouth daily at bedtime. empagliflozin (JARDIANCE) 10 mg tablet Take 1 tablet by mouth once daily. Take 1 tablet once daily in the morning gabapentin (NEURONTIN) 300 mg capsule Take 1 capsule by mouth three times daily. midodrine (PROAMITINE) 5 mg tablet Take 10 mg by mouth three times a day with meals. (Patient not taking: Reported on 12/14/2024) blood sugar diagnostic (BLOOD GLUCOSE TEST) test strip Test blood sugar(s) 3 times daily. Dx: Type 2 DM - Uncontrolled E11.65 Insulin: Yes blood sugar diagnostic (FREESTYLE LITE STRIPS) test strip Test blood sugar(s) 3 times daily. Dx: 250.02. Insulin: Yes Is patient on blood thinners? No Patient feels safe at home: Yes Biochemist: Zamzam Dimas RN Imaging related to visit: 11/20/24 XR Lumbar RESULT: COUNTING: Lumbosacral junction. For the purposes of this report, L4-5 is considered the level of the iliac crest and assume there are 5 lumbar-type vertebrae. Anatomic variant: None. HARDWARE: Posterior spinal fusion and decompression with posterior pedicle screws and rods L3-S1 with interbody grafts. There is posterior decompression with laminectomies extending from at least L3 through the superior aspect of L5. No hardware fracture or perihardware lucency. There is a right-sided spinal stimulator with 2 leads which enter the posterior spinal canal at T10-T11 and ascending cranially ALIGNMENT: Appropriate lumbar lordosis present without spondylolisthesis. VERTEBRAE: Vertebral body heights are maintained. DISK SPACES: Severe disc space height loss at L2-L3 with marginal osteophytes anteriorly and posteriorly. SOFT TISSUES: Mild scattered calcific atherosclerosis of the abdominal aorta. OARRS: PDMP website checked and validated. All prescriptions have been APPROPRIATELY filled. No suspiciousactivity was identified. December 14, 2024 by Monet Negron APRN.RADIOLOGY CLERK Current Medications: Ibuprofen 400mg Liberty 5-325mg Q8hr as needed - not per CC pain mgt Gabapentin 300mg TID Physical Therapy: none recent GFR: 39 REVIEW OF SYSTEMS PAIN ASSESSMENT: low back pain GENERAL: No weight loss, malaise or fevers RESPIRATORY: Negative for cough, hemoptysis, wheezing, COPD, dyspnea or shortness of breath CARDIOVASCULAR: Negative for chest pain, leg swelling, hypertension, CHF or palpitations GI: No nausea, vomiting, or diarrhea MUSCULOSKELETAL: back pain NEURO: No history of headaches, syncope, paralysis, seizures or tremors PHYSICAL EXAMINATION: Ht 5' 5 (1.65m) Wt 200 lb (90.7kg) LMP 12/07/2007 BMI 33.28 kg/(m^2). General appearance: antalgic, rollator, well appearing, alert, and in no acute distress Skin: skin color, texture, turgor normal, no rashes or lesions HEENT: normocephalic, atraumatic, sclera non-icteric Lungs: Respirations even and non-labored. Cardiovascular:Regular rate and rhythm GI: Soft, non-tender, non-distended. Musculoskeletal: Neck: Supple; good ROM., Back: Tenderness on palpation over the lumbar spine. , Tenderness over thebilateral lumbar paraspinal muscles, Straight leg raising test: Right - Negative, Left - Negative, Pain reproduced with flexion of the lumbar spine., Pain reproduced with extension of the lumbar spine. , SI Joints: No tenderness over the bilateral SI Joints. , Joints: all Normal Neuro: alert and oriented x 3 HPI & ASSESSMENT: Corinna Carr is a 69 year old female who presents for chronic low back pain , s/p lumbar fusion L3-S1. Referred by Rheumatology provider. She reports low back pain, which she describes as sharp, which does not radiate to lower extremities. Denies numbness or tingling. She rates her pain at 5/10 currently, ranging 4-10/10. The pain is aggravated by movement, doing anything for too long, lying on back. The pain is mitigated by nothing.She is currently taking - see above. She denies any red flag symptoms including weight loss, fevers, chills, night time awakening of pain, bowel bladder incontinence, saddle anesthesia, progressive numbness or weakness. We discussed that if these symptoms should arise she should seek emergency treatment. Post-laminectomy 12 years ago. Hx Posterior spinal fusion and decompression with posterior pedicle screws and rods L3-S1 with interbody grafts. She is currently prescribed norco and gabapentin per PCP. She has SCS in place which she states she uses and is effective. She has osteoporosis - no hx of fractures spine. She reports hx of caudal RICARDO without relief. On exam 69yo female, alert and oriented fully. No acute distress. She walks with an antalgic gait with assist of rollator. She is unable to attempt walking on heels or tiptoes. Low back pain elicitedwith lumbar flexion and extension. Tenderness on palpation lumbar spine and diffusely across bilateral lumbar paraspinal muscles. SLR negative bilaterally. Strength 5/5 and sensation are equal and intact bilateral upper and lower extremities. Impression: (M96.1) Postlaminectomy syndrome (primary encounter diagnosis) (M54.50, G89.29) Chronic bilateral low back pain without sciatica Plan: 1) Continue with current medications per other providers 2) Continue with home exercises and stretches. 3) Recommend heat, moist is best, as tolerated as needed 4) recommend follow up with SCS rep to check settings/adjust as needed 5) Consider chronic pain rehab program - consideration ketamine infusions I spent a total of 32 minutes on the date of the service which included preparing to see the patient, [id number] patient care, completing clinical documentation, and performing a medically appropriate examination. Monet Negron APRN.CNP December 14, 2024 [1] Social History Tobacco Use Smoking status: Former Current packs/day: 0.00 Average packs/day: 1 pack/day for 0.5 years (0.5 ttl pk-yrs) Types: Cigarettes Start date: 10/05/1984 Quit date: 04/05/1985 Years since quittin.7 Smokeless tobacco: Never Tobacco comments: Smoked for 6 months total. Vaping Use Vaping status: Never Used Substance Use Topics Alcohol use: Not Currently Drug use: Not Currently Comment: H/O medical marijuana use [facility] NoteHNO ID: [id number] Author: MONET NEGRON APRN.CNP Service: ? Author Type: Nurse Practitioner Type: Progress Notes Filed: 12/14/2024 11:11 Note Text: History and Physical Assessment Patient Name: Corinna Carr MR #: [id number] Age: [age] year old Date:December 14, 2024 Referred by: Dr. Tyler Dixon Chief Complaint: This patient is a 69 year old female who presents today with complaints of LBP . Patient Entered Questionnaires PROMIS Score Percentiles 08/30/2021 05/24/2022 07/25/2023 PROMIS Global Health Scale Physical Health Percentile 4 15 7 Mental Health Percentile 5 26* 05/24/2022 Physical Health Physical Function Percentile 4 Pain Interference Percentile 8 Percentiles provide an indication of how the patient's score ranks in relation to the general population. Higher percentile rankings indicate better function/quality of life. 50th percentile is the average of the general population and indicates half of respondents had a worse score. > 31st percentile is within normal limits or better * < 31st percentile is at least ? SD worse than population, which may be clinically relevant < 16th percentile is at least 1 SD worse than population and warrants attention This Episode: Date of Onset for this episode: years ago Pattern: Constant. Character: Sharp. Severity: VAS Pain: 5/10 Current; 10/10 Worst; 4/10 Best. Location: LBP Radiation: non-radiating. Exacerbating Factors: Movement and sitting for too long. Alleviating Factors: Nothing makes my pain better. Associated Signs/Symptoms: Sleep disturbance; awakens during night due to pain. Sensory/Motor Changes: None. Progressive Weakness?: Yes. AM Stiffness?: Yes. Duration: 10 -15 minutes. Changes in Bowel/Bladder Control?: No. Location of Joint Swelling: Not Applicable. Location of Joint Pain: Not Applicable. PAST MEDICAL HISTORY Diagnosis Date Aspiration pneumonia (HCC) 04/2019 [facility] DDD (degenerative disc disease) Depression Diabetes mellitus without mention of complication Fibromyalgia Hyperlipidemia Iron deficiency anemia, unspecified Dr Duong Iron malabsorption (HCC) 10/23/2022 Lupus Obesity Vitamin D deficiency 2012 PAST SURGICAL HISTORY Procedure Laterality Date ARTHRP KNE CONDYLEANDPLATU MEDIALANDLAT COMPARTMENTS Left 02/25/[address] CARDIAC CATH 2007 no stenosis minimal plaque [...] lumbar fusion S SPINAL CORD STIM/IMPLANTN 01/2014 SOCIAL HISTORY[1] FAMILY HISTORY Problem Relation Age of Onset [...] No Family History Schizophrenia No Family History [id number] Allergies: ALLERGIES No Known Allergies Current Outpatient Medications: tirzepatide (MOUNJARO SQ) Inject subcutaneously. sucralfate (CARAFATE) 1 gram tablet Take 1 g by mouth three times a day. hydrOXYzine HCl (ATARAX) 25 mg tablet 25 mg. alendronate (FOSAMAX) 70 mg tablet Take 70 mg by mouth one time a week. ondansetron (ZOFRAN) 4 mg tablet TAKE 1 TO 2 TABLETS BY MOUTH EVERY 8 HOURS NEEDED FOR NAUSEA FOR 5 DAYS ferrous sulfate (IRON, FERROUS SULFATE,) 325 mg (65 mg iron) tablet INFUSION hydrOXYchloroQUINE (PLAQUENIL) 200 mg tablet Take 1 tablet by mouth once daily. buPROPion XL (WELLBUTRIN XL) 150 mg 24 hr tablet Take 150 mg by mouth once daily. TAKE 1 TABLET BY MOUTH ONCE DAILY IN THE MORNING HYDROcodone-acetaminophen (NORCO) 5-325 mg per tablet Take 1 tablet by mouth every 8 hours as needed. ibuprofen (MOTRIN) (more content not included)...[facility] 11-24-2024 NoteHNO ID: [id number] Author: ROSIE RAJPUT RN Service: ? Author Type: Registered Nurse Type: Progress Notes Filed: 11/24/2024 15:37 Note Text: Pt had iron infusions in the past and declines to stay extra 15 mins post infusion.[facility]08-19-2025 History of Present illness Narrative* Rosie Rajput RN - 11/24/2024 3:36 PM EDT Pt had iron infusions in the past and declines to stay extra 15 mins post infusion. [facility] Discharge instructions Patient Education 11/22/2024 10:14:16 Understanding Bradycardia Understanding Bradycardia Your heart has an electrical system that sends signals to control the heartbeat. Any abnormal change in the speed or pattern of the heartbeat is called an arrhythmia. An arrhythmia that causes the heart to beat slower than normal is called bradycardia. There are many types of bradycardia. In healthy children and adults, bradycardia is often normal, particularly during sleep. Sometimes bradycardiais caused by failure of the heart s natural timer or failure of the electrical pathways within the heart. Depending on the type you have and how severe it is, you may need treatment. What causes bradycardia? Many things can cause bradycardia, including: Natural aging process Coronary artery disease Heart attack Heart muscle disease Problems with the SA node. This is the heart s natural pacemaker that starts each heartbeat. Problems with the electrical pathways in the heart Problems with the structure of the heart that you are born with Infection Use of certain medicines Electrolyte imbalance Underactive thyroid Sleep apnea Increased pressure in the brain or stroke Well-conditioned athletes often have a naturally slow heart rate. What are the symptoms of bradycardia? Bradycardia can cause a slow or irregular heartbeat. It can also make it harder for the heart to pump blood to the body. This may cause symptoms such as: Tiredness Weakness Loss of ability to exercise Shortness of breath Dizziness or fainting Chest pain Heart failure Some people with bradycardia have no symptoms at all. How is bradycardia treated? Treatment for bradycardia depends on the cause. It also depends on the type you have and how severeyour symptoms are. If you need treatment, your options may include: Treatment of the underlying cause. For instance, if a medicine is causing bradycardia, stopping themedicine, under your doctor s guidance, may correct the problem. Or if a condition such as an underactive thyroid is the cause, treating the thyroid may keep bradycardia from coming back. Medicines. Medicines may be used to treat conditions that cause bradycardia. Some medicines can also be used in the short-term to increase the heart rate. These are often not long-term solutions. Temporary pacing. Pacing is used to help regulate your heartbeat.When the heart beats too slowly, the device sends signals to keep the heart beating at the right pace. A temporary pacemaker may be connected to the heart using wires guided through a blood vessel in your neck or leg to the heart. This is also sometimes done using special pads placed on the chest. This may be used in an emergency, as a bridge to permanent pacing, when pacing is only needed short- term, or to further evaluate your condition. Pacemaker. This is a device that is placed permanently under the skin in your chest and connected to your heart. When the heart beats too slowly, the device sends signals to keep the heart beating atthe right pace. What are the complications of bradycardia? These can include: Development of other types of arrhythmias Heart failure. This problem occurs when the heart weakens so much that it no longer pumps blood well. Sudden cardiac arrest. This is when the heart suddenly stops beating. When should I call my healthcare provider? Call your healthcare provider right away if you have any of these: Symptoms that don t get better with treatment, or get worse New symptoms [id number] [employer]. [address] [place] [address], [place] [address]. All rights reserved. This information is not intended as a substitute for professional medical care. Always follow yourhealthcare professional's instructions. 11/22/2024 10:14:07 Understanding Atrial Fibrillation Understanding Atrial Fibrillation An arrhythmia is any problem with the speed or pattern of the heartbeat. Atrial fibrillation (AFib)is the most common type of arrhythmia. It causes fast, chaotic electrical signals in the atria. This makes it hard for the heart to work as it should. It also affects how much blood your heart can pump out to the body. AFib may occur once in a while and go away on its own. Or it may continue for longer periods and need treatment. AFib can lead to serious problems, such as stroke. Your healthcare provider will need to monitor and manage it. What happens during atrial fibrillation? The heart has an electrical system that sends signals to control the heartbeat. As signals move through the heart, they tell the heart s upper chambers (atria) and lower chambers (ventricles) when tosqueeze (contract) and relax. This lets blood move through the heart and out to the body and lungs. With AFib, the atria receive abnormal signals. This causes them to contract in a fast and irregularway, and out of sync with the ventricles. When this happens, the atria also have a harder time moving blood into the ventricles. Blood may then pool in the atria. This increases the risk for blood clots and stroke. The ventricles also may contract too quickly and irregularly. As a result, they may not pump blood to the body and lungs as well as they should. This can weaken the heart muscle over time and cause heart failure. What causes atrial fibrillation? AFib is more common in older adults. It has many possible causes: Coronary artery disease Heart valve disease Heart attack Heart surgery High blood pressure Thyroid disease Diabetes Lung disease Sleep apnea Heavy alcohol use In some cases of AFib, doctors don't know the cause. What are the symptoms of atrial fibrillation? AFib may not cause symptoms. If symptoms do occur, they may include: A fast, pounding, irregular heartbeat Shortness of breath Tiredness Dizziness or fainting Chest pain How is atrial fibrillation treated? Treatments for AFib can include any of the options below. Medicines. You may be prescribed: oHeart rate medicines to help slow down the heartbeat oHeart rhythm medicines to help the heart beat more regularly oBlood thinners or anti-clotting medicines to help reduce the risk for blood clots and stroke. Left atrial appendage closure. Your healthcare provider may advise this device to prevent stroke. You may need if you are at high risk for stroke but have problems taking blood-thinner (anticoagulant) medicines. The device is placed in the part of the heart where most clots form. This area is called the left atrial appendage (ERASMO). It's a pouch-like structure in the muscle wall of the left atrium. The device closes off the ERASMO to prevent clots moving from the heart to the brain and causing a stroke. Electrical cardioversion. Your healthcare provider uses special pads or paddles to send one or morebrief electrical shocks to the heart. This can help reset the heartbeat to normal. Ablation. Long, thin tubes (catheters) are threaded through a blood vessel to the heart. There, thecatheters send out hot or cold energy to the areas causing the abnormal signals. This energy destroys the problem tissue or cells. This improves the chances that your heart will stay in normal rhythmwithout using medicines. If your heart rate and rhythm can t be controlled, you may need ablation and a pacemaker. These will help control the heart rate and regularity of the heartbeat. Surgery. During surgery, your healthcare provider may use different methods to create scar tissue in the areas of the heart causing the abnormal signals. The scar tissue disrupts the abnormal signalsand may stop AFib from occurring. Hybrid surgical-catheter ablation for AFib. This treatment is used for people with AFib that continues or is hard to treat.. It combines surgery with a catheter ablation. During the surgery, the surgeon makes small cuts (incisions) between the ribs in the chest or in the abdomen near the sternum. The surgeon puts a scope through the incisions to get to the backside of the heart. The catheter portion of the procedure is done by putting a catheter into a vein in the groin. The catheter is guided to the inside of the heart. Using the catheter, radiofrequency ablation is done to destroy the tissue inside the heart that is causing the AFib. Using both of these approaches may work better to blockthe abnormal electrical signals and be a more permanent treatment for persistent AFib. What are possible complications of atrial fibrillation? Complications can include: Blood clots Stroke Heart failure. This problem occurs when the heart muscle weakens so much that it can no longer pumpblood well. When should I call my healthcare provider? Call your healthcare provider right away if you have any of these: Symptoms that don t get better with treatment, or get worse New symptoms [phone] [employer]. [address] [place] [address]. All rights reserved. This information is not intended as a substitute for professional medical care. Always follow yourhealthcare professional's instructions. Follow Up Care 11/22/2024 09:51:22 With:WARREN PRICE APRN-RADIOLOGY CLERK Address: [address] [facility] [address] [facility] [place] [address]- [phone] When:2-4 days Comments:also sees patients in [facility] 08-17-2025 Note Discharge Instructions Thank you for allowing [facility] to assist you with your healthcare needs. The following is importantdischarge information regarding your hospital visit. Diagnosis from Today's Visit History of cardiac arrhythmia What to Do Next Instructions from Your Care Team No qualifying data available. Post Acute Orders No qualifying data available. You Need to Schedule the Following Appointments Follow Up with WARREN PRICE When:Within 2-4 days Where:[address] [facility] [place] [address]- [phone] Additional Information: also sees patients in [facility] Allergies [facility] Medications Please ask your primary doctor or pharmacist before taking any other medication not listed, including over the counter drugs, herbal medications, vitamins and or supplements as they may interact withyour home medications. What How Much When Instructions Last Dose Unchanged acetaminophen-oxyCODONE (zzzacetaminophen-OXYcodone 325-5 mg tablet) TAKE 1 TO 2 TABLETS BY MOUTH EVERY 6 HOURS NEEDED FOR PAIN Unchanged buPROPion (Wellbutrin XL 150 mg/ 24 hours oral tablet, extended release) 1 tab(s) by mouth Every 24 hours Unchanged FLUoxetine (PROzac 20 mg oral capsule) 1 cap by mouth Once a day Unchanged furosemide (furosemide 20 mg oral tablet) Take one tablet by mouth once a day Unchanged gabapentin (Neurontin 300 mg oral capsule) 3 cap by mouth Three (3) times a day Unchanged hydroxychloroquine (Plaquenil 200 mg oral tablet) 1 tab(s) by mouth Once a day Unchanged insulin glargine (Lantus Solostar Pen 100 units/ mL 3 mL Pen (NF)) 64 unit(s) Subcutaneous Daily at bedtime Unchanged insulin lispro (HumaLOG) (HumaLOG 100 units/ mL injectable solution) 5 unit(s) Subcutaneous Three (3) times a day before meals Unchanged meloxicam (Mobic 7.5 mg oral tablet) 1 tab(s) by mouth Once a day Unchanged metFORMIN (metFORMIN 500 mg oral tablet) 1 tab(s) by mouth Two (2) times a day Unchanged morphine (morphine 15 mg/ 8 hr oral tablet, extended release) TAKE 1 TABLET IN THE MORNING AND 2 TABLETS IN THE IN THE EVENING DAILY Unchanged omeprazole (NF) (omeprazole 40 mg oral delayed release capsule (NF)) 1 cap by mouth Once a day Unchanged pravastatin (Pravachol 20 mg oral tablet) 1 tab(s) by mouth Once a day Unchanged triazolam (Halcion) 0.125 Milligram by mouth Daily at bedtime Please take this list to your next doctor s visit. Bring all medications you take, including over the counter medications, herbals and other supplements with you to your doctor s visit. Patients and families are reminded to discard old lists and to update any records with all medication providers or retail pharmacies. Education Materials Understanding Bradycardia Your heart has an electrical system that sends signals to control the heartbeat. Any abnormal change in the speed or pattern of the heartbeat is called an arrhythmia. An arrhythmia that causes the heart to beat slower than normal is called bradycardia. There are many types of bradycardia. In healthy children and adults, bradycardia is often normal, particularly during sleep. Sometimes bradycardiais caused by failure of the heart s natural timer or failure of the electrical pathways within the heart. Depending on the type you have and how severe it is, you may need treatment. What causes bradycardia? Many things can cause bradycardia, including: Natural aging process Coronary artery disease Heart attack Heart muscle disease Problems with the SA node. This is the heart s natural pacemaker that starts each heartbeat. Problems with the electrical pathways in the heart Problems with the structure of the heart that you are born with Infection Use of certain medicines Electrolyte imbalance Underactive thyroid Sleep apnea Increased pressure in the brain or stroke Well-conditioned athletes often have a naturally slow heart rate. What are the symptoms of bradycardia? Bradycardia can cause a slow or irregular heartbeat. It can also make it harder for the heart to pump blood to the body. This may cause symptoms such as: Tiredness Weakness Loss of ability to exercise Shortness of breath Dizziness or fainting Chest pain Heart failure Some people with bradycardia have no symptoms at all. How is bradycardia treated? Treatment for bradycardia depends on the cause. It also depends on the type you have and how severeyour symptoms are. If you need treatment, your options may include: Treatment of the underlying cause. For instance, if a medicine is causing bradycardia, stopping themedicine, under your doctor s guidance, may correct the problem. Or if a condition such as an underactive thyroid is the cause, treating the thyroid may keep bradycardia from coming back. Medicines. Medicines may be used to treat conditions that cause bradycardia. Some medicines can also be used in the short-term to increase the heart rate. These are often not long-term solutions. Temporary pacing. Pacing is used to help regulate your heartbeat.When the heart beats too slowly, the device sends signals to keep the heart beating at the right pace. A temporary pacemaker may be connected to the heart using wires guided through a blood vessel in your neck or leg to the heart. This is also sometimes done using special pads placed on the chest. This may be used in an emergency, as a bridge to permanent pacing, when pacing is only needed short- term, or to further evaluate your condition. Pacemaker. This is a device that is placed permanently under the skin in your chest and connected to your heart. When the heart beats too slowly, the device sends signals to keep the heart beating atthe right pace. What are the complications of bradycardia? These can include: Development of other types of arrhythmias Heart failure. This problem occurs when the heart weakens so much that it no longer pumps blood well. Sudden cardiac arrest. This is when the heart suddenly stops beating. When should I call my healthcare provider? Call your healthcare provider right away if you have any of these: Symptoms that don t get better with treatment, or get worse New symptoms [id number] [employer]. [address] [place] [address]. All rights reserved. This information is not intended as a substitute for professional medical care. Always follow yourhealthcare professional's instructions. Understanding Atrial Fibrillation An arrhythmia is any problem with the speed or pattern of the heartbeat. Atrial fibrillation (AFib)is the most common type of arrhythmia. It causes fast, chaotic electrical signals in the atria. This makes it hard for the heart to work as it should. It also affects how much blood your heart can pump out to the body. AFib may occur once in a while and go away on its own. Or it may continue for longer periods and need treatment. AFib can lead to serious problems, such as stroke. Your healthcare provider will need to monitor and manage it. What happens during atrial fibrillation? The heart has an electrical system that sends signals to control the heartbeat. As signals move through the heart, they tell the heart s upper chambers (atria) and lower chambers (ventricles) when tosqueeze (contract) and relax. This lets blood move through the heart and out to the body and lungs. With AFib, the atria receive abnormal signals. This causes them to contract in a fast and irregularway, and out of sync with the ventricles. When this happens, the atria also have a harder time moving blood into the ventricles. Blood may then pool in the atria. This increases the risk for blood clots and stroke. The ventricles also may contract too quickly and irregularly. As a result, they may not pump blood to the body and lungs as well as they should. This can weaken the heart muscle over time and cause heart failure. What causes atrial fibrillation? AFib is more common in older adults. It has many possible causes: Coronary artery disease Heart valve disease Heart attack Heart surgery High blood pressure Thyroid disease Diabetes Lung disease Sleep apnea Heavy alcohol use In some cases of AFib, doctors don't know the cause. What are the symptoms of atrial fibrillation? AFib may not cause symptoms. If symptoms do occur, they may include: A fast, pounding, irregular heartbeat Shortness of breath Tiredness Dizziness or fainting Chest pain How is atrial fibrillation treated? Treatments for AFib can include any of the options below. Medicines. You may be prescribed: oHeart rate medicines to help slow down the heartbeat oHeart rhythm medicines to help the heart beat more regularly oBlood thinners or anti-clotting medicines to help reduce the risk for blood clots and stroke. Left atrial appendage closure. Your healthcare provider may advise this device to prevent stroke. You may need if you are at high risk for stroke but have problems taking blood-thinner (anticoagulant) medicines. The device is placed in the part of the heart where most clots form. This area is called the left atrial appendage (ERASMO). It's a pouch-like structure in the muscle wall of the left atrium. The device closes off the ERASMO to prevent clots moving from the heart to the brain and causing a stroke. Electrical cardioversion. Your healthcare provider uses special pads or paddles to send one or morebrief electrical shocks to the heart. This can help reset the heartbeat to normal. Ablation. Long, thin tubes (catheters) are threaded through a blood vessel to the heart. There, thecatheters send out hot or cold energy to the areas causing the abnormal signals. This energy destroys the problem tissue or cells. This improves the chances that your heart will stay in normal rhythmwithout using medicines. If your heart rate and rhythm can t be controlled, you may need ablation and a pacemaker. These will help control the heart rate and regularity of the heartbeat. Surgery. During surgery, your healthcare provider may use different methods to create scar tissue in the areas of the heart causing the abnormal signals. The scar tissue disrupts the abnormal signalsand may stop AFib from occurring. Hybrid surgical-catheter ablation for AFib. This treatment is used for people with AFib that continues or is hard to treat.. It combines surgery with a catheter ablation. During the surgery, the surgeon makes small cuts (incisions) between the ribs in the chest or in the abdomen near the sternum. The surgeon puts a scope through the incisions to get to the backside of the heart. The catheter portion of the procedure is done by putting a catheter into a vein in the groin. The catheter is guided to the inside of the heart. Using the catheter, radiofrequency ablation is done to destroy the tissue inside the heart that is causing the AFib. Using both of these approaches may work better to blockthe abnormal electrical signals and be a more permanent treatment for persistent AFib. What are possible complications of atrial fibrillation? Complications can include: Blood clots Stroke Heart failure. This problem occurs when the heart muscle weakens so much that it can no longer pumpblood well. When should I call my healthcare provider? Call your healthcare provider right away if you have any of these: Symptoms that don t get better with treatment, or get worse New symptoms 4220-4637 [employer]. [address] [place] [address]. All rights reserved. This information is not intended as a substitute for professional medical care. Always follow yourhealthcare professional's instructions. Additional Information VACCINATE! IT SAVES LIVES! Members of the community who have not yet received the COVID-19 vaccine and would like to receive it can visit one of [facility] vaccine clinics. There are many vaccine clinic locations within the [facility]. For locations and available times, please visit www.gettheshot.coronavirus.[place].gov/. It is important to note that some COVID mobile vaccine clinics are held outdoors and may be canceled in rainy or stormy conditions. To learn more about pediatric vaccinations (ages 5-11), we invite you to visit the [facility] webpage. [email or web address]/[email or web address] learn more about the COVID-19 vaccine, we invite you to visit the CDC website for a list of frequently asked questions. https://www.cdc.gov/coronavirus/2019-ncov/vaccines/faq.html [facility] Patient Portal Access Instructions: Stay connected with your healthcare team and access your personal medical information anytime with the [facility] Patient Portal. If you would like a full copy of your medical records please contact the [facility] Medical Records Department Saturday through Saturday between 8a.m. and 4:30p.m. Please follow the directions below to access the portal: 1.Access the email account you provided upon registration to the [facility].2.Look for an invitation email from [facility].3.Open the email and access the invitation link: Accept Invitation to [facility]4.Fill in the required angel to create your account. Sign into www.[email or web address] with your username and password that you created in the above steps to stay up to date. You can then view a summary of results, a summary of your visits, and the ability to download your summaries to your computer or send the information securely to a physician. Remember that your healthcare information is confidential, so carefully consider who you will allow to register on the [facility] Patient Portal for access to your information. You can also access the [facility] Patient Portal on the mPortal dmitriy. Simply click on Health Records under HealthData and then click on the [employer] logo. HOW TO SAFELY DISPOSE OF PRESCRIPTION MEDICATIONS Please use one of the following methods to safely dispose of your unused medications. 1.Use a drug disposal kit: the drug disposal pouch allows you to safely discard your old and unuseddrugs. Ask your nurse to give you one when you are discharged.2.Visit a local take-back location: Many local pharmacies and police departments have programs that collect old and unwanted prescriptiondrugs. Call your local pharmacy or go to http://bit.[employer]/8B3St6c to find one close to you.3.Make use of household items: Use cat litter or old coffee grounds to dispose medications if other options arenot available. Mix your drugs with these household products, seal them in an airtight container andthrow it into the garbage. Call [facility]: [phone] to be sure your drugs can be disposed of in this way. Some medicines may require a different approach.4.Never flush your medications down the toilet. IF YOU HAVE BEEN PRESCRIBED AN OPIOIDS FOR PAIN If you have been prescribed an opioid (such as hydrocodone, oxycodone or morphine), it is critical to understand the possible side effects and risks of opioid pain medications. Even when taken as directed, opioids can have several side effects including: Tolerance, meaning you might need to take more of a medication for the same pain relief. Nausea, vomiting and/or constipation. Sleepiness, dizziness, dry mouth, confusion, depression or itching. Physical dependence, meaning you have withdrawal symptoms when a medication is stopped ? this can develop within a few days. KNOW YOUR RESPONSIBILITIES It is important to know exactly how much and how often to take the opioid pain medications you are prescribed. Never take opioids in higher amounts or more often than prescribed. Do not combine opioids with alcohol or other drugs that cause drowsiness, such as benzodiazepines, also known as benzos,including diazepam and alprazolam, muscle relaxants or sleep aids. Never sell or share prescriptionopioids. This is illegal. Store opioids in a secure place and out of reach of others (including children, family, friends and visitors). The last page(s) of this document has been signed and retained as a CHART COPY Signatures Patient Education Materials Understanding Bradycardia Understanding Atrial Fibrillation Medication Leaflets My discharge plan and instructions have been reviewed and explained to me and IMARNIE SHARON K understand my current condition and have read and understand these discharge instructions. I have received a written copy of the plan/instructions. If I have questions, I am aware that I should contact my doctor. 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 Salazar and 10 month follow up with Tyler Dixon APRN.RADIOLOGY CLERK Please schedule with spine management. 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 CARDIAC CATH 2007 no stenosis minimal plaque [...] 01/2014 ALLERGIES No Known Allergies INTERVAL HISTORY She is here for follow up. She reports erythema to face. She is taking norco for pain, per pcp. Sites of pain: low back, pain rated 7/10 Joint swelling: intermittent to ankles EMS: yes to back, lasting 10 minutes No recent infections. Tolerating meds. REVIEW OF SYSTEMS GENERAL: No fevers HEENT: no frequent headaches RESPIRATORY: Negative for cough, hemoptysis, wheezing, or shortness of breath CARDIOVASCULAR: Negative for chest pain GI: + nausea, no vomiting or diarrhea : No history of dysuria SKIN: Negative for lesions, rash No gross hematuria or blood in stool No mouth, + intermittent nasal sores +hair loss +fatigue Photosensitivity- eyes are sensitive, erythema to face Current Outpatient Medications Medication Sig hydrOXYchloroQUINE (PLAQUENIL) 200 mg tablet Take 1 tablet by mouth once daily. buPROPion XL (WELLBUTRIN XL) 150 mg 24 hr tablet Take 150 mg by mouth once daily. TAKE 1 TABLET BY MOUTH ONCE DAILY IN THE MORNING HYDROcodone-acetaminophen (NORCO) 5-325 mg per tablet Take 1 tablet by mouth every 8 hours as needed. midodrine (PROAMITINE) 5 mg tablet Take 10 mg by mouth three times a day with meals. ibuprofen (MOTRIN) 400 mg tablet Take 600 mg by mouth every 8 hours as needed for pain. omeprazole (PRILOSEC) 40 mg capsule Take 1 capsule by mouth once daily. cholecalciferol, Vitamin D3, (VITAMIN D3) 1,250 mcg (50,000 unit) cap capsule Take 1 capsule by mouth one time a week. pravastatin (PRAVACHOL) 20 mg tablet Take 1 tablet by mouth daily at bedtime. empagliflozin (JARDIANCE) 10 mg tablet Take 1 tablet by mouth once daily. Take 1 tablet once daily in the morning blood sugar diagnostic (BLOOD GLUCOSE TEST) test [...] No Family History SOCIAL HISTORY: Lives in [place] Tobacco use: None Alcohol use: None PHYSICAL EXAMINATION: BP 140/83 Pulse (!) 44 Temp 36.6 C (97.8 F) (Temporal) Ht 165.1 cm (5' 5) Wt 88.9 kg (196 lb) LMP 12/07/2007 BMI 32.62 kg/m Repeat HR was 51 General appearance: Well appearing, alert, in no acute distress, well-hydrated, well nourished. Skin: erythema to face, sparing nasal folds Eyes: Anicteric sclera. Pupils are equally round and reactive to light. Oropharynx: Lips, mucosa, and tongue normal, teeth and gums normal, oropharynx normal Neck: Supple, no adenopathy Lungs: Lungs clear to auscultation. No wheezing, rhonchi, rales. Heart: RRR without murmur Abdomen: Normal abdominal exam, Abdomen soft, non-tender. Bowel sounds normal. No masses, organomegaly Neuro: ambulates with walker. Sensation grossly intact. JOINTS: TENDER JOINTS: none SWOLLEN JOINTS: none She is able to make a complete fist with both hands Generalized resting tremor noted +tenderness to lumbar spine Labs reviewed and discussed with the patient: Latest Ref Rng 11/12/2024 WBC 3.70 - 11.00 k/uL 10.55 RBC 3.90 - 5.20 m/uL 4.24 Hemoglobin 11.5 - 15.5 g/dL 11.1 (L) Hematocrit 36.0 - 46.0 % 36.9 MCV 80.0 - 100.0 fL 87.0 MCH 26.0 - 34.0 pg 26.2 MCHC 30.5 - 36.0 g/dL 30.1 (L) RDW-CV 11.5 - 15.0 % 15.5 (H) Platelet Count 150 - 400 k/uL 271 MPV 9.0 - 12.7 fL 9.7 Neut% % 59.7 Abs Neut (ANC) 1.45 - 7.50 k/uL 6.30 Lymph% % 25.3 Abs Lymph 1.00 - 4.00 k/uL 2.67 Barren% % 6.2 Abs Barren <0.87 k/uL 0.65 Eosin% % 7.0 Abs Eosin <0.46 k/uL 0.74 (H) Baso% % 0.6 Abs Baso <0.11 k/uL 0.06 Immature Gran % % 1.2 IMMATURE GRANS (ABS) <0.10 k/uL 0.13 (H) NRBC /100 WBC 0.0 Absolute nRBC <0.01 k/uL <0.01 DTYPE Auto Iron 41 - 186 ug/dL 51 TIBC 232 - 386 ug/dL 343 Transferrin Saturation 15.0 - 57.0 % 14.9 (L) Ferritin 14.7 - 205.1 ng/mL 68.3 Latest Ref Rng 01/21/2024 Color Yellow Yellow Clarity Clear Clear Glucose, Urine Negative 3+ ! Bilirubin, Urine Negative Negative Ketones, Urine Negative Negative Specific [place], Ur 1.005 - 1.030 1.015 Hemoglobin/Blood,Ur Negative Negative pH, Urine <8.5 6.0 Protein, Urine Negative Trace ! Urobilinogen 0.2-1.0 EU/dL 0.2 EU/dL Nitrites Negative Positive ! Leukest Negative 2+ ! Protein, Urine Random 0 - 20 mg/dL 17 Creatinine, Ur Random (UCRR) 20.0 - 300.0 mg/dL 42.2 Protein/Creat Ratio <0.15 mg/mg 0.40 (H) Creatinine 0.58 - 0.96 mg/dL 1.42 (H) eGFR >=60 mL/min/1.73m 41 (L) DNA Antibody <=200 IU/mL 1,071 (H) DNA Antibody Qualitative Interpretation Negative Strong Positive ! AST 13 - 35 U/L 21 ALT 7 - 38 U/L 20 Albumin 3.9 - 4.9 g/dL 4.3 WSR 0 - 20 mm/hr 29 (H) CRP <0.9 mg/dL 1.1 (H) C3 86 - 166 mg/dL 135 C4 13 - 46 mg/dL 25 Component Latest Ref Rng & Units 09/25/2012 Sm Antibody <1.0 AI <0.2 PHOTOGRAPHY AND PRINTS CURATOR Antibody <1.0 AI <0.2 SSA Antibody <1.0 AI <0.2 SSB Antibody <1.0 AI <0.2 Centromere Ab <1.0 AI <0.2 Scleroderma Ab, IgG <1.0 AI <0.2 Rupa 1 Antibody <1.0 AI <0.2 Ribosomal PHOTOGRAPHY AND PRINTS CURATOR <1.0 AI <0.2 Chromatin Antibody <1.0 AI [...] with +NAIF 170 and +SSA 158. Stable overall. - Continue HCQ 200mg/day along with routine eye exams to monitor for potential retinal toxicity, last normal in 07/2024. -r/b/a of med discussed - Check labs now. Notify of results via Mynglet 2. Osteoarthritis: L knee OA s/p L TKA - Continue ortho follow-up prn - Avoid NSAIDs PO given CKD 3. Fibromyalgia: - Continue gabapentin and pain management follow-up 4. Lumbar DDD: Per MRI with DDD And multilevel spondylosis. With current low back pain. -previously saw pain management -consult placed to spine 5. CKD: - Renally dose medications, avoid NSAIDs PO 6. Tremor: Likely benign essential tremor. Explained that tremor would less likely be due to lupus especially as all the other manifestations are stable. - continue f/u with pcp/neurology 7. General health maintenance: - Advised to continue follow-up with PCP for routine health maintenance and malignancy screening -she was advised to stay well hydrated and f/u with pcp for low HR Follow-up in 5 months or sooner if needed. Patient was instructed to call if any questions or concerns. Thank you for allowing me to participate in the care of your patient. Medical Decision Making: Problems: Moderate: 2+ stable chronic illnesses and 1+ chronic illnesses with change Data: Unique test result(s) reviewed: 3+ Unique test(s) ordered: 3+ Independent interpretation of test from other physician/QHCP Risk: High: Drug therapy requiring intensive monitoring Medical Decision Making Level: 5 - High Tyler Dixon APRN.RADIOLOGY CLERK documented [facility] NoteHNO ID: [id number] Author: TYLER DIXON APRN.RADIOLOGY CLERK Service: ? 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 CARDIAC CATH 2007 no stenosis minimal plaque [...] 01/2014 ALLERGIES No Known Allergies INTERVAL HISTORY She is here for follow up. She reports erythema to face. She is taking norco for pain, per pcp. Sites of pain: low back, pain rated 7/10 Joint swelling: intermittent to ankles EMS: yes to back, lasting 10 minutes No recent infections. Tolerating meds. REVIEW OF SYSTEMS GENERAL: No fevers HEENT: no frequent headaches RESPIRATORY: Negative for cough, hemoptysis, wheezing, or shortness of breath CARDIOVASCULAR: Negative for chest pain GI: + nausea, no vomiting or diarrhea : No history of dysuria SKIN: Negative for lesions, rash No gross hematuria or blood in stool No mouth, + intermittent nasal sores +hair loss +fatigue Photosensitivity- eyes are sensitive, erythema to face Current Outpatient Medications Medication Sig hydrOXYchloroQUINE (PLAQUENIL) 200 mg tablet Take 1 tablet by mouth once daily. buPROPion XL (WELLBUTRIN XL) 150 mg 24 hr tablet Take 150 mg by mouth once daily. TAKE 1 TABLET BY MOUTH ONCE DAILY IN THE MORNING HYDROcodone-acetaminophen (NORCO) 5-325 mg per tablet Take 1 tablet by mouth every 8 hours as needed. midodrine (PROAMITINE) 5 mg tablet Take 10 mg by mouth three times a day with meals. ibuprofen (MOTRIN) 400 mg tablet Take 600 mg by mouth every 8 hours as needed for pain. omeprazole (PRILOSEC) 40 mg capsule Take 1 capsule by mouth once daily. cholecalciferol, Vitamin D3, (VITAMIN D3) 1,250 mcg (50,000 unit) cap capsule Take 1 capsule by mouth one time a week. pravastatin (PRAVACHOL) 20 mg tablet Take 1 tablet by mouth daily at bedtime. empagliflozin (JARDIANCE) 10 mg tablet Take 1 tablet by mouth once daily. Take 1 tablet once daily in the morning blood sugar diagnostic (BLOOD GLUCOSE TEST) test [...] Coronary Artery Disease No Family History Bipolar d (more content not included)...[facility]08-12-2025 Telephone encounter Note* Telephone Encounter - Ava Dye - 11/17/2024 11:25 AM EDT Spoke w pt and this is scheduled as directed. Start emal sent. Ava Dye [facility]08-12-2025 Miscellaneous Notes* Telephone Encounter - Ava Dye - 11/17/2024 11:25 AM EDT Spoke w pt and this is scheduled as directed. Start emal sent. Ava Dye * Telephone Encounter - Hailey Woodruff - 11/13/2024 11:44 AM EDT Lvm for patient to return the call to schedule Hailey Woodruff * Telephone Encounter - Saige Wallis APRN.CNP - 11/13/2024 9:38 AM EDT Please inform pt. that she needs some iron. Please schedule for iron sucrose x5. CBC/iron studies in 3 months. OV/CBC/iron studies in 6 months. Thank you. Saige Wallis APRN.RADIOLOGY CLERK documented [facility] Telephone encounter Note * Telephone Encounter - Hailey Woodruff - 11/13/2024 11:44 AM EDT Lvm for patient to return the call to schedule Hailey Woodruff [facility]08-08-[facility] Telephone encounter Note* Telephone Encounter - Saige Wallis APRN.CNP - 11/13/2024 9:38 AM EDT Please inform pt. that she needs some iron. Please schedule for iron sucrose x5. CBC/iron studies in 3 months. OV/CBC/iron studies in 6 months. Thank you. Saige Wallis APRN.RADIOLOGY CLERK [facility]08-07-[facility]25 NoteHNO ID: [id number] Author: SAIGE WALLIS APRN.TODD Service: ? Author Type: Nurse Practitioner Type: Progress Notes Filed: 11/12/2024 11:13 Note Text: Chief Complaint Patient presents with: Follow Up HPI: Corinna Carr is a 69 year old female who presents here today [...] 12-11/02/19. Last received iron sucrose November 2022. I've been tired. Appetite:Not really but I eat. I've gained back the weight that I lost. Pt. declined wt. today. Energy level:Poor. Denies fevers or recent illness. 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 Past medical history, appointments, medications, allergies reviewed. No changes. EXAM: BP 110/60 Pulse (!) 56 Temp 36.1 ?C (97 ?F) (Temporal) Resp 14 LMP 12/07/2007 SpO2 99% APPEARANCE Well appearing, alert, in no acute distress, well-hydrated, well nourished. HEART RRR with normal S1 and S2, no murmurs LUNG clear to auscultation LYMPH NODES No cervical lymphadenopathy, No supraclavicular lymphadenopathy ABDOMEN bowel sounds normoactive, soft, non-tender EXTREMITIES No edema NEURO Awake, alert and oriented x 3, using wheeled walker and No involuntary motions. SKIN Skin color, texture, turgor normal, no suspicious rashes or lesions LABS: Latest Ref Rng 03/17/2024 06/30/2024 11/12/2024 WBC 3.70 - 11.00 k/uL 10.70 9.90 10.55 RBC 3.90 - 5.20 m/uL 5.04 5.21 (H) 4.24 Hemoglobin 11.5 - 15.5 g/dL 13.4 13.6 11.1 (L) Hematocrit 36.0 - 46.0 % 44.0 45.9 36.9 MCV 80.0 - 100.0 fL 87.3 88.1 87.0 MCH 26.0 - 34.0 pg 26.6 26.1 26.2 MCHC 30.5 - 36.0 g/dL 30.5 29.6 (L) 30.1 (L) RDW-CV 11.5 - 15.0 % 14.6 16.3 (H) 15.5 (H) Platelet Count 150 - 400 k/uL 290 320 271 MPV 9.0 - 12.7 fL 10.9 10.4 9.7 Neut% % 78.6 55.6 59.7 Abs Neut (ANC) 1.45 - 7.50 k/uL 8.41 (H) 5.51 6.30 Lymph% % 12.7 29.4 25.3 Abs Lymph 1.00 - 4.00 k/uL 1.36 2.91 2.67 Barren% % 5.5 6.6 6.2 Abs Barren <0.87 k/uL 0.59 0.65 0.65 Eosin% % 2.2 6.8 7.0 Abs Eosin <0.46 k/uL 0.24 0.67 (H) 0.74 (H) Baso% % 0.5 0.9 0.6 Abs Baso <0.11 k/uL 0.05 0.09 0.06 Immature Gran % % 0.5 0.7 1.2 IMMATURE GRANS (ABS) <0.10 k/uL 0.05 0.07 0.13 (H) NRBC /100 WBC 0.0 0.0 0.0 Absolute nRBC <0.01 k/uL <0.01 <0.01 <0.01 DTYPE Auto Auto Auto Iron studies: Pending ASSESSMENT/PLAN: [...] anemia. -Incidentally, reviewed old CT images from [facility]. 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 Calcified lesion that was stable in 2016 and April [address] imaging. I personally reviewed those 2 CT scans with 1 done in 2009. Was stable on CT imaging from (more content not included)...[facility]06-25-2025 Telephone encounter Note* Telephone Encounter - Tyler Dixon APRN.RADIOLOGY CLERK - 09/30/2024 12:12 PM EDT The following approved medication requests have been transmitted electronically. Requested Prescriptions Signed Prescriptions Disp Refills hydrOXYchloroQUINE (PLAQUENIL) 200 mg tablet 90 tablet 1 Sig: Take 1 tablet by mouth once daily. Authorizing Provider: TYLER DIXON APRN.CNP [facility]06-25-[facility] Miscellaneous Notes* Telephone Encounter - Tyler Dixon APRN.CNP - 09/30/2024 12:12 PM EDT The following approved medication requests have been transmitted electronically. Requested Prescriptions Signed Prescriptions Disp Refills hydrOXYchloroQUINE (PLAQUENIL) 200 mg tablet 90 tablet 1 Sig: Take 1 tablet by mouth once daily. Authorizing Provider: TYLER DIXON APRN.CNP * Telephone Encounter - Ilda Luna MA - 09/30/2024 11:52 AM EDT Patient has been identified by name and date of : Yes RX INSTRUCTIONS: Patient aware RX will be sent to pharmacy. No need to notify patient. PLQ eye exam done on 08/04/2024 at [facility]. No evidence of PLQ toxicity. LAST APPOINTMENT: 01/21/2024 UPCOMING APPOINTMENT: 11/20/2024 LABS: Hemoglobin (g/dL) Date Value 06/30/2024 13.6 05/15/2021 11.1 Hematocrit (%) Date Value 06/30/2024 45.9 05/15/2021 37.7 WBC (k/uL) Date Value 06/30/2024 9.90 05/15/2021 11.79 Platelet Count (k/uL) Date Value 06/30/2024 320 05/15/2021 317 AST Date Value Ref Range Status 01/21/2024 21 13 - 35 U/L Final ALT Date Value Ref Range Status 01/21/2024 20 7 - 38 U/L Final Creatinine Date Value Ref Range Status 01/21/2024 1.42 (H) 0.58 - 0.96 mg/dL Final No results found for: URICACID Ilda Luna MA documented in this encounter[facility] Telephone encounter Note * Telephone Encounter - Ilda Luna MA - 09/30/2024 11:52 AM EDT Patient has been identified by name and date of : Yes RX INSTRUCTIONS: Patient aware RX will be sent to pharmacy. No need to notify patient. PLQ eye exam done on 08/04/2024 at [facility]. No evidence of PLQ toxicity. LAST APPOINTMENT: 01/21/2024 UPCOMING APPOINTMENT: 11/20/2024 LABS: Hemoglobin (g/dL) Date Value 06/30/2024 13.6 05/15/2021 11.1 Hematocrit (%) Date Value 06/30/2024 45.9 05/15/2021 37.7 WBC (k/uL) Date Value 06/30/2024 9.90 05/15/2021 11.79 Platelet Count (k/uL) Date Value 06/30/2024 320 05/15/2021 317 AST Date Value Ref Range Status 01/21/2024 21 13 - 35 U/L Final ALT Date Value Ref Range Status 01/21/2024 20 7 - 38 U/L Final Creatinine Date Value Ref Range Status 01/21/2024 1.42 (H) 0.58 - 0.96 mg/dL Final No results found for: URICACID Ilda Luna MA [facility]05-28-2025 Telephone encounter Note* Telephone Encounter - Tyler Dixon APRN.CNP - 09/02/2024 4:07 PM EDT The following approved medication requests have been transmitted electronically. Requested Prescriptions Signed Prescriptions Disp Refills hydrOXYchloroQUINE (PLAQUENIL) 200 mg tablet 90 tablet 0 Sig: Take 1 tablet by mouth once daily Authorizing Provider: TYLER DIXON APRN.TODD [facility]05-28-2025 Miscellaneous Notes* Telephone Encounter - Tyler Dixon APRN.CNP - 09/02/2024 4:07 PM EDT The following approved medication requests have been transmitted electronically. Requested Prescriptions Signed Prescriptions Disp Refills hydrOXYchloroQUINE (PLAQUENIL) 200 mg tablet 90 tablet 0 Sig: Take 1 tablet by mouth once daily Authorizing Provider: TYLER DIXON APRN.CNP * Telephone Encounter - Ilda Luna MA - 09/02/2024 11:05 AM EDT Received more recent eye exam. PLQ eye exam done on 08/04/2024 at [facility]. No evidence of PLQ toxicity. Ilda Luna MA * Telephone Encounter - Ilda Luna MA - 09/02/2024 8:19 AM EDT Patient has been identified by name and date of : Yes RX INSTRUCTIONS: Patient aware RX will be sent to pharmacy. No need to notify patient. Eye exam for Plaquenil toxicity received from [facility]. Exam date was 04/11/2023. Exam shows no signs of Plaquenil toxicity. Attempted to reach patient. No answer. Message left on patient's voicemail to have PLQ eye exam done [facility]. LAST APPOINTMENT: 01/21/2024 UPCOMING APPOINTMENT: 11/20/2024 LABS: Hemoglobin (g/dL) Date Value 06/30/2024 13.6 05/15/2021 11.1 Hematocrit (%) Date Value 06/30/2024 45.9 05/15/2021 37.7 WBC (k/uL) Date Value 06/30/2024 9.90 05/15/2021 11.79 Platelet Count (k/uL) Date Value 06/30/2024 320 05/15/2021 317 AST Date Value Ref Range Status 01/21/2024 21 13 - 35 U/L Final ALT Date Value Ref Range Status 01/21/2024 20 7 - 38 U/L Final Creatinine Date Value Ref Range Status 01/21/2024 1.42 (H) 0.58 - 0.96 mg/dL Final No results found for: URICACID Ilda Luna MA documented in this encounterSouthern [facility]05-28-2025 Telephone encounter Note * Telephone Encounter - Ilda Luna MA - 09/02/2024 11:05 AM EDT Received more recent eye exam. PLQ eye exam done on 08/04/2024 at [facility]. No evidence of PLQ toxicity. Ilda Luna MA [facility]05-28-2025 NoteHNO ID: [id number] Author: ILDA LUNA MA Service: ? Author Type: Natural Resources Extension Educator Type: Progress Notes Filed: 09/02/2024 11:06 Note Text: PLQ eye exam done on 08/04/2024 at [facility]. No evidence of PLQ toxicity. Report sent for scanning. [facility] History of Present illness Narrative* Ilda Luna MA - 09/02/2024 11:04 AM EDT PLQ eye exam done on 08/04/2024 at [facility]. No evidence of PLQ toxicity. Report sent for scanning. Ilda Luna MA documented in this encounterSouthern [facility]05-28-2025 Telephone encounter Note * Telephone Encounter - Ilda Luna MA - 09/02/2024 8:19 AM EDT Patient has been identified by name and date of : Yes RX INSTRUCTIONS: Patient aware RX will be sent to pharmacy. No need to notify patient. Eye exam for Plaquenil toxicity received from [facility]. Exam date was 04/11/2023. Exam shows no signs of Plaquenil toxicity. Attempted to reach patient. No answer. Message left on patient's voicemail to have PLQ eye exam done [facility]. LAST APPOINTMENT: 01/21/2024 UPCOMING APPOINTMENT: 11/20/2024 LABS: Hemoglobin (g/dL) Date Value 06/30/2024 13.6 05/15/2021 11.1 Hematocrit (%) Date Value 06/30/2024 45.9 05/15/2021 37.7 WBC (k/uL) Date Value 06/30/2024 9.90 05/15/2021 11.79 Platelet Count (k/uL) Date Value 06/30/2024 320 05/15/2021 317 AST Date Value Ref Range Status 01/21/2024 21 13 - 35 U/L Final ALT Date Value Ref Range Status 01/21/2024 20 7 - 38 U/L Final Creatinine Date Value Ref Range Status 01/21/2024 1.42 (H) 0.58 - 0.96 mg/dL Final No results found for: URICACID Ilda Luna MA [facility]04-16-[facility] Telephone encounter Note* Telephone Encounter - Ryan Hercules - 07/22/2024 10:06 AM EDT This patient's doctor office called in and requested that we call the patient for an appointment. This patient needs to be seen for Nausea, Vomiting, an Unintentional weight loss. [facility]04-16-2025 Miscellaneous Notes* Telephone Encounter - Ryan Hercules - 07/22/2024 10:06 AM EDT This patient's doctor office called in and requested that we call the patient for an appointment. This patient needs to be seen for Nausea, Vomiting, an Unintentional weight loss. documented in this encounterSouthern [facility]03-31-2025 Telephone encounter Note * Telephone Encounter - Tyler Dixon APRN.CNP - 07/06/2024 4:00 PM EDT Noted. Tyler Zamora APRN.CNP [facility]03-31-2025 Miscellaneous Notes* Telephone Encounter - Tyler Dixon APRN.CNP - 07/06/2024 4:00 PM EDT Noted. Tyler Zamora APRN.CNP * Telephone Encounter - Ilda Luna MA - 07/06/2024 3:34 PM EDT Noted, forwarding to provider. Ilda Luna MA * Telephone Encounter - Madeline Alatorre - 07/06/2024 3:27 PM EDT Patient has an appointment on 08/04/24 at 2:00 pm for her Plaquenil check.. This is the soonest she can get in to her eye provider, and they will fax the results to Tyler Dixon. documented in this encounterSouthern [facility]03-31-2025 Telephone encounter Note * Telephone Encounter - Ilda Luna MA - 07/06/2024 3:34 PM EDT Noted, forwarding to provider. Ilda Luna MA [facility]03-31-2025 Telephone encounter Note* Telephone Encounter - Madeline Alatorre - 07/06/2024 3:27 PM EDT Patient has an appointment on 08/04/24 at 2:00 pm for her Plaquenil check.. This is the soonest she can get in to her eye provider, and they will fax the results to Tyler Dixon. [facility]03-31-2025 Telephone encounter Note* Telephone Encounter - Tyler Dixon APRN.CNP - 07/06/2024 12:46 PM EDT Agree she is due for eye exam. Short term script sent. The following approved medication requests have been transmitted electronically. Requested Prescriptions Signed Prescriptions Disp Refills hydrOXYchloroQUINE (PLAQUENIL) 200 mg tablet 30 tablet 0 Sig: Take 1 tablet by mouth once daily Authorizing Provider: TYLER DIXON APRN.CNP [facility]03-31-2025 Miscellaneous Notes* Telephone Encounter - Tyler Dixon APRN.CNP - 07/06/2024 12:46 PM EDT Agree she is due for eye exam. Short term script sent. The following approved medication requests have been transmitted electronically. Requested Prescriptions Signed Prescriptions Disp Refills hydrOXYchloroQUINE (PLAQUENIL) 200 mg tablet 30 tablet 0 Sig: Take 1 tablet by mouth once daily Authorizing Provider: TYLER DIXON APRN.CNP * Telephone Encounter - Ilda Luna MA - 07/06/2024 8:27 AM EDT Patient has been identified by name and date of : Yes RX INSTRUCTIONS: Patient aware RX will be sent to pharmacy. No need to notify patient. Eye exam for Plaquenil toxicity received from [facility]. Exam date was 04/11/2023. Exam shows no signs of Plaquenil toxicity. Attempted to reach patient. No answer. Message left on patient's voicemail to have PLQ eye exam done [facility]. LAST APPOINTMENT: 01/21/2024 UPCOMING APPOINTMENT: 11/20/2024 LABS: Hemoglobin (g/dL) Date Value 06/30/2024 13.6 05/15/2021 11.1 Hematocrit (%) Date Value 06/30/2024 45.9 05/15/2021 37.7 WBC (k/uL) Date Value 06/30/2024 9.90 05/15/2021 11.79 Platelet Count (k/uL) Date Value 06/30/2024 320 05/15/2021 317 AST Date Value Ref Range Status 01/21/2024 21 13 - 35 U/L Final ALT Date Value Ref Range Status 01/21/2024 20 7 - 38 U/L Final Creatinine Date Value Ref Range Status 01/21/2024 1.42 (H) 0.58 - 0.96 mg/dL Final No results found for: URICACID Ilda Luna MA documented in this encounterSouthern [facility]03-31-2025 Telephone encounter Note * Telephone Encounter - Ilda Luna MA - 07/06/2024 8:27 AM EDT Patient has been identified by name and date of : Yes RX INSTRUCTIONS: Patient aware RX will be sent to pharmacy. No need to notify patient. Eye exam for Plaquenil toxicity received from [facility]. Exam date was 04/11/2023. Exam shows no signs of Plaquenil toxicity. Attempted to reach patient. No answer. Message left on patient's voicemail to have PLQ eye exam done [facility]. LAST APPOINTMENT: 01/21/2024 UPCOMING APPOINTMENT: 11/20/2024 LABS: Hemoglobin (g/dL) Date Value 06/30/2024 13.6 05/15/2021 11.1 Hematocrit (%) Date Value 06/30/2024 45.9 05/15/2021 37.7 WBC (k/uL) Date Value 06/30/2024 9.90 05/15/2021 11.79 Platelet Count (k/uL) Date Value 06/30/2024 320 05/15/2021 317 AST Date Value Ref Range Status 01/21/2024 21 13 - 35 U/L Final ALT Date Value Ref Range Status 01/21/2024 20 7 - 38 U/L Final Creatinine Date Value Ref Range Status 01/21/2024 1.42 (H) 0.58 - 0.96 mg/dL Final No results found for: URICACID Ilda Luna MA [facility]03-25-2025 NoteHNO ID: [id number] Author: SAIGE WALLIS APRN.RADIOLOGY CLERK Service: ? Author Type: Nurse Practitioner Type: Progress Notes Filed: 06/30/2024 12:42 Note Text: Chief Complaint Patient presents with: Established Patient HPI: Corinna Carr is a 69 year old female who presents here today [...] sucrose November 2022. No new concerns today. Appetite:Not really. Wt. down #35 since November. Energy level:Not really. Denies fevers or recent illness. Resp:denies cough or sob Cardiac:denies chest pain/palpitations GI:denies abd pain, occ. 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 Past medical history, appointments, medications, allergies reviewed. No changes. EXAM: BP 128/84 Pulse 80 Temp 36.4 ?C (97.6 ?F) Wt 78.8 kg (173 lb 11.6 oz) LMP 12/07/2007 SpO2 99% BMI 29.36 kg/m? APPEARANCE Well appearing, alert, in no acute distress, well-hydrated, well nourished. HEART RRR with normal S1 and S2, no murmurs LUNG clear to auscultation LYMPH NODES No cervical lymphadenopathy, No supraclavicular lymphadenopathy, and No axillary lymphadenopathy. ABDOMEN bowel sounds normoactive, soft, non-tender EXTREMITIES No edema NEURO Awake, alert and oriented x 3, using wheeled walker, and No involuntary motions. SKIN Skin color, texture, turgor normal, no suspicious rashes or lesions LABS: Latest Ref Rng 01/21/2024 03/17/2024 06/30/2024 WBC 3.70 - 11.00 k/uL 10.01 10.70 9.90 RBC 3.90 - 5.20 m/uL 4.94 5.04 5.21 (H) Hemoglobin 11.5 - 15.5 g/dL 13.5 13.4 13.6 Hematocrit 36.0 - 46.0 % 45.0 44.0 45.9 MCV 80.0 - 100.0 fL 91.1 87.3 88.1 MCH 26.0 - 34.0 pg 27.3 26.6 26.1 MCHC 30.5 - 36.0 g/dL 30.0 (L) 30.5 29.6 (L) RDW-CV 11.5 - 15.0 % 15.4 (H) 14.6 16.3 (H) Platelet Count 150 - 400 k/uL 290 290 320 MPV 9.0 - 12.7 fL 11.0 10.9 10.4 Neut% % 64.8 78.6 55.6 Abs Neut (ANC) 1.45 - 7.50 k/uL 6.49 8.41 (H) 5.51 Lymph% % 23.4 12.7 29.4 Abs Lymph 1.00 - 4.00 k/uL 2.34 1.36 2.91 Barren% % 5.3 5.5 6.6 Abs Barren <0.87 k/uL 0.53 0.59 0.65 Eosin% % 4.0 2.2 6.8 Abs Eosin <0.46 k/uL 0.40 0.24 0.67 (H) Baso% % 0.6 0.5 0.9 Abs Baso <0.11 k/uL 0.06 0.05 0.09 Immature Gran % % 1.9 0.5 0.7 IMMATURE GRANS (ABS) <0.10 k/uL 0.19 (H) 0.05 0.07 NRBC /100 WBC 0.2 0.0 0.0 Absolute nRBC <0.01 k/uL 0.02 (H) <0.01 <0.01 DTYPE Auto Auto Auto Iron studies: Pending ASSESSMENT/PLAN: 1. Other iron deficiency anemia - ICD9: 280.8, ICD10: D50.[address] Duong's previous note 3/15/21: Assessment: -The patient is a 65-year-old female [...] anemia. -Incidentally, reviewed old CT images from [facility]. 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 Calcified lesion that was stable in 2016 and April [address] imaging. I personally reviewed those 2 CT scans with 1 done in (more content not included)...[facility]03-25-2025 History of Present illness Narrative* Saige Wallis APRN.RADIOLOGY CLERK - 06/30/2024 11:36 AM EDT Chief Complaint Patient presents with: Established Patient HPI: Corinna Carr is a 69 year old female who presents here today [...] erythema in the body and antrum of thestomach without ulcerations. Biopsy of duodenal mucosa showed [...] sucrose November 2022. No new concerns today. Appetite:Not really. Wt. down #35 since November. Energy level:Not really. Denies fevers or recent illness. Resp:denies cough or sob Cardiac:denies chest pain/palpitations GI:denies abd pain, occ. 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 Past medical history, appointments, medications, allergies reviewed. No changes. EXAM: BP 128/84 Pulse 80 Temp 36.4 C (97.6 F) Wt 78.8 kg (173 lb 11.6 oz) LMP 12/07/2007 SpO2 99% BMI 29.36 kg/m APPEARANCE Well appearing, alert, in no acute distress, well-hydrated, well nourished. HEART RRR with normal S1 and S2, no murmurs LUNG clear to auscultation LYMPH NODES No cervical lymphadenopathy, No supraclavicular lymphadenopathy, and No axillary lymphadenopathy. ABDOMEN bowel sounds normoactive, soft, non-tender EXTREMITIES No edema NEURO Awake, alert and oriented x 3, using wheeled walker, and No involuntary motions. SKIN Skin color, texture, turgor normal, no suspicious rashes or lesions LABS: Latest Ref Rng 01/21/2024 03/17/2024 06/30/2024 WBC 3.70 - 11.00 k/uL 10.01 10.70 9.90 RBC 3.90 - 5.20 m/uL 4.94 5.04 5.21 (H) Hemoglobin 11.5 - 15.5 g/dL 13.5 13.4 13.6 Hematocrit 36.0 - 46.0 % 45.0 44.0 45.9 MCV 80.0 - 100.0 fL 91.1 87.3 88.1 MCH 26.0 - 34.0 pg 27.3 26.6 26.1 MCHC 30.5 - 36.0 g/dL 30.0 (L) 30.5 29.6 (L) RDW-CV 11.5 - 15.0 % 15.4 (H) 14.6 16.3 (H) Platelet Count 150 - 400 k/uL 290 290 320 MPV 9.0 - 12.7 fL 11.0 10.9 10.4 Neut% % 64.8 78.6 55.6 Abs Neut (ANC) 1.45 - 7.50 k/uL 6.49 8.41 (H) 5.51 Lymph% % 23.4 12.7 29.4 Abs Lymph 1.00 - 4.00 k/uL 2.34 1.36 2.91 Barren% % 5.3 5.5 6.6 Abs Barren <0.87 k/uL 0.53 0.59 0.65 Eosin% % 4.0 2.2 6.8 Abs Eosin <0.46 k/uL 0.40 0.24 0.67 (H) Baso% % 0.6 0.5 0.9 Abs Baso <0.11 k/uL 0.06 0.05 0.09 Immature Gran % % 1.9 0.5 0.7 IMMATURE GRANS (ABS) <0.10 k/uL 0.19 (H) 0.05 0.07 NRBC /100 WBC 0.2 0.0 0.0 Absolute nRBC <0.01 k/uL 0.02 (H) <0.01 <0.01 DTYPE Auto Auto Auto Iron studies: Pending ASSESSMENT/PLAN: 1. Other iron deficiency anemia - ICD9: 280.8, ICD10: D50.[address] Duong's previous note 06/20/20: Assessment: -The patient is a 65-year-old female with a history of iron deficiency anemia. She has been throughmultiple endoscopies and capsule endoscopy with no particular evidence of significant GI bleed. Shehas received multiple parenteral courses of iron over the last 10 years. Most recently early June of this year. -Her ferritin was improved when last checked. She was since hospitalized for congestive heart failure. She has lost 21 pounds since of hospitalization through diuresis. -Still has mild anemia. -Incidentally, reviewed old CT images from [facility]. The subcutaneous mass in theleft abdomen is fat necrosis. Calcified lesion that [...] 2022. - Reviewed CBC with pt. - Iron studies pending. - Follow up pending today's iron studies. - Pt. aware to call office with any questions/concerns. The patient indicates understanding of these issues and agrees with the plan. All documentation from previous visit of 12/04/23-Dr. Duong/myself was copied and pasted, documentation has been reviewed and edited as necessary for today's visit. Saige Wallis APRN.TODD documented in this encounterSouthern [facility] Center02-07-2025 [facility] Medical Records Department [address] [place] [address] Discharge Summary 05/15/24 1237 MR#: [id number] Acct: [id number] Name: CORINNA CARR Rep #: [id number] : [id number] From: Brigida Lance MD PCP: MICKY Guaman Status:[facility] Date of Admission: 05/07/24 Date of Discharge: 05/15/24 Primary Care Physician: MICKY Guaman Reason For Visit: FALLS W/ RIGHT ANKLE FRACTURE, CONCERN FOR SYNCOPE Diagnosis Discharge Diagnosis (1) Fracture of distal end of fibula: Status: Acute Code(s): S82.839A - Other fracture of upper and lower end of unspecified fibula, initial encounter for closed fracture Plan #Debility due to RLE distal fibular fracture * PT/OT on board. Fall precautions * podiatry to follow up on outpatient basis. * PO tylenol and pO oxycodone prn for pain * #orthostatic hypotension: lasix on hold. hydrated with IVF. NOw on midodrine #Type 2 diabetes mellitus * On insulin sliding scale. Accu-Cheks ACHS. Metformin on hold #Probable UTI * Urinalysis on admission showed 3+ bacteria. She also had 50-100 WBC * it does not seem she was initiated on treatment for this * will get urine cultures and place on IV ceftriaxone * Urine cultures growing E. coli. Will stop IV ceftriaxone and switch to p.o. cefdinir. * #Urinary retention * Pierce catheter was removed and patient had a successful voiding trial. * will monitor * #Chronic back pain: * on oxycodone prn. 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 Benign. Will monitor. #Anxiety and depression: on sertraline and bupropion #HFpEF: has known EF of 70% from echo in 2020. Not in exacerbation. On on lasix which is now held due to orthostatic hypotension FRANSISCA: Resolved. #GERD: On PPI #Rheumatoid arthritis: On hydroxychloroquine DVT prophylaxis: Lovenox Disposition: * Awaiting placement. Insurance denied rehab placement so patient has filed an appeal. Medications at Discharge Home Medications bupropion HCl 150 mg 24 hr tablet, extended release 150 mg PO DAILY depression 04/17/19 gabapentin 300 mg capsule 300 mg PO BID nerve pain 04/17/19 hydroxychloroquine 200 mg tablet 200 mg PO DAILY arthritis 04/17/19 metformin 500 mg tablet,extended release 24 hr 500 mg PO BID dm 04/17/19 omeprazole 40 mg capsule,delayed release 40 mg PO DAILY gerd 04/17/19 pravastatin 20 mg tablet 20 mg PO QHS cholesterol 04/17/19 sucralfate 1 gram tablet 1 g PO TID upset stomach 06/01/20 cholecalciferol (vitamin D3) 1,250 mcg (50,000 unit) capsule 1,250 mcg PO QWEEK 05/06/24 dulaglutide 3 mg/0.5 mL subcutaneous pen injector (Trulicity) 3 mg subcut QWEEK 05/06/24 empagliflozin 10 mg tablet (Jardiance) 10 mg PO DAILY 05/06/24 gabapentin 300 mg capsule 600 mg PO QHS 05/06/24 hydroxyzine HCl 25 mg tablet 25 mg PO TID PRN PRN anxiety 05/06/24 potassium chloride 10 mEq tablet,extended release 10 meq PO DAILY 05/06/24 sertraline 25 mg tablet 12.5 mg PO DAILY 05/06/24 midodrine 5 mg tablet 10 mg (2 x 5 mg) PO TIDCM #90 tabs 05/15/24 oxycodone 5 mg tablet 5 mg PO Q6H PRN pain 3 days #12 tabs 05/15/24 Hospital Course Operations None Procedures None Summary of Care Provided Minutes Spent on Discharge: 42 Hospital Course: Patient is a 69-year-old female with past medical history as outlined was admitted through the ED on 05/06/2024 with complaint of presyncope. She had been having mechanical falls at home and also had right ankle pain. She had been having difficulty ambulating. She says she had not been checking her blood pressure at home but admitted to feeling dizzy and lightheaded at home for the past few months prior to admission. She sustained a fall on the day of admission to that she did not appear to have really passed out. No admission in the ED her blood pressure was on the lower side of normal and creatinine was elevated at 2.03. X-ray of the right ankle showed a minimally displaced intra-articular fracture of the right distal fibula along with an ankle joint effusion. The leg was placed in a podiatry boot and she was admitted to be managed for debility and weakness due to mechanical fall with resultant right distal fibula fracture. Orthostatics were checked and were positive. Her furosemide was discontinued and she was hydrated with IV fluids. PT OT was consulted. Patient had opted for placement in acute rehab facility. [id number] was attempted but physician was unsuccessful. Patient therefore appealed her denial but denial was upheld by the insurance company. Patient was therefore discharged home on 05/15/2024. Of note hospital course was complicated by UTI for which she received 5 days of IV ceftriaxone. Urine cultures grew E. coli. As stated she completed 5 days of antibio (more content not included)...[facility]01-30-2025 Evaluation note* Diagnosis Onset Date Resolution Status Admit Date Near syncope resolved April 4:43pm Syncope resolved May 07, 2024 4:43pm Fracture of distal end of fibula inactive May 07 4:43pm [facility] Work Phone: [phone] 596-567601-03-2025 Telephone encounter Note* Telephone Encounter - Tyler Dixon APRN.CNP - 04/10/2024 9:37 AM EST The following approved medication requests have been transmitted electronically. Requested Prescriptions Signed Prescriptions Disp Refills hydrOXYchloroQUINE (PLAQUENIL) 200 mg tablet 90 tablet 0 Sig: Take 1 tablet by mouth once daily Authorizing Provider: TYLER DIXON APRN.CNP [facility]01-03-2025 Miscellaneous Notes* Telephone Encounter - Tyler Dixon APRN.CNP - 04/10/2024 9:37 AM EST The following approved medication requests have been transmitted electronically. Requested Prescriptions Signed Prescriptions Disp Refills hydrOXYchloroQUINE (PLAQUENIL) 200 mg tablet 90 tablet 0 Sig: Take 1 tablet by mouth once daily Authorizing Provider: TYLER DIXON APRN.CNP * Telephone Encounter - Marisela Cox MA - 04/10/2024 8:38 AM EST Patient has been identified by name and date of : Yes RX INSTRUCTIONS: Patient aware RX will be sent to pharmacy. No need to notify patient. LAST APPOINTMENT: Visit date not found UPCOMING APPOINTMENT: Visit date not found LABS: Hemoglobin (g/dL) Date Value 03/17/2024 13.4 05/15/2021 11.1 Hematocrit (%) Date Value 03/17/2024 44.0 05/15/2021 37.7 WBC (k/uL) Date Value 03/17/2024 10.70 05/15/2021 11.79 Platelet Count (k/uL) Date Value 03/17/2024 290 05/15/2021 317 AST Date Value Ref Range Status 01/21/2024 21 13 - 35 U/L Final ALT Date Value Ref Range Status 01/21/2024 20 7 - 38 U/L Final Creatinine Date Value Ref Range Status 01/21/2024 1.42 (H) 0.58 - 0.96 mg/dL Final No results found for: URICACID documented [facility]25 Telephone encounter Note * Telephone Encounter - Marisela Cox MA - 04/10/2024 8:38 AM EST Patient has been identified by name and date of : Yes RX INSTRUCTIONS: Patient aware RX will be sent to pharmacy. No need to notify patient. LAST APPOINTMENT: Visit date not found UPCOMING APPOINTMENT: Visit date not found LABS: Hemoglobin (g/dL) Date Value 03/17/2024 13.4 05/15/2021 11.1 Hematocrit (%) Date Value 03/17/2024 44.0 05/15/2021 37.7 WBC (k/uL) Date Value 03/17/2024 10.70 05/15/2021 11.79 Platelet Count (k/uL) Date Value 03/17/2024 290 05/15/2021 317 AST Date Value Ref Range Status 01/21/2024 21 13 - 35 U/L Final ALT Date Value Ref Range Status 01/21/2024 20 7 - 38 U/L Final Creatinine Date Value Ref Range Status 01/21/2024 1.42 (H) 0.58 - 0.96 mg/dL Final No results found for: URICACID [facility]10-16-2024 Telephone encounter Note* Telephone Encounter - Lizzie Weinstein MA - 01/22/2024 8:49 AM EDT No answer. verified. Left detailed message with results. Advised her I'd send results to pcp. Advised her to call back with any questions or concerns. Lizzie Weinstein MA [facility]10-16-2024 Miscellaneous Notes* Telephone Encounter - Lizzie Weinstein MA - 01/22/2024 8:49 AM EDT No answer. VM verified. Left detailed message with results. Advised her I'd send results to pcp. Advised her to call back with any questions or concerns. Lizzie Weinstein MA * Telephone Encounter - Jaki Verdugo MD - 01/22/2024 8:05 AM EDT Had labs drawn by Francesco. Sugars stable but slightly high. Blood counts and iron are ok. It is listed that she has a new pcp? If so, can we forward the results on to them. [facility] Telephone encounter Note * Telephone Encounter - Jaki Verdugo MD - 01/22/2024 8:05 AM EDT Had labs drawn by Francesco. Sugars stable but slightly high. Blood counts and iron are ok. It is listed that she has a new pcp? If so, can we forward the results on to them. [facility]10-15-2024 History of Present illness Narrative* Tyler Dixon, CHLOE.RADIOLOGY CLERK - 01/21/2024 1:30 PM EDT HPI: To review, Corinna Carr is a 68 year old female - In , diagnosed [...] HISTORY Diagnosis Date Aspiration pneumonia (HCC) 04/2019 [facility] DDD (degenerative disc disease) Depression Diabetes mellitus without mention of complication Fibromyalgia Hyperlipidemia Iron deficiency anemia, unspecified Dr Duong Iron malabsorption 10/23/2022 Lupus (HCC) Obesity Vitamin D deficiency 2012 PAST SURGICAL HISTORY Procedure Laterality Date ARTHRP KNE CONDYLE&PLATU MEDIAL&LAT COMPARTMENTS Left 02/25/[address] CARDIAC CATH 2007 no stenosis minimal plaque [...] 01/2014 ALLERGIES No Known Allergies INTERVAL HISTORY She is here for follow up. ADRIANA was in 05/2022. She is doing well overall. She states lupus has been stable. She takes tramadol for pain. Sites of pain: low back, pain rated 5/10 Joint swelling: none EMS: yes to back, lasting 15-20 minutes No recent infections. Tolerating meds. REVIEW OF SYSTEMS GENERAL: No fevers HEENT: +headaches RESPIRATORY: Negative for cough, hemoptysis, wheezing, or shortness of breath CARDIOVASCULAR: Negative for chest pain or palpitations GI: + nausea, no vomiting, + diarrhea : No history of dysuria SKIN: Negative for lesions, rash No gross hematuria or blood in stool No mouth or nasal sores +hair loss +fatigue Photosensitivity- eyes are sensitive, erythema to face Current Outpatient Medications Medication Sig hydrOXYchloroQUINE (PLAQUENIL) 200 mg tablet Take 1 tablet by mouth once daily sucralfate (CARAFATE) 1 gram tablet Take 1 tablet by mouth three times a day before meals. omeprazole (PRILOSEC) 40 mg capsule Take 1 capsule by mouth once daily. albuterol HFA (PROVENTIL HFA, VENTOLIN HFA) 90 mcg/actuation inhaler Inhale 2 Puffs as instructed every 4 hours as needed for wheezing/shortness of breath. furosemide (LASIX) 20 mg tablet Take 1 tablet by mouth two times a day. Patient may adjust from baseline 40 mg daily up to 40 mg twice daily based on weight gain greater than 3 pounds plus either increased shortness of breath or increased swelling. cholecalciferol, Vitamin D3, (VITAMIN D3) 1,250 mcg (50,000 unit) cap capsule Take 1 capsule by mouth one time a week. metFORMIN ER (GLUCOPHAGE XR) 750 mg 24 hr tablet Take 1 tablet by mouth daily with breakfast. pravastatin (PRAVACHOL) 20 mg tablet Take 1 tablet by mouth daily at bedtime. dulaglutide (TRULICITY) 3 mg/0.5 mL pen injector Inject 3 mg subcutaneously one time a week. empagliflozin (JARDIANCE) 10 mg tablet Take 1 tablet by mouth once daily. Take 1 tablet once daily in the morning blood sugar diagnostic (BLOOD GLUCOSE TEST) test [...] No Family History SOCIAL HISTORY: Lives in [place] Tobacco use: None Alcohol use: None PHYSICAL EXAMINATION: BP 109/73 Pulse 67 Temp 36.6 C (97.9 F) (Oral) Ht 163.8 cm (5' 4.5) Wt 92.5 kg (204 lb) LMP 12/07/2007 BMI 34.48 kg/m General appearance: Well appearing, alert, in no acute distress, well-hydrated, well nourished. Skin: +dry scaly rash to L flank Eyes: Anicteric sclera. Pupils are equally round and reactive to light. Oropharynx: Lips, mucosa, and tongue normal, teeth and gums normal, oropharynx normal Neck: Supple, no adenopathy Lungs: Lungs clear to auscultation. No wheezing, rhonchi, rales. Heart: RRR without murmur Abdomen: Normal abdominal exam, Abdomen soft, non-tender. Bowel sounds normal. No masses, organomegaly Neuro: Gait normal. Sensation grossly intact. JOINTS: TENDER JOINTS: L shoulder, b/l SI joints SWOLLEN JOINTS: none +tenderness to lumbar spine Labs reviewed and discussed with the patient: Latest Ref Rng 12/04/2023 WBC 3.70 - 11.00 k/uL 10.71 RBC 3.90 - 5.20 m/uL 4.65 Hemoglobin 11.5 - 15.5 g/dL 12.8 Hematocrit 36.0 - 46.0 % 40.9 MCV 80.0 - 100.0 fL 88.0 MCH 26.0 - 34.0 pg 27.5 MCHC 30.5 - 36.0 g/dL 31.3 RDW-CV 11.5 - 15.0 % 15.4 (H) Platelet Count 150 - 400 k/uL 255 MPV 9.0 - 12.7 fL 10.6 Neut% % 72.3 Abs Neut (ANC) 1.45 - 7.50 k/uL 7.75 (H) Lymph% % 17.8 Abs Lymph 1.00 - 4.00 k/uL 1.91 Barren% % 6.1 Abs Barren <0.87 k/uL 0.65 Eosin% % 3.0 Abs Eosin <0.46 k/uL 0.32 Baso% % 0.5 Abs Baso <0.11 k/uL 0.05 Immature Gran % % 0.3 IMMATURE GRANS (ABS) <0.10 k/uL 0.03 NRBC /100 WBC 0.0 Absolute nRBC <0.01 k/uL <0.01 DTYPE Auto Iron 41 - 186 ug/dL 54 TIBC 232 - 386 ug/dL 324 Transferrin Saturation 15.0 - 57.0 % 16.7 Ferritin 14.7 - 205.1 ng/mL 199.0 Latest Ref Rn 08/19/2023 Protein, Total 6.3 - 8.0 g/dL 6.6 Albumin 3.9 - 4.9 g/dL 3.8 (L) Calcium 8.5 - 10.2 mg/dL 9.4 Bilirubin, Total 0.2 - 1.3 mg/dL 0.3 Alkaline Phosphatase 34 - 123 U/L 162 (H) AST 13 - 35 U/L 21 ALT 7 - 38 U/L 23 Glucose 74 - 99 mg/dL 158 (H) BUN 7 - 21 mg/dL 20 Creatinine 0.58 - 0.96 mg/dL 1.38 (H) Sodium 136 - 144 mmol/L 140 Potassium 3.7 - 5.1 mmol/L 4.8 Chloride 97 - 105 mmol/L 106 (H) CO2 22 - 30 mmol/L 24 Anion Gap 9 - 18 mmol/L 10 eGFR >=60 mL/min/1.73m 42 (L) Latest Ref Rn 08/15/2022 Color Yellow Light Yellow Clarity Clear Clear Glucose, Urine Trace, Negative 4+ ! Bilirubin, Urine Negative Negative Ketones, Urine Trace, Negative Negative Specific [place], Ur 1.005 - 1.030 1.015 Hemoglobin/Blood,Ur Negative, Trace Negative pH, Urine 5.0 - 8.0 6.0 Protein, Urine Trace, Negative Trace Urobilinogen Negative Negative Nitrites Negative 2+ ! Leukest Negative, 25 Eric/uL 500 Eric/uL ! Protein, Urine Random 0 - 20 mg/dL 24 (H) Creatinine, Ur Random (UCRR) 20.0 - 300.0 mg/dL 68.5 Protein/Creat Ratio <0.15 mg/mg 0.35 (H) WSR 0 - 20 mm/hr 18 CRP <0.9 mg/dL 0.8 C3 86 - 166 mg/dL 126 C4 13 - 46 mg/dL 28 DNA Antibody <30 IU/mL 35.32 (H) Component Latest Ref Rng & Units 05/18/2022 [...] Abs Lymph 1.00 - 4.00 k/uL 2.26 Barren% % 5.2 Abs Barren <0.87 k/uL 0.61 Eosin% % 0.0 Abs [...] Negative Negative Ketones, Urine Negative Negative Specific [place], Ur 1.005 - 1.030 1.011 Hemoglobin/Blood,Ur Negative Negative pH, Urine 5.0 - 8.0 6.0 Protein, Urine Negative Negative Urobilinogen Negative E.U./dL Negative Nitrites Negative Positive (A) Leukest Negative 2+ (A) Comment SEE COMMENT WBC, Urine 0 - 5 /HPF 6-10 (A) RBC, Urine 0 - 3 /HPF 0-3 Cast 0 /LPF SEE COMMENT (A) Epithelial Cells /HPF SEE COMMENT Urine Barbara Comment SEE COMMENT Creatinine 0.58 - 0.96 [...] Units 09/25/2012 Sm Antibody <1.0 AI <0.2 PHOTOGRAPHY AND PRINTS CURATOR Antibody <1.0 AI <0.2 SSA Antibody <1.0 AI <0.2 SSB Antibody <1.0 AI <0.2 Centromere Ab <1.0 AI <0.2 Scleroderma Ab, IgG <1.0 AI <0.2 Rupa 1 Antibody <1.0 AI <0.2 Ribosomal PHOTOGRAPHY AND PRINTS CURATOR <1.0 AI <0.2 Chromatin Antibody <1.0 AI [...] eyes/mouth with +NAIF 170 and +SSA 158. With current rash, but otherwise stable on HCQ. - Continue HCQ 200mg/day along with routine eye exams to monitor for potential retinal toxicity, last normal in 04/2023. She was reminded to schedule another exam for next year. -r/b/a of med discussed - Check labs. Notify of results via Mynglet -she declines consult to dermatology for current rash 2. Osteoarthritis: L knee OA s/p L [...] for routine health maintenance and malignancy screening Follow-up in 5 months or sooner if needed. Patient was instructed to call if any questions or concerns. Thank you for allowing me to participate in the care of your patient. Tyler Dixon APRN.TODD documented in this [facility]24 NoteHNO ID: [id number] Author: TYLER DIXON APRN.TODD Service: ? Author Type: Nurse Practitioner Type: Progress Notes Filed: 01/21/2024 13:42 Note Text: HPI: To review, Corinna Carr is a 68 year old female - In ', diagnosed with SLE (generalized pain, hair loss, [...] HISTORY Diagnosis Date Aspiration pneumonia (HCC) 04/2019 [facility] DDD (degenerative disc disease) Depression Diabetes mellitus without mention of complication Fibromyalgia Hyperlipidemia Iron deficiency anemia, unspecified Dr Duong Iron malabsorption 10/23/2022 Lupus (HCC) Obesity Vitamin D deficiency 2012 PAST SURGICAL HISTORY Procedure Laterality Date ARTHRP KNE CONDYLEANDPLATU MEDIALANDLAT COMPARTMENTS Left 02/25/[address] CARDIAC CATH 2007 no stenosis minimal plaque [...] 01/2014 ALLERGIES No Known Allergies INTERVAL HISTORY She is here for follow up. ADRIANA was in 05/2022. She is doing well overall. She states lupus has been stable. She takes tramadol for pain. Sites of pain: low back, pain rated 5/10 Joint swelling: none EMS: yes to back, lasting 15-20 minutes No recent infections. Tolerating meds. REVIEW OF SYSTEMS GENERAL: No fevers HEENT: +headaches RESPIRATORY: Negative for cough, hemoptysis, wheezing, or shortness of breath CARDIOVASCULAR: Negative for chest pain or palpitations GI: + nausea, no vomiting, + diarrhea : No history of dysuria SKIN: Negative for lesions, rash No gross hematuria or blood in stool No mouth or nasal sores +hair loss +fatigue Photosensitivity- eyes are sensitive, erythema to face Current Outpatient Medications Medication Sig hydrOXYchloroQUINE (PLAQUENIL) 200 mg tablet Take 1 tablet by mouth once daily sucralfate (CARAFATE) 1 gram tablet Take 1 tablet by mouth three times a day before meals. omeprazole (PRILOSEC) 40 mg capsule Take 1 capsule by mouth once daily. albuterol HFA (PROVENTIL HFA, VENTOLIN HFA) 90 mcg/actuation inhaler Inhale 2 Puffs as instructed every 4 hours as needed for wheezing/shortness of breath. furosemide (LASIX) 20 mg tablet Take 1 tablet by mouth two times a day. Patient may adjust from baseline 40 mg daily up to 40 mg twice daily based on weight gain greater than 3 pounds plus either increased shortness of breath or increased swelling. cholecalciferol, Vitamin D3, (VITAMIN D3) 1,250 mcg (50,000 unit) cap capsule Take 1 capsule by mouth one time a week. metFORMIN ER (GLUCOPHAGE XR) 750 mg 24 hr tablet Take 1 tablet by mouth daily with breakfast. pravastatin (PRAVACHOL) 20 mg tablet Take 1 tablet by mouth daily at bedtime. dulaglutide (TRULICITY) 3 mg/0.5 mL pen injector Inject 3 mg subcutaneously one time a week. empagliflozin (JARDIANCE) 10 mg tablet Take 1 tablet by mouth once daily. Take 1 tablet once daily in the morning blood sugar diagnostic (BLOOD GLUCOSE TEST) test [...] Diabetes Maternal Grandmother Heart Failure Maternal Grandfather Thyr (more content not included)...[facility]10-11-2024 Instructions* Patient Instructions* Tyler Dixon APRN.TODD - 01/17/2024 7:34 AM EDT Please schedule Plaquenil eye exam for 04/2024 documented in this encounterSouthern [facility]09-[facility]24 Telephone encounter Note * Telephone Encounter - Coretta Barros LPN - 12/10/2023 12:06 PM EDT 3 month lab appointment should be at end of February, not January. She last had labs 12/04/2023. Please reschedule with patient. Coretta Barros LPN [facility]09-03-2024 Miscellaneous Notes* Telephone Encounter - Coretta Barros LPN - 12/10/2023 12:06 PM EDT 3 month lab appointment should be at end of February, not January. She last had labs 12/04/2023. Please reschedule with patient. Coretta Barros LPN * Telephone Encounter - Elisa Jung - 12/06/2023 12:04 PM EDT Pt called back. Given message below and scheduled 3 mo labs and 6 mo labs + OV * Telephone Encounter - Alannah Bella - 12/05/2023 2:24 PM EDT Left message for patient to return call. When she calls, please relay message below and schedule accordingly. Alannah Bella * Telephone Encounter - Saige Wallis APRN.CNP - 12/05/2023 10:11 AM EDT Please inform pt. that her iron studies look good. CBC/iron studies in 3 months. OV/CBC/iron studies in 6 months. Thank you. Saige Wallis APRN.CNP documented in this encounter[facility]08-30-2024 Telephone encounter Note * Telephone Encounter - Elisa Jung - 12/06/2023 12:04 PM EDT Pt called back. Given message below and scheduled 3 mo labs and 6 mo labs + OV [facility] Work Phone: 1(991) 489-678508-29-2024 Telephone encounter Note* Telephone Encounter - Alannah Bella - 12/05/2023 2:24 PM EDT Left message for patient to return call. When she calls, please relay message below and schedule accordingly. Alannah Bella [facility]08-29-2024 Telephone encounter Note* Telephone Encounter - Saige Wallis APRN.CNP - 12/05/2023 10:11 AM EDT Please inform pt. that her iron studies look good. CBC/iron studies in 3 months. OV/CBC/iron studies in 6 months. Thank you. Saige Wallis APRN.CNP [facility]08-28-2024 History of Present illness Narrative* Saige Wallis APRN.CNP - 12/04/2023 1:14 PM EDT Chief Complaint Patient presents with: Established Patient HPI: Corinna Carr is a 68 year old female who presents here today [...] erythema in the body and antrum of thestomach without ulcerations. Biopsy of duodenal mucosa showed [...] sucrose November 2022. No new concerns today. Appetite:Ok. Wt. stable. Energy level:I'm just fatigued. Denies fevers or recent illness. Resp:denies cough or sob Cardiac:denies chest pain/palpitations GI:denies abd pain, n/v, moving bowels regularly :denies dysuria/hematuria Extrem:chronic back pain-followed by [facility]PM-[facility] Neuro:+neuropathy to feet-stable Skin:denies rashes/lesions Heme:denies bleeding The ROS is otherwise negative. Past medical history, appointments, medications, allergies reviewed. No changes. EXAM: BP 126/77 Pulse 96 Temp 36.3 C (97.4 F) (Temporal) Wt 94.4 kg (208 lb 1.8 oz) LMP 12/07/2007 SpO2 99% BMI 35.10 kg/m APPEARANCE Well appearing, alert, in no [...] normal, no suspicious rashes or lesions LABS: Latest Ref Rng 09/10/2023 10/23/2023 12/04/2023 WBC 3.70 - 11.00 k/uL 10.39 9.53 10.71 RBC 3.90 - 5.20 m/uL 4.79 4.67 4.65 Hemoglobin 11.5 - 15.5 g/dL 13.2 12.9 12.8 Hematocrit 36.0 - 46.0 % 43.5 43.1 40.9 MCV 80.0 - 100.0 fL 90.8 92.3 88.0 MCH 26.0 - 34.0 pg 27.6 27.6 27.5 MCHC 30.5 - 36.0 g/dL 30.3 (L) 29.9 (L) 31.3 RDW-CV 11.5 - 15.0 % 14.5 14.8 15.4 (H) Platelet Count 150 - 400 k/uL 234 259 255 MPV 9.0 - 12.7 fL 10.5 9.9 10.6 Neut% % 62.6 67.9 72.3 Abs Neut (ANC) 1.45 - 7.50 k/uL 6.51 6.47 7.75 (H) Lymph% % 26.2 21.2 17.8 Abs Lymph 1.00 - 4.00 k/uL 2.72 2.02 1.91 Barren% % 4.8 5.4 6.1 Abs Barren <0.87 k/uL 0.50 0.51 0.65 Eosin% % 4.4 4.0 3.0 Abs Eosin <0.46 k/uL 0.46 (H) 0.38 0.32 Baso% % 0.7 0.5 0.5 Abs Baso <0.11 k/uL 0.07 0.05 0.05 Immature Gran % % 1.3 1.0 0.3 IMMATURE GRANS (ABS) <0.10 k/uL 0.13 (H) 0.10 (H) 0.03 NRBC /100 WBC 0.0 0.0 0.0 Absolute nRBC <0.01 k/uL <0.01 <0.01 <0.01 DTYPE Auto Auto Auto Iron studies: Pending ASSESSMENT/PLAN: 1. Other iron deficiency anemia - ICD9: 280.8, ICD10: D50.[address] Duong's previous note 06/20/20: Assessment: -The patient is a 65-year-old female with a history of iron deficiency anemia. She has been throughmultiple endoscopies and capsule endoscopy with no particular evidence of significant GI bleed. Shehas received multiple parenteral courses of iron over the last 10 years. Most recently early June of this year. -Her ferritin was improved when last checked. She was since hospitalized for congestive heart failure. She has lost 21 pounds since of hospitalization through diuresis. -Still has mild anemia. -Incidentally, reviewed old CT images from [facility]. The subcutaneous mass in theleft abdomen is fat necrosis. Calcified lesion that [...] 2022. - Reviewed CBC with pt. - Iron studies pending. - Follow up pending today's iron studies. - Pt. aware to call office with any questions/concerns. The patient indicates understanding of these issues and agrees with the plan. All documentation from previous visit of 06/19/23-Dr. Duong/myself was copied and pasted, documentation has been reviewed and edited as necessary for today's visit. Saige Wallis APRN.TODD documented in this encounterSouthern [facility]08-12-2024 Telephone encounter Note * Telephone Encounter - Su Martinez LPN - 11/18/2023 8:27 AM EDT Prescription Refill Information The patient has been identified by name and date of : Yes Caregiver verified no other encounters exist for this prescription request: Yes Caregiver confirmed with patient/requestor that no other refills are due, in the near future, with this provider at this time: Yes The last office visit in the department: 08/01/23 Does the patient have a future office visit with this provider/department: Yes 02/03/24 with Francesco? Medicare Wellness Requested Prescriptions Pending Prescriptions Disp Refills sucralfate (CARAFATE) 1 gram tablet 90 tablet 5 Sig: Take 1 tablet by mouth three times a day before meals. Su Martinez LPN November 18, 2023 8:29 AM [facility]-12[facility] Miscellaneous Notes* Telephone Encounter - Su Martinez LPN - 11/18/2023 8:27 AM EDT Prescription Refill Information The patient has been identified by name and date of : Yes Caregiver verified no other encounters exist for this prescription request: Yes Caregiver confirmed with patient/requestor that no other refills are due, in the near future, with this provider at this time: Yes The last office visit in the department: 08/01/23 Does the patient have a future office visit with this provider/department: Yes 02/03/24 with Francesco? Medicare Wellness Requested Prescriptions Pending Prescriptions Disp Refills sucralfate (CARAFATE) 1 gram tablet 90 tablet 5 Sig: Take 1 tablet by mouth three times a day before meals. Su Martinez LPN November 18, 2023 8:29 AM documented in this encounterSouthern [facility]07-17-2024 Telephone encounter Note * Telephone Encounter - Su Martinez LPN - 10/23/2023 2:55 PM EDT Prescription Refill Information The patient has been identified by name and date of : Yes Caregiver verified no other encounters exist for this prescription request: Yes Caregiver confirmed with patient/requestor that no other refills are due, in the near future, with this provider at this time: Yes The last office visit in the department: 08/01/23 Does the patient have a future office visit with this provider/department: Yes Requested Prescriptions Pending Prescriptions Disp Refills omeprazole (PRILOSEC) 40 mg capsule 90 capsule 0 Sig: Take 1 capsule by mouth once daily. Su Martinez LPN October 23, 2023 2:55 PM [facility]-17-[facility] Miscellaneous Notes* Telephone Encounter - Su Martinez LPN - 10/23/2023 2:55 PM EDT Prescription Refill Information The patient has been identified by name and date of : Yes Caregiver verified no other encounters exist for this prescription request: Yes Caregiver confirmed with patient/requestor that no other refills are due, in the near future, with this provider at this time: Yes The last office visit in the department: 08/01/23 Does the patient have a future office visit with this provider/department: Yes Requested Prescriptions Pending Prescriptions Disp Refills omeprazole (PRILOSEC) 40 mg capsule 90 capsule 0 Sig: Take 1 capsule by mouth once daily. Su Martinez LPN October 23, 2023 2:55 PM documented in this encounterSouthern [facility]07-17-2024 Telephone encounter Note * Telephone Encounter - Concepción Call - 10/23/2023 9:35 AM EDT Relayed message to patient. She states she will do a walk in for labs [facility] Work Phone: 1(425) 449-565407-17-2024 Miscellaneous Notes* Telephone Encounter - Concepción Call - 10/23/2023 9:35 AM EDT Relayed message to patient. She states she will do a walk in for labs * Telephone Encounter - Alannah Bella - 10/17/2023 11:42 AM EDT Left message for patient to return call. When she calls, please advise that Saige ordered labs and offer to schedule. Alannah Bella * Telephone Encounter - Saige Wallis APRN.CNP - 10/17/2023 11:29 AM EDT Orders in. Saige Wallis APRN.TODD * Telephone Encounter - Alannah Bella - 10/17/2023 11:15 AM EDT Patient called stating she is very tired, craving ice again. She was advised to call in if she feltfunky and that maybe Saige would order lab work to see if she needs iron or something else. Please advise. Alannah Bella documented in this encounter[facility]07-11-2024 Telephone encounter Note * Telephone Encounter - Alannah Bella - 10/17/2023 11:42 AM EDT Left message for patient to return call. When she calls, please advise that Saige ordered labs and offer to schedule. Alannah Bella [facility]07-11-2024 Telephone encounter Note* Telephone Encounter - Saige Wallis APRN.CNP - 10/17/2023 11:29 AM EDT Orders in. Saige Wallis APRN.TODD [facility]07-11-2024 Telephone encounter Note* Telephone Encounter - Alannah Bella - 10/17/2023 11:15 AM EDT Patient called stating she is very tired, craving ice again. She was advised to call in if she feltfunky and that maybe Saige would order lab work to see if she needs iron or something else. Please advise. Alannah Bella [facility]-17-2024 History of Present illness Narrative* Kishan Bucio MD - 09/23/2023 7:34 PM EDT Patient presents with: Cough: X2 weeks HPI: Coughing for 2 weeks. Positive symptoms: Cough, slight Sore throat, Nasal Congestion, Headache, ear fullness, passed out during coughing spell tonight (laid down on couch while talking on phone, maybe out 1 minute), Negative symptoms: Shortness of breath (except during coughing spells), Chest pain, Fever, OTC: DM cough syrup. Prescribed albuterol and prednisone here 09/17/2023. MEDICATIONS: Current Outpatient Medications Medication Sig predniSONE (DELTASONE) 10 mg tablet Take 4 tabs daily for 3 days, then 2 tabs daily for 3 days, then 1 tab daily for 3 days with food. albuterol HFA (PROVENTIL HFA, VENTOLIN HFA) 90 mcg/actuation inhaler Inhale 2 Puffs as instructed every 4 hours as needed for wheezing/shortness of breath. furosemide (LASIX) 20 mg tablet Take 1 tablet by mouth two times a day. Patient may adjust from baseline 40 mg daily up to 40 mg twice daily based on weight gain greater than 3 pounds plus either increased shortness of breath or increased swelling. cholecalciferol, Vitamin D3, (VITAMIN D3) 1,250 mcg (50,000 unit) cap capsule Take 1 capsule by mouth one time a week. metFORMIN ER (GLUCOPHAGE XR) 750 mg 24 hr tablet Take 1 tablet by mouth daily with breakfast. ferrous sulfate 325 mg (65 mg iron) tablet Take 1 tablet by mouth two times a day with meals. pravastatin (PRAVACHOL) 20 mg tablet Take 1 tablet by mouth daily at bedtime. dulaglutide (TRULICITY) 3 mg/0.5 mL pen injector Inject 3 mg subcutaneously one time a week. omeprazole (PRILOSEC) 40 mg capsule Take 1 capsule by mouth once daily. benzonatate (TESSALON PERLES) 100 mg capsule Take 2 capsules by mouth three times a day as needed. empagliflozin (JARDIANCE) 10 mg tablet Take 1 tablet by mouth once daily. Take 1 tablet once daily in the morning hydrOXYchloroQUINE (PLAQUENIL) 200 mg tablet Take 1 tablet by mouth once daily. sucralfate (CARAFATE) 1 gram tablet Take 1 tablet by mouth three times a day before meals. blood sugar diagnostic (BLOOD GLUCOSE TEST) test strip Test blood sugar(s) 3 times daily. Dx: Type 2 DM - Uncontrolled E11.65 Insulin: Yes blood sugar diagnostic (FREESTYLE LITE STRIPS) test strip Test blood sugar(s) 3 times daily. Dx: 250.02. Insulin: Yes gabapentin (NEURONTIN) 300 mg capsule Take 1 capsule by mouth three times daily. No current facility-administered medications for this visit. ALLERGIES: ALLERGIES No Known Allergies VITALS: BP 138/70 Pulse 60 Temp 36.9 C (98.4 F) Resp 16 Wt 96 kg (211 lb 10.3 oz) LMP 12/07/2007 SpO2 96% BMI 35.69 kg/m PHYSICAL EXAM: GEN: Pleasant, alert, frequent coughing HEENT: PERRL, EOMI, conjunctiva clear Ears: canals clear. TMs without erythema, bulge, or effusion Sinuses: non-tender frontal sinus, non-tender maxillary sinuses Throat: moist mucous membranes, no erythema, no exudate Neck: supple, no thyromegaly, no lymphadenopathy HEART: regular rate and rhythm, no murmurs LUNGS: clear to auscultation, no wheezes or crackles, no increased WOB; frequent non-productive stacked coughs Latest Ref Rng 08/29/2022 Hemoglobin A1C 4.3 - 5.6 % 6.1 (H) ASSESSMENT/PLAN: 1. Bronchitis - ICD9: 490, ICD10: J40 (primary diagnosis) Treat with cough suppression. Add tessalon and honey. Follow up with worsening cough, worsening shortness of breath, increasing chest pain, or late onsetfever. 2. Syncope, unspecified syncope type - ICD9: 780.2, ICD10: R55 Cough induced syncope. Follow up with PCP - ER if symptoms reoccur. Kishan Bucio MD documented [facility] Telephone encounter Note * Telephone Encounter - Kellen Kuhn LPN - 09/19/2023 12:06 PM EDT Unable to reach pt. Spoke with the pharmacy and medication below was picked up 09-16-23. Kellen Kuhn LPN [facility]06-13-[facility]24 Miscellaneous Notes* Telephone Encounter - Kellen Kuhn LPN - 09/19/2023 12:06 PM EDT Unable to reach pt. Spoke with the pharmacy and medication below was picked up 09-16-23. Kellen Kuhn LPN * Telephone Encounter - Lizzie Weinstein MA - 09/18/2023 1:36 PM EDT Placed call to patient with no answer. Left detailed message (VM verified) informing patient Metformin was sent to her [facility] pharmacy on file due to her A1c coming back at 7.1. advised her to call back and let us know she received the message. Lizzie Weinstein MA * Telephone Encounter - Su Martinez LPN - 09/12/2023 12:20 PM EDT Left message for patient to call office and speak with nurse. * Telephone Encounter - Veda Ambriz APRN.CNS - 09/12/2023 9:05 AM EDT Please let patient know that I saw her hemoglobin A1c at 7.1%. Not too bad but certainly slipping. I am going to add metformin ER, the extended release that minimizes chance of gastric or intestinal irritation. Take it once a day with her largest meal. She is also on empagliflozin which we could increase also. Metformin is the gold standard for diabetes control. It also can result in some mild weight loss. Ithought that was a good place to start for now. * Telephone Encounter - Kristal Jarrett MA - 09/10/2023 4:51 PM EDT Pt did labs today. Will wait for results Kristal Jarrett MA September 10, 2023 4:51 PM * Telephone Encounter - Kristal Jarrett MA - 09/03/2023 8:42 AM EDT Pt needs to get A1C first. Other medications will need prior auth and requires this to be completed. Once completed, we can ask provider to call rx in. Left detailed message on identifiable voicemail of this and also that any other will also be difficult to find as well. Kristal Jarrett MA * Telephone Encounter - Veda Ambriz APRN.CNS - 08/30/2023 4:34 PM EDT Ordering another medication is not going to help. What I am telling you is that Ozempic, Mounjaro, and Trulicity are the only 3 medications in this class. Ozempic and Mounjaro have an even less chance of being available and may cost a thousand dollars more. She needs to access her insurance to see which of these medications are covered. Each formulary has something different. Trulicity is the GLP-1 that is most affordable and available. * Telephone Encounter - Sara Serna RN - 08/30/2023 11:55 AM EDT Patient returned call and given message below. Patient states she will get the A1C completed soon. States she has called all local pharmacies and no one has Trulicity. States she is not going to call her insurance company to discuss what alternative medication may becovered. Pt asking provider order her an alternative medication to Trulicity, as soon as possible. Sara Serna RN * Telephone Encounter - Su Martinez LPN - 08/29/2023 3:20 PM EDT Left message for patient to call office and speak with a nurse. * Telephone Encounter - Veda Ambriz APRN.CNS - 08/29/2023 2:37 PM EDT Unfortunately, that is the problem with the GLP-1 class of medications. There are many people trying to get the medication that are not able to. It is being used for diabetes control and for weight loss. There is a national shortage and has been for at least 2 years. It is up to her to call around to find out where she can get that medication filled. We can send a prescription onto what ever pharmacy has it in stock but it is a huge problem. Sorry I do not have good news. Incidentally, we do not have a hemoglobin A1c on her for over a year therefore I cannot determine what other medication could be used. * Telephone Encounter - Fer Martinez LPN - 08/29/2023 1:33 PM EDT Patient calling none of the area pharmacies have any Trulicity in stock. She is due for her injection tomorrow. Patient asking what did you want here to do now? [email or web address] Please advise [facility] Telephone encounter Note * Telephone Encounter - Lizzie Weinstein MA - 09/18/2023 1:36 PM EDT Placed call to patient with no answer. Left detailed message (VM verified) informing patient Metformin was sent to her [facility] pharmacy on file due to her A1c coming back at 7.1. advised her to call back and let us know she received the message. Lizzie Weinstein MA [facility]06-11-[facility]24 Instructions* Patient Instructions* Harmony Spence APRN.RADIOLOGY CLERK - 09/17/2023 3:33 PM EDT ASSESSMENT/PLAN: 1. Acute cough - ICD9: 786.2, ICD10: R05.1 (primary diagnosis) - XR CHEST 2V FRONTAL/LAT RESULT: Lines, tubes, and devices: None. Lungs and pleura: No consolidation. No lung mass. No pleural effusion. No pneumothorax. Cardiomediastinal silhouette: Normal cardiomediastinal silhouette. Bones and soft tissues: Stable spinal cord stimulator leads. The spine shows degenerative changes. IMPRESSION: No acute radiographic abnormality. Hose Suspender Cutter: ARABELLA Transcribe Date/Time: Sep 17 2023 3:19P Dictated by : SULTANA SANDHU MD 2. Viral bronchitis - ICD9: 466.0, ICD10: J20.8 - PREDNISONE 10 MG TABLET - ALBUTEROL SULFATE HFA 90 MCG/ACTUATION AEROSOL INHALER - Follow-up with your PCP in 3-5 days if symptoms have not improved or sooner if symptoms worsen - Discussed red flags and need for immediate medical evaluation if any occur. - Discussed supportive care treatment with fluids, rest and analgesia. - Discussed expected course of illness Harmony Spence APRN.TODD ACUTE BRONCHITIS: You have acute bronchitis. This means the airway passages in your lungs are inflamed. Bronchitis may be caused by viruses or bacteria. Inhaling cigarette smoke will always make it worse. Exposure to irritating chemicals or second hand smoke as well as allergies can contribute to bronchitis. Repeat episodes of bronchitis may cause lifelong lung problems. Acute bronchitis is usually treated with rest, fluids, cough medicine, and possibly antibiotics or inhaled medicine to open up the small airways. It is very important that you avoid smoke and drink increased amounts of fluids. A cool air vaporizer can help thin bronchial secretions. This makes it easier to cough and clear your chest. If you are a cigarette smoker, consider using nicotine gum or skin patches to help you withdraw. Recovery from bronchitis is often slow, but you should start feeling better after 2-3 days of treatment. Please call your doctor or return here if you have any of the following symptoms: Increased fever, chills, or chest pain. Severe shortness of breath or bloody sputum. Do not improve after 3 days of proper treatment. documented in this encounterSouthern [facility]06-[facility]-2024 History of Present illness Narrative* Stephy Galindo RT(R) - 09/17/2023 3:20 PM EDT Radiology Service Progress Note PATIENT NAME: Corinna Carr DATE OF SERVICE: September 17, 2023 TIME: 3:10 PM PATIENT IDENTITY VERIFICATION COMPLETED USING TWO (2) IDENTIFIERS: Name and Date of confirmedby patient verbally. FALL SCREENING: Has the patient had 2 falls in the last year or 1 fall with injury or currently using an Ambulatory Assistive Device (Walker, Cane, Wheelchair, Crutches, etc.)? No PATIENT GENDER DATA: Female. status: : No status: NO. PATIENT RELEVANT IMPLANT DATA REVIEWED: Yes PATIENT PRESENTS WITH AN IMPLANTABLE OR ATTACHED MASTER GLAZIER: No RADIOLOGY DEPARTMENT: General X-ray: Exam(s) Completed: Chest X-Ray PERIPHERAL IV DATA: Not applicable SIGNED BY: Stephy Galindo RT(R) September 17, 2023 3:10 PM documented in this encounterSouthern [facility]06-11-2024 History of Present illness Narrative* Harmony Spence, CHLOE.RADIOLOGY CLERK - 09/17/2023 3:04 PM EDT Subjective Cough Associated symptoms include headaches, sore throat and shortness of breath. Pertinent negatives include no chest pain and no chills. Corinna Carr is a 68 year old female who presents with a cough x 1 week. Cough is productive. She feels short of breath after coughing. She denies fever. She has been taking off the shelf cough syrup from [employer] Complains of headache. Feels cough is getting worse. Review of Systems Constitutional: Negative for chills and fever. HENT: Positive for congestion and sore throat. Respiratory: Positive for cough, sputum production and shortness of breath. Cardiovascular: Negative for chest pain. Neurological: Positive for headaches. BP 96/58 Pulse 87 Temp 36.7 C (98.1 F) Resp 18 Wt 96 kg (211 lb 10.3 oz) LMP 12/07/2007 SpO2 94% BMI 35.69 kg/m PAST MEDICAL HISTORY Diagnosis Date Aspiration pneumonia (HCC) 04/2019 [facility] DDD (degenerative disc disease) Depression Diabetes mellitus without mention of complication Fibromyalgia Hyperlipidemia Iron deficiency anemia, unspecified Dr Duong Iron malabsorption 10/23/2022 Lupus (HCC) Obesity Vitamin D deficiency 2012 PAST SURGICAL HISTORY Procedure Laterality Date ARTHRP KNE CONDYLE&PLATU MEDIAL&LAT COMPARTMENTS Left 02/25/[address] CARDIAC CATH 2007 no stenosis minimal plaque [...] ALLERGIES Patient has no known allergies. MEDICATIONS furosemide (LASIX) 20 mg tablet Take 1 tablet by mouth two times a day. Patient may adjust from baseline 40 mg daily up to 40 mg twice daily based on weight gain greater than 3 pounds plus either increased shortness of breath or increased swelling. cholecalciferol, Vitamin D3, (VITAMIN D3) 1,250 mcg (50,000 unit) cap capsule Take 1 capsule by mouth one time a week. metFORMIN ER (GLUCOPHAGE XR) 750 mg 24 hr tablet Take 1 tablet by mouth daily with breakfast. ferrous sulfate 325 mg (65 mg iron) tablet Take 1 tablet by mouth two times a day with meals. pravastatin (PRAVACHOL) 20 mg tablet Take 1 tablet by mouth daily at bedtime. dulaglutide (TRULICITY) 3 mg/0.5 mL pen injector Inject 3 mg subcutaneously one time a week. omeprazole (PRILOSEC) 40 mg capsule Take 1 capsule by mouth once daily. empagliflozin (JARDIANCE) 10 mg tablet Take 1 tablet by mouth once daily. Take 1 tablet once daily in the morning hydrOXYchloroQUINE (PLAQUENIL) 200 mg tablet Take 1 tablet by mouth once daily. sucralfate (CARAFATE) 1 gram tablet Take 1 tablet by mouth three times a day before meals. blood sugar diagnostic (BLOOD GLUCOSE TEST) test strip Test blood sugar(s) 3 times daily. Dx: Type 2 DM - Uncontrolled E11.65 Insulin: Yes blood sugar diagnostic (FREESTYLE LITE STRIPS) test strip Test blood sugar(s) 3 times daily. Dx: 250.02. Insulin: Yes benzonatate (TESSALON PERLES) 100 mg capsule Take 2 capsules by mouth three times a day as needed. (Patient not taking: Reported on 08/01/2023) gabapentin (NEURONTIN) 300 mg capsule Take 1 capsule by mouth three times daily. FAMILY HISTORY Problem Relation Age of Onset [...] Smoking status: Former Packs/day: 1.00 Years: 0.50 Additional pack years: 0.00 Total pack years: 0.50 Types: Cigarettes Quit date: 04/05/1985 Years since quittin.4 Smokeless tobacco: Never Tobacco comments: Smoked for 6 months total. Vaping Use Vaping Use: Never used Substance Use Topics Alcohol use: No Drug use: No Objective Physical Exam Vitals and nursing note reviewed. Constitutional: Appearance: Normal appearance. Cardiovascular: Rate and Rhythm: Normal rate and regular rhythm. Heart sounds: Normal heart sounds. Pulmonary: Effort: Pulmonary effort is normal. No respiratory distress. Breath sounds: Wheezing present. No rales. Neurological: Mental Status: She is alert. ASSESSMENT/PLAN: 1. Acute cough - ICD9: 786.2, ICD10: R05.1 (primary diagnosis) - XR CHEST 2V FRONTAL/LAT RESULT: Lines, tubes, and devices: None. Lungs and pleura: No consolidation. No lung mass. No pleural effusion. No pneumothorax. Cardiomediastinal silhouette: Normal cardiomediastinal silhouette. Bones and soft tissues: Stable spinal cord stimulator leads. The spine shows degenerative changes. IMPRESSION: No acute radiographic abnormality. Hose Suspender Cutter: ARABELLA Transcribe Date/Time: Sep 17 2023 3:19P Dictated by : SULTANA SANDHU MD 2. Viral bronchitis - ICD9: 466.0, ICD10: J20.8 - PREDNISONE 10 MG TABLET - ALBUTEROL SULFATE HFA 90 MCG/ACTUATION AEROSOL INHALER - Follow-up with your PCP in 3-5 days if symptoms have not improved or sooner if symptoms worsen - Discussed red flags and need for immediate medical evaluation if any occur. - Discussed supportive care treatment with fluids, rest and analgesia. - Discussed expected course of illness Harmony Spence APRN.TODD documented in this encounter[facility]06-[facility] Telephone encounter Note * Telephone Encounter - Veda Ambrocio LPN - 09/16/2023 10:04 AM EDT Prescription Refill Information The patient has been identified by name and date of : Yes Caregiver verified no other encounters exist for this prescription request: Yes Caregiver confirmed with patient/requestor that no other refills are due, in the near future, with this provider at this time: Yes The last office visit in the department: 08/01/2023 Does the patient have a future office visit with this provider/department: Yes Requested Prescriptions Pending Prescriptions Disp Refills cholecalciferol, Vitamin D3, (VITAMIN D3) 1,250 mcg (50,000 unit) cap capsule 4 capsule 11 Sig: Take 1 capsule by mouth one time a week. Veda Ambrocio LPN September 16, 2023 10:05 AM [facility] Miscellaneous Notes* Telephone Encounter - Veda Ambrocio LPN - 09/16/2023 10:04 AM EDT Prescription Refill Information The patient has been identified by name and date of : Yes Caregiver verified no other encounters exist for this prescription request: Yes Caregiver confirmed with patient/requestor that no other refills are due, in the near future, with this provider at this time: Yes The last office visit in the department: 08/01/2023 Does the patient have a future office visit with this provider/department: Yes Requested Prescriptions Pending Prescriptions Disp Refills cholecalciferol, Vitamin D3, (VITAMIN D3) 1,250 mcg (50,000 unit) cap capsule 4 capsule 11 Sig: Take 1 capsule by mouth one time a week. Veda Ambrocio LPN September 16, 2023 10:05 AM documented in this encounterSouthern [facility]06-[facility]-2024 Telephone encounter Note * Telephone Encounter - Yoko Kern MA - 09/16/2023 9:04 AM EDT Prescription Refill Information The patient has been identified by name and date of : Yes Caregiver verified no other encounters exist for this prescription request: Yes Caregiver confirmed with patient/requestor that no other refills are due, in the near future, with this provider at this time: Yes The last office visit in the department: 08/01/23 Does the patient have a future office visit with this provider/department: Yes Requested Prescriptions Pending Prescriptions Disp Refills furosemide (LASIX) 20 mg tablet 90 tablet 1 Sig: Take 1 tablet by mouth two times a day. Patient may adjust from baseline 40 mg daily up to 40 mg twice daily based on weight gain greater than 3 pounds plus either increased shortness of breath or increased swelling. Yoko Kern MA September 16, 2023 9:04 AM [facility] Miscellaneous Notes* Telephone Encounter - Yoko Kern MA - 09/16/2023 9:04 AM EDT Prescription Refill Information The patient has been identified by name and date of : Yes Caregiver verified no other encounters exist for this prescription request: Yes Caregiver confirmed with patient/requestor that no other refills are due, in the near future, with this provider at this time: Yes The last office visit in the department: 08/01/23 Does the patient have a future office visit with this provider/department: Yes Requested Prescriptions Pending Prescriptions Disp Refills furosemide (LASIX) 20 mg tablet 90 tablet 1 Sig: Take 1 tablet by mouth two times a day. Patient may adjust from baseline 40 mg daily up to 40 mg twice daily based on weight gain greater than 3 pounds plus either increased shortness of breath or increased swelling. Yoko Kern MA September 16, 2023 9:04 AM documented in this encounterSouthern [facility]06-[facility] Telephone encounter Note * Telephone Encounter - Ailyn Carson PA-C - 09/12/2023 2:00 PM EDT Get Medical Advice on 09/11/23 COMPLETE BLOOD COUNT AND DIFFERENTIAL IRON AND TIBC FERRITIN The following approved medication requests have been transmitted electronically. Requested Prescriptions Signed Prescriptions Disp Refills ferrous sulfate 325 mg (65 mg iron) tablet 90 tablet 1 Sig: Take 1 tablet by mouth two times a day with meals. Ailyn Carson PA-C [facility]-06-[facility] Miscellaneous Notes* Telephone Encounter - Ailyn Carson PA-C - 09/12/2023 2:00 PM EDT Get Medical Advice on 09/11/23 COMPLETE BLOOD COUNT AND DIFFERENTIAL IRON AND TIBC FERRITIN The following approved medication requests have been transmitted electronically. Requested Prescriptions Signed Prescriptions Disp Refills ferrous sulfate 325 mg (65 mg iron) tablet 90 tablet 1 Sig: Take 1 tablet by mouth two times a day with meals. Ailyn Carson PA-C documented in this encounterSouthern [facility]06-[facility]-20[facility] Telephone encounter Note * Telephone Encounter - Su Martinez LPN - 09/12/2023 12:20 PM EDT Left message for patient to call office and speak with nurse. [facility] Telephone encounter Note* Telephone Encounter - Veda Ambriz APRN.CNS - 09/12/2023 9:05 AM EDT Please let patient know that I saw her hemoglobin A1c at 7.1%. Not too bad but certainly slipping. I am going to add metformin ER, the extended release that minimizes chance of gastric or intestinal irritation. Take it once a day with her largest meal. She is also on empagliflozin which we could increase also. Metformin is the gold standard for diabetes control. It also can result in some mild weight loss. Ithought that was a good place to start for now. [facility] Telephone encounter Note* Telephone Encounter - Kristal Jarrett MA - 09/10/2023 4:51 PM EDT Pt did labs today. Will wait for results Kristal Jarrett MA September 10, 2023 4:51 PM [facility] Telephone encounter Note* Telephone Encounter - Kristal Jarrett MA - 09/03/2023 8:42 AM EDT Pt needs to get A1C first. Other medications will need prior auth and requires this to be completed. Once completed, we can ask provider to call rx in. Left detailed message on identifiable voicemail of this and also that any other will also be difficult to find as well. Kristal Jarrett MA [facility] Telephone encounter Note* Telephone Encounter - Veda Ambriz APRN.GENNA - 08/30/2023 4:34 PM EDT Ordering another medication is not going to help. What I am telling you is that Ozempic, Mounjaro, and Trulicity are the only 3 medications in this class. Ozempic and Mounjaro have an even less chance of being available and may cost a thousand dollars more. She needs to access her insurance to see which of these medications are covered. Each formulary has something different. Trulicity is the GLP-1 that is most affordable and available. [facility] Telephone encounter Note* Telephone Encounter - Su Martinez LPN - 08/30/2023 12:08 PM EDT ADRIANA 08/01/23 Scheduled 02/03/24 [facility] Miscellaneous Notes* Telephone Encounter - Su Martinez LPN - 08/30/2023 12:08 PM EDT ADRIANA 08/01/23 Scheduled 02/03/24 documented in this encounterSouthern [facility]05-24-2024 Telephone encounter Note * Telephone Encounter - Sara Serna RN - 08/30/2023 11:55 AM EDT Patient returned call and given message below. Patient states she will get the A1C completed soon. States she has called all local pharmacies and no one has Trulicity. States she is not going to call her insurance company to discuss what alternative medication may becovered. Pt asking provider order her an alternative medication to Trulicity, as soon as possible. Sara Serna RN [facility] Telephone encounter Note* Telephone Encounter - Su Martinez LPN - 08/29/2023 3:20 PM EDT Left message for patient to call office and speak with a nurse. [facility] Telephone encounter Note* Telephone Encounter - Veda Ambriz APRN.CNS - 08/29/2023 2:37 PM EDT Unfortunately, that is the problem with the GLP-1 class of medications. There are many people trying to get the medication that are not able to. It is being used for diabetes control and for weight loss. There is a national shortage and has been for at least 2 years. It is up to her to call around to find out where she can get that medication filled. We can send a prescription onto what ever pharmacy has it in stock but it is a huge problem. Sorry I do not have good news. Incidentally, we do not have a hemoglobin A1c on her for over a year therefore I cannot determine what other medication could be used. [facility] Telephone encounter Note* Telephone Encounter - Fer Martinez LPN - 08/29/2023 1:33 PM EDT Patient calling none of the area pharmacies have any Trulicity in stock. She is due for her injection tomorrow. Patient asking what did you want here to do now? [facility]. Please advise [facility] Telephone encounter Note* Telephone Encounter - Veda Ambriz APRN.CNS - 08/23/2023 5:18 PM EDT The following approved medication requests have been transmitted electronically. Requested Prescriptions Pending Prescriptions Disp Refills dulaglutide (TRULICITY) 3 mg/0.5 mL pen injector 12 Each 1 Sig: Inject 3 mg subcutaneously one time a week. Veda Ambriz APRN.CNS [facility] Miscellaneous Notes* Telephone Encounter - Veda Ambriz APRN.CNS - 08/23/2023 5:18 PM EDT The following approved medication requests have been transmitted electronically. Requested Prescriptions Pending Prescriptions Disp Refills dulaglutide (TRULICITY) 3 mg/0.5 mL pen injector 12 Each 1 Sig: Inject 3 mg subcutaneously one time a week. Veda Ambriz APRN.HOTEL MAINTENANCE WORKER * Telephone Encounter - James López LPN - 08/23/2023 3:05 PM EDT Patient has been identified by name and date of : Yes Patient phones for refill(s): Requested Prescriptions Pending Prescriptions Disp Refills dulaglutide (TRULICITY) 3 mg/0.5 mL pen injector 12 Each 1 Sig: Inject 3 mg subcutaneously one time a week. Date of last office visit in primary care: 08/01/2023 Date of next office visit in primary care: 02/03/2024 Please advise. Thank you. James López LPN. documented in this encounterSouthern [facility]05-17-2024 Telephone encounter Note * Telephone Encounter - James López LPN - 08/23/2023 3:05 PM EDT Patient has been identified by name and date of : Yes Patient phones for refill(s): Requested Prescriptions Pending Prescriptions Disp Refills dulaglutide (TRULICITY) 3 mg/0.5 mL pen injector 12 Each 1 Sig: Inject 3 mg subcutaneously one time a week. Date of last office visit in primary care: 08/01/2023 Date of next office visit in primary care: 02/03/2024 Please advise. Thank you. James López LPN. [facility]05-17-2024 History of Present illness Narrative* Kenroy Espana, RT(R) - 08/23/2023 1:40 PM EDT Radiology Service Progress Note PATIENT NAME: Corinna Carr DATE OF SERVICE: August 23, 2023 TIME: 1:31 PM PATIENT IDENTITY VERIFICATION COMPLETED USING TWO (2) IDENTIFIERS: Name and Date of confirmedby patient verbally. FALL SCREENING: Has the patient had 2 falls in the last year or 1 fall with injury or currently using an Ambulatory Assistive Device (Walker, Cane, Wheelchair, Crutches, etc.)? No PATIENT GENDER DATA: Female. status: : No status: NO. PATIENT RELEVANT IMPLANT DATA REVIEWED: Not Applicable PATIENT PRESENTS WITH AN IMPLANTABLE OR ATTACHED MASTER GLAZIER: No RADIOLOGY DEPARTMENT: Bone Density PERIPHERAL IV DATA: Not applicable SIGNED BY: RT Anshu(R) August 23, 2023 1:31 PM documented [facility] History of Present illness Narrative* Ailyn Carson PA-C - 08/01/2023 10:40 AM EDT -+68 year old female with c/o here for medication follow up, hasn't been seen in a year Still has a bad knee: 2 cortisone shots. Seeing [facility] Discussed gel shots. Was in [facility] for URI, persistent cough, not bring stuff up like previous Hx of encephalopathy Chronic heart failure with preserved ejection fracture Diastolic dysfunction, left ventricle (primary encounter diagnosis) Mixed hyperlipidemia Cardiovascular interval hx: 07/27/2023 CXR: No acute radiographic abnormality. 09/22/2021 EKG: NSR, 1st degree AV block VR 63 06/04/2020 echo: EF 70%, small pericardial effusion 06/01/2020-06/03/2020 hospitalized acute SOB, 10lb weight gain dx acute on chronic CHF, FRANSISCA, RBBB 06/04/[address] [facility] [address]. Ocampo: LV size and thickness WNL, EF 65%, normal diastole, no regional wall motion defects. RV mildly dilated right ventricle, normal systolic function. Atria bilaterally normal. No significant valvular disease, no aortic valvular vegetation. No change from 04/18/2013. 10/24/2017 stress echo: ejection fraction 60%, negative for ischemia, no anginal symptoms, rare PACsand PVCs during dobutamine, normal response to blood [...] negative for ischemia, no anginal symptoms, rare PACsand PVCs during dobutamine, normal response to blood [...] and then pain, has to take breaks and sit to alleviate pain Smoking: No Following Low cholesterol, high fiber diet? Yes If on statin: muscle aches? No If on statin: GI sx or diarrhea? No Additional history none. Latest Ref Rn 06/19/2023 07/23/2023 WBC 3.70 - 11.00 k/uL 8.26 14.83 (H) RBC 3.90 - 5.20 m/uL 4.67 4.81 Hemoglobin 11.5 - 15.5 g/dL 12.8 13.5 Hematocrit 36.0 - 46.0 % 41.4 45.8 MCV 80.0 - 100.0 fL 88.7 95.2 MCH 26.0 - 34.0 pg 27.4 28.1 MCHC 30.5 - 36.0 g/dL 30.9 29.5 (L) RDW-CV 11.5 - 15.0 % 15.4 (H) 14.8 Platelet Count 150 - 400 k/uL 216 317 MPV 9.0 - 12.7 fL 10.6 11.0 Neut% % 66.2 70.1 Abs Neut (ANC) 1.45 - 7.50 k/uL 5.47 10.38 (H) Lymph% % 21.1 18.2 Abs Lymph 1.00 - 4.00 k/uL 1.74 2.70 Barren% % 5.7 6.2 Abs Barren <0.87 k/uL 0.47 0.92 (H) Eosin% % 5.7 3.8 Abs Eosin <0.46 k/uL 0.47 (H) 0.57 (H) Baso% % 0.5 0.5 Abs Baso <0.11 k/uL 0.04 0.08 Immature Gran % % 0.8 1.2 IMMATURE GRANS (ABS) <0.10 k/uL 0.07 0.18 (H) NRBC /100 WBC 0.0 0.0 Absolute nRBC <0.01 k/uL <0.01 <0.01 DTYPE Auto Auto Latest Ref Rng 08/29/2022 07/23/2023 Protein, Total 6.3 - 8.0 g/dL 7.1 7.3 Albumin 3.9 - 4.9 g/dL 4.1 4.2 Calcium 8.5 - 10.2 mg/dL 9.8 9.8 Bilirubin, Total 0.2 - 1.3 mg/dL 0.2 0.3 Alkaline Phosphatase 34 - 123 U/L 154 (H) 163 (H) AST 13 - 35 U/L 21 21 ALT 7 - 38 U/L 19 24 Glucose 74 - 99 mg/dL 120 (H) 142 (H) BUN 7 - 21 mg/dL 26 (H) 31 (H) Creatinine 0.58 - 0.96 mg/dL 1.85 (H) 1.57 (H) Sodium 136 - 144 mmol/L 140 139 Potassium 3.7 - 5.1 mmol/L 4.2 5.1 Chloride 97 - 105 mmol/L 103 103 CO2 22 - 30 mmol/L 21 (L) 24 Anion Gap 9 - 18 mmol/L 16 12 eGFR >=60 mL/min/1.73m 30 (L) 36 (L) Latest Ref Rng 08/29/2022 07/23/2023 Cholesterol, Total <200 mg/dL 220 (H) 188 Triglyceride <150 mg/dL 285 (H) 121 HDL Cholesterol >39 mg/dL 40 53 Non HDL Cholesterol <130 mg/dL 180 (H) 135 (H) Fasting Time hrs 13 12 VLDL Cholesterol <30 mg/dL 57 (H) 24 TC:HDL Ratio <5.10 5.50 (H) 3.55 LDL Cholesterol <100 mg/dL 123 (H) 111 (H) LDL:HDL Ratio <2.54 3.08 (H) 2.09 Type 2 diabetes mellitus with diabetic neuropathy, with long-term current use of insulin (hcc) Renal insufficiency Current medications: Dulaglutide 1.5mg SC weekly Jardiance 10mg daily Taking medication as directed consistently? Yes No complications. Medical Issues / Complications: hypertension, hyperlipidemia, and cardiovascular disease Checking blood sugars at home? not taking routinely per my instructions Watching diet? What diet?. Doesn't eat much. Physical Activity: Sedentary Hypoglycemic spells? No Any visual disturbance? No. Some issues with dry eye per senior energy trader Chest pain? No New numbness, tingling or [...] % 10/31/2020 5.5 04/14/2020 5.8 % ) Component Latest Ref Rng & Units 08/15/2021 08/15/2022 Protein, Urine Random 0 - 20 mg/dL 17 24 (H) Creatinine, Ur Random (UCRR) 20.0 - 300.0 mg/dL 54.2 68.5 Protein/Creat Ratio <0.15 mg/mg 0.3 (H) 0.35 (H) Last 2 Encounter Wt Readings: Date: Wt: 08/01/2023 95.3 kg (210 lb) 07/27/2023 94 kg (207 lb 3.7 oz) Panic disorder with agoraphobia Fatigue, unspecified type Chronic depression Major depressive disorder, recurrent severe without psychotic features (hcc) Chronic post-traumatic stress disorder (ptsd) Anxiety Current medications: Lamictal 100mg twice day: ran out and did not refill. No panic episodes Fatigue is better Sleeping is good but not refreshed Mood: no depression or anxiety per patient today. Reaffirms has a lot of support with new restorationist family: discussed at length No suicidal thoughts Follows with Cary Loredo RADIOLOGY CLERK, no f/u in a long while Esophagitis Change in bowel function Current use of proton pump inhibitor Current medication: ` Carafate 1 gm three times a day with meals Prilosec 40mg daily AC Current symptoms/ Hx: none Bowels are peachy. Nostrain, black or tarry stools 1-2/day Consult for surgery placed Dr. Eugenia Vee: acid reflux, history of colon polyps last found tubular adenoma 2013, last colonoscopy 2016 - no polyps found Resolved from our last visit: Change in stool: thinner over last couple months: goes in spurts, smaller stools, soft, thinner, bright red blood in water. Has some incontinence on wiping. Last Mg level if on PPI chronically: 1.9 10/03/2021. Heartburn is controlled: Yes. Dysphagia: No. Bloody or black stools: No. Bowel changes: No. Last EGD and/or colonoscopy: 08/16/[address] Vee: mild gastritis, very small hiatal hernia with irregular z line FINAL DIAGNOSIS A. Stomach, antrum, biopsy: - Mild chronic inactive gastritis. - No morphologic evidence of Helicobacter pylori organisms. B. Esophagogastric junction, biopsy: - Esophageal squamous mucosa with mild chronic inflammation. - Gastric mucosa with focal acute inflammation. See comment. H.Pylori negative 12/24/[address] Vee: A. stomach antrum: reactive gastropathy, focal granulation tissue, - H. Pylori 07/11/2016 EGD/ colonoscopy normal stomach, duodenum. Entire colon WNL. Path: A. Duodenum, distal WNL; B. stomach antrum Mild chronic inactive gastritis. - H. Pylori Malabsorption of iron Other iron deficiency anemia Follows with hematology Dr. Lavelle Duong/ Saige Wallis RADIOLOGY CLERK 10/31-11/14/2022 had 5x IV iron sucrose 200mg infusions 08/24-09/12/2021 had 5x IV iron sucrose 200mg infusions Vitamin d deficiency Latest Ref Rng 12/16/2017 05/03/2021 Vitamin D 25 Hydroxy 31.0 - 80.0 ng/mL 58.6 73.3 Class 2 severe obesity due to excess calories with serious comorbidity and body mass index (bmi) of35.0 to 35.9 in adult (hcc) Weight down 26lbs since started dulaglutide. Fibromyalgia Lupus (formerly [facility]) Ddd (degenerative disc disease), lumbar Primary osteoarthritis of left knee Lumbosacral radiculopathy at L5 Building Performance Specialist: Tyler Dixon RADIOLOGY CLERK: Current medications: Gabapentin 300mg three times a day HCQ 200mg daily Tylenol ES 500mg 2 tabs q8h prn- not much use Ibuprofen 200mg as needed with food: taking about 3-5 tables a day, at most Hasn't seen rheum for a long time Component Latest Ref Rng & Units 05/03/2021 08/15/2022 WSR 0 - 20 mm/hr 26 (H) 18 CRP <0.9 mg/dL 0.6 0.8 C3 86 - 166 mg/dL 115 126 C4 13 - 46 mg/dL 25 28 DNA Antibody <30 IU/mL 69 (H) 35.32 (H) Component Latest Ref Rng & Units 12/16/2017 05/03/2021 Vitamin D 25 Hydroxy 31.0 - 80.0 ng/mL 58.6 73.3 Supplementing HISTORIES FAMILY HISTORY Problem Relation Age of [...] PAST MEDICAL HISTORY Diagnosis Date Aspiration pneumonia ([facility]) 04/2019 [facility] DDD (degenerative disc disease) Depression Diabetes mellitus without mention of complication Fibromyalgia Hyperlipidemia Iron deficiency anemia, unspecified Dr Duong Iron malabsorption 10/23/2022 Lupus (HCC) Obesity Vitamin D deficiency 2012 PAST SURGICAL HISTORY Procedure Laterality Date ARTHRP KNE CONDYLE&PLATU MEDIAL&LAT COMPARTMENTS Left 02/25/[address] CARDIAC CATH 2007 no stenosis minimal plaque [...] Smoking status: Former Packs/day: 1.00 Years: 0.50 Additional pack years: 0.00 Total pack years: 0.50 Types: Cigarettes Quit date: 04/05/1985 Years since quittin.3 Smokeless tobacco: Never Tobacco comments: Smoked for 6 months total. Vaping Use Vaping Use: Never used Substance Use Topics Alcohol use: No Drug use: No ACTIVE PROBLEM LIST Mixed Hyperlipidemia Iron Deficiency Anemia Lumbosacral Radiculopathy At L5 Anxiety Enthesopathy of Ankle and Tarsus, Unspecified Lupus ([facility]) Fibromyalgia Ddd (Degenerative Disc Disease), Lumbar Obesity Vitamin D Deficiency Other Pain Disorders Related to Psychological Factors Malabsorption of Iron Type 2 Diabetes Mellitus With Diabetic Neuropathy, Without Long-Term Current Use of Insulin ([facility]) Primary Osteoarthritis of Left Knee Abnormal Ekg Absolute Anemia Diastolic Dysfunction, Left Ventricle Chronic Renal Insufficiency, Stage 3 (Moderate) ([facility]) Moderate Episode of Recurrent Major Depressive Disorder ([facility]) Panic Disorder With Agoraphobia Chronic Post-Traumatic Stress Disorder (Ptsd) Type 2 Diabetes Mellitus With Stage 3 Chronic Kidney Disease, Without Long-Term Current Use of Insulin ([facility]) Congestive Heart Failure ([facility]) Right Bundle Branch Block Diastolic Dysfunction Metabolic Encephalopathy Blood in Stool Change in Bowel Habits Nausea Gastroesophageal Reflux Disease With Esophagitis Without Hemorrhage Ckd (Chronic Kidney Disease) Stage 4, Gfr 15-29 Ml/Min ([facility]) Hx of Encephalopathy Iron Malabsorption Current Outpatient Medications Medication Sig Dispense Refill omeprazole (PRILOSEC) 40 mg capsule Take 1 capsule by mouth once daily. 90 capsule 0 doxycycline (VIBRA-TABS) 100 mg tablet Take 1 tablet by mouth two times a day for 7 days. 14 tablet0 benzonatate (TESSALON PERLES) 100 mg capsule Take 2 capsules by mouth three times a day as needed. 30 capsule 0 empagliflozin (JARDIANCE) 10 mg tablet Take 1 tablet by mouth once daily. Take 1 tablet once daily in the morning 90 tablet 3 hydrOXYchloroQUINE (PLAQUENIL) 200 mg tablet Take 1 tablet by mouth once daily. 90 tablet 1 sucralfate (CARAFATE) 1 gram tablet Take 1 tablet by mouth three times a day before meals. 90 tablet 5 dulaglutide (TRULICITY) 3 mg/0.5 mL pen injector Inject 3 mg subcutaneously one time a week. 12 Each 1 furosemide (LASIX) 20 mg tablet Take 1 tablet by mouth two times a day. Patient may adjust from baseline 40 mg daily up to 40 mg twice daily based on weight gain greater than 3 pounds plus either increased shortness of breath or increased swelling. 90 tablet 1 cholecalciferol, Vitamin D3, (VITAMIN D3) 1,250 mcg (50,000 unit) cap capsule Take 1 capsule by mouth one time a week. 4 capsule 11 pravastatin (PRAVACHOL) 20 mg tablet Take 1 tablet by mouth daily at bedtime. 90 tablet 3 blood sugar diagnostic (BLOOD GLUCOSE TEST) [...] No current facility-administered medications for this visit. Shingrix Vaccine(1 of 2) Never done Pneumococcal Vaccine: 65+(2 of 2 - PCV) due on 07/20/2008 RSV Vaccine(1 - 1-dose 60+ series) Never done Mammogram Screening due on 06/12/2018 Bone Density Screening Never done DTaP,Tdap,Td Vaccine(2 - Td or Tdap) due on 09/23/2021 Urine Albumin:Creatinine Ratio due on 10/03/2022 Dilated Retinal Exam due on 11/10/2022 Covid-19 Vaccine(2022-24 season) due on 12/07/2022 HbA1C due on 03/01/2023 Advance Directive Discussion due on 04/08/2023 EXAM: BP 102/68 Pulse (!) 57 Resp 18 Wt 95.3 kg (210 lb) LMP 12/07/2007 SpO2 97% BMI 35.42 kg/m Pleasant obese adult woman in no acute distress. Alert [...] or gallop. No lifts, heaves, or rubs. Abd: rounded, soft, active bowel sounds. No pulsatile masses. No masses. No organomegaly. Jackson's punch: negative. No flank pain. No inguinal or axillary lymphadenopathy. Extrem: no clubbing or cyanosis. Edema: none. Extremities are warm and pink with prompt capillary refill. Feet:Shoes and socks removed, Are you having foot pain no, No deformities, ulcers, calluses, and sensitive to 10 gm monofilament ASSESSMENT/PLAN: 1. Encounter for immunization - ICD9: V03.89, ICD10: Z23 (primary diagnosis) - [facility] PRINTED PHARMACY INSTRUCTIONS - PNEUMOCOCCAL VACCINE, 20 VALENT (PREVNAR 20) 2. Screening for diabetic retinopathy - ICD9: V80.2, ICD10: Z13.5 - CONSULT TO OPHTHALMOLOGY 3. Type 2 diabetes mellitus with stage 3b chronic kidney disease, without long- term current use of insulin (HCC) - ICD9: 250.40, 585.3, ICD10: E11.22, N18.32 - Control undetermined, due for labs - Continue current medications - eGFR: 36 Stable - Counseled on avoiding NSAIDs, adequate hydration - ALBUMIN/CREATININE RATIO, URINE - HEMOGLOBIN A1C - COMPREHENSIVE METABOLIC PANEL - LIPID PANEL BASIC - COMPLETE BLOOD COUNT AND DIFFERENTIAL 4. Hx of encephalopathy - ICD9: V12.49, ICD10: Z86.69 resolved 5. Chronic heart failure with preserved ejection fraction (HCC) - ICD9: 428.9, ICD10: I50.32 - Euvolemic - Continue current medications 6. Diastolic dysfunction, left ventricle - ICD9: 429.9, ICD10: I51.9 As above- discussed REINALDO, sleep study 7. Mixed hyperlipidemia - ICD9: 272.2, ICD10: E78.2 - Control undetermined, due for labs - Continue current medications - Counseled on healthy diet and regular exercise - COMPREHENSIVE METABOLIC PANEL - LIPID PANEL BASIC 8. Type 2 diabetes mellitus with diabetic neuropathy, without long-term current use of insulin (HCC) - ICD9: 250.60, 357.2, ICD10: E11.40 - Control undetermined, due for labs - Continue current medications - HEMOGLOBIN A1C - COMPREHENSIVE METABOLIC PANEL - LIPID PANEL BASIC - COMPLETE BLOOD COUNT AND DIFFERENTIAL 9. Stage 3 chronic renal impairment associated with type 2 diabetes mellitus (HCC) - ICD9: 250.40, 585.3, ICD10: E11.22, N18.30 - Control undetermined, due for labs - Counseled on healthy diet and regular exercise - Discussed need for and benefit of weight loss. BMI 35.42 kg/(m^2) - eGFR: 36 Stable - Counseled on avoiding NSAIDs, adequate hydration - consider ARB, SGLT2 on lab return - COMPREHENSIVE METABOLIC PANEL 10. Chronic renal failure, stage 3b (HCC) - ICD9: 585.3, ICD10: N18.32 As above - COMPREHENSIVE METABOLIC PANEL 11. Panic disorder with agoraphobia - ICD9: 300.21, ICD10: F40.01 Stable off medication, managing well - COMPREHENSIVE METABOLIC PANEL - COMPLETE BLOOD COUNT AND DIFFERENTIAL 12. Fatigue, unspecified type - ICD9: 780.79, ICD10: R53.83 chronic - COMPREHENSIVE METABOLIC PANEL - LIPID PANEL BASIC - COMPLETE BLOOD COUNT AND DIFFERENTIAL - VITAMIN D 25 HYDROXY 13. Severe recurrent major depression without psychotic features (HCC) - ICD9: 296.33, ICD10: F33.2 Stable, continue meds - COMPREHENSIVE METABOLIC PANEL - COMPLETE BLOOD COUNT AND DIFFERENTIAL 14. Chronic post-traumatic stress disorder (PTSD) - ICD9: 309.81, ICD10: F43.12 Stable, occasionally anxious or bad day 15. Esophagitis - ICD9: 530.10, ICD10: K20.90 Controlled, continue esomeprazole and Sucralfate - COMPREHENSIVE METABOLIC PANEL - COMPLETE BLOOD COUNT AND DIFFERENTIAL 16. Current use of proton pump inhibitor - ICD9: V58.69, ICD10: Z79.899 - COMPREHENSIVE METABOLIC PANEL - MAGNESIUM 17. Tubular adenoma of colon - ICD9: 211.3, ICD10: D12.6 Up to date on screening 18. Malabsorption of iron - ICD9: 579.8, ICD10: K90.9 - IRON AND TIBC - FERRITIN 19. Vitamin D deficiency - ICD9: 268.9, ICD10: E55.9 - VITAMIN D 25 HYDROXY 20. Asymptomatic menopausal state - ICD9: V49.81, ICD10: Z78.0 - BD DXA TRABECULAR BONE SCORE (TBS) Ailyn Carson PA-C Some of this note may have been copied and pasted for the purpose of history context and comparison. All questions listed were asked and adjusted for changes in prior data. Ailyn Carson PA-C documented in this encounter[facility]04-[facility] Instructions* Patient Instructions* Ailny Carson PA-C - 08/01/2023 5:32 AM EDT BONE MINERAL DENSITY PATIENT INSTRUCTIONS Bone mineral density testing measures the amount of calcium in certain parts of your bones. This information determines how strong your bones are. The test is used to detect osteoporosis, a disease in which the bone's mineral content and density are low, increasing a person's risk of fractures. Thelumbar spine (lower back) and the hip are the skeletal sites usually examined. For the test, remember that: 1. You cannot take this test if you are . 2. Eat a normal diet on the day of the test. 3. Take your medications as you normally would. 4. DO NOT take calcium supplements (such as Tums) for 24 hours before the test. 5. On the day of the test, leave valuables (jewelry or credit cards) at home. 6. The test should be performed prior to oral, rectal or IV contrast studies, or at least 7 days after any of these studies. For the test, you may be asked to wear a hospital gown. You will lie on your back, on a padded table, in a comfortable position. Generally, you can resume your usual activities immediately. documented in this encounter[facility]04-[facility]24 Telephone encounter Note * Telephone Encounter - Veda Ambriz APRN.CNS - 07/29/2023 9:59 AM EDT CKD stage 3 with esophagitis and multiple comorbidities [facility]04-[facility]-2024 Miscellaneous Notes* Telephone Encounter - Veda Ambriz APRN.CNS - 07/29/2023 9:59 AM EDT CKD stage 3 with esophagitis and multiple comorbidities * Telephone Encounter - Kristal Jarrett MA - 07/29/2023 9:11 AM EDT Patient has been identified by name and date of : Yes, Provider Alli Date 07/29/23 Time 9:16am Patient phones for refill(s): Requested Prescriptions Pending Prescriptions Disp Refills omeprazole (PRILOSEC) 40 mg capsule 90 capsule 3 Sig: Take 1 capsule by mouth once daily. Date of last office visit in primary care: 08/31/2022 Date of next office visit in primary care: 08/01/2023 Please advise. Thank you. Kristal Jarrett MA. documented in this encounterSouthern [facility]04-22-2024 Telephone encounter Note * Telephone Encounter - Kristal Jarrett MA - 07/29/2023 9:11 AM EDT Patient has been identified by name and date of : Yes, Provider Carson Date 07/29/23 Time 9:16am Patient phones for refill(s): Requested Prescriptions Pending Prescriptions Disp Refills omeprazole (PRILOSEC) 40 mg capsule 90 capsule 3 Sig: Take 1 capsule by mouth once daily. Date of last office visit in primary care: 08/31/2022 Date of next office visit in primary care: 08/01/2023 Please advise. Thank you. Kristal Jarrett MA. [facility]04-20-[facility] History of Present illness Narrative* Shona Tucker PA-C - 07/27/2023 12:30 PM EDT This note was created using [employer]. Subjective Corinna Carr is a 68 year old female. HPI Patient presents for cough, chest congestion, sinus pressure for a week. She has had some lightheadedness with coughing fits. Denies pain in her chest. Cough has been productive. She has been using Mucinex [id number]. No fever. Denies being around sick people. No home COVID test done. She denies history of asthma or COPD currently. She is not a smoker. No diarrhea or vomiting. Review of Systems Constitutional: Negative. HENT: Positive for congestion, sinus pressure and sinus pain. Negative for ear pain and sore throat. Respiratory: Positive for cough, chest tightness and shortness of breath. Negative for wheezing. Cardiovascular: Negative. Gastrointestinal: Negative. Genitourinary: Negative. Musculoskeletal: Negative. All other systems reviewed and are negative. PAST MEDICAL HISTORY Diagnosis Date Aspiration pneumonia (HCC) 04/2019 [facility] DDD (degenerative disc disease) Depression Diabetes mellitus without mention of complication Fibromyalgia Hyperlipidemia Iron deficiency anemia, unspecified Dr Duong Iron malabsorption 10/23/2022 Lupus (HCC) Obesity Vitamin D deficiency 2013 Current Outpatient Medications Medication Sig Dispense Refill empagliflozin (JARDIANCE) 10 mg tablet Take 1 tablet by mouth once daily. Take 1 tablet once daily in the morning 90 tablet 3 hydrOXYchloroQUINE (PLAQUENIL) 200 mg tablet Take 1 tablet by mouth once daily. 90 tablet 1 sucralfate (CARAFATE) 1 gram tablet Take 1 tablet by mouth three times a day before meals. 90 tablet 5 dulaglutide (TRULICITY) 3 mg/0.5 mL pen injector Inject 3 mg subcutaneously one time a week. 12 Each 1 cholecalciferol, Vitamin D3, (VITAMIN D3) 1,250 mcg (50,000 unit) cap capsule Take 1 capsule by mouth one time a week. 4 capsule 11 pravastatin (PRAVACHOL) 20 mg tablet Take 1 tablet by mouth daily at bedtime. 90 tablet 3 omeprazole (PRILOSEC) 40 mg capsule Take 1 capsule by mouth once daily. 90 capsule 3 blood sugar diagnostic (BLOOD GLUCOSE TEST) test strip Test blood sugar(s) 3 times daily. Dx: Type 2 DM - Uncontrolled E11.65 Insulin: Yes 100 Strip 11 blood sugar diagnostic (FREESTYLE LITE STRIPS) test strip Test blood sugar(s) 3 times daily. Dx: 250.02. Insulin: Yes 100 Strip 3 gabapentin (NEURONTIN) 300 mg capsule Take 1 capsule by mouth three times daily. 0 doxycycline (VIBRA-TABS) 100 mg tablet Take 1 tablet by mouth two times a day for 7 days. 14 tablet0 benzonatate (TESSALON PERLES) 100 mg capsule Take 2 capsules by mouth three times a day as needed. 30 capsule 0 furosemide (LASIX) 20 mg tablet Take 1 tablet by mouth two times a day. Patient may adjust from baseline 40 mg daily up to 40 mg twice daily based on weight gain greater than 3 pounds plus either increased shortness of breath or increased swelling. 90 tablet 1 No current facility-administered medications for this visit. PAST SURGICAL HISTORY Procedure Laterality Date ARTHRP KNE CONDYLE&PLATU MEDIAL&LAT COMPARTMENTS Left 02/25/[address] CARDIAC CATH 2007 no stenosis minimal plaque [...] Smoking status: Former Packs/day: 1.00 Years: 0.50 Additional pack years: 0.00 Total pack years: 0.50 Types: Cigarettes Quit date: 04/05/1985 Years since quittin.3 Smokeless tobacco: Never Tobacco comments: Smoked for 6 months total. Vaping Use Vaping Use: Never used Substance Use Topics Alcohol use: No Drug use: No Objective BP 98/58 Pulse 66 Temp (!) 35.8 C (96.4 F) Resp 18 Wt 94 kg (207 lb 3.7 oz) LMP 12/07/2007 SpO2 97% BMI 34.95 kg/m Physical Exam Vitals reviewed. Constitutional: Appearance: Normal appearance. HENT: Head: Normocephalic and atraumatic. Right Ear: Tympanic membrane, ear canal and external ear normal. Left Ear: Tympanic membrane, ear canal and external ear normal. Nose: Congestion present. Right Sinus: Maxillary sinus tenderness and frontal sinus tenderness present. Left Sinus: Maxillary sinus tenderness and frontal sinus tenderness present. Mouth/Throat: Mouth: Mucous membranes are moist. Pharynx: Oropharynx is clear. No oropharyngeal exudate or posterior oropharyngeal erythema. Cardiovascular: Rate and Rhythm: Normal rate and regular rhythm. Heart sounds: Normal heart sounds. Pulmonary: Effort: Pulmonary effort is normal. Breath sounds: Normal breath sounds. Comments: Harsh cough noted Musculoskeletal: Cervical back: Neck supple. Skin: General: Skin is warm and dry. Findings: No rash. Neurological: Mental Status: She is alert. Assessment and Plan ASSESSMENT/PLAN: 1. Sinobronchitis - ICD9: 473.9, 490, ICD10: J32.9, J40 - Will begin treatment with Doxycycline - Supportive care with plenty of fluids, rest, and analgesia prn. - Follow up in 3-5 days if symptoms persist or worsen. -Chest x-ray shows no pneumonia. - XR CHEST 2V FRONTAL/LAT Shona Tucker PA-C documented in this encounter[facility]04-20-[facility]24 History of Present illness Narrative* Maxine Dimas RT(Dereck) - 07/27/2023 11:30 AM EDT Radiology Service Progress Note PATIENT NAME: Corinna Carr DATE OF SERVICE: July 27, 2023 TIME: 11:24 AM PATIENT IDENTITY VERIFICATION COMPLETED USING TWO (2) IDENTIFIERS: Name and Date of confirmedby patient verbally. FALL SCREENING: Has the patient had 2 falls in the last year or 1 fall with injury or currently using an Ambulatory Assistive Device (Walker, Cane, Wheelchair, Crutches, etc.)? No PATIENT GENDER DATA: Female. status: : No status: NO. PATIENT RELEVANT IMPLANT DATA REVIEWED: Not Applicable PATIENT PRESENTS WITH AN IMPLANTABLE OR ATTACHED MASTER GLAZIER: No RADIOLOGY DEPARTMENT: General X-ray: Exam(s) Completed: Chest X-Ray PERIPHERAL IV DATA: Not applicable SIGNED BY: RT Radha(R) July 27, 2023 11:24 AM documented in this encounterSouthern [facility]04-11-2024 Miscellaneous Notes* Telephone Encounter - Rosa Blair OCCA - 07/18/2023 12:11 PM EDT Patient read MC message and appointment scheduled for 07/31. MACIEJ Sauceda * Telephone Encounter - Rosa Blair OCCA - 07/18/2023 10:58 AM EDT Additional TC with no answer, left VM. Also sent MC message. Please leave open until patient returns call or reads MC message. MACIEJ Sauceda * Telephone Encounter - Rosa Blair OCCA - 07/15/2023 9:40 AM EDT TC with no answer. Left VM to return call to office. MACIEJ Sauceda * Telephone Encounter - Ailyn Carson PA-C - 07/14/2023 5:43 AM EDT Overdue for follow up, please schedule, fasting lab prior She is due for dilated retinal examif it hasn't been done. Refill on 07/12/23 HGB A1C CBC + DIFF COMP METABOLIC PANEL LIPID PANEL BASIC MAGNESIUM BLD The following approved medication requests have been transmitted electronically. Requested Prescriptions Signed Prescriptions Disp Refills empagliflozin (JARDIANCE) 10 mg tablet 90 tablet 3 Sig: Take 1 tablet by mouth once daily. Take 1 tablet once daily in the morning Authorizing Provider: Ailyn CARSON PA-C * Telephone Encounter - Ramon Cortez MA - 07/13/2023 9:41 AM EDT Requested Prescriptions Pending Prescriptions Disp Refills empagliflozin (JARDIANCE) 10 mg tablet 90 tablet 3 Sig: Take 1 tablet by mouth once daily. Take 1 tablet once daily in the morning Date of last office visit in primary care: 08/31/2022 Date of next office visit in primary care: Visit date not found Please advise. Thank you. Ramon Cortez MA. documented in this encounterSouthern [facility]03-19-2024 Miscellaneous Notes* Telephone Encounter - Gaby Mancilla - 06/25/2023 10:46 AM EDT This is already scheduled. Gaby Zamora * Telephone Encounter - Coretta Barros LPN - 06/24/2023 8:40 AM EDT PSS- please contact patient to schedule as directed below. Coretta Barros LPN * Telephone Encounter - Bre Mccarthy LPN - 06/20/2023 12:14 PM EDT Call went directly to . Left and sent [facility] message. Bre Mccarthy LPN * Telephone Encounter - Saige Wallis APRN.CNP - 06/20/2023 11:54 AM EDT Please inform pt. that her iron studies look good. CBC/iron studies in 3 months. OV/CBC/iron studies in 6 months. Thank you. Saige Wallis APRN.TODD documented in this encounterSouthern [facility]03-13-2024 History of Present illness Narrative* Saige Wallis APRN.TODD - 06/19/2023 1:19 PM EDT Chief Complaint Patient presents with: Established Patient HPI: Corinna Carr is a 68 year old female who presents here today [...] erythema in the body and antrum of thestomach without ulcerations. Biopsy of duodenal mucosa showed [...] sucrose November 2022. No new concerns today. Appetite:Ok. Wt. up 2# since last OV in December. Energy level:Ok, I've been running around more. Denies fevers or recent illness. Resp:denies cough or sob Cardiac:denies chest pain/palpitations GI:denies abd pain, n/v, moving bowels regularly :denies dysuria/hematuria Extrem:chronic back pain-followed by [facility] Neuro:+neuropathy to feet-stable Skin:denies rashes/lesions Heme:denies bleeding The ROS is otherwise negative. Past medical history, appointments, medications, allergies reviewed. No changes. EXAM: BP 116/74 Pulse 70 Temp 36.3 C (97.4 F) (Temporal) Wt 95.2 kg (209 lb 14.4 oz) LMP 12/07/2007 SpO2 97% BMI 35.40 kg/m APPEARANCE Well appearing, alert, in no [...] normal, no suspicious rashes or lesions LABS: Latest Ref Rng 10/22/2022 12/11/2022 06/19/2023 WBC 3.70 - 11.00 k/uL 12.74 (H) 10.26 8.26 RBC 3.90 - 5.20 m/uL 4.58 4.94 4.67 Hemoglobin 11.5 - 15.5 g/dL 11.9 13.1 12.8 Hematocrit 36.0 - 46.0 % 39.6 44.4 41.4 MCV 80.0 - 100.0 fL 86.5 89.9 88.7 MCH 26.0 - 34.0 pg 26.0 26.5 27.4 MCHC 30.5 - 36.0 g/dL 30.1 (L) 29.5 (L) 30.9 RDW-CV 11.5 - 15.0 % 15.9 (H) 17.1 (H) 15.4 (H) Platelet Count 150 - 400 k/uL 309 265 216 MPV 9.0 - 12.7 fL 10.1 10.2 10.6 Neut% % 68.3 70.9 66.2 Abs Neut (ANC) 1.45 - 7.50 k/uL 8.71 (H) 7.27 5.47 Lymph% % 20.3 17.3 21.1 Abs Lymph 1.00 - 4.00 k/uL 2.58 1.78 1.74 Barren% % 5.8 5.8 5.7 Abs Barren <0.87 k/uL 0.74 0.60 0.47 Eosin% % 3.5 4.2 5.7 Abs Eosin <0.46 k/uL 0.44 0.43 0.47 (H) Baso% % 0.5 0.6 0.5 Abs Baso <0.11 k/uL 0.06 0.06 0.04 Immature Gran % % 1.6 1.2 0.8 IMMATURE GRANS (ABS) <0.10 k/uL 0.21 (H) 0.12 (H) 0.07 NRBC /100 WBC 0.0 0.0 0.0 Absolute nRBC <0.01 k/uL <0.01 <0.01 <0.01 DTYPE Auto Auto Auto Iron studies: Pending ASSESSMENT/PLAN: 1. Other iron deficiency anemia - ICD9: 280.8, ICD10: D50.[address] Duong's previous note 06/20/20: Assessment: -The patient is a 65-year-old female with a history of iron deficiency anemia. She has been throughmultiple endoscopies and capsule endoscopy with no particular evidence of significant GI bleed. Shehas received multiple parenteral courses of iron over the last 10 years. Most recently early June of this year. -Her ferritin was improved when last checked. She was since hospitalized for congestive heart failure. She has lost 21 pounds since of hospitalization through diuresis. -Still has mild anemia. -Incidentally, reviewed old CT images from [facility]. The subcutaneous mass in theleft abdomen is fat necrosis. Calcified lesion that [...] 2022. - Reviewed CBC with pt. - Iron studies pending. - Follow up pending today's iron studies. - Pt. aware to call office with any questions/concerns. The patient indicates understanding of these issues and agrees with the plan. All documentation from previous visit of 12/11/22-Dr. Duong/myself was copied and pasted, documentation has been reviewed and edited as necessary for today's visit. Saige Wallis APRN.TODD documented in this encounterSouthern [facility] Center12-01-2023 Miscellaneous Notes* Telephone Encounter - Ailyn Carson PA-C - 03/08/2023 4:36 PM EST Please schedule follow up and complete outstanding lab/ The following approved medication requests have been transmitted electronically. Requested Prescriptions Signed Prescriptions Disp Refills dulaglutide (TRULICITY) 3 mg/0.5 mL pen injector 12 Each 1 Sig: Inject 3 mg subcutaneously one time a week. Authorizing Provider: Ailyn CARSON PA-C * Telephone Encounter - Desirae Hernandez Ma - 03/08/2023 8:08 AM EST Last office visit: 08/31/22 F/u scheduled: none Desirae Hernandez Ma documented in this encounterSouthern [facility] Center11-13-2023 Miscellaneous Notes* Telephone Encounter - Yoko Kern MA - 02/18/2023 10:12 AM EST Patient has been identified by name and [...] 08/31/22 Patient next office visit: none scheduled Yoko Kern MA documented in this encounterSouthern [facility] Center10-27-2023 Miscellaneous Notes* Telephone Encounter - Cary Loredo APRN.CNP - 02/01/2023 9:30 AM EDT Noted. documented in this encounterSouthern [facility] Center10-27-2023 Miscellaneous Notes* Telephone Encounter - Stacie Higginbotham MA - 02/01/2023 8:04 AM EDT Patient has been identified by name and date of : Yes RX INSTRUCTIONS: Patient aware RX will be sent to pharmacy. No need to notify patient. Eye exam for Plaquenil toxicity received from [facility]. Exam date was 11/10/21. Exam shows no signs of Plaquenil toxicity. Patient is notified to have PLQ eye exam done JOURDAN and verbalized understanding. Fax results to [phone]. LAST APPOINTMENT: 06/11/2019 UPCOMING APPOINTMENT: Visit date [...] URICACID Stacie Higginbotham MA documented in this encounterSouthern [facility] Center09-05-2023 Miscellaneous Notes* Telephone Encounter - Concepción Call - 12/11/2022 3:45 PM EDT Scheduled with patient * Telephone Encounter - Alannah Bella - 12/11/2022 3:34 PM EDT Check out comments: - Repeat CBC/iron studies as scheduled in February. - Move next OV out-Follow up in 6 months with CBC/iron studies-pending today's iron studies. - Pt. aware to call office with any questions/concerns. documented in this encounterSouthern [facility] Center09-05-2023 History of Present illness Narrative* Saige Wallis APRN.RADIOLOGY CLERK - 12/11/2022 1:47 PM EDT Chief Complaint Patient presents with: Established Patient HPI: Corinna Carr is a 67 year old female [...] erythema in the body and antrum of thestomach without ulcerations. Biopsy of duodenal mucosa showed [...] sucrose November 2022. No new concerns today. Appetite:Ok. Wt. up 6# since last OV in August. Energy level:Not good. Denies fevers or recent illness. Resp:denies [...] - 4.00 k/uL 2.26 1.69 2.58 1.78 Barren% % 5.2 4.8 5.8 5.8 Abs Barren <0.87 k/uL 0.61 0.45 0.74 0.60 Eosin% [...] of iron deficiency anemia. She has been throughmultiple endoscopies and capsule endoscopy with no particular evidence of significant GI bleed. Shehas received multiple parenteral courses of iron over the last 10 years. Most recently early June of this year. -Her ferritin was improved when last checked. She was since hospitalized for congestive heart failure. She has lost 21 pounds since of hospitalization through diuresis. -Still has mild anemia. -Incidentally, reviewed old CT images from [facility]. The subcutaneous mass in theleft abdomen is fat necrosis. Calcified lesion that [...] and edited as necessary for today's visit. Saige Wallis APRN.CNP documented in this encounterSouthern [facility] Center08-29-2023 Instructions* Patient Instructions* Cayr Loredo APRN.CNP - 12/04/2022 4:26 PM EDT [...] - Call the National Suicide Hotline at 7-098-VSAXXYZ ( ) or 9-486-949-TALK (2997) - Text 4HOPE to 402650 Medication Update: Lamictal 25 mg - take 1 tablet once daily for 14 days, then take 2 tablets once daily for 14 days, then take 3 tablets once daily after that. Next appointment: January 08 at 1:30 pm in person. -- You may call the department appointment line at [phone] to schedule your appointment. -- Please call my nurse Vero at [phone] or send me a message in [facility] with any questions or concerns between appointments. documented in this encounterSouthern [facility] Medical Center08-29-2023 History of Present illness Narrative* Cary Loredo APRN.CNP - 12/04/2022 2:09 PM EDT Images from the original note were not [...] licensure. The patient's identity and physical location wereverified at the time of this visit. Either the patient or their legal business banking representative has been informed of the risks and benefits of -- and alternatives to -- treatment through a remote evaluation andconsents to proceed with the evaluation remotely. HPI: Corinna Carr is a 67 year old Female with a history of PTSD, MDD, panic disorder, and tremors presenting today for follow-up. Date of last visit: 03/07/2022 Plan from last visit: Continue Lamictal at the same dose. Encouraged patient to start individual psychotherapy with Dr. Ambrocio. Follow up in 3 months or sooner if needed Today Corinna shares that she was doing well but now I feel more depressed and sad. She stopped taking Lamictal around June. For a short time she did well. Then started noticed worsening of her mood. Couple months ago, her best friend of 20 years moved to [place] with her daughter. She misses doing things with the friend. She feel excluded from things in the family. Because of her health, she could not do things at the family reunion. Has stress of taking care of mother due to her healthissues. Feels overwhelming. Continues to get iron infusions. Unsure if it is helpful for her fatigue. She continues to notice aworsening of her memory. Her pain has improved and she is no longer using medical marijuana. She does not need assistive devices to walk. Gets injections for nerve pain. She continues to be able to drive. She helps drive the [employer] when they call her. She is sleeping [...] which included preparing to see the patient, [id number] patient care, completing clinical documentation, and counseling and educating the patient/family/caregiver, ordering medications/labs. Cary Loredo APRN.TODD December 04, 2022 2:09 PM This note was partially generated using [employer] voice recognition system. Note was reviewed for accuracy. There may be minor misspellings or grammar miscues with [employer] voice recognition. documented in this encounterSouthern [facility] Center08-14-2023 Miscellaneous Notes* Telephone Encounter - Vero Rachel LPN - 11/19/2022 12:08 PM EDT Lm for patient to call to schedule FU then refills will be sent accordingly. documented in this encounterSouthern [facility] Medical Center07-23-2023 Miscellaneous Notes* Telephone Encounter - Melissa Aranda - 10/28/2022 10:16 AM EDT Called pt to reschedule iron treatment: LM and sent MC documented in this encounterSouthern Ohio Medical Center07-19-2023 Miscellaneous Notes* Telephone Encounter - Concepción Call - 10/24/2022 3:55 PM EDT Patient scheduled and Start email sent. * Telephone Encounter - Lavelle Duong DO - 10/23/2022 4:57 PM EDT TIBC increased with declining ferritin indicating evolving iron deficiency. Please schedule for 5 doses of iron sucrose. OV/CBC/iron studies with Saige about 4 weeks after completing iron. Lavelle Duong DO * Telephone Encounter - Abiola Toro RN - 10/23/2022 11:49 AM EDT Nitin Care Coordination FOLLOW-UP NOTE iron deficiency anemia Last iron sucrose 09/2021 Patient called back. Patient stated for the past 1-2 weeks she has felt worn down and it took all I could do to walk in and walk back out yesterday for labs. Patient stated she rates fatigue /10, has SOB sometimes x 1 week. Patient denies chest pain/pressure, cough, irregular heartbeats, fever, chills, headache, urinary symptoms, or dizziness. Patient had a hard time stating how much fluidshe drinks but thinks is 30-40+ ounces. Patient is asking for her recent labs to be evaluated to see if she needs iron sucrose. Care Coordination Plan: Will follow up after speaking to Dr. Rhoda Toro RN October 23, 2022 * Telephone Encounter - Abiola Toro RN - 10/23/2022 11:39 AM EDT [place] Care Coordination FOLLOW-UP NOTE Care Coordination Plan: Called patient, no answer, left a VM requesting a call back. Abiola Toro RN October 23, 2022 documented in this encounterSouthern [facility] Center07-03-2023 Miscellaneous Notes* Telephone Encounter - MACIEJ Sauceda - 10/08/2022 9:17 AM EDT Patient has been identified by name and date of : Yes Patient phones for refill(s): Requested Prescriptions Pending Prescriptions Disp Refills sucralfate (CARAFATE) 1 gram tablet 90 tablet 5 Sig: Take 1 tablet by mouth three times daily before meals. Date of last office visit in primary care: ADRIANA 08/31/22 NOV not scheduled Last 2 Encounter Wt Readings: Date: Wt: 08/31/2022 93 kg (205 lb) 08/20/2022 93 kg (205 lb) Please advise. Thank you. MACIEJ Sauceda documented in this encounterSouthern [facility] Center06-15-2023 Miscellaneous Notes* Telephone Encounter - Janine Campoverde Ma - 09/20/2022 2:20 PM EDT Patient last visit with PCP 08/31/22 Follow up appointment scheduled none Janine Campoverde Ma documented in this encounterSouthern [facility] Center06-06-2023 Miscellaneous Notes* Telephone Encounter - MACIEJ Sauceda - 09/11/2022 8:19 AM EDT Patient has been identified by name and date of : Yes Patient phones for refill(s): Requested Prescriptions Pending Prescriptions Disp Refills cholecalciferol, Vitamin D3, (VITAMIN D3) 1,250 mcg (50,000 unit) cap capsule 4 capsule 11 Sig: Take 1 capsule by mouth one time a week. Date of last office visit in primary care: ADRIANA 08/31/22 No appointment scheduled Last 2 Encounter Wt Readings: Date: Wt: 08/31/2022 93 kg (205 lb) 08/20/2022 93 kg (205 lb) Please advise. Thank you. MACIEJ Sauceda documented in this encounterSouthern [facility] Medical Center05-15-2023 History of Present illness Narrative* Tyler Dixon APRN.CNP - 08/20/2022 4:44 PM EDT Orders Only on 08/20/22 URINALYSIS, DIPSTICK ONLY PROTEIN CREATININE RATIO Tyler Dixon APRN.CNP documented in this encounterSouthern [facility] Center03-15-2023 Miscellaneous Notes* Telephone Encounter - Janine Campoverde Ma - 06/20/2022 4:53 PM EDT PA approved 05/20/22-06/19/23 Faxed approval to pharmacy and patient left message on Janine Campoverde Ma * Telephone Encounter - Janine Campoverde Ma - 06/19/2022 4:24 PM EDT Prior Authorization has been completed online at [employer] for [employer], will await response. ANDINO- [id number] Please keep encounter open until final decision has been received and documented from insurance company. Janine Campoverde MA documented in this encounterSouthern [facility] Medical Center03-02-2023 Miscellaneous Notes* Addendum Note - Roberta Lanza APRN.CNP - 06/07/2022 12:08 PM ESTAddended by: ROBERTA LANZA on: 06/07/2022 12:08 PM Modules accepted: Orders documented in this encounterSouthern [facility] Medical Center03-02-2023 History of Present illness Narrative* Roberta Lanza APRN.CNP - 06/07/2022 11:01 AM EST Corinna is a 67 year old who presents for an annual gynecologic exam with complaints, vaginal itching and vulvar irritation. Believes it may be a yeast infection. Started over a year ago, symptoms of itching and burning are constant aside from brief relief from OTC creams. Unsure about increase in discharge due to frequent vaginal cream use. Not sexually active, no concerns for STDs. 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 Assistants History LMP: 12/07/2007, Postmenopausal Age at Menarche: Age at First : Age at Menopause: Occup[employer] History Comments: Sexual Activity: Not Currently; No partner data on record; Contraception: Tubal Ligation PAST MEDICAL HISTORY Diagnosis Date Aspiration pneumonia (HCC) 04/2019 [facility] DDD (degenerative disc disease) Depression Diabetes mellitus without mention of complication Fibromyalgia Hyperlipidemia Iron deficiency anemia, unspecified Dr Duong Lupus ([facility]) Obesity Vitamin D deficiency 2012 PAST SURGICAL HISTORY Procedure Laterality Date ARTHRP KNE CONDYLE&PLATU MEDIAL&LAT COMPARTMENTS Left 02/25/[address] CARDIAC CATH 2007 no stenosis minimal plaque [...] external genitalia normal, normal Bartholin's glands, urethra, Poca's glands, no vulvar lesions, no cervical lesions, good vaginal support, physiologic discharge present, normal appearing perineal body and perianal region, inflammation noted along vaginal canal and along labial folds. BIMANUAL: uterus normal size, shape and consistency, no adnexal masses, non- tender, and no cervicalmotion tenderness RECTOVAGINAL: deferred. NEURO: alert and oriented x3,exam grossly non-focal EXTREMITIES: normal ASSESSMENT/PLAN: 1) Health maintenance: Pap done with HPV. Nutrition, exercise and routine health maintenance exams reviewed. 2) Follow up one year or sooner as needed 3) Bv/yeast ordered Discusses if culture were negative will consider vaginal estrogen Sangita Galeana SHOW HOST OR HOSTESS student TEACHING PROVIDER (Physician/PA/PHOTOGRAPHER'S MODEL) NOTE OF PERSONAL INVOLVEMENT IN CARE: I have personally seen and examined the patient and performed the medical decision-making components. I have reviewed the Advanced Practice Registered Nurse (PHOTOGRAPHER'S MODEL) Student's documentation and verified the findings in the note as written. Any additions or changes are noted in bold/italics. Signature: Roberta Lanza Date: 06/07/2022 Time: 11:57 AM documented in this encounterSouthern [facility] Medical Center03-02-2023 Nurse Note* Comfort Horton RN - 06/07/2022 10:15 AM EST REVIEW OF SYSTEMS: General: The patient NOTES [...] 07/11/2016 Comfort Horton RN documented in this encounterSouthern Ohio Medical Center03-02-2023 History of Present illness Narrative* Bryant Russo PA-C - 06/07/2022 10:10 AM EST HISTORY AND PHYSICAL Corinna Carr 1955 REFERRING PHYSICIAN: Ailyn Carson PA-C CHIEF COMPLAINT: Consult (Colonoscopy consult) HPI: The patient is a 67 year old female referred for endoscopy. Corinna notes a recent change in bowel habits with increased straining and a decrease in caliber of stool Noted some bright red blood with BMs which has resolved. Patient denies any change in bowel habits, weight changes, black tarry stools or abdominal pain. Denies family history of colon issues. The patient NOTES issues with GERD despite taking PPI and carafate, and watching diet. Corinna has undergone prior endoscopy. Most recent colonoscopy and EGD 07/11/[address] Xiong. No concerning findings at that time. Repeat colonoscopy was recommended in 5 years based on a previous history of polyps. PAST MEDICAL HISTORY Diagnosis Date Aspiration pneumonia (HCC) 04/2019 [facility] DDD (degenerative disc disease) Depression Diabetes mellitus without mention of complication Fibromyalgia Hyperlipidemia Iron deficiency anemia, unspecified Dr Duong Lupus (HCC) Obesity Vitamin D deficiency 2012 PAST SURGICAL HISTORY Procedure Laterality Date ARTHRP KNE CONDYLE&PLATU MEDIAL&LAT COMPARTMENTS Left 02/25/[address] CARDIAC CATH 2007 no stenosis minimal plaque [...] mouth twice daily with meals. PRN) Insulin [place], Disposable, (PEN NEEDLES) 31 gauge x 1/4 [...] entered by the nurse and reviewed by ok Nursing Notes: Comfort Horton RN 06/07/2022 10:17 [...] the PFSH and ROS obtained by others. Bryant Russo PA-C PHYSICAL EXAMINATION: General: The patient is 67 year old female, well nourished, well hydrated in no acute distress. Thepatient is oriented to time, place, and person. VITALS: Blood pressure 112/60, pulse 107, temperature 36.8 C (98.3 F), height 165.1 cm (5' 5), weight 93.7 kg (206 lb 9.6 oz), last menstrual period 12/07/2007, SpO2 99 %. Body mass index is 34.38 kg/m . HEENT: Normal cephalic, ataumatic, pupils are equally round, sclera are anicteric, mucous membranesare moist, oropharynx is clear. Neck has no [...] patient was offered a [facility]. I have counseled the patient regarding [...] letter to requesting physician via US mail. Bryant Russo PA-C documented in this encounterSouthern [facility] Medical Center02-16-2023 Miscellaneous Notes* Telephone Encounter - Tyler Dixon APRN.RADIOLOGY CLERK - 05/24/2022 10:06 AM EST The patient did not log in for her virtual visit. I called her and left a message advising that shereschedule if she is not able to keep her appointment. Tyler Dixon APRN.TODD documented in this encounterSouthern [facility] Medical Center02-16-2023 History of Present illness Narrative* Tyler Dixon APRN.CNP - 05/24/2022 10:00 AM EST HPI: To review, Corinna Carr is a 67 year old female [...] HISTORY Diagnosis Date [facility] [facility] DDD (degenerative disc disease) Depression Diabetes mellitus without mention of complication Fibromyalgia Hyperlipidemia Iron deficiency anemia, unspecified Dr Duong Lupus (HCC) Obesity Vitamin D deficiency 2012 PAST SURGICAL HISTORY Procedure Laterality Date ARTHRP KNE CONDYLE&PLATU MEDIAL&LAT COMPARTMENTS Left 02/25/[address] CARDIAC CATH 2007 no stenosis minimal plaque CARPAL TUNNEL bilateral CHOLECYSTECTOMY 1997 Cholecystectomy COLONOSCOPY & POLYPECTOMY 07/27/13 TA x 2, hyperplastic x 5. Repeat in 3y. COLONOSCOPY FLX DX W/COLLJ SPEC WHEN PFRMD 08/15/07 Repeat in -2017 COLONOSCOPY FLX DX W/COLLJ SPEC WHEN PFRMD [...] visit is a virtual encounter. It required patient- provider interaction for the medical decision making as [...] (Patient not taking: Reported on 05/21/2022) Insulin [place], Disposable, (PEN NEEDLES) 31 gauge x 1/4 [...] No Family History SOCIAL HISTORY: Lives in [place] Tobacco use: None Alcohol use: None PHYSICAL [...] Abs Lymph 1.00 - 4.00 k/uL 2.26 Barren% % 5.2 Abs Barren <0.87 k/uL 0.61 Eosin% % 0.0 Abs [...] Negative Negative Ketones, Urine Negative Negative Specific [place], Ur 1.005 - 1.030 1.011 Hemoglobin/Blood,Ur Negative Negative pH, Urine 5.0 - 8.0 6.0 Protein, Urine Negative Negative Urobilinogen Negative E.U./dL Negative Nitrites Negative Positive (A) Leukest Negative 2+ (A) Comment SEE COMMENT WBC, Urine 0 - 5 /HPF 6-10 (A) RBC, Urine 0 - 3 /HPF 0-3 Cast 0 /LPF SEE COMMENT (A) Epithelial Cells /HPF SEE COMMENT Urine Barbara Comment SEE COMMENT Creatinine 0.58 - 0.96 [...] Units 09/25/2012 Sm Antibody <1.0 AI <0.2 PHOTOGRAPHY AND PRINTS CURATOR Antibody <1.0 AI <0.2 SSA Antibody <1.0 AI <0.2 SSB Antibody <1.0 AI <0.2 Centromere Ab <1.0 AI <0.2 Scleroderma Ab, IgG <1.0 AI <0.2 Rupa 1 Antibody <1.0 AI <0.2 Ribosomal PHOTOGRAPHY AND PRINTS CURATOR <1.0 AI <0.2 Chromatin Antibody <1.0 AI [...] - Check labs. Notify of results via Mynglet 2. Osteoarthritis: L knee OA s/p L [...] Visit time was 6 minutes Tyler Dixon APRN.TODD documented [facility] History of Present illness Narrative* Ailyn Carson PA-C - 05/21/2022 2:40 PM EST 67 year old female with c/o I need a colonoscopy. Change in stool: thinner over last couple [...] Lymph 1.00 - 4.00 k/uL 1.52 2.26 Barren% % 4.1 5.2 Abs Barren <0.87 k/uL 0.43 0.61 Eosin% % 3.8 [...] HISTORY Diagnosis Date Aspiration pneumonia (HCC) 04/2019 [facility] DDD (degenerative disc disease) Depression Diabetes mellitus without mention of complication Fibromyalgia Hyperlipidemia Iron deficiency anemia, unspecified Dr Duong Lupus (HCC) Obesity Vitamin D deficiency 2012 PAST SURGICAL HISTORY Procedure Laterality Date ARTHRP KNE CONDYLE&PLATU MEDIAL&LAT COMPARTMENTS Left 02/25/[address] CARDIAC CATH 2007 no stenosis minimal plaque [...] Neuropathy, Without Long-Term Current Use of Insulin ([facility]) Primary Osteoarthritis of Left Knee Abnormal Ekg Absolute Anemia Diastolic Dysfunction, Left Ventricle Chronic Renal Insufficiency, Stage 3 (Moderate) ([facility]) Moderate Episode of Recurrent Major Depressive Disorder ([facility]) Panic Disorder With Agoraphobia Chronic Post-Traumatic Stress Disorder (Ptsd) Type 2 Diabetes Mellitus With Stage 3 Chronic Kidney Disease, Without Long-Term Current Use of Insulin ([facility]) Current Outpatient Medications Medication Sig [...] (FIORICET) per capsule Take 1 capsule by mouthevery 6 hours as needed. 12 capsule 0 fluticasone (FLONASE) 50 mcg/actuation nasal spray Use 2 Sprays in each nostril once daily. Rinse mouth after use. 1 Bottle 11 Insulin [place], Disposable, (PEN NEEDLES) 31 gauge x 1/4 [...] distress. Alert and oriented all spheres. Normal affectand cognition. Speech normal. No deficits to learning [...] PANEL Ailyn Carson PA-C documented in this encounterSouthern [facility]02-[facility]-2023 Miscellaneous Notes* Telephone Encounter - Tyler Dixon APRN.RADIOLOGY CLERK - 05/14/2022 8:32 AM EST The following approved medication requests have been transmitted electronically. Requested Prescriptions Signed Prescriptions Disp Refills hydrOXYchloroQUINE (PLAQUENIL) 200 mg tablet 90 tablet 1 Sig: Take 1 tablet by mouth once daily. Authorizing Provider: TYLER DIXON APRN.TODD * Telephone Encounter - Ilda Luna MA - 05/14/2022 8:27 AM EST Patient has been identified by name and date of : Yes RX INSTRUCTIONS: Patient aware RX will be sent to pharmacy. No need to notify patient. Eye exam for Plaquenil toxicity received from [facility]. Exam date was 11/10/21. Exam shows [...] Final No results found for: URICACID Ilda Luna MA documented in this encounterSouthern [facility]02-04-2023 Miscellaneous Notes* Telephone Encounter - Kristal Jarrett Ma - 05/12/2022 11:31 AM EST Patient has been identified by name and date of : Yes Requested Prescriptions Pending Prescriptions Disp Refills empagliflozin (JARDIANCE) 10 mg tablet 30 tablet 5 Sig: Take 1 tablet by mouth once daily. Take 1 tablet once daily in the morning RX INSTRUCTIONS: Patient aware RX will be sent to pharmacy. No need to notify patient. Kristal Jarrett Ma documented in this encounterSouthern [facility]01-20-2023 Miscellaneous Notes* Telephone Encounter - Sara Serna RN - 04/27/2022 3:02 PM EST Agnes with [employer] calling and requested OV notes that include information regarding pt's spinal issues for medicare review purposes regarding pt's back brace. 01/01/22 OV note faxed as requested to FAX# [phone]. Sara Serna RN documented in this encounterSouthern [facility]01-10-2023 Miscellaneous Notes* Telephone Encounter - Stacie Higginbotham MA - 04/17/2022 8:40 AM EST Patient is notified of message below and verbalized understanding of instructions. Stacie Higginbotham MA * Telephone Encounter - Tyler Dixon APRN.TODD - 04/17/2022 8:30 AM EST Last HCQ eye exam was normal in 11/2021. Please remind the patient that she is due for follow up. The following approved medication requests have been transmitted electronically. Requested Prescriptions Signed Prescriptions Disp Refills hydrOXYchloroQUINE (PLAQUENIL) 200 mg tablet 90 tablet 0 Sig: Take 1 tablet by mouth once daily. Authorizing Provider: TYLER DIXON APRN.TODD * Telephone Encounter - Ilda Luna MA - 04/17/2022 8:11 AM EST Patient has been identified by name and date of : Yes RX INSTRUCTIONS: Patient aware RX will be sent to pharmacy. No need to notify patient. Eye exam for Plaquenil toxicity received from [facility]. Exam date was 09/16/2020. Exam showsno signs of Plaquenil toxicity. LAST APPOINTMENT: 04/28/2021 [...] Final No results found for: URICACID Ilda Luna MA documented in this encounterSouthern [facility]12-24-2022 Miscellaneous Notes* Telephone Encounter - Su Martinez LPN - 03/31/2022 10:18 AM EST Patient has been identified by name and date of : Yes Requested Prescriptions Pending Prescriptions Disp Refills sucralfate (CARAFATE) 1 gram tablet 90 tablet 5 Sig: Take 1 tablet by mouth three times daily before meals. RX INSTRUCTIONS: Patient aware RX will be sent to pharmacy. No need to notify patient. Su Martinez LPN documented in this encounterSouthern [facility] Center12-16-2022 Miscellaneous Notes* Telephone Encounter - James López LPN - 03/23/2022 4:02 PM EST Patient phones requesting refills as follows: Requested Prescriptions Pending Prescriptions Disp Refills furosemide (LASIX) 20 mg tablet 90 tablet 1 Sig: Take 1 tablet by mouth twice daily. Patient may adjust from baseline 40 mg daily up to 40 mg twice daily based on weight gain greater than 3 pounds plus either increased shortness of breath or increased swelling. ADRIANA 01/01/22 NOV 07/02/22 Please review and advise. James López LPN documented in this encounterSouthern [facility]11-30-2022 History of Present illness Narrative* Cary Loredo APRN.RADIOLOGY CLERK - 03/07/2022 3:53 PM EST Images from the original note were not [...] the next appointment. CC: tremors and anxiety HPI:Corinna Carr is a 66 year old Female with a history of MDD, panic disorder, tremors, and PTSDpresenting today for follow-up. Date of last visit: 12/13/2021 Plan from last visit: Discontinue Propanolol due to decrease in blood pressure Continue taking Lamictal at prescribed dose Continue taking medical marijuana for pain. Appears to help with mood and anxiety also. Follow up in 3 months Today Corinna shares that in the last 4 months, 4 of her friends became widows and her ex who she was friends with . She was trying to be there for her friends. Her mother has broken her wrist butshe has been able to get better and drive. She is independent. 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 She has decided to stop [...] not have any money to spend for Danny. Misses her close friend who moved away. She is not sure if she will be returning back after Danny. We discussed starting therapy to help with her mood and situational loss. She is not interested dueto her experience with therapy in the past. [...] which included preparing to see the patient, [id number] patient care, completing clinical documentation, and counseling and educating the patient/family/caregiver, ordering medications/labs. Cary Loredo APRN.CNP March 07, 2022 3:53 PM This note was partially generated using [employer] voice recognition system. Note was reviewed for accuracy. There may be minor misspellings or grammar miscues with [employer] voice recognition. documented in this encounterSouthern [facility]11-16-2022 History of Present illness Narrative* Saige Wallis APRN.CNP - 02/21/2022 1:18 PM EST Chief Complaint Patient presents with: Established Patient HPI: Corinna Carr is a 67 year old female [...] erythema in the body and antrum of thestomach without ulcerations. Biopsy of duodenal mucosa showed [...] depressed. Pt. is followed by a psychiatrist. Appetite:Off and on. Energy level:I have none. Denies fevers or recent illness. [...] (97 F) (Temporal) Ht 163.8 cm (5' 4.5) Wt 99.6 kg (219 lb 8oz) LMP 12/07/2007 BMI 37.10 kg/m APPEARANCE Well [...] - 4.00 k/uL 1.73 1.54 1.05 1.52 Barren% % 5.2 6.1 4.9 4.1 Abs Barren <0.87 k/uL 0.66 0.72 0.45 0.43 Eosin% [...] of iron deficiency anemia. She has been throughmultiple endoscopies and capsule endoscopy with no particular evidence of significant GI bleed. Shehas received multiple parenteral courses of iron over the last 10 years. Most recently early June of this year. -Her ferritin was improved when last checked. She was since hospitalized for congestive heart failure. She has lost 21 pounds since of hospitalization through diuresis. -Still has mild anemia. -Incidentally, reviewed old CT images from [facility]. The subcutaneous mass in theleft abdomen is fat necrosis. Calcified lesion that [...] and edited as necessary for today's visit. Saige Wallis APRN.TODD documented in this encounterSouthern [facility]09-07-2022 History of Present illness Narrative* Sandeep Tripp - 12/13/2021 3:29 PM EDT Images from the original note were not [...] in 3 months CC: tremors and anxiety HPI:Corinna Carr is a 66 year old Female with a history of MDD, panic disorder, tremors, and PTSDpresenting today for follow-up. Date of last visit: [...] continues to struggle with her tremors. Today Corinna reports her mood as okay Her mother has had recent fall and she has had to physically cares for her mother. We spoke with Cari (patient's daughter) over the phone for collateral. Her daughter reports that patient was not feeling well when taking the propranolol. The daughter reported that her blood pressurewas low. 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 Sandeep Tripp December 13, 2021 3:30 PM This note was partially generated using [employer] voice recognition system. Note was reviewed for accuracy. There may be minor misspellings or grammar miscues with Dragon voice recognition. Associated attestation - Cary Loredo APRN.CNP - 12/18/2021 7:42 PM EDT I, Cary Loredo APRN.CNP, personally performed the services described in this documentation. All medical record entries made by the [employer] student were at my direction and in my presence. I have reviewed the chart and discharge instructions (if applicable) and agree that the record reflects my personal performance and is accurate and complete. Cary Loredo APRN.CNP December 18, 2021 7:42 PM documented in this encounterSouthern [facility]09-01-2022 Miscellaneous Notes* Telephone Encounter - Tyler Dixon APRN.CNP - 12/07/2021 1:36 PM EDT The patient did not log in for her virtual appointment. I called and left a message for her to callback and reschedule if needed. Thanks, Tyler Dixon APRN.CNP documented in this encounterSouthern [facility] Center08-23-2022 Miscellaneous Notes* Telephone Encounter - Lizzie Weinstein - 11/28/2021 1:53 PM EDT Patient informed via VM (VM verified) and advised to call back with any questions or concerns. Lizzie Weinstein * Telephone Encounter - Ailyn Carson PA-C - 11/28/2021 1:15 PM EDT Remind she should not take other medication in the same hour as carafate as it can absorb them. The following approved medication requests have been transmitted electronically. Requested Prescriptions Signed Prescriptions Disp Refills sucralfate (CARAFATE) 1 gram tablet 90 tablet 5 Sig: Take 1 tablet by mouth three times daily before meals. Authorizing Provider: Ailyn CARSON PA-C * Telephone Encounter - Ailyn Cruz RN - 11/28/2021 12:25 PM EDT Patient reports her refill request for sucralfate 1 gr 1 tab 3 x's day, was denied by pcp office. Patient does not understand why. Reports she has not taken it for 1-2 weeks and needs it. Reports sheis feeling nauseous and cannot eat anything but crackers. Reports she is also losing weight. Askingprovider to please send refill to pharmacy. Pended. Last ov: 09-29-21 documented in this encounterSouthern [facility]08-22-2022 Miscellaneous Notes* Telephone Encounter - James López LPN - 11/27/2021 8:53 AM EDT Patient phones requesting refills as follows: Requested Prescriptions Pending Prescriptions Disp Refills omeprazole (PRILOSEC) 40 mg capsule 90 capsule 1 Sig: Take 1 capsule by mouth once daily. ADRIANA 09/29/21 NOV 01/01/22 Please review and advise. James López LPN documented in this encounterSouthern [facility] Center08-15-2022 Miscellaneous Notes* Telephone Encounter - Warren Ca MA - 11/20/2021 10:08 AM EDT Duplicate order. Warren Ca MA documented [facility] this [facility]08-15-2022 Miscellaneous Notes* Telephone Encounter - Warren Ca MA - 11/20/2021 10:06 AM EDT Patient has been identified by name and date of : Yes Requested Prescriptions Pending Prescriptions Disp Refills sucralfate (CARAFATE) 1 gram tablet [Pharmacy Med Name: Sucralfate 1 GM Oral Tablet] 42 tablet 0 Sig: TAKE 1 TABLET BY MOUTH THREE TIMES DAILY BEFORE MEAL(S) RX INSTRUCTIONS: Patient aware RX will be sent to pharmacy. No need to notify patient. Warren Ca MA Adriana: 09/2021 Nov: 12/2021 Last refill: 09/2021 documented in this encounterSouthern [facility]08-01-2022 Miscellaneous Notes* Telephone Encounter - Desirae Hernandez Ma - 11/06/2021 2:36 PM EDT Last office visit: 09/29/21 F/u scheduled: 01/01/22 Desirae Hernandez Ma documented in this encounterSouthern [facility] Center07-15-2022 Miscellaneous Notes* Telephone Encounter - James López LPN - 10/20/2021 12:54 PM EDT Patient phones requesting refills as follows: Pending [...] advise. James López LPN documented in this encounterSouthern [facility] Center06-30-2022 Miscellaneous Notes* Telephone Encounter - Tyler Dixon APRN.RADIOLOGY CLERK - 10/05/2021 7:00 AM EDT Duplicate request. Refused Prescriptions Disp Refills hydrOXYchloroQUINE (PLAQUENIL) 200 mg tablet 90 tablet 0 Sig: Take 1 tablet by mouth once daily. JON: No Refused By: TYLER DIXON Reason for Refusal: A Refill not appropriate Tyler Dixon APRN.RADIOLOGY CLERK * Telephone Encounter - Stacie Higginbotham MA - 10/04/2021 3:58 PM EDT Patient's request for medication needs to be refused. Duplicate request. Pending Prescriptions Disp Refills HYDROXYCHLOROQUINE 200 MG TABLET 90 tablet 0 Sig: Take 1 tablet by mouth once daily. JON: No Thanks, Stacie Higginbotham MA documented in this encounterSouthern [facility] Center06-30-2022 Miscellaneous Notes* Telephone Encounter - Ailyn Carson PA-C - 10/05/2021 6:29 AM EDT Has labs ordered as discussed for02/17/2022 I will add a urine to follow protein [facility] Get Medical Advice on 10/04/21 ALBUMIN/CREAT RATIO RND UR Francesco Zamora PA-C * Telephone Encounter - Desirae Hernandez Ma - 10/04/2021 7:31 PM EDT See mychart message. Any other labs besides the BMP? Pt had A1c, urine/creat, and Magnesium labs done yesterday. Desirae Hernandez Ma documented in this encounterSouthern [facility] Center06-29-2022 Miscellaneous Notes* Telephone Encounter - Su Martinez LPN - 10/04/2021 3:53 PM EDT Left detailed message for patient. * Telephone Encounter - Jaki Verdugo MD - 10/04/2021 3:43 PM EDT Please let her know * Telephone Encounter - James López LPN - 10/04/2021 3:11 PM EDT Phoned lab client services, they are unable to add on bmp. Pt will need redrawn. James López LPN * Telephone Encounter - Jaki Verdugo MD - 10/04/2021 2:54 PM EDT It looks like a repeat bmp was not ordered with labs done yesteray, (I think Francesco may have wanted it)-are we able to add * Telephone Encounter - Bryant Garcia RN - 10/04/2021 1:18 PM EDT Pt called in and reports she was waiting on Francesco CUEVA to call her after lab results to come back and let her know if she should start taking the Jardiance. Per Pt ok to sent her a [facility] message letting her know. Start Empaglifozin if [...] Pt message to advise. documented in this encounterSouthern [facility] Center06-24-2022 Miscellaneous Notes* Telephone Encounter - Esmer aSntana LPN - 09/29/2021 4:18 PM EDT Pt. called and went over instructions by Francesco to get labs done before she starts the Jardiance. Ok to start the Trulicity. Esmer Santana LPN documented in this encounterSouthern [facility] Center06-24-2022 Instructions* Patient Instructions* Ailyn Carson PA-C - 09/29/2021 3:08 PM EDT Dulaglutide: Patient drug information Access [employer] Online for additional drug information, tools, and databases. Copyright 7753-6895 [employer]. All rights reserved. 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 What are some things I need to know or do while I take this drug? Tell all of your health care providers that you take this drug. This includes your doctors, nurses,pharmacists, and dentists. Follow the diet and workout [...] of stress such as fever, infection, injury, orsurgery. A change in physical activity, exercise, or diet may also affect blood sugar. Kidney problems have happened with drugs like this one. Sometimes, kidney problems have needed to be treated in the hospital. Dialysis has also been needed. Talk with your doctor. Tell your doctor if you have upset stomach, throwing up, diarrhea, or too much sweating. Losing toomuch fluid may raise your chance of kidney [...] , plan on getting , or are breast- feeding. You will need to talk about the [...] right away if you have any of thefollowing signs or symptoms that may be related to a very bad side effect: Signs of an allergic reaction, like rash; hives; itching; red, swollen, blistered, or peeling skin with or without fever; wheezing; tightness in the chest or throat; trouble breathing, swallowing, ortalking; unusual hoarseness; or swelling of the mouth, [...] no side effects or only have minor sideeffects. Call your doctor or get medical help [...] all information given to you. Follow all instructionsclosely. It is given as a shot into the fatty part of the skin on the top of the thigh, belly area, or upperarm. Take with or without food. Drink lots [...] If you have any questions about this drug,please talk with your doctor, nurse, pharmacist, or other health care provider. If you think there has been an overdose, call your poison control center or get medical care right away. Be ready to tell or show what was taken, how much, and when it happened. Use of [employer] is subject to the Subscription and License Agreement. Topic 30506 Version 65.0 Empagliflozin: Patient drug information Access [employer] for additional drug information, tools, and databases. Copyright 7963-5924 [employer]. All rights reserved. (For additional information see Empagliflozin: Drug information) You must carefully read the Consumer Information [...] or change the dose of any drug withoutchecking with your doctor. What are some things I need to know or do while I take this drug? Tell all of your health care providers that you take this drug. This includes your doctors, nurses,pharmacists, and dentists. This drug may need to be stopped before certain types of surgery as yourdoctor has told you. If this drug is [...] your health care providers and lab workers thatyou take this drug. It may be harder to control blood sugar during times of stress such as fever, infection, injury, orsurgery. A change in physical activity, exercise, or [...] right away if you have any of thefollowing signs or symptoms that may be related to a very bad side effect: Signs of an allergic reaction, like rash; hives; itching; red, swollen, blistered, or peeling skin with or without fever; wheezing; tightness in the chest or throat; trouble breathing, swallowing, ortalking; unusual hoarseness; or swelling of the mouth, [...] no side effects or only have minor sideeffects. Call your doctor or get medical help [...] all information given to you. Follow all instructionsclosely. Take with or without food. Take in [...] If you have any questions about this drug,please talk with your doctor, nurse, pharmacist, or other health care provider. If you think there has been an overdose, call your poison control center or get medical care right away. Be ready to tell or show what was taken, how much, and when it happened. Last Reviewed [id number] Consumer Information Use and Disclaimer This information [...] healthcare provider for complete information about the risksand benefits of using this medicine. The use of this information is governed by the [employer] End User License Agreement, available at https://www.[employer]en/solutions/[employer]/about/tea. 2020 [employer]. and its affiliates and/or licensors. All rights reserved. Use of [employer] is subject to the Subscription and License Agreement. Topic 73419 Version 70.0 Check blood sugars fasting a.m. and 2h after evening meal x 4 days/ week and report results to office by phone or MyChart. documented in this encounterSouthern [facility] Center06-24-2022 History of Present illness Narrative* Ailyn Carson PA-C - 09/29/2021 2:20 PM EDT 66 year old female with c/o here [...] <0.01 Chronic renal insufficiency, stage 3 (moderate) (formerly [facility]) Component Latest Ref Rng & Units 12/11/2019 [...] disorder (ptsd) Interval history: Following with Cary Loredo CNP psychiatry Current medications: Propranolol 20 mg [...] RLS Iron deficiency anemia Following with hematology Saige Wallis CNP Current medications: Gabapentin 300 mg [...] Lymph 1.00 - 4.00 k/uL 1.54 1.05 Barren% % 6.1 4.9 Abs Barren <0.87 k/uL 0.72 0.45 Eosin% % 4.6 [...] HISTORY Diagnosis Date Aspiration pneumonia (HCC) 04/2019 [facility] DDD (degenerative disc disease) Depression Diabetes mellitus without mention of complication Fibromyalgia Hyperlipidemia Iron deficiency anemia, unspecified Dr Duong Lupus (HCC) Obesity Vitamin D deficiency 2012 PAST SURGICAL HISTORY Procedure Laterality Date ARTHRP KNE CONDYLE&PLATU MEDIAL&LAT COMPARTMENTS Left 02/25/[address] CARDIAC CATH 2007 no stenosis minimal plaque [...] Neuropathy, With Long-Term Current Use of Insulin (Hcc) Primary Osteoarthritis of Left Knee Abnormal Ekg Absolute Anemia Diastolic Dysfunction, Left Ventricle Chronic Renal Insufficiency, Stage 3 (Moderate) (Hcc) Major Depressive Disorder, Recurrent Severe Without Psychotic Features ([facility]) Panic Disorder With Agoraphobia Chronic [...] (FIORICET) per capsule Take 1 capsule by mouthevery 6 hours as needed. 12 capsule 0 fluticasone (FLONASE) 50 mcg/actuation nasal spray Use 2 Sprays in each nostril once daily. Rinse mouth after use. 1 Bottle 11 Insulin [place], Disposable, (PEN NEEDLES) 31 gauge x 1/4 [...] with long-term current use of insulin (HCC) -ICD9: 250.60, 357.2, V58.67, ICD10: E11.40, Z79.4 Over [...] BLD Ailyn Carson PA-C documented in this encounter[facility] Instructions* Patient Instructions* Leelee Farrar APRN.TODD - 09/22/2021 3:23 PM EDT 1. Decrease the propranolol to 1/2 tab twice daily. 2. Get a new battery for your glucometer. 3. Recheck in 1 week. documented in this encounterSouthern [facility]06-17-2022 History of Present illness Narrative* Leelee Farrar APRN.TODD - 09/22/2021 2:50 PM EDT This is a 66 year old female who presents today with: No chief complaint on file. HISTORY OF PRESENT ILLNESS: Corinna Carr is a 66 year old female. No chief complaint on file. Refers that she was in the ER on 09/15/21. Refers that she had a fall. Twisted her left foot and knee. She had x-rays completed of the left knee, left tibia and fibula, and left foot. Although his x-rayshowed no acute fractures or dislocations. Knee hardware [...] HISTORY Diagnosis Date Aspiration pneumonia (HCC) 04/2019 [facility] DDD (degenerative disc disease) Depression Diabetes mellitus without mention of complication Fibromyalgia Hyperlipidemia Iron deficiency anemia, unspecified Dr Duong Lupus ([facility]) Obesity Vitamin D deficiency 2012 PAST SURGICAL HISTORY Procedure Laterality Date ARTHRP KNE CONDYLE&PLATU MEDIAL&LAT COMPARTMENTS Left 02/25/[address] CARDIAC CATH 2007 no stenosis minimal plaque [...] (FIORICET) per capsule Take 1 capsule by mouthevery 6 hours as needed. fluticasone (FLONASE) 50 mcg/actuation nasal spray Use 2 Sprays in each nostril once daily. Rinse mouth after use. Insulin [place], Disposable, (PEN NEEDLES) 31 gauge x 1/4 [...] neuropathy, with long-term current use of insulin ([facility]) -ICD9: 250.60, 357.2, V58.67, ICD10: E11.40, Z79.4 Encouraged [...] improvement. Leelee Farrar APRN.TODD documented in this encounterSouthern [facility]05-27-2022 Instructions* Patient Instructions* Cary Loredo APRN.CNP - 09/01/2021 11:48 AM EDT Hello Corinna, It was good to talk with you [...] - Call the National Suicide Hotline at 7-307-GYDYDGB ( ) or 8-046-191-TALK (8588) - Text 4HOPE to 000886 Medication Update: 1. Propranolol (Inderal) 20 mg - take 1 tablet twice daily. 2. Lamictal (Lamotrigine) 100 mg - take 1 tablet once daily. Next appointment: --Schedule in 4 to 5 weeks or sooner if needed -- You may call the department appointment line at [phone] to schedule your appointment. -- Please call my nurse Vero at [phone] or send me a message in [facility] with any questions or concerns between appointments. documented in this encounterSouthern [facility] Center05-27-2022 History of Present illness Narrative* Cary Loredo APRN.CNP - 09/01/2021 10:31 AM EDT Images from the original note were not [...] patient consent, visit was performed virtually. HPI: Corinna Carr is a 66 year old Female [...] Asked the patient's daughter to be a partof the appointments due to patient's concerns with worsening memory and daughter helping the patient manage her medications. 4. Consider neuropsychological testing if depression improves but cognitive concerns are still present. 5. Follow-up with this provider in 4 weeks. Corinna was present for this appointment along with her daughter Cari. She reports that her mood is low. Shares that the tremors are less but are still present. Corinna shares that she is more stressed due to her younger son being in the police custody due to a serious felony charge. She feels that she has been engaged in a lot of comfort eating to deal with anxiety. Patient and daughter mostly described her anxiety manifestations to be somatic in nature. We discussed utilizing propranolol to manage the symptoms. Corinna denies episodes of dizziness. Her iron level [...] which included preparing to see the patient, [id number] patient care, completing clinical documentation, and counseling and educating the patient/family/caregiver, ordering medications/labs. Cary Loredo APRN.[facility] September 01, 2021 10:31 AM documented in this encounterSouthern [facility] Center05-18-2022 Miscellaneous Notes* Telephone Encounter - Yin Da Silva LPN - 08/23/2021 7:26 AM EDT Patient phones requesting refills as follows: Pending Prescriptions Disp Refills CHOLECALCIFEROL (VITAMIN D3) 1,250 MCG (50,000 UNIT) CAPSULE 4 capsule 0 Sig: Take 1 capsule by mouth once a week JON: Yes ADRIANA-08/17/21 labs-08/15/21 NOV-none med filled 07/24/21 Please review and advise. Yin Da Silva LPN documented in this encounterSouthern [facility] Center05-12-2022 History of Present illness Narrative* Ailyn Carson PA-C - 08/17/2021 3:59 PM EDT 66 year old female with c/o here [...] neuropathy, with long-term current use of insulin (formerly [facility]) (primary encounter diagnosis) Current medications: Stopped metformin Insulin Lantus 60u SC Taking medication as directed consistently? Yes Medical Issues / Complications: hypertension, hyperlipidemia and peripheral neuropathy Checking blood sugars at home? Checks a little: running lowest 130-highest 160. Watching diet? Last 2 days on water diet.I need iron so chewing ice. Seeing Saige Wallis who is to be setting up infusions. Physical Activity: Regular Hypoglycemic spells? No Any visual disturbance? No Chest pain? No New numbness, tingling or loss of sensation? none Any recent foot problems, sores or rashes? Yes seeing [facility] Any recent or sudden weight loss? Last 6 weeks gained from 1`20 to 131lbs- improved with water pills. SPB on laying down Change in urination? No. If yes: Any recent illness? No Last eye exam: [facility]. Last foot exam: due. HBA1C: Hemoglobin [...] Fatigue, unspecified type Chronic depression Seeing Cary [facility]ob[facility]ark On Lamotrigine 150mg riri Has helped with [...] Dr. Sommers sent to spine surgeon in [place] Talked about a morphine pump. Has spinal [...] HISTORY Diagnosis Date Aspiration pneumonia (HCC) 04/2019 [facility] DDD (degenerative disc disease) Depression Diabetes mellitus without mention of complication Fibromyalgia Hyperlipidemia Iron deficiency anemia, unspecified Dr Duong Lupus (HCC) Obesity Vitamin D deficiency 2012 PAST SURGICAL HISTORY Procedure Laterality Date ARTHRP KNE CONDYLE&PLATU MEDIAL&LAT COMPARTMENTS Left 02/25/[address] CARDIAC CATH 2007 no stenosis minimal plaque [...] Neuropathy, With Long-Term Current Use of Insulin ([facility]) Primary Osteoarthritis of Left Knee Abnormal Ekg Absolute Anemia Diastolic Dysfunction, Left Ventricle Chronic Renal Insufficiency, Stage 3 (Moderate) ([facility]) Major Depressive Disorder, Recurrent Severe Without Psychotic Features ([facility]) Panic Disorder With Agoraphobia Chronic [...] tablet by mouth twice daily with meals. 180tablet 3 acetaminophen 325 mg-caffeine 40 mg-butalbital 50 mg (FIORICET) per capsule Take 1 capsule by mouthevery 6 hours as needed. 12 capsule 0 fluticasone (FLONASE) 50 mcg/actuation nasal spray Use 2 Sprays in each nostril once daily. Rinse mouth after use. 1 Bottle 11 Insulin [place], Disposable, (PEN NEEDLES) 31 gauge x 1/4 [...] distress. Alert and oriented all spheres. Normal affectand cognition. Speech normal. No deficits to learning [...] with long-term current use of insulin (HCC) -ICD9: 250.60, 357.2, V58.67, ICD10: E11.40, Z79.4 (primary [...] I51.9 No current signs CHF Follows with [facility] 14. Chronic renal insufficiency, stage 3 (moderate) (HCC) - ICD9: 585.3, ICD10: N18.30 Needs recheck, labs above. 15. Major depressive disorder, recurrent severe without psychotic features (HCC) - ICD9: 296.33, ICD10: F33.2 Following with psych, relatively stable. 16. Panic disorder with agoraphobia - ICD9: 300.21, ICD10: F40.01 As above. Follow-up 6 months and as needed. Ailyn Carson PA-C documented in this encounterSouthern [facility]05-12-2022 Miscellaneous Notes* Telephone Encounter - Libby Burton Pss - 08/17/2021 2:04 PM EDT Message left for patient to contact office. First iron scheduled. Please confirm with patient, document and close encounter. * Telephone Encounter - Carol Winston Pss - 08/17/2021 9:47 AM EDT Patient called to schedule iron treatment can be reached at [phone] Carol Winston Pss * Telephone Encounter - Alannah Bella - 08/16/2021 1:56 PM EDT Per Saige in a separate phone note: Please inform pt. that her iron studies are low. Iron as ordered yesterday. CBC/iron studies in 2-3 months. OV/CBC/iron studies in 6 months. Thank you. Saige Wallis APRN.TODD Left message for patient to return call to schedule above. Alannah Bella * Telephone Encounter - Kia Gross - 08/16/2021 1:15 PM EDT Patient returned office and would like someone to call her back to schedule. Thank you * Telephone Encounter - Alannah Bella - 08/16/2021 12:36 PM EDT Left message for patient to return call. When patient calls, please schedule 5 iron sucrose infusions, document and close this note. Alannah Bella documented in this encounterSouthern [facility]05-11-2022 Miscellaneous Notes* Telephone Encounter - Alannah Bella - 08/16/2021 1:56 PM EDT See other phone note dated today's date (08/16/21). Alannah Bella * Telephone Encounter - Saige Wallis APRN.RADIOLOGY CLERK - 08/16/2021 1:16 PM EDT Please inform pt. that her iron studies are low. Iron as ordered yesterday. CBC/iron studies in 2-3 months. OV/CBC/iron studies in 6 months. Thank you. Saige Wallis APRN.TODD documented in this encounterSouthern [facility]05-10-2022 History of Present illness Narrative* Saige Wallis APRN.CNP - 08/15/2021 1:34 PM EDT Chief Complaint Patient presents with: Established Patient HPI: Corinna Carr is a 66 year old female [...] erythema in the body and antrum of thestomach without ulcerations. Biopsy of duodenal mucosa showed [...] sucrose 2020. Today isn't a good day. Appetite:I can go most of the day and not eat but once I start I can't stop. Energy level:None. Once in awhile I have a good [...] normoactive, soft, non-tender, non-distended, without organomegaly or palpablemasses EXTREMITIES No edema NEURO Awake, alert and [...] 1.00 - 4.00 k/uL 1.73 1.54 1.05 Barren% % 5.2 6.1 4.9 Abs Barren <0.87 k/uL 0.66 0.72 0.45 Eosin% % [...] of iron deficiency anemia. She has been throughmultiple endoscopies and capsule endoscopy with no particular evidence of significant GI bleed. Shehas received multiple parenteral courses of iron over the last 10 years. Most recently early June of this year. -Her ferritin was improved when last checked. She was since hospitalized for congestive heart failure. She has lost 21 pounds since of hospitalization through diuresis. -Still has mild anemia. -Incidentally, reviewed old CT images from [facility]. The subcutaneous mass in theleft abdomen is fat necrosis. Calcified lesion that was stable in 2017 and April [address] imaging. I [...] and edited as necessary for today's visit. Saige Wallis APRN.TODD documented in this encounterSouthern [facility]05-09-2022 Miscellaneous Notes* Telephone Encounter - Chasity Dwyer - 08/14/2021 3:[address] new orders for Ferritin, Iron +TIBC, and CBC + DIFF. Orders released inappropriately during check in. documented in this [facility]05-09-2022 Miscellaneous Notes* Telephone Encounter - Kristal Jarrett Ma - 08/14/2021 3:24 PM EDT Please file order documented in this [facility]05-06-2022 Miscellaneous Notes* Telephone Encounter - Eugenia Kowalski LPN - 08/11/2021 1:04 PM EDT adriana-- 02/08/21 Next office visit 08/17/21 Last refill-- 08/04/21 30 with 0 refills Last labs-- 08/01/21 documented in this [facility]05-02-2022 Miscellaneous Notes* Telephone Encounter - THU Sauceda - 08/07/2021 9:57 AM EDT Patient has been identified by name and date of : Yes Patient phones for refill(s): Pending Prescriptions Disp Refills PRAVASTATIN 20 MG TABLET 90 tablet 3 Sig: Take 1 tablet by mouth daily at bedtime. JON: No Date of last office visit in primary care: VV 02/08/2021 ADRIANA 09/14/2020 Appointment scheduled 08/17/2021 Last 2 Encounter Wt Readings: Date: Wt: 07/12/2021 102.5 kg (226 lb) 05/18/2021 98 kg (216 lb) Please advise. Thank you. THU Sauceda documented in this [facility]04[facility]29-[facility] Miscellaneous Notes* Telephone Encounter - Yin Da Silva LPN - 08/04/2021 2:26 PM EDT Patient phones requesting refills as follows: Pending Prescriptions Disp Refills FUROSEMIDE 20 MG TABLET 30 tablet 0 Sig: Take 1 tablet by mouth twice daily. Patient may adjust from baseline 40 mg daily up to 40 mg twice daily based on weight gain greater than 3 pounds plus either increased shortness of breath or increased swelling. JON: No ADRIANA-02/08/21 Labs-05/15/21 NOV-08/17/21 Please review and advise. Yin Da Silva LPN documented in this [facility]04-05-[facility]22 Miscellaneous Notes* Telephone Encounter - Tyler Dixon APRN.RADIOLOGY CLERK - 07/11/2021 8:23 AM EDT The following approved medication requests have been transmitted electronically. Signed Prescriptions Disp Refills hydrOXYchloroQUINE (PLAQUENIL) 200 mg tablet 90 tablet 0 Sig: Take 1 tablet by mouth once daily. JON: No Authorizing Provider: TYLER DIXON APRN.TODD * Telephone Encounter - Ilda Luna MA - 07/11/2021 8:05 AM EDT Patient has been identified by name and date of : Yes RX INSTRUCTIONS: Patient aware RX will be sent to pharmacy. No need to notify patient. Eye exam for Plaquenil toxicity received from [facility]. Exam date was 09/16/2020. Exam showsno signs of Plaquenil toxicity. LAST APPOINTMENT: 04/28/2021 [...] Final No results found for: URICACID Ilda Luna MA documented in this encounterSouthern [facility]04-05-2022 Miscellaneous Notes* Telephone Encounter - Warren Ca MA - 07/11/2021 8:09 AM EDT Patient has been identified by name and date of : Yes Pending Prescriptions Disp Refills SUCRALFATE 1 GRAM TABLET 42 tablet 2 Sig: Take 1 tablet by mouth three times daily before meals. JON: No RX INSTRUCTIONS: Patient aware RX will be sent to pharmacy. No need to notify patient. Warren Ca MA Adriana: 02/2021 No appointment scheduled Last refill; 04/29 documented in this encounterSouthern [facility]04-04-2022 Miscellaneous Notes* Telephone Encounter - Yin Da Silva LPN - 07/10/2021 10:11 AM EDT Patient phones requesting refills as follows: Pending Prescriptions Disp Refills LANTUS SOLOSTAR U-100 INSULIN 100 UNIT/ML (3 ML) SUBCUTANEOUS PEN 5 Pen 11 Sig: Inject 60 Units subcutaneously daily at bedtime. JON: No ADRIANA-02/08/21 Labs-05/15/21 NOV-none med filled 06/15/20 Please review and advise. Yin Da Silva LPN documented in this encounterSouthern [facility] Center01-27-2021 History of Present illness Narrative* Letty HerculesRt), Tech - 05/04/2020 12:20 PM EST Radiology Service Progress Note PATIENT NAME: Corinna Carr DATE OF SERVICE: May 04, 2020 TIME: 12:35 PM PATIENT IDENTITY VERIFICATION COMPLETED USING TWO (2) IDENTIFIERS: Name and Date of confirmedby patient verbally. FALL SCREENING: Has the patient had 2 falls in the last year or 1 fall with injury or currently using an Ambulatory Assistive Device (Walker, Cane, Wheelchair, Crutches, etc.)? Yes, Patient High Riskfor Falls What interventions were put in place to prevent falls during this visit? Instructed Patient to Callfor Help if Needed, Offered Assistance with Transfers/Clothing and Increased Observations by Caregivers PATIENT GENDER DATA: Female. status: : No status: NO. PATIENT RELEVANT IMPLANT DATA REVIEWED: Yes RADIOLOGY DEPARTMENT: General X-ray: Exam(s) Completed: Chest X-Ray PERIPHERAL IV DATA: Not applicable SIGNED BY: RT Tom May 04, 2020 12:35 PM documented in this encounterSouthern [facility]01-01-2020 History of Past illness Narrative* Problem Noted Date Resolved Date Aspiration pneumonia 04/08/2019 10/26/2020 Overview: [facility] Type 2 diabetes mellitus wit hout complication, [...] of this encounter (statuses as of 07/10/2021) [facility] of [facility] illness Narrative* Problem Noted Date Resolved Date Aspiration pneumonia 04/08/2019 10/26/2020 Overview: [facility] Type 2 diabetes mellitus wit hout complication, [...] of this encounter (statuses as of 07/11/2021) [facility] of [facility] illness Narrative* Problem Noted Date Resolved Date Aspiration pneumonia 04/08/2019 10/26/2020 Overview: [facility] Type 2 diabetes mellitus wit hout complication, [...] of this encounter (statuses as of 07/11/2021) [facility] of [facility] illness Narrative* Problem Noted Date Resolved Date Aspiration pneumonia 04/08/2019 10/26/2020 Overview: [facility] Type 2 diabetes mellitus wit hout complication, [...] of this encounter (statuses as of 08/04/2021) [facility] Narrative* Problem Noted Date Resolved Date Aspiration pneumonia 04/08/2019 10/26/2020 Overview: [facility] Type 2 diabetes mellitus wit hout complication, [...] of this encounter (statuses as of 08/04/2021) [facility] Narrative* Problem Noted Date Resolved Date Aspiration pneumonia 04/08/2019 10/26/2020 Overview: [facility] Type 2 diabetes mellitus wit hout complication, [...] of this encounter (statuses as of 08/07/2021) [facility] Narrative* Problem Noted Date Resolved Date Aspiration pneumonia 04/08/2019 10/26/2020 Overview: [facility] Type 2 diabetes mellitus wit hout complication, [...] of this encounter (statuses as of 08/11/2021) [facility] Narrative* Problem Noted Date Resolved Date Aspiration pneumonia 04/08/2019 10/26/2020 Overview: [facility] Type 2 diabetes mellitus wit hout complication, [...] of this encounter (statuses as of 08/14/2021) [facility] Narrative* Problem Noted Date Resolved Date Aspiration pneumonia 04/08/2019 10/26/2020 Overview: [facility] Type 2 diabetes mellitus wit hout complication, [...] of this encounter (statuses as of 08/14/2021) [facility] of [facility] Narrative* Problem Noted Date Resolved Date Aspiration pneumonia 04/08/2019 10/26/2020 Overview: [facility] Type 2 diabetes mellitus wit hout complication, [...] of this encounter (statuses as of 08/16/2021) [facility] Narrative* Problem Noted Date Resolved Date Aspiration pneumonia 04/08/2019 10/26/2020 Overview: [facility] Type 2 diabetes mellitus wit hout complication, [...] of this encounter (statuses as of 08/16/2021) [facility] Narrative* Problem Noted Date Resolved Date Aspiration pneumonia 04/08/2019 10/26/2020 Overview: [facility] Type 2 diabetes mellitus wit hout complication, [...] of this encounter (statuses as of 08/18/2021) [facility] Narrative* Problem Noted Date Resolved Date Aspiration pneumonia 04/08/2019 10/26/2020 Overview: [facility] Type 2 diabetes mellitus wit hout complication, [...] of this encounter (statuses as of 08/23/2021) [facility] Narrative* Problem Noted Date Resolved Date Aspiration pneumonia 04/08/2019 10/26/2020 Overview: [facility] Type 2 diabetes mellitus wit hout complication, [...] of this encounter (statuses as of 08/24/2021) [facility] Narrative* Problem Noted Date Resolved Date Aspiration pneumonia 04/08/2019 10/26/2020 Overview: [facility] Type 2 diabetes mellitus wit hout complication, [...] of this encounter (statuses as of 08/28/2021) [facility] Narrative* Problem Noted Date Resolved Date Aspiration pneumonia 04/08/2019 10/26/2020 Overview: [facility] Type 2 diabetes mellitus wit hout complication, [...] of this encounter (statuses as of 08/30/2021) [facility] Narrative* Problem Noted Date Resolved Date Aspiration pneumonia 04/08/2019 10/26/2020 Overview: [facility] Type 2 diabetes mellitus wit hout complication, [...] of this encounter (statuses as of 09/01/2021) [facility] Narrative* Problem Noted Date Resolved Date Aspiration pneumonia 04/08/2019 10/26/2020 Overview: [facility] Type 2 diabetes mellitus wit hout complication, [...] of this encounter (statuses as of 09/01/2021) [facility] Narrative* Problem Noted Date Resolved Date Aspiration pneumonia 04/08/2019 10/26/2020 Overview: [facility] Type 2 diabetes mellitus wit hout complication, [...] of this encounter (statuses as of 09/11/2021) [facility] Narrative* Problem Noted Date Resolved Date Aspiration pneumonia 04/08/2019 10/26/2020 Overview: [facility] Type 2 diabetes mellitus wit hout complication, [...] of this encounter (statuses as of 09/12/2021) [facility] Narrative* Problem Noted Date Resolved Date Aspiration pneumonia 04/08/2019 10/26/2020 Overview: [facility] Type 2 diabetes mellitus wit hout complication, [...] of this encounter (statuses as of 09/22/2021) [facility] Narrative* Problem Noted Date Resolved Date Aspiration pneumonia 04/08/2019 10/26/2020 Overview: [facility] Type 2 diabetes mellitus wit hout complication, [...] of this encounter (statuses as of 09/29/2021) [facility] Narrative* Problem Noted Date Resolved Date Aspiration pneumonia 04/08/2019 10/26/2020 Overview: [facility] Type 2 diabetes mellitus wit hout complication, [...] of this encounter (statuses as of 09/30/2021) [place] [address]-01-2020 History of Past illness Narrative* Problem Noted Date Resolved Date Aspiration pneumonia 04/08/2019 10/26/2020 Overview: [facility] Type 2 diabetes mellitus wit hout complication, [...] of this encounter (statuses as of 10/02/2021) [facility] Narrative* Problem Noted Date Resolved Date Aspiration pneumonia 04/08/2019 10/26/2020 Overview: [facility] Type 2 diabetes mellitus wit hout complication, [...] of this encounter (statuses as of 10/04/2021) [facility]2020 History of Past illness Narrative* Problem Noted Date Resolved Date Aspiration pneumonia 04/08/2019 10/26/2020 Overview: [facility] Type 2 diabetes mellitus wit hout complication, [...] of this encounter (statuses as of 10/05/2021) [facility]2020 History of Past illness Narrative* Problem Noted Date Resolved Date Aspiration pneumonia 04/08/2019 10/26/2020 Overview: [facility] Type 2 diabetes mellitus wit hout complication, [...] of this encounter (statuses as of 10/05/2021) [facility]2020 History of Past illness Narrative* Problem Noted Date Resolved Date Aspiration pneumonia 04/08/2019 10/26/2020 Overview: [facility] Type 2 diabetes mellitus wit hout complication, [...] of this encounter (statuses as of 10/20/2021) [facility] History of Past illness Narrative* Problem Noted Date Resolved Date Aspiration pneumonia 04/08/2019 10/26/2020 Overview: [facility] Type 2 diabetes mellitus wit hout complication, [...] of this encounter (statuses as of 11/06/2021) [facility] History of Past illness Narrative* Problem Noted Date Resolved Date Aspiration pneumonia 04/08/2019 10/26/2020 Overview: [facility] Type 2 diabetes mellitus wit hout complication, [...] of this encounter (statuses as of 11/06/2021) [facility] History of Past illness Narrative* Problem Noted Date Resolved Date Aspiration pneumonia 04/08/2019 10/26/2020 Overview: [facility] Type 2 diabetes mellitus wit hout complication, [...] of this encounter (statuses as of 11/20/2021) [facility] History of Past illness Narrative* Problem Noted Date Resolved Date Aspiration pneumonia 04/08/2019 10/26/2020 Overview: [facility] Type 2 diabetes mellitus wit hout complication, [...] of this encounter (statuses as of 11/20/2021) [facility] History of Past illness Narrative* Problem Noted Date Resolved Date Aspiration pneumonia 04/08/2019 10/26/2020 Overview: [facility] Type 2 diabetes mellitus wit hout complication, [...] of this encounter (statuses as of 11/27/2021) [facility] History of Past illness Narrative* Problem Noted Date Resolved Date Aspiration pneumonia 04/08/2019 10/26/2020 Overview: [facility] Type 2 diabetes mellitus wit hout complication, [...] of this encounter (statuses as of 11/28/2021) [facility] History of Past illness Narrative* Problem Noted Date Resolved Date Aspiration pneumonia 04/08/2019 10/26/2020 Overview: [facility] Type 2 diabetes mellitus wit hout complication, [...] of this encounter (statuses as of 12/07/2021) [facility] History of Past illness Narrative* Problem Noted Date Resolved Date Aspiration pneumonia 04/08/2019 10/26/2020 Overview: [facility] Type 2 diabetes mellitus wit hout complication, [...] of this encounter (statuses as of 12/07/2021) [facility] History of Past illness Narrative* Problem Noted Date Resolved Date Aspiration pneumonia 04/08/2019 10/26/2020 Overview: [facility] Type 2 diabetes mellitus wit hout complication, [...] of this encounter (statuses as of 12/18/2021) [facility] History of Past illness Narrative* Problem Noted Date Resolved Date Aspiration pneumonia 04/08/2019 10/26/2020 Overview: [facility] Type 2 diabetes mellitus wit hout complication, [...] of this encounter (statuses as of 02/20/2022) [facility] History of Past illness Narrative* Problem Noted Date Resolved Date Aspiration pneumonia 04/08/2019 10/26/2020 Overview: [facility] Type 2 diabetes mellitus wit hout complication, [...] of this encounter (statuses as of 02/23/2022) [facility] History of Past illness Narrative* Problem Noted Date Resolved Date Aspiration pneumonia 04/08/2019 10/26/2020 Overview: [facility] Type 2 diabetes mellitus wit hout complication, [...] of this encounter (statuses as of 03/14/2022) [facility] History of Past illness Narrative* Problem Noted Date Resolved Date Aspiration pneumonia 04/08/2019 10/26/2020 Overview: [facility] Type 2 diabetes mellitus wit hout complication, [...] of this encounter (statuses as of 03/23/2022) [facility] History of Past illness Narrative* Problem Noted Date Resolved Date Aspiration pneumonia 04/08/2019 10/26/2020 Overview: [facility] Type 2 diabetes mellitus wit hout complication, [...] of this encounter (statuses as of 04/06/2022) [facility] History of Past illness Narrative* Problem Noted Date Resolved Date Aspiration pneumonia 04/08/2019 10/26/2020 Overview: [facility] Type 2 diabetes mellitus wit hout complication, [...] of this encounter (statuses as of 04/17/2022) [facility] History of Past illness Narrative* Problem Noted Date Resolved Date Aspiration pneumonia 04/08/2019 10/26/2020 Overview: [facility] Type 2 diabetes mellitus wit hout complication, [...] of this encounter (statuses as of 04/27/2022) [facility] History of Past illness Narrative* Problem Noted Date Resolved Date Aspiration pneumonia 04/08/2019 10/26/2020 Overview: [facility] Type 2 diabetes mellitus wit hout complication, [...] of this encounter (statuses as of 05/14/2022) [facility] History of Past illness Narrative* Problem Noted Date Resolved Date Aspiration pneumonia 04/08/2019 10/26/2020 Overview: [facility] Type 2 diabetes mellitus wit hout complication, [...] of this encounter (statuses as of 05/14/2022) [facility] History of Past illness Narrative* Problem Noted Date Resolved Date Aspiration pneumonia 04/08/2019 10/26/2020 Overview: [facility] Type 2 diabetes mellitus wit hout complication, [...] of this encounter (statuses as of 05/22/2022) [facility] History of Past illness Narrative* Problem Noted Date Resolved Date Aspiration pneumonia 04/08/2019 10/26/2020 Overview: [facility] Type 2 diabetes mellitus wit hout complication, [...] of this encounter (statuses as of 05/24/2022) [facility] History of Past illness Narrative* Problem Noted Date Resolved Date Aspiration pneumonia 04/08/2019 10/26/2020 Overview: [facility] Type 2 diabetes mellitus wit hout complication, [...] of this encounter (statuses as of 05/24/2022) [facility] History of Past illness Narrative* Problem Noted Date Resolved Date Aspiration pneumonia 04/08/2019 10/26/2020 Overview: [facility] Type 2 diabetes mellitus wit hout complication, [...] of this encounter (statuses as of 05/28/2022) [facility] History of Past illness Narrative* Problem Noted Date Resolved Date Aspiration pneumonia 04/08/2019 10/26/2020 Overview: [facility] Type 2 diabetes mellitus wit hout complication, [...] of this encounter (statuses as of 06/07/2022) [facility] History of Past illness Narrative* Problem Noted Date Resolved Date Aspiration pneumonia 04/08/2019 10/26/2020 Overview: [facility] Type 2 diabetes mellitus wit hout complication, [...] of this encounter (statuses as of 06/19/2022) [facility] History of Past illness Narrative* Problem Noted Date Resolved Date Aspiration pneumonia 04/08/2019 10/26/2020 Overview: [facility] Type 2 diabetes mellitus wit hout complication, [...] of this encounter (statuses as of 06/21/2022) [facility] History of Past illness Narrative* Problem Noted Date Resolved Date Aspiration pneumonia 04/08/2019 10/26/2020 Overview: [facility] Type 2 diabetes mellitus wit hout complication, [...] of this encounter (statuses as of 07/26/2022) [facility] History of Past illness Narrative* Problem Noted Date Resolved Date Aspiration pneumonia 04/08/2019 10/26/2020 Overview: [facility] Type 2 diabetes mellitus wit hout complication, [...] of this encounter (statuses as of 08/13/2022) [facility] History of Past illness Narrative* Problem Noted Date Resolved Date Aspiration pneumonia 04/08/2019 10/26/2020 Overview: [facility] Type 2 diabetes mellitus wit hout complication, [...] of this encounter (statuses as of 08/21/2022) [facility] History of Past illness Narrative* Problem Noted Date Resolved Date Aspiration pneumonia 04/08/2019 10/26/2020 Overview: [facility] Type 2 diabetes mellitus wit hout complication, [...] of this encounter (statuses as of 09/11/2022) [facility] History of Past illness Narrative* Problem Noted Date Resolved Date Aspiration pneumonia 04/08/2019 10/26/2020 Overview: [facility] Type 2 diabetes mellitus wit hout complication, [...] of this encounter (statuses as of 09/21/2022) [facility] History of Past illness Narrative* Problem Noted Date Resolved Date Aspiration pneumonia 04/08/2019 10/26/2020 Overview: [facility] Type 2 diabetes mellitus wit hout complication, [...] of this encounter (statuses as of 10/08/2022) [facility] History of Past illness Narrative* Problem Noted Date Diagnosed Date Resolved Date Aspiration pneumonia 04/08/2019 021 Overview: [facility] Type 2 diabetes mellitus wit hout complication, [...] of this encounter (statuses as of 10/25/2022) [facility] History of Past illness Narrative* Problem Noted Date Diagnosed Date Resolved Date Aspiration pneumonia 04/08/2019 021 Overview: [facility] Type 2 diabetes mellitus wit hout complication, [...] of this encounter (statuses as of 10/25/2022) [facility]2020 History of Past illness Narrative* Problem Noted Date Diagnosed Date Resolved Date Aspiration pneumonia 04/08/2019 021 Overview: [facility] Type 2 diabetes mellitus wit hout complication, [...] of this encounter (statuses as of 10/29/2022) [facility] History of Past illness Narrative* Problem Noted Date Diagnosed Date Resolved Date Aspiration pneumonia 04/08/2019 021 Overview: [facility] Type 2 diabetes mellitus wit hout complication, [...] of this encounter (statuses as of 11/02/2022) [facility] History of Past illness Narrative* Problem Noted Date Diagnosed Date Resolved Date Aspiration pneumonia 04/08/2019 021 Overview: [facility] Type 2 diabetes mellitus wit hout complication, [...] of this encounter (statuses as of 11/07/2022) [facility]2020 History of Past illness Narrative* Problem Noted Date Diagnosed Date Resolved Date Aspiration pneumonia 04/08/2019 021 Overview: [facility] Type 2 diabetes mellitus wit hout complication, [...] of this encounter (statuses as of 11/12/2022) [facility]2020 History of Past illness Narrative* Problem Noted Date Diagnosed Date Resolved Date Aspiration pneumonia 04/08/2019 021 Overview: [facility] Type 2 diabetes mellitus wit hout complication, [...] of this encounter (statuses as of 11/14/2022) [facility]2020 History of Past illness Narrative* Problem Noted Date Diagnosed Date Resolved Date Aspiration pneumonia 04/08/2019 021 Overview: [facility] Type 2 diabetes mellitus wit hout complication, [...] of this encounter (statuses as of 11/19/2022) [facility] History of Past illness Narrative* Problem Noted Date Diagnosed Date Resolved Date Aspiration pneumonia 04/08/2019 021 Overview: [facility] Type 2 diabetes mellitus wit hout complication, [...] of this encounter (statuses as of 12/05/2022) [facility] History of Past illness Narrative* Problem Noted Date Diagnosed Date Resolved Date Aspiration pneumonia 04/08/2019 021 Overview: [facility] Type 2 diabetes mellitus wit hout complication, [...] of this encounter (statuses as of 12/12/2022) [facility] History of Past illness Narrative* Problem Noted Date Diagnosed Date Resolved Date Aspiration pneumonia 04/08/2019 021 Overview: [facility] Type 2 diabetes mellitus wit hout complication, [...] of this encounter (statuses as of 12/12/2022) [facility] History of Past illness Narrative* Problem Noted Date Diagnosed Date Resolved Date Aspiration pneumonia 04/08/2019 021 Overview: [facility] Type 2 diabetes mellitus wit hout complication, [...] of this encounter (statuses as of 02/01/2023) [facility] History of Past illness Narrative* Problem Noted Date Diagnosed Date Resolved Date Aspiration pneumonia 04/08/2019 021 Overview: [facility] Type 2 diabetes mellitus wit hout complication, [...] of this encounter (statuses as of 02/01/2023) [facility] History of Past illness Narrative* Problem Noted Date Diagnosed Date Resolved Date Aspiration pneumonia 04/08/2019 021 Overview: [facility] Type 2 diabetes mellitus wit hout complication, [...] of this encounter (statuses as of 02/18/2023) [facility] History of Past illness Narrative* Problem Noted Date Diagnosed Date Resolved Date Aspiration pneumonia 04/08/2019 021 Overview: [facility] Type 2 diabetes mellitus wit hout complication, [...] of this encounter (statuses as of 03/09/2023) [facility] History of Past illness Narrative* Problem Noted Date Diagnosed Date Resolved Date Aspiration pneumonia 04/08/2019 021 Overview: [facility] Type 2 diabetes mellitus wit hout complication, [...] of this encounter (statuses as of 03/20/2023) [facility] History of Past illness Narrative* Problem Noted Date Diagnosed Date Resolved Date Aspiration pneumonia 04/08/2019 021 Overview: [facility] Type 2 diabetes mellitus wit hout complication, [...] as of this encounter (statuses as of 05/20/2023) [facility] History of Past illness Narrative* Problem Noted Date Diagnosed Date Resolved Date Aspiration pneumonia 04/08/2019 021 Overview: [facility] Type 2 diabetes mellitus wit hout complication, [...] as of this encounter (statuses as of 06/19/2023) [facility] History of Past illness Narrative* Problem Noted Date Diagnosed Date Resolved Date Aspiration pneumonia 04/08/2019 021 Overview: [facility] Type 2 diabetes mellitus wit hout complication, [...] as of this encounter (statuses as of 06/25/2023) [facility] History of Past illness Narrative* Problem Noted Date Diagnosed Date Resolved Date Aspiration pneumonia 04/08/2019 021 Overview: [facility] Type 2 diabetes mellitus wit hout complication, [...] as of this encounter (statuses as of 07/18/2023) [facility] History of Past illness Narrative* Problem Noted Date Diagnosed Date Resolved Date Aspiration pneumonia 04/08/2019 021 Overview: [facility] Type 2 diabetes mellitus wit hout complication, [...] as of this encounter (statuses as of 07/27/2023) [facility] History of Past illness Narrative* Problem Noted Date Resolved Date Aspiration pneumonia 04/08/2019 10/26/2020 Overview: [facility] Type 2 diabetes mellitus wit hout complication, [...] Insulin dependent 2011 Other malaise and fatigue 01/23/20062019 Anemia 06/12/2017 documented as of this encounter (statuses as of 02/22/2022) [facility] + Plan note No data available for this section [facility] Evaluation note* Diagnosis Type 2 diabetes mellitus with diabetic neuropathy, with long-term current use of insulin ([facility]) Mixed hyperlipidemia documented in this encounter [facility] note* Diagnosis Type 2 diabetes mellitus with diabetic neuropathy, with long-term current use of insulin ([facility])- Primary Iron deficiency anemia, unspecified iron deficiency anemia type Systemic lupus erythematosus, unspecified SLE type, unspecified organ involvement status ([facility]) Encounter for long-term (current) use of medications Encounter for long-term (current) use of other medications Type 2 diabetes mellitus with diabetic neuropathy, with long-term current use of insulin ([facility]) documented in this encounter [facility] note* Diagnosis Other iron deficiency anemia- Primary Anemia, unspecified type documented in this encounter [facility] note* Diagnosis Type 2 diabetes mellitus with diabetic neuropathy, with long-term current use of insulin ([facility])- Primary Mixed hyperlipidemia Renal insufficiency Unspecified disorder [...] with panic disorder [facility] Diagnosis Vitamin D deficiency Unspecified vitamin D deficiency [facility] Diagnosis Other iron deficiency anemia- Primary [facility] Diagnosis Other iron deficiency anemia- Primary [facility] Diagnosis Other iron deficiency anemia- Primary [facility] Diagnosis Major depressive disorder, recurrent episode, moderate (HCC)- Primary Major depressive disorder, recurrent episode, moderate Panic disorder with agoraphobia Agoraphobia with panic disorder Tremors of nervous system Abnormal involuntary movements Chronic post-traumatic stress disorder (PTSD) [facility]* Diagnosis Other iron deficiency anemia- Primary [facility] noteNo assessment information availableWProMedica [facility] Work Phone: Evaluation note* Diagnosis Fall, subsequent encounter- Primary Type 2 diabetes mellitus with diabetic neuropathy, with long-term current use of insulin (HCC) Bradycardia Other specified cardiac dysrhythmias [facility] Diagnosis Diastolic dysfunction, left ventricle- Primary Heart disease, unspecified Acute on chronic diastolic congestive heart failure (HCC) Acute on chronic diastolic heart failure Bradycardia Other specified cardiac dysrhythmias REINALDO (obstructive sleep apnea) Obstructive sleep apnea (adult) (pediatric) Mixed hyperlipidemia Chronic renal insufficiency, stage 3 (moderate) (HCC) Type 2 diabetes mellitus with diabetic neuropathy, [...] of other medications [facility] Diagnosis Chronic renal insufficiency, stage 3 (moderate) (HCC)- Primary [facility]* Diagnosis Type 2 diabetes mellitus with diabetic neuropathy, with long-term current use of insulin (HCC)- Primary [facility] Diagnosis GERD without esophagitis Esophageal reflux [facility] Diagnosis Major depressive disorder, recurrent episode, moderate (HCC)- Primary Major depressive disorder, recurrent episode, moderate Panic disorder with agoraphobia Agoraphobia with panic disorder Tremors of nervous system Abnormal involuntary movements Chronic post-traumatic stress disorder (PTSD) Medical marijuana use Encounter for long-term (current) use of other medications [facility] Diagnosis Other iron deficiency anemia- Primary [facility] Diagnosis Panic disorder with agoraphobia- Primary Agoraphobia with panic disorder Major depressive disorder, recurrent episode, moderate (HCC) Major depressive disorder, recurrent episode, moderate Tremors of nervous system Abnormal involuntary movements Medical marijuana use Encounter for long-term (current) use of other medications Chronic post-traumatic stress disorder (PTSD) [facility] Diagnosis Change in bowel function- Primary Other symptoms involving digestive system GERD without esophagitis Esophageal reflux Screening for colon cancer Special screening for malignant neoplasms, colon Screening for cervical cancer Screening for malignant neoplasm of the cervix Type 2 diabetes mellitus with diabetic neuropathy, without long-term current use of insulin ([facility]) Mixed hyperlipidemia Hematochezia Blood in stool Weight loss Loss of weight [facility] Diagnosis Systemic lupus erythematosus, unspecified SLE type, unspecified organ involvement status ([facility])- Primary Fibromyalgia Mylagia and myositis, unspecified Encounter for long-term (current) use of medications Encounter for long-term (current) use of other medications Chronic kidney disease, unspecified CKD stage [facility] Diagnosis Encounter for screening mammogram for breast cancer Screening for cervical cancer Screening for malignant neoplasm of the cervix [facility] Diagnosis Encounter for gynecological examination (general) (routine) without abnormal findings- Primary Pap smear for cervical cancer screening Screening for malignant neoplasm of the cervix Encounter for screening mammogram for breast cancer Vaginal irritation Unspecified noninflammatory disorder of vagina [facility] Change in bowel habits- Primary Other symptoms involving digestive system History of colonic polyps Personal history of colonic polyps Blood in stool Nausea Nausea alone Gastroesophageal reflux disease, unspecified whether esophagitis present [facility] Systemic lupus erythematosus, unspecified SLE type, unspecified organ involvement status (HCC)- Primary [facility] Iron malabsorption Other specified intestinal malabsorption [facility] Diagnosis Other iron deficiency anemia- Primary Iron malabsorption Other specified intestinal malabsorption [facility] Other iron deficiency anemia- Primary Iron malabsorption Other specified intestinal malabsorption [facility] Diagnosis Other iron deficiency anemia- Primary Iron malabsorption Other specified intestinal malabsorption [facility] Diagnosis Chronic post-traumatic stress disorder (PTSD)- Primary Moderate episode of recurrent major depressive disorder (HCC) Panic disorder with agoraphobia Agoraphobia with panic disorder [facility] Diagnosis Other iron deficiency anemia- Primary [facility] Diagnosis Type 2 diabetes mellitus with diabetic neuropathy, without long-term current use of insulin ([facility]) [facility] Diagnosis Encounter for screening mammogram for breast cancer [facility] Diagnosis Other iron deficiency anemia- Primary [facility] Diagnosis Other iron deficiency anemia- Primary Mixed hyperlipidemia CKD (chronic kidney disease) stage 4, GFR 15-29 ml/min (HCC) Chronic kidney disease, Stage IV (severe) Type 2 diabetes mellitus with diabetic neuropathy, without long-term current use of insulin (HCC) Type 2 diabetes mellitus with stage 3a chronic kidney disease, without long-term current use of insulin (HCC) Current use of proton pump inhibitor Encounter for long-term (current) use of other medications [facility] Diagnosis Sinobronchitis- Primary Unspecified sinusitis (chronic) [facility] GERD without esophagitis Esophageal reflux [facility] Diagnosis Encounter for immunization- Primary Need for other specified prophylactic vaccination against single bacterial disease Screening for diabetic retinopathy Screening for other eye conditions Type 2 diabetes mellitus with stage 3b chronic kidney disease, without long-term current use of insulin (HCC) Hx of encephalopathy Personal history of other disorders of nervous system and sense organs Chronic heart failure with preserved ejection fraction (HCC) Diastolic dysfunction, left ventricle Heart disease, unspecified Mixed hyperlipidemia Type 2 diabetes mellitus with diabetic neuropathy, without long-term current use of insulin (HCC) Stage 3 chronic renal impairment associated with type 2 diabetes mellitus (HCC) Type II or unspecified type diabetes mellitus with renal manifestations, not stated as uncontrolled Chronic renal failure, stage 3b (HCC) Panic disorder with agoraphobia Agoraphobia with panic disorder Fatigue, unspecified type Severe recurrent major depression without psychotic features (HCC) Major depressive disorder, recurrent episode, severe, without mention of psychotic behavior Chronic post-traumatic stress disorder (PTSD) Esophagitis Esophagitis, unspecified Current use of proton pump inhibitor Encounter for long-term (current) use of other medications Tubular adenoma of colon Benign neoplasm of colon Malabsorption of iron Other specified intestinal malabsorption Vitamin D deficiency Unspecified vitamin D deficiency Asymptomatic menopausal state Asymptomatic postmenopausal status (age-related) (natural) [facility] Diagnosis GERD without esophagitis Esophageal reflux [facility] Diagnosis Type 2 diabetes mellitus with diabetic neuropathy, without long-term current use of insulin (HCC) [facility] Diagnosis Asymptomatic menopausal state Asymptomatic postmenopausal status (age-related) (natural) [facility] Diagnosis Iron deficiency anemia, unspecified iron deficiency anemia type- Primary [facility] Diagnosis Vitamin D deficiency Unspecified vitamin D deficiency [facility] Diagnosis Acute cough- Primary Viral bronchitis Acute bronchitis Acute cough [facility] Diagnosis Type 2 diabetes mellitus with diabetic neuropathy, without long-term current use of insulin (HCC)- Primary [facility] Diagnosis Bronchitis- Primary Bronchitis, not specified as acute or chronic Syncope, unspecified syncope type [facility] Diagnosis GERD without esophagitis Esophageal reflux documented in this encounter [facility]* Diagnosis Other iron deficiency anemia- Primary documented in this encounter [facility] note* Diagnosis Acute cough documented in this encounter [facility] note* Diagnosis Acute cough documented in this encounter [facility] note* Diagnosis Postural kyphosis, unspecified spinal region documented in this encounter [facility] note* Diagnosis Cough documented in this encounter [facility] note* Diagnosis Systemic lupus erythematosus, unspecified SLE type, unspecified organ involvement status (HCC)- Primary Fibromyalgia Mylagia and myositis, unspecified Encounter for long-term (current) use of medications Encounter for long-term (current) use of other medications Chronic kidney disease, unspecified CKD stage documented in this encounter [facility] note* Diagnosis Other iron deficiency anemia- Primary documented in this encounter [facility] note* Diagnosis Other iron deficiency anemia- Primary documented in this encounter [facility] note* Diagnosis Systemic lupus erythematosus, unspecified SLE type, unspecified organ involvement status (HCC)- Primary Fibromyalgia Mylagia and myositis, unspecified Encounter for long-term (current) use of medications Encounter for long-term (current) use of other medications Low back pain, unspecified back pain laterality, unspecified chronicity, unspecified whether sciatica present documented in this encounter [facility] note* Diagnosis Low back pain, unspecified back pain laterality, unspecified chronicity, unspecified whether sciatica present documented in this encounter [facility] note* Diagnosis Other iron deficiency anemia- Primary 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 [facility] Diagnosis Other iron deficiency anemia- Primary 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 documented in this encounter [facility] note* Diagnosis Other iron deficiency anemia- Primary 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 [facility] Diagnosis Postlaminectomy syndrome- Primary Postlaminectomy syndrome, unspecified region Chronic bilateral low back pain without sciatica documented in this encounter [facility] note* Diagnosis Other iron deficiency anemia- Primary 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 documented in this encounter [facility] note* Diagnosis Other iron deficiency anemia- Primary 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 for referral (narrative)* Outpatient Procedure (Routine) - Closed Specialty Diagnoses / Procedures [facility] Diagnoses Bradycardia Procedures ECG COMPLETE ECG ROUTINE ECG W/LEAST 12 LDS W/I&R Leelee Farrar APRN.RADIOLOGY CLERK [address] [place] [address] [facility] [place] [address] [place] [address] Referral ID Status Reason Start Date Expiration Date V isits Requested Visits Authorized [id number] Closed Auto-Generate d Referral 09/22/2021 09/22/[address] [facility] for referral (narrative)* Diagnostic Procedure Only (Routine) - Pending Review Specialty Diagnoses / Procedures [facility] Referred To Contact [facility] Diagnoses Encounter for screening mammogram for breast cancer Procedures CINDI SCREENING SCREENING MAMMOGRAPHY BI 2-VIEW BREAST INC CAD Ailyn Carson PA-C [address] [place] [address] [facility] [address] [place] [address] Referral ID Status Reason Start Date Expiration Date Visits Requested Visits Authorized [id number] Pending Review Auto-Generat ed Referral 05/23/2022 06/22/[address] [facility] for referral (narrative)* Diagnostic Procedure Only (Routine) - Pending Review Specialty Diagnoses / Procedures [facility] Referred To Contact [facility] Diagnoses Encounter for screening mammogram for breast cancer Procedures CINDI SCREENING SCREENING MAMMOGRAPHY BI 2-VIEW BREAST INC CAD Roberta Lanza APRN.RADIOLOGY CLERK [address] [place] [address] [facility] [address] [place] [address] Referral ID Status Reason Start Date Expiration Date Visits Requested Visits Authorized [id number] Pending Review Auto-Generat ed Referral 06/07/2022 07/07/[address] [facility] for referral (narrative)* Diagnostic Procedure Only (Routine) - Pending Review Specialty Diagnoses / Procedures Referred By Contac t Referred To Contact [facility] Diagnoses Encounter for screening mammogram for breast cancer Procedures CINDI SCREENING SCREENING MAMMOGRAPHY BI 2-VIEW BREAST INC CAD Ailyn Carson PA-C [address] [place] [address] [facility] [address] [place] [address] Referral ID Status Reason Start Date Expiration Date Visits Requested Visits Authorized [id number] Pending Review Auto-Generat ed Referral 05/15/2023 06/13/[address] [facility] for referral (narrative)* Diagnostic Procedure Only (Routine) - Closed Specialty Diagnoses / Procedures Referred By Contac t Referred To Contact XR IMAGING Diagnoses Postural kyphosis, unspecified spinal region Procedures XR THORACIC GENERAL 3V AP/LAT/SWIMMERS RADEX SPINE THORACIC 3 VIEWS Ailyn Carson PA-C [address] [place] [address] [place] [address] Referral ID Status Reason Start Date Expiration Date V isits Requested Visits Authorized [id number] Closed Auto-Generate d Referral 01/01/[address] [facility] for referral (narrative)No reason for referral information [facility]WPro[facility] Work Phone: [employer] for visit Narrative* Diagnostic Procedure Only (Routine) - Closed Specialty Diagnoses / Procedures Referred By Contac t Referred To Contact XR IMAGING Diagnoses Postural kyphosis, unspecified spinal region Procedures XR THORACIC GENERAL 3V AP/LAT/SWIMMERS RADEX SPINE THORACIC 3 VIEWS Ailyn Carson PA-C [address] [place] [address] [place] [address] Referral ID Status Reason Start Date Expiration Date V isits Requested Visits Authorized [id number] Closed Auto-Generate d Referral 01/01/2022 2023 1 1 [facility] Summary Purpose Family History No Family History Records Found Relationship Condition Age at Onset Recorded Date/T duane father Malignant neoplasm Unknown mother Hypertension Unknown Advance Directives No Advanced Directives Records FoundDocuments on File Type Date Recorded 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 Advance Directive(s) 05/04/2020 3:47 PM Advance Directive(s) 12/24/2019 8:06 AM Advance Directive(s) 07/11/2016 8:32 AM Advance Directive(s) 07/11/2016 8:55 AM Advance Directive(s) 07/06/2016 11:01 AM Advance Directive Response Recorded Date/ Time Advance Directives Yes January 28, 2014 10:32am Living Will Yes September 15, 2021 9:11pm Power of Drying Frame Operator Yes September 15 9:11pm Documents on File Type Date Recorded 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 Advance Directive(s) 05/04/2020 3:47 PM Advance Directive(s) 12/24/2019 8:06 AM Advance Directive(s) 07/11/2016 8:32 AM Advance Directive(s) 07/11/2016 8:55 AM Advance Directive(s) 07/06/2016 11:01 AM Documents on File Type Date Recorded 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 Yes May 06, 2024 8:00pm Name of Medical Power of Drying Frame Operator Cari Albert May 06, 2024 8:00pm Advance Directives Yes January 28, 2014 10:32am Advance Directive Response Recorded Date/ Time Advance Directives Yes January 28, 2014 10:32am Medications Administered Section Inactive Administered Medications - [...] 11:07 AM EDT 200 mg 400 mL/hr Chief Complaint and Reason for Visit Chief Complaint LEFT KNEE PAIN Chief Complaint SPRAIN AND OSTEOARTH RITIS OF RIGHT KNEE Chief Complaint BACK Chief Complaint Admit Date FALLS W/ RIGHT ANKLE FRACTURE, CONCERN F OR SYNCOPE May 07, 2024 4:43pm FALLS W/ RIGHT ANKLE FRACTURE, CONCERN F OR SYNCOPE May 09, 2024 11:30am FALLS W/ RIGHT ANKLE FRACTURE, CONCERN F OR SYNCOPE May 10, 2024 12:50pm FALLS W/ RIGHT ANKLE FRACTURE, CONCERN F OR SYNCOPE May 11, 2024 2:11pm FALLS W/ RIGHT ANKLE FRACTURE, CONCERN F OR SYNCOPE May 12, 2024 2:08pm FALLS W/ RIGHT ANKLE FRACTURE, CONCERN F OR SYNCOPE May 13, 2024 3:10pm FALLS W/ RIGHT ANKLE FRACTURE, CONCERN F OR SYNCOPE May 14, 2024 12:47pm FALLS W/ RIGHT ANKLE FRACTURE, CONCERN F OR SYNCOPE May 15, 2024 12:37pm GAIT. RX HERE September 01, 2024 11:58 am Reason for Visit Admit Date Near syncope May 07, 2024 4 :43pm Syncope May 07, 2024 4 :43pm Fracture of distal end of fibula May 07, 2024 4:43pm Chief Complaint Admit Date GAIT. RX HERE October 15, 2024 1:00 pm 30 DAY MONITOR November 30, 2024 9: 00am DIZZINESS AFIB November 30, 2024 2: 04pm Reason for Referral Specialty Diagnoses / Procedures Referred By Contac t Referred To Contact Psychology Diagnoses Panic disorder with agoraphobia Major depressive disorder, recurrent episode, moderate (HCC) Tremors of nervous system Medical marijuana use Procedures CONSULT TO PSYCHOLOGY OFFICE/OUTPATIENT [facility] 60-74 MINUTES Cary Loredo, PHOTOGRAPHER'S MODEL.RADIOLOGY CLERK [address] [place] [address] Referral ID Status Reason Start Date Expiration Date Visits Requested Visits Authorized [id number] Pending Review PCP Requested Referral 2 03/07/2023 1 1 Specialty Diagnoses / Procedures Referred By Contac t Referred To Contact Tyler Dixon, PHOTOGRAPHER'S MODEL.RADIOLOGY CLERK [address] [place] [address] Referral ID Status Reason Start Date Expiration Date V isits Requested Visits Authorized [id number] Authorized 04/14/2022 05/14/2023 1 1 Specialty Diagnoses / Procedures Referred By Contac t Referred To Contact Gynecology Diagnoses Screening for cervical cancer Procedures CONSULT TO GYNECOLOGY OFFICE/OUTPATIENT [facility] 60-74 MINUTES Ailyn Carson PA-C [address] [place] [address] Referral ID Status Reason Start Date Expiration Date Visits Requested Visits Authorized [id number] Authorized PCP Requested Referral Auto-Generate d Referral 05/21/2022 05/21/2023 1 1 Specialty Diagnoses / Procedures Referred By Contac t Referred To Contact General Surgery Diagnoses Change in bowel function Screening for colon cancer Procedures CONSULT TO GENERAL SURGERY OFFICE/OUTPATIENT NEW HIGH MDM 60-74 MINUTES Ailyn Carson PA-C [address] [place] [address] Referral ID Status Reason Start Date Expiration Date Visits Requested Visits Authorized [id number] Authorized PCP Requested Referral 05/21/2022 05/21/2023 1 1 Additional Source Comments INFORMATION SOURCE (unrecogn ized section and content) DATE CREATED AUTHOR 09/25/2017 [facility] [place] DATE CREATED AUTHOR AUTHOR'S ORGANIZ ATION 10/01/2017 [facility] DATE CREATED AUTHOR AUTHOR'S ORGANIZ ATION 03/01/2020 [facility] DATE CREATED AUTHOR AUTHOR'S ORGANIZ ATION 05/05/2020 [facility] DATE CREATED AUTHOR AUTHOR'S ORGANIZ ATION 08/17/2022 [facility] DATE CREATED AUTHOR AUTHOR'S ORGANIZ ATION 11/27/2024 [facility] DATE CREATED AUTHOR AUTHOR'S ORGANIZ ATION 12/17/2024 [facility] DATE CREATED AUTHOR AUTHOR'S ORGANIZ ATION 02/10/[address] [facility] Source Comments (unrecognize d section and content) In the event this informatio n is protected by the Federal Confidentiality of Alcohol and Drug Abuse Patient Records regulations: The Federal rules restrict any use of the information to criminally investigate or prosecute any alcohol or drug abuse patient.[facility] the event this information is protected by the Federal Confidentiality of Alcohol and Drug Abuse Patient Records regulations: The Federal rules restrict any use of the information to criminally investigate or prosecute any alcohol or drug abuse patient.[facility] the event this information is protected by the Federal Confidentiality of Alcohol and Drug Abuse Patient Records regulations: The Federal rules restrict any use of the information to criminally investigate or prosecute any alcohol or drug abuse patient.[facility] the event this information is protected by the Federal Confidentiality of Alcohol and Drug Abuse Patient Records regulations: The Federal rules restrict any use of the information to criminally investigate or prosecute any alcohol or drug abuse patient.[facility] the event this information is protected by the Federal Confidentiality of Alcohol and Drug Abuse Patient Records regulations: The Federal rules restrict any use of the information to criminally investigate or prosecute any alcohol or drug abuse patient.[facility] the event this information is protected by the Federal Confidentiality of Alcohol and Drug Abuse Patient Records regulations: The Federal rules restrict any use of the information to criminally investigate or prosecute any alcohol or drug abuse patient.[facility] the event this information is protected by the Federal Confidentiality of Alcohol and Drug Abuse Patient Records regulations: The Federal rules restrict any use of the information to criminally investigate or prosecute any alcohol or drug abuse patient.[facility] the event this information is protected by the Federal Confidentiality of Alcohol and Drug Abuse Patient Records regulations: The Federal rules restrict any use of the information to criminally investigate or prosecute any alcohol or drug abuse patient.[facility] the event this information is protected by the Federal Confidentiality of Alcohol and Drug Abuse Patient Records regulations: The Federal rules restrict any use of the information to criminally investigate or prosecute any alcohol or drug abuse patient.[facility] the event this information is protected by the Federal Confidentiality of Alcohol and Drug Abuse Patient Records regulations: The Federal rules restrict any use of the information to criminally investigate or prosecute any alcohol or drug abuse patient.[facility] Center[facility] the event this information is protected by the Federal Confidentiality of Alcohol and Drug Abuse Patient Records regulations: The Federal rules restrict any use of the information to criminally investigate or prosecute any alcohol or drug abuse patient.[facility] the event this information is protected by the Federal Confidentiality of Alcohol and Drug Abuse Patient Records regulations: The Federal rules restrict any use of the information to criminally investigate or prosecute any alcohol or drug abuse patient.[facility] the event this information is protected by the Federal Confidentiality of Alcohol and Drug Abuse Patient Records regulations: The Federal rules restrict any use of the information to criminally investigate or prosecute any alcohol or drug abuse patient.[facility] the event this information is protected by the Federal Confidentiality of Alcohol and Drug Abuse Patient Records regulations: The Federal rules restrict any use of the information to criminally investigate or prosecute any alcohol or drug abuse patient.[facility] the event this information is protected by the Federal Confidentiality of Alcohol and Drug Abuse Patient Records regulations: The Federal rules restrict any use of the information to criminally investigate or prosecute any alcohol or drug abuse patient.[facility] Center[facility] the event this information is protected by the Federal Confidentiality of Alcohol and Drug Abuse Patient Records regulations: The Federal rules restrict any use of the information to criminally investigate or prosecute any alcohol or drug abuse patient.[facility] Center[facility] the event this information is protected by the Federal Confidentiality of Alcohol and Drug Abuse Patient Records regulations: The Federal rules restrict any use of the information to criminally investigate or prosecute any alcohol or drug abuse patient.[facility] Center[facility] the event this information is protected by the Federal Confidentiality of Alcohol and Drug Abuse Patient Records regulations: The Federal rules restrict any use of the information to criminally investigate or prosecute any alcohol or drug abuse patient.[facility] Center[facility] the event this information is protected by the Federal Confidentiality of Alcohol and Drug Abuse Patient Records regulations: The Federal rules restrict any use of the information to criminally investigate or prosecute any alcohol or drug abuse patient.[facility] CenterIn the event this information is protected by the Federal Confidentiality of Alcohol and Drug Abuse Patient Records regulations: The Federal rules restrict any use of the information to criminally investigate or prosecute any alcohol or drug abuse patient.[facility] CenterIn the event this information is protected by the Federal Confidentiality of Alcohol and Drug Abuse Patient Records regulations: The Federal rules restrict any use of the information to criminally investigate or prosecute any alcohol or drug abuse patient.[facility] CenterIn the event this information is protected by the Federal Confidentiality of Alcohol and Drug Abuse Patient Records regulations: The Federal rules restrict any use of the information to criminally investigate or prosecute any alcohol or drug abuse patient.[facility] CenterIn the event this information is protected by the Federal Confidentiality of Alcohol and Drug Abuse Patient Records regulations: The Federal rules restrict any use of the information to criminally investigate or prosecute any alcohol or drug abuse patient.[facility] CenterIn the event this information is protected by the Federal Confidentiality of Alcohol and Drug Abuse Patient Records regulations: The Federal rules restrict any use of the information to criminally investigate or prosecute any alcohol or drug abuse patient.[facility]In the event this information is protected by the Federal Confidentiality of Alcohol and Drug Abuse Patient Records regulations: The Federal rules restrict any use of the information to criminally investigate or prosecute any alcohol or drug abuse patient.[facility] CenterIn the event this information is protected by the Federal Confidentiality of Alcohol and Drug Abuse Patient Records regulations: The Federal rules restrict any use of the information to criminally investigate or prosecute any alcohol or drug abuse patient.[facility] CenterIn the event this information is protected by the Federal Confidentiality of Alcohol and Drug Abuse Patient Records regulations: The Federal rules restrict any use of the information to criminally investigate or prosecute any alcohol or drug abuse patient.[facility]In the event this information is protected by the Federal Confidentiality of Alcohol and Drug Abuse Patient Records regulations: The Federal rules restrict any use of the information to criminally investigate or prosecute any alcohol or drug abuse patient.[facility]In the event this information is protected by the Federal Confidentiality of Alcohol and Drug Abuse Patient Records regulations: The Federal rules restrict any use of the information to criminally investigate or prosecute any alcohol or drug abuse patient.[facility]In the event this information is protected by the Federal Confidentiality of Alcohol and Drug Abuse Patient Records regulations: The Federal rules restrict any use of the information to criminally investigate or prosecute any alcohol or drug abuse patient.[facility] CenterIn the event this information is protected by the Federal Confidentiality of Alcohol and Drug Abuse Patient Records regulations: The Federal rules restrict any use of the information to criminally investigate or prosecute any alcohol or drug abuse patient.[facility] CenterIn the event this information is protected by the Federal Confidentiality of Alcohol and Drug Abuse Patient Records regulations: The Federal rules restrict any use of the information to criminally investigate or prosecute any alcohol or drug abuse patient.[facility]In the event this information is protected by the Federal Confidentiality of Alcohol and Drug Abuse Patient Records regulations: The Federal rules restrict any use of the information to criminally investigate or prosecute any alcohol or drug abuse patient.[facility] CenterIn the event this information is protected by the Federal Confidentiality of Alcohol and Drug Abuse Patient Records regulations: The Federal rules restrict any use of the information to criminally investigate or prosecute any alcohol or drug abuse patient.[facility]In the event this information is protected by the Federal Confidentiality of Alcohol and Drug Abuse Patient Records regulations: The Federal rules restrict any use of the information to criminally investigate or prosecute any alcohol or drug abuse patient.[facility]In the event this information is protected by the Federal Confidentiality of Alcohol and Drug Abuse Patient Records regulations: The Federal rules restrict any use of the information to criminally investigate or prosecute any alcohol or drug abuse patient.[facility]In the event this information is protected by the Federal Confidentiality of Alcohol and Drug Abuse Patient Records regulations: The Federal rules restrict any use of the information to criminally investigate or prosecute any alcohol or drug abuse patient.[facility]In the event this information is protected by the Federal Confidentiality of Alcohol and Drug Abuse Patient Records regulations: The Federal rules restrict any use of the information to criminally investigate or prosecute any alcohol or drug abuse patient.[facility] CenterIn the event this information is protected by the Federal Confidentiality of Alcohol and Drug Abuse Patient Records regulations: The Federal rules restrict any use of the information to criminally investigate or prosecute any alcohol or drug abuse patient.[facility]In the event this information is protected by the Federal Confidentiality of Alcohol and Drug Abuse Patient Records regulations: The Federal rules restrict any use of the information to criminally investigate or prosecute any alcohol or drug abuse patient.[facility]In the event this information is protected by the Federal Confidentiality of Alcohol and Drug Abuse Patient Records regulations: The Federal rules restrict any use of the information to criminally investigate or prosecute any alcohol or drug abuse patient.[facility] CenterIn the event this information is protected by the Federal Confidentiality of Alcohol and Drug Abuse Patient Records regulations: The Federal rules restrict any use of the information to criminally investigate or prosecute any alcohol or drug abuse patient.[facility] CenterIn the event this information is protected by the Federal Confidentiality of Alcohol and Drug Abuse Patient Records regulations: The Federal rules restrict any use of the information to criminally investigate or prosecute any alcohol or drug abuse patient.[facility] CenterIn the event this information is protected by the Federal Confidentiality of Alcohol and Drug Abuse Patient Records regulations: The Federal rules restrict any use of the information to criminally investigate or prosecute any alcohol or drug abuse patient.[facility] the event this information is protected by the Federal Confidentiality of Alcohol and Drug Abuse Patient Records regulations: The Federal rules restrict any use of the information to criminally investigate or prosecute any alcohol or drug abuse patient.[facility] CenterIn the event this information is protected by the Federal Confidentiality of Alcohol and Drug Abuse Patient Records regulations: The Federal rules restrict any use of the information to criminally investigate or prosecute any alcohol or drug abuse patient.[facility] CenterIn the event this information is protected by the Federal Confidentiality of Alcohol and Drug Abuse Patient Records regulations: The Federal rules restrict any use of the information to criminally investigate or prosecute any alcohol or drug abuse patient.[facility] CenterIn the event this information is protected by the Federal Confidentiality of Alcohol and Drug Abuse Patient Records regulations: The Federal rules restrict any use of the information to criminally investigate or prosecute any alcohol or drug abuse patient.[facility] CenterIn the event this information is protected by the Federal Confidentiality of Alcohol and Drug Abuse Patient Records regulations: The Federal rules restrict any use of the information to criminally investigate or prosecute any alcohol or drug abuse patient.[facility] CenterIn the event this information is protected by the Federal Confidentiality of Alcohol and Drug Abuse Patient Records regulations: The Federal rules restrict any use of the information to criminally investigate or prosecute any alcohol or drug abuse patient.[facility]In the event this information is protected by the Federal Confidentiality of Alcohol and Drug Abuse Patient Records regulations: The Federal rules restrict any use of the information to criminally investigate or prosecute any alcohol or drug abuse patient.[facility]In the event this information is protected by the Federal Confidentiality of Alcohol and Drug Abuse Patient Records regulations: The Federal rules restrict any use of the information to criminally investigate or prosecute any alcohol or drug abuse patient.[facility]In the event this information is protected by the Federal Confidentiality of Alcohol and Drug Abuse Patient Records regulations: The Federal rules restrict any use of the information to criminally investigate or prosecute any alcohol or drug abuse patient.[facility]In the event this information is protected by the Federal Confidentiality of Alcohol and Drug Abuse Patient Records regulations: The Federal rules restrict any use of the information to criminally investigate or prosecute any alcohol or drug abuse patient.[facility]In the event this information is protected by the Federal Confidentiality of Alcohol and Drug Abuse Patient Records regulations: The Federal rules restrict any use of the information to criminally investigate or prosecute any alcohol or drug abuse patient.[facility]In the event this information is protected by the Federal Confidentiality of Alcohol and Drug Abuse Patient Records regulations: The Federal rules restrict any use of the information to criminally investigate or prosecute any alcohol or drug abuse patient.[facility]In the event this information is protected by the Federal Confidentiality of Alcohol and Drug Abuse Patient Records regulations: The Federal rules restrict any use of the information to criminally investigate or prosecute any alcohol or drug abuse patient.[facility]In the event this information is protected by the Federal Confidentiality of Alcohol and Drug Abuse Patient Records regulations: The Federal rules restrict any use of the information to criminally investigate or prosecute any alcohol or drug abuse patient.[facility]In the event this information is protected by the Federal Confidentiality of Alcohol and Drug Abuse Patient Records regulations: The Federal rules restrict any use of the information to criminally investigate or prosecute any alcohol or drug abuse patient.[facility]In the event this information is protected by the Federal Confidentiality of Alcohol and Drug Abuse Patient Records regulations: The Federal rules restrict any use of the information to criminally investigate or prosecute any alcohol or drug abuse patient.[facility]In the event this information is protected by the Federal Confidentiality of Alcohol and Drug Abuse Patient Records regulations: The Federal rules restrict any use of the information to criminally investigate or prosecute any alcohol or drug abuse patient.[facility]In the event this information is protected by the Federal Confidentiality of Alcohol and Drug Abuse Patient Records regulations: The Federal rules restrict any use of the information to criminally investigate or prosecute any alcohol or drug abuse patient.[facility]In the event this information is protected by the Federal Confidentiality of Alcohol and Drug Abuse Patient Records regulations: The Federal rules restrict any use of the information to criminally investigate or prosecute any alcohol or drug abuse patient.[facility]In the event this information is protected by the Federal Confidentiality of Alcohol and Drug Abuse Patient Records regulations: The Federal rules restrict any use of the information to criminally investigate or prosecute any alcohol or drug abuse patient.[facility]In the event this information is protected by the Federal Confidentiality of Alcohol and Drug Abuse Patient Records regulations: The Federal rules restrict any use of the information to criminally investigate or prosecute any alcohol or drug abuse patient.[facility]In the event this information is protected by the Federal Confidentiality of Alcohol and Drug Abuse Patient Records regulations: The Federal rules restrict any use of the information to criminally investigate or prosecute any alcohol or drug abuse patient.[facility]In the event this information is protected by the Federal Confidentiality of Alcohol and Drug Abuse Patient Records regulations: The Federal rules restrict any use of the information to criminally investigate or prosecute any alcohol or drug abuse patient.[facility]In the event this information is protected by the Federal Confidentiality of Alcohol and Drug Abuse Patient Records regulations: The Federal rules restrict any use of the information to criminally investigate or prosecute any alcohol or drug abuse patient.[facility]In the event this information is protected by the Federal Confidentiality of Alcohol and Drug Abuse Patient Records regulations: The Federal rules restrict any use of the information to criminally investigate or prosecute any alcohol or drug abuse patient.[facility]In the event this information is protected by the Federal Confidentiality of Alcohol and Drug Abuse Patient Records regulations: The Federal rules restrict any use of the information to criminally investigate or prosecute any alcohol or drug abuse patient.[facility]In the event this information is protected by the Federal Confidentiality of Alcohol and Drug Abuse Patient Records regulations: The Federal rules restrict any use of the information to criminally investigate or prosecute any alcohol or drug abuse patient.[facility]In the event this information is protected by the Federal Confidentiality of Alcohol and Drug Abuse Patient Records regulations: The Federal rules restrict any use of the information to criminally investigate or prosecute any alcohol or drug abuse patient.[facility]In the event this information is protected by the Federal Confidentiality of Alcohol and Drug Abuse Patient Records regulations: The Federal rules restrict any use of the information to criminally investigate or prosecute any alcohol or drug abuse patient.[facility]In the event this information is protected by the Federal Confidentiality of Alcohol and Drug Abuse Patient Records regulations: The Federal rules restrict any use of the information to criminally investigate or prosecute any alcohol or drug abuse patient.[facility]In the event this information is protected by the Federal Confidentiality of Alcohol and Drug Abuse Patient Records regulations: The Federal rules restrict any use of the information to criminally investigate or prosecute any alcohol or drug abuse patient.[facility]In the event this information is protected by the Federal Confidentiality of Alcohol and Drug Abuse Patient Records regulations: The Federal rules restrict any use of the information to criminally investigate or prosecute any alcohol or drug abuse patient.[facility]In the event this information is protected by the Federal Confidentiality of Alcohol and Drug Abuse Patient Records regulations: The Federal rules restrict any use of the information to criminally investigate or prosecute any alcohol or drug abuse patient.[facility]In the event this information is protected by the Federal Confidentiality of Alcohol and Drug Abuse Patient Records regulations: The Federal rules restrict any use of the information to criminally investigate or prosecute any alcohol or drug abuse patient.[facility]In the event this information is protected by the Federal Confidentiality of Alcohol and Drug Abuse Patient Records regulations: The Federal rules restrict any use of the information to criminally investigate or prosecute any alcohol or drug abuse patient.[facility]In the event this information is protected by the Federal Confidentiality of Alcohol and Drug Abuse Patient Records regulations: The Federal rules restrict any use of the information to criminally investigate or prosecute any alcohol or drug abuse patient.[facility]In the event this information is protected by the Federal Confidentiality of Alcohol and Drug Abuse Patient Records regulations: The Federal rules restrict any use of the information to criminally investigate or prosecute any alcohol or drug abuse patient.[facility]In the event this information is protected by the Federal Confidentiality of Alcohol and Drug Abuse Patient Records regulations: The Federal rules restrict any use of the information to criminally investigate or prosecute any alcohol or drug abuse patient.[facility]In the event this information is protected by the Federal Confidentiality of Alcohol and Drug Abuse Patient Records regulations: The Federal rules restrict any use of the information to criminally investigate or prosecute any alcohol or drug abuse patient.[facility]In the event this information is protected by the Federal Confidentiality of Alcohol and Drug Abuse Patient Records regulations: The Federal rules restrict any use of the information to criminally investigate or prosecute any alcohol or drug abuse patient.[facility]In the event this information is protected by the Federal Confidentiality of Alcohol and Drug Abuse Patient Records regulations: The Federal rules restrict any use of the information to criminally investigate or prosecute any alcohol or drug abuse patient.[facility]In the event this information is protected by the Federal Confidentiality of Alcohol and Drug Abuse Patient Records regulations: The Federal rules restrict any use of the information to criminally investigate or prosecute any alcohol or drug abuse patient.[facility]In the event this information is protected by the Federal Confidentiality of Alcohol and Drug Abuse Patient Records regulations: The Federal rules restrict any use of the information to criminally investigate or prosecute any alcohol or drug abuse patient.[facility]In the event this information is protected by the Federal Confidentiality of Alcohol and Drug Abuse Patient Records regulations: The Federal rules restrict any use of the information to criminally investigate or prosecute any alcohol or drug abuse patient.[facility]In the event this information is protected by the Federal Confidentiality of Alcohol and Drug Abuse Patient Records regulations: The Federal rules restrict any use of the information to criminally investigate or prosecute any alcohol or drug abuse patient.[facility]In the event this information is protected by the Federal Confidentiality of Alcohol and Drug Abuse Patient Records regulations: The Federal rules restrict any use of the information to criminally investigate or prosecute any alcohol or drug abuse patient.[facility]In the event this information is protected by the Federal Confidentiality of Alcohol and Drug Abuse Patient Records regulations: The Federal rules restrict any use of the information to criminally investigate or prosecute any alcohol or drug abuse patient.[facility]In the event this information is protected by the Federal Confidentiality of Alcohol and Drug Abuse Patient Records regulations: The Federal rules restrict any use of the information to criminally investigate or prosecute any alcohol or drug abuse patient.[facility]In the event this information is protected by the Federal Confidentiality of Alcohol and Drug Abuse Patient Records regulations: The Federal rules restrict any use of the information to criminally investigate or prosecute any alcohol or drug abuse patient.[facility]In the event this information is protected by the Federal Confidentiality of Alcohol and Drug Abuse Patient Records regulations: The Federal rules restrict any use of the information to criminally investigate or prosecute any alcohol or drug abuse patient.[facility] the event this information is protected by the Federal Confidentiality of Alcohol and Drug Abuse Patient Records regulations: The Federal rules restrict any use of the information to criminally investigate or prosecute any alcohol or drug abuse patient.[facility]In the event this information is protected by the Federal Confidentiality of Alcohol and Drug Abuse Patient Records regulations: The Federal rules restrict any use of the information to criminally investigate or prosecute any alcohol or drug abuse patient.[facility]In the event this information is protected by the Federal Confidentiality of Alcohol and Drug Abuse Patient Records regulations: The Federal rules restrict any use of the information to criminally investigate or prosecute any alcohol or drug abuse patient.[facility]In the event this information is protected by the Federal Confidentiality of Alcohol and Drug Abuse Patient Records regulations: The Federal rules restrict any use of the information to criminally investigate or prosecute any alcohol or drug abuse patient.[facility]In the event this information is protected by the Federal Confidentiality of Alcohol and Drug Abuse Patient Records regulations: The Federal rules restrict any use of the information to criminally investigate or prosecute any alcohol or drug abuse patient.[facility]In the event this information is protected by the Federal Confidentiality of Alcohol and Drug Abuse Patient Records regulations: The Federal rules restrict any use of the information to criminally investigate or prosecute any alcohol or drug abuse patient.[facility]In the event this information is protected by the Federal Confidentiality of Alcohol and Drug Abuse Patient Records regulations: The Federal rules restrict any use of the information to criminally investigate or prosecute any alcohol or drug abuse patient.[facility]In the event this information is protected by the Federal Confidentiality of Alcohol and Drug Abuse Patient Records regulations: The Federal rules restrict any use of the information to criminally investigate or prosecute any alcohol or drug abuse patient.[facility]In the event this information is protected by the Federal Confidentiality of Alcohol and Drug Abuse Patient Records regulations: The Federal rules restrict any use of the information to criminally investigate or prosecute any alcohol or drug abuse patient.[facility]In the event this information is protected by the Federal Confidentiality of Alcohol and Drug Abuse Patient Records regulations: The Federal rules restrict any use of the information to criminally investigate or prosecute any alcohol or drug abuse patient.[facility]In the event this information is protected by the Federal Confidentiality of Alcohol and Drug Abuse Patient Records regulations: The Federal rules restrict any use of the information to criminally investigate or prosecute any alcohol or drug abuse patient.[facility]In the event this information is protected by the Federal Confidentiality of Alcohol and Drug Abuse Patient Records regulations: The Federal rules restrict any use of the information to criminally investigate or prosecute any alcohol or drug abuse patient.[facility] CenterIn the event this information is protected by the Federal Confidentiality of Alcohol and Drug Abuse Patient Records regulations: The Federal rules restrict any use of the information to criminally investigate or prosecute any alcohol or drug abuse patient.[facility] CenterIn the event this information is protected by the Federal Confidentiality of Alcohol and Drug Abuse Patient Records regulations: The Federal rules restrict any use of the information to criminally investigate or prosecute any alcohol or drug abuse patient.[facility] CenterIn the event this information is protected by the Federal Confidentiality of Alcohol and Drug Abuse Patient Records regulations: The Federal rules restrict any use of the information to criminally investigate or prosecute any alcohol or drug abuse patient.[facility] CenterIn the event this information is protected by the Federal Confidentiality of Alcohol and Drug Abuse Patient Records regulations: The Federal rules restrict any use of the information to criminally investigate or prosecute any alcohol or drug abuse patient.[facility] [place] [facility] CenterIn the event this information is protected by the Federal Confidentiality of Alcohol and Drug Abuse Patient Records regulations: The Federal rules restrict any use of the information to criminally investigate or prosecute any alcohol or drug abuse patient.[facility] CenterIn the event this information is protected by the Federal Confidentiality of Alcohol and Drug Abuse Patient Records regulations: The Federal rules restrict any use of the information to criminally investigate or prosecute any alcohol or drug abuse patient.[facility] [place] [facility] CenterIn the event this information is protected by the Federal Confidentiality of Alcohol and Drug Abuse Patient Records regulations: The Federal rules restrict any use of the information to criminally investigate or prosecute any alcohol or drug abuse patient.[facility] CenterIn the event this information is protected by the Federal Confidentiality of Alcohol and Drug Abuse Patient Records regulations: The Federal rules restrict any use of the information to criminally investigate or prosecute any alcohol or drug abuse patient.[facility] [place] [facility] CenterIn the event this information is protected by the Federal Confidentiality of Alcohol and Drug Abuse Patient Records regulations: The Federal rules restrict any use of the information to criminally investigate or prosecute any alcohol or drug abuse patient.[facility] CenterIn the event this information is protected by the Federal Confidentiality of Alcohol and Drug Abuse Patient Records regulations: The Federal rules restrict any use of the information to criminally investigate or prosecute any alcohol or drug abuse patient.[facility] [place] [facility] CenterIn the event this information is protected by the Federal Confidentiality of Alcohol and Drug Abuse Patient Records regulations: The Federal rules restrict any use of the information to criminally investigate or prosecute any alcohol or drug abuse patient.[facility] [place] [facility] CenterIn the event this information is protected by the Federal Confidentiality of Alcohol and Drug Abuse Patient Records regulations: The Federal rules restrict any use of the information to criminally investigate or prosecute any alcohol or drug abuse patient.[facility] [place] [facility] CenterIn the event this information is protected by the Federal Confidentiality of Alcohol and Drug Abuse Patient Records regulations: The Federal rules restrict any use of the information to criminally investigate or prosecute any alcohol or drug abuse patient.[facility] [place] [facility] CenterIn the event this information is protected by the Federal Confidentiality of Alcohol and Drug Abuse Patient Records regulations: The Federal rules restrict any use of the information to criminally investigate or prosecute any alcohol or drug abuse patient.[facility] CenterIn the event this information is protected by the Federal Confidentiality of Alcohol and Drug Abuse Patient Records regulations: The Federal rules restrict any use of the information to criminally investigate or prosecute any alcohol or drug abuse patient.[facility] [place] [facility] CenterIn the event this information is protected by the Federal Confidentiality of Alcohol and Drug Abuse Patient Records regulations: The Federal rules restrict any use of the information to criminally investigate or prosecute any alcohol or drug abuse patient.[facility] [place] [facility] CenterIn the event this information is protected by the Federal Confidentiality of Alcohol and Drug Abuse Patient Records regulations: The Federal rules restrict any use of the information to criminally investigate or prosecute any alcohol or drug abuse patient.[facility] Reason for Visit (unrecogniz ed section and content) Reason Comments Anemia Specialty Diagnoses / Procedures Referred By Contac t Referred To Contact Diagnoses Other iron deficiency anemia Iron malabsorption (HCC) Procedures IRON SUCROSE INJECTION PER 1 MG Saige Wallis APRN.RADIOLOGY CLERK [address] [place] [address] Phone: tel: fax: Hematology/Oncology [address] [place] [address] Phone: tel: fax: Referral ID Status Reason Start Date Expiration Date Visits Requested Visits Authorized [id number] Authorized Patient Cleared - Admin/Chairm an/Director advise to proceed or did not respond 11/23/2024 01/21/2025 1 5 Reason Comments Non-Chemotherapy Treatment Specialty Diagnoses / Procedures Referred By Contac t Referred To Contact Diagnoses Other iron deficiency anemia Saige Wallis APRN.RADIOLOGY CLERK [address] [place] [address] [facility] [address] [place] [address] Referral ID Status Reason Start Date Expiration [...] Exam Specialty Diagnoses / Procedures Referred By Contac t Referred To Contact Gynecology Diagnoses Screening for cervical cancer Procedures CONSULT TO GYNECOLOGY OFFICE/OUTPATIENT [facility] MDM 60-74 MINUTES Ailyn Carson PA-C [address] [place] [address] Referral ID Status Reason Start Date Expiration Date V isits Requested Visits Authorized [id number] Closed PCP Requested Referral Auto-Generated Referral 05/21/2022 [...] Specialty Diagnoses / Procedures Referred By Syd davison Referred To Contact Diagnoses Other iron deficiency anemia Iron malabsorption Lavelle Duong, DO [address] [place] [address] [facility] [address] [place] [address] Referral ID Status Reason Start Date Expiration Date V isits Requested Visits Authorized [id number] Authorized 10/23/2022 01/21/2023 99 99 Reason Onset Date Comments Refill Request 11/19/2022 Reason Comments AVS 12/11/22 Reason Onset Date Comments Refill Request 2023 Reason Onset Date Comments Refill Request 02/15/2023 Reason Onset Date Comments Refill Request 03/08/2023 Reason Onset Date Comments Refill Request 07/12/2023 Reason Comments Cough Chest congestion, SO B, pressure and pain in head and ears, productive cough x 1 week Reason Onset Date Comments Refill Request 07/28/2023 Reason Comments Follow Up Medication follow up Reason Onset Date Comments Refill Request 08/23/2023 Reason Onset Date Comments Refill Request 08/30/2023 Reason Onset Date Comments Refill Request 09/14/2023 Reason Comments Cough Chest congestion, he adache, sore throat, sinus congestion, x 1 week and getting worse Reason Comments Medication Problem Reason Comments Cough X2 weeks Reason Onset Date Comments Refill Request 10/23/2023 Reason Comments exhaustion Reason Comments Abstract PLQ eye exam Reason Onset Date Comments Refill Request 09/30/2024 Reason Comments Established Patient 147/80 Reason Comments Radio Gen RMP Radiology Service Pr ogress NotePATIENT NAME: Corinna CarrMRN: [id number] OF SERVICE: November 20, 2024TIME: 2:24 PMPATIENT IDENTITY VERIFICATION COMPLETED USING TWO (2) IDENTIFIERS: Name and Date of confirmed by patient verbally.FALL SCREENING: Has the patient had 2 falls in the last year or 1 fall with injury or currently using an Ambulatory Assistive Device (Walker, Cane, Wheelchair, Crutches, etc.)? NoPATIENT GENDER DATA: Assigned female at . status: Specialty Diagnoses / Procedures Referred By Contac t Referred To Contact XR IMAGING Diagnoses Low back pain, unspecified back pain laterality, unspecified chronicity, unspecified whether sciatica present Procedures XR LUMBAR GENERAL 3V AP/LAT/L5-S1 RADEX SPINE LUMBOSACRAL 2/3 VIEWS Tyler Dixon, PHOTOGRAPHER'S MODEL.RADIOLOGY CLERK [address] [place] [address] Phone: tel: fax: [place] [phone] Referral ID Status Reason Start Date Expiration Date V isits Requested Visits Authorized [id number] Closed Auto-Generate d Referral 11/20/2024 12/20/2025 1 1 Reason Comments Pain LBP Specialty Diagnoses / Procedures Referred By Contac t Referred To Contact Spine Ansted Diagnoses Low back pain, unspecified back pain laterality, unspecified chronicity, unspecified whether sciatica present Procedures OFFICE/OUTPATIENT [facility] 60 MINUTES Tyler Dixon, PHOTOGRAPHER'S MODEL.RADIOLOGY CLERK [address] [place] [address] Phone: tel: fax: Referral ID Status Reason Start Date Expiration Date V isits Requested Visits Authorized [id number] Closed PCP Requested Referral 11/20/2024 11/20/2025 1 1 Care Teams (unrecognized sec tion and content) Director Of Industrial Relations Relationship Specialty Start Date End Date Jaki Verdugo MD [address] [place], [place] [address] PCP - General Family Practice 03/09/15 Director Of Industrial Relations Relationship Specialty Start Date End Date Jaki Verdugo MD [address] [place] [address] PCP - General Family Practice 03/09/15 Director Of Industrial Relations Relationship Specialty Start Date End Date Jaki Verdugo MD [address] [place] [address] PCP - General Family Practice 03/09/15 Director Of Industrial Relations Relationship Specialty Start Date End Date Jaki Verdugo MD [address] [place] [address] PCP - General Family Practice 03/09/15 Director Of Industrial Relations Relationship Specialty Start Date End Date Jaki Verdugo MD [address] [place] [address] PCP - General Family Practice 03/09/15 Director Of Industrial Relations Relationship Specialty Start Date End Date Jaki Verdugo MD [address] [place] [address] PCP - General Family Practice 03/09/15 Director Of Industrial Relations Relationship Specialty Start Date End Date Jaki Verdugo MD [address] [place] [address] PCP - General Family Practice 03/09/15 Director Of Industrial Relations Relationship Specialty Start Date End Date Jaki Verdugo MD [address] [place] [address] PCP - General Family Practice 03/09/15 Director Of Industrial Relations Relationship Specialty Start Date End Date Jaki Verdugo MD [address] [place] [address] PCP - General Family Practice 03/09/15 Director Of Industrial Relations Relationship Specialty Start Date End Date Jaki Verdugo MD [address] [place] [address] PCP - General Family Practice 03/09/15 Director Of Industrial Relations Relationship Specialty Start Date End Date Jaki Verdugo MD [address] [place] [address] PCP - General Family Practice 03/09/15 Director Of Industrial Relations Relationship Specialty Start Date End Date Jaki Verdugo MD [address] [place] [address] PCP - General Family Practice 03/09/15 Director Of Industrial Relations Relationship Specialty Start Date End Date Jaki Verdugo MD [address] [place] [address] PCP - General Family Practice 03/09/15 Director Of Industrial Relations Relationship Specialty Start Date End Date Jaki Verdugo MD [address] [place] [address] PCP - General Family Practice 03/09/15 Director Of Industrial Relations Relationship Specialty Start Date End Date Jaki Verdugo MD [address] [place] [address] PCP - General Family Practice 03/09/15 Director Of Industrial Relations Relationship Specialty Start Date End Date Jaki Verdugo MD [address] [place] [address] PCP - General Family Practice 03/09/15 Director Of Industrial Relations Relationship Specialty Start Date End Date Jaki Verdugo MD [address] [place] [address] PCP - General Family Practice 03/09/15 Director Of Industrial Relations Relationship Specialty Start Date End Date Jaki Verdugo MD [address] [place] [address] PCP - General Family Practice 03/09/15 Director Of Industrial Relations Relationship Specialty Start Date End Date Jaki Verdugo MD [address] [place] [address] PCP - General Family Practice 03/09/15 Director Of Industrial Relations Relationship Specialty Start Date End Date Ailyn Carson PA-C [address] [place] [address] PCP - General Family Medicine 01/01/22 Director Of Industrial Relations Relationship Specialty Start Date End Date Ailyn Carson PA-C [address] [place] [address] PCP - General Family Medicine 01/01/22 Director Of Industrial Relations Relationship Specialty Start Date End Date Ailyn Carson PA-C [address] [place] [address] PCP - General Family Medicine 01/01/22 Director Of Industrial Relations Relationship Specialty Start Date End Date Ailyn Carson PA-C [address] [place] [address] PCP - General Family Medicine 01/01/22 Director Of Industrial Relations Relationship Specialty Start Date End Date Ailyn Carson PA-C [address] [place] [address] PCP - General Family Medicine 01/01/22 Director Of Industrial Relations Relationship Specialty Start Date End Date Ailyn Carson PA-C [address] [place] [address] PCP - General Family Medicine 01/01/22 Director Of Industrial Relations Relationship Specialty Start Date End Date Ailyn Carson PA-C [address] [place] [address] PCP - General Family Medicine 01/01/22 Director Of Industrial Relations Relationship Specialty Start Date End Date Ailyn Carson PA-C [address] [place] [address] PCP - General Family Medicine 01/01/22 Director Of Industrial Relations Relationship Specialty Start Date End Date Ailyn Carson PA-C [address] [place] [address] PCP - General Family Medicine 01/01/22 Director Of Industrial Relations Relationship Specialty Start Date End Date Ailyn Carson PA-C [address] [place] [address] PCP - General Family Medicine 01/01/22 Director Of Industrial Relations Relationship Specialty Start Date End Date Ailyn Carson PA-C [address] [place] [address] PCP - General Family Medicine 01/01/22 Director Of Industrial Relations Relationship Specialty Start Date End Date Ailyn Carson PA-C [address] [place] [address] PCP - General Family Medicine 01/01/22 Director Of Industrial Relations Relationship Specialty Start Date End Date Ailyn Carson PA-C [address] [place] [address] PCP - General Family Medicine 01/01/22 Director Of Industrial Relations Relationship Specialty Start Date End Date Ailyn Carson PA-C [address] [place] [address] PCP - General Family Medicine 01/01/22 Director Of Industrial Relations Relationship Specialty Start Date End Date Jaki Verdugo MD [address] [place] [address] PCP - General Family Medicine 03/09/15 12/31/21 Ailyn Carson PA-C [address] [place] [address] PCP - General Family Medicine 01/01/22 Team Status: Active Member Role Status Dates Dr. Jaki Verdugo MD Family Provider Active Dr. Jaki Verdugo MD Primary Care Provider Active Team Status: Inactive Member Role Status Dates Dr. Jaki Verdugo MD Primary Care Provider Active Michael CUEVA PA-C Attending Provider, Referring Al rowley Active Director Of Industrial Relations Relationship Specialty Start Date End Date Ailyn Carson PA-C [address] [place] [address] PCP - General Family Medicine 01/01/22 Director Of Industrial Relations Relationship Specialty Start Date End Date Ailyn Carson PA-C [address] [place] [address] PCP - General Family Medicine 01/01/22 Director Of Industrial Relations Relationship Specialty Start Date End Date Ailyn Carson PA-C [address] [place] [address] PCP - General Family Medicine 01/01/22 Director Of Industrial Relations Relationship Specialty Start Date End Date Ailyn Carson PA-C [address] [place] [address] PCP - General Family Medicine 01/01/22 Lavelle Duong DO [address] [place] [address] Hematology/Oncology 10/28/22 Director Of Industrial Relations Relationship Specialty Start Date End Date Ailyn Carson PA-C [address] [place] [address] PCP - General Family Medicine 01/01/22 Lavelle Duong DO [address] [place] [address] Hematology/Oncology 10/28/22 Director Of Industrial Relations Relationship Specialty Start Date End Date Ailyn Carson PA-C [address] [place] [address] PCP - General Family Medicine 01/01/22 Lavelle Duong DO [address] [facility] [place] [address] Hematology/Oncology 10/28/22 Director Of Industrial Relations Relationship Specialty Start Date End Date Ailyn Carson PA-C [address] [place] [address] PCP - General Family Medicine 01/01/22 Lavelle Duong DO [address] [place] [address] Hematology/Oncology 10/28/22 Director Of Industrial Relations Relationship Specialty Start Date End Date Ailyn Carson PA-C [address] [place] [address] PCP - General Family Medicine 01/01/22 Lavelle Duong DO [address] [place] [address] Hematology/Oncology 10/28/22 Director Of Industrial Relations Relationship Specialty Start Date End Date Ailyn Carson PA-C [address] [place] [address] PCP - General Family Medicine 01/01/22 Lavelle Duong DO [address] [place] [address] Hematology/Oncology 10/28/22 Director Of Industrial Relations Relationship Specialty Start Date End Date Ailyn Carson PA-C [address] [place] [address] PCP - General Family Medicine 01/01/22 Lavelle Duong DO [address] [place] [address] Hematology/Oncology 10/28/22 Director Of Industrial Relations Relationship Specialty Start Date End Date Ailyn Carson PA-C [address] [facility] [place] [address] PCP - General Family Medicine 01/01/22 Lavelle Duong DO [address] [facility] [address] Hematology/Oncology 10/28/22 Team Status: Inactive Member Role Status Dates Dr. Jaki Verdugo MD Primary Care Provider Active Dr. Darion Morse DO Emergency Provider Active Director Of Industrial Relations Relationship Specialty Start Date End Date Ailyn Carson PA-C [address] [place] [address] PCP - General Family Medicine 01/01/22 Lavelle Duong DO [address] [facility] [place] [address] Hematology/Oncology 10/28/22 Director Of Industrial Relations Relationship Specialty Start Date End Date Ailyn Carson PA-C [address] [facility] [place] [address] PCP - General Family Medicine 01/01/22 Lavelle Duong DO [address] [facility] [place] [address] Hematology/Oncology 10/28/22 Director Of Industrial Relations Relationship Specialty Start Date End Date Ailyn Carson PA-C [address] [place] [address] PCP - General Family Medicine 01/01/22 Lavelle Duong DO [address] [place] [address] Hematology/Oncology 10/28/22 Director Of Industrial Relations Relationship Specialty Start Date End Date Ailyn Carson PA-C [address] [place] [address] PCP - General Family Medicine 01/01/22 Lavelle Duong DO [address] [place] [address] Hematology/Oncology 10/28/22 Director Of Industrial Relations Relationship Specialty Start Date End Date Ailyn Carson PA-C [address] [place] [address] PCP - General Family Medicine 01/01/22 Lavelle Duong DO [address] [place] [address] Hematology/Oncology 10/28/22 Director Of Industrial Relations Relationship Specialty Start Date End Date Ailyn Carson PA-C [address] [place] [address] PCP - General Family Medicine 01/01/22 Lavelle Duong DO [address] [place] [address] Hematology/Oncology 10/28/22 Director Of Industrial Relations Relationship Specialty Start Date End Date Ailyn Carson PA-C [address] [place] [address] PCP - General Family Medicine 01/01/22 Lavelle Duong DO [address] [place] [address] Hematology/Oncology 10/28/22 Director Of Industrial Relations Relationship Specialty Start Date End Date Ailyn Carson PA-C [address] [place] [address] PCP - General Family Medicine 01/01/22 Lavelle Duong DO [address] [place] [address] Hematology/Oncology 10/28/22 Director Of Industrial Relations Relationship Specialty Start Date End Date Ailyn Carson PA-C [address] [place] [address] PCP - General Family Medicine 01/01/22 Lavelle Duong DO [address] [place] [address] Hematology/Oncology 10/28/22 Director Of Industrial Relations Relationship Specialty Start Date End Date Ailyn Carson PA-C [address] [place] [address] PCP - General Family Medicine 01/01/22 Lavelle Duong DO [address] [facility] [place] [address] Hematology/Oncology 10/28/22 Director Of Industrial Relations Relationship Specialty Start Date End Date Ailyn Carson PA-C [address] [place] [address] PCP - General Family Medicine 01/01/22 Lavelle Duong DO [address] [place], [place] [address] Hematology/Oncology 10/28/22 Director Of Industrial Relations Relationship Specialty Start Date End Date Ailyn Carson PA-C [address] [place], [place] [address] PCP - General Family Medicine 01/01/22 Director Of Industrial Relations Relationship Specialty Start Date End Date Ailyn Carson PA-C [address] [place], [place] [id number] PCP - General Family Medicine 01/01/22 Director Of Industrial Relations Relationship Specialty Start Date End Date Jaki Verdugo MD [address] [place], [place] [id number] PCP - General Family Medicine 03/09/15 12/31/21 Director Of Industrial Relations Relationship Specialty Start Date End Date Yoko Erazo CNP [address] [facility] [facility] [id number] [place] [address] PCP - General Family Medicine 01/21/24 Lavelle Duong DO [address] [place] [address] Hematology/Oncology 10/28/22 Director Of Industrial Relations Relationship Specialty Start Date End Date Yoko Erazo CNP [address] [facility] [facility] [id number] [place] [address] PCP - General Family Medicine 01/21/24 Lavelle Duong DO [address] [place] [address] Hematology/Oncology 10/28/22 Director Of Industrial Relations Relationship Specialty Start Date End Date Randall Carson PA-C PCP - General Family Medicine 01/01/22 01/20/24 Yoko Erazo CNP [id number] [place], [place] [address] PCP - General Family Medicine 01/21/24 Lavelle Duong DO [address] [place] [address] Hematology/Oncology 10/28/22 Director Of Industrial Relations Relationship Specialty Start Date End Date Yoko Erazo CNP [address] [facility] [id number] [place], [place] [id number] PCP - General Family Medicine 01/21/24 Lavelle Duong DO [address] [place] [address] Hematology/Oncology 10/28/22 Director Of Industrial Relations Relationship Specialty Start Date End Date Yoko Erazo CNP [address] [facility] [id number] [place], [place] [address] PCP - General Family Medicine 01/21/24 Lavelle Duong DO [address] [place] [address] Hematology/Oncology 10/28/22 Director Of Industrial Relations Relationship Specialty Start Date End Date Yoko Erazo CNP [address] [facility] [id number] [place] [address] PCP - General Family Medicine 01/21/24 Lavelle Duong DO [address] [place] [address] Hematology/Oncology 10/28/22 Director Of Industrial Relations Relationship Specialty Start Date End Date Yoko Erazo CNP [address] [id number] [place] [address] PCP - General Family Medicine 01/21/24 Lavelle Duong DO [address] [place] [address] Hematology/Oncology 10/28/22 Director Of Industrial Relations Relationship Specialty Start Date End Date Yoko Erazo CNP [id number] [place] [address] PCP - General Family Medicine 01/21/24 Lavelle Duong DO [address] [place] [address] Hematology/Oncology 10/28/22 Team Status: Active Member Role Status Dates MICKY Guaman Primary Care Provider Active Team Status: Inactive Member Role Status Dates Dr. Davey Egan , Emergency Provider Active Start: May 07, 2024 End: May 15, 2024 MICKY Guaman Primary Care Provider Active Start: May 07, 2024 End: May 15, 2024 Dr. Claude Nayak , DO Admit Provider Active Start: May 07, 2024 End: May 15, 2024 Dr. Claude Nayak , Other Provider Active Start: May 07, 2024 End: May 15, 2024 Dr. Desirae Chen , Other Provider Active Start : May 07, 2024 End: May 15, 2024 Dr. Brigida Lance MD Attending Provider Active Start: May 07, 2024 End: May 15, 2024 Dr. Randall Osborne , DO Other Provider Active S tart: May 07, 2024 End: May 15, 2024 Team Status: Active Member Role Status Dates Dr. Davey Egan DO Emergency Provider Active Start: May 09, 2024 Yokoemmanuel Amaroer , SHOW HOST OR HOSTESS-C Primary Care Provider Active Start: May 09, 2024 Dr. Claude Nayak , DO Admit Provider Active Start: May 09, 2024 Dr. Cluade Nayak , DO Other Provider Active Start: May 09, 2024 Dr. Desirae Chen , DO Other Provider Active Start : May 09, 2024 Dr. Randall Osborne , Attending Provider Active Start: May 09, 2024 Dr. Randall Osborne , DO Other Provider Active S tart: May 09, 2024 Team Status: Active Member Role Status Dates Dr. Davey Egan , Emergency Provider Active Start: May 10, 2024 Yoko Erazo , SHOW HOST OR HOSTESS-C Primary Care Provider Active Start: May 10, 2024 Dr. Claude Nayak , DO Admit Provider Active Start: May 10, 2024 Dr. Claude Nayak , DO Other Provider Active Start: May 10, 2024 Dr. Desirae Chen , DO Other Provider Active Start : May 10, 2024 Dr. Randall Osborne , DO Attending Provider Active Start: May 10, 2024 Dr. Randall Osborne , DO Other Provider Active S tart: May 10, 2024 Team Status: Active Member Role Status Dates Dr. Davey Egan DO Emergency Provider Active Start: May 11, 2024 Yoko Erazo , SHOW HOST OR HOSTESS-C Primary Care Provider Active Start: May 11, 2024 Dr. Claude Nayak , DO Admit Provider Active Start: May 11, 2024 Dr. Claude Nayak , Other Provider Active Start: May 11, 2024 Dr. Desirae Chen , Other Provider Active Start : May 11, 2024 Dr. Brigida Lance MD Attending Provider Active Start: May 11, 2024 Dr. Brigida Lance MD Other Provider Active St art: May 11, 2024 Dr. Randall Osborne , DO Other Provider Active S tart: May 11, 2024 Team Status: Active Member Role Status Dates Dr. Davey Egan DO Emergency Provider Active Start: May 12, 2024 Yokoemmanuel Erazo , SHOW HOST OR HOSTESS-C Primary Care Provider Active Start: May 12, 2024 Dr. Claude Nayak , DO Admit Provider Active Start: May 12, 2024 Dr. Claude Nayak , DO Other Provider Active Start: May 12, 2024 Dr. Desirae Chen , DO Other Provider Active Start : May 12, 2024 Dr. Brigida Lance MD Attending Provider Active Start: May 12, 2024 Dr. Brigida Lance MD Other Provider Active St art: May 12, 2024 Dr. Randall Osborne , DO Other Provider Active S tart: May 12, 2024 Team Status: Active Member Role Status Dates Dr. Davey Egan , Emergency Provider Active Start: May 13, 2024 Yoko Erazo SHOW HOST OR HOSTESS-C Primary Care Provider Active Start: May 13, 2024 Dr. Claude Nayak , Admit Provider Active Start: May 13, 2024 Dr. Claude Nayak , DO Other Provider Active Start: May 13, 2024 Dr. Desirae Chen , DO Other Provider Active Start : May 13, 2024 Dr. Brigida Lance MD Attending Provider Active Start: May 13, 2024 Dr. Brigida Lance MD Other Provider Active St art: May 13, 2024 Dr. Randall Osborne , DO Other Provider Active S tart: May 13, 2024 Team Status: Active Member Role Status Dates Dr. Davey Egan DO Emergency Provider Active Start: May 14, 2024 Yoko Erazo SHOW HOST OR HOSTESS-C Primary Care Provider Active Start: May 14, 2024 Dr. Claude Nayak DO Admit Provider Active Start: May 14, 2024 Dr. Claude Nayak , DO Other Provider Active Start: May 14, 2024 Dr. Desirae Chen , DO Other Provider Active Start : May 14, 2024 Dr. Brigida Lance MD Attending Provider Active Start: May 14, 2024 Dr. Brigida Lance MD Other Provider Active St art: May 14, 2024 Dr. Randall Osborne , DO Other Provider Active S tart: May 14, 2024 Team Status: Active Member Role Status Dates Dr. Davey Egan DO Emergency Provider Active Start: May 15, 2024 Yoko Erazo SHOW HOST OR HOSTESS-C Primary Care Provider Active Start: May 15, 2024 Dr. Claude Nayak , DO Admit Provider Active Start: May 15, 2024 Dr. Claude Nayak , DO Other Provider Active Start: May 15, 2024 Dr. Desirae Chen DO Other Provider Active Start : May 15, 2024 Dr. Brigida Lance MD Attending Provider Active Start: May 15, 2024 Dr. Brigida Lance MD Other Provider Active St art: May 15, 2024 Dr. Randall Osborne DO Other Provider Active S tart: May 15, 2024 Team Status: Active Member Role Status Dates Yoko Erazo NP-Juan Primary Care Provider Active Start: September 01, 2024 Dr. Hiram Tafoya MD Attending Provider Active S tart: September 01, 2024 Dr. Hiram Tafoya MD Referring Provider Active S tart: September 01, 2024 Team Status: Inactive Member Role Status Dates Yoko Erazo NP-Juan Primary Care Provider Active Start: September 01, 2024 End: September 01, 2024 MICKY Guaman Attending Provider Active S tart: September 01, 2024 End: September 01, 2024 MICKY Guaman Referring Provider Active S tart: September 01, 2024 End: September 01, 2024 Director Of Industrial Relations Relationship Specialty Start Date End Date Yoko Erazo CNP [address] [facility] [facility] [id number] [place] [address] PCP - General Family Medicine 01/21/24 Lavelle Duong DO [address] [place], [place] [id number] Hematology/Oncology 10/28/22 Director Of Industrial Relations Relationship Specialty Start Date End Date Yoko Erazo CNP [address] [facility] [id number] [place] [address] PCP - General Family Medicine 01/21/24 Lavelle Duong DO [address] [place] [address] Hematology/Oncology 10/28/22 Director Of Industrial Relations Relationship Specialty Start Date End Date Yoko Erazo CNP [address] [facility] [id number] [place] [address] PCP - General Family Medicine 01/21/24 Lavelle Duong DO [address] [place] [address] Hematology/Oncology 10/28/22 Director Of Industrial Relations Relationship Specialty Start Date End Date Yoko Erazo CNP [address] [facility] [id number] [place] [address] PCP - General Family Medicine 01/21/24 Lavelle Duong DO [address] [place] [place] [address] Hematology/Oncology 10/28/22 Director Of Industrial Relations Relationship Specialty Start Date End Date Yoko Erazo CNP [address] [facility] [id number] [place] [address] PCP - General Family Medicine 01/21/24 Lavelle Duong DO [address] [place] [address] Hematology/Oncology 10/28/22 Director Of Industrial Relations Relationship Specialty Start Date End Date Yoko Erazo CNP [address] [facility] [id number] [place] [address] PCP - General Family Medicine 01/21/24 Lavelle Duong DO [address] [place] [address] Hematology/Oncology 10/28/22 Director Of Industrial Relations Relationship Specialty Start Date End Date Yoko Erazo CNP [id number] [place] [address] PCP - General Family Medicine 01/21/24 Lavelle Duong DO [address] [place] [address] Hematology/Oncology 10/28/22 Team Status: Active Member Role/Relationship Status Dates Yoko Erazo NP-C Primary care physician Active Team Status: Inactive Member Role/Relationship Status Dates Yoko Erazo NP-Juan Primary care physician Active Start: October 15, 2024 End: October 15, 2024 Dr. Hiram Tafoya MD Attending physician Active Start: October 15, 2024 End: October 15, 2024 Dr. Hiram Tafoya MD Referring Provider Active S tart: October 15, 2024 End: October 15, 2024 Team Status: Active Member Role/Relationship Status Dates Yoko Erazo NP-Juan Primary care physician Active Start: November 30, 2024 Yoko Erazo NP-Juan Referring Provider Active S tart: November 30, 2024 Dr. Jose Vanessa MD Attending physician Active Start: November 30, 2024 Team Status: Active Member Role/Relationship Status Dates Yoko Erazo NP-C Primary care physician Active Start: November 30, 2024 Yoko Erazo NP-Juan Attending physician Active Start: November 30, 2024 Yoko Erazo NP-Juan Referring Provider Active S tart: November 30, 2024 Goals (unrecognized section and content) Goals may be documented in a n alternate sectionGoals may be documented in an alternate sectionGoals may be documented in an alternate section No data available for this sectionGoals may be documented in an alternate section FOR RECORDS PERTAINING TO PATIENTS WHO ARE [...] BE BASED ON THE PRIMARY CLINICAL RECORDS. [facility] provides no warranty or guarantee of the accuracy or completeness of information in this document.
--- NOTE | 2025-04-07 12:58 | STRESSREP_ITS ---
Stress Test Report Date: 04/06/2025 Procedure: Pharmacologic stress nuclear imaging study Indications: Abnormal ECG Consent: Per the patient Procedure: The patient underwent pharmacologic (Regadenoson 0.4mg ) evaluation with a peak heart rate of 86 beats per minute (56%predicted maximal heart rate) and a peak blood pressure of 104/56 mmHg. The baseline ECG demonstrated sinus rhythm with first-degree AV block and right bundle branch block. The peak pharmacologic ECG did not show any ischemic changes. There were no cardiac dysrhythmias pretest, during pharmacologic infusion, or recovery. There was no complaint of chest discomfort during pharmacologic infusion or recovery. The patient was injected with 14.1 millicuries of technetium 99m Cardiolite and subsequently rest SPECT Cardiolite nuclear imaging was obtained in the horizontal long, vertical long, and short axis views. The patient underwent pharmacologic (Regadenoson) evaluation. The patient was injected with 44.3 millicuries of technetium 99m Cardiolite and subsequently stress SPECT Cardiolite nuclear imaging was obtained in the horizontal long, vertical long, and short axis views. A gated Cardiolite study at peak stress was obtained. The examination was stopped secondary to completion of protocol. Rest and stress SPECT Cardiolite nuclear imaging status post realignment, normalization, and attenuation correction demonstrate no fixed or reversible perfusion defects. There is end systolic thickening and brightening. The gated Cardiolite study demonstrates myocardial thickening and inward wall motion. The reported LVEF is 65%. Impression: 1. Pharmacologic (Regadenoson) evaluation 2. Peak pharmacologic ECG with no ischemic changes. 3. There were no cardiac dysrhythmias pretest, during pharmacologic infusion, or recovery. 5. Rest and stress SPECT Cardiolite nuclear imaging demonstrate relative uniform tracer uptake and myocardial perfusion appearing within normal limits. 6. The gated Cardiolite study reports an LVEF of 65%. This note was generated with [employer] software. It may contain incorrect words, spelling, and punctuation that were not noted in checking the note before signing.
== END | disposition home or self-care (01) ==
LOC: CVS 07:34
PROVIDERS: PCP Registered Nurse; Referring Provider Internal Medicine Cardiovascular Disease; Visit Provider Internal Medicine Cardiovascular Disease
DX: R07.9 Chest pain, unspecified (principal); M32.9 Systemic lupus erythematosus, unspecified; E11.9 Type 2 diabetes mellitus without complications; R06.02 Shortness of breath
CPT/HCPCS: 78452; 93017; A9500; A4216; J2785